=== PATIENT | female | born 1955 | race Caucasian/White ===

== ENCOUNTER 2018-06-09 06:42 | Day surgery (SDC) | payer OTHER ==
--- NOTE | 2018-06-06 11:07 | RAD REPORT ---
EXAM DESCRIPTION: RAD - Chest Pa And Lat (2 Views) - 06/06/2018 11:01 am CLINICAL HISTORY: preop Chest pain. COMPARISON: CHEST SINGLE VIEW dated 11/17/2012; CHEST SINGLE VIEW dated 06/15/2010; CHEST PA AND LAT 2 VIEW dated 06/17/2009 FINDINGS: The lungs are mildly hyperexpanded compatible with COPD. The heart is normal in size. No d isplaced fractures. Hardware plate is present in the cervical spine. IMPRESSION: COPD.
[2018-06-06 11:34] LABS: Hematocrit 39.1 % (36.0-45.0); RBC Red Blood Cell Count 4.58 M/uL (3.86-4.86)
[2018-06-06 11:35] LABS: Absolute Lymphocytes (CBC) 1.4 K/uL (0.7-4.9); Absolute Monocytes 0.6 K/uL (0.1-1.3); Absolute Neutrophil 3.2 K/uL (1.8-8.0); Eosinophils % 2.4 % (0-4.4); Lymphocytes % 26.3 % (15.3-44.8); MPV 8.5 fL (7.6-11.3); Monocytes % 11.6 % (3.3-12.3)
[2018-06-06 11:39] LABS: Protime INR 0.97
[2018-06-06 11:51] LABS: Potassium 4.4 mmol/L (3.5-5.1)
--- NOTE | 2018-06-07 13:58 | EKG ---
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
[2018-06-09] MEDS ORDERED: HEPA 1000U/500MLS 2,000 UNIT/1,000 ML BAG IV ONE (07:02)
[2018-06-09] MEDS ORDERED: LIDOCAINE 1% MPF 5 ML VIAL ONE (07:02)
[2018-06-09] MEDS ORDERED: NA CHLORIDE 0.9% 500 ML ONE (07:22)
[2018-06-09] MEDS ORDERED: MIDAZOLAM HCL 2 MG/2 ML INJ ONE ×2 (07:51→07:57)
[2018-06-09] MEDS ORDERED: ATROPINE SULF 1 MG/10 ML SYR IV ONE (07:52)
[2018-06-09] MEDS ORDERED: NA CHLORIDE 0.9% 0 ML ONE (07:52)
[2018-06-09] MEDS ORDERED: FENTANYL CITR 100 MCG/2 ML ONE (07:52)
[2018-06-09] MEDS ORDERED: HEPARIN 5000 UNIT/ML 1 ML VIAL ONE (08:32)
[2018-06-09] MEDS ORDERED: PRASUGREL (EFFIENT) 10 MG TAB ONE (08:59)
[2018-06-09] MEDS ORDERED: INSULIN -REGULAR HUMAN 50 UNIT/0.5 ML ML ONE ×3 (10:19→12:14)
[2018-06-09 12:22] VITALS: O2SAT 96
[2018-06-09 13:36] VITALS: TEMP 97.4
[2018-06-09 13:38] VITALS: BP 143/70
--- NOTE | 2018-06-09 21:03 | OP ---
Surgeon: Jovany Sánchez MD Additional Attending Physician: Eliud Cage MD. Procedure: Coronary angiography, carotid angiography, angiography of the left subclavian, and succes sful percutaneous transluminal angioplasty and stent of a stenotic left subclavian artery between its origin and the vertebral artery take off. We demonstrated adequate preservation of the vertebral ar tom origin and correction of flow reversal in the left vertebral artery with the stent. Procedure Findings: The patient had normal coronaries, normal carotids. Left subclavian 70% stenosi s. The gradient across it at rest was only 10-15 mmHg. However, there was flow reversal and evidenc e of severe symptoms when the patient became active or used her left arm, so we proceeded with the st ent. We used a JR4 to cannulate the ostium of the left subclavian, passed a Wholey wire across it. It was exchange length. We withdrew the catheter, placed an Omnilink catheter. A 7 x 29 was used. It was inflated to 4 atmospheres fully deployed. The angiographic result was excellent. The very pr oximal part of the stent was post dilated with a 14 x 40 stent. Again, only the very proximal part t hat hung out just a little bit into the aorta was dilated and this resulted in an excellent angiograp hic result. Following this, catheters were withdrawn. 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 Right femoral artery tissues were anesthet ized with lidocaine. The artery was entered using an 18-gauge needle. The artery was cannulated wit h a J-wire. Then, we placed a 4-Venezuelan sheath in. We used a 4-Venezuelan JR4 to angiogram everything. After a decision was made to place a stent, we gave 5000 units of heparin. Replaced the 4-Venezuelan she ath with a 6-Venezuelan sheath using an exchange technique. We crossed the lesion with a J-wire, guided into the ostium using a JR4. We placed the catheter across the lesion. We used biological and radio graphic markers to position it appropriately, inflated, withdrew it, reinflated in the proximal part just to open up the more proximal part a little bit, and then we were able to demonstrate a good arian ographic result using a pigtail catheter in the ascending aorta. No complications from the procedure . SH/JOHAN Voice ID: [id number] Report ID: [id number]
== END 2018-06-09 13:20 | disposition home or self-care (01) ==
LOC: CCL 06:42
PROVIDERS: ATTEND Internal Medicine
DX: I70.8 Atherosclerosis of other arteries (principal); I65.23 Occlusion and stenosis of bilateral carotid arteries; E11.51 Type 2 diabetes mellitus with diabetic peripheral angiopathy without gangrene; I70.208 Unspecified atherosclerosis of native arteries of extremities, other extremity; E78.2 Mixed hyperlipidemia; G40.909 Epilepsy, unspecified, not intractable, without status epilepticus; F32.9 Major depressive disorder, single episode, unspecified; Z79.84 Long term (current) use of oral hypoglycemic drugs; Z79.899 Other long term (current) drug therapy
CPT/HCPCS: 93005; 85025; 80048; 36415; 85610; 82962 ×3; 85730; 71046; 93567; 37236; 35475; 36225; 93454; 36222; C1893; C1760; C1725; J1644; J2250 ×2; J3010; 75716; 93458; J0583

== ENCOUNTER 2019-12-28 23:45 | Emergency (ER) | payer OTHER ==
--- OUTSIDE RECORDS SUMMARY | 2019-12-28 23:48 | XMS REPORT | Continuity of Care Document ---
:1955 Author Organization [employer] Care Team Providers Name Role Phone [employer] Unavailable Un available Problems Problem Status Onset Classification Date Comments Sourc e Date Reported Diabetes mellitus Active Problem 12/12/2019 [facility] (disorder) Neuro Restless legs Active Problem 12/12/2019 Misch [facility] (disorder) Neuro Deep venous Active Problem 12/12/2019 [facility] thrombosis of Neuro lower extremity (disorder) Hyperlipidemia Active Problem 12/12/2019 Misc her (disorder) Neuro Medications Medication Details Route Status Patient Ordering Order Source Instructions Provider Date lamotrigine = 1 tab, Active Mischer 200 MG Oral PO, BID, # 020 Neuro Tablet 180 tab, 3 Refill(s), [facility]: [facility] 2 See No Longer Mischer mg oral tablet Instruction Active 020 Neuro s, TAKE 1 TABLET BY MOUTH 3 TIMES A DAY, # 270 tab, 3 Refill(s), Pharmacy: [facility] 2 See Active Mischer mg oral tablet Instruction 019 Neuro s, TAKE 1 TABLET BY MOUTH 3 TIMES A DAY, # 270 tab, 3 Refill(s), Pharmacy: [facility] lamotrigine = 1 tab, Active Mischer 200 MG Oral PO, BID, # 019 Neuro Tablet 180 tab, 2 Refill(s), Pharmacy: [facility] gabapentin 300 = 2 cap, Active Mischer MG Oral PO, TID, # 019 Neuro Capsule 540 cap, 2 Refill(s), Pharmacy: [facility] Eliquis 5 mg, PO, Active Mischer BID, 0 019 Neuro Refill(s) gabapentin 300 = 2 cap, No Longer Mische r MG Oral PO, TID, # Active 019 Neuro Capsule 540 unknown unit, [id number] gabapentin 300 = 2 cap, No Longer Mische r MG Oral PO, TID, # Active 019 Neuro Capsule 540 unknown unit, Pharmacy: [facility][id number] lamotrigine = 1 tab, Active Mischer 200 MG Oral PO, BID, # 019 Neuro Tablet 60 tab, Refill(s) 5, Pharmacy: [facility] #6725 rOPINIRole 2 See Active Mischer mg oral tablet Instruction 019 Neuro s, TAKE 1 TABLET BY MOUTH 3 TIMES A DAY, # 270 tab, 3 Refill(s), Pharmacy: [facility] 527 lamotrigine = 1 tab, No Longer Mischer 200 MG Oral PO, BID, # Active 019 Neuro Tablet 180 tab, 1 Refill(s), [facility] lamotrigine = 1 tab, Inactive Mischer 200 MG Oral PO, BID, # 019 Neuro Tablet 60 tab, Refill(s) 1, 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, 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: [facility] #[id number] gabapentin 300 600 mg = 2 No Longer Misc her MG Oral cap, PO, Active 018 Neuro Capsule TID, X 90 day, # 540 cap, 3 Refill(s), Pharmacy: [facility]/pharmac y #3701 lamotrigine = 1 tab, No Longer Mischer 200 MG Oral PO, BID, # Active 018 Neuro Tablet 60 tab, Pharmacy: [facility] #[id number] Allergies, Adverse Reactions, Alerts Substance Category Reaction Severity Reaction Status Date Comments S ource type Reported No Known Assertion Drug Misch er Medication allergy Neuro Allergies Immunizations No Data Provided for This Section Results No Data Provided for This Section Pathology Reports No Data Provided for This Section Diagnostic Reports No Data Provided for This Section Consultation Notes No Data Provided for This Section Discharge Summaries No Data Provided for This Section History and Physicals No Data Provided for This Section Vital Signs Vital Sign Value Date Comments Source Height 167.64 cm 04/02/2019 [facility] Weight 84.091 04/02/2019 [facility] BMI Calculated 29.92 04/02/2019 [facility] Systolic (mm Hg) 123 07/03/2018 [facility] Michael ro Diastolic (mm Hg) 77 07/03/2018 [facility] Heart Rate 70 07/03/2018 [facility] Height 165.1 cm 07/03/2018 [facility] Weight 85.909 07/03/2018 [facility] BMI Calculated 31.52 07/03/2018 [facility] Encounters Location Location Encounter Encounter Reason Attending ADM [place] Stat us Source Details Type Number For Provider Date Date Visit [facility] Ambulatory [id number] Miller 05/13 05/13 [facility] Pre-Reg Krell /2017 [facility] [place] [facility] Ambulatory [id number] Miller 05/22 05/22 [facility] Pre-Reg Krell /2017 [facility] [place] MNA Phone [id number] 05/22 05/24 [facility] [facility] [place] [facility] Ambulatory [id number] Miller 05/30 05/30 [facility] Pre-Reg Kre [facility] [place] Outpatient [id number] MILLER 07/03 Active [facility] Yong MNA Ambulatory [id number] Miller 07/03 07/03 [facility] Pre-Reg Kre [facility] [place] [facility] Outpatient [id number] Miller 07/03 07/04 [facility] Krell /2018 [facility] [place] Outpatient [id number] Miller 04/02 Active [facility] Yong MNA Outpatient [id number] Miller 04/02 04/03 [facility] [place] [facility] [place] Outpatient [id number] Miller 12/09 Active [facility] [place] [id number] Miller 12/09 Active [facility] Yong MNA Ambulatory [id number] Eliud 12/09 12/09 [facility] Pre-Reg Fauzia /2019 [facility] [place] [facility] Ambulatory [id number] Eliud 12/09 12/09 [facility] [place] Fauzia /2019 [facility] [place] Procedures Procedure Code Date Perfomer Comments Source Stent placement [id number] [facility] [place] Assessment and Plan No Data Provided for This Section Plan of Care No Data Provided for This Section Social History Social History Date Source Social History TypeResponse 04/02/2019 [facility] o Smoking Status Former smoker; Exposure to Tobacco Smoke Unable to obtain; Cigarette Smoking Last 365 Days Unable to obtain; Reg Smoking Cessation Counseling No; Other Tobacco Frequency Quit 54 yrs ago; entered on: 04/02/19 Family History No Data Provided for This Section Advance Directives No Data Provided for This Section Functional Status No Data Provided for This Section
--- OUTSIDE RECORDS SUMMARY | 2019-12-28 23:48 | XMS REPORT | Continuity of Care Document ---
:1955 Author Organization [facility] t Address [address] [place] [address] Care Team Providers Name Role Phone Samuel Josue Attending Clinician Maggie Anderson Attending Clinician Jason LOPES Attending Clinician Capri Pickard Attending Clinician Salome MEDINA Attending Clinician Nurse, Urgent Care Attending Clinician Unavailable Dc RODRIGUEZ Attending Clinician Doctor Unassigned, Name Attending Clinician Unavailable Salome MEDINA Admitting Clinician Problems Condition Condition Condition Status Onset Resolution Last Treating Co mments Source Name Details Category Date Date Treatment Clinician Date Diabetes Problem Active 2019-12-12 Mem oria mellitus 22:03:10 l (disorder) Diabetes He rmann mellitus (disorder) Active Problem 12/12/2019 [facility] Neuro Restless Problem Active 2019-12-12 Mem oria legs 22:03:10 l (disorder) Restless He rmann legs (disorder) Active Problem 12/12/2019 [facility] Neuro Deep Problem Active 2019-12-12 Memor ia venous 22:03:10 l thrombosis Deep 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 (disorder) of lower extremity (disorder) Active Problem 12/12/2019 [facility] Neuro Hyperlipid Problem Active 2019-12-12 M emoria emia 22:03:10 l (disorder) Guille n Hyperlipid emia (disorder) Active Problem 12/12/2019 [facility] Allergies, Adverse Reactions, Alerts Allergy Allergy Status Severity Reaction(s) Onset Inactive Treating Comm ents Source Name Type Date Date Clinician No Known No Known Active Memori a Medicati Medicati l on on [place] Allergie Allergie s s Social History Smoking Status Start Date Stop Date Source Social History 2019-04-02 15:12:54 2019-04-02 15:12:54 [facility] Medications Ordered Filled Start Stop Current Ordering Indication Dosage Frequency Signature Comments Components Source Medication Medication Date Date Medication? Clinician (SIG) Name Name lamotrigine Yes = 1 tab, Me moria 200 MG Oral 4-03 PO, BID, # l Tablet 20:13: 180 tab, 3 Dianne nn 00 Refill(s), [facility]: [facility] No See Memoria 2 mg oral 3-31 Instructio l tablet 16:36: ns, TAKE 1 Dianne nn 00 TABLET BY MOUTH 3 TIMES A DAY, # 270 tab, 3 Refill(s), Pharmacy: [facility] 2018-06 Yes See Memoria 2 mg oral 0-31 Instructio l tablet 15:26: ns, TAKE 1 Dianne nn 56 TABLET BY MOUTH 3 TIMES A DAY, # 270 tab, 3 Refill(s), Pharmacy: [facility] lamotrigine 2018-06 Yes = 1 tab, Me moria 200 MG Oral 0-31 PO, BID, # l Tablet 15:26: 180 tab, 2 Dianne nn 54 Refill(s), Pharmacy: [facility] gabapentin 2018-06 Yes = 2 cap, Mem oria 300 MG Oral 0-31 PO, TID, # l Capsule 15:26: 540 cap, 2 Herm benedicto 50 Refill(s), Pharmacy: [facility] Eliquis 2018-06 Yes 5 mg, PO, Memor ia 0-31 BID, 0 l 15:12: Refill(s) [place] 00 gabapentin No = 2 cap, Mem oria 300 MG Oral 9-12 PO, TID, # l Capsule 13:17: 540 Yong 36 unknown unit, [id number] gabapentin 2019 No = 2 cap, Mem oria 300 MG Oral 6-04 PO, TID, # l Capsule 20:55: 540 [place] 46 unknown unit, [id number] lamotrigine 2019- Yes = 1 tab, Me moria 200 MG Oral 5-28 PO, BID, # l Tablet 14:34: 60 tab, Yong 36 Refill(s) 5, [id number] rOPINIRole 2018- Yes See Memoria 2 mg oral 1-31 Instructio l tablet 16:20: ns, TAKE 1 Dianne nn 04 TABLET BY MOUTH 3 TIMES A DAY, # 270 tab, 3 Refill(s), Pharmacy: [facility] 527 lamotrigine No = 1 tab, Me moria 200 MG Oral 1-14 PO, BID, # l Tablet 21:52: 180 tab, 1 Dianne nn 09 Refill(s), [facility]acy: [facility] lamotrigine No = 1 tab, Me moria 200 MG Oral 1-14 PO, BID, # l Tablet 21:51: 60 tab, [place] 03 Refill(s) 1, 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, Pharmacy: [id number] gabapentin 2018- No 600 mg = 2 M emoria 300 MG Oral 2-14 cap, PO, l Capsule 23:32: TID, X 90 Dianne nn 12 day, # 540 cap, 3 Refill(s), Pharmacy: [facility] lamotrigine 2018 No = 1 tab, Me moria 200 MG Oral 2-12 PO, BID, # l Tablet 14:58: 60 tab, Yong 59 Pharmacy: [id number] Vital Signs Vital Name Observation Time Observation Value Comments Source Height 2019-04-02 14:35:00 167.64 cm [facility] Yong Weight 2019-04-02 14:35:00 [facility] BMI Calculated 2019-04-02 14:35:00 Baldemar Sheridan Systolic (mm Hg) 2018-07-03 15:46:00 [place] Diastolic (mm Hg) 2018-07-03 15:46:00 Mem orial [place] Heart Rate 2018-07-03 15:46:00 [place] Height 2018-07-03 15:46:00 165.1 cm [place] Weight 2018-07-03 15:46:00 [place] BMI Calculated 2018-07-03 15:46:00 Baldemar Sheridan Procedures Procedure Date / Time Performed Performing Clinician Meme e Stent placement [place] Encounters Start End Encounter Admission Attending Care Care Encounter Source Date/Time Date/Time Type Type Clinicians Facility Department ID 2019-12-10 2019-12-10 Outpatient SHYLA JosueMISCHLYNDA MHMISCHER [id number] 15:15:00 15:15:00 Piotr 07 Samuel 2019-12-10 2019-12-10 Outpatient SHYLA JosueMISCHER MHMISCHER [id number] 09:00:00 09:00:00 Piotr 06 Samuel 2019-09-20 2019-09-20 Emergency [facility] [id number] 12:46:41 16:25:00 Sophia Arredondo [id number] [place] [id number] [place] [id number] [facility] 2019-04-02 2019-04-02 Outpatient JERSEY JosueSCHER MHMISCHER [id number] 09:30:00 23:59:59 Ipotr 05 Samuel 2019-02-17 2019-02-17 Transition Margarette Gomez [id number] 00:00:00 00:00:00 of Care Ivett Greene [id number] [place] [id number] [facility] 2019-02-14 2019-02-15 [facility] [place] [facility] [id number] 19:37:01 10:35:00 Encounter Lorena Mcmahon [id number] [place] [id number] [place] [id number] [facility] 2019-02-14 2019-02-14 Nurse Nurse, Karel [facility] [id number] 19:13:52 19:30:10 Visit Urgent Care [facility] [id number] Surgical [id number] Specialti [id number] es [address] [place] 2019-01-31 2019-01-31 Urgent Dc, ANTWON [id number] 11:25:08 11:40:08 Care [facility] [id number] Surgical [id number] Specialti [id number] es [address] [place] 2019-01-31 2019-01-31 Orders Doctor [facility] [id number] 00:00:00 00:00:00 Only Unassigned, [place] [id number] [place] [facility] [id number] 2018-07-03 2018-07-03 Outpatient JERSEY JosueSCHLYNDA MISCHER [id number] 08:45:00 23:59:59 Piotr 04 Samuel 2018-07-03 2018-07-03 Outpatient JERSEY JosueSCHLYNDA MISCHER [id number] 08:45:00 08:45:00 Piotr 03 Samuel 2018-05-30 2018-05-30 Outpatient Joselo BOBBISCHLYNDA MISCHER [id number] 15:45:00 15:45:00 Piotr Samuel 2018-05-22 2018-05-23 Outpatient BOBBISCHLYNDA MHMISCHER [id number] 15:49:00 23:59:59 2018-05-22 2018-05-22 Outpatient JERSEY JosueSCHER MISCHER [id number] 14:45:00 14:45:00 Piotr Samuel 2018-05-13 2018-05-13 Outpatient JERSEY JosueSCHLYNDA [email or web address]SCHER [id number] 15:30:00 15:30:00 Piotr 00 Samuel Results Test Description Test Time Test Comments Results Result Comments Source POC Glucose 2019-08-07 14:12:56 Test Item Value Reference Range Interpretation Comme nts Glucose POC (test code = 136 mg/dL 70-115 H Not kailyn RN or MDIf you consider your Glucose POC) patient critica lly ill, the Cristopher-Accu Chec k Infrom II meter should not be u sed for Glucose determination. Draw a venous Glucose and send to the main Lab for analysis.
[2019-12-29 01:40] LABS: Protime INR 1.21
[2019-12-29 01:43] LABS: Absolute Lymphocytes (CBC) 2.4 K/uL (0.7-4.9); Basophils % 0.8 % (0-1.3); Hematocrit 39.3 % (36.0-45.0); Lymphocytes % 31.1 % (15.3-44.8); MPV 8.3 fL (7.6-11.3); RBC Red Blood Cell Count 4.52 M/uL (3.86-4.86)
[2019-12-29 01:54] LABS: ALT/SGPT 55 U/L (12-78); AST/SGOT 25 U/L (15-37); Alkaline Phosphatase 203 U/L (45-117); BUN Blood Urea Nitrogen 9 mg/dL (7-18); Bicarbonate 21 mmol/L (21-32); Bilirubin Direct < 0.1 mg/dL (0-0.2); Bilirubin Total 0.2 mg/dL (0.2-1.0); Glucose Level 286 mg/dL (74-106); Magnesium 1.8 mg/dL (1.8-2.4); NT PRO-BNP 30 pg/mL (<125); Potassium 4.3 mmol/L (3.5-5.1); Protein, Total 7.3 g/dL (6.4-8.2); Sodium Level 139 mmol/L (136-145); Troponin (Emerg Dept Use Only) < 0.02 ng/mL (0.0-0.045)
--- NOTE | 2019-12-29 02:54 | EDPHYS ---
Physician Documentation [facility] Name: Christina Isidro Age: 64 yrs Sex: Female : 1955 Arrival Date: 12/28/2019 Time: 23:52 Bed 6 Private MD: ED Physician Gavin Velasquez HPI: 12/28 00:47 This 64 yrs old Female presents to ER via Ambulatory with complaints of ma2 Shortness Of Breath, Low Back Pain, High Blood Pressure, Headache. 00:47 The patient has shortness of breath at rest. Onset: The symptoms/episode began/occurred ma2 gradually, 1 day(s) ago. Associated signs and symptoms: Pertinent negatives: productive cough, diaphoresis, hemoptysis, nausea. Severity of symptoms: At their worst the symptoms were very mild in the emergency department the symptoms have resolved. The patient has not experienced similar symptoms in the past. Historical: - Allergies: 00:09 Lorazepam; ll1 - PMHx: 00:09 CAD; DVT; Pulmonary embolus; ll1 - PSHx: 00:09 stent; ll1 - Immunization history:: Adult Immunizations up to date. - Social history:: Smoking status: Patient denies any tobacco usage or history of. Patient/guardian denies using alcohol, street drugs, tobacco products, Patient/guardian denies using The patient lives with family. - Family history:: not pertinent. ROS: 00:47 Constitutional: Negative for fever, chills, and weight loss. ma2 00:47 All other systems are negative. Exam: 00:47 Constitutional: This is a well developed, well nourished patient who is awake, alert, ma2 and in no acute distress. Eyes: Pupils equal round and reactive to light, extra-ocular motions intact. Lids and lashes normal. Conjunctiva and sclera are non-icteric and not injected. Cornea within normal limits. Periorbital areas with no swelling, redness, or edema. ENT: Nares patent. No nasal discharge, no septal abnormalities noted. Tympanic membranes are normal and external auditory canals are clear. Oropharynx with no redness, swelling, or masses, exudates, or evidence of obstruction, uvula midline. Mucous membranes moist. Neck: Trachea midline, no thyromegaly or masses palpated, and no cervical lymphadenopathy. Supple, full range of motion without nuchal rigidity, or vertebral point tenderness. No Meningismus. Chest/axilla: Normal chest wall appearance and motion. Nontender with no deformity. No lesions are appreciated. Cardiovascular: Regular rate and rhythm with a normal S1 and S2. No gallops, murmurs, or rubs. Normal PMI, no JVD. No pulse deficits. Respiratory: Lungs have equal breath sounds bilaterally, clear to auscultation and percussion. No rales, rhonchi or wheezes noted. No increased work of breathing, no retractions or nasal flaring. Abdomen/GI: Soft, non-tender, with normal bowel sounds. No distension or tympany. No guarding or rebound. No evidence of tenderness throughout. Back: No spinal tenderness. No costovertebral tenderness. Full range of motion. Skin: Warm, dry with normal turgor. Normal color with no rashes, no lesions, and no evidence of cellulitis. MS/ Extremity: Pulses equal, no cyanosis. Neurovascular intact. Full, normal range of motion. Neuro: Awake and alert, GCS 15, oriented to person, place, time, and situation. Cranial nerves II-XII grossly intact. Motor strength 5/5 in all extremities. Sensory grossly intact. Cerebellar exam normal. Normal gait. Vital Signs: 00:05 BP 117 / 76; Pulse 87; Resp 18; Temp 98.4; Pulse Ox 98% ; ll1 00:09 BP 117 / 76 LA; ll1 00:09 BP 130 / 78 RA; ll1 01:00 BP 108 / 78; Pulse 79; Resp 17; Pulse Ox 99% on R/A; rv 01:30 BP 106 / 71; Pulse 75; Resp 16; Pulse Ox 98% on R/A; rv 02:00 BP 101 / 75; Pulse 78; Resp 17; Pulse Ox 97% on R/A; rv MDM: 00:44 Patient medically screened. ma2 00:47 Differential diagnosis: Anxiety Reaction Bronchitis pneumonia, reactive airway disease. ma2 Data reviewed: vital signs, nurses notes. Counseling: I had a detailed discussion with the patient and/or guardian regarding: the historical points, exam findings, and any diagnostic results supporting the discharge/admit diagnosis, the presence of at least one elevated blood pressure reading (>120/80) during this emergency department visit, the need for outpatient follow up. 07/28 00:46 Order name: Basic Metabolic Panel [facility] 12/28 00:46 Order name: CBC with Diff; Complete Time: 02:34 [facility] 12/28 00:46 Order name: LFT's; Complete Time: 02:34 [facility] 12/28 00:46 Order name: Magnesium; Complete Time: 02:34 [facility] 12/28 00:46 Order name: NT PRO-BNP; Complete Time: 02:34 [facility] 12/28 00:46 Order name: PT-INR; Complete Time: 02:34 [facility] 12/28 00:46 Order name: Troponin (emerg Dept Use Only); Complete Time: 02:34 [facility] 12/28 00:46 Order name: XRAY Chest (1 view) [facility] 12/28 00:46 Order name: EKG; Complete Time: 00:47 ma2 12/28 00:46 Order name: COVID-19 [facility] 12/28 00:46 Order name: Flu [facility] 12/28 00:46 Order name: Strep [facility] 12/28 00:46 Order name: Basic Metabolic Panel; Complete Time: 02:34 [facility] 12/28 03:07 Order name: Throat Culture [facility] 12/28 00:46 Order name: Cardiac monitoring; Complete Time: 01:18 [facility] 12/28 00:46 Order name: EKG - Nurse/Tech; Complete Time: 01:18 [facility] 12/28 00:46 Order name: IV Saline Lock; Complete Time: 01:18 [facility] 12/28 00:46 Order name: Labs collected and sent; Complete Time: 01:18 [facility] 12/28 00:46 Order name: O2 Per Protocol; Complete Time: 01:18 [facility] 12/28 00:46 Order name: O2 Sat Monitoring; Complete Time: 01:18 [facility] 12/28 00:46 Order name: Droplet/Contact Precautions; Complete Time: 01:24 ma2 Administered Medications: No medications were administered Disposition: 12/29/19 02:53 Discharged to Home. Impression: Shortness of breath. - Condition is Stable. - Discharge Instructions: Shortness of Breath, [id number]. - Medication Reconciliation Form, Thank You Letter, Antibiotic Education, Prescription Opioid Use form. - Follow up: Private Physician; When: Tomorrow; Reason: Continuance of care. Signatures: Dispatcher [employer] EDGavin Padilla MD MD ma2 Navya Montoya mw2 Kaylie Castaneda RN RN ll1 Corrections: (The following items were deleted from the chart) 03:20 02:53 12/29/2019 02:53 Discharged to Home. Impression: Shortness of breath. Condition mw2 is Stable. Forms are Medication Reconciliation Form, Thank You Letter, Antibiotic Education, Prescription Opioid Use. Follow up: Private Physician; When: Tomorrow; Reason: Continuance of care. ma2
--- NOTE | 2019-12-29 02:54 | ER ---
Nurse's Notes [facility] Name: Christina Isidro Age: 64 yrs Sex: Female : 1955 Arrival Date: 12/28/2019 Time: 23:52 Bed 6 Private MD: Diagnosis: Shortness of breath Presentation: 12/28 00:05 Chief complaint: Patient states: Slight cough with SOB for 3 days. She started taking ll1 bilateral BP's when she started feeling bad, they are unequal in both arms. Has log with her. Coronavirus screen: Patient reports a cough. Patient reports shortness of breath or difficulty breathing. Patient denies measured and/or subjective temperature greater than 100.4F prior to today's visit. Patient denies travel on a cruise ship or to a country the [facility] currently lists as an affected area. Patient denies contact with known and/or suspected case of COVID-19. Patient instructed to continue to wear a mask when interacting with others. Patient moved to private room, placed in contact and droplet isolation with eye protection until further assessment. Ebola Screen: Patient denies travel to an Ebola-affected area in the 21 days before illness onset. Initial Sepsis Screen: Does the patient meet any 2 criteria? No. Patient's initial sepsis screen is negative. Risk Assessment: Do you want to hurt yourself or someone else? Patient reports no desire to harm self or others. Onset of symptoms was December 26, 2019. 00:05 Method Of Arrival: Ambulatory ll1 00:05 Acuity: AARON 3 ll1 02:17 Initial Sepsis Screen: Does the patient have a suspected source of infection? No. rv Patient's initial sepsis screen is negative. Triage Assessment: 02:17 Respiratory: Reports shortness of breath on exertion Onset: The symptoms/episode rv began/occurred yesterday, the patient has mild shortness of breath. Historical: - Allergies: 00:09 Lorazepam; ll1 - PMHx: 00:09 CAD; DVT; Pulmonary embolus; ll1 - PSHx: 00:09 stent; ll1 - Immunization history:: Adult Immunizations up to date. - Social history:: Smoking status: Patient denies any tobacco usage or history of. Patient/guardian denies using alcohol, street drugs, tobacco products, Patient/guardian denies using The patient lives with family. - Family history:: not pertinent. Screenin:16 Abuse screen: Denies threats or abuse. Denies injuries from another. Nutritional rv screening: No deficits noted. Tuberculosis screening: No symptoms or risk factors identified. Fall Risk None identified. Assessment: 01:00 General: Appears comfortable, Behavior is calm, cooperative. rv 01:00 Pain: Complains of pain in back. Neuro: Level of Consciousness is awake, alert, obeys rv commands, Oriented to person, place, time, situation. Cardiovascular: Patient's skin is warm and dry. Rhythm is regular. Respiratory: Airway is patent Respiratory effort is even, unlabored, Breath sounds are clear bilaterally. Derm: Skin is intact. Vital Signs: 00:05 BP 117 / 76; Pulse 87; Resp 18; Temp 98.4; Pulse Ox 98% ; ll1 00:09 BP 117 / 76 LA; ll1 00:09 BP 130 / 78 RA; ll1 01:00 BP 108 / 78; Pulse 79; Resp 17; Pulse Ox 99% on R/A; rv 01:30 BP 106 / 71; Pulse 75; Resp 16; Pulse Ox 98% on R/A; rv 02:00 BP 101 / 75; Pulse 78; Resp 17; Pulse Ox 97% on R/A; rv ED Course: 12/27 23:52 Patient arrived in ED. cf2 12/28 00:07 Triage completed. ll1 00:09 Arm band placed on Patient placed in an exam room, on a stretcher. ll1 00:11 Satya Barber RN is Primary Nurse. rv 00:29 Gavin Velasquez MD is Attending Physician. ma2 01:24 Initial lab(s) drawn, by me, sent to lab. Missed attempt(s): 20 gauge in right forearm. rv 01:47 XRAY Chest (1 view) In Process Unspecified. EDMS 02:16 No provider procedures requiring assistance completed. rv 02:17 Patient has correct armband on for positive identification. Placed in gown. Bed in low rv position. Call light in reach. security monitor on. Pulse ox on. NIBP on. Administered Medications: No medications were administered Outcome: 02:53 Discharge ordered by . ma2 03:20 Patient left the ED. mw2 Addendum: 12/31/2019 12:27 Addendum: COVID-19 Result: Negative result given to RN to notify pt. Attempted to d m5 contact pt regarding negative COVID-19 swab results. Left voice mail. 13:15 Addendum: COVID-19 Result: Negative result given to RN to notify pt. Notified pt of d m5 negative COVID 19 swab results. Pt advised that even with a negative test result they should remain in isolation until symptom free for 3 days without medication. Pt also advised to return to the ED for worsening symptoms. Signatures: Dispatcher [employer] Sujata Farris, RN RN dm5 Gavin Velasquez MD MD ma2 Navya Montoya mw2 Satya Barber RN RN Hemant Dunn 2 Kaylie Castaneda RN RN ll1
[2019-12-29 03:25] VITALS: TEMP 98.4
[2019-12-29 03:30] VITALS: BP 101/75; O2SAT 97
--- NOTE | 2019-12-29 08:32 | RAD REPORT ---
EXAM DESCRIPTION: RAD - Chest Single View - 12/29/2019 1:47 am CLINICAL HISTORY: CONGESTION Chest pain. COMPARISON: Chest Pa And Lat (2 Views) dated 06/06/2018; CHEST SINGLE VIEW dated 11/17/2012; CHEST SING LE VIEW dated 06/15/2010; CHEST PA AND LAT 2 VIEW dated 06/17/2009 FINDINGS: Portable technique limits examination quality. The lungs are grossly clear. The heart is normal in size. No displaced fractures.Hardware is present in the cervical spine. IMPRESSION: No acute intrathoracic process suspected.
--- NOTE | 2019-12-29 10:54 | EKG ---
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
== END 2019-12-29 03:20 | disposition home or self-care (01) ==
LOC: ER 23:45
DX: R06.02 Shortness of breath (principal); Z20.828 Contact with and (suspected) exposure to other viral communicable diseases; Z86.718 Personal history of other venous thrombosis and embolism; Z88.8 Allergy status to other drugs, medicaments and biological substances
CPT/HCPCS: 93005; 87070; 85025; 80048; 36415; 83735; 85610; 80076; 87081; 84484; 83880; 87804 ×2; 71045; 99284; U0001

== ENCOUNTER 2020-01-07 11:43 | Day surgery (SDC) | payer OTHER ==
[2020-01-04 13:14] LABS: Absolute Lymphocytes (CBC) 2.7 K/uL (0.7-4.9); Basophils % 1.1 % (0-1.3); Hematocrit 40.2 % (36.0-45.0); Lymphocytes % 32.4 % (15.3-44.8); RBC Red Blood Cell Count 4.71 M/uL (3.86-4.86)
[2020-01-04 13:18] LABS: Protime INR 1.31
--- NOTE | 2020-01-04 13:22 | RAD REPORT ---
EXAM DESCRIPTION: Jose Francisco Pa And Lat (2 Views)01/04/2020 1:11 pm CLINICAL HISTORY: Cough COMPARISON: December 2019 FINDINGS: Vague 5 millimeter nodular opacity overlies the left upper lobe. Remainder lungs appear clear Heart is normal size IMPRESSION: A vague 5 millimeter nodular opacity overlies left upper lobe. Follow-up chest film in 3 months recommended for re-evaluation
[2020-01-04 13:29] LABS: Potassium 4.3 mmol/L (3.5-5.1)
[~2020-01-07 11:43] MED LIST: HEPA 1000U/500MLS 2,000 UNIT/1,000 ML BAG IV ONE
[2020-01-07] MEDS ORDERED: NA CHLORIDE 0.9% 500 ML ONE (12:23)
[2020-01-07] MEDS ORDERED: MIDAZOLAM HCL 2 MG/2 ML INJ ONE ×2 (12:55→13:27)
[2020-01-07] MEDS ORDERED: ATROPINE SULF 1 MG/10 ML SYR IV ONE (12:56)
[2020-01-07] MEDS ORDERED: FENTANYL CITR 100 MCG/2 ML ONE ×2 (12:56→13:31)
[2020-01-07] MEDS ORDERED: HEPARIN 5000 UNIT/ML 1 ML VIAL ONE (13:11)
[2020-01-07] MEDS ORDERED: NICARDIPINE HCL 25 MG/10 ML IV ONE (13:11)
[2020-01-07] MEDS ORDERED: NITROGLYCERIN 100 MCG/ML SYR (for cath lab use only) IV ONE (13:11)
--- OUTSIDE RECORDS SUMMARY | 2020-01-07 13:27 | XMS REPORT | Continuity of Care Document ---
:1955 Author Organization [facility] t Address [address] [place] [address] Care Team Providers Name Role Phone Samuel Josue Attending Clinician Maggie Andersno Attending Clinician Jason LOPES Attending Clinician Capri [...] Memori a Medicati Medicati l on on Altura Allergie Allergie s s Social History Smoking Status Start Date Stop Date Source Social History 2019-04-02 15:12:54 2019-04-02 15:12:54 [facility] Medications Ordered Filled Start Stop Current Ordering [...] ia 0-31 BID, 0 l 15:12: Refill(s) Yong 00 gabapentin No = 2 cap, Mem oria 300 MG Oral 9-12 PO, TID, # l Capsule 13:17: 540 Yong 36 unknown unit, [id number] gabapentin 2019 No = 2 cap, Mem oria 300 MG Oral 6-04 PO, TID, # l Capsule 20:55: 540 Altura 46 unknown unit, [id number] lamotrigine 2019- Yes = 1 tab, Me moria 200 MG Oral 5-28 PO, BID, # l Tablet 14:34: 60 tab, [place] 36 Refill(s) 5, [id number] rOPINIRole 2018- Yes See Memoria 2 mg oral 1-31 Instructio l tablet 16:20: ns, TAKE 1 Dianne nn 04 TABLET BY MOUTH 3 TIMES A DAY, # 270 tab, 3 Refill(s), Pharmacy: [facility] 527 lamotrigine No = 1 tab, Me moria 200 MG Oral 1-14 PO, BID, # l Tablet 21:52: 180 tab, 1 Dianne nn 09 Refill(s), Pharmacy: [facility] lamotrigine No = 1 tab, Me moria 200 MG Oral 1-14 PO, BID, # l Tablet 21:51: 60 tab, Yong 03 Refill(s) 1, 06/16/18 15:52:09 [employer], Pharmacy: [facility] #[id number] gabapentin 2018- No 600 mg = 2 M emoria 300 MG Oral 2-14 cap, PO, l Capsule 23:32: TID, X 90 Dianne nn 12 day, # 540 cap, 3 Refill(s), Pharmacy: [facility] #[id number] lamotrigine 2018 No = 1 tab, Me moria 200 MG Oral 2-12 PO, BID, # l Tablet 14:58: 60 tab, Altura 59 Pharmacy: [facility] #[id number] Vital Signs Vital Name Observation Time Observation Value Comments Source Height 2019-04-02 14:35:00 167.64 cm [facility] Yong [facility] 2019-04-02 14:35:[facility] Calculated 2019-04-02 14:35:00 Baldemar Sheridan Systolic (mm Hg) 2018-07-03 15:46:00 [place] Diastolic (mm Hg) 2018-07-03 15:46:00 Mem orial Yong Heart Rate 2018-07-03 15:46:00 [place] Height 2018-07-03 15:46:00 165.1 cm [place] Weight 2018-07-03 15:46:00 [place] BMI Calculated 2018-07-03 15:46:00 Baldemar Sheridan Procedures Procedure Date / Time Performed Performing Clinician Meme e Stent placement [place] Encounters Start End Encounter Admission Attending Care Care Encounter Source Date/Time Date/Time Type Type Clinicians Facility Department ID 2019-12-10 2019-12-10 Outpatient SHYLA JosueMISCHLYNDA MHMISCHER [id number] 15:15:00 15:15:00 Piotr 07 Samuel 2019-12-10 2019-12-10 Outpatient SHYLA JosueMISCHER MHMISCHER [id number] 09:00:00 09:00:00 Piotr 06 Samuel 2019-09-20 2019-09-20 Emergency [facility] [id number] 12:46:41 16:25:00 Sophia Arredondo [id number] [place] [id number] [place] [id number] [facility] 2019-04-02 2019-04-02 Outpatient JERSEY JosueSCHER MHMISCHER [id number] 09:30:00 23:59:59 Piotr 05 Samuel 2019-02-17 2019-02-17 Transition Margarette Gomez [id number] 00:00:00 00:00:00 of Care Ivett Greene [id number] Melissa [id number] [facility] 2019-02-14 2019-02-15 [facility] [place] [facility] [id number] 19:37:01 10:35:00 Encounter Lorena Mcmahon [id number] [place] [id number] [place] [id number] [facility] 2019-02-14 2019-02-14 Nurse Nurse, Karel [facility] [id number] 19:13:52 19:30:10 Visit Urgent Care [facility] [id number] Surgical 4.2.7.2.686 Specialti [id number] es [address] [place] 2019-01-31 2019-01-31 Urgent Dc, ANTWON [id number] 11:25:08 11:40:08 Care [facility] [id number] Surgical [id number] Specialti [id number] es [address] [place] 2019-01-31 2019-01-31 Orders Doctor [facility] [id number] 00:00:00 00:00:00 Only Unassigned, CALV[place] [id number] [place] [facility] 4.2.7.2.686 [id number] 2018-07-03 2018-07-03 Outpatient JERSEY JosueSCHLYNDA MISCHER [id number] 08:45:00 23:59:59 Piotr 04 Samuel 2018-07-03 2018-07-03 Outpatient JERSEY JosueSCHLYNDA MISCHER [id number] 08:45:00 08:45:00 Piotr 03 Samuel 2018-05-30 2018-05-30 Outpatient Joselo BOBBISCHLYNDA MISCHER [id number] 15:45:00 15:45:00 Piotr Samuel 2018-05-22 2018-05-23 Outpatient BOBBISCHLYNDA MHMISCHER [id number] 15:49:00 23:59:59 2018-05-22 2018-05-22 Outpatient JERSEY JosueSCHER MISCHER [id number] 14:45:00 14:45:00 Piotr Samuel 2018-05-13 2018-05-13 Out[id number] 15:30:00 15:30:00 Piotr 00 Samuel Results Test [...]
--- OUTSIDE RECORDS SUMMARY | 2020-01-07 13:27 | XMS REPORT | Continuity of Care Document ---
:1955 Author Organization [employer] Care Team Providers Name Role Phone [employer] Unavailable Un available Problems Problem Status Onset [...] Capsule 540 unknown unit, [id number] gabapentin 300 = 2 cap, No Longer Mische r MG Oral PO, TID, # Active 019 Neuro Capsule 540 unknown unit, Pharmacy: [facility] #6725 lamotrigine = 1 tab, Active Mischer 200 MG Oral PO, BID, # 019 Neuro Tablet 60 tab, Refill(s) 5, Pharmacy: [facility] #6725 rOPINIRole 2 See Active Mischer mg oral tablet Instruction 019 Neuro s, TAKE 1 TABLET BY MOUTH 3 TIMES A DAY, # 270 tab, 3 Refill(s), Pharmacy: [facility] 527 lamotrigine = 1 tab, No Longer Mischer 200 MG Oral PO, BID, # Active 019 Neuro Tablet 180 tab, 1 Refill(s), [facility] lamotrigine = 1 tab, Inactive Mischer 200 MG Oral PO, BID, # 019 Neuro Tablet 60 tab, Refill(s) 1, 06/16/18 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, Pharmacy: [facility] #6725 gabapentin 300 600 mg = 2 No Longer Misc her MG Oral cap, PO, Active 018 Neuro Capsule TID, X 90 day, # 540 cap, 3 Refill(s), Pharmacy: [facility] #3701 lamotrigine = 1 tab, No Longer Mischer 200 MG Oral PO, BID, # Active 018 Neuro Tablet 60 tab, Pharmacy: [facility] #3701 Allergies, Adverse Reactions, Alerts Substance [...] Date Comments Source Height 167.64 [facility] 84.091 [facility]2019 [facility] BMI Calculated 29.92 04/02/2019 [facility] Systolic (mm Hg) 123 07/03/2018 [facility] Michael ro Diastolic (mm Hg) 77 07/03/2018 [facility] Heart Rate 70 07/03/2018 [facility] Height 165.1 cm 07/03/2018 [facility] Weight 85.909 07/03/2018 [facility] BMI Calculated 31.52 07/03/2018 [facility] Encounters Location Location Encounter Encounter Reason Attending ADM [place] Stat us Source Details Type Number For Provider Date Date Visit [facility] Amb[facility] [id number] [facility]13 05[facility] [place] [facility] Amb[facility] [id number] Miller 05/22 05[facility]22 [facility] Krell [facility]2017 [facility] [place] [facility] Phone [id number] 05/22 05/24 [place] [facility] [place]rology [facility] [place] [facility] Ambulatory [id number] Miller 05/30 05/30 [facility] Kre [facility] [place] Outpatient [id number] MILLER 07/03 Active [facility] [place] [facility] Ambulatory [id number] Miller 07/03 07/03 [facility] [place] [facility] Outpatient [id number] Miller 07/03 07/04 [facility] Krell /2018 [facility] [place] Outpatient [id number] Miller 04/02 Active [facility] [place] [facility] Outpatient [id number] Miller 04/02 04/03 [facility] Krell [facility] [place] Out[place] [id number] Miller 12/09 Active [facility] [place] Outpatient [id number] Miller 12/09 Active [facility] Yong MNA Ambulatory [id number] Eliud 12/09 12/09 [facility] Fauzia /2019 [facility] [place] [facility] Ambulatory [id number] Eliud 12/09 12/09 [facility] [place] Fauzia /2019 [place] Procedures Procedure Code Date Perfomer Comments Source Stent placement [id number] [facility] [place] Assessment and Plan No Data Provided for This Section Plan of Care No Data Provided for This Section Social History Social History Date Source Social History TypeResponse 04[facility]02/2019 [facility] Smoking Status Former smoker; Exposure [...]
[2020-01-07] MEDS ORDERED: HEPARIN 10,000 UNIT/10 ML VIAL IV ONE (13:37)
[2020-01-07] MEDS ORDERED: CLOPIDOGREL 75 MG TABLET ONE ×2 (13:49→13:50)
[2020-01-07] MEDS ORDERED: ASPIRIN 325 MG TAB ONE (14:06)
[2020-01-07 16:03] VITALS: TEMP 96.8
[2020-01-07 17:31] VITALS: BP 132/66; O2SAT 97
--- NOTE | 2020-01-08 00:40 | OP ---
Date of Procedure: 01/07/2020 Surgeon: TRINA JUNIOR Procedures Performed: 1.Selective left subclavian angiogram. 2.Balloon angioplasty of severe left subclavian in-stent restenosis, more than 95% stenosis. We use d 7.0 x 40 mm [place] balloon. The stenosis severity was 95%. Stenosis length was close to 15 mm. T he residual stenosis post angioplasty is 0%. Indication For Procedure: Severe left subclavian artery stenosis with significant arm pain and diffe rence in pressure of left upper and right upper extremity. Anesthesia: Total sedation time was 30 minutes. Complications: None. Bleeding: Less than 5 mL. Access: Left radial artery 6-Ivorian, closed with TR band. Description Of Procedure: After risks, benefits, and alternatives were explained to the patient, she agreed to the procedure and signed informed consent and we took the patient to the cardiac catheteri zation laboratory, prepped and draped in usual sterile fashion and then we used the pediatric micropu ncture kit, accessed the left radial artery and inserted 6-Ivorian slender sheath. Then, we took a 6- [place]vor[place] JR4 catheter over a J-wire into the subclavian artery and we did an angiogram. We found more than 95% occlusion of the proximal portion of the proximal left subclavian stent. The wire would not go through. Then, we took a run-through wire through the JR4 catheter and we crossed the stenosis a nd we passed the catheter through and the pressure at that time recorded in the aorta before the arian oplasty was 134/70 with mean of 96 and the pressure in the subclavian after the area of stenosis was 86/55 with a mean of 70 mmHg, significant difference of pressure gradient. We decided to proceed wit h angioplasty. Intervention Details: The patient was given systemic heparin to assure ACT level above 250 and then we took the JR4 catheter back over the run-through wire into the ascending aorta and then we subseque ntly exchanged run-through wire for the exchange J-wire and then we removed the diagnostic catheter a nd we took the 7 mm x 40 mm [place] balloon over the J-wire and positioned it across the stenosis and inflation up to 10 atmospheres, which would give a size of 7.4 mm. We expanded the stenotic area, an d then post inflation, the angiogram showed 0% residual stenosis. Pressures post angioplasty, aortic pressure was 146/73 with a mean of 103 and pressure in the subclavian artery after stent was 150/69 with a mean of 103, indicating successful intervention with 0% residual stenosis. Conclusions: Severe proximal left subclavian in-stent stenosis with significant pressure gradient, s tatus post successful balloon angioplasty as outlined above. Recommendations: 1.The patient was loaded with 600 mg of Plavix. We will continue 75 mg a day, aspirin 81 mg a day a long with the Eliquis, triple therapy for 1 month and then to drop off the aspirin. 2.High dose statin. 3.After discharge criteria are met, the patient can be sent home and to follow up with me in the off ice in 1 week. Report any bleeding. SR/MODL Voice ID: [id number] Report ID: [id number]
== END 2020-01-07 18:27 | disposition home or self-care (01) ==
LOC: CCL 11:43
PROVIDERS: ATTEND Internal Medicine
PROC: 03743ZZ Dilation of Left Subclavian Artery, Percutaneous Approach (ICD-10-PCS; principal; 2020-01-07)
DX: I77.1 Stricture of artery (principal); T82.856A Stenosis of peripheral vascular stent, initial encounter; I10 Essential (primary) hypertension; I65.23 Occlusion and stenosis of bilateral carotid arteries; E78.5 Hyperlipidemia, unspecified; E11.9 Type 2 diabetes mellitus without complications; Z11.59 Encounter for screening for other viral diseases; Z79.82 Long term (current) use of aspirin; Z88.8 Allergy status to other drugs, medicaments and biological substances
CPT/HCPCS: 85025; 80048; 36415; 85610; 82947 ×2; 85347; 85730; 71046; 36225; 37246; U0002; C1893; C1725; J1644 ×2; J2250 ×2; J3010; J7040; 35475

== ENCOUNTER 2020-11-25 02:43 | Emergency (ER) | payer OTHER ==
--- OUTSIDE RECORDS SUMMARY | 2020-11-25 02:47 | XMS REPORT | Continuity of Care Document ---
:1955 Author Organization [facility] t Address [address] [place] [address] Care Team Providers Name Role Phone Samuel Josue Attending Clinician Grupo Ramirez Attending Clinician [phone] Dallin Ríos DO Attending Clinician Barbara LOPES, M Attending Clinician Maggie Anderson Attending Clinician Doctor Unassigned, Name Attending Clinician Unavailable Jason LOPES Attending Clinician Capri Pickard Attending Clinician Salome MEDINA Attending Clinician Nurse, Urgent Care Attending Clinician Unavailable Dc RODRIGUEZ Attending Clinician Salome MEDINA Admitting Clinician Problems Condition Condition Condition Status Onset Resolution Last Treating Co mments Source Name Details Category Date Date Treatment Clinician Date Diabetes Problem Active 2020-10-07 Mem oria mellitus 21:33:42 l (disorder) Diabetes He rmann mellitus (disorder) Active Problem 10/07/2020 [facility] Restless Problem Active 2020-10-07 Mem oria legs 21:33:42 l (disorder) Restless He rmann legs (disorder) Active Problem 10/07/2020 [facility] Deep Problem Active 2020-10-07 Memor ia venous 21:33:42 l thrombosis Deep 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 (disorder) of lower extremity (disorder) Active Problem 10/07/2020 [facility] Hyperlipid Problem Active 2020-10-07 M emoria emia 21:33:42 l (disorder) Guille n Hyperlipid emia (disorder) Active Problem 10/07/2020 [facility] Disease Problem Active 2020-10-07 Juan srikanth caused by 21:33:42 l 2019-nCoV Disease Herm benedicto caused by 2018-nCoV Active Problem 10/07/2020 [facility] Allergies, Adverse Reactions, Alerts Allergy Allergy Status Severity Reaction(s) Onset Inactive Treating Comm ents Source Name Type Date Date Clinician No Known No Known Active Memori a Medicati Medicati l on on [place] Allergie Allergie s s Social History Smoking Status Start Date Stop Date Source Social History 2020-06-15 01:09:53 2020-06-15 01:09:53 [facility] Medications Ordered Filled Start Stop Current Ordering Indication Dosage Frequency Signature Comments Components Source Medication Medication Date Date Medication? Clinician (SIG) Name Name rOPINIRole Yes = 1 tab, Mem oria 2 mg oral 1-12 PO, TID, # l tablet 20:12: 270 ea, 1 Guille n 00 Refill(s), Pharmacy: [facility], 167.64, cm, 04/02/19 10:11:00 CDT, Height, 84.091, kg, 04/02/19 10:11:00 CDT, Weight gabapentin Yes = 2 cap, Mem oria 300 MG Oral 1-12 PO, TID, # l Capsule 20:12: 540 cap, 1 Herm benedicto 00 Refill(s), Pharmacy: [facility], 167.64, cm, 04/02/19 10:11:00 CDT, Height, 84.091, kg, 04/02/19 10:11:00 CDT, Weight lamotrigine Yes = 1 tab, Me moria 200 MG Oral 4-03 PO, BID, # l Tablet 20:13: 180 tab, 3 Dianne nn 00 Refill(s), [facility] rOPINIRole No See Memoria 2 [...] ia 0-31 BID, 0 l 15:12: Refill(s) [place] 00 gabapentin No = 2 cap, Mem oria 300 MG Oral 9-12 PO, TID, # l Capsule 13:17: 540 [place] 36 unknown unit, Pharmacy: [facility] #[id number] gabapentin No = 2 cap, Mem oria 300 MG Oral 6-04 PO, TID, # l Capsule 20:55: 540 [place] 46 unknown unit, Pharmacy: [facility] #[id number] lamotrigine Yes = 1 tab, Me moria 200 MG Oral 5-28 PO, BID, # l Tablet 14:34: 60 tab, [place] 36 Refill(s) 5, Pharmacy: [facility] #[id number] rOPINIRole Yes See Memoria 2 mg oral 1-31 Instructio l tablet 16:20: ns, TAKE 1 Dianne nn 04 TABLET BY MOUTH 3 TIMES A DAY, # 270 tab, 3 Refill(s), Pharmacy: [place] [id number] lamotrigine No = 1 tab, Me moria 200 MG Oral 1-14 PO, BID, # l Tablet 21:52: 180 tab, 1 Dianne nn 09 Refill(s), Pharmacy: [facility] lamotrigine 2018- No = 1 tab, Me moria 200 MG Oral 1-14 PO, BID, # l Tablet 21:51: 60 tab, [place] 03 Refill(s) 1, 06/16/18 15:52:09 [employer], Pharmacy: [facility] #[id number] gabapentin 2017- No 600 mg = 2 M emoria 300 MG Oral 2-14 cap, PO, l Capsule 23:32: TID, X 90 Dianne nn 12 day, # 540 cap, 3 Refill(s), Pharmacy: [facility] #[id number] lamotrigine 2017-06 No = 1 tab, Me moria 200 MG Oral 2-12 PO, BID, # l Tablet 14:58: 60 tab, [place] 59 Pharmacy: [facility] #[id number] Vital Signs Vital Name Observation Time Observation Value Comments Source Height 2019-04-02 14:35:00 167.64 cm [facility] Weight 2019-04-02 14:35:00 [facility] BMI Calculated 2019-04-02 14:35:00 Memori al Yong Systolic (mm Hg) 2018-07-03 15:46:00 Juan riaedilberto [place] Diastolic (mm Hg) 2018-07-03 15:46:00 Mem orial Yong Heart Rate 2018-07-03 15:46:00 [facility] Height 2018-07-03 15:46:00 165.1 cm [facility] Weight 2018-07-03 15:46:00 [facility] BMI Calculated 2018-07-03 15:46:00 Memori al Yong Procedures Procedure Date / Time Performed Performing Clinician [facility] Stent placement [facility] Encounters Start End Encounter Admission Attending Care Care Encounter Source Date/Time Date/Time Type Type Clinicians Facility Department ID 2020-10-05 2020-10-05 [id number] 10:15:00 10:15:00 Piotr Baker 2020-09-08 2020-09-08 Outpatient KAREN Ramirez [id number] 00:00:00 00:00:00 Maribell [id number] Grupo [id number] 2020-08-08 2020-08-08 Patient [place] [facility] [id number] 00:00:00 00:00:00 Outreach Prudencio OLIVIA [id number] [facility] [id number] [place] [id number] 2020-06-14 2020-06-14 Outpatient Joselo, MHMISCHER MHMISCHER [id number] 13:15:00 23:59:59 Piotr 09 [facility] 2020-06-08 2020-06-08 Outpatient Joselo, MHMISCHER MHMISCHER [id number] 09:15:00 09:15:00 Piotr 08 [facility] 2020-02-17 2020-02-17 Patient JimenezKamalagabriele [id number] 00:00:00 00:00:00 Outreach Kelsey Greene [id number] [place] [id number] 2020-02-14 2020-02-14 [facility] [id number] 14:26:00 16:05:00 Sophia Arredondo [id number] [place] [id number] [place] [id number] 2020-02-14 2020-02-14 Orders Doctor RUIZ [id number] 00:00:00 00:00:00 Only Unassigned, CALVIN [id number] [place] [facility] 4.2.7.2.686 [id number] 2019-12-10 2019-12-10 Outpatient Joselo, MHMISCHER MHMISCHER [id number] 15:15:00 15:15:00 Piotr 07 Samuel 2019-12-10 2019-12-10 Outpatient Joselo, MHMISCHER MHMISCHER [id number] 09:00:00 09:00:00 Piotr 06 [facility] 2019-09-20 2019-09-20 Emergency [facility] [id number] 12:46:41 16:25:00 Sophia Arredondo [id number] [place] 4.2.7.2.686 [place] [id number] 2019-04-02 2019-04-02 Outpatient KATIE JosueSCHER [id number] 09:30:00 23:59:59 Piotr 05 Samuel 2019-02-17 2019-02-17 Transition Margarette Gomez [id number] 00:00:00 00:00:00 of Care Ivett Rickettsy [id number] [place] [id number] 2019-02-14 2019-02-15 [facility] [place] [facility] [id number] 19:37:01 10:35:00 Encounter Lorena Mcmahon [id number] [place] 4.2.7.2.686 [place] [id number] 2019-02-14 2019-02-14 Nurse NurseKarel [facility] [id number] 19:13:52 19:30:10 Visit [facility] [id number] Surgical [id number] Specialti [id number] es [address] [place] 2019-01-31 2019-01-31 [facility] [id number] 11:25:08 11:40:08 Care [facility] [id number] Surgical 4.2.7.2.686 Specialti [id number] es [address] [place] 2019-01-31 2019-01-31 Orders Doctor SARA [id number] 00:00:00 00:00:00 Only Unassigned, CALVIN [id number] [place] [facility] 4.2.7.2.686 [id number] 2018-07-03 2018-07-03 Outpatient KATIE JosueSCHER [id number] 08:45:00 23:59:59 Piotr 04 Samuel 2018-07-03 2018-07-03 Outpatient KATIE JosueSCHER [id number] 08:45:00 08:45:00 Piotr 03 Samuel 2018-05-30 2018-05-30 [id number] 15:45:00 15:45:00 Piotr Samuel 2018-05-22 2018-05-23 Outpatient [facility] [id number] 15:49:00 23:59:59 2018-05-22 2018-05-22 [id number] 14:45:00 14:45:00 Piotr Samuel 2018-05-13 2018-05-13 [facility] [id number] 15:30:00 15:30:00 Piotr Samuel Results Test Description Test Time Test Comments Results Result Comments Source POC Glucose 2019-08-07 14:12:56 Test Item Value Reference Range Interpretation Comme nts Glucose POC (test code = 136 mg/dL 70-115 H Not kailyn RN or MDIf you consider your Glucose POC) patient critica taylor aguilar, the Cristopher-Accu Chec k Infrom II meter should not be u sed for Glucose determination. Draw a venous Glucose and send to the main Lab for analysis.
[2020-11-25 03:11] LABS: Absolute Lymphocytes (CBC) 1.3 K/uL (0.7-4.9); Basophils % 0.6 % (0-1.3); Lymphocytes % 18.6 % (15.3-44.8); MPV 8.2 fL (7.6-11.3); RBC Red Blood Cell Count 4.49 M/uL (3.86-4.86)
[2020-11-25 03:24] LABS: Protime INR 0.92
[2020-11-25 03:47] LABS: ALT/SGPT 36 U/L (12-78); AST/SGOT 17 U/L (15-37); Albumin 3.6 g/dL (3.4-5.0); Alkaline Phosphatase 158 U/L (45-117); BUN Blood Urea Nitrogen 16 mg/dL (7-18); Bicarbonate 27 mmol/L (21-32); Bilirubin Direct < 0.1 mg/dL (0-0.2); Bilirubin Total 0.3 mg/dL (0.2-1.0); Glucose Level 239 mg/dL (74-106); Magnesium 1.7 mg/dL (1.8-2.4); NT PRO-BNP 30 pg/mL (<125); Potassium 4.1 mmol/L (3.5-5.1); Protein, Total 6.9 g/dL (6.4-8.2); Sodium Level 137 mmol/L (136-145); Troponin (Emerg Dept Use Only) < 0.02 ng/mL (0.0-0.045)
--- NOTE | 2020-11-25 04:53 | EDPHYS ---
Physician Documentation [facility] Name: Christina Isidro Age: 65 yrs Sex: Female : 1955 Arrival Date: 11/25/2020 Time: 02:47 Bed 7 Private MD: ED Physician Jesus Elizabeth HPI: 11/25 04:41 This 65 yrs old Female presents to ER via EMS with complaints of Dizziness. janneth 04:41 The patient presents with dizziness, sense of spinning. Onset: The symptoms/episode janneth began/occurred just prior to arrival, this morning. Context: occurred while the patient was getting up from bed, just prior to the episode the patient experienced no apparent symptoms. Modifying factors: The symptoms are alleviated by closing eyes, holding head still, lying down, the symptoms are aggravated by movement of head. Associated signs and symptoms: The patient has no apparent associated signs or symptoms. Severity of symptoms: At their worst the symptoms were moderate in the emergency department the symptoms have improved moderately. Patient's baseline: Neuro: alert and fully oriented. The patient has not experienced similar symptoms in the past. Historical: - Allergies: 02:50 Lorazepam; em - PMHx: 02:50 CAD; DVT; pulmonary embolus; Diabetes - IDDM; em - PSHx: 02:50 None; em - Immunization history:: Adult Immunizations up to date. - Social history:: Smoking status: Patient denies any tobacco usage or history of. ROS: 04:44 Constitutional: Negative for fever, chills, and weight loss, Eyes: Negative for injury, janneth pain, redness, and discharge, ENT: Negative for injury, pain, and discharge, Neck: Negative for injury, pain, and swelling, Cardiovascular: Negative for chest pain, palpitations, and edema, Respiratory: Negative for shortness of breath, cough, wheezing, and pleuritic chest pain, Abdomen/GI: Negative for abdominal pain, nausea, vomiting, diarrhea, and constipation, Back: Negative for injury and pain, : Negative for injury, bleeding, discharge, and swelling, MS/Extremity: Negative for injury and deformity, Skin: Negative for injury, rash, and discoloration, Psych: Negative for depression, anxiety, suicide ideation, homicidal ideation, and hallucinations, Allergy/Immunology: Negative for hives, rash, and allergies, Endocrine: Negative for neck swelling, polydipsia, polyuria, polyphagia, and marked weight changes, Hematologic/Lymphatic: Negative for swollen nodes, abnormal bleeding, and unusual bruising. 04:44 Neuro: Positive for dizziness. 04:56 Cardiovascular: Negative for chest pain, edema, orthopnea, palpitations, paroxysmal janneth nocturnal dyspnea, acute changes. Exam: 04:44 Constitutional: This is a well developed, well nourished patient who is awake, alert, janneth and in no acute distress. Eyes: Pupils equal round and reactive to light, extra-ocular motions intact. Lids and lashes normal. Conjunctiva and sclera are non-icteric and not injected. Cornea within normal limits. Periorbital areas with no swelling, redness, or edema. ENT: Nares patent. No nasal discharge, no septal abnormalities noted. Tympanic membranes are normal and external auditory canals are clear. Oropharynx with no redness, swelling, or masses, exudates, or evidence of obstruction, uvula midline. Mucous membranes moist. Neck: Trachea midline, no thyromegaly or masses palpated, and no cervical lymphadenopathy. Supple, full range of motion without nuchal rigidity, or vertebral point tenderness. No Meningismus. Chest/axilla: Normal chest wall appearance and motion. Nontender with no deformity. No lesions are appreciated. Cardiovascular: Regular rate and rhythm with a normal S1 and S2. No gallops, murmurs, or rubs. Normal PMI, no JVD. No pulse deficits. Respiratory: Lungs have equal breath sounds bilaterally, clear to auscultation and percussion. No rales, rhonchi or wheezes noted. No increased work of breathing, no retractions or nasal flaring. Abdomen/GI: Soft, non-tender, with normal bowel sounds. No distension or tympany. No guarding or rebound. No evidence of tenderness throughout. Back: No spinal tenderness. No costovertebral tenderness. Full range of motion. Female : Normal external genitalia. Skin: Warm, dry with normal turgor. Normal color with no rashes, no lesions, and no evidence of cellulitis. MS/ Extremity: Pulses equal, no cyanosis. Neurovascular intact. Full, normal range of motion. Neuro: Awake and alert, GCS 15, oriented to person, place, time, and situation. Cranial nerves II-XII grossly intact. Motor strength 5/5 in all extremities. Sensory grossly intact. Cerebellar exam normal. Normal gait. Psych: Awake, alert, with orientation to person, place and time. Behavior, mood, and affect are within normal limits. 04:44 Head/face: Noted is hematoma, swelling, that is mild, of the left eye. 04:47 ECG was reviewed by the Attending Physician. janneth 04:49 Eyes: Nystagmus: nystagmus with fast component noted, bilaterally. janneth 04:49 Musculoskeletal/extremity: DVT Exam: No signs of deep vein thrombosis. no pain, no swelling, no tenderness, negative Homans' sign noted on exam, no appreciated bluish discoloration, no erythema, no increased warmth. 04:49 Skin: Exam negative for Appearance: Vital Signs: 02:47 BP 149 / 69; Pulse 74; Resp 18; Temp 97.6; Pulse Ox 98% on R/A; Weight 83.91 kg; Height em 5 ft. 5 in. (165.10 cm); Pain 0/10; 04:52 BP 135 / 72; Pulse 74; Resp 18; Pulse Ox 100% on R/A; ak2 02:47 Body Mass Index 30.79 (83.91 kg, 165.10 cm) em MDM: 02:51 Patient medically screened. janneth 04:46 Differential diagnosis: cardiac arrhythmia, CVA, generalized weakness, GI bleed, head janneth injury, hypovolemia, idiopathic dizziness, TIA, vertigo. Data reviewed: vital signs, nurses notes, lab test result(s), EKG, radiologic studies, CT scan, plain films. Data interpreted: clinical research monitor: rate is 74 beats/min, rhythm is regular. Test interpretation: by ED physician or midlevel provider: ECG, plain radiologic studies. Counseling: I had a detailed discussion with the patient and/or guardian regarding: the historical points, exam findings, and any diagnostic results supporting the discharge/admit diagnosis, lab results, radiology results, the need for outpatient follow up, for definitive care, a family practitioner, a neurologist. 11/25 02:53 Order name: Basic Metabolic Panel em 11/25 02:53 Order name: CBC with Diff 11/25 02:53 Order name: LFT's em 11/25 02:53 Order name: Magnesium; Complete Time: 04:40 em 11/25 02:53 Order name: NT PRO-BNP; Complete Time: 04:40 11/25 02:53 Order name: PT-INR; Complete Time: 04:40 11/25 02:53 Order name: Troponin (emerg Dept Use Only); Complete Time: 04:40 11/25 02:53 Order name: XRAY Chest (1 view) 11/25 02:53 Order name: Basic Metabolic Panel; Complete Time: 04:40 EDMS 11/25 02:53 Order name: CBC with Automated Diff; Complete Time: 04:40 EDTX 11/25 02:53 Order name: Liver (Hepatic) Function; Complete Time: 04:40 EDMS 11/25 03:02 Order name: CT Head C Spine [facility] 11/25 03:04 Order name: Urine Culture [facility] 11/25 02:53 Order name: EKG; Complete Time: 02:54 11/25 02:53 Order name: Cardiac monitoring 11/25 02:53 Order name: EKG - Nurse/Tech 11/25 02:53 Order name: IV Saline Lock 11/25 02:53 Order name: Labs collected and sent 11/25 02:53 Order name: O2 Per Protocol 11/25 02:53 Order name: O2 Sat Monitoring 11/25 03:04 Order name: Urine Dipstick-Ancillary (obtain specimen) [facility] 11/25 04:44 Order name: Ice pack janneth EC:47 Rate is 74 beats/min. Rhythm is regular. QRS [place] is Normal. ND interval is normal. QRS janneth interval is normal. QT interval is normal. No Q waves. T waves are Normal. No ST changes noted. Clinical impression: NSR w/ Non-specific ST/T Changes and No evidence of ischemia. Reviewed by me. Administered Medications: 04:48 Drug: Magnesium Sulfate 1 grams Route: IVPB; Infused Over: 20 hrs; Site: right ak2 antecubital; 04:48 Drug: Meclizine 25 mg Route: PO; ak2 Disposition: 11/25/20 04:52 Discharged to Home. Impression: Vertiginous syndromes in diseases classified elsewhere, unspecified ear, Dizziness and giddiness, Type 1 diabetes mellitus. - Condition is Stable. - Discharge Instructions: Benign Positional Vertigo, Dizziness, Vertigo, Dizziness, [id number], Type 1 Diabetes Mellitus, Diagnosis, Adult, Pzmz-[id number]. - Prescriptions for Meclizine 25 mg Oral Tablet - take 1 tablet by ORAL route every 8 hours As needed; 30 tablet. Zofran 4 mg Oral Tablet - take 1 tablet by ORAL route every 12 hours As needed; 20 tablet. - Medication Reconciliation Form, Thank You Letter, Antibiotic Education, Prescription Opioid Use form. - Follow up: Private Physician; When: 2 - 3 days; Reason: Recheck today's complaints, Re-evaluation by your physician. Follow up: Elie Love MD; When: 2 - 3 days; Reason: Recheck today's complaints, Continuance of care, Re-evaluation by your physician. - Problem is new. - Symptoms have improved. Signatures: Dispatcher [employer] [facility] Jesus Elizabeth MD MD cha Munoz, Edgar, RN RN Russell [facility]ir [facility] Corrections: (The following items were deleted from the chart) 03:19 02:54 Head Brain Wo Cont+CT.RAD.BRZ ordered. [facility] 05:31 04:52 11/25/2020 04:52 Discharged to Home. Impression: Vertiginous syndromes in ak2 diseases classified elsewhere, unspecified ear; Dizziness and giddiness; Type 1 diabetes mellitus. Condition is Stable. Forms are Medication Reconciliation Form, Thank You Letter, Antibiotic Education, Prescription Opioid Use. Follow up: Private Physician; When: 2 - 3 days; Reason: Recheck today's complaints, Re-evaluation by your physician. Follow up: Elie Love; When: 2 - 3 days; Reason: Recheck today's complaints, Continuance of care, Re-evaluation by your physician. Problem is new. Symptoms have improved. janneth
--- NOTE | 2020-11-25 04:53 | ER ---
Nurse's Notes [facility] Name: Christina Isidro Age: 65 yrs Sex: Female : 1955 Arrival Date: 11/25/2020 Time: 02:47 Bed 7 Private MD: Diagnosis: Vertiginous syndromes in diseases classified elsewhere, unspecified ear;Dizziness and giddiness;Type 1 diabetes mellitus Presentation: 11/25 02:47 Chief complaint: EMS states: has been dizzy for the past 2 days, fell and hit left side em of head, bruising and hematoma noted, denies taking blood thinners. Coronavirus screen: Client denies travel out of the [place] in the last 14 days. Ebola Screen: Patient negative for fever greater than or equal to 101.5 degrees Fahrenheit, and additional compatible Ebola Virus Disease symptoms Patient denies exposure to infectious person. Patient denies travel to an Ebola-affected area in the 21 days before illness onset. No symptoms or risks identified at this time. Initial Sepsis Screen: Does the patient meet any 2 criteria? No. Patient's initial sepsis screen is negative. Does the patient have a suspected source of infection? No. Patient's initial sepsis screen is negative. Risk Assessment: Do you want to hurt yourself or someone else? Patient reports no desire to harm self or others. Onset of symptoms was November 25, 2020. 02:47 Method Of Arrival: EMS: [facility] 02:47 Acuity: AARON 3 em Triage Assessment: 02:53 General: Appears in no apparent distress. Behavior is calm, cooperative. Pain: Denies ak2 pain. Historical: - Allergies: 02:50 Lorazepam; em - PMHx: 02:50 CAD; DVT; pulmonary embolus; Diabetes - IDDM; em - PSHx: 02:50 None; em - Immunization history:: Adult Immunizations up to date. - Social history:: Smoking status: Patient denies any tobacco usage or history of. Screenin:54 Abuse screen: Denies threats or abuse. Denies injuries from another. Nutritional ak2 screening: No deficits noted. Tuberculosis screening: No symptoms or risk factors identified. Fall Risk None identified. Assessment: 02:53 General: Appears in no apparent distress. Pain: Denies pain. Neuro: Reports dizziness, ak2 since x2 days. Cardiovascular: No deficits noted. Respiratory: No deficits noted. Injury Description: Bruise sustained to face. 04:52 Reassessment: Patient and/or family updated on plan of care and expected duration. Pain ak2 level reassessed. Vital Signs: 02:47 BP 149 / 69; Pulse 74; Resp 18; Temp 97.6; Pulse Ox 98% on R/A; Weight 83.91 kg; Height em 5 ft. 5 in. (165.10 cm); Pain 0/10; 04:52 BP 135 / 72; Pulse 74; Resp 18; Pulse Ox 100% on R/A; ak2 02:47 Body Mass Index 30.79 (83.91 kg, 165.10 cm) em ED Course: 02:47 Patient arrived in ED. em 02:49 Triage completed. em 02:50 Arm band placed on. em 02:51 Jesus Elizabeth MD is Attending Physician. [facility] 02:53 Russell Lopez is Primary Nurse. ak2 02:54 Patient has correct armband on for positive identification. ak2 02:54 No provider procedures requiring assistance completed. Inserted saline lock: 20 gauge ak2 in right antecubital area, using aseptic technique. 03:09 XRAY Chest (1 view) In Process Unspecified. EDMS 03:36 CT Head C Spine In Process Unspecified. EDMS 04:51 Elie Love MD is Referral Physician. [facility] 05:05 IV discontinued. ak2 Administered Medications: 04:48 Drug: Magnesium Sulfate 1 grams Route: IVPB; Infused Over: 20 hrs; Site: right ak2 antecubital; 04:48 Drug: Meclizine 25 mg Route: PO; ak2 Outcome: 04:52 Discharge ordered by . janneth 05:04 Discharged to home ambulatory. ak2 05:04 Condition: good 05:04 Discharge instructions given to patient. 05:31 Patient left the ED. ak2 Signatures: Dispatcher [employer] Jesus Chappell MD MD cha Munoz, Edgar, RN RN em Russell Lopez ak2
[2020-11-25] MEDS ORDERED: MECLIZINE HCL 12.5 MG TAB ONE (05:05)
[2020-11-25] MEDS ORDERED: MAGNESIUM SULFATE 1 gm IVPB 1 GM/100 ML BAG IV ONE (05:06)
[2020-11-25 05:44] VITALS: BP 135/72; O2SAT 100
[2020-11-25 05:45] VITALS: TEMP 97.6
--- NOTE | 2020-11-25 08:10 | EKG ---
Test Date: 2020-11-25 Test Time: 02:45:47 [employer]: ASYA MEASUREMENT RESULTS: Intervals: Rate: 74 NV: 170 QRSD: 86 QT: 408 QTc: 452 [place]: P: 62 NV: 170 QRS: -5 T: 57 INTERPRETIVE STATEMENTS: Normal sinus rhythm Low voltage QRS Borderline ECG Compared to ECG 12/29/2019 01:03:02 Low QRS voltage now present Electronically Signed On 11-25-20 08:09:30 CDT by Gt Orosco
--- NOTE | 2020-11-25 08:34 | RAD REPORT ---
EXAM DESCRIPTION: Jose Francisco Single View11/25/2020 3:09 am CLINICAL HISTORY: Chest pain COMPARISON: 2019 FINDINGS: The lungs appear clear of acute infiltrate. The previously described vague nodular opacit y overlying the left lung is not clearly visualized on this examination. The heart is normal size IMPRESSION: No acute abnormalities displayed
--- NOTE | 2020-11-25 12:18 | RAD REPORT ---
EXAM DESCRIPTION: CT - Head C Spine Mpr Wo Con - 11/25/2020 6:18 am COMPARISON: CT head July 22, 2020 CLINICAL HISTORY: [facility] MAIN PAIN TECHNIQUE: Axial images were obtained from skull base to vertex without intravenous contrast. Imag es viewed on bone and brain windows. Multiplanar reformats were performed. Automated exposure contr ol was utilized on this examination as a dose lowering technique. FINDINGS: Brain parenchyma, ventricles, dura, meninges, and extra-axial spaces: Ventricles and sulci are normal. No abnormal attenuation of brain parenchyma is present. No acute intracranial hemor rhage or abnormal extra-axial fluid collections are present. Vascular structures: No hyperdense arteries or veins. Calvarium, mastoid air cells, paranasal sinuses and orbits: The calvarium is normal. A small left fro ntal scalp hematoma measures up to 6 mm in thickness. The mastoid air cells are clear. Mild bilateral ethmoid sinus mucosal thickening is noted. Orbital structures are unremarkable. IMPRESSION: 1. No acute intracranial abnormality. 2. Small left frontal scalp hematoma. EXAM DESCRIPTION: CT Cervical Spine COMPARISON: CT C-spine July 22, 2020 CLINICAL HISTORY: [facility] MAIN PAIN TECHNIQUE: Axial CT images were obtained through the entire cervical spine without contrast. Sagit lucía and coronal reconstructions are provided. Automated exposure control was utilized on this examina tion as a dose lowering technique. FINDINGS: Vertebrae: Vertebral statures and alignment are normal. There is anterior fusion of C4-C 6. No acute fracture, dislocation or destructive osseous process is present. Spinal canal, foramina, and facet joints: Greatest spinal canal stenosis is mild at C6-C7 due to disc osteophyte complex. Greatest spinal steno sis is severe at left C3, bilateral C4, bilateral C6, and bilateral C7 due to uncovertebral and facet hypertrophy. Paraspinous soft-tissues: Normal. Thyroid: Normal. Other Findings: Biapical pulmonary scarring is noted. Atherosclerosis is present. IMPRESSION: 1. No acute fracture or subluxation. 2. Cervical spondylosis. Electronically signed by: Oscar Pemberton MD 11/25/2020 4:19 AM CDT Due to temporary technical issues with the PACS/Fluency reporting system, reports are being signed by the in house radiologist without review as a courtesy to ensure prompt reporting. The interpreting r adiologist is fully responsible for the content of the report.
== END 2020-11-25 05:31 | disposition home or self-care (01) ==
LOC: ER 02:43
DX: R42 Dizziness and giddiness (principal); H82.9 Vertiginous syndromes in diseases classified elsewhere, unspecified ear; E10.9 Type 1 diabetes mellitus without complications; Z88.5 Allergy status to narcotic agent
CPT/HCPCS: 93005; 87088; 85025; 87086; 80048; 36415; 83735; 85610; 80076; 87077; 87186; 84484; 83880; 70450; 72125; 71045; J3475

== ENCOUNTER 2020-11-30 12:46 | Observation (INO) | payer OTHER ==
--- OUTSIDE RECORDS SUMMARY | 2020-11-30 13:22 | XMS REPORT | Continuity of Care Document ---
:1955 Author Organization [facility] t Address [address] [place] [address] Care Team Providers Name Role Phone Samuel Josue Attending Clinician Grupo Ramirez Attending Clinician [phone] Dallin Ríos DO Attending Clinician Barbara LOPES, [...] benedicto caused by 2018-nCoV Active Problem 10/07/2020 [facility] Allergies, Adverse Reactions, Alerts Allergy Allergy Status Severity Reaction(s) Onset Inactive Treating Comm ents Source Name Type Date Date Clinician No Known No Known Active Memori a Medicati Medicati l on on [place] Allergie Allergie s s Social History Smoking Status Start Date Stop Date Source Social History 2020-06-15 01:09:53 2020-06-15 01:09:53 [facility] Medications Ordered Filled Start Stop Current Ordering Indication Dosage Frequency Signature Comments Components Source Medication Medication Date Date Medication? Clinician (SIG) Name Name rOPINIRole Yes = 1 tab, Mem oria 2 mg oral 1-12 PO, TID, # l tablet 20:12: 270 ea, 1 Guille n 00 Refill(s), Pharmacy: [facility], 167.64, cm, 04/02/19 10:11:00 CDT, Height, 84.091, kg, 04/02/19 10:11:00 CDT, Weight gabapentin Yes = 2 cap, Mem oria 300 MG Oral 1-12 PO, TID, # l Capsule 20:12: 540 cap, 1 Herm benedicto 00 Refill(s), Pharmacy: [facility], 167.64, cm, 04/02/19 10:11:00 CDT, [...] 13:17: 540 Yong 36 unknown unit, Pharmacy: [id number] gabapentin No = 2 cap, Mem oria 300 MG Oral 6-04 PO, TID, # l Capsule 20:55: 540 Yong 46 unknown unit, Pharmacy: [facility] #[id number] lamotrigine Yes = 1 tab, Me moria 200 MG Oral 5-28 PO, BID, # l Tablet 14:34: 60 tab, [place] 36 Refill(s) 5, Pharmacy: [id number] rOPINIRole Yes See Memoria 2 mg oral 1-31 Instructio l tablet 16:20: ns, TAKE 1 Dianne nn 04 TABLET BY MOUTH 3 TIMES A DAY, # 270 tab, 3 Refill(s), Pharmacy: [place] [id number] lamotrigine No = 1 tab, Me moria 200 MG Oral 1-14 PO, BID, # l Tablet 21:52: 180 tab, 1 Dianne nn 09 Refill(s), Pharmacy: [facility] lamotrigine No = 1 tab, Me moria 200 MG Oral 1-14 PO, BID, # l Tablet 21:51: 60 tab, Yong 03 Refill(s) 1, 06/16/18 15:52:09 [facility], Pharmacy: [id number] gabapentin 2017-06 No 600 mg = 2 M emoria 300 MG Oral 2-14 cap, PO, l Capsule 23:32: TID, X 90 Dianne nn 12 day, # 540 cap, 3 Refill(s), Pharmacy: [facility] #[id number] lamotrigine 2017-06 No = 1 tab, Me moria 200 MG Oral 2-12 PO, BID, # l Tablet 14:58: 60 tab, Yong 59 Pharmacy: [facility] #[id number] Vital Signs Vital Name Observation Time Observation Value Comments Source Height 2019-04-02 14:35:00 167.64 cm [facility] Weight 2019-04-02 14:35:00 [facility] BMI Calculated 2019-04-02 14:35:00 Memjefe al [place] Systolic (mm Hg) 2018-07-03 15:46:00 Juanfrancoise beard Yong Diastolic (mm Hg) 2018-07-03 15:46:00 Mem orial Yong Heart Rate 2018-07-03 15:46:00 [facility] Height 2018-07-03 15:46:00 165.1 cm [facility] Weight 2018-07-03 15:46:00 [facility] BMI Calculated 2018-07-03 15:46:00 Baldemar al [place] Procedures Procedure Date / Time Performed Performing Clinician [facility] Stent placement [facility] Encounters Start End Encounter Admission Attending Care Care Encounter Source Date/Time Date/Time Type Type Clinicians Facility Department ID 2020-10-05 2020-10-05 Outpatient KATIE Josue MISCHER [id number] 10:15:00 10:15:00 Piotr Baker 2020-09-08 2020-09-08 Outpatient KAREN Ramirez [id number] 00:00:00 00:00:00 Maribell [id number] Grupo [id number] 2020-08-08 2020-08-08 Patient [place] [facility] [id number] 00:00:00 00:00:00 Outreach Prudencio OLIVIA [id number] [facility] [id number] [place] [id number] 2020-06-14 2020-06-14 Outpatient Joselo, MHMISCHER MHMISCHER [id number] 13:15:00 23:59:59 Piotr 09 [facility] 2020-06-08 2020-06-08 Outpatient Joselo, MHMISCHER MHMISCHER [id number] 09:15:00 09:15:00 Piotr 08 [facility] 2020-02-17 2020-02-17 Patient Margarette Jimenez [id number] 00:00:00 00:00:00 Outreach Kelsey Greene [id number] [place] 4.2.7.2.686 [id number] 2020-02-14 2020-02-14 Emergency [facility] [id number] 14:26:00 16:05:00 Sophia Arredondo [id number] [place] 4.2.7.2.686 [place] [id number] 2020-02-14 2020-02-14 Orders Doctor SARA [id number] 00:00:00 00:00:00 Only Unassigned, [place] [id number] [place] [facility] 4.2.7.2.686 [id number] 2019-12-10 2019-12-10 Outpatient Joselo, MHMISCHER MHMISCHER [id number] 15:15:00 15:15:00 Piotr 07 [facility] 2019-12-10 2019-12-10 Outpatient Joselo, MHMISCHER MHMISCHER [id number] 09:00:00 09:00:00 Piotr 06 [facility] 2019-09-20 2019-09-20 Emergency [facility] [id number] 12:46:41 16:25:00 Sophia Arredondo [id number] Patrice 4.2.7.2.686 [place] [id number] 2019-04-02 2019-04-02 Outpatient KATIE Josue [id number] 09:30:00 23:59:59 Piotr 05 Samuel 2019-02-17 2019-02-17 Transition Margarette Gomez [id number] 00:00:00 00:00:00 of Care Ivett Rickettsy [id number] [place] 4.2.7.2.686 [id number] 2019-02-14 2019-02-15 [facility] [place] [facility] [id number] 19:37:01 10:35:00 Encounter Lorena Mcmahon [id number] [place] 4.2.7.2.686 [place] [id number] 2019-02-14 2019-02-14 Nurse NurseKarel [facility] [id number] 19:13:52 19:30:10 Visit [facility] [id number] Surgical 4.2.7.2.686 Specialti [id number] [address] [place] 2019-01-31 2019-01-31 [facility] [id number] 11:25:08 11:40:08 Care [facility] [id number] Surgical 4.2.7.2.686 Specialti [id number] [address] [place] 2019-01-31 2019-01-31 Orders Doctor SARA [id number] 00:00:00 00:00:00 Only Unassigned, [place] 350.1.13.10 [place] [address]686 [id number] 2018-07-03 2018-07-03 Outpatient KATIE Jsoue [id number] 08:45:00 23:59:59 Piotr 04 Samuel 2018-07-03 2018-07-03 Outpatient KATIE Josue [id number] 08:45:00 08:45:00 Piotr 03 Samuel 2018-05-30 2018-05-30 [facility] [id number] 15:45:00 15:45:00 Piotr Samuel 2018-05-22 2018-05-23 Outpatient [facility] [id number] 15:49:00 23:59:59 2018-05-22 2018-05-22 [id number] 14:45:00 14:45:00 Piotr Samuel 2018-05-13 2018-05-13 [id number] 15:30:00 15:30:00 Piotr Samuel Results Test Description Test Time Test Comments Results Result Comments Source POC Glucose 2019-08-07 14:12:56 Test Item Value Reference Range Interpretation Comme nts Glucose POC (test code = 136 mg/dL 70-115 H Not kailyn RN or MDIf you consider your Glucose POC) patient critica llhanna ill, the Cristopher-Accu Chec k Infrom II meter should not be u sed for Glucose determination. Draw a venous Glucose and send to the main Lab for analysis.
[2020-11-30] MEDS ORDERED: GLUCAGON 1 MG/VIAL IM PRN (13:52)
[2020-11-30] MEDS ORDERED: D50W 25 GM/50 ML VIAL IV PRN (14:00)
[2020-11-30] MEDS ORDERED: ONDANSETRON 4 MG/2 ML VIAL IV PRN (14:11)
[2020-11-30 14:21] LABS: Absolute Lymphocytes (CBC) 1.7 K/uL (0.7-4.9); Basophils % 0.9 % (0-1.3); Hematocrit 37.1 % (36.0-45.0); Lymphocytes % 29.1 % (15.3-44.8); MPV 8.1 fL (7.6-11.3)
[2020-11-30 14:25] VITALS: BMI 30.7
[2020-11-30 14:54] LABS: Magnesium 2.1 mg/dL (1.8-2.4); Potassium 4.1 mmol/L (3.5-5.1); Thyroid Stimulating Hormone 3.17 uIU/mL (0.360-3.740)
[2020-11-30] MEDS ORDERED: PNEUMOCOCCAL VACCINE 0.5 ML IMVAC ONE (15:00)
[2020-11-30] MEDS: INSULIN -REGULAR HUMAN 50 UNIT/0.5 ML ML SQ SCH ×2 (16:30→21:00)
[2020-11-30 16:55] LABS: Urine Appearance TURBID (Clear); Urine Bilirubin NEGATIVE (Negative); Urine Blood 3+ (Negative); Urine Color YELLOW (Yellow); Urine Glucose NEGATIVE (Negative); Urine Protein NEGATIVE (Negative); Urine Specific Gravity 1.015 (1.005-1.030); Urine pH 5.5 (5.0-7.0)
[2020-11-30 16:56] LABS: Urine Microscopic Reflex ORDER UMIC
[2020-11-30 17:13] LABS: Urine Bacteria 20-50 /HPF (<20); Urine Mucus 2+ /HPF (NONE SEEN)
[2020-11-30] MEDS ORDERED: LORazepam 2 MG/ML VIAL IV ONE (18:00)
[2020-11-30] MEDS: GABAPENTIN 300 MG CAP PO SCH (20:06)
[2020-11-30] MEDS: ROPINIROLE HCL 1 MG TAB PO SCH (20:06)
[2020-11-30] MEDS: CIPROFLOXACIN HCL 250 MG TAB PO SCH (20:06)
[2020-11-30] MEDS: lamoTRIgine 100 MG TAB PO SCH (20:07)
--- NOTE | 2020-11-30 20:12 | CON ---
Date of Consultation: 11/30/2020 Reason: Severe vertigo. History Of Present Illness: A 65-year-old lady whom I know reasonably well because she has a very lo ng history of restless legs syndrome and also history of some psychiatric problems. Though we are no t managing, but she is on Lamictal for that problem. She was in her usual state of health until last week when she started experiencing abrupt onset of nonpositional vertigo. She will just be sitting in bed, and becomes extremely vertiginous and nauseated and unsteady. She had an episode on the and had to get up to use the bathroom, but actually fell out of bed and hit her face and summoned EM S, and they took her to the emergency department where evaluation was largely unremarkable, and her s ymptoms resolved and she was discharged to home. The patient has known subclavian stenosis on the le ft and had angioplasty for in-stent restenosis last year, but she had a carotid Doppler, which demons trated retrograde flow in the left vertebral and left subclavian. MRI of brain is pending. She has such prominent restless legs that it tends to really exacerbate when she has to be still for studies like MRIs. She feels okay now. She is not having prominent vertigo episodic for the last week and some of crescendo in its quality. Consultation was requested. Past Medical History: The patient also has a history of diabetes. Allergies: LORAZEPAM. Medications: Lamictal, ropinirole, metformin, insulin, glipizide, gabapentin, Plavix, and Celexa. Social History: The patient is normally independent with activities of daily living. Family History: Noncontributory. Review of Systems: General: Good health. Eyes: Negative. Ears, nose, Throat: Negative. Cardiovascular: As alluded to. Musculoskeletal: Arthralgias. Neurologic: As noted. Psychiatric: As alluded to. Endocrine: Diabetes. Hematologic: Negative. Physical Examination: Vital Signs: On exam, 97, 70, 18, 133/67. General: Pleasant lady lying in bed, in no distress. Awake, alert, oriented. HEENT: Pupils are reactive. She has a rotary upbeating nystagmus on ocular motion testing to the le ft. Provocative Bernabe-Hallpike maneuver does not reproduce the vertigo. Facial strength sensation nor mal. Tongue protrudes evenly. Soft palate elevates symmetrically bilaterally. Extremities: Streng th full. Sensation decreased symmetrically distally. Reflexes 2/4. Left toe was upgoing. Right to e was downgoing. Cerebellar exam demonstrates significant reproducible passpointing left arm and leg . Stroke scale is 2 for the ataxia. Impression: Vertigo, probable posterior fossa ischemic event. Plan: Prior CT was unremarkable. We will add aspirin to the Plavix. Check blood pressure in both a naomi per shift. May need to have her sessions clerk reinvolved in her care. Check lipids. DVT prophyl axis. Fall precautions. Thank you for the consult. We will continue to follow. ALEKSANDRA/JOHAN Voice ID: [id number] Report ID: [id number]
[2020-12-01] MEDS: INSULIN -REGULAR HUMAN 50 UNIT/0.5 ML ML SQ SCH ×4 (07:30→22:00)
[2020-12-01] MEDS ORDERED: ALPRAZOLAM 1 MG TABLET PO ONE (07:32)
[2020-12-01] MEDS: ROPINIROLE HCL 1 MG TAB PO SCH ×3 (07:47→20:00)
[2020-12-01] MEDS: GABAPENTIN 300 MG CAP PO SCH ×3 (07:47→20:00)
[2020-12-01] MEDS ORDERED: CLOPIDOGREL 75 MG TABLET PO SCH (09:00)
[2020-12-01] MEDS ORDERED: ASPIRIN EC 81 MG TAB PO SCH (09:00)
[2020-12-01] MEDS ORDERED: ENOXAPARIN 40 MG/0.4 ML SQ SCH (09:00)
[2020-12-01] MEDS: lamoTRIgine 100 MG TAB PO SCH ×2 (09:49→20:01)
[2020-12-01] MEDS: CIPROFLOXACIN HCL 250 MG TAB PO SCH ×2 (09:51→20:00)
--- NOTE | 2020-12-01 10:03 | RAD REPORT ---
EXAM DESCRIPTION: MRI - Brain W/Wo Cont - 12/01/2020 9:38 am CLINICAL HISTORY: Direct admit/ vertigo COMPARISON: MRA Head Wo Cont dated 11/30/2020; MRA Neck W/Wo Cont dated 12/01/2020; MRI BRAIN WITHOUT C ONTRAST dated 10/19/2008; Head Brain Wo Cont dated 10/14/2015 TECHNIQUE: Multi-sequence, multiplanar MR imaging of the brain was performed with contrast. FINDINGS: No intracranial hemorrhage, hydrocephalus, or extra-axial fluid collection. . In the left lateral posterior fossa a slightly T2/FLAIR hyperintense 17 x 15 mm extra-axial mass is seen.There is mild mass effect on the left cerebellar hemisphere caused by this. The mass is seen to homogeneously enhance after contrast. DWI is negative for acute CVA. The midline structures are normally formed. Mastoid air cells and paranasal sinuses are clear. No additional areas of pathologic post-contrast enhancement. IMPRESSION: 17 x 15 mm homogeneously enhancing mass is seen left posterior fossa extra-axial locatio n. This is suspicious for a meningioma. There is mild mass effect on the left cerebellar hemisphere identified.
--- NOTE | 2020-12-01 10:05 | RAD REPORT ---
EXAM DESCRIPTION: MRI - MRA Head Wo Cont - 12/01/2020 9:38 am CLINICAL HISTORY: Direct admit/vertigo CVA COMPARISON: Head Brain Wo Cont dated 10/14/2015 FINDINGS: 3D noncontrast [id number] MR angiography of the [place] was performed. No aneurysm, flow-limiting stenosis or vascular malformation is seen. Forward flow seen in codominant vertebral arteries. The visualized dural venous sinuses appear patent. IMPRESSION: No significant flow abnormality of the [place] is identified.
--- NOTE | 2020-12-01 10:09 | RAD REPORT ---
EXAM DESCRIPTION: MRI - MRA Neck W/Wo Cont - 12/01/2020 9:36 am CLINICAL HISTORY: Direct admit/ vertigo Headache, drowsiness COMPARISON: No comparisons FINDINGS: Contrast enhance 2D [id number] MR angiography of the neck vessels was performed. A left aortic arch is present. Both common carotid arteries are patent. No significant stenosis of th e internal carotid arteries is seen. Antegrade flow seen in both vertebral arteries with right-sided dominant. IMPRESSION: No significant internal carotid artery stenosis is seen.
--- NOTE | 2020-12-01 20:24 | PN ---
Date of Progress Note: 12/01/2020 The patient is basically status quo as long as she is lying still in bed. Does not have any vertigin ous episodes. 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 She has been seen by Neurology as well, who felt the possibility of subclavian steal was present and certainly her symptoms suggested this. However, this MRI findings I think clarifies the situation, so she will need a Neurosurgery consultation and probable surgery. In the meantime, placement may be some issue as she was by herself with a dog. Ho wever, she has recently fallen and is extremely unsteady and feels rather unsafe at home. If she cou ld be transferred for the procedure, would be of value. HR/MODL Voice ID: [id number] Report ID: [id number]
[2020-12-01 20:41] VITALS: BP 140/67; TEMP 96.9
[2020-12-01 23:09] VITALS: O2SAT 96
--- NOTE | 2020-12-02 08:07 | ECHO ---
HEIGHT: 5 ft 5 in WEIGHT: 185 lb 0 oz DATE OF STUDY: 12/01/[address]: Eliud Cage MD 2-DIMENSIONAL: YES M.MODE: YES DOPPLER: YES COLOR FLOW: YES TDS: YES PORTABLE: DEFINITY: BUBBLE STUDY: DIAGNOSIS: CHEST PAIN CARDIAC HISTORY: CATHERIZATION: SURGERY: PROSTHETIC VALVE: PACEMAKER: MEASUREMENTS (cm) DIASTOLIC (NORMALS) SYSTOLIC (NORMALS) IVSd 0.9 (0.6-1.2) LA Diam (1.9-4.0) LVEF 75% LVIDd 3.2 (3.5-5.7) LVIDs 1.8 (2.0-3.5) %FS 42% LVPWd 1.0 (0.6-1.2) Ao Diam 3.3 (2.0-3.7) 2 DIMENSIONAL ASSESSMENT: RIGHT ATRIUM: NORMAL LEFT ATRIUM: NORMAL RIGHT VENTRICLE: NORMAL LEFT VENTRICLE: NORMAL TRICUSPID VALVE: NORMAL MITRAL VALVE: MITRAL ANNULAR CALCIFICATION PULMONIC VALVE: NORMAL AORTIC VALVE: SCLEROSIS PERICARDIAL EFFUSION: NONE AORTIC ROOT: NORMAL LEFT VENTRICULAR WALL MOTION: NORMAL DOPPLER/COLOR FLOW: MILD TRICUSPID REGURGITATION. COMMENTS: NORMAL LEFT VENTRICULAR SIZE AND FUNCTION. MILD TRICUSPID REGURGITATION. MITRAL ANNULAR CALCIFICATION. AORTIC SCLEROSIS, NO STENOSIS. TECHNOLOGIST: JESSICA DAY
== END 2020-12-02 00:20 | disposition short-term general hospital (02) ==
LOC: 4TH 13:16
PROVIDERS: ADMIT Family Medicine; ATTEND Family Medicine
DX: R42 Dizziness and giddiness (principal); E11.9 Type 2 diabetes mellitus without complications; Z79.4 Long term (current) use of insulin; G25.81 Restless legs syndrome; R93.0 Abnormal findings on diagnostic imaging of skull and head, not elsewhere classified
CPT/HCPCS: 93306; 87088; 85025; 87086; 80048; 36415; 83735; 80061; 82947 ×6; 85652; 84443; 87077; 87186; 83036; 82607; 70553; 70544; 70549; 92610; A9577; J1650; G0378 ×4; 81003; 81015

== ENCOUNTER 2022-12-10 11:18 | Inpatient (IN) | payer OTHER ==
--- OUTSIDE RECORDS SUMMARY | 2022-12-10 11:33 | XMS REPORT | Continuity of Care Document ---
:1955 Author Organization [facility] t Address [address] [place] [address] [place] [id number] Care Team Providers Name Role Phone Eliud Cage Primary Care Physician Dell Monroe Attending Clinician Unavailable Dell Monroe Attending Clinician Unavailable Pinky LOPES, Nurys Attending Clinician Unavailable RADHA PALOMARES Attending Clinician Unavailable Arleth Miranda Attending Clinician Radha Palomares DO Attending Clinician SANTOSH GARZA Attending Clinician Unavailable SANTOSH GARZA Attending Clinician Unavailable JOSÉ MIGUEL MEDINA Attending Clinician Unavailable Deni MEDINA, Misael Gunn Attending Clinician Grace MEDINA, Matt Attending Clinician Adam Becerril MD, José Miguel Attending Clinician Christine -Christin Laguna Attending Clinician [email or web address] Attending Clinician Unavailable Andreia Buckley Attending Clinician MARCIAL VAUGHAN Attending Clinician Unavailable Marcial Vaughan MD Attending Clinician Larisa Henderson Attending Clinician Piotr Josue Attending Clinician Nimesh Parra Attending Clinician VERNA BRUSH Attending Clinician Unavailable Coretta Tavares RN Attending Clinician Unavailable Doctor Unassigned, [place] Attending Clinician Unavailable SAMUEL ANN Attending Clinician Unavailable Madhavi Bryan DO Attending Clinician Samuel Ann MD Attending Clinician FAN PRINCE Attending Clinician Unavailable FAN PRINCE Attending Clinician Unavailable Darian Glass MD Attending Clinician AUTUMN MALIK Attending Clinician Unavailable STEPHANIE SWAN Attending Clinician Unavailable MADHAVI BRYAN Attending Clinician Unavailable CHAVO HACKETT Attending Clinician Unavailable Chavo Anne Attending Clinician Rebeca Mccann RN Attending Clinician Unavailable Sergey Chapin DO Attending Clinician Tod Singh MD Attending Clinician TOD SINGH Attending Clinician Unavailable SAVANAH ACOSTA Attending Clinician Unavailable CHASE Attending Clinician Unavailable Maribell Ramirez Attending Clinician [phone] Prudencio Ríos DO Attending Clinician CLIFFORD REED Attending Clinician Unavailable Kelsey Jimenez RN Attending Clinician Jayne Anderson Attending Clinician JAYNE LIPSCOMB Attending Clinician Unavailable GABINO GUILLAUME Attending Clinician Unavailable ZANDER ZHANG Attending Clinician Unavailable NOE CODY III Attending Clinician Unavailable GREGORY CARTER Attending Clinician Unavailable Ivett Gomez RN Attending Clinician Casa Pickard Attending Clinician Nurse, [facility] Attending Clinician Unavailable Unknown, Attending Attending Clinician Unavailable Sara Irwin PA-C Attending Clinician Dell Monroe Admitting Clinician Unavailable RADHA PALOMARES Admitting Clinician Unavailable Radha Palomares DO Admitting Clinician MATT EDWARDS Admitting Clinician Unavailable Matt Edwards MD Admitting Clinician [email or web address] Admitting Clinician Unavailable MARCIAL VAUGHAN Admitting Clinician Unavailable SAMUEL ANN Admitting Clinician Unavailable Samuel Ann MD Admitting Clinician FAN PRINCE Admitting Clinician Unavailable AUTUMN MALIK Admitting Clinician Unavailable MADHAVI BRYAN Admitting Clinician Unavailable Tod Singh MD Admitting Clinician TOD SINGH Admitting Clinician Unavailable FARIDEH STONE Admitting Clinician Unavailable WESTON_Celso Admitting Clinician Unavailable JAYNE LIPSCOMB Admitting Clinician Unavailable Payers Payer Name Policy Type Policy Number Effective Date Expiration Date Torie salazar [facility] [id number] 2019 00:00:00 [facility] HEALTH [id number] (MEDICARE 00:00:00 REPLACEMENT HMO) MANAGED MEDICARE [id number] 2018 HMO GENERIC 00:00:00 [facility] MEDICARE [id number] 2018 COMPLETE 00:00:00 Problems Condition Condition Condition Status Onset Resolution Last Treating Co mments Source Name Details Category Date Date Treatment Clinician Date Dizziness Dizziness Disease Active Uni vers 7- ity of 00:00: [place] 00 Medical Branch Abnormal Abnormal Disease Active Unive rs involuntar involuntar 6-05 it y of y movement y [place] [facility] Disorienta Disorienta Disease Active U nivers tion tion 6- ity of 00:00: [place] [facility] UTI UTI Disease Active Univers (urinary (urinary 8-16 ity of tract tract 00:00: [place] infection) infection) 00 Me dical Branch Peripheral Peripheral Disease Active U nivers neuropathy neuropathy 8-16 it y of 00:00: [place] [facility] Meningioma Meningioma Disease Active U nivers of of 8-16 ity of cerebellum cerebellum 00:[place] (left) (left) 00 Medical Branch Difficulty Difficulty Disease Active U nivers with with 8-15 ity of speech speech 00:00: Medical Branch Pulmonary Pulmonary Disease Active Uni vers embolism, embolism, 4-22 ity of bilateral bilateral 00:[place] [facility] [place] Hypotensio Hypotensio Disease Active U nivers n n 8-20 ity of 00:00: [place] [facility] Meningioma Meningioma Disease Active M ethodi 12-05 st 00:00: [facility]ospita 00 l Dizziness Dizziness Disease Active Met hodi 12-02 st 00:00: [facility]ita 00 l Cellulitis Cellulitis Disease Active U nivers of right of right 4-17 ity of lower lower 00:00: [place] extremity extremity 00 Medi corby without without Branch foot foot Insect Insect Disease Active Univers bite of bite of 4-17 ity of left lower left lower 00:[place]: [place] extremity, extremity, 00 Me dical initial initial Branch encounter encounter Itching Itching Disease Active 2019- Univers 4-17 ity of 00:00: [place] [facility] Dyspnea Dyspnea Disease Active 2018-06 Univers 1-23 ity of 00:00: [place] [facility] Acute deep Acute deep Disease Active U nivers vein vein 6-28 ity of thrombosis thrombosis 00:00: [place] (DVT) of (DVT) of 00 Medica l proximal proximal Branch vein of vein of lower lower extremity extremity Pulmonary Pulmonary Disease Active Uni vers embolism embolism 6-22 ity of 00:00: [place] [facility] Obesity Obesity Disease Active Univers (BMI (BMI 6-22 ity of 30-39.9) 30-39.9) 00:00: [place] [facility] Transient Transient Problem Active 2022-07-07 Memoria ischemic ischemic 23:39:55 l attack attack Yong (disorder) (disorder) Active Problem 07/07/2022 [facility] [place] Diabetes Diabetes Problem Active 2022-07-07 Memoria mellitus mellitus 23:39:55 l (disorder) (disorder) He rmann Active Problem 07/07/2022 [facility] Restless Restless Problem Active 2022-07-07 Memoria legs legs 23:39:55 l (disorder) (disorder) [place] Active Problem 07/07/2022 [facility] Deep Deep Problem Active 2022-07-07 Memor ia venous venous 23:39:55 l thrombosis thrombosis He rmann of lower of lower extremity extremity (disorder) (disorder) Active Problem 07/07/2022 [facility] Hyperlipid Hyperlipi Problem Active 2022-07-07 Memoria emia demia 23:39:55 l (disorder) (disorder) He rmann Active Problem 07/07/2022 [facility] Disease Disease Problem Active 2022-07-07 M emoria caused by caused by 23:39:55 l 2019-nCoV 2018-nCoV Herm benedicto Active Problem 07/07/2022 [facility] Vertigo Vertigo Problem Active 2022-07-07 Me moria (finding) (finding) 23:39:55 l Active Yong Problem 07/07/2022 [facility] Stammering Stammerin Problem Active 2022-07-07 Memoria (finding) g 23:39:55 l (finding) Yong Active Problem 07/07/2022 [facility] 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 Guille n (disorder) (disorder) Active Problem 07/07/2022 [facility] Allergies, Adverse Reactions, Alerts Allergy Allergy Status Severity Reaction(s) Onset Inactive Treating Comm ents Source Name Type Date Date Clinician Lorazepa Propensi Active Other (See Suicidal Methodi m ty to Comments) 12-[address] adverse 00:00: Hospita reaction 00 l s to drug Lorazepa Propensi Active Anxiety Unive rs m ty to 08-29 ity of adverse 00:00: [place] reaction 00 Medical s Branch LORAZEPA DRUG Active Anxiety Univers M INGREDI 08-29 ity of 00:00: [place] 00 Medical Branch Ativan Allergy Active Moderate Hallucinatio D evoted to Medical substanc Group e Lipitor Allergy Active Moderate Hallucinatio Devoted to Medical substanc Group e melatoni Drug Active [facility] Ativan Drug Active [facility] melatoni Drug Active [facility] Ativan Drug Active [facility] No Known No Known Active Memori a Medicati Medicati l on on [place] Allergie Allergie s s Ativan Ativan Active Memoria l [place] Family History Family Member Diagnosis Comments Start Date Stop Date Source Maternal grandmother Deep vein [facility] thrombosis Hospital Natural mother Deep vein [facility] Other Deep vein [facility] Social History Social Habit Start Date Stop Date Quantity Comments Source History SDOH Social Unive rsity of Connections Get [place] Med ical Together Branch History SDOH Social Unive rsity of Connections [facility] Medical Branch History SDOH Social Unive rsity of Connections [place] [facility] Membership Branch History SDOH Social Unive rsity of Connections [place] [facility] Meetings Branch History SDOH University o f Alcohol Std Drinks [place] [facility] History SDOH University o f Alcohol Binge [place] [facility] History of tobacco Passive smoker Un iversity of use [place] [facility] Gender identity [facility] Sexual orientation Method ist Hospital History SDOH Social 2022-12-03 2022-12-03 5 Unive rsity of Connections Phone 00:00:00 00:00:00 [place] M edical Branch History SDOH Social 2022-12-03 2022-12-03 4 Unive rsity of Connections Living 00:00:00 00:00:00 [place] [facility] History SDOH 2022-12-03 2022-12-03 0 University o f Physical Activity 00:00:00 00:00:00 [place] M edical DPW Branch History SDOH 2022-12-03 2022-12-03 0 University o f Physical Activity 00:00:00 00:00:00 [place] M edical MPS Branch History SDOH 2022-12-03 2022-12-03 2 University o f Housing Unable to 00:00:00 00:00:00 [place] M edical Pay Branch History SDOH 2022-12-03 2022-12-03 1 University o f Housing Places 00:00:00 00:00:00 [place] Medi corby Lived Branch History SDOH 2022-12-03 2022-12-03 2 University o f Housing Homeless 00:00:00 00:00:00 [place] Me dical Last Year Branch History SDHI 2022-12-03 2022-12-03 1 University o f Alcohol Frequency 00:00:00 00:00:00 [place] M edical Branch History SDOH 2022-12-03 2022-12-03 5 University o f Financial 00:00:00 00:00:00 [place] [facility] History SDHI Food 2022-12-03 2022-12-03 1 Univers ity of Worry 00:00:00 00:00:00 [place] [facility] History SDHI Food 2022-12-03 2022-12-03 1 Univers ity of Scarcity 00:00:00 00:00:00 [place] [facility] History SDHI 2022-12-03 2022-12-03 2 University o f Transport Med 00:00:00 00:00:00 [place] [facility] al [facility] History [facility] 2022-12-03 2022-12-03 2 University o f Transport Non-Med 00:00:00 00:00:00 [facility] edical Branch Tobacco Comment 2022-12-02 2022-12-02 Pt refuses Universit y of 00:00:00 00:00:00 counseling [facility] haven't smoked in Branch 45 years Exposure to 2022-08-29 2022-09-08 Not sure [facility] SARS-CoV-2 (event) 00:00:00 00:34:00 [facility] [place] History of Social 2021-09-07 2021-09-[address] function 00:00:00 00:00:00 Hospital Alcohol intake 2021-09-07 2021-09-07 Ex-drinker [facility] 00:00:00 00:00:00 (finding) Hospital Alcohol Comment 2020-12-02 2020-12-02 a few drinks a Metho dist 00:00:00 00:00:00 year Hospital Tobacco use and 2020-12-02 2020-12-02 Smokeless tobacco Me thodist exposure 00:00:00 00:00:00 non-user Hospital Education 2018-11-22 2018-11-22 11 University of 00:00:00 00:00:00 [facility] [place] Sex Ass[birth year] [facility] 00:00:00 00:00:00 Hospital Smoking Status Start Date Stop Date Source Tobacco smoking status 2022-03-13 18:17:28 2022-03-13 18:17:28 [place] Never smoked tobacco [facility] Medications Ordered Filled Start Stop Current Ordering Indication Dosage Frequency Signature Comments Components Source Medication Medication Date Date Medication? Clinician (SIG) Name Name magnesium 2022-0 2022- Yes 400mg 400 mg, Uni vers oxide 12-04 07-08 Oral, BID, ity of (MAG-OX 01:00: 00:59 8 doses, [place] 400) tablet 00 :00 First dose Me dical 400 mg on Sat [place] 12/03/22 at 2000, Last dose on Sat12/07/22 at 0800, DAKOTAH insulin 2022-0 Yes 5U 5 Units, Univer s glargine 12-03 Subcutaneo ity o f (LANTUS 14:00: [place], DAILY, [place] U-100) 00 First dose Medical injection 5 on [facility] 12/03/22 at 0900, Until Discontinu ed citalopram 0 Yes 40mg 40 mg, Unive rs (CELEXA) 12-03 Oral, ity of tablet 40 14:00: DAILY, [place] mg 00 First dose Medical on [facility] 12/03/22 at 0900, Until Discontinu ed, Routine gabapentin 2022-0 Yes 300mg 300 mg, Uni vers (NEURONTIN) 12-03 Oral, TID, it y of capsule 300 13:00: First dose [place] mg 00 (after Medical last Branch modificati on) on Sat12/03/22 at 0800, Until Discontinu ed, Routine metFORMIN 2022-0 Yes 1000mg 1,000 mg, U nivers (GLUCOPHAGE 12-03 Oral, BID ity of ) tablet 13:00: MEALS, [place] 1,000 mg 00 First dose Medic al on [facility] 12/03/22 at 0800, Until Discontinu ed, Routine pramipexole 2022-0 Yes .25mg 0.25 mg, U nivers (MIRAPEX) 12-03 Oral, TID, ity of tablet 0.25 13:00: First dose [place] mg 00 on [facility] 12/03/22 at Branch 0800, Until Discontinu ed, Routine apixaban Yes 1477 5mg 5 mg, Univers (ELIQUIS) 12-03 Oral, BID, ity of tablet 5 mg 13:00: First dose [place] 00 on [facility] 12/03/22 at Branch 0800, Until Discontinu ed, Routine
Indicatio ns: Non-Valvul ar Atrial Fibrillati on magnesium 2022- No 2g 2 g, IV Univ ers sulfate in 12-03 Piggyback, it y of water 2 13:00: 14:46 Administer [place] as gram/50 mL 00 :00 over 60 Medica l (4 %) Minutes, [place] infusion 2 ONCE NOW, g 1 dose, On [facility] 12/03/22 at 0800, Routine Sliding Yes Subcutaneo Univ ers Scale 12-03 us, TID ity of Insulin - 02:00: MEALS+HS, [place] Lispro 00 First dose Medical (HumaLOG) on [facility] 12/02/22 at 2100, Until Discontinu ed, Routine gabapentin 2022- Yes [id number] 300mg Take 1 Univers 300 mg 12-03 capsule by ity of capsule 00:00: 04:59 mouth in [place] 00 :00 [facility] and 1 capsule at noon and 1 capsule in the evening. Do all this for 30 days. gabapentin 2022- Yes [id number] 300mg Take 1 Univers 300 mg 12-03 capsule by ity of capsule 00:00: 04:59 mouth in [place] 00 :00 [facility] and 1 capsule at noon and 1 capsule in the evening. Do all this for 30 days. magnesium 2022- Yes [id number] 400mg Take 400 Univers oxide 420 12-03 07-11 mg by ity of mg Tab 00:00: 04:59 mouth in [place] 00 :00 [facility] and 400 mg in the evening. Do all this for 7 days. magnesium 2022- Yes [id number] 400mg Take 400 Univers oxide 420 12-03 07-11 mg by ity of mg Tab 00:00: 04:59 mouth in [place] 00 :00 [facility] and 400 mg in the evening. Do all this for 7 days. NaCl 0.9% 2022- No 1000mL at 100 Uni vers (NS) IV 12-02 07-03 mL/hr, IV ity of infusion 23:30: 12:10 Infusion, [place] 1,000 mL 00 :04 CONTINUOUS Medic al , Starting Branch on [place] 12/02/22 at 1830, Until 12/03/22 at 0710, Routine glucagon Yes 1mg 1 mg, Univers (GLUCAGEN 12-02 Intramuscu ity of DIAGNOSTIC 23:14: lar, PRN, [place] KIT) 29 Starting Medical injection 1 on [facility] mg 12/02/22 at 1814, Until Discontinu ed, DAKOTAH, Blood Glucose < or = 70 mg/dL and patient is NPO, unable to swallow or has mental changes. dextrose 50 0 Yes 25mL 25 mL, Univ ers % in water 12-02 Slow IV ity of (D50W) 23:14: Push, PRN, [place] injection 29 Starting Medica l 25 mL on [facility] 12/02/22 at 1814, Until Discontinu ed, DAKOTAH, Blood Glucose < or = 70 mg/dL and patient is NPO, unable to swallow or has mental status changes. acetaminoph Yes 650mg 650 mg, Un meri en 12-02 Oral, ity of (TYLENOL) 23:13: Q6HPRN, [place] tablet 650 48 Starting Medic al mg on [facility] 12/02/22 at 1813, Until Discontinu ed, Routine, Pain (scale 1-3) NaCl 0.9% 2022- No 1000mL at 999 Uni vers (NS) bolus 12-0202 mL/hr, ity of infusion 22:15: 23:07 1,000 mL, [place] 1,000 mL 00 :00 IV Medical Infusion, Branch ONCE, 1 dose, On [place] 12/02/22 at 1715, DAKOTAH iopamidol 0 2022- No [id number] 83mL 83 mL, U nivers (ISOVUE 12-02 Intravenou ity o f 370-500 mL) 22:15: 22:15 s, ONCE, 1 [place] injection 00 :00 dose, On Medica l 83 mL [place] 12/02/22 Branch at 1715, Routine NaCl 0.9% 2022- No 1000mL at 999 Uni vers (NS) bolus 12-02 mL/hr, ity of infusion 20:00: 21:28 1,000 mL, [place] 1,000 mL 00 :00 IV Medical Infusion, Branch ONCE, 1 dose, On 12/02/22 at 1500, DAKOTAH meclizine 2022- No 25mg 25 mg, Unive rs (TRAVEL-EAS 12-02 Oral, ity of E 19:30: 19:42 ONCE, 1 [place] (MECLIZINE) 00 :00 dose, On Medi corby ) tablet 25 Sat12/02/22 Br anch mg at 1430, DAKOTAH gabapentin Yes 600mg 600 mg, Uni vers (NEURONTIN) 11-05 Oral, TID, it y of capsule 600 19:00: First dose [place] mg 00 (after Medical last Branch modificati on) on Sat11/05/22 at 1400, Until Discontinu ed, Routine levoFLOXaci 2022- No 250mg 250 mg, U nivers n 11-05 06-05 Oral, Q24H ity of (LEVAQUIN) 18:00: 18:43 ABX, 1 [place] tablet 250 00 :00 dose, Medical mg First dose Branch (after last modificati on) on Sat11/05/22 at 1300, DAKOTAH
Re ason for Anti-Infec tive: Documented Infection< br>Documen beth Infection Site: Urine<br&g t;Duration of Therapy: Other (see Comments) pramipexole 2022- Yes [id number] .25mg Take 1 Univers 0.25 mg 11-05 tablet by ity of tablet 00:00: 05:59 mouth in [place] 00 :00 the Medical morning Branch and 1 tablet at noon and 1 tablet in the evening. Do all this for 180 days. pramipexole 2022- Yes [id number] .25mg Take 1 Univers 0.25 mg 11-05 tablet by ity of tablet 00:00: 05:59 mouth in [place] 00 :00 the morning Branch and 1 tablet at noon and 1 tablet in the evening. Do all this for 180 days. pramipexole 2022- Yes [id number] .25mg Take 1 Univers 0.25 mg 11-05 tablet by ity of tablet 00:00: 05:59 mouth in [place] 00 :00 the [facility] morning Branch and 1 tablet at noon and 1 tablet in the evening. Do all this for 180 days. pramipexole 2022- Yes [id number] .25mg Take 1 Univers 0.25 mg 11-05 tablet by ity of tablet 00:00: 05:59 mouth in [place] 00 :00 the [facility] morning Branch and 1 tablet at noon and 1 tablet in the evening. Do all this for 180 days. gabapentin 2022- Yes [id number] 600mg Take 2 Univers 300 mg 11-05 capsules ity of capsule 00:00: 04:59 by mouth [place] 00 :00 in the [facility] morning Branch and 2 capsules at noon and 2 capsules in the evening. Do all this for 30 days. gabapentin 2022- Yes [id number] 600mg Take 2 Univers 300 mg 11-05 capsules ity of capsule 00:00: 04:59 by mouth [place] 00 :00 in the Medical morning Branch and 2 capsules at noon and 2 capsules in the evening. Do all this for 30 days. gabapentin 2022- No [id number] 600mg Take 2 Univers 300 mg 11-05 capsules ity of capsule 00:00: 00:00 by mouth [place] 00 :00 in the [facility] morning Branch and 2 capsules at noon and 2 capsules in the evening. Do all this for 30 days. gadobenate 2022- No [id number] .2mL/kg 16.32 mL Univers dimeglumine 11-04 (0.2 mL/kg i ty of (MULTIHANCE 16:00: 16:00 ?81.6 kg), [place] -15 mL) 00 :00 Intravenou Medica l injection s, ONCE, 1 Bran ch 16.32 mL dose, On 11/04/22 at 1100, Routine levoFLOXaci 2022- No 250mg 250 mg, U nivers n 6-04 06-05 Oral, Q24H ity of (LEVAQUIN) 00:45: 17:07 ABX, 3 [place] tablet 250 00 :05 doses, Medical mg First dose Branch on 11/03/22 at 1945, Last dose on 11/05/22 at 1945, DAKOTAH
Re ason for Anti-Infec tive: Documented Infection< br>Documen beth Infection Site: Urine
D uration of Therapy: Other (see Comments) apixaban Yes 1477 5mg 5 mg, Univers (ELIQUIS) 11-03 Oral, BID, ity of tablet 5 mg 23:41: First dose [place] 31 (after Medical last Branch modificati on) on 11/03/22 at 2000, Until Discontinu ed, Routine
Indicatio ns: DVT/PE acetaminoph 2022- No 650mg 650 mg, U nivers en 11-02 Oral, ity of (TYLENOL) 16:00: 17:59 ONCE, 1 [place] tablet 650 00 :00 dose, On Medic al mg Sat11/02/22 Branch at 1100, DAKOTAH pantoprazol Yes 40mg 40 mg, Univ ers e 11-02 Oral, ity of (PROTONIX) 14:00: DAILY, [place] EC tablet 00 First dose Medi corby 40 mg on Sat Branch 11/02/22 at 0900, Until Discontinu ed, Routine insulin Yes 4U 4 Units, Univer s glargine 11-02 Subcutaneo ity o f (LANTUS 14:00: us, DAILY, [place] U-100) 00 First dose Medical injection 4 on Sat Branch Units 11/02/22 at 0900, Until Discontinu ed citalopram Yes 40mg 40 mg, Unive rs (CELEXA) 11-02 Oral, ity of tablet 40 14:00: DAILY, [place] mg 00 First dose Medical on Sat Branch 11/02/22 at 0900, Until Discontinu ed, Routine Sliding Yes Subcutaneo Univ ers Scale 11-02 us, TID ity of Insulin - 13:00: MEALS+HS, [place] Lispro 00 First dose Medical (HumaLOG) on Sat Branch 11/02/22 at 0800, Until Discontinu ed, Routine lamoTRIgine Yes 200mg 200 mg, Un meri (LAMICTAL) 11-02 Oral, BID, ity of tablet 200 13:00: First dose [place] mg 00 on Sat [facility] 11/02/22 at Branch 0800, Until Discontinu ed, Routine gabapentin 2022- No 900mg 900 mg, Un meri (NEURONTIN) 11-0205 Oral, TID, i ty of capsule 900 13:00: 14:44 First dose [place] mg 00 :53 on [facility] 11/02/22 at Branch 0800, Until Discontinu ed, Routine apixaban 2022- No 1477 5mg 5 mg, Univers (ELIQUIS) 11-02 Oral, BID, ity of tablet 5 mg 13:00: 19:33 First dose [place] 00 :24 on [facility] 11/02/22 at Branch 0800, Until Discontinu ed, Routine
Indicatio ns: DVT/PE glucagon Yes 1mg 1 mg, Univers (GLUCAGEN 11-02 Intramuscu ity of DIAGNOSTIC 11:31: [place], PRN, [place] KIT) 20 Starting Medical injection 1 on Sat [facility] 11/02/22 at 0631, Until Discontinu ed, DAKOTAH, Blood Glucose < or = 70 mg/dL and patient is NPO, unable to swallow or has mental changes. dextrose 50 Yes 25mL 25 mL, Univ ers % in water 11-02 Slow IV ity of (D50W) 11:31: Push, PRN, [place] injection 20 Starting Medica l 25 mL on Sat [place] 11/02/22 at 0631, Until Discontinu ed, DAKOTAH, Blood Glucose < or = 70 mg/dL and patient is NPO, unable to swallow or has mental status changes. pramipexole Yes .25mg 0.25 mg, U nivers (MIRAPEX) 11-02 Oral, TID, ity of tablet 0.25 07:45: First dose [place] mg 00 on [facility] 11/02/22 at Branch 0245, Until Discontinu ed, Routine LORazepam 2022- No 2mg 2 mg, Slow U nivers (ATIVAN) 11-02 IV Push, ity of injection 2 07:15: 06:43 ONCE, 1 [place] mg 00 :00 dose, On Medical Sat11/02/22 Branch at 0215, Routine LORazepam 2022- No 1mg 1 mg, Univer s (ATIVAN) 11-02 Oral, ONCE ity of tablet 1 mg 04:18: 04:27 PRN, 1 [place] 32 :00 dose, Medical Starting Branch on Sat11/01/22 at 2318, Until Geri 11/01/22 at 2327, Routine, Agitation, mri acetaminoph Yes 650mg 650 mg, Un meri en 11-02 Oral, ity of (TYLENOL) 02:19: Q6HPRN, [place] tablet 650 40 Starting Medic al mg on [place] Branch 11/01/22 at 2119, Until Discontinu ed, Routine, Pain (scale 4-6) docusate Yes 100mg 100 mg, Unive rs (COLACE) 11-02 Oral, ity of capsule 100 02:19: QDAILYPRN, [place] mg 40 Starting Medical on [place] Branch 11/01/22 at 2119, Until Discontinu ed, Routine, Constipati on iopamidol 2022- No [id number] 89mL 89 mL, U nivers (ISOVUE 11-01 Intravenou ity o f 370-500 mL) 19:51: 19:51 s, ONCE, 1 [place] injection 00 :00 dose, On Medica l 89 mL [facility] 11/01/22 Branch at 1515, Routine diazePAM 2022- No 5mg 5 mg, Slow Un meri (VALIUM) 11-01 IV Push, ity of injection 5 19:30: 19:30 ONCE, 1 [place] mg 00 :00 dose, On Medical Sat11/01/22 Branch at 1430, STAT cefTRIAXone 2022- No 1000mg 1,000 mg, Univers (ROCEPHIN) 09-08-08 IV ity of 1,000 mg in 08:15: 08:18 Piggyback, [place] NaCl 0.9% 00 :00 ONCE, 1 Medical (NS) 100 mL dose, On Bran ch MINI-BAG 09/08/22 at 0315, Administer over 30 Minutes, 100 mL
Reas on for Anti-Infec tive: Documented Infection< br>Documen beth Infection Site: Urine<br&g t;Duration of Therapy: Other (see Comments) iopamidol 2022- No [id number] 120mL 120 mL, Univers (ISOVUE 4-08 04-08 Intravenou ity o f 370-500 mL) 07:00: 07:00 s, ONCE, 1 [place] injection 00 :00 dose, On Medica l 120 mL 09/08/22 Branch at 0200, Routine NaCl 0.9% Yes 5mL 5 mL, Slow Un meri (NS) 4-08 IV Push, ity of injection 5 05:34: PRN - SEE [place] mL 52 INSTRUCTIO Medical NS, Branch Starting on 09/08/22 at 0034, Until Discontinu ed, 10 mL cefdinir Yes [id number] 300mg Take 1 Un meri 300 mg 4-08 capsule by ity of capsule 00:00: mouth [place] 00 every 12 Medical (twelve) Branch hours. cefdinir 0 2022- No [id number] 300mg Take 1 U nivers 300 mg 4-08 06-05 capsule by ity of capsule 00:00: 00:00 mouth [place] 00 :00 every 12 Medical (twelve) Branch hours. lamoTRIgine 2021-06 Yes See Memori a 200 mg oral 1-17 Instructio l tablet 20:03: ns, TAKE 1 [place]ian[place] nn 00 TABLET BY MOUTH TWICE A DAY^1R1,1R 4, # 60 tab, 3 Refill(s), Pharmacy: [facility], 162.56, cm, 03/13/22 13:29:00 CDT, Height, 80, kg, 03/13/22 13:29:00 CDT, Weight lamoTRIgine 2021-06 Yes See Memori a 200 mg oral 1-17 Instructio l tablet 20:03: ns, TAKE 1 [place] nn 00 TABLET BY MOUTH TWICE A DAY^1R1,1R 4, # 60 tab, 3 Refill(s), Pharmacy: [facility], 162.56, cm, 03/13/22 13:29:00 CDT, Height, 80, kg, 03/13/22 13:29:00 CDT, Weight lamoTRIgine 2021-06 Yes See Memori a 200 mg oral 1-17 Instructio l tablet 20:03: ns, TAKE 1 [place] nn 00 TABLET BY MOUTH TWICE A DAY^1R1,1R 4, # 60 tab, 3 Refill(s), Pharmacy: [facility], 162.56, cm, 03/13/22 13:29:00 CDT, Height, 80, kg, 03/13/22 13:29:00 CDT, Weight lamoTRIgine 2021-06 Yes See Memori a 200 mg oral 1-17 Instructio l tablet 20:03: ns, TAKE 1 [place] nn 00 TABLET BY MOUTH TWICE A DAY^1R1,1R 4, # 60 tab, 3 Refill(s), Pharmacy: [facility] [place], 162.56, cm, 03/13/22 13:29:00 CDT, Height, 80, kg, 03/13/22 13:29:00 CDT, Weight lamoTRIgine 0 Yes See Memori a 200 mg oral 8-22 Instructio l tablet 18:34: ns, TAKE [place] 00 ONE (1) TABLET BY MOUTH TWICE DAILY, # 60 tab, 3 Refill(s), [place] [facility] [place], cm, 01/22/22 13:19:00 CDT, Height, 75.682, kg, 01/22/22 13:19:00 CDT, Weight lamoTRIgine 2021-0 Yes See Memori a 200 mg oral 8-22 Instructio l tablet 18:34: ns, TAKE [place] 00 ONE (1) TABLET BY MOUTH TWICE DAILY, # 60 tab, 3 Refill(s), [place] [facility] [place] 165.[place], cm, 01/22/22 13:19:00 CDT, Height, 75.682, kg, 01/22/22 13:19:00 CDT, Weight lamoTRIgine 2021-0 Yes See Memori a 200 mg oral 8-22 Instructio l tablet 18:34: ns, TAKE [place] 00 ONE (1) TABLET BY MOUTH TWICE DAILY, # 60 tab, 3 Refill(s), Pharmacy: [facility], 165.1, cm, 01/22/22 13:19:00 CDT, Height, 75.682, kg, 01/22/22 13:19:00 CDT, Weight lamoTRIgine 0 Yes See Memori a 200 mg oral 8-22 Instructio l tablet 18:34: ns, TAKE ONE (1) TABLET BY MOUTH TWICE DAILY, # 60 tab, 3 Refill(s), Pharmacy: [facility], 165.1, cm, 01/22/22 13:19:00 CDT, Height, 75.682, kg, 01/22/22 13:19:00 CDT, Weight rosuvastati 2021-0 Yes 0 Memori a n 5 mg oral 8-22 Refill(s) l tablet 18:31: rosuvastati 2021-0 Yes 0 Memori a n 5 mg oral 8-22 Refill(s) l tablet 18:31: rosuvastati 2021-0 Yes 0 Memori a n 5 mg oral 8-22 Refill(s) l tablet 18:31: [place] 00 rosuvastati 2021-0 Yes 0 Memori a n 5 mg oral 8-22 Refill(s) l tablet 18:31: [place] 00 pioglitazon 2021-0 Yes 0 Memori a e 30 mg 8-22 Refill(s) l oral tablet 18:20: [place] pioglitazon 2021-0 Yes 0 Memori a e 30 mg 8-22 Refill(s) l oral tablet 18:20: Guille n pioglitazon 2021-0 Yes 0 Memori a e 30 mg 8-22 Refill(s) l oral tablet 18:20: Guille n pioglitazon 2021-0 Yes 0 Memori a e 30 mg 8-22 Refill(s) l oral tablet 18:20: [place] lisinopriL 2021-0 2022- No [id number] 5mg Take 1 Univers 5 mg tablet 8-17 11-16 tablet by it y of 00:00: 05:59 mouth in [place] 00 :00 the [facility] for 90 days. lisinopriL 2021-0 2021- No [id number] 5mg Take 1 Univers 5 mg tablet 8-17 11-16 tablet by it y of 00:00: 05:59 mouth in [place] 00 :00 [facility] for 90 days. lisinopriL 2021-2021- No [id number] 5mg Take 1 Univers 5 mg tablet 8-17 11-16 tablet by it y of 00:00: 05:59 mouth in [place] 00 :00 [facility] for 90 days. lisinopriL 2021-0 2021- No [id number] 5mg Take 1 Univers 5 mg tablet 8-17 11-16 tablet by it y of 00:00: 05:59 mouth in [place] 00 :00 [facility] for 90 days. lisinopriL 2021-2021- No [id number] 5mg Take 1 Univers 5 mg tablet 8-17 11-16 tablet by it y of 00:00: 05:59 mouth in [place] 00 :00 [facility] for 90 days. lisinopriL 2021-2021- No [id number] 5mg Take 1 Univers 5 mg tablet 8-17 11-16 tablet by it y of 00:00: 05:59 mouth in [place] 00 :00 [facility] for 90 days. lisinopriL 2021-0 2021- No [id number] 5mg Take 1 Univers 5 mg tablet 8-17 11-16 tablet by it y of 00:00: 05:59 mouth in [place] 00 :00 [facility] for 90 days. lisinopriL Yes 5mg 5 mg, Univer s (PRINIVIL,Z 01-16 Oral, ity of ESTRIL) 15:00: DAILY, [place] tablet 5 mg 00 First dose Me dical on Sat [place] 01/16/22 at 1000, Until Discontinu ed, Routine cefTRIAXone 2021- No 1000mg 1,000 mg, Univers (ROCEPHIN) 01-1618 Intravenou it y of 1,000 mg in 14:15: 14:14 s, Q24H [place] NaCl 0.9% 00 :00 ABX, 2 Medical (NS) 50 mL doses, Branch MINI-BAG First dose on Sat01/16/22 at 0915, Last dose on Sat01/17/22 at 0915, Administer over 30 Minutes, 50 mL
Reas on for Anti-Infec tive: Empiric Therapy for Suspected Infection< br>Empiric Therapy Site: Urine
D uration of therapy: 72 hours lamoTRIgine 2021-0 Yes 200mg 200 mg, Un meri (LAMICTAL) 8-16 Oral, BID, ity of tablet 200 13:00: First dose [place] mg 00 on [facility] 01/16/22 at Branch 0800, Until Discontinu ed, Routine gabapentin 2021-0 Yes 300mg 300 mg, Uni vers (NEURONTIN) 8-16 Oral, TID, it y of capsule 300 13:00: First dose [place] mg 00 on [facility] 01/16/22 at [place] 0800, Until Discontinu ed, Routine pramipexole 2021-0 Yes 2mg 2 mg, Unive rs (MIRAPEX) 8-16 Oral, TID, ity of tablet 2 mg 02:30: First dose [place] 00 (after Medical last Branch modificati on) on Sat01/15/22 at 2130, Until Discontinu ed rosuvastati 0 Yes 5mg 5 mg, Unive rs n (CRESTOR) 8-16 Oral, QHS, it y of tablet 5 mg 02:00: First dose [place] 00 on [facility] 01/15/22 at Branch 2100, Until Discontinu ed, Routine apixaban 2021-0 Yes 5mg 5 mg, Univers (ELIQUIS) 8-16 Oral, BID, ity of tablet 5 mg 01:00: First dose [place] 00 on [facility] 01/15/22 at [place] 1999, Until Discontinu ed, Routine
Indicatio ns: DVT/PE famotidine 2021-0 Yes 20mg 20 mg, Unive rs (PEPCID AC) 8-16 Oral, BID, it y of tablet 20 01:00: First dose [place] mg 00 on [facility] 01/15/22 at [place] 1999, Until Discontinu ed, Routine Insulin 2021-0 Yes [id number] 5U inject 5 Un meri Glargine 8-16 Units ity of (BASAGLAR 00:00: under the [place] as KWIKPEN 00 skin in Medical U-100 [facility] INSULIN) morning. 100 unit/mL (3 mL) injection Insulin 2021-0 Yes [id number] 5U inject 5 Un meri Glargine 8-16 Units ity of (BASAGLAR 00:00: under the [place] as KWIKPEN 00 skin in Medical U-100 the Branch INSULIN) morning. 100 unit/mL (3 mL) injection Insulin 2021-0 Yes [id number] 5U inject 5 Un meri Glargine 8-16 Units ity of (BASAGLAR 00:00: under the [place] as KWIKPEN 00 skin in Medical U-100 the Branch INSULIN) morning. 100 unit/mL (3 mL) injection Insulin 2021-0 Yes [id number] 5U inject 5 Un meri Glargine 8-16 Units ity of (BASAGLAR 00:00: under the [place] as KWIKPEN 00 skin in Medical U-100 the Branch INSULIN) morning. 100 unit/mL (3 mL) injection Insulin 2021-0 Yes [id number] 5U inject 5 Un meri Glargine 8-16 Units ity of (BASAGLAR 00:00: under the [place] as KWIKPEN 00 skin in Medical U-100 the Branch INSULIN) morning. 100 unit/mL (3 mL) injection Insulin 2021-0 Yes [id number] 5U inject 5 Un meri Glargine 8-16 Units ity of (BASAGLAR 00:00: under the [place] as KWIKPEN 00 skin in Medical U-100 the Branch INSULIN) morning. 100 unit/mL (3 mL) injection Insulin 2021-0 Yes [id number] 5U inject 5 Un meri Glargine 8-16 Units ity of (BASAGLAR 00:00: under the [place] as KWIKPEN 00 skin in Medical U-100 the Branch INSULIN) morning. 100 unit/mL (3 mL) injection Insulin 2021-0 Yes [id number] 5U inject 5 Un meri Glargine 8-16 Units ity of (BASAGLAR 00:00: under the [place] as KWIKPEN 00 skin in Medical U-100 the Branch INSULIN) morning. 100 unit/mL (3 mL) injection Insulin 2021-0 Yes [id number] 5U inject 5 Un meri Glargine 8-16 Units ity of (BASAGLAR 00:00: under the [place] as KWIKPEN 00 skin in Medical U-100 the Branch INSULIN) morning. 100 unit/mL (3 mL) injection Insulin Yes [id number] 5U inject 5 Un meri Glargine 8-16 Units ity of (BASAGLAR 00:00: under the [place] as KWIKPEN 00 skin in Medical U-100 the Branch INSULIN) morning. 100 unit/mL (3 mL) injection Insulin Yes [id number] 5U inject 5 Un meri Glargine 8-16 Units ity of (BASAGLAR 00:00: under the [place] as KWIKPEN 00 skin in Medical U-100 the Branch INSULIN) morning. 100 unit/mL (3 mL) injection Insulin Yes [id number] 5U inject 5 Un meri Glargine 8-16 Units ity of (BASAGLAR 00:00: under the [place] as KWIKPEN 00 skin in Medical U-100 the Branch INSULIN) morning. 100 unit/mL (3 mL) injection rosuvastati 2021- No [id number] 5mg Take 1 Univers n 5 mg 8-16 11-15 tablet by ity of tablet 00:00: 05:59 mouth at [place] 00 :00 bedtime Medical for 90 Branch days. pioglitazon 2021- No [id number] 30mg Take 1 Univers e 30 mg 8-16 11-15 tablet by ity of tablet 00:00: 05:59 mouth in [place] 00 :00 the Medical morning Branch for 90 days. rosuvastati 2021- No [id number] 5mg Take 1 Univers n 5 mg 8-16 11-15 tablet by ity of tablet 00:00: 05:59 mouth at [place] 00 :00 bedtime Medical for 90 Branch days. pioglitazon 2021- No [id number] 30mg Take 1 Univers e 30 mg 8-16 11-15 tablet by ity of tablet 00:00: 05:59 mouth in [place] 00 :00 the Medical morning Branch for 90 days. rosuvastati 2021- No [id number] 5mg Take 1 Univers n 5 mg 8-16 11-15 tablet by ity of tablet 00:00: 05:59 mouth at [place] 00 :00 bedtime Medical for 90 Branch days. pioglitazon No [id number] 30mg Take 1 Univers e 30 mg 8-16 11-15 tablet by ity of tablet 00:00: 05:59 mouth in [place] 00 :00 the Medical morning Branch for 90 days. rosuvastati 2021- No [id number] 5mg Take 1 Univers n 5 mg 8-16 11-15 tablet by ity of tablet 00:00: 05:59 mouth at [place] 00 :00 bedtime Medical for 90 Branch days. pioglitazon 2021- No [id number] 30mg Take 1 Univers e 30 mg 8-16 11-15 tablet by ity of tablet 00:00: 05:59 mouth in [place] 00 :00 the Medical morning Branch for 90 days. rosuvastati No [id number] 5mg Take 1 Univers n 5 mg 8-16 11-15 tablet by ity of tablet 00:00: 05:59 mouth at [place] 00 :00 bedtime Medical for 90 Branch days. pioglitazon No [id number] 30mg Take 1 Univers e 30 mg 8-16 11-15 tablet by ity of tablet 00:00: 05:59 mouth in [place] 00 :00 the Medical morning Branch for 90 days. rosuvastati No [id number] 5mg Take 1 Univers n 5 mg 8-16 11-15 tablet by ity of tablet 00:00: 05:59 mouth [facility] [place] [facility] Branch [facility] pioglitazon No [id number] 30mg Take 1 Univers e 30 mg 8-16 11-15 tablet by ity of tablet 00:00: 05:59 mouth in [place] 00 :00 the Medical morning Branch for 90 days. rosuvastati 2021- No [id number] 5mg Take 1 Univers n 5 mg 8-16 11-15 tablet by ity of tablet 00:00: 05:59 mouth at [place] 00 :00 bedtime Medical for 90 Branch days. pioglitazon 2021- No [id number] 30mg Take 1 Univers e 30 mg 8-16 11-15 tablet by ity of tablet 00:00: 05:59 mouth in [place] 00 :00 the [facility] Branch for 90 days. sulfamethox 2021- No [id number] 1{tbl} Take 1 Univers azole-trime -16 - tablet by it y of thoprim 00:00: 04:59 mouth in [place] (BACTRIM 00 :00 the Medical DS) 800-160 morning Branc h mg per and 1 tablet tablet in the evening. Do all this for 5 days. sulfamethox 2021- No [id number] 1{tbl} Take 1 Univers azole-trime -16 01-22 tablet by it y of thoprim 00:00: 04:59 mouth in [place] (BACTRIM 00 :00 the Medical DS) 800-160 morning Branc h mg per and 1 tablet tablet in the evening. Do all this for 5 days. pioglitazon 2021- No [id number] 30mg Take 2 Univers e 15 mg 01-16 tablets by ity o f tablet 00:00: 00:00 mouth in [place] 00 :00 the [facility] for 90 days. diphenhydrA Yes 25mg 25 mg, Univ ers MINE 8-15 Oral, PRN, ity of (BENADRYL) 23:58: 1 dose, [place] tablet 25 24 Starting Medica l mg on Sat Branch 01/15/22 at 1858, Until Discontinu ed, Routine, before MRI Sliding Yes Subcutaneo Univ ers Scale 8-15 us, TID ity of Insulin - 22:00: MEALS+HS, [place] as Lispro 00 First dose Medical (HumaLOG) + on Sat [place] [facility] 01/15/22 at Testing 1700, Until Discontinu ed, Routine NaCl 0.9% Yes 1000mL at 75 Unive rs (NS) IV 8-15 mL/hr, IV ity of infusion 20:00: Infusion, [place] 1,000 mL 00 CONTINUOUS Medic al , Starting Branch on [facility] 01/15/22 at 1500, Until Discontinu ed, Routine&lt ;br>To keep vein open.
labetaloL Yes 10mg 10 mg, Univer s (NORMODYNE) 8-15 Slow IV ity o f injection 19:50: Push, PRN, [place] 10 mg 52 Starting Medical on Mon Branch 01/15/22 at 1450, Until Discontinu ed, Routine, SBP > 220 or DBP > 110 iopamidol 2021- No [id number] 100mL 100 mL, Univers (ISOVUE 01-15 Intravenou ity o f 370-500 mL) 18:30: 17:07 s, ONCE, 1 [place] injection 00 :00 dose, On Medica l 100 mL Mon Branch 01/15/22 at 1330, Routine NaCl 0.9% Yes 5mL 5 mL, Slow Un meri (NS) 01-15 IV Push, ity of injection 5 16:38: PRN - SEE [place] mL 23 INSTRUCTIO Medical NS, Branch Starting on 01/15/22 at 1138, Until Discontinu ed, 10 mL COVID-19 2021- No .25mL 0.25 mL, Uni vers vaccine, Intramuscu i ty of A-PF 17:00: 19:17 lar, [place] (MODERNA, 00 :00 ONCE-PRIOR Medi corby EUA) (LOW TO Branch DOSE DISCHARGE, BOOSTER) 1 dose, 100 mcg/0.5 Starting mL on Sat injection 09/23/21 at 0.25 mL 1200, Until Discontinu ed, DAKOTAH, Give vaccine prior to discharge< br>Is this a third dose for an immunocomp romised patient? No
Mix and Match Vaccine? Booster sulfur 2021- No [id number] 5mL 5 mL, Unive rs hexafluorid 09-23 Intravenou i ty of e microsphr 16:00: 16:00 s, ONCE, 1 [place] (LUMASON) 00 :00 dose, On Medica l injection 5 Sat Branch mL 09/23/21 at 1100, Routine
aboriginal community council member approving Restricted medication : CORDELL FIELDS enoxaparin Yes 1mg/kg 80 mg Univ ers (LOVENOX) 09-23 (rounded ity of injection 01:00: from 75.8 [place] as 80 mg 00 mg = 1 Medical mg/kg Branch ?75.8 kg), Subcutaneo , Q12H, First dose on Sat09/22/21 at 2000, Until Discontinu ed, Routine apixaban 2021-0 Yes 1477 5mg Take 1 Unive rs mg tablet 4-23 tablet by ity o f 00:00: mouth (two) Medical times Branch daily. Take 2 tabs (10mg) two times daily for 7 days followed by 1 tab (5mg) two times daily thereafter indefinite ly. Indication s: blood clots in deep veins and in blood vessel of the lung apixaban 2021- Yes 1477 5mg Take 1 Unive rs mg tablet 4-23 tablet by ity o f 00:00: mouth (two) Medical times Branch daily. Take 2 tabs (10mg) two times daily for 7 days followed by 1 tab (5mg) two times daily thereafter indefinite ly. Indication s: blood clots in deep veins and in blood vessel of the lung apixaban Yes 1477 5mg Take 1 Unive rs mg tablet 4-23 tablet by ity o f 00:00: mouth (two) Medical times Branch daily. Take 2 tabs (10mg) two times daily for 7 days followed by 1 tab (5mg) two times daily thereafter indefinite ly. Indication s: blood clots in deep veins and in blood vessel of the lung apixaban Yes 1477 5mg Take 1 Unive rs mg tablet 4-23 tablet by ity o f 00:00: mouth (two) Medical times Branch daily. Take 2 tabs (10mg) two times daily for 7 days followed by 1 tab (5mg) two times daily thereafter indefinite ly. Indication s: blood clots in deep veins and in blood vessel of the lung apixaban 2021- Yes 1477 5mg Take 1 Unive rs mg tablet 4-23 tablet by ity o f 00:00: mouth (two) Medical times Branch daily. Take 2 tabs (10mg) two times daily for 7 days followed by 1 tab (5mg) two times daily thereafter indefinite ly. Indication s: blood clots in deep veins and in blood vessel of the lung apixaban 5 2022-0 Yes 1477 5mg Take 1 Unive rs mg tablet 4-23 tablet by ity o f 00:00: mouth (two) Medical times Branch daily. Take 2 tabs (10mg) two times daily for 7 days followed by 1 tab (5mg) two times daily thereafter indefinite ly. Indication s: blood clots in deep veins and in blood vessel of the lung apixaban 5 2021-0 Yes 1477 5mg Take 1 Unive rs mg tablet 4-23 tablet by ity o f 00:00: mouth (two) Medical times Branch daily. Take 2 tabs (10mg) two times daily for 7 days followed by 1 tab (5mg) two times daily thereafter indefinite ly. Indication s: blood clots in deep veins and in blood vessel of the lung apixaban 5 2021-0 Yes 1477 5mg Take 1 Unive rs mg tablet 4-23 tablet by ity o f 00:00: mouth (two) Medical times Branch daily. Take 2 tabs (10mg) two times daily for 7 days followed by 1 tab (5mg) two times daily thereafter indefinite ly. Indication s: blood clots in deep veins and in blood vessel of the lung apixaban 5 2021-0 Yes 1477 5mg Take 1 Unive rs mg tablet 4-23 tablet by ity o f 00:00: mouth (two) Medical times Branch daily. Take 2 tabs (10mg) two times daily for 7 days followed by 1 tab (5mg) two times daily thereafter indefinite ly. Indication s: blood clots in deep veins and in blood vessel of the lung apixaban 5 2021-0 Yes 1477 5mg Take 1 Unive rs mg tablet 4-23 tablet by ity o f 00:00: mouth (two) Medical times Branch daily. Take 2 tabs (10mg) two times daily for 7 days followed by 1 tab (5mg) two times daily thereafter indefinite ly. Indication s: blood clots in deep veins and in blood vessel of the lung apixaban 5 2021- Yes 1477 5mg Take 1 Unive rs mg tablet 4-23 tablet by ity o f 00:00: mouth (two) Medical times Branch daily. Take 2 tabs (10mg) two times daily for 7 days followed by 1 tab (5mg) two times daily thereafter indefinite ly. Indication s: blood clots in deep veins and in blood vessel of the lung apixaban 5 2021-0 Yes 1477 5mg Take 1 Unive rs mg tablet 4-23 tablet by ity o f 00:00: mouth () Medical times Branch daily. Take 2 tabs (10mg) two times daily for 7 days followed by 1 tab (5mg) two times daily thereafter indefinite ly. Indication s: blood clots in deep veins and in blood vessel of the lung apixaban 5 2021-0 Yes 1477 5mg Take 1 Unive rs mg tablet 4-23 tablet by ity o f 00:00: mouth () Medical times Branch daily. Take 2 tabs (10mg) two times daily for 7 days followed by 1 tab (5mg) two times daily thereafter indefinite ly. Indication s: blood clots in deep veins and in blood vessel of the lung apixaban 5 0 Yes 1477 5mg Take 1 Unive rs mg tablet 4-23 tablet by ity o f 00:00: mouth () Medical times [place] daily. Take 2 tabs (10mg) two times daily for 7 days followed by 1 tab (5mg) two times daily thereafter indefinite ly. Indication s: blood clots in deep veins and in blood vessel of the lung apixaban 5 2021-0 Yes 1477 5mg Take 1 Unive rs mg tablet 4-23 tablet by ity o f 00:00: mouth () Medical times Branch daily. Take 2 tabs (10mg) two times daily for 7 days followed by 1 tab (5mg) two times daily thereafter indefinite ly. Indication s: blood clots in deep veins and in blood vessel of the lung rOPINIRole Yes 2mg 2 mg, Univer s (REQUIP) 09-22 Oral, TID, ity o f tablet 2 mg 19:00: First dose on Sat09/22/21 at Branch 1400, Until Discontinu ed, Routine gabapentin Yes 600mg 600 mg, Uni vers (NEURONTIN) 09-22 Oral, TID, it y of capsule 600 19:00: First dose [place] mg 00 on Sat Medical 09/22/21 at Branch 1400, Until Discontinu ed, Routine Sliding Yes Subcutaneo Univ ers Scale 09-22 us, TID ity of Insulin - 17:00: MEALS+HS, [place] Lispro 00 First dose Medical (HumaLOG) + on Sat [facility] 09/22/21 at Testing 1200, Until Discontinu ed, Routine lamoTRIgine Yes 200mg 200 mg, Un meri (LAMICTAL) 09-22 Oral, BID, ity of tablet 200 15:00: First dose [place] mg 00 on Sat Medical 09/22/21 at Branch 1000, Until Discontinu ed, Routine citalopram Yes 40mg 40 mg, Unive rs (CELEXA) 09-22 Oral, ity of tablet 40 15:00: DAILY, [place] mg 00 First dose Medical on Sat Branch 09/22/21 at 1000, Until Discontinu ed, Routine acetaminoph Yes 650mg 650 mg, Un meri en 09-22 Oral, ity of (TYLENOL) 14:24: Q6HPRN, [place] tablet 650 03 Starting Medic al mg on Sat Branch 09/22/21 at 0924, Until Discontinu ed, Routine, Pain (scale 1-3) glucagon Yes 1mg 1 mg, Univers (GLUCAGEN 09-22 Intramuscu ity of DIAGNOSTIC 14:22: lar, PRN, [place] KIT) 32 Starting Medical injection 1 on Sat Branch mg 09/22/21 at 0922, Until Discontinu ed, DAKOTAH, Blood Glucose < or = 70 mg/dL and patient is unable to swallow or has mental changes. enoxaparin 2021- No 1mg/kg 80 mg Uni vers (LOVENOX) 09-22 (rounded ity o f injection 12:45: 12:10 from 75.8 [place] 80 mg 00 :00 mg = 1 Medical mg/kg Branch ?75.8 kg), Subcutaneo us, ONCE, 1 dose, On Sat09/22/21 at 0745, DAKOTAH iopamidol 2021- No [id number] 100mL 100 mL, Univers (ISOVUE 09-22 Intravenou ity o f 370-500 mL) 11:45: 10:42 s, ONCE, 1 [place] injection 00 :00 dose, On Medica l 100 mL Fri Branch 09/22/21 at 0645, Routine insulin 2021-0 Yes 18U QD Inject 18 Metho di GLARGINE 3-[address] (Basaglar 18:16: under the Hos preeti KwikPen 00 skin l U-100 nightly. Insulin) 100 unit/mL injection (pen) apixaban 0 Yes 5mg Q.5D Take 5 mg Meth ebenezer (ELIQUIS) 5 3-[address] mg tablet 18:16: (two) Hospita 00 times a l day. ferrous 2021-0 Yes 325mg QD Take 325 Metho di sulfate 325 3-[address] (65 FE) MG 18:16: mouth Hospit a tablet 00 daily with l breakfast. rosuvastati 2021-0 Yes [id number] Take by Methodi n calcium 3-15 [id number] mouth 3 s t (ROSUVASTAT 18:16: 3W (three) Hos preeti IN ORAL) 00 times a l week. Pt doesn't remember the dosage rOPINIRole 0 Yes 2mg Q.[id number] Take 2 mg Methodi (REQUIP) 1 3-14 [id number] mouth [address] MG tablet 19:14: 3D (three) Hospi ta 05 times a l day. gabapentin 2021-0 Yes 600mg Q.[id number] Take 600 Methodi (NEURONTIN) 3-14 [id number] mg by s t 300 mg 19:14: 3D mouth 3 Hospita capsule 05 (three) l times a day. metFORMIN 2021-0 Yes 1000mg Q.5D Take 1,000 Methodi (GLUCOPHAGE 3-[address] ) 1,000 mg 19:14: mouth 2 Hosp wu tablet 05 (two) l times a day with meals. citalopram 2021-0 Yes 40mg QD Take 40 mg M ethodi (CeleXA) 40 3-[address] MG tablet 19:14: daily. Hospit a 05 l clopidogreL 2021-0 Yes 75mg QD Take 75 mg Methodi (PLAVIX) 75 3-[address] mg tablet 19:14: daily. Hospit a 05 l lamoTRIgine 2021-0 Yes 200mg Q.5D Take 200 M ethodi (LaMICtal) 3-[address] 200 MG 19:14: mouth 2 Hospita tablet 05 (two) l times a day. 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, 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 lamoTRIgine 2021-0 Yes See Memori a 200 mg oral 3-09 Instructio l tablet 18:22: ns, TAKE [place] 00 ONE (1) TABLET BY MOUTH TWICE DAILY, # 60 tab, 3 Refill(s), Pharmacy: [facility], 165.1, cm, 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, 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, 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, kg, 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, 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 lamotrigine 2020- Yes = 1 tab, Me moria 200 MG Oral 0-13 PO, BID, # l Tablet 22:55: 60 tab, 3 Gu[place] n 00 Refill(s), Pharmacy: [facility], 162.56, cm, 02/08/21 14:52:00 CDT, Height, 82.727, kg, 02/08/21 14:52:00 CDT, Weight lamotrigine 2020-06 Yes = 1 tab, Me moria 200 MG Oral 0-13 PO, BID, # l Tablet 22:55: 60 tab, 3 [place] 00 Refill(s), Pharmacy: [facility], 162.56, cm, 02/08/21 14:52:00 CDT, Height, 82.727, kg, 02/08/21 14:52:00 CDT, Weight lamotrigine 2020-06 Yes = 1 tab, Me moria 200 MG Oral 0-13 PO, BID, # l Tablet 22:55: 60 tab, 3 [place] 00 Refill(s), Pharmacy: [facility], 162.56, cm, 02/08/21 14:52:00 CDT, Height, 82.727, kg, 02/08/21 14:52:00 CDT, Weight lamotrigine 2020-06 Yes = 1 tab, Me moria 200 MG Oral 0-13 PO, BID, # l Tablet 22:55: 60 tab, 3 [place] 00 Refill(s), Pharmacy: [facility], 162.56, cm, 02/08/21 14:52:00 CDT, Height, 82.727, kg, 02/08/21 14:52:00 CDT, Weight apixaban 5 2020-0 Yes 5 mg, PO, Me moria MG Oral 9-08 Q12H, tab, l Tablet 20:15: 3 [place] [Eliquis] 00 Refill(s) Eliquis 5 2020-0 Yes 5 mg, PO, Mem oria mg oral 9-08 Q12H, tab, l tablet 20:15: 3 [place] 00 Refill(s) apixaban 5 2020-0 Yes 5 mg, PO, Me moria MG Oral 9-08 Q12H, tab, l Tablet 20:15: 3 [place] [Eliquis] 00 Refill(s) Eliquis 5 2020-0 Yes 5 mg, PO, Mem oria mg oral 9 Q12H, tab, l tablet 20:15: 3 Refill(s) apixaban 5 2020-0 Yes 5 mg, PO, Me moria MG Oral 02-08 Q12H, tab, l Tablet 20:15: 3 [place] [Eliquis] 00 Refill(s) Eliquis 5 2020-0 Yes 5 mg, PO, Mem oria mg oral 9 Q12H, tab, l tablet 20:15: 3 [place] 00 Refill(s) apixaban 5 2020-0 Yes 5 mg, PO, Me moria MG Oral 02-08 Q12H, tab, l Tablet 20:15: 3 [place] [Eliquis] 00 Refill(s) Eliquis 5 2020-0 Yes 5 mg, PO, Mem oria mg oral 02-08 Q12H, tab, l tablet 20:15: 3 Refill(s) lactobacill 2020-0 Yes .5mg 0.5 mg, Uni vers us 8-24 Oral, BID, ity of acidophilus 13:00: First dose [place] tablet 0.5 00 on Tue Medical mg 01/24/21 at Branch 0800, Until Discontinu ed, Routine amoxicillin 2020-0 Yes 500mg 500 mg, Un meri -pot 8-24 Oral, TID, ity of clavulanate 13:00: First dose [place] 500 mg 00 on e Medical (AUGMENTIN 01/24/21 at [facility] 500) 0800, 500-125 mg Until tablet 500 Discontinu mg ed, DAKOTAH
Re ason for Anti-Infec tive: Empiric Therapy for Suspected Infection< br>Empiric Therapy Site: Urine
D uration of therapy: 7 days lactobacill 2020-0 Yes .5mg 0.5 mg, Uni vers us 8-24 Oral, BID, ity of acidophilus 13:00: First dose [place] tablet 0.5 00 on Tue Medical mg 01/24/21 at Branch 0800, Until Discontinu ed, Routine amoxicillin 1-0 Yes 500mg 500 mg, Un meri -pot 8-24 Oral, TID, ity of clavulanate 13:00: First dose [place] 500 mg 00 on e Medical (AUGMENTIN 01/24/21 at [facility] 500) 0800, 500-125 mg Until tablet 500 Discontinu mg ed, DAKOTAH
Re ason for Anti-Infec tive: Empiric Therapy for Suspected Infection< br>Empiric Therapy Site: Urine
D uration of therapy: 7 days lactobacill 2020- No [id number] .5mg Take 1 [facility] 01-24 tablet by ity of acidophilus 00:00: 04:59 mouth 2 [place] 00 :00 (two) Medical times Branch daily for 30 days. lactobacill 2020- No [id number] .5mg Take 1 [facility] 01-24 tablet by ity of acidophilus 00:00: 04:59 mouth 2 [place] 00 :00 (two) Medical times Branch daily for 30 days. lactobacill 2020- No [id number] .5mg Take 1 [facility] 01-24 tablet by ity of acidophilus 00:00: 04:59 mouth 2 [place] 00 :00 (two) Medical times Branch daily for 30 days. lactobacill 2020- No [id number] .5mg Take 1 [facility] 01-24 tablet by ity of acidophilus 00:00: 04:59 mouth 2 [place] 00 :00 (two) Medical times Branch daily for 30 days. lactobacill 2020- No [id number] .5mg Take 1 [facility] 01-24 tablet by ity of acidophilus 00:00: 04:59 mouth 2 [place] 00 :00 (two) Medical times Branch daily for 30 days. lactobacill 2020- No [id number] .5mg Take 1 [facility] 01-24 tablet by ity of acidophilus 00:00: 04:59 mouth 2 [place] 00 :00 (two) Medical times Branch daily for 30 days. amoxicillin 2020- No [id number] 500mg Take 1 [facility] 01-24 tablet by ity of clavulanate 00:00: 04:59 mouth 3 [place] 500 mg 00 :00 (three) Medical 500-125 mg times Branch tablet daily for 10 days. amoxicillin 2020- No [id number] 500mg Take 1 [facility] -pot 01-24- tablet by ity of clavulanate 00:00: 04:59 mouth 3 [place] 500 mg 00 :00 (three) Medical 500-125 mg times Branch tablet daily for 10 days. amoxicillin 2020- No [id number] 500mg Take 1 [facility] -pot 01-24 tablet by ity of clavulanate 00:00: 04:59 mouth 3 [place] 500 mg 00 :00 (three) Medical 500-125 mg times Branch tablet daily for 10 days. amoxicillin 2020- No [id number] 500mg Take 1 [facility] -pot 01-24 tablet by ity of clavulanate 00:00: 04:59 mouth 3 [place] 500 mg 00 :00 (three) Medical 500-125 mg times Branch tablet daily for 10 days. Sliding Yes [facility] ers Scale 8- , TID ity of Insulin - 17:00: MEALS+HS, [place] Lispro 00 First dose Medical (HumaLOG) + on Sat Branch Fsbg 01/21/21 at Testing 1200, Until Discontinu ed, Routine Sliding Yes [facility] ers Scale 8- , TID ity of Insulin - 17:00: MEALS+HS, [place] Lispro 00 First dose Medical (HumaLOG) + on Sat Branch Fsbg 01/21/21 at Testing 1200, Until Discontinu ed, Routine iopamidol 2020- No [id number] 100mL 100 mL, Univers (ISOVUE 01-21 Intravenou ity o f 370-500 mL) 16:45: 15:22 s, ONCE, 1 [place] injection 00 :00 dose, Sat Medic al 100 mL 01/21/21 at Branch 1145, Routine iopamidol 2020- No [id number] 100mL 100 mL, Univers (ISOVUE 01-21 Intravenou ity o f 370-500 mL) 16:45: 15:22 s, ONCE, 1 [place] injection 00 :00 dose, Sat Medic al 100 mL 01/21/21 at Branch 1145, Routine rOPINIRole 0 Yes 2mg 2 mg, Univer s (REQUIP) 8- Oral, TID, ity o f tablet 2 mg 15:30: First dose 00 on [facility] 01/21/21 at Branch 1030, Until Discontinu ed, Routine rOPINIRole 0 Yes 2mg 2 mg, Univer s (REQUIP) 8 Oral, TID, ity o f tablet 2 mg 15:30: First dose 00 on [facility] 01/21/21 at Branch 1030, Until Discontinu ed, Routine citalopram Yes 40mg 40 mg, Unive rs (CELEXA) 8 Oral, ity of tablet 40 14:00: DAILY, [place] mg 00 First dose Medical on [facility] 01/21/21 at 0900, Until Discontinu ed, Routine citalopram Yes 40mg 40 mg, Unive rs (CELEXA) 8 Oral, ity of tablet 40 14:00: DAILY, [place] mg 00 First dose Medical on [facility] 01/21/21 at 0900, Until Discontinu ed, Routine piperacilli 2020- No 3.375g 3.375 g, Univers n-tazobacta 01-21 IV ity of m (ZOSYN) 14:00: 08:45 [place], [place] 3.375 g in 00 :15 Q6H ABX, Medic al NaCl 0.9% First dose Bran ch (NS) 100 mL on [facility] MINI-BAG 01/21/21 at 0900, Until Discontinu ed, Administer over 30 Minutes, 100 mL
Reas on for Anti-Infec tive: Empiric Therapy for Suspected Infection< br>Empiric Therapy Site: Urine
D uration of therapy: 7 days piperacilli 0 2020- No 3.375g 3.375 g, Univers n-tazobacta 01-2124 IV ity of m (ZOSYN) 14:00: 08:45 [place], [place] 3.375 g in 00 :15 Q6H ABX, Medic al NaCl 0.9% First dose Bran ch (NS) 100 mL on [facility] MINI-BAG 01/21/21 at 0900, Until Discontinu ed, Administer over 30 Minutes, 100 mL
Reas on for Anti-Infec tive: Empiric Therapy for Suspected Infection< br>Empiric Therapy Site: Urine
D uration of therapy: 7 days lamoTRIgine 2021-0 Yes 200mg 200 mg, Un meri (LAMICTAL) 8-21 Oral, BID, ity of tablet 200 13:00: First dose [place] mg 00 on [facility] 01/21/21 at Branch 0800, Until Discontinu ed, Routine gabapentin 2021-0 Yes 600mg 600 mg, Uni vers (NEURONTIN) 8- Oral, TID, it y of capsule 600 13:00: First dose [place] mg 00 on [facility] 01/21/21 at Branch 0800, Until Discontinu ed, Routine apixaban 1-0 Yes 1477 5mg 5 mg, Univers (ELIQUIS) 8 Oral, BID, ity of tablet 5 mg 13:00: First dose [place] 00 on [facility] 01/21/21 at Branch 0800, Until Discontinu ed, Routine lamoTRIgine 2021-0 Yes 200mg 200 mg, Un meri (LAMICTAL) 8 Oral, BID, ity of tablet 200 13:00: First dose [place] mg 00 on [facility] 01/21/21 at Branch 0800, Until Discontinu ed, Routine gabapentin 2021-0 Yes 600mg 600 mg, Uni vers (NEURONTIN) 8 Oral, TID, it y of capsule 600 13:00: First dose [place] mg 00 on [facility] 01/21/21 at Branch 0800, Until Discontinu ed, Routine apixaban 1-0 Yes 1477 5mg 5 mg, Univers (ELIQUIS) 8 Oral, BID, ity of tablet 5 mg 13:00: First dose [place] 00 on [facility] 01/21/21 at Branch 0800, Until Discontinu ed, Routine glipiZIDE 2021-0 Yes 10mg 10 mg, Univer s (GLUCOTROL) 8 Oral, ity of tablet 10 12:30: BIDAC, [place] mg 00 First dose Medical on [facility] 01/21/21 at 0730, Until Discontinu ed, Routine glipiZIDE 2021-0 Yes 10mg 10 mg, Univer s (GLUCOTROL) 8-21 Oral, ity of tablet 10 12:30: BIDAC, [place] mg 00 First dose Medical on Sat Branch 01/21/21 at 0730, Until Discontinu ed, Routine meclizine 2021-0 Yes 25mg 25 mg, [place] [facility] 01-21 Oral, ity of E 12:23: TIDPRN, [place] (MECLIZINE) 00 Starting Medi corby ) tablet 25 Sat Branch mg 01/21/21 at 0723, Until Discontinu ed, Routine, Dizziness meclizine 2021-0 Yes 25mg 25 mg, Univer s (TRAVEL-EAS 01-21 Oral, ity of E 12:23: TIDPRN, [place] (MECLIZINE) 00 Starting Medi [place] ) tablet 25 Sat Branch mg 01/21/21 at 0723, Until Discontinu ed, Routine, Dizziness ondansetron 2020-0 Yes 4mg 4 mg, Slow Univers (ZOFRAN 8 IV Push, ity of (PF)) 07:03: Q6HPRN, [place] injection 4 50 Starting Medi [place] mg Sat Branch 01/21/21 at 0203, Until Discontinu ed, Routine, Nausea and Vomiting (N/V) ondansetron 2020-0 Yes 4mg 4 mg, Slow Univers (ZOFRAN 8-21 IV Push, ity of (PF)) 07:03: Q6HPRN, [place] injection 4 50 Starting Medi corby mg Sat Branch 01/21/21 at 0203, Until Discontinu ed, Routine, Nausea and Vomiting (N/V) acetaminoph 202-0 Yes 650mg 650 mg, Un meri en 01-21 Oral, ity of (TYLENOL) 07:03: Q6HPRN, [place] tablet 650 31 Starting Medic al mg Sat Branch 01/21/21 at 0203, Until Discontinu ed, Routine, Pain (scale 1-3) acetaminoph 2021-0 Yes 650mg 650 mg, Un meri en 01-21 Oral, ity of (TYLENOL) 07:03: Q6HPRN, [place] tablet 650 31 Starting Medic al mg Sat Branch 01/21/21 at 0203, Until Discontinu ed, Routine, Pain (scale 1-3) NaCl 0.9% 2021-0 2021- No 1000mL at 125 Uni vers (NS) IV 01-21 0822 mL/hr, ity of infusion 03:45: 21:57 Intravenou [place] 1,000 mL 00 :15 s, Medical CONTINUOUS Branch , Starting 01/20/21 at 2245, Until 01/22/21 at 1657, Routine NaCl 0.9% No 1000mL at 125 Uni vers (NS) IV 01-21 mL/hr, ity of infusion 03:45: 21:57 Intravenou [place] 1,000 mL 00 :15 s, Medical CONTINUOUS Branch , Starting 01/20/21 at 2245, Until 01/22/21 at 1657, Routine cefTRIAXone No 1000mg 1,000 mg, Univers (ROCEPHIN) 01-21 IV ity of 1,000 mg in 03:45: 03:33 Piggyback, [place] NaCl 0.9% 00 :00 ONCE, 1 Medical (NS) 50 mL dose, Sat Bran ch MINI-BAG 01/20/21 at 2245, Administer over 30 Minutes, 50 mL
R miguel angel for Anti-Infec tive: Documented Infection< br>Documen beth Infection Site: Urine
D uration of Therapy: Other (see Comments) cefTRIAXone No 1000mg 1,000 mg, Univers (ROCEPHIN) 01-21 IV ity of 1,000 mg in 03:45: 03:33 Piggyback, [place] NaCl 0.9% 00 :00 ONCE, 1 Medical (NS) 50 mL dose, Sat Bran ch MINI-BAG 01/20/21 at 2245, Administer over 30 Minutes, 50 mL
R miguel angel for Anti-Infec tive: Documented Infection< br>Documen beth Infection Site: Urine
D uration of Therapy: Other (see Comments) iopamidol 2020- No [id number] 100mL 100 mL, Univers (ISOVUE 01-21 Intravenou ity o f 370-500 mL) 01:45: 00:40 s, ONCE, 1 [place] injection 00 :00 dose, Fri Medic al 100 mL 01/20/21 at Branch 2045, Routine iopamidol 2020- No [id number] 100mL 100 mL, Univers (ISOVUE 01-21 Intravenou ity o f 370-500 mL) 01:45: 00:40 s, ONCE, 1 [place] injection 00 :00 dose, Fri Medic al 100 mL 01/20/21 at Branch 2044, Routine NaCl 0.9% 2020- No 500mL at 999 [facility] ers (NS) bolus 01-21 mL/hr, 500 it y of infusion 01:09: 01:31 mL, IV [place] 500 mL 00 :00 Infusion, Medical ONCE, 1 Branch dose, 01/20/21 at 2014, STAT NaCl 0.9% 2020- No 500mL at 999 [facility] ers (NS) bolus 01-21 mL/hr, 500 it y of infusion 01:09: 01:31 mL, IV [place] 500 mL 00 :00 Infusion, Medical ONCE, 1 Branch dose, 01/20/21 at 2014, STAT clopidogrel Yes 0 Memori a 75 mg oral 7-08 Refill(s) l tablet 15:02: [place] 00 citalopram Yes 40 mg = 1 Me moria 40 mg oral 7-08 tab, PO, l tablet 15:02: Daily, # Yong 00 30 tab, 0 Refill(s) Metformin Yes TAKE ONE Juan srikanth hydrochlori 7-08 (1) TABLET l de 1000 MG 15:02: BY MOUTH Her velásquez Oral Tablet 00 TWICE DAILY clopidogrel Yes 0 Memori a 75 mg oral 7-08 Refill(s) l tablet 15:02: [place] 00 citalopram Yes 40 mg = 1 Me moria 40 mg oral 7-08 tab, PO, l tablet 15:02: Daily, # [place] 00 30 tab, 0 Refill(s) Metformin Yes TAKE ONE Juan srikanth hydrochlori 7-08 (1) TABLET l de 1000 MG 15:02: BY MOUTH Her velásquez Oral Tablet 00 TWICE DAILY clopidogrel Yes 0 Memori a 75 mg oral 7-08 Refill(s) l tablet 15:02: Yong Metformin Yes TAKE ONE Juan srikanth hydrochlori 7-08 (1) TABLET l de 1000 MG 15:02: BY MOUTH Her velásquez Oral Tablet 00 TWICE DAILY citalopram Yes 40 mg = 1 Me moria 40 mg oral 7-08 tab, PO, l tablet 15:02: Daily, # [place] 00 30 tab, 0 Refill(s) metFORMIN Yes TAKE ONE Juan srikanth 1000 mg 7-08 (1) TABLET l oral tablet 15:02: BY MOUTH He rmann 00 TWICE DAILY clopidogrel Yes 0 Memori a 75 mg oral 7-08 Refill(s) l tablet 15:02: [place] Metformin Yes TAKE ONE Juan srikanth hydrochlori 7-08 (1) TABLET l de 1000 MG 15:02: BY MOUTH Her velásquez Oral Tablet 00 TWICE DAILY citalopram Yes 40 mg = 1 Me moria 40 mg oral 7-08 tab, PO, l tablet 15:02: Daily, # [place] 00 30 tab, 0 Refill(s) metFORMIN Yes TAKE ONE Juan srikanth 1000 mg 7-08 (1) TABLET l oral tablet 15:02: BY MOUTH He rmann 00 TWICE DAILY clopidogrel Yes 0 Memori a 75 mg oral 7-08 Refill(s) l tablet 15:02: Yong Metformin Yes TAKE ONE Juan srikanth hydrochlori 7-08 (1) TABLET l de 1000 MG 15:02: BY MOUTH Her velásquez Oral Tablet 00 TWICE DAILY citalopram Yes 40 mg = 1 Me moria 40 mg oral 7-08 tab, PO, l tablet 15:02: Daily, # [place] 00 30 tab, 0 Refill(s) metFORMIN Yes TAKE ONE Juan srikanth 1000 mg 7-08 (1) TABLET l oral tablet 15:02: BY MOUTH He rmann 00 TWICE DAILY clopidogrel Yes 0 Memori a 75 mg oral 7-08 Refill(s) l tablet 15:02: [place] Metformin Yes TAKE ONE Juan srikanth hydrochlori 7-08 (1) TABLET l de 1000 MG 15:02: BY MOUTH Her velásquez Oral Tablet 00 TWICE DAILY citalopram Yes 40 mg = 1 Me moria 40 mg oral 7-08 tab, PO, l tablet 15:02: Daily, # [place] 00 30 tab, 0 Refill(s) metFORMIN 0 Yes TAKE ONE Juan srikanth 1000 mg 7-08 (1) TABLET l oral tablet 15:02: BY MOUTH He r[place] 00 TWICE DAILY gabapentin 0 Yes = 2 cap, Mem oria 300 mg oral 7-08 PO, TID, # l capsule 14:57: 540 [place] 00 unknown unit, 2 Refill(s), Pharmacy: [facility], 162.56, cm, 12/08/20 9:45:00 CDT, Height, 80.909, kg, 12/08/20 9:45:00 CDT, Weight rOPINIRole 0 Yes = 1 tab, Mem oria 2 mg oral 7-08 PO, TID, # l tablet 14:57: 270 tab, 2 Dianne nn 00 Refill(s), Pharmacy: [facility], 162.56, cm, 12/08/20 9:45:00 CDT, Height, 80.909, kg, 12/08/20 9:45:00 CDT, Weight gabapentin 2020-0 Yes = 2 cap, Mem oria 300 mg oral 7-08 PO, TID, # l capsule 14:57: 540 [place] 00 unknown unit, 2 Refill(s), Pharmacy: [facility], 162.56, cm, 12/08/20 9:45:00 CDT, Height, 80.909, kg, 12/08/20 9:45:00 CDT, Weight rOPINIRole 2020-0 Yes = 1 tab, Mem oria 2 mg oral 7-08 PO, TID, # l tablet 14:57: 270 tab, 2 Dianne nn 00 Refill(s), Pharmacy: [facility], 162.56, cm, 12/08/20 9:45:00 CDT, Height, 80.909, kg, 12/08/20 9:45:00 CDT, Weight gabapentin 2020-0 Yes = 2 cap, Mem oria 300 mg oral 7-08 PO, TID, # l capsule 14:57: 540 [place] 00 unknown unit, 2 Refill(s), Pharmacy: [facility], 162.56, cm, 12/08/20 9:45:00 CDT, Height, 80.909, kg, 12/08/20 9:45:00 CDT, Weight rOPINIRole 2020-0 Yes = 1 tab, Mem oria 2 mg oral 7-08 PO, TID, # l tablet 14:57: 270 tab, 2 Dianne nn 00 Refill(s), Pharmacy: [facility], 162.56, cm, 12/08/20 9:45:00 CDT, Height, 80.909, kg, 12/08/20 9:45:00 CDT, Weight gabapentin 2020-0 Yes = 2 cap, Mem oria 300 mg oral 7-08 PO, TID, # l capsule 14:57: 540 [place] 00 unknown unit, 2 Refill(s), Pharmacy: [facility], 162.56, cm, 12/08/20 9:45:00 CDT, Height, 80.909, kg, 12/08/20 9:45:00 CDT, Weight rOPINIRole 2020-0 Yes = 1 tab, Mem oria 2 mg oral 7-08 PO, TID, # l tablet 14:57: 270 tab, 2 Dianne nn 00 Refill(s), Pharmacy: [facility], 162.56, cm, 12/08/20 9:45:00 CDT, Height, 80.909, kg, 12/08/20 9:45:00 CDT, Weight ciprofloxac 2020-0 Yes 0 Memori a in 500 mg 7-08 Refill(s) l oral tablet 14:51: [place] 00 ciprofloxac 1-0 Yes 0 Memori a in 500 mg 7-08 Refill(s) l oral tablet 14:51: [place] 00 ciprofloxac 2021-0 Yes 0 Memori a in 500 mg 7-08 Refill(s) l oral tablet 14:51: [place] 00 ciprofloxac 2021-0 Yes 0 Memori a in 500 mg 7-08 Refill(s) l oral tablet 14:51: [place] 00 ciprofloxac 2021-0 Yes 0 Memori a in 500 mg 7-08 Refill(s) l oral tablet 14:51: [place] 00 ciprofloxac Yes 0 Memori a in 500 mg 7-08 Refill(s) l oral tablet 14:51: [place] 00 rOPINIRole Yes = 1 tab, Mem oria 2 mg oral 1-12 PO, TID, # l tablet 20:12: 270 ea, 1 [place] 00 Refill(s), Pharmacy: [facility], 167.64, cm, 04/02/19 10:11:00 CDT, Height, 84.091, kg, 04/02/19 10:11:00 CDT, Weight gabapentin 2020-0 Yes = 2 cap, Mem oria 300 MG Oral 1-12 PO, TID, # l Capsule 20:12: 540 cap, 1 Herm benedicto 00 Refill(s), Pharmacy: [facility], 167.64, cm, 04/02/19 10:11:00 CDT, Height, 84.091, kg, 04/02/19 10:11:00 CDT, Weight rOPINIRole 2020-0 Yes = 1 tab, Mem oria 2 mg oral 1-12 PO, TID, # l tablet 20:12: 270 ea, 1 [place] 00 Refill(s), Pharmacy: [facility], 167.64, cm, 04/02/19 10:11:00 CDT, Height, 84.091, kg, 04/02/19 10:11:00 CDT, Weight gabapentin 2020-0 Yes = 2 cap, Mem oria 300 MG Oral 1-12 PO, TID, # l Capsule 20:12: 540 cap, 1 Herm benedicto 00 Refill(s), Pharmacy: [facility] 527, 167.64, cm, 04/02/19 10:11:00 CDT, Height, 84.091, kg, 04/02/19 10:11:00 CDT, Weight rOPINIRole 2020-0 Yes = 1 tab, Mem oria 2 mg oral 1-12 PO, TID, # l tablet 20:12: 270 ea, 1 [place] 00 Refill(s), Pharmacy: [facility], 167.64, cm, 04/02/19 10:11:00 CDT, Height, 84.091, kg, 04/02/19 10:11:00 CDT, Weight gabapentin 2020-0 Yes = 2 cap, Mem oria 300 MG Oral 1-12 PO, TID, # l Capsule 20:12: 540 cap, 1 Herm benedicto 00 Refill(s), Pharmacy: [facility], 167.64, cm, 04/02/19 10:11:00 CDT, Height, 84.091, kg, 04/02/19 10:11:00 CDT, Weight rOPINIRole 2020-0 Yes = 1 tab, Mem oria 2 mg oral 1-12 PO, TID, # l tablet 20:12: 270 ea, 1 [place] 00 Refill(s), Pharmacy: [facility], 167.64, cm, 04/02/19 10:11:00 CDT, Height, 84.091, kg, 04/02/19 10:11:00 CDT, Weight gabapentin 2020-0 Yes = 2 cap, Mem oria 300 MG Oral 1-12 PO, TID, # l Capsule 20:12: 540 cap, 1 Herm benedicto 00 Refill(s), Pharmacy: [facility], 167.64, cm, 04/02/19 10:11:00 CDT, Height, 84.091, kg, 04/02/19 10:11:00 CDT, Weight rOPINIRole 2020-0 Yes = 1 tab, Mem oria 2 mg oral 1-12 PO, TID, # l tablet 20:12: 270 ea, 1 [place] 00 Refill(s), Pharmacy: [facility], 167.64, cm, 04/02/19 10:11:00 CDT, Height, 84.091, kg, 04/02/19 10:11:00 CDT, Weight gabapentin 2020-0 Yes = 2 cap, Mem oria 300 MG Oral 1-12 PO, TID, # l Capsule 20:12: 540 cap, 1 Herm benedicto 00 Refill(s), Pharmacy: [facility], 167.64, cm, 04/02/19 10:11:00 CDT, Height, 84.091, kg, 04/02/19 10:11:00 CDT, Weight rOPINIRole 2021-0 Yes = 1 tab, Mem oria 2 mg oral 1-12 PO, TID, # l tablet 20:12: 270 ea, 1 [place] 00 Refill(s), Pharmacy: [facility], 167.64, cm, 04/02/19 10:11:00 CDT, Height, 84.091, kg, 04/02/19 10:11:00 CDT, Weight gabapentin Yes = 2 cap, Mem oria 300 MG Oral 1-12 PO, TID, # l Capsule 20:12: 540 cap, 1 Herm benedicto 00 Refill(s), Pharmacy: [facility], 167.64, cm, 04/02/19 10:11:00 CDT, Height, 84.091, kg, 04/02/19 10:11:00 CDT, Weight mupirocin 2 2020-0 Yes [id number] Apply to Univers % ointment 4-19 area(s) 3 ity of 00:00: (three) [place] 00 times Medical daily. Branch mupirocin 2 2020-0 Yes [id number] Apply to Univers % ointment 4-19 area(s) 3 ity of 00:00: (three) [place] 00 times Medical daily. Branch mupirocin 2 2020-0 Yes [id number] Apply to Univers % ointment 4-19 area(s) 3 ity of 00:00: (three) [place] 00 times Medical daily. Branch mupirocin 2 2020-0 Yes [id number] Apply to Univers % ointment 4-19 area(s) 3 ity of 00:00: (three) [place] 00 times Medical daily. Branch mupirocin 2 2020-0 Yes [id number] Apply to Univers % ointment 4-19 [id number] area(s) 3 it y of 00:00: (three) [place] 00 times Medical daily. Branch mupirocin 2 2020-0 2020- No [id number] Apply to Univers % ointment 4-19 08-21 [id number] area(s) 3 i ty of 00:00: 00:00 (three) [place] 00 :00 times Medical daily. Branch mupirocin 2 2020-0 2020- No [id number] Apply to Univers % ointment 4-19 08-21 [id number] area(s) 3 i ty of 00:00: 00:00 (three) [place] 00 :00 times Medical daily. Branch cephALEXin 2020-0 2020- No [id number] 500mg Take 1 Univers 500 mg 4-19 04-27 capsule by ity of capsule 00:00: 04:59 mouth 4 [place] 00 :00 (four) Medical times Branch daily for 7 days. diphenhydrA 2020-0 Yes [id number] 25mg Take 1 Univers MINE 4-17 capsule by ity of (BENADRYL) 00:00: mouth [place] 25 mg 00 every 6 Medical capsule (six) Branch hours as needed for Allergies. doxycycline 2020-0 Yes [id number] 100mg Take 1 Univers hyclate 100 4-17 tablet by ity of mg tablet 00:00: mouth 2 [place] 00 (two) Medical times Branch daily. triamcinolo 2020-0 Yes [id number] Apply to Univers ne 4-17 area(s) 2 ity of acetonide 00:00: (two) [place] 0.1 % cream 00 times Medical daily. Branch Apply 1-2g BID to affected area. diphenhydrA 2020-0 Yes [id number] 25mg Take 1 Univers MINE 4-17 capsule by ity of (BENADRYL) 00:00: mouth [place] 25 mg 00 every 6 Medical capsule (six) Branch hours as needed for Allergies. doxycycline 2020-0 Yes [id number] 100mg Take 1 Univers hyclate 100 4-17 tablet by ity of mg tablet 00:00: mouth 2 [place] 00 (two) Medical times Branch daily. triamcinolo 2020-0 Yes [id number] Apply to [facility] ne 4-17 area(s) 2 ity of acetonide 00:00: (two) [place] 0.1 % cream 00 times Medical daily. Branch Apply 1-2g BID to affected area. diphenhydrA 2020-0 Yes [id number] 25mg Take 1 [facility] MINE 4-17 capsule by ity of (BENADRYL) 00:00: mouth [place] 25 mg 00 every 6 Medical capsule (six) Branch hours as needed for Allergies. doxycycline 2020-0 Yes [id number] 100mg Take 1 [facility] hyclate 100 4-17 tablet by ity of mg tablet 00:00: mouth 2 [place] 00 (two) Medical times Branch daily. triamcinolo 2020-0 Yes [id number] Apply to [facility] ne 4-17 area(s) 2 ity of acetonide 00:00: (two) [place] 0.1 % cream 00 times Medical daily. Branch Apply 1-2g BID to affected area. diphenhydrA 2020-0 Yes [id number] 25mg Take 1 [facility] MINE 4-17 capsule by ity of (BENADRYL) 00:00: mouth [place] 25 mg 00 every 6 Medical capsule (six) Branch hours as needed for Allergies. doxycycline 2020-0 Yes [id number] 100mg Take 1 [facility] hyclate 100 4-17 tablet by ity of mg tablet 00:00: mouth 2 [place] 00 (two) Medical times Branch daily. triamcinolo 2020-0 Yes [id number] Apply to [facility] ne 4-17 area(s) 2 ity of acetonide 00:00: (two) [place] 0.1 % cream 00 times Medical daily. Branch Apply 1-2g BID to affected area. diphenhydrA 2020-0 Yes [id number] 25mg Take 1 [facility] MINE 4-17 capsule by ity of (BENADRYL) 00:00: mouth [place] 25 mg 00 every 6 Medical capsule (six) Branch hours as needed for Allergies. doxycycline 2020-0 Yes [id number] 100mg Take 1 [facility] hyclate 100 4-17 tablet by ity of mg tablet 00:00: mouth 2 [place] 00 (two) Medical times Branch daily. triamcinolo 2020-0 Yes [id number] Apply to [facility] ne 4-17 area(s) 2 ity of acetonide 00:00: (two) [place] 0.1 % cream 00 times Medical daily. Branch Apply 1-2g BID to affected area. diphenhydrA 2020-0 2020- No [id number] 25mg Take 1 [facility] MINE 4-17 08-21 capsule by ity of (BENADRYL) 00:00: 00:00 mouth [place] 25 mg 00 :00 every 6 Medical capsule (six) Branch hours as needed for Allergies. doxycycline 2020-0 2020- No [id number] 100mg Take 1 [facility] hyclate 100 4-17 08-21 tablet by it y of mg tablet 00:00: 00:00 mouth 2 [place] 00 :[place] (two) Medical times Branch daily. triamcinolo 2020-0 2020- No [id number] Apply to [facility] ne 4-17 08-21 area(s) 2 ity of acetonide 00:00: 00:00 (two) [place] 0.1 % cream 00 :00 times Medical daily. Branch Apply 1-2g BID to affected area. diphenhydrA 2020- No [id number] 25mg Take 1 [facility] 09-17 capsule by ity of (BENADRYL) 00:00: 00:00 mouth [place] 25 mg 00 :00 every 6 Medical capsule (six) Branch hours as needed for Allergies. doxycycline 2020- No [id number] 100mg Take 1 [facility] hyclate 100 09-17 tablet by it y of mg tablet 00:00: 00:00 mouth 2 [place] 00 :00 (two) Medical times Branch daily. triamcinolo 2020- No [id number] Apply to Univers ne 09-17 area(s) 2 ity of acetonide 00:00: 00:00 (two) [place] 0.1 % cream 00 :00 times Medical daily. Branch Apply 1-2g BID to affected area. lamotrigine 2019-0 Yes = 1 tab, Me [place] 200 MG Oral 4-03 PO, BID, # l Tablet 20:13: 180 tab, 3 Dianne nn 00 Refill(s), Pharmacy: [facility] lamotrigine 2020-0 Yes = 1 tab, Me [place] 200 MG Oral 4-03 PO, BID, # l Tablet 20:13: 180 tab, 3 [place] nn 00 Refill(s), Pharmacy: [facility] lamotrigine 2020-0 Yes = 1 tab, Me [place] 200 MG Oral 4-03 PO, BID, # l Tablet 20:13: 180 tab, 3 [place] nn 00 Refill(s), Pharmacy: [facility] lamotrigine 2020-0 Yes = 1 tab, Me [place] 200 MG Oral 4-03 PO, BID, # l Tablet 20:13: 180 tab, 3 [place] nn 00 Refill(s), Pharmacy: [facility] lamotrigine 2020-0 Yes = 1 tab, Me [place] 200 MG Oral 4-03 PO, BID, # l Tablet 20:13: 180 tab, 3 [place] nn 00 Refill(s), Pharmacy: [facility] lamotrigine 2020-0 Yes = 1 tab, Me [place] 200 MG Oral 4-03 PO, BID, # l Tablet 20:13: 180 tab, 3 [place] nn 00 Refill(s), Pharmacy: [facility] rOPINIRole 2020-0 No See Memoria 2 mg oral 3-31 Instructio l tablet 16:36: ns, TAKE 1 [place] nn 00 TABLET BY MOUTH 3 TIMES A DAY, # 270 tab, 3 Refill(s), Pharmacy: [facility] rOPINIRole 2020-0 No See Memoria 2 mg oral 3-31 Instructio l tablet 16:36: ns, TAKE 1 [place] nn 00 TABLET BY MOUTH 3 TIMES A DAY, # 270 tab, 3 Refill(s), Pharmacy: [facility] rOPINIRole 2020-0 No See Memoria 2 mg oral 3-31 Instructio l tablet 16:36: ns, TAKE 1 [place] nn 00 TABLET BY MOUTH 3 TIMES A DAY, # 270 tab, 3 Refill(s), Pharmacy: [facility] rOPINIRole 2019-0 No See Memoria 2 mg oral 3-31 Instructio l tablet 16:36: ns, TAKE 1 [place] nn 00 TABLET BY MOUTH 3 TIMES A DAY, # 270 tab, 3 Refill(s), Pharmacy: [facility] rOPINIRole 0 No See Memoria 2 mg oral 3-31 Instructio l tablet 16:36: ns, TAKE 1 [place] nn 00 TABLET BY MOUTH 3 TIMES A DAY, # 270 tab, 3 Refill(s), Pharmacy: [facility] rOPINIRole 0 No See Memoria 2 mg oral 3-31 Instructio l tablet 16:36: ns, TAKE 1 [place] nn 00 TABLET BY MOUTH 3 TIMES A DAY, # 270 tab, 3 Refill(s), Pharmacy: [facility] apixaban 2018-06 Yes 1477 5mg Take 1 Unive rs mg tablet 1-24 tablet by ity o f 00:00: mouth 2 (two) Medical times Branch daily. Indication s: Blood Clots in Deep Veins and in Blood Vessel of the Lung apixaban 2018-06 Yes 1477 5mg Take 1 Unive rs mg tablet 1-24 tablet by ity o f 00:00: mouth 2 (two) Medical times Branch daily. Indication s: Blood Clots in Deep Veins and in Blood Vessel of the Lung apixaban 2018-06 Yes 1477 5mg Take 1 Unive rs mg tablet 1-24 tablet by ity o f 00:00: mouth 2 [place] (two) Medical times Branch daily. Indication s: Blood Clots in Deep Veins and in Blood Vessel of the Lung apixaban 2018-06 Yes 1477 5mg Take 1 Unive rs mg tablet 1-24 tablet by ity o f 00:00: mouth 2 [place] (two) Medical times Branch daily. Indication s: Blood Clots in Deep Veins and in Blood Vessel of the Lung apixaban 2018-06 Yes 1477 5mg Take 1 Unive rs mg tablet 1-24 tablet by ity o f 00:00: mouth 2 [place] (two) Medical times Branch daily. Indication s: Blood Clots in Deep Veins and in Blood Vessel of the Lung apixaban 2018-06 Yes 1477 5mg Take 1 Unive rs mg tablet 1-24 tablet by ity o f 00:00: mouth [place] (two) Medical times Branch daily. Indication s: Blood Clots in Deep Veins and in Blood Vessel of the Lung apixaban 2018-06 Yes 1477 5mg Take 1 Unive rs mg tablet 1-24 tablet by ity o f 00:00: mouth 2 (two) Medical times Branch daily. Indication s: Blood Clots in Deep Veins and in Blood Vessel of the Lung apixaban 2018-06 Yes 1477 5mg Take 1 Unive rs mg tablet 1-24 tablet by ity o f 00:00: mouth 2 (two) Medical times Branch daily. Indication s: Blood Clots in Deep Veins and in Blood Vessel of the Lung apixaban 2018-06 Yes 1477 5mg Take 1 Unive rs mg tablet 1-24 tablet by ity o f 00:00: mouth 2 [place] 00 (two) Medical times Branch daily. Indication s: Blood Clots in Deep Veins and in Blood Vessel of the Lung apixaban 2018-06 Yes 1477 5mg Take 1 Unive rs mg tablet 1-24 tablet by ity o f 00:00: mouth 2 [place] 00 (two) Medical times Branch daily. Indication s: Blood Clots in Deep Veins and in Blood Vessel of the Lung apixaban 2018-06 Yes 1477 5mg Take 1 Unive rs mg tablet 1-24 tablet by ity o f 00:00: mouth 2 [place] 00 (two) Medical times Branch daily. Indication s: Blood Clots in Deep Veins and in Blood Vessel of the Lung apixaban 2018-06 Yes 1477 5mg Take 1 Unive rs mg tablet 1-24 tablet by ity o f 00:00: mouth 2 [place] 00 (two) Medical times Branch daily. Indication s: Blood Clots in Deep Veins and in Blood Vessel of the Lung apixaban 2018-06 Yes 1477 5mg Take 1 Unive rs mg tablet 1-24 tablet by ity o f 00:00: mouth 2 [place] 00 (two) Medical times Branch daily. Indication s: Blood Clots in Deep Veins and in Blood Vessel of the Lung apixaban 2018-06 Yes 1477 5mg Take 1 Unive rs mg tablet 1-24 tablet by ity o f 00:00: mouth 2 [place] 00 (two) Medical times Branch daily. Indication s: Blood Clots in Deep Veins and in Blood Vessel of the Lung apixaban 2018-062- No 1477 5mg Take 1 Univ ers mg tablet 1-24 -23 tablet by ity of 00:00: 00:00 mouth 2 [place] 00 :00 (two) Medical times Branch daily. Indication s: Blood Clots in Deep Veins and in Blood Vessel of the Lung rOPINIRole 2018-06 Yes See Memoria 2 mg [...] nn 54 Refill(s), Pharmacy: [facility] lamotrigine 2018-06 Yes = 1 tab, Me [place] 200 MG Oral 0-31 PO, BID, # l Tablet 15:26: 180 tab, 2 Dianne nn 54 Refill(s), Pharmacy: [facility] lamotrigine 2018-06 Yes = 1 tab, Me [place] 200 MG Oral 0-31 PO, BID, # l Tablet 15:26: 180 tab, 2 [place]ian[place] nn 54 Refill(s), Pharmacy: [facility] lamotrigine 2018-06 Yes = 1 tab, Me [place] 200 MG Oral 0-31 PO, BID, # l Tablet 15:26: 180 tab, 2 [place] nn 54 Refill(s), Pharmacy: [facility] lamotrigine 2018-06 Yes = 1 tab, Me [place] 200 MG Oral 0-31 PO, BID, # l Tablet 15:26: 180 tab, 2 Dianne nn 54 Refill(s), Pharmacy: [facility] lamotrigine 2018-06 Yes = 1 tab, Me [place] 200 MG Oral 0-31 PO, BID, # l Tablet 15:26: 180 tab, 2 Dianne nn 54 Refill(s), Pharmacy: [facility] gabapentin 2018-06 Yes = 2 cap, Mem oria 300 MG Oral 0-31 PO, TID, # l Capsule 15:26: 540 cap, 2 Herm ben[place]icto 50 Refill(s), Pharmacy: [facility] gabapentin 2018-06 Yes = 2 cap, Mem oria 300 MG Oral 0-31 PO, TID, # l Capsule 15:26: 540 cap, 2 Herm benedicto 50 Refill(s), Pharmacy: [facility] gabapentin 2018-06 Yes = 2 cap, Mem oria 300 MG Oral 0-31 PO, TID, # l Capsule 15:26: 540 cap, 2 Herm benedicto 50 Refill(s), Pharmacy: [facility] gabapentin 2018-06 Yes = 2 cap, Mem oria 300 MG Oral 0-31 PO, TID, # l Capsule 15:26: 540 cap, 2 Herm benedicto 50 Refill(s), Pharmacy: [facility] gabapentin 2018-06 Yes = 2 cap, Mem oria 300 MG Oral 0-31 PO, TID, # l Capsule 15:26: 540 cap, 2 Herm benedicto 50 Refill(s), Pharmacy: [facility] gabapentin 2018-06 Yes = 2 cap, Mem oria 300 MG Oral 0-31 PO, TID, # l Capsule 15:26: 540 cap, 2 Herm benedicto 50 Refill(s), Pharmacy: [facility] Eliquis 2018-06 Yes 5 mg, PO, Memor ia 0-31 BID, 0 l 15:12: Refill(s) [place] 00 Eliquis 2018-06 Yes 5 mg, PO, Memor ia 0-31 BID, 0 l 15:12: Refill(s) [place] 00 Eliquis 2018-06 Yes 5 mg, PO, Memor ia 0-31 BID, 0 l 15:12: Refill(s) [place] 00 Eliquis 2018-06 Yes 5 mg, PO, Memor ia 0-31 BID, 0 l 15:12: Refill(s) [place] 00 Eliquis 2018-06 Yes 5 mg, PO, Memor ia 0-31 BID, 0 l 15:12: Refill(s) [place] 00 Eliquis 2018-06 Yes 5 mg, PO, Memor ia 0-31 BID, 0 l 15:12: Refill(s) [place] 00 sitagliptan 2018- No 1{tbl} Take 1 U nivers -metformin 02-15 tablet by ity of (JANUMET) 14:37: 00:00 mouth 2 [place] 50-500 mg 26 :00 (two) Medical per tablet times [place] daily with meals. clopidogrel 2018- No 75mg Take 75 mg [facility] (PLAVIX) 75 02-15 by mouth ity of mg tablet 14:37: 00:00 daily. [place] 26 :00 [facility] glipiZIDE Yes 5mg 5 mg, Univers (GLUCOTROL) 02-15 Oral, ity of tablet 5 mg 14:00: DAILY, [place] 00 First dose Medical on [facility] 02/15/19 at 0900, Until Discontinu ed, Routine clopidogrel Yes 75mg 75 mg, Univ ers (PLAVIX) 02-15 Oral, ity of tablet 75 14:00: DAILY, [place] mg 00 First dose Medical on [facility] 02/15/19 at 0900, Until Discontinu ed, Routine citalopram Yes 40mg 40 mg, Unive rs (CELEXA) 02-15 Oral, ity of tablet 40 14:00: DAILY, [place] mg 00 First dose Medical on [facility] 02/15/19 at 0900, Until Discontinu ed, Routine Nitrofurant Yes 100mg 100 mg, Un meri oin&Nit. 02-15 Oral, BID, ity o f Macrocryst 13:00: First dose [place] (MACROBID) 00 on [facility] 100 mg 02/15/19 at [place] capsule 100 0800, mg Until Discontinu ed, Routine
Reason for Anti-Infec tive: Empiric Therapy for Suspected Infection< br>Empiric Therapy Site: Urine<br&g t;Duration of therapy: 7 days lamoTRIgine Yes 200mg 200 mg, Un meri (LAMICTAL) 02-15 Oral, BID, ity of tablet 200 13:00: First dose [place] mg 00 on [facility] 02/15/19 at Branch 0800, Until Discontinu ed, Routine gabapentin Yes 300mg 300 mg, Uni vers (NEURONTIN) 02-15 Oral, TID, it y of capsule 300 13:00: First dose [place] mg 00 on [facility] 02/15/19 at Branch 0800, Until Discontinu ed, Routine apixaban Yes 10mg 10 mg, Univers (ELIQUIS) 15 Oral, BID, ity of tablet 10 13:00: First dose [place] mg 00 on [facility] 02/15/19 at Branch 0800, Until Discontinu ed, Routine Sliding 0 Yes Subcutaneo Univ ers Scale -15 us, AC+HS, ity of Insulin-Reg 12:30: First dose [place] ular + Fsbg 00 on [place] [facility] 02/15/19 at Branch 0730, Until Discontinu ed, Routine dextrose Yes 250mL 250 mL, IV Un meri 10% (D10W) 02-15 Infusion, ity of bolus 05:13: PRN - SEE [place] infusion 08 INSTRUCTIO Medic al 250 mL NS, For Branch blood glucose < 60, Starting [place] 02/15/19 at 0013
De xtrose 10% 250 mL bag contains:& nbsp;10 gm = 100 mL 20 gm = 200 mL 25 gm = 250 mL (whole bag) The maximum rate at which dextrose can be infused without producing glycosuria is 0.5 g/kg/hour. &nbs p;BUD: If wrapper is open bag is good for 30 days at room temperatur e. <b r> glucagon Yes 1mg 1 mg, Univers (GLUCAGEN 02-15 Intramuscu ity of DIAGNOSTIC 05:12: [place], PRN, [place] KIT) 55 Starting Medical injection 1 [facility] mg 02/15/19 at 0012, Until Discontinu ed, DAKOTAH, Blood Glucose < or = 70 mg/dL and patient is unable to swallow or has mental changes. traMADol 2019- No 50mg 50 mg, Univer s (ULTRAM) 02-15 Oral, ity of tablet 50 05:11: 05:10 Q8HPRN, [place] mg 02 :02 Starting Medical [place] Branch 02/15/19 at 0011, Until 02/17/19 at 0010, Routine, Pain (scale 4-6) acetaminoph Yes 650mg 650 mg, Un meri en 02-15 Oral, ity of (TYLENOL) 05:10: Q6HPRN, [place] tablet 650 35 Starting Medic al mg Sun Branch 02/15/19 at 0010, Until Discontinu ed, Routine, Pain (scale 1-3) enoxaparin 2019- No 1mg/kg 83.9 mg (1 Univers (LOVENOX) 02-1515 mg/kg ity of injection 04:30: 03:40 ?83.9 kg), [place] 83.9 mg 00 :00 Subcutaneo Medica l us, ONCE, Branch 1 dose, 02/14/19 at 2330, DAKOTAH iohexol 2019- No 120mL 120 mL, Unive rs (OMNIPAQUE 02-15 Intravenou it y of 350 02:45: 02:24 s, ONCE, 1 [place] BULK-100 00 :00 dose, Sat Medica l mL) 02/14/19 at [place] injection 2145, 120 mL Routine traMADol 2019- No 50mg 50 mg, Univer s (ULTRAM) 02-15 Oral, ONCE ity of tablet 50 02:30: 01:19 NOW, 1 [place] mg 00 :00 dose, Sat Medical 02/14/19 at Branch 2130, Routine ipratropium 2019- No 3mL 3 mL, Univ ers -albuterol 02-15 Inhalation it y of (DUONEB) 02:00: 01:11 , ONCE [place] 0.5 mg-3 00 :00 NOW, 1 Medical mg(2.5 mg dose, Sat [facility]3 mL 02/14/19 at nebulizer 2100, solution 3 Routine mL NaCl 0.9% 2019- No 500mL at 999 Univ ers (NS) bolus 02-15 mL/hr, 500 it y of infusion 01:00: 02:45 mL, IV [place] 500 mL 00 :00 Infusion, Medical ONCE, 1 Branch dose, 02/14/19 at 2000, STAT citalopram Yes [id number] 40mg Take 1 [facility] 40 mg 02-15 tablet by ity of tablet 00:00: mouth [place] 00 daily. [facility] citalopram Yes [id number] 40mg Take 1 [facility] 40 mg 9-15 tablet by ity of tablet 00:00: mouth [place] 00 daily. Medical Branch citalopram 0 Yes [id number] 40mg Take 1 [facility] 40 mg 9-15 tablet by ity of tablet 00:00: mouth [place] 00 daily. Medical Branch citalopram Yes [id number] 40mg Take 1 [facility] 40 mg 9-15 tablet by ity of tablet 00:00: mouth [place] 00 daily. Medical Branch citalopram Yes [id number] 40mg Take 1 [facility] 40 mg 9-15 tablet by ity of tablet 00:00: mouth [place] 00 daily. Medical Branch citalopram Yes [id number] 40mg Take 1 [facility] 40 mg 9-15 tablet by ity of tablet 00:00: mouth [place] 00 daily. Medical Branch citalopram Yes [id number] 40mg Take 1 [facility] 40 mg 9-15 tablet by ity of tablet 00:00: mouth [place] 00 daily. Medical Branch glipiZIDE Yes [id number] 10mg Take 1 U nivers 10 mg 9-15 tablet by ity of tablet 00:00: mouth 2 [place] 00 (two) Medical times Branch daily before breakfast and dinner. citalopram Yes [id number] 40mg Take 1 [facility] 40 mg 9-15 tablet by ity of tablet 00:00: mouth [place] 00 daily. Medical Branch glipiZIDE Yes [id number] 10mg Take 1 U nivers 10 mg 9-15 tablet by ity of tablet 00:00: mouth 2 [place] 00 (two) Medical times Branch daily before breakfast and dinner. citalopram Yes [id number] 40mg Take 1 [facility] 40 mg 9-15 tablet by ity of tablet 00:00: mouth [place] 00 daily. Medical Branch Nitrofurant 2018-0 Yes [id number] 100mg Take 1 [facility] oin&Nit. 9-15 capsule by ity o f Macrocryst 00:00: mouth 2 [place] 100 mg 00 (two) Medical capsule times Branch daily. glipiZIDE 2018- Yes [id number] 10mg Take 1 U nivers 10 mg 9-15 tablet by ity of tablet 00:00: mouth (two) Medical times Branch daily before breakfast and dinner. citalopram Yes [id number] 40mg Take 1 [facility] 40 mg 9-15 tablet by ity of tablet 00:00: mouth [place] 00 daily. Medical Branch Nitrofurant Yes [id number] 100mg Take 1 [facility] oin&Nit. 9-15 capsule by ity o f Macrocryst 00:00: mouth 2 [place] 100 mg 00 (two) Medical capsule times Branch daily. glipiZIDE Yes [id number] 10mg Take 1 U nivers 10 mg 9-15 tablet by ity of tablet 00:00: mouth 2 00 (two) Medical times Branch daily before breakfast and dinner. citalopram Yes [id number] 40mg Take 1 [facility] 40 mg 9-15 tablet by ity of tablet 00:00: mouth [place] 00 daily. Medical Branch glipiZIDE Yes [id number] 10mg Take 1 U nivers 10 mg 9-15 tablet by ity of tablet 00:00: mouth (two) Medical times Branch daily before breakfast and dinner. citalopram Yes [id number] 40mg Take 1 [facility] 40 mg 9-15 tablet by ity of tablet 00:00: mouth 00 daily. Medical Branch glipiZIDE Yes [id number] 10mg Take 1 U nivers 10 mg 9-15 tablet by ity of tablet 00:00: mouth (two) Medical times Branch daily before breakfast and dinner. citalopram Yes [id number] 40mg Take 1 [facility] 40 mg 9-15 tablet by ity of tablet 00:00: mouth [place] 00 daily. Medical Branch glipiZIDE Yes [id number] 10mg Take 1 U nivers 10 mg 9-15 tablet by ity of tablet 00:00: mouth 2 (two) Medical times Branch daily before breakfast and dinner. citalopram 2018- Yes [id number] 40mg Take 1 [facility] 40 mg 9-15 tablet by ity of tablet 00:00: mouth [place] 00 daily. Medical Branch glipiZIDE Yes [id number] 10mg Take 1 U nivers 10 mg 9-15 tablet by ity of tablet 00:00: mouth (two) Medical times Branch daily before breakfast and dinner. citalopram 2018-0 Yes [id number] 40mg Take 1 [facility] 40 mg 9-15 tablet by ity of tablet 00:00: mouth [place] 00 daily. Medical Branch glipiZIDE 2018-0 Yes [id number] 10mg Take 1 U nivers 10 mg 9-15 tablet by ity of tablet 00:00: mouth (two) Medical times Branch daily before breakfast and dinner. citalopram 2018-0 Yes [id number] 40mg Take 1 [facility] 40 mg 9-15 tablet by ity of tablet 00:00: mouth 00 daily. Medical Branch glipiZIDE 0 Yes [id number] 10mg Take 1 U nivers 10 mg 9-15 tablet by ity of tablet 00:00: mouth (two) Medical times Branch daily before breakfast and dinner. citalopram 2018-0 Yes [id number] 40mg Take 1 [facility] 40 mg 9-15 tablet by ity of tablet 00:00: mouth 00 daily. Medical Branch glipiZIDE Yes [id number] 10mg Take 1 U nivers 10 mg 9-15 tablet by ity of tablet 00:00: mouth (two) Medical times Branch daily before breakfast and dinner. citalopram 2018-0 Yes [id number] 40mg Take 1 [facility] 40 mg 9-15 tablet by ity of tablet 00:00: mouth 00 daily. Medical Branch glipiZIDE 0 Yes [id number] 10mg Take 1 U nivers 10 mg 9-15 tablet by ity of tablet 00:00: mouth (two) Medical times Branch daily before breakfast and dinner. citalopram 2018-0 Yes [id number] 40mg Take 1 [facility] 40 mg 9-15 tablet by ity of tablet 00:00: mouth [place] 00 daily. Medical Branch glipiZIDE 2018-0 Yes [id number] 10mg Take 1 U nivers 10 mg 9-15 tablet by ity of tablet 00:00: mouth 2 (two) Medical times Branch daily before breakfast and dinner. citalopram 2018-0 Yes [id number] 40mg Take 1 [facility] 40 mg 9-15 tablet by ity of tablet 00:00: mouth [place] 00 daily. Medical Branch glipiZIDE 2018-0 Yes [id number] 10mg Take 1 U nivers 10 mg 9-15 tablet by ity of tablet 00:00: mouth 2 [place] 00 (two) Medical times Branch daily before breakfast and dinner. citalopram Yes [id number] 40mg Take 1 [facility] 40 mg 9-15 tablet by ity of tablet 00:00: mouth [place] 00 daily. Medical Branch glipiZIDE 0 Yes [id number] 10mg Take 1 U nivers 10 mg 9-15 tablet by ity of tablet 00:00: mouth 2 [place] 00 (two) Medical times Branch daily before breakfast and dinner. citalopram 0 Yes [id number] 40mg Take 1 [facility] 40 mg 9-15 tablet by ity of tablet 00:00: mouth [place] 00 daily. [facility] Branch glipiZIDE Yes [id number] 10mg Take 1 U nivers 10 mg 9-15 tablet by ity of tablet 00:00: mouth 2 00 (two) Medical times Branch daily before breakfast and dinner. citalopram Yes [id number] 40mg Take 1 [facility] 40 mg 9-15 tablet by ity of tablet 00:00: mouth [place] 00 daily. Medical Branch citalopram 0 Yes [id number] 40mg Take 1 [facility] 40 mg 9-15 tablet by ity of tablet 00:00: mouth [place] 00 daily. [facility] Branch citalopram Yes [id number] 40mg Take 1 [facility] 40 mg 9-15 tablet by ity of tablet 00:00: mouth [place] 00 daily. Medical Branch citalopram 0 Yes [id number] 40mg Take 1 [facility] 40 mg 9-15 tablet by ity of tablet 00:00: mouth [place] 00 daily. Medical Branch citalopram 0 Yes [id number] 40mg Take 1 [facility] 40 mg 9-15 tablet by ity of tablet 00:00: mouth [place] 00 daily. [facility] Branch citalopram 0 Yes [id number] 40mg Take 1 [facility] 40 mg 9-15 tablet by ity of tablet 00:00: mouth [place] 00 daily. [facility] Branch citalopram 0 Yes [id number] 40mg Take 1 [facility] 40 mg 9-15 tablet by ity of tablet 00:00: mouth [place] 00 daily. Medical Branch citalopram Yes [id number] 40mg Take 1 [facility] 40 mg 9-15 tablet by ity of tablet 00:00: mouth [place] 00 daily. Medical Branch citalopram Yes [id number] 40mg Take 1 [facility] 40 mg 9-15 tablet by ity of tablet 00:00: mouth [place] 00 daily. Medical Branch glipiZIDE 2021- No [id number] 10mg Take 1 [facility] 10 mg 9-15 - tablet by ity of tablet 00:00: 00:00 mouth 2 [place] 00 :00 (two) Medical times Branch daily before breakfast and dinner. gabapentin No = 2 cap, Mem oria 300 MG Oral 9-12 PO, TID, # l Capsule 13:17: 540 [place] 36 unknown unit, Pharmacy: [facility] #[id number] gabapentin No = 2 cap, Mem oria 300 MG Oral 9-12 PO, TID, # l Capsule 13:17: 540 [place] 36 unknown unit, Pharmacy: [facility] #[id number] gabapentin No = 2 cap, Mem oria 300 MG Oral 9-12 PO, TID, # l Capsule 13:17: 540 [place] 36 unknown unit, Pharmacy: [facility] #[id number] gabapentin No = 2 cap, Mem oria 300 MG Oral 9-12 PO, TID, # l Capsule 13:17: 540 [place] 36 unknown unit, Pharmacy: [facility] #[id number] gabapentin 2018- No = 2 cap, Mem oria 300 MG Oral 9-12 PO, TID, # l Capsule 13:17: 540 [place] 36 unknown unit, Pharmacy: [facility] #[id number] gabapentin 0 No = 2 cap, Mem oria 300 MG Oral 9-12 PO, TID, # l Capsule 13:17: 540 [place] 36 unknown unit, Pharmacy: [facility] #[id number] cephALEXin 2019- No [id number] 500mg Take 1 [facility] (KEFLEX) [id number] capsule by it y of 500 mg 00:00: 04:59 mouth 4 [place] capsule 00 :00 (four) Medical times Branch daily for 7 days. clopidogrel 2019-0 Yes 75mg Take 75 mg [facility] (PLAVIX) 75 7-01 by mouth ity of mg tablet 18:08: daily. [address] clopidogrel 2019-0 Yes 75mg Take 75 mg [facility] (PLAVIX) 75 7-01 by mouth ity of mg tablet 18:08: daily. [address] clopidogrel 2019-0 Yes 75mg Take 75 mg [facility] (PLAVIX) 75 7-01 by mouth ity of mg tablet 18:08: daily. [address] metFORMIN 2019-0 Yes [id number] 1000mg Take 1 [facility] 1,000 mg 7-01 tablet by ity of tablet 00:00: mouth [place] ([facility]) Medical times Branch daily with meals. metFORMIN 2019-0 Yes [id number] 1000mg Take 1 [facility] 1,000 mg 7-01 tablet by ity of tablet 00:00: mouth [place] ([facility]) Medical times Branch daily with meals. metFORMIN 2019-0 Yes [id number] 1000mg Take 1 [facility] 1,000 mg 7-01 tablet by ity of tablet 00:00: mouth [place] ([facility]) Medical times Branch daily with meals. metFORMIN 2019-0 Yes [id number] 1000mg Take 1 [facility] 1,000 mg 7-01 tablet by ity of tablet 00:00: mouth [place] ([facility]) Medical times Branch daily with meals. metFORMIN 2019-0 Yes [id number] 1000mg Take 1 [facility] 1,000 mg 7-01 tablet by ity of tablet 00:00: mouth [place] ([facility]) Medical times Branch daily with meals. metFORMIN 2019-0 Yes [id number] 1000mg Take 1 [facility] 1,000 mg 7-01 tablet by ity of tablet 00:00: mouth [place] ([facility]) Medical times Branch daily with meals. metFORMIN 2019-0 Yes [id number] 1000mg Take 1 [facility] 1,000 mg 7-01 tablet by ity of tablet 00:00: mouth [place] ([facility]) Medical times Branch daily with meals. metFORMIN 2019-0 Yes [id number] 1000mg Take 1 [facility] 1,000 mg 7-01 tablet by ity of tablet 00:00: mouth [place] ([facility]) Medical times Branch daily with meals. metFORMIN 2019-0 Yes [id number] 1000mg Take 1 [facility] 1,000 mg 7-01 tablet by ity of tablet 00:00: mouth [place] (two) Medical times Branch daily with meals. glipiZIDE 5 2018-0 Yes [id number] 2 tabs TID [facility] mg tablet 7-01 ity of 00:00: [place] 00 Medical Branch metFORMIN 2019-0 Yes [id number] 1000mg Take 1 [facility] 1,000 mg 7-01 tablet by ity of tablet 00:00: mouth (two) Medical times Branch daily with meals. citalopram 2019- Yes [id number] 40mg Take 1 [facility] 40 mg 7-01 tablet by ity of tablet 00:00: mouth 00 daily. Medical Branch glipiZIDE 5 2018- Yes [id number] 2 tabs TID [facility] mg tablet 7-01 ity of 00:00: 00 Medical Branch metFORMIN 2018-0 Yes [id number] 1000mg Take 1 [facility] 1,000 mg 7-01 tablet by ity of tablet 00:00: mouth (two) Medical times Branch daily with meals. citalopram 2018- Yes [id number] 40mg Take 1 [facility] 40 mg 7-01 tablet by ity of tablet 00:00: mouth daily. Medical Branch glipiZIDE 5 2018- Yes [id number] 2 tabs TID [facility] mg tablet 7-01 it[facility] of 00:00: 00 Medical Branch metFORMIN 2019-0 Yes [id number] 1000mg Take 1 [facility] 1,000 mg 7-01 tablet by ity of tablet 00:00: mouth (two) Medical times Branch daily with meals. citalopram 2018-0 Yes [id number] 40mg Take 1 [facility] 40 mg 7-01 tablet by ity of tablet 00:00: mouth daily. Medical Branch metFORMIN 2019-0 Yes [id number] 1000mg Take 1 [facility] 1,000 mg 7-01 tablet by ity of tablet 00:00: mouth (two) Medical times Branch daily with meals. metFORMIN 2019-0 Yes [id number] 1000mg Take 1 [facility] 1,000 mg 7-01 tablet by ity of tablet 00:00: mouth (two) Medical times Branch daily with meals. metFORMIN 2018- Yes [id number] 1000mg Take 1 [facility] 1,000 mg 7-01 tablet by ity of tablet 00:00: mouth (two) Medical times Branch daily with meals. metFORMIN 2019-0 Yes [id number] 1000mg Take 1 [facility] 1,000 mg 7-01 tablet by ity of tablet 00:00: mouth (two) Medical times Branch daily with meals. metFORMIN 2019-0 Yes [id number] 1000mg Take 1 [facility] 1,000 mg 7-01 tablet by ity of tablet 00:00: mouth (two) Medical times Branch daily with meals. metFORMIN 2019-0 Yes [id number] 1000mg Take 1 [facility] 1,000 mg 7-01 tablet by ity of tablet 00:00: mouth (two) Medical times Branch daily with meals. metFORMIN 2019-0 Yes [id number] 1000mg Take 1 [facility] 1,000 mg 7-01 tablet by ity of tablet 00:00: mouth (two) Medical times Branch daily with meals. metFORMIN 2019-0 Yes [id number] 1000mg Take 1 [facility] 1,000 mg 7-01 tablet by ity of tablet 00:00: mouth (two) Medical times Branch daily with meals. metFORMIN 2019-0 Yes [id number] 1000mg Take 1 [facility] 1,000 mg 7-01 tablet by ity of tablet 00:00: mouth (two) Medical times Branch daily with meals. metFORMIN 2019-0 Yes [id number] 1000mg Take 1 [facility] 1,000 mg 7-01 tablet by ity of tablet 00:00: mouth (two) Medical times Branch daily with meals. metFORMIN 2019-0 Yes [id number] 1000mg Take 1 [facility] 1,000 mg 7-01 tablet by ity of tablet 00:00: mouth (two) Medical times Branch daily with meals. metFORMIN 2019-0 Yes [id number] 1000mg Take 1 [facility] 1,000 mg 7-01 tablet by ity of tablet 00:00: mouth (two) Medical times Branch daily with meals. metFORMIN 2019-0 Yes [id number] 1000mg Take 1 [facility] 1,000 mg 7-01 tablet by ity of tablet 00:00: mouth (two) Medical times Branch daily with meals. metFORMIN 2019-0 Yes [id number] 1000mg Take 1 [facility] 1,000 mg 7-01 tablet by ity of tablet 00:00: mouth (two) Medical times Branch daily with meals. metFORMIN 2019-0 Yes [id number] 1000mg Take 1 [facility] 1,000 mg 7-01 tablet by ity of tablet 00:00: mouth 2 (two) Medical times Branch daily with meals. metFORMIN 2018- Yes [id number] 1000mg Take 1 [facility] 1,000 mg 7-01 tablet by ity of tablet 00:00: mouth 2 (two) Medical times Branch daily with meals. metFORMIN 2018- Yes [id number] 1000mg Take 1 [facility] 1,000 mg 7-01 tablet by ity of tablet 00:00: mouth 2 (two) Medical times Branch daily with meals. metFORMIN Yes [id number] 1000mg Take 1 [facility] 1,000 mg 7-01 tablet by ity of tablet 00:00: mouth 2 [place] (two) Medical times Branch daily with meals. metFORMIN 2018- Yes [id number] 1000mg Take 1 [facility] 1,000 mg 7-01 tablet by ity of tablet 00:00: mouth 2 (two) Medical times Branch daily with meals. metFORMIN 2018- Yes [id number] 1000mg Take 1 [facility] 1,000 mg 7-01 tablet by ity of tablet 00:00: mouth (two) Medical times Branch daily with meals. metFORMIN Yes [id number] 1000mg Take 1 [facility] 1,000 mg 7-01 tablet by ity of tablet 00:00: mouth [place] (two) Medical times Branch daily with meals. metFORMIN Yes [id number] 1000mg Take 1 [facility] 1,000 mg 7-01 tablet by ity of tablet 00:00: mouth 2 [place] (two) Medical times Branch daily with meals. glipiZIDE 5 2019- No [id number] 2 tabs TID [facility] mg tablet 12-01 it[facility] of 00:00: 00:00 [place] 00 :00 Medical Branch citalopram 2019- No [id number] 40mg Take 1 [facility] 40 mg 12-01 tablet by ity of tablet 00:00: 00:00 mouth [place] 00 :00 daily. Medical Branch sitagliptan 2018- Yes 1{tbl} Take 1 Un meri -metformin 6-24 tablet by ity of (JANUMET) 20:32: mouth 2 [place] 50-500 mg 48 (two) Medical per tablet times Branch daily with meals. sitagliptan 2019-0 Yes 1{tbl} Take 1 [facility] meri -metformin 6-24 tablet by ity of (JUNUMET) 20:32: mouth 2 [place] 50-500 mg 48 (two) Medical per tablet times Branch daily with meals. sitagliptan 2019-0 Yes 1{tbl} Take 1 Un meri -metformin 6-24 tablet by ity of (JUNUMET) 20:32: mouth 2 [place] 50-500 mg 48 (two) Medical per tablet times Branch daily with meals. apixaban 5 2019-0 Yes [id number] 10 mg BID [facility] mg tablet 6-24 for 7 ity of 00:00: days. Followed Medical by 5 mg Branch BID apixaban 5 2019-0 Yes [id number] 10 mg BID [facility] mg tablet 6-24 for 7 ity of 00:00: days. Followed Medical by 5 mg Branch BID apixaban 5 2019-0 Yes [id number] 10 mg BID [facility] mg tablet 6-24 for 7 ity of 00:00: days. Followed Medical by 5 mg Branch BID apixaban 5 2019-0 Yes [id number] 10 mg BID [facility] mg tablet 6-24 for 7 ity of 00:00: days. [place] Followed Medical by 5 mg Branch BID apixaban 5 2019-0 Yes [id number] 10 mg BID [facility] mg tablet 6-24 for 7 ity of 00:00: days. [place] 00 Followed Medical by 5 mg Branch BID gabapentin 2018-0 No = 2 cap, Mem oria 300 MG Oral 6-04 PO, TID, # l Capsule 20:55: 540 [place] 46 unknown unit, Pharmacy: [facility] #[id number] gabapentin 2019-0 No = 2 cap, Mem oria 300 MG Oral 6-04 PO, TID, # l Capsule 20:55: 540 [place] 46 unknown unit, Pharmacy: [facility] #[id number] gabapentin 2019-0 No = 2 cap, Mem oria 300 MG Oral 6-04 PO, TID, # l Capsule 20:55: 540 [place] 46 unknown unit, Pharmacy: [facility] #[id number] gabapentin 2019-0 No = 2 cap, Mem oria 300 MG Oral 6-04 PO, TID, # l Capsule 20:55: 540 [place] 46 unknown unit, Pharmacy: [facility] #[id number] gabapentin 2019-0 No = 2 cap, Mem oria 300 MG Oral 6-04 PO, TID, # l Capsule 20:55: 540 [place] 46 unknown unit, Pharmacy: [place] [id number] gabapentin 2019-0 No = 2 cap, Mem oria 300 MG Oral 6-04 PO, TID, # l Capsule 20:55: 540 [place] 46 unknown unit, Pharmacy: [place] [address] lamotrigine 2019-0 Yes = 1 tab, Me moria 200 MG Oral 5-28 PO, BID, # l Tablet 14:34: 60 tab, [place] 36 Refill(s) 5, Pharmacy: [place] [address] lamotrigine 2019-0 Yes = 1 tab, Me moria 200 MG Oral 5-28 PO, BID, # l Tablet 14:34: 60 tab, [place] 36 Refill(s) 5, Pharmacy: [place] [address] lamotrigine 2019-0 Yes = 1 tab, Me moria 200 MG Oral 5-28 PO, BID, # l Tablet 14:34: 60 tab, [place] 36 Refill(s) 5, Pharmacy: [place] [address] lamotrigine 2019-0 Yes = 1 tab, Me moria 200 MG Oral 5-28 PO, BID, # l Tablet 14:34: 60 tab, [place] 36 Refill(s) 5, Pharmacy: [place] [address] lamotrigine 2019-0 Yes = 1 tab, Me moria 200 MG Oral 5-28 PO, BID, # l Tablet 14:34: 60 tab, [place] 36 Refill(s) 5, Pharmacy: [place] [address] lamotrigine 2019-0 Yes = 1 tab, Me moria 200 MG Oral 5-28 PO, BID, # l Tablet 14:34: 60 tab, [place] 36 Refill(s) 5, Pharmacy: [place] [id number] rOPINIRole 2019-0 Yes See Memoria 2 mg oral 1-31 Instructio l tablet 16:20: ns, TAKE 1 [place]ianne nn 04 TABLET BY MOUTH 3 TIMES A DAY, # 270 tab, 3 Refill(s), Pharmacy: [place] [id number] rOPINIRole 2019-0 Yes See Memoria 2 mg oral 1-31 Instructio l tablet 16:20: ns, TAKE 1 [place]ian[place] nn 04 TABLET BY MOUTH 3 TIMES A DAY, # 270 tab, 3 Refill(s), Pharmacy: [facility] rOPINIRole Yes See Memoria 2 mg oral 1-31 Instructio l tablet 16:20: ns, TAKE 1 Dianne nn 04 TABLET BY MOUTH 3 TIMES A DAY, # 270 tab, 3 Refill(s), Pharmacy: [facility] rOPINIRole Yes See Memoria 2 mg oral 1-31 Instructio l tablet 16:20: ns, TAKE 1 Dianne nn 04 TABLET BY MOUTH 3 TIMES A DAY, # 270 tab, 3 Refill(s), Pharmacy: [facility] rOPINIRole Yes See Memoria 2 mg oral 1-31 Instructio l tablet 16:20: ns, TAKE 1 Dianne nn 04 TABLET BY MOUTH 3 TIMES A DAY, # 270 tab, 3 Refill(s), Pharmacy: [facility] rOPINIRole Yes See Memoria 2 mg oral 1-31 Instructio l tablet 16:20: ns, TAKE 1 Dianne nn 04 TABLET BY MOUTH 3 TIMES A DAY, # 270 tab, 3 Refill(s), Pharmacy: [facility] acetaminoph Yes [id number] 06/04 - [facility] en-codeine 1-25 tab Every ity of 300-30 mg 00:00: 4hrs as [place] tablet 00 needed for Medical pain or Branch cough requiring narcotic acetaminoph 2019- Yes [id number] 06/04 [facility] en-codeine 1-25 tab Every ity of 300-30 mg 00:00: 4hrs as [place] tablet 00 needed for Medical pain or Branch cough requiring narcotic acetaminoph 2019- Yes [id number] 06/04 [facility] en-codeine 1-25 tab Every ity of 300-30 mg 00:00: 4hrs as [place] tablet 00 needed for Medical pain or Branch cough requiring narcotic acetaminoph 2019- Yes [id number] 06/04 [facility] en-codeine 1-25 tab Every ity of 300-30 mg 00:00: 4hrs as [place] tablet 00 needed for Medical pain or Branch cough requiring narcotic acetaminoph 2019- Yes [id number] 06/04 [facility] en-codeine 1-25 tab Every ity of 300-30 mg 00:00: 4hrs as [place] tablet 00 needed for Medical pain or Branch cough requiring narcotic lamotrigine No = 1 tab, Me moria 200 MG Oral 1-14 PO, BID, # l Tablet 21:52: 180 tab, 1 [place] nn 09 Refill(s), Pharmacy: [facility] lamotrigine No = 1 tab, Me moria 200 MG Oral 1-14 PO, BID, # l Tablet 21:52: 180 tab, 1 [place] nn 09 Refill(s), Pharmacy: [facility] lamotrigine No = 1 tab, Me moria 200 MG Oral 1-14 PO, BID, # l Tablet 21:52: 180 tab, 1 [place] nn 09 Refill(s), Pharmacy: [facility] lamotrigine No = 1 tab, Me moria 200 MG Oral 1-14 PO, BID, # l Tablet 21:52: 180 tab, 1 [place] nn 09 Refill(s), Pharmacy: [facility] lamotrigine No = 1 tab, Me moria 200 MG Oral 1-14 PO, BID, # l Tablet 21:52: 180 tab, 1 [place] nn 09 Refill(s), Pharmacy: [facility] lamotrigine No = 1 tab, Me moria 200 MG Oral 1-14 PO, BID, # l Tablet 21:52: 180 tab, 1 [place] nn 09 Refill(s), Pharmacy: [facility] lamotrigine No = 1 tab, Me moria 200 MG Oral 1-14 PO, BID, # l Tablet 21:51: 60 tab, [place] 03 Refill(s) , 06/16/18 15:52:09 [employer], Pharmacy: [facility] #[id number] lamotrigine No = 1 tab, Me moria 200 MG Oral 1-14 PO, BID, # l Tablet 21:51: 60 tab, [place] 03 Refill(s) , 06/16/18 15:52:09 [employer], Pharmacy: [facility] #[id number] lamotrigine No = 1 tab, Me moria 200 MG Oral 1-14 PO, BID, # l Tablet 21:51: 60 tab, [place] 03 Refill(s) , 06/16/18 15:52:09 [employer], [id number] lam[facility]ine 2019-0 No = 1 tab, Me moria 200 MG Oral 1-14 PO, BID, # l Tablet 21:51: 60 tab, [place] 03 Refill(s) , 06/16/18 15:52:09 [employer], [id number] lamotrigine 2019-0 No = 1 tab, Me moria 200 MG Oral 1-14 PO, BID, # l Tablet 21:51: 60 tab, [place] 03 Refill(s) , 06/16/18 15:52:09 [employer], [id number] lamotrigine 2019-0 No = 1 tab, Me moria 200 MG Oral 1-14 PO, BID, # l Tablet 21:51: 60 tab, [place] 03 Refill(s) , 06/16/18 15:52:09 [employer], [id number] gabapentin 2017-06 No 600 mg = 2 M emoria 300 MG Oral 2-14 cap, PO, l Capsule 23:32: TID, X 90 [place] nn 12 day, # 540 cap, 3 Refill(s), [id number] gabapentin 2017-06 No 600 mg = 2 M emoria 300 MG Oral 2-14 cap, PO, l Capsule 23:32: TID, X 90 [place] nn 12 day, # 540 cap, 3 Refill(s), [id number] gabapentin 2018- No 600 mg = 2 M emoria 300 MG Oral 2-14 cap, PO, l Capsule 23:32: TID, X 90 [place] nn 12 day, # 540 cap, 3 Refill(s), Pharmacy: [facility] #[id number] gabapentin 2018- No 600 mg = 2 M emoria 300 MG Oral 2-14 cap, PO, l Capsule 23:32: TID, X 90 [place] nn 12 day, # 540 cap, 3 Refill(s), Pharmacy: [facility] #[id number] gabapentin 2018- No 600 mg = 2 M emoria 300 MG Oral 2-14 cap, PO, l Capsule 23:32: TID, X 90 [place] nn 12 day, # 540 cap, 3 Refill(s), Pharmacy: [facility] #[id number] gabapentin 2017-06 No 600 mg = 2 M emoria 300 MG Oral 2-14 cap, PO, l Capsule 23:32: TID, X 90 [place] nn 12 day, # 540 cap, 3 Refill(s), [id number] lamotrigine 2018 No = 1 tab, Me moria 200 MG Oral 2-12 PO, BID, # l Tablet 14:58: 60 tab, [place] 59 Pharmacy: [facility] #[id number] lamotrigine 2018 No = 1 tab, Me moria 200 MG Oral 2-12 PO, BID, # l Tablet 14:58: 60 tab, [place] 59 [id number] lamotrigine 2018 No = 1 tab, Me moria 200 MG Oral 2-12 PO, BID, # l Tablet 14:58: 60 tab, [place] 59 Pharmacy: [facility] #[id number] lamotrigine 2017-06 No = 1 tab, Me moria 200 MG Oral 2-12 PO, BID, # l Tablet 14:58: 60 tab, [place] 59 Pharmacy: [facility] #[id number] lamotrigine 2018 No = 1 tab, Me moria 200 MG Oral 2-12 PO, BID, # l Tablet 14:58: 60 tab, [place] 59 Pharmacy: [facility] #[id number] lamotrigine 2018 No = 1 tab, Me moria 200 MG Oral 2-12 PO, BID, # l Tablet 14:58: 60 tab, [place] 59 [id number] lamoTRIgine 2017 Yes TAKE 1 Univ ers 200 mg 3-25 TABLET BY ity of tablet 00:00: MOUTH [place] 00 TWICE A Medical DAY Branch rOPINIRole Yes TAKE 1 Unive rs 2 mg tablet 3-25 TABLET BY ity of 00:00: MOUTH 3 [place] 00 TIMES A Medical DAY Branch lamoTRIgine 2016- Yes TAKE 1 Univ ers 200 mg 3-25 TABLET BY ity of tablet 00:00: MOUTH [place] 00 TWICE A Medical DAY Branch rOPINIRole 2016- Yes TAKE 1 Unive rs 2 mg tablet 3-25 TABLET BY ity of 00:00: MOUTH 3 TIMES A Medical DAY Branch lamoTRIgine 2017- Yes TAKE 1 Univ ers 200 mg 3-25 TABLET BY ity of tablet 00:00: MOUTH TWICE A Medical DAY Branch rOPINIRole 2016- Yes TAKE 1 Unive rs 2 mg tablet 3-25 TABLET BY ity of 00:00: MOUTH 3 TIMES A Medical DAY Branch lamoTRIgine 2017-0 Yes TAKE 1 Univ ers 200 mg 3-25 TABLET BY ity of tablet 00:00: MOUTH TWICE A Medical DAY Branch lamoTRIgine Yes TAKE 1 Univ ers 200 mg 3-25 TABLET BY ity of tablet 00:00: MOUTH TWICE A Medical DAY Branch lamoTRIgine 2016- Yes TAKE 1 Univ ers 200 mg 3-25 TABLET BY ity of tablet 00:00: MOUTH TWICE A Medical DAY Branch rOPINIRole 2016- Yes TAKE 1 Unive rs 2 mg tablet 3-25 TABLET BY ity of 00:00: MOUTH 3 TIMES A Medical DAY Branch lamoTRIgine 2016- Yes TAKE 1 Univ ers 200 mg 3-25 TABLET BY ity of tablet 00:00: MOUTH TWICE A Medical DAY Branch rOPINIRole 2016-0 Yes TAKE 1 Unive rs 2 mg tablet 3-25 TABLET BY ity of 00:00: MOUTH 3 TIMES A Medical DAY Branch lamoTRIgine 2016- Yes TAKE 1 Univ ers 200 mg 3-25 TABLET BY ity of tablet 00:00: MOUTH TWICE A Medical DAY Branch rOPINIRole 2017-0 Yes TAKE 1 Unive rs 2 mg tablet 3-25 TABLET BY ity of 00:00: MOUTH 3 TIMES A Medical DAY Branch lamoTRIgine 2016-0 Yes TAKE 1 Univ ers 200 mg 3-25 TABLET BY ity of tablet 00:00: MOUTH 00 TWICE A Medical DAY Branch rOPINIRole 2017-0 Yes TAKE 1 Unive rs 2 mg tablet 3-25 TABLET BY ity of 00:00: MOUTH 3 TIMES A Medical DAY Branch lamoTRIgine 2016- Yes TAKE 1 Univ ers 200 mg 3-25 TABLET BY ity of tablet 00:00: MOUTH 00 TWICE A Medical DAY Branch rOPINIRole 2017-0 Yes TAKE 1 Unive rs 2 mg tablet 3-25 TABLET BY ity of 00:00: MOUTH 3 TIMES A Medical DAY Branch lamoTRIgine 2017 Yes TAKE 1 Univ ers 200 mg 3-25 TABLET BY ity of tablet 00:00: MOUTH TWICE A Medical DAY Branch rOPINIRole Yes TAKE 1 Unive rs 2 mg tablet 3-25 TABLET BY ity of 00:00: MOUTH 3 TIMES A Medical DAY Branch lamoTRIgine Yes TAKE 1 Univ ers 200 mg 3-25 TABLET BY ity of tablet 00:00: MOUTH TWICE A Medical DAY Branch rOPINIRole Yes TAKE 1 Unive rs 2 mg tablet 3-25 TABLET BY ity of 00:00: MOUTH 3 TIMES A Medical DAY Branch lamoTRIgine Yes TAKE 1 Univ ers 200 mg 3-25 TABLET BY ity of tablet 00:00: MOUTH TWICE A Medical DAY Branch rOPINIRole Yes TAKE 1 Unive rs 2 mg tablet 3-25 TABLET BY ity of 00:00: MOUTH TIMES A Medical DAY Branch lamoTRIgine Yes TAKE 1 Univ ers 200 mg 3-25 TABLET BY ity of tablet 00:00: MOUTH TWICE A Medical DAY Branch rOPINIRole Yes TAKE 1 Unive rs 2 mg tablet 3-25 TABLET BY ity of 00:00: MOUTH TIMES A Medical DAY Branch lamoTRIgine 2016- Yes TAKE 1 Univ ers 200 mg 3-25 TABLET BY ity of tablet 00:00: MOUTH TWICE A Medical DAY Branch rOPINIRole 2016-0 Yes TAKE 1 Unive rs 2 mg tablet 3-25 TABLET BY ity of 00:00: MOUTH 3 TIMES A Medical DAY Branch lamoTRIgine Yes TAKE 1 Univ ers 200 mg 3-25 TABLET BY ity of tablet 00:00: MOUTH TWICE A Medical DAY Branch rOPINIRole Yes TAKE 1 Unive rs 2 mg tablet 3-25 TABLET BY ity of 00:00: MOUTH 3 TIMES A Medical DAY Branch lamoTRIgine Yes TAKE 1 Univ ers 200 mg 3-25 TABLET BY ity of tablet 00:00: MOUTH TWICE A Medical DAY Branch rOPINIRole Yes TAKE 1 Unive rs 2 mg tablet 3-25 TABLET BY ity of 00:00: MOUTH 3 TIMES A Medical DAY Branch lamoTRIgine 2017- Yes TAKE 1 Univ ers 200 mg 3-25 TABLET BY ity of tablet 00:00: MOUTH TWICE A Medical DAY Branch rOPINIRole Yes TAKE 1 Unive rs 2 mg tablet 3-25 TABLET BY ity of 00:00: MOUTH 3 TIMES A Medical DAY Branch lamoTRIgine Yes TAKE 1 Univ ers 200 mg 3-25 TABLET BY ity of tablet 00:00: MOUTH TWICE A Medical DAY Branch rOPINIRole Yes TAKE 1 Unive rs 2 mg tablet 3-25 TABLET BY ity of 00:00: MOUTH 3 TIMES A Medical DAY Branch lamoTRIgine Yes TAKE 1 Univ ers 200 mg 3-25 TABLET BY ity of tablet 00:00: MOUTH TWICE A Medical DAY Branch rOPINIRole Yes TAKE 1 Unive rs 2 mg tablet 3-25 TABLET BY ity of 00:00: MOUTH TIMES A Medical DAY Branch lamoTRIgine Yes TAKE 1 Univ ers 200 mg 3-25 TABLET BY ity of tablet 00:00: MOUTH TWICE A Medical DAY Branch rOPINIRole Yes TAKE 1 Unive rs 2 mg tablet 3-25 TABLET BY ity of 00:00: MOUTH 3 TIMES A Medical DAY Branch lamoTRIgine Yes TAKE 1 Univ ers 200 mg 3-25 TABLET BY ity of tablet 00:00: MOUTH TWICE A Medical DAY Branch rOPINIRole 2016-0 Yes TAKE 1 Unive rs 2 mg tablet 3-25 TABLET BY ity of 00:00: MOUTH 3 TIMES A Medical DAY Branch lamoTRIgine 2016- Yes TAKE 1 Univ ers 200 mg 3-25 TABLET BY ity of tablet 00:00: MOUTH TWICE A Medical DAY Branch lamoTRIgine 2017-0 Yes TAKE 1 Univ ers 200 mg 3-25 TABLET BY ity of tablet 00:00: MOUTH 00 TWICE A Medical DAY Branch rOPINIRole 0 Yes TAKE 1 Unive rs 2 mg tablet 3-25 TABLET BY ity of 00:00: MOUTH 3 TIMES A Medical DAY Branch rOPINIRole 2016-0 Yes TAKE 1 Unive rs 2 mg tablet 3-25 TABLET BY ity of 00:00: MOUTH 3 TIMES A Medical DAY Branch lamoTRIgine 2017 Yes TAKE 1 Univ ers 200 mg 3-25 TABLET BY ity of tablet 00:00: MOUTH TWICE A Medical DAY Branch rOPINIRole Yes TAKE 1 Unive rs 2 mg tablet 3-25 TABLET BY ity of 00:00: MOUTH 3 TIMES A Medical DAY Branch lamoTRIgine Yes TAKE 1 Univ ers 200 mg 3-25 TABLET BY ity of tablet 00:00: MOUTH TWICE A Medical DAY Branch rOPINIRole Yes TAKE 1 Unive rs 2 mg tablet 3-25 TABLET BY ity of 00:00: MOUTH 3 TIMES A Medical DAY Branch lamoTRIgine Yes TAKE 1 Univ ers 200 mg 3-25 TABLET BY ity of tablet 00:00: MOUTH TWICE A Medical DAY Branch rOPINIRole Yes TAKE 1 Unive rs 2 mg tablet 3-25 TABLET BY ity of 00:00: MOUTH TIMES A Medical DAY Branch lamoTRIgine Yes TAKE 1 Univ ers 200 mg 3-25 TABLET BY ity of tablet 00:00: MOUTH TWICE A Medical DAY Branch rOPINIRole Yes TAKE 1 Unive rs 2 mg tablet 3-25 TABLET BY ity of 00:00: MOUTH TIMES A Medical DAY Branch lamoTRIgine 2016- Yes TAKE 1 Univ ers 200 mg 3-25 TABLET BY ity of tablet 00:00: MOUTH TWICE A Medical DAY Branch rOPINIRole 2016-0 Yes TAKE 1 Unive rs 2 mg tablet 3-25 TABLET BY ity of 00:00: MOUTH 3 TIMES A Medical DAY Branch lamoTRIgine 2016- Yes TAKE 1 Univ ers 200 mg 3-25 TABLET BY ity of tablet 00:00: MOUTH TWICE A Medical DAY Branch rOPINIRole 2016-0 Yes TAKE 1 Unive rs 2 mg tablet 3-25 TABLET BY ity of 00:00: MOUTH 3 TIMES A Medical DAY Branch lamoTRIgine 2016-0 Yes TAKE 1 Univ ers 200 mg 3-25 TABLET BY ity of tablet 00:00: MOUTH TWICE A Medical DAY Branch rOPINIRole 2016-0 Yes TAKE 1 Unive rs 2 mg tablet 3-25 TABLET BY ity of 00:00: MOUTH 3 [place] 00 TIMES A Medical DAY Branch lamoTRIgine Yes TAKE 1 Univ ers 200 mg 3-25 TABLET BY ity of tablet 00:00: MOUTH 00 TWICE A Medical DAY Branch rOPINIRole Yes TAKE 1 Unive rs 2 mg tablet 3-25 TABLET BY ity of 00:00: MOUTH 3 [place] 00 TIMES A Medical DAY Branch lamoTRIgine 2022- No TAKE 1 Uni vers 200 mg 3-25 07-03 TABLET BY ity of tablet 00:00: 00:00 MOUTH [place] 00 :00 TWICE A Medical DAY Branch rOPINIRole 2022- No TAKE 1 Univ ers 2 mg tablet 3-25 06-05 TABLET BY it y of 00:00: 00:00 MOUTH 3 [place] 00 :00 TIMES A Medical DAY Branch gabapentin Yes TAKE TWO Uni vers 300 mg 2-13 CAPSULE BY ity of capsule 00:00: MOUTH 3 [place] TIMES A Medical DAY Branch gabapentin Yes TAKE TWO Uni vers 300 mg 2-13 CAPSULE BY ity of capsule 00:00: MOUTH 3 [place] TIMES A Medical DAY Branch gabapentin Yes TAKE TWO Uni vers 300 mg 2-13 CAPSULE BY ity of capsule 00:00: MOUTH 3 [place] TIMES A Medical DAY Branch gabapentin Yes TAKE TWO Uni vers 300 mg 2-13 CAPSULE BY ity of capsule 00:00: MOUTH 3 [place] TIMES A Medical DAY Branch lovastatin Yes 20mg Take 20 mg U nivers 20 mg 2-13 by mouth ity of tablet 00:00: every [place] 00 morning. Medical Branch gabapentin 2016- Yes TAKE TWO Uni vers 300 mg 2-13 CAPSULE BY ity of capsule 00:00: MOUTH 3 [place] TIMES A Medical DAY Branch lovastatin 0 Yes 20mg Take 20 mg U nivers 20 mg 2-13 by mouth ity of tablet 00:00: every [place] 00 morning. Medical Branch gabapentin 2016- Yes TAKE TWO Uni vers 300 mg 2-13 CAPSULE BY ity of capsule 00:00: MOUTH 3 [place] 00 TIMES A Medical DAY Branch lovastatin 0 Yes 20mg Take 20 mg U nivers 20 mg 2-13 by mouth ity of tablet 00:00: every [place] 00 morning. Medical Branch gabapentin Yes TAKE TWO Uni vers 300 mg 2-13 CAPSULE BY ity of capsule 00:00: MOUTH 3 TIMES A Medical DAY Branch lovastatin 2017-0 Yes 20mg Take 20 mg U nivers 20 mg 2-13 by mouth ity of tablet 00:00: every [place] 00 morning. Medical Branch gabapentin 2016-0 Yes TAKE TWO Uni vers 300 mg 2-13 CAPSULE BY ity of capsule 00:00: MOUTH 3 TIMES A Medical DAY Branch lovastatin 2017-0 Yes 20mg Take 20 mg U nivers 20 mg 2-13 by mouth ity of tablet 00:00: every [place] 00 morning. Medical Branch gabapentin 2016-0 Yes TAKE TWO Uni vers 300 mg 2-13 CAPSULE BY ity of capsule 00:00: MOUTH 3 [place] TIMES A Medical DAY Branch lovastatin 2016-0 Yes 20mg Take 20 mg U nivers 20 mg 2-13 by mouth ity of tablet 00:00: every [place] 00 morning. Medical Branch gabapentin 2016-0 Yes TAKE TWO Uni vers 300 mg 2-13 CAPSULE BY ity of capsule 00:00: MOUTH 3 [place] TIMES A Medical DAY Branch lovastatin 2016-0 Yes 20mg Take 20 mg U nivers 20 mg 2-13 by mouth ity of tablet 00:00: every [place] 00 morning. Medical Branch gabapentin 2016-0 Yes TAKE TWO Uni vers 300 mg 2-13 CAPSULE BY ity of capsule 00:00: MOUTH 3 [place] TIMES A Medical DAY Branch lovastatin 2016-0 Yes 20mg Take 20 mg U nivers 20 mg 2-13 by mouth ity of tablet 00:00: every [place] 00 morning. Medical Branch gabapentin 2017-0 Yes TAKE TWO Uni vers 300 mg 2-13 CAPSULE BY ity of capsule 00:00: MOUTH 3 [place] TIMES A Medical DAY Branch lovastatin 2017-0 Yes 20mg Take 20 mg U nivers 20 mg 2-13 by mouth ity of tablet 00:00: every [place] 00 morning. Medical Branch gabapentin 2016-0 Yes TAKE TWO Uni vers 300 mg 2-13 CAPSULE BY ity of capsule 00:00: MOUTH 3 [place] TIMES A Medical DAY Branch lovastatin 2017-0 Yes 20mg Take 20 mg U nivers 20 mg 2-13 by mouth ity of tablet 00:00: every [place] 00 morning. Medical Branch gabapentin 2016-0 Yes TAKE TWO Uni vers 300 mg 2-13 CAPSULE BY ity of capsule 00:00: MOUTH 3 [place] 00 TIMES A Medical DAY Branch lovastatin 2017-0 Yes 20mg Take 20 mg U nivers 20 mg 2-13 by mouth ity of tablet 00:00: every [place] 00 morning. Medical Branch gabapentin 2017-0 Yes TAKE TWO Uni vers 300 mg 2-13 CAPSULE BY ity of capsule 00:00: MOUTH 3 [place] TIMES A Medical DAY Branch lovastatin 2017-0 Yes 20mg Take 20 mg U nivers 20 mg 2-13 by mouth ity of tablet 00:00: every [place] 00 morning. Medical Branch gabapentin 2016-0 Yes TAKE TWO Uni vers 300 mg 2-13 CAPSULE BY ity of capsule 00:00: MOUTH 3 [place] TIMES A Medical DAY Branch lovastatin 0 Yes 20mg Take 20 mg U nivers 20 mg 2-13 by mouth ity of tablet 00:00: every [place] 00 morning. Medical Branch gabapentin 2016-0 Yes TAKE TWO Uni vers 300 mg 2-13 CAPSULE BY ity of capsule 00:00: MOUTH 3 [place] TIMES A Medical DAY Branch lovastatin 2016-0 Yes 20mg Take 20 mg U nivers 20 mg 2-13 by mouth ity of tablet 00:00: every [place] 00 morning. Medical Branch gabapentin 2016-0 Yes TAKE TWO Uni vers 300 mg 2-13 CAPSULE BY ity of capsule 00:00: MOUTH 3 [place] TIMES A Medical DAY Branch lovastatin 2016-0 Yes 20mg Take 20 mg U nivers 20 mg 2-13 by mouth ity of tablet 00:00: every [place] 00 morning. Medical Branch gabapentin 2016-0 Yes TAKE TWO Uni vers 300 mg 2-13 CAPSULE BY ity of capsule 00:00: MOUTH 3 [place] TIMES A Medical DAY Branch lovastatin 2016-0 Yes 20mg Take 20 mg U nivers 20 mg 2-13 by mouth ity of tablet 00:00: every [place] 00 morning. Medical Branch gabapentin 2017-0 Yes TAKE TWO Uni vers 300 mg 2-13 CAPSULE BY ity of capsule 00:00: MOUTH 3 [place] TIMES A Medical DAY Branch gabapentin 2017-0 Yes TAKE TWO Uni vers 300 mg 2-13 CAPSULE BY ity of capsule 00:00: MOUTH 3 [place] TIMES A Medical DAY Branch lovastatin 2017-0 Yes 20mg Take 20 mg U nivers 20 mg 2-13 by mouth ity of tablet 00:00: every [place] 00 morning. Medical Branch lovastatin 2017-0 Yes 20mg Take 20 mg U nivers 20 mg 2-13 by mouth ity of tablet 00:00: every [place] 00 morning. Medical Branch gabapentin 2017-0 Yes TAKE TWO Uni vers 300 mg 2-13 CAPSULE BY ity of capsule 00:00: MOUTH 3 [place] 00 TIMES A Medical DAY Branch lovastatin [id number] Yes 20mg Take 20 mg U nivers 20 mg 2-13 by mouth ity of tablet 00:00: every [place] 00 morning. Medical Branch gabapentin 2017-0 Yes TAKE TWO Uni vers 300 mg 2-13 CAPSULE BY ity of capsule 00:00: MOUTH 3 [place] 00 TIMES A Medical DAY Branch gabapentin 2016-0 Yes TAKE TWO Uni vers 300 mg 2-13 CAPSULE BY ity of capsule 00:00: MOUTH 3 [place] 00 TIMES A Medical DAY Branch gabapentin 2016- Yes TAKE TWO Uni vers 300 mg 2-13 CAPSULE BY ity of capsule 00:00: MOUTH 3 [place] 00 TIMES A Medical DAY Branch gabapentin 2016- Yes TAKE TWO Uni vers 300 mg 2-13 CAPSULE BY ity of capsule 00:00: MOUTH 3 [place] 00 TIMES A Medical DAY Branch gabapentin 2016- Yes TAKE TWO Uni vers 300 mg 2-13 CAPSULE BY ity of capsule 00:00: MOUTH 3 [place] 00 TIMES A Medical DAY Branch gabapentin 2016- Yes TAKE TWO Uni vers 300 mg 2-13 CAPSULE BY ity of capsule 00:00: MOUTH 3 [place] 00 TIMES A Medical DAY Branch gabapentin 2016- Yes TAKE TWO Uni vers 300 mg 2-13 CAPSULE BY ity of capsule 00:00: MOUTH 3 [place] 00 TIMES A Medical DAY Branch gabapentin 2016- Yes TAKE TWO Uni vers 300 mg 2-13 CAPSULE BY ity of capsule 00:00: MOUTH 3 [place] 00 TIMES A Medical DAY Branch gabapentin 2016-0 2022- No TAKE TWO Un meri 300 mg 2-13 06-05 CAPSULE BY ity of capsule 00:00: 00:00 MOUTH 3 [place] 00 :00 TIMES A Medical DAY Branch lovastatin 2016-2021- No 20mg Take 20 mg Univers 20 mg 2-13 - by mouth ity of tablet 00:00: 00:00 every [place] 00 :00 morning. Medical Branch BD Siobhan 2nd BD Siobhan 2nd No BD Siobhan Devoted Gen Pen Gen Pen 2nd Gen Medica l Needle 32 Needle 32 Pen Needle Group gauge x gauge x 32 gauge x " USE 1 " USE 1 " USE PEN NEEDLE PEN NEEDLE 1 PEN ONCE A DAY ONCE A DAY NEEDLE ONCE A DAY citalopram citalopram No citalopram Devoted 40 mg 40 mg 40 mg Medical tablet TAKE tablet TAKE tablet Group 1 TABLET BY 1 TABLET BY TAKE 1 MOUTH ONCE MOUTH ONCE TABLET BY DAILY DAILY MOUTH ONCE DAILY clopidogrel clopidogrel No clopidogre Devoted 75 mg 75 mg l 75 mg Medical tablet TAKE tablet TAKE tablet Group 1 TABLET BY 1 TABLET BY TAKE 1 MOUTH ONCE MOUTH ONCE TABLET BY DAILY DAILY MOUTH ONCE DAILY Eliquis 5 Eliquis 5 No Eliquis 5 Devoted mg tablet mg tablet mg tablet Medical TAKE 1 TAKE 1 TAKE 1 Group TABLET BY TABLET BY TABLET BY MOUTH TWICE MOUTH TWICE MOUTH DAILY DAILY TWICE DAILY gabapentin gabapentin No gabapentin Devoted 300 mg 300 mg 300 mg Medical capsule capsule capsule Group TAKE 2 TAKE 2 TAKE 2 CAPSULES BY CAPSULES BY CAPSULES MOUTH THREE MOUTH THREE BY MOUTH TIMES DAILY TIMES DAILY THREE TIMES DAILY glipizide glipizide No glipizide Devoted ER 10 mg ER 10 mg ER 10 mg Med ical tablet, tablet, tablet, Group extended extended extended release 24 release 24 release 24 hr TAKE 1 hr TAKE 1 hr TAKE 1 TABLET BY TABLET BY TABLET BY MOUTH TWICE MOUTH TWICE MOUTH DAILY DAILY TWICE DAILY iron 65 mg iron 65 mg No iron 65 mg Devoted Take 1 Take 1 Take 1 Medical TABLET PO TABLET PO TABLET PO Group DAILY DAILY DAILY lamotrigine lamotrigine No lamotrigin Devoted 200 mg 200 mg e 200 mg Medical tablet TAKE tablet TAKE tablet Group 1 TABLET BY 1 TABLET BY TAKE 1 MOUTH TWICE MOUTH TWICE TABLET BY DAILY DAILY MOUTH TWICE DAILY Lantus Lantus No Lantus Devoted Solostar Solostar Solostar Med ical U-100 U-100 U-100 Group Insulin 100 Insulin 100 Insulin unit/mL (3 unit/mL (3 100 mL) mL) unit/mL (3 subcutaneou subcutaneou mL) s pen s pen subcutaneo INJECT 10 INJECT 10 us pen UNITS UNITS INJECT 10 SUBCUTANEOU SUBCUTANEOU UNITS SLY ONCE SLY ONCE SUBCUTANEO DAILY DAILY USLY ONCE DAILY metformin metformin No metformin Devoted 1,000 mg 1,000 mg 1,000 mg Med ical tablet TAKE tablet TAKE tablet Group 1 TABLET BY 1 TABLET BY TAKE 1 MOUTH TWICE MOUTH TWICE TABLET BY DAILY DAILY MOUTH TWICE DAILY omeprazole omeprazole No omeprazole Devoted 40 mg 40 mg 40 mg Medical capsule,del capsule,del capsule,de Group ayed ayed layed release release release TAKE 1 TAKE 1 TAKE 1 CAPSULE BY CAPSULE BY CAPSULE BY MOUTH ONCE MOUTH ONCE MOUTH ONCE DAILY DAILY DAILY ropinirole ropinirole No ropinirole Devoted 2 mg tablet 2 mg tablet 2 mg M edical TAKE 1 TAKE 1 tablet Group TABLET BY TABLET BY TAKE 1 MOUTH THREE MOUTH THREE TABLET BY TIMES DAILY TIMES DAILY MOUTH THREE TIMES DAILY Xanax 0.5 Xanax 0.5 No 1 TID Xanax 0.5 Devoted mg tablet mg tablet mg tablet Medical Take 1 Take 1 Take 1 Group tablet 3 tablet 3 tablet 3 times a day times a day times a by oral by oral day by route as route as oral route needed. needed. as needed. Immunizations Ordered Filled Immunization Date Status Comments [facility] e Immunization Name Name SARS-COV-2 COVID-19 2021-09-23 Completed Unive rsity of MODERNA VACCINE 00:00:00 [facility] ical Branch SARS-COV-2 COVID-19 2021-09-23 Completed Unive rsity of MODERNA VACCINE 00:00:00 [facility] ical Branch SARS-COV-2 COVID-19 2021-09-23 Completed Unive rsity of MODERNA VACCINE 00:00:00 [facility] ical Branch SARS-COV-2 COVID-19 2021-09-23 Completed Unive rsity of MODERNA 12+ YRS 00:00:00 [facility] ical VACCINE Branch SARS-COV-2 COVID-19 2021-09-23 Completed Unive rsity of MODERNA 12+ YRS 00:00:00 [facility] ical VACCINE Branch SARS-COV-2 COVID-19 2021-09-23 Completed Unive rsity of MODERNA 12+ YRS 00:00:00 [facility] ical VACCINE Branch SARS-COV-2 COVID-19 2021-09-23 Completed Unive rsity of MODERNA 12+ YRS 00:00:00 [facility] ical VACCINE Branch SARS-COV-2 COVID-19 2021-09-23 Completed Unive rsity of MODERNA 12+ YRS 00:00:00 [facility] ical VACCINE Branch SARS-COV-2 COVID-19 2021-09-23 Completed Unive rsity of MODERNA VACCINE 00:00:00 [facility] ical Branch SARS-COV-2 COVID-19 2021-09-23 Completed Unive rsity of MODERNA VACCINE 00:00:00 [place] [facility] ical Branch SARS-COV-2 COVID-19 2021-09-23 Completed Unive rsity of MODERNA VACCINE 00:00:00 [place] [facility] ical Branch SARS-COV-2 COVID-19 2021-09-23 Completed Unive rsity of MODERNA VACCINE 00:00:00 [place] [facility] ical Branch SARS-COV-2 COVID-19 2021-09-23 Completed Unive rsity of MODERNA VACCINE 00:00:00 [place] [facility] ical Branch SARS-COV-2 COVID-19 2021-09-23 Completed Unive rsity of MODERNA VACCINE 00:00:00 [place] [facility] ical Branch SARS-COV-2 COVID-19 2021-09-23 Completed Unive rsity of MODERNA VACCINE 00:00:00 [place] [facility] ical Branch SARS-COV-2 COVID-19 2021-04-03 Completed Unive rsity of MODERNA 12+ YRS 00:00:00 [place] [facility] ical VACCINE Branch SARS-COV-2 COVID-19 2021-04-03 Completed Unive rsity of MODERNA 12+ YRS 00:00:00 [place] [facility] ical VACCINE Branch SARS-COV-2 COVID-19 2021-04-03 Completed Unive rsity of MODERNA 12+ YRS 00:00:00 [place] [facility] ical VACCINE Branch SARS-COV-2 COVID-19 2021-04-03 Completed Unive rsity of MODERNA 12+ YRS 00:00:00 [place] [facility] ical VACCINE Branch SARS-COV-2 COVID-19 2021-04-03 Completed Unive rsity of MODERNA 12+ YRS 00:00:00 [place] [facility] ical VACCINE Branch MODERNA COVID-19 2021-04-03 Completed Methodis t MRNA VACCINATION 00:00:00 [facility] SARS-COV-2 COVID-19 2020-09-04 Completed Unive rsity of MODERNA VACCINE 00:00:00 [place] [facility] ical Branch SARS-COV-2 COVID-19 2020-09-04 Completed Unive rsity of MODERNA VACCINE 00:00:00 [facility] ical Branch SARS-COV-2 COVID-19 2020-09-04 Completed Unive rsity of MODERNA VACCINE 00:00:00 [facility] ical Branch SARS-COV-2 COVID-19 2020-09-04 Completed Unive rsity of MODERNA VACCINE 00:00:00 [place] [facility] ical Branch SARS-COV-2 COVID-19 2020-09-04 Completed Unive rsity of MODERNA 12+ YRS 00:00:00 [place] [facility] ical VACCINE Branch SARS-COV-2 COVID-19 2020-09-04 Completed Unive rsity of MODERNA 12+ YRS 00:00:00 [place] [facility] ical VACCINE Branch SARS-COV-2 COVID-19 2020-09-04 Completed Unive rsity of MODERNA 12+ YRS 00:00:00 [place] [facility] ical VACCINE Branch SARS-COV-2 COVID-19 2020-09-04 Completed Unive rsity of MODERNA 12+ YRS 00:00:00 [place] [facility] ical VACCINE Branch SARS-COV-2 COVID-19 2020-09-04 Completed Unive rsity of MODERNA 12+ YRS 00:00:00 [place] [facility] ical VACCINE Branch SARS-COV-2 COVID-19 2020-09-04 Completed Unive rsity of MODERNA VACCINE 00:00:00 [place] [facility] ical Branch SARS-COV-2 COVID-19 2020-09-04 Completed Unive rsity of MODERNA VACCINE 00:00:00 [place] [facility] ical Branch SARS-COV-2 COVID-19 2020-09-04 Completed Unive rsity of MODERNA VACCINE 00:00:00 [place] [facility] ical Branch SARS-COV-2 COVID-19 2020-09-04 Completed Unive rsity of MODERNA VACCINE 00:00:00 [place] [facility] ical Branch SARS-COV-2 COVID-19 2020-09-04 Completed Unive rsity of MODERNA VACCINE 00:00:00 [place] [facility] ical Branch SARS-COV-2 COVID-19 2020-09-04 Completed Unive rsity of MODERNA VACCINE 00:00:00 [place] [facility] ical Branch SARS-COV-2 COVID-19 2020-09-04 Completed Unive rsity of MODERNA VACCINE 00:00:00 [place] [facility] ical Branch SARS-COV-2 COVID-19 2020-09-04 Completed Unive rsity of MODERNA VACCINE 00:00:00 [place] [facility] ical Branch SARS-COV-2 COVID-19 2020-09-04 Completed Unive rsity of MODERNA VACCINE 00:00:00 [place] [facility] ical Branch SARS-COV-2 COVID-19 2020-09-04 Completed Unive rsity of MODERNA VACCINE 00:00:00 [place] [facility] ical Branch SARS-COV-2 COVID-19 2020-09-04 Completed Unive rsity of MODERNA VACCINE 00:00:00 [facility] ical Branch SARS-COV-2 COVID-19 2020-09-04 Completed Unive rsity of MODERNA VACCINE 00:00:00 [facility] ical Branch SARS-COV-2 COVID-19 2020-09-04 Completed Unive rsity of MODERNA VACCINE 00:00:00 [facility] ical Branch SARS-COV-2 COVID-19 2020-09-04 Completed Unive rsity of MODERNA VACCINE 00:00:00 [facility] ical Branch SARS-COV-2 COVID-19 2020-09-04 Completed Unive rsity of MODERNA VACCINE 00:00:00 [facility] ical Branch MODERNA COVID-19 2020-09-04 Completed Methodis t MRNA VACCINATION 00:00:00 [facility] MODERNA COVID-19 2020-08-10 Completed Methodis t MRNA VACCINATION 00:00:00 [facility] SARS-COV-2 COVID-19 2020-03-12 Completed Unive rsity of MODERNA VACCINE 00:00:00 [facility] ical Branch SARS-COV-2 COVID-19 2020-03-12 Completed Unive rsity of MODERNA VACCINE 00:00:00 [facility] ical Branch SARS-COV-2 COVID-19 2020-03-12 Completed Unive rsity of MODERNA VACCINE 00:00:00 [facility] ical Branch SARS-COV-2 COVID-19 2020-03-12 Completed Unive rsity of MODERNA VACCINE 00:00:00 [facility] ical Branch SARS-COV-2 COVID-19 2020-03-12 Completed Unive rsity of MODERNA 12+ YRS 00:00:00 [place] [facility] ical VACCINE Branch SARS-COV-2 COVID-19 2020-03-12 Completed Unive rsity of MODERNA 12+ YRS 00:00:00 [facility] ical VACCINE Branch SARS-COV-2 COVID-19 2020-03-12 Completed Unive rsity of MODERNA 12+ YRS 00:00:00 [place] [facility] ical VACCINE Branch SARS-COV-2 COVID-19 2020-03-12 Completed Unive rsity of MODERNA 12+ YRS 00:00:00 [place] [facility] ical VACCINE Branch SARS-COV-2 COVID-19 2020-03-12 Completed Unive rsity of MODERNA 12+ YRS 00:00:00 [place] [facility] ical VACCINE Branch SARS-COV-2 COVID-19 2020-03-12 Completed Unive rsity of MODERNA VACCINE 00:00:00 [place] [facility] ical Branch SARS-COV-2 COVID-19 2020-03-12 Completed Unive rsity of MODERNA VACCINE 00:00:00 [place] [facility] ical Branch SARS-COV-2 COVID-19 2020-03-12 Completed Unive rsity of MODERNA VACCINE 00:00:00 [place] [facility] ical Branch SARS-COV-2 COVID-19 2020-03-12 Completed Unive rsity of MODERNA VACCINE 00:00:00 [place] [facility] ical Branch SARS-COV-2 COVID-19 2020-03-12 Completed Unive rsity of MODERNA VACCINE 00:00:00 [place] [facility] ical Branch SARS-COV-2 COVID-19 2020-03-12 Completed Unive rsity of MODERNA VACCINE 00:00:00 [place] [facility] ical Branch SARS-COV-2 COVID-19 2020-03-12 Completed Unive rsity of MODERNA VACCINE 00:00:00 [place] [facility] ical Branch SARS-COV-2 COVID-19 2020-03-12 Completed Unive rsity of MODERNA VACCINE 00:00:00 [place] [facility] ical Branch SARS-COV-2 COVID-19 2020-03-12 Completed Unive rsity of MODERNA VACCINE 00:00:00 [place] [facility] ical Branch SARS-COV-2 COVID-19 2020-03-12 Completed Unive rsity of MODERNA VACCINE 00:00:00 [place] [facility] ical Branch SARS-COV-2 COVID-19 2020-03-12 Completed Unive rsity of MODERNA VACCINE 00:00:00 [place] [facility] ical Branch SARS-COV-2 COVID-19 2020-03-12 Completed Unive rsity of MODERNA VACCINE 00:00:00 [place] [facility] ical Branch SARS-COV-2 COVID-19 2020-03-12 Completed Unive rsity of MODERNA VACCINE 00:00:00 [facility] SARS-COV-2 COVID-19 2020-03-12 Completed Unive rsity of MODERNA VACCINE 00:00:00 [facility] SARS-COV-2 COVID-19 2020-03-12 Completed Unive rsity of MODERNA VACCINE 00:00:00 [facility] Influenza High Dose 2019-03-03 Completed Unive rsity of 00:00:00 [facility] [place] Influenza High Dose 2019-03-03 Completed Unive rsity of 00:00:00 [facility] [place] Influenza High Dose 2019-03-03 Completed Unive rsity of 00:00:00 [facility] [place] Influenza High Dose 2019-03-03 Completed Unive rsity of 00:00:00 [facility] [place] Influenza High Dose 2019-03-03 Completed Unive rsity of 00:00:00 [facility] [place] Influenza High Dose 2019-03-03 Completed Unive rsity of 00:00:00 [facility] [place] Influenza High Dose 2019-03-03 Completed Unive rsity of 00:00:00 [facility] [place] Influenza High Dose 2019-03-03 Completed Unive rsity of 00:00:00 [facility] [place] Influenza High Dose 2019-03-03 Completed Unive rsity of 00:00:00 [facility] [place] Influenza High Dose 2019-03-03 Completed Unive rsity of 00:00:00 [facility] [place] Influenza High Dose 2019-03-03 Completed Unive rsity of 00:00:00 [facility] [place] Influenza High Dose 2019-03-03 Completed Unive rsity of 00:00:00 [facility] [place] Influenza High Dose 2019-03-03 Completed Unive rsity of 00:00:00 [facility] [place] Influenza High Dose 2019-03-03 Completed Unive rsity of 00:00:00 [facility] [place] Influenza High Dose 2019-03-03 Completed Unive rsity of 00:00:00 [facility] [place] Influenza High Dose 2019-03-03 Completed Unive rsity of 00:00:00 [facility] [place] Influenza High Dose 2019-03-03 Completed Unive rsity of 00:00:00 [facility] [place] Influenza High Dose 2019-03-03 Completed Unive rsity of 00:00:00 [facility] [place] Influenza High Dose 2019-03-03 Completed Unive rsity of 00:00:00 [facility] [place] Influenza High Dose 2019-03-03 Completed Unive rsity of 00:00:00 [facility] [place] Influenza High Dose 2019-03-03 Completed Unive rsity of 00:00:00 [facility] [place] Influenza High Dose 2019-03-03 Completed Unive rsity of 00:00:00 [facility] [place] Influenza High Dose 2019-03-03 Completed Unive rsity of 00:00:00 [facility] [place] Influenza High Dose 2019-03-03 Completed Unive rsity of 00:00:00 [facility] [place] Influenza High Dose 2019-03-03 Completed Unive rsity of 00:00:00 [facility] [place] Influenza High Dose 2019-03-03 Completed Unive rsity of 00:00:00 [facility] [place] Influenza High Dose 2019-03-03 Completed Unive rsity of 00:00:00 [facility] [place] Influenza High Dose 2019-03-03 Completed Unive rsity of 00:00:00 [facility] [place] Influenza High Dose 2019-03-03 Completed Unive rsity of 00:00:00 [facility] [place] Influenza High Dose 2018-07-17 Completed Unive rsity of 00:00:00 [facility] [place] Pneumococcal 13 2018-07-17 Completed Universit y of Conjugate, PCV13 00:00:00 [facility] dical (Prevnar 13) [place] Influenza High Dose 2018-07-17 Completed Unive rsity of 00:00:00 [facility] [place] Pneumococcal 13 2018-07-17 Completed Universit y of Conjugate, PCV13 00:00:00 [facility] dical (Prevnar 13) Branch Influenza High Dose 2018-07-17 Completed Unive rsity of 00:00:00 [facility] [place] Pneumococcal 13 2018-07-17 Completed Universit y of Conjugate, PCV13 00:00:00 [facility] dical (Prevnar 13) Branch Influenza High Dose 2018-07-17 Completed Unive rsity of 00:00:00 [facility] [place] Pneumococcal 13 2018-07-17 Completed Universit y of Conjugate, PCV13 00:00:00 [place] [facility] dical (Prevnar 13) Branch Influenza High Dose 2018-07-17 Completed Unive rsity of 00:00:00 [facility] [place] Pneumococcal 13 2018-07-17 Completed Universit y of Conjugate, PCV13 00:00:00 [facility] dical (Prevnar 13) Branch Influenza High Dose 2018-07-17 Completed Unive rsity of 00:00:00 [facility] [place] Pneumococcal 13 2018-07-17 Completed Universit y of Conjugate, PCV13 00:00:00 [place] [facility] dical (Prevnar 13) Branch Influenza High Dose 2018-07-17 Completed Unive rsity of 00:00:00 [facility] [place] Pneumococcal 13 2018-07-17 Completed Universit y of Conjugate, PCV13 00:00:00 [place] [facility] dical (Prevnar 13) Branch Influenza High Dose 2018-07-17 Completed Unive rsity of 00:00:00 [facility] [place] Pneumococcal 13 2018-07-17 Completed Universit y of Conjugate, PCV13 00:00:00 [place] [facility] dical (Prevnar 13) Branch Influenza High Dose 2018-07-17 Completed Unive rsity of 00:00:00 [facility] [place] Pneumococcal 13 2018-07-17 Completed Universit y of Conjugate, PCV13 00:00:00 [place] [facility] dical (Prevnar 13) Branch Influenza High Dose 2018-07-17 Completed Unive rsity of 00:00:00 [facility] [place] Pneumococcal 13 2018-07-17 Completed Universit y of Conjugate, PCV13 00:00:00 [place] [facility] dical (Prevnar 13) Branch Influenza High Dose 2018-07-17 Completed Unive rsity of 00:00:00 [facility] [place] Pneumococcal 13 2018-07-17 Completed Universit y of Conjugate, PCV13 00:00:00 [place] [facility] dical (Prevnar 13) Branch Influenza High Dose 2018-07-17 Completed Unive rsity of 00:00:00 [facility] [place] Pneumococcal 13 2018-07-17 Completed Universit y of Conjugate, PCV13 00:00:00 [place] [facility] dical (Prevnar 13) Branch Influenza High Dose 2018-07-17 Completed Unive rsity of 00:00:00 [facility] [place] Pneumococcal 13 2018-07-17 Completed Universit y of Conjugate, PCV13 00:00:00 [place] [facility] dical (Prevnar 13) Branch Influenza High Dose 2018-07-17 Completed Unive rsity of 00:00:00 [facility] [place] Pneumococcal 13 2018-07-17 Completed Universit y of Conjugate, PCV13 00:00:00 [place] [facility] dical (Prevnar 13) Branch Influenza High Dose 2018-07-17 Completed Unive rsity of 00:00:00 [facility] [place] Pneumococcal 13 2018-07-17 Completed Universit y of Conjugate, PCV13 00:00:00 [place] [facility] dical (Prevnar 13) Branch Influenza High Dose 2018-07-17 Completed Unive rsity of 00:00:00 [facility] [place] Pneumococcal 13 2018-07-17 Completed Universit y of Conjugate, PCV13 00:00:00 [place] [facility] dical (Prevnar 13) Branch Influenza High Dose 2018-07-17 Completed Unive rsity of 00:00:00 [facility] [place] Pneumococcal 13 2018-07-17 Completed Universit y of Conjugate, PCV13 00:00:00 [place] [facility] dical (Prevnar 13) Branch Influenza High Dose 2018-07-17 Completed Unive rsity of 00:00:00 [facility] [place] Pneumococcal 13 2018-07-17 Completed Universit y of Conjugate, PCV13 00:00:00 [place] [facility] dical (Prevnar 13) Branch Influenza High Dose 2018-07-17 Completed Unive rsity of 00:00:00 [facility] [place] Pneumococcal 13 2018-07-17 Completed Universit y of Conjugate, PCV13 00:00:00 [place] [facility] dical (Prevnar 13) Branch Influenza High Dose 2018-07-17 Completed Unive rsity of 00:00:00 [facility] [place] Pneumococcal 13 2018-07-17 Completed Universit y of Conjugate, PCV13 00:00:00 [place] [facility] dical (Prevnar 13) Branch Influenza High Dose 2018-07-17 Completed Unive rsity of 00:00:00 [facility] [place] Pneumococcal 13 2018-07-17 Completed Universit y of Conjugate, PCV13 00:00:00 [place] [facility] dical (Prevnar 13) Branch Influenza High Dose 2018-07-17 Completed Unive rsity of 00:00:00 [facility] [place] Pneumococcal 13 2018-07-17 Completed Universit y of Conjugate, PCV13 00:00:00 [place] [facility] dical (Prevnar 13) Branch Influenza High Dose 2018-07-17 Completed Unive rsity of 00:00:00 [facility] [place] Pneumococcal 13 2018-07-17 Completed Universit y of Conjugate, PCV13 00:00:00 [place] [facility] dical (Prevnar 13) Branch Influenza High Dose 2018-07-17 Completed Unive rsity of 00:00:00 [facility] [place] Pneumococcal 13 2018-07-17 Completed Universit y of Conjugate, PCV13 00:00:00 [facility] dical (Prevnar 13) Branch Vital Signs Vital Name Observation Time Observation Value Comments Source Height/Length 2021-06-20 167 cm Measured 09:47:40 Weight Dosing 2021-06-20 83.95 kg 09:47:40 Height/Length 2021-06-20 167 cm Measured 09:26:45 Weight Dosing 2021-06-20 83.95 kg 09:26:45 Height/Length 2021-06-20 167 cm Measured 09:26:32 Weight Dosing 2021-06-20 83.95 kg 09:26:32 Systolic blood 2022-12-03 112 mm[Hg] University of pressure 20:00:00 [facility] [place] Diastolic blood 2022-12-03 63 mm[Hg] University o f pressure 20:00:00 [facility] [place] Heart rate 2022-12-03 61 /min University of 20:00:00 [facility] [place] Body temperature 2022-12-03 36.72 Erica University of 20:00:00 [facility] [place] Respiratory rate 2022-12-03 12 /min University of 20:00:00 [facility] [place] Oxygen saturation 2022-12-03 97 /min University of in Arterial blood 20:00:00 [facility] by Pulse oximetry Branch Body height 2022-12-03 167.6 cm University of 02:12:00 [facility] [facility] [employer] [facility] Body weight 2022-12-03 78.971 kg University of 02:12:00 [facility] BMI 2022-12-03 28.10 kg/m2 University of 02:12:00 [facility] Systolic blood 2022-11-05 121 mm[Hg] University of pressure 16:00:00 [facility] Diastolic blood 2022-11-05 66 mm[Hg] University o f pressure 16:00:00 [facility] Heart rate 2022-11-05 72 /min University of 16:00:00 [facility] Body temperature 2022-11-05 36.72 Erica University of 16:00:00 [facility] Respiratory rate 2022-11-05 17 /min University of 16:00:00 [facility] Oxygen saturation 2022-11-05 94 /min University of in Arterial blood 16:00:00 [facility] by Pulse oximetry Branch Body height 2022-11-01 167.6 cm estimated by [facility] 19:22:00 [facility] Body weight 2022-11-01 81.647 kg estimated by University of 19:22:00 [facility] BMI 2022-11-01 29.05 kg/m2 University of 19:22:00 [facility] Systolic blood 2022-09-08 157 mm[Hg] University of pressure 08:00:00 [facility] Diastolic blood 2022-09-08 76 mm[Hg] University o f pressure 08:00:00 [facility] Heart rate 2022-09-08 83 /min University of 08:00:00 [facility] Respiratory rate 2022-09-08 17 /min University of 08:00:00 [facility] Oxygen saturation 2022-09-08 96 /min University of in Arterial blood 08:00:00 [place] [facility] Pulse oxim[facility] Body temperature 2022-09-08 36.78 Erica University of 05:39:00 [facility] Body height 2022-09-08 167.6 cm University of 05:39:00 [facility] Body weight 2022-09-08 80.74 kg University of 05:39:00 [facility] BMI 2022-09-08 28.73 kg/m2 University of 05:39:00 [facility] Systolic blood 2022-01-16 133 mm[Hg] University of pressure 18:30:00 [facility] Diastolic blood 2022-01-16 61 mm[Hg] University o f pressure 18:30:00 [facility] Heart rate 2022-01-16 57 /min University of 18:30:00 [facility] Oxygen saturation 2022-01-16 98 /min University of in Arterial blood 18:30:00 [place] [facility] Pulse oximetry [facility] Body temperature 2022-01-16 36.22 Erica University of 16:53:00 [facility] Respiratory rate 2022-01-16 16 /min University of 16:53:00 [facility] Body height 2022-01-15 165.1 cm University of 19:56:00 [facility] Body weight 2022-01-15 75.3 kg University of 19:56:00 [facility] BMI 2022-01-15 27.62 kg/m2 University of 19:56:00 [facility] Systolic blood 2021-09-23 124 mm[Hg] University of pressure 16:15:00 [facility] Diastolic blood 2021-09-23 63 mm[Hg] University o f pressure 16:15:00 [facility] Heart rate 2021-09-23 62 /min University of 16:15:00 [facility] Body temperature 2021-09-23 36.78 Erica University of 16:15:00 [facility] Respiratory rate 2021-09-23 16 /min University of 16:15:00 [facility] Oxygen saturation 2021-09-23 96 /min University of in Arterial blood 16:15:00 [facility] by Pulse oximetry Branch Body height 2021-09-23 165.1 cm University of 15:51:00 [facility] Body weight 2021-09-23 75.297 kg University of 15:51:00 [facility] BMI 2021-09-23 27.62 kg/m2 University of 15:51:00 [facility] Systolic blood 2021-04-29 120 mm[Hg] University of pressure 15:30:00 [facility] Diastolic blood 2021-04-29 83 mm[Hg] University o f pressure 15:30:00 [facility] Heart rate 2021-04-29 84 /min University of 15:30:00 [facility] Body temperature 2021-04-29 36.5 Erica University of 15:30:00 [facility] Respiratory rate 2021-04-29 18 /min University of 15:30:00 [facility] Body height 2021-04-29 167.6 cm University of 15:30:00 [facility] Body weight 2021-04-29 79.379 kg University of 15:30:00 [facility] BMI 2021-04-29 28.25 kg/m2 University of 15:30:00 [facility] Oxygen saturation 2021-04-29 99 /min University of in Arterial blood 15:30:00 [facility] corby by Pulse oximetry Branch Systolic blood 2021-01-24 143 mm[Hg] University of pressure 12:34:00 [facility] Diastolic blood 2021-01-24 78 mm[Hg] University o f pressure 12:34:00 [facility] Heart rate 2021-01-24 67 /min University of 12:34:00 [facility] Body temperature 2021-01-24 37.06 Erica University of 12:34:00 [facility] Respiratory rate 2021-01-24 18 /min University of 12:34:00 [facility] Oxygen saturation 2021-01-24 97 /min [facility] in Arterial blood 12:34:00 [place] [facility] Body height 2021-01-20 162.6 cm University of 21:51:00 [facility] Body weight 2021-01-20 82.555 kg University of 21:51:00 [facility] BMI 2021-01-20 31.24 kg/m2 University of 21:51:00 [facility] Systolic blood 2020-02-14 154 mm[Hg] University of pressure 19:25:00 [facility] Diastolic blood 2020-02-14 95 mm[Hg] University o f pressure 19:25:00 [facility] Heart rate 2020-02-14 82 /min University of 19:25:00 [facility] Body temperature 2020-02-14 36.72 Erica University of 19:25:00 [facility] Respiratory rate 2020-02-14 20 /min University of 19:25:00 [facility] Body weight 2020-02-14 84.823 kg University of 19:25:00 [facility] BMI 2020-02-14 30.18 kg/m2 University of 19:25:00 [facility] Oxygen saturation 2020-02-14 98 /min University of in Arterial blood 19:25:00 [facility] by Pulse oximetry Branch Systolic blood 2020-02-14 154 mm[Hg] University of pressure 19:25:00 [facility] Diastolic blood 2020-02-14 95 mm[Hg] University o f pressure 19:25:00 [facility] Heart rate 2020-02-14 82 /min University of 19:25:00 [facility] Body temperature 2020-02-14 36.72 Erica University of 19:25:00 [facility] Respiratory rate 2020-02-14 20 /min University of 19:25:00 [facility] Body weight 2020-02-14 84.823 kg University of 19:25:00 [facility] BMI 2020-02-14 30.18 kg/m2 University of 19:25:00 [facility] Oxygen saturation 2020-02-14 98 /min University of in Arterial blood 19:25:00 [facility] by Pulse oximetry Branch Systolic blood 2019-09-20 159 mm[Hg] University of pressure 21:15:00 [facility] Diastolic blood 2019-09-20 79 mm[Hg] University o f pressure 21:15:00 [facility] Heart rate 2019-09-20 71 /min University of 21:15:00 [facility] Oxygen saturation 2019-09-20 97 /min University of in Arterial blood 21:15:00 [facility] by Pulse oximetry Branch Respiratory rate 2019-09-20 16 /min University of 20:00:00 [facility] Body temperature 2019-09-20 37.61 Erica University of 17:50:00 [facility] Body weight 2019-09-20 86.183 kg University of 17:50:00 [facility] BMI 2019-09-20 30.67 kg/m2 University of 17:50:00 [facility] Systolic blood 2019-09-20 159 mm[Hg] University of pressure 21:15:00 [facility] Diastolic blood 2019-09-20 79 mm[Hg] University o f pressure 21:15:00 [facility] Heart rate 2019-09-20 71 /min University of 21:15:00 [facility] Oxygen saturation 2019-09-20 97 /min University of in Arterial blood 21:15:00 [facility] by Pulse oximetry Branch Respiratory rate 2019-09-20 16 /min University of 20:00:00 [facility] Body temperature 2019-09-20 37.61 Erica University of 17:50:00 [facility] Body weight 2019-09-20 86.183 kg University of 17:50:00 [facility] BMI 2019-09-20 30.67 kg/m2 University of 17:50:00 [facility] Height/Length 2019-08-07 Measured 14:27:17 Weight Dosing 2019-08-07 14:27:17 Heart rate 2019-02-15 81 /min University of 12:38:00 [facility] Respiratory rate 2019-02-15 20 /min University of 12:38:00 [facility] Oxygen saturation 2019-02-15 99 /min University of in Arterial blood 12:38:00 [facility] by Pulse oximetry Branch Systolic blood 2019-02-15 125 mm[Hg] University of pressure 12:32:00 [facility] Diastolic blood 2019-02-15 76 mm[Hg] University o f pressure 12:32:00 [facility] Body temperature 2019-02-15 36.94 Erica University of 12:32:00 [facility] Body weight 2019-02-15 83.915 kg University of 00:33:00 [facility] BMI 2019-02-15 29.86 kg/m2 [facility] 00:33:00 [facility] Heart rate 2019-02-15 81 /min [facility] 12:38:00 [facility] Respiratory rate 2019-02-15 20 /min [facility] of 12:38:00 [facility] Oxygen saturation 2019-02-15 99 /min University of in Arterial blood 12:38:00 [facility] by Pulse oximetry Branch Systolic blood 2019-02-15 125 mm[Hg] [facility] pressure 12:32:00 [facility] Diastolic blood 2019-02-15 76 mm[Hg] University o f pressure 12:32:00 [facility] Body temperature 2019-02-15 36.94 Erica University [facility] 12:32:00 [facility] Body weight 2019-02-15 83.915 kg University of 00:33:00 [facility] BMI 2019-02-15 29.86 kg/m2 University of 00:33:00 [facility] Systolic blood 2019-02-15 151 mm[Hg] [facility] of pressure 00:40:00 [facility] Diastolic blood 2019-02-15 94 mm[Hg] University o f pressure 00:40:00 [facility] Heart rate 2019-02-15 96 /min University of 00:40:00 [facility] Body temperature 2019-02-15 36.89 Erica University [facility] 00:40:00 [facility] Respiratory rate 2019-02-15 18 /min University of 00:40:00 [facility] Body height 2019-02-15 167.6 cm University of 00:40:00 [facility] Body weight 2019-02-15 84.086 kg University of 00:40:00 [facility] BMI 2019-02-15 29.92 kg/m2 University of 00:40:00 [facility] Oxygen saturation 2019-02-15 96 /min [facility] of in Arterial blood 00:40:00 [facility] by Pulse oximetry Branch Systolic blood 2019-02-15 151 mm[Hg] [facility] of pressure 00:40:00 [facility] Diastolic blood 2019-02-15 94 mm[Hg] University o f pressure 00:40:00 [facility] Heart rate 2019-02-15 96 /min [facility] of 00:40:00 [facility] Body temperature 2019-02-15 36.89 Erica University [facility] 00:40:00 [facility] Respiratory rate 2019-02-15 18 /min [facility] of 00:40:00 [facility] Body height 2019-02-15 167.6 cm University [facility] 00:40:00 [facility] Body weight 2019-02-15 84.086 kg University [facility] 00:40:00 [facility] BMI 2019-02-15 29.92 kg/m2 University [facility] 00:40:00 [facility] Oxygen saturation 2019-02-15 96 /min [facility] in Arterial blood 00:40:00 [place] [facility] Systolic blood 2019-01-31 136 mm[Hg] [facility] pressure 16:33:00 [facility] Diastolic blood 2019-01-31 76 mm[Hg] [facility] o f pressure 16:33:00 [facility] Heart rate 2019-01-31 84 /min [facility] of 16:33:00 [facility] Body temperature 2019-01-31 36.17 [facility] University of 16:33:00 [facility] Respiratory rate 2019-01-31 17 /min University of 16:33:00 [facility] Body height 2019-01-31 167.6 cm University of 16:33:00 [facility] Body weight 2019-01-31 85.276 kg University of 16:33:00 [facility] BMI 2019-01-31 30.34 kg/m2 University of 16:33:00 [facility] Oxygen saturation 2019-01-31 97 /min University of in Arterial blood 16:33:00 [place] [facility] Pulse oxim[facility] Systolic blood 2019-01-31 136 mm[Hg] [facility] pressure 16:33:00 [facility] Diastolic blood 2019-01-31 76 mm[Hg] [facility] o f pressure 16:33:00 [facility] Heart rate 2019-01-31 84 /min [facility] of 16:33:00 [facility] Body temperature 2019-01-31 36.17 Erica University [facility] 16:33:00 [facility] Respiratory rate 2019-01-31 17 /min [facility] 16:33:00 [facility] Body height 2019-01-31 167.6 cm [facility] 16:33:00 [facility] Body weight 2019-01-31 85.276 kg University [facility] 16:33:00 [facility] BMI 2019-01-31 30.34 kg/m2 [facility] 16:33:00 [facility] Oxygen saturation 2019-01-31 97 /min [facility] in Arterial blood 16:33:00 [place] [facility] P[facility] oxim[facility] Systolic (mm Hg) 2022-03-13 [facility] 18:17:00 Diastolic (mm Hg) 2022-03-13 [facility] 18:17:00 Heart Rate 2022-03-13 [facility] 18:17:00 Height 2022-03-13 5 [ft_i] [facility] 18:17:00 Weight 2022-03-13 [facility] 18:17:00 BMI Calculated 2022-03-13 [facility] 18:17:00 Systolic (mm Hg) 2022-01-22 [facility] 18:11:00 Diastolic (mm Hg) 2022-01-22 [facility] 18:11:00 Heart Rate 2022-01-22 [facility] 18[facility]11:00 Respitory Rate 2022-01-22 [facility] 18:11:00 Height 2022-01-22 165.1 cm [facility] 18:11:00 Weight 2022-01-22 [facility] 18:11:00 BMI Calculated 2022-01-22 [facility] 18:11:00 Systolic (mm Hg) 2021-06-07 [facility] 16:24:00 Diastolic (mm Hg) 2021-06-07 [facility] 16:24:00 Heart Rate 2021-06-07 [facility] 16:24:00 Respitory Rate 2021-06-07 [facility] 16:24:00 Height 2021-06-07 165.1 cm [facility] 16:24:00 Weight 2021-06-07 [facility] 16:24:00 BMI Calculated 2021-06-07 [facility] 16:24:00 Systolic (mm Hg) 2021-02-08 [facility] 19:28:00 Diastolic (mm Hg) 2021-02-08 [facility] 19:28:00 Heart Rate 2021-02-08 [facility] 19:28:00 Respitory Rate 2021-02-08 [facility] 19:28:00 Height 2021-02-08 162.56 cm [facility] 19:28:00 Weight 2021-02-08 [facility] 19:28:00 BMI Calculated 2021-02-08 [facility] 19:28:00 Systolic (mm Hg) 2021-01-18 [facility] 16[facility]07:00 Diastolic (mm Hg) 2021-01-18 [facility] 16:07:00 Heart Rate 2021-01-18 [facility] 16:07:00 Respitory Rate 2021-01-18 [facility] 16:07:00 Height 2021-01-18 162.56 cm Danielle [facility] 16:07:00 Weight 2021-01-18 [facility] 16:07:00 BMI Calculated 2021-01-18 [facility] 16:07:00 Systolic (mm Hg) 2020-12-08 [facility] 14:45:00 Diastolic (mm Hg) 2020-12-08 [facility] 14:45:00 Heart Rate 2020-12-08 [facility] 14:45:00 Respitory Rate 2020-12-08 [facility] 14:45:00 Height 2020-12-08 162.56 cm [facility] 14:45:00 Weight 2020-12-08 [facility] 14:45:00 BMI Calculated 2020-12-08 [facility] 14:45:00 Height 2019-04-02 167.64 cm Danielle Josephan n 14:35:00 Weight 2019-04-02 [facility] 14:35:00 BMI Calculated 2019-04-02 [facility] 14:35:00 Systolic (mm Hg) 2018-07-03 [facility] 15:46:00 Diastolic (mm Hg) 2018-07-03 [facility] 15:46:00 Heart Rate 2018-07-03 Danielle Josephan n 15:46:00 Height 2018-07-03 165.1 cm [facility] 15:46:00 Weight 2018-07-03 [facility] 15:46:00 BMI Calculated 2018-07-03 [facility] 15:46:00 Procedures Procedure Date / Time Performing Source Performed Clinician POCT GLUCOSE (AUTOMATED) 2022-12-03 Radha Palomares [facility] 16:32:00 [facility] POCT GLUCOSE (AUTOMATED) 2022-12-03 Radha Palomares [facility] 13:46:00 [facility] PHOSPHORUS 2022-12-[facility] [place] 09[facility] MAGNESIUM 2022-12-03 [facility] [place] 09:54:00 [facility] HEPATIC FUNCTION PANEL 2022-12-03 [id number] (ALB,T.PRO,BILI 09:54:00 Medical Branch T,BU/BC,ALT,AST,ALK PHOS) BASIC METABOLIC PANEL (NA, K, 2022-12-03 Nikko Rosario [facility] CL, CO2, GLUCOSE, BUN, 09:54:00 [facility] CREATININE, CA) CORTISOL PM SERUM 2022-12-03 [facility] 03:[facility] TROPONIN I [facility]22-[facility] 03[facility] CBC WITH DIFF 2022-12-03 [facility] 03:45:00 [facility] VITAMIN D, 25-OH 2022-12-03 [facility] 03:45:00 [facility] POCT GLUCOSE (AUTOMATED) 2022-12-[address] [facility] 01:20:00 Medical Branch LACTIC ACID WHOLE BLOOD 2022-12-02 [facility] 23:20:[address] ANGIOGRAM HEAD 2022-12-02 [facility] 21:19:00 [facility] CT ANGIOGRAM NECK 2022-12-02 [facility] HEAD WO [facility]AST [facility]22[facility]12-02 [facility] 21:06[facility]YSIS 2022-12-02 [facility] 19:33[facility] LIPASE 2022-12-02 [facility] 19:25:00 [facility] FERRITIN SERUM 2022-12-02 [facility] [place] 19:25:00 [facility] TROPONIN I 2022-12-02 [facility] 19:25:00 [facility] FREE T4 2022-12-02 Marielle [facility] [place] 19:25:00 [facility] THYROID STIMULATING HORMONE 2022-12-02 Marielle [facility] 19:25:00 Medical [facility] COMP. METABOLIC PANEL (77172) 2022-12-02 [facility] 19:25:00 [facility] IRON PANEL 2022-12-02 Nikko Rosario [facility] [place] 19:25:00 [facility] CBC WITH DIFF 2022-12-02 [facility] 19:25:00 [facility] PROTHROMBIN TIME / INR 2022-12-02 [facility] 19:25:00 [facility] ACTIVATED PARTIAL THRMPLAS 2022-12-02 [facility] 19:25:00 [facility] N-TERMINAL PRO-BNP 2022-12-02 [facility] 19:25:00 Medical [facility] FREE T3 2022-12-02 Radha Palomares [facility] [place] 19:25:00 [facility] HB ECG ROUTINE & RHYTHM STRIP 2022-12-02 [facility] 19:21:59 Medical Branch POCT GLUCOSE (AUTOMATED) 2022-12-02 Arleth Muñoz [facility] 18:59:00 Medical [facility] POCT GLUCOSE (AUTOMATED) 2022-11-[address] [facility] 16:07:00 Medical Branch POCT GLUCOSE (AUTOMATED) 2022-11-[address] [facility] 12:43:00 Medical Branch POCT GLUCOSE (AUTOMATED) 2022-11-[address] [facility] 00:53:00 Medical Branch POCT GLUCOSE (AUTOMATED) 2022-11-[address] [facility] 22:35:00 Medical Branch POCT GLUCOSE (AUTOMATED) 2022-11-[address] [facility] 16:57:00 Medical Branch MR BRAIN W WO CONTRAST 2022-11-04 Shannan Murray [facility] 15:59:12 Shelia [facility] POCT GLUCOSE (AUTOMATED) 2022-11-[address] [facility] 12:49:00 Medical Branch AMMONIA, PLASMA 2022-11-04 Ajay Campbell [facility] [place] 10:38:00 [facility] POCT GLUCOSE (AUTOMATED) 2022-11-[address] [facility] 01:02:00 Medical Branch POCT GLUCOSE (AUTOMATED) 2022-11-[address] [facility] 22:07:00 Medical Branch POCT GLUCOSE (AUTOMATED) 2022-11-[address] [facility] 17:07:00 Medical [facility] POCT GLUCOSE (AUTOMATED) 2022-11-[address] [facility] 13:18:00 Medical Branch POCT GLUCOSE (AUTOMATED) 2022-11-[address] [facility] 02:34:00 [facility] POCT GLUCOSE (AUTOMATED) 2022-11-[address] [facility] 23:02:00 [facility] POCT GLUCOSE (AUTOMATED) 2022-11-[address] [facility] 17:18:00 [facility] POCT GLUCOSE (AUTOMATED) 2022-11-[address] [facility] 15:10:00 [facility] URINE CULTURE 2022-11-02 [facility] 11:21:00 [facility] ELECTROENCEPHALOGRAM 2022-11-02 [facility] URINE DRUG (IMMUNOASSAY) - 2022-11-01 Misael Cheema [facility] COMPREHENSIVE DRUG SCREEN 20:21:[address] [facility] URINALYSIS 2022-11-01 Misael Cheema [facility] [place] 20:21:00 [facility] CT ANGIOGRAM HEAD 2022-11-01 Misael Cheema [facility] 20:00:00 [facility] CT ANGIOGRAM NECK 2022-11-01 Misael Cheema [facility] 20:00:00 [facility] CT CERVICAL SPINE WO CONTRAST 2022-11-01 Misael Cheema [facility] 19:59:[address] [place] [address] HEAD WO CONTRAST 2022-11-01 Misael Cheema [facility] 19:59:00 [facility] POCT GLUCOSE (AUTOMATED) 2022-11-01 Misael Cheema [facility] 19:24:00 [facility] [place] CREATINE KINASE 2022-11-01 Misael Cheema [facility] xa 19:21:00 Medical Branch TROPONIN I 2022-11-01 Misael Cheema [facility] 19:21:00 Medical Branch HEPATIC FUNCTION PANEL 2022-11-01 [id number] (ALB,T.PRO,BILI 19:21:00 Medical Branch T,BU/BC,ALT,AST,ALK PHOS) COMP. METABOLIC PANEL (54546) 2022-11-01 Misael Cheema [facility] 19:21:00 Medical Branch IRON PANEL 2022-11-01 [facility] 19:21:00 Medical Branch ETHANOL 2022-11-01 Misael Cheema [facility] 19:21:00 Medical Branch CBC WITH DIFF 2022-11-01 Misael Cheema [facility] 19:21:00 [facility] GLYCOSYLATED HEMOGLOBIN (A1C) 2022-11-01 Shannan Murray [facility] 19:21:00 [facility] HOSPITAL ADMISSION 2022-11-01 Doctor Unassigned, [facility] 05:01:00 [place] [facility] EKG-12 LEAD 2022-09-08 Marcial Vaughan [facility] ex 07:48:44 Medical Branch XR STROKE CHEST 1 VW 2022-09-08 Marcial Vaguhan [facility] 06:25:23 [facility] URINALYSIS 2022-09-08 Marcial Vaughan [facility] ex 06:21:[address] STROKE ANGIOGRAM HEAD 2022-09-08 Marcial Vaughan [facility] 06:11:[address] STROKE ANGIOGRAM NECK 2022-09-08 Marcial Vaughan [facility] 06:11:00 Medical Branch TROPONIN I 2022-09-08 Marcial Vaughan [facility] ex 05:45:00 Medical Branch BASIC METABOLIC PANEL (NA, K, 2022-09-08 Marcial Vaughan [facility] CL, CO2, GLUCOSE, BUN, 05:45:00 Medical B ranch CREATININE, CA) CBC WITHOUT DIFF 2022-09-08 Marcial Vaughan [facility] 05:45:00 [facility] PROTHROMBIN TIME / INR 2022-09-08 Marcial Vaughan [facility] 05:45:00 [facility] ACTIVATED PARTIAL THRMPLAS 2022-09-08 Alexus [facility] LISSETH 05:45:00 [facility] COVID-19 (ID NOW RAPID 2022-09-[address] [facility] TESTING) 05:45:00 [facility] POCT GLUCOSE (AUTOMATED) 2022-09-08 Germainemsjose [facility] 05:40:00 [facility] POWER OF ESTIMATOR PRINTING 2022-01-30 Doctor Unassigned, [facility] 05:01:00 [place] [facility] POCT GLUCOSE (AUTOMATED) 2022-01-16 [facility] 17:46:00 [facility] POCT GLUCOSE (AUTOMATED) 2022-01-16 [facility] 13:53:00 [facility] URINALYSIS 2022-01-16 Madhavi Bryan [facility] 09:18:00 [facility] URINE DRUG (IMMUNOASSAY) - 2022-01-16 Ofelia Mondragon [facility] COMPREHENSIVE DRUG SCREEN 09:17:00 Medica l Branch MAGNESIUM 2022-01-16 [facility] xas 09:14:00 [facility] VITAMIN B12, LEVEL 2022-01-16 Giancarlo [facility] [place] 09:14:00 [facility] BASIC METABOLIC PANEL (NA, K, 2022-01-16 [facility] CL, CO2, GLUCOSE, BUN, 09:14:00 [facility] ran CREATININE, CA) LIPID PANEL ([id number])(TOTAL 2022-01-16 Ofelia Mondragon [facility] CHOLESTEROL, TRIGLYCERIDES, 09:14:00 [facility] HDL) POCT GLUCOSE (AUTOMATED) 2022-01-16 [facility] 01:25:00 [facility] MR STROKE BRAIN WO CONTRAST 2022-01-16 Ofelia Mondragon [facility] 00:30:17 [facility] URINE CULTURE 2022-01-15 [facility] 21:41[facility] STROKE ANGIOGRAM HEAD 2022-01-15 Madhavi Bryan [facility] 17:16:[address] STROKE ANGIOGRAM NECK 2022-01-15 Madhavi Bryan [facility] 17:16:[address] STROKE PERFUSION W 2022-01-15 Madhavi Bryan [facility] CONTRAST 17:16:[address] STROKE HEAD WO CONTRAST 2022-01-15 Madhavi Bryan [facility] 17:02:00 Medical Branch MAGNESIUM 2022-01-15 [facility] 16:43:00 Medical Branch TROPONIN I 2022-01-15 Madhavi Bryan [facility] 16:43:00 Medical Branch THYROID STIMULATING HORMONE 2022-01-15 [facility] 16:43:00 Medical Branch HEPATIC FUNCTION PANEL 2022-01-15 [facility] ([id number]) (ALB,T.PRO,BILI 16:43:00 Medical Branch T,BU/BC,ALT,AST,ALK PHOS) BASIC METABOLIC PANEL (NA, K, 2022-01-15 Madhavi Bryan [facility] CL, CO2, GLUCOSE, BUN, 16:43:00 [facility] ranch CREATININE, CA) CBC WITHOUT DIFF 2022-01-15 Madhavi Bryan [facility] 16:43:00 [facility] GLYCOSYLATED HEMOGLOBIN (A1C) 2022-01-15 Ofelia Mondragon [facility] 16:43:00 Medical Branch PROTHROMBIN TIME / INR 2022-01-15 Madhavi Bryan [facility] 16:43:00 Medical Branch ACTIVATED PARTIAL THRMPLAS 2022-01-15 Madhavi Bryan [facility] LISSETH 16:43:00 Medical Branch COVID-19 (ID NOW RAPID 2022-01-15 Madhavi Bryan [facility] TESTING) 16:43:00 Medical Branch LAB ONLY COVID INTERPRETATION 2022-01-15 Madhavi Bryan [facility] 16:43:00 Medical Branch HB ECG ROUTINE & RHYTHM STRIP 2022-01-15 Madhavi Bryan [facility] 16:37:15 Medical Branch POCT GLUCOSE (AUTOMATED) 2022-01-15 Madhavi Bryan [facility] 16:37:00 Medical [place] HOSPITAL ADMISSION 2022-01-15 Doctor Unassigned, [facility] 05:01:00 [place] [facility] POWER OF ESTIMATOR PRINTING 2021-10-10 Doctor Unassigned, [facility] 05:01:00 [place] [facility] POCT GLUCOSE (AUTOMATED) 2021-09-23 [facility] 16:16:00 [facility] TRANSTHORACIC ECHO (TTE) 2021-09-23 [facility] COMPLETE W/ CONTRAST 15:51:47 Medical [facility] POCT GLUCOSE (AUTOMATED) 2021-09-23 [facility] 12:18:00 Medical [place] POCT GLUCOSE (AUTOMATED) 2021-09-23 [facility] 01:31:00 [facility] POCT GLUCOSE (AUTOMATED) 2021-09-22 [facility] 21:09:00 Medical [place] POCT GLUCOSE (AUTOMATED) 2021-09-22 Darian Glass [facility] 16:30:00 [facility] DUPLEX VENOUS LEGS BILATERAL 2021-09-22 [facility] - BY VASCULAR LAB 15:23:00 [facility] CT CHEST PULMONARY ANGIOGRAM 2021-09-22 Darian Glass [facility] 10:43:00 [facility] TROPONIN I 2021-09-22 Darian Glass [facility]as 10:09:00 [facility] COMP. METABOLIC PANEL ([id number]) 2021-09-22 Darian Glass [facility] 10:09:00 [facility] N-TERMINAL PRO-BNP 2021-09-22 Quan [facility] 10:09:00 [facility] HB ECG ROUTINE & RHYTHM STRIP 2021-09-22 Darian Glass [facility] 09:42:38 [facility] CBC WITH DIFF 2021-09-22 Darian Glass [facility] 09:34:00 [facility] PROTHROMBIN TIME / INR 2021-09-22 Darian Glass [facility] 09:34:00 Medical [place] ACTIVATED PARTIAL THRMPLAS 2021-09-22 Darian Glass [facility] LISSETH 09:34:00 Medical Branch XR CHEST 1 VW 2021-09-22 Darian Glass [facility] xa 09:26:09 Medical Branch NOTICE OF PRIVACY PRACTICES 2021-09-22 Doctor Unassigned, [facility] 08:51:55 [place] Medical Branch CONSENT/REFUSAL FOR DIAGNOSIS 2021-09-22 Doctor Unassigned, [facility] AND TREATMENT 08:49:29 [place] Medical Branch XR CHEST 1 VW 2021-04-29 Madhavi Bryan [facility] 16:12:54 Medical Branch XR FOOT 3+ VW LEFT 2021-04-29 Madhavi Bryan [facility] 16:12:[address] TRAUMA HEAD WO CONTRAST 2021-04-29 Madhavi Bryan [facility] 16:01:[address] TRAUMA CERVICAL SPINE WO 2021-04-29 Madhavi Bryan [facility] CONTRAST 16:01:35 Medical Branch NOTICE OF PRIVACY PRACTICES 2021-04-29 Doctor Unassigned, [facility] 15:17:27 [place] Medical Branch NOTICE OF PRIVACY PRACTICES 2021-04-29 Doctor Unassigned, [facility] 15:17:01 [place] Medical Branch CONSENT/REFUSAL FOR DIAGNOSIS 2021-04-29 Doctor Unassigned, [facility] AND TREATMENT 15:16:10 [place] Medical Branch PATIENT QUESTIONNAIRE 2021-02-14 Doctor Unasslita, [facility] 05:01:00 [place] Medical Branch POCT GLUCOSE (AUTOMATED) 2021-01-24 [facility] 16:23:00 Medical Branch POCT GLUCOSE (AUTOMATED) 2021-01-24 [facility] 12:34:00 Medical Branch URINALYSIS 2021-01-24 Abhishek Arevalo [facility] xa 12:21:00 Medical Branch CBC WITH DIFF 2021-01-24 Shantelle [facility] 08:13:00 [facility] GLYCOSYLATED HEMOGLOBIN (A1C) 2021-01-24 Shantelle [facility] 08:13:00 Medical Branch BASIC METABOLIC PANEL (NA, K, 2021-01-24 Alfa [facility] CL, CO2, GLUCOSE, BUN, 08:02:00 Medical B ranch CREATININE, CA) POCT GLUCOSE (AUTOMATED) 2021-01-24 [facility] 01:20:00 [facility] POCT GLUCOSE (AUTOMATED) 2021-01-23 [facility] 21:27:00 Medical Branch POCT GLUCOSE (AUTOMATED) 2021-01-23 [facility] 16:35:00 [facility] CAROTID DUPLEX BILATERAL - BY 2021-01-23 [facility] VASCULAR LAB 15:19:00 [facility] TRANSTHORACIC ECHO (TTE) 2021-01-23 Carmen Brennan [facility] COMPLETE 14:50:21 [facility] MR BRAIN WO CONTRAST 2021-01-23 Marielle [facility] 14:06:16 [facility] POCT GLUCOSE (AUTOMATED) 2021-01-23 [facility] 12:39:00 [facility] BASIC METABOLIC PANEL (NA, K, 2021-01-23 Carmen Brennan [facility] CL, CO2, GLUCOSE, BUN, 08:53:00 Medical [place] CREATININE, CA) CBC WITH DIFF 2021-01-23 Carmen Brennan [facility] 08:53:00 [facility] POCT GLUCOSE (AUTOMATED) 2021-01-23 [facility] 01:25:00 Medical [place] POCT GLUCOSE (AUTOMATED) 2021-01-22 [facility] 21:35:00 Medical Branch POCT GLUCOSE (AUTOMATED) 2021-01-22 [facility] 17:15:00 Medical Branch POCT GLUCOSE (AUTOMATED) 2021-01-22 [facility] 12:33:00 Medical Branch BASIC METABOLIC PANEL (NA, K, 2021-01-22 [facility] CL, CO2, GLUCOSE, BUN, 08:48:00 Medical B [place] CREATININE, CA) CBC WITH DIFF 2021-01-22 [facility] xas 08:48:00 Medical Branch POCT GLUCOSE (AUTOMATED) 2021-01-22 [facility] 01:06:00 Medical Branch POCT GLUCOSE (AUTOMATED) 2021-01-21 [facility] 22:01:00 Medical Branch XR CHEST 1 VW 2021-01-21 Carmen Brennan [facility] 21:22:59 Medical Branch POCT GLUCOSE (AUTOMATED) 2021-01-21 [facility] 20:54:00 Medical Branch POCT GLUCOSE (AUTOMATED) 2021-01-21 [facility] 20:48:00 Medical Branch POCT GLUCOSE (AUTOMATED) 2021-01-21 [facility] 16:35:[address] ANGIOGRAM HEAD 2021-01-21 [facility] 15:38:[address] ANGIOGRAM NECK 2021-01-21 [facility] 15:38:50 Medical Branch POCT GLUCOSE (AUTOMATED) 2021-01-21 [facility] 13:16:00 Medical Branch THYROID STIMULATING HORMONE 2021-01-21 [facility] 11:25:00 Medical Branch BASIC METABOLIC PANEL (NA, K, 2021-01-21 Carmen Brennan oanh [facility] CL, CO2, GLUCOSE, BUN, 11:25:00 Medical B [facility] CREATININE, CA) LACTIC ACID WHOLE BLOOD 2021-01-21 Sergey Chapin [facility] 08:56:[address] ABDOMEN PELVIS W CONTRAST 2021-01-21 Marcial Vaughan [facility] 00:43:39 Medical Branch XR CHEST 1 VW 2021-01-21 [facility] xas 00:03:[address] HEAD WO CONTRAST 2021-01-20 Singer Sergey [facility] 23:13:11 Medical Branch URINALYSIS 2021-01-20 [facility] 22:49:00 Medical Branch COVID-19 (ID NOW RAPID 2021-01-20 [facility] TESTING) 22:44:00 Medical Branch LAB ONLY COVID INTERPRETATION 2021-01-20 Seregy Chapin [facility] 22:44:00 Medical Branch TROPONIN I 2021-01-20 Singer [facility] xa 22:17:00 Medical Branch COMP. METABOLIC PANEL ([id number]) 2021-01-20 Sergey Chapin [facility] 22:17:00 Medical Branch CBC WITH DIFF 2021-01-20 Singer [facility] xa 22:17:00 Medical Branch LACTIC ACID WHOLE BLOOD 2021-01-20 Sergey Chapin [facility] 22:08:00 Medical Branch ED SPLINT APPLICATION 2020-02-14 Jayne Lipscomb [facility] 21:02:00 Medical Branch XR FOOT 3+ VW RIGHT 2020-02-14 Jayne Lipscomb [place] [facility] [place] 20:06:52 Medical Branch NOTICE OF PRIVACY PRACTICES 2020-02-14 Doctor Unassigned, [facility] 19:17:32 [place] Medical Branch CONSENT/REFUSAL FOR DIAGNOSIS 2020-02-14 Doctor Unassigned, [facility] AND TREATMENT 19:17:05 [place] Medical Branch COMP. METABOLIC PANEL (73006) 2019-09-20 Jayne Lipscomb [facility] 19:05:00 Medical Branch URINALYSIS 2019-09-20 Jayne Lipscomb [facility] 19:05:00 Medical Branch CBC WITH DIFFERENTIAL 2019-09-20 Jayne Lipscomb [facility] 19:05:00 Medical Branch CORONAVIRUS COVID-19 TESTING 2019-09-20 Jayne Lipscomb [facility] 19:05:00 Medical Branch XR CHEST 1 VW COVID 2019-09-20 Jayne Lipscomb [place] 18:27:24 Medical Branch POCT GLUCOSE (AUTOMATED) 2019-02-15 Tod Singh [facility] 12:32:00 Medical Branch URINALYSIS 2019-02-15 Darian Glass [facility] x[facility] 04:09:[address] CHEST PULMONARY ANGIOGRAM 2019-02-15 Casa Rivera [facility] 02:31:13 Medical Branch TROPONIN I 2019-02-15 Casa Rivera [facility] x[facility] 01:14:00 Medical Branch COMP. METABOLIC PANEL ([id number]) 2019-02-15 [facility] 01:14[facility] Medical Branch CBC WITH DIFFERENTIAL 2019-02-15 Casa Rivera [facility] 01:14:00 Medical Branch PROTHROMBIN TIME / INR 2019-02-15 Casa Rivera [facility] 01:14:00 Medical Branch ACTIVATED PARTIAL THRMPLAS 2019-02-15 Casa Rivera [facility] LISSETH 01:14:00 Medical Branch N-TERMINAL PRO-BNP 2019-02-15 Casa Rivera [facility] 01:14:00 Medical Branch EKG-12 LEAD 2019-02-15 Casa Rivera [facility] 00:52:44 Medical Branch CONSENT/REFUSAL FOR DIAGNOSIS 2019-02-15 Doctor Unassigned, [facility] AND TREATMENT 00:29:32 [place] Medical Branch NOTICE OF BILLING PRACTICES 2019-01-31 Doctor Unassigned, [facility] FOR MEDICARE PATIENTS 16:25:34 [place] Medical anch Stent placement [facility] Plan of Care Planned Activity Planned Date Details Comments Source Future Scheduled 2022-12-03 Screening for [facility] Test 20:48:00 malignant neoplasm of colon (procedure) [code = 015632131] Future Scheduled 2022-12-03 Screening for [facility] Test 20:48:00 malignant neoplasm of colon (procedure) [code = 951570272] Future Scheduled 2022-12-03 Screening for [facility] Test 20:48:00 malignant neoplasm of colon (procedure) [code = 086670839] Future Scheduled 2022-12-03 Hepatitis C screening [facility] Test 20:48:00 (procedure) [code = 129539089] Future Scheduled 2022-12-03 BREAST CANCER [facility] Test 20:48:00 SCREENING [code = BREAST CANCER SCREENING] Future Scheduled 2022-12-03 Screening for [facility] Test 20:48:00 malignant neoplasm of colon (procedure) [code = 759639698] Future Scheduled 2022-12-03 Screening for [facility] Test 20:48:00 malignant neoplasm of colon (procedure) [code = 284196520] Future Scheduled 2022-12-03 SHINGLES VACCINES (1 [facility] 20:48:00 of 2) [code = SHINGLES VACCINES (1 of 2)] Future Scheduled 2022-12-03 65+ [facility]OCOCCAL [facility] 20:48:00 VACCINE (2 - PPSV23 if available, else PCV20) [code = 65+ PNEUMOCOCCAL VACCINE (2 - PPSV23 if available, else PCV20)] Future Scheduled 2022-12-03 COVID-19 VACCINE (4 - [facility] Test 20:48:00 Moderna series) [code = COVID-19 VACCINE (4 - Moderna series)] Future Scheduled 2022-12-03 INFLUENZA VACCINE [facility] 20:48:00 [code = INFLUENZA VACCINE] Encounters Start End Encounter Admission Attending Care Care Encounter Source Date/Time Date/Time Type Type Clinicians Facility Department ID 2021-03-31 Emergency [facility] [id number] [facility]06 Inpatient [facility] JEANINE [id number] 14:29:00 [facility] 2022-12-05 2022-12-05 Transition MARGARETTE Vance [id number] Univers 00:00:00 00:00:00 of Care Nurys GONZALEZ 350.1.13.10 it [facility] 4.2.7.2.686 [facility] [id number] [facility] 403 Branch 2022-12-02 2022-12-03 Outpatient X MARIELLE [facility] ALTA [id number] Univers 13:56:00 15:40:00 RADHA corona [facility] 2022-12-02 2022-12-03 Emergency Arleth Muñoz [facility] 1.2. 840.114 [id number] Univers 13:56:00 15:40:00 Radha [facility]13.10 [facility] 4.2.7.2.686 [facility] [id number] [facility] 080 Branch 2022-11-20 2022-11-20 Outpatient SANTOSH CURTIS [facility] [id number] Univers 10:00:00 10:00:00 SANTOSH GARZA [facility] 2022-11-06 2022-11-06 Transition MARGARETTE Vance [id number] Univers 00:00:00 00:00:00 of Care Nurys LEZAMAY 350.1.13.10 it y of [place] 4.2.7.2.686 [facility] [id number] [facility] 403 Branch 2022-11-01 2022-11-05 Inpatient U ADAM [facility] CELINA [id number] Univers 13:57:00 17:48:00 [facility] ity o f [facility] 2022-11-01 2022-11-05 [facility] Misael Cheema 1.2.840.11 [id number] Univers 13:57:00 17:48:00 Encounter Matt Edwards 350.1.13.10 ity of [facility] 4.2.7.2.686 [place] [id number] [facility] 098 Branch 2022-10-08 2022-10-08 Care Christin King 2.16.840. 2.16.840.1. [id number] [facility] 14:30:00 15:00:00 [employer] 1.289673. 876214.4.6. R8G [facility] 4.6.53461 [id number] 2022-10-06 2022-10-06 Outpatient hpham29 [facility] [id number] [facility] 00:00:00 00:00:00 0506 Medica l Group 2022-09-11 2022-09-11 Care Andreia Buckley 2.16.840. 2.16.840.1. C [id number] [facility] 13:30:00 14:00:00 [employer] 1.491390. 755545.4.6. W9 Medical 4.6.57160 [id number] 2022-09-08 2022-09-08 Emergency X [facility] [id number] Univers 00:46:00 05:02:00 MARCIAL corona of [facility] 2022-09-08 2022-09-08 Emergency [facility] [id number] [id number] Univers 00:46:00 05:02:00 Marcial HASSAN 350.1.13.10 [facility] 4.2.7.2.686 [facility] [id number] [facility] corby 084 Branch 2022-09-07 2022-09-07 Outpatient [facility] [id number] [place] 15:55:13 15:55:13 [id number] F Harish 2022-08-29 2022-08-29 IHC Larisa 2.16.840. 2.16.840.1. CLAC [id number] [facility] 17:30:00 18:00:00 Graduation [facility] 1.430838. 487385.4.6. F5F Medical 4.6.74822 [id number] 2022-07-05 2022-07-05 Ambulatory MHIE MNA [id number] Memoria 16:30:00 16:30:00 Pre-Reg Neurology 19 l [place] 2022-07-05 2022-07-05 Ambulatory MHIE MNA [id number] Memoria 16:30:00 16:30:00 Pre-Reg Neurology 19 l [place] 2022-07-05 2022-07-05 Outpatient MHIE MHIE [id number] Memoria 10:30:00 10:30:00 19 l Yong 2022-07-05 2022-07-05 [id number] 10:30:00 10:30:00 Piotrjannet Baker 2022-06-11 2022-06-11 IHC Follow Larisa 2.16.840. 2.16.840.1. C [id number] [facility] 15:30:00 16:30:00 Up [facility] 1.869035. 702573.4.6. G8J Medical 4.6.96896 [id number] 2022-05-18 2022-05-18 CAV Nimesh Parra 2.16.840. 2.16.840.1. CLA [id number] [facility] 20:00:00 21:00:00 1.559462. 929515.4.6. 2J8 Medical 4.6.10472 [id number] 2022-04-20 2022-04-20 IHC Follow Nimesh Parra 2.16.840. 2.16.840.1. [id number] [facility] 19:30:00 20:00:00 Up 1.828132. 612225.4.6. EZ2 Medical 4.6.54624 [id number] 2022-04-03 2022-04-03 IHC Follow Nimesh Parra 2.16.840. 2.16.840.1. [id number] [facility] 18:30:00 19:00:00 Up 1.768496. 786021.4.6. 487 Medical 4.6.86776 [id number] 2022-03-26 2022-03-26 Outpatient R GONSALO [facility] [id number] Univers 10:30:00 10:30:00 VERNA corona [facility] 2022-03-13 2022-03-14 Outpatient nullFlavo MNA [id number] Memoria 18:15:00 04:59:59 r Neurology 18 l [place] 2022-03-13 2022-03-14 Outpatient nullFlavo MNA [id number] Memoria 18:15:00 04:59:59 r Neurology 18 l [place] 2022-03-13 2022-03-13 [facility] [id number] 13:15:00 23:59:59 Piotr Jamar Baker 2022-03-13 2022-03-13 Outpatient MHIE IE [id number] Memoria 13:15:00 13:15:00 18 l Yong 2022-03-08 2022-03-08 IHC Follow Nimesh Parra 2.16.840. 2.16.840.1. [id number] [facility] 14:30:00 15:30:00 Up 1.013595. 322087.4.6. RAG Medical 4.6.80066 [id number] 2022-01-30 2022-01-30 Telephone SARA Tavares 1.2.840.114 [id number] Univers 00:00:00 00:00:00 Coretta SIMPSON 350.1.13.10 i ty [facility] 4.2.7.2.686 [place] [id number] [address] 2022-01-30 2022-01-30 Orders Doctor SARA 1.2.840.114 [id number] Univers 00:00:00 00:00:00 Only Unassigned CALVIN 350.1.13.10 ity of [place] [facility] 42.7.2.686 [place] as [id number] [address] 2022-01-25 2022-01-25 Telephone SARA Tavares 1.2.840.114 [id number] [facility] 00:00:00 00:00:00 Coretta Serrano CALVIN 350.1.13.10 i ty of [place] [address].7.2.686 [place] as [id number] [address] 2022-01-22 2022-01-23 Outpatient nullFlavo M[facility] [id number] 04:59:59 r Neurology 17 l [place] 2022-01-22 2022-01-23 Outpatient nullFlavo MNA [id number] [facility] 18:00:00 04:59:59 r Neurology 17 l [place] 2022-01-22 2022-01-22 Outpatient Joselo MHMISCHER MHMISCHER [id number] 13:00:00 23:59:59 Piotr 17 [place] 2022-01-22 2022-01-22 Outpatient MHIE MHIE [id number] [facility] 13:00:00 13:00:00 17 l Yong 2022-01-22 2022-01-22 Telephone SARA Tavraes 1.2.840.114 [id number] Univers 00:00:00 00:00:00 Coretta Serrano CALVIN 350.1.13.10 i ty of [place] [address].7.2.686 [place] as [id number] [address] 2022-01-22 2022-01-22 Telephone SARA Tavares 1.2.840.114 [id number] Univers 00:00:00 00:00:00 Coretta Serrano CALVIN 350.1.13.10 i ty of [address]686 [place] [id number] [address] 2022-01-17 2022-01-17 Transition MARGARETTE Vance 1[place]ina2.840.114 [id number] Univers 00:00:00 00:00:00 of Care Nurys GONZALEZ 350.1.13.10 it y of [place].2.[place] [phone] [facility] [address] 2022-01-15 2022-01-16 Outpatient U SETH [facility] CELINA [id number] Univers 11:32:00 17:45:00 SAMUEL ity of [facility] 2022-01-15 2022-01-16 Emergency IrvinMelindara Gunn BRI 1.2.8 40.114 [id number] Univers 11:32:00 17:45:00 Samuel Ann 350.1.13.10 ity [facility] 4.2.7.2.686 [place] as [phone] [facility] [address] [place] 2022-01-11 2022-01-11 IHC Follow Nimesh Parra 2.16.840. 2.16.840.1. [id number] Devoted 16:00:00 17:00:00 Up 1.370995. 101059.4.6. G9U [facility] 4.6.26174 [id number] 2022-01-03 2022-01-05 Outside nullFlavo MNA [id number] Memoria 14:11:30 04:59:59 Medical r Neurology 04 l Records Jarocho Josephann 2022-01-03 2022-01-05 Outside nullFlavo MNA [id number] Memoria 14:11:30 04:59:59 Medical r Neurology 04 l Records Jarocho Josephann 2022-01-03 2022-01-04 Outpatient MHMISCHER MHMISCHER 201 [id number] 09:11:30 23:59:59 04 2021-12-15 2021-12-15 Outpatient hpham29 [facility] [id number] Devoted 03:39:00 03:39:00 0715 Medica l Group 2021-12-15 2021-12-15 Outpatient hpham29 DM RODY [id number] Devoted 00:00:00 00:00:00 0404 Medica l Group 2021-12-01 2021-12-01 Outpatient hpham29 [facility] [id number] 022 Devoted 10:00:00 10:00:00 0701 Medica l Group 2021-11-22 2021-11-22 Outpatient hpham29 [facility] [id number] 022 Devoted 01:41:00 01:41:00 0622 Medica l Group 2021-11-07 2021-11-07 IHC Follow Nimesh Parra 2.16.840. 2.16.840.1. [id number] Devoted 20:00:00 20:30:00 Up 1.037779. 967480.4.6. 5K7 [facility] 4.6.65312 [id number] 2021-10-10 2021-10-10 Orders Doctor SARA 1.2.840.114 [id number] Univers 00:00:00 00:00:00 Only Unassigned, CALVIN 350.1.13.10 ity of [place] [facility] 4.2.7.2.686 [place] as [phone] [facility] [address] 2021-09-25 2021-09-25 Transition VanceMARGARETTE 1.2.840.114 [id number] Univers 00:00:00 00:00:00 of Care Nurys GONZALEZ 350.1.13.10 it y of [place]2.[place] [id number] [facility] [address] 2021-09-22 2021-09-23 Outpatient X FAN PRINCE [facility] [id number] Univers 04:01:00 15:37:00 FAN PRINCE ity of [facility] 2021-09-22 2021-09-23 Emergency Darian Glass [facility] 1.2.840. 114 [id number] Univers 04:01:00 15:37:00 Fan Prince [facility] 350.1.13.10 ity of [facility] 4.2.7.2.686 [place] [phone] [address] ([facility]) 2021-09-19 2021-09-19 IHC Follow Nimesh Parra 2.16.840. 2.16.840.1. [id number] Devoted 18:00:00 19:00:00 Up 1.865864. 599088.4.6. [facility] 4.6.00672 [id number] 2021-09-05 2021-09-05 Ambulatory nullFlavo MNA [id number] Memoria 14:30:00 14:30:00 Pre-Reg r Neurology 16 l Jarocho Yong 2021-09-05 2021-09-05 Ambulatory nullFlavo MNA [id number] Memoria 14:30:00 14:30:00 Pre-Reg r Neurology 16 l Ramsey Yong 2021-09-05 2021-09-05 Outpatient MHIE MHIE [id number] Memoria 09:30:00 09:30:00 16 l Yong 2021-09-05 2021-09-05 Outpatient KATIE Josue MISCHER [id number] 09:30:00 09:30:00 Piotr Peng Samuel 2021-08-14 2021-08-14 Outpatient [facility] [id number] [place] [address] 00:00:00 00:00:00 MOHAMMED 696 Metho martin 2021-08-11 2021-08-11 Outpatient R [facility] [id number] [facility] 12:00:00 12:00:00 [facility] 2021-07-17 2021-07-17 IHC Follow Nimesh [facility] 2.16.840. 2.16.840.1. [id number] Devoted 15:30:00 16:30:00 Up 1.901132. 071301.4.6. 8S7 Medical 4.6.33464 [id number] 2021-06-23 2021-06-23 Outpatient R SOSA [facility] [id number] Univers 11:30:00 11:30:00 STEPHANIE [facility] 2021-06-07 2021-06-08 Outpatient nullFlavo MNA [id number] Memoria 16:15:00 05:59:59 r Neurology 15 l [place] 2021-06-07 2021-06-08 Outpatient nullFlavo MNA [id number] Memoria 16:15:00 05:59:59 r Neurology 15 l [place] 2021-06-072021-06-07 Outpatient SHYLA [facility]ER [facility] [id number] 10:15:00 23:59:59 Piotr Michael Baker 2021-06-07 2021-06-07 Outpatient MHIE MHIE [id number] [facility] 10:15:00 10:15:00 15 [place] 2021-05-05 2021-05-05 IHC Follow Nimeshfrancoise Wrightm 2.16.840. 2.16.840.1. [id number] Devoted 15:00:00 15:30:00 1.647200. 957286.4.6. 8J9 [facility] 4.6.48929 [id number] 2021-04-29 2021-04-29 Emergency [facility] [id number] Univers 09:31:00 10:59:00 MADHAVI corona of [facility] 2021-04-29 2021-04-29 Emergency [facility] 1.2.840.114 [id number] Univers 09:31:00 10:59:00 Madhavi HASSAN 350.1.13.10 ity of [place] 4.2.7.2.686 [place] [facility] [phone] [facility] [address] [place] 2021-04-29 2021-04-29 Outpatient R BILL [facility] [id number] Univers 10:00:00 10:00:00 CHAVO corona o f [facility] 2021-04-29 2021-04-29 [facility]phone [facility] 1.2.840.114 [id number] Univers 00:00:00 00:00:00 [facility] 350.1.13.10 i ty of [place] 4.2.7.2.686 [place] as ANA LAURA?BLEA [phone] Wi chai [address] MEDICAL OFFICE BUILDING 2021-04-29 2021-04-29 Orders Doctor SARA 1.2.840.114 [id number] Univers 00:00:00 00:00:00 Only Unassigned, CALVIN 350.1.13.10 ity of [place] [facility] 4.2.7.2.686 [place] as [phone] [facility] [address] 2021-04-20 2021-04-20 Ambulatory nullFlavo MNA [id number] [facility] 19:45:00 19:45:00 Pre-Reg r Neurology 14 l [place] 2021-04-20 2021-04-20 Ambulatory nullFlavo MNA [id number] [facility] 19:45:00 19:45:00 Pre-Reg r Neurology 14 l [place] 2021-04-20 2021-04-20 Outpatient [facility] [id number] [facility] 13:45:00 13:45:00 14 [place] 2021-04-20 2021-04-20 [facility] [id number] 13:45:00 13:45:00 Piotr Conchis Samuel 2021-04-12 2021-04-12 IHC Follow Nimesh Parra 2.16.840. 2.16.840.1. [id number] Devoted 22:00:00 22:30:00 Up 1.142742. 388574.4.6. 7CJ Medical 4.6.89594 [id number] 77455 2021-04-07 2021-04-07 IHC Follow Nimesh Parra 2.16.840. 2.16.840.1. [id number] Devoted 20:30:00 21:15:00 Up 1.365227. 269932.4.6. 6JC Medical 4.6.70028 [id number] 98499 2021-03-08 2021-03-08 IHC Follow Nimesh Parra 2.16.840. 2.16.840.1. [id number] Devoted 14:30:00 15:15:00 Up 1.951041. 718602.4.6. Y74 Medical 4.6.21849 [id number] 2021-02-14 2021-02-14 Orders Doctor SARA 1.2.840.114 [id number] Univers 00:00:00 00:00:00 Only Unassigned, CALVIN 350.1.13.10 ity of [place] [facility] 4.2.7.2.686 [place] as [phone] [facility] [address] 2021-02-08 2021-02-09 Outpatient nullFlavo MNA [id number] Memoria 19:30:00 04:59:59 r Neurology 13 l [place] 2021-02-08 2021-02-09 Outpatient nullFlavo MNA [id number] Memoria 19:30:00 04:59:59 r Neurology 13 l [place] 2021-02-08 2021-02-08 Outpatient KATIE [facility] [id number] 14:30:00 23:59:59 Piotr 13 Samuel 2021-02-08 2021-02-08 Outpatient MHIE MHIE [id number] Memoria 14:30:00 14:30:00 13 l Yong 2021-01-25 2021-01-25 Transition Margarette Mccann 1.2.840.114 [id number] Univers 00:00:00 00:00:00 of Care Rebeca Gonzalez 350.1.13.10 i ty of [place] 4.2.7.2.686 [facility] [phone] [facility] [address] 2021-01-20 2021-01-24 Emergency Sergey Chapin [facility] 1.2.840. 114 [id number] Univers 16:45:00 13:03:00 Marcial Vaughan 350.1.13.10 ity Tod Singh 4.2.7.2.686 [facility] [id number] [facility] 081 [address] 2021-01-20 2021-01-24 Outpatient X FRANCISCO [facility] [id number] Univers 16:45:00 13:03:00 [facility] ity [facility] 2021-01-18 2021-01-19 Outpatient nullFlavo MNA [id number] Memoria 16:30:00 04:59:59 r Neurology 12 l Jarocho Josephann 2021-01-18 2021-01-19 Outpatient nullFlavo MNA [id number] Memoria 16:30:00 04:59:59 r Neurology 12 l Jarocho Josephann 2021-01-18 2021-01-18 Outpatient KATIE Josue [facility] [id number] 11:30:00 23:59:59 Piotr 12 Samuel 2021-01-18 2021-01-18 Outpatient MHIE IE [id number] Memoria 11:30:00 11:30:00 12 [place] 2020-12-08 2020-12-09 Outpatient nullFlavo MNA [id number] Memoria 14:30:00 04:59:59 r Neurology 11 l [place] 2020-12-08 2020-12-09 Outpatient nullFlavo MNA [id number] Memoria 14:30:00 04:59:59 r Neurology 11 l [place] 2020-12-08 2020-12-08 Outpatient Jos[facility] 052 [id number] 09:30:00 23:59:59 Poitr 11 Samuel 2020-12-08 2020-12-08 Outpatient MHIE MHIE [id number] Memoria 09:30:00 09:30:00 11 [place] 2020-12-02 2020-12-05 Outpatient SAVANAH [place]COSTA [place] [id number] [place] [address] 00:00:00 00:00:[address] 2020-12-01 2020-12-03 Outside nullFlavo MNA [id number] Memoria 22:29:17 04:59:59 Medical r Neurology 03 l Records Jarocho Josephann 2020-12-01 2020-12-03 Outside nullFlavo MNA [id number] Memoria 22:29:17 04:59:59 Medical r Neurology 03 l Records Jarocho Josephann 2020-12-01 2020-12-02 [id number] 17:29:17 23:59:59 03 2020-10-05 2020-10-05 Ambulatory nullFlavo MNA [id number] Memoria 15:15:00 15:15:00 Pre-Reg r Neurology 10 l Ramsey Yong 2020-10-05 2020-10-05 Ambulatory nullFlavo MNA [id number] Memoria 15:15:00 15:15:00 Pre-Reg r Neurology 10 l Ramsey Yong 2020-10-05 2020-10-05 Outpatient MHIE IE [id number] Memoria 10:15:00 10:15:00 10 edilberto Yong 2020-10-05 2020-10-05 Outpatient Joselo [facility] [id number] 10:15:00 10:15:00 Piotr Baker 2020-09-21 2020-09-21 Outpatient hpham29 DMG [facility] [id number] Devoted 04:19:00 04:19:00 0421 Medica l Group 2020-09-20 2020-09-20 Outpatient hpham29 RODY RODY [id number] Devoted 11:40:00 11:40:00 0420 Medica l Group 2020-09-12 2020-09-12 Outpatient hpham29 [facility] [id number] Devoted 12:31:00 12:31:00 0412 Medica l Group 2020-09-08 2020-09-08 Outpatient JAVIER[facility]T [facility] [id number] Devoted 09:01:00 09:01:00 0408 Medica l Group 2020-09-08 2020-09-08 Outpatient KAREN Ramirez [facility] [id number] 00:00:00 00:00:00 Maribell [id number] Grupo [id number] 2020-09-08 2020-09-08 Maribell FINE MA - [id number] D evoted 00:00:00 00:00:00 Grupo Ramirez, CLIMATE CHANGE ANALYST: [facility] [id number] [facility] [address], [place] [address] , Ph. 2020-09-07 2020-09-07 Outpatient WESTON[facility]T [facility] [id number] Devoted 06:03:00 06:03:00 0407 Medica l Group 2020-08-08 2020-08-08 Patient ANTWON Ríos 1.2.840.114 [id number] 00:00:00 00:00:00 Outreach Prudencio PRIMARY 350.1.13.10 [facility] 4.2.7.2.686 KEITH [id number] 388 2020-08-08 2020-08-08 Patient ANTWON Ríos 1.2.840.114 [id number] Univers 00:00:00 00:00:00 Outreach Prudencio PRIMARY 350.1.13.10 i ty formerly [facility] 4.2.7.2.686 Elaine SANCHEZASHLEEPRADIP [phone] [address] 2020-06-14 2020-06-15 Outpatient nullFlavo MNA [id number] Memoria 19:15:00 05:59:59 r Neurology 09 l Jarocho Josephann 2020-06-14 2020-06-15 Outpatient nullFlavo MNA [id number] Memoria 19:15:00 05:59:59 r Neurology 09 l Jarocho Yong 2020-06-14 2020-06-14 Outpatient Joselo, MHMISCHER MHMISCHER [id number] 13:15:00 23:59:59 Piort Desire Baker 2020-06-14 2020-06-14 Outpatient MHIE MHIE [id number] Memoria 13:15:00 13:15:00 09 edilberto Yong 2020-06-12 2020-06-12 [facility] [id number] [facility] 10:40:00 10:40:00 [facility] 2020-06-08 2020-06-08 Ambulatory nullFlavo MNA [id number] Memoria 15:15:00 15:15:00 Pre-Reg r Neurology 08 l Jarocho Yong 2020-06-08 2020-06-08 Ambulatory nullFlavo MNA [id number] Memoria 15:15:00 15:15:00 Pre-Reg r Neurology 08 l [place] 2020-06-08 2020-06-08 Outpatient MHIE MHIE [id number] Memoria 09:15:00 09:15:00 08 [place] 2020-06-08 2020-06-08 Outpatient Joselo MISCHER MHMISCHER [id number] 09:15:00 09:15:00 Piotr Mila Baker 2020-02-17 2020-02-17 Patient Margarette Jimenez 1.2.840.114 [id number] 00:00:00 00:00:00 Outreach Kelsey Gonzalez 350.1.13.10 [place] 4.2.7.2.686 [id number] [facility] 2020-02-17 2020-02-17 Patient Margarette Jimenez 1.2.840.114 [id number] Univers 00:00:00 00:00:00 Outreach Kelsey Gonzalez 350.1.13.10 ity of [place] 4.2.7.2.686 [facility] [phone] [facility] [address] 2020-02-14 2020-02-14 Outpatient Maggie REED [facility] [id number] Univers 19:40:00 19:40:00 CLIFFORD ity of [facility] 2020-02-14 2020-02-[address] [facility] 1.2.422.214 [id number] 14:26:00 16:05:00 Jayne Hassan 350.1.13.10 [place] 4.2.7.2.686 [place] [id number] [facility] 2020-02-14 2020-02-[address] [facility] 1.2.332.787 [id number] Univers 14:26:00 16:05:00 Jayne Hassan 350.1.13.10 i ty of [place] 4[place]2.7.2.686 [place] [phone] [place] [id number] [place] 2020-02-14 2020-02-14 Orders Doctor SARA 1.2.840.114 [id number] 00:00:00 00:00:00 Only Unassigned, CALVIN 350.1.13.10 [place] [facility] 4.2.7.2.686 [id number] 009 2020-02-14 2020-02-14 Orders Doctor SARA 1.2.840.114 [id number] Univers 00:00:00 00:00:00 Only Unassigned, CALVIN 350.1.13.10 ity of [place] [facility] 4.2.7.2.686 [place] as [phone] [address] 2019-12-10 2019-12-10 Ambulatory nullFlavo MNA [id number] Memoria 20:15:00 20:15:00 Pre-Reg r Neurology 07 l Jarocho [place] 2019-12-10 2019-12-10 Ambulatory nullFlavo MNA [id number] Memoria 20:15:00 20:15:00 Pre-Reg r Neurology 07 l Jarocho [place] 2019-12-10 2019-12-10 Outpatient SHYLA JosueMISCHER MISCHER [id number] 15:15:00 15:15:00 Piotr 07 Samuel 2019-12-10 2019-12-10 Ambulatory nullFlavo MNA [id number] Memoria 14:00:00 14:00:00 Pre-Reg r Neurology 06 l [place] 2019-12-10 2019-12-10 Ambulatory nullFlavo MNA [id number] Memoria 14:00:00 14:00:00 Pre-Reg r Neurology 06 l Jarocho Josephann 2019-12-10 2019-12-10 Outpatient MHIE MHIE [id number] Memoria 09:00:00 09:00:00 06 l Yong 2019-12-10 2019-12-10 Outpatient MHIE MHIE [id number] Memoria 09:00:00 09:00:00 07 l Yong 2019-12-10 2019-12-10 Outpatient Joselo MHMISCHER MHMISCHER [id number] 09:00:00 09:00:00 Piotr Pino [facility] 2019-09-20 2019-09-[address] [facility] 1.2.886.143 [id number] 12:46:41 16:25:00 Jayne Hassan 350.1.13.10 [place] [address] [place] [address] [id number] [facility] 2019-09-20 2019-09-[address] [facility] 1.2.438.453 [id number] Univers 12:46:41 16:25:00 Jayne Hassan 350.1.13.10 i ty of [place] 4.2.7.2.[address] [place] [id number] 2019-09-20 2019-09-20 Emergency X [facility] ERT [id number] Univers 12:46:41 16:25:00 [facility] 2019-09-20 2019-09-20 Outpatient R MARKELL [facility] [id number] Univers 13:00:00 13:00:00 GABINO corona [facility] 2019-09-18 2019-09-18 Outpatient R VICENTE [facility] [id number] Univers 19:00:00 19:00:00 ZANDER corona [facility] 2019-08-07 2019-08-07 Outpatient 3 [facility] [place] [facility] JEANINE [id number] 13:10:00 13:10:00 [facility] [place] -[id number] [facility] 2019-04-02 2019-04-03 Outpatient nullFlavo MNA [id number] Memoria 14:30:00 04:59:59 r Neurology 05 l Jarocho Josephann 2019-04-02 2019-04-03 Outpatient nullFlavo MNA [id number] Memoria 14:30:00 04:59:59 r Neurology 05 l Ramsey Yong 2019-04-02 2019-04-02 Outpatient Joselo MISCHER MHMISCHER [id number] 09:30:00 23:59:59 Piotr 05 Samuel 2019-04-02 2019-04-02 Outpatient MHIE MHIE [id number] Memoria 09:30:00 09:30:00 05 edilberto Yong 2019-03-03 2019-03-03 Outpatient Maggie CODY III, [facility] [id number] Univers 15:40:00 16:31:06 NOE chloe [facility] 2019-03-02 2019-03-02 Outpatient R GLO III, [facility] [id number] Univers 16:00:00 16:00:00 NOE hanna [facility] 2019-02-21 2019-02-21 Outpatient Maggie CARTER [facility] [id number] Univers 11:50:00 23:59:00 GREGORY chloe [facility] 2019-02-17 2019-02-17 Transition Margarette Gomez 1.2.840.114 [id number] 00:00:00 00:00:00 of Care Ivett Gonzalez 350.1.13.10 [place] 4.2.7.2.686 [id number] 2019-02-17 2019-02-17 Transition Margarette Gomez 1.2.840.114 [id number] Univers 00:00:00 00:00:00 of Care Ivett Gonzalez 350.1.13.10 it y of [place].2.[place] [id number] [address] 2019-02-14 2019-02-15 [facility] Casa Rivera [facility] 1.2.840.1 [id number] 19:37:01 10:35:00 Encounter Tod Singh 350.1.13.10 [place] 4.2.7.2.686 [place] [id number] [facility] 2019-02-14 2019-02-15 [facility] Casa Rviera [facility] 1.2.840.1 [id number] [facility] 19:37:01 10:35:00 Encounter Tod Singh 350.1.13.10 ity of [place] 4.2.7.2.686 [facility] [id number] [address] 2019-02-14 2019-02-14 Nurse Nurse, Karel [facility] 1.2.840.114 [id number] 19:13:52 19:30:10 Visit Urgent Care Health 350.1.13.10 Surgical 4.2.7.2.686 Specialti [phone] [address] 2019-02-14 2019-02-14 Nurse Nurse, [facility] 1.2 .840.114 [id number] [facility] 19:13:52 19:30:10 Visit Unknown, Attending [facility] 350.1.13.10 ity of Surgical 4.2.7.2.686 [place] as Specialti [id number] Wi dic[address] 2019-01-31 2019-01-31 Urgent Dc [facility] 1.2.840.114 [id number] 11:25:08 11:40:08 Care [facility] 350.1.13.10 Surgical 4.2.7.2.686 Specialti [id number] [address] 2019-01-31 2019-01-31 Urgent Sara Irwin [facility] 1.2.840.114 [id number] [facility] 11:25:08 11:40:08 Care Unknown, Attending Health 350.1.13.10 ity of Surgical 4.2.7.2.686 [place] as Specialti [id number] Wi dic[address] 2019-01-31 2019-01-31 Orders Doctor SARA 1.2.840.114 [id number] 00:00:00 00:00:00 Only Unassigned, CALVIN 350.1.13.10 [place] [facility] 42.7.2.686 [id number] 2019-01-31 2019-01-31 Orders Doctor SARA 1.2.840.114 [id number] Univers 00:00:00 00:00:00 Only Unassigned, CALVIN 350.1.13.10 ity of [place] [facility] 4.2.7.2.686 [place] as [id number] [address] 2018-07-03 2018-07-04 Outpatient nullFlavo MNA [id number] Memoria 14:45:00 05:59:59 r Neurology 04 l [place] 2018-07-03 2018-07-04 Outpatient nullFlavo MNA [id number] Memoria 14:45:00 05:59:59 r Neurology 04 edilberto Avendaño Yong 2018-07-03 2018-07-03 Outpatient JERSEY JosueSCHLYNDA MISCHER [id number] 08:45:00 23:59:59 Piotr Sam Samuel 2018-07-03 2018-07-03 Ambulatory nullFlavo MNA [id number] Memoria 14:45:00 14:45:00 Pre-Reg r Neurology 03 edilberto Avendaño Yong 2018-07-03 2018-07-03 Ambulatory nullFlavo MNA [id number] Memoria 14:45:00 14:45:00 Pre-Reg r Neurology 03 edilberto Avendaño [place] 2018-07-03 2018-07-03 Outpatient MHIE MHIE [id number] Memoria 08:45:00 08:45:00 Sam edilberto [place] 2018-07-03 2018-07-03 Outpatient JERSEY JosueSCHLYNDA MISCHER [id number] 08:45:00 08:45:00 Piotr Adarsh Samuel 2018-05-30 2018-05-30 Ambulatory nullFlavo MNA [id number] Memoria 21:45:00 21:45:00 Pre-Reg r Neurology 02 edilberto Josephann 2018-05-30 2018-05-30 Ambulatory nullFlavo MNA [id number] Memoria 21:45:00 21:45:00 Pre-Reg r Neurology 02 edilberto Ramsey [place] 2018-05-30 2018-05-30 Outpatient [facility] [id number] 15:45:00 15:45:00 Piotr Radha Baker 2018-05-22 2018-05-24 Phone nullFlavo MNA [id number] Memoria 21:49:00 05:59:59 Message r Neurology 01 [place]il[place] 2018-05-22 2018-05-24 Phone nullFlavo MNA [id number] Memoria 21:49:00 05:59:59 Message r Neurology 01 [place] 2018-05-22 2018-05-23 [id number] 15:49:00 23:59:59 2018-05-22 2018-05-22 Ambulatory nullFlavo MNA [id number] Memoria 20:45:00 20:45:00 Pre-Reg r Neurology 01 [place]il[place] 2018-05-22 2018-05-22 Ambulatory nullFlavo MNA [id number] Memoria 20:45:00 20:45:00 Pre-Reg r Neurology 01 [place] 2018-05-22 2018-05-22 Outpatient Joselo [facility] [id number] 14:45:00 14:45:00 Piotr Jd Baker 2018-05-13 2018-05-13 Ambulatory nullFlavo MNA [id number] Memoria 21:30:00 21:30:00 Pre-Reg r Neurology 00 [place] 2018-05-13 2018-05-13 Ambulatory nullFlavo MNA [id number] Memoria 21:30:00 21:30:00 Pre-Reg r Neurology 00 [place] 2018-05-13 2018-05-13 Outpatient Joselo [facility] [id number] 15:30:00 15:30:00 Piotr Alvin Samuel Results Test Description Test Time Test Comments Results Result Comments Source POCT GLUCOSE (AUTOMATED) 2022-12-03 16:34:03 Test Item Value Reference Range Interpretation Comme nts POCT GLU (test code = 6582754620) 160 mg/dL 70-110 H Lab Interpretation (test code = 01968-5) Abnormal [facility] GLUCOSE (AUTOMATED)2022-12-03 13:49:13 Test Item Value Reference Range Interpretation Comments POCT GLU (test code = 2464394861) 169 mg/dL 70-110 H Lab Interpretation (test code = Abnormal 04245-1[id number]:45 Test Item Value Reference Range Interpretation Comments FERRITIN (test code = 36.3 ng/mL 11.0-264.0 3205157367) CLARICE (test code = CLARICE) Biotin has been reported to cause a negative bias, interpret results relative to patient's use of biotin. Lab Interpretation (test Normal code = 83369-3) [id number] 03:16:25 Test Item Value Reference Range Interpretation Comments IRON (test code = 7006338249) 66 ug/dL 50-160 TIBC (test code = 9571468867) 364 ug/dL 250-410 % FE SAT (test code = 8473954388) 18 % 20-50 L Lab Interpretation (test code = Abnormal 34429-6) [facility] [id number] 02:24:38 Test Item Value Reference Range Interpretation Comments TSH (test code = 1.79 See_Comment Biotin has been [id number]) reported to cau se a negative bias, interpret resul ts relative to pat ient's use of biotin. [Automated mess age] The system [employer] generated this result transmitted ref erence range: 0.45 - 4 .70 mIU/L. The refe rence range was not u sed to interpret this result as normal/abnor mal. Lab Interpretation (test Normal code = 48141-7) [facility]-03 01:21:53 Test Item Value Reference Range Interpretation Comments POCT GLU (test code = 6750692016) 124 mg/dL 70-110 H Lab Interpretation (test code = Abnormal 50578-2) [facility] [id number] 00:20:53 Test Item Value Reference Range Interpretation Comments FREE T3 (test code = 5010484194) 3.78 pg/mL 2.77-5.27 Lab Interpretation (test code = Normal 12538-7) [facility] [id number] 00:20:53 Test Item Value Reference Range Interpretation Comments FREE T4 (test code = 1.03 See_Comment [Autom ated message] [id number]) The system [employer] generated this result transmitted ref erence range: 0.78 - 2 .20 ng/dL:. The ref erence range was not u sed to interpret this result as normal/abnor mal. Lab Interpretation (test Normal code = 36586-8) [facility] HospitalL[facility] Acid Whole [id number] 23:27:42 Test Item Value Reference Range Interpretation Comments LACTIC ACID (test code = 1.18 mmol/L 0.50-2.20 2909500867) Lab Interpretation (test code = Normal 93004-7) [facility]TROPONIN [id number] 20:44:44 Test Item Value Reference Range Interpretation Comments TROPONIN I (test code = 0.000 ng/mL <=0.034 6641513232) CLARICE (test code = CLARICE) Reference (Normal) Range (defined by the 99th percentile reference limit): <= 0.034 ng/mL Note: Cardiac troponin begins to rise 3-4 hours after the onset of ischemia. Repeat in 4-6 hours if the sample was drawn within 3-4 hours of the onset of the symptom and found normal. Diagnosis of myocardial injury is made with acute changes in cTn concentrations with at least one serial sample above the 99th percentile upper reference limit (URL), taken together with the patient's clinical presentation. Biotin has been reported to cause a negative bias, interpret results relative to patient's use of biotin. Lab Interpretation Normal (test code = 94853-6) [facility] HospitalN-TERMINAL [id number] 20:41:46 Test Item Value Reference Range Interpretation Comments NT-proBNP (test code = 63 pg/mL <=125 7792219910) CLARICE (test code = CLARICE) Biotin has been reported to cause a negative bias, interpret results relative to patient's use of biotin. Lab Interpretation (test Normal code = 14220-1) [facility] HospitalCOMP. METABOLIC PANEL ([id number])2022-12-02 20:33:07 Test Item Value Reference Range Interpretation Comments NA (test code = 138 mmol/L 135-145 7102958999) K (test code = 4.4 mmol/L 3.5-5.0 3334766073) CL (test code = 103 mmol/L 98-108 7733989836) CO2 TOTAL (test code = 26 mmol/L 23-31 5319535336) AGAP (test code = 9 2-16 8607936798) BUN (test code = 14 mg/dL 7-23 4403900771) GLUCOSE (test code = 178 mg/dL 70-110 H 1496976373) CREATININE (test code = 0.72 mg/dL 0.50-1.04 1208453321) TOTAL BILI (test code = 0.6 mg/dL 0.1-1.2 4416658734) CALCIUM (test code = 8.9 mg/dL 8.6-10.6 9176438967) T PROTEIN (test code = 5.9 g/dL 6.3-8.2 L 3108531519) ALBUMIN (test code = 3.7 g/dL 3.5-5.0 0822502028) ALK PHOS (test code = 90 U/L 34-122 3322804381) ALTv (test code = 27 U/L 5-35 1742-6) AST(SGOT) (test code = 27 U/L 13-40 7167505718) eGFR (test code = 80.3 mL/min/1.73m2 7272736922) CLARICE (test code = CLARICE) Association of Glomerular Filtration Rate (GFR) and Staging of Kidney Disease* + --+ --+ ------+| GFR (mL/min/1.73 m2) ?| With Kidney Damage ?| ?Without Kidney Damage+ --------+ --------+ +| ?>90 ?| ?Stage one ?| ? Normal ?+ ---+ ---+ -------+| ?60-89 ?| ?Stage two ?| ? Decreased GFR ? + --+ --+ ------+| ?30-59 ?| ?Stage three ?| ? Stage three ? + --+ --+ ------+| ?15-29 ?| ?Stage four ? | ? Stage four ?+ ---+ ---+ -------+| ?<15 (or dialysis) ? ?| ?Stage five ? | ? Stage five ?+ ---+ ---+ -------+ *Each stage assumes the associated GFR level has been in effect for at least three months. ?Stages 1 to 5, with or without kidney disease, indicate chronic kidney disease. Notes: Determination of stages one and two (with eGFR >59mL/min/1.73 m2) requires estimation of kidney damage for at least three months as defined by structural or functional abnormalities of the kidney, manifested by either:Pathological abnormalities or Markers of kidney damage (including abnormalities in the composition of the blood or urine or abnormalities in imaging tests). Lab Interpretation Abnormal (test code = 58700-2) [facility]LIPASE2023-07-[facility] 20:32:27 Test Item Value Reference Range Interpretation Comments LIPASE (test code = 1873376122) 309 U/L 0-220 H Lab Interpretation (test code = Abnormal 11226-1) [facility] HospitalACTIVATED PARTIAL THRMPLAS [id number] 20:06:22 Test Item Value Reference Range Interpretation Comments APTT Patient (test 26 See_Comment [Automat ed code = 3173-2) message] The system which generated this result transmitted reference range : 23 - 38 Seconds . The reference range was not used to interpr et this result as normal/abnormal . CLARICE (test code = CLARICE) The [facility] patient population mean normal value for aPTT is 30 seconds. Lab Interpretation Normal (test code = 52843-3) [facility] HospitalPROTHROMBIN TIME / [id number] 20:03:41 Test Item Value Reference Range Interpretation Comments PROTIME PATIENT (test 15.5 See_Comment H [Auto mated message] code = 5964-2) The system wh ich generated this result transmitted ref erence range: 12.0 - 1 4.7 Seconds. The reference range was not used to int erpret this result as normal/abnormal . INR (test code = 6301-6) 1.3 Nor mal INR <1.1; Warfarin Therap eutic range 2.0 to 3. 0 or 2.5 to 3.5, dep ending upon the indica tions. Lab Interpretation (test Abnormal code = 93440-2) [facility] HospitalCBC WITH [id number] 19:53:03 Test Item Value Reference Range Interpretation Comments WBC (test code = 7.08 See_Comment [Automated 6690-2) message] The sy stem which generated this result transmitted reference range : 4.30 - 11.10 10*3/?L. The reference range was not used to interpret this result as normal/abnormal . RBC (test code = 3.85 See_Comment L [Automated 789-8) message] The sy stem which generated this result transmitted reference range : 3.93 - 5.25 10*6/?L. The reference range was not used to interpret this result as normal/abnormal . HGB (test code = 11.0 g/dL 11.6-15.0 L 718-7) HCT (test code = 33.4 % 35.7-45.2 L 4544-3) MCV (test code = 86.8 fL 80.6-95.5 787-2) MCH (test code = 28.6 pg 25.9-32.8 785-6) MCHC (test code = 32.9 g/dL 31.6-35.1 786-4) RDW-SD (test code = 41.2 fL 39.0-49.9 89572-1) RDW-CV (test code = 13.2 % 12.0-15.5 788-0) PLT (test code = 182 See_Comment [Automated 777-3) message] The sy stem which generated this result transmitted reference range : 166 - 358 10*3/ ?L. The reference r alexus was not used to interpret this result as normal/abnormal . MPV (test code = 9.7 fL 9.5-12.9 57257-0) NRBC/100 WBC (test 0.0 See_Comment [Automat ed code = 5925412535) message] The system which generated this result transmitted reference range : 0.0 - 10.0 /100 WBCs. The refer ence range was not u sed to interpret th is result as normal/abnormal . NRBC x10^3 (test code See_Comment [Auto mated = 2847304241) message] The s ystem which generated this result transmitted reference range : 10*3/?L. The reference range was not used to interpret this result as normal/abnormal . GRAN MAT (NEUT) % 55.7 % (test code = 770-8) IMM GRAN % (test code 0.40 % = 6087463664) LYMPH % (test code = 31.6 % 736-9) MONO % (test code = 8.9 % 5905-5) EOS % (test code = 2.7 % 713-8) BASO % (test code = 0.7 % 706-2) GRAN MAT x10^3(ANC) 3.94 10*3/uL 1.88-7.09 (test code = 2396669931) IMM GRAN x10^3 (test 0.03 10*3/uL 0.00-0.06 code = 7010118253) LYMPH x10^3 (test code 2.24 10*3/uL 1.32-3.29 = 731-0) MONO x10^3 (test code 0.63 10*3/uL 0.33-0.92 = 742-7) EOS x10^3 (test code = 0.19 10*3/uL 0.03-0.39 711-2) BASO x10^3 (test code 0.05 10*3/uL 0.01-0.07 = 704-7) Lab Interpretation Abnormal (test code = 11106-7) [facility] GLUCOSE (AUTOMATED)2022-12-02 19:00:52 Test Item Value Reference Range Interpretation Comments POCT GLU (test code = 2722238702) 213 mg/dL 70-110 H Lab Interpretation (test code = Abnormal 89024-4) [facility] GLUCOSE (AUTOMATED)2022-11-05 16:11:13 Test Item Value Reference Range Interpretation Comments POCT GLU (test code = 6088599341) 358 mg/dL 70-110 H Lab Interpretation (test code = Abnormal 30006-2) [facility] GLUCOSE (AUTOMATED)2022-11-05 12:44:59 Test Item Value Reference Range Interpretation Comments POCT GLU (test code = 2722677058) 229 mg/dL 70-110 H Lab Interpretation (test code = Abnormal 07288-0) [facility] GLUCOSE (AUTOMATED)2022-11-05 00:55:07 Test Item Value Reference Range Interpretation Comments POCT GLU (test code = 1637675183) 253 mg/dL 70-110 H Lab Interpretation (test code = Abnormal 05273-7) [facility] GLUCOSE (AUTOMATED)2022-11-04 22:38:35 Test Item Value Reference Range Interpretation Comments POCT GLU (test code = 6693615291) 206 mg/dL 70-110 H Lab Interpretation (test code = Abnormal 24759-7) [facility] GLUCOSE (AUTOMATED)2022-11-04 16:57:57 Test Item Value Reference Range Interpretation Comments POCT GLU (test code = 9892512014) 200 mg/dL 70-110 H Lab Interpretation (test code = Abnormal 62878-8) [facility] GLUCOSE (AUTOMATED)2022-11-04 13:13:50 Test Item Value Reference Range Interpretation Comments POCT GLU (test code = 3673074977) 203 mg/dL 70-110 H Lab Interpretation (test code = Abnormal 58152-0) [facility] HospitalAMMONIA, [id number] 10:59:51 Test Item Value Reference Range Interpretation Comments AMMONIA (test code = 1809588032) 9-33 L Lab Interpretation (test code = Abnormal 93580-2) [facility] GLUCOSE (AUTOMATED)2022-11-04 01:02:48 Test Item Value Reference Range Interpretation Comments POCT GLU (test code = 1414338875) 288 mg/dL 70-110 H Lab Interpretation (test code = Abnormal 28682-2) [facility] GLUCOSE (AUTOMATED)2022-11-03 22:13:20 Test Item Value Reference Range Interpretation Comments POCT GLU (test code = 9951861659) 184 mg/dL 70-110 H Lab Interpretation (test code = Abnormal 24802-6) [facility] GLUCOSE (AUTOMATED)2022-11-03 17:08:39 Test Item Value Reference Range Interpretation Comments POCT GLU (test code = 4472851045) 180 mg/dL 70-110 H Lab Interpretation (test code = Abnormal 02830-0) [facility] HospitalHEPATIC FUNCTION PANEL (16916) (ALB,T.PRO,BILI T,BU/BC,ALT,AST,ALK PHOS)2022-11-03 15:50:38 Test Item Value Reference Range Interpretation Comments TOTAL BILI (test code = 2264606906) 0.3 mg/dL 0.1-1.1 BILI UNCON (test code = 2141472368) 0.1 mg/dL 0.1-1.1 BILI CONJ (test code = 8258336741) 0.0 mg/dL 0.0-0.3 T PROTEIN (test code = 5201267526) 6.2 g/dL 6.3-8.2 L ALBUMIN (test code = 1690986317) 4.0 g/dL 3.5-5.0 ALK PHOS (test code = 9277643527) 139 U/L 34-122 H ALTv (test code = 1742-6) 22 U/L 5-35 AST(SGOT) (test code = 1140664459) 23 U/L 13-40 Lab Interpretation (test code = Abnormal 21816-8) [facility] HospitalIRON [id number] 14:38:52 Test Item Value Reference Range Interpretation Comments IRON (test code = 5166542946) 62 ug/dL 50-160 TIBC (test code = 8697935226) 393 ug/dL 250-410 % FE SAT (test code = 1649412780) 16 % 20-50 L Lab Interpretation (test code = Abnormal 36454-1) [facility] GLUCOSE (AUTOMATED)2022-11-03 13:28:51 Test Item Value Reference Range Interpretation Comments POCT GLU (test code = 3198931137) 142 mg/dL 70-110 H Lab Interpretation (test code = Abnormal 99027-9) [facility] GLUCOSE (AUTOMATED)2022-11-03 02:34:58 Test Item Value Reference Range Interpretation Comments POCT GLU (test code = 8331386190) 198 mg/dL 70-110 H Lab Interpretation (test code = Abnormal 20324-5) [facility] GLUCOSE (AUTOMATED)2022-11-02 23:08:06 Test Item Value Reference Range Interpretation Comments POCT GLU (test code = 1114303945) 160 mg/dL 70-110 H Lab Interpretation (test code = Abnormal 93407-6) [facility] GLUCOSE (AUTOMATED)2022-11-02 17:29:22 Test Item Value Reference Range Interpretation Comments POCT GLU (test code = 2533223480) 103 mg/dL 70-110 Lab Interpretation (test code = Normal 48894-7) [facility] GLUCOSE (AUTOMATED)2022-11-02 15:12:05 Test Item Value Reference Range Interpretation Comments POCT GLU (test code = 9357760232) 122 mg/dL 70-110 H Lab Interpretation (test code = Abnormal 33218-5) [facility]2022-11-02 03:31:19 Test Item Value Reference Range Interpretation Comments HGB A1C (test code = 8.4 % 4.0-5.7 H 4548-4) CLARICE (test code = CLARICE) Reference RangesNormal: <5.7%Prediabetes: 5.7 - 6.4%Diabetes: > 6.5% Lab Interpretation (test Abnormal code = 70206-8) [facility]TROP[facility]IN [id number] 20:01:06 Test Item Value Reference Range Interpretation Comments TROPONIN I (test code = 0.006 ng/mL <=0.034 9255804082) CLARICE (test code = CLARICE) Reference (Normal) Range (defined by the 99th percentile reference limit): <= 0.034 ng/mL Note: Cardiac troponin begins to rise 3-4 hours after the onset of ischemia. Repeat in 4-6 hours if the sample was drawn within 3-4 hours of the onset of the symptom and found normal. Diagnosis of myocardial injury is made with acute changes in cTn concentrations with at least one serial sample above the 99th percentile upper reference limit (URL), taken together with the patient's clinical presentation. Biotin has been reported to cause a negative bias, interpret results relative to patient's use of biotin. Lab Interpretation Normal (test code = 10715-4) [facility] HospitalETHANOL2023-06-01 19:43:35 ALCOHOL<10mg/dL11/01/2022 2:43 PM [facility]<10 Hueupngl74-588 Toxic>100 Depression of MGMT SPECIALIST>[address] [facility] CenterCOMP. METABOLIC PANEL (79809) 2022-11-01 19:42:24 Test Item Value Reference Range Interpretation Comments NA (test code = 140 mmol/L 135-145 5019853838) K (test code = 4.1 mmol/L 3.5-5.0 2718545594) CL (test code = 104 mmol/L 98-108 0239256755) CO2 TOTAL (test code = 27 mmol/L 23-31 5465748746) AGAP (test code = 9 2-16 5658273993) BUN (test code = 15 mg/dL 7-23 4732030085) GLUCOSE (test code = 126 mg/dL 70-110 H 8429353316) CREATININE (test code = 0.69 mg/dL 0.50-1.04 1369365145) TOTAL BILI (test code = 0.3 mg/dL 0.1-1.8 2487516881) CALCIUM (test code = 8.8 mg/dL 8.6-10.6 7195985385) T PROTEIN (test code = 6.3 g/dL 6.3-8.2 5417635334) ALBUMIN (test code = 3.9 g/dL 3.5-5.0 5023767544) ALK PHOS (test code = 136 U/L 34-122 H 7633568216) ALTv (test code = 22 U/L 5-35 2-6) AST(SGOT) (test code = 22 U/L 13-40 2101581576) eGFR (test code = 84.4 mL/min/1.73m2 5062473421) CLARICE (test code = CLARICE) Association of Glomerular Filtration Rate (GFR) and Staging of Kidney Disease* + --+ --+ ------+| GFR (mL/min/1.73 m2) ?| With Kidney Damage ?| ?Without Kidney Damage+ --------+ --------+ +| ?>90 ?| ?Stage one ?| ? Normal ?+ ---+ ---+ -------+| ?60-89 ?| ?Stage two ?| ? Decreased GFR ? + --+ --+ ------+| ?30-59 ?| ?Stage three ?| ? Stage three ? + --+ --+ ------+| ?15-29 ?| ?Stage four ? | ? Stage four ?+ ---+ ---+ -------+| ?<15 (or dialysis) ? ?| ?Stage five ? | ? Stage five ?+ ---+ ---+ -------+ *Each stage assumes the associated GFR level has been in effect for at least three months. ?Stages 1 to 5, with or without kidney disease, indicate chronic kidney disease. Notes: Determination of stages one and two (with eGFR >59mL/min/1.73 m2) requires estimation of kidney damage for at least three months as defined by structural or functional abnormalities of the kidney, manifested by either:Pathological abnormalities or Markers of kidney damage (including abnormalities in the composition of the blood or urine or abnormalities in imaging tests). Lab Interpretation Abnormal (test code = 65340-6) [facility] HospitalCREATINE [id number] 19:42:24 Test Item Value Reference Range Interpretation Comments CK (test code = 0431737703) 103 U/L 33-194 Lab Interpretation (test code = Normal 11241-1) [facility] HospitalCB WITH [id number] 19:29:23 Test Item Value Reference Range Interpretation Comments WBC (test code = 6.85 See_Comment [Automated 6690-2) message] The sy stem which generated this result transmitted reference range : 4.30 - 11.10 10*3/?L. The reference range was not used to interpret this result as normal/abnormal . RBC (test code = 4.00 See_Comment [Automated 789-8) message] The sy stem which generated this result transmitted reference range : 3.93 - 5.25 10*6/?L. The reference range was not used to interpret this result as normal/abnormal . HGB (test code = 11.4 g/dL 11.6-15.0 L 718-7) HCT (test code = 34.6 % 35.7-45.2 L 4544-3) MCV (test code = 86.5 fL 80.6-95.5 787-2) MCH (test code = 28.5 pg 25.9-32.8 785-6) MCHC (test code = 32.9 g/dL 31.6-35.1 786-4) RDW-SD (test code = 41.8 fL 39.0-49.9 62625-8) RDW-CV (test code = 13.3 % 12.0-15.5 788-0) PLT (test code = 194 See_Comment [Automated 777-3) message] The sy stem which generated this result transmitted reference range : 166 - 358 10*3/ ?L. The reference r alexus was not used to interpret this result as normal/abnormal . MPV (test code = 10.0 fL 9.5-12.9 66155-6) NRBC/100 WBC (test 0.0 See_Comment [Automat ed code = 6015108143) message] The system which generated this result transmitted reference range : 0.0 - 10.0 /100 WBCs. The refer ence range was not u sed to interpret th is result as normal/abnormal . NRBC x10^3 (test code See_Comment [Auto mated = 7090512446) message] The s ystem which generated this result transmitted reference range : 10*3/?L. The reference range was not used to interpret this result as normal/abnormal . GRAN MAT (NEUT) % 55.0 % (test code = 770-8) IMM GRAN % (test code 0.70 % = 1261981316) LYMPH % (test code = 28.6 % 736-9) MONO % (test code = 10.9 % 5905-5) EOS % (test code = 3.9 % 713-8) BASO % (test code = 0.9 % 706-2) GRAN MAT x10^3(ANC) 3.76 10*3/uL 1.88-7.09 (test code = 7083020281) IMM GRAN x10^3 (test 0.05 10*3/uL 0.00-0.06 code = 0755896277) LYMPH x10^3 (test code 1.96 10*3/uL 1.32-3.29 = 731-0) MONO x10^3 (test code 0.75 10*3/uL 0.33-0.92 = 742-7) EOS x10^3 (test code = 0.27 10*3/uL 0.03-0.39 711-2) BASO x10^3 (test code 0.06 10*3/uL 0.01-0.07 = 704-7) Lab Interpretation Abnormal (test code = 71177-2) [facility]PO[facility])2022-11-01 19:25:25 Test Item Value Reference Range Interpretation Comments POCT GLU (test code = 4621705529) 146 mg/dL 70-110 H Lab Interpretation (test code = Abnormal 76093-8) [facility] HospitalTroponin I - Code [id number] 06:14:08 Test Item Value Reference Range Interpretation Comments TROPONIN I (test code = 0.002 ng/mL <=0.034 0887359183) CLARICE (test code = CLARICE) Reference (Normal) Range (defined by the 99th percentile reference limit): <= 0.034 ng/mL Note: Cardiac troponin begins to rise 3-4 hours after the onset of ischemia. Repeat in 4-6 hours if the sample was drawn within 3-4 hours of the onset of the symptom and found normal. Diagnosis of myocardial injury is made with acute changes in cTn concentrations with at least one serial sample above the 99th percentile upper reference limit (URL), taken together with the patient's clinical presentation. Biotin has been reported to cause a negative bias, interpret results relative to patient's use of biotin. Lab Interpretation Normal (test code = 61724-5) [facility] Metabolic Panel (NA, K, CL, CO2, Glucose, BUN, Creatinine, CA) - Code [id number] 06:02:29 Test Item Value Reference Range Interpretation Comments NA (test code = 136 mmol/L 135-145 1069863865) K (test code = 4.2 mmol/L 3.5-5.0 4280854162) CL (test code = 99 mmol/L 98-108 3314735748) CO2 TOTAL (test code = 26 mmol/L 23-31 7907393272) AGAP (test code = 11 2-16 4626890433) BUN (test code = 19 mg/dL 7-23 6367529561) GLUCOSE (test code = 203 mg/dL 70-110 H 8164925723) CREATININE (test code = 0.69 mg/dL 0.50-1.04 5088751575) CALCIUM (test code = 9.2 mg/dL 8.6-10.6 9017918755) eGFR (test code = 84.4 mL/min/1.73m2 6227487221) CLARICE (test code = CLARICE) Association of Glomerular Filtration Rate (GFR) and Staging of Kidney Disease* + --+ --+ ------+| GFR (mL/min/1.73 m2) ?| With Kidney Damage ?| ?Without Kidney Damage+ --------+ --------+ +| ?>90 ?| ?Stage one ?| ? Normal ?+ ---+ ---+ -------+| ?60-89 ?| ?Stage two ?| ? Decreased GFR ? + --+ --+ ------+| ?30-59 ?| ?Stage three ?| ? Stage three ? + --+ --+ ------+| ?15-29 ?| ?Stage four ? | ? Stage four ?+ ---+ ---+ -------+| ?<15 (or dialysis) ? ?| ?Stage five ? | ? Stage five ?+ ---+ ---+ -------+ *Each stage assumes the associated GFR level has been in effect for at least three months. ?Stages 1 to 5, with or without kidney disease, indicate chronic kidney disease. Notes: Determination of stages one and two (with eGFR >59mL/min/1.73 m2) requires estimation of kidney damage for at least three months as defined by structural or functional abnormalities of the kidney, manifested by either:Pathological abnormalities or Markers of kidney damage (including abnormalities in the composition of the blood or urine or abnormalities in imaging tests). Lab Interpretation Abnormal (test code = 83282-0) [facility] HospitalaPTT - Code [id number] 05:59:27 Test Item Value Reference Range Interpretation Comments APTT Patient (test 26 See_Comment [Automat ed code = 3173-2) message] The system which generated this result transmitted reference range : 23 - 38 Seconds . The reference range was not used to interpr et this result as normal/abnormal . CLARICE (test code = CLARICE) The [facility] patient population mean normal value for aPTT is 30 seconds. Lab Interpretation Normal (test code = 17299-8) [facility] HospitalProthrombin Time / INR - Code [id number] 05:57:24 Test Item Value Reference Range Interpretation Comments PROTIME PATIENT (test 14.2 See_Comment [Auto mated message] code = 5964-2) The system wh ich generated this result transmitted ref erence range: 12.0 - 1 4.7 Seconds. The re ference range was not u sed to interpret this result as normal/abnor mal. INR (test code = 6301-6) 1.1 Nor mal INR <1.1; Warfarin Therap eutic range 2.0 to 3. 0 or 2.5 to 3.5, dep ending upon the indica tions. Lab Interpretation (test Normal code = 19269-1) [facility]PO[facility]2022-09-08 05:53:10 Test Item Value Reference Range Interpretation Comments POCT GLU (test code = 6152726198) 210 mg/dL 70-110 H Lab Interpretation (test code = Abnormal 15440-5) [facility] without Diff - Code [id number] 05:49:48 Test Item Value Reference Range Interpretation Comments WBC (test code = 7.66 See_Comment [Automated message] The 6690-2) system which ge nerated this result tra nsmitted reference range : 4.30 - 11.10 10*3/?L. The reference range was not used to interpr et this result as normal/abnormal . RBC (test code = 4.63 See_Comment [Automated message] The 789-8) system which opentabs nerated this result tra nsmitted reference range : 3.93 - 5.25 10*6/?L. T he reference range was not used to interpr et this result as normal/abnormal . HGB (test code = 13.1 g/dL 11.6-15.0 718-7) HCT (test code = 40.0 % 35.7-45.2 4544-3) MCH (test code = 28.3 pg 25.9-32.8 785-6) MCV (test code = 86.4 fL 80.6-95.5 787-2) MCHC (test code = 32.8 g/dL 31.6-35.1 786-4) PLT (test code = 245 See_Comment [Automated message] The 777-3) system which nerated this result tra nsmitted reference range : 166 - 358 10*3/?L. Th e reference range was not used to interpr et this result as normal/abnormal . MPV (test code = 9.9 fL 9.5-12.9 54680-9) RDW-CV (test code = 13.5 % 12.0-15.5 788-0) RDW-SD (test code = 41.8 fL 39.0-49.9 28827-4) NRBC x10^3 (test See_Comment [Automated message] The code = 2118214611) system [facility] generated this result tra nsmitted reference range : 10*3/?L. The reference r alexus was not used to int erpret this result as normal/abnormal . NRBC/100 WBC (test 0.0 See_Comment [Automat ed message] The code = 8872843451) system [facility] generated this result tra nsmitted reference range : 0.0 - 10.0 /100 WBCs. The reference range was not used to interpr et this result as normal/abnormal . IPF % (test code = 8090737099) [facility] GLUCOSE (AUTOMATED)2022-01-16 17:47:00 Test Item Value Reference Range Interpretation Comments POCT GLU (test code = 9360239068) 258 mg/dL 70-110 H Lab Interpretation (test code = Abnormal 81380-1) [facility] GLUCOSE (AUTOMATED)2022-01-16 13:54:45 Test Item Value Reference Range Interpretation Comments POCT GLU (test code = 6669219975) 171 mg/dL 70-110 H Lab Interpretation (test code = Abnormal 32791-7) [facility] GLUCOSE (AUTOMATED)2022-01-16 01:32:03 Test Item Value Reference Range Interpretation Comments POCT GLU (test code = 5068797019) 232 mg/dL 70-110 H Lab Interpretation (test code = Abnormal 11845-6) [facility] GLUCOSE (AUTOMATED)2022-01-15 16:47:52 Test Item Value Reference Range Interpretation Comments POCT GLU (test code = 9174480690) 263 mg/dL 70-110 H Lab Interpretation (test code = Abnormal 18785-1) [facility] 18:23:20 Test Item Value Reference Range Interpretation Comments LVOT stroke volume (test 74.90 cm3 code = 8390597576) EF(Teich) (test code = 61.80 % 4534295787) LVIDD (test code = 4.90 cm 9576688025) LVIDS (test code = 3.30 cm 9959165645) IVS (test code = 1.01 cm 6953508306) LVPWD (test code = 1.02 cm 2785502084) LVOT diameter (test code 1.91 cm = 6459718574) FS (test code = 33 % 8671930873) MV Peak E Vamsi (test code 94.6 cm/s = 2886390345) MV Peak A Vamsi (test code 147.7 cm/s = 6624149743) E/A ratio (test code = ratio 8830841946) E wave decelartion time 0.34 s (test code = 3677461055) LA Volume Index (BP) 28.4 mL/m2 (test code = 3122405022) LA volume (BP) (test code 51.8 mL = 1177872477) LVOT peak vamsi (test code 123.1 cm/s = 1050675865) LVOT mn grad (test code = mmHg 8366844574) Left Ventricular Cardiac 4.8 L/min Output (test code = 1722059) LA size (test code = 2.30 cm 8790960952) LAV(MOD-sp2) (test code = 46.40 mL 7866729689) LAV(MOD-sp4) (test code = 57.10 mL 0241083802) Tapse (test code = 2.6 cm 4196538961) Ao peak vamsi (test code = 127.6 cm/s 6569355182) AV LVOT peak gradient mmHg (test code = 1489855034) LVOT peak VTI (test code 26.2 cm = 9976667965) AV area peak vamsi (test 2.8 cm2 code = 8201827918) Aortic HR (test code = BPM 2427922193) LV V1 mean (test code = 80.10 cm/s 3603315378) Ao max PG (test code = 6.50 mm[Hg] 7951919862) MV Prop V (test code = 62.10 cm/s 2086511517) TR Peak Vamsi (test code = 238.9 cm/s 4624526812) Triscuspid Valve mmHg Regurgitation Peak Gradient (test code = 8752051211) Ao root annulus (test 3.4 cm code = 8477203058) Ao root diam (test code = 3.40 cm 3952507329) IVC Diam Exp(MM) (test 1.68 cm code = 7143588731) IVC Diam Ins(MM) (test 1.02 cm code = 6064710940) AV peak gradient (test mmHg code = 4813454290) Aortic root (test code = 3.4 cm 1721065405) PW (test code = 1.02 cm 0.6-1.6 2553415403) EF - 2D (test code = 61.80 % 48159802) Interventricular Septum 1.01 cm Diastolic Thickness by 2D (test code = 0563586) Radiology Study observation (narrative) (test code = 19091-0) CLARICE (test code = CLARICE) ?Left?Ventricle: Left ventricle size is normal. Normal wall thickness. No regional wall motion abnormalities. Normal systolic function with a visually estimated EF of 60 - 65%. Diastolic dysfunction. ?Right?Ventricle: Right ventricle size is normal. Normal systolic function. VitalsHeight Weight BSA (Calculated - sq m) BP Pulse 5' 5" (1.651 m) 166 lb (75.3 kg) 1.86 sq meters 132/78 67 [facility] GLUCOSE (AUTOMATED)2021-09-23 16:38:56 Test Item Value Reference Range Interpretation Comments POCT GLU (test code = 5256345474) 146 mg/dL 70-110 H Lab Interpretation (test code = Abnormal 20312-7) [facility] GLUCOSE (AUTOMATED)2021-09-23 13:26:11 Test Item Value Reference Range Interpretation Comments POCT GLU (test code = 2854177001) 158 mg/dL 70-110 H Lab Interpretation (test code = Abnormal 97268-7) [facility] GLUCOSE (AUTOMATED)2021-09-23 01:44:45 Test Item Value Reference Range Interpretation Comments POCT GLU (test code = 7668188136) 129 mg/dL 70-110 H Lab Interpretation (test code = Abnormal 51570-0) [facility] GLUCOSE (AUTOMATED)2021-09-22 21:12:38 Test Item Value Reference Range Interpretation Comments POCT GLU (test code = 0130865355) 146 mg/dL 70-110 H Lab Interpretation (test code = Abnormal 36714-9) [facility] GLUCOSE (AUTOMATED)2021-09-22 16:40:51 Test Item Value Reference Range Interpretation Comments POCT GLU (test code = 7833006910) 197 mg/dL 70-110 H Lab Interpretation (test code = Abnormal 48797-7) [facility] [id number] 10:44:58 Test Item Value Reference Interpretation Comments Range TROPONIN I (test 0.018 ng/mL See_Comment [Automated code = 7224233555) message] The system which generated this result transmitted reference range : <=0.034. The reference range was not used to interpret this result as normal/abnormal . CLARICE (test code = Reference (Normal) CLARICE) Range (defined by the 99th percentile reference limit): <= 0.034 ng/mL Note: Cardiac troponin begins to rise 3-4 hours after the onset of ischemia. Repeat in 4-6 hours if the sample was drawn within 3-4 hours of the onset of the symptom and found normal. Diagnosis of myocardial injury is made with acute changes in cTn concentrations with at least one serial sample above the 99th percentile upper reference limit (URL), taken together with the patient's clinical presentation. Biotin has been reported to cause a negative bias, interpret results relative to patient's use of biotin. Lab Interpretation Normal (test code = 32570-5) [facility] [id number] 10:41:16 Test Item Value Reference Range Interpretation Comments NT-proBNP (test code 94 pg/mL See_Comment [Autom ated = 4466351188) message] The system which generated this result transmitted reference range : <=125. The reference range was not used to interpret this result as normal/abnormal . CLARICE (test code = CLARICE) Biotin has been reported to cause a negative bias, interpret results relative to patient's use of biotin. Lab Interpretation Normal (test code = 13350-6) [facility]OL[facility] ([id number])2021-09-22 10:31:56 Test Item Value Reference Range Interpretation Comments NA (test code = 136 mmol/L 135-145 4214422231) K (test code = 4.0 mmol/L 3.5-5.0 4893221681) CL (test code = 102 mmol/L 98-108 4221633490) CO2 TOTAL (test code = 23 mmol/L 23-31 1471772730) AGAP (test code = 2-16 4586645877) BUN (test code = 17 mg/dL 7-23 8378494827) GLUCOSE (test code = 179 mg/dL 70-110 H 0408163548) CREATININE (test code = 0.58 mg/dL 0.50-1.04 4388380317) TOTAL BILI (test code = 0.5 mg/dL 0.1-1.0 2857721205) CALCIUM (test code = 8.4 mg/dL 8.6-10.6 L 2967018494) T PROTEIN (test code = 6.7 g/dL 6.3-8.2 4946504928) ALBUMIN (test code = 4.3 g/dL 3.5-5.0 1993923482) ALK PHOS (test code = 185 U/L 34-122 H 6486726768) ALTv (test code = 18 U/L 5-35 1742-6) AST(SGOT) (test code = 20 U/L 13-40 2556652319) eGFR (test code = mL/min/1.73m2 6312354591) CLARICE (test code = CLARICE) Association of Glomerular Filtration Rate (GFR) and Staging of Kidney Disease* + --+ --+ ------+| GFR (mL/min/1.73 m2) ?| With Kidney Damage ?| ?Without Kidney Damage+ --------+ --------+ +| ?>90 ?| ?Stage one ?| ? Normal ?+ ---+ ---+ -------+| ?60-89 ?| ?Stage two ?| ? Decreased GFR ? + --+ --+ ------+| ?30-59 ?| ?Stage three ?| ? Stage three ? + --+ --+ ------+| ?15-29 ?| ?Stage four ? | ? Stage four ?+ ---+ ---+ -------+| ?<15 (or dialysis) ? ?| ?Stage five ? | ? Stage five ?+ ---+ ---+ -------+ *Each stage assumes the associated GFR level has been in effect for at least three months. ?Stages 1 to 5, with or without kidney disease, indicate chronic kidney disease. Notes: Determination of stages one and two (with eGFR >59mL/min/1.73 m2) requires estimation of kidney damage for at least three months as defined by structural or functional abnormalities of the kidney, manifested by either:Pathological abnormalities or Markers of kidney damage (including abnormalities in the composition of the blood or urine or abnormalities in imaging tests). Lab Interpretation Abnormal (test code = 81179-5) [facility] THRM[facility] [id number] 10:15:14 Test Item Value Reference Range Interpretation Comments APTT Patient (test See_Comment [Automat ed code = 3173-2) message] The system which generated this result transmitted reference range : 23 - 38 Seconds . The reference range was not used to interpr et this result as normal/abnormal . CLARICE (test code = CLARICE) The [facility] patient population mean normal value for aPTT is 30 seconds. Lab Interpretation Normal (test code = 13934-0) [facility]PROT[facility] / [id number] 10:13:13 Test Item Value Reference Range Interpretation Comments PROTIME PATIENT (test See_Comment [Auto mated message] code = 5964-2) The system wh ich generated this result transmitted ref erence range: 12.0 - 1 4.7 Seconds. The re ference range was not u sed to interpret this result as normal/abnor mal. INR (test code = 6301-6) Nor mal INR <1.1; Warfarin Therap eutic range 2.0 to 3. 0 or 2.5 to 3.5, dep ending upon the indica tions. Lab Interpretation (test Normal code = 49101-9) [facility] WITH [id number] 09:53:12 Test Item Value Reference Range Interpretation Comments WBC (test code = See_Comment [Automated 4990-2) message] The sy stem which generated this result transmitted reference range : 4.30 - 11.10 10*3/?L. The reference range was not used to interpret this result as normal/abnormal . RBC (test code = See_Comment [Automated 669-8) message] The sy stem which generated this result transmitted reference range : 3.93 - 5.25 10*6/?L. The reference range was not used to interpret this result as normal/abnormal . HGB (test code = 13.4 g/dL 11.6-15.0 718-7) HCT (test code = 40.2 % 35.7-45.2 4544-3) MCV (test code = 85.2 fL 80.6-95.5 787-2) MCH (test code = 28.4 pg 25.9-32.8 785-6) MCHC (test code = 33.3 g/dL 31.6-35.1 786-4) RDW-SD (test code = 41.1 fL 39.0-49.9 20918-8) RDW-CV (test code = 13.2 % 12.0-15.5 788-0) PLT (test code = See_Comment [Automated 777-3) message] The sy stem which generated this result transmitted reference range : 166 - 358 10*3/ ?L. The reference r alexus was not used to interpret this result as normal/abnormal . MPV (test code = 9.7 fL 9.5-12.9 23838-6) NRBC/100 WBC (test See_Comment [Automat ed code = 7540479859) message] The system which generated this result transmitted reference range : 0.0 - 10.0 /100 WBCs. The refer ence range was not u sed to interpret th is result as normal/abnormal . NRBC x10^3 (test code <0.01 See_Comment [Auto mated = 5405597780) message] The s ystem which generated this result transmitted reference range : 10*3/?L. The reference range was not used to interpret this result as normal/abnormal . GRAN MAT (NEUT) % 62.5 % (test code = 770-8) IMM GRAN % (test code 0.60 % = 0161911512) LYMPH % (test code = 23.9 % 736-9) MONO % (test code = 10.6 % 5905-5) EOS % (test code = 1.7 % 713-8) BASO % (test code = 0.7 % 706-2) GRAN MAT x10^3(ANC) 6.52 10*3/uL 1.88-7.09 (test code = 9833661773) IMM GRAN x10^3 (test 0.06 10*3/uL 0.00-0.06 code = 0023645540) LYMPH x10^3 (test code 2.49 10*3/uL 1.32-3.29 = 731-0) MONO x10^3 (test code 1.11 10*3/uL 0.33-0.92 H = 742-7) EOS x10^3 (test code = 0.18 10*3/uL 0.03-0.39 711-2) BASO x10^3 (test code 0.07 10*3/uL 0.01-0.07 = 704-7) Lab Interpretation Abnormal (test code = 29181-6) [facility] GLUCOSE (AUTOMATED)2021-01-24 16:46:38 Test Item Value Reference Range Interpretation Comments POCT GLU (test code = 1736736785) 224 mg/dL 70-110 H Lab Interpretation (test code = Abnormal 93196-5) [facility] GLUCOSE (AUTOMATED)2021-01-24 16:46:38 Test Item Value Reference Range Interpretation Comments POCT GLU (test code = 5526813520) 224 mg/dL 70-110 H Lab Interpretation (test code = Abnormal 61190-6) [facility] WITH [id number] 15:36:26 Test Item Value Reference Range Interpretation Comments WBC (test code = See_Comment [Automated message] 4490-2) The system [employer] generated this result transmitted ref erence range: 4.30 - 1 1.10 10*3/?L. The re ference range was not u sed to interpret this result as normal/abnor mal. RBC (test code = See_Comment [Automated message] 459-8) The system [employer] generated this result transmitted ref erence range: 3.93 - 5 .25 10*6/?L. The re ference range was not u sed to interpret this result as normal/abnor mal. HGB (test code = 12.6 g/dL 11.6-15.0 718-7) HCT (test code = 39.2 % 35.7-45.2 4544-3) MCV (test code = 87.3 fL 80.6-95.5 787-2) MCH (test code = 28.1 pg 25.9-32.8 785-6) MCHC (test code = 32.1 g/dL 31.6-35.1 786-4) RDW-SD (test code 42.4 fL 39.0-49.9 = 42057-4) RDW-CV (test code 13.2 % 12.0-15.5 = 788-0) PLT (test code = See_Comment [Automated message] 337-3) The system whic h generated this result transmitted ref erence range: 166 - 35 8 10*3/?L. The re ference range was not u sed to interpret this result as normal/abnor mal. MPV (test code = 10.0 fL 9.5-12.9 36588-8) NRBC/100 WBC (test See_Comment [Automat ed message] code = 0407249758) The syste m which generated this result transmitted ref erence range: 0.0 - 10 .0 /100 WBCs. The refer ence range was not u sed to interpret this result as normal/abnor mal. NRBC x10^3 (test <0.01 See_Comment [Automated message] code = 1009200117) The syste m which generated this result transmitted ref erence range: 10*3/?L. The reference range was not used to interpr et this result as normal/abnormal . GRAN MAT (NEUT) % 55.6 % (test code = 770-8) IMM GRAN % (test 0.60 % code = 4717568469) LYMPH % (test code 30.0 % = 736-9) MONO % (test code 10.3 % = 5905-5) EOS % (test code = 2.8 % 713-8) BASO % (test code 0.7 % = 706-2) GRAN MAT 3.70 10*3/uL 1.88-7.09 x10^3(ANC) (test code = 6529603900) IMM GRAN x10^3 0.04 10*3/uL 0.00-0.06 (test code = 5107679680) LYMPH x10^3 (test 2.00 10*3/uL 1.32-3.29 code = 731-0) MONO x10^3 (test 0.69 10*3/uL 0.33-0.92 code = 742-7) EOS x10^3 (test 0.19 10*3/uL 0.03-0.39 code = 711-2) BASO x10^3 (test 0.05 10*3/uL 0.01-0.07 code = 704-7) [facility] WITH [id number] 15:36:26 Test Item Value Reference Range Interpretation Comments WBC (test code = See_Comment [Automated message] 6690-2) The system [employer] generated this result transmitted ref erence range: 4.30 - 1 1.10 10*3/?L. The re ference range was not u sed to interpret this result as normal/abnor mal. RBC (test code = See_Comment [Automated message] 789-8) The system [employer] generated this result transmitted ref erence range: 3.93 - 5 .25 10*6/?L. The re ference range was not u sed to interpret this result as normal/abnor mal. HGB (test code = 12.6 g/dL 11.6-15.0 718-7) HCT (test code = 39.2 % 35.7-45.2 4544-3) MCV (test code = 87.3 fL 80.6-95.5 787-2) MCH (test code = 28.1 pg 25.9-32.8 785-6) MCHC (test code = 32.1 g/dL 31.6-35.1 786-4) RDW-SD (test code 42.4 fL 39.0-49.9 = 16477-4) RDW-CV (test code 13.2 % 12.0-15.5 = 788-0) PLT (test code = See_Comment [Automated message] 777-3) The system [employer] generated this result transmitted ref erence range: 166 - 35 8 10*3/?L. The re ference range was not u sed to interpret this result as normal/abnor mal. MPV (test code = 10.0 fL 9.5-12.9 13726-8) NRBC/100 WBC (test See_Comment [Automat ed message] code = 0276597500) The syste [employer] which generated this result transmitted ref erence range: 0.0 - 10 .0 /100 WBCs. The refer ence range was not u sed to interpret this result as normal/abnor mal. NRBC x10^3 (test <0.01 See_Comment [Automated message] code = 7106776236) The syste m which generated this result transmitted ref erence range: 10*3/?L. The reference range was not used to interpr et this result as normal/abnormal . GRAN MAT (NEUT) % 55.6 % (test code = 770-8) IMM GRAN % (test 0.60 % code = 3292699785) LYMPH % (test code 30.0 % = 736-9) MONO % (test code 10.3 % = 5905-5) EOS % (test code = 2.8 % 713-8) BASO % (test code 0.7 % = 706-2) GRAN MAT 3.70 10*3/uL 1.88-7.09 x10^3(ANC) (test code = 0150647295) IMM GRAN x10^3 0.04 10*3/uL 0.00-0.06 (test code = 8615752931) LYMPH x10^3 (test 2.00 10*3/uL 1.32-3.29 code = 731-0) MONO x10^3 (test 0.69 10*3/uL 0.33-0.92 code = 742-7) EOS x10^3 (test 0.19 10*3/uL 0.03-0.39 code = 711-2) BASO x10^3 (test 0.05 10*3/uL 0.01-0.07 code = 704-7) [facility] GLUCOSE (AUTOMATED)2021-01-24 14:34:03 Test Item Value Reference Range Interpretation Comments POCT GLU (test code = 8369279441) 174 mg/dL 70-110 H Lab Interpretation (test code = Abnormal 11517-8) [facility] GLUCOSE (AUTOMATED)2021-01-24 14:34:03 Test Item Value Reference Range Interpretation Comments POCT GLU (test code = 2907075229) 174 mg/dL 70-110 H Lab Interpretation (test code = Abnormal 45647-5) [facility] 13:30:31 Test Item Value Reference Range Interpretation Comments APPEARANCE (test code Clear Clear = 4602775419) COLOR (test code = Yellow Yellow 0354782523) PH (test code = 4.8-8.0 5620075933) SP GRAVITY (test code 1.003-1.030 = 6426885451) GLU U QUAL (test code Normal Normal = 0845945459) BLOOD (test code = Negative Negative 2298284116) KETONES (test code = Negative Negative 9411072231) PROTEIN (test code = Negative Negative 2887-8) UROBILIN (test code = Normal Normal 3199303606) BILIRUBIN (test code = Negative Negative 6021819793) NITRITE (test code = Negative Negative 4794278790) LEUK JONAS (test code Negative Negative = 1680121399) RBC/HPF (test code = See_Comment [Autom ated message] 1191096374) The system [employer] generated this result transmitted ref erence range: 0 - 3 HP F. The reference range was not used to interpr et this result as normal/abnormal . WBC/HPF (test code = <1 See_Comment [Autom ated message] 6036935045) The system [employer] generated this result transmitted ref erence range: 0 - 5 HP F. The reference range was not used to interpr et this result as normal/abnormal . BACTERIA (test code = Negative Negative 6545373064) SQ EPITH (test code = <1 HPF 2464366189) [facility] 13:30:31 Test Item Value Reference Range Interpretation Comments APPEARANCE (test code Clear Clear = 4137358577) COLOR (test code = Yellow Yellow 1261960170) PH (test code = 4.8-8.0 9110093087) SP GRAVITY (test code 1.003-1.030 = 4807147004) GLU U QUAL (test code Normal Normal = 4229723009) BLOOD (test code = Negative Negative 8829669748) KETONES (test code = Negative Negative 0967615268) PROTEIN (test code = Negative Negative 2887-8) UROBILIN (test code = Normal Normal 4939924193) BILIRUBIN (test code = Negative Negative 6999147450) NITRITE (test code = Negative Negative 9153807653) LEUK JONAS (test code Negative Negative = 3292974529) RBC/HPF (test code = See_Comment [Autom ated message] 1015091491) The system [employer] generated this result transmitted ref erence range: 0 - 3 HP F. The reference range was not used to interpr et this result as normal/abnormal . WBC/HPF (test code = <1 See_Comment [Autom ated message] 0942634997) The system [employer] generated this result transmitted ref erence range: 0 - 5 HP F. The reference range was not used to interpr et this result as normal/abnormal . BACTERIA (test code = Negative Negative 9313833138) SQ EPITH (test code = <1 HPF 1795562709) [facility] GLUCOSE (AUTOMATED)2021-01-24 13:14:11 Test Item Value Reference Range Interpretation Comments POCT GLU (test code = 7039194699) 184 mg/dL 70-110 H Lab Interpretation (test code = Abnormal 52189-2) [facility] GLUCOSE (AUTOMATED)2021-01-24 13:14:11 Test Item Value Reference Range Interpretation Comments POCT GLU (test code = 8280686329) 184 mg/dL 70-110 H Lab Interpretation (test code = Abnormal 06093-4) [facility]A1C)2021-01-24 12:17:17 Test Item Value Reference Range Interpretation Comments HGB A1C (test code = 8.9 % 4.0-5.7 H 4548-4) CLARICE (test code = CLARICE) Reference RangesNormal: <5.7%Prediabetes: 5.7 - 6.4%Diabetes: > 6.5% Lab Interpretation (test Abnormal code = 62040-4) [facility]A1C)2021-01-24 12:17:17 Test Item Value Reference Range Interpretation Comments HGB A1C (test code = 4548-4) 8.9 % 4.0-5.7 H CLARICE (test code = CLARICE) Lab Interpretation (test code = Abnormal 71087-2) [facility] (NA, K, CL, CO2, GLUCOSE, BUN, CREATININE, CA)2021-01-24 11:52:07 Test Item Value Reference Range Interpretation Comments NA (test code = 139 mmol/L 135-145 8653341935) K (test code = 4.0 mmol/L 3.5-5.0 8888684256) CL (test code = 103 mmol/L 98-108 4887199659) CO2 TOTAL (test code = 25 mmol/L 23-31 8128091630) AGAP (test code = 2-16 8055220682) BUN (test code = 14 mg/dL 7-23 4187550791) GLUCOSE (test code = 151 mg/dL 70-110 H 6564134047) CREATININE (test code = 0.70 mg/dL 0.50-1.04 1772621967) CALCIUM (test code = 9.7 mg/dL 8.6-10.6 7957141482) eGFR (test code = mL/min/1.73m2 0514327477) CLARICE (test code = CLARICE) Association of Glomerular Filtration Rate (GFR) and Staging of Kidney Disease* + --+ --+ ------+| GFR (mL/min/1.73 m2) ?| With Kidney Damage ?| ?Without Kidney Damage+ --------+ --------+ +| ?>90 ?| ?Stage one ?| ? Normal ?+ ---+ ---+ -------+| ?60-89 ?| ?Stage two ?| ? Decreased GFR ? + --+ --+ ------+| ?30-59 ?| ?Stage three ?| ? Stage three ? + --+ --+ ------+| ?15-29 ?| ?Stage four ? | ? Stage four ?+ ---+ ---+ -------+| ?<15 (or dialysis) ? ?| ?Stage five ? | ? Stage five ?+ ---+ ---+ -------+ *Each stage assumes the associated GFR level has been in effect for at least three months. ?Stages 1 to 5, with or without kidney disease, indicate chronic kidney disease. Notes: Determination of stages one and two (with eGFR >59mL/min/1.73 m2) requires estimation of kidney damage for at least three months as defined by structural or functional abnormalities of the kidney, manifested by either:Pathological abnormalities or Markers of kidney damage (including abnormalities in the composition of the blood or urine or abnormalities in imaging tests). Lab Interpretation Abnormal (test code = 24563-3) [facility] METABOLIC PANEL (NA, K, CL, CO2, GLUCOSE, BUN, CREATININE, CA)2021-01-24 11:52:07 Test Item Value Reference Range Interpretation Comments NA (test code = 6766908652) 139 mmol/L 135-145 K (test code = 9119134927) 4.0 mmol/L 3.5-5.0 CL (test code = 1563988950) 103 mmol/L 98-108 CO2 TOTAL (test code = 0719941975) 25 mmol/L 23-31 AGAP (test code = 6580133408) 2-16 BUN (test code = 8269748189) 14 mg/dL 7-23 GLUCOSE (test code = 4797645753) 151 mg/dL 70-110 H CREATININE (test code = 0.70 mg/dL 0.50-1.04 7097337974) CALCIUM (test code = 3178322120) 9.7 mg/dL 8.6-10.6 eGFR (test code = 9469916244) mL/min/1.73m2 CLARICE (test code = CLARICE) Lab Interpretation (test code = Abnormal 29058-9) [facility] GLUCOSE (AUTOMATED)2021-01-23 21:32:29 Test Item Value Reference Range Interpretation Comments POCT GLU (test code = 1491711565) 111 mg/dL 70-110 H Lab Interpretation (test code = Abnormal 11826-6) [facility] GLUCOSE (AUTOMATED)2021-01-23 21:32:29 Test Item Value Reference Range Interpretation Comments POCT GLU (test code = 5961863722) 111 mg/dL 70-110 H Lab Interpretation (test code = Abnormal 06497-2) [facility] GLUCOSE (AUTOMATED)2021-01-23 16:53:41 Test Item Value Reference Range Interpretation Comments POCT GLU (test code = 5238787127) 190 mg/dL 70-110 H Lab Interpretation (test code = Abnormal 57462-6) [facility] GLUCOSE (AUTOMATED)2021-01-23 16:53:41 Test Item Value Reference Range Interpretation Comments POCT GLU (test code = 3048433256) 190 mg/dL 70-110 H Lab Interpretation (test code = Abnormal 66701-0) [facility] BRAIN WO [id number] 15:20:18 No acute intracranial abnormality. Preliminary Report Dictated by Resident: Laurent Abreu MD., have reviewed this study and agree with theabove report.MR BRAIN WO CONTRAST COMPARISON: 01/20/2021. HISTORY: Transient ischemic attack (TIA) TECHNIQUE: Multi weighted multiplanarMRI of the head was done withoutcontrast on 1.5 Anastasiia magnet. FINDINGS: The ventricles and cerebral sulci are normal in caliber and configuration.No midline shift, hydrocephalus or pathological extra-axial fluidcollection is present. The basal cisterns are unremarkable. No restricted diffusion is present to suggest acute infarct. No abnormalparenchymal signal abnormality is present. No abnormal gradient blooming. The T2 flow voids for the major intracranial vessels are unremarkable. Noabnormal fluidsignal is present in the mastoid air cells or paranasal airsinuses. Bilateral pseudophakia. [facility], Radiant Results Inft User - 01/23/2021 10:21 AM CDT MR BRAIN WO CONTRASTCOMPARISON: 01/20/2021.HISTORY: Transient ischemic attack (TIA) TECHNIQUE: Multi weighted multiplanar MRI of the head was done withoutcontrast on 1.5 Anastasiia magnet.FINDINGS:The ventricles and cerebral sulci are normal in caliber and configuration.No midline shift, hydrocephalus or pathological extra- axial fluidcollection is present. The basal cisterns are unremarkable.No rest ricted diffusion is present to suggest acute infarct. No abnormalparenchymal signal abnormality is present. No abnormal gradient blooming. The T2 flow voids for the major intracranial vessels are unremarkable. Noabnormal fluid signal is present in the mastoid air cells or paranasal airsinuses. Bilateral pseudophakia.IMPRESSIONNo acute intracranial abnormality.Preliminary Report Dictated by Resident: Laurent Martinez MD., have reviewed this study and agree with theabove report.[facility] [id number] 15:20:18 No acute intracranial abnormality. Preliminary Report Dictated by Resident: Laurent Abreu MD., have reviewed this study and agree with theabove report.MR BRAIN WO CONTRAST COMPARISON: 01/20/2021. HISTORY: Transient ischemic attack (TIA) TECHNIQUE: Multi weighted multiplanarMRI of the head was done withoutcontrast on 1.5 Anastasiia magnet. FINDINGS: The ventricles and cerebral sulci are normal in caliber and configuration.No midline shift, hydrocephalus or pathological extra-axial fluidcollection is present. The basal cisterns are unremarkable. No restricted diffusion is present to suggest acute infarct. No abnormalparenchymal signal abnormality is present. No abnormal gradient blooming. The T2 flow voids for the major intracranial vessels are unremarkable. Noabnormal fluidsignal is present in the mastoid air cells or paranasal airsinuses. Bilateral pseudophakia. [facility], Radiant Results Inft User - 01/23/2021 10:21 AM CDT MR BRAIN WO CONTRASTCOMPARISON: 01/20/2021.HISTORY: Transient ischemic attack (TIA) TECHNIQUE: Multi weighted multiplanar MRI of the head was done withoutcontrast on 1.5 Anastasiia magnet.FINDINGS:The ventricles and cerebral sulci are normal in caliber and configuration.No midline shift, hydrocephalus or pathological extra- axial fluidcollection is present. The basal cisterns are unremarkable.No rest ricted diffusion is present to suggest acute infarct. No abnormalparenchymal signal abnormality is present. No abnormal gradient blooming. The T2 flow voids for the major intracranial vessels are unremarkable. Noabnormal fluid signal is present in the mastoid air cells or paranasal airsinuses. Bilateral pseudophakia.IMPRESSIONNo acute intracranial abnormality.Preliminary Report Dictated by Resident: Laurent Martinez MD., have reviewed this study and agree with theabove report.[facility] GLUCOSE (AUTOMATED)2021-01-23 13:03:33 Test Item Value Reference Range Interpretation Comments POCT GLU (test code = 4717410487) 177 mg/dL 70-110 H Lab Interpretation (test code = Abnormal 28796-4) [facility] GLUCOSE (AUTOMATED)2021-01-23 13:03:33 Test Item Value Reference Range Interpretation Comments POCT GLU (test code = 8872000149) 177 mg/dL 70-110 H Lab Interpretation (test code = Abnormal 92011-3) [facility] WITH [id number] 10:24:38 Test Item Value Reference Range Interpretation Comments WBC (test code = See_Comment [Automated 6690-2) message] The sy stem which generated this result transmitted reference range : 4.30 - 11.10 10*3/?L. The reference range was not used to interpret this result as normal/abnormal . RBC (test code = See_Comment [Automated 789-8) message] The sy stem which generated this result transmitted reference range : 3.93 - 5.25 10*6/?L. The reference range was not used to interpret this result as normal/abnormal . HGB (test code = 11.7 g/dL 11.6-15.0 718-7) HCT (test code = 35.8 % 35.7-45.2 4544-3) MCV (test code = 86.9 fL 80.6-95.5 787-2) MCH (test code = 28.4 pg 25.9-32.8 785-6) MCHC (test code = 32.7 g/dL 31.6-35.1 786-4) RDW-SD (test code = 41.6 fL 39.0-49.9 64936-9) RDW-CV (test code = 13.3 % 12.0-15.5 788-0) PLT (test code = See_Comment L [Automated 777-3) message] The sy stem which generated this result transmitted reference range : 166 - 358 10*3/ ?L. The reference r alexus was not used to interpret this result as normal/abnormal . MPV (test code = 10.2 fL 9.5-12.9 04847-1) IPF % (test code = 2.7 % 1.3-7.7 Platelet count 2352699336) measured by fluorescence method. NRBC/100 WBC (test See_Comment [Automat ed code = 4570212130) message] The system which generated this result transmitted reference range : 0.0 - 10.0 /100 WBCs. The refer ence range was not u sed to interpret th is result as normal/abnormal . NRBC x10^3 (test code <0.01 See_Comment [Auto mated = 0824717218) message] The s ystem which generated this result transmitted reference range : 10*3/?L. The reference range was not used to interpret this result as normal/abnormal . GRAN MAT (NEUT) % 59.5 % (test code = 770-8) IMM GRAN % (test code 0.60 % = 2460807682) LYMPH % (test code = 27.3 % 736-9) MONO % (test code = 8.8 % 5905-5) EOS % (test code = 3.0 % 713-8) BASO % (test code = 0.8 % 706-2) GRAN MAT x10^3(ANC) 3.70 10*3/uL 1.88-7.09 (test code = 9147443311) IMM GRAN x10^3 (test 0.04 10*3/uL 0.00-0.06 code = 7761454447) LYMPH x10^3 (test code 1.70 10*3/uL 1.32-3.29 = 731-0) MONO x10^3 (test code 0.55 10*3/uL 0.33-0.92 = 742-7) EOS x10^3 (test code = 0.19 10*3/uL 0.03-0.39 711-2) BASO x10^3 (test code 0.05 10*3/uL 0.01-0.07 = 704-7) Lab Interpretation Abnormal (test code = 26417-6) [facility] WITH [id number] 10:24:38 Test Item Value Reference Range Interpretation Comments WBC (test code = See_Comment [Automated 6090-2) message] The sy stem which generated this result transmitted reference range : 4.30 - 11.10 10*3/?L. The reference range was not used to interpret this result as normal/abnormal . RBC (test code = See_Comment [Automated 319-8) message] The sy stem which generated this result transmitted reference range : 3.93 - 5.25 10*6/?L. The reference range was not used to interpret this result as normal/abnormal . HGB (test code = 11.7 g/dL 11.6-15.0 718-7) HCT (test code = 35.8 % 35.7-45.2 4544-3) MCV (test code = 86.9 fL 80.6-95.5 787-2) MCH (test code = 28.4 pg 25.9-32.8 785-6) MCHC (test code = 32.7 g/dL 31.6-35.1 786-4) RDW-SD (test code = 41.6 fL 39.0-49.9 96842-3) RDW-CV (test code = 13.3 % 12.0-15.5 788-0) PLT (test code = See_Comment L [Automated 777-3) message] The sy stem which generated this result transmitted reference range : 166 - 358 10*3/ ?L. The reference r alexus was not used to interpret this result as normal/abnormal . MPV (test code = 10.2 fL 9.5-12.9 64674-7) IPF % (test code = 2.7 % 1.3-7.7 8390239121) NRBC/100 WBC (test See_Comment [Automat ed code = 3930812310) message] The system which generated this result transmitted reference range : 0.0 - 10.0 /100 WBCs. The refer ence range was not u sed to interpret th is result as normal/abnormal . NRBC x10^3 (test code <0.01 See_Comment [Auto mated = 1230308276) message] The s ystem which generated this result transmitted reference range : 10*3/?L. The reference range was not used to interpret this result as normal/abnormal . GRAN MAT (NEUT) % 59.5 % (test code = 770-8) IMM GRAN % (test code 0.60 % = 1060838645) LYMPH % (test code = 27.3 % 736-9) MONO % (test code = 8.8 % 5905-5) EOS % (test code = 3.0 % 713-8) BASO % (test code = 0.8 % 706-2) GRAN MAT x10^3(ANC) 3.70 10*3/uL 1.88-7.09 (test code = 9808919696) IMM GRAN x10^3 (test 0.04 10*3/uL 0.00-0.06 code = 9010781769) LYMPH x10^3 (test code 1.70 10*3/uL 1.32-3.29 = 731-0) MONO x10^3 (test code 0.55 10*3/uL 0.33-0.92 = 742-7) EOS x10^3 (test code = 0.19 10*3/uL 0.03-0.39 711-2) BASO x10^3 (test code 0.05 10*3/uL 0.01-0.07 = 704-7) Lab Interpretation Abnormal (test code = 51596-8) [facility] METABOLIC PANEL (NA, K, CL, CO2, GLUCOSE, BUN, CREATININE, CA)2021-01-23 10:18:59 Test Item Value Reference Range Interpretation Comments NA (test code = 136 mmol/L 135-145 0411925034) K (test code = 4.5 mmol/L 3.5-5.0 1565561387) CL (test code = 105 mmol/L 98-108 0244434999) CO2 TOTAL (test code = 24 mmol/L 23-31 6974457120) AGAP (test code = 2-16 9337175408) BUN (test code = 12 mg/dL 7-23 8379981302) GLUCOSE (test code = 176 mg/dL 70-110 H 2398983033) CREATININE (test code = 0.65 mg/dL 0.50-1.04 4344882161) CALCIUM (test code = 9.2 mg/dL 8.6-10.6 1956015302) eGFR (test code = mL/min/1.73m2 3128984076) CLARICE (test code = CLARICE) Association of Glomerular Filtration Rate (GFR) and Staging of Kidney Disease* + --+ --+ ------+| GFR (mL/min/1.73 m2) ?| With Kidney Damage ?| ?Without Kidney Damage+ --------+ --------+ +| ?>90 ?| ?Stage one ?| ? Normal ?+ ---+ ---+ -------+| ?60-89 ?| ?Stage two ?| ? Decreased GFR ? + --+ --+ ------+| ?30-59 ?| ?Stage three ?| ? Stage three ? + --+ --+ ------+| ?15-29 ?| ?Stage four ? | ? Stage four ?+ ---+ ---+ -------+| ?<15 (or dialysis) ? ?| ?Stage five ? | ? Stage five ?+ ---+ ---+ -------+ *Each stage assumes the associated GFR level has been in effect for at least three months. ?Stages 1 to 5, with or without kidney disease, indicate chronic kidney disease. Notes: Determination of stages one and two (with eGFR >59mL/min/1.73 m2) requires estimation of kidney damage for at least three months as defined by structural or functional abnormalities of the kidney, manifested by either:Pathological abnormalities or Markers of kidney damage (including abnormalities in the composition of the blood or urine or abnormalities in imaging tests). Lab Interpretation Abnormal (test code = 51925-4) [facility] METABOLIC PANEL (NA, K, CL, CO2, GLUCOSE, BUN, CREATININE, CA)2021-01-23 10:18:59 Test Item Value Reference Range Interpretation Comments NA (test code = 9298285820) 136 mmol/L 135-145 K (test code = 1489792018) 4.5 mmol/L 3.5-5.0 CL (test code = 3197435737) 105 mmol/L 98-108 CO2 TOTAL (test code = 6054470528) 24 mmol/L 23-31 AGAP (test code = 5193374038) 2-16 BUN (test code = 6293710774) 12 mg/dL 7-23 GLUCOSE (test code = 7375207651) 176 mg/dL 70-110 H CREATININE (test code = 0.65 mg/dL 0.50-1.04 5448132046) CALCIUM (test code = 2393432571) 9.2 mg/dL 8.6-10.6 eGFR (test code = 9417536178) mL/min/1.73m2 CLARICE (test code = CLARICE) Lab Interpretation (test code = Abnormal 36009-2) [facility] GLUCOSE (AUTOMATED)2021-01-23 01:32:46 Test Item Value Reference Range Interpretation Comments POCT GLU (test code = 4128352794) 140 mg/dL 70-110 H Lab Interpretation (test code = Abnormal 61243-4) [facility] GLUCOSE (AUTOMATED)2021-01-23 01:32:46 Test Item Value Reference Range Interpretation Comments POCT GLU (test code = 4897332556) 140 mg/dL 70-110 H Lab Interpretation (test code = Abnormal 05735-8) [facility] GLUCOSE (AUTOMATED)2021-01-22 21:40:24 Test Item Value Reference Range Interpretation Comments POCT GLU (test code = 5159978039) 139 mg/dL 70-110 H Lab Interpretation (test code = Abnormal 95613-3) [facility] GLUCOSE (AUTOMATED)2021-01-22 21:40:24 Test Item Value Reference Range Interpretation Comments POCT GLU (test code = 0645863717) 139 mg/dL 70-110 H Lab Interpretation (test code = Abnormal 95783-0) [facility] GLUCOSE (AUTOMATED)2021-01-22 18:00:29 Test Item Value Reference Range Interpretation Comments POCT GLU (test code = 3489139691) 216 mg/dL 70-110 H Lab Interpretation (test code = Abnormal 70240-7) [facility] GLUCOSE (AUTOMATED)2021-01-22 18:00:29 Test Item Value Reference Range Interpretation Comments POCT GLU (test code = 8295312077) 216 mg/dL 70-110 H Lab Interpretation (test code = Abnormal 53908-3) [facility] GLUCOSE (AUTOMATED)2021-01-22 13:28:29 Test Item Value Reference Range Interpretation Comments POCT GLU (test code = 3776016788) 200 mg/dL 70-110 H Lab Interpretation (test code = Abnormal 06234-2) [facility] GLUCOSE (AUTOMATED)2021-01-22 13:28:29 Test Item Value Reference Range Interpretation Comments POCT GLU (test code = 0155286214) 200 mg/dL 70-110 H Lab Interpretation (test code = Abnormal 84718-5) [facility] Metabolic Panel (NA, K, CL, CO2, GLUCOSE, BUN, CREATININE, CA)2021-01-22 09:27:44 Test Item Value Reference Range Interpretation Comments NA (test code = 137 mmol/L 135-145 7365736298) K (test code = 4.2 mmol/L 3.5-5.0 8463809006) CL (test code = 108 mmol/L 98-108 1455244751) CO2 TOTAL (test code = 26 mmol/L 23-31 8947184963) AGAP (test code = 2-16 1552790106) BUN (test code = 11 mg/dL 7-23 8150059793) GLUCOSE (test code = 161 mg/dL 70-110 H 3915309338) CREATININE (test code = 0.63 mg/dL 0.50-1.04 8658721267) CALCIUM (test code = 8.5 mg/dL 8.6-10.6 L 8409450700) eGFR (test code = mL/min/1.73m2 3535788654) CLARICE (test code = CLARICE) Association of Glomerular Filtration Rate (GFR) and Staging of Kidney Disease* + --+ --+ ------+| GFR (mL/min/1.73 m2) ?| With Kidney Damage ?| ?Without Kidney Damage+ --------+ --------+ +| ?>90 ?| ?Stage one ?| ? Normal ?+ ---+ ---+ -------+| ?60-89 ?| ?Stage two ?| ? Decreased GFR ? + --+ --+ ------+| ?30-59 ?| ?Stage three ?| ? Stage three ? + --+ --+ ------+| ?15-29 ?| ?Stage four ? | ? Stage four ?+ ---+ ---+ -------+| ?<15 (or dialysis) ? ?| ?Stage five ? | ? Stage five ?+ ---+ ---+ -------+ *Each stage assumes the associated GFR level has been in effect for at least three months. ?Stages 1 to 5, with or without kidney disease, indicate chronic kidney disease. Notes: Determination of stages one and two (with eGFR >59mL/min/1.73 m2) requires estimation of kidney damage for at least three months as defined by structural or functional abnormalities of the kidney, manifested by either:Pathological abnormalities or Markers of kidney damage (including abnormalities in the composition of the blood or urine or abnormalities in imaging tests). Lab Interpretation Abnormal (test code = 15308-0) [facility] Metabolic Panel (NA, K, CL, CO2, GLUCOSE, BUN, CREATININE, CA)2021-01-22 09:27:44 Test Item Value Reference Range Interpretation Comments NA (test code = 0670523917) 137 mmol/L 135-145 K (test code = 2494542668) 4.2 mmol/L 3.5-5.0 CL (test code = 4882033819) 108 mmol/L 98-108 CO2 TOTAL (test code = 8756262978) 26 mmol/L 23-31 AGAP (test code = 1176148989) 2-16 BUN (test code = 2519791160) 11 mg/dL 7-23 GLUCOSE (test code = 8808783431) 161 mg/dL 70-110 H CREATININE (test code = 0.63 mg/dL 0.50-1.04 1742109480) CALCIUM (test code = 2996798679) 8.5 mg/dL 8.6-10.6 L eGFR (test code = 6142461377) mL/min/1.73m2 CLARICE (test code = CLARICE) Lab Interpretation (test code = Abnormal 80494-6) [facility] with [id number] 09:15:44 Test Item Value Reference Range Interpretation Comments WBC (test code = See_Comment [Automated 5545-2) message] The sy stem which generated this result transmitted reference range : 4.30 - 11.10 10*3/?L. The reference range was not used to interpret this result as normal/abnormal . RBC (test code = See_Comment L [Automated 549-8) message] The sy stem which generated this result transmitted reference range : 3.93 - 5.25 10*6/?L. The reference range was not used to interpret this result as normal/abnormal . HGB (test code = 11.2 g/dL 11.6-15.0 L 718-7) HCT (test code = 33.8 % 35.7-45.2 L 4544-3) MCV (test code = 86.4 fL 80.6-95.5 787-2) MCH (test code = 28.6 pg 25.9-32.8 785-6) MCHC (test code = 33.1 g/dL 31.6-35.1 786-4) RDW-SD (test code = 42.1 fL 39.0-49.9 89148-0) RDW-CV (test code = 13.4 % 12.0-15.5 788-0) PLT (test code = See_Comment [Automated 777-3) message] The sy stem which generated this result transmitted reference range : 166 - 358 10*3/ ?L. The reference r alexus was not used to interpret this result as normal/abnormal . MPV (test code = 9.4 fL 9.5-12.9 L 00718-2) NRBC/100 WBC (test See_Comment [Automat ed code = 5051479624) message] The system which generated this result transmitted reference range : 0.0 - 10.0 /100 WBCs. The refer ence range was not u sed to interpret th is result as normal/abnormal . NRBC x10^3 (test code <0.01 See_Comment [Auto mated = 7728926902) message] The s ystem which generated this result transmitted reference range : 10*3/?L. The reference range was not used to interpret this result as normal/abnormal . GRAN MAT (NEUT) % 52.5 % (test code = 770-8) IMM GRAN % (test code 0.60 % = 5669171346) LYMPH % (test code = 31.2 % 736-9) MONO % (test code = 11.2 % 5905-5) EOS % (test code = 3.5 % 713-8) BASO % (test code = 1.0 % 706-2) GRAN MAT x10^3(ANC) 2.58 10*3/uL 1.88-7.09 (test code = 6629268083) IMM GRAN x10^3 (test 0.03 10*3/uL 0.00-0.06 code = 5026360383) LYMPH x10^3 (test code 1.53 10*3/uL 1.32-3.29 = 731-0) MONO x10^3 (test code 0.55 10*3/uL 0.33-0.92 = 742-7) EOS x10^3 (test code = 0.17 10*3/uL 0.03-0.39 711-2) BASO x10^3 (test code 0.05 10*3/uL 0.01-0.07 = 704-7) Lab Interpretation Abnormal (test code = 21461-7) [facility] with [id number] 09:15:44 Test Item Value Reference Range Interpretation Comments WBC (test code = See_Comment [Automated 6690-2) message] The sy stem which generated this result transmitted reference range : 4.30 - 11.10 10*3/?L. The reference range was not used to interpret this result as normal/abnormal . RBC (test code = See_Comment L [Automated 789-8) message] The sy stem which generated this result transmitted reference range : 3.93 - 5.25 10*6/?L. The reference range was not used to interpret this result as normal/abnormal . HGB (test code = 11.2 g/dL 11.6-15.0 L 718-7) HCT (test code = 33.8 % 35.7-45.2 L 4544-3) MCV (test code = 86.4 fL 80.6-95.5 787-2) MCH (test code = 28.6 pg 25.9-32.8 785-6) MCHC (test code = 33.1 g/dL 31.6-35.1 786-4) RDW-SD (test code = 42.1 fL 39.0-49.9 05531-0) RDW-CV (test code = 13.4 % 12.0-15.5 788-0) PLT (test code = See_Comment [Automated 777-3) message] The sy stem which generated this result transmitted reference range : 166 - 358 10*3/ ?L. The reference r alexus was not used to interpret this result as normal/abnormal . MPV (test code = 9.4 fL 9.5-12.9 L 76197-8) NRBC/100 WBC (test See_Comment [Automat ed code = 2402957142) message] The system which generated this result transmitted reference range : 0.0 - 10.0 /100 WBCs. The refer ence range was not u sed to interpret th is result as normal/abnormal . NRBC x10^3 (test code <0.01 See_Comment [Auto mated = 4579336370) message] The s ystem which generated this result transmitted reference range : 10*3/?L. The reference range was not used to interpret this result as normal/abnormal . GRAN MAT (NEUT) % 52.5 % (test code = 770-8) IMM GRAN % (test code 0.60 % = 6558304939) LYMPH % (test code = 31.2 % 736-9) MONO % (test code = 11.2 % 5905-5) EOS % (test code = 3.5 % 713-8) BASO % (test code = 1.0 % 706-2) GRAN MAT x10^3(ANC) 2.58 10*3/uL 1.88-7.09 (test code = 6205491018) IMM GRAN x10^3 (test 0.03 10*3/uL 0.00-0.06 code = 1077203098) LYMPH x10^3 (test code 1.53 10*3/uL 1.32-3.29 = 731-0) MONO x10^3 (test code 0.55 10*3/uL 0.33-0.92 = 742-7) EOS x10^3 (test code = 0.17 10*3/uL 0.03-0.39 711-2) BASO x10^3 (test code 0.05 10*3/uL 0.01-0.07 = 704-7) Lab Interpretation Abnormal (test code = 37579-7) [facility] GLUCOSE (AUTOMATED)2021-01-22 01:48:46 Test Item Value Reference Range Interpretation Comments POCT GLU (test code = 1118795503) 218 mg/dL 70-110 H Lab Interpretation (test code = Abnormal 23681-3) [facility] GLUCOSE (AUTOMATED)2021-01-22 01:48:46 Test Item Value Reference Range Interpretation Comments POCT GLU (test code = 1110843129) 218 mg/dL 70-110 H Lab Interpretation (test code = Abnormal 96772-4) [facility] [id number] 00:23:56No acute or adverse change compared to the prior exam. AFC: 39239.RL: 8228, I can be reached at [phone]. Ordering Physician: Carmen Brennan History: Shortness of breath. Comparison Study: Chest x-ray dated 01/20/2021. Technique: Single view of the chest. The technical quality of the study isadequate. Findings: Lungs: No signs of consolidation, effusion or pneumothorax. Mediastinum: Cardiac and mediastinal silhouettes are stable. Soft tissues and bones: Lower cervical spine fusion plate. [facility], Radiant Results Inft User - 01/21/2021 7:25 PM CDT Ordering Physician: Carmen BrennanHistory: Shortness of breath.Comparison Study: Chest x-ray dated 01/20/2021.Technique: Single view of the chest. The technical quality of the study isadequate.Findings: Lungs: No signs of consolidation, effusion or pneumothorax. Mediastinum: Cardiac and mediastinal silhouettes are stable. Soft tissues and bones: Lower cervical spine fusion plate.IMPRESSIONNo acute or adverse change compared to the prior exam.AFC: 41753.RL: 8228, I can be reached at [phone]. [facility] [id number] 00:23:56No acute or adverse change compared to the prior exam. AFC: 96615.RL: 8228, I can be reached at [phone]. Ordering Physician: Carmen Brennan History: Shortness of breath. Comparison Study: Chest x-ray dated 01/20/2021. Technique: Single view of the chest. The technical quality of the study isadequate. Findings: Lungs: No signs of consolidation, effusion or pneumothorax. Mediastinum: Cardiac and mediastinal silhouettes are stable. Soft tissues and bones: Lower cervical spine fusion plate. [facility], Radiant Results Inft User - 01/21/2021 7:25 PM CDT Ordering Physician: Carmen BrennanHistory: Shortness of breath.Comparison Study: Chest x-ray dated 01/20/2021.Technique: Single view of the chest. The technical quality of the study isadequate.Findings: Lungs: No signs of consolidation, effusion or pneumothorax. Mediastinum: Cardiac and mediastinal silhouettes are stable. Soft tissues and bones: Lower cervical spine fusion plate.IMPRESSIONNo acute or adverse change compared to the prior exam.AFC: 66922.RL: 8228, I can be reached at [phone]. [facility] GLUCOSE (AUTOMATED)2021-01-21 22:25:03 Test Item Value Reference Range Interpretation Comments POCT GLU (test code = 6914946430) 104 mg/dL 70-110 Lab Interpretation (test code = Normal 79850-9) [facility] GLUCOSE (AUTOMATED)2021-01-21 22:25:03 Test Item Value Reference Range Interpretation Comments POCT GLU (test code = 7824158570) 186 mg/dL 70-110 H Lab Interpretation (test code = Abnormal 61538-9) [facility] GLUCOSE (AUTOMATED)2021-01-21 22:25:03 Test Item Value Reference Range Interpretation Comments POCT GLU (test code = 8980691180) 104 mg/dL 70-110 Lab Interpretation (test code = Normal 61667-0) [facility] GLUCOSE (AUTOMATED)2021-01-21 22:25:03 Test Item Value Reference Range Interpretation Comments POCT GLU (test code = 3461462070) 186 mg/dL 70-110 H Lab Interpretation (test code = Abnormal 17634-1) [facility] GLUCOSE (AUTOMATED)2021-01-21 22:25:02 Test Item Value Reference Range Interpretation Comments POCT GLU (test code = 8799726533) 81 mg/dL 70-110 Lab Interpretation (test code = Normal 94763-1) [facility] [facility] GLUCOSE (AUTOMATED)2021-01-21 22:25:02 Test Item Value Reference Range Interpretation Comments POCT GLU (test code = 3045032442) 81 mg/dL 70-110 Lab Interpretation (test code = Normal 56527-6) [facility] GLUCOSE (AUTOMATED)2021-01-21 22:24:57 Test Item Value Reference Range Interpretation Comments POCT GLU (test code = 8186402792) 205 mg/dL 70-110 H Lab Interpretation (test code = Abnormal 12340-1) [facility] GLUCOSE (AUTOMATED)2021-01-21 22:24:57 Test Item Value Reference Range Interpretation Comments POCT GLU (test code = 5754944063) 205 mg/dL 70-110 H Lab Interpretation (test code = Abnormal 16294-8) [facility] [id number] 16:24:55 No intracranial proximal large vessel occlusion. No significant extracranial stenosis. EXAMINATION:?CT ANGIOGRAM HEAD, CT ANGIOGRAM NECK HISTORY: Dizziness, non-specific TECHNIQUE: CT angiography of the brain was performed and reviewed inmultiple planes. Two dimensional multiplanar reformatted images weregenerated and submitted to PACS. CT angiography of the neck was performedusing 1 mm thick axialslices and reviewed in multiple planes. Twodimensional multiplanar reformatted images were generatedand submitted toPACS. A total of 100 mL Isovue was injected intravenously. ? COMPARISON: None. FINDINGS: CTA of the [place] reveals no intracranial proximal large vesselocclusion. Mild V4 segment atherosclerosis. No CT-identifiable aneurysm ispresent. ?Conventional angiography is more sensitive for the detection ofsmall aneurysms. There is contrast opacification of the dural venoussinuses. CTA of the neck demonstrates that the origins of the great vessels arewidely patent. Patent left proximal subclavian artery stent. Conventionalaortic arch anatomy. There is no significant extracranial stenosis. ?Mildcarotid bifurcation atherosclerosis with less than 50% stenosis of theproximal internal carotid arteries. Mild atherosclerosis at the origin ofthe right vertebral artery. No aneurysm is seen. Tortuosity of the cervicalinternal carotid arteries. ACDF hardware. No dominant thyroid nodule. [facility], Radiant Results Inft User - 01/21/2021 11:26 AM CDT EXAMINATION: CT ANGIOGRAM HEAD, CT ANGIOGRAM NECKHISTORY: Dizziness, non-specific TECHNIQUE: CT angiography of the brain was performed and reviewed inmultiple planes. Two dimensional multiplanar reformatted images weregenerated and submitted to PACS. CT angiography of the neck was performedusing 1 mm thick axial slices and reviewed in multiple planes. Twodimensional multiplanar reformatted images were generated and submitted toPACS. A total of 100 mL Isovue was injected intravenously. COMPARISON: None.FINDINGS: CTA of the [place] reveals no intracranial proximal large vesselocclusion. Mild V4 segment atherosclerosis. No CT-identifiable aneurysm ispresent. Conventional angiography is more sensitive for the detection ofsmall aneurysms. There is contrast opacification of the du ral venoussinuses.CTA of the neck demonstrates that the origins of the great vessels arewidely patent. Patent left proximal subclavian artery stent. Conventionalaortic arch anatomy. There is no significant extracranial stenosis. Mildcarotid bifurcation atherosclerosis with less than 50% stenosis of the proximal internal carotid arteries. Mild atherosclerosis at the origin ofthe right vertebral artery.No aneurysm is seen. Tortuosity of the cervicalinternal carotid arteries.ACDF hardware. No dominant thyroid nodule.IMPRESSIONNo intracranial proximal large vessel occlusion.No significant extracranial s tenosis.[facility] [id number] 16:24:55 No intracranial proximal large vessel occlusion. No significant extracranial stenosis. EXAMINATION:?CT ANGIOGRAM HEAD, CT ANGIOGRAM NECK HISTORY: Dizziness, non-specific TECHNIQUE: CT angiography of the brain was performed and reviewed inmultiple planes. Two dimensional multiplanar reformatted images weregenerated and submitted to PACS. CT angiography of the neck was performedusing 1 mm thick axialslices and reviewed in multiple planes. Twodimensional multiplanar reformatted images were generatedand submitted toPACS. A total of 100 mL Isovue was injected intravenously. ? COMPARISON: None. FINDINGS: CTA of the [place] reveals no intracranial proximal large vesselocclusion. Mild V4 segment atherosclerosis. No CT-identifiable aneurysm ispresent. ?Conventional angiography is more sensitive for the detection ofsmall aneurysms. There is contrast opacification of the dural venoussinuses. CTA of the neck demonstrates that the origins of the great vessels arewidely patent. Patent left proximal subclavian artery stent. Conventionalaortic arch anatomy. There is no significant extracranial stenosis. ?Mildcarotid bifurcation atherosclerosis with less than 50% stenosis of theproximal internal carotid arteries. Mild atherosclerosis at the origin ofthe right vertebral artery. No aneurysm is seen. Tortuosity of the cervicalinternal carotid arteries. ACDF hardware. No dominant thyroid nodule. [facility], Radiant Results Inft User - 01/21/2021 11:26 AM CDT EXAMINATION: CT ANGIOGRAM HEAD, CT ANGIOGRAM NECKHISTORY: Dizziness, non-specific TECHNIQUE: CT angiography of the brain was performed and reviewed inmultiple planes. Two dimensional multiplanar reformatted images weregenerated and submitted to PACS. CT angiography of the neck was performedusing 1 mm thick axial slices and reviewed in multiple planes. Twodimensional multiplanar reformatted images were generated and submitted toPACS. A total of 100 mL Isovue was injected intravenously. COMPARISON: None.FINDINGS: CTA of the [place] reveals no intracranial proximal large vesselocclusion. Mild V4 segment atherosclerosis. No CT-identifiable aneurysm ispresent. Conventional angiography is more sensitive for the detection ofsmall aneurysms. There is contrast opacification of the du ral venoussinuses.CTA of the neck demonstrates that the origins of the great vessels arewidely patent. Patent left proximal subclavian artery stent. Conventionalaortic arch anatomy. There is no significant extracranial stenosis. Mildcarotid bifurcation atherosclerosis with less than 50% stenosis of the proximal internal carotid arteries. Mild atherosclerosis at the origin ofthe right vertebral artery.No aneurysm is seen. Tortuosity of the cervicalinternal carotid arteries.ACDF hardware. No dominant thyroid nodule.IMPRESSIONNo intracranial proximal large vessel occlusion.No significant extracranial s tenosis.[facility] [id number] 16:24:55 No intracranial proximal large vessel occlusion. No significant extracranial stenosis. EXAMINATION:?CT ANGIOGRAM HEAD, CT ANGIOGRAM NECK HISTORY: Dizziness, non-specific TECHNIQUE: CT angiography of the brain was performed and reviewed inmultiple planes. Two dimensional multiplanar reformatted images weregenerated and submitted to PACS. CT angiography of the neck was performedusing 1 mm thick axialslices and reviewed in multiple planes. Twodimensional multiplanar reformatted images were generatedand submitted toPACS. A total of 100 mL Isovue was injected intravenously. ? COMPARISON: None. FINDINGS: CTA of the [place] reveals no intracranial proximal large vesselocclusion. Mild V4 segment atherosclerosis. No CT-identifiable aneurysm ispresent. ?Conventional angiography is more sensitive for the detection ofsmall aneurysms. There is contrast opacification of the dural venoussinuses. CTA of the neck demonstrates that the origins of the great vessels arewidely patent. Patent left proximal subclavian artery stent. Conventionalaortic arch anatomy. There is no significant extracranial stenosis. ?Mildcarotid bifurcation atherosclerosis with less than 50% stenosis of theproximal internal carotid arteries. Mild atherosclerosis at the origin ofthe right vertebral artery. No aneurysm is seen. Tortuosity of the cervicalinternal carotid arteries. ACDF hardware. No dominant thyroid nodule. [facility], Radiant Results Inft User - 01/21/2021 11:26 AM CDT EXAMINATION: CT ANGIOGRAM HEAD, CT ANGIOGRAM NECKHISTORY: Dizziness, non-specific TECHNIQUE: CT angiography of the brain was performed and reviewed inmultiple planes. Two dimensional multiplanar reformatted images weregenerated and submitted to PACS. CT angiography of the neck was performedusing 1 mm thick axial slices and reviewed in multiple planes. Twodimensional multiplanar reformatted images were generated and submitted toPACS. A total of 100 mL Isovue was injected intravenously. COMPARISON: None.FINDINGS: CTA of the [place] reveals no intracranial proximal large vesselocclusion. Mild V4 segment atherosclerosis. No CT-identifiable aneurysm ispresent. Conventional angiography is more sensitive for the detection ofsmall aneurysms. There is contrast opacification of the du ral venoussinuses.CTA of the neck demonstrates that the origins of the great vessels arewidely patent. Patent left proximal subclavian artery stent. Conventionalaortic arch anatomy. There is no significant extracranial stenosis. Mildcarotid bifurcation atherosclerosis with less than 50% stenosis of the proximal internal carotid arteries. Mild atherosclerosis at the origin ofthe right vertebral artery.No aneurysm is seen. Tortuosity of the cervicalinternal carotid arteries.ACDF hardware. No dominant thyroid nodule.IMPRESSIONNo intracranial proximal large vessel occlusion.No significant extracranial s tenosis.[facility] [id number] 16:24:55 No intracranial proximal large vessel occlusion. No significant extracranial stenosis. EXAMINATION:?CT ANGIOGRAM HEAD, CT ANGIOGRAM NECK HISTORY: Dizziness, non-specific TECHNIQUE: CT angiography of the brain was performed and reviewed inmultiple planes. Two dimensional multiplanar reformatted images weregenerated and submitted to PACS. CT angiography of the neck was performedusing 1 mm thick axialslices and reviewed in multiple planes. Twodimensional multiplanar reformatted images were generatedand submitted toPACS. A total of 100 mL Isovue was injected intravenously. ? COMPARISON: None. FINDINGS: CTA of the [place] reveals no intracranial proximal large vesselocclusion. Mild V4 segment atherosclerosis. No CT-identifiable aneurysm ispresent. ?Conventional angiography is more sensitive for the detection ofsmall aneurysms. There is contrast opacification of the dural venoussinuses. CTA of the neck demonstrates that the origins of the great vessels arewidely patent. Patent left proximal subclavian artery stent. Conventionalaortic arch anatomy. There is no significant extracranial stenosis. ?Mildcarotid bifurcation atherosclerosis with less than 50% stenosis of theproximal internal carotid arteries. Mild atherosclerosis at the origin ofthe right vertebral artery. No aneurysm is seen. Tortuosity of the cervicalinternal carotid arteries. ACDF hardware. No dominant thyroid nodule. [facility], Radiant Results Inft User - 01/21/2021 11:26 AM CDT EXAMINATION: CT ANGIOGRAM HEAD, CT ANGIOGRAM NECKHISTORY: Dizziness, non-specific TECHNIQUE: CT angiography of the brain was performed and reviewed inmultiple planes. Two dimensional multiplanar reformatted images weregenerated and submitted to PACS. CT angiography of the neck was performedusing 1 mm thick axial slices and reviewed in multiple planes. Twodimensional multiplanar reformatted images were generated and submitted toPACS. A total of 100 mL Isovue was injected intravenously. COMPARISON: None.FINDINGS: CTA of the [place] reveals no intracranial proximal large vesselocclusion. Mild V4 segment atherosclerosis. No CT-identifiable aneurysm ispresent. Conventional angiography is more sensitive for the detection ofsmall aneurysms. There is contrast opacification of the du ral venoussinuses.CTA of the neck demonstrates that the origins of the great vessels arewidely patent. Patent left proximal subclavian artery stent. Conventionalaortic arch anatomy. There is no significant extracranial stenosis. Mildcarotid bifurcation atherosclerosis with less than 50% stenosis of the proximal internal carotid arteries. Mild atherosclerosis at the origin ofthe right vertebral artery.No aneurysm is seen. Tortuosity of the cervicalinternal carotid arteries.ACDF hardware. No dominant thyroid nodule.IMPRESSIONNo intracranial proximal large vessel occlusion.No significant extracranial s tenosis.[facility] (NA, K, CL, CO2, GLUCOSE, BUN, CREATININE, CA)2021-01-21 15:03:17 Test Item Value Reference Range Interpretation Comments NA (test code = 137 mmol/L 135-145 [id number]) K (test code = 4.3 mmol/L 3.5-5.0 8245366075) CL (test code = 102 mmol/L 98-108 8006336841) CO2 TOTAL (test code 25 mmol/L 23-31 = 0476903517) AGAP (test code = 2-16 5605010990) BUN (test code = 15 mg/dL 7-23 0330171639) GLUCOSE (test code = 101 mg/dL 70-110 3819371175) CREATININE (test code 0.67 mg/dL 0.50-1.04 = 1466903862) CALCIUM (test code = 9.2 mg/dL 8.6-10.6 6857824415) eGFR (test code = mL/min/1.73m2 0339165104) CLARICE (test code = CLARICE) Association of Glomerular Filtration Rate (GFR) and Staging of Kidney Disease* + + +- +| GFR (mL/min/1.73 m2) ?| With Kidney Damage ?| ?Without Kidney Damage+ ------+ ----+ ------+| ?>90 ?| ?Stage one ?| ? Normal ?+ -+ + -+| ?60-89 ?| ?Stage two ?| ? Decreased GFR ? + + +- +| ?30-59 ?| ?Stage three ?| ? Stage three ? + + +- +| ?15-29 ?| ?Stage four ? | ? Stage four ?+ -+ + -+| ?<15 (or dialysis) ? ?| ?Stage five ? | ? Stage five ?+ -+ + -+ *Each stage assumes the associated GFR level has been in effect for at least three months. ?Stages 1 to 5, with or without kidney disease, indicate chronic kidney disease. Notes: Determination of stages one and two (with eGFR >59mL/min/1.73 m2) requires estimation of kidney damage for at least three months as defined by structural or functional abnormalities of the kidney, manifested by either:Pathological abnormalities or Markers of kidney damage (including abnormalities in the composition of the blood or urine or abnormalities in imaging tests). [facility] METABOLIC PANEL (NA, K, CL, CO2, GLUCOSE, BUN, CREATININE, CA)2021-01-21 15:03:17 Test Item Value Reference Range Interpretation Comments NA (test code = 8156851057) 137 mmol/L 135-145 K (test code = 8070599074) 4.3 mmol/L 3.5-5.0 CL (test code = 6611521426) 102 mmol/L 98-108 CO2 TOTAL (test code = 1819079744) 25 mmol/L 23-31 AGAP (test code = 6285935803) 2-16 BUN (test code = 1369729708) 15 mg/dL 7-23 GLUCOSE (test code = 3445503998) 101 mg/dL 70-110 CREATININE (test code = 0.67 mg/dL 0.50-1.04 8438391589) CALCIUM (test code = 3380989258) 9.2 mg/dL 8.6-10.6 eGFR (test code = 0566412772) mL/min/1.73m2 CLARICE (test code = CLARICE) [facility] GLUCOSE (AUTOMATED)2021-01-21 13:20:02 Test Item Value Reference Range Interpretation Comments POCT GLU (test code = 7677104302) 224 mg/dL 70-110 H Lab Interpretation (test code = Abnormal 44654-4) [facility] GLUCOSE (AUTOMATED)2021-01-21 13:20:02 Test Item Value Reference Range Interpretation Comments POCT GLU (test code = 9250506374) 224 mg/dL 70-110 H Lab Interpretation (test code = Abnormal 83561-0) [facility] [id number] 12:28:29 Test Item Value Reference Range Interpretation Comments TSH (test code = See_Comment Biotin has been 0481788156) reported to cau se a negative bias, interpret resul ts relative to pat ient's use of biotin. [Automated mess age] The system [employer] generated this result transmitted ref erence range: 0.45 - 4 .70 mIU/L. The refe rence range was not u sed to interpret this result as normal/abnor mal. Lab Interpretation (test Normal code = 85648-5) [facility] [id number] 12:28:29 Test Item Value Reference Range Interpretation Comments TSH (test code = See_Comment [Automated message] [id number]) The system [employer] generated this result transmitted ref erence range: 0.45 - 4 .70 mIU/L. The refe rence range was not u sed to interpret this result as normal/abnor mal. Lab Interpretation (test Normal code = 57847-2) [facility] HospitalLactic Acid Whole [id number] 09:09:36 Test Item Value Reference Range Interpretation Comments LACTIC ACID (test code = 2.13 mmol/L 0.50-2.20 1177563007) Lab Interpretation (test code = Normal 43832-9) [facility] Hospital[facility] Whole [id number] 09:09:36 Test Item Value Reference Range Interpretation Comments LACTIC ACID (test code = 2.13 mmol/L 0.50-2.20 4869303662) Lab Interpretation (test code = Normal 44309-7) [facility] COVID [id number] 02:31:30COVID DMT InterpretationInterpretation/Recommendations:Molecular NAAT Tests for Active Infection with the SARS-CoV-2 Virus:The patient has currently tested negative for the SARS-CoV-2 virus that causesCOVID-19 illness. This most likely indicates that the patient does not have an active infection withthe SARS-CoV-2 virus. However, infection is not completely ruled out as the false negative rate for molecular NAAT testing using a nasopharyngeal sample can be up to 30%, mostly dependent on the timingof sample collection in relation to illness onset and any deficiencies in sampling techniques. If the patient has symptoms concerning for COVID-19 illness, a repeat NAAT test (PCR, Rapid ID Now, etc.) should be performed, at which time the SARS-CoV-2 virus if present may have reached a detectable viral load (usually peaking by the end of the first week of symptoms). Tests for IgM and/or IgG Antibodies to the SARS-CoV-2 Virus:Testing for IgM and IgG antibodies approximately 3 weeks after illness onset will likely indicate if the patient has produced antibodies to the SARS-CoV-2 virus. However, some patients may take longer to develop detectable antibodies, while others infected with SARS-CoV-2 may never develop antibodies, particularly those who have had mild or asymptomatic illness. Of note, if the patient has been vaccinated earlier than 1-2 weeks prior to antibody testing, any vznzxpvmWNJZ-NwP-2 IgG antibody result is likely due to vaccination. The specific duration and strength of immunity from SARS-CoV-2 IgG antibodies is highly variable between individuals and is dependent on a variety of factors, including infection vs. vaccination response, initial infection severity, the strength of the patient's own immune system, and the variants to which the patient has been exposed. ? --- Interpretation Result Comments:These interpretation comments are based upon all COVID-19 testing the patient has had at [facility], including molecular NAAT testing (more commonly known as PCR testing and Rapid ID Now testing) and antibody testing. It does not take into account any testing that a patient has had outside of the [facility] medical record. [facility] LABORATORY SERVICESCOVID [id number] Rapid ID NOW (no units) ? ? Date ? Value ? 01/20/2021 ? Not Detected ? ? ? 09/20/2019 ? Not Detected ? [facility]LAB ONLY COVID [id number] 02:31:30COVID DMT InterpretationInterpretation/Recommendations:Molecular NAAT Tests for Active Infection with the SARS-CoV-2 Virus:The patient has currently tested negative for the SARS-CoV-2 virus that causesCOVID-19 illness. This most likely indicates that the patient does not have an active infection withthe SARS-CoV-2 virus. However, infection is not completely ruled out as the false negative rate for m olecular NAAT testing using a nasopharyngeal sample can be up to 30%, mostly dependent on the timingof sample collection in relation to illness onset and any deficiencies in sampling techniques. If the patient has symptoms concerning for COVID-19 illness, a repeat NAAT test (PCR, Rapid ID Now, etc.) should be performed, at which time the SARS-CoV-2 virus if present may have reached a detectable viral load (usually peaking by the end of the first week of symptoms). Tests for IgM and/or IgG Antibodies to the SARS-CoV-2 Virus:Testing for IgM and IgG antibodies approximately 3 weeks after illness onset will likely indicate if the patient has produced antibodies to the SARS-CoV-2 virus. However , some patients may take longer to develop detectable antibodies, while others infected with SARS-CoV-2 may never develop antibodies, particularly those who have had mild or asymptomatic illness. Of note, if the patient has been vaccinated earlier than 1-2 weeks prior to antibody testing, any positive SARS-CoV-2 IgG antibody result is likely due to vaccination. The specific duration and strength of immunity from SARS-CoV-2 IgG antibodies is highly variable between individuals and is dependent on a variety of factors, including infection vs. vaccination response, initial infection severity, the strength of the patient's own immune system, and the variants to which the patient has been exposed. ? --- Interpretation Result Comments:These interpretation comments are based upon all COVID-19 testing the patient has had at [facility], including molecular NAAT testing (more commonly known as PCR testing and Rapid ID Now testing) and antibody testing. It does not take into account any testing that a patient has had outside of the [facility] medical record. [facility] LABORATORY SERVICESCOVID [id number] Rapid ID NOW (no units) ? ? Date ? Value ? 01/20/2021 ? Not Detected ? ? ? 09/20/2019 ? Not Detected ? [facility] SERVICESUnCH[facility] CenterXR CHEST 1 [id number] 02:12:27Impression: No acute abnormalities evident. RL: 460 Ordering physician: SERGEY CHAPIN History: Short of breath Technique: Chest, single view Technical quality: Adequate Comparison: September 20, 2019 Findings: The lungs are clear. No pleuraleffusions are evident. Heart size isnormal. The superior mediastinal silhouette is unremarkable for age andprojection. There are degenerative changes of the shoulders and spine. Thepatient is again noted to be status post cervical fusion. [facility], Radiant Results Inft User - 01/20/2021 9:13 PM CDT Ordering physician: SERGEY Penalozatory: Short of breathTechnique: Chest, single viewTechnical quality: AdequateComparison: September 20, 2019Findings: The lungs are clear. No pleural effusions are evident. Heart size isnormal. The superior mediastinal silhouette is unremarkable for age andprojection. There are degenerative changes of the shoulders and spine. Thepatient is again noted to be status post cervical fusion.IMPRESSIONImpression:No acute abnormalities evident.RL: 460 [facility] 1 [id number] 02:12:27Impression: No acute abnormalities evident. RL: 460 Ordering physician: SERGEY CHAPIN History: Short of breath Technique: Chest, single view Technical quality: Adequate Comparison: September 20, 2019 Findings: The lungs are clear. No pleuraleffusions are evident. Heart size isnormal. The superior mediastinal silhouette is unremarkable for age andprojection. There are degenerative changes of the shoulders and spine. Thepatient is again noted to be status post cervical fusion. [facility], Radiant Results Inft User - 01/20/2021 9:13 PM CDT Ordering physician: SERGEY SINGERHistory: Short of breathTechnique: Chest, single viewTechnical quality: AdequateComparison: September 20, 2019Findings: The lungs are clear. No pleural effusions are evident. Heart size isnormal. The superior mediastinal silhouette is unremarkable for age andprojection. There are degenerative changes of the shoulders and spine. Thepatient is again noted to be status post cervical fusion.IMPRESSIONImpression:No acute abnormalities evident.RL: [address] [facility] CenterCT ABDOMEN PELVIS W [id number] 02:03:44Impression: 1. No prior studies available.2. Cholecystectomy and postoperative changes of the liver.3. Multiple hepatic cysts, with additional low-attenuation hepatic lesionstoo small to characterize.4. Peripherally calcified exophytic lesion of the left hepatic lobemeasures greater than water attenuation. This may reflect a calcifiedhyperdense cyst, but a solid mass cannot be excluded. Comparison to priorstudies would be of value.5. Mild pancreatic atrophy.6. Renal cysts and right renal cortical scarring.7. Atherosclerosis.8. Uterine leiomyomas.9. Moderate colonic fecal retention. RL: 460 End of Report Ordering Physician: MARCIAL VAUGHAN History: Epigastric pain Technique: CT abdomen and pelvis with intravenous contrast. Thisexamination was performed according to ALARA principles. Technical quality: Adequate Comparison: None available. Findings: The patient is status post cholecystectomy and partial resection of theright hepatic lobe. Hepatic cysts are present. The largest of thesemeasures 8.3 cm. Additional low- attenuation hepatic lesions are too smallto characterize. There is a peripherally calcified exophytic lesion of theleft hepatic lobe, measuring approximately 2.2 cm. This measures greaterthan water attenuation and may be solid. The portal veins are patent.Hepatic veins also appear patent. No biliary dilatation is evident. Thespleen is unremarkable in appearance. The pancreas is slightly atrophic. Noadrenal abnormalities are evident. There is right renal cortical scarring.Renal cortical and parapelvic cysts are present. Evaluation of the stomach is limited by lack of distention, but no grossgastric abnormalities are apparent. There is atherosclerotic calcificationof the abdominal aorta and its branches, with no evidence of aneurysm.Calcified uterine leiomyomas are present. The urinary bladder isunremarkable in appearance. There is moderate diffuse colonic fecalretention. There is no evidence of colitis or diverticu litis. An appendixis not visualized. No pericecal inflammatory changes are evident. There isno free intraperitoneal fluid or free intraperitoneal air. There is acalcified granuloma of the right lower lobe. There are degenerative changesof the shoulders and spine. No acute bony abnormalities are evident. [facility], Radiant Results Inft User - 01/20/2021 9:04 PM CDTFormatting of this note might be differentfrom the original.Ordering Physician: MARCIAL VAUGHANHistory: Epigastric pain Technique: CT abdomen and pelvis with intravenous contrast. Thisexamination was performed according to ALARA principles.Technical quality: AdequateComparison: None available.Findings: The patient is status post cholecystectomy and partial resection of theright hepatic lobe. Hepatic cysts are present. The largest of thesemeasures 8.3 cm. Additional low-attenuation hepatic lesions are too smallto characterize. There is a peripherally calcified exophytic lesion of theleft hepatic lobe, measuring approximately 2.2 cm. This measures greaterthan water attenuation and may be solid. The portal veins are patent.Hepatic veins alsoappear patent. No biliary dilatation is evident. Thespleen is unremarkable in appearance. The pancreas is slightly atrophic. Noadrenal abnormalities are evident. There is right renal cortical scarring.R enal cortical and parapelvic cysts are present.Evaluation of the stomach is limited by lack of distention, but no grossgastric abnormalities are apparent. There is atherosclerotic calcificationof the abdominal aorta and its branches, with no evidence of aneurysm.Calcified uterine leiomyomas are present. The urinary bladder isunremarkable in appearance. There is moderate diffuse colonic fecalretention. There is no evidence of colitis or diverticulitis. An appendixis not visualized. No pericecal inflammatory changes are evident. There isno free intraperitoneal fluid or free intraperitoneal air. Thereis acalcified granuloma of the right lower lobe. There are degenerative changesof the shoulders and s pine. No acute bony abnormalities are evident.IMPRESSIONImpression: 1. No prior studies available.2.Cholecystectomy and postoperative changes of the liver.3. Multiple hepatic cysts, with additional low-attenuation hepatic lesionstoo small to characterize.4. Peripherally calcified exophytic lesion of the left hepatic lobemeasures greater than water attenuation. This may reflect a calcifiedhyperdense cyst, but a solid mass cannot be excluded. Comparison to priorstudies would be of value.5. Mild pancreatic atrophy.6. Renal cysts and right renal cortical scarring.7. Atherosclerosis.8. Uterine leiomyomas.9. Moderate colonic fecal retention.RL: 460End of Report [facility] P[facility]VIS W [id number] 02:03:44Impression: 1. No prior studies available.2. Cholecystectomy and postoperative changes of the liver.3. Multiple hepatic cysts, with additional low-attenuation hepatic lesionstoo small to characterize.4. Peripherally calcified exophytic lesion of the left hepatic lobemeasures greater than water attenuation. This may reflect a calcifiedhyperdense cyst, but a solid mass cannot be excluded. Comparison to priorstudies would be of value.5. Mild pancreatic atrophy.6. Renal cysts and right renal cortical scarring.7. Atherosclerosis.8. Uterine leiomyomas.9. Moderate colonic fecal retention. RL: 460 End of Report Ordering Physician: MARCIAL VAUGHAN History: Epigastric pain Technique: CT abdomen and pelvis with intravenous contrast. Thisexamination was performed according to ALARA principles. Technical quality: Adequate Comparison: None available. Findings: The patient is status post cholecystectomy and partial resection of theright hepatic lobe. Hepatic cysts are present. The largest of thesemeasures 8.3 cm. Additional low- attenuation hepatic lesions are too smallto characterize. There is a peripherally calcified exophytic lesion of theleft hepatic lobe, measuring approximately 2.2 cm. This measures greaterthan water attenuation and may be solid. The portal veins are patent.Hepatic veins also appear patent. No biliary dilatation is evident. Thespleen is unremarkable in appearance. The pancreas is slightly atrophic. Noadrenal abnormalities are evident. There is right renal cortical scarring.Renal cortical and parapelvic cysts are present. Evaluation of the stomach is limited by lack of distention, but no grossgastric abnormalities are apparent. There is atherosclerotic calcificationof the abdominal aorta and its branches, with no evidence of aneurysm.Calcified uterine leiomyomas are present. The urinary bladder isunremarkable in appearance. There is moderate diffuse colonic fecalretention. There is no evidence of colitis or diverticu litis. An appendixis not visualized. No pericecal inflammatory changes are evident. There isno free intraperitoneal fluid or free intraperitoneal air. There is acalcified granuloma of the right lower lobe. There are degenerative changesof the shoulders and spine. No acute bony abnormalities are evident. [facility], [facility] Results Inft User - 01/20/2021 9:04 PM CDTFormatting of this note might be differentfrom the original.Ordering Physician: MARCIAL VAUGHANHistory: Epigastric pain Technique: CT abdomen and pelvis with intravenous contrast. Thisexamination was performed according to ALARA principles.Technical quality: AdequateComparison: None available.Findings: The patient is status post cholecystectomy and partial resection of theright hepatic lobe. Hepatic cysts are present. The largest of thesemeasures 8.3 cm. Additional low-attenuation hepatic lesions are too smallto characterize. There is a peripherally calcified exophytic lesion of theleft hepatic lobe, measuring approximately 2.2 cm. This measures greaterthan water attenuation and may be solid. The portal veins are patent.Hepatic veins alsoappear patent. No biliary dilatation is evident. Thespleen is unremarkable in appearance. The pancreas is slightly atrophic. Noadrenal abnormalities are evident. There is right renal cortical scarring.R enal cortical and parapelvic cysts are present.Evaluation of the stomach is limited by lack of distention, but no grossgastric abnormalities are apparent. There is atherosclerotic calcificationof the abdominal aorta and its branches, with no evidence of aneurysm.Calcified uterine leiomyomas are present. The urinary bladder isunremarkable in appearance. There is moderate diffuse colonic fecalretention. There is no evidence of colitis or diverticulitis. An appendixis not visualized. No pericecal inflammatory changes are evident. There isno free intraperitoneal fluid or free intraperitoneal air. Thereis acalcified granuloma of the right lower lobe. There are degenerative changesof the shoulders and s pine. No acute bony abnormalities are evident.IMPRESSIONImpression: 1. No prior studies available.2.Cholecystectomy and postoperative changes of the liver.3. Multiple hepatic cysts, with additional low-attenuation hepatic lesionstoo small to characterize.4. Peripherally calcified exophytic lesion of the left hepatic lobemeasures greater than water attenuation. This may reflect a calcifiedhyperdense cyst, but a solid mass cannot be excluded. Comparison to priorstudies would be of value.5. Mild pancreatic atrophy.6. Renal cysts and right renal cortical scarring.7. Atherosclerosis.8. Uterine leiomyomas.9. Moderate colonic fecal retention.RL: 460End of Report [id number] 23:16:36No acute findings. HISTORY:Neuro deficit, acute, stroke suspected TECHNIQUE: Noncontrast head CT wasperformed. COMPARISON:None FINDINGS: The ventricles and sulci are appropriate for patient's age. There is no midline shift. The basal cisterns are preserved. No largevascular territory infarction, intracranial hemorrhage or mass effect isseen. The extracranial tissues demonstrate no acute findings. [facility] Results Inft User - 01/20/2021 6:17 PM CDTFormatting of this note might be different fromthe original.HISTORY:Neuro deficit, acute, stroke suspected TECHNIQUE: Noncontrast head CT was performed.COMPARISON:NoneFINDINGS:The ventricles and sulci are appropriate for patient's age.There is no midline shift. The basal cisterns are preserved. No largevascular territory infarction, intracranial hemorrhage or mass effect isseen.The extracranial tissues demonstrate no acute findings.IMPRESSIONNo acute findings.[facility] acute hospital HEAD WO [id number] 23:16:36No acute findings. HISTORY:Neuro deficit, acute, stroke suspected TECHNIQUE: Noncontrast head CT wasperformed. COMPARISON:None FINDINGS: The ventricles and sulci are appropriate for patient's age. There is no midline shift. The basal cisterns are preserved. No largevascular territory infarction, intracranial hemorrhage or mass effect isseen. The extracranial tissues demonstrate no acute findings. [facility], [facility] Results Inft User - 01/20/2021 6:17 PM CDTFormatting of this note might be different fromthe original.HISTORY:Neuro deficit, acute, stroke suspected TECHNIQUE: Noncontrast head CT was performed.COMPARISON:NoneFINDINGS:The ventricles and sulci are appropriate for patient's age.There is no midline shift. The basal cisterns are preserved. No largevascular territory infarction, intracranial hemorrhage or mass effect isseen.The extracranial tissues demonstrate no acute findings.IMPRESSIONNo acute findings.[facility]19 (ID NOW RAPID TESTING)2021-01-20 23:07:03 Test Item Value Reference Range Interpretation Comments SARS-CoV-2 Rapid ID NOW Not Detected Not Detected (test code = 32993-2) CLARICE (test code = CLARICE) ID NOW COVID-19 Assay is an isothermal nucleic acid amplification test intended for the qualitative detection of nucleic acid from SARS-CoV-2 viral RNA in nasopharyngeal (CLIMATE CHANGE ANALYST) specimens. It is used under Emergency Use Authorization (EUA) by FDA. The limit of detection (LOD) of the assay is 125 Genome Equivalents/mL. A positive result is indicative of the presence of SARS-CoV-2 RNA. ?Clinical correlation with patient history and other diagnostic information is necessary to determine patient infection status. A negative (Not Detected) result does not preclude SARS-CoV-2 infection. In patients with clinical symptoms and other tests that are consistent with SARS-CoV-2 infection, negative results should be treated as presumptive negative and a new specimen should be tested with alternative PCR molecular test. Invalid: Please collect a new specimen for repeat patient testing if clinically indicated. Lab Interpretation Normal (test code = 16106-2) [place] [id number] (ID NOW RAPID TESTING)2021-01-20 23:07:03 Test Item Value Reference Range Interpretation Comments SARS-CoV-2 Rapid ID NOW (test Not Detected Not Detected code = 88113-2) CLARICE (test code = CLARICE) Lab Interpretation (test code = Normal 80199-6) [facility] Test Item Value Reference Range Interpretation Comments APPEARANCE (test code = Hazy Clear A 1932505250) COLOR (test code = Yellow Yellow 9821447605) PH (test code = 4.8-8.0 8098532392) SP GRAVITY (test code = 1.003-1.030 8583328186) GLU U QUAL (test code = Normal Normal 6005040436) BLOOD (test code = Negative Negative 2500151422) KETONES (test code = 5 mg/dL Negative A 1351469980) PROTEIN (test code = Negative Negative 2887-8) UROBILIN (test code = Normal Normal 4419239428) BILIRUBIN (test code = Negative Negative 6920932836) NITRITE (test code = Positive Negative A 1127050020) LEUK JONAS (test code = 75/uL Negative A 8346569859) RBC/HPF (test code = See_Comment [Autom ated message] 4958434188) The system [employer] generated this result transmitted ref erence range: 0 - 3 HP F. The reference range was not used to int erpret this result as normal/abnormal . WBC/HPF (test code = See_Comment [Autom ated message] 2542388619) The system [employer] generated this result transmitted ref erence range: 0 - 5 HP F. The reference range was not used to int erpret this result as normal/abnormal . BACTERIA (test code = Many Negative A 0606432283) MUCOUS (test code = Slight Negative LPF A 9543232989) SQ EPITH (test code = HPF 5814170301) Lab Interpretation (test Abnormal code = 93919-0) [facility]:53:37 Test Item Value Reference Range Interpretation Comments APPEARANCE (test code = Hazy Clear A 7893703775) COLOR (test code = Yellow Yellow 6653788479) PH (test code = 4.8-8.0 2501792796) SP GRAVITY (test code = 1.003-1.030 3390668001) GLU U QUAL (test code = Normal Normal 8278484022) BLOOD (test code = Negative Negative 5383494556) KETONES (test code = 5 mg/dL Negative A 2718862833) PROTEIN (test code = Negative Negative 2887-8) UROBILIN (test code = Normal Normal 0793509362) BILIRUBIN (test code = Negative Negative 0485046799) NITRITE (test code = Positive Negative A 2962495783) LEUK JONAS (test code = 75/uL Negative A 7692005910) RBC/HPF (test code = See_Comment [Autom ated message] 0384156620) The system [employer] generated this result transmitted ref erence range: 0 - 3 HP F. The reference range was not used to int erpret this result as normal/abnormal . WBC/HPF (test code = See_Comment [Autom ated message] 6466271681) The system [employer] generated this result transmitted ref erence range: 0 - 5 HP F. The reference range was not used to int erpret this result as normal/abnormal . BACTERIA (test code = Many Negative A 5840539088) MUCOUS (test code = Slight Negative LPF A 0293618565) SQ EPITH (test code = HPF 4634082220) Lab Interpretation (test Abnormal code = 57487-6) [facility] [id number] 22:51:39 Test Item Value Reference Interpretation Comments Range TROPONIN I (test 0.002 ng/mL See_Comment [Automated code = 7975309199) message] The system which generated this result transmitted reference range : <=0.034. The reference range was not used to interpret this result as normal/abnormal . CLARICE (test code = Reference (Normal) CLARICE) Range (defined by the 99th percentile reference limit): <= 0.034 ng/mL Note: Cardiac troponin begins to rise 3-4 hours after the onset of ischemia. Repeat in 4-6 hours if the sample was drawn within 3-4 hours of the onset of the symptom and found normal. Diagnosis of myocardial injury is made with acute changes in cTn concentrations with at least one serial sample above the 99th percentile upper reference limit (URL), taken together with the patient's clinical presentation. Biotin has been reported to cause a negative bias, interpret results relative to patient's use of biotin. Lab Interpretation Normal (test code = 27911-5) [facility] [id number] 22:51:39 Test Item Value Reference Range Interpretation Comments TROPONIN I (test code = 0.002 ng/mL See_Comment [Au tomated 6487253169) message] The sy stem which generated this result transmitted reference range : <=0.034. The reference range was not used to interpret this result as normal/abnormal . CLARICE (test code = CLARICE) Lab Interpretation Normal (test code = 80012-4) [facility]. Metabolic Panel ([id number])2021-01-20 22:39:56 Test Item Value Reference Range Interpretation Comments NA (test code = 137 mmol/L 135-145 5086457540) K (test code = 4.1 mmol/L 3.5-5.0 6031926138) CL (test code = 100 mmol/L 98-108 6571097875) CO2 TOTAL (test code = 24 mmol/L 23-31 7695341968) AGAP (test code = 2-16 2704531630) BUN (test code = 15 mg/dL 7-23 5410779690) GLUCOSE (test code = 163 mg/dL 70-110 H 6027942601) CREATININE (test code = 0.71 mg/dL 0.50-1.04 6634295706) TOTAL BILI (test code = 0.6 mg/dL 0.1-1.7 5213009519) CALCIUM (test code = 9.7 mg/dL 8.6-10.6 6120489015) T PROTEIN (test code = 7.5 g/dL 6.3-8.2 5908316787) ALBUMIN (test code = 4.6 g/dL 3.5-5.0 0542143861) ALK PHOS (test code = 139 U/L 34-122 H 6043583588) ALTv (test code = 27 U/L 5-35 1742-6) AST(SGOT) (test code = 28 U/L 13-40 2330630251) eGFR (test code = mL/min/1.73m2 7836964887) CLARICE (test code = CLARICE) Association of Glomerular Filtration Rate (GFR) and Staging of Kidney Disease* + --+ --+ ------+| GFR (mL/min/1.73 m2) ?| With Kidney Damage ?| ?Without Kidney Damage+ --------+ --------+ +| ?>90 ?| ?Stage one ?| ? Normal ?+ ---+ ---+ -------+| ?60-89 ?| ?Stage two ?| ? Decreased GFR ? + --+ --+ ------+| ?30-59 ?| ?Stage three ?| ? Stage three ? + --+ --+ ------+| ?15-29 ?| ?Stage four ? | ? Stage four ?+ ---+ ---+ -------+| ?<15 (or dialysis) ? ?| ?Stage five ? | ? Stage five ?+ ---+ ---+ -------+ *Each stage assumes the associated GFR level has been in effect for at least three months. ?Stages 1 to 5, with or without kidney disease, indicate chronic kidney disease. Notes: Determination of stages one and two (with eGFR >59mL/min/1.73 m2) requires estimation of kidney damage for at least three months as defined by structural or functional abnormalities of the kidney, manifested by either:Pathological abnormalities or Markers of kidney damage (including abnormalities in the composition of the blood or urine or abnormalities in imaging tests). Lab Interpretation Abnormal (test code = 14544-6) [facility] ([id number])2021-01-20 22:39:56 Test Item Value Reference Range Interpretation Comments NA (test code = 8926019548) 137 mmol/L 135-145 K (test code = 3595295994) 4.1 mmol/L 3.5-5.0 CL (test code = 2534726649) 100 mmol/L 98-108 CO2 TOTAL (test code = 7764708958) 24 mmol/L 23-31 AGAP (test code = 0301510025) 2-16 BUN (test code = 0000496474) 15 mg/dL 7-23 GLUCOSE (test code = 2808744506) 163 mg/dL 70-110 H CREATININE (test code = 0.71 mg/dL 0.50-1.04 3158668376) TOTAL BILI (test code = 0.6 mg/dL 0.1-1.4 3066414283) CALCIUM (test code = 2274067398) 9.7 mg/dL 8.6-10.6 T PROTEIN (test code = 6436215063) 7.5 g/dL 6.3-8.2 ALBUMIN (test code = 8337661915) 4.6 g/dL 3.5-5.0 ALK PHOS (test code = 0835637947) 139 U/L 34-122 H ALTv (test code = 1742-6) 27 U/L 5-35 AST(SGOT) (test code = 0324272173) 28 U/L 13-40 eGFR (test code = 3939400407) mL/min/1.73m2 CLARICE (test code = CLARICE) Lab Interpretation (test code = Abnormal 32921-8) [facility] with [id number] 22:27:13 Test Item Value Reference Range Interpretation Comments WBC (test code = See_Comment [Automated message] 6690-2) The system [employer] generated this result transmitted ref erence range: 4.30 - 1 1.10 10*3/?L. The re ference range was not u sed to interpret this result as normal/abnor mal. RBC (test code = See_Comment [Automated message] 789-8) The system [employer] generated this result transmitted ref erence range: 3.93 - 5 .25 10*6/?L. The re ference range was not u sed to interpret this result as normal/abnor mal. HGB (test code = 13.2 g/dL 11.6-15.0 718-7) HCT (test code = 39.8 % 35.7-45.2 4544-3) MCV (test code = 86.0 fL 80.6-95.5 787-2) MCH (test code = 28.5 pg 25.9-32.8 785-6) MCHC (test code = 33.2 g/dL 31.6-35.1 786-4) RDW-SD (test code 42.1 fL 39.0-49.9 = 99096-8) RDW-CV (test code 13.3 % 12.0-15.5 = 788-0) PLT (test code = See_Comment [Automated message] 777-3) The system [employer] generated this result transmitted ref erence range: 166 - 35 8 10*3/?L. The re ference range was not u sed to interpret this result as normal/abnor mal. MPV (test code = 9.7 fL 9.5-12.9 39559-0) NRBC/100 WBC (test See_Comment [Automat ed message] code = 6656537522) The syste [employer] which generated this result transmitted ref erence range: 0.0 - 10 .0 /100 WBCs. The refer ence range was not u sed to interpret this result as normal/abnor mal. NRBC x10^3 (test <0.01 See_Comment [Automated message] code = 7573471262) The syste m which generated this result transmitted ref erence range: 10*3/?L. The reference range was not used to interpr et this result as normal/abnormal . GRAN MAT (NEUT) % 59.6 % (test code = 770-8) IMM GRAN % (test 0.70 % code = 9672753515) LYMPH % (test code 27.3 % = 736-9) MONO % (test code 9.4 % = 5905-5) EOS % (test code = 2.0 % 713-8) BASO % (test code 1.0 % = 706-2) GRAN MAT 4.39 10*3/uL 1.88-7.09 x10^3(ANC) (test code = 5883761292) IMM GRAN x10^3 0.05 10*3/uL 0.00-0.06 (test code = 8568271874) LYMPH x10^3 (test 2.01 10*3/uL 1.32-3.29 code = 731-0) MONO x10^3 (test 0.69 10*3/uL 0.33-0.92 code = 742-7) EOS x10^3 (test 0.15 10*3/uL 0.03-0.39 code = 711-2) BASO x10^3 (test 0.07 10*3/uL 0.01-0.07 code = 704-7) [facility] with [id number] 22:27:13 Test Item Value Reference Range Interpretation Comments WBC (test code = See_Comment [Automated message] 6690-2) The system [employer] generated this result transmitted ref erence range: 4.30 - 1 1.10 10*3/?L. The re ference range was not u sed to interpret this result as normal/abnor mal. RBC (test code = See_Comment [Automated message] 789-8) The system [employer] generated this result transmitted ref erence range: 3.93 - 5 .25 10*6/?L. The re ference range was not u sed to interpret this result as normal/abnor mal. HGB (test code = 13.2 g/dL 11.6-15.0 718-7) HCT (test code = 39.8 % 35.7-45.2 4544-3) MCV (test code = 86.0 fL 80.6-95.5 787-2) MCH (test code = 28.5 pg 25.9-32.8 785-6) MCHC (test code = 33.2 g/dL 31.6-35.1 786-4) RDW-SD (test code 42.1 fL 39.0-49.9 = 46802-4) RDW-CV (test code 13.3 % 12.0-15.5 = 788-0) PLT (test code = See_Comment [Automated message] 777-3) The system whic h generated this result transmitted ref erence range: 166 - 35 8 10*3/?L. The re ference range was not u sed to interpret this result as normal/abnor mal. MPV (test code = 9.7 fL 9.5-12.9 16687-7) NRBC/100 WBC (test See_Comment [Automat ed message] code = 8823855750) The syste m which generated this result transmitted ref erence range: 0.0 - 10 .0 /100 WBCs. The refer ence range was not u sed to interpret this result as normal/abnor mal. NRBC x10^3 (test <0.01 See_Comment [Automated message] code = 6694846605) The syste m which generated this result transmitted ref erence range: 10*3/?L. The reference range was not used to interpr et this result as normal/abnormal . GRAN MAT (NEUT) % 59.6 % (test code = 770-8) IMM GRAN % (test 0.70 % code = 6625100718) LYMPH % (test code 27.3 % = 736-9) MONO % (test code 9.4 % = 5905-5) EOS % (test code = 2.0 % 713-8) BASO % (test code 1.0 % = 706-2) GRAN MAT 4.39 10*3/uL 1.88-7.09 x10^3(ANC) (test code = 3632321543) IMM GRAN x10^3 0.05 10*3/uL 0.00-0.06 (test code = 0659018173) LYMPH x10^3 (test 2.01 10*3/uL 1.32-3.29 code = 731-0) MONO x10^3 (test 0.69 10*3/uL 0.33-0.92 code = 742-7) EOS x10^3 (test 0.15 10*3/uL 0.03-0.39 code = 711-2) BASO x10^3 (test 0.07 10*3/uL 0.01-0.07 code = 704-7) [facility] [id number] 22:15:02 Test Item Value Reference Range Interpretation Comments LACTIC ACID (test code = 3.26 mmol/L 0.50-2.20 H 4518463467) Lab Interpretation (test code = Abnormal 63945-7) [facility] Whole [id number] 22:15:02 Test Item Value Reference Range Interpretation Comments LACTIC ACID (test code = 3.26 mmol/L 0.50-2.20 H 5545132924) Lab Interpretation (test code = Abnormal 86840-1) [facility]CORON[facility] COVID-19 [id number] 20:16:00 Test Item Value Reference Range Interpretation Comments SARS-CoV-2 (test code = Not Detected Not Detected 96731-8) CLARICE (test code = CLARICE) ID NOW COVID-19 Assay is an isothermal nucleic acid amplification test intended for the qualitative detection of nucleic acid from SARS-CoV-2 viral RNA in nasopharyngeal (CLIMATE CHANGE ANALYST) specimens. It is used under Emergency Use Authorization (EUA) by FDA. The limit of detection (LOD) of the assay is 125 Genome Equivalents/mL. A positive result is indicative of the presence of SARS-CoV-2 RNA. ?Clinical correlation with patient history and other diagnostic information is necessary to determine patient infection status. A negative (Not Detected) result does not preclude SARS-CoV-2 infection. Clinical correlation with patient history and other diagnostic information should be used in patient management decisions. Invalid: Please collect a new specimen for repeat patient testing if clinically indicated. Lab Interpretation Normal (test code = 10120-6) [facility]2020-[facility] 20:11:00 Test Item Value Reference Range Interpretation Comments APPEARANCE (test code = Clear Clear 0254930392) COLOR (test code = Yellow Yellow 1655107183) PH (test code = 4.8-8.0 2480679313) SP GRAVITY (test code = 1.003-1.030 7673434185) GLU U QUAL (test code = 500 mg/dL Normal A 6591253395) BLOOD (test code = Negative Negative 3118651706) KETONES (test code = Negative Negative 4652703747) PROTEIN (test code = Negative Negative 2887-8) UROBILIN (test code = Normal Normal 0632909431) BILIRUBIN (test code = Negative Negative 7077367861) NITRITE (test code = Positive Negative A 1790367734) LEUK JONAS (test code = Negative Negative 7491256355) RBC/HPF (test code = <1 See_Comment [Autom ated message] 3939864512) The system [employer] generated this result transmit beth reference range : 0 - 3 HPF. The refe rence range was not u sed to interpret th is result as normal/abnormal . WBC/HPF (test code = See_Comment [Autom ated message] 5903040591) The system [employer] generated this result transmit beth reference range : 0 - 5 HPF. The refe rence range was not u sed to interpret th is result as normal/abnormal . BACTERIA (test code = Few Negative A 3852208723) MUCOUS (test code = Slight Negative LPF A 5110538219) SQ EPITH (test code = HPF 4917080962) Lab Interpretation (test Abnormal code = 47857-3) [facility]. METABOLIC PANEL (92393)2019-09-20 19:54:00 Test Item Value Reference Range Interpretation Comments NA (test code = 138 mmol/L 135-145 9135919471) K (test code = 4.3 mmol/L 3.5-5 6769496048) CL (test code = 100 mmol/L 98-108 9635784095) CO2 TOTAL (test code = 28 mmol/L 23-31 6918512306) AGAP (test code = 2-16 9678379747) BUN (test code = 14 mg/dL 7-23 6208210802) GLUCOSE (test code = 264 mg/dL 70-110 H 5438022763) CREATININE (test code = 0.56 mg/dL 0.5-1.04 3875141880) TOTAL BILI (test code = 0.4 mg/dL 0.1-1.0 6727201636) CALCIUM (test code = 9.4 mg/dL 8.6-10.6 9343631236) T PROTEIN (test code = 7.3 g/dL 6.3-8.2 5247620057) ALBUMIN (test code = 4.3 g/dL 3.5-5 2904290521) ALK PHOS (test code = 189 U/L 34-122 H 7646905615) ALTv (test code = 35 U/L 5-35 1742-6) AST(SGOT) (test code = 36 U/L 13-40 5958130507) eGFR Calculation mL/min/1.73m2 (Non-) (test code = 1307659079) eGFR Calculation mL/min/1.73m2 () (test code = 8402908158) CLARICE (test code = CLARICE) Association of Glomerular Filtration Rate (GFR) and Staging of Kidney Disease* + --+ --+ ------+| GFR (mL/min/1.73 m2) ?| With Kidney Damage ?| ?Without Kidney Damage+ --------+ --------+ +| ?>90 ?| ?Stage one ?| ? Normal ?+ ---+ ---+ -------+| ?60-89 ?| ?Stage two ?| ? Decreased GFR ? + --+ --+ ------+| ?30-59 ?| ?Stage three ?| ? Stage three ? + --+ --+ ------+| ?15-29 ?| ?Stage four ? | ? Stage four ?+ ---+ ---+ -------+| ?<15 (or dialysis) ? ?| ?Stage five ? | ? Stage five ?+ ---+ ---+ -------+ *Each stage assumes the associated GFR level has been in effect for at least three months. ?Stages 1 to 5, with or without kidney disease, indicate chronic kidney disease. Notes: Determination of stages one and two (with eGFR >59mL/min/1.73 m2) requires estimation of kidney damage for at least three months as defined by structural or functional abnormalities of the kidney, manifested by either:Pathological abnormalities or Markers of kidney damage (including abnormalities in the composition of the blood or urine or abnormalities in imaging tests). Lab Interpretation Abnormal (test code = 82348-9) [facility]XR [facility] 1 VW [id number] 19:50:26 No acute cardiopulmonary process. Disclaimer: Generally, the findings on chest imaging in COVID-19 are notspecific, and overlap with other infections, including influenza, H1N1,SARS and MERS.Accordingto the Centers for Disease Control (CDC) and the [place] [employer], viral testing remainsthe only specific method of diagnosiseven if CXR or CT findings are suggestive of COVID-19. Preliminary Report Dictated by Resident: Callum Car MD., have reviewed this study and agree withthe above report.PROCEDURE: CHEST XRAY , CLINICAL INDICATION: cough COMPARISON: Radiograph 04/25/2019 FINDINGS: Changes of an ACDF are noted in the lower cervical spine. No focal consolidation, pleural effusion, or pneumothorax. The cardiac silhouette is normal in size. No acute osseous abnormality. Left AC separation versus post surgicalchange, unchanged. Right AC osteoarthrosis. [facility], Radiant Results Inft User - 09/20/2019 2:51 PM CDTPROCEDURE: CHEST XRAY , CLINICAL INDICATION: cough COMPARISON: Radiograph 04/25/2019FINDINGS:Changes of an ACDF are noted in the lower cervical spine.No focal consolidation, pleural effusion, or pneumothorax.The cardiac silhouette is normal in size.No acute osseous abnormality. Left AC separation versus post surgicalchange, unchanged. Right AC osteoarthrosis.IMPRESSIONNo acute cardiopulmonary process.Disclaimer: Generally, the findings on chest imaging in COVID-19 are notspecific, and overlap with other infections, including influenza, H1N1,SARS and MERS.According to the Centers for Disease Control (CDC) and the [place] [employer], viral testing remains the only specific method of diagnosiseven if CXR or CT findings are suggestive of COVID-19. Preliminary Report Dictated by Resident: Callum Coy MD., have reviewed this study and agree withthe above report.[facility]CBC WITH [id number] 19:43:00 Test Item Value Reference Range Interpretation Comments WBC (test code = See_Comment [Automated message] 6690-2) The system [employer] generated this result transmitted ref erence range: 4.30 - 1 1.10 10*3/?L. The re ference range was not u sed to interpret this result as normal/abnor mal. RBC (test code = See_Comment [Automated message] 789-8) The system [employer] generated this result transmitted ref erence range: 3.93 - 5 .25 10*6/?L. The re ference range was not u sed to interpret this result as normal/abnor mal. HGB (test code = 12.7 g/dL 11.6-15 718-7) HCT (test code = 38.9 % 35.7-45.2 4544-3) MCV (test code = 88.0 fL 80.6-95.5 787-2) MCH (test code = 28.7 pg 25.9-32.8 785-6) MCHC (test code = 32.6 g/dL 31.6-35.1 786-4) RDW-SD (test code 42.6 fL 39-49.9 = 53604-8) RDW-CV (test code 13.2 % 12-15.5 = 788-0) PLT (test code = See_Comment [Automated message] 817-3) The system [employer] generated this result transmitted ref erence range: 166 - 35 8 10*3/?L. The re ference range was not u sed to interpret this result as normal/abnor mal. MPV (test code = 11.1 fL 9.5-12.9 41879-3) NRBC/100 WBC (test See_Comment [Automat ed message] code = 1374618489) The syste m which generated this result transmitted ref erence range: 0.0 - 10 .0 /100 WBCs. The refer ence range was not u sed to interpret this result as normal/abnor mal. NRBC x10^3 (test <0.01 See_Comment [Automated message] code = 0927584506) The syste m which generated this result transmitted ref erence range: 10*3/?L. The reference range was not used to interpr et this result as normal/abnormal . GRAN MAT (NEUT) % 56.4 % (test code = 770-8) IMM GRAN % (test 0.80 % code = 6741987134) LYMPH % (test code 28.5 % = 736-9) MONO % (test code 8.4 % = 5905-5) EOS % (test code = 5.0 % 713-8) BASO % (test code 0.9 % = 706-2) GRAN MAT 4.28 10*3/uL 1.88-7.09 x10^3(ANC) (test code = 8938066957) IMM GRAN x10^3 0.06 10*3/uL 0-0.06 (test code = 5245990985) LYMPH x10^3 (test 2.16 10*3/uL 1.32-3.29 code = 731-0) MONO x10^3 (test 0.64 10*3/uL 0.33-0.92 code = 742-7) EOS x10^3 (test 0.38 10*3/uL 0.03-0.39 code = 711-2) BASO x10^3 (test 0.07 10*3/uL 0.01-0.07 code = 704-7) [facility] [id number] 14:12:56 Test Item Value Reference Range Interpretation Comments Glucose POC (test 136 mg/dL 70-115 H Notify RN or MDIf you code = Glucose POC) consider your patient critically ill, the Cristopher-Accu Chec k Infrom II meter should not be used for Glucos e determination. Draw a venous Glucose and send to the main Lab for analysis. POCT GLUCOSE (AUTOMATED)2019-02-15 12:53:00 Test Item Value Reference Range Interpretation Comments POCT GLU (test code = 4729327172) 178 mg/dL 70-110 H Lab Interpretation (test code = Abnormal 97593-6) [facility]2019-[facility] 04:56:00 Test Item Value Reference Range Interpretation Comments APPEARANCE (test code = Hazy Clear A 9852401879) COLOR (test code = Yellow Yellow 8684002785) PH (test code = 4.8-8.0 5628559678) SP GRAVITY (test code = 1.003-1.030 H 6191855758) GLU U QUAL (test code = 50 mg/dL Normal A 5149938288) BLOOD (test code = Negative Negative 4868939786) KETONES (test code = Negative Negative 1406363458) PROTEIN (test code = Negative Negative 2887-8) UROBILIN (test code = Normal Normal 4858688887) BILIRUBIN (test code = Negative Negative 9027632346) NITRITE (test code = Negative Negative 9131895118) LEUK JONAS (test code = 500/uL Negative A 0391528129) RBC/HPF (test code = See_Comment H [Autom ated message] 9254704299) The system [employer] generated this result transmitted ref erence range: 0 - 3 HP F. The reference range was not used to int erpret this result as normal/abnormal . WBC/HPF (test code = See_Comment H [Autom ated message] 1012006591) The system [employer] generated this result transmitted ref erence range: 0 - 5 HP F. The reference range was not used to int erpret this result as normal/abnormal . BACTERIA (test code = Negative Negative 0818051421) MUCOUS (test code = Moderate Negative LPF A 9487889851) SQ EPITH (test code = HPF 7933595034) HYAL CAST (test code = See_Comment H [Aut omated message] 4049956470) The system [employer] generated this result transmitted ref erence range: <=2 LPF. The reference range was not used to int erpret this result as normal/abnormal . Lab Interpretation (test Abnormal code = 94855-7) [facility] P[facility]MON[facility] [id number] 03:35:23 A pulmonary embolism is identified in the distal right pulmonary arterywhich propagates to the lower lobe segmental arteries. This was also seenon 11/22/2018 and is likely chronic. Unchanged left lowerlobe 7 mm noncalcified pulmonary nodule. Recommendfollow-up low-dose CT chest and 6-12 months. Unchanged partially calcified 2 cm exophytic left hepatic lobe lesion whichis indeterminate. A nonemergentCT or MRI abdomen using liver protocolcould be obtained for further characterization. was notified of the preliminary findings (distal right pulmonaryartery embolism which propagates to the lower lobe segmental branches) [id number] on 02/14/2019. ICallum?MD [place]., have reviewed this study and agree withthe above report.PROCEDURE: CT ANGIO CHEST WITH CONTRAST - PE PROTOCOL CLINICAL INDICATION: PE suspected, high pretest prob? COMPARISON: 11/22/2018 CT. TECHNIQUE:?Helical CT was performed and reconstructed at 1.25 mm slicethickness fromlung bases to apices using 120 mL Omnipaque intravenouscontrast, without complication.? Axial MIPS and coronal/sagittal MPRS werereconstructed.? (DFOV = 40.3 cm) FINDINGS: PULMONARY ARTERIES: Enhancement is adequate. A filling defect is seen in the distal rightpulmonary artery which extends into the lower lobe segmental arteries. Noevidence for heart strain. CHEST: Lower neck/thyroid: Unremarkable. Lungs: Unchanged subcentimeter 7 mm noncalcified pulmonary nodule leftupper lobe (7:49). The mosaic-like round glass attenuation is likelysecondary to partial expiration. Minimal scattered atelectasis present. Central airway: Unremarkable. Pleura: Mild biapical pleural thickening. No pleural effusion orpneumothorax. Thoracic aorta and great vessels: Traditional three-vessel archconfiguration. A stent is seen at the ostia of the left subclavian artery.A few scattered aortic arch calcifications are noted. Heart and pericardium: No detectable coronary arterial calcifications.Unremarkable cardiac morphology and pericardium. Lymph nodes: No enlarged thoracic lymph nodes. Mediastinum: Unremarkable. Thoracic spine and chest wall: No more than mild degenerative changes arenoted. Lower cervical ACDF hardware is partially visualized. No suspiciousosseous lesions. No acute fracture dislocation. Other Lines/Tubes/Devices/Hardware: None Upper abdomen: The hyperattenuating hepatic lesion in the left lobemeasures 7.8 x 4.1 cm, previously characterized as a simple cyst. Theadjacent 2 cm partially calcified capsular lesion is unchanged. Proximalsecondary. [facility], Radiant Results Inft User - 02/14/2019 10:35 PM CDTPROCEDURE: CT ANGIO CHEST WITH CONTRAST - PE PROTOCOLCLINICAL INDICATION: PE suspected, high pretest prob COMPARISON: 11/22/2018 CT.TECHNIQUE: Helical CT was performed and reconstructed at 1.25 mm slicethickness from lung bases to apices using 120 mL Omnipaque intravenouscontrast, without complication. Axial MIPS and coronal/sagittal MPRS werereconstructed. (DFOV = 40.3cm)FINDINGS:PULMONARY ARTERIES: Enhancement is adequate. A filling defect is seen in the distal rightpulmonary artery which extends into the lower lobe segmental arteries. Noevidence for heart strain.CHEST:Lower neck/thyroid: Unremarkable.Lungs: Unchanged subcentimeter 7 mm noncalcified pulmonary nodule leftupper lobe (7:49). The mosaic-like round glass attenuation is likelysecondary to partial expiration. Minimal scattered atelectasis present.Central airway: Unremarkable.Pleura: Mild biapical pleural thickening. No pleural effusion orpneumothorax.Thoracic aorta and great vessels: Traditional three-vessel archconfiguration. A stent is seen at the ostia of the left subclavian artery.A few scatteredaortic arch calcifications are noted.Heart and pericardium: No detectable coronary arterial calcifications.Unremarkable cardiac morphology and pericardium.Lymph nodes: No enlarged thoracic lymph nodes.M ediastinum: Unremarkable.Thoracic spine and chest wall: No more than mild degenerative changes arenoted. Lower cervical ACDF hardware is partially visualized. No suspiciousosseous lesions. No acute fracture dislocation.Other Lines/Tubes/Devices/Hardware: NoneUpper abdomen: The hyperattenuating hepatic lesion in the left lobemeasures 7.8 x 4.1 cm, previously characterized as a simple cyst. Theadjacent2 cm partially calcified capsular lesion is unchanged. Proximalsecondary. IMPRESSIONA pulmonary embolism is identified in the distal right pulmonary arterywhich propagatesto the lower lobe segmental arteries. This was also seenon 11/22/2018 and is likely chronic.Unchangedleft lower lobe 7 mm noncalcified pulmonary nodule. Recommendfollow-up low-dose CT chest and 6-12 months.Unchanged partially calcified 2 cm exophytic left hepatic lobe lesion whichis indeterminate. A no nemergent CT or MRI abdomen using liver protocolcould be obtained for further characterization. was notified of the preliminary findings (distal right pulmonaryartery embolism which propagates to the lower lobe segmental branches) [id number] on 02/14/2019.I, Callum Haynes MD., have reviewed this study and agree withthe above report.[facility] HospitalTROPONIN [id number] 02:14:00 Test Item Value Reference Range Interpretation Comments TROPONIN I (test 0.001 ng/mL See_Comment [Automated code = 8670289532) message] The system which generated this result transmitted reference range : <=0.034. The reference range was not used to interpret this result as normal/abnormal . CLARICE (test code = Equal or Less than CLARICE) 0.034 ng/ml---Normal?Not e: Cardiac troponin begins to rise 3-4 hours after the onset of ischemia. Repeat in 4-6 hours if the sample was drawn within 3-4 hours of the onset of the symptom and found normal. Between 0.035 and 0.120 ng/mL--- Borderline. Questionable myocardial injury or necrosis?Note: Serial measurement may be necessary to confirm or exclude the diagnosis of myocardial injury or necrosis; Clinical correlation (symptoms, EKGs, imaging studies, and others) required; Repeat in 4-6 hours if clinically indicated.? Equal or Higher than 0.121 ng/mL---Abnormal. Myocardial Injury or Necrosis Likely? Biotin has been reported to cause a negative bias, interpret results relative to patient's use of biotin.? ? Lab Interpretation Normal (test code = 19205-0) [facility]MINAL [id number]-[id number] 02:11:00 Test Item Value Reference Range Interpretation Comments NT-proBNP (test code 44 pg/mL See_Comment [Autom ated = 9076699063) message] The system which generated this result transmitted reference range : <=125. The reference range was not used to interpret this result as normal/abnormal . CLARICE (test code = CLARICE) Biotin has been reported to cause a negative bias, interpret results relative to patient's use of biotin. Lab Interpretation Normal (test code = 05444-5) [facility] HospitalaPTT2019-09-15 02:06:00 Test Item Value Reference Range Interpretation Comments APTT Patient (test See_Comment [Automat ed code = 3173-2) message] The system which generated this result transmitted reference range : 23 - 38 Seconds . The reference range was not used to interpr et this result as normal/abnormal . CLARICE (test code = CLARICE) The [facility] patient population mean normal value for aPTT is 30 seconds. Lab Interpretation Normal (test code = 80336-8) [facility] HospitalPROTHROMBIN TIME / [id number] 02:04:00 Test Item Value Reference Range Interpretation Comments PROTIME PATIENT (test See_Comment [Auto mated message] code = 5964-2) The system wh ich generated this result transmitted ref erence range: 12.0 - 1 4.7 Seconds. The re ference range was not u sed to interpret this result as normal/abnor mal. INR (test code = 6301-6) Nor mal INR <1.1; Warfarin Therap eutic range 2.0 to 3. 0 or 2.5 to 3.5, dep ending upon the indica tions. Lab Interpretation (test Normal code = 59507-5) [facility]. METABOLIC PANEL (22642)2019-02-15 02:03:00 Test Item Value Reference Range Interpretation Comments NA (test code = 142 mmol/L 135-145 6997197545) K (test code = 4.6 mmol/L 3.5-5 9602897563) CL (test code = 104 mmol/L 98-108 1286009086) CO2 TOTAL (test code = 26 mmol/L 23-31 1214206746) AGAP (test code = 2-16 1195877971) BUN (test code = 20 mg/dL 7-23 7093466375) GLUCOSE (test code = 200 mg/dL 70-110 H 3563517663) CREATININE (test code = 0.65 mg/dL 0.5-1.04 5146613839) TOTAL BILI (test code = 0.3 mg/dL 0.1-1.3 1661970066) CALCIUM (test code = 10.3 mg/dL 8.6-10.6 8777347338) T PROTEIN (test code = 7.6 g/dL 6.3-8.2 9094421218) ALBUMIN (test code = 4.6 g/dL 3.5-5 4042871714) ALK PHOS (test code = 157 U/L 34-122 H 5800575275) ALT(SGPT) (test code = 40 U/L 9-51 3930103339) AST(SGOT) (test code = 37 U/L 13-40 2403338384) eGFR Calculation mL/min/1.73m2 (Non-) (test code = 0629402582) eGFR Calculation mL/min/1.73m2 () (test code = 6984035901) CLARICE (test code = CLARICE) Association of Glomerular Filtration Rate (GFR) and Staging of Kidney Disease*+ + + +| GFR (mL/min/1.73 m2)?| With Kidney Damage?|?Without Kidney Damage+ --------+ --------+ +|?>90?|?S tage one?|? Normal?+ ---------+ ---------+ +|?60-89? |?Stage two?|? Decreased GFR? + --+ --+ ------+|?30-59?|?Stage three?|? Stage three? + --+ --+ ------+|?15-29?|?Stage four? |? Stage four?+ -------+ -------+ +|?<15 (or dialysis)?|?Stage five? |? Stage five?+ -------+ -------+ +*Each stage assumes the associated GFR level has been in effect for at least three months.?Stages 1 to 5, with or without kidney disease, indicate chronic kidney disease.Notes: Determination of stages one and two (with eGFR >59mL/min/1.73 m2) requires estimation of kidney damage for at least three months as defined by structural or functional abnormalities of the kidney, manifested by either:Pathological abnormalities or Markers of kidney damage (including abnormalities in the composition of the blood or urine or abnormalities in imaging tests). Lab Interpretation Abnormal (test code = 83807-1) [facility] WITH [id number] 01:53:00 Test Item Value Reference Range Interpretation Comments WBC (test code = See_Comment [Automated 2590-2) message] The sy stem which generated this result transmitted reference range : 4.30 - 11.10 10*3/?L. The reference range was not used to interpret this result as normal/abnormal . RBC (test code = See_Comment [Automated 789-8) message] The sy stem which generated this result transmitted reference range : 3.93 - 5.25 10*6/?L. The reference range was not used to interpret this result as normal/abnormal . HGB (test code = 13.8 g/dL 11.6-15 718-7) HCT (test code = 41.3 % 35.7-45.2 4544-3) MCV (test code = 86.4 fL 80.6-95.5 787-2) MCH (test code = 28.9 pg 25.9-32.8 785-6) MCHC (test code = 33.4 g/dL 31.6-35.1 786-4) RDW-SD (test code = 42.5 fL 39-49.9 11615-5) RDW-CV (test code = 13.6 % 12-15.5 788-0) PLT (test code = See_Comment [Automated 777-3) message] The sy stem which generated this result transmitted reference range : 166 - 358 10*3/ ?L. The reference r alexus was not used to interpret this result as normal/abnormal . MPV (test code = 10.1 fL 9.5-12.9 64044-9) NRBC/100 WBC (test See_Comment [Automat ed code = 6546891068) message] The system which generated this result transmitted reference range : 0.0 - 10.0 /100 WBCs. The refer ence range was not u sed to interpret th is result as normal/abnormal . NRBC x10^3 (test code <0.01 See_Comment [Auto mated = 8804370104) message] The s ystem which generated this result transmitted reference range : 10*3/?L. The reference range was not used to interpret this result as normal/abnormal . GRAN MAT (NEUT) % 58.3 % (test code = 770-8) IMM GRAN % (test code 0.30 % = 6215529855) LYMPH % (test code = 28.5 % 736-9) MONO % (test code = 9.5 % 5905-5) EOS % (test code = 2.7 % 713-8) BASO % (test code = 0.7 % 706-2) GRAN MAT x10^3(ANC) 5.71 10*3/uL 1.88-7.09 (test code = 9465544167) IMM GRAN x10^3 (test 0.03 10*3/uL 0-0.06 code = 8693190910) LYMPH x10^3 (test code 2.79 10*3/uL 1.32-3.29 = 731-0) MONO x10^3 (test code 0.93 10*3/uL 0.33-0.92 H = 742-7) EOS x10^3 (test code = 0.26 10*3/uL 0.03-0.39 711-2) BASO x10^3 (test code 0.07 10*3/uL 0.01-0.07 = 704-7) Lab Interpretation Abnormal (test code = 50860-2) [facility]
--- NOTE | 2022-12-10 11:38 | RAD REPORT ---
EXAM DESCRIPTION: CT - Ct Stroke Brain Wo Cont - 12/10/2022 11:29 am CLINICAL HISTORY: STROKE ALERT COMPARISON: Head Brain Wo Cont dated 10/14/2015 TECHNIQUE: Noncontrast head CT images were obtained without IV contrast. Multiplanar reformats were generated and reviewed. All CT scans are performed using dose optimization technique as appropriate and may include automated exposure control or mA/KV adjustment according to patient size. FINDINGS: No intracranial hemorrhage, mass, or edema. Midline structures are unremarkable. Normal ventricular caliber for age. Townsend-white matter differentiation is preserved, without evidence of acute infarct. No abnormal extra- axial fluid collections. Mastoid air cells and visualized portions of the paranasal sinuses are clear. No acute bony findings. IMPRESSION: No evidence of an acute intracranial process. The findings were communicated to Kirk Zambrano on 12/10/2022 at 11:34 hours.
[2022-12-10] MEDS ORDERED: NA CHLORIDE 0.9% 1,000 ML ONE (11:41)
[2022-12-10] MEDS ORDERED: FOLIC ACID 5 MG/ML VIAL ONE (11:41)
[2022-12-10 11:49] LABS: Protime INR 1.65
--- NOTE | 2022-12-10 11:49 | RAD REPORT ---
EXAM DESCRIPTION: CT - Head angio - 12/10/2022 11:38 am CLINICAL HISTORY: DIZZINESS COMPARISON: Ct Stroke Brain Wo Cont dated 12/10/2022; Head Brain Wo Cont dated 10/14/2015 TECHNIQUE: Axial CT angiography images of the head was performed with multiplanar and maximum intens ity projection reconstructions. Images performed following intravenous administration of 95 mLmL Isov ue 370. All CT scans are performed using dose optimization technique as appropriate and may include automated exposure control or mA/KV adjustment according to patient size. FINDINGS: No evidence of large vessel occlusion. No evidence of aneurysm or dissection flap is detec beth. No flow-limiting stenosis or vascular malformation identified. Antegrade flow is seen in the vertebral arteries, although there is multifocal [id number] ather osclerotic narrowing along the intradural left vertebral artery proximal to mid segments. The vertebr al arteries are codominant. The visualized dural venous sinuses are grossly patent. IMPRESSION: No evidence of large vessel occlusion or flow-limiting stenosis. Atherosclerotic mild-to -moderate narrowing along the proximal to mid left vertebral artery.
--- NOTE | 2022-12-10 11:51 | RAD REPORT ---
EXAM DESCRIPTION: CT - Neck Angio - 12/10/2022 11:38 am CLINICAL HISTORY: Numbness;Pain COMPARISON: Head C Spine Mpr Wo Con dated 11/25/2020 TECHNIQUE: Axial CT angiography images of the head was performed with multiplanar and maximum intens ity projection reconstructions. Images performed following intravenous administration of 95mL Isovue 370. All CT scans are performed using dose optimization technique as appropriate and may include automated exposure control or mA/KV adjustment according to patient size. Quantification of carotid stenosis, if any, is performed according to NASCET criteria. FINDINGS: A left aortic arch is identified with normal three vessel configuration of the great vesse ls. No significant flow abnormality is seen of the common carotid bilaterally. No significant stenosis is identified involving the cervical segments of both internal carotid arteri es. Mild atherosclerotic calcifications at the carotid bulbs. Normal flow is seen within both vertebral arteries. Sequelae of anterior plating along the C4-C6 cervical spine segments with underlying degenerative janneth nges. IMPRESSION: No significant flow abnormality of the neck vessels is identified. CAROTID STENOSIS REFERENCE USING NASCET CRITERIA: % ICA stenosis = (1 - narrowest ICA diameter/diameter of distal cervical ICA) x 100. Mild - <50% stenosis. Moderate - 50-69% stenosis. Severe - 70-94% stenosis. Near occlusion - 95-99% stenosis. Occluded - 100% stenosis.
[2022-12-10 12:00] LABS: Lymphocytes % 29.6 % (15.3-44.8); MCV 84.4 fL (80-100); MPV 7.5 fL (7.6-11.3); RBC Red Blood Cell Count 4.62 M/uL (3.86-4.86)
[2022-12-10] MEDS ORDERED: CLOPIDOGREL 75 MG TABLET ONE (12:19)
[2022-12-10] MEDS ORDERED: ASPIRIN 81 MG CHEWABLE TABLET ONE (12:19)
--- NOTE | 2022-12-10 12:22 | RAD REPORT ---
EXAM DESCRIPTION: RADChest Single View12/10/2022 12:03 pm CLINICAL HISTORY: COUGH COMPARISON: Chest Single View dated 04/02/2022; Chest Single View dated 11/25/2020; Chest Pa And Lat (2 Views) dated 01/04/2020; Chest Single View dated 12/29/2019 TECHNIQUE: Portable AP view of the chest. FINDINGS: The lungs are clear. No pneumothorax or effusion. The cardiomediastinal contours are unre markable. IMPRESSION: No acute cardiopulmonary process.
[2022-12-10] MEDS ORDERED: ONDANSETRON 4 MG/2 ML VIAL ONE (12:23)
[2022-12-10 12:47] LABS: ALT/SGPT 33 U/L (13-56); AST/SGOT 22 U/L (15-37); Albumin 3.9 g/dL (3.4-5.0); Alkaline Phosphatase 105 U/L (45-117); BUN Blood Urea Nitrogen 15 mg/dL (7-18); Bicarbonate 27 mEq/L (21-32); Bilirubin Direct 0.2 mg/dL (0-0.2); Bilirubin Indirect, Calculated 0.3 mg/dL (0.2-0.8); Bilirubin Total 0.5 mg/dL (0.2-1.0); Glomerular Filtration Rate 75 ml/min (=/>90); Glucose Level 138 mg/dL (74-106); Magnesium 1.8 mg/dL (1.6-2.4); NT PRO-BNP 33 pg/mL (<125); Potassium 4.2 mEq/L (3.5-5.1); Protein, Total 7.4 g/dL (6.4-8.2); Sodium Level 136 mEq/L (136-145); Troponin High Sensitivity 3.2 pg/mL (<58.9)
[2022-12-10 12:48] LABS: C-Reactive Protein < 2.90 mg/L (<3.00)
--- NOTE | 2022-12-10 12:51 | EDPHYS ---
Physician Documentation [facility] Name: Christina Isidro Age: 67 yrs Sex: Female : 1955 Arrival Date: 12/10/2022 Time: 11:18 Bed 5 Private MD: ED Physician Jesus Elizabeth HPI: 12/10 12:39 This 67 yrs old Female presents to ER via Wheelchair with complaints of S/S janneth of Possible Stroke. 12:39 The patient's problem is reported as dysphasia, weakness, in the left lower extremity. janneth Onset: The symptoms/episode began/occurred at 09:00. Duration: The episode is continuous. Context: the episode(s) was witnessed, by family, symptoms became apparent at 09:00. occurred at home, occurred while the patient was walking. The symptoms are alleviated by nothing. The symptoms are aggravated by nothing. Associated signs and symptoms: The patient has no apparent associated signs or symptoms. Severity of symptoms: At their worst the symptoms were mild moderate in the emergency department the symptoms have improved mildly. Patient's baseline: Neuro: alert and fully oriented. The patient has experienced a previous episode, last month. Historical: - Allergies: 11:40 Lorazepam; aa5 - Home Meds: 12:00 metformin [Active]; eliquis [Active]; Lunesta oral [Active]; aa5 - PMHx: 11:40 CAD; Diabetes - IDDM; DVT; pulmonary embolus; aa5 ROS: 12:42 Constitutional: Negative for fever, chills, and weight loss, Eyes: Negative for injury, janneth pain, redness, and discharge, ENT: Negative for injury, pain, and discharge, Neck: Negative for injury, pain, and swelling, Cardiovascular: Negative for chest pain, palpitations, and edema, Respiratory: Negative for shortness of breath, cough, wheezing, and pleuritic chest pain, Abdomen/GI: Negative for abdominal pain, nausea, vomiting, diarrhea, and constipation, Back: Negative for injury and pain, : Negative for injury, bleeding, discharge, and swelling, MS/Extremity: Negative for injury and deformity, Skin: Negative for injury, rash, and discoloration, Psych: Negative for depression, anxiety, suicide ideation, homicidal ideation, and hallucinations, Allergy/Immunology: Negative for hives, rash, and allergies, Endocrine: Negative for neck swelling, polydipsia, polyuria, polyphagia, and marked weight changes, Hematologic/Lymphatic: Negative for swollen nodes, abnormal bleeding, and unusual bruising. 12:42 Neuro: Positive for dizziness, gait disturbance, speech changes, weakness, of the left leg. Exam: 12:42 Radiologist reports: NEG FOR ACUTE janneth 12:42 Constitutional: This is a well developed, well nourished patient who is awake, alert, and in no acute distress. Head/Face: Normocephalic, atraumatic. Eyes: Pupils equal round and reactive to light, extra-ocular motions intact. Lids and lashes normal. Conjunctiva and sclera are non-icteric and not injected. Cornea within normal limits. Periorbital areas with no swelling, redness, or edema. ENT: Nares patent. No nasal discharge, no septal abnormalities noted. Tympanic membranes are normal and external auditory canals are clear. Oropharynx with no redness, swelling, or masses, exudates, or evidence of obstruction, uvula midline. Mucous membranes moist. Neck: Trachea midline, no thyromegaly or masses palpated, and no cervical lymphadenopathy. Supple, full range of motion without nuchal rigidity, or vertebral point tenderness. No Meningismus. Chest/axilla: Normal chest wall appearance and motion. Nontender with no deformity. No lesions are appreciated. Cardiovascular: Regular rate and rhythm with a normal S1 and S2. No gallops, murmurs, or rubs. Normal PMI, no JVD. No pulse deficits. Respiratory: Lungs have equal breath sounds bilaterally, clear to auscultation and percussion. No rales, rhonchi or wheezes noted. No increased work of breathing, no retractions or nasal flaring. Abdomen/GI: Soft, non-tender, with normal bowel sounds. No distension or tympany. No guarding or rebound. No evidence of tenderness throughout. Back: No spinal tenderness. No costovertebral tenderness. Full range of motion. Skin: Warm, dry with normal turgor. Normal color with no rashes, no lesions, and no evidence of cellulitis. Psych: Awake, alert, with orientation to person, place and time. Behavior, mood, and affect are within normal limits. 12:42 Musculoskeletal/extremity: ROM: limited active range of motion, in the left leg, Circulation is intact in all extremities. the left arm and left leg Tingling of extremity. decreased sensation, Compartment Syndrome exam of affected extremity: is normal. 12:42 Neuro: Orientation: is normal, appropriate for stated age, no acute changes, to person, place, time \T\ situation. Mentation: is normal, appropriate for stated age, no acute changes, Memory: appropriate for stated age, no acute changes, Cranial nerves: grossly normal, Motor: moves all fours, strength is 4/5 in the left leg, Gait: not tested. seizure activity, is not displayed by the patient. 13:01 ECG was reviewed by the Attending Physician. [facility] Vital Signs: 11:40 BP 97 / 67; Pulse 71; Resp 16 S; Temp 98(TE); Pulse Ox 98% on R/A; aa5 12:00 BP 113 / 66; Pulse 74; Resp 16 S; Pulse Ox 97% on R/A; aa5 14:34 BP 134 / 69; Pulse 71; Resp 18; Pulse Ox 99% on R/A; ld1 NIH Stroke Scale Scores: 11:40 NIHSS Score: 1 aa5 12:42 NIHSS Score: 4 janneth 13:30 NIHSS Score: 1 aa5 MDM: 11:19 Patient medically screened. janneth 12:45 Differential diagnosis: CVA, TIA, Dementia. Data reviewed: vital signs, nurses notes, [facility] lab test result(s), EKG, radiologic studies, CT scan, MRI, plain films. Consideration of Admission/Observation Patient was admitted/placed on observation. Escalation of care including admission/observation considered. I considered the following discharge prescriptions or medication management in the emergency department Medications were administered in the Emergency Department. See MAR. Test considered but Not performed: Ultrasound NO CAROTID US. Care significantly affected by the following chronic conditions: Diabetes, Hypertension, Obesity, DVT, PE, CAD. Counseling: I had a detailed discussion with the patient and/or guardian regarding: the historical points, exam findings, and any diagnostic results supporting the discharge/admit diagnosis, lab results, radiology results, the need for further work-up and treatment in the hospital. 12:48 ED course: JENNA CAGE AND SHLOMO NO TNK , KEEP HERE. [facility] 12/10 11:24 Order name: Basic Metabolic Panel [facility] 12/10 11:24 Order name: CBC with Diff [facility] 12/10 11:24 Order name: LFT's [facility] 12/10 11:24 Order name: Magnesium [facility] 12/10 11:24 Order name: NT PRO-BNP [facility] 12/10 11:24 Order name: PT-INR; Complete Time: 11:56 [facility] 12/10 11:24 Order name: Troponin HS [facility] 12/10 11:24 Order name: Urinalysis w/ reflexes [facility] 12/10 11:24 Order name: CRP [facility] 12/10 13:23 Order name: CREATININE WHOLE BLOOD [facility] 12/10 11:24 Order name: XRAY Chest (1 view) [facility] 12/10 11:24 Order name: CT Head Angio; Complete Time: 11:56 [facility] 12/10 11:24 Order name: CT Neck Angio; Complete Time: 11:56 [facility] 12/10 11:24 Order name: CT Stroke Brain w/o Contrast; Complete Time: 11:56 [facility] 12/10 12:29 Order name: Brain Wo Cont [facility] 12/10 11:24 Order name: EKG; Complete Time: 11:24 [facility] 12/10 12:58 Order name: CONS Physician Consult [facility] 12/10 11:24 Order name: Cardiac monitoring; Complete Time: 11:32 [facility] 12/10 11:24 Order name: EKG - Nurse/Tech; Complete Time: 11:55 [facility] 12/10 11:24 Order name: IV Saline Lock; Complete Time: 11:33 [facility] 12/10 11:24 Order name: Labs collected and sent; Complete Time: 11:33 [facility] 12/10 11:24 Order name: O2 Per Protocol; Complete Time: 11:29 [facility] 12/10 11:24 Order name: O2 Sat Monitoring; Complete Time: 11:29 [facility] EC:01 Rate is 72 beats/min. Rhythm is regular. QRS [place] is Normal. [place] interval is normal. QRS janneth interval is normal. QT interval is normal. No Q waves. T waves are Normal. No ST changes noted. Clinical impression: Normal ECG and No evidence of ischemia. Interpreted by me. Reviewed by me. Administered Medications: 11:55 Drug: NS 0.9% IV 1000 ml Route: IV; Rate: 1 bolus; Site: right antecubital; aa5 13:30 Follow up: IV Status: Completed infusion; IV Intake: 1000ml aa5 11:55 Drug: foLIC Acid IVPB 1 mg Route: IVPB; Site: right antecubital; aa5 12:17 Drug: Aspirin PO Chewable Tablet 81 mg Route: PO; aa5 13:30 Follow up: Response: No adverse reaction aa5 12:17 Drug: Clopidogrel PO 75 mg Route: PO; aa5 13:30 Follow up: Response: No adverse reaction aa5 12:17 Drug: Ondansetron IVP 4 mg Route: IVP; Site: right antecubital; aa5 13:30 Follow up: Response: No adverse reaction aa5 Disposition Summary: 12/10/22 12:50 Hospitalization Ordered Hospitalization Status: Inpatient Admission janneth Provider: Eliud Cage cha Location: Telemetry/MedSurg (Inpatient) janneth Condition: Stable janneth Problem: new janneth Symptoms: have improved janneth Bed/Room Type: Standard janneth Room Assignment: 425(12/10/22 13:29) ja1 Diagnosis - Cerebral infarction, unspecified janneth - Aphasia following cerebral infarction janneth - Dysphasia and aphasia 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 Total time: 45 minutes NIH Stroke Scale - NIH Stroke Score Date: 12/10/2022 Time: 11:40 Total Score = 1 10. Dysarthria (speech clarity - read or repeat words) - 0(Normal) 11. Extinction and Inattention (visual/tactile/auditory/spatial/personal) - 0(No abnormality) 1a. Level of Consciousness (LOC) - 0(Alert) 1b. Level of Consciousness (LOC) (Month \T\ Age) - 0(Both) 1c. LOC Commands (Open \T\ Closes Eyes/Concrete Floater) - 0(Both) 2. Best Gaze (Lateral Gaze Paresis) - 0(Normal) 3. Visual Field Loss - 0(No visual loss) 4. Facial Palsy - 0(Normal) 5a. Left Arm: Motor (10-second hold) - 0(No drift) 5b. Right Arm: Motor (10-second hold) - 0(No drift) 6a. Left Leg: Motor (5-second hold - always test supine) - 0(No drift) 6b. Right Leg: Motor (5-second hold - always test supine) - 0(No drift) 7. Limb Ataxia (finger/nose \T\ heel/melo - test with eyes open) - 0(Absent) 8. Sensory Loss (pinprick arms/legs/face) - 1(Mild to moderate loss) 9. Best Language: Aphasia (description/naming/reading) - 0(No aphasia) Initials: aa5 NIH Stroke Scale - NIH Stroke Score Date: 12/10/2022 Time: 12:42 Total Score = 4 10. Dysarthria (speech clarity - read or repeat words) - 1(Mild to Moderate) 11. Extinction and Inattention (visual/tactile/auditory/spatial/personal) - 0(No abnormality) 1a. Level of Consciousness (LOC) - 0(Alert) 1b. Level of Consciousness (LOC) (Month \T\ Age) - 0(Both) 1c. LOC Commands (Open \T\ Closes Eyes/Concrete Floater) - 0(Both) 2. Best Gaze (Lateral Gaze Paresis) - 0(Normal) 3. Visual Field Loss - 0(No visual loss) 4. Facial Palsy - 0(Normal) 5a. Left Arm: Motor (10-second hold) - 0(No drift) 5b. Right Arm: Motor (10-second hold) - 0(No drift) 6a. Left Leg: Motor (5-second hold - always test supine) - 1(Drift) 6b. Right Leg: Motor (5-second hold - always test supine) - 0(No drift) 7. Limb Ataxia (finger/nose \T\ heel/melo - test with eyes open) - 1(Present in one limb) 8. Sensory Loss (pinprick arms/legs/face) - 0(Normal) 9. Best Language: Aphasia (description/naming/reading) - 1(Mild to moderate aphasia) Initials: janneth NIH Stroke Scale - NIH Stroke Score Date: 12/10/2022 Time: 13:30 Total Score = 1 10. Dysarthria (speech clarity - read or repeat words) - 0(Normal) 11. Extinction and Inattention (visual/tactile/auditory/spatial/personal) - 0(No abnormality) 1a. Level of Consciousness (LOC) - 0(Alert) 1b. Level of Consciousness (LOC) (Month \T\ Age) - 0(Both) 1c. LOC Commands (Open \T\ Closes Eyes/Concrete Floater) - 0(Both) 2. Best Gaze (Lateral Gaze Paresis) - 0(Normal) 3. Visual Field Loss - 0(No visual loss) 4. Facial Palsy - 0(Normal) 5a. Left Arm: Motor (10-second hold) - 0(No drift) 5b. Right Arm: Motor (10-second hold) - 0(No drift) 6a. Left Leg: Motor (5-second hold - always test supine) - 0(No drift) 6b. Right Leg: Motor (5-second hold - always test supine) - 0(No drift) 7. Limb Ataxia (finger/nose \T\ heel/melo - test with eyes open) - 0(Absent) 8. Sensory Loss (pinprick arms/legs/face) - 1(Mild to moderate loss) 9. Best Language: Aphasia (description/naming/reading) - 0(No aphasia) Initials: aa5 Signatures: Dispatcher [employer] EDJesus North MD MD cha Calderon, Audri, RN RN aa5 Adithya Samuels RN RN ja1 Kaylie Castaneda RN RN ll1 Corrections: (The following items were deleted from the chart) 12:29 12:04 MR STROKE PROTOCOL+MRI.RAD.BRZ ordered. EDPA FORRESTMS 13:05 12:50 janneth red1 13:29 13:05 Jenny Kym alexis
--- NOTE | 2022-12-10 12:51 | ER ---
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 Coronavirus screen: At this time, the client does not indicate any symptoms associated with coronavirus-19. Ebola Screen: No symptoms or risks identified at this time. An acute neurological deficit is present. The charge nurse has been notified. The patient has been moved to a treatment area. Initial Sepsis Screen: Does the patient meet any 2 criteria? No. Patient's initial sepsis screen is negative. Does the patient have a suspected source of infection? No. Patient's initial sepsis screen is negative. Risk Assessment: Do you want to hurt yourself or someone else? Patient reports no desire to harm self or others. Onset of symptoms was December 10, 2022 at 09:00. 11:23 Method Of Arrival: Wheelchair bp 11:23 Acuity: AARON 2 bp Triage Assessment: 11:40 The onset of the patients symptoms was December 10, 2022 at 09:00. aa5 Stroke Activation: Symptom onset < 3 hours Physician: Stroke Attending; Name: ; Notified At: ; Arrived At: Physician: Chief Stroke Resident; Name: ; Notified At: ; Arrived At: Physician: Stroke Resident; Name: ; Notified At: ; Arrived At: Physician: ED Attending; Name: ; Notified At: ; Arrived At: Physician: ED Resident; Name: ; Notified At: ; Arrived At: Historical: - Allergies: 11:40 Lorazepam; aa5 - Home Meds: 12:00 metformin [Active]; eliquis [Active]; Lunesta oral [Active]; aa5 - PMHx: 11:40 CAD; Diabetes - IDDM; DVT; pulmonary embolus; aa5 Screenin:40 [facility] ED Fall Risk Assessment (Adult) History of falling in the last 3 months, aa5 including since admission No falls in past 3 months (0 pts) Confusion or Disorientation No (0 pts) Intoxicated or Sedated No (0 pts) Impaired Gait No (0 pts) Mobility Assist Device Used No (0 pt) Altered Elimination No (0 pt) Score/Fall Risk Level 0 - 2 = Low Risk Oriented to surroundings, Maintained a safe environment, Educated pt \T\ family on fall prevention, incl call for assistance when getting out of bed. Abuse screen: Denies threats or abuse. Nutritional screening: No deficits noted. Tuberculosis screening: No symptoms or risk factors identified. Assessment: 11:40 Reassessment: Pt back from CT scan . aa5 11:40 General: Appears uncomfortable, Behavior is calm, cooperative. Pain: Denies pain. aa5 Neuro: Level of Consciousness is awake, alert, obeys commands, Oriented to person, place, time, situation, Manager Change are equal bilaterally Moves all extremities. Speech clear but slow, pt reports difficulty speaking. Facial symmetry appears normal, Pupils are PERRLA, Reports dizziness, paresthesias in left arm since 0900. Cardiovascular: Heart tones S1 S2 present Rhythm is regular. Respiratory: Airway is patent Respiratory effort is even, unlabored, Respiratory pattern is regular, symmetrical. GI: Abdomen is round non-distended, Bowel sounds present X 4 quads. Abd is soft and non tender X 4 quads. Reports nausea. : No signs and/or symptoms were reported regarding the genitourinary system. EENT: No signs and/or symptoms were reported regarding the EENT system. Derm: Skin is pink, warm \T\ dry. Musculoskeletal: Range of motion: intact in all extremities. 11:40 VAN Scoring: Arm Drift: Patients demonstrates NO arm weakness. Patient is VAN Negative. aa5 Visual Disturbance: No visual disturbance noted. Aphasia: No aphasia noted. Neglect: No neglect noted. 11:40 TNKase (Tenecteplase) Screening: Contraindications: Rapidly improving condition or aa5 minor deficit: Yes. 12:00 Abby Swallow Protocol Brief Cognitive Screen What is your name? Normal, Where are you aa5 right now? Normal, What year is it? Normal. Oral Mechanism Examination Facial Symmetry: Normal, Motion: Normal, Lip Closure: Normal, Oral Mechanism Result: Normal. 3 oz Water Swallow Challenge: Pt able to drink all water without stopping, coughing, choking or throat clearing: Yes Result: JOSEFA MEDINA Notified: Jesus Elizabeth MD. 12:19 Reassessment: Pt to MRI. aa5 13:30 Reassessment: Patient is alert, oriented x 3, equal unlabored respirations, skin aa5 warm/dry/pink. 14:30 Reassessment: Patient is alert, oriented x 3, equal unlabored respirations, skin aa5 warm/dry/pink. Vital Signs: 11:40 BP 97 / 67; Pulse 71; Resp 16 S; Temp 98(TE); Pulse Ox 98% on R/A; aa5 12:00 BP 113 / 66; Pulse 74; Resp 16 S; Pulse Ox 97% on R/A; aa5 14:34 BP 134 / 69; Pulse 71; Resp 18; Pulse Ox 99% on R/A; ld1 NIH Stroke Scale Scores: 11:40 NIHSS Score: 1 aa5 12:42 NIHSS Score: 4 janneth 13:30 NIHSS Score: 1 aa5 ED Course: 11:18 Patient arrived in ED. mr 11:19 Jesus Elizabeth MD is Attending Physician. janneth 11:24 Triage completed. bp 11:29 Heydi Desouza, RN is Primary Nurse. ld1 11:30 CT Stroke Brain w/o Contrast In Process Unspecified. EDMS 11:40 CT Head Angio In Process Unspecified. EDMS 11:40 CT Neck Angio In Process Unspecified. EDMS 11:40 Arm band placed on Patient placed in an exam room, on a stretcher. ll1 11:40 Patient has correct armband on for positive identification. Bed in low position. Call aa5 light in reach. Side rails up X2. Client placed on continuous cardiac and pulse oximetry monitoring. NIBP monitoring applied. 11:45 Inserted saline lock: 22 gauge in right antecubital area, using aseptic technique. aa5 11:55 EKG done, reviewed by Jesus Elizabeth MD. aa5 12:04 XRAY Chest (1 view) In Process Unspecified. EDMS 12:29 Brain Wo Cont In Process Unspecified. EDMS 12:49 Eliud Cage MD is Hospitalizing Provider. janneth 14:35 No provider procedures requiring assistance completed. Patient admitted, IV remains in aa5 place. Administered Medications: 11:55 Drug: NS 0.9% IV 1000 ml Route: IV; Rate: 1 bolus; Site: right antecubital; aa5 13:30 Follow up: IV Status: Completed infusion; IV Intake: 1000ml aa5 11:55 Drug: foLIC Acid IVPB 1 mg Route: IVPB; Site: right antecubital; aa5 12:17 Drug: Aspirin PO Chewable Tablet 81 mg Route: PO; aa5 13:30 Follow up: Response: No adverse reaction aa5 12:17 Drug: Clopidogrel PO 75 mg Route: PO; aa5 13:30 Follow up: Response: No adverse reaction aa5 12:17 Drug: Ondansetron IVP 4 mg Route: IVP; Site: right antecubital; aa5 13:30 Follow up: Response: No adverse reaction aa5 Medication: 14:35 VIS not applicable for this client. aa5 Intake: 13:30 IV: 1000ml; Total: 1000ml. aa5 Outcome: 12:50 Decision to Hospitalize by Provider. janneth 14:30 Admitted to Tele accompanied by tech, via wheelchair, with chart, Report called to aaUmesh Abbott RN 14:30 Condition: stable 14:30 Instructed on the need for admit, Demonstrated understanding of instructions. 14:37 Patient left the ED. ld1 NIH Stroke Scale - NIH Stroke Score Date: 12/10/2022 Time: 11:40 Total Score = 1 10. Dysarthria (speech clarity - read or repeat words) - 0(Normal) 11. Extinction and Inattention (visual/tactile/auditory/spatial/personal) - 0(No abnormality) 1a. Level of Consciousness (LOC) - 0(Alert) 1b. Level of Consciousness (LOC) (Month \T\ Age) - 0(Both) 1c. LOC Commands (Open \T\ Closes Eyes/Motor Polarizer) - 0(Both) 2. Best Gaze (Lateral Gaze Paresis) - 0(Normal) 3. Visual Field Loss - 0(No visual loss) 4. Facial Palsy - 0(Normal) 5a. Left Arm: Motor (10-second hold) - 0(No drift) 5b. Right Arm: Motor (10-second hold) - 0(No drift) 6a. Left Leg: Motor (5-second hold - always test supine) - 0(No drift) 6b. Right Leg: Motor (5-second hold - always test supine) - 0(No drift) 7. Limb Ataxia (finger/nose \T\ heel/melo - test with eyes open) - 0(Absent) 8. Sensory Loss (pinprick arms/legs/face) - 1(Mild to moderate loss) 9. Best Language: Aphasia (description/naming/reading) - 0(No aphasia) Initials: aa5 NIH Stroke Scale - NIH Stroke Score Date: 12/10/2022 Time: 12:42 Total Score = 4 10. Dysarthria (speech clarity - read or repeat words) - 1(Mild to Moderate) 11. Extinction and Inattention (visual/tactile/auditory/spatial/personal) - 0(No abnormality) 1a. Level of Consciousness (LOC) - 0(Alert) 1b. Level of Consciousness (LOC) (Month \T\ Age) - 0(Both) 1c. LOC Commands (Open \T\ Closes Eyes/Motor Polarizer) - 0(Both) 2. Best Gaze (Lateral Gaze Paresis) - 0(Normal) 3. Visual Field Loss - 0(No visual loss) 4. Facial Palsy - 0(Normal) 5a. Left Arm: Motor (10-second hold) - 0(No drift) 5b. Right Arm: Motor (10-second hold) - 0(No drift) 6a. Left Leg: Motor (5-second hold - always test supine) - 1(Drift) 6b. Right Leg: Motor (5-second hold - always test supine) - 0(No drift) 7. Limb Ataxia (finger/nose \T\ heel/melo - test with eyes open) - 1(Present in one limb) 8. Sensory Loss (pinprick arms/legs/face) - 0(Normal) 9. Best Language: Aphasia (description/naming/reading) - 1(Mild to moderate aphasia) Initials: janneth NIH Stroke Scale - NIH Stroke Score Date: 12/10/2022 Time: 13:30 Total Score = 1 10. Dysarthria (speech clarity - read or repeat words) - 0(Normal) 11. Extinction and Inattention (visual/tactile/auditory/spatial/personal) - 0(No abnormality) 1a. Level of Consciousness (LOC) - 0(Alert) 1b. Level of Consciousness (LOC) (Month \T\ Age) - 0(Both) 1c. LOC Commands (Open \T\ Closes Eyes/Motor Polarizer) - 0(Both) 2. Best Gaze (Lateral Gaze Paresis) - 0(Normal) 3. Visual Field Loss - 0(No visual loss) 4. Facial Palsy - 0(Normal) 5a. Left Arm: Motor (10-second hold) - 0(No drift) 5b. Right Arm: Motor (10-second hold) - 0(No drift) 6a. Left Leg: Motor (5-second hold - always test supine) - 0(No drift) 6b. Right Leg: Motor (5-second hold - always test supine) - 0(No drift) 7. Limb Ataxia (finger/nose \T\ heel/melo - test with eyes open) - 0(Absent) 8. Sensory Loss (pinprick arms/legs/face) - 1(Mild to moderate loss) 9. Best Language: Aphasia (description/naming/reading) - 0(No aphasia) Initials: aa5 Signatures: Dispatcher [employer] EDJesus North MD MD cha Rivera Brionna mr Bradford, Debora, RN RN aa5 Jony Copeland, RN Kaylie Goncalves RN RN ll1 Heydi Desouza RN RN ld1 Corrections: (The following items were deleted from the chart) 12:20 11:40 Neuro: Level of Consciousness is awake, alert, obeys commands, Oriented aa5 to person, place, time, situation, Manager Change are equal bilaterally Moves all extremities. Speech clear but slow, pt reports difficulty speaking. Facial symmetry appears normal, Pupils are PERRLA, Reports dizziness, aa5
--- NOTE | 2022-12-10 12:53 | RAD REPORT ---
EXAM DESCRIPTION: MRI - Brain Wo Cont - 12/10/2022 12:27 pm CLINICAL HISTORY: NUMBNESS COMPARISON: Brain W/Wo Cont dated 08/18/2021; Brain W/Wo Cont dated 12/01/2020; MRA Head Wo Cont dated 11/30/2020; MRI BRAIN WITHOUT CONTRAST dated 10/19/2008 TECHNIQUE: Sagittal T1-weighted images were obtained along with PD/heavily T2-weighted and T2-FLAIR images. Axial DWI and ADC mapping sequences were also obtained along with coronal heavily T2-weighted images were obtained. FINDINGS: No intracranial hemorrhage or acute infarction. There is no edema or shift of midline stru ctures. No extra-axial fluid collections. Signal voids are seen as a normal finding in the major intr acranial vessels. No significant white matter disease. Left CP angle lesion measuring 1.5 cm is uncha nged and most consistent with a meningioma. Small remote right cerebellar infarcts. Mastoid air cells and paranasal sinuses are clear. IMPRESSION: No acute intracranial abnormality. Small remote right cerebellar infarcts. Unchanged lef t CP angle lesion likely reflecting a meningioma.
[2022-12-10 13:38] LABS: Urine Bacteria None Seen /HPF (<20); Urine Bilirubin NEGATIVE (Negative); Urine Blood Negative (Negative); Urine Clarity Clear (Clear); Urine Color Light-Yellow (Yellow); Urine Glucose NEGATIVE (Negative); Urine Mucus Slight /HPF (None Seen); Urine Protein NEGATIVE (Negative); Urine RBC <5 /HPF (None Seen); Urine Urobilinogen Normal (Normal)
[2022-12-10 13:41] LABS: Specific Gravity > 1.030 (1.005-1.030)
[2022-12-10] MEDS ORDERED: MORPHINE 2 MG/ML SYR IV PRN (14:27)
[2022-12-10] MEDS ORDERED: ONDANSETRON 4 MG/2 ML VIAL IV PRN (14:27)
[2022-12-10] MEDS ORDERED: ACETAMINOPHEN 325 MG TABLET PO PRN (14:30)
[2022-12-10 15:44] VITALS: BMI 28.2
[2022-12-10] MEDS: NA CHLORIDE 0.9% 1,000 ML IV SCH (15:54)
[2022-12-10] MEDS ORDERED: APIXABAN 2.5 MG TABLET PO SCH (21:00)
[2022-12-10] MEDS ORDERED: HOME MED 1 EA UNK (Ropinirole Hcl [Ropinirole Hcl] 2 MG Tablet) PO SCH (21:00)
[2022-12-10] MEDS ORDERED: HOME MED 1 EA UNK (Insulin Glargine,Hum.Rec.Anlog [Basaglar Kwikpen U-100] 100 UNIT/ML Ins SQ SCH (21:00)
[2022-12-10] MEDS ORDERED: HOME MED 1 EA UNK (Metformin Hcl [Metformin Hcl] 1,000 MG Tablet) PO SCH (21:00)
[2022-12-10] MEDS: GABAPENTIN 300 MG CAP PO SCH (21:01)
[2022-12-10] MEDS: ROPINIROLE HCL 1 MG TAB PO SCH (21:01)
[2022-12-10] MEDS: APIXABAN 5 MG TABLET PO SCH (21:02)
[2022-12-10] MEDS: FAMOTIDINE 20 MG/2 ML VIAL IV SCH (21:03)
[2022-12-10] MEDS: INSULIN GLARGINE 100 UNIT/ML SQ SCH (21:03)
[2022-12-11] MEDS: NA CHLORIDE 0.9% 1,000 ML IV SCH ×2 (01:55→11:48)
[2022-12-11 07:21] LABS: Absolute Lymphocytes (CBC) 1.5 K/uL (0.7-4.9); Hematocrit 32.7 % (36.0-45.0); Lymphocytes % 28.7 % (15.3-44.8); MCV 84.3 fL (80-100); MPV 7.5 fL (7.6-11.3); RBC Red Blood Cell Count 3.88 M/uL (3.86-4.86)
[2022-12-11 07:36] LABS: Potassium 3.8 mEq/L (3.5-5.1)
[2022-12-11] MEDS ORDERED: METFORMIN HCL 500 MG TAB PO SCH (08:00)
[2022-12-11] MEDS: FAMOTIDINE 20 MG/2 ML VIAL IV SCH ×2 (08:08→20:22)
[2022-12-11] MEDS: ROPINIROLE HCL 1 MG TAB PO SCH ×3 (08:08→20:21)
[2022-12-11] MEDS: CLOPIDOGREL 75 MG TABLET PO SCH (08:09)
[2022-12-11] MEDS: ASPIRIN EC 81 MG TAB PO SCH (08:09)
[2022-12-11] MEDS: METFORMIN HCL 500 MG TAB PO SCH ×2 (08:09→17:00)
[2022-12-11] MEDS: GABAPENTIN 300 MG CAP PO SCH ×3 (08:09→20:21)
[2022-12-11] MEDS: APIXABAN 5 MG TABLET PO SCH ×2 (08:09→20:21)
[2022-12-11] MEDS: INSULIN GLARGINE 100 UNIT/ML SQ SCH ×2 (08:10→20:23)
--- NOTE | 2022-12-11 20:25 | EKG ---
Test Date: 2022-12-10 Test Time: 11:53:08 Product Test Specialist: YULY MEASUREMENT RESULTS: Intervals: Rate: 72 MN: 168 QRSD: 86 QT: 434 QTc: 475 [place]: P: 63 MN: 168 QRS: -9 T: 37 INTERPRETIVE STATEMENTS: Normal sinus rhythm Normal ECG Compared to ECG 11/25/2020 02:45:47 No significant changes Electronically Signed On 12-11-22 20:22:51 CDT by Gt Orosco
[2022-12-11] MEDS ORDERED: TEMAZEPAM 15 MG CAP PO PRN (23:11)
--- NOTE | 2022-12-12 06:46 | ECHO ---
HEIGHT: 5 ft 6 in WEIGHT: 175 lb 0 oz DATE OF STUDY: 12/11/[address]: Jesus Elizabeth MD 2-DIMENSIONAL: YES M.MODE: YES DOPPLER: YES COLOR FLOW: YES TDS: PORTABLE: YES DEFINITY: BUBBLE STUDY: DIAGNOSIS: CEREBRAL VASCULAR ACCIDENT CARDIAC HISTORY: CATHERIZATION: NO SURGERY: NO PROSTHETIC VALVE: NO PACEMAKER: NO MEASUREMENTS (cm) DIASTOLIC (NORMALS) SYSTOLIC (NORMALS) IVSd 1.2 (0.6-1.2) LA Diam 2.4 (1.9-4.0) LVEF 64% LVIDd 3.6 (3.5-5.7) LVIDs 2.4 (2.0-3.5) %FS 34% LVPWd 1.2 (0.6-1.2) Ao Diam 2.8 (2.0-3.7) 2 DIMENSIONAL ASSESSMENT: RIGHT ATRIUM: NORMAL LEFT ATRIUM: NORMAL RIGHT VENTRICLE: NORMAL LEFT VENTRICLE: NORMAL TRICUSPID VALVE: NORMAL MITRAL VALVE: MITRAL ANNULAR CALCIFICATION PULMONIC VALVE: NORMAL AORTIC VALVE: NORMAL PERICARDIAL EFFUSION: NONE AORTIC ROOT: NORMAL LEFT VENTRICULAR WALL MOTION: NORMAL DOPPLER/COLOR FLOW: NORMAL COMMENTS: 1. MITRAL ANNULAR CALCIFICATION 2. NORMAL LEFT VENTRICULAR SIZE AND FUNCTION 3. NO THROMBUS OR VEGETATION TECHNOLOGIST: LIVIER BRYAN
[2022-12-12] MEDS: GABAPENTIN 300 MG CAP PO SCH (08:03)
[2022-12-12] MEDS: ASPIRIN EC 81 MG TAB PO SCH (08:03)
[2022-12-12] MEDS: FAMOTIDINE 20 MG/2 ML VIAL IV SCH (08:04)
[2022-12-12] MEDS: ROPINIROLE HCL 1 MG TAB PO SCH (08:04)
[2022-12-12] MEDS: INSULIN GLARGINE 100 UNIT/ML SQ SCH (08:04)
[2022-12-12] MEDS: METFORMIN HCL 500 MG TAB PO SCH (08:04)
[2022-12-12] MEDS: CLOPIDOGREL 75 MG TABLET PO SCH (08:04)
[2022-12-12] MEDS: APIXABAN 5 MG TABLET PO SCH (08:04)
[2022-12-12 10:15] VITALS: O2SAT 96
[2022-12-12] MEDS ORDERED: levETIRAcetam 500 MG TAB PO SCH (12:00)
[2022-12-12 13:59] VITALS: BP 124/58; TEMP 98.7
--- NOTE | 2022-12-12 15:23 | PN ---
Date of Progress Note: 12/11/2022 The patient has had a good day. There has been no evidence of any vascular insufficiency and she is awaiting Neurology consult and possibly could go home tomorrow. There were no localizing signs. Her vital signs have been stable and blood chemistries have all been well, within normal range. HR/MODL Voice ID: [id number] Report ID: [id number]
--- NOTE | 2022-12-12 15:29 | PN ---
Date of Progress Note: 12/12/2022 The patient states she feels fine this morning. She got up and did more physical activity associated with her PT and shortly after PT, she stated she had the multiple jerks of her arms, upper and lower and head and neck, which she says is the same as what was happened in the ER in [place], ended up norma stapleton transferred to [facility] where the workup was not significant for vascular problems on MRIs and CTs. In any event, this episode lasted about a half an hour. Dr. Love has been notified and placed h er on Keppra. Since that time, she has been stable; however, as the normal history of these episodes between, then the possibility of monitoring was discussed with Dr. Love and he will m chip a decision this after he sees her. This can be done on outpatient basis. If possible, she could be discharged later today or in the morning. HR/MODL Voice ID: [id number] Report ID: [id number]
--- NOTE | 2022-12-12 15:35 | PN ---
Date of Progress Note: 12/10/2022 The patient states she feels she is almost back to normal. She is certainly mentally stable. She st ates she does have a few paresthesias scattered in her arm and felt it was not quite with the usual s trength and coordination and this she states is compatible with her past history of these episodes, w hich should have been either to categorize as TIA and CVA. She will be continued to be monitored. M RI showed some remote cerebellar infarcts and meningioma clinically significant apparently; however, this will be evaluated by Dr. Love. She has seen multiple neurologists including over the past few years. She has not seen Dr. Love. So, probably good scenario for her to see s omebody that has not knowledge of her past history. Apparently, there was some question whether thes e tremors were voluntary or involuntary when she was in the ER in [place]. She does state these steward ve been associated with it was called TIA and CVA since the of her rather unexpectedly approximately 3 years ago. There was some question of stress in relationship. HR/MODL Voice ID: [id number] Report ID: [id number]
--- NOTE | 2022-12-12 15:59 | HP ---
Date of Admission: 12/10/2022 Entrance Complaint: Altered mental status, dysphagia, and weakness. History Of Present Illness: The patient presented to the emergency room with the above outlined symp toms. The patient states it has been going on for a couple of hours. She has had previous symptoms, has been seen in [place] and [facility] for probable TIA, CVA symptoms, the last 1 being approximately a month ago. Main complaint which she says was the same that has been in the past where she had diffic ulty with words and she had some weakness in the left upper and lower extremity. No vomiting, no xavi tigo, and no other associated symptoms. Past History: As above. The patient also has a long history of diabetes which is controlled on medi cation and is on Eliquis for DVT and usually takes Lunesta as well. She did have a pulmonary embolus with her DVT. The patient also states she has been under considerable stress since her unexpectedly 3 years ago. Social History: Nonsmoker, nondrinker. Family History: Noncontributory. Physical Examination: General: On examination, well built, elderly female. Vital Signs: Stable vital signs, somewhat dysarthric. Head and Neck: Normocephalic. No neck stiffness. ENT: Negative. Pupils equal, reactive to light and accommodation. Cardiovascular: PMI midclavicular line. Heart sounds normal. Peripheral pulses present and equal b ilaterally. Chest: Clear to P and A. Abdomen: No organomegaly. Bowel sounds present. Extremities: Good tone and movement bilaterally. Reflexes physiologic. Rectal: Deferred. Pelvic: Deferred. Impression: Acute transient ischemic attack, cerebrovascular accident, possible seizures, non-insuli n-dependent diabetes mellitus good controlled, coronary artery disease by history. Plan: The patient will be admitted, monitored. Since she is on Eliquis, it was felt that she would not be a candidate for activities. A neurological workup will ensue and a neurological consult will be obtained. Any other factors, the patient states she has had some what she calls tremors of her up per and lower extremities and head and neck intermittently, not sure with association with the episod e that she presented to the ER with, but question of diagnosis of seizure disorder to be considered a s well. HR/MODL Voice ID: [id number]
--- NOTE | 2022-12-12 23:11 | CON ---
Reason For Consultation: Consultation called because of paroxysmal episodes of confusion, dysarthria , and disorientation. History Of Present Illness: Ms. Isidro is a 67-year-old patient with diabetes mellitus and history of pulmonary embolus with deep vein thrombosis, on chronic anticoagulation, who has paroxysm al episodes of confusion, sudden onset that may last several hours. Events began about 2 years ago a fter the of her . She has had a total of about 7 to 8 events. Events consist again of sudden onset confusion, disorientation, dysarthria, diffuse weakness, which may affect the left more than right upper and lower extremities. She does have memory of the episodes but cannot do all of th e activities that she is normally able to carry out. She has had multiple brain imaging studies that do not reveal acute ischemic or hemorrhagic findings; however, she has a meningioma at the left cere bral pontine angle measuring 1.5 cm that has not changed since the study from October 19, 2008. Most rec ent study, 12/10/2022, MRI of the brain without contrast, again identifying the mass. She has not steward d any evidence of an infection, white blood cell count, and actually, her complete blood count with d ifferential have been normal. Coagulation panel normal. Chemistries, all unremarkable. Basic metab olic panel, liver function studies are unremarkable. Her glucose was about 138, calcium normal. Cre atinine normal. Urinalysis: 75 esterase and specific gravity greater than 1.03, otherwise unremarka ble. Her echocardiogram showed a normal study except for mitral annular calcification. No thrombus or vegetation seen. Normal left ventricular ejection fraction. The patient has had her most recent episode earlier this morning that is completely resolved. Past Medical History: As noted. Allergies: LORAZEPAM. Medications: Metformin, Eliquis, and Lunesta. Family History: Noncontributory. Social History: No alcohol, tobacco, or IV drug use. Review of Systems: No recent fevers, chills, nausea, vomiting, myalgias, arthralgias, but episodic confusion as noted. No other positives on a 10-point systems review. Physical Examination: Vital Signs: Blood pressure 124/58, pulse 64, respiratory rate 16, temperature is 98.7, oxygen satur ation 97% on room air. Weight 175 pounds, height 5 feet 6 inches, BMI 28.2. General: Ms. Isidro is resting comfortably in bed. She is in no acute distress. She has poor denti tion. HEENT: She is otherwise normocephalic and atraumatic. Sclerae are anicteric. Oropharynx is pink an d moist. Neck: Supple. Chest: Clear. Heart: Regular. Extremities: Show no clubbing, cyanosis, or edema. Neurological: She is alert and oriented to person, place, time, and situation. Follows commands jeanette ropriately. Cranial nerves 2 through 12 are intact. Motor 5/5 strength proximally and distally in u pper and lower extremities. Sensation intact in upper and lower extremities. Coordination intact in upper and lower extremities. Her reflexes are symmetric and intact. Gait with good stance, stride, and arm swing. Assessment: Ms. Isidro is a 67-year-old patient with paroxysmal confusion episodes of unclear etiolo gy. The events are stereotyped, and she has had 7 to 8 in 2 years. Her MRI reveals a stable meningi pipo at the left cerebellopontine angle measuring 1.5 cm. Plan: 1.The episodes are suggestive of simple partial seizures, and she may benefit from starting Keppra 2 50 mg a day and that has been done. 2.After discharge, she should follow up in Dr. Love's office with a plan for ambulatory video EE G monitoring to attempt to characterize the episodes with respect to brain activity. 3.She may maintain an event diary. 4.Follow up in Dr. Love's clinic within a month. ZA/JOHAN Voice ID: [id number] Report ID: [id number]
[2022-12-17] MEDS ORDERED: Semaglutide [Ozempic] 2 MG/0.75 ML Pen.Injctr SQ SCH (09:00)
== END 2022-12-12 15:19 | disposition home or self-care (01) | DRG 101 ==
LOC: ER 11:18 → ERHOLD 12:54 → 4TH 14:27
PROVIDERS: ADMIT Family Medicine; ATTEND Family Medicine
DX: G40.109 Localization-related (focal) (partial) symptomatic epilepsy and epileptic syndromes with simple partial seizures, not intractable, without status epilepticus (principal); R47.01 Aphasia; I10 Essential (primary) hypertension; E11.9 Type 2 diabetes mellitus without complications; I25.10 Atherosclerotic heart disease of native coronary artery without angina pectoris; Z63.4 Disappearance and death of family member; Z88.8 Allergy status to other drugs, medicaments and biological substances; Z79.84 Long term (current) use of oral hypoglycemic drugs; Z86.73 Personal history of transient ischemic attack (TIA), and cerebral infarction without residual deficits; Z79.01 Long term (current) use of anticoagulants; Z86.718 Personal history of other venous thrombosis and embolism; Z79.899 Other long term (current) drug therapy; Z86.711 Personal history of pulmonary embolism
CPT/HCPCS: 36415; 70450; 70496; 70498; 70551; 71045; 80048; 80076; 81001; 82565; 82947; 83735; 83880; 84484; 85025; 85610; 86140; 93005; 93306; 96361; 96374; 96375; 97116; 97161; 97530; 99285; J2405; J7030; Q9967

== ENCOUNTER 2022-12-15 12:09 | Inpatient (IN) | payer OTHER ==
--- OUTSIDE RECORDS SUMMARY | 2022-12-15 12:24 | XMS REPORT | Continuity of Care Document ---
:1955 Author Organization [facility] t Address [address] [place] [address] [place] [id number] Care Team Providers Name Role Phone Asked, No Pcp Primary Care Physician Unavailable Dell Monroe Attending Clinician Unavailable Dell Monroe Attending Clinician Unavailable Nurys Vance RN Attending Clinician Unavailable RADHA PALOMARES Attending Clinician Unavailable Arleth Miranda Attending Clinician Radha Palomares DO Attending Clinician SANTOSH GARZA Attending Clinician Unavailable SANTOSH GARZA Attending Clinician Unavailable JOSÉ MIGUEL MEDINA Attending Clinician Unavailable Deni MEDINA, Misael Gunn Attending Clinician Grace MEDINA, Matt Attending Clinician Adam Becerril MD, José Miguel Attending Clinician Christin Anderson Attending Clinician [email or web address] Attending Clinician Unavailable Andreia Buckley Attending Clinician MARCIAL VAUGHAN Attending Clinician Unavailable Marcial Vaughan MD Attending Clinician Larias Henderson Attending Clinician Piotr Josue Attending Clinician Nimesh Parra Attending Clinician VERNA BRUSH Attending Clinician Unavailable Coretta Tavares RN Attending Clinician Unavailable Doctor Unassigned, [place] Attending Clinician Unavailable SAMUEL ANN Attending Clinician Unavailable Madhavi Bryan DO Attending Clinician Samuel Ann MD Attending Clinician FAN JARAMILLO Attending Clinician Unavailable FAN JARAMILLO Attending Clinician Unavailable Darian Glass MD Attending [...] Attending Clinician Unavailable Maribell Ramirez Attending Clinician [phone] Prudencio Ríos DO Attending Clinician CLIFFORD REED Attending Clinician Unavailable Kelsey Jimenez RN Attending Clinician Jayne Anderson Attending Clinician JAYNE LIPSCOMB Attending Clinician Unavailable GABINO GUILLAUME Attending Clinician Unavailable ZANDER ZHANG Attending Clinician Unavailable NOE CODY III Attending Clinician Unavailable GREGORY CARTER Attending Clinician Unavailable Ivett Gomez RN Attending Clinician Casa Pickard Attending Clinician Nurse, [facility] Attending Clinician Unavailable Unknown, Attending Attending Clinician Unavailable Sara Irwin PA-C Attending Clinician Dell Monroe Admitting Clinician Unavailable RADHA PALOMARES Admitting Clinician Unavailable Radha Palomares DO Admitting Clinician MATT EDWARDS Admitting Clinician Unavailable Matt Edwards MD Admitting Clinician [email or web address] Admitting Clinician Unavailable MARCIAL VAUGHAN Admitting Clinician Unavailable SAMUEL ANN Admitting Clinician Unavailable Samuel Ann MD Admitting Clinician FAN JARAMILLO Admitting Clinician Unavailable AUTUMN MALIK Admitting Clinician Unavailable MADHAVI BRYAN Admitting Clinician Unavailable Tod Singh MD Admitting Clinician TOD SINGH Admitting Clinician Unavailable FARIDEH STONE Admitting Clinician Unavailable JAMES_Celso Admitting Clinician Unavailable JAYNE LIPSCOMB Admitting Clinician Unavailable Payers Payer Name Policy Type Policy Number Effective Date Expiration Date Torie salazar [facility] [id number] 2019 00:00:00 [facility] HEALTH [id number] (MEDICARE 00:00:00 REPLACEMENT HMO) MANAGED MEDICARE [id number] 2018 HMO GENERIC 00:00:00 [facility] MEDICARE [id number] 2018 COMPLETE 00:00:00 Problems Condition Condition Condition Status Onset Resolution Last Treating Co mments Source Name Details Category Date Date Treatment Clinician Date Dizziness Dizziness Disease Active Uni vers 7-02 ity of 00:00: [place] 00 Medical Branch Abnormal Abnormal Disease Active Unive rs involuntar involuntar 6-05 it y of [place] movement [place] Disorienta Disorienta Disease Active U nivers tion tion 6- ity of 00:00: [place] 00 Medical Branch UTI UTI Disease Active Univers (urinary (urinary 8-16 ity of tract tract 00:00: [place] infection) infection) 00 Me dical Branch Peripheral Peripheral Disease Active U nivers neuropathy neuropathy 8-16 it y of 00:00: [place] 00 Medical Branch Meningioma Meningioma Disease Active 2022-0 U nivers of of 8-16 ity of cerebellum cerebellum 00:00: [place] (left) (left) 00 Medical Branch Difficulty Difficulty Disease Active 2021- U nivers with with 8-15 ity of speech speech 00:00: [place] [facility] Pulmonary Pulmonary Disease Active Uni vers embolism, embolism, 4-22 ity of bilateral bilateral [place] Hypotensio Hypotensio Disease Active U nivers n n 8-20 ity of 00:00: Medical Branch Meningioma Meningioma Disease Active M ethodi 12-05 st 00:00: [facility] 00 l Dizziness Dizziness Disease Active Met hodi 12-02 st 00:00: [facility] 00 l Cellulitis Cellulitis Disease Active 2019- U nivers of right of right 4-17 ity of lower lower 00:00: [place] extremity extremity 00 Medi corby without without Branch foot foot Insect Insect Disease Active Univers bite of bite of 4-17 ity of left lower left lower 00:00: [place] extremity, extremity, 00 Me dical initial initial Branch encounter encounter Itching Itching Disease Active Univers 4-17 ity of 00:00: [place] [facility] Dyspnea Dyspnea Disease Active 2018-06 Univers 1-23 ity of 00:00: [place] [facility] Acute deep Acute deep Disease Active U nivers vein vein 6-28 ity of thrombosis thrombosis 00:00: [place] (DVT) of (DVT) of 00 Medica l proximal proximal Branch vein of vein of lower lower extremity extremity Pulmonary Pulmonary Disease Active Uni vers embolism embolism 6-22 ity of 00:00: [place] [facility] Obesity Obesity Disease Active Univers (BMI (BMI 6-22 ity of 30-39.9) 30-39.9) 00:00: [place] [facility] Transient Transient Problem Active 2022-07-07 Memoria ischemic ischemic 23:39:55 l attack attack Yong (disorder) (disorder) Active Problem 07/07/2022 [facility] [place] Diabetes Diabetes Problem Active 2022-07-07 Memoria mellitus mellitus 23:39:55 l (disorder) (disorder) He rmann Active Problem 07/07/2022 [facility] Restless Restless Problem Active 2022-07-07 Memoria legs legs 23:39:55 l (disorder) (disorder) He rmann Active Problem 07/07/2022 [facility] [place] [facility] Deep Deep Problem Active 2022-07-07 Memor ia venous venous 23:39:55 l thrombosis thrombosis He rmann of lower of lower extremity extremity (disorder) (disorder) Active Problem 07/07/2022 [facility] [place] [facility] Hyperlipid Hyperlipi Problem Active 2022-07-07 Memoria emia demia 23:39:55 l (disorder) (disorder) He rmann Active Problem 07/07/2022 [facility] [place] [facility] Disease Disease Problem Active 2022-07-07 M emoria caused by caused by 23:39:55 l 2018-nCoV nCoV Herm benedicto Active Problem 07/07/2022 [facility] [place] [facility] Vertigo Vertigo Problem Active 2022-07-07 Me moria (finding) (finding) 23:39:55 l Active Yong Problem 07/07/2022 [facility] [place] [facility] Stammering Stammerin Problem Active 2022-07-07 Memoria (finding) g 23:39:55 l (finding) Yong Active Problem 07/07/2022 [facility] [place] [facility] 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 Ativan Drug Active [facility] melatoni Drug Active [facility] Ativan Drug Active [facility] No Known No Known Active Memori a Medicati Medicati l on on [place] Allergie Allergie s s Ativan Ativan Active Memoria l [place] Ativan Allergy Active Moderate Hallucinatio D evoted to Medical substanc Group e Lipitor Allergy Active Moderate Hallucinatio Devoted to Medical substanc Group e Family History Family Member Diagnosis Comments Start Date Stop Date Source Maternal grandmother Deep vein [facility] Natural mother Deep vein [facility] Other Deep [facility] Social History Social Habit Start Date Stop Date Quantity Comments Source History SDOH Social Unive rsity of Connections Get [place] Med ical Together Branch History SDOH Social Unive rsity of Connections [facility] History SDOH Social Unive rsity of Connections [place] [facility] Membership Branch History SDOH Social Unive rsity of Connections [place] [facility] Meetings Branch History SDOH University o f Alcohol Std Drinks [place] [facility] History SDOH University o f Alcohol Binge [place] [facility] al [facility] History of tobacco Passive smoker Un iversity of use [place] [facility] Gender identity [facility] Sexual orientation Method ist Hospital History SDOH Social 2022-12-03 2022-12-03 5 Unive rsity of Connections Phone 00:00:00 00:00:00 [place] M edical Branch History SDOH Social 2022-12-03 2022-12-03 4 Unive rsity of Connections Living 00:00:00 00:00:00 [place] [facility] History SDOH 2022-12-03 2022-12-03 0 [...] University o f Housing Homeless 00:00:00 00:00:00 [place] Me dical Last Year Branch History SDNM 2022-12-03 2022-12-03 1 University o f Alcohol Frequency 00:00:00 00:00:00 [place] M edical Branch History SDOH 2022-12-03 2022-12-03 5 University o f Financial 00:00:00 00:00:00 [place] [facility] History SDNM Food 2022-12-03 2022-12-03 1 Univers ity of Worry 00:00:00 00:00:00 [place] [facility] History SDNM Food 2022-12-03 2022-12-03 1 Univers ity of Scarcity 00:00:00 00:00:00 [place] [facility] History [facility] 2022-12-03 2022-12-03 2 University o f Transport Med 00:00:00 00:00:00 [place] Medic al Branch History [facility] 2022-12-03 2022-12-03 2 University o f Transport Non-Med 00:00:00 00:00:00 [facility] ed[facility] Branch Tobacco Comment 2022-12-02 2022-12-02 Pt refuses Universit y of 00:00:00 00:00:00 counseling [facility] [place] haven't smoked in Branch 45 years Exposure to 2022-08-29 2022-09-08 Not sure [facility] SARS-CoV-2 (event) 00:00:00 00:34:00 [facility] History of Social 2021-09-07 2021-09-[address] function 00:00:00 00:00:00 Hospital Alcohol intake 2021-09-07 2021-09-07 Ex-drinker [facility] 00:00:00 00:00:00 (finding) Hospital Alcohol Comment 2020-12-02 2020-12-02 a few drinks a Metho dist 00:00:00 00:00:00 year Hospital Tobacco use and 2020-12-02 2020-12-02 Smokeless tobacco Me thodist exposure 00:00:00 00:00:00 non-user Hospital Education 2018-11-22 2018-11-22 11 University of 00:00:00 00:00:00 [facility] Sex Ass[birth year] At [birth year] [facility] 00:00:00 00:00:00 Hospital Smoking Status Start Date Stop Date Source Tobacco smoking status 2022-03-13 18:17:28 2022-03-13 18:17:28 [place] Never smoked tobacco [facility] [place] Medications Ordered Filled Start Stop Current Ordering Indication Dosage Frequency Signature Comments Components Source Medication Medication Date Date Medication? Clinician (SIG) Name Name magnesium 2022-0 2022- Yes 400mg 400 mg, Uni vers oxide 12-04 07-08 Oral, BID, ity of (MAG-OX 01:00: 00:59 8 doses, [place] 400) tablet 00 :00 First dose Me dical 400 mg on Sat Branch 12/03/22 at 2000, Last dose on Sat12/07/22 at 0800, DAKOTAH insulin 2022-0 Yes 5U 5 Units, Univer s glargine 12-03 Subcutaneo ity o f (LANTUS 14:00: [place], DAILY, [place] U-100) 00 First dose Medical injection 5 on [facility] 12/03/22 at 0900, Until Discontinu ed citalopram Yes 40mg 40 mg, Unive rs (CELEXA) 12-03 Oral, ity of tablet 40 14:00: DAILY, [place] mg 00 First dose Medical on [facility] 12/03/22 at 0900, Until Discontinu ed, Routine gabapentin Yes 300mg 300 mg, Uni vers (NEURONTIN) 12-03 Oral, TID, it y of capsule 300 13:00: First dose [place] mg 00 (after Medical last Branch modificati on) on Sat12/03/22 at 0800, Until Discontinu ed, Routine metFORMIN 0 Yes 1000mg 1,000 mg, U nivers (GLUCOPHAGE 12-03 Oral, BID ity of ) tablet 13:00: MEALS, [place] 1,000 mg 00 First dose Medic al on [facility] 12/03/22 at 0800, Until Discontinu ed, Routine pramipexole Yes .25mg 0.25 mg, U nivers [...] over 60 Medica l (4 %) Minutes, Branch infusion 2 ONCE NOW, g 1 dose, On [facility] 12/03/22 at 0800, Routine Sliding Yes Subcutaneo Univ ers Scale 12-03 us, TID ity of Insulin - 02:00: MEALS+HS, [place] Lispro 00 First dose Medical (HumaLOG) on [facility] 12/02/22 at 2100, Until Discontinu ed, Routine gabapentin 2022- Yes [id number] 300mg Take 1 Univers 300 mg 12-03 capsule by ity of capsule 00:00: 04:59 mouth in [place] 00 :00 the [facility] and 1 capsule at noon and 1 capsule in the evening. Do all this for 30 days. gabapentin 0 2022- Yes [id number] 300mg Take 1 Univers 300 mg 12-03 capsule by ity of capsule 00:00: 04:59 mouth in [place] 00 :00 the [facility] and 1 capsule at noon and 1 capsule in the evening. Do all this for 30 days. magnesium 0 2022- Yes [id number] 400mg Take 400 Univers oxide 420 12-03 07-11 mg by ity of mg Tab 00:00: 04:59 mouth in [place] 00 :00 the [facility] and 400 mg in the evening. Do all this for 7 days. magnesium 0 2022- Yes [id number] 400mg Take 400 Univers oxide 420 12-03 07-11 mg by ity of mg Tab 00:00: 04:59 mouth in [place] 00 :00 the [facility] and 400 mg in the evening. Do all this for 7 days. NaCl 0.9% 2022- No 1000mL at 100 Uni vers (NS) IV 12-02 07-03 mL/hr, IV ity of infusion 23:30: 12:10 Infusion, [place] 1,000 mL 00 :04 CONTINUOUS Medic al , Starting Branch on [place] 12/02/22 at 1830, Until 12/03/22 at 0710, Routine glucagon Yes 1mg 1 mg, Univers (GLUCAGEN 12-02 Intramuscu ity of DIAGNOSTIC 23:14: lar, PRN, [place] KIT) 29 Starting Medical injection 1 on [facility] mg 12/02/22 at 1814, Until Discontinu ed, DAKOTAH, Blood Glucose < or = 70 mg/dL and patient is NPO, unable to swallow or has mental changes. dextrose 50 Yes 25mL 25 mL, Univ ers % in water 12-02 Slow IV ity of (D50W) 23:14: Push, PRN, [place] injection 29 Starting Medica l 25 mL on [facility] 12/02/22 at 1814, Until Discontinu ed, DAKOTAH, Blood Glucose < or = 70 mg/dL and patient is NPO, unable to swallow or has mental status changes. acetaminoph Yes 650mg 650 mg, Un meri en 12-02 Oral, ity of (TYLENOL) 23:13: Q6HPRN, [place] tablet 650 48 Starting Medic al mg on [facility] 12/02/22 at 1813, Until Discontinu ed, Routine, Pain (scale 1-3) NaCl 0.9% 2022- No 1000mL at 999 Uni vers (NS) bolus 12-0202 mL/hr, ity of infusion 22:15: 23:07 1,000 mL, [place] 1,000 mL 00 :00 IV Medical Infusion, Branch ONCE, 1 dose, On [place] 12/02/22 at 1715, DAKOTAH iopamidol 2022- No [id number] 83mL 83 mL, U nivers (ISOVUE 12-02 Intravenou ity o f 370-500 mL) 22:15: 22:15 s, ONCE, 1 [place] injection 00 :00 dose, On Medica l 83 mL [place] 12/02/22 Branch at 1715, Routine NaCl 0.9% 2022- No 1000mL at 999 Uni vers (NS) bolus 12-02- mL/hr, ity of infusion 20:00: 21:28 1,000 [...] Therapy: Other (see Comments) pramipexole 2022- Yes [id number] .25mg Take 1 Univers 0.25 mg 11-05 tablet by ity of tablet 00:00: 05:59 mouth in [place] 00 :00 the Medical morning Branch and 1 tablet at noon and 1 tablet in the evening. Do all this for 180 days. pramipexole 2022- Yes [id number] .25mg Take 1 Univers 0.25 mg 11-05 tablet by ity of tablet 00:00: 05:59 mouth in [place] 00 :00 the morning Branch and 1 tablet at noon and 1 tablet in the evening. Do all this for 180 days. pramipexole 2022- Yes [id number] .25mg Take 1 Univers 0.25 mg 11-05 tablet by ity of tablet 00:00: 05:59 mouth in [place] 00 :00 the [facility] Branch and 1 tablet at noon and 1 tablet in the evening. Do all this for 180 days. pramipexole 2022- Yes [id number] .25mg Take 1 Univers 0.25 mg 11-05 tablet by ity of tablet 00:00: 05:59 mouth in [place] 00 :00 the [facility] and 1 tablet at noon and 1 tablet in the evening. Do all this for 180 days. gabapentin 2022- Yes [id number] 600mg Take 2 Univers 300 mg 11-05 capsules ity of capsule 00:00: 04:59 by mouth [place] 00 :00 in the [facility] and 2 capsules at noon and 2 capsules in the evening. Do all this for 30 days. gabapentin 2022- Yes [id number] 600mg Take 2 Univers 300 mg 11-05 capsules ity of capsule 00:00: 04:59 by mouth [place] 00 :00 in the [facility] morning Branch and 2 capsules at noon and 2 capsules in the evening. Do all this for 30 days. gabapentin 2022- No [id number] 600mg Take 2 Univers 300 mg 11-05 capsules ity of capsule 00:00: 00:00 by mouth [place] 00 :00 in the [facility] and 2 capsules at noon and 2 capsules in the evening. Do all this for 30 days. gadobenate 2022- No [id number] .2mL/kg 16.32 mL Univers dimeglumine 11-04 (0.2 mL/kg i ty of (MULTIHANCE 16:00: 16:00 ?81.6 kg), [place] -15 mL) 00 :00 Intravenou Medica l injection s, ONCE, 1 Bran ch 16.32 mL dose, On 11/04/22 at 1100, Routine levoFLOXaci 2022- No 250mg 250 mg, U nivers n 11-04 Oral, Q24H ity of (LEVAQUIN) 00:45: 17:07 ABX, 3 [place] tablet 250 00 :05 doses, Medical mg First dose Branch on Sat11/03/22 at 1945, Last dose on 11/05/22 at [...] First dose [place] mg 00 on [facility] 11/02/22 at Branch 0800, Until Discontinu ed, Routine gabapentin 2022- No 900mg 900 mg, Un meri (NEURONTIN) 11-0205 Oral, TID, i ty of capsule 900 13:00: 14:44 First dose [place] mg 00 :53 on [facility] 11/02/22 at Branch 0800, Until Discontinu ed, Routine apixaban 2022- No 1477 5mg 5 mg, Univers (ELIQUIS) 11-02 Oral, BID, ity of tablet 5 mg 13:00: 19:33 First dose [place] 00 :24 on [facility] 11/02/22 at Branch 0800, Until Discontinu ed, Routine
Indicatio ns: DVT/PE glucagon Yes 1mg 1 mg, Univers (GLUCAGEN 11-02 Intramuscu ity of DIAGNOSTIC 11:31: [place], PRN, [place] KIT) 20 Starting Medical injection 1 on [facility] 11/02/22 at 0631, Until Discontinu ed, DAKOTAH, Blood Glucose < or = 70 mg/dL and patient is NPO, unable to swallow or has mental changes. dextrose 50 Yes 25mL 25 mL, Univ ers % in water 11-02 Slow IV ity of (D50W) 11:31: Push, PRN, [place] injection 20 Starting Medica l 25 mL on [facility] 11/02/22 at 0631, Until Discontinu ed, DAKOTAH, Blood Glucose < or = 70 mg/dL and patient is NPO, unable to swallow or has mental status changes. pramipexole Yes .25mg 0.25 mg, U nivers (MIRAPEX) 11-02 Oral, TID, ity of tablet 0.25 07:45: First dose [place] mg 00 on [facility] 11/02/22 at Branch 0245, Until Discontinu ed, [...] 32 :00 dose, Medical Starting Branch on [facility]i 11/01/22 at 2318, Until [facility] 11/01/22 at 2327, Routine, Agitation, mri acetaminoph Yes 650mg 650 mg, Un meri en 11-02 Oral, ity of (TYLENOL) 02:19: Q6HPRN, [place] tablet 650 40 Starting Medic al mg on [facility] Branch 11/01/22 at 2119, Until Discontinu ed, Routine, Pain (scale 4-6) docusate Yes 100mg 100 mg, Unive rs (COLACE) 11-02 Oral, ity of capsule 100 02:19: QDAILYPRN, [place] mg 40 Starting Medical on Geri Branch 11/01/22 at 2119, Until Discontinu ed, Routine, Constipati on iopamidol 2022- No [id number] 89mL 89 mL, U nivers (ISOVUE 11-01 Intravenou ity o f 370-500 mL) 19:51: 19:51 s, ONCE, 1 [place] injection 00 :00 dose, On Medica l 89 mL [facility] 11/01/22 Branch at 1515, Routine diazePAM 2022- No 5mg 5 mg, Slow Un meri (VALIUM) 11-01 IV Push, ity of injection 5 19:30: 19:30 ONCE, 1 [place] mg 00 :00 dose, On Medical [facility] 11/01/22 Branch at 1430, STAT cefTRIAXone 2022- No 1000mg 1,000 mg, Univers (ROCEPHIN) 09-08 04-08 IV ity of 1,000 mg in 08:15: 08:18 Piggyback, [place] NaCl 0.9% 00 :00 ONCE, 1 Medical (NS) 100 mL dose, On Bran ch MINI-BAG 09/08/22 at 0315, Administer over 30 Minutes, 100 mL
Reas on for Anti-Infec tive: Documented Infection< br>Documen beth Infection Site: Urine<br&g t;Duration of Therapy: Other (see Comments) iopamidol 0 3- No [id number] 120mL 120 mL, Univers (ISOVUE 4-08 04-08 [...] Until Discontinu ed, 10 mL cefdinir Yes [id number] 300mg Take 1 Un meri 300 mg 4-08 capsule by ity of capsule 00:00: mouth [place] 00 every 12 Medical (twelve) Branch hours. cefdinir 0 2022- No [id number] 300mg Take 1 U nivers 300 mg 4-08 06-05 capsule by ity of capsule 00:00: 00:00 mouth [place] 00 :00 every 12 Medical (twelve) Branch hours. lamoTRIgine 2021-06 Yes See Memori a 200 mg oral 1-17 Instructio l tablet 20:03: ns, TAKE 1 [place]ian[place] nn 00 TABLET BY MOUTH TWICE A DAY^1R1,1R 4, # 60 tab, 3 Refill(s), Pharmacy: [facility], 162.56, cm, 03/13/22 13:29:00 CDT, Height, 80, kg, 03/13/22 13:29:00 CDT, Weight lamoTRIgine 2021-06 Yes See Memori a 200 mg oral 1-17 Instructio l tablet 20:03: ns, TAKE 1 [place] nn 00 TABLET BY MOUTH TWICE A DAY^1R1,1R 4, # 60 tab, 3 Refill(s), Pharmacy: [facility], 162.56, cm, 03/13/22 13:29:00 CDT, Height, 80, kg, 03/13/22 13:29:00 CDT, Weight lamoTRIgine 2021-06 Yes See Memori a 200 mg oral 1-17 Instructio l tablet 20:03: ns, TAKE 1 [place] nn 00 TABLET BY MOUTH TWICE A DAY^1R1,1R 4, # 60 tab, 3 Refill(s), Pharmacy: [facility], 162.56, cm, 03/13/22 13:29:00 CDT, Height, 80, kg, 03/13/22 13:29:00 CDT, Weight lamoTRIgine 2021-06 Yes See Memori a 200 mg oral 1-17 Instructio l tablet 20:03: ns, TAKE 1 [place] nn 00 TABLET BY MOUTH TWICE A DAY^1R1,1R 4, # 60 tab, 3 Refill(s), Pharmacy: [facility], 162.56, cm, 03/13/22 13:29:00 CDT, Height, 80, kg, 03/13/22 13:29:00 CDT, Weight lamoTRIgine 2021-06 Yes See Memori a 200 mg oral 1-17 Instructio l tablet 20:03: ns, TAKE 1 [place] nn 00 TABLET BY MOUTH TWICE A DAY^1R1,1R 4, # 60 tab, 3 Refill(s), Pharmacy: [facility], 162.56, cm, 03/13/22 13:29:00 CDT, Height, 80, kg, 03/13/22 13:29:00 CDT, Weight lamoTRIgine 0 Yes See Memori a 200 mg oral 8-22 Instructio l tablet 18:34: ns, TAKE [place] 00 ONE (1) TABLET BY MOUTH TWICE DAILY, # 60 tab, 3 Refill(s), Pharmacy: [facility], 165.1, cm, 01/22/22 13:19:00 CDT, Height, 75.682, kg, 01/22/22 13:19:00 CDT, Weight lamoTRIgine 0 Yes See Memori a 200 mg oral 8-22 Instructio l tablet 18:34: ns, TAKE [place] 00 ONE (1) TABLET BY MOUTH TWICE DAILY, # 60 tab, 3 Refill(s), Pharmacy: [facility], 165.1, cm, 01/22/22 13:19:00 CDT, Height, 75.682, kg, 01/22/22 13:19:00 CDT, Weight lamoTRIgine 2021-0 Yes See Memori a 200 mg oral 8-22 Instructio l tablet 18:34: ns, TAKE [place] 00 ONE (1) TABLET BY MOUTH TWICE DAILY, # 60 tab, 3 Refill(s), Pharmacy: [facility], 165.1, cm, 01/22/22 13:19:00 CDT, Height, 75.682, kg, 01/22/22 13:19:00 CDT, Weight lamoTRIgine 2021-0 Yes See Memori a 200 mg oral 8-22 Instructio l tablet 18:34: ns, TAKE [place] 00 ONE (1) TABLET BY MOUTH TWICE DAILY, # 60 tab, 3 Refill(s), Pharmacy: [facility], 165.1, cm, 01/22/22 13:19:00 CDT, Height, 75.682, kg, 01/22/22 13:19:00 CDT, Weight lamoTRIgine 2021-0 Yes See Memori a 200 mg oral 8-22 Instructio l tablet 18:34: ns, TAKE Yong 00 ONE (1) TABLET BY MOUTH TWICE DAILY, # 60 tab, 3 Refill(s), Pharmacy: [facility], 165.1, cm, 01/22/22 13:19:00 CDT, Height, 75.682, kg, 01/22/22 13:19:00 CDT, Weight rosuvastati 2021-0 Yes 0 Memori a n 5 mg oral 8-22 Refill(s) l tablet 18:31: Yong 00 rosuvastati 2021-0 Yes 0 Memori a n 5 mg oral 8-22 Refill(s) l tablet 18:31: [place] 00 rosuvastati 2021-0 Yes 0 Memori a n 5 mg oral 8-22 Refill(s) l tablet 18:31: Yong 00 rosuvastati 2021-0 Yes 0 Memori a n 5 mg oral 8-22 Refill(s) l tablet 18:31: [place] 00 rosuvastati 2021-0 Yes 0 Mem[facility] a n 5 mg oral 8-22 Refill(s) l tablet 18:31: [place] pioglitazon 2021-0 Yes 0 Memori a e 30 mg 8-22 Refill(s) l oral tablet 18:20: Gul[place] n pioglitazon 2021-0 Yes 0 Memori a [...] Refill(s) l oral tablet 18:20: [place] n lisinopriL 2-0 2022- No [id number] 5mg Take 1 [facility] 5 mg tablet 8-17 11-16 tablet by it y of 00:00: 05:59 mouth in [place] 00 :00 [facility] for 90 days. lisinopriL 2-0 2022- No [id number] 5mg Take 1 [facility] 5 mg tablet 8-17 11-16 tablet by it y of 00:00: 05:59 mouth in [place] 00 :00 [facility] for 90 days. lisinopriL 2022-0 2022- No [id number] 5mg Take 1 [facility] 5 mg tablet 8-17 11-16 tablet by it y of 00:00: 05:59 mouth in [place] 00 :00 [facility] for 90 days. lisinopriL 2022-0 2022- No [id number] 5mg Take 1 Univers 5 mg tablet 8-17 11-16 tablet by it y of 00:00: 05:59 mouth in [place] 00 :00 [facility] for 90 days. lisinopriL 2022-0 2022- No [id number] 5mg Take 1 Univers 5 mg tablet 8-17 11-16 tablet by it y of 00:00: 05:59 mouth in [place] 00 :00 [facility] for 90 days. lisinopriL 2022-0 2022- No [id number] 5mg Take 1 Univers 5 mg tablet 01-17 tablet by it y of 00:00: 05:59 mouth in [place] 00 :00 [facility] for 90 days. lisinopriL 0 2021- No [id number] 5mg Take 1 Univers 5 mg tablet 01-17 tablet by it y of 00:00: 05:59 mouth in [place] 00 :00 [facility] for 90 days. lisinopriL 0 Yes 5mg 5 mg, Univer s (PRINIVIL,Z 01-16 Oral, ity of ESTRIL) 15:00: DAILY, [place] tablet 5 mg 00 First dose Me dical on [facility] 01/16/22 at 1000, Until Discontinu ed, Routine cefTRIAXone 2021- No 1000mg 1,000 mg, Univers (ROCEPHIN) 01-16 Intravenou it y of 1,000 mg in [...] Yes 200mg 200 mg, Un meri (LAMICTAL) -16 Oral, BID, ity of tablet 200 13:00: First dose [place] mg 00 on [facility] 01/16/22 at Branch 0800, Until Discontinu ed, Routine gabapentin 2021-0 Yes 300mg 300 mg, Uni vers (NEURONTIN) 16 Oral, TID, it y of capsule 300 13:00: First dose [place] mg 00 on [facility] 01/16/22 at Branch 0800, Until Discontinu ed, Routine pramipexole 2021-0 Yes 2mg 2 mg, Unive rs (MIRAPEX) -16 Oral, TID, ity of tablet 2 mg 02:30: First dose [place] 00 (after Medical last Branch modificati on) on Sat01/15/22 at 2130, Until Discontinu ed rosuvastati Yes 5mg 5 mg, Unive rs n (CRESTOR) 8-16 Oral, QHS, it y of tablet 5 mg 02:00: First dose on [facility] 01/15/22 at Jet 2100, Until Discontinu ed, Routine apixaban 0 Yes 5mg 5 mg, Univers (ELIQUIS) 8-16 Oral, BID, ity of tablet 5 mg 01:00: First dose on [facility] 01/15/22 at Jet 2000, Until Discontinu ed, Routine
Indicatio ns: DVT/PE famotidine 0 Yes 20mg 20 mg, Unive rs (PEPCID AC) 8-16 Oral, BID, it y of tablet 20 01:00: First dose [place] mg 00 on [facility] 01/15/22 at Jet 1999, Until Discontinu ed, Routine Insulin Yes [id number] 5U inject 5 Un meri Glargine 8-16 Units ity of (BASAGLAR 00:00: under the [place] as KWIKPEN 00 skin in Medical U-100 [facility] INSULIN) morning. 100 unit/mL (3 mL) injection Insulin Yes [id number] 5U inject 5 Un meri Glargine 8-16 Units ity of (BASAGLAR 00:00: under the [place] as KWIKPEN 00 skin in Medical U-100 [facility] INSULIN) morning. 100 unit/mL (3 mL) injection Insulin Yes [id number] 5U inject 5 Un meri Glargine 8-16 Units ity of (BASAGLAR 00:00: under the [place] as KWIKPEN 00 skin in Medical U-100 the Jet INSULIN) morning. 100 unit/mL (3 mL) injection Insulin 0 Yes [id number] 5U inject 5 Un meri Glargine 8-16 Units ity of (BASAGLAR 00:00: under the [place] as KWIKPEN 00 skin in Medical U-100 the [facility] INSULIN) morning. 100 unit/mL (3 mL) injection Insulin 0 Yes [id number] 5U inject 5 Un meri Glargine 8-16 Units ity of (BASAGLAR 00:00: under the [place] as KWIKPEN 00 skin in Medical U-100 the Branch INSULIN) morning. 100 unit/mL (3 mL) injection Insulin 0 Yes [id number] 5U inject 5 Un meri Glargine 8-16 Units ity of (BASAGLAR 00:00: under the [place] as KWIKPEN 00 skin in Medical U-100 the Branch INSULIN) morning. 100 unit/mL (3 mL) injection Insulin 0 Yes [id number] 5U inject 5 Un meri Glargine 8-16 Units ity of (BASAGLAR 00:00: under the [place] as KWIKPEN 00 skin in Medical U-100 the Branch INSULIN) morning. 100 unit/mL (3 mL) injection Insulin Yes [id number] 5U inject 5 Un meri Glargine 8-16 Units ity of (BASAGLAR 00:00: under the [place] as KWIKPEN 00 skin in Medical U-100 the Branch INSULIN) morning. 100 unit/mL (3 mL) injection Insulin 0 Yes [id number] 5U inject 5 Un meri Glargine 8-16 Units ity of (BASAGLAR 00:00: under the [place] as KWIKPEN 00 skin in Medical U-100 the Branch INSULIN) morning. 100 unit/mL (3 mL) injection Insulin 0 Yes [id number] 5U inject 5 Un meri Glargine 8-16 Units ity of (BASAGLAR 00:00: under the [place] as KWIKPEN 00 skin in Medical U-100 the Branch INSULIN) morning. 100 unit/mL (3 mL) injection Insulin 0 Yes [id number] 5U inject 5 Un meri Glargine 8-16 Units ity of (BASAGLAR 00:00: under the [place] as KWIKPEN 00 skin in Medical U-100 the Branch INSULIN) morning. 100 unit/mL (3 mL) injection Insulin 0 Yes [id number] 5U inject 5 Un meri Glargine 8-16 Units ity of (BASAGLAR 00:00: under the [place] as KWIKPEN 00 skin in Medical U-100 the Branch INSULIN) morning. 100 unit/mL (3 mL) injection rosuvastati 2021- No [id number] 5mg Take 1 Univers n 5 mg 8-16 11-15 tablet by ity of tablet 00:00: 05:59 mouth at [place] 00 :00 bedtime Medical for 90 Branch days. pioglitazon No [id number] 30mg Take 1 Univers e 30 mg 8-16 11-15 tablet by ity of tablet 00:00: 05:59 mouth in [place] 00 :00 the Medical morning Branch for 90 days. rosuvastati No [id number] 5mg Take 1 Univers n 5 mg 8-16 11-15 tablet by ity of tablet 00:00: 05:59 mouth at [place] 00 :00 bedtime Medical for 90 Branch days. pioglitazon No [id number] 30mg Take 1 Univers e 30 mg 8-16 11-15 tablet by ity of tablet 00:00: 05:59 mouth in [place] 00 :00 the Medical morning Branch for 90 days. rosuvastati No [id number] 5mg Take 1 Univers n 5 mg 8-16 11-15 tablet by ity of tablet 00:00: 05:59 mouth at [place] 00 :00 bedtime Medical for 90 Branch days. pioglitazon No [id number] 30mg Take 1 Univers e 30 mg 8-16 11-15 tablet by ity of tablet 00:00: 05:59 mouth in [place] 00 :00 the Medical morning Branch for 90 days. rosuvastati No [id number] 5mg Take 1 Univers n 5 mg 8-16 11-15 tablet by ity of tablet 00:00: 05:59 mouth at [place] 00 :00 bedtime Medical for 90 Branch days. pioglitazon 2021- No [id number] 30mg Take 1 Univers e 30 mg 8-16 11-15 tablet by ity of tablet 00:00: 05:59 mouth in [place] 00 :00 the Medical morning Branch for 90 days. rosuvastati 2021- No [id number] 5mg Take 1 Univers n 5 mg 8-16 11-15 tablet by ity of tablet 00:00: 05:59 mouth at [place] 00 :00 bedtime Medical for 90 Branch days. pioglitazon 2021- No [id number] 30mg Take 1 Univers e 30 mg 8-16 11-15 tablet by ity of tablet 00:00: 05:59 mouth in [place] 00 :00 the Medical morning Branch for 90 days. rosuvastati 2021- No [id number] 5mg Take 1 Univers n 5 mg 8-16 11-15 tablet by ity of tablet 00:00: 05:59 mouth at [place] 00 :00 bedtime Medical for 90 Branch days. pioglitazon 2021- No [id number] 30mg Take 1 Univers e 30 mg 8-16 11-15 tablet by ity of tablet 00:00: 05:59 mouth in [place] 00 :00 the Medical morning Branch for 90 days. rosuvastati No [id number] 5mg Take 1 Univers n 5 mg 8-16 11-15 tablet by ity of tablet 00:00: 05:59 mouth at [place] 00 :00 bedtime Medical for 90 Branch days. pioglitazon No [id number] 30mg Take 1 Univers e 30 mg 8-16 11-15 tablet by ity of tablet 00:00: 05:59 mouth in [place] 00 :00 the [facility] morning Branch for 90 days. sulfamethox 2021-2021- No [id number] 1{tbl} Take 1 Univers azole-trime 8-16 08-22 tablet by it y of thoprim 00:00: 04:59 mouth in [place] (BACTRIM 00 :00 the Medical ) 800-160 morning Branc h mg per and 1 tablet tablet in the evening. Do all this for 5 days. sulfamethox 2021-2021- No [id number] 1{tbl} Take 1 Univers azole-trime 8-16 08-22 tablet by it y of thoprim 00:00: 04:59 mouth in [place] (BACTRIM 00 :00 the Medical DS) 800-160 morning Branc h mg per and 1 tablet tablet in the evening. Do all this for 5 days. pioglitazon 2021-2021- No [id number] 30mg Take 2 Univers e 15 mg 8-16 08-16 tablets by ity o f tablet 00:00: 00:00 mouth in [place] 00 :00 the Medical morning Branch for 90 days. diphenhydrA Yes 25mg 25 mg, Univ ers MINE 8-15 Oral, PRN, ity of (BENADRYL) 23:58: 1 dose, [place] tablet 25 24 Starting Medica l mg on Sat Branch 01/15/22 at 1858, Until Discontinu ed, Routine, before MRI Sliding 0 Yes Subcutaneo Univ ers Scale 8-15 us, TID ity of Insulin - 22:00: MEALS+HS, [place] Lispro 00 First dose Medical (HumaLOG) + on Sat Branch Fsbg 01/15/22 at Testing 1700, Until Discontinu ed, Routine NaCl 0.9% 0 Yes 1000mL at 75 Unive rs (NS) IV 8-15 mL/hr, IV ity of infusion 20:00: Infusion, [place] 1,000 mL 00 CONTINUOUS Medic al , Starting Branch on Sat01/15/22 at 1500, Until Discontinu ed, Routine&lt ;br>To keep vein open.
labetaloL Yes 10mg 10 mg, Univer s (NORMODYNE) 8-15 Slow IV ity o f injection 19:50: Push, PRN, [place] 10 mg 52 Starting Medical on Sat Branch 01/15/22 at 1450, Until Discontinu ed, Routine, SBP > 220 or DBP > 110 iopamidol 0 202- No [id number] 100mL 100 mL, Univers (ISOVUE 01-15 08-15 Intravenou ity o f 370-500 mL) 18:30: 17:07 s, ONCE, 1 [place] injection 00 :00 dose, On Medica l 100 mL Sat Branch 01/15/22 at 1330, Routine NaCl 0.9% 0 Yes 5mL 5 mL, Slow Un meri (NS) 8-15 IV Push, ity of injection 5 16:38: PRN - SEE [place] mL 23 [facility] Medical NS, Branch Starting on Sat01/15/22 at 1138, Until Discontinu ed, 10 mL COVID-19 2021-0 2022- No .25mL 0.25 mL, Uni vers vaccine, Intramuscu i ty of A-PF 17:00: 19:17 lar, [place] (MODERNA, 00 :00 ONCE-PRIOR Medi corby EUA) (LOW TO Branch DOSE DISCHARGE, BOOSTER) 1 dose, 100 mcg/0.5 Starting mL on Sat injection 09/23/21 at 0.25 mL 1200, Until Discontinu ed, DAKOTAH, Give vaccine prior to discharge< br>Is this a third dose for an immunocomp romised patient? No
Mix and Match Vaccine? Booster sulfur 2021- No [id number] 5mL 5 mL, Unive rs hexafluorid 09-23 Intravenou i ty of e microsphr 16:00: 16:00 s, ONCE, 1 [place] (LUMASON) 00 :00 dose, On Medica l injection 5 Sat Branch mL 09/23/21 at 1100, Routine
membership solicitor approving Restricted medication : CORDELL FIELDS enoxaparin Yes 1mg/kg 80 mg Univ ers (LOVENOX) 09-23 (rounded ity of injection 01:00: from 75.8 [place] as 80 mg 00 mg = 1 Medical mg/kg Branch ?75.8 kg), Subcutaneo us, Q12H, First dose on Sat09/22/21 at 2000, Until Discontinu ed, Routine apixaban 5 Yes 1477 5mg Take 1 Unive rs mg tablet 4-23 tablet by ity o f 00:00: mouth 2 (two) Medical times Branch daily. Take 2 tabs (10mg) two times daily for 7 days followed by 1 tab (5mg) two times daily thereafter indefinite ly. Indication s: blood clots in deep veins and in blood vessel of the lung apixaban 5 Yes 1477 5mg Take 1 Unive rs mg tablet 4-23 tablet by ity o f 00:00: mouth 2 (two) Medical times Branch daily. Take 2 tabs (10mg) two times daily for 7 days followed by 1 tab (5mg) two times daily thereafter indefinite ly. Indication s: blood clots in deep veins and in blood vessel of the lung apixaban 5 Yes 1477 5mg Take 1 Unive rs [...] in blood vessel of the lung apixaban 2021-0 Yes 1477 5mg Take 1 [...] mouth 2 (two) Medical times Branch daily. Take 2 [...] in blood vessel of the lung apixaban 0 Yes 1477 5mg Take 1 Unive rs mg tablet 4-23 tablet by ity o f 00:00: mouth (two) Medical times Branch daily. Take 2 tabs (10mg) two times daily for 7 days followed by 1 tab (5mg) two times daily thereafter indefinite ly. Indication s: blood clots in deep veins and in blood vessel of the lung apixaban 0 Yes 1477 5mg Take 1 Unive [...] f 00:00: mouth 2 (two) Medical times Jet daily. Take 2 tabs (10mg) two times daily for 7 days followed by 1 tab (5mg) two times daily thereafter indefinite ly. Indication s: blood clots in deep veins and in blood vessel of the lung apixaban 5 2021-0 Yes 1477 5mg Take 1 Unive rs mg tablet 4-23 tablet by ity o f 00:00: mouth 2 (two) Medical times Jet daily. Take 2 tabs (10mg) two times daily for 7 days followed by 1 tab (5mg) two times daily thereafter indefinite ly. Indication s: blood clots in deep veins and in blood vessel of the lung rOPINIRole 0 Yes 2mg 2 mg, Univer s (REQUIP) 09-22 Oral, TID, ity o f tablet 2 mg 19:00: First dose [place] 00 on Sat Medical 09/22/21 at Branch 1400, Until Discontinu ed, Routine gabapentin 0 Yes 600mg 600 mg, Uni vers (NEURONTIN) 09-22 Oral, TID, it y of capsule 600 19:00: First dose [place] mg 00 on Sat Medical 09/22/21 at Branch 1400, Until Discontinu ed, Routine Sliding 2021-0 Yes Subcutaneo Univ ers Scale 09-22 us, TID ity of Insulin - 17:00: MEALS+HS, [place] Lispro 00 First dose Medical (HumaLOG) + on Sat Jet Fsbg 09/22/21 at Testing 1200, Until Discontinu ed, Routine lamoTRIgine 2021-0 Yes 200mg 200 mg, Un meri (LAMICTAL) 09-22 Oral, BID, ity of tablet 200 15:00: First dose [place] mg 00 on Sat Medical 09/22/21 at Branch 1000, Until Discontinu ed, Routine citalopram 2021-0 Yes 40mg 40 mg, Unive rs (CELEXA) 09-22 Oral, ity of tablet 40 15:00: DAILY, [place] mg 00 First dose Medical on Fri Branch 09/22/21 at 1000, Until Discontinu ed, Routine acetaminoph Yes 650mg 650 mg, Un meri en 09-22 Oral, ity of (TYLENOL) 14:24: Q6HPRN, [place] tablet 650 03 Starting Medic al mg on Fri Branch 09/22/21 at 0924, Until Discontinu ed, Routine, Pain (scale 1-3) glucagon Yes 1mg 1 mg, Univers (GLUCAGEN 09-22 Intramuscu ity of DIAGNOSTIC 14:22: lar, PRN, [place] KIT) 32 Starting Medical injection 1 on Fri Branch mg 09/22/21 at 0922, Until Discontinu [...] Sat09/22/21 at 0745, DAKOTAH iopamidol 2021- No [id number] 100mL 100 mL, Univers (ISOVUE 09-22 Intravenou ity o f 370-500 mL) 11:45: 10:42 s, ONCE, 1 [place] injection 00 :00 dose, On Medica l 100 mL Fri Branch 09/22/21 at 0645, Routine insulin Yes 18U QD Inject 18 Metho di [...] tablet 00 daily with l breakfast. rosuvastati 2022-0 Yes Q.[id number] Take by Methodi n calcium 3-15 [id number] mouth 3 s t (ROSUVASTAT 18:16: 3W (three) Hos preeti IN ORAL) 00 times a l week. Pt doesn't remember the dosage insulin 2021-0 Yes 18U QD Inject 18 Metho di GLARGINE 3-[address] (Basaglar 18:16: under the Hos preeti KwikPen 00 skin l U-100 nightly. Insulin) 100 unit/mL injection (pen) apixaban 2021-0 Yes 5mg Q.5D Take 5 mg Meth ebenezer (ELIQUIS) 5 3-[address] mg tablet 18:16: (two) Hospita 00 times a l day. ferrous 2021-0 Yes 325mg QD Take 325 Metho di sulfate 325 3-[address] (65 FE) MG 18:16: mouth Hospit a tablet 00 daily with l breakfast. rosuvastati 2021-0 Yes Q.[id number] Take by Methodi n calcium 3-15 [id number] mouth 3 s t (ROSUVASTAT 18:16: 3W (three) Hos preeit IN ORAL) 00 times a l week. Pt doesn't remember the dosage rOPINIRole 0 Yes 2mg Q.27034806 Take 2 mg Methodi (REQUIP) 1 3-14 [id number] mouth [address] MG tablet 19:14: 3D (three) Hospi ta 05 times a l day. gabapentin 2021-0 Yes 600mg Q.88126220 Take 600 Methodi (NEURONTIN) 3-14 [id number] mg by s t 300 mg 19:14: [...] 19:14: daily. Hospit a 05 l lamoTRIgine 2022-0 Yes 200mg Q.5D Take 200 M ethodi (LaMICtal) 3-[address] 200 MG 19:14: mouth 2 Hospita tablet 05 (two) l times a day. rOPINIRole 2022-0 Yes 2mg Q.[id number] Take 2 mg Methodi (REQUIP) 1 3-14 [id number] mouth [address] MG tablet 19:14: 3D (three) Hospi ta 05 times a l day. gabapentin 2022-0 Yes 600mg Q.96361377 Take 600 Methodi (NEURONTIN) 3-14 [id number] mg by s t 300 mg 19:14: 3D mouth 3 Hospita capsule 05 (three) l times a day. metFORMIN 2022-0 Yes 1000mg Q.5D Take 1,000 Methodi (GLUCOPHAGE [...] 19:14: daily. Hospit a 05 l lamoTRIgine 2-0 Yes 200mg Q.5D Take 200 M ethodi (LaMICtal) 3-[address] 200 MG 19:14: mouth 2 Hospita tablet 05 (two) l times a day. 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, 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, 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, kg, 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, Weight lamoTRIgine 2021-0 Yes See Memori a 200 mg oral 3-09 Instructio l tablet 18:22: ns, TAKE [place] 00 ONE (1) TABLET BY MOUTH TWICE DAILY, # 60 tab, 3 Refill(s), Pharmacy: [facility], 165.1, cm, 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, Height, 76.818, kg, 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, Weight lamoTRIgine 2021-0 Yes See Memori a 200 mg oral 3-09 Instructio l tablet 18:22: ns, TAKE [place] 00 ONE (1) TABLET BY MOUTH TWICE DAILY, # 60 tab, 3 Refill(s), Pharmacy: [facility], 165.1, cm, 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56, cm, 02/08/21 14:52:00 CDT, Height, 82.727, kg, 02/08/21 14:52:00 CDT, Weight lamotrigine 2020- Yes = 1 tab, Me moria 200 MG Oral 0-13 PO, BID, # l Tablet 22:55: 60 tab, 3 Guille n 00 Refill(s), Pharmacy: [facility], 162.56, cm, 02/08/21 14:52:00 CDT, Height, 82.727, kg, 02/08/21 14:52:00 CDT, Weight lamotrigine 2020-06 Yes = 1 tab, Me moria 200 MG Oral 0-13 PO, BID, # l Tablet 22:55: 60 tab, 3 Guille n 00 Refill(s), Pharmacy: [facility], 162.56, cm, 02/08/21 14:52:00 CDT, Height, 82.727, kg, 02/08/21 14:52:00 CDT, Weight lamotrigine 2020-06 Yes = 1 tab, Me [place]ia 200 MG Oral 0-13 PO, BID, # l Tablet 22:55: 60 tab, 3 Guille n 00 Refill(s), Pharmacy: [facility], 162.56, cm, 02/08/21 14:52:00 CDT, Height, 82.727, kg, 02/08/21 14:52:00 CDT, Weight lamotrigine 2020-06 Yes = 1 tab, Me [place]ia 200 MG Oral 0-13 PO, BID, # l Tablet 22:55: 60 tab, 3 Guille n 00 Refill(s), Pharmacy: [facility], 162.56, cm, 02/08/21 14:52:00 CDT, Height, 82.727, kg, 02/08/21 14:52:00 CDT, Weight apixaban 5 2020-0 Yes 5 mg, PO, Me moria MG Oral 9-08 Q12H, tab, l Tablet 20:15: 3 [place] [Eliquis] 00 Refill(s) Eliquis 5 1-0 Yes 5 mg, PO, Mem oria mg oral 9-08 Q12H, tab, l tablet 20:15: 3 [place] 00 Refill(s) apixaban 5 2020-0 Yes 5 mg, PO, Me moria MG Oral 9-08 Q12H, tab, l Tablet 20:15: 3 [place] [Eliquis] 00 Refill(s) Eliquis 5 1-0 Yes 5 mg, PO, Mem oria mg oral 9-08 Q12H, tab, l tablet 20:15: 3 [place] 00 Refill(s) apixaban 5 2020-0 Yes 5 mg, PO, Me moria MG Oral 02-08 Q12H, tab, l Tablet 20:15: 3 [place] [Eliquis] 00 Refill(s) Eliquis 5 2020-0 Yes 5 mg, PO, Mem oria mg oral 02-08 Q12H, tab, l tablet 20:15: 3 [place] 00 Refill(s) apixaban 5 2020-0 Yes 5 mg, PO, Me moria MG Oral 02-08 Q12H, tab, l Tablet 20:15: 3 [place] [Eliquis] 00 Refill(s) Eliquis 5 2020-0 Yes 5 mg, PO, Mem oria mg oral 02-08 Q12H, tab, l tablet 20:15: 3 [place] 00 Refill(s) apixaban 5 2020-0 Yes 5 mg, PO, Me moria MG Oral 02-08 Q12H, tab, l Tablet 20:15: 3 [place] [Eliquis] 00 Refill(s) Eliquis 5 2020-0 Yes 5 mg, PO, Mem oria mg oral 02-08 Q12H, tab, l tablet 20:15: 3 [place] 00 Refill(s) lactobacill Yes .5mg 0.5 mg, Uni vers us 8-24 Oral, BID, ity of acidophilus 13:00: First dose [place] tablet 0.5 00 on [facility] mg 01/24/21 at Branch 0800, Until Discontinu ed, Routine amoxicillin Yes 500mg 500 mg, Un meri -pot 01-24 Oral, TID, ity of clavulanate 13:00: First dose [place] 500 mg 00 on e Medical (AUGMENTIN 01/24/21 at [facility] 500) 0800, 500-125 mg Until tablet 500 Discontinu mg ed, DAKOTAH
Re ason for Anti-Infec tive: Empiric Therapy for Suspected Infection< br>Empiric Therapy Site: Urine
D uration of therapy: 7 days lactobacill 0 Yes .5mg 0.5 mg, Uni vers us 8-24 Oral, BID, ity of acidophilus 13:00: First dose [place] tablet 0.5 00 on Medical mg 01/24/21 at Branch 0800, Until Discontinu ed, Routine amoxicillin Yes 500mg 500 mg, Un meri -pot 8 Oral, TID, ity of clavulanate 13:00: First dose [place] 500 mg 00 on [facility] Medical (AUGMENTIN 01/24/21 at [facility] 500) 0800, 500-125 mg Until tablet 500 Discontinu mg ed, DAKOTAH
Re ason for Anti-Infec tive: Empiric Therapy for Suspected Infection< br>Empiric Therapy Site: Urine
D uration of therapy: 7 days lactobacill 2020- No [id number] .5mg Take 1 [facility] 01-24 tablet by ity of acidophilus 00:00: 04:59 mouth 2 [place] 00 :00 (two) Medical times Branch daily for 30 days. lactobacill 2020- No [id number] .5mg Take 1 [facility] 01-24 tablet by ity of acidophilus 00:00: 04:59 mouth 2 [place] 00 :00 (two) Medical times Branch daily for 30 days. lactobacill 2020- No [id number] .5mg Take 1 [facility] 01-24 tablet by ity of acidophilus 00:00: 04:59 mouth 2 [place] 00 :00 (two) Medical times Branch daily for 30 days. lactobacill 2020- No [id number] .5mg Take 1 [facility] us 01-24 tablet by ity of acidophilus 00:00: 04:59 mouth 2 [place] 00 :00 (two) Medical times Branch daily for 30 days. lactobacill 2020- No [id number] .5mg Take 1 Univers us 01-24 tablet by ity of acidophilus 00:00: 04:59 mouth 2 [place] 00 :00 (two) Medical times Branch daily for 30 days. lactobacill 2020- No [id number] .5mg Take 1 [facility] us 01-24 tablet by ity of acidophilus 00:00: 04:59 mouth 2 [place] 00 :00 (two) Medical times Branch daily for 30 days. amoxicillin 2020- No [id number] 500mg Take 1 Univers -pot 01-24- tablet by ity of clavulanate 00:00: 04:59 mouth 3 [place] 500 mg 00 :00 (three) Medical 500-125 mg times Branch tablet daily for 10 days. amoxicillin 2020- No [id number] 500mg Take 1 Univers -pot 01-24- tablet by ity of clavulanate 00:00: 04:59 mouth 3 [place] 500 mg 00 :00 (three) Medical 500-125 mg times Branch tablet daily for 10 days. amoxicillin 2020- No [id number] 500mg Take 1 [facility] -pot 01-24 tablet by ity of clavulanate 00:00: 04:59 mouth 3 [place] 500 mg 00 :00 (three) Medical 500-125 mg times Branch tablet daily for 10 days. amoxicillin 2020- No [id number] 500mg Take 1 [facility] -pot 01-24 tablet by ity of clavulanate 00:00: 04:59 mouth 3 [place] 500 mg 00 :00 (three) Medical 500-125 mg times Branch tablet daily for 10 days. Sliding Yes [facility] ers Scale 8- , TID ity of Insulin - 17:00: MEALS+HS, [place] Lispro 00 First dose Medical (HumaLOG) + on Sat Branch Fsbg 01/21/21 at Testing 1200, Until Discontinu ed, Routine Sliding Yes [facility] ers Scale 8- us, TID ity of Insulin - 17:00: MEALS+HS, [place] Lispro 00 First dose Medical (HumaLOG) + on Sat Branch Fsbg 01/21/21 at Testing 1200, Until Discontinu ed, Routine iopamidol 2020- No [id number] 100mL 100 mL, Univers (ISOVUE 01-21 Intravenou ity o f 370-500 mL) 16:45: 15:22 s, ONCE, 1 [place] injection 00 :00 dose, Sat Medic al 100 mL 01/21/21 at Branch 1145, Routine iopamidol 2020- No [id number] 100mL 100 mL, Univers (ISOVUE 01-21 Intravenou ity o f 370-500 mL) 16:45: 15:22 s, ONCE, 1 [place] injection 00 :00 dose, Sat Medic al 100 mL 01/21/21 at Branch 1145, Routine rOPINIRole 0 Yes 2mg 2 mg, Univer s (REQUIP) 01-21 Oral, TID, ity o f tablet 2 mg 15:30: First dose on [facility] 01/21/21 at Branch 1030, Until Discontinu ed, Routine rOPINIRole Yes 2mg 2 mg, Univer s (REQUIP) 01-21 Oral, TID, ity o f tablet 2 mg 15:30: First dose on [facility] 01/21/21 at Branch 1030, Until Discontinu ed, Routine citalopram Yes 40mg 40 mg, Unive rs (CELEXA) 01-21 Oral, ity of tablet 40 14:00: DAILY, [place] mg 00 First dose Medical on [facility] 01/21/21 at 0900, Until Discontinu ed, Routine citalopram Yes 40mg 40 mg, Unive rs (CELEXA) 01-21 Oral, ity of tablet 40 14:00: DAILY, [place] mg 00 First dose Medical on [facility] 01/21/21 at 0900, Until Discontinu ed, Routine piperacilli 2020- No 3.375g 3.375 g, Univers n-tazobacta 01-21 IV ity of m (ZOSYN) 14:00: 08:45 [place], [place] 3.375 g in 00 :15 Q6H ABX, Medic al NaCl 0.9% First dose Bran ch (NS) 100 mL on [facility] MINI-BAG 01/21/21 at 0900, Until Discontinu ed, Administer over 30 Minutes, 100 mL
Reas on for Anti-Infec tive: Empiric Therapy for Suspected Infection< br>Empiric Therapy Site: Urine
D uration of therapy: 7 days piperacilli 2020- No 3.375g 3.375 g, Univers n-tazobacta 8-21 08-24 IV ity of m (ZOSYN) 14:00: 08:45 [place], [place] 3.375 g in 00 :15 Q6H ABX, Medic al NaCl 0.9% First dose Bran ch (NS) 100 mL on [facility] MINI-BAG 01/21/21 at 0900, Until Discontinu ed, Administer over 30 Minutes, 100 mL
Reas on for Anti-Infec tive: Empiric Therapy for Suspected Infection< br>Empiric Therapy Site: Urine
D uration of therapy: 7 days lamoTRIgine 2021-0 Yes 200mg 200 mg, Un meri (LAMICTAL) 8- Oral, BID, ity of tablet 200 13:00: First dose [place] mg 00 on [facility] 01/21/21 at Branch 0800, Until Discontinu ed, Routine gabapentin 2021-0 Yes 600mg 600 mg, Uni vers (NEURONTIN) 8 Oral, TID, it y of capsule 600 13:00: First dose [place] mg 00 on [facility] 01/21/21 at Branch 0800, Until Discontinu ed, Routine apixaban 2021-0 Yes 1477 5mg 5 mg, Univers (ELIQUIS) 8 Oral, BID, ity of tablet 5 mg 13:00: First dose [place] 00 on [facility] 01/21/21 at Branch 0800, Until Discontinu ed, Routine lamoTRIgine 2021-0 Yes 200mg 200 mg, Un meri (LAMICTAL) 8 Oral, BID, ity of tablet 200 13:00: First dose [place] mg 00 on [facility] 01/21/21 at Branch 0800, Until Discontinu ed, Routine gabapentin 2021-0 Yes 600mg 600 mg, Uni vers (NEURONTIN) 8- Oral, TID, it y of capsule 600 13:00: First dose [place] mg 00 on [facility] 01/21/21 at Branch 0800, Until Discontinu ed, Routine apixaban 2021-0 Yes 1477 5mg 5 mg, Univers (ELIQUIS) 8-21 Oral, BID, ity of tablet 5 mg 13:00: First dose [place] 00 on [facility] 01/21/21 at Branch 0800, Until Discontinu [...] Routine meclizine 2021-0 Yes 25mg 25 mg, Univer s (TRAVEL-EAS 01-21 Oral, ity of E 12:23: TIDPRN, [place] (MECLIZINE) 00 Starting Medi [place] ) tablet 25 Sat Branch mg 01/21/21 at 0723, Until Discontinu ed, Routine, Dizziness meclizine 2021-0 Yes 25mg 25 mg, Univer s (TRAVEL-EAS 01-21 Oral, ity of E 12:23: TIDPRN, [place] (MECLIZINE) 00 Starting Medi [place] ) tablet 25 Sat Branch mg 01/21/21 at 0723, Until Discontinu ed, Routine, Dizziness ondansetron 2021-0 Yes 4mg 4 mg, Slow Univers (ZOFRAN 8-21 IV Push, ity of (PF)) 07:03: Q6HPRN, [place] injection 4 50 Starting Medi [place] mg Sat Branch 01/21/21 at 0203, Until Discontinu ed, Routine, Nausea and Vomiting (N/V) ondansetron 2021-0 Yes 4mg 4 mg, Slow Univers (ZOFRAN 8-21 IV Push, ity of (PF)) 07:03: Q6HPRN, [place] injection 4 50 Starting Medi [place] mg Sat Branch 01/21/21 at 0203, Until Discontinu ed, Routine, Nausea and Vomiting (N/V) acetaminoph 2021-0 Yes 650mg 650 mg, Un meri en 01-21 Oral, ity of (TYLENOL) 07:03: Q6HPRN, [place] tablet 650 31 Starting Medic al mg Sat Branch 01/21/21 at 0203, Until Discontinu ed, Routine, Pain (scale 1-3) acetaminoph 2021-0 Yes 650mg 650 mg, Un meri en 01-21 Oral, ity of (TYLENOL) 07:03: Q6HPRN, [place] tablet 650 31 Starting Medic al mg Sat Branch 01/21/21 at 0203, Until Discontinu ed, Routine, Pain (scale 1-3) NaCl 0.9% 2020- No 1000mL at 125 Uni vers (NS) IV 01-21 08-22 mL/hr, ity of infusion 03:45: 21:57 Intravenou [place] 1,000 mL 00 :15 s, Medical CONTINUOUS Branch , Starting 01/20/21 at 2245, Until 01/22/21 at 1657, Routine NaCl 0.9% 2020- No 1000mL at 125 Uni vers (NS) IV 01-21 mL/hr, ity of infusion 03:45: 21:57 Intravenou [place] 1,000 mL 00 :15 s, Medical CONTINUOUS Branch , Starting 01/20/21 at 2245, Until 01/22/21 at 1657, Routine cefTRIAXone 2020- No 1000mg 1,000 mg, Univers (ROCEPHIN) 01-21 IV ity of 1,000 mg in 03:45: 03:33 [place], [place] NaCl 0.9% 00 :00 ONCE, 1 Medical (NS) 50 mL dose, Sat Bran ch MINI-BAG 01/20/21 at 2245, Administer over 30 Minutes, 50 mL
R miguel angel for Anti-Infec tive: Documented Infection< br>Documen beth Infection Site: Urine
D uration of Therapy: Other (see Comments) cefTRIAXone 2020- No 1000mg 1,000 mg, Univers (ROCEPHIN) 01-21 IV ity of 1,000 mg in 03:45: 03:33 [place], [place] NaCl 0.9% 00 :00 ONCE, 1 Medical (NS) 50 mL dose, Sat Bran ch MINI-BAG 01/20/21 at 2245, Administer over 30 Minutes, 50 mL
R miguel angel for Anti-Infec tive: Documented Infection< br>Documen beth Infection Site: Urine
D uration of Therapy: Other (see Comments) iopamidol 2020- No [id number] 100mL 100 mL, Univers (ISOVUE 01-21- Intravenou ity o f 370-500 mL) 01:45: 00:40 s, ONCE, 1 [place] injection 00 :00 dose, Fri Medic al 100 mL 01/20/21 at Branch 2044, Routine iopamidol 2020- No [id number] 100mL 100 mL, Univers (ISOVUE 01-21 Intravenou ity o f 370-500 mL) 01:45: 00:40 s, ONCE, 1 [place] injection 00 :00 dose, Fri Medic al 100 mL 01/20/21 at Branch 2044, Routine NaCl 0.9% 2020- No 500mL at 999 Univ ers (NS) bolus 01-21 08-21 mL/hr, 500 it y of infusion 01:09: 01:31 mL, IV [place] 500 mL 00 :00 Infusion, Medical ONCE, 1 Branch dose, Sat01/20/21 at 2014, STAT NaCl 0.9% 2020- No 500mL at 999 Univ ers (NS) bolus 01-21-21 mL/hr, 500 it y of infusion 01:09: 01:31 mL, IV [place] 500 mL 00 :00 Infusion, Medical ONCE, 1 Branch dose, Sat01/20/21 at 2014, STAT clopidogrel Yes 0 Memori a 75 mg oral 7-08 Refill(s) l tablet 15:02: [place] 00 Metformin Yes TAKE ONE Juan srikanth hydrochlori 7-08 (1) TABLET l de 1000 MG 15:02: BY MOUTH Her velásquez Oral Tablet 00 TWICE DAILY citalopram Yes 40 mg = 1 Me moria 40 mg oral 7-08 tab, PO, l tablet 15:02: Daily, # [place] 00 30 tab, 0 Refill(s) metFORMIN Yes TAKE ONE Juan srikanth 1000 mg 7-08 (1) TABLET l oral tablet 15:02: BY MOUTH He rmann 00 TWICE DAILY clopidogrel Yes 0 Memori a 75 mg oral 7-08 Refill(s) l tablet 15:02: [place] 00 Metformin Yes TAKE ONE Ujan srikanth hydrochlori 7-08 (1) TABLET l de 1000 MG 15:02: BY MOUTH Her velásquez Oral Tablet 00 TWICE DAILY citalopram Yes 40 mg = 1 Me moria 40 mg oral 7-08 tab, PO, l tablet 15:02: Daily, # [place] 00 30 tab, 0 Refill(s) metFORMIN Yes TAKE ONE Juan srikanth 1000 mg 7-08 (1) TABLET l oral tablet 15:02: BY MOUTH [place] r[place] 00 TWICE DAILY clopidogrel Yes 0 Memori a 75 mg oral 7-08 Refill(s) l tablet 15:02: [place] Metformin Yes TAKE ONE Juan srikanth hydrochlori 7-08 (1) TABLET l de 1000 MG 15:02: BY MOUTH Her velásquez Oral Tablet 00 TWICE DAILY citalopram Yes 40 mg = 1 Me moria 40 mg oral 7-08 tab, PO, l tablet 15:02: Daily, # [place] 00 30 tab, 0 Refill(s) metFORMIN Yes TAKE ONE Juan srikanth 1000 mg 7-08 (1) TABLET l oral tablet 15:02: BY MOUTH [place] r[place] 00 TWICE DAILY clopidogrel Yes 0 Memori a 75 mg oral 7-08 Refill(s) l tablet 15:02: [place] Metformin Yes TAKE ONE Jaun srikanth hydrochlori 7-08 (1) TABLET l de 1000 MG 15:02: BY MOUTH Her velásquez Oral Tablet 00 TWICE DAILY citalopram Yes 40 mg = 1 Me moria 40 mg oral 7-08 tab, PO, l tablet 15:02: Daily, # [place] 00 30 tab, 0 Refill(s) metFORMIN Yes [...] tab, PO, l tablet 15:02: Daily, # [place] 00 30 tab, 0 Refill(s) metFORMIN Yes TAKE ONE Juan srikanth 1000 mg 7-08 (1) TABLET l oral tablet 15:02: BY MOUTH He r[place] 00 TWICE DAILY clopidogrel Yes 0 Memori a 75 mg oral 7-08 Refill(s) l tablet 15:02: [place] 00 citalopram Yes 40 mg = 1 Me moria 40 mg oral 7-08 tab, PO, l tablet 15:02: Daily, # [place] 00 30 tab, 0 Refill(s) Metformin Yes TAKE ONE Juan srikanth hydrochlori 7-08 (1) TABLET l de 1000 MG 15:02: BY MOUTH Her velásquez Oral Tablet 00 TWICE DAILY clopidogrel Yes 0 Memori a 75 mg oral 7-08 Refill(s) l tablet 15:02: [place] 00 citalopram Yes 40 mg = 1 Me moria 40 mg oral 7-08 tab, PO, l tablet 15:02: Daily, # [place] 00 30 tab, 0 Refill(s) Metformin Yes TAKE ONE Juan srikanth hydrochlori 7-08 (1) TABLET l de 1000 MG 15:02: BY MOUTH Her velásquez Oral Tablet 00 TWICE DAILY gabapentin Yes = 2 cap, Mem oria 300 mg oral 7-08 PO, TID, # l capsule 14:57: 540 [place] unknown unit, 2 Refill(s), Pharmacy: [facility], 162.56, cm, 12/08/20 9:45:00 CDT, Height, 80.909, kg, 12/08/20 9:45:00 CDT, Weight rOPINIRole Yes = 1 tab, Mem oria 2 mg oral 7-08 PO, TID, # l tablet 14:57: 270 tab, 2 Dianne nn 00 Refill(s), Pharmacy: [facility], 162.56, cm, 12/08/20 9:45:00 CDT, Height, 80.909, kg, 12/08/20 9:45:00 CDT, Weight gabapentin Yes = 2 cap, Mem oria 300 mg oral 7-08 PO, TID, # l capsule 14:57: 540 [place] unknown unit, 2 Refill(s), Pharmacy: [facility] 527, 162.56, cm, 12/08/20 9:45:00 CDT, Height, 80.909, kg, 12/08/20 9:45:00 CDT, Weight rOPINIRole 2021-0 Yes = 1 tab, Mem oria 2 mg oral 7-08 PO, TID, # l tablet 14:57: 270 tab, 2 Dianne nn 00 Refill(s), Pharmacy: [facility] 527, 162.56, cm, 12/08/20 9:45:00 CDT, Height, 80.909, kg, 12/08/20 9:45:00 CDT, Weight gabapentin 2021-0 Yes = 2 cap, Mem oria 300 mg oral 7-08 PO, TID, # l capsule 14:57: 540 [place] 00 unknown unit, 2 Refill(s), Pharmacy: [facility] 527, 162.56, cm, 12/08/20 9:45:00 CDT, Height, 80.909, kg, 12/08/20 9:45:00 CDT, Weight rOPINIRole 202-0 Yes = 1 tab, Mem oria 2 mg oral 7-08 PO, TID, # l tablet 14:57: 270 tab, 2 Dianne nn 00 Refill(s), Pharmacy: [facility] 527, 162.56, cm, 12/08/20 9:45:00 CDT, Height, 80.909, kg, 12/08/20 9:45:00 CDT, Weight gabapentin 2021-0 Yes = 2 cap, Mem oria 300 mg oral 7-08 PO, TID, # l capsule 14:57: 540 [place] 00 unknown unit, 2 Refill(s), Pharmacy: [facility] 527, 162.56, cm, 12/08/20 9:45:00 CDT, Height, 80.909, kg, 12/08/20 9:45:00 CDT, Weight rOPINIRole 2021-0 Yes = 1 tab, Mem oria 2 mg oral 7-08 PO, TID, # l tablet 14:57: 270 tab, 2 Dianne nn 00 Refill(s), Pharmacy: [facility] 527, 162.56, cm, 12/08/20 9:45:00 CDT, Height, 80.909, kg, 12/08/20 9:45:00 CDT, Weight gabapentin 2020-0 Yes = 2 cap, Mem oria 300 mg oral 7-08 PO, TID, # l capsule 14:57: 540 [place] 00 unknown unit, 2 Refill(s), Pharmacy: [facility] 527, 162.56, cm, 12/08/20 9:45:00 CDT, Height, 80.909, kg, 12/08/20 9:45:00 CDT, Weight rOPINIRole 2020-0 Yes = 1 tab, Mem oria 2 mg oral 7-08 PO, TID, # l tablet 14:57: 270 tab, 2 Dianne nn 00 Refill(s), Pharmacy: [facility] 527, 162.56, cm, 12/08/20 9:45:00 [...] oral tablet 14:51: [place] n 00 rOPINIRole 2020-0 Yes = 1 tab, Mem oria 2 mg oral 1-12 PO, TID, # l tablet 20:12: 270 ea, 1 [place] n 00 Refill(s), Pharmacy: [facility] 527, 167.64, cm, 04/02/19 10:11:00 CDT, Height, 84.091, kg, 04/02/19 10:11:00 CDT, Weight gabapentin 2021-0 Yes = 2 cap, Mem oria 300 MG Oral 1-12 PO, TID, # l Capsule 20:12: 540 cap, 1 Herm benedicto 00 Refill(s), Pharmacy: [facility] 527, 167.64, cm, 04/02/19 10:11:00 CDT, Height, 84.091, kg, 04/02/19 10:11:00 CDT, Weight rOPINIRole 202-0 Yes = 1 tab, Mem oria 2 mg oral 1-12 PO, TID, # l tablet 20:12: 270 ea, 1 [place] 00 Refill(s), Pharmacy: [facility] 527, 167.64, cm, 04/02/19 10:11:00 CDT, Height, 84.091, kg, 04/02/19 10:11:00 CDT, Weight gabapentin 202-0 Yes = 2 cap, Mem oria 300 MG Oral 1-12 PO, TID, # l Capsule 20:12: 540 cap, 1 Herm benedicto 00 Refill(s), Pharmacy: [facility] 527, 167.64, cm, 04/02/19 10:11:00 CDT, Height, 84.091, kg, 04/02/19 10:11:00 CDT, Weight rOPINIRole 2021-0 Yes = 1 tab, Mem oria 2 mg oral 1-12 PO, TID, # l tablet 20:12: 270 ea, 1 [place] 00 Refill(s), Pharmacy: [facility] 527, 167.64, cm, 04/02/19 10:11:00 CDT, Height, 84.091, kg, 04/02/19 10:11:00 CDT, Weight gabapentin 2021-0 Yes = 2 cap, Mem oria 300 MG Oral 1-12 PO, TID, # l Capsule 20:12: 540 cap, 1 Herm benedicto 00 Refill(s), Pharmacy: [facility] 527, 167.64, cm, 04/02/19 10:11:00 CDT, Height, 84.091, kg, 04/02/19 10:11:00 CDT, Weight rOPINIRole 202-0 Yes = 1 tab, Mem oria 2 mg oral 1-12 PO, TID, # l tablet 20:12: 270 ea, 1 [place] 00 Refill(s), Pharmacy: [facility] 527, 167.64, cm, 04/02/19 10:11:00 CDT, Height, 84.091, kg, 04/02/19 10:11:00 CDT, Weight gabapentin 202-0 Yes = 2 cap, Mem oria 300 MG Oral 1-12 PO, TID, # l Capsule 20:12: 540 cap, 1 Herm benedicto 00 Refill(s), Pharmacy: [facility] 527, 167.64, cm, 04/02/19 10:11:00 CDT, Height, 84.091, kg, 04/02/19 10:11:00 CDT, Weight rOPINIRole 2020-0 Yes = 1 tab, Mem oria 2 mg oral 1-12 PO, TID, # l tablet 20:12: 270 ea, 1 [place] 00 Refill(s), Pharmacy: [facility] 527, 167.64, cm, 04/02/19 10:11:00 CDT, Height, 84.091, kg, 04/02/19 10:11:00 CDT, Weight gabapentin 2021-0 Yes = 2 cap, Mem oria 300 MG Oral 1-12 PO, TID, # l Capsule 20:12: 540 cap, 1 Herm benedicto 00 Refill(s), Pharmacy: [facility] 527, 167.64, cm, 04/02/19 10:11:00 CDT, Height, 84.091, kg, 04/02/19 10:11:00 CDT, Weight rOPINIRole 202-0 Yes = 1 tab, Mem oria 2 mg oral 1-12 PO, TID, # l tablet 20:12: 270 ea, 1 [place] n 00 Refill(s), Pharmacy: [facility] 527, 167.64, cm, 04/02/19 10:11:00 CDT, Height, 84.091, kg, 04/02/19 10:11:00 CDT, Weight gabapentin 2020-0 Yes = 2 cap, Mem oria 300 MG Oral 1-12 PO, TID, # l Capsule 20:12: 540 cap, 1 Herm benedicto 00 Refill(s), Pharmacy: [facility] 527, 167.64, cm, 04/02/19 10:11:00 CDT, Height, 84.091, kg, 04/02/19 10:11:00 CDT, Weight rOPINIRole 2020-0 Yes = 1 tab, Mem oria 2 mg oral 1-12 PO, TID, # l tablet 20:12: 270 ea, 1 [place] n 00 Refill(s), Pharmacy: [facility] 527, 167.64, cm, 04/02/19 10:11:00 CDT, Height, 84.091, kg, 04/02/19 10:11:00 CDT, Weight gabapentin 2020-0 Yes = 2 cap, Mem oria 300 MG Oral 1-12 PO, TID, # l Capsule 20:12: 540 cap, 1 Herm benedicto 00 Refill(s), Pharmacy: [facility] 527, 167.64, cm, 04/02/19 10:11:00 CDT, Height, 84.091, kg, 04/02/19 10:11:00 CDT, Weight mupirocin 2 2020-0 Yes [id number] Apply to Univers % ointment 4-19 area(s) 3 ity of 00:00: (three) [place] 00 times Medical daily. Branch mupirocin 2 2020-0 Yes [id number] Apply to Univers % ointment 4-19 area(s) 3 ity of 00:00: (three) [place] 00 times Medical daily. Branch mupirocin 2 2020-0 Yes [id number] Apply to Univers % ointment 4-19 area(s) 3 ity of 00:00: (three) [place] 00 times Medical daily. Branch mupirocin 2 2020-0 Yes [id number] Apply to Univers % ointment 4-19 area(s) 3 ity of 00:00: (three) [place] 00 times Medical daily. Branch mupirocin 2 2020-0 Yes [id number] Apply to Univers % ointment - [id number] area(s) 3 it y of 00:00: (three) [place] 00 times Medical daily. Branch mupirocin 2 2019-2020- No [id number] Apply to Univers % ointment 4- [id number] area(s) 3 i ty of 00:00: 00:00 (three) [place] 00 :00 times Medical daily. Branch mupirocin 2 2020- No [id number] Apply to Univers % ointment 4- [id number] area(s) 3 i ty of 00:00: 00:00 (three) [place] 00 :00 times Medical daily. Branch cephALEXin 2019-0 2020- No [id number] 500mg Take 1 Univers 500 mg 09-19-27 capsule by ity of capsule 00:00: 04:59 mouth 4 [place] 00 :00 (four) Medical times Branch daily for 7 days. diphenhydrA 2020-0 Yes [id number] 25mg Take 1 Univers MINE 4-17 capsule by ity of (BENADRYL) 00:00: mouth [place] 25 mg 00 every 6 Medical capsule (six) Branch hours as needed for Allergies. doxycycline 2020-0 Yes [id number] 100mg Take 1 Univers hyclate 100 4-17 tablet by ity of mg tablet 00:00: mouth 2 [place] 00 (two) Medical times Branch daily. triamcinolo 2020-0 Yes [id number] Apply to Univers ne 4-17 area(s) 2 ity of acetonide 00:00: (two) [place] 0.1 % cream 00 times Medical daily. Branch Apply 1-2g BID to affected area. diphenhydrA 2020-0 Yes [id number] 25mg Take 1 Univers MINE 4-17 capsule by ity of (BENADRYL) 00:00: mouth [place] 25 mg 00 every 6 Medical capsule (six) Branch hours as needed for Allergies. doxycycline 2020-0 Yes [id number] 100mg Take 1 Univers hyclate 100 4-17 tablet by ity of mg tablet 00:00: mouth 2 [place] 00 (two) Medical times Branch daily. triamcinolo 2020-0 Yes [id number] Apply to Univers ne 4-17 area(s) 2 ity of acetonide 00:00: (two) [place] 0.1 % cream 00 times Medical daily. Branch Apply 1-2g BID to affected area. diphenhydrA 2020-0 Yes [id number] 25mg Take 1 Univers MINE 4-17 capsule by ity of (BENADRYL) 00:00: mouth [place] 25 mg 00 every 6 Medical capsule (six) Branch hours as needed for Allergies. doxycycline 2020-0 Yes [id number] 100mg Take 1 Univers hyclate 100 4-17 tablet by ity of mg tablet 00:00: mouth 2 [place] 00 (two) Medical times Branch daily. triamcinolo 2020-0 Yes [id number] Apply to Univers ne 4-17 area(s) 2 ity of acetonide 00:00: (two) [place] 0.1 % cream 00 times Medical daily. Branch Apply 1-2g BID to affected area. diphenhydrA 2020-0 Yes [id number] 25mg Take 1 Univers MINE 4-17 capsule by ity of (BENADRYL) 00:00: mouth [place] 25 mg 00 every 6 Medical capsule (six) Branch hours as needed for Allergies. doxycycline 2020-0 Yes [id number] 100mg Take 1 Univers hyclate 100 4-17 tablet by ity of mg tablet 00:00: mouth 2 [place] 00 (two) Medical times Branch daily. triamcinolo 2020-0 Yes [id number] Apply to Univers ne 4-17 area(s) 2 ity of acetonide 00:00: (two) [place] 0.1 % cream 00 times Medical daily. Branch Apply 1-2g BID to affected area. diphenhydrA 2020-0 Yes [id number] 25mg Take 1 Univers MINE 4-17 capsule by ity of (BENADRYL) 00:00: mouth [place] 25 mg 00 every 6 Medical capsule (six) Branch hours as needed for Allergies. doxycycline 2020-0 Yes [id number] 100mg Take 1 Univers hyclate 100 4-17 tablet by ity of mg tablet 00:00: mouth 2 [place] 00 (two) Medical times Branch daily. triamcinolo 2020-0 Yes [id number] Apply to Univers ne 4-17 area(s) 2 ity of acetonide 00:00: (two) [place] 0.1 % cream 00 times Medical daily. Branch Apply 1-2g BID to affected area. diphenhydrA 2020-0 2020- No [id number] 25mg Take 1 Univers MINE 4-17 08-21 capsule by ity of (BENADRYL) 00:00: 00:00 mouth [place] 25 mg 00 :00 every 6 Medical capsule (six) Branch hours as needed for Allergies. doxycycline 2019-2020- No [id number] 100mg Take 1 Univers hyclate 100 09-17-21 tablet by it y of mg tablet 00:00: 00:00 mouth 2 [place] 00 :00 (two) Medical times Branch daily. triamcinolo 2019-2020- No [id number] Apply to [facility] 09-17 area(s) 2 ity of acetonide 00:00: 00:00 (two) [place] 0.1 % cream 00 :00 times Medical daily. Branch Apply 1-2g BID to affected area. diphenhydrA 2019-2020- No [id number] 25mg Take 1 [facility] 09-17 capsule by ity of (BENADRYL) 00:00: 00:00 mouth [place] 25 mg 00 :00 every 6 Medical capsule (six) Branch hours as needed for Allergies. doxycycline 2020- No [id number] 100mg Take 1 Univers hyclate 100 09-17- tablet by it y of mg tablet 00:00: 00:00 mouth 2 [place] 00 :00 (two) Medical times Branch daily. triamcinolo 2020- No [id number] Apply to [facility] 09-17 area(s) 2 ity of acetonide 00:00: 00:00 (two) [place] 0.1 % cream 00 :00 times Medical daily. Branch Apply 1-2g BID to affected area. lamotrigine 2020-0 Yes = 1 tab, Me [...] 00:00: mouth (two) Medical times Branch daily. Indication s: Blood Clots in Deep Veins and in Blood Vessel of the Lung apixaban 2018-06 Yes [id number] 5mg Take 1 Unive rs mg tablet 1-24 tablet by ity o f 00:00: mouth (two) Medical times Branch daily. Indication s: [...] 00:00: mouth (two) Medical times Branch daily. Indication s: Blood Clots in Deep Veins and in Blood Vessel of the Lung apixaban 2018-06 Yes 1477 5mg Take 1 Unive rs mg tablet 1-24 tablet by ity o f 00:00: mouth (two) Medical times Branch daily. Indication s: [...] in Blood Vessel of the Lung apixaban 2018-06- No 1477 5mg Take 1 Univ ers mg tablet 06-26 tablet by ity of 00:00: 00:00 mouth [...] 54 Refill(s), Pharmacy: [facility] lamotrigine 2019 Yes = 1 tab, Me moria 200 [...] cap, 2 Herm benedicto 50 Refill(s), Pharmacy: [facility] gabapentin 2018-06 Yes = 2 [...] ia 0-31 BID, 0 l 15:12: Refill(s) Eliquis 2018-06 Yes 5 mg, PO, Memor ia 0-31 BID, 0 l 15:12: Refill(s) Eliquis 2018-06 Yes 5 mg, PO, Memor ia 0-31 BID, 0 l 15:12: Refill(s) Eliquis 2018-06 Yes 5 mg, PO, Memor ia 0-31 BID, 0 l 15:12: Refill(s) Eliquis 2018-06 Yes 5 mg, PO, Memor ia 0-31 BID, 0 l 15:12: Refill(s) Eliquis 2018-06 Yes 5 mg, PO, Memor ia 0-31 BID, 0 l 15:12: Refill(s) Eliquis 2018-06 Yes 5 mg, PO, Memor ia 0-31 BID, 0 l 15:12: Refill(s) sitagliptan 2019- No 1{tbl} Take 1 U nivers -metformin 02-15 tablet by chloe anderson (JOYCE) 14:37: 00:00 mouth 2 [place] 50-500 mg 26 :00 (two) Medical per tablet times Branch daily with meals. clopidogrel 2018- 2019- No 75mg Take 75 mg Univers (PLAVIX) 75 02-15 by mouth ity of mg tablet 14:37: 00:00 daily. [place] 26 :00 [facility] Branch glipiZIDE 2019-0 Yes 5mg 5 mg, Univers (GLUCOTROL) 02-15 Oral, ity of tablet 5 mg 14:00: DAILY, [place] [facility] 02/15/19 at 0900, Until Discontinu ed, Routine clopidogrel 2019- Yes 75mg 75 mg, Univ ers (PLAVIX) 02-15 Oral, ity of tablet 75 14:00: DAILY, [place] mg First dose Medical on [facility] 02/15/19 at 0900, Until Discontinu ed, Routine citalopram 0 Yes 40mg 40 mg, Unive rs (CELEXA) 02-15 Oral, ity of tablet 40 14:00: DAILY, [place] mg First dose Medical on [facility] 02/15/19 at 0900, Until Discontinu ed, Routine Nitrofurant 2018-0 Yes 100mg 100 mg, Un meri oin&Nit. 02-15 Oral, BID, ity o f Macrocryst 13:00: First dose [place] (MACROBID) 00 on [facility] 100 mg 02/15/19 at Branch capsule 100 0800, mg Until Discontinu ed, Routine
Reason for Anti-Infec tive: Empiric Therapy for Suspected Infection< br>Empiric Therapy Site: Urine<br&g t;Duration of therapy: 7 days lamoTRIgine 2018-0 Yes 200mg 200 mg, Un meri (LAMICTAL) 15 Oral, BID, ity of tablet 200 13:00: First dose [place] mg 00 on [facility] 02/15/19 at Branch 0800, Until Discontinu ed, Routine gabapentin 2018-0 Yes 300mg 300 mg, Uni vers (NEURONTIN) 15 Oral, TID, it y of capsule 300 13:00: First dose [place] mg 00 on [facility] 02/15/19 at Branch 0800, Until Discontinu ed, Routine apixaban 2018-0 Yes 10mg 10 mg, Univers (ELIQUIS) 15 Oral, BID, ity of tablet 10 13:00: First dose [place] mg 00 on [facility] 02/15/19 at [facility] 0800, Until Discontinu ed, Routine Sliding Yes Subcutaneo Univ ers Scale -15 us, AC+HS, ity of Insulin-Reg 12:30: First dose [place] ular + Fsbg 00 on [facility] 02/15/19 at [facility] 0730, Until Discontinu ed, Routine dextrose 2018- Yes 250mL 250 mL, IV Un meri 10% (D10W) 02-15 Infusion, ity of bolus 05:13: PRN - SEE [place] infusion 08 INSTRUCTIO Medic al 250 mL NS, For [facility] blood glucose < 60, Starting [facility] 02/15/19 at 0013
De xtrose 10% 250 [...] [place] KIT) 55 Starting Medical injection 1 [facility] [employer] mg 02/15/19 at 0012, Until Discontinu ed, DAKOTAH, Blood Glucose < or = 70 mg/dL and patient is unable to swallow or has mental changes. traMADol 0 2019- No 50mg 50 mg, Univer s (ULTRAM) 02-15 Oral, ity of tablet 50 05:11: 05:10 Q8HPRN, [place] :02 [facility] 02/15/19 at 0011, Until 02/17/19 at 0010, Routine, Pain (scale 4-6) acetaminoph 2018-0 Yes 650mg 650 mg, Un meri en 02-15 Oral, ity of (TYLENOL) 05:10: Q6HPRN, [place] tablet 650 35 Starting Medic [facility] 02/15/19 at 0010, Until Discontinu ed, Routine, Pain (scale 1-3) enoxaparin 2019- No 1mg/kg 83.9 mg (1 Univers (LOVENOX) 02-15-15 mg/kg ity of injection 04:30: 03:40 ?83.9 kg), [place] 83.9 mg 00 :00 Subcutaneo Medica l us, ONCE, Branch 1 dose, 02/14/19 at 2330, DAKOTAH iohexol 2019- No 120mL 120 mL, Unive rs (OMNIPAQUE 02-15 Intravenou it y of 350 02:45: 02:24 s, ONCE, 1 [place] BULK-100 00 :00 dose, Sat Medica l mL) 02/14/19 at Jet injection 2145, 120 mL Routine traMADol 2018- No 50mg 50 mg, Univer s (ULTRAM) 02-15 Oral, ONCE ity of tablet 50 02:30: 01:19 NOW, 1 [place] mg 00 :00 dose, Sat Medical 02/14/19 at Branch 2130, Routine ipratropium 2018- No 3mL 3 mL, Univ ers -albuterol 02-15 Inhalation it y of (DUONEB) 02:00: 01:11 , ONCE [place] 0.5 mg-3 00 :00 NOW, 1 Medical mg(2.5 mg dose, Sat Branc h base)/3 mL 02/14/19 at nebulizer 2100, solution 3 Routine mL NaCl 0.9% 2019- No 500mL at 999 Univ ers (NS) bolus 02-15 mL/hr, 500 it y of infusion 01:00: 02:45 mL, IV [place] 500 mL 00 :00 Infusion, Medical ONCE, 1 Branch dose, 02/14/19 at 2000, STAT citalopram Yes [id number] 40mg Take 1 [facility] 40 mg 9-15 tablet by ity of tablet 00:00: mouth [place] 00 daily. [facility] Branch citalopram Yes [id number] 40mg Take 1 [facility] 40 mg 9-15 tablet by ity of tablet 00:00: mouth [place] 00 daily. [facility] Branch citalopram Yes [id number] 40mg Take 1 [facility] 40 mg 9-15 tablet by ity of tablet 00:00: mouth [place] 00 daily. Medical Branch citalopram Yes [id number] 40mg Take 1 [facility] 40 mg 9-15 tablet by ity of tablet 00:00: mouth [place] 00 daily. Medical Branch citalopram Yes [id number] 40mg Take 1 [facility] 40 mg 9-15 tablet by ity of tablet 00:00: mouth [place] 00 daily. Medical Branch citalopram Yes [id number] 40mg Take 1 [facility] 40 mg 9-15 tablet by ity of tablet 00:00: mouth [place] 00 daily. Medical Branch citalopram Yes [id number] 40mg Take 1 [facility] 40 mg 9-15 tablet by ity of tablet 00:00: mouth [place] 00 daily. Medical Branch glipiZIDE Yes [id number] 10mg Take 1 U nivers 10 mg 9-15 tablet by ity of tablet 00:00: mouth 2 00 (two) Medical times Branch daily before breakfast and dinner. citalopram Yes [id number] 40mg Take 1 [facility] 40 mg 9-15 tablet by ity of tablet 00:00: mouth [place] 00 daily. Medical Branch glipiZIDE Yes [id number] 10mg Take 1 U nivers 10 mg 9-15 tablet by ity of tablet 00:00: mouth 2 [place] 00 (two) Medical times Branch daily before breakfast and dinner. citalopram Yes [id number] 40mg Take 1 [facility] 40 mg 9-15 tablet by ity of tablet 00:00: mouth [place] 00 daily. Medical Branch Nitrofurant 0 Yes [id number] 100mg Take 1 [facility] oin&Nit. 9-15 capsule by ity o f Macrocryst 00:00: mouth [place] 100 mg 00 (two) Medical capsule times Branch daily. glipiZIDE Yes [id number] 10mg Take 1 U nivers 10 mg 9-15 tablet by ity of tablet 00:00: mouth 2 [place] 00 (two) Medical times Branch daily before breakfast and dinner. citalopram Yes [id number] 40mg Take 1 [facility] 40 mg 9-15 tablet by ity of tablet 00:00: mouth [place] 00 daily. Medical Branch Nitrofurant 2018- Yes [id number] 100mg Take 1 [facility] oin&Nit. 9-15 capsule by ity o f Macrocryst 00:00: mouth [place] 100 mg 00 (two) Medical capsule times Branch daily. glipiZIDE Yes [id number] 10mg Take 1 U nivers 10 mg 9-15 tablet by ity of tablet 00:00: mouth 2 00 (two) Medical times Branch daily before breakfast and dinner. citalopram Yes [id number] 40mg Take 1 [facility] 40 mg 9-15 tablet by ity of tablet 00:00: mouth [place] 00 daily. Medical Branch glipiZIDE Yes [id number] 10mg Take 1 U nivers 10 mg 9-15 tablet by ity of tablet 00:00: mouth 2 (two) Medical times Branch daily before breakfast and dinner. citalopram Yes [id number] 40mg Take 1 [facility] 40 mg 9-15 tablet by ity of tablet 00:00: mouth 00 daily. Medical Branch glipiZIDE Yes [id number] 10mg Take 1 U nivers 10 mg 9-15 tablet by ity of tablet 00:00: mouth (two) Medical times Branch daily before breakfast and dinner. citalopram Yes [id number] 40mg Take 1 [facility] 40 mg 9-15 tablet by ity of tablet 00:00: mouth [place] 00 daily. Medical Branch glipiZIDE Yes [id number] 10mg Take 1 U nivers 10 mg 9-15 tablet by ity of tablet 00:00: mouth 2 00 (two) Medical times Branch daily before breakfast and dinner. citalopram Yes [id number] 40mg Take 1 [facility] 40 mg 9-15 tablet by ity of tablet 00:00: mouth [place] 00 daily. Medical Branch glipiZIDE Yes [id number] 10mg Take 1 U nivers 10 mg 9-15 tablet by ity of tablet 00:00: mouth 2 00 (two) Medical times Branch daily before breakfast and dinner. citalopram Yes [id number] 40mg Take 1 [facility] 40 mg 9-15 tablet by ity of tablet 00:00: mouth [place] 00 daily. Medical Branch glipiZIDE 0 Yes [id number] 10mg Take 1 U nivers 10 mg 9-15 tablet by ity of tablet 00:00: mouth (two) Medical times Branch daily before breakfast and dinner. citalopram 0 Yes [id number] 40mg Take 1 [facility] 40 mg 9-15 tablet by ity of tablet 00:00: mouth 00 daily. Medical Branch glipiZIDE Yes [id number] 10mg Take 1 U nivers 10 mg 9-15 tablet by ity of tablet 00:00: mouth (two) Medical times Branch daily before breakfast and dinner. citalopram Yes [id number] 40mg Take 1 [facility] 40 mg 9-15 tablet by ity of tablet 00:00: mouth 00 daily. Medical Branch glipiZIDE Yes [id number] 10mg Take 1 U nivers 10 mg 9-15 tablet by ity of tablet 00:00: mouth (two) Medical times Branch daily before breakfast and dinner. citalopram Yes [id number] 40mg Take 1 [facility] 40 mg 9-15 tablet by ity of tablet 00:00: mouth 00 daily. Medical Branch glipiZIDE Yes [id number] 10mg Take 1 U nivers 10 mg 9-15 tablet by ity of tablet 00:00: mouth (two) Medical times Branch daily before breakfast and dinner. citalopram 2018-0 Yes [id number] 40mg Take 1 [facility] 40 mg 9-15 tablet by ity of tablet 00:00: mouth 00 daily. Medical Branch glipiZIDE 0 Yes [id number] 10mg Take 1 U nivers 10 mg 9-15 tablet by ity of tablet 00:00: mouth (two) Medical times Branch daily before breakfast and dinner. citalopram 2018-0 Yes [id number] 40mg Take 1 [facility] 40 mg 9-15 tablet by ity of tablet 00:00: mouth 00 daily. Medical Branch glipiZIDE Yes [id number] 10mg Take 1 U nivers 10 mg 9-15 tablet by ity of tablet 00:00: mouth (two) Medical times Branch daily before breakfast and dinner. citalopram 0 Yes [id number] 40mg Take 1 [facility] 40 mg 9-15 tablet by ity of tablet 00:00: mouth [place] 00 daily. Medical Branch glipiZIDE 2018-0 Yes [id number] 10mg Take 1 U nivers 10 mg 9-15 tablet by ity of tablet 00:00: mouth 2 [place] 00 (two) Medical times Branch daily before breakfast and dinner. citalopram 2018-0 Yes [id number] 40mg Take 1 [facility] 40 mg 9-15 tablet by ity of tablet 00:00: mouth [place] 00 daily. Medical Branch glipiZIDE Yes [id number] 10mg Take 1 U nivers 10 mg 9-15 tablet by ity of tablet 00:00: mouth 2 [place] 00 (two) Medical times Branch daily before breakfast and dinner. citalopram Yes [id number] 40mg Take 1 [facility] 40 mg 9-15 tablet by ity of tablet 00:00: mouth [place] 00 daily. Medical Branch citalopram Yes [id number] 40mg Take 1 [facility] 40 mg 9-15 tablet by ity of tablet 00:00: mouth [place] 00 daily. Medical Branch citalopram Yes [id number] 40mg Take 1 [facility] 40 mg 9-15 tablet by ity of tablet 00:00: mouth [place] 00 daily. Medical Branch citalopram Yes [id number] 40mg Take 1 [facility] 40 mg 9-15 tablet by ity of tablet 00:00: mouth [place] 00 daily. Medical Branch citalopram Yes [id number] 40mg Take 1 [facility] 40 mg 9-15 tablet by ity of tablet 00:00: mouth [place] 00 daily. Medical Branch citalopram Yes [id number] 40mg Take 1 [facility] 40 mg 9-15 tablet by ity of tablet 00:00: mouth [place] 00 daily. Medical Branch citalopram 0 Yes [id number] 40mg Take 1 [facility] 40 mg 9-15 tablet by ity of tablet 00:00: mouth [place] 00 daily. Medical Branch citalopram Yes [id number] 40mg Take 1 [facility] 40 mg 9-15 tablet by ity of tablet 00:00: mouth [place] 00 daily. Medical Branch citalopram Yes [id number] 40mg Take 1 [facility] 40 mg 9-15 tablet by ity of tablet 00:00: mouth [place] 00 daily. Medical Branch glipiZIDE 2021- No [id number] 10mg Take 1 [facility] 10 mg 9-15 04-22 tablet by ity of tablet 00:00: 00:00 mouth 2 [place] 00 :00 (two) Medical times Branch daily before breakfast and dinner. gabapentin No = 2 cap, Mem oria 300 MG Oral 9-12 PO, TID, # l Capsule 13:17: 540 [place] 36 unknown unit, [id number] gabapentin No = 2 cap, Mem oria 300 MG Oral 9-12 PO, TID, # l Capsule 13:17: 540 [place] 36 unknown unit, Pharmacy: [facility] #[id number] gabapentin No = 2 cap, Mem oria 300 MG Oral 9-12 PO, TID, # l Capsule 13:17: 540 [place] 36 unknown unit, Pharmacy: [facility] #[id number] gabapentin No = 2 cap, Mem oria 300 MG Oral 9-12 PO, TID, # l Capsule 13:17: 540 [place] 36 unknown unit, Pharmacy: [facility] #[id number] gabapentin No = 2 cap, Mem oria 300 MG Oral 9-12 PO, TID, # l Capsule 13:17: 540 [place] 36 unknown unit, Pharmacy: [facility] #[id number] gabapentin No = 2 cap, Mem oria 300 MG Oral 9-12 PO, TID, # l Capsule 13:17: 540 [place] 36 unknown unit, Pharmacy: [facility] #[id number] gabapentin No = 2 cap, Mem oria 300 MG Oral 9-12 PO, TID, # l Capsule 13:17: 540 [place] 36 unknown unit, Pharmacy: [facility] #[id number] cephALEXin 2019- No [id number] 500mg Take 1 Univers (KEFLEX) 01-31 [id number] capsule by it y of 500 mg 00:00: 04:59 mouth 4 [place] capsule 00 :00 (four) Medical times Branch daily for 7 days. clopidogrel Yes 75mg Take 75 mg Univers (PLAVIX) 75 7-01 by mouth ity of mg tablet 18:08: daily. [address] clopidogrel 2019-0 Yes 75mg Take 75 mg Univers (PLAVIX) 75 7-01 by mouth ity of mg tablet 18:08: daily. [address] clopidogrel 2019-0 Yes 75mg Take 75 mg Univers (PLAVIX) 75 7-01 by mouth ity of mg tablet 18:08: daily. [address] metFORMIN 2019-0 Yes [id number] 1000mg Take 1 [facility] 1,000 mg 7-01 tablet by ity of tablet 00:00: mouth [place] ([facility]) Medical times Branch daily with meals. metFORMIN 2019-0 Yes [id number] 1000mg Take 1 [facility] 1,000 mg 7-01 tablet by ity of tablet 00:00: mouth [place] ([facility]) Medical times Branch daily with meals. metFORMIN 2019-0 Yes [id number] 1000mg Take 1 [facility] 1,000 mg 7-01 tablet by ity of tablet 00:00: mouth [place] ([facility]) Medical times Branch daily with meals. metFORMIN 2019-0 Yes [id number] 1000mg Take 1 [facility] 1,000 mg 7-01 tablet by ity of tablet 00:00: mouth [place] ([facility]) Medical times Branch daily with meals. metFORMIN 2019-0 Yes [id number] 1000mg Take 1 [facility] 1,000 mg 7-01 tablet by ity of tablet 00:00: mouth [place] ([facility]) Medical times Branch daily with meals. metFORMIN 2019-0 Yes [id number] 1000mg Take 1 [facility] 1,000 mg 7-01 tablet by ity of tablet 00:00: mouth [place] ([facility]) Medical times Branch daily with meals. metFORMIN 2019-0 Yes [id number] 1000mg Take 1 [facility] 1,000 mg 7-01 tablet by ity of tablet 00:00: mouth [place] ([facility]) Medical times Branch daily with meals. metFORMIN 2019-0 Yes [id number] 1000mg Take 1 [facility] 1,000 mg 7-01 tablet by ity of tablet 00:00: mouth [place] ([facility]) Medical times Branch daily with meals. metFORMIN 2019-0 Yes [id number] 1000mg Take 1 [facility] 1,000 mg 7-01 tablet by ity of tablet 00:00: mouth [place] ([facility]) Medical times Branch daily with meals. glipiZIDE 5 2019-0 Yes [id number] 2 tabs TID Univers mg tablet 7- ity of 00:00: [place] 00 Medical Branch metFORMIN 2019-0 Yes [id number] 1000mg Take 1 [facility] 1,000 mg 7-01 tablet by ity of tablet 00:00: mouth (two) Medical times Branch daily with meals. citalopram 2019- Yes [id number] 40mg Take 1 [facility] 40 mg 7-01 tablet by ity of tablet 00:00: mouth 00 daily. Medical Branch glipiZIDE 5 2018- Yes [id number] 2 tabs TID Univers mg tablet 7- ity of 00:00: 00 Medical Branch metFORMIN 2019-0 Yes [id number] 1000mg Take 1 [facility] 1,000 mg 7-01 tablet by ity of tablet 00:00: mouth (two) Medical times Branch daily with meals. citalopram 2018- Yes [id number] 40mg Take 1 [facility] 40 mg 7-01 tablet by ity of tablet 00:00: mouth daily. Medical Branch glipiZIDE 5 Yes [id number] 2 tabs TID [facility] mg tablet 7- ity of 00:00: 00 Medical Branch metFORMIN 2018-0 Yes [id number] 1000mg Take 1 [facility] 1,000 mg 7-01 tablet by ity of tablet 00:00: mouth (two) Medical times Branch daily with meals. citalopram 2018- Yes [id number] 40mg Take 1 [facility] 40 mg 7-01 tablet by ity of tablet 00:00: mouth daily. Medical Branch metFORMIN 2018-0 Yes [id number] 1000mg Take 1 [facility] 1,000 mg 7-01 tablet by ity of tablet 00:00: mouth (two) Medical times Branch daily with meals. metFORMIN 2019- Yes [id number] 1000mg Take 1 [facility] 1,000 mg 7-01 tablet by ity of tablet 00:00: mouth (two) Medical times Branch daily with meals. metFORMIN 2018- Yes [id number] 1000mg Take 1 [facility] 1,000 mg 7-01 tablet by ity of tablet 00:00: mouth 2 (two) Medical times Branch daily with meals. metFORMIN 2019- Yes [id number] 1000mg Take 1 [facility] 1,000 mg 7-01 tablet by ity of tablet 00:00: mouth (two) Medical times Branch daily with meals. metFORMIN 2019-0 Yes [id number] 1000mg Take 1 [facility] 1,000 mg 7-01 tablet by ity of tablet 00:00: mouth (two) Medical times Branch daily with meals. metFORMIN 2019-0 Yes [id number] 1000mg Take 1 [facility] 1,000 mg 7-01 tablet by ity of tablet 00:00: mouth (two) Medical times Branch daily with meals. metFORMIN 2019-0 Yes [id number] 1000mg Take 1 [facility] 1,000 mg 7-01 tablet by ity of tablet 00:00: mouth (two) Medical times Branch daily with meals. metFORMIN 2019-0 Yes [id number] 1000mg Take 1 [facility] 1,000 mg 7-01 tablet by ity of tablet 00:00: mouth (two) Medical times Branch daily with meals. metFORMIN 2019-0 Yes [id number] 1000mg Take 1 [facility] 1,000 mg 7-01 tablet by ity of tablet 00:00: mouth (two) Medical times Branch daily with meals. metFORMIN 2019-0 Yes [id number] 1000mg Take 1 [facility] 1,000 mg 7-01 tablet by ity of tablet 00:00: mouth (two) Medical times Branch daily with meals. metFORMIN 2019-0 Yes [id number] 1000mg Take 1 [facility] 1,000 mg 7-01 tablet by ity of tablet 00:00: mouth (two) Medical times Branch daily with meals. metFORMIN 2019-0 Yes [id number] 1000mg Take 1 [facility] 1,000 mg 7-01 tablet by ity of tablet 00:00: mouth (two) Medical times Branch daily with meals. metFORMIN 2019-0 Yes [id number] 1000mg Take 1 [facility] 1,000 mg 7-01 tablet by ity of tablet 00:00: mouth (two) Medical times Branch daily with meals. metFORMIN 2019-0 Yes [id number] 1000mg Take 1 [facility] 1,000 mg 7-01 tablet by ity of tablet 00:00: mouth (two) Medical times Branch daily with meals. metFORMIN 2019-0 Yes [id number] 1000mg Take 1 [facility] 1,000 mg 7-01 tablet by ity of tablet 00:00: mouth (two) Medical times Branch daily with meals. metFORMIN 2019- Yes [id number] 1000mg Take 1 [facility] 1,000 mg 7-01 tablet by ity of tablet 00:00: mouth (two) Medical times Branch daily with meals. metFORMIN 2019-0 Yes [id number] 1000mg Take 1 [facility] 1,000 mg 7-01 tablet by ity of tablet 00:00: mouth (two) Medical times Branch daily with meals. metFORMIN 2019-0 Yes [id number] 1000mg Take 1 [facility] 1,000 mg 7-01 tablet by ity of tablet 00:00: mouth (two) Medical times Branch daily with meals. metFORMIN 2019-0 Yes [id number] 1000mg Take 1 [facility] 1,000 mg 7-01 tablet by ity of tablet 00:00: mouth (two) Medical times Branch daily with meals. metFORMIN 2018- Yes [id number] 1000mg Take 1 [facility] 1,000 mg 7-01 tablet by ity of tablet 00:00: mouth (two) Medical times Branch daily with meals. metFORMIN 2018- Yes [id number] 1000mg Take 1 [facility] 1,000 mg 7-01 tablet by ity of tablet 00:00: mouth (two) Medical times Branch daily with meals. metFORMIN 2018-0 Yes [id number] 1000mg Take 1 [facility] 1,000 mg 7-01 tablet by ity of tablet 00:00: mouth (two) Medical times Branch daily with meals. glipiZIDE 5 2019- No [id number] 2 tabs TID [facility] mg tablet 12-01 ity of 00:00: 00:00 [place] 00 :00 Medical Branch citalopram 2018- 2019- No [id number] 40mg Take 1 [facility] 40 mg 12-01 tablet by ity of tablet 00:00: 00:00 mouth [place] 00 :00 daily. Medical Branch sitagliptan 2019-0 Yes 1{tbl} Take 1 Un [facility] -metformin 6-24 tablet by ity of (JANUMET) 20:32: mouth 2 [place] 50-500 mg 48 (two) Medical per tablet times Branch daily with meals. sitagliptan 2018-0 Yes 1{tbl} Take 1 Un meri -metformin 6-24 tablet by ity of (JUNUMET) 20:32: mouth 2 [place] 50-500 mg 48 (two) Medical per tablet times Branch daily with meals. sitagliptan 2018- Yes 1{tbl} Take 1 Un meri -metformin 6-24 tablet by ity of (JUNUMET) 20:32: mouth 2 [place] 50-500 mg 48 (two) Medical per tablet times Branch daily with meals. apixaban 5 2018-0 Yes [id number] 10 mg BID [facility] mg tablet 6-24 for 7 ity of 00:00: days. Followed Medical by 5 mg Branch BID apixaban 5 2019-0 Yes [id number] 10 mg BID [facility] mg tablet 6-24 for 7 ity of 00:00: days. Followed Medical by 5 mg Branch BID apixaban 5 2019-0 Yes [id number] 10 mg BID [facility] mg tablet 6-24 for 7 ity of 00:00: days. Followed Medical by 5 mg Branch BID apixaban 5 2019-0 Yes [id number] 10 mg BID [facility] mg tablet 6-24 for 7 ity of 00:00: days. Followed Medical by 5 mg Branch BID apixaban 5 2019-0 Yes [id number] 10 mg BID [facility] mg tablet 6-24 for 7 ity of 00:00: days. 00 Followed Medical by 5 mg Branch BID gabapentin No = 2 cap, Mem oria 300 MG Oral 6-04 PO, TID, # l Capsule 20:55: [address] [place] 46 unknown unit, Pharmacy: [facility] #[id number] gabapentin 2018-0 No = 2 cap, Mem oria 300 MG Oral 6-04 PO, TID, # l Capsule 20:55: 540 [place] 46 unknown unit, Pharmacy: [facility] #[id number] gabapentin 2018-0 No = 2 cap, Mem oria 300 MG Oral 6-04 PO, TID, # l Capsule 20:55: [address] [place] 46 unknown unit, Pharmacy: [facility] #[id number] gabapentin 2018-0 No = 2 cap, Mem oria 300 MG Oral 6-04 PO, TID, # l Capsule 20:55: 540 [place] 46 unknown unit, Pharmacy: [facility] #[id number] gabapentin 2018-0 No = 2 cap, Mem oria 300 MG Oral 6-04 PO, TID, # l Capsule 20:55: 540 [place] 46 unknown unit, Pharmacy: [place] [address] gabapentin 2019-0 No = 2 cap, Mem oria 300 MG Oral 6-04 PO, TID, # l Capsule 20:55: 540 [place] 46 unknown unit, Pharmacy: [place] [address] gabapentin 2019-0 No = 2 cap, Mem oria 300 MG Oral 6-04 PO, TID, # l Capsule 20:55: 540 [place] 46 unknown unit, Pharmacy: [place] [address] lamotrigine 2019-0 Yes = 1 tab, Me moria 200 MG Oral 5-28 PO, BID, # l Tablet 14:34: 60 tab, [place] 36 Refill(s) 5, Pharmacy: [place] [address] lamotrigine 2019-0 Yes = 1 tab, Me moria 200 MG Oral 5-28 PO, BID, # l Tablet 14:34: 60 tab, [place] 36 Refill(s) 5, Pharmacy: [place] [address] lamotrigine 2019-0 Yes = 1 tab, Me moria 200 MG Oral 5-28 PO, BID, # l Tablet 14:34: 60 tab, [place] 36 Refill(s) 5, Pharmacy: [place] [address] lamotrigine 2019-0 Yes = 1 tab, Me moria 200 MG Oral 5-28 PO, BID, # l Tablet 14:34: 60 tab, [place] 36 Refill(s) 5, Pharmacy: [place] [address] lamotrigine 2019-0 Yes = 1 tab, Me moria 200 MG Oral 5-28 PO, BID, # l Tablet 14:34: 60 tab, [place] 36 Refill(s) 5, Pharmacy: [place] [address] lamotrigine 2019-0 Yes = 1 tab, Me moria 200 MG Oral 5-28 PO, BID, # l Tablet 14:34: 60 tab, [place] 36 Refill(s) 5, Pharmacy: [place] [address] lamotrigine 2019-0 Yes = 1 tab, Me moria 200 MG Oral 5-28 PO, BID, # l Tablet 14:34: 60 tab, [place] 36 Refill(s) 5, Pharmacy: [place] [id number] rOPINIRole Yes See Memoria 2 mg oral 1-31 Instructio l tablet 16:20: ns, TAKE 1 Dianne nn 04 TABLET BY MOUTH 3 TIMES A DAY, # 270 tab, 3 Refill(s), Pharmacy: [facility] rOPINIRole Yes See Memoria 2 mg oral 1-31 Instructio l tablet 16:20: ns, TAKE 1 [place] nn 04 TABLET BY MOUTH 3 TIMES A DAY, # 270 tab, 3 Refill(s), Pharmacy: [facility] rOPINIRole Yes See Memoria 2 mg oral 1-31 Instructio l tablet 16:20: ns, TAKE 1 [place] nn 04 TABLET BY MOUTH 3 TIMES A DAY, # 270 tab, 3 Refill(s), Pharmacy: [facility] rOPINIRole Yes See Memoria 2 mg oral 1-31 Instructio l tablet 16:20: ns, TAKE 1 [place] nn 04 TABLET BY MOUTH 3 TIMES A DAY, # 270 tab, 3 Refill(s), Pharmacy: [facility] rOPINIRole Yes See Memoria 2 mg oral 1-31 Instructio l tablet 16:20: ns, TAKE 1 [place] nn 04 TABLET BY MOUTH 3 TIMES A DAY, # 270 tab, 3 Refill(s), Pharmacy: [facility] rOPINIRole Yes See Memoria 2 mg oral 1-31 Instructio l tablet 16:20: ns, TAKE 1 [place] nn 04 TABLET BY MOUTH 3 TIMES A DAY, # 270 tab, 3 Refill(s), Pharmacy: [facility] rOPINIRole Yes See Memoria 2 mg oral 1-31 Instructio l tablet 16:20: ns, TAKE 1 [place] nn 04 TABLET BY MOUTH 3 TIMES A DAY, # 270 tab, 3 Refill(s), Pharmacy: [facility] acetaminoph Yes [id number] 06/04 - Univers en-codeine 1-25 tab Every ity of 300-30 mg 00:00: 4hrs as [place] tablet 00 needed for Medical pain or Branch cough requiring narcotic acetaminoph Yes [id number] 2 - Univers en-codeine 1-25 tab Every ity of 300-30 mg 00:00: 4hrs as [place] tablet 00 needed for Medical pain or Branch cough requiring narcotic acetaminoph Yes [id number] 2 - 1 [facility] en-codeine 1-25 tab Every ity of 300-30 mg 00:00: 4hrs as [place] tablet 00 needed for Medical pain or Branch cough requiring narcotic acetaminoph Yes [id number] 2 - 1 [facility] en-codeine 1-25 tab Every ity of 300-30 mg 00:00: 4hrs as [place] tablet 00 needed for Medical pain or Branch cough requiring narcotic acetaminoph Yes [id number] 06/04 - Univers en-codeine 1-25 tab Every [...] 09 Refill(s), Pharmacy: [facility] lamotrigine 2019-0 No = 1 tab, Me moria 200 MG Oral 1-14 PO, BID, # l Tablet 21:52: 180 tab, 1 Dian[place] nn 09 Refill(s), Pharmacy: [facility] lamotrigine 2018-0 No = 1 tab, Me moria 200 MG Oral 1-14 PO, BID, # l Tablet 21:51: 60 tab, [place] 03 Refill(s) , 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, [facility] lamotrigine 2018-0 No = 1 tab, Me mor[place] 200 MG Oral 1-14 PO, BID, # l Tablet 21:51: 60 tab, [place] 03 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) , 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, [facility] lamotrigine 2018-0 No = 1 tab, Me mor[place] 200 MG Oral 1-14 PO, BID, # l Tablet 21:51: 60 tab, [place] 03 Refill(s) , 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, [facility] lamotrigine 0 No = 1 tab, Me mor[place] 200 MG Oral 1-14 PO, BID, # l Tablet 21:51: 60 tab, [place] 03 Refill(s) , 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, [facility] 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 0 No = 1 tab, Me mor[place] 200 MG Oral 1-14 PO, BID, # l Tablet 21:51: 60 tab, [place] 03 Refill(s) 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 gabapentin 2017- No 600 mg = 2 M emoria 300 MG Oral 2-14 cap, PO, l Capsule 23:32: TID, X 90 Dianne nn 12 day, # 540 cap, 3 Refill(s), [facility] gabapentin 2017- No 600 mg = 2 M emoria 300 MG Oral 2-14 cap, PO, l Capsule 23:32: TID, X 90 [place] nn 12 day, # 540 cap, 3 Refill(s), [facility] gabapentin 2017- No 600 mg = 2 M emoria 300 MG Oral 2-14 cap, PO, l Capsule 23:32: TID, X 90 [place]ne nn 12 day, # 540 cap, 3 Refill(s), [facility] gabapentin 2017- No 600 mg = 2 M emoria 300 MG Oral 2-14 cap, PO, l Capsule 23:32: TID, X 90 [place] nn 12 day, # 540 cap, 3 Refill(s), [id number] gabapentin 2017- No 600 mg = 2 M emoria 300 MG Oral 2-14 cap, PO, l Capsule 23:32: TID, X 90 [place] nn 12 day, # 540 cap, 3 Refill(s), [id number] gabapentin 2017- No 600 mg = 2 M emoria 300 MG Oral 2-14 cap, PO, l Capsule 23:32: TID, X 90 Dianne nn 12 day, # 540 cap, 3 Refill(s), [id number] gabapentin 2017- No 600 mg = 2 M emoria 300 MG Oral 2-14 cap, PO, l Capsule 23:32: TID, X 90 Dianne nn 12 day, # 540 cap, 3 Refill(s), [id number] lamotrigine 2018- No = 1 tab, Me moria 200 MG Oral 2-12 PO, BID, # l Tablet 14:58: 60 tab, [place] 59 [id number] lamotrigine 2018- No = 1 tab, Me moria 200 MG Oral 2-12 PO, BID, # l Tablet 14:58: 60 tab, [place] 59 Pharmacy: [id number] lamotrigine 2018- No = 1 tab, Me moria 200 MG Oral 2-12 PO, BID, # l Tablet 14:58: 60 tab, [place] 59 Pharmacy: [facility] #[id number] lamotrigine 2018- No = 1 tab, Me moria 200 MG Oral 2-12 PO, BID, # l Tablet 14:58: 60 tab, [place] 59 Pharmacy: [id number] lamotrigine 2018- No = 1 tab, Me moria 200 MG Oral 2-12 PO, BID, # l Tablet 14:58: 60 tab, [place] 59 Pharmacy: [id number] lamotrigine 2018- No = 1 tab, Me moria 200 MG Oral 2-12 PO, BID, # l Tablet 14:58: 60 tab, [place] 59 Pharmacy: [facility][id number] lamotrigine 2018- No = 1 tab, Me moria 200 MG Oral 2-12 PO, BID, # l Tablet 14:58: 60 tab, [place] 59 Pharmacy: [facility] #[id number] lamoTRIgine Yes TAKE 1 Univ ers 200 [...] [place] 00 TWICE A Medical DAY Branch lamoTRIgine 2017 Yes TAKE 1 Univ ers 200 mg 3-25 TABLET BY ity of tablet 00:00: MOUTH TWICE A Medical DAY Branch lamoTRIgine 2017- Yes [...] MOUTH TIMES A Medical DAY Branch lamoTRIgine 2017-0 [...] MOUTH TWICE A Medical DAY Branch rOPINIRole 0 [...] MOUTH TIMES A Medical DAY Branch lamoTRIgine 2017-0 [...] 3 TIMES A Medical DAY Branch rOPINIRole 2017-0 Yes [...] MOUTH TWICE A Medical DAY Branch rOPINIRole 2017- Yes TAKE 1 Unive rs 2 mg [...] 00 TWICE A Medical DAY Branch rOPINIRole 2016-0 [...] TABLET BY ity of 00:00: MOUTH 3 00 TIMES A Medical DAY Branch lamoTRIgine [id number] 2023- No TAKE 1 Uni vers 200 mg 3-25 07-03 TABLET BY ity of tablet 00:00: 00:00 MOUTH [place] 00 :00 TWICE A Medical DAY Branch rOPINIRole 2017-0 2023- No TAKE 1 Univ ers 2 mg tablet 08-25-05 TABLET BY it y of 00:00: 00:00 MOUTH 3 [place] 00 :00 TIMES A Medical DAY Branch gabapentin 2017-0 Yes TAKE TWO Uni vers 300 mg 2-13 CAPSULE BY ity of capsule 00:00: MOUTH 3 [place] 00 TIMES A Medical DAY Branch gabapentin 2017-0 Yes TAKE TWO Uni vers 300 mg 2-13 CAPSULE BY ity of capsule 00:00: MOUTH 3 [place] 00 TIMES A Medical DAY Branch gabapentin 2017-0 Yes TAKE TWO Uni vers 300 mg 2-13 CAPSULE BY ity of capsule 00:00: MOUTH 3 [place] 00 TIMES A Medical DAY Branch gabapentin 2017-0 Yes TAKE TWO Uni vers 300 mg 2-13 CAPSULE BY ity of capsule 00:00: MOUTH 3 [place] 00 TIMES A Medical DAY Branch lovastatin 2017-0 Yes 20mg Take 20 mg U nivers 20 mg 2-13 by mouth ity of tablet 00:00: every [place] 00 morning. Medical Branch gabapentin 2016-0 Yes TAKE TWO Uni vers 300 mg 2-13 CAPSULE BY ity of capsule 00:00: MOUTH 3 [place] 00 TIMES A Medical DAY Branch lovastatin 2016-0 Yes 20mg Take 20 mg U nivers 20 mg 2-13 by mouth ity of tablet 00:00: every [place] 00 morning. Medical Branch gabapentin 2016-0 Yes TAKE TWO Uni vers 300 mg 2-13 CAPSULE BY ity of capsule 00:00: MOUTH 3 [place] 00 TIMES A Medical DAY Branch lovastatin 2017-0 Yes 20mg Take 20 mg U nivers 20 mg 2-13 by mouth ity of tablet 00:00: every [place] 00 morning. Medical Branch gabapentin 2017-0 Yes TAKE TWO Uni vers 300 mg 2-13 CAPSULE BY ity of capsule 00:00: MOUTH 3 [place] 00 TIMES A Medical DAY Branch lovastatin 2017-0 Yes 20mg Take 20 mg U nivers 20 mg 2-13 by mouth ity of tablet 00:00: every [place] 00 morning. Medical Branch gabapentin 2016-0 Yes TAKE TWO Uni vers 300 mg 2-13 CAPSULE BY ity of capsule 00:00: MOUTH 3 [place] 00 TIMES A Medical DAY Branch lovastatin 2017-0 Yes 20mg Take 20 mg U nivers 20 mg 2-13 by mouth ity of tablet 00:00: every [place] 00 morning. Medical Branch gabapentin 2017-0 Yes TAKE TWO Uni vers 300 mg 2-13 CAPSULE BY ity of capsule 00:00: MOUTH 3 [place] TIMES A Medical DAY Branch lovastatin 2017-0 Yes 20mg Take 20 mg U nivers 20 mg 2-13 by mouth ity of tablet 00:00: every [place] 00 morning. Medical Branch gabapentin 2016-0 Yes TAKE TWO Uni vers 300 mg 2-13 CAPSULE BY ity of capsule 00:00: MOUTH 3 [place] TIMES A Medical DAY Branch lovastatin 2017-0 Yes 20mg Take 20 mg U nivers 20 mg 2-13 by mouth ity of tablet 00:00: every [place] 00 morning. Medical Branch gabapentin 0 Yes TAKE TWO Uni vers 300 mg 2-13 CAPSULE BY ity of capsule 00:00: MOUTH 3 [place] TIMES A Medical DAY Branch lovastatin 2017-0 Yes 20mg Take 20 mg U nivers 20 mg 2-13 by mouth ity of tablet 00:00: every [place] 00 morning. Medical Branch gabapentin 2016-0 Yes TAKE TWO Uni vers 300 mg 2-13 CAPSULE BY ity of capsule 00:00: MOUTH 3 [place] TIMES A Medical DAY Branch lovastatin 2016-0 Yes 20mg Take 20 mg U nivers 20 mg 2-13 by mouth ity of tablet 00:00: every [place] 00 morning. Medical Branch gabapentin 2016-0 Yes TAKE TWO Uni vers 300 mg 2-13 CAPSULE BY ity of capsule 00:00: MOUTH 3 [place] TIMES A Medical DAY Branch lovastatin 2017-0 Yes 20mg Take 20 mg U nivers 20 mg 2-13 by mouth ity of tablet 00:00: every [place] 00 morning. Medical Branch gabapentin 2016-0 Yes TAKE TWO Uni vers 300 mg 2-13 CAPSULE BY ity of capsule 00:00: MOUTH 3 [place] TIMES A Medical DAY Branch lovastatin 2017-0 Yes 20mg Take 20 mg U nivers 20 mg 2-13 by mouth ity of tablet 00:00: every [place] 00 morning. Medical Branch gabapentin 2016-0 Yes TAKE TWO Uni vers 300 mg 2-13 CAPSULE BY ity of capsule 00:00: MOUTH 3 [place] TIMES A Medical DAY Branch lovastatin 2017-0 Yes 20mg Take 20 mg U nivers 20 mg 2-13 by mouth ity of tablet 00:00: every [place] 00 morning. Medical Branch gabapentin 2016-0 Yes TAKE TWO Uni vers 300 mg 2-13 CAPSULE BY ity of capsule 00:00: MOUTH 3 TIMES A Medical DAY Branch lovastatin 2017-0 Yes 20mg Take 20 mg U nivers 20 mg 2-13 by mouth ity of tablet 00:00: every [place] 00 morning. Medical Branch gabapentin 2017-0 Yes TAKE TWO Uni vers 300 mg 2-13 CAPSULE BY ity of capsule 00:00: MOUTH 3 TIMES A Medical DAY Branch lovastatin 2017-0 Yes 20mg Take 20 mg U nivers 20 mg 2-13 by mouth ity of tablet 00:00: every [place] 00 morning. Medical Branch gabapentin 2016-0 Yes TAKE TWO Uni vers 300 mg 2-13 CAPSULE BY ity of capsule 00:00: MOUTH 3 [place] TIMES A Medical DAY Branch lovastatin 2016-0 Yes 20mg Take 20 mg U nivers 20 mg 2-13 by mouth ity of tablet 00:00: every [place] 00 morning. Medical Branch gabapentin 2016-0 Yes TAKE TWO Uni vers 300 mg 2-13 CAPSULE BY ity of capsule 00:00: MOUTH 3 [place] TIMES A Medical DAY Branch lovastatin 2016-0 Yes 20mg Take 20 mg U nivers 20 mg 2-13 by mouth ity of tablet 00:00: every [place] 00 morning. Medical Branch gabapentin 2016-0 Yes TAKE TWO Uni vers 300 mg 2-13 CAPSULE BY ity of capsule 00:00: MOUTH 3 [place] TIMES A Medical DAY Branch gabapentin 2016-0 Yes TAKE TWO Uni vers 300 mg 2-13 CAPSULE BY ity of capsule 00:00: MOUTH 3 [place] TIMES A Medical DAY Branch lovastatin 2016-0 Yes 20mg Take 20 mg U nivers 20 mg 2-13 by mouth ity of tablet 00:00: every [place] morning. Medical Branch lovastatin 2017-0 Yes 20mg Take 20 mg U nivers 20 mg 2-13 by mouth ity of tablet 00:00: every [place] 00 morning. Medical Branch gabapentin 2017-0 Yes TAKE TWO Uni vers 300 mg 2-13 CAPSULE BY ity of capsule 00:00: MOUTH 3 [place] TIMES A Medical DAY Branch lovastatin 2017-0 Yes 20mg Take 20 mg U nivers 20 mg 2-13 by mouth ity of tablet 00:00: every [place] 00 morning. Medical Branch gabapentin 2017-0 Yes TAKE TWO Uni vers 300 mg 2-13 CAPSULE BY ity of capsule 00:00: MOUTH 3 [place] TIMES A Medical DAY Branch gabapentin 2017-0 Yes TAKE TWO Uni vers 300 mg 2-13 CAPSULE BY ity of capsule 00:00: MOUTH 3 [place] 00 TIMES A Medical DAY Branch gabapentin Yes TAKE TWO Uni vers 300 mg 2-13 CAPSULE BY ity of capsule 00:00: MOUTH 3 [place] 00 TIMES A Medical DAY Branch gabapentin Yes TAKE TWO Uni vers 300 mg 2-13 CAPSULE BY ity of capsule 00:00: MOUTH 3 [place] 00 TIMES A Medical DAY Branch gabapentin Yes TAKE TWO Uni vers 300 mg 2-13 CAPSULE BY ity of capsule 00:00: MOUTH 3 [place] 00 TIMES A Medical DAY Branch gabapentin Yes TAKE TWO Uni vers 300 mg 2-13 CAPSULE BY ity of capsule 00:00: MOUTH 3 [place] 00 TIMES A Medical DAY Branch gabapentin Yes TAKE TWO Uni vers 300 mg 2-13 CAPSULE BY ity of capsule 00:00: MOUTH 3 [place] 00 TIMES A Medical DAY Branch gabapentin Yes TAKE TWO Uni vers 300 mg 2-13 CAPSULE BY ity of capsule 00:00: MOUTH 3 [place] 00 TIMES A Medical DAY Branch gabapentin 2022- No TAKE TWO Un meri 300 mg 2-13 06-05 CAPSULE BY ity of capsule 00:00: 00:00 MOUTH 3 [place] 00 :00 TIMES A Medical DAY Branch lovastatin 2021- No 20mg Take 20 mg Univers 20 [...] Immunizations Ordered Filled Immunization Date Status Comments [facility] e Immunization Name Name SARS-COV-2 COVID-19 2021-09-23 [...] [place] Med ical VACCINE Branch SARS-COV-2 COVID-19 2021-09-23 Completed Unive rsity of MODERNA 12+ YRS 00:00:00 [place] Med ical VACCINE Branch SARS-COV-2 COVID-19 2021-09-23 Completed Unive rsity of MODERNA 12+ YRS 00:00:00 [place] Med ical VACCINE Branch SARS-COV-2 COVID-19 2021-09-23 Completed Unive rsity of MODERNA 12+ YRS 00:00:00 [place] Med ical VACCINE Branch SARS-COV-2 COVID-19 2021-09-23 Completed Unive rsity of MODERNA 12+ YRS 00:00:00 [place] Med ical VACCINE Branch SARS-COV-2 COVID-19 2021-09-23 Completed [...] MODERNA VACCINE 00:00:00 [place] Med ical Branch MODERNA COVID-19 2021-04-03 Completed Methodis t MRNA VACCINATION 00:00:00 [facility] SARS-COV-2 COVID-19 2021-04-03 Completed Unive rsity of MODERNA 12+ YRS 00:00:00 [place] Med ical VACCINE Branch SARS-COV-2 COVID-19 2021-04-03 Completed Unive rsity of MODERNA 12+ YRS 00:00:00 [place] Med ical VACCINE Branch SARS-COV-2 COVID-19 2021-04-03 Completed Unive rsity of MODERNA 12+ YRS 00:00:00 [facility] ical VACCINE Branch SARS-COV-2 COVID-19 2021-04-03 Completed Unive rsity of MODERNA 12+ YRS 00:00:00 [place] [facility] ical VACCINE Branch SARS-COV-2 COVID-19 2021-04-03 Completed Unive rsity of MODERNA 12+ YRS 00:00:00 [facility] ical VACCINE Branch MODERNA COVID-19 2021-04-03 Completed Methodis t MRNA VACCINATION 00:00:00 [facility] MODERNA COVID-19 2020-09-04 Completed Methodis t MRNA VACCINATION 00:00:00 [facility] SARS-COV-2 COVID-19 2020-09-04 Completed Unive rsity of MODERNA VACCINE 00:00:00 [facility] ical Branch SARS-COV-2 COVID-19 2020-09-04 Completed Unive rsity of MODERNA VACCINE 00:00:00 [facility] ical Branch SARS-COV-2 COVID-19 2020-09-04 Completed Unive rsity of MODERNA VACCINE 00:00:00 [facility] ical Branch SARS-COV-2 COVID-19 2020-09-04 Completed Unive rsity of MODERNA VACCINE 00:00:00 [facility] ical Branch SARS-COV-2 COVID-19 2020-09-04 Completed Unive rsity of MODERNA 12+ YRS 00:00:00 [place] [facility] ical VACCINE Branch SARS-COV-2 COVID-19 2020-09-04 Completed [...] Completed Unive rsity of MODERNA VACCINE 00:00:00 [facility] ical Branch SARS-COV-2 COVID-19 2020-09-04 Completed Unive rsity of MODERNA VACCINE 00:00:00 [facility] ical Branch SARS-COV-2 COVID-19 2020-09-04 Completed Unive rsity of MODERNA VACCINE 00:00:00 [facility] ical Branch SARS-COV-2 COVID-19 2020-09-04 Completed Unive rsity of MODERNA VACCINE 00:00:00 [facility] ical Branch SARS-COV-2 COVID-19 2020-09-04 Completed Unive rsity of MODERNA VACCINE 00:00:00 [facility] COVID-19 2020-09-04 Completed Methodis t MRNA VACCINATION 00[facility]00:00 [facility] MODERNA COVID-19 2020-08-10 Completed Methodis t MRNA VACCINATION 00:00:00 Hospital MODERNA COVID-19 2020-08-10 Completed Methodis t MRNA VACCINATION 00:00:00 [facility] SARS-COV-2 COVID-19 2020-03-12 Completed Unive rsity of MODERNA VACCINE 00:00:00 [facility] SARS-COV-2 COVID-19 2020-03-12 Completed Unive rsity of MODERNA VACCINE 00:00:00 [facility] ical Branch SARS-COV-2 COVID-19 2020-03-12 Completed Unive rsity of MODERNA VACCINE 00:00:00 [facility] ical Branch SARS-COV-2 COVID-19 2020-03-12 Completed Unive rsity of MODERNA VACCINE 00:00:00 [facility] ical Branch SARS-COV-2 COVID-19 2020-03-12 Completed Unive rsity of MODERNA 12+ YRS 00:00:00 [facility] ical VACCINE Branch SARS-COV-2 COVID-19 2020-03-12 Completed Unive rsity of MODERNA 12+ YRS 00:00:00 [facility] ical VACCINE Branch SARS-COV-2 COVID-19 2020-03-12 Completed Unive rsity of MODERNA 12+ YRS 00:00:00 [facility] ical VACCINE Branch SARS-COV-2 COVID-19 2020-03-12 Completed Unive rsity of MODERNA 12+ YRS 00:00:00 [facility] ical VACCINE Branch SARS-COV-2 COVID-19 2020-03-12 Completed [...] Completed Unive rsity of MODERNA VACCINE 00:00:00 [facility] [place] Influenza High Dose 2019-03-03 Completed Unive rsity of 00:00:00 [facility] Influenza High Dose 2019-03-03 Completed Unive rsity of 00:00:00 [facility] Influenza High Dose 2019-03-03 Completed Unive rsity of 00:00:00 [facility] Influenza High Dose 2019-03-03 Completed Unive rsity of 00:00:00 [facility] Influenza High Dose 2019-03-03 Completed Unive rsity of 00:00:00 [facility] Influenza High Dose 2019-03-03 Completed Unive rsity of 00:00:00 [facility] Influenza High Dose 2019-03-03 Completed Unive rsity of 00:00:00 [facility] Influenza High Dose 2019-03-03 Completed Unive rsity of 00:00:00 [facility] Influenza High Dose 2019-03-03 Completed Unive rsity of 00:00:00 [facility] Influenza High Dose 2019-03-03 Completed Unive rsity of 00:00:00 [facility] Influenza High Dose 2019-03-03 Completed Unive rsity of 00:00:00 [facility] Influenza High Dose 2019-03-03 Completed Unive rsity of 00:00:00 [facility] Influenza High Dose 2019-03-03 Completed Unive rsity of 00:00:00 [facility] Influenza High Dose 2019-03-03 Completed Unive rsity of 00:00:00 [facility] Influenza High Dose 2019-03-03 Completed Unive rsity of 00:00:00 [facility] Influenza High Dose 2019-03-03 Completed Unive rsity of 00:00:00 [facility] Influenza High Dose 2019-03-03 Completed Unive rsity of 00:00:00 [facility] Influenza High Dose 2019-03-03 Completed Unive rsity of 00:00:00 [facility] Influenza High Dose 2019-03-03 Completed Unive rsity of 00:00:00 [facility] Influenza High Dose 2019-03-03 Completed Unive rsity of 00:00:00 [facility] Influenza High Dose 2019-03-03 Completed Unive rsity of 00:00:00 [facility] Influenza High Dose 2019-03-03 Completed Unive rsity of 00:00:00 [facility] Influenza High Dose 2019-03-03 Completed Unive rsity of 00:00:00 [facility] Influenza High Dose 2019-03-03 Completed Unive rsity of 00:00:00 [facility] Influenza High Dose 2019-03-03 Completed Unive rsity of 00:00:00 [facility] Influenza High Dose 2019-03-03 Completed Unive rsity of 00:00:00 [facility] Influenza High Dose 2019-03-03 Completed Unive rsity of 00:00:00 [facility] Influenza High Dose 2019-03-03 Completed Unive rsity of 00:00:00 [facility] Influenza High Dose 2019-03-03 Completed Unive rsity of 00:00:00 [facility] Influenza High Dose 2018-07-17 Completed Unive rsity of 00:00:00 [facility] Pneumococcal 13 2018-07-17 Completed Universit y of Conjugate, PCV13 00:00:00 [place] Me dical (Prevnar 13) Jet Influenza High Dose 2018-07-17 Completed Unive rsity of 00:00:00 [facility] Pneumococcal 13 2018-07-17 Completed Universit y of Conjugate, PCV13 00:00:00 [place] Me dical (Prevnar 13) Branch Influenza High Dose 2018-07-17 Completed Unive rsity of 00:00:00 [facility] Pneumococcal 13 2018-07-17 Completed Universit y of Conjugate, PCV13 00:00:00 [place] Me dical (Prevnar 13) Branch Influenza High Dose 2018-07-17 Completed Unive rsity of 00:00:00 [facility] Pneumococcal 13 2018-07-17 Completed Universit y of Conjugate, PCV13 00:00:00 [place] Me dical (Prevnar 13) Branch Influenza High Dose 2018-07-17 Completed Unive rsity of 00:00:00 [facility] Pneumococcal 13 2018-07-17 Completed Universit y of Conjugate, PCV13 00:00:00 [place] Me dical (Prevnar 13) Branch Influenza High Dose 2018-07-17 Completed Unive rsity of 00:00:00 [facility] Pneumococcal 13 2018-07-17 Completed Universit y of Conjugate, PCV13 00:00:00 [place] Me dical (Prevnar 13) Branch Influenza High Dose 2018-07-17 Completed Unive rsity of 00:00:00 [facility] Pneumococcal 13 2018-07-17 Completed Universit y of Conjugate, PCV13 00:00:00 [place] Me dical (Prevnar 13) Branch Influenza High Dose 2018-07-17 Completed Unive rsity of 00:00:00 [facility] Pneumococcal 13 2018-07-17 Completed Universit y of Conjugate, PCV13 00:00:00 [place] Me dical (Prevnar 13) Branch Influenza High Dose 2018-07-17 Completed Unive rsity of 00:00:00 [facility] Pneumococcal 13 2018-07-17 Completed Universit y of Conjugate, PCV13 00:00:00 [place] Me dical (Prevnar 13) Branch Influenza High Dose 2018-07-17 Completed Unive rsity of 00:00:00 [facility] Pneumococcal 13 2018-07-17 Completed Universit y of Conjugate, PCV13 00:00:00 [place] Me dical (Prevnar 13) Branch Influenza High Dose 2018-07-17 Completed Unive rsity of 00:00:00 [facility] Pneumococcal 13 2018-07-17 Completed Universit y of Conjugate, PCV13 00:00:00 [place] Me [facility] (Prevnar 13) Branch Influenza High Dose 2018-07-17 Completed Unive rsity of 00:00:00 [facility] Pneumococcal 13 2018-07-17 Completed Universit y of Conjugate, PCV13 00:00:00 [place] Me [facility] (Prevnar 13) Branch Influenza High Dose 2018-07-17 Completed Unive rsity of 00:00:00 [facility] Pneumococcal 13 2018-07-17 Completed Universit y of Conjugate, PCV13 00:00:00 [place] Me [facility] (Prevnar 13) Branch Influenza High Dose 2018-07-17 Completed Unive rsity of 00:00:00 [facility] Pneumococcal 13 2018-07-17 Completed Universit y of Conjugate, PCV13 00:00:00 [place] Me [facility]ical (Prevnar 13) Branch Influenza High Dose 2018-07-17 Completed Unive rsity of 00:00:00 [facility] Pneumococcal 13 2018-07-17 Completed Universit y of Conjugate, PCV13 00:00:00 [place] Me [facility] (Prevnar 13) Branch Influenza High Dose 2018-07-17 Completed Unive rsity of 00:00:00 [facility] Pneumococcal 13 2018-07-17 Completed Universit y of Conjugate, PCV13 00:00:00 [place] Me [facility] (Prevnar 13) Branch Influenza High Dose 2018-07-17 Completed Unive rsity of 00:00:00 [facility] Pneumococcal 13 2018-07-17 Completed Universit y of Conjugate, PCV13 00:00:00 [place] [facility] (Prevnar 13) Branch Influenza High Dose 2018-07-17 Completed Unive rsity of 00:00:00 [facility] Pneumococcal 13 2018-07-17 Completed Universit y of Conjugate, PCV13 00:00:00 [place] [facility] (Prevnar 13) Branch Influenza High Dose 2018-07-17 Completed Unive rsity of 00:00:00 [facility] Pneumococcal 13 2018-07-17 Completed Universit y of Conjugate, PCV13 00:00:00 [place] [facility] (Prevnar 13) Branch Influenza High Dose 2018-07-17 Completed Unive rsity of 00:00:00 [facility] Pneumococcal 13 2018-07-17 Completed Universit y of Conjugate, PCV13 00:00:00 [place] [facility] (Prevnar 13) Branch Influenza High Dose 2018-07-17 Completed Unive rsity of 00:00:00 [facility] Pneumococcal 13 2018-07-17 Completed Universit y of Conjugate, PCV13 00:00:00 [place] Me [facility] (Prevnar 13) Branch Influenza High Dose 2018-07-17 Completed Unive rsity of 00:00:00 [facility] Pneumococcal 13 2018-07-17 Completed Universit y of Conjugate, PCV13 00:00:00 [place] [facility] (Prevnar 13) Branch Influenza High Dose 2018-07-17 Completed Unive rsity of 00:00:00 [facility] Pneumococcal 13 2018-07-17 Completed Universit y of Conjugate, PCV13 00:00:00 [place] [facility] (Prevnar 13) Branch Influenza High Dose 2018-07-17 Completed Unive rsity of 00:00:00 [facility] Pneumococcal 13 2018-07-17 Completed Universit y of Conjugate, PCV13 00:00:00 [place] Me [facility] (Prevnar 13) Branch Vital Signs Vital Name Observation Time Observation Value Comments Source Height/Length 2021-06-20 167 cm Measured 09:47:40 Weight Dosing 2021-06-20 83.95 kg 09:47:40 Height/Length 2021-06-20 167 cm Measured 09:26:45 Weight Dosing 2021-06-20 83.95 kg 09:26:45 Height/Length 2021-06-20 167 cm Measured 09:26:32 Weight Dosing 2021-06-20 83.95 kg 09:26:32 Systolic blood 2022-12-03 112 mm[Hg] University of pressure 20:00:00 [facility] Diastolic blood 2022-12-03 63 mm[Hg] University o f pressure 20:00:00 [facility] Heart rate 2022-12-03 61 /min University of 20:00:00 [facility] Body temperature 2022-12-03 36.72 Erica University of 20:00:00 [facility] Respiratory rate 2022-12-03 12 /min University of 20:00:00 [facility] Oxygen saturation 2022-12-03 97 /min University of in Arterial blood 20:00:00 [facility] by Pulse oximetry Branch Body height 2022-12-03 167.6 cm University of 02:12:00 [facility] Body weight 2022-12-03 78.971 kg University of 02:12:00 [facility] BMI 2022-12-03 28.10 kg/m2 University of 02:12:00 [facility] Systolic blood 2022-11-05 121 mm[Hg] University of pressure 16:00:00 [facility] Diastolic blood 2022-11-05 66 mm[Hg] University o f pressure 16:00:00 [facility] Heart rate 2022-11-05 72 /min University of 16:00:00 [facility] Body temperature 2022-11-05 36.72 Erica University of 16:00:00 [facility] Respiratory rate 2022-11-05 17 /min University of 16:00:00 [facility] Oxygen saturation 2022-11-05 94 /min University of in Arterial blood 16:00:00 [facility] by Pulse oximetry Branch Body height 2022-11-01 167.6 cm estimated by University of 19:22:00 [facility] Body weight 2022-11-01 81.647 kg estimated by University of 19:22:00 [facility] BMI 2022-11-01 29.05 kg/m2 University of 19:22:00 [facility] Systolic blood 2022-09-08 157 mm[Hg] University of pressure 08:00:00 [facility] Diastolic blood 2022-09-08 76 mm[Hg] University o f pressure 08:00:00 [facility] Heart rate 2022-09-08 83 /min University of 08:00:00 [facility] [place] Branch Respiratory rate 2022-09-08 17 /min University of 08:00:00 [facility] Oxygen saturation 2022-09-08 96 /min University of in Arterial blood 08:00:00 [facility] [place] [facility] by Pulse oximetry Branch Body temperature 2022-09-08 36.78 Erica University of 05:39:00 [facility] Body height 2022-09-08 167.6 cm University [facility] 05:39:00 [facility] [facility] Body weight 2022-09-08 80.74 kg University of 05:39:00 [facility] BMI 2022-09-08 28.73 kg/m2 University of 05:39:00 [facility] Systolic blood 2022-01-16 133 mm[Hg] University of pressure 18:30:00 [facility] Diastolic blood 2022-01-16 61 mm[Hg] University o f pressure 18:30:00 [facility] Heart rate 2022-01-16 57 /min University of 18:30:00 [facility] Oxygen saturation 2022-01-16 98 /min University of in Arterial blood 18:30:00 [facility] by Pulse oximetry Branch Body temperature 2022-01-16 36.22 Erica University of 16:53:00 [facility] Respiratory rate 2022-01-16 16 /min University of 16:53:00 [facility] Body height 2022-01-15 165.1 cm University of 19:56:00 [facility] Body weight 2022-01-15 75.3 kg University of 19:56:00 [facility] BMI 2022-01-15 27.62 kg/m2 University of 19:56:00 [facility] Systolic blood 2021-09-23 124 mm[Hg] University of pressure 16:15:00 [facility] Diastolic blood 2021-09-23 63 mm[Hg] University o f pressure 16:15:00 [facility] Heart rate 2021-09-23 62 /min University of 16:15:00 [facility] Body temperature 2021-09-23 36.78 Erica University of 16:15:00 [facility] Respiratory rate 2021-09-23 16 /min University of 16:15:00 [facility] Oxygen saturation 2021-09-23 96 /min University of in Arterial blood 16:15:00 [facility] corby by Pulse oximetry Branch Body height 2021-09-23 165.1 cm University of 15:51:00 [facility] Body weight 2021-09-23 75.297 kg University of 15:51:00 [facility] BMI 2021-09-23 27.62 kg/m2 University of 15:51:00 [facility] Systolic blood 2021-04-29 120 mm[Hg] University of pressure 15:30:00 [facility] Diastolic blood 2021-04-29 83 mm[Hg] University o f pressure 15:30:00 [facility] Heart rate 2021-04-29 84 /min University of 15:30:00 [facility] Body temperature 2021-04-29 36.5 Erica University of 15:30:00 [facility] Respiratory rate 2021-04-29 18 /min University of 15:30:00 [facility] Body height 2021-04-29 167.6 cm University of 15:30:00 [facility] Body weight 2021-04-29 79.379 kg University of 15:30:00 [facility] BMI 2021-04-29 28.25 kg/m2 University of 15:30:00 [facility] Oxygen saturation 2021-04-29 99 /min University of in Arterial blood 15:30:00 [facility] by Pulse oximetry Branch Systolic blood 2021-01-24 143 mm[Hg] University of pressure 12:34:00 [facility] Diastolic blood 2021-01-24 78 mm[Hg] University o f pressure 12:34:00 [facility] Heart rate 2021-01-24 67 /min University of 12:34:00 [facility] Body temperature 2021-01-24 37.06 Erica University of 12:34:00 [facility] Respiratory rate 2021-01-24 18 /min University of 12:34:00 [facility] Oxygen saturation 2021-01-24 97 /min University of in Arterial blood 12:34:00 [facility] by Pulse oximetry Branch Body height 2021-01-20 162.6 cm University of 21:51:00 [facility] Body weight 2021-01-20 82.555 kg University of 21:51:00 [facility] BMI 2021-01-20 31.24 kg/m2 University of 21:51:00 [facility] Systolic blood 2020-02-14 154 mm[Hg] University of pressure 19:25:00 [facility] Diastolic blood 2020-02-14 95 mm[Hg] University o f pressure 19:25:00 [facility] Heart rate 2020-02-14 82 /min University of 19:25:00 [facility] Body temperature 2020-02-14 36.72 Erica University of 19:25:00 [facility] Respiratory rate 2020-02-14 20 /min University of 19:25:00 [facility] Body weight 2020-02-14 84.823 kg University of 19:25:00 [facility] BMI 2020-02-14 30.18 kg/m2 University of 19:25:00 [facility] Oxygen saturation 2020-02-14 98 /min University of in Arterial blood 19:25:00 [facility] by Pulse oximetry Branch Systolic blood 2020-02-14 154 mm[Hg] University of pressure 19:25:00 [facility] Diastolic blood 2020-02-14 95 mm[Hg] University o f pressure 19:25:00 [facility] Heart rate 2020-02-14 82 /min University of 19:25:00 [facility] Body temperature 2020-02-14 36.72 Erica University of 19:25:00 [facility] Respiratory rate 2020-02-14 20 /min University of 19:25:00 [facility] Body weight 2020-02-14 84.823 kg University of 19:25:00 [facility] BMI 2020-02-14 30.18 kg/m2 University of 19:25:00 [facility] Oxygen saturation 2020-02-14 98 /min University of in Arterial blood 19:25:00 [facility] corby by Pulse oximetry Branch Systolic blood 2019-09-20 159 mm[Hg] University of pressure 21:15:00 [facility] Diastolic blood 2019-09-20 79 mm[Hg] University o f pressure 21:15:00 [facility] Heart rate 2019-09-20 71 /min University of 21:15:00 [facility] Oxygen saturation 2019-09-20 97 /min University of in Arterial blood 21:15:00 [facility] corby by Pulse oximetry Branch Respiratory rate 2019-09-20 16 /min University [facility] 20:00:00 [facility] Body temperature 2019-09-20 37.61 Erica University of 17:50:00 [facility] Body weight 2019-09-20 86.183 kg University of 17:50:00 [facility] BMI 2019-09-20 30.67 kg/m2 University of 17:50:00 [facility] Systolic blood 2019-09-20 159 mm[Hg] University of pressure 21:15:00 [facility] Diastolic blood 2019-09-20 79 mm[Hg] University o f pressure 21:15:00 [facility] Heart rate 2019-09-20 71 /min University of 21:15:00 [facility] Oxygen saturation 2019-09-20 97 /min University of in Arterial blood 21:15:00 [facility] by Pulse oximetry Branch Respiratory rate 2019-09-20 16 /min University of 20:00:00 [facility] Body temperature 2019-09-20 37.61 Erica University of 17:50:00 [facility] Body weight 2019-09-20 86.183 kg University of 17:50:00 [facility] BMI 2019-09-20 30.67 kg/m2 University of 17:50:00 [facility] Height/Length 2019-08-07 Measured 14:27:17 Weight Dosing 2019-08-07 14:27:17 Heart rate 2019-02-15 81 /min University of 12:38:00 [facility] Respiratory rate 2019-02-15 20 /min University of 12:38:00 [facility] Oxygen saturation 2019-02-15 99 /min University of in Arterial blood 12:38:00 [facility] by Pulse oximetry Branch Systolic blood 2019-02-15 125 mm[Hg] University of pressure 12:32:00 [facility] Diastolic blood 2019-02-15 76 mm[Hg] University o f pressure 12:32:00 [facility] Body temperature 2019-02-15 36.94 Erica University of 12:32:00 [facility] Body weight 2019-02-15 83.915 kg University of 00:33:00 [facility] BMI 2019-02-15 29.86 kg/m2 University of 00:33:00 [facility] Heart rate 2019-02-15 81 /min University of 12:38:00 [facility] Respiratory rate 2019-02-15 20 /min University of 12:38:00 [facility] Oxygen saturation 2019-02-15 99 /min University of in Arterial blood 12:38:00 [facility] by Pulse oximetry Branch Systolic blood 2019-02-15 125 mm[Hg] University of pressure 12:32:00 [facility] Diastolic blood 2019-02-15 76 mm[Hg] University o f pressure 12:32:00 [facility] Body temperature 2019-02-15 36.94 Erica University of 12:32:00 [facility] Body weight 2019-02-15 83.915 kg University of 00:33:00 [facility] BMI 2019-02-15 29.86 kg/m2 University of 00:33:00 [facility] Systolic blood 2019-02-15 151 mm[Hg] University of pressure 00:40:00 [facility] Diastolic blood 2019-02-15 94 mm[Hg] University o f pressure 00:40:00 [facility] Heart rate 2019-02-15 96 /min University of 00:40:00 [facility] Body temperature 2019-02-15 36.89 Erica University of 00:40:00 [facility] Respiratory rate 2019-02-15 18 /min University of 00:40:00 [facility] Body height 2019-02-15 167.6 cm University of 00:40:00 [facility] Body weight 2019-02-15 84.086 kg University of 00:40:00 [facility] BMI 2019-02-15 29.92 kg/m2 University of 00:40:00 [facility] Oxygen saturation 2019-02-15 96 /min University of in Arterial blood 00:40:00 [facility] by Pulse oximetry Branch Systolic blood 2019-02-15 151 mm[Hg] University of pressure 00:40:00 [facility] Diastolic blood 2019-02-15 94 mm[Hg] University o f pressure 00:40:00 [facility] Heart rate 2019-02-15 96 /min University of 00:40:00 [facility] Body temperature 2019-02-15 36.89 Erica University of 00:40:00 [facility] Respiratory rate 2019-02-15 18 /min University of 00:40:00 [facility] Body height 2019-02-15 167.6 cm University of 00:40:00 [facility] Body weight 2019-02-15 84.086 kg University of 00:40:00 [facility] BMI 2019-02-15 29.92 kg/m2 [facility] 00:40:00 [facility] Oxygen saturation 2019-02-15 96 /min University of in Arterial blood 00:40:00 [facility] corby by Pulse oximetry Branch Systolic blood 2019-01-31 136 mm[Hg] University of pressure 16:33:00 [facility] Diastolic blood 2019-01-31 76 mm[Hg] University o f pressure 16:33:00 [facility] Heart rate 2019-01-31 84 /min University of 16:33:00 [facility] Body temperature 2019-01-31 36.17 Erica University of 16:33:00 [facility] Respiratory rate 2019-01-31 17 /min University of 16:33:00 [facility] Body height 2019-01-31 167.6 cm University of 16:33:00 [facility] Body weight 2019-01-31 85.276 kg University of 16:33:00 [facility] BMI 2019-01-31 30.34 kg/m2 University of 16:33:00 [facility] Oxygen saturation 2019-01-31 97 /min University of in Arterial blood 16:33:00 [facility] by Pulse oximetry Branch Systolic blood 2019-01-31 136 mm[Hg] University of pressure 16:33:00 [facility] Diastolic blood 2019-01-31 76 mm[Hg] University o f pressure 16:33:00 [facility] Heart rate 2019-01-31 84 /min University of 16:33:00 [facility] Body temperature 2019-01-31 36.17 Erica University of 16:33:00 [facility] Respiratory rate 2019-01-31 17 /min University of 16:33:00 [facility] Body height 2019-01-31 167.6 cm University of 16:33:00 [facility] Body weight 2019-01-31 85.276 kg University of 16:33:00 [facility] BMI 2019-01-31 30.34 kg/m2 University of 16:33:00 [facility] Oxygen saturation 2019-01-31 97 /min University of in Arterial blood 16:33:00 [facility] corby by Pulse oximetry Branch Systolic (mm Hg) 2022-03-13 [facility] Andrea rmann 18:17:00 Diastolic (mm Hg) 2022-03-13 [facility] H ermann 18:17:00 Heart Rate 2022-03-13 Danielle Han n 18:17:00 Height 2022-03-13 5 [ft_i] [facility] [...] Herm benedicto 18:11:00 Systolic (mm Hg) 2021-06-07 [facility] He rmann 16:24:00 Diastolic (mm Hg) 2021-06-07 [facility] ermann 16:24:00 Heart Rate 2021-06-07 [facility] n 16:24:00 Respitory Rate 2021-06-07 [facility] benedicto 16:24:00 Height 2021-06-07 165.1 cm [facility] n 16:24:00 Weight 2021-06-07 [facility] 16:24:00 BMI Calculated 2021-06-07 [facility] ben[facility]icto 16:24:00 Systolic (mm Hg) 2021-02-08 [facility] He rmann 19:28:00 Diastolic (mm Hg) 2021-02-08 [facility] H ermann 19:28:00 Heart Rate 2021-02-08 [facility] n 19:28:00 Respitory Rate 2021-02-08 [facility] benedicto 19:28:00 Height 2021-02-08 162.56 cm [facility] 19:28:00 Weight 2021-02-08 [facility] 19:28:00 BMI Calculated 2021-02-08 [facility] ben[facility]icto 19:28:00 Systolic (mm Hg) 2021-01-18 [facility] rmann 16:07:00 Diastolic (mm Hg) 2021-01-18 [facility] H ermann 16:07:00 Heart Rate 2021-01-18 [facility] n 16:07:00 Respitory Rate 2021-01-18 [facility] benedicto 16:07:00 Height 2021-01-18 162.56 cm [facility] n 16:07:00 Weight 2021-01-18 [facility] [...] Herm benedicto 14:45:00 Height 2019-04-02 167.64 cm [facility] 14:35:00 Weight 2019-04-02 [facility] 14:35:00 BMI Calculated 2019-04-02 [facility] ben[facility]icto 14:35:00 Systolic (mm Hg) 2018-07-03 [facility] Andrea rmann 15:46:00 Diastolic (mm Hg) 2018-07-03 [facility] ermann 15:46:00 Heart Rate 2018-07-03 [facility] 15:46:00 Height 2018-07-03 165.1 cm [facility] 15:46:00 Weight 2018-07-03 [facility] 15:46:00 BMI Calculated 2018-07-03 [facility] ben[facility]icto 15:46:00 Procedures Procedure Date / Time Performing Source Performed Clinician POCT GLUCOSE (AUTOMATED) 2022-12-03 Radha Palomares [facility] 16:32:00 [facility] POCT GLUCOSE (AUTOMATED) 2022-12-03 Radha Palomares [facility] 13:46:00 Medical Branch PHOSPHORUS 2022-12-03 [facility] xas 09:54:00 [facility] MAGNESIUM 2022-12-03 [facility] xas 09:54:00 [facility] HEPATIC FUNCTION PANEL 2022-12-03 [facility] ([id number]) (ALB,T.PRO,BILI 09:54:00 [facility] T,BU/BC,ALT,AST,ALK PHOS) BASIC METABOLIC PANEL (NA, K, 2022-12-03 Nikko Rosario [facility] CL, CO2, GLUCOSE, BUN, 09:54:00 Medical B ran CREATININE, CA) CORTISOL PM SERUM 2022-12-03 Marielle [facility] 03:45:00 Medical Branch TROPONIN I 2022-12-03 Abraham [facility] xas 03:45:00 Medical Branch CBC WITH DIFF 2022-12-[facility] 03:45:00 Medical Branch VITAMIN D, 25-OH 2022-12-03 [facility] exas 03:45:00 Medical [facility] POCT GLUCOSE (AUTOMATED) 2022-12-03 Radha Palomares [facility] 01:20:00 [facility] LACTIC ACID WHOLE BLOOD 2022-12-02 [facility] 23:20:[address] ANGIOGRAM HEAD 2022-12-02 [facility] 21:19:00 [facility] CT ANGIOGRAM NECK 2022-12-02 [facility] 21:19:00 [facility] CT HEAD WO CONTRAST 2022-12-02 [facility] 21:06:00 [facility] URINALYSIS 2022-12-02 [facility] 19:33:00 Medical [facility] LIPASE 2022-12-02 [facility] 19:25:00 [facility] FERRITIN SERUM 2022-12-02 [facility] 19:25:00 [facility] TROPONIN I 2022-12-02 [facility] 19:25:00 [facility] FREE T4 2022-12-02 Marielle [facility] xa 19:25:00 [facility] THYROID STIMULATING HORMONE 2022-12-02 Manor[facility] 19:25:00 [facility] COMP. METABOLIC PANEL ([id number]) 2022-12-02 [facility] 19:25:00 [facility] IRON PANEL 2022-12-02 [facility] x[facility] 19:25:00 Medical [facility] CBC WITH DIFF 2022-12-02 Arleth Muñoz [facility] 19:25:00 Medical Branch PROTHROMBIN TIME / INR 2022-12-02 Arlteh Muñoz [facility] 19:25:00 Medical Branch ACTIVATED PARTIAL THRMPLAS 2022-12-02 [facility] 19:25:00 [facility] N-TERMINAL PRO-BNP 2022-12-02 [facility] 19:25[facility] FREE T3 2022-12-02 Marielle [facility] [place] 19:25:00 [facility] HB ECG ROUTINE & RHYTHM STRIP 2022-12-02 [facility] 19:21:59 [facility] POCT GLUCOSE (AUTOMATED) 2022-12-02 Arelth Muñoz [facility] 18:59:00 Medical Branch POCT GLUCOSE (AUTOMATED) 2022-11-05 [facility] 16:07:00 Medical Branch POCT GLUCOSE (AUTOMATED) 2022-11-05 [facility] 12:43:00 Medical [facility] POCT GLUCOSE (AUTOMATED) 2022-11-05 [facility] 00:53:00 [facility] POCT GLUCOSE (AUTOMATED) 2022-11-04 [facility] 22:35:00 [facility] POCT GLUCOSE (AUTOMATED) 2022-11-04 [facility] 16:57:00 [facility] MR BRAIN W WO CONTRAST 2022-11-04 [facility] [facility] POCT GLUCOSE (AUTOMATED) 2022-11-04 [facility] 12:49:00 Medical Branch AMMONIA, PLASMA 2022-11-04 [facility] 10:38:00 [facility] POCT GLUCOSE (AUTOMATED) 2022-11-04 [facility] 01:02:00 [facility] POCT GLUCOSE (AUTOMATED) 2022-11-03 [facility] 22:07:00 [facility] POCT GLUCOSE (AUTOMATED) 2022-11-03 [facility] 17:07:00 [facility] POCT GLUCOSE (AUTOMATED) 2022-11-03 [facility] 13:18:00 [facility] POCT GLUCOSE (AUTOMATED) 2022-11-03 [facility] 02:34:00 [facility] POCT GLUCOSE (AUTOMATED) 2022-11-02 [facility] 23:02:00 Medical Branch POCT GLUCOSE (AUTOMATED) 2022-11-02 [facility] 17:18:00 [facility] POCT GLUCOSE (AUTOMATED) 2022-11-02 [facility] 15:10:00 [facility] URINE CULTURE 2022-11-02 [facility] 11[facility]21:00 [facility] ELECTROENCEPHALOGRAM 2022-11-02 [facility] URINE DRUG (IMMUNOASSAY) - 2022-11-01 Misael Cheema [facility] COMPREHENSIVE DRUG SCREEN 20:21:00 [facility] URINALYSIS 2022-11-01 Misael Cheema [facility] 20:21:00 [facility] CT ANGIOGRAM HEAD 2022-11-01 Misael Cheema [facility] 20:00:00 [facility] CT ANGIOGRAM NECK 2022-11-01 Misael Cheema [facility] 20:00:00 [facility] CT CERVICAL SPINE WO CONTRAST 2022-11-01 Misael Cheema [facility] 19:59:[address] HEAD WO CONTRAST 2022-11-01 Misael Cheema [facility] 19:59:00 [facility] POCT GLUCOSE (AUTOMATED) 2022-11-01 Misael Cheema [facility] 19:24:00 [facility] CREATINE KINASE 2022-11-01 Misael Cheema [facility] xa 19:21:00 [facility] TROPONIN I 2022-11-01 Misael Cheema [facility] 19:21:00 [facility] HEPATIC FUNCTION PANEL 2022-11-01 [facility] ([id number]) (ALB,T.PRO,BILI 19:21:00 Medical Branch T,BU/BC,ALT,AST,ALK PHOS) COMP. METABOLIC PANEL ([id number]) 2022-11-01 Misael Cheema [facility] 19:21:00 [facility] IRON PANEL 2022-11-01 [facility] 19:21:00 [facility] ETHANOL 2022-11-01 Misael Cheema [facility] 19:21:00 Medical Branch CBC WITH DIFF 2022-11-01 Misael Cheema [facility] 19:21:00 [facility] GLYCOSYLATED HEMOGLOBIN (A1C) 2022-11-01 Shannan Murray [facility] 19:21:00 [facility] HOSPITAL ADMISSION 2022-11-01 Doctor Unassigned, [facility] 05:01:00 [place] [facility] EKG-12 LEAD 2022-09-08 Marcial Vaughan [facility] exas 07:48:44 Medical Branch XR STROKE CHEST 1 VW 2022-09-08 Marcial Vaughan [facility] 06:25:23 [facility] URINALYSIS 2022-09-08 [facility] 06:21:00 [facility] CT STROKE ANGIOGRAM HEAD 2022-09-08 Marcial Vaughan [facility] 06:11:[address] STROKE ANGIOGRAM NECK 2022-09-08 Marcial Vaughan [facility] 06:11:00 [facility] TROPONIN I 2022-09-08 Marcial Vaughan [facility] 05:45:00 [facility] BASIC METABOLIC PANEL (NA, K, 2022-09-08 Marcial Vaughan [facility] CL, CO2, GLUCOSE, BUN, 05:45:00 [facility] ran CREATININE, CA) CBC WITHOUT DIFF 2022-09-08 Marcial Vaughan [facility] 05:45:00 Medical Branch PROTHROMBIN TIME / INR 2022-09-08 Marcial Vaughan [facility] 05:45:00 Medical Branch ACTIVATED PARTIAL THRMPLAS 2022-09-08 Marcial Vaughan [facility] LISSETH 05:45:00 Medical Branch COVID-19 (ID NOW RAPID 2022-09-08 Marcial Vaughan [facility] TESTING) 05:45:00 Medical Branch POCT GLUCOSE (AUTOMATED) 2022-09-08 [facility] 05:40:00 [facility] POWER OF INJECTION MOLDING PROCESS TECHNICIAN 2022-01-30 Doctor Unassigned, [facility] 05:01:00 [place] [facility] POCT GLUCOSE (AUTOMATED) 2022-01-16 [facility] 17:46:00 Medical Branch POCT GLUCOSE (AUTOMATED) 2022-01-16 [facility] 13:53:00 [facility] URINALYSIS 2022-01-16 Madhavi Bryan [facility] 09:18:00 [facility] URINE DRUG (IMMUNOASSAY) - 2022-01-16 [facility] 09:17:00 Medica l Branch MAGNESIUM 2022-01-16 [facility] xa 09:14:00 [facility] VITAMIN B12, LEVEL 2022-01-16 [facility]:14[facility]00 [facility] BASIC METABOLIC PANEL (NA, K, 2022-01-16 [facility] CL, CO2, GLUCOSE, BUN, 09:14:00 [facility] ran CREATININE, CA) LIPID PANEL ([id number])(TOTAL 2022-01-16 Mondragon [facility] CHOLESTEROL, TRIGLYCERIDES, 09:14:00 [facility] HDL) POCT GLUCOSE (AUTOMATED) 2022-01-16 [facility] 01:25:00 Medical Branch MR STROKE BRAIN WO CONTRAST 2022-01-16 Giancarlo [facility] 00:30:17 [facility] URINE CULTURE 2022-01-15 [facility] 21:[facility] [facility] [facility] STROKE ANGIOGRAM HEAD 2022-01-15 Madhavi Bryan [facility] 17:16:38 [facility] CT STROKE ANGIOGRAM NECK 2022-01-15 Madhavi Bryan [facility] 17:16:[address] STROKE PERFUSION W 2022-01-15 Madhavi Bryan [facility] CONTRAST 17:16:[address] STROKE HEAD WO CONTRAST 2022-01-15 Madhavi Bryan [facility] 17:02:00 Medical Branch MAGNESIUM 2022-01-15 Giancarlo [facility] [place] 16:43:00 Medical Branch TROPONIN I 2022-01-15 Madhavi Bryan [facility] 16:43:00 Medical Branch THYROID STIMULATING HORMONE 2022-01-15 [facility] Medical Branch HEPATIC FUNCTION PANEL 2022-01-15 [id number] (ALB,T.PRO,BILI 16:43:00 Medical Branch T,BU/BC,ALT,AST,ALK PHOS) BASIC METABOLIC PANEL (NA, K, 2022-01-15 Madhavi Bryan [facility] CL, CO2, GLUCOSE, BUN, 16:43:00 [facility] ranch CREATININE, CA) CBC WITHOUT DIFF 2022-01-15 Madhavi Bryan [facility] 16:43:00 Medical Branch GLYCOSYLATED HEMOGLOBIN (A1C) 2022-01-15 Ofelia Mondragon [facility] 16:43:00 Medical Branch PROTHROMBIN TIME / INR 2022-01-15 Madhavi Bryan [facility] 16:43:00 Medical Branch ACTIVATED PARTIAL THRMPLAS 2022-01-15 Madhavi Bryan [facility] LISSETH 16:43:00 Medical Branch COVID-19 (ID NOW RAPID 2022-01-15 Madhavi Bryan [facility] TESTING) 16:43:00 Medical Branch LAB ONLY COVID INTERPRETATION 2022-01-15 Madhavi Bryan [facility] 16:43:00 Medical Branch HB ECG ROUTINE & RHYTHM STRIP 2022-01-15 Madhavi Bryan [facility] 16:37:15 [facility] Branch POCT GLUCOSE (AUTOMATED) 2022-01-15 Madhavi Bryan [facility] 16:37:00 Medical Branch HOSPITAL ADMISSION 2022-01-15 Doctor Unassigned, [facility] 05:01:00 [place] [facility] POWER OF INJECTION MOLDING PROCESS TECHNICIAN 2021-10-10 Doctor Unassigned, [facility] 05:01:00 [place] [facility] POCT GLUCOSE (AUTOMATED) 2021-09-23 VinaynmSun [facility] 16:16:00 Medical Branch TRANSTHORACIC ECHO (TTE) 2021-09-23 Vinaynmoanh [facility] COMPLETE W/ CONTRAST 15:51:47 Medical [facility] POCT GLUCOSE (AUTOMATED) 2021-09-23 [facility] 12:18:00 Medical Branch POCT GLUCOSE (AUTOMATED) 2021-09-23 [facility] 01:31:00 Medical Branch POCT GLUCOSE (AUTOMATED) 2021-09-22 [facility] 21:09:00 Medical Branch POCT GLUCOSE (AUTOMATED) 2021-09-22 Quan Darian [facility] 16:30:00 Medical Jet DUPLEX VENOUS LEGS BILATERAL 2021-09-22 VinaygertrudisoanhSunFan[facility] - BY VASCULAR LAB 15:23:[address] CHEST PULMONARY ANGIOGRAM 2021-09-22 Darian Glass [facility] 10:43:00 [facility] TROPONIN I 2021-09-22 Darian Glass [facility] [place] 10:09:00 [facility] COMP. METABOLIC PANEL ([id number]) 2021-09-22 Darian Glass [facility] 10:09:00 [facility] N-TERMINAL PRO-BNP 2021-09-22 [facility]00 [facility] HB ECG ROUTINE & RHYTHM STRIP 2021-09-22 Darian Glass [facility] 09:42:38 [facility] CBC WITH DIFF 2021-09-22 Darian Glass [facility] [place] 09:34:00 Medical Branch PROTHROMBIN TIME / INR 2021-09-22 Darian Glass [facility] 09:34:00 Medical Branch ACTIVATED PARTIAL THRMPLAS 2021-09-22 Darian Glass [facility] LISSETH 09:34:00 Medical Branch XR CHEST 1 VW 2021-09-22 Darian Glass [facility] [place] 09:26:09 Medical Jet NOTICE OF PRIVACY PRACTICES 2021-09-22 Doctor Unassigned, [facility] 08:51:55 [place] [facility] CONSENT/REFUSAL FOR DIAGNOSIS 2021-09-22 Doctor Unassigned, [facility] AND TREATMENT 08:49:29 [place] [facility] XR CHEST 1 VW 2021-04-29 Madhavi Bryan [facility] 16:12:54 Medical Branch XR FOOT 3+ VW LEFT 2021-04-29 Madhavi Bryan [facility] 16:12:[address] TRAUMA HEAD WO CONTRAST 2021-04-29 [facility] 16:01[facility] TRAUMA CERVICAL SPINE WO 2021-04-29 Madhavi Bryan [facility] CONTRAST 16:01:35 Medical Branch NOTICE OF PRIVACY PRACTICES 2021-04-29 Doctor Unassigned, [facility] 15:17:27 [place] [facility] NOTICE OF PRIVACY PRACTICES 2021-04-29 Doctor Unassigned, [facility] 15:17:01 [place] [facility] CONSENT/REFUSAL FOR DIAGNOSIS 2021-04-29 Doctor Unassigned, [facility] AND TREATMENT 15:16:10 [place] [facility] PATIENT QUESTIONNAIRE 2021-02-14 Doctor Unasslita, [facility] 05:01:00 [place] [facility] POCT GLUCOSE (AUTOMATED) 2021-01-24 [facility] 16:23:00 Medical Branch POCT GLUCOSE (AUTOMATED) 2021-01-24 [facility] 12:34:00 Medical Branch URINALYSIS 2021-01-24 Abhishek Arevalo [facility] x[facility] 12:21:00 Medical Branch CBC WITH DIFF 2021-01-24 [facility] 08:13:00 [facility] GLYCOSYLATED HEMOGLOBIN (A1C) 2021-01-24 [facility] 08:13:00 [facility] Branch BASIC METABOLIC PANEL (NA, K, 2021-01-24 [facility] CL, CO2, GLUCOSE, BUN, 08:02:00 Medical B ranch CREATININE, CA) POCT GLUCOSE (AUTOMATED) 2021-01-24 [facility] 01:20:00 Medical Branch POCT GLUCOSE (AUTOMATED) 2021-01-23 [facility] 21:27:00 Medical Branch POCT GLUCOSE (AUTOMATED) 2021-01-23 [facility] 16:35:00 Medical Branch CAROTID DUPLEX BILATERAL - BY 2021-01-23 [facility] VASCULAR LAB 15:19:00 Medical Branch TRANSTHORACIC ECHO (TTE) 2021-01-23 Carmen Brennan [facility] COMPLETE 14:50:21 Medical Branch MR BRAIN WO CONTRAST 2021-01-23 Marielle [facility] 14:06:16 Medical Jet POCT GLUCOSE (AUTOMATED) 2021-01-23 [facility] 12:39:00 Medical Branch BASIC METABOLIC PANEL (NA, K, 2021-01-23 Carmen Brennan a [facility] CL, CO2, GLUCOSE, BUN, 08:53:00 Medical B ranch CREATININE, CA) CBC WITH DIFF 2021-01-23 Carmen Brennan [facility] 08:53:00 Medical Branch POCT GLUCOSE (AUTOMATED) 2021-01-23 [facility] 01:25:00 Medical Branch POCT GLUCOSE (AUTOMATED) 2021-01-22 [facility] 21:35:00 Medical Branch POCT GLUCOSE (AUTOMATED) 2021-01-22 [facility] 17:15:00 Medical Branch POCT GLUCOSE (AUTOMATED) 2021-01-22 [facility] 12:33:00 Medical Branch BASIC METABOLIC PANEL (NA, K, 2021-01-22 [facility] CL, CO2, GLUCOSE, BUN, 08:48:00 Medical B ranch CREATININE, CA) CBC WITH DIFF 2021-01-22 [facility] xa 08:48:00 Medical Branch POCT GLUCOSE (AUTOMATED) 2021-01-22 [facility] 01:06:00 Medical Branch POCT GLUCOSE (AUTOMATED) 2021-01-21 [facility] 22:01:00 Medical Branch XR CHEST 1 VW 2021-01-21 Carmen Brennan [facility] 21:22:59 Medical Branch POCT GLUCOSE (AUTOMATED) 2021-01-21 [facility] 20:54:00 Medical Branch POCT GLUCOSE (AUTOMATED) 2021-01-21 [facility] 20:48:00 Medical Branch POCT GLUCOSE (AUTOMATED) 2021-01-21 [facility] 16:35:[address] ANGIOGRAM HEAD 2021-01-21 [facility] 15:38:[address] ANGIOGRAM NECK 2021-01-21 [facility] 15:38:50 Medical Branch POCT GLUCOSE (AUTOMATED) 2021-01-21 [facility] 13:16:00 Medical Branch THYROID STIMULATING HORMONE 2021-01-21 [facility] 11:25:00 Medical Branch BASIC METABOLIC PANEL (NA, K, 2021-01-21 Carmen Brennan oanh [facility] CL, CO2, GLUCOSE, BUN, 11:25:00 [facility] B [facility] CREATININE, CA) LACTIC ACID WHOLE BLOOD 2021-01-21 Singer Sergey [facility] 08:56:[address] ABDOMEN PELVIS W CONTRAST 2021-01-21 Marcial Vaughan [facility] 00:43:39 Medical Branch XR CHEST 1 VW 2021-01-21 [facility] 00:03[facility] HEAD WO CONTRAST 2021-01-20 Singer [facility] 23:13:11 Medical Branch URINALYSIS 2021-01-20 [facility] [place] 22:49:00 Medical Branch COVID-19 (ID NOW RAPID 2021-01-20 [facility] TEST[facility]) 22:44:00 Medical Branch LAB ONLY COVID INTERPRETATION 2021-01-20 Sergey Chapin [facility] 22:44:00 Medical Branch TROPONIN I 2021-01-20 [facility] 22:17[facility]00 Medical Branch COMP. METABOLIC PANEL ([id number]) 2021-01-20 Mumtaz [facility] [place] 22:17:00 Medical Branch CBC WITH DIFF 2021-01-20 Singer [facility] [place] 22:17:00 Medical Branch LACTIC ACID WHOLE BLOOD 2021-01-20 Mumtaz Chapinip [facility] 22:08:00 Medical Branch ED SPLINT APPLICATION 2020-02-14 Jayne Lipscomb [facility] 21:02:00 Medical Branch XR FOOT 3+ VW RIGHT 2020-02-14 Jayne Lipscomb [facility] [place] 20:06:52 Medical Branch NOTICE OF PRIVACY PRACTICES 2020-02-14 Doctor Unassigned, [facility] 19:17:32 [place] [facility] CONSENT/REFUSAL FOR DIAGNOSIS 2020-02-14 Doctor Unassigned, [facility] AND TREATMENT 19:17:05 [place] [facility] COMP. METABOLIC PANEL (05341) 2019-09-20 [facility] 19:05:00 Medical Branch URINALYSIS 2019-09-20 Jayne Lipscomb [facility] xa 19:05:00 Medical Branch CBC WITH DIFFERENTIAL 2019-09-20 Jayne Lipscmob [facility] 19:05:00 Medical Branch CORONAVIRUS COVID-19 TESTING 2019-09-20 Jayne Lipscomb [facility] [place] 19:05:00 Medical Branch XR CHEST 1 VW COVID 2019-09-20 Jayne Lipscomb [facility] [place] 18:27:24 Medical Branch POCT GLUCOSE (AUTOMATED) 2019-02-15 Tod Singh [facility] 12:32:00 Medical Branch URINALYSIS 2019-02-15 Darian Glass [facility] xa 04:09:[address] CHEST PULMONARY ANGIOGRAM 2019-02-15 Casa Rivera [facility] [place] 02:31:13 Medical Branch TROPONIN I 2019-02-15 Casa Rivera [facility] 01:14:00 Medical Branch COMP. METABOLIC PANEL (30346) 2019-02-15 Casa [facility] [place] 01:14:00 Medical Branch CBC WITH DIFFERENTIAL 2019-02-15 Casa Rivera [facility] 01:14:00 Medical Branch PROTHROMBIN TIME / INR 2019-02-15 Casa Rivera [facility] 01:14:00 Medical Branch ACTIVATED PARTIAL THRMPLAS 2019-02-15 Casa Rivera [facility] L[facility] 01:14:00 Medical Branch N-TERMINAL PRO-BNP 2019-02-15 Casa Rivera [facility] 01:14:00 Medical Branch EKG-12 LEAD 2019-02-15 Casa Rivera [facility] [place] 00:52:44 Medical Branch CONSENT/REFUSAL FOR DIAGNOSIS 2019-02-15 Doctor Unassigned, [facility] AND TREATMENT 00:29:32 [place] [facility] NOTICE OF BILLING PRACTICES 2019-01-31 Doctor Unassigned, [facility] FOR MEDICARE PATIENTS 16:25:34 [place] [facility] Stent placement [facility] Plan of Care Planned Activity Planned Date Details Comments Source Future Scheduled 2022-12-13 Screening for [facility] Test 14:58:31 malignant neoplasm of colon (procedure) [code = 187316518] Future Scheduled 2022-12-13 Screening for [facility] Test 14:58:31 malignant neoplasm of colon (procedure) [code = 394848048] Future Scheduled 2022-12-13 Screening [facility] Test 14:58:31 malignant neoplasm of colon (procedure) [code = 537682057] Future Scheduled 2022-12-13 Hepatitis C screening [facility] Test 14:58:31 (procedure) [code = 253459235] Future Scheduled 2022-12-13 BREAST CANCER [facility] Test 14:58:31 SCREENING [code = BREAST CANCER SCREENING] Future Scheduled 2022-12-13 Screening for [facility] Test 14:58:31 malignant neoplasm of colon (procedure) [code = 241511897] Future Scheduled 2022-12-13 Screening for [facility] Test 14:58:31 malignant neoplasm of colon (procedure) [code = 265694555] Future Scheduled 2022-12-13 SHINGLES VACCINES (1 [facility] Test 14:58:31 of 2) [code = SHINGLES VACCINES (1 of 2)] Future Scheduled 2022-12-13 65+ PNEUMOCOCCAL [facility] Test 14:58:31 VACCINE (2 - PPSV23 if available, else PCV20) [code = 65+ PNEUMOCOCCAL VACCINE (2 - PPSV23 if available, else PCV20)] Future Scheduled 2022-12-13 COVID-19 VACCINE (4 - [facility] Test 14:58:31 Moderna series) [code = COVID-19 VACCINE (4 - Moderna series)] Future Scheduled 2022-12-13 INFLUENZA VACCINE [facility] Test 14:58:31 [code = INFLUENZA VACCINE] Future Scheduled 2022-12-03 COVID-19 VACCINE (4 - [facility] Test 20:48:00 Moderna series) [code = COVID-19 VACCINE (4 - Moderna series)] Future Scheduled 2022-12-03 INFLUENZA VACCINE [facility] Test 20:48:00 [code = INFLUENZA VACCINE] Future Scheduled 2022-12-03 Screening for [facility] Test 20:48:00 malignant neoplasm of colon (procedure) [code = 783643168] Future Scheduled 2022-12-03 Screening for [facility] Test 20:48:00 malignant neoplasm of colon (procedure) [code = 302066820] Future Scheduled 2022-12-03 Screening for [facility] Test 20:48:00 malignant neoplasm of colon (procedure) [code = 091532982] Future Scheduled 2022-12-03 Hepatitis C screening [facility] Test 20:48:00 (procedure) [code = 645782993] Future Scheduled 2022-12-03 BREAST CANCER [facility] Test 20:48:00 SCREENING [code = BREAST CANCER SCREENING] Future Scheduled 2022-12-03 Screening for [facility] Test 20:48:00 malignant neoplasm of colon (procedure) [code = 008606007] Future Scheduled 2022-12-03 Screening for [facility] Test 20:48:00 malignant neoplasm of colon (procedure) [code = 303979531] Future Scheduled 2022-12-03 SHINGLES VACCINES (1 [facility] Test 20:48:00 of 2) [code = SHINGLES VACCINES (1 of 2)] Future Scheduled 2022-12-03 65+ [facility]CCAL [facility] Test 20:48:00 VACCINE (2 - PPSV23 if available, else PCV20) [code = 65+ PNEUMOCOCCAL VACCINE (2 - PPSV23 if available, else PCV20)] Encounters Start End Encounter Admission Attending Care Care Encounter Source Date/Time Date/Time Type Type Clinicians Facility Department ID 2021-03-31 Emergency [facility] [id number] Univers 17:15:00 ity of [facility] 2019-08-06 Inpatient Dell Monroe [facility] JEANINE [id number] 14:29:00 Dell Monroe [facility] 2022-12-05 2022-12-05 Transition MARGARETTE Vance 1.2.840.114 [id number] Univers 00:00:00 00:00:00 of Care Nurys GONZALEZ 350.1.13.10 [place] [id number] [facility] 403 Branch 2022-12-02 2022-12-03 Outpatient X MARIELLE [facility] [id number] Univers 13:56:00 15:40:00 RADHA corona [facility] 2022-12-02 2022-12-03 Emergency Arleth Muñoz [facility] 1.2. 840.114 [id number] Univers 13:56:00 15:40:00 Radha Palomares 350.1.13.10 ity of [place] [facility]7.2.[address] [facility] [id number] [facility] 080 Branch 2022-11-20 2022-11-20 Outpatient SANTOSH CURTIS [facility] [id number] Univers 10:00:00 10:00:00 SANTOSH GARZA ithanna of [facility] 2022-11-06 2022-11-06 Transition Vance CHRISArabella 1.2.840.114 [id number] Univers 00:00:00 00:00:00 of Care Nurys GONZALE[place] 350.1.13.10 [place] [id number] [facility] 403 Branch 2022-11-01 2022-11-05 Inpatient U ADAM [facility] CELINA [id number] Univers 13:57:00 17:48:00 CHITYREL ity o f [facility] 2022-11-01 2022-11-05 [facility] Misael Cheema 1.2.840.11 [id number] Univers 13:57:00 17:48:00 Encounter Matt Edwards 350.1.13.10 ity of [facility] 4.2.7.2.686 [place] [id number] [facility] 098 Branch 2022-10-08 2022-10-08 Care Christin King 2.16.840. 2.16.840.1. [id number] [facility] 14:30:00 15:00:00 [employer] 1.600487. 416160.4.6. R8G Medical 4.6.20171 [id number] 2022-10-06 2022-10-06 Outpatient hpham29 [place] [id number] [facility] 00:00:00 00:00:00 0506 Medica l Group 2022-09-11 2022-09-11 Care Andreia Buckley 2.16.840. 2.16.840.1. C [id number] [facility] 13:30:00 14:00:00 [employer] 1.022959. 621916.4.6. W9H Medical 4.6.87556 [id number] 2022-09-08 2022-09-08 Emergency X [facility] ERT [id number] Univers 00:46:00 05:02:00 [facility] ity [facility] 2022-09-08 2022-09-08 [facility] 1.2.787.084 [id number] Univers 00:46:00 05:02:00 [facility] 350.1.13.10 ity [facility] 4.2.7.2.686 [facility] [id number] [facility] 084 Branch 2022-09-07 2022-09-07 Outpatient [facility] [id number] [place] 15:55:13 15:55:13 32514 F Harish 2022-08-29 2022-08-29 IHC Larisa 2.16.840. 2.16.840.1. CLAC [id number] [facility] 17:30:00 18:00:00 Graduation [facility] 1.232934. 640491.4.6. F5F Medical 4.6.24023 [id number] 94932 2022-07-05 2022-07-05 Ambulatory MHIE MNA [id number] Memoria 16:30:00 16:30:00 Pre-Reg Neurology 19 l [place] 2022-07-05 2022-07-05 Ambulatory MHIE MNA [id number] Memoria 16:30:00 16:30:00 Pre-Reg Neurology 19 l [place] 2022-07-05 2022-07-05 Outpatient MHIE MHIE [id number] Memoria 10:30:00 10:30:00 19 [place] 2022-07-05 2022-07-05 Outpatient [facility] [id number] 10:30:00 10:30:00 Piotr Kang Baker 2022-06-11 2022-06-11 IHC Follow Larisa 2.16.840. 2.16.840.1. C [id number] [facility] 15:30:00 16:30:00 Up [place] 1.419055. 800612.4.6. G8J Medical 4.6.01137 [id number] 2022-05-18 2022-05-18 CAV Nimesh Parra 2.16.840. 2.16.840.1. CLA MAPT0BQ [facility] 20:00:00 21:00:00 1.609744. 098486.4.6. 2J8 Medical 4.6.68267 [id number] 93540 2022-04-20 2022-04-20 IHC Follow Nimesh Parra 2.16.840. 2.16.840.1. [id number] [facility] 19:30:00 20:00:00 Up 1.824380. 112453.4.6. EZ2 Medical 4.6.45933 [id number] 2022-04-03 2022-04-03 IHC Follow Nimesh Parra 2.16.840. 2.16.840.1. [id number] [facility] 18:30:00 19:00:00 Up 1.022875. 186702.4.6. 487 Medical 4.6.50105 [id number] 2022-03-26 2022-03-26 Outpatient Maggie BRUSH [facility] [id number] [facility] 10:30:00 10:30:00 VERNA corona [facility] 2022-03-13 2022-03-14 Outpatient nullFlavo MNA [id number] Memoria 18:15:00 04:59:59 r Neurology 18 l [place] 2022-03-13 2022-03-14 Outpatient nullFlavo MNA [id number] Memoria 18:15:00 04:59:59 r Neurology 18 l [place] 2022-03-13 2022-03-13 Outpatient Joselo, MHMISCHER MHMISCHER [id number] 13:15:00 23:59:59 Piotr 18 Samuel 2022-03-13 2022-03-13 Outpatient MHIE MHIE [id number] Memoria 13:15:00 13:15:00 18 l Yong 2022-03-08 2022-03-08 IHC Follow Nimesh Parra 2.16.840. 2.16.840.1. [id number] [facility] 14:30:00 15:30:00 1.446464. 295218.4.6. [facility] 4.6.78193 [id number] 2022-01-30 2022-01-30 Telephone SARA Tavares 1.2.840.114 [id number] Univers 00:00:00 00:00:00 Coretta SIMPSON 350.1.13.10 i ty of HOSPITAL 4.2.7.2.686 [place] as [id number] [facility] 025 Jet 2022-01-30 2022-01-30 Orders Doctor SARA 1.2.840.114 [id number] Univers 00:00:00 00:00:00 Only Unassigned, CALVIN 350.1.13.10 ity of [place] [facility] 4.2.7.2.686 [place] as [id number] [facility] 009 Branch 2022-01-25 2022-01-25 Telephone SARA Tavares 1.2.840.114 [id number] Univers 00:00:00 00:00:00 Coretta SIMPSON 350.1.13.10 i ty of HOSPITAL 4.2.7.2.686 [place] as [id number] [address] 2022-01-22 2022-01-23 Outpatient nullFlavo MNA [id number] Memoria 18:00:00 04:59:59 r Neurology 17 l [place] 2022-01-22 2022-01-23 Outpatient nullFlavo MNA [id number] Memoria 18:00:00 04:59:59 r Neurology 17 l [place] 2022-01-22 2022-01-22 [facility] [id number] 13:00:00 23:59:59 Piotr Agatha Baker 2022-01-22 2022-01-22 Outpatient [facility]IE [facility] [id number] 13:[facility]:00 13:00:00 17 [place] 2022-01-22 2022-01-22 Telephone SARA Tavares 1.2.840.114 [id number] Univers 00:00:00 00:00:00 Coretta SIMPSON 350.1.13.10 i ty of [facility] 4.2.7.2.686 [place] as [id number] [address] 2022-01-22 2022-01-22 Telephone SARA Tavares 1.2.840.114 [id number] Univers 00:00:00 00:00:00 Coretta SIMPSON 350.1.13.10 i ty of [facility] 4.2.7.2.686 [place] as [id number] [address] 2022-01-17 2022-01-17 Transition MARGARETTE Vance 1.2.840.114 [id number] Univers 00:00:00 00:00:00 of Care Nurys CARLOS 350.1.13.10 [place] [id number] [place] [address] Branch 2022-01-15 2022-01-16 Outpatient U SETH AKLISA PATRICK [id number] Univers 11:32:00 17:45:00 SAMUEL corona of [facility] 2022-01-15 2022-01-16 Emergency Madhavi Bryan 1.2.8 40.114 [id number] Univers 11:32:00 17:45:00 Samuel Ann 350.1.13.10 [facility] 4.2.7.2.686 [place] [id number] [facility] 098 Branch 2022-01-11 2022-01-11 IHC Follow Nimesh Parra 2.16.840. 2.16.840.1. [id number] [facility] 16:00:00 17:00:00 Up 1.269747. 821467.4.6. G9U Medical 4.6.09847 [id number] 2022-01-03 2022-01-05 Outside nullFlavo MNA [id number] Memoria 14:11:30 04:59:59 Medical r Neurology 04 l Records [place] 2022-01-03 2022-01-05 Outside nullFlavo MNA [id number] Memoria 14:11:30 04:59:59 Medical r Neurology 04 l Records [place] 2022-01-03 2022-01-04 Outpatient [id number] 09:11:30 23:59:59 04 2021-12-15 2021-12-15 Outpatient [email or web address] DMG DMG [id number] [facility] 03:39:00 03:39:00 0715 Medica l Group 2021-12-15 2021-12-15 Outpatient [email or web address] DMG DMG [id number] [facility] 00:00:00 00:00:00 0404 Medica l Group 2021-12-01 2021-12-01 Outpatient [email or web address] DMG DMG [id number] [facility] 10:00:00 10:00:00 0701 Medica l Group 2021-11-22 2021-11-22 Outpatient [email or web address] DMG DMG [id number] [facility] 01:41:00 01:41:00 0622 Medica l Group 2021-11-07 2021-11-07 IHC Follow Nimesh Parra 2.16.840. 2.16.840.1. [id number] [facility] 20:00:00 20:30:00 Up 1.858127. 338440.4.6. 5K7 Medical 4.6.06608 [id number] 2021-10-10 2021-10-10 Orders Doctor SARA 1.2.840.114 [id number] Univers 00:00:00 00:00:00 Only Unassigned, CALVIN 350.1.13.10 ity of [place] [facility] 4.2.7.2.686 [place] as [id number] [facility] 009 Branch 2021-09-25 2021-09-25 Transition MARGARETTE Vance 1.2.840.114 [id number] Univers 00:00:00 00:00:00 of Care Nurys GONZALEZ 350.1.13.10 [place] [id number] [facility] 403 Branch 2021-09-22 2021-09-23 Outpatient X FAN JARAMILLO [facility] [id number] Univers 04:01:00 15:37:00 FAN JARAMILLO [facility] 2021-09-22 2021-09-23 Emergency Darian Glass [facility] 1.2.840. 114 [id number] Univers 04:01:00 15:37:00 VinaybryanIgorua [facility] 350.1.13.10 ity of [facility] 4.2.7.2.686 [place] [facility] [phone] [address] ([facility]) 2021-09-19 2021-09-19 IHC Follow Nimesh Parra 2.16.840. 2.16.840.1. [id number] Devoted 18:00:00 19:00:00 Up 1.689111. 662843.4.6. [facility] 4.6.60942 [id number] 2021-09-05 2021-09-05 Ambulatory nullFlavo MNA [id number] Memoria 14:30:00 14:30:00 Pre-Reg r Neurology 16 l [place] 2021-09-05 2021-09-05 Ambulatory nullFlavo MNA [id number] Memoria 14:30:00 14:30:00 Pre-Reg r Neurology 16 l [place] 2021-09-05 2021-09-05 Outpatient MHIE VIVIAN [id number] Memoria 09:30:00 09:30:00 16 l Yong 2021-09-05 2021-09-05 Outpatient KATIE Josue MISCHER [id number] 09:30:00 09:30:00 Piotr Baker 2021-08-14 2021-08-14 Outpatient [facility] [id number] [place] 00:00:00 00:00:00 AUTUMN 696 Miguel salazar 2021-08-11 2021-08-11 Outpatient R [facility] [id number] [facility] 12:00:00 12:00:00 [facility] 2021-07-17 2021-07-17 IHC Follow Nimesh Parra 2.16.840. 2.16.840.1. [id number] Devoted 15:30:00 16:30:00 Up 1.601753. 525431.4.6. 8S7 Medical 4.6.18156 [id number] 2021-06-23 2021-06-23 Outpatient R SOSA [facility] [id number] [facility] 11:30:00 11:30:00 STEPHANIE [facility] 2021-06-07 2021-06-08 Outpatient nullFlavo MNA [id number] Memoria 16:15:00 05:59:59 r Neurology 15 l [place] Yong 2021-06-07 2021-06-08 Outpatient nullFlavo MNA [id number] Memoria 16:15:00 05:59:59 r Neurology 15 l [place] 2021-06-07 2021-06-07 Outpatient KATIE Josue MISCHER [id number] 10:15:00 23:59:59 Piotr Michael Baker 2021-06-07 2021-06-07 Outpatient MHIE [facility] [id number] Memoria 10:15:00 10:15:00 15 edilberto Yong 2021-05-05 2021-05-05 IHC Follow Nimesh Parra 2.16.840. 2.16.840.1. JCLHIWKH4H Devoted 15:00:00 15:30:00 Up 1.236060. 961560.4.6. 8J9 Medical 4.6.35209 [id number] 2021-04-29 2021-04-29 Emergency X [facility] ERT [id number] Univers 09:31:00 10:59:00 MADHAVI chloe of [facility] 2021-04-29 2021-04-29 Emergency [facility] 1.2.840.114 [id number] Univers 09:31:00 10:59:00 [facility] 350.1.13.10 ity of [place] 4.2.7.2.686 [place] [facility] [id number] [place] 953134 Jet 2021-04-29 2021-04-[address] [facility] [id number] Univers 10:00:00 10:00:00 CHAVO corona o f [facility] 2021-04-29 2021-04-29 Telephone [facility] 1.2.840.114 [id number] Univers 00:00:00 00:00:00 [facility] 350.1.13.10 i ty of [place] 4.2.7.2.686 [place] as ANA LAURA?BLEA [phone] Co dical [address] MEDICAL OFFICE BUILDING 2021-04-29 2021-04-29 Orders Doctor SARA 1.2.840.114 [id number] Univers 00:00:00 00:00:00 Only Unassigned, CALV[place] 350.1.13.10 ity of [place] [facility] 4.2.7.2.686 [place] as [phone] [facility] [address] 2021-04-20 2021-04-20 Ambulatory nullFlavo MNA [id number] Memoria 19:45:00 19:45:00 Pre-Reg r Neurology 14 l [place] 2021-04-20 2021-04-20 Ambulatory nullFlavo MNA [id number] Memoria 19:45:00 19:45:00 Pre-Reg r Neurology 14 l [place] Joseph[place] 2021-04-20 2021-04-20 Outpatient MHIE MHLESLY [id number] Memoria 13:45:00 13:45:00 14 l Yong 2021-04-20 2021-04-20 Outpatient KATIE [facility]ue [facility] 638 [id number] 13:45:00 13:45:00 Piotr Conchis Baker 2021-04-12 2021-04-12 IHC Follow Nimesh Parra 2.16.840. 2.16.840.1. [id number] Devoted 22:00:00 22:30:00 Up 1.490980. 855801.4.6. 7CJ Medical 4.6.87053 [id number] 2021-04-07 2021-04-07 IHC Follow Nimesh Parra 2.16.840. 2.16.840.1. [id number] Devoted 20:30:00 21:15:00 Up 1.908131. 644298.4.6. 6JC Medical 4.6.91961 [id number] 2021-03-08 2021-03-08 IHC Follow Nimesh Parra 2.16.840. 2.16.840.1. JYTRAN0DGW Devoted 14:30:00 15:15:00 Up 1.846800. 696767.4.6. Y74 Medical 4.6.84623 [id number] 2021-02-14 2021-02-14 Orders Doctor SARA 1.2.840.114 [id number] Univers 00:00:00 00:00:00 Only Unassigned, CALVIN 350.1.13.10 ity of [place] [facility] 4.2.7.2.686 [place] as [phone] [place] [address] [place] 2021-02-08 2021-02-09 Outpatient nullFlavo MNA [id number] Memoria 19:30:00 04:59:59 r Neurology 13 l [place] 2021-02-08 2021-02-09 Outpatient nullFlavo MNA [id number] Memoria 19:30:00 04:59:59 r Neurology 13 l [place] 2021-02-08 2021-02-08 Outpatient KATIE JosueSCHLYNDA [id number] 14:30:00 23:59:59 Piotr Saida Samuel 2021-02-08 2021-02-08 Outpatient MHIE VIVIAN [id number] Memoria 14:30:00 14:30:00 [place] 2021-01-25 2021-01-25 Transition Margarette Mccann 1.2.840.114 [id number] Univers 00:00:00 00:00:00 of Care Rebeca Gonzalez 350.1.13.10 i ty of [place] 4.2.7.2.686 Elaine torres [id number] [facility] [address] 2021-01-20 2021-01-24 Emergency Sergey Chapin [facility] 1.2.840. 114 [id number] Univers 16:45:00 13:03:00 Marcial Vaughan 350.1.13.10 [place] 4.2.7.2.686 [facility] [phone] [facility] [address] 2021-01-20 2021-01-24 Outpatient X FORRESTINDIA [facility] [id number] Univers 16:45:00 13:03:00 [facility] 2021-01-18 2021-01-19 Outpatient nullFlavo MNA [id number] Memoria 16:30:00 04:59:59 r Neurology 12 edilberto Josephann 2021-01-18 2021-01-19 Outpatient nullFlavo MNA [id number] [id number] Memoria 16:30:00 04:59:59 r Neurology 12 [place] 2021-01-18 2021-01-18 Outpatient KATIE JosueSCHLYNDA [id number] 11:30:00 23:59:59 Piotr Samuel 2021-01-18 2021-01-18 Outpatient MHIE MHIE [id number] Memoria 11:30:00 11:30:00 12 [place] 2020-12-08 2020-12-09 Outpatient nullFlavo MNA [id number] Memoria 14:30:00 04:59:59 r Neurology 11 l [place] 2020-12-08 2020-12-09 Outpatient nullFlavo MNA [id number] Memoria 14:30:00 04:59:59 r Neurology 11 l [place] Josephann 2020-12-08 2020-12-08 Outpatient KATIE Josue MHMISCHER [id number] 09:30:00 23:59:59 Piotr 11 Samuel 2020-12-08 2020-12-08 Outpatient MHIE MHIE [id number] Memoria 09:30:00 09:30:00 11 [place] 2020-12-02 2020-12-05 Outpatient SAVANAH ACOSTA [facility] 018 [id number] [place] 00:00:00 00:00:[address] 2020-12-01 2020-12-03 Outside nullFlavo MNA [id number] Memoria 22:29:17 04:59:59 Medical r Neurology 03 l Records [place] 2020-12-01 2020-12-03 Outside nullFlavo MNA [id number] Memoria 22:29:17 04:59:59 Medical r Neurology 03 l Records [place] Josephann 2020-12-01 2020-12-02 Outpatient MHMISCHER MHMISCHER [id number] 17:29:17 23:59:59 03 2020-10-05 2020-10-05 Ambulatory nullFlavo MNA [id number] Memoria 15:15:00 15:15:00 Pre-Reg r Neurology 10 l [place] Josephann 2020-10-05 2020-10-05 Ambulatory nullFlavo MNA [id number] Memoria 15:15:00 15:15:00 Pre-Reg r Neurology 10 l [place] Josephann 2020-10-05 2020-10-05 Outpatient MHIE MHIE [id number] Memoria 10:15:00 10:15:00 10 edilberto Yong 2020-10-05 2020-10-05 Outpatient KATIE Josue MISCHER [id number] 10:15:00 10:15:00 Piotr 10 Samuel 2020-09-21 2020-09-21 Outpatient hpham29 DMG DMG [id number] Devoted 04:19:00 04:19:00 0421 Medica l Group 2020-09-20 2020-09-20 Outpatient hpham29 DMG DMG [id number] 021 Devoted 11:40:00 11:40:00 0420 Medica l Group 2020-09-12 2020-09-12 Outpatient hpham29 DMG DMG [id number] 021 Devoted 12:31:00 12:31:00 0412 Medica l Group 2020-09-08 2020-09-08 Outpatient OWENS_T DMG RODY [id number] Devoted 09:01:00 09:01:00 0408 Medica l Group 2020-09-08 2020-09-08 Outpatient James, KAREN FINE [id number] 00:00:00 00:00:00 Maribell [id number] Grupo [id number] 2020-09-08 2020-09-08 Maribell RODYJose M MA - [id number] D evoted 00:00:00 00:00:00 Grupo Sandersa edilberto Ramirez, MAC ARTIST: [facility] [address], [place] [address] , Ph. 2020-09-07 2020-09-07 [facility] [id number] 021 Devoted 06:03:00 06:03:00 0407 Medica l Group 2020-08-08 2020-08-08 [facility] 1.2.840.114 [id number] 00:00:00 00:00:00 Outreach [facility] 350.1.13.10 [place] CARE 4.2.7.2.686 PAVILLION [id number] 388 2020-08-08 2020-08-08 [facility] 1.2.840.114 [id number] Univers 00:00:00 00:00:00 Outreach [facility] 350.1.13.10 i ty of [facility] 4.2.7.2.686 [place] PAV[place]ION [id number] Co dical [address] 2020-06-14 2020-06-15 Outpatient nullFlavo MNA [id number] Memoria 19:15:00 05:59:59 r Neurology 09 l [place] 2020-06-14 2020-06-15 Outpatient nullFlavo MNA [id number] Memoria 19:15:00 05:59:59 r Neurology 09 l [place] 2020-06-14 2020-06-14 Outpatient Joselo [facility] [id number] 13:15:00 23:59:59 Piotr 09 Samuel 2020-06-14 2020-06-14 Outpatient MHIE MHIE [id number] Memoria 13:15:00 13:15:00 09 [place] 2020-06-12 2020-06-12 Outpatient Maggie DEREK [facility] [id number] Univers 10:40:00 10:40:[facility] 2020-06-08 2020-06-08 Ambulatory nullFlavo MNA [id number] Memoria 15:15:00 15:15:00 Pre-Reg r Neurology 08 l [place] 2020-06-08 2020-06-08 Ambulatory nullFlavo MNA [id number] Memoria 15:15:00 15:15:00 Pre-Reg r Neurology 08 l [place] 2020-06-08 2020-06-08 Outpatient MHIE MHIE [id number] Memoria 09:15:00 09:15:00 08 [place] 2020-06-08 2020-06-08 Outpatient Joselo [facility] [id number] 09:15:00 09:15:00 Piotr 08 Samuel 2020-02-17 2020-02-17 Patient Margarette Jimenez 1.2.840.114 [id number] 00:00:00 00:00:00 Outreach Kelsey Rickettsy 350.1.13.10 [place] 4.2.7.2.686 [id number] [facility] 2020-02-17 2020-02-17 Patient Jimenez, Margarette 1.2.840.114 [id number] Univers 00:00:00 00:00:00 Outreach Kelsey Gonzalez 350.1.13.10 ity of [place].2.[place] [id number] [address] 2020-02-14 2020-02-14 Outpatient Maggie DEREK [facility] [id number] Univers 19:40:00 19:40:00 [facility] 2020-02-14 2020-02-14 Emergency [facility] 1.2.640.091 [id number] 14:26:00 16:05:00 Jayne Arredondo 350.1.13.10 [place] 4.2.7.2.686 [place] [id number] 08 2020-02-14 2020-02-14 Emergency [facility] 1.2.045.873 [id number] Univers 14:26:00 16:05:00 Jayne Arredondo 350.1.13.10 i ty of [place] [facility]2.[address] [facility] [place] [id number] [facility] 084 Jet 2020-02-14 2020-02-14 Orders Doctor RUIZ 1.2.840.114 [id number] 00:00:00 00:00:00 Only Unassigned, [place] 350.1.13.10 [place] [facility] 4.2.7.2.686 [id number] [facility] 2020-02-14 2020-02-14 Orders Doctor RUIZ 1.2.840.114 [id number] Univers 00:00:00 00:00:00 Only Unassigned, CALVIN 350.1.13.10 ity of [place] [facility] 4.2.7.2.686 [facility] [id number] [address] 2019-12-10 2019-12-10 Ambulatory nullFlavo MNA [id number] Memoria 20:15:00 20:15:00 Pre-Reg r Neurology 07 l [place] 2019-12-10 2019-12-10 Ambulatory nullFlavo MNA [id number] Memoria 20:15:00 20:15:00 Pre-Reg r Neurology 07 l [place] 2019-12-10 2019-12-10 Outpatient KATIE Josue MISCHER [id number] 15:15:00 15:15:00 Piotr Dustin Baker 2019-12-10 2019-12-10 Ambulatory nullFlavo MNA [id number] Memoria 14:00:00 14:00:00 Pre-Reg r Neurology 06 l [place] 2019-12-10 2019-12-10 Ambulatory nullFlavo MNA [id number] Memoria 14:00:00 14:00:00 Pre-Reg r Neurology 06 l [place] 2019-12-10 2019-12-10 Outpatient MHIE LESLY [id number] Memoria 09:00:00 09:00:00 06 l Yong 2019-12-10 2019-12-10 Outpatient MHIE MHIE [id number] Memoria 09:00:00 09:00:00 07 l Yong 2019-12-10 2019-12-10 Outpatient KATIE Josue MISCHER [id number] 09:00:00 09:00:00 Piotr Baker 2019-09-20 2019-09-20 Emergency [facility] 1.2.887.894 [id number] 12:46:41 16:25:00 Jayne Arredondo 350.1.13.10 [place] 4.2.7.2.686 [place] [id number] [facility] 2019-09-20 2019-09-20 Emergency [facility] 1.2.521.226 [id number] Univers 12:46:41 16:25:00 Jayne Arredondo 350.1.13.10 i ty of [place] 4.2.7.2.686 [facility] [id number] [place] [address] [place] 2019-09-20 2019-09-20 Emergency X [facility] ERT [id number] Univers 12:46:41 16:25:00 JAYNE [facility] 2019-09-20 2019-09-20 Outpatient R MARKELL, [facility] [id number] Univers 13:00:00 13:00:00 GABINO [facility] 2019-09-18 2019-09-18 Outpatient R VICENTE, [facility] [id number] Univers 19:00:00 19:00:00 ZANDER hanna [facility] 2019-08-07 2019-08-07 Outpatient 3 [place] [facility] JEANINE [id number] 13:10:00 13:10:00 [place] -[id number] [facility] 2019-04-02 2019-04-03 Outpatient nullFlavo MNA [id number] Memoria 14:30:00 04:59:59 r Neurology 05 l [place] 2019-04-02 2019-04-03 Outpatient nullFlavo MNA [id number] Memoria 14:30:00 04:59:59 r Neurology 05 l [place] 2019-04-02 2019-04-02 Outpatient KATIE Josue MHMISCHER [id number] 09:30:00 23:59:59 Piotr 05 Samuel 2019-04-02 2019-04-02 Outpatient MHIE MHIE [id number] [facility] 09:30:00 09:30:00 05 [place] 2019-03-03 2019-03-03 Outpatient Maggie CODY III, [facility] [id number] Univers 15:40:00 16:31:06 NOE [facility] 2019-03-02 2019-03-02 Outpatient Maggie CODY III, [facility] [id number] Univers 16:00:00 16:00:00 NOE [facility] 2019-02-21 2019-02-21 Outpatient Maggie CARTER, [facility] [id number] Univers 11:50:00 23:59:00 GREGORY [facility] 2019-02-17 2019-02-17 Transition Margarette Gomez 1.2.840.114 [id number] 00:00:00 00:00:00 of Care Ivett Gonzalez 350.1.13.10 [place] 4.2.7.2.686 [id number] 403 2019-02-17 2019-02-17 Transition Margarette Gomez 1.2.840.114 [id number] Univers 00:00:00 00:00:00 of Care Ivett Gonzalez 350.1.13.10 it y of [place].2.[place] [id number] [facility] [address] 2019-02-14 2019-02-15 [facility] Casa Rivera [facility] 1.2.840.1 [id number] 19:37:01 10:35:00 Encounter Tod Singh 350.1.13.10 [place] 4.2.7.2.686 [place] [id number] [facility] 2019-02-14 2019-02-15 [facility] [place] [facility] 1.2.840.1 [id number] [facility] 19:37:01 10:35:00 Encounter Tod Singh 350.1.13.10 ity of [place].7.2.686 [place] [id number] [place] 953131 Jet 2019-02-14 2019-02-14 Nurse Nurse, Karel [facility] 1.2.840.114 [id number] 19:13:52 19:30:10 Visit Urgent Care [facility] 350.1.13.10 Surgical 4.2.7.2.686 Specialti [id number] [address] 2019-02-14 2019-02-14 Nurse Nurse, [facility] Urgent [facility] 1.2 .840.114 [id number] [facility] 19:13:52 19:30:10 Visit Unknown, Attending [facility] 350.1.13.10 ity of Surgical 4.2.7.2.686 [place] as Specialti [phone] [address] 2019-01-31 2019-01-31 [facility] Dc [facility] 1.2.840.114 [id number] 11:25:08 11:40:08 Care Pending Sale To [facility] 350.1.13.10 Surgical 4.2.7.2.686 Specialti [id number] [address] 2019-01-31 2019-01-31 Urgent Sara Irwin [facility] 1.2.840.114 [id number] [facility] 11:25:08 11:40:08 Care Unknown, [facility] 350.1.13.10 ity of Surgical 4.2.7.2.686 [place] Specialti [id number] [address] 2019-01-31 2019-01-31 Orders Doctor SARA 1.2.840.114 [id number] 00:00:00 00:00:00 Only Unassigned, [place] 350.1.13.10 [place] [facility] 4.2.7.2.686 [id number] [facility] 2019-01-31 2019-01-31 Orders Doctor SARA 1.2.840.114 [id number] Univers 00:00:00 00:00:00 Only Unassigned, CALVIN 350.1.13.10 ity of [place] [facility]PITAL 4.2.7.2.686 [place] as [id number] [address] 2018-07-03 2018-07-04 Outpatient nullFlavo MNA [id number] [facility] 14:45:00 05:59:59 r Neurology 04 l [place] 2018-07-03 2018-07-04 Outpatient nullFlavo MNA [id number] Memoria 14:45:00 05:59:59 r Neurology 04 [place] 2018-07-03 2018-07-03 Outpatient Joselo [facility] [id number] 08:45:00 23:59:59 Piotr Sam Baker 2018-07-03 2018-07-03 Ambulatory nullFlavo MNA [id number] Memoria 14:45:00 14:45:00 Pre-Reg r Neurology 03 [place] 2018-07-03 2018-07-03 Ambulatory nullFlavo MNA [id number] Memoria 14:45:00 14:45:00 Pre-Reg r Neurology 03 [place] 2018-07-03 2018-07-03 Outpatient MHIE [facility] [id number] Memoria 08:45:00 08:45:00 [place] 2018-07-03 2018-07-03 [id number] 08:45:00 08:45:00 Piotr Adarsh Baker 2018-05-30 2018-05-30 Ambulatory nullFlavo MNA [id number] Memoria 21:45:00 21:45:00 Pre-Reg r Neurology 02 [place] 2018-05-30 2018-05-30 Ambulatory nullFlavo MNA [id number] Memoria 21:45:00 21:45:00 Pre-Reg r Neurology 02 [place] 2018-05-30 2018-05-30 Outpatient Jos[facility] [id number] 15:45:00 15:45:00 Piotr Radha Baker 2018-05-22 2018-05-24 Phone nullFlavo MNA [id number] Memoria 21:49:00 05:59:59 Message r Neurology 01 [place] 2018-05-22 2018-05-24 Phone nullFlavo MNA [id number] Memoria 21:49:00 05:59:59 Message r Neurology 01 [place] 2018-05-22 2018-05-23 Outpatient MISCHER MISCHER [id number] 15:49:00 23:59:59 Jd 2018-05-22 2018-05-22 Ambulatory nullFlavo MNA [id number] Memoria 20:45:00 20:45:00 Pre-Reg r Neurology 01 l [place] 2018-05-22 2018-05-22 Ambulatory nullFlavo MNA [id number] Memoria 20:45:00 20:45:00 Pre-Reg r Neurology 01 l [place] 2018-05-22 2018-05-22 Outpatient Joselo [facility] [id number] 14:45:00 14:45:00 Piotr Samuel 2018-05-13 2018-05-13 Ambulatory nullFlavo MNA [id number] Memoria 21:30:00 21:30:00 Pre-Reg r Neurology 00 [place] 2018-05-13 2018-05-13 Ambulatory nullFlavo MNA [id number] Memoria 21:30:00 21:30:00 Pre-Reg r Neurology 00 l [place] 2018-05-13 2018-05-13 Outpatient Joselo [facility] [id number] 15:30:00 15:30:00 Piotr Samuel Results Test Description Test Time Test Comments Results Result Comments Source POCT GLUCOSE (AUTOMATED) 2022-12-03 16:34:03 Test Item Value Reference Range Interpretation Comme nts POCT GLU (test code = 9891763301) 160 mg/dL 70-110 H Lab Interpretation (test code = 34942-4) [facility]2022-[facility]-03 13:49:13 Test Item Value Reference Range Interpretation Comments POCT GLU (test code = 1053765928) 169 mg/dL 70-110 H Lab Interpretation (test code = Abnormal 63922-3) [facility] [id number] 03:44:45 Test Item Value Reference Range Interpretation Comments FERRITIN (test code = 36.3 ng/mL 11.0-264.0 8910626760) CLARICE (test code = CLARICE) Biotin has been reported to cause a negative bias, interpret results relative to patient's use of biotin. Lab Interpretation (test Normal code = 88607-1) [facility] [id number] 03:16:25 Test Item Value Reference Range Interpretation Comments IRON (test code = 4441420224) 66 ug/dL 50-160 TIBC (test code = 2670283778) 364 ug/dL 250-410 % FE SAT (test code = 1579371648) 18 % 20-50 L Lab Interpretation (test code = Abnormal 32354-9) [facility] STIMULATING [id number] 02:24:38 Test Item Value Reference Range Interpretation Comments TSH (test code = 1.79 See_Comment Biotin has been 3591729691) reported to cau se a negative bias, interpret resul ts relative to pat ient's use of biotin. [Automated mess age] The system [employer] generated this result transmitted ref erence range: 0.45 - 4 .70 mIU/L. The refe rence range was not u sed to interpret this result as normal/abnor mal. Lab Interpretation (test Normal code = 23840-1) [facility]ATED)2022-12-03 01:21:53 Test Item Value Reference Range Interpretation Comments POCT GLU (test code = 5374356676) 124 mg/dL 70-110 H Lab Interpretation (test code = Abnormal 05498-0) [facility] [id number] 00:20:53 Test Item Value Reference Range Interpretation Comments FREE T3 (test code = 8609452683) 3.78 pg/mL 2.77-5.27 Lab Interpretation (test code = Normal 80736-4) [facility] [id number] 00:20:53 Test Item Value Reference Range Interpretation Comments FREE T4 (test code = 1.03 See_Comment [Autom ated message] [id number]) The system [employer] generated this result transmitted ref erence range: 0.78 - 2 .20 ng/dL:. The ref erence range was not u sed to interpret this result as normal/abnor mal. Lab Interpretation (test Normal code = 04973-1) [facility] Texas[facility]ane[facility] Acid Whole [id number] 23:27:42 Test Item Value Reference Range Interpretation Comments LACTIC ACID (test code = 1.18 mmol/L 0.50-2.20 0858020536) Lab Interpretation (test code = Normal 50497-9) [facility] [id number] 20:44:44 Test Item Value Reference Range Interpretation Comments TROPONIN I (test code = 0.000 ng/mL <=0.034 5554866236) CLARICE (test code = CLARICE) Reference (Normal) [...] biotin. Lab Interpretation Normal (test code = 22487-4) [facility] TexasN-TERMINAL [id number] 20:41:46 Test Item Value Reference Range Interpretation Comments NT-proBNP (test code = 63 pg/mL <=125 9639622353) CLARICE (test code = CLARICE) Biotin has been reported to cause a negative bias, interpret results relative to patient's use of biotin. Lab Interpretation (test Normal code = 32499-9) [facility]. METABOLIC PANEL (01280)2022-12-02 20:33:07 Test Item Value Reference Range Interpretation Comments NA (test code = 138 mmol/L 135-145 [id number]) K (test code = 4.4 mmol/L 3.5-5.0 4832789240) CL (test code = 103 mmol/L 98-108 3092954903) CO2 TOTAL (test code = 26 mmol/L 23-31 9312808998) AGAP (test code = 9 2-16 6227922178) BUN (test code = 14 mg/dL 7-23 8655417629) GLUCOSE (test code = 178 mg/dL 70-110 H [id number]) CREATININE (test code = 0.72 mg/dL 0.50-1.04 2913419368) TOTAL BILI (test code = 0.6 mg/dL 0.1-1.3 0836570693) CALCIUM (test code = 8.9 mg/dL 8.6-10.6 5312684641) T PROTEIN (test code = 5.9 g/dL 6.3-8.2 L 3780219511) ALBUMIN (test code = 3.7 g/dL 3.5-5.0 0094385415) ALK PHOS (test code = 90 U/L 34-122 9706509622) ALTv (test code = 27 U/L 5-35 1742-6) AST(SGOT) (test code = 27 U/L 13-40 6531765676) eGFR (test code = 80.3 mL/min/1.73m2 0907090219) CLARICE (test code = CLARICE) Association of [...] tests). Lab Interpretation Abnormal (test code = 51228-4) [facility] Test Item Value Reference Range Interpretation Comments LIPASE (test code = [id number]) 309 U/L 0-220 H Lab Interpretation (test code = Abnormal 43295-4) [facility] [id number] 20:06:22 Test Item Value Reference Range Interpretation Comments APTT Patient (test 26 See_Comment [Automat ed code = 3173-2) message] The system which generated this result transmitted reference range : 23 - 38 Seconds . The reference range was not used to interpr et this result as normal/abnormal . CLARICE (test code = CLARICE) The [facility] patient population mean normal value for aPTT is 30 seconds. Lab Interpretation Normal (test code = 37387-3) [facility]PROTHROMBIN [facility] / [id number] 20:03:41 Test Item Value Reference Range Interpretation [...] tions. Lab Interpretation (test Abnormal code = 28144-8) [facility] WITH [id number] 19:53:03 Test Item Value Reference Range Interpretation Comments WBC (test code = 7.08 See_Comment [Automated 4490-2) message] The sy stem which generated this result transmitted reference range : 4.30 - 11.10 10*3/?L. The reference range was not used to interpret this result as normal/abnormal . RBC (test code = 3.85 See_Comment L [Automated 409-8) message] The sy stem which generated this [...] RDW-SD (test code = 41.2 fL 39.0-49.9 37785-7) RDW-CV (test code = 13.2 % 12.0-15.5 788-0) PLT (test code = 182 See_Comment [Automated 777-3) message] The sy stem which generated this result transmitted reference range : 166 - 358 10*3/ ?L. The reference r alexus was not used to interpret this result as normal/abnormal . MPV (test code = 9.7 fL 9.5-12.9 83522-4) NRBC/100 WBC (test 0.0 See_Comment [Automat ed code = 2200390157) message] The system which generated this result transmitted reference range : 0.0 - 10.0 /100 WBCs. The refer ence range was not u sed to interpret th is result as normal/abnormal . NRBC x10^3 (test code See_Comment [Auto mated = 3865912802) message] The s ystem which generated this result transmitted reference range : 10*3/?L. The reference range was not used to interpret this result as normal/abnormal . GRAN MAT (NEUT) % 55.7 % (test code = 770-8) IMM GRAN % (test code 0.40 % = 2013049349) LYMPH % (test code = 31.6 % 736-9) MONO % (test code = 8.9 % 5905-5) EOS % (test code = 2.7 % 713-8) BASO % (test code = 0.7 % 706-2) GRAN MAT x10^3(ANC) 3.94 10*3/uL 1.88-7.09 (test code = 2545798504) IMM GRAN x10^3 (test 0.03 10*3/uL 0.00-0.06 code = 3300978174) LYMPH x10^3 (test code 2.24 10*3/uL 1.32-3.29 = 731-0) MONO x10^3 (test code 0.63 10*3/uL 0.33-0.92 = 742-7) EOS x10^3 (test code = 0.19 10*3/uL 0.03-0.39 711-2) BASO x10^3 (test code 0.05 10*3/uL 0.01-0.07 = 704-7) Lab Interpretation Abnormal (test code = 62237-1) [facility] GLUCOSE (AUTOMATED)2022-12-02 19:00:52 Test Item Value Reference Range Interpretation Comments POCT GLU (test code = 8771655858) 213 mg/dL 70-110 H Lab Interpretation (test code = Abnormal 88605-3) [facility] GLUCOSE (AUTOMATED)2022-11-05 16:11:13 Test Item Value Reference Range Interpretation Comments POCT GLU (test code = 9564059724) 358 mg/dL 70-110 H Lab Interpretation (test code = Abnormal 80515-2) [facility] GLUCOSE (AUTOMATED)2022-11-05 12:44:59 Test Item Value Reference Range Interpretation Comments POCT GLU (test code = 4582774747) 229 mg/dL 70-110 H Lab Interpretation (test code = Abnormal 83789-5) [facility] GLUCOSE (AUTOMATED)2022-11-05 00:55:07 Test Item Value Reference Range Interpretation Comments POCT GLU (test code = 4857396038) 253 mg/dL 70-110 H Lab Interpretation (test code = Abnormal 73219-9) [facility] GLUCOSE (AUTOMATED)2022-11-04 22:38:35 Test Item Value Reference Range Interpretation Comments POCT GLU (test code = 7704938911) 206 mg/dL 70-110 H Lab Interpretation (test code = Abnormal 06765-4) [facility] GLUCOSE (AUTOMATED)2022-11-04 16:57:57 Test Item Value Reference Range Interpretation Comments POCT GLU (test code = 9783455681) 200 mg/dL 70-110 H Lab Interpretation (test code = Abnormal 76859-3) [facility] GLUCOSE (AUTOMATED)2022-11-04 13:13:50 Test Item Value Reference Range Interpretation Comments POCT GLU (test code = 3759544427) 203 mg/dL 70-110 H Lab Interpretation (test code = Abnormal 80909-4) [facility]AM[facility], [id number] 10:59:51 Test Item Value Reference Range Interpretation Comments AMMONIA (test code = 0711744032) 9-33 L Lab Interpretation (test code = Abnormal 23609-6) [facility] GLUCOSE (AUTOMATED)2022-11-04 01:02:48 Test Item Value Reference Range Interpretation Comments POCT GLU (test code = 3500619238) 288 mg/dL 70-110 H Lab Interpretation (test code = Abnormal 47567-2) [facility] GLUCOSE (AUTOMATED)2022-11-03 22:13:20 Test Item Value Reference Range Interpretation Comments POCT GLU (test code = 7898872407) 184 mg/dL 70-110 H Lab Interpretation (test code = Abnormal 08416-8) [facility] GLUCOSE (AUTOMATED)2022-11-03 17:08:39 Test Item Value Reference Range Interpretation Comments POCT GLU (test code = 2029710298) 180 mg/dL 70-110 H Lab Interpretation (test code = Abnormal 05721-3) [facility] [place]HEPAT[facility] PAN[facility] (57296) (ALB,T.PRO,BILI T,BU/BC,ALT,AST,ALK PHOS)2022-11-03 15:50:38 Test Item Value Reference Range Interpretation Comments TOTAL BILI (test code = 5382813047) 0.3 mg/dL 0.1-1.1 BILI UNCON (test code = 4339984246) 0.1 mg/dL 0.1-1.1 BILI CONJ (test code = 8443738678) 0.0 mg/dL 0.0-0.3 T PROTEIN (test code = 6569890073) 6.2 g/dL 6.3-8.2 L ALBUMIN (test code = 6788269343) 4.0 g/dL 3.5-5.0 ALK PHOS (test code = 7678217849) 139 U/L 34-122 H ALTv (test code = 1742-6) 22 U/L 5-35 AST(SGOT) (test code = 3353193112) 23 U/L 13-40 Lab Interpretation (test code = Abnormal 56055-0) [facility] TexasIRON [id number] 14:38:52 Test Item Value Reference Range Interpretation Comments IRON (test code = 1569757357) 62 ug/dL 50-160 TIBC (test code = 7495592835) 393 ug/dL 250-410 % FE SAT (test code = 5559433758) 16 % 20-50 L Lab Interpretation (test code = Abnormal 98686-2) [facility] GLUCOSE (AUTOMATED)2022-11-03 13:28:51 Test Item Value Reference Range Interpretation Comments POCT GLU (test code = 2458948232) 142 mg/dL 70-110 H Lab Interpretation (test code = Abnormal 20446-8) [facility] GLUCOSE (AUTOMATED)2022-11-03 02:34:58 Test Item Value Reference Range Interpretation Comments POCT GLU (test code = 7537107111) 198 mg/dL 70-110 H Lab Interpretation (test code = Abnormal 88815-2) [facility] GLUCOSE (AUTOMATED)2022-11-02 23:08:06 Test Item Value Reference Range Interpretation Comments POCT GLU (test code = 9398879615) 160 mg/dL 70-110 H Lab Interpretation (test code = Abnormal 18077-2) [facility] GLUCOSE (AUTOMATED)2022-11-02 17:29:22 Test Item Value Reference Range Interpretation Comments POCT GLU (test code = 9242585962) 103 mg/dL 70-110 Lab Interpretation (test code = Normal 12817-5) [facility] GLUCOSE (AUTOMATED)2022-11-02 15:12:05 Test Item Value Reference Range Interpretation Comments POCT GLU (test code = 7677565377) 122 mg/dL 70-110 H Lab Interpretation (test code = Abnormal 61260-6) [facility] TexasGLYCOSYLATED HEMOGLOBIN (A1C)2022-11-02 03:31:19 Test Item Value Reference Range Interpretation Comments HGB A1C (test code = 8.4 % 4.0-5.7 H 4548-4) CLARICE (test code = CLARICE) Reference RangesNormal: <5.7%Prediabetes: 5.7 - 6.4%Diabetes: > 6.5% Lab Interpretation (test Abnormal code = 38541-4) [facility] TexasTROPONIN [id number] 20:01:06 Test Item Value Reference Range Interpretation Comments TROPONIN I (test code = 0.006 ng/mL <=0.034 2569117717) CLARICE (test code = CLARICE) Reference (Normal) [...] biotin. Lab Interpretation Normal (test code = 94998-7) [facility] TexasETHANOL2023-06-01 19:43:35 ALCOHOL<10mg/dL11/01/2022 2:43 PM [facility]<10 Kaiusrew66-926 Toxic>100 Depression of HOISTER>400 Fatalities ReportedUnB[facility] IrvingCOM. METABOLIC PANEL (04407) 2022-11-01 19:42:24 Test Item Value Reference Range Interpretation Comments NA (test code = 140 mmol/L 135-145 9905565310) K (test code = 4.1 mmol/L 3.5-5.0 7467678005) CL (test code = 104 mmol/L 98-108 7779928224) CO2 TOTAL (test code = 27 mmol/L 23-31 8257058018) AGAP (test code = 9 2-16 2198765024) BUN (test code = 15 mg/dL 7-23 3681131589) GLUCOSE (test code = 126 mg/dL 70-110 H 2993125164) CREATININE (test code = 0.69 mg/dL 0.50-1.04 5882761450) TOTAL BILI (test code = 0.3 mg/dL 0.1-1.3 7979285127) CALCIUM (test code = 8.8 mg/dL 8.6-10.6 3019542544) T PROTEIN (test code = 6.3 g/dL 6.3-8.2 6768180811) ALBUMIN (test code = 3.9 g/dL 3.5-5.0 4828658585) ALK PHOS (test code = 136 U/L 34-122 H 5245143829) ALTv (test code = 22 U/L 35 1742-6) AST(SGOT) (test code = 22 U/L 13-40 2774031594) eGFR (test code = 84.4 mL/min/1.73m2 7095430404) CLARICE (test code = CLARICE) Association of [...] tests). Lab Interpretation Abnormal (test code = 96738-1) [facility] TexasCREATINE [id number] 19:42:24 Test Item Value Reference Range Interpretation Comments CK (test code = 9975162852) 103 U/L 33-194 Lab Interpretation (test code = Normal 37931-3) [facility] WITH [id number] 19:29:23 Test Item Value Reference Range Interpretation Comments WBC (test code = 6.85 See_Comment [Automated 3683-2) message] The sy stem which generated this [...] RDW-SD (test code = 41.8 fL 39.0-49.9 23525-2) RDW-CV (test code = 13.3 % 12.0-15.5 788-0) PLT (test code = 194 See_Comment [Automated 777-3) message] The sy stem which generated this result transmitted reference range : 166 - 358 10*3/ ?L. The reference r alexus was not used to interpret this result as normal/abnormal . MPV (test code = 10.0 fL 9.5-12.9 16029-1) NRBC/100 WBC (test 0.0 See_Comment [Automat ed code = 3068073203) message] The system which generated this result transmitted reference range : 0.0 - 10.0 /100 WBCs. The refer ence range was not u sed to interpret th is result as normal/abnormal . NRBC x10^3 (test code See_Comment [Auto mated = 0546485468) message] The s ystem which generated this result transmitted reference range : 10*3/?L. The reference range was not used to interpret this result as normal/abnormal . GRAN MAT (NEUT) % 55.0 % (test code = 770-8) IMM GRAN % (test code 0.70 % = 6459905361) LYMPH % (test code = 28.6 % 736-9) MONO % (test code = 10.9 % 5905-5) EOS % (test code = 3.9 % 713-8) BASO % (test code = 0.9 % 706-2) GRAN MAT x10^3(ANC) 3.76 10*3/uL 1.88-7.09 (test code = 0587029261) IMM GRAN x10^3 (test 0.05 10*3/uL 0.00-0.06 code = 0346551810) LYMPH x10^3 (test code 1.96 10*3/uL 1.32-3.29 = 731-0) MONO x10^3 (test code 0.75 10*3/uL 0.33-0.92 = 742-7) EOS x10^3 (test code = 0.27 10*3/uL 0.03-0.39 711-2) BASO x10^3 (test code 0.06 10*3/uL 0.01-0.07 = 704-7) Lab Interpretation Abnormal (test code = 06998-0) [facility]-01 19:25:25 Test Item Value Reference Range Interpretation Comments POCT GLU (test code = 4151066065) 146 mg/dL 70-110 H Lab Interpretation (test code = Abnormal 20800-2) [facility] TexasTroponin I - Code [id number] 06:14:08 Test Item Value Reference Range Interpretation Comments TROPONIN I (test code = 0.002 ng/mL <=0.034 3965639129) CLARICE (test code = CLARICE) Reference (Normal) [...] biotin. Lab Interpretation Normal (test code = 48854-5) [facility] Metabolic Panel (NA, K, CL, CO2, Glucose, BUN, Creatinine, CA) - Code [id number] 06:02:29 Test Item Value Reference Range Interpretation Comments NA (test code = 136 mmol/L 135-145 3764081326) K (test code = 4.2 mmol/L 3.5-5.0 2222142693) CL (test code = 99 mmol/L 98-108 8131102392) CO2 TOTAL (test code = 26 mmol/L 23-31 2894834510) AGAP (test code = 11 2-16 0250420998) BUN (test code = 19 mg/dL 7-23 7544600158) GLUCOSE (test code = 203 mg/dL 70-110 H 8724339963) CREATININE (test code = 0.69 mg/dL 0.50-1.04 3001357028) CALCIUM (test code = 9.2 mg/dL 8.6-10.6 5545785106) eGFR (test code = 84.4 mL/min/1.73m2 9761832813) CLARICE (test code = CLARICE) Association of [...] tests). Lab Interpretation Abnormal (test code = 05944-2) [facility] TexasaPTT - Code [id number] 05:59:27 Test Item Value Reference Range Interpretation Comments APTT Patient (test 26 See_Comment [Automat ed code = 3173-2) message] The system which generated this result transmitted reference range : 23 - 38 Seconds . The reference range was not used to interpr et this result as normal/abnormal . CLARICE (test code = CLARICE) The [facility] patient population mean normal value for aPTT is 30 seconds. Lab Interpretation Normal (test code = 93999-3) [facility] TexasProthrombin Time / INR - Code [id number] 05:57:24 Test Item Value Reference Range Interpretation [...] tions. Lab Interpretation (test Normal code = 15916-3) [facility]PO[facility]2022-09-08 05:53:10 Test Item Value Reference Range Interpretation Comments POCT GLU (test code = 8736917309) 210 mg/dL 70-110 H Lab Interpretation (test code = Abnormal 04781-6) [facility] TexasCBC without Diff - Code [id number] 05:49:48 Test Item Value Reference Range Interpretation Comments WBC (test code = 7.66 See_Comment [Automated message] The 6690-2) system which ge nerated this result tra nsmitted reference range : 4.30 - 11.10 10*3/?L. The reference range was not used to interpr et this result as normal/abnormal . RBC (test code = 4.63 See_Comment [Automated message] The 789-8) system which nerated this result tra nsmitted [...] MPV (test code = 9.9 fL 9.5-12.9 96746-2) RDW-CV (test code = 13.5 % 12.0-15.5 788-0) RDW-SD (test code = 41.8 fL 39.0-49.9 87787-0) NRBC x10^3 (test See_Comment [Automated message] The code = 0605519438) system [facility] generated this result tra nsmitted reference range : 10*3/?L. The reference r alexus was not used to int erpret this result as normal/abnormal . NRBC/100 WBC (test 0.0 See_Comment [Automat ed message] The code = 2349843417) system [facility] generated this result tra nsmitted reference range : 0.0 - 10.0 /100 WBCs. The reference range was not used to interpr et this result as normal/abnormal . IPF % (test code = 2156407842) [facility] GLUCOSE (AUTOMATED)2022-01-16 17:47:00 Test Item Value Reference Range Interpretation Comments POCT GLU (test code = 7711403471) 258 mg/dL 70-110 H Lab Interpretation (test code = Abnormal 15819-4) [facility] GLUCOSE (AUTOMATED)2022-01-16 13:54:45 Test Item Value Reference Range Interpretation Comments POCT GLU (test code = 3777855718) 171 mg/dL 70-110 H Lab Interpretation (test code = Abnormal 02144-9) [facility] GLUCOSE (AUTOMATED)2022-01-16 01:32:03 Test Item Value Reference Range Interpretation Comments POCT GLU (test code = 1196225991) 232 mg/dL 70-110 H Lab Interpretation (test code = Abnormal 65467-6) [facility] GLUCOSE (AUTOMATED)2022-01-15 16:47:52 Test Item Value Reference Range Interpretation Comments POCT GLU (test code = 2493474316) 263 mg/dL 70-110 H Lab Interpretation (test code = Abnormal 42862-7) [facility] TexasTransthoracic echo (TTE)2021-09-23 18:23:20 Test Item Value Reference Range Interpretation Comments LVOT stroke volume (test 74.90 cm3 code = 8270094104) EF(Teich) (test code = 61.80 % 6421989873) LVIDD (test code = 4.90 cm 0044868019) LVIDS (test code = 3.30 cm 1830207416) IVS (test code = 1.01 cm 5395163023) LVPWD (test code = 1.02 cm 6148500362) LVOT diameter (test code 1.91 cm = 7344088870) FS (test code = 33 % 6782672270) MV Peak E Vamsi (test code 94.6 cm/s = 5432695214) MV Peak A Vamsi (test code 147.7 cm/s = 0008481267) E/A ratio (test code = ratio 9759672649) E wave decelartion time 0.34 s (test code = 9580007919) LA Volume Index (BP) 28.4 mL/m2 (test code = 5792021211) LA volume (BP) (test code 51.8 mL = 5251594283) LVOT peak vamsi (test code 123.1 cm/s = 7830583388) LVOT mn grad (test code = mmHg 7074678643) Left Ventricular Cardiac 4.8 L/min Output (test code = 0424430) LA size (test code = 2.30 cm 7720829042) LAV(MOD-sp2) (test code = 46.40 mL 0193143145) LAV(MOD-sp4) (test code = 57.10 mL 5429773058) Tapse (test code = 2.6 cm 0107321095) Ao peak vamsi (test code = 127.6 cm/s 7123812958) AV LVOT peak gradient mmHg (test code = 2224965127) LVOT peak VTI (test code 26.2 cm = 4021758571) AV area peak vamsi (test 2.8 cm2 code = 8311282020) Aortic HR (test code = BPM 6858763021) LV V1 mean (test code = 80.10 cm/s 3315650108) Ao max PG (test code = 6.50 mm[Hg] 1100163822) MV Prop V (test code = 62.10 cm/s 3360545016) TR Peak Vamsi (test code = 238.9 cm/s 1553444410) Triscuspid Valve mmHg Regurgitation Peak Gradient (test code = 4123726086) Ao root annulus (test 3.4 cm code = 5138171484) Ao root diam (test code = 3.40 cm 0930460260) IVC Diam Exp(MM) (test 1.68 cm code = 9367525691) IVC Diam Ins(MM) (test 1.02 cm code = 7089531676) AV peak gradient (test mmHg code = 0845829640) Aortic root (test code = 3.4 cm 8144421443) PW (test code = 1.02 cm 0.6-1.6 9726864999) EF - 2D (test code = 61.80 % 96264189) Interventricular Septum 1.01 cm Diastolic Thickness by 2D (test code = 7422391) Radiology Study observation (narrative) (test code = 38274-3) CLARICE (test code = CLARICE) ?Left?Ventricle: Left [...] (75.3 kg) 1.86 sq meters 132/78 67 [facility] GLUCOSE (AUTOMATED)2021-09-23 16:38:56 Test Item Value Reference Range Interpretation Comments POCT GLU (test code = 4890001968) 146 mg/dL 70-110 H Lab Interpretation (test code = Abnormal 59252-7) [facility] GLUCOSE (AUTOMATED)2021-09-23 13:26:11 Test Item Value Reference Range Interpretation Comments POCT GLU (test code = 0621931210) 158 mg/dL 70-110 H Lab Interpretation (test code = Abnormal 83714-1) [facility] GLUCOSE (AUTOMATED)2021-09-23 01:44:45 Test Item Value Reference Range Interpretation Comments POCT GLU (test code = 1218833165) 129 mg/dL 70-110 H Lab Interpretation (test code = Abnormal 08223-3) [facility] GLUCOSE (AUTOMATED)2021-09-22 21:12:38 Test Item Value Reference Range Interpretation Comments POCT GLU (test code = 0442793206) 146 mg/dL 70-110 H Lab Interpretation (test code = Abnormal 14967-7) [facility] GLUCOSE (AUTOMATED)2021-09-22 16:40:51 Test Item Value Reference Range Interpretation Comments POCT GLU (test code = 2376007237) 197 mg/dL 70-110 H Lab Interpretation (test code = Abnormal 70640-5) [id number] 10:44[facility]58 Test Item Value Reference Interpretation Comments Range TROPONIN I (test 0.018 ng/mL See_Comment [Automated code = 5297241007) message] The system which generated this result [...] biotin. Lab Interpretation Normal (test code = 48339-6) [facility] TexasN-TERMINAL [id number] 10:41:16 Test Item Value Reference Range Interpretation Comments NT-proBNP (test code 94 pg/mL See_Comment [Autom ated = 0041396955) message] The system which generated this result transmitted reference range : <=125. The reference range was not used to interpret this result as normal/abnormal . CLARICE (test code = CLARICE) Biotin has been reported to cause a negative bias, interpret results relative to patient's use of biotin. Lab Interpretation Normal (test code = 66540-2) [facility] TexasCOMP. METABOLIC PANEL (67252)2021-09-22 10:31:56 Test Item Value Reference Range Interpretation Comments NA (test code = 136 mmol/L 135-145 4471381985) K (test code = 4.0 mmol/L 3.5-5.0 9657299080) CL (test code = 102 mmol/L 98-108 3539052850) CO2 TOTAL (test code = 23 mmol/L 23-31 9134565764) AGAP (test code = 2-16 4054427549) BUN (test code = 17 mg/dL 7-23 0455112640) GLUCOSE (test code = 179 mg/dL 70-110 H 5418751346) CREATININE (test code = 0.58 mg/dL 0.50-1.04 8514845404) TOTAL BILI (test code = 0.5 mg/dL 0.1-1.2 8991633523) CALCIUM (test code = 8.4 mg/dL 8.6-10.6 L 1486745360) T PROTEIN (test code = 6.7 g/dL 6.3-8.2 4142321195) ALBUMIN (test code = 4.3 g/dL 3.5-5.0 3204920049) ALK PHOS (test code = 185 U/L 34-122 H 8203643243) ALTv (test code = 18 U/L 5-35 1742-6) AST(SGOT) (test code = 20 U/L 13-40 9312671045) eGFR (test code = mL/min/1.73m2 8739265826) CLARICE (test code = CLARICE) Association of [...] tests). Lab Interpretation Abnormal (test code = 16290-0) [facility] TexasACTIVATED PARTIAL THRMPLAS [id number] 10:15:14 Test Item Value Reference Range Interpretation Comments APTT Patient (test See_Comment [Automat ed code = 3173-2) message] The system which generated this result transmitted reference range : 23 - 38 Seconds . The reference range was not used to interpr et this result as normal/abnormal . CLARICE (test code = CLARICE) The [facility] patient population mean normal value for aPTT is 30 seconds. Lab Interpretation Normal (test code = 46869-7) [facility] TexasPROTHROMBIN TIME / [id number] 10:13:13 Test Item Value Reference Range Interpretation [...] tions. Lab Interpretation (test Normal code = 08116-4) [facility] WITH [id number] 09:53:12 Test Item Value Reference Range Interpretation Comments WBC (test code = See_Comment [Automated 3490-2) message] The sy stem which generated this [...] RDW-SD (test code = 41.1 fL 39.0-49.9 77394-5) RDW-CV (test code = 13.2 % 12.0-15.5 788-0) PLT (test code = See_Comment [Automated 777-3) message] The sy stem which generated this result transmitted reference range : 166 - 358 10*3/ ?L. The reference r alexus was not used to interpret this result as normal/abnormal . MPV (test code = 9.7 fL 9.5-12.9 45532-9) NRBC/100 WBC (test See_Comment [Automat ed code = 8927514834) message] The system which generated this result transmitted reference range : 0.0 - 10.0 /100 WBCs. The refer ence range was not u sed to interpret th is result as normal/abnormal . NRBC x10^3 (test code <0.01 See_Comment [Auto mated = 8694178584) message] The s ystem which generated this result transmitted reference range : 10*3/?L. The reference range was not used to interpret this result as normal/abnormal . GRAN MAT (NEUT) % 62.5 % (test code = 770-8) IMM GRAN % (test code 0.60 % = 7918413997) LYMPH % (test code = 23.9 % 736-9) MONO % (test code = 10.6 % 5905-5) EOS % (test code = 1.7 % 713-8) BASO % (test code = 0.7 % 706-2) GRAN MAT x10^3(ANC) 6.52 10*3/uL 1.88-7.09 (test code = 7756176498) IMM GRAN x10^3 (test 0.06 10*3/uL 0.00-0.06 code = 0249105309) LYMPH x10^3 (test code 2.49 10*3/uL 1.32-3.29 = 731-0) MONO x10^3 (test code 1.11 10*3/uL 0.33-0.92 H = 742-7) EOS x10^3 (test code = 0.18 10*3/uL 0.03-0.39 711-2) BASO x10^3 (test code 0.07 10*3/uL 0.01-0.07 = 704-7) Lab Interpretation Abnormal (test code = 79124-6) [facility] GLUCOSE (AUTOMATED)2021-01-24 16:46:38 Test Item Value Reference Range Interpretation Comments POCT GLU (test code = 1452102359) 224 mg/dL 70-110 H Lab Interpretation (test code = Abnormal 27759-3) [facility] GLUCOSE (AUTOMATED)2021-01-24 16:46:38 Test Item Value Reference Range Interpretation Comments POCT GLU (test code = 3610202144) 224 mg/dL 70-110 H Lab Interpretation (test code = Abnormal 28431-7) [facility] WITH [id number] 15:36:26 Test Item Value Reference Range Interpretation Comments WBC (test code = See_Comment [Automated message] 6690-2) The system [employer] generated this result transmitted ref erence range: 4.30 - 1 1.10 10*3/?L. The re ference range was not u sed to interpret this result as normal/abnor mal. RBC (test code = See_Comment [Automated message] 789-8) The system [employer] generated this result transmitted ref erence range: [...] RDW-SD (test code 42.4 fL 39.0-49.9 = 87433-1) RDW-CV (test code 13.2 % 12.0-15.5 = 788-0) PLT (test code = See_Comment [Automated message] 777-3) The system [employer] generated this result transmitted ref erence range: 166 - 35 8 10*3/?L. The re ference range was not u sed to interpret this result as normal/abnor mal. MPV (test code = 10.0 fL 9.5-12.9 23764-6) NRBC/100 WBC (test See_Comment [Automat ed message] code = 3049475578) The [employer] which generated this result transmitted ref erence range: 0.0 - 10 .0 /100 WBCs. The refer ence range was not u sed to interpret this result as normal/abnor mal. NRBC x10^3 (test <0.01 See_Comment [Automated message] code = 6686096468) The [employer] which generated this result transmitted ref erence range: 10*3/?L. The reference range was not used to interpr et this result as normal/abnormal . GRAN MAT (NEUT) % 55.6 % (test code = 770-8) IMM GRAN % (test 0.60 % code = 9503376356) LYMPH % (test code 30.0 % = 736-9) MONO % (test code 10.3 % = 5905-5) EOS % (test code = 2.8 % 713-8) BASO % (test code 0.7 % = 706-2) GRAN MAT 3.70 10*3/uL 1.88-7.09 x10^3(ANC) (test code = 2935145647) IMM GRAN x10^3 0.04 10*3/uL 0.00-0.06 (test code = 6925823670) LYMPH x10^3 (test 2.00 10*3/uL 1.32-3.29 code = 731-0) MONO x10^3 (test 0.69 10*3/uL 0.33-0.92 code = 742-7) EOS x10^3 (test 0.19 10*3/uL 0.03-0.39 code = 711-2) BASO x10^3 (test 0.05 10*3/uL 0.01-0.07 code = 704-7) [facility] WITH [id number] 15:36:26 Test Item Value Reference Range Interpretation Comments WBC (test code = See_Comment [Automated message] 6690-2) The system [employer] generated this result transmitted ref erence range: 4.30 - 1 1.10 10*3/?L. The re ference range was not u sed to interpret this result as normal/abnor mal. RBC (test code = See_Comment [Automated message] 789-8) The system [employer] generated this result transmitted ref erence range: [...] RDW-SD (test code 42.4 fL 39.0-49.9 = 83800-0) RDW-CV (test code 13.2 % 12.0-15.5 = 788-0) PLT (test code = See_Comment [Automated message] 777-3) The system whic h generated this result transmitted ref erence range: 166 - 35 8 10*3/?L. The re ference range was not u sed to interpret this result as normal/abnor mal. MPV (test code = 10.0 fL 9.5-12.9 49320-9) NRBC/100 WBC (test See_Comment [Automat ed message] code = 9599283236) The syste m which generated this result transmitted ref erence range: 0.0 - 10 .0 /100 WBCs. The refer ence range was not u sed to interpret this result as normal/abnor mal. NRBC x10^3 (test <0.01 See_Comment [Automated message] code = 7076632789) The syste m which generated this result transmitted ref erence range: 10*3/?L. The reference range was not used to interpr et this result as normal/abnormal . GRAN MAT (NEUT) % 55.6 % (test code = 770-8) IMM GRAN % (test 0.60 % code = 8664805475) LYMPH % (test code 30.0 % = 736-9) MONO % (test code 10.3 % = 5905-5) EOS % (test code = 2.8 % 713-8) BASO % (test code 0.7 % = 706-2) GRAN MAT 3.70 10*3/uL 1.88-7.09 x10^3(ANC) (test code = 7591568670) IMM GRAN x10^3 0.04 10*3/uL 0.00-0.06 (test code = 0307655411) LYMPH x10^3 (test 2.00 10*3/uL 1.32-3.29 code = 731-0) MONO x10^3 (test 0.69 10*3/uL 0.33-0.92 code = 742-7) EOS x10^3 (test 0.19 10*3/uL 0.03-0.39 code = 711-2) BASO x10^3 (test 0.05 10*3/uL 0.01-0.07 code = 704-7) [facility] GLUCOSE (AUTOMATED)2021-01-24 14:34:03 Test Item Value Reference Range Interpretation Comments POCT GLU (test code = 0438947297) 174 mg/dL 70-110 H Lab Interpretation (test code = Abnormal 93980-2) [facility] GLUCOSE (AUTOMATED)2021-01-24 14:34:03 Test Item Value Reference Range Interpretation Comments POCT GLU (test code = 7265442347) 174 mg/dL 70-110 H Lab Interpretation (test code = Abnormal 45228-0) [facility] Test Item Value Reference Range Interpretation Comments APPEARANCE (test code Clear Clear = 9227461758) COLOR (test code = Yellow Yellow 2709056315) PH (test code = 4.8-8.0 4676660895) SP GRAVITY (test code 1.003-1.030 = 8796610980) GLU U QUAL (test code Normal Normal = 7654174636) BLOOD (test code = Negative Negative 9783395995) KETONES (test code = Negative Negative 4818651343) PROTEIN (test code = Negative Negative 2887-8) UROBILIN (test code = Normal Normal 9834402956) BILIRUBIN (test code = Negative Negative 6784222488) NITRITE (test code = Negative Negative 0842899737) LEUK JONAS (test code Negative Negative = 6397032832) RBC/HPF (test code = See_Comment [Autom ated message] 4509950414) The system [employer] generated this result transmitted ref erence range: 0 - 3 HP F. The reference range was not used to interpr et this result as normal/abnormal . WBC/HPF (test code = <1 See_Comment [Autom ated message] 9870337548) The system [employer] generated this result transmitted ref erence range: 0 - 5 HP F. The reference range was not used to interpr et this result as normal/abnormal . BACTERIA (test code = Negative Negative 5875502174) SQ EPITH (test code = <1 HPF 6085001476) [facility]:30:31 Test Item Value Reference Range Interpretation Comments APPEARANCE (test code Clear Clear = 7161176218) COLOR (test code = Yellow Yellow 1273632886) PH (test code = 4.8-8.0 4518597300) SP GRAVITY (test code 1.003-1.030 = 4309600778) GLU U QUAL (test code Normal Normal = 9902939910) BLOOD (test code = Negative Negative 6751206020) KETONES (test code = Negative Negative 5663671923) PROTEIN (test code = Negative Negative 2887-8) UROBILIN (test code = Normal Normal 0750120562) BILIRUBIN (test code = Negative Negative 1115068794) NITRITE (test code = Negative Negative 0332350045) LEUK JONAS (test code Negative Negative = 9094810370) RBC/HPF (test code = See_Comment [Autom ated message] 6787954323) The system [employer] generated this result transmitted ref erence range: 0 - 3 HP F. The reference range was not used to interpr et this result as normal/abnormal . WBC/HPF (test code = <1 See_Comment [Autom ated message] 6462478639) The system [employer] generated this result transmitted ref erence range: 0 - 5 HP F. The reference range was not used to interpr et this result as normal/abnormal . BACTERIA (test code = Negative Negative 4670202517) SQ EPITH (test code = <1 HPF 5735671389) [facility] GLUCOSE (AUTOMATED)2021-01-24 13:14:11 Test Item Value Reference Range Interpretation Comments POCT GLU (test code = 3379539340) 184 mg/dL 70-110 H Lab Interpretation (test code = Abnormal 47437-3) [facility] GLUCOSE (AUTOMATED)2021-01-24 13:14:11 Test Item Value Reference Range Interpretation Comments POCT GLU (test code = 2004223829) 184 mg/dL 70-110 H Lab Interpretation (test code = Abnormal 24222-7) [facility]21-[facility]-24 12:17:17 Test Item Value Reference Range Interpretation Comments HGB A1C (test code = 8.9 % 4.0-5.7 H 4548-4) CLARICE (test code = CLARICE) Reference RangesNormal: <5.7%Prediabetes: 5.7 - 6.4%Diabetes: > 6.5% Lab Interpretation (test Abnormal code = 52262-2) [facility]2021-01-24 12:17:17 Test Item Value Reference Range Interpretation Comments HGB A1C (test code = 4548-4) 8.9 % 4.0-5.7 H CLARICE (test code = CLARICE) Lab Interpretation (test code = Abnormal 78301-3) [facility] (NA, K, CL, CO2, GLUCOSE, BUN, CREATININE, CA)2021-01-24 11:52:07 Test Item Value Reference Range Interpretation Comments NA (test code = 139 mmol/L 135-145 3392724127) K (test code = 4.0 mmol/L 3.5-5.0 6749388242) CL (test code = 103 mmol/L 98-108 8586256311) CO2 TOTAL (test code = 25 mmol/L 23-31 1360734756) AGAP (test code = 2-16 3317305116) BUN (test code = 14 mg/dL 7-23 4959048620) GLUCOSE (test code = 151 mg/dL 70-110 H 1433423101) CREATININE (test code = 0.70 mg/dL 0.50-1.04 2727982489) CALCIUM (test code = 9.7 mg/dL 8.6-10.6 3122492795) eGFR (test code = mL/min/1.73m2 4708348519) CLARICE (test code = CLARICE) Association of [...] tests). Lab Interpretation Abnormal (test code = 72426-7) [facility] METABOLIC PANEL (NA, K, CL, CO2, GLUCOSE, BUN, CREATININE, CA)2021-01-24 11:52:07 Test Item Value Reference Range Interpretation Comments NA (test code = 0782401988) 139 mmol/L 135-145 K (test code = 8871121120) 4.0 mmol/L 3.5-5.0 CL (test code = 9528981591) 103 mmol/L 98-108 CO2 TOTAL (test code = 0439328851) 25 mmol/L 23-31 AGAP (test code = 2489205804) 2-16 BUN (test code = 2119523442) 14 mg/dL 7-23 GLUCOSE (test code = 5141049149) 151 mg/dL 70-110 H CREATININE (test code = 0.70 mg/dL 0.50-1.04 4334100924) CALCIUM (test code = 6671893362) 9.7 mg/dL 8.6-10.6 eGFR (test code = 6183486319) mL/min/1.73m2 CLARICE (test code = CLARICE) Lab Interpretation (test code = Abnormal 02000-4) [facility] GLUCOSE (AUTOMATED)2021-01-23 21:32:29 Test Item Value Reference Range Interpretation Comments POCT GLU (test code = 4789789617) 111 mg/dL 70-110 H Lab Interpretation (test code = Abnormal 84330-7) [facility] GLUCOSE (AUTOMATED)2021-01-23 21:32:29 Test Item Value Reference Range Interpretation Comments POCT GLU (test code = 9749083615) 111 mg/dL 70-110 H Lab Interpretation (test code = Abnormal 65613-5) [facility] GLUCOSE (AUTOMATED)2021-01-23 16:53:41 Test Item Value Reference Range Interpretation Comments POCT GLU (test code = 9012113376) 190 mg/dL 70-110 H Lab Interpretation (test code = Abnormal 01808-2) [facility] GLUCOSE (AUTOMATED)2021-01-23 16:53:41 Test Item Value Reference Range Interpretation Comments POCT GLU (test code = 1188697567) 190 mg/dL 70-110 H Lab Interpretation (test code = Abnormal 50026-3) [facility] BRAIN WO [id number] 15:20:18 No acute intracranial abnormality. Preliminary Report [...] reviewed this study and agree with theabove report.[facility] [id number] 15:20:18 No acute intracranial abnormality. Preliminary Report [...] reviewed this study and agree with theabove report.[facility] GLUCOSE (AUTOMATED)2021-01-23 13:03:33 Test Item Value Reference Range Interpretation Comments POCT GLU (test code = 4620064995) 177 mg/dL 70-110 H Lab Interpretation (test code = Abnormal 59740-5) [facility] GLUCOSE (AUTOMATED)2021-01-23 13:03:33 Test Item Value Reference Range Interpretation Comments POCT GLU (test code = 7382384036) 177 mg/dL 70-110 H Lab Interpretation (test code = Abnormal 02285-4) [facility] WITH [id number] 10:24:38 Test Item Value Reference Range Interpretation Comments WBC (test code = See_Comment [Automated 0390-2) message] The sy stem which generated this result transmitted reference range : 4.30 - 11.10 10*3/?L. The reference range was not used to interpret this result as normal/abnormal . RBC (test code = See_Comment [Automated 179-8) message] The sy stem which generated this [...] RDW-SD (test code = 41.6 fL 39.0-49.9 52216-7) RDW-CV (test code = 13.3 % 12.0-15.5 788-0) PLT (test code = See_Comment L [Automated 777-3) message] The sy stem which generated this result transmitted reference range : 166 - 358 10*3/ ?L. The reference r alexus was not used to interpret this result as normal/abnormal . MPV (test code = 10.2 fL 9.5-12.9 63679-0) IPF % (test code = 2.7 % 1.3-7.7 Platelet count 6289261899) measured by fluorescence method. NRBC/100 WBC (test See_Comment [Automat ed code = 1522923910) message] The system which generated this result transmitted reference range : 0.0 - 10.0 /100 WBCs. The refer ence range was not u sed to interpret th is result as normal/abnormal . NRBC x10^3 (test code <0.01 See_Comment [Auto mated = 4684878775) message] The s ystem which generated this result transmitted reference range : 10*3/?L. The reference range was not used to interpret this result as normal/abnormal . GRAN MAT (NEUT) % 59.5 % (test code = 770-8) IMM GRAN % (test code 0.60 % = 6773070790) LYMPH % (test code = 27.3 % 736-9) MONO % (test code = 8.8 % 5905-5) EOS % (test code = 3.0 % 713-8) BASO % (test code = 0.8 % 706-2) GRAN MAT x10^3(ANC) 3.70 10*3/uL 1.88-7.09 (test code = 4662314570) IMM GRAN x10^3 (test 0.04 10*3/uL 0.00-0.06 code = 8734644214) LYMPH x10^3 (test code 1.70 10*3/uL 1.32-3.29 = 731-0) MONO x10^3 (test code 0.55 10*3/uL 0.33-0.92 = 742-7) EOS x10^3 (test code = 0.19 10*3/uL 0.03-0.39 711-2) BASO x10^3 (test code 0.05 10*3/uL 0.01-0.07 = 704-7) Lab Interpretation Abnormal (test code = 59803-7) [facility] WITH [id number] 10:24:38 Test Item Value Reference Range Interpretation Comments WBC (test code = See_Comment [Automated 0590-2) message] The sy stem which generated this result transmitted reference range : 4.30 - 11.10 10*3/?L. The reference range was not used to interpret this result as normal/abnormal . RBC (test code = See_Comment [Automated 379-8) message] The sy stem which generated this [...] RDW-SD (test code = 41.6 fL 39.0-49.9 28178-4) RDW-CV (test code = 13.3 % 12.0-15.5 788-0) PLT (test code = See_Comment L [Automated 777-3) message] The sy stem which generated this result transmitted reference range : 166 - 358 10*3/ ?L. The reference r alexus was not used to interpret this result as normal/abnormal . MPV (test code = 10.2 fL 9.5-12.9 14002-8) IPF % (test code = 2.7 % 1.3-7.7 9531737579) NRBC/100 WBC (test See_Comment [Automat ed code = 6254383056) message] The system which generated this result transmitted reference range : 0.0 - 10.0 /100 WBCs. The refer ence range was not u sed to interpret th is result as normal/abnormal . NRBC x10^3 (test code <0.01 See_Comment [Auto mated = 7166324595) message] The s ystem which generated this result transmitted reference range : 10*3/?L. The reference range was not used to interpret this result as normal/abnormal . GRAN MAT (NEUT) % 59.5 % (test code = 770-8) IMM GRAN % (test code 0.60 % = 0631418601) LYMPH % (test code = 27.3 % 736-9) MONO % (test code = 8.8 % 5905-5) EOS % (test code = 3.0 % 713-8) BASO % (test code = 0.8 % 706-2) GRAN MAT x10^3(ANC) 3.70 10*3/uL 1.88-7.09 (test code = 9722651008) IMM GRAN x10^3 (test 0.04 10*3/uL 0.00-0.06 code = 7873448565) LYMPH x10^3 (test code 1.70 10*3/uL 1.32-3.29 = 731-0) MONO x10^3 (test code 0.55 10*3/uL 0.33-0.92 = 742-7) EOS x10^3 (test code = 0.19 10*3/uL 0.03-0.39 711-2) BASO x10^3 (test code 0.05 10*3/uL 0.01-0.07 = 704-7) Lab Interpretation Abnormal (test code = 88955-8) [facility] METABOLIC PANEL (NA, K, CL, CO2, GLUCOSE, BUN, CREATININE, CA)2021-01-23 10:18:59 Test Item Value Reference Range Interpretation Comments NA (test code = 136 mmol/L 135-145 3655791629) K (test code = 4.5 mmol/L 3.5-5.0 1442209072) CL (test code = 105 mmol/L 98-108 7675590957) CO2 TOTAL (test code = 24 mmol/L 23-31 9105292484) AGAP (test code = 2-16 7840412861) BUN (test code = 12 mg/dL 7-23 4708162598) GLUCOSE (test code = 176 mg/dL 70-110 H 6999799768) CREATININE (test code = 0.65 mg/dL 0.50-1.04 3053401444) CALCIUM (test code = 9.2 mg/dL 8.6-10.6 9790227660) eGFR (test code = mL/min/1.73m2 8793284623) CLARICE (test code = CLARICE) Association of [...] tests). Lab Interpretation Abnormal (test code = 02716-7) [facility] METABOLIC PANEL (NA, K, CL, CO2, GLUCOSE, BUN, CREATININE, CA)2021-01-23 10:18:59 Test Item Value Reference Range Interpretation Comments NA (test code = 1675977973) 136 mmol/L 135-145 K (test code = 0963421231) 4.5 mmol/L 3.5-5.0 CL (test code = 7677396587) 105 mmol/L 98-108 CO2 TOTAL (test code = 4131360008) 24 mmol/L 23-31 AGAP (test code = 3117690742) 2-16 BUN (test code = 5502466198) 12 mg/dL 7-23 GLUCOSE (test code = 8160479698) 176 mg/dL 70-110 H CREATININE (test code = 0.65 mg/dL 0.50-1.04 8524432375) CALCIUM (test code = 7005814171) 9.2 mg/dL 8.6-10.6 eGFR (test code = 6158413293) mL/min/1.73m2 CLARICE (test code = CLARICE) Lab Interpretation (test code = Abnormal 86570-7) [facility] GLUCOSE (AUTOMATED)2021-01-23 01:32:46 Test Item Value Reference Range Interpretation Comments POCT GLU (test code = 6140193615) 140 mg/dL 70-110 H Lab Interpretation (test code = Abnormal 71704-8) [facility] GLUCOSE (AUTOMATED)2021-01-23 01:32:46 Test Item Value Reference Range Interpretation Comments POCT GLU (test code = 8715461625) 140 mg/dL 70-110 H Lab Interpretation (test code = Abnormal 84885-1) [facility] GLUCOSE (AUTOMATED)2021-01-22 21:40:24 Test Item Value Reference Range Interpretation Comments POCT GLU (test code = 4676306425) 139 mg/dL 70-110 H Lab Interpretation (test code = Abnormal 58119-0) [facility] GLUCOSE (AUTOMATED)2021-01-22 21:40:24 Test Item Value Reference Range Interpretation Comments POCT GLU (test code = 4120075660) 139 mg/dL 70-110 H Lab Interpretation (test code = Abnormal 39531-1) [facility] GLUCOSE (AUTOMATED)2021-01-22 18:00:29 Test Item Value Reference Range Interpretation Comments POCT GLU (test code = 2915249908) 216 mg/dL 70-110 H Lab Interpretation (test code = Abnormal 30145-4) [facility] GLUCOSE (AUTOMATED)2021-01-22 18:00:29 Test Item Value Reference Range Interpretation Comments POCT GLU (test code = 2499155543) 216 mg/dL 70-110 H Lab Interpretation (test code = Abnormal 19470-5) [facility] GLUCOSE (AUTOMATED)2021-01-22 13:28:29 Test Item Value Reference Range Interpretation Comments POCT GLU (test code = 3055632859) 200 mg/dL 70-110 H Lab Interpretation (test code = Abnormal 89090-4) [facility] GLUCOSE (AUTOMATED)2021-01-22 13:28:29 Test Item Value Reference Range Interpretation Comments POCT GLU (test code = 7872345225) 200 mg/dL 70-110 H Lab Interpretation (test code = Abnormal 46452-2) [facility] Metabolic Panel (NA, K, CL, CO2, GLUCOSE, BUN, CREATININE, CA)2021-01-22 09:27:44 Test Item Value Reference Range Interpretation Comments NA (test code = 137 mmol/L 135-145 8688108913) K (test code = 4.2 mmol/L 3.5-5.0 9394917150) CL (test code = 108 mmol/L 98-108 7939714122) CO2 TOTAL (test code = 26 mmol/L 23-31 6790577431) AGAP (test code = 2-16 5613746948) BUN (test code = 11 mg/dL 7-23 5678624524) GLUCOSE (test code = 161 mg/dL 70-110 H 1312353069) CREATININE (test code = 0.63 mg/dL 0.50-1.04 7644804731) CALCIUM (test code = 8.5 mg/dL 8.6-10.6 L 6814397577) eGFR (test code = mL/min/1.73m2 3296616683) CLARICE (test code = CLARICE) Association of [...] tests). Lab Interpretation Abnormal (test code = 50387-9) [facility] Metabolic Panel (NA, K, CL, CO2, GLUCOSE, BUN, CREATININE, CA)2021-01-22 09:27:44 Test Item Value Reference Range Interpretation Comments NA (test code = 4182002899) 137 mmol/L 135-145 K (test code = 4504937816) 4.2 mmol/L 3.5-5.0 CL (test code = 6066606988) 108 mmol/L 98-108 CO2 TOTAL (test code = 1270501530) 26 mmol/L 23-31 AGAP (test code = 4809280250) 2-16 BUN (test code = 4733283864) 11 mg/dL 7-23 GLUCOSE (test code = 6780275867) 161 mg/dL 70-110 H CREATININE (test code = 0.63 mg/dL 0.50-1.04 2858079813) CALCIUM (test code = 3541361088) 8.5 mg/dL 8.6-10.6 L eGFR (test code = 3070743863) mL/min/1.73m2 CLARICE (test code = CLARICE) Lab Interpretation (test code = Abnormal 75906-6) [facility] with [id number] 09:15:44 Test Item Value Reference Range Interpretation [...] RDW-SD (test code = 42.1 fL 39.0-49.9 39951-4) RDW-CV (test code = 13.4 % 12.0-15.5 788-0) PLT (test code = See_Comment [Automated 777-3) message] The sy stem which generated this result transmitted reference range : 166 - 358 10*3/ ?L. The reference r alexus was not used to interpret this result as normal/abnormal . MPV (test code = 9.4 fL 9.5-12.9 L 33616-3) NRBC/100 WBC (test See_Comment [Automat ed code = 1964056056) message] The system which generated this result transmitted reference range : 0.0 - 10.0 /100 WBCs. The refer ence range was not u sed to interpret th is result as normal/abnormal . NRBC x10^3 (test code <0.01 See_Comment [Auto mated = 4231741844) message] The s ystem which generated this result transmitted reference range : 10*3/?L. The reference range was not used to interpret this result as normal/abnormal . GRAN MAT (NEUT) % 52.5 % (test code = 770-8) IMM GRAN % (test code 0.60 % = 4546276673) LYMPH % (test code = 31.2 % 736-9) MONO % (test code = 11.2 % 5905-5) EOS % (test code = 3.5 % 713-8) BASO % (test code = 1.0 % 706-2) GRAN MAT x10^3(ANC) 2.58 10*3/uL 1.88-7.09 (test code = 0481961563) IMM GRAN x10^3 (test 0.03 10*3/uL 0.00-0.06 code = 9123332944) LYMPH x10^3 (test code 1.53 10*3/uL 1.32-3.29 = 731-0) MONO x10^3 (test code 0.55 10*3/uL 0.33-0.92 = 742-7) EOS x10^3 (test code = 0.17 10*3/uL 0.03-0.39 711-2) BASO x10^3 (test code 0.05 10*3/uL 0.01-0.07 = 704-7) Lab Interpretation Abnormal (test code = 39674-8) [facility] with [id number] 09:15:44 Test Item Value Reference Range Interpretation [...] RDW-SD (test code = 42.1 fL 39.0-49.9 48631-0) RDW-CV (test code = 13.4 % 12.0-15.5 788-0) PLT (test code = See_Comment [Automated 777-3) message] The sy stem which generated this result transmitted reference range : 166 - 358 10*3/ ?L. The reference r alexus was not used to interpret this result as normal/abnormal . MPV (test code = 9.4 fL 9.5-12.9 L 82488-3) NRBC/100 WBC (test See_Comment [Automat ed code = 1989703851) message] The system which generated this result transmitted reference range : 0.0 - 10.0 /100 WBCs. The refer ence range was not u sed to interpret th is result as normal/abnormal . NRBC x10^3 (test code <0.01 See_Comment [Auto mated = 0161644909) message] The s ystem which generated this result transmitted reference range : 10*3/?L. The reference range was not used to interpret this result as normal/abnormal . GRAN MAT (NEUT) % 52.5 % (test code = 770-8) IMM GRAN % (test code 0.60 % = 8882704789) LYMPH % (test code = 31.2 % 736-9) MONO % (test code = 11.2 % 5905-5) EOS % (test code = 3.5 % 713-8) BASO % (test code = 1.0 % 706-2) GRAN MAT x10^3(ANC) 2.58 10*3/uL 1.88-7.09 (test code = 7573935672) IMM GRAN x10^3 (test 0.03 10*3/uL 0.00-0.06 code = 7581879818) LYMPH x10^3 (test code 1.53 10*3/uL 1.32-3.29 = 731-0) MONO x10^3 (test code 0.55 10*3/uL 0.33-0.92 = 742-7) EOS x10^3 (test code = 0.17 10*3/uL 0.03-0.39 711-2) BASO x10^3 (test code 0.05 10*3/uL 0.01-0.07 = 704-7) Lab Interpretation Abnormal (test code = 85120-5) [facility] GLUCOSE (AUTOMATED)2021-01-22 01:48:46 Test Item Value Reference Range Interpretation Comments POCT GLU (test code = 8795503138) 218 mg/dL 70-110 H Lab Interpretation (test code = Abnormal 55997-8) [facility] GLUCOSE (AUTOMATED)2021-01-22 01:48:46 Test Item Value Reference Range Interpretation Comments POCT GLU (test code = 4047917453) 218 mg/dL 70-110 H Lab Interpretation (test code = Abnormal 01653-7) [facility] [id number] 00:23:56No acute or adverse change compared to the prior exam. AFC: 45578.RL: 8228, I can be reached at [phone]. Ordering Physician: Carmen Brennan History: Shortness of [...] adverse change compared to the prior exam.AFC: 51488.RL: 8228, I can be reached at [phone]. [facility] [id number] 00:23:56No acute or adverse change compared to the prior exam. AFC: 61584.RL: 8228, I can be reached at [phone]. Ordering Physician: Carmen Brennan History: Shortness of [...] adverse change compared to the prior exam.AFC: 04289.RL: 8228, I can be reached at [phone]. [facility] GLUCOSE (AUTOMATED)2021-01-21 22:25:03 Test Item Value Reference Range Interpretation Comments POCT GLU (test code = 0251833802) 104 mg/dL 70-110 Lab Interpretation (test code = Normal 20781-5) [facility] GLUCOSE (AUTOMATED)2021-01-21 22:25:03 Test Item Value Reference Range Interpretation Comments POCT GLU (test code = 3124535588) 186 mg/dL 70-110 H Lab Interpretation (test code = Abnormal 86521-7) [facility] GLUCOSE (AUTOMATED)2021-01-21 22:25:03 Test Item Value Reference Range Interpretation Comments POCT GLU (test code = [id number]) 104 mg/dL 70-110 Lab Interpretation (test code = Normal 46281-4) [facility] GLUCOSE (AUTOMATED)2021-01-21 22:25:03 Test Item Value Reference Range Interpretation Comments POCT GLU (test code = [id number]) 186 mg/dL 70-110 H Lab Interpretation (test code = Abnormal 53855-6) [facility] GLUCOSE (AUTOMATED)2021-01-21 22:25:02 Test Item Value Reference Range Interpretation Comments POCT GLU (test code = [id number]) 81 mg/dL 70-110 Lab Interpretation (test code = Normal 92355-9) [facility] GLUCOSE (AUTOMATED)2021-01-21 22:25:02 Test Item Value Reference Range Interpretation Comments POCT GLU (test code = [id number]) 81 mg/dL 70-110 Lab Interpretation (test code = Normal 72528-8) [facility] GLUCOSE (AUTOMATED)2021-01-21 22:24:57 Test Item Value Reference Range Interpretation Comments POCT GLU (test code = [id number]) 205 mg/dL 70-110 H Lab Interpretation (test code = Abnormal 80434-7) [facility] GLUCOSE (AUTOMATED)2021-01-21 22:24:57 Test Item Value Reference Range Interpretation Comments POCT GLU (test code = 3821247317) 205 mg/dL 70-110 H Lab Interpretation (test code = Abnormal 51956-0) [facility] ANGIOGRAM [id number] 16:24:55 No intracranial proximal large vessel occlusion. [...] ? COMPARISON: None. FINDINGS: CTA of the [place] reveals no intracranial proximal large [...] injected intravenously. COMPARISON: None.FINDINGS: CTA of the [place] reveals no intracranial proximal large [...] proximal large vessel occlusion.No significant extracranial s tenosis.[facility] [id number] 16:24:55 No intracranial proximal large vessel occlusion. [...] ? COMPARISON: None. FINDINGS: CTA of the [place] reveals no intracranial proximal large [...] injected intravenously. COMPARISON: None.FINDINGS: CTA of the [place] reveals no intracranial proximal large [...] proximal large vessel occlusion.No significant extracranial s tenosis.[facility] [id number] 16:24:55 No intracranial proximal large vessel occlusion. [...] ? COMPARISON: None. FINDINGS: CTA of the [place] reveals no intracranial proximal large [...] injected intravenously. COMPARISON: None.FINDINGS: CTA of the [place] reveals no intracranial proximal large [...] proximal large vessel occlusion.No significant extracranial s tenosis.[facility] [id number] 16:24:55 No intracranial proximal large vessel occlusion. [...] ? COMPARISON: None. FINDINGS: CTA of the [place] reveals no intracranial proximal large [...] injected intravenously. COMPARISON: None.FINDINGS: CTA of the [place] of [place] reveals no intracranial proximal large [...] proximal large vessel occlusion.No significant extracranial s tenosis.[facility] (NA, K, CL, CO2, GLUCOSE, BUN, CREATININE, CA)2021-01-21 15:03:17 Test Item Value Reference Range Interpretation Comments NA (test code = 137 mmol/L 135-145 4861922613) K (test code = 4.3 mmol/L 3.5-5.0 1592954486) CL (test code = 102 mmol/L 98-108 6606623511) CO2 TOTAL (test code 25 mmol/L 23-31 = 1688423631) AGAP (test code = 2-16 4928175158) BUN (test code = 15 mg/dL 7-23 9839635750) GLUCOSE (test code = 101 mg/dL 70-110 6915005946) CREATININE (test code 0.67 mg/dL 0.50-1.04 = 9629975526) CALCIUM (test code = 9.2 mg/dL 8.6-10.6 0403061003) eGFR (test code = mL/min/1.73m2 8008237797) CLARICE (test code = CLARICE) Association of [...] or urine or abnormalities in imaging tests). [facility] METABOLIC PANEL (NA, K, CL, CO2, GLUCOSE, BUN, CREATININE, CA)2021-01-21 15:03:17 Test Item Value Reference Range Interpretation Comments NA (test code = 0703814018) 137 mmol/L 135-145 K (test code = 9193592918) 4.3 mmol/L 3.5-5.0 CL (test code = 7173683131) 102 mmol/L 98-108 CO2 TOTAL (test code = 2007533627) 25 mmol/L 23-31 AGAP (test code = 5036675028) 2-16 BUN (test code = 9715632055) 15 mg/dL 7-23 GLUCOSE (test code = 5293620098) 101 mg/dL 70-110 CREATININE (test code = 0.67 mg/dL 0.50-1.04 3204164827) CALCIUM (test code = 0209761144) 9.2 mg/dL 8.6-10.6 eGFR (test code = 1855564973) mL/min/1.73m2 CLARICE (test code = CLARICE) [facility] GLUCOSE (AUTOMATED)2021-01-21 13:20:02 Test Item Value Reference Range Interpretation Comments POCT GLU (test code = 7371369522) 224 mg/dL 70-110 H Lab Interpretation (test code = Abnormal 58340-3) [facility] GLUCOSE (AUTOMATED)2021-01-21 13:20:02 Test Item Value Reference Range Interpretation Comments POCT GLU (test code = 9512166442) 224 mg/dL 70-110 H Lab Interpretation (test code = Abnormal 58048-2) [facility] [id number] 12:28:29 Test Item Value Reference Range Interpretation Comments TSH (test code = See_Comment Biotin has been 9481524845) reported to cau se a negative bias, interpret resul ts relative to pat bebeto's use of biotin. [Automated mess age] The system [employer] generated this result transmitted ref erence range: 0.45 - 4 .70 mIU/L. The refe rence range was not u sed to interpret this result as normal/abnor mal. Lab Interpretation (test Normal code = 35804-0) [facility] ST[facility] [id number] 12:28:29 Test Item Value Reference Range Interpretation Comments TSH (test code = See_Comment [Automated message] 0755967419) The system [employer] generated this result transmitted ref erence range: 0.45 - 4 .70 mIU/L. The refe rence range was not u sed to interpret this result as normal/abnor mal. Lab Interpretation (test Normal code = 12815-4) [facility] TexasLaneic Acid Whole [id number] 09:09:36 Test Item Value Reference Range Interpretation Comments LACTIC ACID (test code = 2.13 mmol/L 0.50-2.20 4151376387) Lab Interpretation (test code = Normal 93263-7) [facility] TexasL[facility] Acid Whole [id number] 09:09:36 Test Item Value Reference Range Interpretation Comments LACTIC ACID (test code = 2.13 mmol/L 0.50-2.20 2387135883) Lab Interpretation (test code = Normal 21622-0) [facility] ONLY COVID [id number] 02:31:30COVID DMT InterpretationInterpretation/Recommendations:Molecular NAAT Tests for Active [...] 1-2 weeks prior to antibody testing, any cecfhnzwMJAA-HzW-9 IgG antibody result is likely due to [...] COVID-19 testing the patient has had at [facility], including molecular NAAT testing (more commonly known as PCR testing and Rapid ID Now testing) and antibody testing. It does not take into account any testing that a patient has had outside of the [facility] medical record. [facility] LABORATORY SERVICESCOVID [id number] Rapid ID NOW (no units) ? ? Date ? Value ? 01/20/2021 ? Not Detected ? ? ? 09/20/2019 ? Not Detected ? [facility] SERVICESW[facility] TexasLAB ONLY COVID [id number] 02:31:30COVID DMT InterpretationInterpretation/Recommendations:Molecular NAAT Tests for Active [...] COVID-19 testing the patient has had at [facility], including molecular NAAT testing (more commonly known as PCR testing and Rapid ID Now testing) and antibody testing. It does not take into account any testing that a patient has had outside of the [facility] medical record. [facility] LABORATORY SERVICESCOVID CofrycpXWKN-OyY-6 Rapid ID NOW (no units) ? ? Date ? Value ? 01/20/2021 ? Not Detected ? ? ? 09/20/2019 ? Not Detected ? [facility] LABORATORY SERVICESUnB[facility] IrvingXR CHEST 1 [id number] 02:12:27Impression: No acute abnormalities evident. RL: 460 [...] noted to be status post cervical fusion. [facility], Radiant Results Inft User - 01/20/2021 9:13 [...] post cervical fusion.IMPRESSIONImpression:No acute abnormalities evident.RL: 460 [facility] CHEST 1 [id number] 02:12:27Impression: No acute abnormalities evident. RL: 460 [...] post cervical fusion.IMPRESSIONImpression:No acute abnormalities evident.RL: 460 [facility]CT ABDOMEN PELVIS W [id number] 02:03:44Impression: 1. No prior studies available.2. Cholecystectomy [...] note might be differentfrom the original.Ordering Physician: WAKILI S YARIMAHistory: Epigastric pain Technique: CT abdomen and pelvis [...] Moderate colonic fecal retention.RL: 460End of Report UnB[facility] IrvingCT ABDOMEN PELVIS W [id number] 02:03:44Impression: 1. No prior studies available.2. Cholecystectomy [...] note might be differentfrom the original.Ordering Physician: WAKILI S YARIMAHistory: Epigastric pain Technique: CT abdomen and pelvis [...] Moderate colonic fecal retention.RL: 460End of Report UnB[facility] IrvingCT HEAD WO [id number] 23:16:36No acute findings. HISTORY:Neuro deficit, acute, stroke [...] extracranial tissues demonstrate no acute findings.IMPRESSIONNo acute findings.[facility]CT HEAD WO [id number] 23:16:36No acute findings. HISTORY:Neuro deficit, acute, stroke suspected TECHNIQUE: Noncontrast head CT wasperformed. COMPARISON:None FINDINGS: The ventricles and sulci are appropriate for patient's age. There is no midline shift. The basal cisterns are preserved. No largevascular territory infarction, intracranial hemorrhage or mass effect isseen. The extracranial tissues demonstrate no acute findings. [facility], [facility] - 01/20/2021 6:17 PM CDTFormatting of this note might be different fromthe original.HISTORY:Neuro deficit, acute, stroke suspected TECHNIQUE: Noncontrast head CT was performed.COMPARISON:NoneFINDINGS:The ventricles and sulci are appropriate for patient's age.There is no midline shift. The basal cisterns are preserved. No largevascular territory infarction, intracranial hemorrhage or mass effect isseen.The extracranial tissues demonstrate no acute findings.IMPRESSIONNo acute findings.[facility] TexasCOVID-[facility] (ID NOW RAPID TESTING)2021-01-20 23:07:03 Test Item Value Reference Range Interpretation Comments SARS-CoV-2 Rapid ID NOW Not Detected Not Detected (test code = 56092-4) CLARICE (test code = CLARICE) ID NOW COVID-19 Assay is an isothermal nucleic acid amplification test intended for the qualitative detection of nucleic acid from SARS-CoV-2 viral RNA in nasopharyngeal (MAC ARTIST) specimens. It is used under Emergency Use [...] indicated. Lab Interpretation Normal (test code = 31051-8) [facility] (ID NOW RAPID TESTING)2021-01-20 23:07:03 Test Item Value Reference Range Interpretation Comments SARS-CoV-2 Rapid ID NOW (test Not Detected Not Detected code = 77375-3) CLARICE (test code = CLARICE) Lab Interpretation (test code = Normal 16271-2) [facility] TexasUrinalysis2021-08-20 22:53:37 Test Item Value Reference Range Interpretation Comments APPEARANCE (test code = Hazy Clear A 6783141465) COLOR (test code = Yellow Yellow 9274201798) PH (test code = 4.8-8.0 7915103021) SP GRAVITY (test code = 1.003-1.030 5826848050) GLU U QUAL (test code = Normal Normal 6301710369) BLOOD (test code = Negative Negative 7583805993) KETONES (test code = 5 mg/dL Negative A 0394558221) PROTEIN (test code = Negative Negative 2887-8) UROBILIN (test code = Normal Normal 9299919142) BILIRUBIN (test code = Negative Negative 7367461964) NITRITE (test code = Positive Negative A 2363763872) LEUK JONAS (test code = 75/uL Negative A 1714059031) RBC/HPF (test code = See_Comment [Autom ated message] 0536606603) The system [employer] generated this result transmitted ref erence range: 0 - 3 HP F. The reference range was not used to int erpret this result as normal/abnormal . WBC/HPF (test code = See_Comment [Autom ated message] 0499603993) The system [employer] generated this result transmitted ref erence range: 0 - 5 HP F. The reference range was not used to int erpret this result as normal/abnormal . BACTERIA (test code = Many Negative A 9925065192) MUCOUS (test code = Slight Negative LPF A 8618345179) SQ EPITH (test code = HPF 6718938867) Lab Interpretation (test Abnormal code = 93954-5) [facility] TexasUrinalysis2021-08-20 22:53:37 Test Item Value Reference Range Interpretation Comments APPEARANCE (test code = Hazy Clear A 8153384574) COLOR (test code = Yellow Yellow 1005395396) PH (test code = 4.8-8.0 9140685586) SP GRAVITY (test code = 1.003-1.030 1413775915) GLU U QUAL (test code = Normal Normal 3029064433) BLOOD (test code = Negative Negative 1742732041) KETONES (test code = 5 mg/dL Negative A 6968566091) PROTEIN (test code = Negative Negative 2887-8) UROBILIN (test code = Normal Normal 4720092981) BILIRUBIN (test code = Negative Negative 7258567867) NITRITE (test code = Positive Negative A 8912381517) LEUK JONAS (test code = 75/uL Negative A 8221843983) RBC/HPF (test code = See_Comment [Autom ated message] 8948379449) The system [employer] generated this result transmitted ref erence range: 0 - 3 HP F. The reference range was not used to int erpret this result as normal/abnormal . WBC/HPF (test code = See_Comment [Autom ated message] 3261967242) The system [employer] generated this result transmitted ref erence range: 0 - 5 HP F. The reference range was not used to int erpret this result as normal/abnormal . BACTERIA (test code = Many Negative A 7538706482) MUCOUS (test code = Slight Negative LPF A 4327304844) SQ EPITH (test code = HPF 8025605170) Lab Interpretation (test Abnormal code = 34694-9) [facility] TexasTROPONIN [id number] 22:51:39 Test Item Value Reference Interpretation Comments Range TROPONIN I (test 0.002 ng/mL See_Comment [Automated code = 8732805973) message] The system which generated this result [...] biotin. Lab Interpretation Normal (test code = 37109-4) [facility] TexasTROPONIN [id number] 22:51:39 Test Item Value Reference Range Interpretation Comments TROPONIN I (test code = 0.002 ng/mL See_Comment [Au tomated 2183218054) message] The sy stem which generated this result transmitted reference range : <=0.034. The reference range was not used to interpret this result as normal/abnormal . CLARICE (test code = CLARICE) Lab Interpretation Normal (test code = 49689-7) [facility] TexasCOMP. Metabolic Panel (31391)2021-01-20 22:39:56 Test Item Value Reference Range Interpretation Comments NA (test code = 137 mmol/L 135-145 8718995675) K (test code = 4.1 mmol/L 3.5-5.0 8325537594) CL (test code = 100 mmol/L 98-108 9532924448) CO2 TOTAL (test code = 24 mmol/L 23-31 1986830124) AGAP (test code = 2-16 1751281589) BUN (test code = 15 mg/dL 7-23 0630526486) GLUCOSE (test code = 163 mg/dL 70-110 H 8808643117) CREATININE (test code = 0.71 mg/dL 0.50-1.04 2029861226) TOTAL BILI (test code = 0.6 mg/dL 0.1-1.7 9108958462) CALCIUM (test code = 9.7 mg/dL 8.6-10.6 5189964444) T PROTEIN (test code = 7.5 g/dL 6.3-8.2 2417820528) ALBUMIN (test code = 4.6 g/dL 3.5-5.0 7077667164) ALK PHOS (test code = 139 U/L 34-122 H 1848333230) ALTv (test code = 27 U/L 5-35 1742-6) AST(SGOT) (test code = 28 U/L 13-40 6914510080) eGFR (test code = mL/min/1.73m2 8954484172) CLARICE (test code = CLARICE) Association of [...] tests). Lab Interpretation Abnormal (test code = 11443-9) [facility] Metabolic Panel (72605)2021-01-20 22:39:56 Test Item Value Reference Range Interpretation Comments NA (test code = 4035921376) 137 mmol/L 135-145 K (test code = 3231768340) 4.1 mmol/L 3.5-5.0 CL (test code = 1580316644) 100 mmol/L 98-108 CO2 TOTAL (test code = 5279866496) 24 mmol/L 23-31 AGAP (test code = 8875851045) 2-16 BUN (test code = 7495034708) 15 mg/dL 7-23 GLUCOSE (test code = 5046436658) 163 mg/dL 70-110 H CREATININE (test code = 0.71 mg/dL 0.50-1.04 3457702423) TOTAL BILI (test code = 0.6 mg/dL 0.1-1.3 7624183193) CALCIUM (test code = 5879669562) 9.7 mg/dL 8.6-10.6 T PROTEIN (test code = 1724719479) 7.5 g/dL 6.3-8.2 ALBUMIN (test code = 9566915348) 4.6 g/dL 3.5-5.0 ALK PHOS (test code = 1184068943) 139 U/L 34-122 H ALTv (test code = 1742-6) 27 U/L 5-35 AST(SGOT) (test code = 3692532861) 28 U/L 13-40 eGFR (test code = 3696532430) mL/min/1.73m2 CLARICE (test code = CLARICE) Lab Interpretation (test code = Abnormal 44360-5) [facility] with [id number] 22:27:13 Test Item Value Reference Range Interpretation Comments WBC (test code = See_Comment [Automated message] 6690-2) The system [employer] generated this result transmitted ref erence range: 4.30 - 1 1.10 10*3/?L. The re ference range was not u sed to interpret this result as normal/abnor mal. RBC (test code = See_Comment [Automated message] 789-8) The system [employer] generated this result transmitted ref erence range: [...] RDW-SD (test code 42.1 fL 39.0-49.9 = 69462-6) RDW-CV (test code 13.3 % 12.0-15.5 = 788-0) PLT (test code = See_Comment [Automated message] 777-3) The system [employer]alind[employer] h generated this result transmitted ref erence range: 166 - 35 8 10*3/?L. The re ference range was not u sed to interpret this result as normal/abnor mal. MPV (test code = 9.7 fL 9.5-12.9 02945-9) NRBC/100 WBC (test See_Comment [Automat ed message] code = 7826115348) The syste m which generated this result transmitted ref erence range: 0.0 - 10 .0 /100 WBCs. The refer ence range was not u sed to interpret this result as normal/abnor mal. NRBC x10^3 (test <0.01 See_Comment [Automated message] code = 4616690866) The syste m which generated this result transmitted ref erence range: 10*3/?L. The reference range was not used to interpr et this result as normal/abnormal . GRAN MAT (NEUT) % 59.6 % (test code = 770-8) IMM GRAN % (test 0.70 % code = 6537247878) LYMPH % (test code 27.3 % = 736-9) MONO % (test code 9.4 % = 5905-5) EOS % (test code = 2.0 % 713-8) BASO % (test code 1.0 % = 706-2) GRAN MAT 4.39 10*3/uL 1.88-7.09 x10^3(ANC) (test code = 9853143680) IMM GRAN x10^3 0.05 10*3/uL 0.00-0.06 (test code = 6692160346) LYMPH x10^3 (test 2.01 10*3/uL 1.32-3.29 code = 731-0) MONO x10^3 (test 0.69 10*3/uL 0.33-0.92 code = 742-7) EOS x10^3 (test 0.15 10*3/uL 0.03-0.39 code = 711-2) BASO x10^3 (test 0.07 10*3/uL 0.01-0.07 code = 704-7) [facility] with [id number] 22:27:13 Test Item Value Reference Range Interpretation Comments WBC (test code = See_Comment [Automated message] 8676-2) The system [employer] generated this result transmitted ref erence range: 4.30 - 1 1.10 10*3/?L. The re ference range was not u sed to interpret this result as normal/abnor mal. RBC (test code = See_Comment [Automated message] 689-8) The system [employer] generated this result transmitted ref erence range: [...] RDW-SD (test code 42.1 fL 39.0-49.9 = 08821-4) RDW-CV (test code 13.3 % 12.0-15.5 = 788-0) PLT (test code = See_Comment [Automated message] 457-3) The system [employer] generated this result transmitted ref erence range: 166 - 35 8 10*3/?L. The re ference range was not u sed to interpret this result as normal/abnor mal. MPV (test code = 9.7 fL 9.5-12.9 74187-1) NRBC/100 WBC (test See_Comment [Automat ed message] code = 2941379446) The syste m which generated this result transmitted ref erence range: 0.0 - 10 .0 /100 WBCs. The refer ence range was not u sed to interpret this result as normal/abnor mal. NRBC x10^3 (test <0.01 See_Comment [Automated message] code = 0966630431) The syste m which generated this result transmitted ref erence range: 10*3/?L. The reference range was not used to interpr et this result as normal/abnormal . GRAN MAT (NEUT) % 59.6 % (test code = 770-8) IMM GRAN % (test 0.70 % code = 7353035489) LYMPH % (test code 27.3 % = 736-9) MONO % (test code 9.4 % = 5905-5) EOS % (test code = 2.0 % 713-8) BASO % (test code 1.0 % = 706-2) GRAN MAT 4.39 10*3/uL 1.88-7.09 x10^3(ANC) (test code = 1174308829) IMM GRAN x10^3 0.05 10*3/uL 0.00-0.06 (test code = 8485554610) LYMPH x10^3 (test 2.01 10*3/uL 1.32-3.29 code = 731-0) MONO x10^3 (test 0.69 10*3/uL 0.33-0.92 code = 742-7) EOS x10^3 (test 0.15 10*3/uL 0.03-0.39 code = 711-2) BASO x10^3 (test 0.07 10*3/uL 0.01-0.07 code = 704-7) [facility] BranchL[facility] Whole [id number] 22:15:02 Test Item Value Reference Range Interpretation Comments LACTIC ACID (test code = 3.26 mmol/L 0.50-2.20 H 3406481613) Lab Interpretation (test code = Abnormal 71057-4) [facility] Whole [id number] 22:15:02 Test Item Value Reference Range Interpretation Comments LACTIC ACID (test code = 3.26 mmol/L 0.50-2.20 H 0245162390) Lab Interpretation (test code = Abnormal 69656-3) [facility]CORON[facility]IR[facility] COVID-19 [id number] 20:16:00 Test Item Value Reference Range Interpretation Comments SARS-CoV-2 (test code = Not Detected Not Detected 25949-7) CLARICE (test code = CLARICE) ID NOW COVID-19 Assay is an isothermal nucleic acid amplification test intended for the qualitative detection of nucleic acid from SARS-CoV-2 viral RNA in nasopharyngeal (MAC ARTIST) specimens. It is used under Emergency Use [...] indicated. Lab Interpretation Normal (test code = 11060-0) [facility] TexasURINALYSIS2020-04-19 20:11:00 Test Item Value Reference Range Interpretation Comments APPEARANCE (test code = Clear Clear 2134819145) COLOR (test code = Yellow Yellow 9875315125) PH (test code = 4.8-8.0 3066840088) SP GRAVITY (test code = 1.003-1.030 4966348785) GLU U QUAL (test code = 500 mg/dL Normal A 1632559464) BLOOD (test code = Negative Negative 1666090648) KETONES (test code = Negative Negative 3223878636) PROTEIN (test code = Negative Negative 2887-8) UROBILIN (test code = Normal Normal 2805167973) BILIRUBIN (test code = Negative Negative 8604486573) NITRITE (test code = Positive Negative A 8209885121) LEUK JONAS (test code = Negative Negative 8428075004) RBC/HPF (test code = <1 See_Comment [Autom ated message] 8959454603) The system [employer] generated this result transmit beth reference range : 0 - 3 HPF. The refe rence range was not u sed to interpret th is result as normal/abnormal . WBC/HPF (test code = See_Comment [Autom ated message] 1111192151) The system [employer] generated this result transmit beth reference range : 0 - 5 HPF. The refe rence range was not u sed to interpret th is result as normal/abnormal . BACTERIA (test code = Few Negative A 1701210210) MUCOUS (test code = Slight Negative LPF A 3523630276) SQ EPITH (test code = HPF 2645976600) Lab Interpretation (test Abnormal code = 83177-0) [facility]. METABOLIC PANEL (64091)2019-09-20 19:54:00 Test Item Value Reference Range Interpretation Comments NA (test code = 138 mmol/L 135-145 5002969082) K (test code = 4.3 mmol/L 3.5-5 0504789182) CL (test code = 100 mmol/L 98-108 9038437536) CO2 TOTAL (test code = 28 mmol/L 23-31 6638624641) AGAP (test code = 2-16 5125060868) BUN (test code = 14 mg/dL 7-23 2681084369) GLUCOSE (test code = 264 mg/dL 70-110 H 3570582088) CREATININE (test code = 0.56 mg/dL 0.5-1.04 8142014339) TOTAL BILI (test code = 0.4 mg/dL 0.1-1.4 5613496081) CALCIUM (test code = 9.4 mg/dL 8.6-10.6 3270978721) T PROTEIN (test code = 7.3 g/dL 6.3-8.2 3869196548) ALBUMIN (test code = 4.3 g/dL 3.5-5 3357437897) ALK PHOS (test code = 189 U/L 34-122 H 9319541596) ALTv (test code = 35 U/L 5-35 1742-6) AST(SGOT) (test code = 36 U/L 13-40 1398622824) eGFR Calculation mL/min/1.73m2 (Non-) (test code = 8318161660) eGFR Calculation mL/min/1.73m2 () (test code = 1649004781) CLARICE (test code = CLARICE) Association of [...] tests). Lab Interpretation Abnormal (test code = 85607-5) [facility] 1 VW [id number] 19:50:26 No acute cardiopulmonary process. Disclaimer: Generally, the findings on chest imaging in COVID-19 are notspecific, and overlap with other infections, including influenza, H1N1,SARS and MERS.Accordingto the Centers for Disease Control (CDC) and the [employer], viral testing remainsthe only specific method of diagnosiseven if CXR or CT findings are suggestive of COVID-19. Preliminary Report Dictated by Resident: Diogo Ahmad I, Callum Faustin MD., have reviewed this study and agree withthe above report.PROCEDURE: CHEST XRAY , CLINICAL INDICATION: cough COMPARISON: Radiograph 04/25/2019 FINDINGS: Changes of an ACDF are noted in the lower cervical spine. No focal consolidation, pleural effusion, or pneumothorax. The cardiac silhouette is normal in size. No acute osseous abnormality. Left AC separation versus post surgicalchange, unchanged. Right AC osteoarthrosis. [facility], Radiant Results Inft User - 09/20/2019 2:51 [...] Centers for Disease Control (CDC) and the [employer], viral testing remains the only specific method of diagnosiseven if CXR or CT findings are suggestive of COVID-19. Preliminary Report Dictated by Resident: Callum Coy MD., have reviewed this study and agree withthe above report.[facility] WITH [id number] 19:43:00 Test Item Value Reference Range Interpretation Comments WBC (test code = See_Comment [Automated message] 6690-2) The system [employer] generated this result transmitted ref erence range: 4.30 - 1 1.10 10*3/?L. The re ference range was not u sed to interpret this result as normal/abnor mal. RBC (test code = See_Comment [Automated message] 789-8) The system [employer] generated this result transmitted ref erence range: [...] RDW-SD (test code 42.6 fL 39-49.9 = 22160-5) RDW-CV (test code 13.2 % 12-15.5 = 788-0) PLT (test code = See_Comment [Automated message] 777-3) The system [employer] generated this result transmitted ref erence range: 166 - 35 8 10*3/?L. The re ference range was not u sed to interpret this result as normal/abnor mal. MPV (test code = 11.1 fL 9.5-12.9 74984-3) NRBC/100 WBC (test See_Comment [Automat ed message] code = 6203342383) The syste m which generated this result transmitted ref erence range: 0.0 - 10 .0 /100 WBCs. The refer ence range was not u sed to interpret this result as normal/abnor mal. NRBC x10^3 (test <0.01 See_Comment [Automated message] code = 4547969799) The syste m which generated this result transmitted ref erence range: 10*3/?L. The reference range was not used to interpr et this result as normal/abnormal . GRAN MAT (NEUT) % 56.4 % (test code = 770-8) IMM GRAN % (test 0.80 % code = 6953187993) LYMPH % (test code 28.5 % = 736-9) MONO % (test code 8.4 % = 5905-5) EOS % (test code = 5.0 % 713-8) BASO % (test code 0.9 % = 706-2) GRAN MAT 4.28 10*3/uL 1.88-7.09 x10^3(ANC) (test code = 0625805532) IMM GRAN x10^3 0.06 10*3/uL 0-0.06 (test code = 0127478747) LYMPH x10^3 (test 2.16 10*3/uL 1.32-3.29 code = 731-0) MONO x10^3 (test 0.64 10*3/uL 0.33-0.92 code = 742-7) EOS x10^3 (test 0.38 10*3/uL 0.03-0.39 code = 711-2) BASO x10^3 (test 0.07 10*3/uL 0.01-0.07 code = 704-7) [facility] [id number] 14:12:56 Test Item Value Reference Range Interpretation [...] Interpretation Comments POCT GLU (test code = 4126042203) 178 mg/dL 70-110 H Lab Interpretation (test code = Abnormal 40431-8) [facility] Test Item Value Reference Range Interpretation Comments APPEARANCE (test code = Hazy Clear A 5598735229) COLOR (test code = Yellow Yellow 5095435917) PH (test code = 4.8-8.0 2618905482) SP GRAVITY (test code = 1.003-1.030 H 0710066663) GLU U QUAL (test code = 50 mg/dL Normal A 3367381951) BLOOD (test code = Negative Negative 3437924719) KETONES (test code = Negative Negative 0278367744) PROTEIN (test code = Negative Negative 2887-8) UROBILIN (test code = Normal Normal 6245998756) BILIRUBIN (test code = Negative Negative 1640747905) NITRITE (test code = Negative Negative 0761827736) LEUK JONAS (test code = 500/uL Negative A 6455955878) RBC/HPF (test code = See_Comment H [Autom ated message] 5902116684) The system [employer] generated this result transmitted ref erence range: 0 - 3 HP F. The reference range was not used to int erpret this result as normal/abnormal . WBC/HPF (test code = See_Comment H [Autom ated message] 8831102315) The system [employer] generated this result transmitted ref erence range: 0 - 5 HP F. The reference range was not used to int erpret this result as normal/abnormal . BACTERIA (test code = Negative Negative 0568573094) MUCOUS (test code = Moderate Negative LPF A 7137451019) SQ EPITH (test code = HPF 0778914379) HYAL CAST (test code = See_Comment H [Aut omated message] 4047645133) The system [employer] generated this result transmitted ref erence range: <=2 LPF. The reference range was not used to int erpret this result as normal/abnormal . Lab Interpretation (test Abnormal code = 13793-3) [facility] [id number] 03:35:23 A pulmonary embolism is identified in [...] propagates to the lower lobe segmental branches) [id number] on 02/14/2019. ICallum?MD [place]., have reviewed this [...] propagates to the lower lobe segmental branches) [id number] on 02/14/2019.ICallum MD., have reviewed this study and agree withthe above report.[facility] [id number] 02:14:00 Test Item Value Reference Range Interpretation Comments TROPONIN I (test 0.001 ng/mL See_Comment [Automated code = 4245734549) message] The system which generated this result [...] ? Lab Interpretation Normal (test code = 52854-5) [id number] 02:11:00 Test Item Value Reference Range Interpretation Comments NT-proBNP (test code 44 pg/mL See_Comment [Autom ated = 2170907016) message] The system which generated this result transmitted reference range : <=125. The reference range was not used to interpret this result as normal/abnormal . CLARICE (test code = CLARICE) Biotin has been reported to cause a negative bias, interpret results relative to patient's use of biotin. Lab Interpretation Normal (test code = 30576-0) [facility] 02:06:00 Test Item Value Reference Range Interpretation Comments APTT Patient (test See_Comment [Automat ed code = 3173-2) message] The system which generated this result transmitted reference range : 23 - 38 Seconds . The reference range was not used to interpr et this result as normal/abnormal . CLARICE (test code = CLARICE) The [facility] patient population mean normal value for aPTT is 30 seconds. Lab Interpretation Normal (test code = 67851-8) [facility] / [id number] 02:04:00 Test Item Value Reference Range Interpretation Comments PROTIME PATIENT (test See_Comment [Auto mated message] code = 5964-2) The system [employer] generated this result transmitted ref erence range: 12.0 - 1 4.7 Seconds. The re ference range was not u sed to interpret this result as normal/abnor mal. INR (test code = 6301-6) Nor mal INR <1.1; Warfarin Therap eutic range 2.0 to 3. 0 or 2.5 to 3.5, dep ending upon the indica tions. Lab Interpretation (test Normal code = 00602-7) [facility]. METABOLIC PANEL (87625)2019-02-15 02:03:00 Test Item Value Reference Range Interpretation Comments NA (test code = 142 mmol/L 135-145 9360146521) K (test code = 4.6 mmol/L 3.5-5 6868727225) CL (test code = 104 mmol/L 98-108 2726105153) CO2 TOTAL (test code = 26 mmol/L 23-31 8028480762) AGAP (test code = 2-16 1253921696) BUN (test code = 20 mg/dL 7-23 4602730974) GLUCOSE (test code = 200 mg/dL 70-110 H 4539617356) CREATININE (test code = 0.65 mg/dL 0.5-1.04 4054360161) TOTAL BILI (test code = 0.3 mg/dL 0.1-1.2 7142361345) CALCIUM (test code = 10.3 mg/dL 8.6-10.6 7155690324) T PROTEIN (test code = 7.6 g/dL 6.3-8.2 0445524356) ALBUMIN (test code = 4.6 g/dL 3.5-5 5991607608) ALK PHOS (test code = 157 U/L 34-122 H 8982605814) ALT(SGPT) (test code = 40 U/L 9-51 0855995552) AST(SGOT) (test code = 37 U/L 13-40 9588856488) eGFR Calculation mL/min/1.73m2 (Non-) (test code = 7553007696) eGFR Calculation mL/min/1.73m2 () (test code = 3104533601) CLARICE (test code = CLARICE) Association of [...] tests). Lab Interpretation Abnormal (test code = 22681-6) [facility] WITH [id number] 01:53:00 Test Item Value Reference Range Interpretation Comments WBC (test code = See_Comment [Automated 0904-2) message] The sy stem which generated this result transmitted reference range : 4.30 - 11.10 10*3/?L. The reference range was not used to interpret this result as normal/abnormal . RBC (test code = See_Comment [Automated 571-8) message] The sy stem which generated this [...] RDW-SD (test code = 42.5 fL 39-49.9 18968-1) RDW-CV (test code = 13.6 % 12-15.5 788-0) PLT (test code = See_Comment [Automated 777-3) message] The sy stem which generated this result transmitted reference range : 166 - 358 10*3/ ?L. The reference r alexus was not used to interpret this result as normal/abnormal . MPV (test code = 10.1 fL 9.5-12.9 33993-9) NRBC/100 WBC (test See_Comment [Automat ed code = 4158495505) message] The system which generated this result transmitted reference range : 0.0 - 10.0 /100 WBCs. The refer ence range was not u sed to interpret th is result as normal/abnormal . NRBC x10^3 (test code <0.01 See_Comment [Auto mated = 6224772514) message] The s ystem which generated this result transmitted reference range : 10*3/?L. The reference range was not used to interpret this result as normal/abnormal . GRAN MAT (NEUT) % 58.3 % (test code = 770-8) IMM GRAN % (test code 0.30 % = 7035560490) LYMPH % (test code = 28.5 % 736-9) MONO % (test code = 9.5 % 5905-5) EOS % (test code = 2.7 % 713-8) BASO % (test code = 0.7 % 706-2) GRAN MAT x10^3(ANC) 5.71 10*3/uL 1.88-7.09 (test code = 2885797203) IMM GRAN x10^3 (test 0.03 10*3/uL 0-0.06 code = 1736760405) LYMPH x10^3 (test code 2.79 10*3/uL 1.32-3.29 = 731-0) MONO x10^3 (test code 0.93 10*3/uL 0.33-0.92 H = 742-7) EOS x10^3 (test code = 0.26 10*3/uL 0.03-0.39 711-2) BASO x10^3 (test code 0.07 10*3/uL 0.01-0.07 = 704-7) Lab Interpretation Abnormal (test code = 48777-9) [facility]
--- NOTE | 2022-12-15 12:38 | RAD REPORT ---
EXAM DESCRIPTION: CT - Ct Stroke Brain Wo Cont - 12/15/2022 12:31 pm CLINICAL HISTORY: STROKE ALERT Headache, drowsiness, CVA symptomology COMPARISON: <Comparisons> TECHNIQUE: All CT scans are performed using dose optimization technique as appropriate and may inclu de automated exposure control or mA/KV adjustment according to patient size. FINDINGS: No intracranial hemorrhage, hydrocephalus or extra-axial fluid collection.Mild brain atrop hy.No areas of brain edema or evidence of midline shift. The paranasal sinuses and mastoids are clear. The calvarium is intact. IMPRESSION: No acute intracranial abnormality. If there is continued clinical concern for CVA, MR imaging of the brain would be recommended. The findings were discussed with Dr. Elizabeth in the ER On 12/15/2022 at 12:23 p.m. by telephone.
[2022-12-15 12:55] LABS: Absolute Lymphocytes (CBC) 2.6 K/uL (0.7-4.9); Hematocrit 40.7 % (36.0-45.0); Lymphocytes % 31.9 % (15.3-44.8); MCV 84.4 fL (80-100); MPV 7.7 fL (7.6-11.3); RBC Red Blood Cell Count 4.82 M/uL (3.86-4.86)
[2022-12-15 12:59] LABS: Protime INR 1.48
[2022-12-15 13:14] LABS: Albumin 3.9 g/dL (3.4-5.0); Bilirubin Direct 0.2 mg/dL (0-0.2); Bilirubin Indirect, Calculated 0.2 mg/dL (0.2-0.8); Bilirubin Total 0.4 mg/dL (0.2-1.0); Magnesium 1.7 mg/dL (1.6-2.4); Potassium 4.3 mEq/L (3.5-5.1); Protein, Total 7.4 g/dL (6.4-8.2); Troponin High Sensitivity 4.1 pg/mL (<58.9)
[2022-12-15] MEDS ORDERED: FOLIC ACID 5 MG/ML VIAL ONE (13:20)
[2022-12-15] MEDS ORDERED: NA CHLORIDE 0.9% 1,000 ML ONE (13:21)
--- NOTE | 2022-12-15 13:21 | RAD REPORT ---
EXAM DESCRIPTION: RAD - Chest Single View - 12/15/2022 1:05 pm CLINICAL HISTORY: COUGH Chest pain. COMPARISON: Chest Single View dated 12/10/2022; Chest Single View dated 04/02/2022; Chest Single View dated 11/25/2020; Chest Pa And Lat (2 Views) dated 01/04/2020 FINDINGS: Portable technique limits examination quality. The lungs are emphysematous but grossly clear. The heart is normal in size. No displaced fractures.Ce rvical hardware plate. IMPRESSION: No acute intrathoracic process suspected.
--- NOTE | 2022-12-15 13:46 | EDPHYS ---
Physician Documentation [facility] Name: Christina Isidro Age: 67 yrs Sex: Female : 1955 Arrival Date: 12/15/2022 Time: 12:09 Bed 16 Private MD: ED Physician Jesus Elizabeth HPI: 12/15 13:39 This 67 yrs old Female presents to ER via Ambulatory with complaints of janneth POSSIBLE STROKE. 13:39 The patient's problem is reported as dysphasia, weakness, that is generalized. Onset: janneth The symptoms/episode began/occurred just prior to arrival, this morning. Duration: The episode is continuous. Context: the episode(s) was witnessed, by family. The symptoms are alleviated by nothing. The symptoms are aggravated by nothing. WEAK, SHAKING, SPEECH SLURRED. Associated signs and symptoms: The patient has no apparent associated signs or symptoms. Severity of symptoms: At their worst the symptoms were mild in the emergency department the symptoms are unchanged. Patient's baseline: Neuro:. Historical: - Allergies: 12:21 Lorazepam; hb - Home Meds: 12:21 eliquis [Active]; Hydroxyzine Oral [Active]; clonidine HCl 0.1 mg Oral tablet 2 times hb per day [Active]; citalopram 40 mg tablet every day at bedtime [Active]; gabapentin 600 mg oral tablet 3 times per day [Active]; lamotrigine 200 mg oral tablet every 12 hours [Active]; ropinirole oral [Active]; rosuvastatin 5 mg oral Capsule, Sprinkle daily [Active]; - PMHx: 12:21 CAD; Diabetes - IDDM; pulmonary embolus; DVT; hb - Immunization history:: Adult Immunizations up to date. - Social history:: Smoking status: Patient denies any tobacco usage or history of. - Family history:: not pertinent. ROS: 13:39 Constitutional: Negative for fever, chills, and weight loss, Eyes: Negative for injury, janneth pain, redness, and discharge, ENT: Negative for injury, pain, and discharge, Neck: Negative for injury, pain, and swelling, Cardiovascular: Negative for chest pain, palpitations, and edema, Respiratory: Negative for shortness of breath, cough, wheezing, and pleuritic chest pain, Abdomen/GI: Negative for abdominal pain, nausea, vomiting, diarrhea, and constipation, Back: Negative for injury and pain, : Negative for injury, bleeding, discharge, and swelling, MS/Extremity: Negative for injury and deformity, Skin: Negative for injury, rash, and discoloration, Psych: Negative for depression, anxiety, suicide ideation, homicidal ideation, and hallucinations, Allergy/Immunology: Negative for hives, rash, and allergies, Endocrine: Negative for neck swelling, polydipsia, polyuria, polyphagia, and marked weight changes, Hematologic/Lymphatic: Negative for swollen nodes, abnormal bleeding, and unusual bruising. 13:39 Neuro: Positive for speech changes, tremor, weakness. Exam: 13:39 Radiologist reports: NAD, NEG janneth 13:39 Constitutional: This is a well developed, well nourished patient who is awake, alert, and in no acute distress. Head/Face: Normocephalic, atraumatic. Eyes: Pupils equal round and reactive to light, extra-ocular motions intact. Lids and lashes normal. Conjunctiva and sclera are non-icteric and not injected. Cornea within normal limits. Periorbital areas with no swelling, redness, or edema. ENT: Nares patent. No nasal discharge, no septal abnormalities noted. Tympanic membranes are normal and external auditory canals are clear. Oropharynx with no redness, swelling, or masses, exudates, or evidence of obstruction, uvula midline. Mucous membranes moist. Neck: Trachea midline, no thyromegaly or masses palpated, and no cervical lymphadenopathy. Supple, full range of motion without nuchal rigidity, or vertebral point tenderness. No Meningismus. Chest/axilla: Normal chest wall appearance and motion. Nontender with no deformity. No lesions are appreciated. Cardiovascular: Regular rate and rhythm with a normal S1 and S2. No gallops, murmurs, or rubs. Normal PMI, no JVD. No pulse deficits. Respiratory: Lungs have equal breath sounds bilaterally, clear to auscultation and percussion. No rales, rhonchi or wheezes noted. No increased work of breathing, no retractions or nasal flaring. Abdomen/GI: Soft, non-tender, with normal bowel sounds. No distension or tympany. No guarding or rebound. No evidence of tenderness throughout. Back: No spinal tenderness. No costovertebral tenderness. Full range of motion. Female : Normal external genitalia. Skin: Warm, dry with normal turgor. Normal color with no rashes, no lesions, and no evidence of cellulitis. MS/ Extremity: Pulses equal, no cyanosis. Neurovascular intact. Full, normal range of motion. Neuro: Awake and alert, GCS 15, oriented to person, place, time, and situation. Cranial nerves II-XII grossly intact. Motor strength 5/5 in all extremities. Sensory grossly intact. Cerebellar exam normal. Normal gait. Psych: Awake, alert, with orientation to person, place and time. Behavior, mood, and affect are within normal limits. 13:39 ECG was reviewed by the Attending Physician. Vital Signs: 12:30 BP 153 / 79; Pulse 79; Resp 18; Pulse Ox 100% ; ko1 13:00 BP 141 / 81; Pulse 74; Resp 18; Pulse Ox 99% ; ko1 14:00 BP 139 / 83; Pulse 72; Resp 18; Pulse Ox 96% ; ko1 15:00 BP 148 / 80; Pulse 75; Resp 16; Pulse Ox 99% ; ko1 NIH Stroke Scale Scores: 12:10 NIHSS Score: 2 ko1 MDM: 12:20 Patient medically screened. janneth 13:42 Differential diagnosis: CVA, TIA, Dementia, paralysis, metabolic disorder. Differential janneth Diagnosis altered mental status, sepsis, flu. Data reviewed: vital signs, nurses notes, old medical records, lab test result(s), EKG, radiologic studies, CT scan, MRI, plain films. Management of patient was discussed with the following: Cooling Tower Operator: DR KEENAN, NO TNK , NO CHANGES IN PLAN , OBS. Independent interpretation of the following test(s) in the Emergency Department EKG: See my EKG interpretation above. Test considered but Not performed: MRI: NO MRI. Care significantly affected by the following chronic conditions: Diabetes, Hypertension, DVT, PE. 12/15 12:22 Order name: Basic Metabolic Panel; Complete Time: 13:33 janneth 12/15 12:22 Order name: CBC with Diff; Complete Time: :33 janneth 12/15 12:22 Order name: LFT's; Complete Time: 13:33 12/15 12:22 Order name: Magnesium; Complete Time: 13:33 12/15 12:22 Order name: NT PRO-BNP; Complete Time: 13:33 12/15 12:22 Order name: PT-INR; Complete Time: 13:33 janneth 12/15 12:22 Order name: Troponin HS; Complete Time: 13:33 janneth 12/15 12:22 Order name: Urinalysis w/ reflexes janneth 12/15 12:22 Order name: XRAY Chest (1 view); Complete Time: 13:33 janneth 12/15 12:22 Order name: CT Stroke Brain w/o Contrast; Complete Time: 13:33 janneth 12/15 12:22 Order name: EKG; Complete Time: 12:23 [facility] 12/15 13:52 Order name: CONS Physician Consult EDAZ 12/15 12:22 Order name: Cardiac monitoring; Complete Time: 12:24 janneth 12/15 12:22 Order name: EKG - Nurse/Tech; Complete Time: 13:09 [facility] 12/15 12:22 Order name: IV Saline Lock; Complete Time: 12:48 janneth 12/15 12:22 Order name: Labs collected and sent; Complete Time: 12:48 [facility] 12/15 12:22 Order name: O2 Per Protocol; Complete Time: 12:24 [facility] 12/15 12:22 Order name: O2 Sat Monitoring; Complete Time: 12:24 [facility] EC:39 Rate is 77 beats/min. Rhythm is regular. QRS [place] is Normal. CA interval is normal. QRS janneth interval is normal. QT interval is normal. No Q waves. T waves are Normal. No ST changes noted. Clinical impression: Normal ECG and No evidence of ischemia. Interpreted by me. Reviewed by me. Administered Medications: 13:22 Drug: NS 0.9% IV 1000 ml Route: IV; Rate: 1 bolus; Site: left wrist; ko1 15:19 Follow up: IV Status: Completed infusion; IV Intake: 1000ml ko1 13:22 Drug: foLIC Acid IVPB 1 mg Route: IVPB; Site: left wrist; ko1 15:18 Follow up: Response: No adverse reaction ko1 Disposition Summary: 12/15/22 13:46 Hospitalization Ordered Hospitalization Status: Observation janneth Provider: Eliud Cage cha Location: Telemetry/MedSurg (observation) janneth Condition: Fair janneth Problem: new janneth Symptoms: have improved janneth Bed/Room Type: Standard janneth Room Assignment: 430(12/15/22 14:49) dw Diagnosis - Weakness janneth - Aphasia janneth - snf (current) use of anticoagulants janneth Forms: - Medication Reconciliation Form janneth - SBAR form janneth NIH Stroke Scale - NIH Stroke Score Date: 12/15/2022 Time: 12:10 Total Score = 2 10. Dysarthria (speech clarity - read or repeat words) - 1(Mild to Moderate) 11. Extinction and Inattention (visual/tactile/auditory/spatial/personal) - 0(No abnormality) 1a. Level of Consciousness (LOC) - 0(Alert) 1b. Level of Consciousness (LOC) (Month \T\ Age) - 0(Both) 1c. LOC Commands (Open \T\ Closes Eyes/Hedge Fund Accountant) - 0(Both) 2. Best Gaze (Lateral Gaze Paresis) - 0(Normal) 3. Visual Field Loss - 0(No visual loss) 4. Facial Palsy - 0(Normal) 5a. Left Arm: Motor (10-second hold) - 0(No drift) 5b. Right Arm: Motor (10-second hold) - 0(No drift) 6a. Left Leg: Motor (5-second hold - always test supine) - 0(No drift) 6b. Right Leg: Motor (5-second hold - always test supine) - 0(No drift) 7. Limb Ataxia (finger/nose \T\ heel/melo - test with eyes open) - 0(Absent) 8. Sensory Loss (pinprick arms/legs/face) - 0(Normal) 9. Best Language: Aphasia (description/naming/reading) - 1(Mild to moderate aphasia) Initials: ko1 Signatures: Dispatcher [employer] Marlena Rabago RN RN dw Anderson, Corey, MD MD cha Baxter, Heather, RN RN hb Oliver, Kathy, RN RN ko1 Corrections: (The following items were deleted from the chart) 14:49 13:46 janneth saldaña
--- NOTE | 2022-12-15 13:46 | ER ---
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 hb 12:13 Method Of Arrival: Ambulatory hb 12:13 Coronavirus screen: At this time, the client does not indicate any symptoms associated hb with coronavirus-19. Ebola Screen: No symptoms or risks identified at this time. Onset of symptoms was December 15, 2022 at 11:30. 12:14 Acuity: AARON 2 hb 12:18 Initial Sepsis Screen: Does the patient meet any 2 criteria? No. Patient's initial hb sepsis screen is negative. Does the patient have a suspected source of infection? No. Patient's initial sepsis screen is negative. Risk Assessment: Do you want to hurt yourself or someone else? Patient reports no desire to harm self or others. Triage Assessment: 12:30 General: Appears in no apparent distress. comfortable, Behavior is calm, cooperative, ko1 appropriate for age. Historical: - Allergies: 12:21 Lorazepam; hb - Home Meds: 12:21 eliquis [Active]; Hydroxyzine Oral [Active]; clonidine HCl 0.1 mg Oral tablet 2 times hb per day [Active]; citalopram 40 mg tablet every day at bedtime [Active]; gabapentin 600 mg oral tablet 3 times per day [Active]; lamotrigine 200 mg oral tablet every 12 hours [Active]; ropinirole oral [Active]; rosuvastatin 5 mg oral Capsule, Sprinkle daily [Active]; - PMHx: 12:21 CAD; Diabetes - IDDM; pulmonary embolus; DVT; hb - Immunization history:: Adult Immunizations up to date. - Social history:: Smoking status: Patient denies any tobacco usage or history of. - Family history:: not pertinent. Screenin:10 [facility] ED Fall Risk Assessment (Adult) History of falling in the last 3 months, ko1 including since admission No falls in past 3 months (0 pts) Confusion or Disorientation No (0 pts) Intoxicated or Sedated No (0 pts) Impaired Gait No (0 pts) Mobility Assist Device Used No (0 pt) Altered Elimination No (0 pt) Score/Fall Risk Level 0 - 2 = Low Risk Oriented to surroundings, Maintained a safe environment, Educated pt \T\ family on fall prevention, incl call for assistance when getting out of bed, Assessed \T\ reinforced patient's understanding of fall precautions, Provided non-skid footwear, Hourly rounding (assess needs \T\ fall precautionary measures) done, Used ambulatory aids as needed (educated on \T\ assisted with), Used gait belt as appropriate. Abuse screen: Denies threats or abuse. Denies injuries from another. Nutritional screening: No deficits noted. Tuberculosis screening: No symptoms or risk factors identified. VAN Screening: Arm Drift: Patient shows no arm weakness. Patient is VAN negative. Visual Disturbance: No visual disturbance noted. Aphasia: No aphasia noted. Neglect: No neglect noted. [place] Swallow Protocol Exclusion Criteria: Unable to remain alert for testing: No NPO for medical/surgical reason by provider order No Head-of-bed restricted <30 degrees Tracheostomy tube present No No thin liquids due to preexisting dysphagia/baseline modified diet thickened liquids No Exclusion Criteria Result: Proceed Brief Cognitive Screen What is your name? Normal, Where are you right now? Normal, What year is it? Normal. Oral Mechanism Examination Facial Symmetry: Normal, Motion: Normal, Lip Closure: Normal, Oral Mechanism Result: Normal. 3 oz Water Swallow Challenge: Pt able to drink all water without stopping, coughing, choking or throat clearing: No Result: PASS. Assessment: 12:10 General: Appears in no apparent distress. Behavior is cooperative, appropriate for age. ko1 Pain: Denies pain. 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 Speech occasional difficulty finding words. Pupils are PERRLA, Pupil Size: 3mm. Cardiovascular: No deficits noted. Respiratory: No deficits noted. GI: No deficits noted. : No deficits noted. EENT: No deficits noted. Derm: No deficits noted. Musculoskeletal: No deficits noted. 12:13 Reassessment: BGL 140. hb 12:14 Reassessment: CODE STROKE CALLED, PT TO CT VIA STRETCHER WITH KALIA LOPES. hb 15:35 Reassessment: Pt attempted to provide urine sample but was unsuccessful at this time. jl7 Lab labels for urine sent to floor with pt. Vital Signs: 12:30 BP 153 / 79; Pulse 79; Resp 18; Pulse Ox 100% ; ko1 13:00 BP 141 / 81; Pulse 74; Resp 18; Pulse Ox 99% ; ko1 14:00 BP 139 / 83; Pulse 72; Resp 18; Pulse Ox 96% ; ko1 15:00 BP 148 / 80; Pulse 75; Resp 16; Pulse Ox 99% ; ko1 NIH Stroke Scale Scores: 12:10 NIHSS Score: 2 ko1 ED Course: 12:10 Patient arrived in ED. ts1 12:10 Patient has correct armband on for positive identification. Placed in gown. Bed in low ko1 position. Call light in reach. Side rails up X2. Provided Education on: NA. Client placed on continuous cardiac and pulse oximetry monitoring. NIBP monitoring applied. nurse monitoring on. Door closed. Noise minimized. Lights dimmed. Warm blanket given. 12:15 Alana Langley, MARIANNE is Primary Nurse. ko1 12:18 Triage completed. hb 12:20 Jesus Elizabeth MD is Attending Physician. janneth 12:21 Arm band placed on. hb 12:32 CT Stroke Brain w/o Contrast In Process Unspecified. EDMS 12:48 Initial lab(s) drawn, by me, sent to lab. Inserted saline lock: 22 gauge in left wrist, jl7 using aseptic technique. Blood collected. 13:07 XRAY Chest (1 view) In Process Unspecified. EDMS 13:45 Eliud Cage MD is Hospitalizing Provider. janneth 15:15 No provider procedures requiring assistance completed. Patient admitted, IV remains in ko1 place. Administered Medications: 13:22 Drug: NS 0.9% IV 1000 ml Route: IV; Rate: 1 bolus; Site: left wrist; ko1 15:19 Follow up: IV Status: Completed infusion; IV Intake: 1000ml ko1 13:22 Drug: foLIC Acid IVPB 1 mg Route: IVPB; Site: left wrist; ko1 15:18 Follow up: Response: No adverse reaction ko1 Medication: 15:16 VIS not applicable for this client. ko1 Intake: 15:19 IV: 1000ml; Total: 1000ml. ko1 Outcome: 13:46 Decision to Hospitalize by Provider. janneth 15:15 Admitted to Tele accompanied by tech, via stretcher, room 430, with chart, Report ko1 called to guadalupe 15:15 Condition: improved 15:15 Instructed on the need for admit. 16:15 Patient left the ED. ap3 NIH Stroke Scale - NIH Stroke Score Date: 12/15/2022 Time: 12:10 Total Score = 2 10. Dysarthria (speech clarity - read or repeat words) - 1(Mild to Moderate) 11. Extinction and Inattention (visual/tactile/auditory/spatial/personal) - 0(No abnormality) 1a. Level of Consciousness (LOC) - 0(Alert) 1b. Level of Consciousness (LOC) (Month \T\ Age) - 0(Both) 1c. LOC Commands (Open \T\ Closes Eyes/Top Taper Machine) - 0(Both) 2. Best Gaze (Lateral Gaze Paresis) - 0(Normal) 3. Visual Field Loss - 0(No visual loss) 4. Facial Palsy - 0(Normal) 5a. Left Arm: Motor (10-second hold) - 0(No drift) 5b. Right Arm: Motor (10-second hold) - 0(No drift) 6a. Left Leg: Motor (5-second hold - always test supine) - 0(No drift) 6b. Right Leg: Motor (5-second hold - always test supine) - 0(No drift) 7. Limb Ataxia (finger/nose \T\ heel/melo - test with eyes open) - 0(Absent) 8. Sensory Loss (pinprick arms/legs/face) - 0(Normal) 9. Best Language: Aphasia (description/naming/reading) - 1(Mild to moderate aphasia) Initials: ko1 Signatures: Dispatcher [employer] EDJesus North MD MD cha Baxter, Heather, RN RN hb Kalia Manzano RN RN [email or web address] Britta Mak RN RN ap3 Alana Langley RN RN ko1 Carmen Ross PAS PAS ts1 Corrections: (The following items were deleted from the chart) 12:21 12:18 Acuity: AARON 2 hb hb
[2022-12-15] MEDS ORDERED: ONDANSETRON 4 MG/2 ML VIAL IV PRN (15:27)
[2022-12-15] MEDS ORDERED: ACETAMINOPHEN 500 MG TAB PO PRN (15:27)
[2022-12-15 16:11] VITALS: BMI 27.3
[2022-12-15 16:55] LABS: Specific Gravity 1.019 (1.005-1.030); Urine Bacteria None Seen /HPF (<20); Urine Bilirubin NEGATIVE (Negative); Urine Blood Negative (Negative); Urine Clarity Clear (Clear); Urine Color Light-Yellow (Yellow); Urine Glucose NEGATIVE (Negative); Urine Mucus Slight /HPF (None Seen); Urine Protein NEGATIVE (Negative); Urine RBC <5 /HPF (None Seen); Urine Urobilinogen Normal (Normal)
[2022-12-15] MEDS: NA CHLORIDE 0.9% 1,000 ML IV SCH ×2 (20:12→23:27)
[2022-12-15] MEDS: APIXABAN 2.5 MG TABLET PO SCH (20:13)
[2022-12-15] MEDS: levETIRAcetam 500 MG TAB PO SCH (20:13)
[2022-12-16 04:15] LABS: Absolute Lymphocytes (CBC) 2.3 K/uL (0.7-4.9); Hematocrit 34.5 % (36.0-45.0); Lymphocytes % 37.2 % (15.3-44.8); MCV 84.3 fL (80-100); MPV 7.5 fL (7.6-11.3)
[2022-12-16 04:34] LABS: Potassium 4.1 mEq/L (3.5-5.1)
[2022-12-16] MEDS: levETIRAcetam 500 MG TAB PO SCH ×3 (08:08→20:30)
[2022-12-16] MEDS: APIXABAN 2.5 MG TABLET PO SCH (08:09)
[2022-12-16] MEDS ORDERED: APIXABAN 2.5 MG TABLET PO SCH (09:00)
[2022-12-16] MEDS: cloNIDine HCL 0.1 MG TAB PO SCH ×3 (09:00→20:35)
[2022-12-16] MEDS: FOLIC ACID 1 MG in NA CHLORIDE 0.9% 50 ML IV SCH (09:14)
--- NOTE | 2022-12-16 09:28 | P.HP ---
Certification for Inpatient Patient admitted to: Observation With expected LOS: <2 Midnights Practitioner: I am a practitioner with admitting privileges, knowledge of patient current condition, hospital course, and medical plan of care. Services: Services provided to patient in accordance with Admission requirements found in Title 42 Section 412.3 of the Code of Federal Regulations Patient History Date of Service: 12/16/22 Reason for admission: Shaking tremors feeling dizzy History of Present Illness: Patient is 67 years of age was recently discharged from the hospital with cerebellar infarcts came in again hospital complaining of shaking tremors feeling a little dizzy symptoms before weakness of the legs and is fine right now denies any problems able to ambulate to eat and drink further shaking spells Allergies lorazepam [From Ativan] Adverse Reaction (Unknown, Verified 01/04/20 13:54) SUICIDAL Home Medications: Gabapentin 2 cap PO TID 11/30/20 Insulin Glargine,Hum.rec.anlog [Basaglar Kwikpen U-100] 15 unit SQ BID 11/30/20 Metformin HCl 1 tab PO BID 11/30/20 Ropinirole HCl 1 tab PO TID 11/30/20 Apixaban [Eliquis] 5 mg PO BID 12/10/22 Semaglutide [Ozempic] 2.5 mg SQ EVERY 7TH DAY 12/10/22 Clonidine HCl [Catapres*] 0.1 mg PO BID 12/15/22 Levetiracetam [Keppra] 250 mg PO BEDTIME 12/15/22 Rosuvastatin [Crestor*] 5 mg PO BEDTIME 12/15/22 hydrOXYzine HCL [Atarax] 50 mg PO TID 12/15/22 - Past Medical/Surgical History Has patient received pneumonia vaccine in the past: Yes Diabetic: Yes -: DM -: CAD -: DVT -: PE -: plates in the neck -: bladder surgery -: knee surgery -: carpal tunnel surgery -: GALLBLADDER SURGERY - Family History Mother -: Heart disease Father -: Other (see notes) Notes: Pulmonary embolism - Social History Smoking Status: Former smoker Alcohol use: No CD- Drugs: No Caffeine use: No Place of Residence: Home Review of Systems 10-point ROS is otherwise unremarkable Physical Examination - Vital Signs Temperature: 97.9 F Blood Pressure: 112/71 Pulse: 64 Respirations: 18 Pulse Ox (%): 97 - Physical Exam General: Alert, Oriented x3 Respiratory: Clear to auscultation bilaterally Cardiovascular: No edema, Regular rate/rhythm, Normal S1 S2 Gastrointestinal: Normal bowel sounds, Soft and benign Musculoskeletal: No clubbing, No contractures Integumentary: No rashes Neurological: Normal gait, Normal speech, Normal strength at 5/5 x4 extr, Sensation intact, Cranial nerves 3-12 intact - Studies Laboratory Data (last 24 hrs) 12/15/22 12:46: PT 16.3 H, INR 1.48 12/15/22 12:46: WBC 8.10, Hgb 13.0, Hct 40.7, Plt Count 266 12/15/22 12:46: Sodium 135 L, Potassium 4.3, BUN 19 H, Creatinine 0.91, Glucose 131 H, Magnesium 1.7, Total Bilirubin 0.4, AST 17, ALT 31, Alkaline Phosphatase 111 Assessment and Plan - Problems (Diagnosis) (1) Seizures Current Visit: Yes Status: Acute Plan: Patient is 67 years of age with prior history of stroke admitted with shaking weakness doing fine right now she has had many episodes before they are very transient and MRI showed remote cerebellar infarct right now patient has no weakness of her extremity or any cranial nerve abnormalities she is very alert responsive Labs reviewed unremarkable mildly anemic and is ambulating appears to be having seizures waiting to see Dr. Love abs reviewed patient has had a stent in the carotid artery - Advance Directives Does patient have a Living Will: Yes Does patient have a Durable POA for Healthcare: No
[2022-12-16] MEDS: GABAPENTIN 300 MG CAP PO SCH ×3 (09:44→20:23)
[2022-12-16] MEDS: ROPINIROLE HCL 1 MG TAB PO SCH ×3 (09:44→20:25)
[2022-12-16] MEDS: METFORMIN HCL 500 MG TAB PO SCH ×2 (09:44→20:22)
[2022-12-16] MEDS: INSULIN GLARGINE 100 UNIT/ML SQ SCH ×2 (09:45→20:27)
[2022-12-16] MEDS: APIXABAN 5 MG TABLET PO SCH (20:25)
[2022-12-16] MEDS: ROSUVASTATIN 10 MG TAB PO SCH (20:27)
[2022-12-17] MEDS: METFORMIN HCL 500 MG TAB PO SCH ×2 (09:00→21:14)
[2022-12-17] MEDS: ROPINIROLE HCL 1 MG TAB PO SCH ×3 (09:00→21:03)
[2022-12-17] MEDS: cloNIDine HCL 0.1 MG TAB PO SCH ×2 (09:00→21:00)
[2022-12-17] MEDS: GABAPENTIN 300 MG CAP PO SCH ×3 (09:00→21:02)
[2022-12-17] MEDS: INSULIN GLARGINE 100 UNIT/ML SQ SCH ×2 (09:00→21:14)
[2022-12-17] MEDS: levETIRAcetam 500 MG TAB PO SCH ×3 (09:00→21:02)
[2022-12-17] MEDS: APIXABAN 5 MG TABLET PO SCH ×2 (09:00→21:03)
--- NOTE | 2022-12-17 11:48 | EKG ---
Test Date: 2022-12-15 Test Time: 12:31:26 Central Service Technician: CECE MEASUREMENT RESULTS: Intervals: Rate: 77 NC: 174 QRSD: 80 QT: 384 QTc: 434 [place]: P: 68 NC: 174 QRS: 4 T: 46 INTERPRETIVE STATEMENTS: Normal sinus rhythm Normal ECG Compared to ECG 12/15/2022 12:27:40 No significant changes Electronically Signed On 12-17-22 11:45:26 CDT by Paolo Pearson
--- NOTE | 2022-12-17 11:48 | EKG ---
Test Date: 2022-12-15 Test Time: 12:27:40 Junior Administrative Assistant: CECE MEASUREMENT RESULTS: Intervals: Rate: 0 SC: QRSD: 0 QT: 0 QTc: 0 [place]: P: SC: QRS: 0 T: 0 INTERPRETIVE STATEMENTS: No QRS complexes found, no ECG analysis possible Compared to ECG 12/10/2022 11:53:08 Sinus rhythm no longer present Electronically Signed On 12-17-22 11:45:31 CDT by Paolo Pearson
[2022-12-17] MEDS: FOLIC ACID 1 MG in NA CHLORIDE 0.9% 50 ML IV SCH (14:21)
--- NOTE | 2022-12-17 15:05 | PN ---
Date of Progress Note: 12/17/2022 The patient states she was doing fine until a few minutes before I walked in the room when she calls her episodes. Associated with this, orientation; however, she cannot pronounce her words. She does have some tonoclonic motion of her arms and this lasted approximately 10 minutes, seems mo re of a seizure scenario than a vascular one. We will discuss case further with Dr. Love. HR/MODL Voice ID: [id number] Report ID: [id number]
[2022-12-17] MEDS: ROSUVASTATIN 10 MG TAB PO SCH (21:01)
[2022-12-18] MEDS ORDERED: ROPINIROLE HCL 1 MG TAB PO SCH ×2 (08:00→21:00)
[2022-12-18] MEDS: APIXABAN 5 MG TABLET PO SCH (09:03)
[2022-12-18] MEDS: METFORMIN HCL 500 MG TAB PO SCH (09:04)
[2022-12-18] MEDS: levETIRAcetam 500 MG TAB PO SCH (09:04)
[2022-12-18] MEDS: GABAPENTIN 300 MG CAP PO SCH ×2 (09:04→14:15)
[2022-12-18] MEDS: FOLIC ACID 1 MG in NA CHLORIDE 0.9% 50 ML IV SCH (09:05)
[2022-12-18] MEDS: INSULIN GLARGINE 100 UNIT/ML SQ SCH (09:07)
[2022-12-18 09:54] VITALS: O2SAT 98
[2022-12-18 11:34] VITALS: BP 144/60; TEMP 97.1
--- NOTE | 2022-12-18 15:50 | PN ---
Date of Progress Note: 12/18/2022 The patient states she has had 2 more episodes since the one that I had visualized. Discussed the ca se with Dr. Love. More than likely, it is a form of epilepsy. Much less likely, it is a vascula r problem. We will increase the Keppra to 250 twice a day. We will continue to increase the dose an d set up epilepsy monitoring as an outpatient. In view of these findings, I see no reason where she can be discharged. Continue on her usual medication post the Keppra. She will follow up with me in a week and Dr. Love's office as far as monitoring and then an appointment with him. HR/MODL Voice ID: [id number] Report ID: [id number]
== END 2022-12-18 15:47 | disposition home or self-care (01) | DRG 101 ==
LOC: ER 12:09 → 4TH 13:47 → OBSVTOIN 12-17 14:29
PROVIDERS: ADMIT Family Medicine; ATTEND Family Medicine
DX: G40.409 Other generalized epilepsy and epileptic syndromes, not intractable, without status epilepticus (principal); R47.01 Aphasia; E11.9 Type 2 diabetes mellitus without complications; I25.10 Atherosclerotic heart disease of native coronary artery without angina pectoris; Z79.4 Long term (current) use of insulin; Z88.8 Allergy status to other drugs, medicaments and biological substances; Z79.01 Long term (current) use of anticoagulants; Z79.84 Long term (current) use of oral hypoglycemic drugs; Z79.899 Other long term (current) drug therapy; Z86.711 Personal history of pulmonary embolism; Z86.718 Personal history of other venous thrombosis and embolism; Z87.891 Personal history of nicotine dependence
CPT/HCPCS: 36415; 70450; 71045; 80048; 80076; 81001; 82947; 83735; 83880; 84484; 85025; 85610; 93005; 96361; 96374; 99285; G0378; J7030

== ENCOUNTER 2023-01-02 16:28 | Emergency (ER) | payer OTHER ==
--- OUTSIDE RECORDS SUMMARY | 2023-01-02 16:44 | XMS REPORT | Continuity of Care Document ---
:1955 Author Organization [facility] t Address [address] [facility]. [address] [place] [address] Care Team Providers Name Role Phone Asked, [...] Attending Clinician Grace MEDINA, Matt Attending Clinician Sandeep Becerril MD, Chilvana Attending Clinician Christin Anderson Attending Clinician [email or web address] Attending Clinician Unavailable Andreia Buckley Attending Clinician MARCIAL VAUGHAN Attending Clinician Unavailable Marcial Vaughan MD Attending Clinician Larisa Henderson Attending Clinician Piotr Josue Attending Clinician Nimesh Parra Attending Clinician VERNA BRUSH Attending Clinician Unavailable Coretta Tavares RN Attending Clinician Unavailable Doctor Unassigned, [place] Attending Clinician Unavailable SAMUEL ANN Attending Clinician [...] Attending Clinician Unavailable Maribell Ramirez Attending Clinician [phone] Prudencio Ríos DO Attending Clinician [facility] [...] Number Effective Date Expiration Date Torie salazar [facility] [employer] [place] [id number] 2019 00:00:00 [facility] HEALTH [id number] 2020 (MEDICARE 00:00:00 REPLACEMENT HMO) MANAGED MEDICARE [id number] 2018 HMO GENERIC 00:00:00 [facility] MEDICARE [id number] 2018 COMPLETE 00:00:00 Problems Condition Condition Condition Status Onset Resolution Last Treating Co mments Source Name Details Category Date Date Treatment Clinician Date Dizziness Dizziness Disease Active Uni vers 7-02 ity of 00:00: [place] 00 Medical Branch Abnormal Abnormal Disease Active Unive rs involuntar involuntar 6-05 it y of y movement y [place] 00 [place] Disorienta Disorienta Disease Active U nivers tion tion 6- ity of 00:00: [place] [facility] UTI UTI Disease Active Univers (urinary (urinary 8-16 ity of tract tract 00:00: [place] infection) infection) 00 Me dical Branch Peripheral Peripheral Disease Active U nivers neuropathy neuropathy 8-16 it y of 00:00: [place] 00 Medical Branch Meningioma Meningioma Disease Active 2022-0 U nivers of of 8-16 ity of cerebellum cerebellum 00:00: [place] (left) (left) 00 Medical Branch Difficulty Difficulty Disease Active U nivers with with 8-15 ity of speech speech 00:00: [place] [facility] Pulmonary Pulmonary Disease Active Uni vers embolism, embolism, 4-22 ity of bilateral bilateral [place] Hypotensio Hypotensio Disease Active U nivers n n 8-20 ity of 00:00: [place] [facility] Meningioma Meningioma Disease Active M [...] Disease Active Univers 4-17 ity of 00:00: [place] [facility] Dyspnea Dyspnea Disease Active 2018-06 Univers 1-23 ity of 00:00: [place] [facility] Acute deep Acute deep Disease Active U nivers vein vein 6-28 ity of thrombosis thrombosis 00:00: [place] (DVT) of (DVT) of 00 Medica l proximal proximal Branch vein of vein of lower lower extremity extremity Pulmonary Pulmonary Disease Active Uni vers embolism embolism 6-22 ity of 00:00: [place] [facility] Obesity Obesity Disease Active Univers (BMI (BMI 6-22 ity of 30-39.9) 30-39.9) 00:00: [place] [facility] Transient Transient Problem Active 2022-07-07 Memoria ischemic ischemic 23:39:55 l attack attack [place] (disorder) (disorder) Active Problem 07/07/2022 [facility] [place] Diabetes Diabetes Problem Active 2022-07-07 Memoria mellitus mellitus 23:39:55 l (disorder) (disorder) [place] Active Problem 07/07/[facility] Restless Restless Problem Active 2022-07-07 Memoria legs legs 23:39:55 l (disorder) (disorder) [place] Active Problem 07/07/2022 [facility] Deep Deep Problem Active 2022-07-07 Memor ia venous venous 23:39:55 l thrombosis thrombosis [place] of lower of lower extremity extremity (disorder) (disorder) Active Problem 07/07/2022 [facility] Hyperlipid Hyperlipi Problem Active 2022-07-07 Memoria emia demia 23:39:55 l (disorder) (disorder) [place] Active Problem 07/07/[facility]22 [facility] Disease Disease Problem Active 2022-07-07 Me moria caused by caused by 23:39:55 l 2019-nCoV 2018-nCoV Herm benedicto Active Problem 07/07/2022 [facility] Vertigo Vertigo Problem Active 2022-07-07 Me moria (finding) (finding) 23:39:55 l Active [place] Problem 07/07/2022 [facility] Stammering Stammerin Problem Active 2022-07-07 Memoria (finding) g 23:39:55 l (finding) [place] Active Problem 07/07/2022 [facility] 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 Ativan Drug Active [facility] melatoni Drug Active [facility] Ativan Drug Active [facility] Ativan Allergy Active Moderate Hallucinatio D evoted to Medical substanc Group e Lipitor Allergy Active Moderate Hallucinatio Devoted to Medical substanc Group e No Known No Known Active Memori a Medicati Medicati l on on Yong Allergie Allergie s s Ativan Ativan Active Memoria l Yong Family History Family Member Diagnosis Comments Start Date Stop Date Source Maternal grandmother Deep vein [facility] Natural mother Deep [facility] Other [facility] Social History Social Habit Start Date Stop Date Quantity Comments Source History SDOH Social Unive rsity of Connections Get [place] Med ical Together Branch History SDOH Social Unive rsity of Connections [facility] Medical Branch History SDOH Social Unive rsity of Connections [place] [facility] Membership Branch History SDOH Social Unive rsity of Connections [place] [facility] Meetings Branch History SDOH University o f Alcohol Std Drinks [place] [facility] History SDOH University o f Alcohol Binge [place] [facility] al [facility] History of tobacco Passive smoker Un iversity of use [place] [facility] Gender identity [facility] Sexual orientation [facility] Hospital History [...] University o f Housing Places 00:00:00 00:00:00 [place] Medi corby Lived Branch History SDOH 2022-12-03 2022-12-03 2 University o f Housing Homeless 00:00:00 00:00:00 [place] Me dical Last Year Branch History SDOH 2022-12-03 2022-12-03 1 University o f Alcohol Frequency 00:00:00 00:00:00 [place] M edical Branch History SDOH 2022-12-03 2022-12-03 5 University o f Financial 00:00:00 00:00:00 [place] [facility] History SDOH Food 2022-12-03 2022-12-03 1 Univers ity of Worry 00:00:00 00:00:00 [place] [facility] History SDOH Food 2022-12-03 2022-12-03 1 Univers ity of Scarcity 00:00:00 00:00:00 [place] [facility] History SDOH 2022-12-03 2022-12-03 2 University o f Transport Med 00:00:00 00:00:00 [place] Medic al Branch History SDHI 2022-12-03 2022-12-03 2 University o f Transport Non-Med 00:00:00 00:00:00 [facility] edical Branch Tobacco Comment 2022-12-02 2022-12-02 Pt refuses Universit y of 00:00:00 00:00:00 counseling [facility] haven't smoked in Branch 45 years Exposure to 2022-08-29 2022-09-08 Not sure University of SARS-CoV-2 (event) 00:00:00 00:34:00 [facility] History of Social 2021-09-07 2021-09-[address] function 00:00:00 00:00:00 Hospital Alcohol intake 2021-09-07 2021-09-07 Ex-drinker [facility] 00:00:00 00:00:00 (finding) Hospital Alcohol Comment 2020-12-02 2020-12-02 a few drinks a Metho dist 00:00:00 00:00:00 year Hospital Tobacco use and 2020-12-02 2020-12-02 Smokeless tobacco Me thodist exposure 00:00:00 00:00:00 non-user Hospital Education 2018-11-22 2018-11-22 11 University of 00:00:00 00:00:00 [facility] Sex Assigned At [birth year] [facility] 00:00:00 00:00:00 Hospital Smoking Status Start Date Stop Date Source Tobacco smoking status 2022-03-13 18:17:28 2022-03-13 18:17:28 [place] Never smoked tobacco [facility] Medications Ordered Filled Start Stop Current Ordering Indication Dosage Frequency Signature Comments Components Source Medication Medication Date Date Medication? Clinician (SIG) Name Name magnesium 0 2022- Yes 400mg 400 mg, Uni vers oxide 12-04 07-08 Oral, BID, ity of (MAG-OX 01:00: 00:59 8 doses, [place] 400) tablet 00 :00 First dose Me dical 400 mg on Sat Branch 12/03/22 at 2000, Last dose on Sat12/07/22 at 0800, DAKOTAH insulin 0 Yes 5U 5 Units, Univer s glargine 12-03 Subcutaneo ity o f (LANTUS 14:00: [place], DAILY, [place] U-100) 00 First dose Medical injection 5 on [facility] 12/03/22 at 0900, Until Discontinu ed citalopram Yes 40mg 40 mg, Unive rs (CELEXA) 12-03 Oral, ity of tablet 40 14:00: DAILY, [place] mg 00 First dose Medical on [facility] 12/03/22 at 0900, Until Discontinu ed, [...] mg 00 First dose Medic al on [facility] 12/03/22 at 0800, Until Discontinu ed, Routine pramipexole Yes .25mg 0.25 mg, U nivers (MIRAPEX) 12-03 Oral, TID, ity of tablet 0.25 13:00: First dose [place] mg 00 on [facility] [place] 12/03/22 at Branch 0800, Until Discontinu ed, Routine apixaban Yes [id number] 5mg 5 mg, Univers (ELIQUIS) 12-03 Oral, BID, ity of tablet 5 mg 13:00: First dose [place] 00 on [facility] 12/03/22 at Branch 0800, Until Discontinu ed, Routine
Indicatio ns: Non-Valvul ar Atrial Fibrillati on magnesium 2022- No 2g 2 g, IV Univ ers sulfate in 12-03 Piggyback, it y of water 2 13:00: 14:46 Administer [place] as gram/50 mL 00 :00 over 60 Medica l (4 %) Minutes, Branch infusion 2 ONCE NOW, g 1 dose, On [facility] 12/03/22 at 0800, Routine Sliding Yes Subcutaneo Univ ers Scale 12-03 us, TID ity of Insulin - 02:00: MEALS+HS, [place] as Lispro 00 First dose Medical (HumaLOG) on [facility] 12/02/22 at 2100, Until Discontinu ed, Routine gabapentin 2022- Yes [id number] 300mg Take 1 Univers 300 mg 12-03 capsule by ity of capsule 00:00: 04:59 mouth in [place] 00 :00 the [facility] and 1 capsule at noon and 1 capsule in the evening. Do all this for 30 days. gabapentin 2022- Yes [id number] 300mg Take 1 Univers 300 mg 12-03 capsule by ity of capsule 00:00: 04:59 mouth in [place] 00 :00 the [facility] and 1 capsule at noon and 1 capsule in the evening. Do all this for 30 days. magnesium 2022- Yes [id number] 400mg Take 400 Univers oxide 420 12-03 07-11 mg by ity of mg Tab 00:00: 04:59 mouth in [place] 00 :00 the [facility] and 400 mg in the evening. Do all this for 7 days. magnesium 2022- Yes [id number] 400mg Take 400 Univers oxide 420 12-03 07-11 mg by ity of mg Tab 00:00: 04:59 mouth in [place] 00 :00 [facility] and 400 mg in the evening. Do all this for 7 days. NaCl 0.9% 2022- No 1000mL at 100 Uni vers (NS) IV 12-02 07-03 mL/hr, IV ity of infusion 23:30: 12:10 Infusion, [place] as 1,000 mL 00 :04 CONTINUOUS Medic al , Starting Branch on [place] 12/02/22 at 1830, Until 12/03/22 at 0710, Routine glucagon Yes 1mg 1 mg, Univers (GLUCAGEN 12-02 Intramuscu ity of DIAGNOSTIC 23:14: lar, PRN, [place] KIT) 29 Starting Medical injection 1 on [facility] mg 12/02/22 at 1814, Until Discontinu ed, DAKOTAH, Blood Glucose < or = 70 mg/dL and patient is NPO, unable to swallow or has mental changes. dextrose 50 0 Yes 25mL 25 mL, Univ ers % in water 12-02 Slow IV ity of (D50W) 23:14: Push, PRN, [place] injection 29 Starting Medica l 25 mL on [facility] 12/02/22 at 1814, Until Discontinu ed, DAKOTAH, Blood Glucose < or = 70 mg/dL and patient is NPO, unable to swallow or has mental status changes. acetaminoph Yes 650mg 650 mg, Un meri en 12-02 Oral, ity of (TYLENOL) 23:13: Q6HPRN, [place] tablet 650 48 Starting Medic al mg on [facility] 12/02/22 at 1813, Until Discontinu ed, Routine, Pain (scale 1-3) NaCl 0.9% 2022- No 1000mL at 999 Uni vers (NS) bolus 12-02-02 mL/hr, ity of infusion 22:15: 23:07 1,000 mL, [place] 1,000 mL 00 :00 IV Medical Infusion, Branch ONCE, 1 dose, On [place] 12/02/22 at 1715, DAKOTAH iopamidol 0 2022- No [id number] 83mL 83 mL, U nivers (ISOVUE 12-02 Intravenou ity o f 370-500 mL) 22:15: 22:15 s, ONCE, 1 [place] injection 00 :00 dose, On Medica l 83 mL [place] 7/2/23 Branch at 1715, Routine NaCl 0.9% 2022- No 1000mL at 999 Uni vers (NS) bolus 12-02- mL/hr, ity of infusion 20:00: 21:28 1,000 mL, [place] as 1,000 mL 00 :00 IV Medical Infusion, Branch ONCE, 1 dose, On Sat12/02/22 at 1500, DAKOTAH meclizine 2022- No 25mg 25 mg, Unive rs (TRAVEL-EAS 12-02 Oral, ity of E 19:30: 19:42 ONCE, 1 [place] (MECLIZINE) 00 :00 dose, On Medi corby ) tablet 25 Sat12/02/22 Br anch mg at 1430, DAKOTAH gabapentin Yes 600mg 600 mg, Uni vers (NEURONTIN) 05 Oral, TID, it y of capsule 600 [...] Therapy: Other (see Comments) pramipexole 2022- Yes [id number] .25mg Take 1 Univers 0.25 mg 11-05 tablet by ity of tablet 00:00: 05:59 mouth in [place] 00 :00 the Medical morning Branch and 1 tablet at noon and 1 tablet in the evening. Do all this for 180 days. pramipexole 2022- Yes [id number] .25mg Take 1 Univers 0.25 mg 11-05 tablet by ity of tablet 00:00: 05:59 mouth in [place] 00 :00 the Medical morning Branch and 1 tablet at noon and 1 tablet in the evening. Do all this for 180 days. pramipexole 2022- Yes [id number] .25mg Take 1 Univers 0.25 mg 11-05 tablet by ity of tablet 00:00: 05:59 mouth in [place] 00 :00 the [facility] Branch and 1 tablet at noon and 1 tablet in the evening. Do all this for 180 days. pramipexole 2022- Yes [id number] .25mg Take 1 Univers 0.25 mg 11-05 tablet by ity of tablet 00:00: 05:59 mouth in [place] 00 :00 the [facility] and 1 tablet at noon and 1 tablet in the evening. Do all this for 180 days. gabapentin 2022- Yes [id number] 600mg Take 2 Univers 300 mg 11-05 capsules ity of capsule 00:00: 04:59 by mouth [place] 00 :00 in the [facility] Branch and 2 capsules at noon and 2 capsules in the evening. Do all this for 30 days. gabapentin 2022- Yes [id number] 600mg Take 2 Univers 300 mg 11-05 capsules ity of capsule 00:00: 04:59 by mouth [place] 00 :00 in the Medical morning Branch and 2 capsules at noon and 2 capsules in the evening. Do all this for 30 days. gabapentin 2022- No [id number] 600mg Take 2 Univers 300 mg 11-05 capsules ity of capsule 00:00: 00:00 by mouth [place] 00 :00 in the [facility] Branch and 2 capsules at noon and 2 capsules in the evening. Do all this for 30 days. gadobenate 2022- No [id number] .2mL/kg 16.32 mL Univers dimeglumine 11-04 (0.2 mL/kg i ty of (MULTIHANCE 16:00: 16:00 ?81.6 kg), [place] -15 mL) 00 :00 Intravenou Medica l injection s, ONCE, 1 Bran ch 16.32 mL dose, On 11/04/22 at 1100, Routine levoFLOXaci 2022- No 250mg 250 mg, U nivers n 11-04- Oral, Q24H ity of (LEVAQUIN) 00:45: 17:07 ABX, 3 [place] tablet 250 00 :05 doses, Medical mg First dose Branch on Sat11/03/22 at 1945, Last dose on Sat11/05/22 at 1945, DAKOTAH
Re ason for Anti-Infec [...] dose [place] mg 00 on Sat [facility] 11/02/22 at Branch 0800, Until Discontinu ed, Routine gabapentin 2022- No 900mg 900 mg, Un meri (NEURONTIN) 11-0205 Oral, TID, i ty of capsule 900 13:00: 14:44 First dose [place] mg 00 :53 on [facility] 11/02/22 at Branch 0800, Until Discontinu ed, Routine apixaban 2022- No [id number] 5mg 5 mg, Univers (ELIQUIS) 11-02 Oral, BID, ity of tablet 5 mg 13:00: 19:33 First dose [place] 00 :24 on [facility] 11/02/22 at Branch 0800, Until Discontinu ed, Routine
Indicatio ns: DVT/PE glucagon Yes 1mg 1 mg, Univers (GLUCAGEN 11-02 Intramuscu ity of DIAGNOSTIC 11:31: [place], PRN, [place] KIT) 20 Starting Medical injection 1 on Sat [facility] 11/02/22 at 0631, Until Discontinu ed, DAKOTAH, Blood Glucose < or = 70 mg/dL and patient is NPO, unable to swallow or has mental changes. dextrose 50 Yes 25mL 25 mL, Univ ers % in water 11-02 Slow IV ity of (D50W) 11:31: Push, PRN, [place] injection 20 Starting Medica l 25 mL on Sat [place] 11/02/22 at 0631, Until Discontinu ed, DAKOTAH, Blood Glucose < or = 70 mg/dL and patient is NPO, unable to swallow or has mental status changes. pramipexole Yes .25mg 0.25 mg, U nivers (MIRAPEX) 11-02 Oral, TID, ity of tablet 0.25 07:45: First dose [place] mg 00 on [facility] 11/02/22 at Branch 0245, Until Discontinu [...] Branch on Geri 11/01/22 at 2318, Until [facility] 11/01/22 at 2327, Routine, Agitation, mri acetaminoph Yes 650mg 650 mg, Un meri en 11-02 Oral, ity of (TYLENOL) 02:19: Q6HPRN, [place] tablet 650 40 Starting Medic al mg on Geri Branch 11/01/22 at 2119, Until Discontinu ed, Routine, Pain (scale 4-6) docusate Yes 100mg 100 mg, Unive rs (COLACE) 11-02 Oral, ity of capsule 100 02:19: QDAILYPRN, [place] mg 40 Starting Medical on Geri Branch 11/01/22 at 2119, Until Discontinu ed, Routine, Constipati on iopamidol 2022- No [id number] 89mL 89 mL, U nivers (ISOVUE 11-01 Intravenou ity o f 370-500 mL) 19:51: 19:51 s, ONCE, 1 [place] injection 00 :00 dose, On Medica l 89 mL [facility] 11/01/22 Branch at 1515, Routine diazePAM 2022- No 5mg 5 mg, Slow Un meri (VALIUM) 11-01 IV Push, ity of injection 5 19:30: 19:30 ONCE, 1 [place] mg 00 :00 dose, On Medical Geri 11/01/22 Branch at 1430, STAT cefTRIAXone 2022- No 1000mg 1,000 mg, Univers (ROCEPHIN) 09-08 04-08 IV ity of 1,000 mg in 08:15: 08:18 Piggyback, [place] NaCl 0.9% 00 :00 ONCE, 1 Medical (NS) 100 mL dose, On Bran ch MINI-BAG 09/08/22 at 0315, Administer over 30 Minutes, 100 mL
Reas on for Anti-Infec tive: Documented Infection< br>Documen beth Infection Site: Urine<br&g t;Duration of Therapy: Other (see Comments) iopamidol 3- No [id number] 120mL 120 mL, Univers (ISOVUE 4-08 04-08 [...] Until Discontinu ed, 10 mL cefdinir Yes [id number] 300mg Take 1 Un meri 300 mg 4-08 capsule by ity of capsule 00:00: mouth [place] 00 every 12 Medical (twelve) Branch hours. cefdinir 0 2022- No [id number] 300mg Take 1 U nivers 300 mg 4-08 06-05 capsule by ity of capsule 00:00: 00:00 mouth [place] 00 :00 every 12 Medical (twelve) Branch hours. lamoTRIgine 2021-06 Yes See Memori a 200 mg oral 1-17 Instructio l tablet 20:03: ns, TAKE 1 Dianne nn 00 TABLET BY MOUTH TWICE A DAY^1R1,1R 4, # 60 tab, 3 Refill(s), Pharmacy: [facility], 162.56, cm, 03/13/22 13:29:00 CDT, Height, 80, kg, 03/13/22 13:29:00 CDT, Weight lamoTRIgine 2021-06 Yes See Memori a 200 mg oral 1-17 Instructio l tablet 20:03: ns, TAKE 1 Dianne nn 00 TABLET BY MOUTH TWICE A DAY^1R1,1R 4, # 60 tab, 3 Refill(s), Pharmacy: [facility], 162.56, cm, 03/13/22 13:29:00 CDT, Height, 80, kg, 03/13/22 13:29:00 CDT, Weight lamoTRIgine 2021-06 Yes See Memori a 200 mg oral 1-17 Instructio l tablet 20:03: ns, TAKE 1 Dianne nn 00 TABLET BY MOUTH TWICE A DAY^1R1,1R 4, # 60 tab, 3 Refill(s), Pharmacy: [facility], 162.56, cm, 03/13/22 13:29:00 CDT, Height, 80, kg, 03/13/22 13:29:00 CDT, Weight lamoTRIgine 2021-06 Yes See Memori a 200 mg oral 1-17 Instructio l tablet 20:03: ns, TAKE 1 Dianne nn 00 TABLET BY MOUTH TWICE A DAY^1R1,1R 4, # 60 tab, 3 Refill(s), Pharmacy: [facility], 162.56, cm, 03/13/22 13:29:00 CDT, Height, 80, kg, 03/13/22 13:29:00 CDT, Weight lamoTRIgine 2021-06 Yes See Memori a 200 mg oral 1-17 Instructio l tablet 20:03: ns, TAKE 1 Dianne nn 00 TABLET BY MOUTH TWICE A DAY^1R1,1R 4, # 60 tab, 3 Refill(s), Pharmacy: [facility], 162.56, cm, 03/13/22 13:29:00 CDT, Height, 80, kg, 03/13/22 13:29:00 CDT, Weight lamoTRIgine 2021-06 Yes See Memori a 200 mg oral 1-17 Instructio l tablet 20:03: ns, TAKE 1 Dianne nn 00 TABLET BY MOUTH TWICE A DAY^1R1,1R 4, # 60 tab, 3 Refill(s), Pharmacy: [facility], 162.56, cm, 03/13/22 13:29:00 CDT, Height, 80, kg, 03/13/22 13:29:00 CDT, Weight lamoTRIgine 2021-06 Yes See Memori a 200 mg oral 1-17 Instructio l tablet 20:03: ns, TAKE 1 Dianne nn 00 TABLET BY MOUTH TWICE A DAY^1R1,1R 4, # 60 tab, 3 Refill(s), Pharmacy: [facility], 162.56, cm, 03/13/22 13:29:00 CDT, Height, 80, kg, 03/13/22 13:29:00 CDT, Weight lamoTRIgine 2-0 Yes See Memori a 200 mg oral 8-22 Instructio l tablet 18:34: ns, TAKE Yong 00 ONE (1) TABLET BY MOUTH TWICE DAILY, # 60 tab, 3 Refill(s), Pharmacy: [facility], 165.1, cm, 01/22/22 13:19:00 CDT, Height, 75.682, kg, 01/22/22 13:19:00 CDT, Weight lamoTRIgine 2021-0 Yes See Memori a 200 mg oral 8-22 Instructio l tablet 18:34: ns, TAKE Yong 00 ONE (1) TABLET BY MOUTH TWICE DAILY, # 60 tab, 3 Refill(s), Pharmacy: [facility], 165.1, cm, 01/22/22 13:19:00 CDT, Height, 75.682, kg, 01/22/22 13:19:00 CDT, Weight lamoTRIgine 2021-0 Yes See Memori a 200 mg oral 8-22 Instructio l tablet 18:34: ns, TAKE Yong 00 ONE (1) TABLET BY MOUTH TWICE DAILY, # 60 tab, 3 Refill(s), Pharmacy: [facility], 165.1, cm, 01/22/22 13:19:00 CDT, Height, 75.682, kg, 01/22/22 13:19:00 CDT, Weight lamoTRIgine 2021-0 Yes See Memori a 200 mg oral 8-22 Instructio l tablet 18:34: ns, TAKE [place] 00 ONE (1) TABLET BY MOUTH TWICE DAILY, # 60 tab, 3 Refill(s), Pharmacy: [facility], 165.1, cm, 01/22/22 13:19:00 CDT, Height, 75.682, kg, 01/22/22 13:19:00 CDT, Weight lamoTRIgine 2022-0 Yes See Memori a 200 mg oral 8-22 Instructio l tablet 18:34: ns, TAKE [place] 00 ONE (1) TABLET BY MOUTH TWICE DAILY, # 60 tab, 3 Refill(s), Pharmacy: [facility], 165.1, cm, 01/22/22 13:19:00 CDT, Height, 75.682, kg, 01/22/22 13:19:00 CDT, Weight lamoTRIgine 2021-0 Yes See Memori a 200 mg oral 8-22 Instructio l tablet 18:34: ns, TAKE Yong 00 ONE (1) TABLET BY MOUTH TWICE DAILY, # 60 tab, 3 Refill(s), Pharmacy: [facility], 165.1, cm, 01/22/22 13:19:00 CDT, Height, 75.682, kg, 01/22/22 13:19:00 CDT, Weight lamoTRIgine 2021-0 Yes See Memori a 200 mg oral 8-22 Instructio l tablet 18:34: ns, TAKE [place] 00 ONE (1) TABLET BY MOUTH TWICE DAILY, # 60 tab, 3 Refill(s), Pharmacy: [facility], 165.1, cm, 01/22/22 13:19:00 CDT, [...] mg oral 8-22 Refill(s) l tablet 18:31: [place] pioglitazon 2-0 Yes 0 Memori a e 30 mg 8-22 Refill(s) l oral tablet 18:20: [facility] pioglitazon 2-0 Yes 0 Memori a e 30 mg 8-22 Refill(s) l oral tablet 18:20: [facility] pioglitazon 2-0 Yes 0 Memori a e 30 mg 8-22 Refill(s) l oral tablet 18:20: [facility] pioglitazon 2-0 Yes 0 Memori a e 30 mg 8-22 Refill(s) l oral tablet 18:20: [facility] pioglitazon 2-0 Yes 0 Memori a e 30 mg 8-22 Refill(s) l oral tablet 18:20: [facility] pioglitazon 2-0 Yes 0 Memori a e 30 mg 8-22 Refill(s) l oral tablet 18:20: [facility] pioglitazon 2-0 Yes 0 Memori a e 30 mg 8-22 Refill(s) l oral tablet 18:20: Guille n lisinopriL 2022-0 2022- No [id number] 5mg Take 1 Univers 5 mg tablet 8-17 11-16 tablet by it y of 00:00: 05:59 mouth in [place] 00 :00 [facility] for 90 days. lisinopriL 2022-0 2022- No [id number] 5mg Take 1 Univers 5 mg tablet 8-17 11-16 tablet by it y of 00:00: 05:59 mouth in [place] 00 :00 [facility] for 90 days. lisinopriL 2022-0 2022- No [id number] 5mg Take 1 Univers 5 mg tablet 8-17 11-16 tablet by it y of 00:00: 05:59 mouth in [place] 00 :00 [facility] for 90 days. lisinopriL 2022-0 2022- No [id number] 5mg Take 1 Univers 5 mg tablet 8-17 11-16 tablet by it y of 00:00: 05:59 mouth in [place] 00 :00 [facility] for 90 days. lisinopriL 2022-0 2022- No [id number] 5mg Take 1 Univers 5 mg tablet 01-17 tablet by it y of 00:00: 05:59 mouth in [place] 00 :00 [facility] for 90 days. lisinopriL 0 2021- No [id number] 5mg Take 1 Univers 5 mg tablet 01-17 tablet by it y of 00:00: 05:59 mouth in [place] 00 :00 [facility] for 90 days. lisinopriL 0 2021- No [id number] 5mg Take 1 Univers 5 mg tablet 01-17 tablet by it y of 00:00: 05:59 mouth in [place] 00 :00 [facility] for 90 days. lisinopriL 2021-0 Yes 5mg 5 mg, Univer s (PRINIVIL,Z - Oral, ity of ESTRIL) 15:00: DAILY, [place] tablet 5 mg 00 First dose Me dical on [facility] 01/16/22 at 1000, Until Discontinu ed, Routine [...] First dose [place] mg 00 on [facility] 01/16/22 at Branch 0800, Until Discontinu ed, Routine gabapentin 2021-0 Yes 300mg 300 mg, Uni vers (NEURONTIN) 816 Oral, TID, it y of capsule 300 13:00: First dose [place] mg 00 on [facility] 01/16/22 at Branch 0800, Until Discontinu ed, Routine pramipexole 2022-0 Yes 2mg 2 mg, Unive rs (MIRAPEX) 8-16 Oral, TID, ity of tablet 2 mg 02:30: First dose (after Medical last Branch modificati on) on [facility] 01/15/22 at 2130, Until Discontinu ed rosuvastati 2021-0 Yes 5mg 5 mg, Unive rs n (CRESTOR) 8-16 Oral, QHS, it y of tablet 5 mg 02:00: First dose on [facility] [place] 01/15/22 at [place] 2100, Until Discontinu ed, Routine apixaban 2021-0 Yes 5mg 5 mg, Univers (ELIQUIS) 8-16 Oral, BID, ity of tablet 5 mg 01:00: First dose on [facility] [place] 01/15/22 at [place] 2000, Until Discontinu ed, Routine
Indicatio ns: DVT/PE famotidine 2021-0 Yes 20mg 20 mg, Unive rs (PEPCID AC) 8-16 Oral, BID, it y of tablet 20 01:00: First dose [place] mg 00 on [facility] [place] 01/15/22 at [place] 1999, Until Discontinu ed, Routine Insulin 0 Yes [id number] 5U inject 5 Un meri Glargine 8-16 Units ity of (BASAGLAR 00:00: under the [place] as KWIKPEN 00 skin in [address] INSULIN) morning. 100 unit/mL (3 mL) injection Insulin 2021-0 Yes [id number] 5U inject 5 Un meri Glargine 8-16 Units ity of (BASAGLAR 00:00: under the [place] as KWIKPEN 00 skin in [facility] [address] INSULIN) morning. 100 unit/mL (3 mL) injection Insulin 2021-0 Yes [id number] 5U inject 5 Un meri Glargine 8-16 Units ity of (BASAGLAR 00:00: under the [place] as KWIKPEN 00 skin in [facility] [address] INSULIN) morning. 100 unit/mL (3 mL) injection Insulin 2021-0 Yes [id number] 5U inject 5 Un meri Glargine 8-16 Units ity of (BASAGLAR 00:00: under the [place] as KWIKPEN 00 skin in Medical U-100 the Branch INSULIN) morning. 100 unit/mL (3 mL) injection Insulin 0 Yes [id number] 5U inject 5 Un meri Glargine 8-16 Units ity of (BASAGLAR 00:00: under the [place] as KWIKPEN 00 skin in Medical U-100 the Branch INSULIN) morning. 100 unit/mL (3 mL) injection Insulin 0 Yes [id number] 5U inject 5 Un meri Glargine 8-16 Units ity of (BASAGLAR 00:00: under the [place] as KWIKPEN 00 skin in Medical U-100 the Branch INSULIN) morning. 100 unit/mL (3 mL) injection Insulin 0 Yes [id number] 5U inject 5 Un meri Glargine 8-16 Units ity of (BASAGLAR 00:00: under the [place] as KWIKPEN 00 skin in Medical U-100 the Branch INSULIN) morning. 100 unit/mL (3 mL) injection Insulin 0 Yes [id number] 5U inject 5 Un meri Glargine 8-16 Units ity of (BASAGLAR 00:00: under the [place] as KWIKPEN 00 skin in Medical U-100 the Branch INSULIN) morning. 100 unit/mL (3 mL) injection Insulin 0 Yes [id number] 5U inject 5 Un meri Glargine 8-16 Units ity of (BASAGLAR 00:00: under the [place] as KWIKPEN 00 skin in Medical U-100 the Branch INSULIN) morning. 100 unit/mL (3 mL) injection Insulin 0 Yes [id number] 5U inject 5 Un meri Glargine 8-16 Units ity of (BASAGLAR 00:00: under the [place] as KWIKPEN 00 skin in Medical U-100 the Branch INSULIN) morning. 100 unit/mL (3 mL) injection Insulin 0 Yes [id number] 5U inject 5 Un meri Glargine 8-16 Units ity of (BASAGLAR 00:00: under the [place] as KWIKPEN 00 skin in Medical U-100 the Branch INSULIN) morning. 100 unit/mL (3 mL) injection Insulin 0 Yes [id number] 5U inject 5 Un meri Glargine 8-16 Units ity of (BASAGLAR 00:00: under the [place] as KWIKPEN 00 skin in Medical U-100 the Branch INSULIN) morning. 100 unit/mL (3 mL) injection rosuvastati No [id number] 5mg Take 1 Univers n 5 mg 8-16 11-15 tablet by ity of tablet 00:00: 05:59 mouth at [place] 00 :00 bedtime Medical for 90 Branch days. pioglitazon No [id number] 30mg Take 1 Univers e 30 mg 8-16 11-15 tablet by ity of tablet 00:00: 05:59 mouth in [place] 00 :00 the [facility] morning Branch for 90 days. rosuvastati No [id number] 5mg Take 1 Univers n 5 mg 8-16 11-15 tablet by ity of tablet 00:00: 05:59 mouth at [place] 00 :00 bedtime [facility] for 90 Branch days. pioglitazon No [id number] 30mg Take 1 Univers e 30 mg 8-16 11-15 tablet by ity of tablet 00:00: 05:59 mouth in [place] 00 :00 the [facility] for 90 days. rosuvastati No [id number] 5mg Take 1 Univers n 5 mg 8-16 11-15 tablet by ity of tablet 00:00: 05:59 mouth at [place] 00 :00 [facility] for 90 Branch days. pioglitazon No [id number] 30mg Take 1 Univers e 30 mg 8-16 11-15 tablet by ity of tablet 00:00: 05:59 mouth in [place] 00 :00 the [facility] morning [place] for 90 days. rosuvastati No [id number] 5mg Take 1 Univers n 5 mg 8-16 11-15 tablet by ity of tablet 00:00: 05:59 mouth at [place] 00 :00 bedtime Medical for 90 Branch days. pioglitazon No [id number] 30mg Take 1 Univers e 30 mg 8-16 11-15 tablet by ity of tablet 00:00: 05:59 mouth in [place] 00 :00 the Medical morning Branch for 90 days. rosuvastati 2021- No [id number] 5mg Take 1 Univers n 5 mg 8-16 11-15 tablet by ity of tablet 00:00: 05:59 mouth at [place] 00 :00 bedtime Medical for 90 Branch days. pioglitazon 2021- No [id number] 30mg Take 1 Univers e 30 mg 8-16 11-15 tablet by ity of tablet 00:00: 05:59 mouth in [place] 00 :00 the [facility] for 90 days. rosuvastati No [id number] 5mg Take 1 Univers n 5 mg 8-16 11-15 tablet by ity of tablet 00:00: 05:59 mouth at [place] 00 :00 bedtime Medical for 90 Branch days. pioglitazon No [id number] 30mg Take 1 Univers e 30 mg 8-16 11-15 tablet by ity of tablet 00:00: 05:59 mouth in [place] 00 :00 the [facility] for 90 days. rosuvastati No [id number] 5mg Take 1 Univers n 5 mg 8-16 11-15 tablet by ity of tablet 00:00: 05:59 mouth at [place] 00 :00 [facility] for 90 Branch days. pioglitazon No [id number] 30mg Take 1 Univers e 30 mg 8-16 11-15 tablet by ity of tablet 00:00: 05:59 mouth in [place] 00 :00 the [facility] for 90 days. sulfamethox 2021- No [id number] 1{tbl} Take 1 Univers azole-trime 8-16 08-22 tablet by it y of thoprim 00:00: 04:59 mouth in [place] (BACTRIM 00 :00 the Medical DS) 800-160 morning Branc h mg per and 1 tablet tablet in the evening. Do all this for 5 days. sulfamethox No [id number] 1{tbl} Take 1 Univers azole-trime 8-16 08-22 tablet by it y of thoprim 00:00: 04:59 mouth in [place] (BACTRIM 00 :00 the Medical DS) 800-160 morning Branc h mg per and 1 tablet tablet in the evening. Do all this for 5 days. pioglitazon 2021- No [id number] 30mg Take 2 Univers e 15 mg 01-16-16 tablets by ity o f tablet 00:00: 00:00 mouth in [place] 00 :00 the Medical morning Branch for 90 days. diphenhydrA Yes 25mg 25 mg, Univ ers MINE 8-15 Oral, PRN, ity of (BENADRYL) 23:58: 1 dose, [place] tablet 25 24 Starting Medica l mg on Sat Branch 01/15/22 at 1858, Until Discontinu ed, Routine, before MRI Sliding Yes Subcutaneo [facility] ers Scale 8-15 us, TID ity of Insulin - 22:00: MEALS+HS, [place] Lispro 00 First dose Medical (HumaLOG) + on Sat [facility] 01/15/22 at Testing 1700, Until Discontinu [...] or DBP > 110 iopamidol 2021- No [id number] 100mL 100 mL, Univers (ISOVUE 01-15 08-15 Intravenou ity o f 370-500 mL) 18:30: 17:07 s, ONCE, 1 [place] injection 00 :00 dose, On Medica l 100 mL Sat Branch 01/15/22 at 1330, Routine NaCl 0.9% Yes 5mL 5 mL, Slow Un meri (NS) 8-15 IV Push, ity of injection 5 16:38: PRN - SEE [place] mL 23 INSTRUCT Medical NS, Branch Starting on 01/15/22 at [...] and Match Vaccine? Booster sulfur 2021- No [id number] 5mL 5 mL, Unive rs hexafluorid 09-23 Intravenou i ty of e microsphr 16:00: 16:00 s, ONCE, 1 [place] (LUMASON) 00 :00 dose, On Medica l injection 5 Sat Branch mL 09/23/21 at 1100, Routine
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 Take 2 tabs (10mg) two times [...] Branch 1400, Until Discontinu ed, Routine Sliding 0 Yes Subcutaneo Univ ers Scale 09-22 us, TID ity of Insulin - 17:00: MEALS+HS, [place] Lispro 00 First dose Medical (HumaLOG) + on Sat Branch [facility]sbg 09/22/21 at Testing 1200, Until Discontinu ed, Routine lamoTRIgine 0 Yes 200mg 200 mg, Un meri (LAMICTAL) [...] Sat09/22/21 at 0745, DAKOTAH iopamidol 2021- No [id number] 100mL 100 mL, Univers (ISOVUE 09-22 Intravenou ity o f 370-500 mL) 11:45: 10:42 s, ONCE, 1 [place] injection 00 :00 dose, On Medica l 100 mL Fri Branch 09/22/21 at 0645, Routine ferrous Yes 325mg QD Take 325 Metho di sulfate 325 3-[address] (65 FE) MG 18:16: mouth Hospit a tablet 00 daily with l breakfast. rosuvastati Yes Q.[id number] Take by Methodi n calcium 3-15 [id number] mouth 3 s t (ROSUVASTAT 18:16: 3W (three) Hos preeti IN ORAL) 00 times a l week. Pt doesn't remember the dosage insulin 2021-0 Yes 18U QD Inject 18 Metho di GLARGINE 3-[address] (Basaglar 18:16: under the Hos preeti KwikPen 00 skin l U-100 nightly. Insulin) 100 unit/mL injection (pen) apixaban 2022-0 Yes 5mg Q.5D Take 5 mg Meth ebenezer (ELIQUIS) 5 3-[address] mg tablet 18:16: (two) Hospita 00 times a l day. ferrous 2022-0 Yes 325mg QD Take 325 Metho di sulfate 325 3-[address] (65 FE) MG 18:16: mouth Hospit a tablet 00 daily with l breakfast. rosuvastati 2022-0 Yes Q.[id number] Take by Methodi n calcium 3-15 [id number] mouth 3 s t (ROSUVASTAT 18:16: 3W (three) Hos preeti IN ORAL) 00 times a l week. Pt doesn't remember the dosage insulin 2021-0 Yes 18U QD Inject 18 Metho di GLARGINE 3-[address] (Basaglar 18:16: under the Hos preeti KwikPen 00 skin l U-100 nightly. Insulin) 100 unit/mL injection (pen) apixaban 2-0 Yes 5mg Q.5D Take 5 mg Meth ebenezer (ELIQUIS) 5 3-[address] mg tablet 18:16: (two) Hospita 00 times a l day. insulin 2022-0 Yes 18U QD Inject 18 Metho di GLARGINE 3-[address] (Basaglar 18:16: under the Hos preeti KwikPen 00 skin l U-100 nightly. Insulin) 100 unit/mL injection (pen) apixaban 2022-0 Yes 5mg Q.5D Take 5 mg Meth ebenezer (ELIQUIS) 5 3-[address] mg tablet 18:16: (two) Hospita 00 times a l day. ferrous 2022-0 Yes 325mg QD Take 325 Metho di sulfate 325 3-[address] (65 FE) MG 18:16: mouth Hospit a tablet 00 daily with l breakfast. rosuvastati 2022-0 Yes Q.60539975 Take by Methodi n calcium 3-15 [id number] mouth 3 s t (ROSUVASTAT 18:16: 3W (three) Hos preeti IN ORAL) 00 times a l week. Pt doesn't remember the dosage ferrous 2021-0 Yes 325mg QD Take 325 Metho di sulfate 325 3-[address] (65 FE) MG 18:16: mouth Hospit a tablet 00 daily with l breakfast. rosuvastati 2021-0 Yes Q.63038230 Take by Methodi n calcium 3-15 [id number] mouth 3 s t (ROSUVASTAT 18:16: 3W [...] (two) Hospita 00 times a l day. rOPINIRole 2021-0 Yes 2mg Q.93823067 Take 2 mg Methodi (REQUIP) 1 3-14 [id number] mouth [address] MG tablet 19:14: 3D (three) Hospi ta 05 times a l day. gabapentin 2021-0 Yes 600mg Q.[id number] Take 600 Methodi (NEURONTIN) 3-14 [id number] mg by s t 300 mg 19:14: [...] times a day. rOPINIRole 2022-0 Yes 2mg Q.77883990 Take 2 mg Methodi (REQUIP) 1 3-14 [id number] mouth [address] MG tablet 19:14: 3D (three) Hospi ta 05 times a l day. gabapentin 2022-0 Yes 600mg Q.86255794 Take 600 Methodi (NEURONTIN) 3-14 [id number] mg by s t 300 mg 19:14: 3D mouth 3 Hospita capsule 05 (three) l times a day. metFORMIN 2022-0 Yes 1000mg Q.5D Take 1,000 Methodi (GLUCOPHAGE 3-[address] ) 1,000 mg 19:14: mouth 2 Hosp wu tablet 05 (two) l times a day with meals. citalopram 2022-0 Yes 40mg QD Take 40 mg M ethodi (CeleXA) 40 3-[address] MG tablet 19:14: daily. Hospit a 05 l clopidogreL 2022-0 Yes 75mg QD Take 75 mg Methodi (PLAVIX) 75 3-[address] mg tablet 19:14: daily. Hospit a 05 l lamoTRIgine 2022-0 Yes 200mg Q.5D Take 200 M ethodi (LaMICtal) 3-[address] 200 MG 19:14: mouth 2 Hospita tablet 05 (two) l times a day. rOPINIRole 2022-0 Yes 2mg Q.61621130 Take 2 mg Methodi (REQUIP) 1 3-14 [id number] mouth [address] MG tablet 19:14: 3D (three) Hospi ta 05 times a l day. gabapentin 2022-0 Yes 600mg Q.57670859 Take 600 Methodi (NEURONTIN) 3-14 [id number] mg by s t 300 mg 19:14: 3D mouth 3 Hospita capsule 05 (three) l times a day. metFORMIN 2022-0 Yes 1000mg Q.5D Take 1,000 Methodi (GLUCOPHAGE 3-[address] ) 1,000 mg 19:14: mouth 2 Hosp wu tablet 05 (two) l times a day with meals. citalopram 2022-0 Yes 40mg QD Take 40 mg M ethodi (CeleXA) 40 3-[address] MG tablet 19:14: daily. Hospit a 05 l clopidogreL 2022-0 Yes 75mg QD Take 75 mg Methodi (PLAVIX) 75 3-[address] mg tablet 19:14: daily. Hospit a 05 l lamoTRIgine 2022-0 Yes 200mg Q.5D Take 200 M ethodi (LaMICtal) 3-[address] 200 MG 19:14: mouth 2 Hospita tablet 05 (two) l times a day. rOPINIRole 2022-0 Yes 2mg Q.12751425 Take 2 mg Methodi (REQUIP) 1 3-[id number] mouth [address] MG tablet 19:14: 3D (three) Hospi ta 05 times a l day. gabapentin 2022-0 Yes 600mg Q.[id number] Take 600 Methodi (NEURONTIN) 3-14 [id number] mg by s t 300 mg 19:14: 3D mouth 3 Hospita capsule 05 (three) l times a day. metFORMIN 2022-0 Yes 1000mg Q.5D Take 1,000 Methodi (GLUCOPHAGE 3-[address] ) 1,000 mg 19:14: mouth 2 Hosp wu tablet 05 (two) l times a day with meals. citalopram 2022-0 Yes 40mg QD Take 40 mg M ethodi (CeleXA) 40 3-[address] MG tablet 19:14: daily. Hospit a 05 l clopidogreL 2022-0 Yes 75mg QD Take 75 mg Methodi (PLAVIX) 75 3-[address] mg tablet 19:14: daily. Hospit a 05 l lamoTRIgine 2022-0 Yes 200mg Q.5D Take 200 M ethodi (LaMICtal) 3-[address] 200 MG 19:14: mouth 2 Hospita tablet 05 (two) l times a day. 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, 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 lamoTRIgine 2021-0 Yes See Memori a 200 mg oral 3-09 Instructio l tablet 18:22: ns, TAKE [place] 00 ONE (1) TABLET BY MOUTH TWICE DAILY, # 60 tab, 3 Refill(s), Pharmacy: [facility], 165.1, cm, 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, 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, 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, kg, 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, 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 lamoTRIgine 2021-0 Yes See Memori a 200 mg oral 3-09 Instructio l tablet 18:22: ns, TAKE [place] 00 ONE (1) TABLET BY MOUTH TWICE DAILY, # 60 tab, 3 Refill(s), Pharmacy: [facility], 165.1, cm, 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, 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, 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, kg, 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, 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 lamoTRIgine 2021-0 Yes See Memori a 200 mg oral 3-09 Instructio l tablet 18:22: ns, TAKE Yong 00 ONE (1) TABLET BY MOUTH TWICE DAILY, # 60 tab, 3 Refill(s), Pharmacy: [facility], 165.1, cm, 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, 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, 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, kg, 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, 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 lamoTRIgine 2021-0 Yes See Memori a 200 mg oral 3-09 Instructio l tablet 18:22: ns, TAKE [place] 00 ONE (1) TABLET BY MOUTH TWICE DAILY, # 60 tab, 3 Refill(s), Pharmacy: [facility], 165.1, cm, 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, 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, 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, kg, 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, 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 lamoTRIgine 2021-0 Yes See Memori a 200 mg oral 3-09 Instructio l tablet 18:22: ns, TAKE [place] 00 ONE (1) TABLET BY MOUTH TWICE DAILY, # 60 tab, 3 Refill(s), Pharmacy: [facility], 165.1, cm, 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, 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, 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, kg, 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, 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 lamotrigine 2020-06 Yes = 1 tab, Me moria 200 MG Oral 0-13 PO, BID, # l Tablet 22:55: 60 tab, 3 Guille n 00 Refill(s), Pharmacy: [facility] ([facility]3], 162.56, cm, 02/08/21 14:52:00 CDT, Height, 82.727, kg, 02/08/21 14:52:00 CDT, Weight lamotrigine 2020-06 Yes = 1 tab, Me moria 200 MG Oral 0-13 PO, BID, # l Tablet 22:55: 60 tab, 3 [place] n 00 Refill(s), Pharmacy: [facility], 162.56, cm, 02/08/21 14:52:00 CDT, Height, 82.727, kg, 02/08/21 14:52:00 CDT, Weight lamotrigine 2020-06 Yes = 1 tab, Me moria 200 MG Oral 0-13 PO, BID, # l Tablet 22:55: 60 tab, 3 [place] n 00 Refill(s), Pharmacy: [facility], 162.56, cm, 02/08/21 14:52:00 CDT, Height, 82.727, kg, 02/08/21 14:52:00 CDT, Weight lamotrigine 2020-06 Yes = 1 tab, Me moria 200 MG Oral 0-13 PO, BID, # l Tablet 22:55: 60 tab, 3 [place] n 00 Refill(s), Pharmacy: [facility], 162.56, cm, 02/08/21 14:52:00 CDT, Height, 82.727, kg, 02/08/21 14:52:00 CDT, Weight lamotrigine 2020-06 Yes = 1 tab, Me moria 200 MG Oral 0-13 PO, BID, # l Tablet 22:55: 60 tab, 3 [place] n 00 Refill(s), Pharmacy: [facility], 162.56, cm, 02/08/21 14:52:00 CDT, Height, 82.727, kg, 02/08/21 14:52:00 CDT, Weight lamotrigine 2020-06 Yes = 1 tab, Me moria 200 MG Oral 0-13 PO, BID, # l Tablet 22:55: 60 tab, 3 [place] n 00 Refill(s), Pharmacy: [facility], 162.56, cm, 02/08/21 14:52:00 CDT, Height, 82.727, kg, 02/08/21 14:52:00 CDT, Weight lamotrigine 2020-06 Yes = 1 tab, Me moria 200 MG Oral 0-13 PO, BID, # l Tablet 22:55: 60 tab, 3 [place] n 00 Refill(s), Pharmacy: [facility], 162.56, cm, 02/08/21 14:52:00 CDT, Height, 82.727, kg, 02/08/21 14:52:00 CDT, Weight apixaban 5 2020-0 Yes 5 mg, PO, Me moria MG Oral 9- Q12H, tab, l Tablet 20:15: 3 Yong [Eliquis] 00 Refill(s) Eliquis 5 2020-0 Yes 5 mg, PO, Mem oria mg oral - Q12H, tab, l tablet 20:15: 3 [place] 00 Refill(s) apixaban 5 2020-0 Yes 5 mg, PO, Me moria MG Oral 9- Q12H, tab, l Tablet 20:15: 3 [place] [Eliquis] 00 Refill(s) Eliquis 5 2020-0 Yes 5 mg, PO, Mem oria mg oral 9- Q12H, tab, l tablet 20:15: 3 [place] 00 Refill(s) apixaban 5 2020-0 Yes 5 mg, PO, Me moria MG Oral 9- Q12H, tab, l Tablet 20:15: 3 [place] [Eliquis] 00 Refill(s) Eliquis 5 2020-0 Yes 5 mg, PO, Mem oria mg oral 02-08 Q12H, tab, l tablet 20:15: 3 [place] 00 Refill(s) apixaban 5 2020-0 Yes 5 mg, PO, Me moria MG Oral 02-08 Q12H, tab, l Tablet 20:15: 3 [place] [Eliquis] 00 Refill(s) Eliquis 5 2020-0 Yes 5 mg, PO, Mem oria mg oral 02-08 Q12H, tab, l tablet 20:15: 3 [place] 00 Refill(s) apixaban 5 2020-0 Yes 5 mg, PO, Me moria MG Oral 02-08 Q12H, tab, l Tablet 20:15: 3 [place] [Eliquis] 00 Refill(s) Eliquis 5 2020-0 Yes 5 mg, PO, Mem oria mg oral 02-08 Q12H, tab, l tablet 20:15: 3 [place]ong 00 Refill(s) apixaban 5 2020-0 Yes 5 mg, PO, Me moria MG Oral 02-08 Q12H, tab, l Tablet 20:15: 3 [place] [Eliquis] 00 Refill(s) Eliquis 5 2020-0 Yes 5 mg, PO, Mem oria mg oral 02-08 Q12H, tab, l tablet 20:15: 3 [place] 00 Refill(s) apixaban 5 2020-0 Yes 5 mg, PO, Me moria MG Oral 02-08 Q12H, tab, l Tablet 20:15: 3 [place] [Eliquis] 00 Refill(s) Eliquis 5 2020-0 Yes 5 mg, PO, Mem oria mg oral 02-08 Q12H, tab, l tablet 20:15: 3 [place]ong 00 Refill(s) lactobacill 2020-0 Yes .5mg 0.5 mg, Uni vers us 8- Oral, BID, ity of acidophilus 13:00: First dose [place] tablet 0.5 00 on Tue Medical mg 01/24/21 at Branch 0800, Until Discontinu ed, Routine amoxicillin 2020-0 Yes 500mg 500 mg, Un meri -pot 8-24 Oral, TID, ity of clavulanate 13:00: First dose [place] 500 mg 00 on [facility] (AUGMENTIN 01/24/21 at [facility] 500) 0800, 500-125 mg Until tablet 500 Discontinu mg ed, DAKOTAH
Re ason for Anti-Infec tive: Empiric Therapy for Suspected Infection< br>Empiric Therapy Site: Urine
D uration of therapy: 7 days lactobacill Yes .5mg 0.5 mg, Uni [facility] us 8- Oral, BID, ity of acidophilus 13:00: First dose [place] tablet 0.5 00 on [facility] mg 01/24/21 at Branch 0800, Until Discontinu ed, Routine amoxicillin Yes 500mg 500 mg, Un meri -pot 8-24 Oral, TID, ity of clavulanate 13:00: First dose [place] 500 mg 00 on [facility] (AUGMENTIN 01/24/21 at [facility] 500) 0800, 500-125 mg Until tablet 500 Discontinu mg ed, DAKOTAH
Re ason for Anti-Infec tive: Empiric Therapy for Suspected Infection< br>Empiric Therapy Site: Urine
D uration of therapy: 7 days lactobacill 2020- No [id number] .5mg Take 1 [facility] 01-24 tablet by ity of acidophilus 00:00: 04:59 mouth 2 [place] 00 :00 (two) Medical times Branch daily for 30 days. lactobacill 2020-2020- No [id number] .5mg Take 1 [facility] 01-24 tablet by ity of acidophilus 00:00: 04:59 mouth 2 [place] 00 :00 (two) Medical times Branch daily for 30 days. lactobacill 2020-0 2020- No [id number] .5mg Take 1 [facility] us 01-24 tablet by ity of acidophilus 00:00: 04:59 mouth 2 [place] 00 :00 (two) Medical times Branch daily for 30 days. lactobacill 2020- No [id number] .5mg Take 1 [facility] 01-24 tablet by ity of acidophilus 00:00: 04:59 mouth 2 [place] 00 :00 (two) Medical times Branch daily for 30 days. lactobacill 2020- No [id number] .5mg Take 1 [facility] 01-24 tablet by ity of acidophilus 00:00: 04:59 mouth 2 [place] 00 :00 (two) Medical times Branch daily for 30 days. lactobacill 2020- No [id number] .5mg Take 1 [facility] 01-24 tablet by ity of acidophilus 00:00: 04:59 mouth 2 [place] 00 :00 (two) Medical times Branch daily for 30 days. amoxicillin 2020- No [id number] 500mg Take 1 Univers -pot 01-24 tablet by ity of clavulanate 00:00: 04:59 mouth 3 [place] 500 mg 00 :00 (three) Medical 500-125 mg times Branch tablet daily for 10 days. amoxicillin 2020- No [id number] 500mg Take 1 Univers -pot 01-24 tablet by ity of clavulanate 00:00: 04:59 mouth 3 [place] 500 mg 00 :00 (three) Medical 500-125 mg times Branch tablet daily for 10 days. amoxicillin 2020- No [id number] 500mg Take 1 Univers -pot 01-24 tablet by ity of clavulanate 00:00: 04:59 mouth 3 [place] 500 mg 00 :00 (three) Medical 500-125 mg times Branch tablet daily for 10 days. amoxicillin 2020- No [id number] 500mg Take 1 Univers -pot 01-24 tablet by ity of clavulanate 00:00: 04:59 mouth 3 [place] 500 mg 00 :00 (three) Medical 500-125 mg times Branch tablet daily for 10 days. Sliding Yes [facility] - us, TID ity of Insulin - 17:00: MEALS+HS, [place] as Lispro 00 First dose Medical (HumaLOG) + on Sat Branch Fsbg 01/21/21 at Testing 1200, Until Discontinu ed, Routine Sliding 2021-0 Yes Subcutaneo Univ ers Scale 01-21 us, TID ity of Insulin - 17:00: MEALS+HS, [place] Lispro 00 First dose Medical (HumaLOG) + on [facility] Branch Fsbg 01/21/21 at Testing 1200, Until Discontinu ed, Routine iopamidol 2020- No [id number] 100mL 100 mL, Univers (ISOVUE 01-21 Intravenou ity o f 370-500 mL) 16:45: 15:22 s, ONCE, 1 [place] injection 00 :00 dose, Sat Medic al 100 mL 01/21/21 at Branch 1145, Routine iopamidol 2020- No [id number] 100mL 100 mL, [facility] (ISOVUE 01-21 Intravenou ity o f 370-500 mL) 16:45: 15:22 s, ONCE, 1 [place] injection 00 :00 dose, Sat Medic al 100 mL 01/21/21 at Branch 1145, Routine rOPINIRole Yes 2mg 2 mg, Univer s (REQUIP) 01-21 Oral, TID, ity o f tablet 2 mg 15:30: First dose [place] 00 on [facility] 01/21/21 at Branch 1030, Until Discontinu ed, Routine rOPINIRole Yes 2mg 2 mg, Univer s (REQUIP) 01-21 Oral, TID, ity o f tablet 2 mg 15:30: First dose 00 on [facility] 01/21/21 at Branch 1030, Until Discontinu ed, Routine citalopram Yes 40mg 40 mg, Unive rs (CELEXA) 01-21 Oral, ity of tablet 40 14:00: DAILY, [place] mg 00 First dose Medical on [facility] 01/21/21 at 0900, Until Discontinu ed, Routine citalopram 0 Yes 40mg 40 mg, Unive rs (CELEXA) 01-21 Oral, ity of tablet 40 14:00: DAILY, [place] mg 00 First dose Medical on [facility] 01/21/21 at 0900, Until Discontinu ed, Routine piperacilli 2020- No 3.375g 3.375 g, Univers n-tazobacta 01-21-24 IV ity of m (ZOSYN) 14:00: 08:45 [place], [place] 3.375 g in 00 :15 Q6H ABX, Medic al NaCl 0.9% First dose Bran ch (NS) 100 mL on Sat MINI-BAG 01/21/21 at 0900, Until Discontinu ed, Administer over 30 Minutes, 100 mL
Reas on for Anti-Infec tive: Empiric Therapy for Suspected Infection< br>Empiric Therapy Site: Urine
D uration of therapy: 7 days piperacilli 2020-0 202- No 3.375g 3.375 g, Univers n-tazobacta 01-2124 IV ity of annie (ZOSYN) 14:00: 08:45 [place], [place] 3.375 g in 00 :15 Q6H ABX, Medic al NaCl 0.9% First dose Bran ch (NS) 100 mL on [facility] MINI-BAG 01/21/21 at 0900, Until Discontinu ed, Administer over 30 Minutes, 100 mL
Reas on for Anti-Infec tive: Empiric Therapy for Suspected Infection< br>Empiric Therapy Site: Urine
D uration of therapy: 7 days lamoTRIgine 0 Yes 200mg 200 mg, Un meri (LAMICTAL) 01-21 Oral, BID, ity of tablet 200 13:00: First dose [place] mg 00 on [facility] 01/21/21 at Branch 0800, Until Discontinu ed, Routine gabapentin 2020-0 Yes 600mg 600 mg, Uni vers (NEURONTIN) 01-21 Oral, TID, it y of capsule 600 13:00: First dose [place] mg 00 on [facility] 01/21/21 at Branch 0800, Until Discontinu ed, Routine apixaban 2020-0 Yes 1477 5mg 5 mg, Univers (ELIQUIS) 01-21 Oral, BID, ity of tablet 5 mg 13:00: First dose [place] 00 on [facility] 01/21/21 at Branch 0800, Until Discontinu ed, Routine lamoTRIgine 2020-0 Yes 200mg 200 mg, Un meri (LAMICTAL) 01-21 Oral, BID, ity of tablet 200 13:00: First dose [place] mg 00 on [facility] 01/21/21 at Branch 0800, Until Discontinu ed, Routine gabapentin 2021-0 Yes 600mg 600 mg, Uni vers (NEURONTIN) 8 Oral, TID, it y of capsule 600 13:00: First dose [place] mg 00 on [facility] 01/21/21 at Branch 0800, Until Discontinu ed, Routine apixaban 2021-0 Yes 1477 5mg 5 mg, Univers (ELIQUIS) 8 Oral, BID, ity of tablet 5 mg 13:00: First dose [place] 00 on [facility] 01/21/21 at Branch 0800, Until Discontinu ed, Routine glipiZIDE 2021-0 Yes 10mg 10 mg, Univer s (GLUCOTROL) 8 Oral, ity of tablet 10 12:30: BIDAC, [place] mg 00 First dose Medical on [facility] 01/21/21 at 0730, Until Discontinu ed, Routine glipiZIDE 2021-0 Yes 10mg 10 mg, Univer s (GLUCOTROL) 8 Oral, ity of tablet 10 12:30: BIDAC, [place] mg 00 First dose Medical on [facility] 01/21/21 at 0730, Until Discontinu ed, Routine meclizine 2021-0 Yes 25mg 25 mg, Univer s (TRAVEL-EAS 8- Oral, ity of E 12:23: TIDPRN, [place] (MECLIZINE) 00 Starting Medi [place] ) tablet 25 Sat Branch mg 01/21/21 at 0723, Until Discontinu ed, Routine, Dizziness meclizine 2021-0 Yes 25mg 25 mg, Univer s (TRAVEL-EAS 8- Oral, ity of E 12:23: TIDPRN, [place] (MECLIZINE) 00 Starting Medi [place] ) tablet 25 Sat Branch mg 01/21/21 at 0723, Until Discontinu ed, Routine, Dizziness ondansetron 2021-0 Yes 4mg 4 mg, Slow Univers (ZOFRAN 8-21 IV Push, ity of (PF)) 07:03: Q6HPRN, [place] injection 4 50 Starting Medi [place]by mg [facility] 01/21/21 at 0203, Until Discontinu ed, Routine, Nausea and Vomiting (N/V) ondansetron 2021-0 Yes 4mg 4 mg, Slow Univers (ZOFRAN 8-21 IV Push, ity of (PF)) 07:03: Q6HPRN, [place] injection 4 50 Starting Medi [place]by mg Sat Branch 01/21/21 at 0203, Until Discontinu ed, Routine, Nausea and Vomiting (N/V) acetaminoph 2020-0 Yes 650mg 650 mg, Un meri en 01-21 Oral, ity of (TYLENOL) 07:03: Q6HPRN, [place] tablet 650 31 Starting Medic al mg Sat Branch 01/21/21 at 0203, Until Discontinu ed, Routine, Pain (scale 1-3) acetaminoph 2020-0 Yes 650mg 650 mg, Un meri en 01-21 Oral, ity of (TYLENOL) 07:03: Q6HPRN, [place] tablet 650 31 Starting Medic al mg [...] ity of 1,000 mg in 03:45: 03:33 [place], [place] NaCl 0.9% 00 :00 ONCE, 1 Medical (NS) 50 mL dose, Fri Bran ch MINI-BAG 01/20/21 at 2245, Administer over 30 Minutes, 50 mL
R miguel angel for Anti-Infec tive: Documented Infection< br>Documen beth Infection Site: Urine
D uration of Therapy: Other (see Comments) cefTRIAXone 2020- No 1000mg 1,000 mg, Univers (ROCEPHIN) 01-21 IV ity of 1,000 mg in 03:45: 03:33 Piggyback, [place] NaCl 0.9% 00 :00 ONCE, 1 Medical (NS) 50 mL dose, Fri Bran ch MINI-BAG 01/20/21 at 2245, Administer over 30 Minutes, 50 mL
R miguel angel for Anti-Infec tive: Documented Infection< br>Documen beth Infection Site: Urine
D uration of Therapy: Other (see Comments) iopamidol 2020- No [id number] 100mL 100 mL, Univers (ISOVUE 01-21 Intravenou ity o f 370-500 mL) 01:45: 00:40 s, ONCE, 1 [place] injection 00 :00 dose, Fri Medic al 100 mL 01/20/21 at [place] 2044, Routine iopamidol 2020- No [id number] 100mL 100 mL, Univers (ISOVUE 01-21 Intravenou ity o f 370-500 mL) 01:45: 00:40 s, ONCE, 1 [place] injection 00 :00 dose, Fri Medic al 100 mL 01/20/21 at [place] 2044, Routine NaCl 0.9% 2020- No 500mL at 999 Univ ers (NS) bolus 01-21 08-21 mL/hr, 500 it y of infusion 01:09: 01:31 mL, IV [place] 500 mL 00 :00 Infusion, Medical ONCE, 1 Branch dose, Sat01/20/21 at 2014, STAT NaCl 0.9% 2020-0 2020- No 500mL at 999 Univ ers (NS) bolus 01-21 08-21 mL/hr, 500 it y of infusion 01:09: 01:31 mL, IV [place] 500 mL 00 :00 Infusion, Medical ONCE, 1 Branch dose, Sat01/20/21 at 2014, STAT clopidogrel 2020- Yes 0 Memori a 75 mg oral 7-08 Refill(s) l tablet 15:02: Yong 00 Metformin 2020-0 Yes TAKE ONE Juan srikanth hydrochlori 7-08 (1) TABLET l de 1000 MG 15:02: BY MOUTH Her velásquez Oral Tablet 00 TWICE DAILY citalopram Yes 40 mg = 1 Me moria 40 mg oral 7-08 tab, PO, l tablet 15:02: Daily, # [place] 00 30 tab, 0 Refill(s) metFORMIN Yes TAKE ONE Juan srikanth 1000 mg 7-08 (1) TABLET l oral tablet 15:02: BY MOUTH He rmann 00 TWICE DAILY clopidogrel Yes 0 Memori a 75 mg oral 7-08 Refill(s) l tablet 15:02: [place] Metformin Yes TAKE ONE Juan srikanth hydrochlori [...] 7-08 Refill(s) l tablet 15:02: Yong 00 Metformin Yes TAKE ONE Jaun srikanth hydrochlori [...] mg oral 7-08 Refill(s) l tablet 15:02: [place] Metformin Yes TAKE ONE Juan srikanth hydrochlori [...] 7-08 Refill(s) l tablet 15:02: Yong 00 Metformin Yes TAKE ONE Juan srikanth hydrochlori 7-08 (1) TABLET l de 1000 MG 15:02: BY MOUTH Her velásquez Oral Tablet 00 TWICE DAILY citalopram Yes 40 mg = 1 Me moria 40 mg oral 7-08 tab, PO, l tablet 15:02: Daily, # [place] 00 30 tab, 0 Refill(s) metFORMIN Yes TAKE ONE Juan srikanth 1000 mg 7-08 (1) TABLET l oral tablet 15:02: BY MOUTH He rmann 00 TWICE DAILY clopidogrel Yes 0 Memori a 75 mg oral 7-08 Refill(s) l tablet 15:02: [place] 00 citalopram Yes 40 mg = 1 Me moria 40 mg oral 7-08 tab, PO, l tablet 15:02: Daily, # [place] 00 30 tab, 0 Refill(s) clopidogrel Yes 0 Memori a 75 mg oral 7-08 Refill(s) l tablet 15:02: Yong 00 Metformin Yes TAKE ONE Juan srikanth hydrochlori 7-08 (1) TABLET l de 1000 MG 15:02: BY MOUTH Her velásquez Oral Tablet 00 TWICE DAILY citalopram Yes 40 mg = 1 Me moria 40 mg oral 7-08 tab, PO, l tablet 15:02: Daily, # [place] 00 30 tab, 0 Refill(s) metFORMIN Yes TAKE ONE Juan srikanth 1000 mg 7-08 (1) TABLET l oral tablet 15:02: BY MOUTH He rmann 00 TWICE DAILY Metformin Yes TAKE ONE Juan srikanth hydrochlori 7-08 (1) TABLET l de 1000 MG 15:02: BY MOUTH Her velásquez Oral Tablet 00 TWICE DAILY clopidogrel Yes 0 Memori a 75 mg oral 7-08 Refill(s) l tablet 15:02: [place] 00 Metformin Yes TAKE ONE Juan srikanth [...] mg oral 7-08 Refill(s) l tablet 15:02: [place] 00 citalopram Yes 40 mg = 1 Me moria 40 mg oral 7-08 tab, PO, l tablet 15:02: Daily, # [place] 00 30 tab, 0 Refill(s) Metformin Yes TAKE ONE Juan srikanth hydrochlori 7-08 (1) TABLET l de 1000 MG 15:02: BY MOUTH Her velásquez Oral Tablet 00 TWICE DAILY gabapentin Yes = 2 cap, Mem oria 300 mg oral 7-08 PO, TID, # l capsule 14:57: 540 [place] 00 unknown unit, 2 Refill(s), Pharmacy: [facility], 162.56, cm, 12/08/20 9:45:00 CDT, Height, 80.909, kg, 12/08/20 9:45:00 CDT, Weight rOPINIRole Yes = 1 tab, Mem oria 2 mg oral 7-08 PO, TID, # l tablet 14:57: 270 tab, 2 Dianne nn 00 Refill(s), Pharmacy: [facility], 162.56, cm, 12/08/20 9:45:00 CDT, Height, 80.909, kg, 12/08/20 9:45:00 CDT, Weight gabapentin Yes = 2 cap, Mem oria 300 mg oral 7-08 PO, TID, # l capsule 14:57: 540 Yong 00 unknown unit, 2 Refill(s), Pharmacy: [facility], 162.56, cm, 12/08/20 9:45:00 CDT, Height, 80.909, kg, 12/08/20 9:45:00 CDT, Weight rOPINIRole 2021-0 Yes = 1 tab, Mem oria 2 mg oral 7-08 PO, TID, # l tablet 14:57: 270 tab, 2 Dianne nn 00 Refill(s), Pharmacy: [facility], 162.56, cm, 12/08/20 9:45:00 CDT, Height, 80.909, kg, 12/08/20 9:45:00 CDT, Weight gabapentin 202-0 Yes = 2 cap, Mem oria 300 mg oral 7-08 PO, TID, # l capsule 14:57: 540 [place] 00 unknown unit, 2 Refill(s), Pharmacy: [facility], 162.56, cm, 12/08/20 9:45:00 CDT, Height, 80.909, kg, 12/08/20 9:45:00 CDT, Weight rOPINIRole 202-0 Yes = 1 tab, Mem oria 2 mg oral 7-08 PO, TID, # l tablet 14:57: 270 tab, 2 Dianne nn 00 Refill(s), Pharmacy: [facility], 162.56, cm, 12/08/20 9:45:00 CDT, Height, 80.909, kg, 12/08/20 9:45:00 CDT, Weight gabapentin 2020-0 Yes = 2 cap, Mem oria 300 mg oral 7-08 PO, TID, # l capsule 14:57: 540 [place] 00 unknown unit, 2 Refill(s), Pharmacy: [facility], 162.56, cm, 12/08/20 9:45:00 CDT, Height, 80.909, kg, 12/08/20 9:45:00 CDT, Weight rOPINIRole 202-0 Yes = 1 tab, Mem oria 2 mg oral 7-08 PO, TID, # l tablet 14:57: 270 tab, 2 Dianne nn 00 Refill(s), Pharmacy: [facility], 162.56, cm, 12/08/20 9:45:00 CDT, Height, 80.909, kg, 12/08/20 9:45:00 CDT, Weight gabapentin 202-0 Yes = 2 cap, Mem oria 300 mg oral 7-08 PO, TID, # l capsule 14:57: 540 [place] 00 unknown unit, 2 Refill(s), Pharmacy: [facility], 162.56, cm, 12/08/20 9:45:00 CDT, Height, 80.909, kg, 12/08/20 9:45:00 CDT, Weight rOPINIRole 2021-0 Yes = 1 tab, Mem oria 2 mg oral 7-08 PO, TID, # l tablet 14:57: 270 tab, 2 Dianne nn 00 Refill(s), Pharmacy: [facility], 162.56, cm, 12/08/20 9:45:00 CDT, Height, 80.909, kg, 12/08/20 9:45:00 CDT, Weight gabapentin 2021-0 Yes = 2 cap, Mem oria 300 mg oral 7-08 PO, TID, # l capsule 14:57: 540 Yong 00 unknown unit, 2 Refill(s), Pharmacy: [facility], 162.56, cm, 12/08/20 9:45:00 CDT, Height, 80.909, kg, 12/08/20 9:45:00 CDT, Weight rOPINIRole 2021-0 Yes = 1 tab, Mem oria 2 mg oral 7-08 PO, TID, # l tablet 14:57: 270 tab, 2 Dianne nn 00 Refill(s), Pharmacy: [facility], 162.56, cm, 12/08/20 9:45:00 CDT, Height, 80.909, kg, 12/08/20 9:45:00 CDT, Weight gabapentin 2021-0 Yes = 2 cap, Mem oria 300 mg oral 7-08 PO, TID, # l capsule 14:57: 540 Yong 00 unknown unit, 2 Refill(s), Pharmacy: [facility], 162.56, cm, 12/08/20 9:45:00 CDT, Height, 80.909, kg, 12/08/20 9:45:00 CDT, Weight rOPINIRole 2021-0 Yes = 1 tab, Mem oria 2 mg oral 7-08 PO, TID, # l tablet 14:57: 270 tab, 2 Dianne nn 00 Refill(s), Pharmacy: [facility], 162.56, cm, 12/08/20 9:45:00 CDT, Height, 80.909, kg, 12/08/20 9:45:00 CDT, Weight ciprofloxac 2020-0 Yes 0 Memori a in 500 mg 7-08 Refill(s) l oral tablet 14:51: Gu[place] n 00 ciprofloxac 2020-0 Yes 0 Memori a in 500 mg 7-08 Refill(s) l oral tablet 14:51: [place] n 00 ciprofloxac 2020-0 Yes 0 Memori a in [...] ea, 1 [place] n 00 Refill(s), Pharmacy: [facility], 167.64, cm, 04/02/19 10:11:00 CDT, Height, 84.091, kg, 04/02/19 10:11:00 CDT, Weight gabapentin 2020-0 Yes = 2 cap, Mem oria 300 MG Oral 1-12 PO, TID, # l Capsule 20:12: 540 cap, 1 Herm benedicto 00 Refill(s), Pharmacy: [facility], 167.64, cm, 04/02/19 10:11:00 CDT, Height, 84.091, kg, 04/02/19 10:11:00 CDT, Weight rOPINIRole 2021-0 Yes = 1 tab, Mem oria 2 mg oral 1-12 PO, TID, # l tablet 20:12: 270 ea, 1 Guille n 00 Refill(s), Pharmacy: [facility], 167.64, cm, 04/02/19 10:11:00 CDT, Height, 84.091, kg, 04/02/19 10:11:00 CDT, Weight gabapentin 2021-0 Yes = 2 cap, Mem oria 300 MG Oral 1-12 PO, TID, # l Capsule 20:12: 540 cap, 1 Herm benedicto 00 Refill(s), Pharmacy: [place] [address], 167.64, cm, 04/02/19 10:11:00 CDT, Height, 84.091, kg, 04/02/19 10:11:00 CDT, Weight rOPINIRole 2021-0 Yes = 1 tab, Mem oria 2 mg oral 1-12 PO, TID, # l tablet 20:12: 270 ea, 1 Gu[place] n 00 Refill(s), Pharmacy: [place] [address], 167.64, cm, 04/02/19 10:11:00 CDT, Height, 84.091, kg, 04/02/19 10:11:00 CDT, Weight gabapentin 2021-0 Yes = 2 cap, Mem oria 300 MG Oral 1-12 PO, TID, # l Capsule 20:12: 540 cap, 1 Herm benedicto 00 Refill(s), Pharmacy: [place] [address], 167.64, cm, 04/02/19 10:11:00 CDT, Height, 84.091, kg, 04/02/19 10:11:00 CDT, Weight rOPINIRole 2021-0 Yes = 1 tab, Mem oria 2 mg oral 1-12 PO, TID, # l tablet 20:12: 270 ea, 1 Guille n 00 Refill(s), Pharmacy: [facility], 167.64, cm, 04/02/19 10:11:00 CDT, Height, 84.091, kg, 04/02/19 10:11:00 CDT, Weight gabapentin 2021-0 Yes = 2 cap, Mem oria 300 MG Oral 1-12 PO, TID, # l Capsule 20:12: 540 cap, 1 Herm benedicto 00 Refill(s), Pharmacy: [facility], 167.64, cm, 04/02/19 10:11:00 CDT, Height, 84.091, kg, 04/02/19 10:11:00 CDT, Weight rOPINIRole 2020-0 Yes = 1 tab, Mem oria 2 mg oral 1-12 PO, TID, # l tablet 20:12: 270 ea, 1 Gu[place] n 00 Refill(s), Pharmacy: [facility], 167.64, cm, 04/02/19 10:11:00 CDT, Height, 84.091, kg, 04/02/19 10:11:00 CDT, Weight gabapentin 202-0 Yes = 2 cap, Mem oria 300 MG Oral 1-12 PO, TID, # l Capsule 20:12: 540 cap, 1 Herm benedicto 00 Refill(s), Pharmacy: [facility], 167.64, cm, 04/02/19 10:11:00 CDT, Height, 84.091, kg, 04/02/19 10:11:00 CDT, Weight rOPINIRole 2020-0 Yes = 1 tab, Mem oria 2 mg oral 1-12 PO, TID, # l tablet 20:12: 270 ea, 1 [place] n 00 Refill(s), Pharmacy: [facility], 167.64, cm, 04/02/19 10:11:00 CDT, Height, 84.091, kg, 04/02/19 10:11:00 CDT, Weight gabapentin 2021-0 Yes = 2 cap, Mem oria 300 MG Oral 1-12 PO, TID, # l Capsule 20:12: 540 cap, 1 Herm benedicto 00 Refill(s), Pharmacy: [facility], 167.64, cm, 04/02/19 10:11:00 CDT, Height, 84.091, kg, 04/02/19 10:11:00 CDT, Weight rOPINIRole 202-0 Yes = 1 tab, Mem oria 2 mg oral 1-12 PO, TID, # l tablet 20:12: 270 ea, 1 Gu[place] n 00 Refill(s), Pharmacy: [facility], 167.64, cm, 04/02/19 10:11:00 CDT, Height, 84.091, kg, 04/02/19 10:11:00 CDT, Weight rOPINIRole 202-0 Yes = 1 tab, Mem oria 2 mg oral 1-12 PO, TID, # l tablet 20:12: 270 ea, 1 Guille n 00 Refill(s), Pharmacy: [facility], 167.64, cm, 04/02/19 10:11:00 CDT, Height, 84.091, kg, 04/02/19 10:11:00 CDT, Weight gabapentin 202-0 Yes = 2 cap, Mem oria 300 MG Oral 1-12 PO, TID, # l Capsule 20:12: 540 cap, 1 Herm benedicto 00 Refill(s), Pharmacy: [facility], 167.64, cm, 04/02/19 10:11:00 CDT, Height, 84.091, kg, 04/02/19 10:11:00 CDT, Weight gabapentin 202-0 Yes = 2 cap, Mem oria 300 MG Oral 1-12 PO, TID, # l Capsule 20:12: 540 cap, 1 Herm benedicto 00 Refill(s), Pharmacy: [facility], 167.64, cm, 04/02/19 10:11:00 CDT, Height, 84.091, kg, 04/02/19 10:11:00 CDT, Weight rOPINIRole 202-0 Yes = 1 tab, Mem oria 2 mg oral 1-12 PO, TID, # l tablet 20:12: 270 ea, 1 Gu[place] n 00 Refill(s), Pharmacy: [facility], 167.64, cm, 04/02/19 10:11:00 CDT, Height, 84.091, kg, 04/02/19 10:11:00 CDT, Weight gabapentin 2021-0 Yes = 2 cap, Mem oria 300 MG Oral 1-12 PO, TID, # l Capsule 20:12: 540 cap, 1 Herm benedicto 00 Refill(s), Pharmacy: [facility], 167.64, cm, 04/02/19 10:11:00 CDT, Height, 84.091, kg, 04/02/19 10:11:00 CDT, Weight mupirocin 2 2019-0 Yes [id number] Apply to Univers % ointment 4-19 area(s) 3 ity of 00:00: (three) [place] 00 times Medical daily. Branch mupirocin 2 2020-0 Yes [id number] Apply to Univers % ointment 4-19 area(s) 3 ity of 00:00: (three) [place] 00 times Medical daily. Branch mupirocin 2 2020-0 Yes [id number] Apply to Univers % ointment 4-19 area(s) 3 ity of 00:00: (three) [place] 00 times Medical daily. Branch mupirocin 2 2020-0 Yes [id number] Apply to Univers % ointment 4-19 area(s) 3 ity of 00:00: (three) [place] 00 times Medical daily. Branch mupirocin 2 2020-0 Yes [id number] Apply to Univers % ointment 4-19 [id number] area(s) 3 it y of 00:00: (three) [place] 00 times Medical daily. Branch mupirocin 2 2019-0 2020- No [id number] Apply to Univers % ointment 4-19 - [id number] area(s) 3 i ty of 00:00: 00:00 (three) [place] 00 :00 times Medical daily. Branch mupirocin 2 2019-0 202- No [id number] Apply to Univers % ointment 4-19 -21 [id number] area(s) 3 i ty of 00:00: 00:00 (three) [place] 00 :00 times Medical daily. Branch cephALEXin 2019-0 2020- No [id number] 500mg Take 1 Univers 500 mg 09-19-27 capsule by ity of capsule 00:00: 04:59 mouth 4 [place] 00 :00 (four) Medical times Branch daily for 7 days. diphenhydrA 2019-0 Yes [id number] 25mg Take 1 Univers MINE 4-17 capsule by ity of (BENADRYL) 00:00: mouth [place] 25 mg 00 every 6 Medical capsule (six) Branch hours as needed for Allergies. doxycycline 2020-0 Yes [id number] 100mg Take 1 Univers hyclate 100 4-17 tablet by ity of mg tablet 00:00: mouth 2 [place] 00 (two) Medical times Branch daily. triamcinolo 2020-0 Yes [id number] Apply to Univers ne 4-17 area(s) 2 ity of acetonide 00:00: (two) [place] 0.1 % cream 00 times Medical daily. Branch Apply 1-2g BID to affected area. diphenhydrA 2020-0 Yes [id number] 25mg Take 1 Univers MINE 4-17 capsule by ity of (BENADRYL) 00:00: mouth [place] 25 mg 00 every 6 Medical capsule (six) Branch hours as needed for Allergies. doxycycline 2020-0 Yes [id number] 100mg Take 1 Univers hyclate 100 4-17 tablet by ity of mg tablet 00:00: mouth 2 [place] 00 (two) Medical times Branch daily. triamcinolo 2020-0 Yes [id number] Apply to Univers ne 4-17 area(s) 2 ity of acetonide 00:00: (two) [place] 0.1 % cream 00 times Medical daily. Branch Apply 1-2g BID to affected area. diphenhydrA 2020-0 Yes [id number] 25mg Take 1 Univers MINE 4-17 capsule by ity of (BENADRYL) 00:00: mouth [place] 25 mg 00 every 6 Medical capsule (six) Branch hours as needed for Allergies. doxycycline 2020-0 Yes [id number] 100mg Take 1 Univers hyclate 100 4-17 tablet by ity of mg tablet 00:00: mouth 2 [place] 00 (two) Medical times Branch daily. triamcinolo 2020-0 Yes [id number] Apply to Univers ne 4-17 area(s) 2 ity of acetonide 00:00: (two) [place] 0.1 % cream 00 times Medical daily. Branch Apply 1-2g BID to affected area. diphenhydrA 2020-0 Yes [id number] 25mg Take 1 Univers MINE 4-17 capsule by ity of (BENADRYL) 00:00: mouth [place] 25 mg 00 every 6 Medical capsule (six) Branch hours as needed for Allergies. doxycycline 2020-0 Yes [id number] 100mg Take 1 Univers hyclate 100 4-17 tablet by ity of mg tablet 00:00: mouth 2 [place] 00 (two) Medical times Branch daily. triamcinolo 2020-0 Yes [id number] Apply to Univers ne 4-17 area(s) 2 ity of acetonide 00:00: (two) [place] 0.1 % cream 00 times Medical daily. Branch Apply 1-2g BID to affected area. diphenhydrA 2020-0 Yes [id number] 25mg Take 1 Univers MINE 4-17 capsule by ity of (BENADRYL) 00:00: mouth [place] 25 mg 00 every 6 Medical capsule (six) Branch hours as needed for Allergies. doxycycline 2020-0 Yes [id number] 100mg Take 1 Univers hyclate 100 4-17 tablet by ity of mg tablet 00:00: mouth 2 [place] 00 (two) Medical times Branch daily. triamcinolo 2020-0 Yes [id number] Apply to Univers ne 4-17 area(s) 2 ity of acetonide 00:00: (two) [place] 0.1 % cream 00 times Medical daily. Branch Apply 1-2g BID to affected area. diphenhydrA 2020-0 2020- No [id number] 25mg Take 1 Univers MINE 4-17 08-21 capsule by ity of (BENADRYL) 00:00: 00:00 mouth [place] 25 mg 00 :00 every 6 Medical capsule (six) Branch hours as needed for Allergies. doxycycline 2020-0 2020- No [id number] 100mg Take 1 Univers hyclate 100 4-17 08-21 tablet by it y of mg tablet 00:00: 00:00 mouth 2 [place] 00 :00 (two) Medical times Branch daily. triamcinolo 2020-0 202- No [id number] Apply to Univers ne 4-17 08-21 area(s) 2 ity of acetonide 00:00: 00:00 (two) [place] 0.1 % cream 00 :00 times Medical daily. Branch Apply 1-2g BID to affected area. diphenhydrA 2020-0 2020- No [id number] 25mg Take 1 Univers MINE 4-17 08-21 capsule by ity of (BENADRYL) 00:00: 00:00 mouth [place] 25 mg 00 :00 every 6 Medical capsule (six) Branch hours as needed for Allergies. doxycycline 2020- No [id number] 100mg Take 1 Univers hyclate 100 09-17 tablet by it y of mg tablet 00:00: 00:00 mouth 2 [place] 00 :00 (two) Medical times Branch daily. triamcinolo 2020- No [id number] Apply to Univers ne 09-17 area(s) 2 ity of acetonide 00:00: 00:00 (two) [place] 0.1 % cream 00 :00 times Medical daily. Branch Apply 1-2g BID to affected area. lamotrigine Yes = 1 tab, Me moria 200 MG Oral 4-03 PO, BID, # l Tablet 20:13: 180 tab, 3 Dianne nn 00 Refill(s), Pharmacy: [facility] lamotrigine Yes = 1 tab, Me moria 200 MG Oral 4-03 PO, BID, # l Tablet 20:13: 180 tab, 3 Dianne nn 00 Refill(s), Pharmacy: [facility] lamotrigine Yes = 1 tab, Me moria 200 MG Oral 4-03 PO, BID, # l Tablet 20:13: 180 tab, 3 Dianne nn 00 Refill(s), Pharmacy: [facility] lamotrigine 2019- Yes = 1 tab, Me moria 200 MG Oral 4-03 PO, BID, # l Tablet 20:13: 180 tab, 3 Dianne nn 00 Refill(s), Pharmacy: [facility] lamotrigine 2019-0 Yes = 1 tab, Me moria 200 MG Oral 4-03 PO, BID, # l Tablet 20:13: 180 tab, 3 Dianne nn 00 Refill(s), Pharmacy: [facility] lamotrigine 2019-0 Yes = 1 tab, Me moria 200 MG Oral 4-03 PO, BID, # l Tablet 20:13: 180 tab, 3 Dianne nn 00 Refill(s), Pharmacy: [facility] lamotrigine 2019- Yes = 1 tab, Me [...] DAY, # 270 tab, 3 Refill(s), [facility]: [facility] rOPINIRole 0 No See Memoria 2 mg oral 3-31 Instructio l tablet 16:36: ns, TAKE 1 Dianne nn 00 TABLET BY MOUTH 3 TIMES A DAY, # 270 tab, 3 Refill(s), Pharmacy: [facility] rOPINIRole 0 No See Memoria 2 mg oral 3-31 Instructio l tablet 16:36: ns, TAKE 1 Dianne nn 00 TABLET BY MOUTH 3 TIMES A DAY, # 270 tab, 3 Refill(s), Pharmacy: [facility] apixaban 2018-06 Yes 1477 5mg [...] in Blood Vessel of the Lung apixaban 5 2018-06- No 1477 5mg Take 1 Univ [...] cap, 2 [facility] benedicto 50 Refill(s), Pharmacy: [facility] Eliquis 2018-06 Yes 5 mg, [...] 0-31 BID, 0 l 15:12: Refill(s) sitagliptan 2018- No 1{tbl} Take 1 U nivers -metformin 02-15 tablet by ity of (JANUMET) 14:37: 00:00 [place] 2 [place] 50-500 [place] 26 :00 (two) Medical per tablet times Branch daily with meals. clopidogrel 2018- No 75mg Take 75 mg Univers (PLAVIX) 75 02-15 by mouth ity of mg tablet 14:37: 00:00 daily. [place] 26 :00 [facility] Branch glipiZIDE Yes 5mg 5 mg, Univers (GLUCOTROL) 02-15 Oral, ity of tablet 5 mg 14:00: [place]ILY[place] First dose Medical on [facility] 02/15/19 at 0900, Until Discontinu ed, Routine clopidogrel 2019-0 Yes 75mg 75 mg, Univ ers (PLAVIX) 15 Oral, ity of tablet 75 14:00: DAILY, [place] mg 00 First dose Medical on [facility] 02/15/19 at 0900, Until Discontinu ed, Routine citalopram 2019-0 Yes 40mg 40 mg, Unive rs (CELEXA) 15 Oral, ity of tablet 40 14:00: DAILY, [place] mg 00 First dose Medical on [facility] 02/15/19 at 0900, Until Discontinu ed, Routine Nitrofurant 2019-0 Yes 100mg 100 mg, Un meri oin&Nit. 15 Oral, BID, ity o f Macrocryst 13:00: [place] dose [place] (MACROBID) 00 on [facility] 100 mg 02/15/19 at Branch capsule 100 0800, mg Until Discontinu ed, Routine
Reason for Anti-Infec tive: Empiric Therapy for Suspected Infection< br>Empiric Therapy Site: Urine<br&g t;Duration of therapy: 7 days lamoTRIgine 2019-0 Yes 200mg 200 mg, Un meri (LAMICTAL) 15 Oral, BID, ity of tablet 200 13:00: First dose [place] mg 00 on [facility] 02/15/19 at Branch 0800, Until Discontinu ed, Routine gabapentin 2019-0 Yes 300mg 300 mg, Uni vers (NEURONTIN) 02-15 Oral, TID, it y of capsule 300 13:00: First dose [place] mg 00 on [facility] 02/15/19 at Branch 0800, Until Discontinu ed, Routine apixaban 2019-0 Yes 10mg 10 mg, Univers (ELIQUIS) 02-15 Oral, BID, ity of tablet 10 13:00: First dose [place] mg 00 on [facility] 02/15/19 at Branch 0800, Until Discontinu ed, Routine Sliding 2019-0 Yes Subcutaneo Univ ers Scale 02-15 us, AC+HS, ity of Insulin-Reg 12:30: First dose [place] ular + Fsbg 00 on [facility] Testing 02/15/19 at Branch 0730, Until Discontinu ed, Routine dextrose 2019-0 Yes 250mL 250 mL, IV Un meri 10% (D10W) 02-15 Infusion, ity of bolus 05:13: PRN - SEE [place] infusion 08 INSTRUCTIO Medic al 250 mL NS, For Branch blood glucose < 60, Starting [place] 02/15/19 at 0013
De xtrose 10% 250 [...] KIT) 55 Starting Medical injection 1 Sun Branch mg 02/15/19 at 0012, Until Discontinu ed, DAKOTAH, Blood Glucose < or = 70 mg/dL and patient is unable to swallow or has mental changes. traMADol 2019- No 50mg 50 mg, Univer s (ULTRAM) 02-15 Oral, ity of tablet 50 05:11: 05:10 Q8HPRN, [place] mg 02 :02 Starting Medical [place] Branch 02/15/19 at 0011, Until 02/17/19 at 0010, Routine, Pain (scale 4-6) acetaminoph Yes 650mg 650 mg, Un meri en 02-15 Oral, ity of (TYLENOL) 05:10: Q6HPRN, [place] tablet 650 35 Starting Medic al mg [place] Branch 02/15/19 at 0010, Until Discontinu ed, [...] dose, Sat Medica l mL) 02/14/19 at Branch injection 2145, 120 mL Routine traMADol 2018- [...] dose, 02/14/19 at 2000, STAT citalopram Yes [id number] 40mg Take 1 [facility] 40 mg 9-15 tablet by ity of tablet 00:00: mouth [place] 00 daily. [facility] Branch citalopram Yes [id number] 40mg Take 1 [facility] 40 mg 9-15 tablet by ity of tablet 00:00: mouth [place] 00 daily. [facility] citalopram Yes [id number] 40mg Take 1 [facility] 40 mg 9-15 tablet by ity of tablet 00:00: mouth [place] 00 daily. [facility] citalopram Yes [id number] 40mg Take 1 [facility] 40 mg 9-15 tablet by ity of tablet 00:00: mouth [place] 00 daily. [facility] citalopram Yes [id number] 40mg Take 1 [facility] 40 mg 9-15 tablet by ity of tablet 00:00: mouth [place] 00 daily. Medical Branch citalopram 2018-0 Yes [id number] 40mg Take 1 [facility] 40 mg 9-15 tablet by ity of tablet 00:00: mouth [place] 00 daily. Medical Branch citalopram 2018-0 Yes [id number] 40mg Take 1 [facility] 40 mg 9-15 tablet by ity of tablet 00:00: mouth [place] 00 daily. Medical Branch glipiZIDE 2018-0 Yes [id number] 10mg Take 1 U nivers 10 mg 9-15 tablet by ity of tablet 00:00: mouth 2 00 (two) Medical times Branch daily before breakfast and dinner. citalopram 2018- Yes [id number] 40mg Take 1 [facility] 40 mg 9-15 tablet by ity of tablet 00:00: mouth [place] 00 daily. Medical Branch glipiZIDE 0 Yes [id number] 10mg Take 1 U nivers 10 mg 9-15 tablet by ity of tablet 00:00: mouth 2 00 (two) Medical times Branch daily before breakfast and dinner. citalopram 2018-0 Yes [id number] 40mg Take 1 [facility] 40 mg 9-15 tablet by ity of tablet 00:00: mouth [place] 00 daily. Medical Branch Nitrofurant 0 Yes [id number] 100mg Take 1 [facility] oin&Nit. 9-15 capsule by ity o f Macrocryst 00:00: mouth 2 [place] 100 mg 00 (two) Medical capsule times Branch daily. glipiZIDE 2018-0 Yes [id number] 10mg Take 1 U nivers 10 mg 9-15 tablet by ity of tablet 00:00: mouth 2 [place] 00 (two) Medical times Branch daily before breakfast and dinner. citalopram 2018-0 Yes [id number] 40mg Take 1 [facility] 40 mg 9-15 tablet by ity of tablet 00:00: mouth [place] 00 daily. Medical Branch Nitrofurant 2018-0 Yes [id number] 100mg Take 1 [facility] oin&Nit. 9-15 capsule by ity o f Macrocryst 00:00: mouth 2 [place] mg 00 (two) Medical capsule times Branch daily. glipiZIDE 2018-0 Yes [id number] 10mg Take 1 U nivers 10 mg 9-15 tablet by ity of tablet 00:00: mouth 2 [place] 00 (two) Medical times Branch daily before breakfast and dinner. citalopram Yes [id number] 40mg Take 1 [facility] 40 mg 9-15 tablet by ity of tablet 00:00: mouth [place] 00 daily. Medical Branch glipiZIDE Yes [id number] 10mg Take 1 U nivers 10 mg 9-15 tablet by ity of tablet 00:00: mouth (two) Medical times Branch daily before breakfast and dinner. citalopram 2018- Yes [id number] 40mg Take 1 [facility] 40 mg 9-15 tablet by ity of tablet 00:00: mouth 00 daily. Medical Branch glipiZIDE Yes [id number] 10mg Take 1 U nivers 10 mg 9-15 tablet by ity of tablet 00:00: mouth (two) Medical times Branch daily before breakfast and dinner. citalopram Yes [id number] 40mg Take 1 [facility] 40 mg 9-15 tablet by ity of tablet 00:00: mouth 00 daily. Medical Branch glipiZIDE Yes [id number] 10mg Take 1 U nivers 10 mg 9-15 tablet by ity of tablet 00:00: mouth (two) Medical times Branch daily before breakfast and dinner. citalopram 0 Yes [id number] 40mg Take 1 [facility] 40 mg 9-15 tablet by ity of tablet 00:00: mouth 00 daily. Medical Branch glipiZIDE Yes [id number] 10mg Take 1 U nivers 10 mg 9-15 tablet by ity of tablet 00:00: mouth (two) Medical times Branch daily before breakfast and dinner. citalopram Yes [id number] 40mg Take 1 [facility] 40 mg 9-15 tablet by ity of tablet 00:00: mouth 00 daily. Medical Branch glipiZIDE 0 Yes [id number] 10mg Take 1 U nivers 10 mg 9-15 tablet by ity of tablet 00:00: mouth 2 (two) Medical times Branch daily before breakfast and dinner. citalopram 2018- Yes [id number] 40mg Take 1 [facility] 40 mg 9-15 tablet by ity of tablet 00:00: mouth [place] 00 daily. Medical Branch glipiZIDE 0 Yes [id number] 10mg Take 1 U nivers 10 mg 9-15 tablet by ity of tablet 00:00: mouth (two) Medical times Branch daily before breakfast and dinner. citalopram 2018-0 Yes [id number] 40mg Take 1 [facility] 40 mg 9-15 tablet by ity of tablet 00:00: mouth [place] 00 daily. Medical Branch glipiZIDE Yes [id number] 10mg Take 1 U nivers 10 mg 9-15 tablet by ity of tablet 00:00: mouth 2 (two) Medical times Branch daily before breakfast and dinner. citalopram Yes [id number] 40mg Take 1 [facility] 40 mg 9-15 tablet by ity of tablet 00:00: mouth 00 daily. Medical Branch glipiZIDE Yes [id number] 10mg Take 1 U nivers 10 mg 9-15 tablet by ity of tablet 00:00: mouth (two) Medical times Branch daily before breakfast and dinner. citalopram 0 Yes [id number] 40mg Take 1 [facility] 40 mg 9-15 tablet by ity of tablet 00:00: mouth 00 daily. Medical Branch glipiZIDE Yes [id number] 10mg Take 1 U nivers 10 mg 9-15 tablet by ity of tablet 00:00: mouth (two) Medical times Branch daily before breakfast and dinner. citalopram 2018-0 Yes [id number] 40mg Take 1 [facility] 40 mg 9-15 tablet by ity of tablet 00:00: mouth 00 daily. Medical Branch glipiZIDE 0 Yes [id number] 10mg Take 1 U nivers 10 mg 9-15 tablet by ity of tablet 00:00: mouth (two) Medical times Branch daily before breakfast and dinner. citalopram 2018-0 Yes [id number] 40mg Take 1 [facility] 40 mg 9-15 tablet by ity of tablet 00:00: mouth [place] 00 daily. Medical Branch glipiZIDE 0 Yes [id number] 10mg Take 1 U nivers 10 mg 9-15 tablet by ity of tablet 00:00: mouth (two) Medical times Branch daily before breakfast and dinner. citalopram Yes [id number] 40mg Take 1 [facility] 40 mg 9-15 tablet by ity of tablet 00:00: mouth [place] 00 daily. Medical Branch glipiZIDE Yes [id number] 10mg Take 1 U nivers 10 mg 9-15 tablet by ity of tablet 00:00: mouth 2 [place] 00 (two) Medical times Branch daily before breakfast and dinner. citalopram Yes [id number] 40mg Take 1 [facility] 40 mg 9-15 tablet by ity of tablet 00:00: mouth [place] 00 daily. Medical Branch citalopram Yes [id number] 40mg Take 1 [facility] 40 mg 9-15 tablet by ity of tablet 00:00: mouth [place] 00 daily. Medical Branch citalopram Yes [id number] 40mg Take 1 [facility] 40 mg 9-15 tablet by ity of tablet 00:00: mouth [place] 00 daily. Medical Branch citalopram Yes [id number] 40mg Take 1 [facility] 40 mg 9-15 tablet by ity of tablet 00:00: mouth [place] 00 daily. Medical Branch citalopram Yes [id number] 40mg Take 1 [facility] 40 mg 9-15 tablet by ity of tablet 00:00: mouth [place] 00 daily. Medical Branch citalopram Yes [id number] 40mg Take 1 [facility] 40 mg 9-15 tablet by ity of tablet 00:00: mouth [place] 00 daily. Medical Branch citalopram Yes [id number] 40mg Take 1 [facility] 40 mg 9-15 tablet by ity of tablet 00:00: mouth [place] 00 daily. Medical Branch citalopram Yes [id number] 40mg Take 1 [facility] 40 mg 9-15 tablet by ity of tablet 00:00: mouth [place] 00 daily. Medical Branch citalopram Yes [id number] 40mg Take 1 [facility] 40 mg 9-15 tablet by ity of tablet 00:00: mouth [place] 00 daily. Medical Branch glipiZIDE 2021- No [id number] 10mg Take 1 [facility] 10 mg 9-15 -22 tablet by ity of tablet 00:00: 00:00 mouth 2 [place] 00 :00 (two) Medical times Branch daily before breakfast and dinner. gabapentin No = 2 cap, Mem oria 300 MG Oral 9-12 PO, TID, # l Capsule 13:17: 540 [address] 36 unknown unit, [facility] gabapentin 2019-0 No = 2 cap, Mem oria 300 MG Oral 9-12 PO, TID, # l Capsule 13:17: 540 [place] 36 unknown unit, [facility] gabapentin 2019-0 No = 2 cap, Mem oria 300 MG Oral 9-12 PO, TID, # l Capsule 13:17: 540 [place] 36 unknown unit, [facility] gabapentin 2019-0 No = 2 cap, Mem oria 300 MG Oral 9-12 PO, TID, # l Capsule 13:17: 540 [address] 36 unknown unit, [facility] [place] [id number] gabapentin 2019-0 No = 2 cap, Mem oria 300 MG Oral 9-12 PO, TID, # l Capsule 13:17: 540 [address] 36 unknown unit, [facility] gabapentin 2019-0 No = 2 cap, Mem oria 300 MG Oral 9-12 PO, TID, # l Capsule 13:17: 540 [place] 36 unknown unit, [id number] gabapentin 2019-0 No = 2 cap, Mem oria 300 MG Oral 9-12 PO, TID, # l Capsule 13:17: 540 [place] 36 unknown unit, [id number] gabapentin 2019-0 No = 2 cap, Mem oria 300 MG Oral 9-12 PO, TID, # l Capsule 13:17: 540 [address] 36 unknown unit, [facility] gabapentin 2019-0 No = 2 cap, Mem oria 300 MG Oral 9-12 PO, TID, # l Capsule 13:17: 540 [place] 36 unknown unit, [id number] cephALEXin 2019- 2019- No [id number] 500mg Take 1 [facility] (KEFLEX) 01-31 [id number] capsule by it y of 500 mg 00:00: 04:59 mouth 4 [place] capsule 00 :00 (four) Medical times Branch daily for 7 days. clopidogrel 2019- Yes 75mg Take 75 mg Univers (PLAVIX) 75 7-01 by mouth ity of mg tablet 18:08: daily. [address] clopidogrel 2019-0 Yes 75mg Take 75 mg [facility] (PLAVIX) 75 7-01 by mouth ity of mg tablet 18:08: daily. [address] clopidogrel 2019-0 Yes 75mg Take 75 mg [facility] (PLAVIX) 75 7-01 by mouth ity of mg tablet 18:08: daily. [address] metFORMIN 2019-0 Yes [id number] 1000mg Take 1 [facility] 1,000 mg 7-01 tablet by ity of tablet 00:00: mouth [place] ([facility]) Medical times Branch daily with meals. metFORMIN 2019-0 Yes [id number] 1000mg Take 1 [facility] 1,000 mg 7-01 tablet by ity of tablet 00:00: mouth [place] ([facility]) Medical times Branch daily with meals. metFORMIN 2019-0 Yes [id number] 1000mg Take 1 [facility] 1,000 mg 7-01 tablet by ity of tablet 00:00: mouth [place] ([facility]) Medical times Branch daily with meals. metFORMIN 2019-0 Yes [id number] 1000mg Take 1 [facility] 1,000 mg 7-01 tablet by ity of tablet 00:00: mouth [place] ([facility]) Medical times Branch daily with meals. metFORMIN 2019-0 Yes [id number] 1000mg Take 1 [facility] 1,000 mg 7-01 tablet by ity of tablet 00:00: mouth [place] ([facility]) Medical times Branch daily with meals. metFORMIN 2019-0 Yes [id number] 1000mg Take 1 [facility] 1,000 mg 7-01 tablet by ity of tablet 00:00: mouth [place] ([facility]) Medical times Branch daily with meals. metFORMIN 2019-0 Yes [id number] 1000mg Take 1 [facility] 1,000 mg 7-01 tablet by ity of tablet 00:00: mouth [place] ([facility]) Medical times Branch daily with meals. metFORMIN 2019-0 Yes [id number] 1000mg Take 1 [facility] 1,000 mg 7-01 tablet by ity of tablet 00:00: mouth [place] ([facility]) Medical times Branch daily with meals. metFORMIN 2019-0 Yes [id number] 1000mg Take 1 [facility] 1,000 mg 7-01 tablet by ity of tablet 00:00: mouth [place] ([facility]) Medical times Branch daily with meals. glipiZIDE 5 2019-0 Yes [id number] 2 tabs TID Univers mg tablet 7- ity of 00:00: [place] 00 Medical Branch metFORMIN 2019-0 Yes [id number] 1000mg Take 1 [facility] 1,000 mg 7-01 tablet by ity of tablet 00:00: mouth (two) Medical times Branch daily with meals. citalopram 2019- Yes [id number] 40mg Take 1 [facility] 40 mg 7-01 tablet by ity of tablet 00:00: mouth 00 daily. Medical Branch glipiZIDE 5 Yes [id number] 2 tabs TID Univers mg tablet 7- ity of 00:00: [place] 00 Medical Branch metFORMIN 2018- Yes [id number] 1000mg Take 1 [facility] 1,000 mg 7-01 tablet by ity of tablet 00:00: mouth (two) Medical times Branch daily with meals. citalopram 2018- Yes [id number] 40mg Take 1 [facility] 40 mg 7-01 tablet by ity of tablet 00:00: mouth 00 daily. Medical Branch glipiZIDE 5 Yes [id number] 2 tabs TID [facility] mg tablet 7- ity of 00:00: 00 Medical Branch metFORMIN 2018-0 Yes [id number] 1000mg Take 1 [facility] 1,000 mg 7-01 tablet by ity of tablet 00:00: mouth (two) Medical times Branch daily with meals. citalopram Yes [id number] 40mg Take 1 [facility] 40 mg 7-01 tablet by ity of tablet 00:00: mouth 00 daily. Medical Branch metFORMIN 2018- Yes [id number] 1000mg Take 1 [facility] 1,000 mg 7-01 tablet by ity of tablet 00:00: mouth (two) Medical times Branch daily with meals. metFORMIN 2018- Yes [id number] 1000mg Take 1 [facility] 1,000 mg 7-01 tablet by ity of tablet 00:00: mouth (two) Medical times Branch daily with meals. metFORMIN 2018- Yes [id number] 1000mg Take 1 [facility] 1,000 mg 7-01 tablet by ity of tablet 00:00: mouth 2 (two) Medical times Branch daily with meals. metFORMIN 2018- Yes [id number] 1000mg Take 1 [facility] 1,000 mg 7-01 tablet by ity of tablet 00:00: mouth (two) Medical times Branch daily with meals. metFORMIN 2019-0 Yes [id number] 1000mg Take 1 [facility] 1,000 mg 7-01 tablet by ity of tablet 00:00: mouth (two) Medical times Branch daily with meals. metFORMIN 2019-0 Yes [id number] 1000mg Take 1 [facility] 1,000 mg 7-01 tablet by ity of tablet 00:00: mouth (two) Medical times Branch daily with meals. metFORMIN 2019-0 Yes [id number] 1000mg Take 1 [facility] 1,000 mg 7-01 tablet by ity of tablet 00:00: mouth (two) Medical times Branch daily with meals. metFORMIN 2019-0 Yes [id number] 1000mg Take 1 [facility] 1,000 mg 7-01 tablet by ity of tablet 00:00: mouth (two) Medical times Branch daily with meals. metFORMIN 2019-0 Yes [id number] 1000mg Take 1 [facility] 1,000 mg 7-01 tablet by ity of tablet 00:00: mouth (two) Medical times Branch daily with meals. metFORMIN 2019-0 Yes [id number] 1000mg Take 1 [facility] 1,000 mg 7-01 tablet by ity of tablet 00:00: mouth (two) Medical times Branch daily with meals. metFORMIN 2019-0 Yes [id number] 1000mg Take 1 [facility] 1,000 mg 7-01 tablet by ity of tablet 00:00: mouth (two) Medical times Branch daily with meals. metFORMIN 2019-0 Yes [id number] 1000mg Take 1 [facility] 1,000 mg 7-01 tablet by ity of tablet 00:00: mouth (two) Medical times Branch daily with meals. metFORMIN 2019-0 Yes [id number] 1000mg Take 1 [facility] 1,000 mg 7-01 tablet by ity of tablet 00:00: mouth (two) Medical times Branch daily with meals. metFORMIN 2019-0 Yes [id number] 1000mg Take 1 [facility] 1,000 mg 7-01 tablet by ity of tablet 00:00: mouth (two) Medical times Branch daily with meals. metFORMIN 2019-0 Yes [id number] 1000mg Take 1 [facility] 1,000 mg 7-01 tablet by ity of tablet 00:00: mouth (two) Medical times Branch daily with meals. metFORMIN 2019- Yes [id number] 1000mg Take 1 [facility] 1,000 mg 7-01 tablet by ity of tablet 00:00: mouth (two) Medical times Branch daily with meals. metFORMIN 2019-0 Yes [id number] 1000mg Take 1 [facility] 1,000 mg 7-01 tablet by ity of tablet 00:00: mouth (two) Medical times Branch daily with meals. metFORMIN 2019-0 Yes [id number] 1000mg Take 1 [facility] 1,000 mg 7-01 tablet by ity of tablet 00:00: mouth (two) Medical times Branch daily with meals. metFORMIN 2019-0 Yes [id number] 1000mg Take 1 [facility] 1,000 mg 7-01 tablet by ity of tablet 00:00: mouth (two) Medical times Branch daily with meals. metFORMIN 2018- Yes [id number] 1000mg Take 1 [facility] 1,000 mg 7-01 tablet by ity of tablet 00:00: mouth (two) Medical times Branch daily with meals. metFORMIN 2018- Yes [id number] 1000mg Take 1 [facility] 1,000 mg 7-01 tablet by ity of tablet 00:00: mouth [place] (two) Medical times Branch daily with meals. metFORMIN 2018-0 Yes [id number] 1000mg Take 1 [facility] 1,000 mg 7-01 tablet by ity of tablet 00:00: mouth (two) Medical times Branch daily with meals. glipiZIDE 5 2019- No [id number] 2 tabs TID [facility] mg tablet 12-01 ity of 00:00: 00:00 [place] 00 :00 Medical Branch citalopram 2019- No [id number] 40mg Take 1 [facility] 40 mg 12-01 tablet by ity of tablet 00:00: 00:00 mouth [place] 00 :00 daily. Medical Branch sitagliptan 2019-0 Yes 1{tbl} Take 1 Un meri -metformin 6-24 tablet by ity of (JANUMET) 20:32: mouth 2 [place] 50-500 mg 48 (two) Medical per tablet times Branch daily with meals. sitagliptan 2019- Yes 1{tbl} Take 1 Un mer[facility] -metformin 6-24 tablet by ity of (JUNUMET) 20:32: mouth 2 [place] 50-500 mg 48 (two) Medical per tablet times Branch daily with meals. sitagliptan 2019- Yes 1{tbl} Take 1 Un [facility] -metformin 6-24 tablet by ity of (JUNUMET) 20:32: mouth 2 [place] 50-500 mg 48 (two) Medical per tablet times Branch daily with meals. apixaban 5 2018-0 Yes [id number] 10 mg BID [facility] mg tablet 6-24 for 7 ity of 00:00: days. Followed Medical by 5 mg Branch BID apixaban 5 2019-0 Yes [id number] 10 mg BID [facility] mg tablet 6-24 for 7 ity of 00:00: days. Followed Medical by 5 mg Branch BID apixaban 5 2018-0 Yes [id number] 10 mg BID [facility] mg tablet 6-24 for 7 ity of 00:00: days. [place] Followed Medical by 5 mg Branch BID apixaban 5 2018-0 Yes [id number] 10 mg BID [facility] mg tablet 6-24 for 7 ity of 00:00: days. Followed Medical by 5 mg Branch BID apixaban 5 2018-0 Yes [id number] 10 mg BID [facility] mg tablet 6-24 for 7 ity of 00:00: days. [place] 00 Followed Medical by 5 mg Branch BID gabapentin 2018-0 No = 2 cap, Mem oria 300 MG Oral 6-04 PO, TID, # l Capsule 20:55: 540 [address] 46 unknown unit, Pharmacy: [id number] gabapentin 2018- No = 2 cap, Mem oria 300 MG Oral 6-04 PO, TID, # l Capsule 20:55: 540 [address] 46 unknown unit, Pharmacy: [email or web address] #[id number] gabapentin 2018-0 No = 2 cap, Mem oria 300 MG Oral 6-04 PO, TID, # l Capsule 20:55: 540 [address] 46 unknown unit, Pharmacy: [email or web address] #[id number] gabapentin 2018- No = 2 cap, Mem oria 300 MG Oral 6-04 PO, TID, # l Capsule 20:55: 540 [address] 46 unknown unit, Pharmacy: [email or web address] #[id number] gabapentin 2018-0 No = 2 cap, Mem oria 300 MG Oral 6-04 PO, TID, # l Capsule 20:55: 540 [address] 46 unknown unit, Pharmacy: [place] [id number] gabapentin 2019-0 No = 2 cap, Mem oria 300 MG Oral 6-04 PO, TID, # l Capsule 20:55: [address] 46 unknown unit, Pharmacy: [place] [id number] gabapentin 2019-0 No = 2 cap, Mem oria 300 MG Oral 6-04 PO, TID, # l Capsule 20:55: [address] 46 unknown unit, Pharmacy: [place] [id number] gabapentin 2019-0 No = 2 cap, Mem oria 300 MG Oral 6-04 PO, TID, # l Capsule 20:55: [address] 46 unknown unit, Pharmacy: [place] [id number] gabapentin 2019-0 No = 2 cap, Mem oria 300 MG Oral 6-04 PO, TID, # l Capsule 20:55: [address] 46 unknown unit, Pharmacy: [place] [id number] lamotrigine 2019-0 Yes = 1 tab, Me moria 200 MG Oral 5-28 PO, BID, # l Tablet 14:34: 60 tab, [place] 36 Refill(s) 5, Pharmacy: [place] [id number] lamotrigine 2019-0 Yes = 1 tab, Me moria 200 MG Oral 5-28 PO, BID, # l Tablet 14:34: 60 tab, Yong 36 Refill(s) 5, Pharmacy: [place] [id number] lamotrigine 2019-0 Yes = 1 tab, Me moria 200 MG Oral 5-28 PO, BID, # l Tablet 14:34: 60 tab, [place] 36 Refill(s) 5, Pharmacy: [place] [id number] lamotrigine 2019-0 Yes = 1 tab, Me moria 200 MG Oral 5-28 PO, BID, # l Tablet 14:34: 60 tab, Yong 36 Refill(s) 5, Pharmacy: [place] [id number] lamotrigine 2019-0 Yes = 1 tab, Me moria 200 MG Oral 5-28 PO, BID, # l Tablet 14:34: 60 tab, [place] 36 Refill(s) 5, Pharmacy: [place] [id number] lamotrigine 2019-0 Yes = 1 tab, Me moria 200 MG Oral 5-28 PO, BID, # l Tablet 14:34: 60 tab, [place] 36 Refill(s) 5, [id number] lamotrigine 2019-0 Yes = 1 tab, Me moria 200 MG Oral 5-28 PO, BID, # l Tablet 14:34: 60 tab, [place] 36 Refill(s) 5, [id number] lamotrigine 2019-0 Yes = 1 tab, Me moria 200 MG Oral 5-28 PO, BID, # l Tablet 14:34: 60 tab, Yong 36 Refill(s) 5, [id number] lamotrigine 2019-0 Yes = 1 tab, Me moria 200 MG Oral 5-28 PO, BID, # l Tablet 14:34: 60 tab, Yong 36 Refill(s) 5, [id number] rOPINIRole Yes See Memoria 2 mg oral 1-31 Instructio l tablet 16:20: ns, TAKE 1 Dianne nn 04 TABLET BY MOUTH 3 TIMES A DAY, # 270 tab, 3 Refill(s), Pharmacy: [facility] rOPINIRole Yes See Memoria 2 mg oral 1-31 Instructio l tablet 16:20: ns, TAKE 1 Dianne nn 04 TABLET BY MOUTH 3 TIMES A DAY, # 270 tab, 3 Refill(s), Pharmacy: [facility] rOPINIRole Yes See Memoria 2 mg oral 1-31 Instructio l tablet 16:20: ns, TAKE 1 Dianne nn 04 TABLET BY MOUTH 3 TIMES A DAY, # 270 tab, 3 Refill(s), Pharmacy: [facility] rOPINIRole Yes See Memoria 2 mg oral 1-31 Instructio l tablet 16:20: ns, TAKE 1 Dianne nn 04 TABLET BY MOUTH 3 TIMES A DAY, # 270 tab, 3 Refill(s), Pharmacy: [facility] rOPINIRole Yes See Memoria 2 mg oral 1-31 Instructio l tablet 16:20: ns, TAKE 1 Dianne nn 04 TABLET BY MOUTH 3 TIMES A DAY, # 270 tab, 3 Refill(s), Pharmacy: [facility] rOPINIRole Yes See Memoria 2 mg oral 1-31 Instructio l tablet 16:20: ns, TAKE 1 Dianne nn 04 TABLET BY MOUTH 3 TIMES A DAY, # 270 tab, 3 Refill(s), Pharmacy: [facility] rOPINIRole Yes See Memoria 2 mg oral 1-31 Instructio l tablet 16:20: ns, TAKE 1 Dianne nn 04 TABLET BY MOUTH 3 TIMES A DAY, # 270 tab, 3 Refill(s), Pharmacy: [facility] rOPINIRole Yes See Memoria 2 mg oral 1-31 Instructio l tablet 16:20: ns, TAKE 1 Dianne nn 04 TABLET BY MOUTH 3 TIMES A DAY, # 270 tab, 3 Refill(s), Pharmacy: [facility] rOPINIRole Yes See Memoria 2 mg oral 1-31 Instructio l tablet 16:20: ns, TAKE 1 Dianne nn 04 TABLET BY MOUTH 3 TIMES A DAY, # 270 tab, 3 Refill(s), Pharmacy: [facility] acetaminoph Yes [id number] 06/04 [facility] en-codeine 1-25 tab Every ity of 300-30 mg 00:00: 4hrs as [place] tablet 00 needed for Medical pain or Branch cough requiring narcotic acetaminoph Yes [id number] 06/04 [facility] en-codeine 1-25 tab Every ity of 300-30 mg 00:00: 4hrs as [place] tablet 00 needed for Medical pain or Branch cough requiring narcotic acetaminoph Yes [id number] 06/04 [facility] en-codeine 1-25 tab Every ity of 300-30 mg 00:00: 4hrs as [place] tablet 00 needed for Medical pain or Branch cough requiring narcotic acetaminoph Yes [id number] 06/04 [facility] en-codeine 1-25 tab Every ity of 300-30 mg 00:00: 4hrs as [place] tablet 00 needed for Medical pain or Branch cough requiring narcotic acetaminoph Yes [id number] 06/04 [facility] en-codeine 1-25 tab Every ity [...] BID, # l Tablet 21:51: 60 tab, [place] 03 Refill(s) 1, 06/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, [id number] lamotrigine 2019-0 No = 1 tab, Me moria 200 MG Oral 1-14 PO, BID, # l Tablet 21:51: 60 tab, Edison 03 Refill(s) 1, 06/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, [id number] lamotrigine 2019-0 No = 1 tab, Me moria 200 MG Oral 1-14 PO, BID, # l Tablet 21:51: 60 tab, Yong 03 Refill(s) , 06/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, [facility] lamotrigine 2019-0 No = 1 tab, Me moria 200 MG Oral 1-14 PO, BID, # l Tablet 21:51: 60 tab, [place] 03 Refill(s) , 06/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, [id number] lamotrigine 2019-0 No = 1 tab, Me moria 200 MG Oral 1-14 PO, BID, # l Tablet 21:51: 60 tab, Yong 03 Refill(s) , 06/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, [id number] lamotrigine 2019-0 No = 1 tab, Me moria 200 MG Oral 1-14 PO, BID, # l Tablet 21:51: 60 tab, [place] 03 Refill(s) , 06/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, [id number] lamotrigine 2019-0 No = 1 tab, Me moria 200 MG Oral 1-14 PO, BID, # l Tablet 21:51: 60 tab, [place] 03 Refill(s) , 06/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, [id number] lamotrigine 2019-0 No = 1 tab, Me moria 200 MG Oral 1-14 PO, BID, # l Tablet 21:51: 60 tab, Yong 03 Refill(s) , 06/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, [facility] lamotrigine 2019-0 No = 1 tab, Me moria 200 MG Oral 1-14 PO, BID, # l Tablet 21:51: 60 tab, [place] 03 Refill(s) 1, 06/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, [id number] gabapentin 2017-06 No 600 mg = 2 M emoria 300 MG Oral 2-14 cap, PO, l Capsule 23:32: TID, X 90 Dianne nn 12 day, # 540 cap, 3 Refill(s), [id number] gabapentin 2017-06 No 600 mg = 2 M emoria 300 MG Oral 2-14 cap, PO, l Capsule 23:32: TID, X 90 Dianne nn 12 day, # 540 cap, 3 Refill(s), Pharmacy: [facility] #[id number] gabapentin 2017-06 No 600 mg = 2 M emoria 300 MG Oral 2-14 cap, PO, l Capsule 23:32: TID, X 90 Dianne nn 12 day, # 540 cap, 3 Refill(s), [id number] gabapentin 2017-06 No 600 mg = 2 M emoria 300 MG Oral 2-14 cap, PO, l Capsule 23:32: TID, X 90 Dianne nn 12 day, # 540 cap, 3 Refill(s), Pharmacy: [facility] #[id number] gabapentin 2017-06 No 600 mg = 2 M emoria 300 MG Oral 2-14 cap, PO, l Capsule 23:32: TID, X 90 Dianne nn 12 day, # 540 cap, 3 Refill(s), [id number] gabapentin 2017-06 No 600 mg = 2 M emoria 300 MG Oral 2-14 cap, PO, l Capsule 23:32: TID, X 90 Dinane nn 12 day, # 540 cap, 3 Refill(s), Pharmacy: [facility] #[id number] gabapentin 2017-06 No 600 mg = 2 M emoria 300 MG Oral 2-14 cap, PO, l Capsule 23:32: TID, X 90 Dianne nn 12 day, # 540 cap, 3 Refill(s), Pharmacy: [facility] #[id number] gabapentin 2017- No 600 mg = 2 M emoria 300 MG Oral 2-14 cap, PO, l Capsule 23:32: TID, X 90 Dianne nn 12 day, # 540 cap, 3 Refill(s), [facility]: [facility] #[id number] gabapentin 2018- No 600 mg = 2 M emoria 300 MG Oral 2-14 cap, PO, l Capsule 23:32: TID, X 90 Dianne nn 12 day, # 540 cap, 3 Refill(s), Pharmacy: [facility] #[id number] lamotrigine 2018- No = 1 tab, Me moria 200 MG Oral 2-12 PO, BID, # l Tablet 14:58: 60 tab, Edison 59 Pharmacy: [facility] #[id number] lamotrigine 2018- No = 1 tab, Me moria 200 MG Oral 2-12 PO, BID, # l Tablet 14:58: 60 tab, Edison 59 Pharmacy: [facility] #[id number] lamotrigine 2017- No = 1 tab, Me moria 200 MG Oral 2-12 PO, BID, # l Tablet 14:58: 60 tab, Edison 59 Pharmacy: [facility] #[id number] lamotrigine 2017-06 No = 1 tab, Me moria 200 MG Oral 2-12 PO, BID, # l Tablet 14:58: 60 tab, Yong 59 Pharmacy: [facility] #[id number] lamotrigine 2018- No = 1 tab, Me moria 200 MG Oral 2-12 PO, BID, # l Tablet 14:58: 60 tab, Edison 59 Pharmacy: [facility] #[id number] lamotrigine 2018- No = 1 tab, Me moria 200 MG Oral 2-12 PO, BID, # l Tablet 14:58: 60 tab, Yong 59 Pharmacy: [facility] #[id number] lamotrigine 2018- No = 1 tab, Me moria 200 MG Oral 2-12 PO, BID, # l Tablet 14:58: 60 tab, Edison 59 Pharmacy: [facility] #[id number] lamotrigine 2018- No = 1 tab, Me moria 200 MG Oral 2-12 PO, BID, # l Tablet 14:58: 60 tab, Yong 59 Pharmacy: [facility] #[id number] lamotrigine 2018- No = 1 tab, Me moria 200 MG Oral 2-12 PO, BID, # l Tablet 14:58: 60 tab, Yong 59 Pharmacy: [facility] #[id number] lamoTRIgine Yes TAKE 1 Univ ers 200 [...] MOUTH TWICE A Medical DAY Branch rOPINIRole 2017 Yes TAKE 1 Unive rs 2 mg tablet 3-25 TABLET BY ity of 00:00: MOUTH 3 TIMES A Medical DAY Branch rOPINIRole Yes TAKE [...] MOUTH TIMES A Medical DAY Branch lamoTRIgine 2016-0 [...] 3 TIMES A Medical DAY Branch lamoTRIgine 0 Yes TAKE 1 Univ ers 200 mg [...] TABLET BY ity of 00:00: MOUTH 3 [place] TIMES A Medical DAY Branch lamoTRIgine Yes TAKE 1 Univ ers 200 mg 3-25 TABLET BY ity of tablet 00:00: MOUTH TWICE A Medical DAY Branch rOPINIRole Yes TAKE 1 Unive rs 2 mg tablet 3-25 TABLET BY ity of 00:00: MOUTH 3 [place] TIMES A Medical DAY Branch lamoTRIgine 3- No TAKE 1 Uni vers 200 mg [...] BY ity of capsule 00:00: MOUTH 3 [place] TIMES A Medical DAY Branch gabapentin Yes TAKE TWO Uni vers 300 mg 2-13 CAPSULE BY ity of capsule 00:00: MOUTH 3 [place] TIMES A Medical DAY Branch gabapentin Yes TAKE TWO Uni vers 300 mg 2-13 CAPSULE BY ity of capsule 00:00: MOUTH 3 [place] TIMES A Medical DAY Branch gabapentin Yes TAKE TWO Uni vers 300 mg 2-13 CAPSULE BY ity of capsule 00:00: MOUTH 3 [place] TIMES A Medical DAY Branch lovastatin Yes 20mg Take 20 mg U nivers 20 mg 2-13 by mouth ity of tablet 00:00: every 00 morning. Medical Branch gabapentin Yes TAKE TWO Uni vers 300 mg 2-13 CAPSULE BY ity of capsule 00:00: MOUTH 3 TIMES A Medical DAY Branch lovastatin 2017-0 Yes 20mg Take 20 mg U nivers 20 mg 2-13 by mouth ity of tablet 00:00: every [place] 00 morning. Medical Branch gabapentin 2016-0 Yes TAKE TWO Uni vers 300 mg 2-13 CAPSULE BY ity of capsule 00:00: MOUTH 3 TIMES A Medical DAY Branch lovastatin 2017-0 Yes 20mg Take 20 mg U nivers 20 mg 2-13 by mouth ity of tablet 00:00: every [place] 00 morning. Medical Branch gabapentin 2016-0 Yes TAKE TWO Uni vers 300 mg 2-13 CAPSULE BY ity of capsule 00:00: MOUTH 3 [place] TIMES A Medical DAY Branch lovastatin 2017-0 Yes 20mg Take 20 mg U nivers 20 mg 2-13 by mouth ity of tablet 00:00: every [place] 00 morning. Medical Branch gabapentin 2016-0 Yes TAKE TWO Uni vers 300 mg 2-13 CAPSULE BY ity of capsule 00:00: MOUTH 3 [place] TIMES A Medical DAY Branch lovastatin 2017-0 Yes 20mg Take 20 mg U nivers 20 mg 2-13 by mouth ity of tablet 00:00: every [place] 00 morning. Medical Branch gabapentin 2016-0 Yes TAKE TWO Uni vers 300 mg 2-13 CAPSULE BY ity of capsule 00:00: MOUTH 3 [place] TIMES A Medical DAY Branch lovastatin 2017-0 Yes 20mg Take 20 mg U nivers 20 mg 2-13 by mouth ity of tablet 00:00: every [place] 00 morning. Medical Branch gabapentin 2017-0 Yes TAKE TWO Uni vers 300 mg 2-13 CAPSULE BY ity of capsule 00:00: MOUTH 3 [place] TIMES A Medical DAY Branch lovastatin 2017-0 Yes 20mg Take 20 mg U nivers 20 mg 2-13 by mouth ity of tablet 00:00: every [place] 00 morning. Medical Branch gabapentin 2017-0 Yes TAKE TWO Uni vers 300 mg 2-13 CAPSULE BY ity of capsule 00:00: MOUTH 3 [place] TIMES A Medical DAY Branch lovastatin 2017-0 Yes 20mg Take 20 mg U nivers 20 mg 2-13 by mouth ity of tablet 00:00: every [place] 00 morning. Medical Branch gabapentin 2016-0 Yes TAKE TWO Uni vers 300 mg 2-13 CAPSULE BY ity of capsule 00:00: MOUTH 3 00 TIMES A Medical DAY Branch lovastatin 2017-0 Yes 20mg Take 20 mg U nivers 20 mg 2-13 by mouth ity of tablet 00:00: every [place] 00 morning. Medical Branch gabapentin 2016-0 Yes TAKE TWO Uni vers 300 mg 2-13 CAPSULE BY ity of capsule 00:00: MOUTH 3 [place] TIMES A Medical DAY Branch lovastatin 2016-0 Yes 20mg Take 20 mg U nivers 20 mg 2-13 by mouth ity of tablet 00:00: every [place] 00 morning. Medical Branch gabapentin 2016-0 Yes TAKE TWO Uni vers 300 mg 2-13 CAPSULE BY ity of capsule 00:00: MOUTH 3 [place] TIMES A Medical DAY Branch lovastatin 0 Yes 20mg Take 20 mg U nivers 20 mg 2-13 by mouth ity of tablet 00:00: every [place] 00 morning. Medical Branch gabapentin 2016-0 Yes TAKE TWO Uni vers 300 mg 2-13 CAPSULE BY ity of capsule 00:00: MOUTH 3 [place] TIMES A Medical DAY Branch lovastatin 0 Yes 20mg Take 20 mg U nivers 20 mg 2-13 by mouth ity of tablet 00:00: every [place] 00 morning. Medical Branch gabapentin 2016-0 Yes TAKE TWO Uni vers 300 mg 2-13 CAPSULE BY ity of capsule 00:00: MOUTH 3 [place] TIMES A Medical DAY Branch lovastatin 2016-0 Yes 20mg Take 20 mg U nivers 20 mg 2-13 by mouth ity of tablet 00:00: every [place] 00 morning. Medical Branch gabapentin 2016-0 Yes TAKE TWO Uni vers 300 mg 2-13 CAPSULE BY ity of capsule 00:00: MOUTH 3 [place] TIMES A Medical DAY Branch lovastatin 2016-0 Yes 20mg Take 20 mg U nivers 20 mg 2-13 by mouth ity of tablet 00:00: every [place] 00 morning. Medical Branch gabapentin 2016-0 Yes TAKE TWO Uni vers 300 mg 2-13 CAPSULE BY ity of capsule 00:00: MOUTH 3 [place] TIMES A Medical DAY Branch lovastatin 2016-0 Yes 20mg Take 20 mg U nivers 20 mg 2-13 by mouth ity of tablet 00:00: every [place] 00 morning. Medical Branch gabapentin 2016-0 Yes TAKE TWO Uni vers 300 mg 2-13 CAPSULE BY ity of capsule 00:00: MOUTH 3 [place] TIMES A Medical DAY Branch lovastatin 2016-0 Yes 20mg Take 20 mg U nivers 20 mg 2-13 by mouth ity of tablet 00:00: every [place] 00 morning. Medical Branch gabapentin 2017-0 Yes TAKE TWO Uni vers 300 mg 2-13 CAPSULE BY ity of capsule 00:00: MOUTH 3 [place] 00 TIMES A Medical DAY Branch gabapentin 2017-0 Yes TAKE TWO Uni vers 300 mg 2-13 CAPSULE BY ity of capsule 00:00: MOUTH 3 [place] 00 TIMES A Medical DAY Branch lovastatin 2017-0 Yes 20mg Take 20 mg U nivers 20 mg 2-13 by mouth ity of tablet 00:00: every [place] 00 morning. Medical Branch lovastatin 2017-0 Yes 20mg Take 20 mg U nivers 20 mg 2-13 by mouth ity of tablet 00:00: every [place] 00 morning. Medical Branch gabapentin 2016- Yes TAKE TWO Uni vers 300 mg 2-13 CAPSULE BY ity of capsule 00:00: MOUTH 3 [place] TIMES A Medical DAY Branch lovastatin Yes 20mg Take 20 mg U nivers 20 mg 2-13 by mouth ity of tablet 00:00: every [place] morning. Medical Branch gabapentin 2017-0 Yes TAKE TWO Uni vers 300 mg 2-13 CAPSULE BY ity of capsule 00:00: MOUTH 3 [place] TIMES A Medical DAY Branch gabapentin 2017-0 Yes TAKE TWO Uni vers 300 mg 2-13 CAPSULE BY ity of capsule 00:00: MOUTH 3 [place] TIMES A Medical DAY Branch gabapentin 2017-0 Yes TAKE TWO Uni vers 300 mg 2-13 CAPSULE BY ity of capsule 00:00: MOUTH 3 [place] TIMES A Medical DAY Branch gabapentin 2017-0 Yes TAKE TWO Uni vers 300 mg 2-13 CAPSULE BY ity of capsule 00:00: MOUTH 3 [place] TIMES A Medical DAY Branch gabapentin 2017-0 Yes TAKE TWO Uni vers 300 mg 2-13 CAPSULE BY ity of capsule 00:00: MOUTH 3 [place] TIMES A Medical DAY Branch gabapentin 2017-0 Yes TAKE TWO Uni vers 300 mg 2-13 CAPSULE BY ity of capsule 00:00: MOUTH 3 [place] TIMES A Medical DAY Branch gabapentin 2017-0 Yes TAKE TWO Uni vers 300 mg 2-13 CAPSULE BY ity of capsule 00:00: MOUTH 3 [place] TIMES A Medical DAY Branch gabapentin 2017-0 Yes TAKE TWO Uni vers 300 mg 2-13 CAPSULE BY ity of capsule 00:00: MOUTH 3 [place] TIMES A Medical DAY Branch gabapentin 2017-0 2022- No TAKE TWO Un meri 300 mg 07-16 CAPSULE BY ity of capsule 00:00: 00:00 MOUTH 3 [place] 00 :00 TIMES A Medical DAY Branch lovastatin 2021- No 20mg Take 20 mg Univers 20 mg 07-16 by mouth ity of tablet 00:00: 00:00 [...] Immunizations Ordered Filled Immunization Date Status Comments [facility] e Immunization Name Name SARS-COV-2 COVID-19 2021-09-23 Completed Unive rsity of MODERNA VACCINE 00:00:00 [facility] SARS-COV-2 COVID-19 2021-09-23 Completed Unive rsity of MODERNA VACCINE 00:00:00 [facility] SARS-COV-2 COVID-19 2021-09-23 Completed Unive rsity of MODERNA VACCINE 00:00:00 [facility] SARS-COV-2 COVID-19 2021-09-23 Completed Unive rsity of MODERNA 12+ YRS 00:00:00 [facility] VACCINE [place] SARS-COV-2 COVID-19 2021-09-23 Completed Unive rsity of MODERNA 12+ YRS 00:00:00 [facility] SARS-COV-2 COVID-19 2021-09-23 Completed Unive rsity of [...] 00:00:00 [place] [facility] SARS-COV-2 COVID-19 2021-04-03 Completed [...] 2021-04-03 Completed [facility]ACC[facility]ATION [facility]:00 [facility] MODERNA COVID-19 2021-04-03 Completed [facility] VACCINATION 00:00:00 [facility] MODERNA COVID-19 2021-04-03 Completed [facility] M[facility] VACCINATION 00:00:00 [facility] MODERNA COVID-19 2021-04-03 Completed [facility] MRNA VACCINATION 00:00:00 [facility] SARS-COV-2 COVID-19 2020-09-04 Completed Unive [...] Unive rsity of MODERNA VACCINE 00:00:00 [place] [facility] ical Branch SARS-COV-2 COVID-19 2020-09-04 Completed Unive rsity of MODERNA VACCINE 00:00:00 [place] [facility] ical Branch SARS-COV-2 COVID-19 2020-09-04 Completed Unive rsity of MODERNA VACCINE 00:00:00 [facility] ical Branch SARS-COV-2 COVID-19 2020-09-04 Completed Unive rsity of MODERNA VACCINE 00:00:00 [facility] ical Branch SARS-COV-2 COVID-19 2020-09-04 Completed Unive rsity of MODERNA VACCINE 00:00:00 [facility] ical Branch SARS-COV-2 COVID-19 2020-09-04 Completed Unive rsity of MODERNA VACCINE 00:00:00 [facility] ical Branch SARS-COV-2 COVID-19 2020-09-04 Completed Unive rsity of MODERNA VACCINE 00:00:00 [facility] ical Branch SARS-COV-2 COVID-19 2020-09-04 Completed Unive rsity of MODERNA VACCINE 00:00:00 [facility] ical Branch SARS-COV-2 COVID-19 2020-09-04 Completed Unive rsity of MODERNA VACCINE 00:00:00 [facility] ical Branch SARS-COV-2 COVID-19 2020-09-04 Completed Unive rsity of MODERNA VACCINE 00:00:00 [facility] ical Branch SARS-COV-2 COVID-19 2020-09-04 Completed Unive rsity of MODERNA VACCINE 00:00:00 [facility] ical Branch SARS-COV-2 COVID-19 2020-09-04 Completed Unive rsity of MODERNA VACCINE 00:00:00 [facility] ical Branch SARS-COV-2 COVID-19 2020-09-04 Completed Unive rsity of MODERNA VACCINE 00:00:00 [facility] ical Branch MODERNA COVID-19 2020-09-04 Completed Methodis t MRNA VACCINATION 00:00:00 [facility] MODERNA COVID-19 2020-09-04 Completed Methodis t MRNA VACCINATION 00:00:00 [facility] MODERNA COVID-19 2020-09-04 Completed Methodis t MRNA VACCINATION 00:00:00 [facility] MODERNA COVID-19 2020-09-04 Completed Methodis t MRNA VACCINATION 00:00:00 [facility] MODERNA COVID-19 2020-08-10 Completed Method[facility] t MRNA VACCINATION 00:00:00 [facility] MODERNA COVID-19 2020-08-10 Completed Method[facility] t MRNA VACCINATION 00:00:00 [facility] MODERNA COVID-19 2020-08-10 Completed Methodis t MRNA VACCINATION 00:00:00 [facility] MODERNA COVID-19 2020-08-10 Completed Methodis t MRNA VACCINATION 00:00:00 [facility] SARS-COV-2 COVID-19 2020-03-12 Completed Unive [...] Unive rsity of MODERNA VACCINE 00:00:00 [facility] ical Branch SARS-COV-2 COVID-19 2020-03-12 Completed Unive rsity of MODERNA VACCINE 00:00:00 [facility] ical Branch SARS-COV-2 COVID-19 2020-03-12 Completed Unive rsity of MODERNA VACCINE 00:00:00 [facility] ical Branch SARS-COV-2 COVID-19 2020-03-12 Completed Unive rsity of MODERNA VACCINE 00:00:00 [facility] ical Branch SARS-COV-2 COVID-19 2020-03-12 Completed Unive rsity of MODERNA VACCINE 00:00:00 [facility] ical Branch SARS-COV-2 COVID-19 2020-03-12 Completed Unive rsity of MODERNA VACCINE 00:00:00 [facility] ical Branch SARS-COV-2 COVID-19 2020-03-12 Completed Unive rsity of MODERNA VACCINE 00:00:00 [facility] ical Branch SARS-COV-2 COVID-19 2020-03-12 Completed Unive rsity of MODERNA VACCINE 00:00:00 [facility] ical Branch SARS-COV-2 COVID-19 2020-03-12 Completed Unive rsity of MODERNA VACCINE 00:00:00 [facility] ical Branch SARS-COV-2 COVID-19 2020-03-12 Completed Unive rsity of MODERNA VACCINE 00:00:00 [facility] ical Branch SARS-COV-2 COVID-19 2020-03-12 Completed Unive rsity of MODERNA VACCINE 00:00:00 [facility] ical Branch SARS-COV-2 COVID-19 2020-03-12 Completed Unive rsity of MODERNA VACCINE 00:00:00 [facility] ical Branch SARS-COV-2 COVID-19 2020-03-12 Completed Unive rsity of MODERNA VACCINE 00:00:00 [facility] ical Branch SARS-COV-2 COVID-19 2020-03-12 Completed Unive rsity of MODERNA VACCINE 00:00:00 [facility] SARS-COV-[facility] COVID-19 2020-03-12 Completed Unive rsity of MODERNA VACCINE 00:00:00 [facility] Influenza High Dose 2019-03-03 Completed Unive rsity of 00:00:00 [facility] Influenza High Dose 2019-03-03 Completed Unive rsity of 00:00:00 [facility] Influenza High Dose 2019-03-03 Completed Unive rsity of 00:00:00 [facility] Influenza High Dose 2019-03-03 Completed Unive rsity of 00:00:00 [facility] Influenza High Dose 2019-03-03 Completed Unive rsity of 00:00:00 [facility] Influenza High Dose 2019-03-03 Completed Unive rsity of 00:00:00 [facility] Influenza High Dose 2019-03-03 Completed Unive rsity of 00:00:00 [facility] Influenza High Dose 2019-03-03 Completed Unive rsity of 00:00:00 [facility] Influenza High Dose 2019-03-03 Completed Unive rsity of 00:00:00 [facility] Influenza High Dose 2019-03-03 Completed Unive rsity of 00:00:00 [facility] Influenza High Dose 2019-03-03 Completed Unive rsity of 00:00:00 [facility] Influenza High Dose 2019-03-03 Completed Unive rsity of 00:00:00 [facility] Influenza High Dose 2019-03-03 Completed Unive rsity of 00:00:00 [facility] Influenza High Dose 2019-03-03 Completed Unive rsity of 00:00:00 [facility] Influenza High Dose 2019-03-03 Completed Unive rsity of 00:00:00 [facility] Influenza High Dose 2019-03-03 Completed Unive rsity of 00:00:00 [facility] Influenza High Dose 2019-03-03 Completed Unive rsity of 00:00:00 [facility] Influenza High Dose 2019-03-03 Completed Unive rsity of 00:00:00 [facility] Influenza High Dose 2019-03-03 Completed Unive rsity of 00:00:00 [facility] Influenza High Dose 2019-03-03 Completed Unive rsity of 00:00:00 [facility] Influenza High Dose 2019-03-03 Completed Unive rsity of 00:00:00 [facility] Influenza High Dose 2019-03-03 Completed Unive rsity of 00:00:00 [facility] Influenza High Dose 2019-03-03 Completed Unive rsity of 00:00:00 [facility] Influenza High Dose 2019-03-03 Completed Unive rsity of 00:00:00 [facility] Influenza High Dose 2019-03-03 Completed Unive rsity of 00:00:00 [facility] Influenza High Dose 2019-03-03 Completed Unive rsity of 00:00:00 [facility] Influenza High Dose 2019-03-03 Completed Unive rsity of 00:00:00 [facility] Influenza High Dose 2019-03-03 Completed Unive rsity of 00:00:00 [facility] Influenza High Dose 2019-03-03 Completed Unive rsity of 00:00:00 [facility] Influenza High Dose 2018-07-17 Completed Unive rsity of 00:00:00 [facility] Pneumococcal 13 2018-07-17 Completed Universit y of Conjugate, PCV13 00:00:00 [place] Me [facility] (Prevnar 13) Branch Influenza High Dose 2018-07-17 Completed Unive rsity of 00:00:00 [facility] Pneumococcal 13 2018-07-17 Completed Universit y of Conjugate, PCV13 00:00:00 [place] Me [facility] (Prevnar 13) Branch Influenza High Dose 2018-07-17 Completed Unive rsity of 00:00:00 [facility] Pneumococcal 13 2018-07-17 Completed Universit y of Conjugate, PCV13 00:00:00 [place] Me [facility] (Prevnar 13) Branch Influenza High Dose 2018-07-17 Completed Unive rsity of 00:00:00 [facility] Pneumococcal 13 2018-07-17 Completed Universit y of Conjugate, PCV13 00:00:00 [place] Me [facility] (Prevnar 13) Branch Influenza High Dose 2018-07-17 Completed Unive rsity of 00:00:00 [facility] Pneumococcal 13 2018-07-17 Completed Universit y of Conjugate, PCV13 00:00:00 [place] [facility] (Prevnar 13) Branch Influenza High Dose 2018-07-17 Completed Unive rsity of 00:00:00 [facility] Pneumococcal 13 2018-07-17 Completed Universit y of Conjugate, PCV13 00:00:00 [place] Me [facility] (Prevnar 13) Branch Influenza High Dose 2018-07-17 Completed Unive rsity of 00:00:00 [facility] Pneumococcal 13 2018-07-17 Completed Universit y of Conjugate, PCV13 00:00:00 [place] [facility] (Prevnar 13) Branch Influenza High Dose 2018-07-17 Completed Unive rsity of 00:00:00 [facility] Pneumococcal 13 2018-07-17 Completed Universit y of Conjugate, PCV13 00:00:00 [place] Me [facility] (Prevnar 13) Branch Influenza High Dose 2018-07-17 Completed Unive rsity of 00:00:00 [facility] Pneumococcal 13 2018-07-17 Completed Universit y of Conjugate, PCV13 00:00:00 [place] [facility] (Prevnar 13) Branch Influenza High Dose 2018-07-17 Completed Unive rsity of 00:00:00 [facility] Pneumococcal 13 2018-07-17 Completed Universit y of Conjugate, PCV13 00:00:00 [place] [facility] (Prevnar 13) Branch Influenza High Dose 2018-07-17 Completed Unive rsity of 00:00:00 [facility] Pneumococcal 13 2018-07-17 Completed Universit y of Conjugate, PCV13 00:00:00 [place] [facility] (Prevnar 13) Branch Influenza High Dose 2018-07-17 Completed Unive rsity of 00:00:00 [facility] Pneumococcal 13 2018-07-17 Completed Universit y of Conjugate, PCV13 00:00:00 [place] [facility] (Prevnar 13) Branch Influenza High Dose 2018-07-17 Completed Unive rsity of 00:00:00 [facility] Pneumococcal 13 2018-07-17 Completed Universit y of Conjugate, PCV13 00:00:00 [place] Me [facility] (Prevnar 13) Branch Influenza High Dose 2018-07-17 Completed Unive rsity of 00:00:00 [facility] Pneumococcal 13 2018-07-17 Completed Universit y of Conjugate, PCV13 00:00:00 [place] [facility] (Prevnar 13) Branch Influenza High Dose 2018-07-17 Completed Unive rsity of 00:00:00 [facility] Pneumococcal 13 2018-07-17 Completed Universit y of Conjugate, PCV13 00:00:00 [place] [facility] (Prevnar 13) Branch Influenza High Dose 2018-07-17 Completed Unive rsity of 00:00:00 [facility] Pneumococcal 13 2018-07-17 Completed Universit y of Conjugate, PCV13 00:00:00 [place] [facility] (Prevnar 13) Branch Influenza High Dose 2018-07-17 Completed Unive rsity of 00:00:00 [facility] Pneumococcal 13 2018-07-17 Completed Universit y of Conjugate, PCV13 00:00:00 [place] [facility] (Prevnar 13) Branch Influenza High Dose 2018-07-17 Completed Unive rsity of 00:00:00 [facility] Pneumococcal 13 2018-07-17 Completed Universit y of Conjugate, PCV13 00:00:00 [place] [facility] (Prevnar 13) Branch Influenza High Dose 2018-07-17 Completed [facility]ive rsity of 00:00:00 [facility] Pneumococcal 13 2018-07-17 Completed Universit y of Conjugate, PCV13 00:00:00 [place] [facility] (Prevnar 13) Branch Influenza High Dose 2018-07-17 Completed Unive rsity of 00:00:00 [facility] Pneumococcal 13 2018-07-17 Completed Universit y of Conjugate, PCV13 00:00:00 [place] [facility] (Prevnar 13) Branch Influenza High Dose 2018-07-17 Completed [facility]ive rsity of 00:00:00 [facility] Pneumococcal 13 2018-07-17 Completed Universit y of Conjugate, PCV13 00:00:00 [place] [facility] (Prevnar 13) Branch Influenza High Dose 2018-07-17 Completed [facility]ive rsity of 00:00:00 [facility] Pneumococcal 13 2018-07-17 Completed Universit y of Conjugate, PCV13 00:00:00 [place] [facility] (Prevnar 13) Branch Influenza High Dose 2018-07-17 Completed Unive rsity of 00:00:00 [facility] Pneumococcal 13 2018-07-17 Completed Universit y of Conjugate, PCV13 00:00:00 [place] [facility] (Prevnar 13) Branch Influenza High Dose 2018-07-17 Completed [facility]ive rsity of 00:00:00 [facility] Pneumococcal 13 2018-07-17 Completed Universit y of Conjugate, PCV13 00:00:00 [place] [facility] (Prevnar 13) [place] Vital Signs Vital Name Observation Time Observation Value Comments Source Height/Length 2021-06-20 167 cm Measured 09:47:40 Weight Dosing 2021-06-20 83.95 kg 09:47:40 Height/Length 2021-06-20 167 cm Measured 09:26:45 Weight Dosing 2021-06-20 83.95 kg 09:26:45 Height/Length 2021-06-20 167 cm Measured 09:26:32 Weight Dosing 2021-06-20 83.95 kg 09:26:32 Systolic blood 2022-12-03 112 mm[Hg] University of pressure 20:00:00 [facility] Diastolic blood 2022-12-03 63 mm[Hg] University o f pressure 20:00:00 [facility] Heart rate 2022-12-03 61 /min University of 20:00:00 [facility] Body temperature 2022-12-03 36.72 Erica University of 20:00:00 [facility] Respiratory rate 2022-12-03 12 /min University of 20:00:00 [facility] Oxygen saturation 2022-12-03 97 /min University of in Arterial blood 20:00:00 [place] [facility]by by Pulse oximetry Branch Body height 2022-12-03 167.6 cm University of 02:12:00 [facility] Body weight 2022-12-03 78.971 kg University of 02:12:00 [facility] BMI 2022-12-03 28.10 kg/m2 University of 02:12:00 [facility] Systolic blood 2022-11-05 121 mm[Hg] University of pressure 16:00:00 [facility] Diastolic blood 2022-11-05 66 mm[Hg] University o f pressure 16:00:00 [facility] Heart rate 2022-11-05 72 /min University of 16:00:00 [facility] Body temperature 2022-11-05 36.72 Erica University of 16:00:00 [facility] Respiratory rate 2022-11-05 17 /min University of 16:00:00 [facility] Oxygen saturation 2022-11-05 94 /min University of in Arterial blood 16:00:00 [facility] by Pulse oximetry Branch Body height 2022-11-01 167.6 cm estimated by [place] of 19:22:00 [facility] Body weight 2022-11-01 81.647 kg estimated by [place] of 19:22:00 [facility] BMI 2022-11-01 29.05 kg/m2 University of 19:22:00 [facility] Systolic blood 2022-09-08 157 mm[Hg] University of pressure 08:00:00 [facility] Diastolic blood 2022-09-08 76 mm[Hg] University o f pressure 08:00:00 [facility] Heart rate 2022-09-08 83 /min University of 08:00:00 [facility] Respiratory rate 2022-09-08 17 /min University of 08:00:00 [facility] Oxygen saturation 2022-09-08 96 /min University of in Arterial blood 08:00:00 [place] [facility] by Pulse oximetry Branch Body temperature 2022-09-08 36.78 Erica University of 05:39:00 [facility] Body height 2022-09-08 167.6 cm University of 05:39:00 [facility] Body weight 2022-09-08 80.74 kg University of 05:39:00 [facility] BMI 2022-09-08 28.73 kg/m2 University of 05:39:00 [facility] Systolic blood 2022-01-16 133 mm[Hg] University of pressure 18:30:00 [facility] Diastolic blood 2022-01-16 61 mm[Hg] University o f pressure 18:30:00 [facility] Heart rate 2022-01-16 57 /min University of 18:30:00 [facility] Oxygen saturation 2022-01-16 98 /min [place] of in Arterial blood 18:30:00 [facility] by Pulse oximetry Branch Body temperature 2022-01-16 36.22 Erica University of 16:53:00 [facility] Respiratory rate 2022-01-16 16 /min University of 16:53:00 [facility] Body height 2022-01-15 165.1 cm University of 19:56:00 [facility] Body weight 2022-01-15 75.3 kg University of 19:56:00 [facility] BMI 2022-01-15 27.62 kg/m2 University of 19:56:00 [facility] Systolic blood 2021-09-23 124 mm[Hg] University of pressure 16:15:00 [facility] Diastolic blood 2021-09-23 63 mm[Hg] University o f pressure 16:15:00 [facility] Heart rate 2021-09-23 62 /min University of 16:15:00 [facility] Body temperature 2021-09-23 36.78 Erica University of 16:15:00 [facility] Respiratory rate 2021-09-23 16 /min University of 16:15:00 [facility] Oxygen saturation 2021-09-23 96 /min University of in Arterial blood 16:15:00 [facility] by Pulse oximetry Branch Body height 2021-09-23 165.1 cm University of 15:51:00 [facility] Body weight 2021-09-23 75.297 kg University of 15:51:00 [facility] BMI 2021-09-23 27.62 kg/m2 University of 15:51:00 [facility] Systolic blood 2021-04-29 120 mm[Hg] University of pressure 15:30:00 [facility] Diastolic blood 2021-04-29 83 mm[Hg] University o f pressure 15:30:00 [facility] Heart rate 2021-04-29 84 /min University of 15:30:00 [facility] Body temperature 2021-04-29 36.5 Erica University of 15:30:00 [facility] Respiratory rate 2021-04-29 18 /min University of 15:30:00 [facility] Body height 2021-04-29 167.6 cm University of 15:30:00 [facility] Body weight 2021-04-29 79.379 kg University of 15:30:00 [facility] BMI 2021-04-29 28.25 kg/m2 University of 15:30:00 [facility] Oxygen saturation 2021-04-29 99 /min University of in Arterial blood 15:30:00 [facility] corby by Pulse oximetry Branch Systolic blood 2021-01-24 143 mm[Hg] University of pressure 12:34:00 [facility] Diastolic blood 2021-01-24 78 mm[Hg] University o f pressure 12:34:00 [facility] Heart rate 2021-01-24 67 /min University of 12:34:00 [facility] Body temperature 2021-01-24 37.06 Erica University of 12:34:00 [facility] Respiratory rate 2021-01-24 18 /min University of 12:34:00 [facility] Oxygen saturation 2021-01-24 97 /min University of in Arterial blood 12:34:00 [facility] corby by Pulse oximetry Branch Body height 2021-01-20 162.6 cm University of 21:51:00 [facility] Body weight 2021-01-20 82.555 kg University of 21:51:00 [facility] BMI 2021-01-20 31.24 kg/m2 University of 21:51:00 [facility] Systolic blood 2020-02-14 154 mm[Hg] University of pressure 19:25:00 [facility] Diastolic blood 2020-02-14 95 mm[Hg] University o f pressure 19:25:00 [facility] Heart rate 2020-02-14 82 /min University of 19:25:00 [facility] Body temperature 2020-02-14 36.72 Erica University of 19:25:00 [facility] Respiratory rate 2020-02-14 20 /min University of 19:25:00 [facility] Body weight 2020-02-14 84.823 kg University of 19:25:00 [facility] BMI 2020-02-14 30.18 kg/m2 University of 19:25:00 [facility] Oxygen saturation 2020-02-14 98 /min University of in Arterial blood 19:25:00 [facility] corby by Pulse oximetry Branch Systolic blood 2020-02-14 154 mm[Hg] University of pressure 19:25:00 [facility] Diastolic blood 2020-02-14 95 mm[Hg] University o f pressure 19:25:00 [facility] Heart rate 2020-02-14 82 /min University of 19:25:00 [facility] Body temperature 2020-02-14 36.72 Erica University of 19:25:00 [facility] Respiratory rate 2020-02-14 20 /min University of 19:25:00 [facility] Body weight 2020-02-14 84.823 kg University of 19:25:00 [facility] BMI 2020-02-14 30.18 kg/m2 University of 19:25:00 [facility] Oxygen saturation 2020-02-14 98 /min University of in Arterial blood 19:25:00 [facility] corby by Pulse oximetry Branch Systolic blood 2019-09-20 159 mm[Hg] University of pressure 21:15:00 [facility] Diastolic blood 2019-09-20 79 mm[Hg] University o f pressure 21:15:00 [facility] Heart rate 2019-09-20 71 /min University of 21:15:00 [facility] Oxygen saturation 2019-09-20 97 /min University of in Arterial blood 21:15:00 [facility] by Pulse oximetry Branch Respiratory rate 2019-09-20 16 /min University of 20:00:00 [facility] Body temperature 2019-09-20 37.61 Erica University of 17:50:00 [facility] Body weight 2019-09-20 86.183 kg University of 17:50:00 [facility] BMI 2019-09-20 30.67 kg/m2 University of 17:50:00 [facility] Systolic blood 2019-09-20 159 mm[Hg] University of pressure 21:15:00 [facility] Diastolic blood 2019-09-20 79 mm[Hg] University o f pressure 21:15:00 [facility] Heart rate 2019-09-20 71 /min University of 21:15:00 [facility] Oxygen saturation 2019-09-20 97 /min University of in Arterial blood 21:15:00 [facility] corby by Pulse oximetry Branch Respiratory rate 2019-09-20 16 /min University of 20:00:00 [facility] Body temperature 2019-09-20 37.61 Erica University of 17:50:00 [facility] Body weight 2019-09-20 86.183 kg University of 17:50:00 [facility] BMI 2019-09-20 30.67 kg/m2 University of 17:50:00 [facility] Height/Length 2019-08-07 Measured 14:27:17 Weight Dosing 2019-08-07 14:27:17 Heart rate 2019-02-15 81 /min University of 12:38:00 [facility] Respiratory rate 2019-02-15 20 /min University of 12:38:00 [facility] Oxygen saturation 2019-02-15 99 /min University of in Arterial blood 12:38:00 [facility] by Pulse oximetry Branch Systolic blood 2019-02-15 125 mm[Hg] University of pressure 12:32:00 [facility] Diastolic blood 2019-02-15 76 mm[Hg] University o f pressure 12:32:00 [facility] Body temperature 2019-02-15 36.94 Erica University of 12:32:00 [facility] Body weight 2019-02-15 83.915 kg University of 00:33:00 [facility] BMI 2019-02-15 29.86 kg/m2 University of 00:33:00 [facility] Heart rate 2019-02-15 81 /min University of 12:38:00 [facility] Respiratory rate 2019-02-15 20 /min University of 12:38:00 [facility] Oxygen saturation 2019-02-15 99 /min University of in Arterial blood 12:38:00 [facility] corby by Pulse oximetry Branch Systolic blood 2019-02-15 125 mm[Hg] University of pressure 12:32:00 [facility] Diastolic blood 2019-02-15 76 mm[Hg] University o f pressure 12:32:00 [facility] Body temperature 2019-02-15 36.94 Erica University of 12:32:00 [facility] Body weight 2019-02-15 83.915 kg University of 00:33:00 [facility] BMI 2019-02-15 29.86 kg/m2 University of 00:33:00 [facility] Systolic blood 2019-02-15 151 mm[Hg] University of pressure 00:40:00 [facility] Diastolic blood 2019-02-15 94 mm[Hg] University o f pressure 00:40:00 [facility] Heart rate 2019-02-15 96 /min University 00:40:00 [facility] Body temperature 2019-02-15 36.89 Erica University of 00:40:00 [facility] Respiratory rate 2019-02-15 18 /min University of 00:40:00 [facility] Body height 2019-02-15 167.6 cm University of 00:40:00 [facility] Body weight 2019-02-15 84.086 kg University of 00:40:00 [facility] BMI 2019-02-15 29.92 kg/m2 University of 00:40:00 [facility] Oxygen saturation 2019-02-15 96 /min University of in Arterial blood 00:40:00 [facility] corby by Pulse oximetry Branch Systolic blood 2019-02-15 151 mm[Hg] University of pressure 00:40:00 [facility] Diastolic blood 2019-02-15 94 mm[Hg] University o f pressure 00:40:00 [facility] Heart rate 2019-02-15 96 /min University of 00:40:00 [facility] Body temperature 2019-02-15 36.89 Erica University of 00:40:00 [facility] Respiratory rate 2019-02-15 18 /min University of 00:40:00 [facility] Body height 2019-02-15 167.6 cm University of 00:40:00 [facility] Body weight 2019-02-15 84.086 kg University of 00:40:00 [facility] BMI 2019-02-15 29.92 kg/m2 University of 00:40:00 [facility] Oxygen saturation 2019-02-15 96 /min University of in Arterial blood 00:40:00 [place] [facility] by Pulse oximetry Branch Systolic blood 2019-01-31 136 mm[Hg] University of pressure 16:33:00 [facility] Diastolic blood 2019-01-31 76 mm[Hg] University o f pressure 16:33:00 [facility] Heart rate 2019-01-31 84 /min University of 16:33:00 [facility] Body temperature 2019-01-31 36.17 Erica University of 16:33:00 [facility] Respiratory rate 2019-01-31 17 /min University of 16:33:00 [facility] Body height 2019-01-31 167.6 cm University of 16:33:00 [facility] Body weight 2019-01-31 85.276 kg University of 16:33:00 [facility] BMI 2019-01-31 30.34 kg/m2 University of 16:33:00 [facility] Oxygen saturation 2019-01-31 97 /min University of in Arterial blood 16:33:00 [facility] by Pulse oximetry Branch Systolic blood 2019-01-31 136 mm[Hg] University of pressure 16:33:00 [facility] Diastolic blood 2019-01-31 76 mm[Hg] University o f pressure 16:33:00 [facility] Heart rate 2019-01-31 84 /min University 16:33:00 [facility] Body temperature 2019-01-31 36.17 Erica [facility] 16:33:00 [facility] Respiratory rate 2019-01-31 17 /min University 16:33:00 [facility] Body height 2019-01-31 167.6 cm University 16:33:00 [facility] Body weight 2019-01-31 85.276 kg University of 16:33:00 [facility] BMI 2019-01-31 30.34 kg/m2 University 16:33:00 [facility] Oxygen saturation 2019-01-31 97 /min University of in Arterial blood 16:33:00 [facility] by Pulse oximetry Branch Systolic (mm Hg) 2022-03-13 [facility] 18:17:00 Diastolic (mm Hg) 2022-03-13 [facility] 18:17:00 Heart Rate 2022-03-13 [facility] 18:17:00 Height 2022-03-13 5 [ft_i] [facility] 18:17:00 Weight 2022-03-13 [facility] 18:17:00 BMI Calculated 2022-03-13 [facility] 18:17:00 Systolic (mm Hg) 2022-01-22 [facility] 18:11:00 Diastolic (mm Hg) 2022-01-22 [facility] 18:11:00 Heart Rate 2022-01-22 [facility] 18:11:00 Respitory Rate 2022-01-22 [facility] 18:11:00 Height 2022-01-22 165.1 cm [facility] 18:11:00 Weight 2022-01-22 [facility] 18:11:00 BMI Calculated 2022-01-22 [facility] 18:11:00 Systolic (mm Hg) 2021-06-07 [facility] 16:24:00 Diastolic (mm Hg) 2021-06-07 [facility] 16:24:00 Heart Rate 2021-06-07 [facility] [...] benedicto 14:35:00 Systolic (mm Hg) 2018-07-03 [facility] 15:46:00 Diastolic (mm Hg) 2018-07-03 [facility] 15:46:00 Heart Rate 2018-07-03 Danielle Josephan n 15:46:00 Height 2018-07-03 165.1 cm Danielle Josephan n 15:46:00 Weight 2018-07-03 Danielle Josephan n 15:46:00 BMI Calculated 2018-07-03 [facility] 15:46:00 Procedures Procedure Date / Time Performing Source Performed Clinician POCT GLUCOSE (AUTOMATED) 2022-12-03 Radha Palomares [facility] 16:32:00 [facility] POCT GLUCOSE (AUTOMATED) 2022-12-03 Radha Palomares [facility] 13:46:00 [facility] PHOSPHORUS 2022-12-03 [facility] 09:54:00 [facility] MAGNESIUM 2022-12-03 [facility] xa 09:54:00 [facility] HEPATIC FUNCTION PANEL 2022-12-03 [facility] ([id number]) (ALB,T.PRO,BILI 09:54:00 [facility] T,BU/BC,ALT,AST,ALK PHOS) BASIC METABOLIC PANEL (NA, K, 2022-12-03 [facility] CL, CO2, GLUCOSE, BUN, 09:54:00 [facility] ranch CREATININE, CA) CORTISOL PM SERUM 2022-12-03 Marielle [facility] 03:45:00 [facility] TROPONIN I 2022-12-03 [facility] xa 03:45:00 [facility] CBC WITH DIFF 2022-12-03 [facility] xas 03:45:00 [facility] VITAMIN D, 25-OH 2022-12-03 [facility] [place] 03:45:00 [facility] POCT GLUCOSE (AUTOMATED) 2022-12-03 Radha Palomares [facility] 01:20:00 [facility] LACTIC ACID WHOLE BLOOD 2022-12-02 [facility] 23:[facility] ANGIOGRAM HEAD 2022-12-02 Floyd[facility]ilo [facility] 21:19:[address] [facility] [address] ANGIOGRAM NECK 2022-12-02 [facility] 21:19:[address] HEAD WO CONTRAST 2022-12-02 Arleth Muñoz [facility] 21:06:00 [facility] URINALYSIS 2022-12-02 [facility] 19:33:00 [facility] LIPASE 2022-12-02 [facility] 19:25:00 [facility] FERRITIN SERUM 2022-12-02 [facility] xas 19:25:00 [facility] TROPONIN I 2022-12-[address] [facility] 19:25:00 [facility] FREE T4 2022-12-02 Radha Palomares [facility] xas 19:25:00 Medical [facility] THYROID STIMULATING HORMONE 2022-12-02 Radha Palomares [facility] 19:25:00 [facility] COMP. METABOLIC PANEL (63714) 2022-12-02 [facility] 19:25:00 [facility] IRON PANEL 2022-12-02 [facility] xas 19:25:00 [facility] CBC WITH DIFF 2022-12-[address] [facility] 19:25:00 Medical [facility] PROTHROMBIN TIME / INR 2022-12-02 Wanda [facility] 19:25:00 [facility] ACTIVATED PARTIAL THRMPLAS 2022-12-[address] [facility] [place] 19:25:00 [facility] N-TERMINAL PRO-BNP 2022-12-02 [facility]:25[facility] FREE T3 2022-12-02 Marielle [facility] [place] 19:25:00 [facility] HB ECG ROUTINE & RHYTHM STRIP 2022-12-02 Arleth Muñoz [facility] 19:21:59 Medical Branch POCT GLUCOSE (AUTOMATED) 2022-12-02 Wanda Arleth [facility] 18:59:00 [facility] POCT GLUCOSE (AUTOMATED) 2022-11-05 Grace, [facility] 16:07:00 [facility] POCT GLUCOSE (AUTOMATED) 2022-11-05 Grace, [facility] 12:43:00 [facility] POCT GLUCOSE (AUTOMATED) 2022-11-05 Grace, [facility] 00:53:00 [facility] POCT GLUCOSE (AUTOMATED) 2022-11-04 Grace, [facility] 22:35:00 [facility] POCT GLUCOSE (AUTOMATED) 2022-11-04 Grace, [facility] 16:57:00 Medical [facility] MR BRAIN W WO CONTRAST 2022-11-04 [facility] 15:59[facility]12 Shelia [facility] POCT GLUCOSE (AUTOMATED) 2022-11-04 Grace [facility] 12:49:00 Medical Branch AMMONIA, PLASMA 2022-11-04 [facility] [place] 10:38:00 [facility] POCT GLUCOSE (AUTOMATED) 2022-11-04 Grace [facility] 01:02:00 [facility] POCT GLUCOSE (AUTOMATED) 2022-11-03 Grace, [facility] 22:07:00 [facility] POCT GLUCOSE (AUTOMATED) 2022-11-03 Grace, [facility] 17:07:00 [facility] POCT GLUCOSE (AUTOMATED) 2022-11-03 Grace, [facility] 13:18:00 [facility] POCT GLUCOSE (AUTOMATED) 2022-11-03 Grace, [facility] 02:34:00 [facility] POCT GLUCOSE (AUTOMATED) 2022-11-02 [facility] 23:02:00 [facility] POCT GLUCOSE (AUTOMATED) 2022-11-02 Vahid [facility] 17:18:00 [facility] POCT GLUCOSE (AUTOMATED) 2022-11-02 Grace [facility] 15:10:00 [facility] URINE CULTURE 2022-11-02 [facility] [place] [facility] 11:21:00 [facility] ELECTROENCEPHALOGRAM 2022-11-02 Shannan [facility] 00:00:00 [facility] URINE DRUG (IMMUNOASSAY) - 2022-11-01 Misael Cheema [facility] COMPREHENSIVE DRUG SCREEN 20:21:00 [facility] URINALYSIS 2022-11-01 Misael Cheema [facility] 20:21:[address] [facility] [address] ANGIOGRAM HEAD 2022-11-01 Misael Cheema [facility] 20:00:[address] [facility] [address] ANGIOGRAM NECK 2022-11-01 Misael Cheema [facility] 20:00:[address] [facility] [address] CERVICAL SPINE WO CONTRAST 2022-11-01 Misael Cheema [facility] 19:59:[address] [facility] [address] HEAD WO CONTRAST 2022-11-01 Misael Cheema [facility] 19:59:00 [facility] POCT GLUCOSE (AUTOMATED) 2022-11-01 Misael Cheema [facility] 19:24:00 [facility] CREATINE KINASE 2022-11-01 Misael Cheema [facility] 19:21:00 [facility] TROPONIN I 2022-11-01 Misael Cheema [facility] 19:21:00 [facility] HEPATIC FUNCTION PANEL 2022-11-01 [facility] ([id number]) (ALB,T.PRO,BILI 19:21:00 [facility] T,BU/BC,ALT,AST,ALK PHOS) COMP. METABOLIC PANEL ([id number]) 2022-11-01 Misael Cheema [facility] 19:21:00 [facility] IRON PANEL 2022-11-01 Adrian, [place] 19:21:00 [facility] ETHANOL 2022-11-01 Misael Cheema [facility] xa 19:21:00 [facility] CBC WITH DIFF 2022-11-01 Misael Cheema [facility] xa 19:21:00 [facility] GLYCOSYLATED HEMOGLOBIN (A1C) 2022-11-01 Shannan Murray [facility] 19:21:00 [facility] HOSPITAL ADMISSION 2022-11-01 Doctor Unassigned, [facility] 05:01:00 [place] [facility] EKG-12 LEAD 2022-09-08 Marcial Vaughan [facility] 07:48:44 Medical Branch XR STROKE CHEST 1 VW 2022-09-08 Marcial Vaughan [facility] 06:25:23 [facility] URINALYSIS 2022-09-08 [facility] 06:[facility] STROKE ANGIOGRAM HEAD 2022-09-08 Marcial Vaughan [facility] 06:11:[address] [facility] [address] STROKE ANGIOGRAM NECK 2022-09-08 Marcial Vaughan [facility] 06:11:00 Medical Branch TROPONIN I 2022-09-08 Marcial Vaughan [facility] 05:45:00 [facility] BASIC METABOLIC PANEL (NA, K, 2022-09-08 Marcial Vaughan [facility] CL, CO2, GLUCOSE, BUN, 05:45:00 Medical B marybeth CREATININE, CA) CBC WITHOUT DIFF 2022-09-08 Marcial Vaughan [facility] 05:45:00 Medical Branch PROTHROMBIN TIME / INR 2022-09-08 Marcial Vaughan [facility] 05:45:00 Medical Branch ACTIVATED PARTIAL THRMPLAS 2022-09-08 Marcial Vaughan [facility] 05:45:00 Medical Branch COVID-19 (ID NOW RAPID 2022-09-08 Marcial Vaughan [facility] TESTING) 05:45:00 Medical Branch POCT GLUCOSE (AUTOMATED) 2022-09-08 Yarima, [facility] 05:40:00 [facility] 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 2022-01-30 Doctor Unassigned, [facility] 05:01:00 [place] [facility] POCT GLUCOSE (AUTOMATED) 2022-01-16 [facility] 17:46:00 [facility] POCT GLUCOSE (AUTOMATED) 2022-01-16 [facility] 13:53:00 [facility] URINALYSIS 2022-01-16 Madhavi Brayn [facility] 09:18:00 [facility] URINE DRUG (IMMUNOASSAY) - 2022-01-16 [facility]EN 09:17:00 Medica l [place] MAGNESIUM 2022-01-16 [facility] xa 09:14:00 [facility] VITAMIN B12, LEVEL 2022-01-16 [facility] 09:14:00 [facility] BASIC METABOLIC PANEL (NA, K, 2022-01-16 [facility] CL, CO2, GLUCOSE, BUN, 09:14:00 [facility] ranch CREATININE, CA) LIPID PANEL ([id number])(TOTAL 2022-01-16 [facility] CHOLESTEROL, TRIGLYCERIDES, 09:14:00 [facility] HDL) POCT GLUCOSE (AUTOMATED) 2022-01-16 [facility] 01:25[facility]00 [facility] MR STROKE BRAIN WO CONTRAST 2022-01-16 [facility] 00:30:17 [facility] URINE CULTURE 2022-01-15 [facility] 21:41:[facility] [address] STROKE ANGIOGRAM HEAD 2022-01-15 Madhavi Bryan [facility] 17:16:[address] STROKE ANGIOGRAM NECK 2022-01-15 Madhavi Bryan [facility] 17:16:[address] STROKE PERFUSION W 2022-01-15 Madhavi Bryan [facility] CONTRAST 17:16:[address] STROKE HEAD WO CONTRAST 2022-01-15 Madhavi Bryan [facility] 17:02:00 Medical Branch MAGNESIUM 2022-01-15 Mondragon, [facility] 16:43:00 Medical Branch TROPONIN I 2022-01-15 Madhavi Bryan [facility] 16:43:00 [facility] THYROID STIMULATING HORMONE 2022-01-15 Giancarlo [facility] 16:43:00 Medical Branch HEPATIC FUNCTION PANEL 2022-01-15 Ofelia Mondragon [facility] ([id number]) (ALB,T.PRO,BILI 16:43:00 Medical Branch T,BU/BC,ALT,AST,ALK PHOS) BASIC METABOLIC PANEL (NA, K, 2022-01-15 Madhavi Bryan [facility] CL, CO2, GLUCOSE, BUN, 16:43:00 [facility] ranch CREATININE, CA) CBC WITHOUT DIFF 2022-01-15 Madhavi Bryan [facility] 16:43:00 [facility] GLYCOSYLATED HEMOGLOBIN (A1C) 2022-01-15 Giancarlo [facility] 16:43:00 [facility] PROTHROMBIN TIME / INR 2022-01-15 Madhavi Bryan [facility] 16:43:00 [facility] ACTIVATED PARTIAL THRMPLAS 2022-01-15 Madhavi Bryan [facility] 16:43:00 [facility] COVID-19 (ID NOW RAPID 2022-01-15 Madhavi Bryan [facility] TESTING) 16:43:00 Medical Branch LAB ONLY COVID INTERPRETATION 2022-01-15 Madhavi Bryan [facility] 16:43:00 [facility] HB ECG ROUTINE & RHYTHM STRIP 2022-01-15 Madhavi Bryan [facility] 16:37:15 [facility] POCT GLUCOSE (AUTOMATED) 2022-01-15 Madhavi Bryan [facility] 16:37:00 [facility] HOSPITAL ADMISSION 2022-01-15 Doctor Unassigned, [facility] 05:01:00 [place] [facility] 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 [facility] 12:18:00 Medical Branch POCT GLUCOSE (AUTOMATED) 2021-09-23 [facility] 01:31:00 Medical Branch POCT GLUCOSE (AUTOMATED) 2021-09-22 [facility] 21:09:00 Medical Branch POCT GLUCOSE (AUTOMATED) 2021-09-22 Quan Darian [facility] 16:30:00 Medical Branch DUPLEX VENOUS LEGS BILATERAL 2021-09-22 [facility] - BY VASCULAR LAB 15:23:[address] [address] CHEST PULMONARY ANGIOGRAM 2021-09-22 Darian Glass [facility] 10:43:00 Medical [place] TROPONIN I 2021-09-22 [facility] 10:09:00 Medical Branch COMP. METABOLIC PANEL ([id number]) 2021-09-22 Darian Glass [facility] 10:09:00 [facility] N-TERMINAL PRO-BNP 2021-09-22 Quan [facility] 10:09:00 [facility] HB ECG ROUTINE & RHYTHM STRIP 2021-09-22 Darian Glass [facility] 09:42:38 Medical Branch CBC WITH DIFF 2021-09-22 [facility] 09:34:00 Medical Branch PROTHROMBIN TIME / INR 2021-09-22 Darian Glass [facility] 09:34:00 Medical Branch ACTIVATED PARTIAL THRMPLAS 2021-09-22 Darian Glass [facility] L[facility] 09:34:00 Medical Branch XR CHEST 1 VW 2021-09-22 Quan [facility] 09:26:09 Medical Branch NOTICE OF PRIVACY PRACTICES 2021-09-22 Doctor Unassigned, [facility] 08:51:55 [place] [facility] CONSENT/REFUSAL FOR DIAGNOSIS 2021-09-22 Doctor Unassigned, [facility] AND TREATMENT 08:49:29 [place] [facility] XR CHEST 1 VW 2021-04-29 Madhavi Bryan [facility] 16:12:54 Medical Branch XR FOOT 3+ VW LEFT 2021-04-29 Madhavi Bryan [facility] 16:12:[address] TRAUMA HEAD WO CONTRAST 2021-04-29 Madhavi Bryan Un [facility] 16:01:[address] TRAUMA CERVICAL SPINE WO 2021-04-29 Madhavi Bryan U [facility] CONTRAST 16:01:35 Medical Branch NOTICE OF PRIVACY PRACTICES 2021-04-29 Doctor Unassigned, [facility] 15:17:27 [place] [facility] NOTICE OF PRIVACY PRACTICES 2021-04-29 Doctor Unassigned, [facility] 15:17:01 [place] [facility] [place] CONSENT/REFUSAL FOR DIAGNOSIS 2021-04-29 Doctor Unassigned, [facility] AND TREATMENT 15:16:10 [place] [facility] [place] PATIENT QUESTIONNAIRE 2021-02-14 Doctor Unassigned, [facility] 05:01:00 [place] [facility] POCT GLUCOSE (AUTOMATED) 2021-01-24 [facility] 16:23:00 Medical Branch POCT GLUCOSE (AUTOMATED) 2021-01-24 [facility] 12:34:00 [facility] URINALYSIS 2021-01-24 [facility] xa 12:21:00 [facility] CBC WITH DIFF 2021-01-24 [facility] 08:13:00 [facility] GLYCOSYLATED HEMOGLOBIN (A1C) 2021-01-24 [facility] 08:13:00 [facility] BASIC METABOLIC PANEL (NA, K, 2021-01-24 [facility] CL, CO2, GLUCOSE, BUN, 08:02:00 [facility] ran CREATININE, CA) POCT GLUCOSE (AUTOMATED) 2021-01-24 [facility] 01:20:00 [facility] POCT GLUCOSE (AUTOMATED) 2021-01-23 [facility] 21:27:00 Medical Branch POCT GLUCOSE (AUTOMATED) 2021-01-23 [facility] 16:35:00 [facility] CAROTID DUPLEX BILATERAL - BY 2021-01-23 [facility] VASCULAR LAB 15:19:00 [facility] TRANSTHORACIC ECHO (TTE) 2021-01-23 Carmen Brennan [facility] COMPLETE 14:50:21 Medical Branch MR BRAIN WO CONTRAST 2021-01-23 Radha Palomares [facility] 14:06:16 Medical [place] POCT GLUCOSE (AUTOMATED) 2021-01-23 [facility] 12:39:00 Medical Branch BASIC METABOLIC PANEL (NA, K, 2021-01-23 Carmen Brennan [facility] CL, CO2, GLUCOSE, BUN, 08:53:00 Medical B ranch CREATININE, CA) CBC WITH DIFF 2021-01-23 M[facility] 08:53:00 Medical Branch POCT GLUCOSE (AUTOMATED) 2021-01-23 [facility] 01:25:00 Medical [place] POCT GLUCOSE (AUTOMATED) 2021-01-22 [facility] 21:35:00 Medical Branch POCT GLUCOSE (AUTOMATED) 2021-01-22 [facility] 17:15:00 Medical Branch POCT GLUCOSE (AUTOMATED) 2021-01-22 [facility] 12:33:00 Medical Branch BASIC METABOLIC PANEL (NA, K, 2021-01-22 [facility] CL, CO2, GLUCOSE, BUN, 08:48:00 Medical B ran CREATININE, CA) CBC WITH DIFF 2021-01-22 [facility] xa 08:48:00 Medical Branch POCT GLUCOSE (AUTOMATED) 2021-01-22 [facility] 01:06:00 Medical Branch POCT GLUCOSE (AUTOMATED) 2021-01-21 [facility] 22:01:00 Medical Branch XR CHEST 1 VW 2021-01-21 M[facility] 21:22:59 Medical Branch POCT GLUCOSE (AUTOMATED) 2021-01-21 [facility] 20:54:00 Medical Branch POCT GLUCOSE (AUTOMATED) 2021-01-21 [facility] 20:48:00 Medical Branch POCT GLUCOSE (AUTOMATED) 2021-01-21 [facility] 16:35:[address] ANGIOGRAM HEAD 2021-01-21 [facility] 15:38:[address] ANGIOGRAM NECK 2021-01-21 [facility] 15:38:50 Medical Branch POCT GLUCOSE (AUTOMATED) 2021-01-21 [facility] 13:16:00 Medical Branch THYROID STIMULATING HORMONE 2021-01-21 [facility] 11:25:00 Medical Branch BASIC METABOLIC PANEL (NA, K, 2021-01-21 Carmen Brennan [facility] CL, CO2, GLUCOSE, BUN, 11:25:00 [facility] CREATININE, CA) LACTIC ACID WHOLE BLOOD 2021-01-21 [facility] 08:56:[address] ABDOMEN PELVIS W CONTRAST 2021-01-21 Marcial Vaughan [facility] 00:43:39 Medical Branch XR CHEST 1 VW 2021-01-21 [facility]as 00:03:[address] HEAD WO CONTRAST 2021-01-20 [facility] 23:13:11 [facility] URINALYSIS 2021-01-20 [facility] xa 22:49:00 Medical Branch COVID-19 (ID NOW RAPID 2021-01-20 [facility] TESTING) 22:44:00 Medical Branch LAB ONLY COVID INTERPRETATION 2021-01-20 Singer Sergey [facility] 22:44:00 Medical Branch TROPONIN I 2021-01-20 [facility] 22:17:00 Medical Branch COMP. METABOLIC PANEL ([id number]) 2021-01-20 [place], [facility] 22:17:00 Medical Branch CBC WITH DIFF 2021-01-20 [facility] xa 22:17:00 Medical Branch LACTIC ACID WHOLE BLOOD 2021-01-20 [facility] 22:08:00 Medical Branch ED SPLINT APPLICATION 2020-02-14 Jayne Lipscomb [facility] 21:02:00 Medical Branch XR FOOT 3+ VW RIGHT 2020-02-14 Jayne Lipscomb [place] 20:06:52 Medical Branch NOTICE OF PRIVACY PRACTICES 2020-02-14 [facility] 19:17:32 [place] [facility] CONSENT/REFUSAL FOR DIAGNOSIS 2020-02-14 Doctor Unassigned, [facility] AND TREATMENT 19:17:05 [place] [facility] COMP. METABOLIC PANEL ([id number]) 2019-09-20 [facility] 19:05:00 Medical Branch URINALYSIS 2019-09-20 Jayne Lipscomb [facility] xa 19:05:00 Medical Branch CBC WITH DIFFERENTIAL 2019-09-20 Jayne Lipscomb [facility] 19:05:00 Medical Branch CORONAVIRUS COVID-19 TESTING 2019-09-20 Jayne Lipscomb [facility] 19:05:00 Medical Branch XR CHEST 1 VW COVID 2019-09-20 Jayne Lipscomb [place] [facility] [place] 18:27:24 Medical Branch POCT GLUCOSE (AUTOMATED) 2019-02-15 Tod Singh [facility] 12:32:00 Medical Branch URINALYSIS 2019-02-15 Darian Glass [facility] xa 04:09:[address] CHEST PULMONARY ANGIOGRAM 2019-02-15 Casa Rivera [facility] 02:31:13 Medical Branch TROPONIN I 2019-02-15 Casa Rivera [facility] xa 01:14:00 Medical Branch COMP. METABOLIC PANEL (03883) 2019-02-15 Casa Rivera [facility] 01:14:00 Medical Branch CBC WITH DIFFERENTIAL 2019-02-15 Casa Rivera [facility] 01:14:00 Medical Branch PROTHROMBIN TIME / INR 2019-02-15 Casa Rivera [facility] 01:14:00 Medical Branch ACTIVATED PARTIAL THRMPLAS 2019-02-15 [facility] 01:14:00 Medical Branch N-TERMINAL PRO-BNP 2019-02-15 Casa Rivera [facility] 01:14:00 Medical Branch EKG-12 LEAD 2019-02-15 Casa Rivera [facility]as 00:52:44 Medical Branch CONSENT/REFUSAL FOR DIAGNOSIS 2019-02-15 Doctor Unassigned, [facility] AND TREATMENT 00:29:32 [place] [facility] NOTICE OF BILLING PRACTICES 2019-01-31 Doctor Unassigned, [facility] FOR MEDICARE PATIENTS 16:25:34 [place] Medical Br anch Stent placement [facility] Plan of Care Planned Activity Planned Date Details Comments Source Future Scheduled 2022-12-20 [facility] 02:13:19 malignant neoplasm of colon (procedure) [code = 346238251] Future Scheduled 2022-12-20 [facility] 02:13:19 malignant neoplasm of colon (procedure) [code = 522561297] Future Scheduled 2022-12-20 [facility] Test 02:13:19 malignant neoplasm of colon (procedure) [code = 594834183] Future Scheduled 2022-12-20 Hepatitis C screening [facility] Test 02:13:19 (procedure) [code = 438415246] Future Scheduled 2022-12-20 BREAST CANCER [facility] Test 02:13:19 SCREENING [code = BREAST CANCER SCREENING] Future Scheduled 2022-12-20 Screening for [facility] Test 02:13:19 malignant neoplasm of colon (procedure) [code = 916804322] Future Scheduled 2022-12-20 [facility] 02:13:19 malignant neoplasm of colon (procedure) [code = 504478745] Future Scheduled 2022-12-20 SHINGLES VACCINES (1 Met [facility] Hospital Test 02:13:19 of 2) [code = SHINGLES VACCINES (1 of 2)] Future Scheduled 2022-12-20 65+ [facility] 02:13:19 VACCINE (2 - PPSV23 if available, else PCV20) [code = 65+ PNEUMOCOCCAL VACCINE (2 - PPSV23 if available, else PCV20)] Future Scheduled 2022-12-20 COVID-19 VACCINE (5 - [facility] Hospital Test 02:13:19 Moderna series) [code = COVID-19 VACCINE (5 - Moderna series)] Future Scheduled 2022-12-20 INFLUENZA VACCINE [facility] Hospital Test 02:13:19 [code = INFLUENZA VACCINE] Future Scheduled 2022-12-20 [facility] 02:13:19 malignant neoplasm of colon (procedure) [code = 529070505] Future Scheduled 2022-12-20 Screening for [facility] Test 02:13:19 malignant neoplasm of colon (procedure) [code = 501717996] Future Scheduled 2022-12-20 Screening for [facility] Test 02:13:19 malignant neoplasm of colon (procedure) [code = 462608057] Future Scheduled 2022-12-20 Hepatitis C screening [facility] Test 02:13:19 (procedure) [code = 442703156] Future Scheduled 2022-12-20 BREAST CANCER [facility] Test 02:13:19 SCREENING [code = BREAST CANCER SCREENING] Future Scheduled 2022-12-20 Screening for [facility] Test 02:13:19 malignant neoplasm of colon (procedure) [code = 367670747] Future Scheduled 2022-12-20 Screening for [facility] Test 02:13:19 malignant neoplasm of colon (procedure) [code = 575773822] Future Scheduled 2022-12-20 [facility]INGLES [facility]ACCINES ([facility] 02:13:19 of 2) [code = SHINGLES VACCINES (1 of 2)] Future Scheduled 2022-12-20 65+ PNEUMOCOCCAL [facility] Test 02:13:19 VACCINE (2 - PPSV23 if available, else PCV20) [code = 65+ PNEUMOCOCCAL VACCINE (2 - PPSV23 if available, else PCV20)] Future Scheduled 2022-12-20 COVID-19 VACCINE (5 - [facility] Test 02:13:19 Moderna series) [code = COVID-19 VACCINE (5 - Moderna series)] Future Scheduled 2022-12-20 INFLUENZA VACCINE [facility] Test 02:13:19 [code = INFLUENZA VACCINE] Future Scheduled 2022-12-13 Screening for [facility] Test 14:58:31 malignant neoplasm of colon (procedure) [code = 566150488] Future Scheduled 2022-12-13 Screening for [facility] Test 14:58:31 malignant neoplasm of colon (procedure) [code = 458916909] Future Scheduled 2022-12-13 Screening for [facility] Test 14:58:31 malignant neoplasm of colon (procedure) [code = 595520557] Future Scheduled 2022-12-13 Hepatitis C screening [facility] Test 14:58:31 (procedure) [code = 371593828] Future Scheduled 2022-12-13 BREAST CANCER [facility] Test 14:58:31 SCREENING [code = BREAST CANCER SCREENING] Future Scheduled 2022-12-13 Screening for [facility] Test 14:58:31 malignant neoplasm of colon (procedure) [code = 234502994] Future Scheduled 2022-12-13 Screening for [facility] Test 14:58:31 malignant neoplasm of colon (procedure) [code = 550181867] Future Scheduled 2022-12-13 SHINGLES VACCINES (1 Met [facility] Hospital Test 14:58:31 of 2) [code = SHINGLES VACCINES (1 of 2)] Future Scheduled 2022-12-13 65+ PNEUMOCOCCAL [facility] Hospital Test 14:58:31 VACCINE (2 - PPSV23 if available, else PCV20) [code = 65+ PNEUMOCOCCAL VACCINE (2 - PPSV23 if available, else PCV20)] Future Scheduled 2022-12-13 COVID-19 VACCINE (4 - [facility] Test 14:58:31 Moderna series) [code = COVID-19 VACCINE (4 - Moderna series)] Future Scheduled 2022-12-13 INFLUENZA VACCINE [facility] Test 14:58:31 [code = INFLUENZA VACCINE] Future Scheduled 2022-12-03 Screening for [facility] Test 20:48:00 malignant neoplasm of colon (procedure) [code = 098537283] Future Scheduled 2022-12-03 Screening for [facility] Test 20:48:00 malignant neoplasm of colon (procedure) [code = 355769772] Future Scheduled 2022-12-03 Screening for [facility] Test 20:48:00 malignant neoplasm of colon (procedure) [code = 664285323] Future Scheduled 2022-12-03 Hepatitis C screening [facility] Test 20:48:00 (procedure) [code = 184001083] Future Scheduled 2022-12-03 BREAST CANCER [facility] Test 20:48:00 SCREENING [code = BREAST CANCER SCREENING] Future Scheduled 2022-12-03 Screening for [facility] Test 20:48:00 malignant neoplasm of colon (procedure) [code = 580729656] Future Scheduled 2022-12-03 Screening for [facility] Test 20:48:00 malignant neoplasm of colon (procedure) [code = 176571221] Future Scheduled 2022-12-03 SHINGLES VACCINES (1 Met [facility] Hospital Test 20:48:00 of 2) [code = [...] Type Clinicians Facility Department ID 2021-03-31 Emergency [facility] [id number] Univers 17:15:00 ity [facility] 2019-08-06 Inpatient Fer Dell [facility] JEANINE [id number] 14:29:00 [facility] 2022-12-19 2022-12-[address] [facility] [id number] [place] 10:01:07 10:01:07 [id number] F Harish 2022-12-05 2022-12-05 Transition CHRIS VanceArabella [id number] Univers 00:00:00 00:00:00 of Care Nurys CARLOS [id number] it y of MELISSA 4.2.7.2.686 [facility] [id number] [place] [address] Branch 2022-12-02 2022-12-03 Outpatient X MARIELLE [facility] ALTA [id number] Univers 13:56:00 15:40:00 RADHA corona [facility] 2022-12-02 2022-12-03 Emergency Arleth Muñoz F [facility] 1.2. [id number] Univers 13:56:00 15:40:00 Radha Palomares [id number] ity of PAUL 4.2.7.2.686 [facility] [id number] [place] [address] Branch 2022-11-20 2022-11-20 Outpatient R SANTOSH GARZA [facility] [id number] Univers 10:00:00 10:00:00 SANTOSH GARZA ity of [facility] 2022-11-06 2022-11-06 Transition MRAGARETTE Vance [id number] Univers 00:00:00 00:00:00 of Care Nurys GONZALEZ [id number] it y [facility] 4.2.7.2.686 [facility] [id number] [facility] 403 Branch 2022-11-01 2022-11-05 Inpatient [facility] CELINA [id number] Univers 13:57:00 17:48:00 [facility] ity o [facility] 2022-11-01 2022-11-05 [facility] Misael Cheema [id number] Univers 13:57:00 17:48:00 Encounter Matt Edwards [id number] ity [facility] 4.2.7.2.686 [place] [id number] [facility] 098 Branch 2022-10-08 2022-10-08 Care Christin King 2.16.840. 2.16.840.1. [id number] [facility] 14:30:00 15:00:00 [employer] [id number]. 656748.4.6. R8G Medical [id number] 2022-10-06 2022-10-06 [place] [id number] [place] [id number] [facility] 00:00:00 00:00:00 0506 Medica l Group 2022-09-11 2022-09-11 Care Andreia Buckley 2.16.840. 2.16.840.1. C [id number] [facility] 13:30:00 14:00:00 [employer] [id number]. 143741.4.6. W9H Medical 4.6.59653 [id number] 2022-09-08 2022-09-08 Emergency X [facility] ERT [id number] Univers 00:46:00 05:02:00 MARCIAL ity of [facility] 2022-09-08 2022-09-08 Emergency [facility]ly [facility] [id number] Univers 00:46:00 05:02:00 Marcial HASSAN 350.1.13.10 ity [facility] 4.2.7.2.686 [facility] [id number] [place] [address] Branch 2022-09-07 2022-09-[address] [facility] [id number] [place] 15:55:13 15:55:13 [id number] F Harish 2022-08-29 2022-08-29 IHC Larisa 2.16.840. 2.16.840.1. CLAC [id number] [facility] 17:30:00 18:00:00 Graduation [facility] [id number]. 762550.4.6. F5F Medical 4. [id number] 2022-07-05 2022-07-05 Ambulatory MHIE MNA [id number] Memoria 16:30:00 16:30:00 Pre-Reg Neurology 19 l [place] 2022-07-05 2022-07-05 Ambulatory MHIE MNA [id number] Memoria 16:30:00 16:30:00 Pre-Reg Neurology 19 l [place] 2022-07-05 2022-07-05 Outpatient MHIE MHIE [id number] Memoria 10:30:00 10:30:00 19 l Yong 2022-07-05 2022-07-05 [facility] [id number] 10:30:00 10:30:00 Piotr 19 Samuel 2022-06-11 2022-06-11 IHC Follow Larisa 2.16.840. 2.16.840.1. C [id number] [facility] 15:30:00 16:30:00 Up [place] [id number]. 826985.4.6. G8J Medical 4. [id number] 2022-05-18 2022-05-18 CAV Nimesh Parra 2.16.840. 2.16.840.1. CLA [id number] [facility] 20:00:00 21:00:00 [id number]. [id number]. [id number] Medical [id number] [id number] 2022-04-20 2022-04-20 IHC Follow Nimesh Parra 2.16.840. 2.16.840.1. [id number] [facility] 19:30:00 20:00:00 Up [id number]. 720897.4.6. EZ2 Medical 4.6.60272 [id number] 2022-04-03 2022-04-03 IHC Follow Nimesh Parra 2.16.840. 2.16.840.1. [id number] [facility] 18:30:00 19:00:00 Up 1.363863. 677269.4.6. 487 Medical 4.6.20627 [id number] 2022-03-26 2022-03-[address] [id number] [facility] 10:30:00 10:30:00 [facility] 2022-03-13 2022-03-14 Outpatient nullFlavo MNA [id number] Memoria 18:15:00 04:59:59 r Neurology 18 l [place] 2022-03-13 2022-03-14 Outpatient nullFlavo MNA [id number] Memoria 18:15:00 04:59:59 r Neurology 18 l [place] 2022-03-13 2022-03-13 [facility] [id number] 13:15:00 23:59:59 Piotr Baker 2022-03-13 2022-03-13 Outpatient VIVIAN LESLY [id number] Memoria 13:15:00 13:15:00 18 [place] 2022-03-08 2022-03-08 IHC Follow Nimesh Parra 2.16.840. 2.16.840.1. [id number] [facility] 14:30:00 15:30:00 Up 1.456427. 168989.4.6. RAG Medical 4.6.91945 [id number] 2022-01-30 2022-01-30 Telephone SARA Tavares 1.2.840.114 [id number] Univers 00:00:00 00:00:00 Coretta R CALVIN 350.1.13.10 i ty of [place] [address].7.2.686 Hunter as [id number] [address] 2022-01-30 2022-01-30 Orders Doctor SARA 1.2.840.114 [id number] Univers 00:00:00 00:00:00 Only Unassigned, CALVIN 350.1.13.10 ity of [place] [address].2.686 Hunter as [phone] [address] 2022-01-25 2022-01-25 Telephone SARA Tavares 1.2.840.114 [id number] Univers 00:00:00 00:00:00 Coretta SIMPSON 350.1.13.10 i ty of [place] [address].2.686 [place] as [phone] [address] 2022-01-22 2022-01-23 Outpatient nullFlavo MNA [id number] [facility] 18:00:00 04:59:59 r Neurology 17 l [place] Josephann 2022-01-22 2022-01-23 Outpatient nullFlavo MNA [id number] 04:59:59 r Neurology 17 l Rocky Gaplitzy Josephann 2022-01-22 2022-01-22 Outpatient KTAIE Josue [facility] [id number] 13:00:00 23:59:59 Piotr 17 Samuel 2022-01-22 2022-01-22 Outpatient MHIE IE [id number] [facility] 13:00:00 13:00:00 17 l Yong 2022-01-22 2022-01-22 SARA Iniguez2.840.114 [id number] [facility] 00:00:00 00:00:00 Coretta SIMPSON 350.1.13.10 i ty of [place] [address].2.686 [place] as [phone] [address] 2022-01-22 2022-01-22 Telephone SARA Tavares 1.2.840.114 [id number] Univers 00:00:00 00:00:00 Coretta SIMPSON 350.1.13.10 i ty [facility] 4.2.7.2.686 [place] as [id number] [facility] 025 Branch 2022-01-17 2022-01-17 Transition MARGARETTE Vance 1.2.840.114 [id number] Univers 00:00:00 00:00:00 of Care Nurys GONZALEZ 350.1.13.10 it y of [place].7.2.[place] [phone] [facility] 403 Branch 2022-01-15 2022-01-16 Outpatient U [facility] [place] [facility] [id number] Univers 11:32:00 17:45:00 SAMUEL ity [facility] 2022-01-15 2022-01-16 Emergency Madhavi Bryan 1.2.8 40.114 [id number] Univers 11:32:00 17:45:00 Samuel Ann 350.1.13.10 ity [facility] 4.2.7.2.686 [place] as [id number] [facility] 098 Branch 2022-01-11 2022-01-11 IHC Follow Nimesh Wrightm 2.16.840. 2.16.840.1. [id number] [facility] 16:00:00 17:00:00 Up 1.103368. 117310.4.6. G9U [facility] 4.6.44962 [id number] 2022-01-03 2022-01-05 Outside nullFlavo MNA [id number] [facility]oria 14:11:30 04:59:59 Medical r Neurology 04 l Records Jarocho Josephann 2022-01-03 2022-01-05 Outside nullFlavo MNA [id number] [facility]oria 14:11:30 04:59:59 Medical r Neurology 04 l Records Jar[place] Josephann 2022-01-03 2022-01-04 Outpatient MHMISCHER MHMISCHER [id number] [id number] 09:11:30 23:59:59 04 2021-12-15 2021-12-15 Outpatient hpham29 DMG DMG [id number] 022 [facility] 03:39:00 03:39:00 0715 [facility] 2021-12-15 2021-12-15 Outpatient hpham29 DMG G [id number] 023 [facility] 00:00:00 00:00:00 0404 [facility] l [facility] 2021-12-01 2021-12-01 Outpatient [email or web address] DMG DMG [id number] 022 [facility] 10:00:00 10:00:00 0701 Medica l Group 2021-11-22 2021-11-22 Outpatient hpham29 DMG DMG [id number] [facility] 01:41:00 01:41:00 0622 Medica l Group 2021-11-07 2021-11-07 IHC Follow Nimeshfrancoise Wrightm 2.16.840. 2.16.840.1. [id number] [facility] 20:00:00 20:30:00 Up 1.468991. 107780.4.6. 5K7 [facility] 4.6.57487 [id number] 2021-10-10 2021-10-10 Orders Doctor SARA 1.2.840.114 [id number] Univers 00:00:00 00:00:00 Only Unassigned, CALVIN 350.1.13.10 ity of [place] [facility] 4.2.7.2.686 Hunter as [id number] [facility] 009 Branch 2021-09-25 2021-09-25 Transition Pinky CHRISArabella 1.2.840.114 [id number] Univers 00:00:00 00:00:00 of Care Nurys GONZALEZ 350.1.13.10 it y of [place]2.7.2.[place] [phone] [facility] 403 Branch 2021-09-22 2021-09-23 Outpatient X FAN PRINCE [facility] [id number] Univers 04:01:00 15:37:00 FAN PRINCE ity [facility] 2021-09-22 2021-09-23 Emergency Darian Glass [facility] 1.2.840. 114 [id number] Univers 04:01:00 15:37:00 Fan Prince [facility] 350.1.13.10 ity of [place] 4.2.7.2.686 [facility] [id number] [address] ([facility]) 2021-09-19 2021-09-19 IHC Follow Nimesh Parra 2.16.840. 2.16.840.1. [id number] [facility] 18:00:00 19:00:00 Up 1.082697. 693758.4.6. FUC Medical 4.6.44971 [id number] 2021-09-05 2021-09-05 Ambulatory nullFlavo MNA [id number] Memoria 14:30:00 14:30:00 Pre-Reg r Neurology 16 l [place] 2021-09-05 2021-09-05 Ambulatory nullFlavo MNA [id number] [facility]oria 14:30:00 14:30:00 Pre-Reg r Neurology 16 l [place] 2021-09-05 2021-09-05 Outpatient MHIE VIVIAN [id number] [facility] 09:30:00 09:30:00 16 l Yong 2021-09-05 2021-09-05 Outpatient Joselo MISCHER MISCHER [id number] 09:30:00 09:30:00 Piotr Peng Samuel 2021-08-14 2021-08-14 [facility] [id number] [place] [address] 00:00:00 00:00:00 AUTUMN 696 Miguel salazar 2021-08-11 2021-08-11 Outpatient R [facility] [id number] Univers 12:00:00 [facility] 2021-07-17 2021-07-17 IHC Follow Nimesh Parra 2.16.840. 2.16.840.1. [id number] [facility] 15:30:00 16:30:00 Up 1.574453. 452309.4.6. 8S7 Medical 4.6.43180 [id number] 2021-06-23 2021-06-23 Outpatient R SOSA [facility] [id number] Univers 11:30:00 11:30:00 STEPHANIE [facility] 2021-06-07 2021-06-08 Outpatient nullFlavo MNA [id number] [facility] 16:15:00 05:59:59 r Neurology 15 l [place] 2021-06-07 2021-06-08 Outpatient nullFlavo MNA [id number] [facility] 16:15:00 05:59:59 r Neurology 15 l [place] 2021-06-07 2021-06-07 Outpatient Joselo, [facility]HMISCHER [facility] [id number] 10:15:00 23:59:59 Piotr 15 Samuel 2021-06-07 2021-06-07 Outpatient MHIE MHIE [id number] [facility]oria 10:15:00 10:15:00 15 l [place] 2021-05-05 2021-05-05 IHC Follow Nimesh [facility] 2.16.840. 2.16.840.1. [id number] [facility] 15:00:00 15:30:00 1.773954. 260619.4.6. 8J9 [place] [address].6.64200 [id number] 2021-04-29 2021-04-29 Emergency [facility] [id number] Univers 09:31:00 10:59:00 MADHAVI corona [facility] 2021-04-29 2021-04-29 Emergency [facility] 1.2.840.114 [id number] Univers 09:31:00 10:59:00 Madhavi HASSAN 350.1.13.10 chloe PAUL 4.2.7.2.686 [place] [facility] [id number] [address] 2021-04-29 2021-04-[address] [facility] [id number] Univers 10:00:00 10:00:00 CHAVO guerrero [facility] 2021-04-29 2021-04-29 Telephone [facility] 1.2.840.114 [id number] Univers 00:00:00 00:00:00 [facility] 350.1.13.10 i [place] 4.2.7.2.686 [place] as ANA LAURA?BLEA [phone] [place] chai [address] MEDICAL OFFICE [facility]ILDING 2021-04-29 2021-04-29 Orders Doctor SARA 1.2.840.114 [id number] Univers 00:00:00 00:00:00 Only Unassigned, CALVIN 350.1.13.10 ity of [place] [facility] 4.2.7.2.686 [place] as [phone] [address] 2021-04-20 2021-04-20 Ambulatory nullFlavo MNA 44501 [id number] Memoria 19:45:00 19:45:00 Pre-Reg r Neurology 14 l [place] 2021-04-20 2021-04-20 Ambulatory nullFlavo MNA [id number] Memoria 19:45:00 19:45:00 Pre-Reg r Neurology 14 l [place] 2021-04-20 2021-04-20 Outpatient MHIE IE [id number] [facility]oria 13:45:00 13:45:00 14 l Yong 2021-04-20 2021-04-20 Outpatient [facility]elo [facility] [id number] 13:45:00 13:45:00 Piotr Conchis Samuel 2021-04-12 2021-04-12 IHC Follow Nimesh Parar 2.16.840. 2.16.840.1. [id number] [facility] 22:00:00 22:30:00 Up 1.724637. 609725.4.6. 7CJ Medical 4.6.95407 [id number] 21835 2021-04-07 2021-04-07 IHC Follow Nimesh Parra 2.16.840. 2.16.840.1. [id number] [facility] 20:30:00 21:15:00 Up 1.283534. 193553.4.6. 6JC Medical 4.6.51972 [id number] 52499 2021-03-08 2021-03-08 IHC Follow Nimesh Parra 2.16.840. 2.16.840.1. [id number] [facility] 14:30:00 15:15:00 Up 1.696510. 239327.4.6. Y74 Medical 4.6.18983 [id number] 13412 2021-02-14 2021-02-14 Orders Doctor SARA 1.2.840.114 [id number] Univers 00:00:00 00:00:00 Only Unassigned, CALVIN 350.1.13.10 ity of [place] [facility] 4.2.7.2.686 Hunter as [id number] [facility] 009 Branch 2021-02-08 2021-02-09 Outpatient nullFlavo MNA [id number] Memoria 19:30:00 04:59:59 r Neurology 13 l [place] 2021-02-08 2021-02-09 Outpatient nullFlavo MNA [id number] [facility]oria 19:30:00 04:59:59 r Neurology 13 l [place] 2021-02-08 2021-02-08 Outpatient SHYLA JosueMICAMRYN MHMISCHER [id number] 14:30:00 23:59:59 Piotr 13 Samuel 2021-02-08 2021-02-08 Outpatient MHIE MHIE [id number] Memoria 14:30:00 14:30:00 13 [place] 2021-01-25 2021-01-25 Transition Margarette Mccann 1.2.840.114 [id number] Univers 00:00:00 00:00:00 of Care Rebeca Gonzalez 350.1.13.10 i ty of [place] 4.2.7.2.686 [place] [id number] [facility] 403 Branch 2021-01-20 2021-01-24 Emergency Sergey Chapin [facility] 1.2.840. 114 [id number] Univers 16:45:00 13:03:00 Marcial Vaughan 350.1.13.10 ity of [place] 4.2.7.2.686 [facility] [id number] [facility] 081 Branch 2021-01-20 2021-01-24 Outpatient X FRANCISCO MNLISA ALTA [id number] Univers 16:45:00 13:03:00 TOD ity of [facility] 2021-01-18 2021-01-19 Outpatient nullFlavo MNA [id number] Memoria 16:30:00 04:59:59 r Neurology 12 l [place] 2021-01-18 2021-01-19 Outpatient nullFlavo MNA [id number] Memoria 16:30:00 04:59:59 r Neurology 12 l [place] 2021-01-18 2021-01-18 [facility] [id number] 11:30:00 23:59:59 Piotr 12 Samuel 2021-01-18 2021-01-18 Outpatient MHIE IE [id number] Memoria 11:30:00 11:30:00 12 [place] 2020-12-08 2020-12-09 Outpatient nullFlavo MNA [id number] Memoria 14:30:00 04:59:59 r Neurology 11 l [place] 2020-12-08 2020-12-09 Outpatient nullFlavo MNA [id number] Memoria 14:30:00 04:59:59 r Neurology 11 l [place] 2020-12-08 2020-12-08 [id number] 09:30:00 23:59:59 Piotr 11 Samuel 2020-12-08 2020-12-08 Outpatient MHIE MHIE [id number] Memoria 09:30:00 09:30:00 11 [place] 2020-12-02 2020-12-05 Outpatient DAVE SAVANAH [facility] [id number] [place] 00:00:00 00:00:[address] 2020-12-01 2020-12-03 Outside nullFlavo MNA [id number] Memoria 22:29:17 04:59:59 Medical r Neurology 03 l [place] 2020-12-01 2020-12-03 Outside nullFlavo MNA [id number] Memoria 22:29:17 04:59:59 Medical r Neurology 03 l [place] 2020-12-01 2020-12-02 [facility] [id number] 17:29:17 23:59:59 03 2020-10-05 2020-10-05 Ambulatory nullFlavo MNA [id number] Memoria 15:15:00 15:15:00 Pre-Reg r Neurology 10 l [place] Josephann 2020-10-05 2020-10-05 Ambulatory nullFlavo MNA [id number] Memoria 15:15:00 15:15:00 Pre-Reg r Neurology 10 l [place] Yong 2020-10-05 2020-10-05 Outpatient MHIE MHIE [id number] Memoria 10:15:00 10:15:00 10 l Yong 2020-10-05 2020-10-05 Outpatient [facility]elo [facility] [id number] 10:15:00 10:15:00 Piotr 10 Samuel 2020-09-21 2020-09-21 Outpatient [email or web address] DMG [facility] [id number] [facility] 04:19:00 04:19:00 0421 Medica l Group 2020-09-20 2020-09-20 Outpatient [email or web address] DMG RODY [id number] [facility] 11:40:00 11:40:00 0420 Medica l Group 2020-09-12 2020-09-12 Outpatient [email or web address] DMG [facility] [id number] [facility] 12:31:00 12:31:00 0412 Medica l Group 2020-09-08 2020-09-08 Outpatient OWENS_T RODYG [facility] [id number] [facility] 09:01:00 09:01:00 0408 Medica l Group 2020-09-08 2020-09-08 Outpatient KAREN Ramirez [id number] 00:00:00 00:00:00 Maribell [id number] Grupo [id number] 2020-09-08 2020-09-08 Maribell FINE MA - [id number] D evoted 00:00:00 00:00:00 Grupo Sandersa edilberto Ramirez CLERICAL ASSISTANT: Health [facility] [address], [place] [address] , Ph. 2020-09-07 2020-09-07 Outpatient OWENS_T DMG [facility] [id number] [facility] 06:03:00 06:03:00 0407 Medica l Group 2020-08-08 2020-08-08 Patient [place] [facility] 1.2.840.114 [id number] Univers 00:00:00 00:00:00 Outreach Prudencio PRIMARY 350.1.13.10 i ty of [place] [facility] 4.2.7.2.686 Elaine torres PAVILLION [id number] Il dical [address] [place] [address] 2020-08-08 2020-08-08 [facility] 1.2.840.114 [id number] 00:00:00 00:00:00 Outreach Prudencio PRIMARY 350.1.13.10 [place] CARE 4.2.7.2.686 PAVILLION [id number] 388 2020-06-14 2020-06-15 Outpatient nullFlavo MNA [id number] Memoria 19:15:00 05:59:59 r Neurology 09 l [place] 2020-06-14 2020-06-15 Outpatient nullFlavo MNA [id number] Memoria 19:15:00 05:59:59 r Neurology 09 l [place] 2020-06-14 2020-06-14 Outpatient KATIE Josue MISCHER [id number] 13:15:00 23:59:59 Piotr Bakre 2020-06-14 2020-06-14 Outpatient MHIE MHIE [id number] Memoria 13:15:00 13:15:00 09 edilberto Yong 2020-06-12 2020-06-12 Outpatient Maggie REED [facility] [id number] Univers 10:40:00 10:40:00 CLIFFORD hanna [facility] 2020-06-08 2020-06-08 Ambulatory nullFlavo MNA [id number] Memoria 15:15:00 15:15:00 Pre-Reg r Neurology 08 l [place] 2020-06-08 2020-06-08 Ambulatory nullFlavo MNA [id number] Memoria 15:15:00 15:15:00 Pre-Reg r Neurology 08 l [place] 2020-06-08 2020-06-08 Outpatient MHIE MHIE [id number] Memoria 09:15:00 09:15:00 08 [place] 2020-06-08 2020-06-08 Outpatient KATIE Josue MISCHLYNDA [id number] 09:15:00 09:15:00 Piotrjannet Baker 2020-02-17 2020-02-17 Patient Margarette Jimenez 1.2.840.114 [id number] Univers 00:00:00 00:00:00 Outreach Klesey Gonzalez 350.1.13.10 ity of [place]2.7.2.686 [place] [id number] [facility] [address] [place] 2020-02-17 2020-02-17 Patient Margarette Jimenez 1.2.840.114 [id number] 00:00:00 00:00:00 Outreach Kelsey Gonzalez 350.1.13.10 [place] 4.2.7.2.[id number] [facility] 2020-02-14 2020-02-14 Outpatient R DEREK [facility] [id number] Univers 19:40:00 19:40:00 CLIFFORD ity of [facility] 2020-02-14 2020-02-14 Emergency [facility] 1.2.053.797 [id number] Univers 14:26:00 16:05:00 Jayne Hassan 350.1.13.10 i ty of [place] 4.2.7.2.686 [place] [id number] [facility] [address] [place] [address] 2020-02-14 2020-02-14 Emergency [facility] 1.2.310.139 [id number] 14:26:00 16:05:00 Jayne aHssan 350.1.13.10 [place] 4.2.7.2.686 [place] [id number] [facility] 2020-02-14 2020-02-14 Orders Doctor RUIZ 1.2.840.114 [id number] Univers 00:00:00 00:00:00 Only Unassigned, CALVIN 350.1.13.10 ity of [place] [facility] 4.2.7.2.686 Hunter as [id number] [facility] [address] [place] 2020-02-14 2020-02-14 Orders Doctor RUIZ 1.2.840.114 [id number] 00:00:00 00:00:00 Only Unassigned, [place]VIN 350.1.13.10 [place] [facility] 4.2.7.2.686 [id number] 009 2019-12-10 2019-12-10 Ambulatory nullFlavo MNA [id number] Memoria 20:15:00 20:15:00 Pre-Reg r Neurology 07 l [place] 2019-12-10 2019-12-10 Ambulatory nullFlavo MNA [id number] Memoria 20:15:00 20:15:00 Pre-Reg r Neurology 07 l [place] 2019-12-10 2019-12-10 Outpatient SHYLA JosueMASCHER MISCHER [id number] 15:15:00 15:15:00 Piotr 07 Samuel 2019-12-10 2019-12-10 Ambulatory nullFlavo MNA [id number] Memoria 14:00:00 14:00:00 Pre-Reg r Neurology 06 l [place] 2019-12-10 2019-12-10 Ambulatory nullFlavo MNA [id number] Memoria 14:00:00 14:00:00 Pre-Reg r Neurology 06 l [place] 2019-12-10 2019-12-10 Outpatient MHIE MHIE [id number] Memoria 09:00:00 09:00:00 06 l Yong 2019-12-10 2019-12-10 Outpatient MHIE MHIE [id number] Memoria 09:00:00 09:00:00 07 l Yong 2019-12-10 2019-12-10 Outpatient JERSEY JosueSCHER MISCHER [id number] 09:00:00 09:00:00 Piotr Pino Samuel 2019-09-20 2019-09-20 Emergency [facility] 1.2.468.378 [id number] Univers 12:46:41 16:25:00 Jayne Hassan 350.1.13.10 i ty of [place] 4.2.7.2.686 [facility] [phone] [facility] 08 Branch 2019-09-20 2019-09-20 Emergency X [facility] ERT [id number] Univers 12:46:41 16:25:00 JAYNE corona of [facility] 2019-09-20 2019-09-20 Emergency [facility] 1.2.285.023 [id number] 12:46:41 16:25:00 Jayne R Alma 350.1.13.10 [place] 4.[address] [place] [address] [id number] 2019-09-20 2019-09-20 Outpatient R MARKELL, [facility] [id number] Univers 13:00:00 13:00:00 GABINO corona [facility] 2019-09-18 2019-09-18 Outpatient R VICENTE [facility] [id number] Univers 19:00:00 19:00:00 ZANDER corona [facility] 2019-08-07 2019-08-07 Outpatient 3 [facility] JEANINE [id number] 13:10:00 13:10:00 [place] -[id number] [facility] 2019-04-02 2019-04-03 Outpatient nullFlavo MNA [id number] Memoria 14:30:00 04:59:59 r Neurology 05 [place] 2019-04-02 2019-04-03 Outpatient nullFlavo MNA [id number] Memoria 14:30:00 04:59:59 r Neurology 05 [place] 2019-04-02 2019-04-02 Outpatient KATIE Josue MHMISCHER [id number] 09:30:00 23:59:59 Piotr Anthony Samuel 2019-04-02 2019-04-02 Outpatient MHIE MHIE [id number] Memoria 09:30:00 09:30:00 05 [place] 2019-03-03 2019-03-03 Outpatient R III, [facility] [id number] Univers 15:40:00 16:31:06 NOE [facility] 2019-03-02 2019-03-02 Outpatient R GLO III, [facility] [id number] Univers 16:00:00 16:00:00 NOE [facility] 2019-02-21 2019-02-21 Outpatient R RAUL, [facility] [id number] Univers 11:50:00 23:59:00 GREGORY [facility] 2019-02-17 2019-02-17 Transition Margarette Gomez 1.2.840.114 [id number] Univers 00:00:00 00:00:00 of Care Ivett Gonzalez 350.1.13.10 it y of [place] 4.2.7.2.686 [facility] [id number] [address] 2019-02-17 2019-02-17 Transition Margarette Gomez 1.2.840.114 [id number] 00:00:00 00:00:00 of Care Ivett Gonzalez 350.1.13.10 [place] 4.2.7.2.[id number] [facility] 2019-02-14 2019-02-15 [facility] [place] [facility] 1.2.840.1 14 [id number] [facility] 19:37:01 10:35:00 Encounter DeuceTod hinton 350.1.13.10 ity of [place] 4.2.7.2.686 [place] [facility] [phone] [facility] [address] [place] 2019-02-14 2019-02-15 [facility] [place] [facility] 1.2.840.1 14 [id number] 19:37:01 10:35:00 Encounter DeuceTod hinton 350.1.13.10 [place] 4.2.7.2.686 [place] [id number] [facility] 2019-02-14 2019-02-14 Nurse Nurse, [facility] 1.2 .840.114 [id number] [facility] 19:13:52 19:30:10 Visit Unknown, Attending Health 350.1.13.10 ity of Surgical 4.2.7.2.686 [place] as Specialti [id number] [address] 2019-02-14 2019-02-14 Nurse Nurse, Karel [facility] 1.2.840.114 [id number] 19:13:52 19:30:10 Visit Urgent Care Health 350.1.13.10 Surgical 4.2.7.2.686 Specialti [id number] [address] 2019-01-31 2019-01-31 Urgent Sara Irwin [facility] 1.2.840.114 [id number] [facility] 11:25:08 11:40:08 Care Unknown, Attending Health 350.1.13.10 ity of Surgical 4.2.7.2.686 [place] as Specialti [id number] [facility] 370 [facility] 2019-01-31 2019-01-31 Urgent Dc [facility] 1.2.840.114 [id number] 11:25:08 11:40:08 Care [facility] 350.1.13.10 Surgical 4.2.7.2.686 Specialti [id number] es 370 Maria Elena 2019-01-31 2019-01-31 Orders Doctor SARA 1.2.840.114 [id number] [facility] 00:00:00 00:00:00 Only Unassigned, CALVIN 350.1.13.10 ity of [place] [facility] 4.2.7.2.686 Hunter as [id number] [address] 2019-01-31 2019-01-31 Orders Doctor SARA 1.2.840.114 [id number] 00:00:00 00:00:00 Only Unassigned, [place] 350.1.13.10 [place] [facility] 4.2.7.2.686 [id number] [facility] 2018-07-03 2018-07-04 Outpatient nullFlavo MNA [id number] Memoria 14:45:00 05:59:59 r Neurology 04 l [place] 2018-07-03 2018-07-04 Outpatient nullFlavo MNA [id number] Memoria 14:45:00 05:59:59 r Neurology 04 l [place] 2018-07-03 2018-07-03 Outpatient JERSEY JosueSCHLYNDA MISCHER [id number] 08:45:00 23:59:59 Piotr Sam Samuel 2018-07-03 2018-07-03 Ambulatory nullFlavo MNA [id number] Memoria 14:45:00 14:45:00 Pre-Reg r Neurology 03 l [place] Y[place] 2018-07-03 2018-07-03 Ambulatory nullFlavo MNA [id number] Memoria 14:45:00 14:45:00 Pre-Reg r Neurology 03 edilberto [place] 2018-07-03 2018-07-03 Outpatient MHIE MHIE [id number] Memoria 08:45:00 08:45:00 Sam edilberto [place] 2018-07-03 2018-07-03 Outpatient SHYLA JosueMISCHER MHMISCHER [id number] 08:45:00 08:45:00 Piotr Adarsh Samuel 2018-05-30 2018-05-30 Ambulatory nullFlavo MNA [id number] Memoria 21:45:00 21:45:00 Pre-Reg r Neurology 02 [place] 2018-05-30 2018-05-30 Ambulatory nullFlavo MNA [id number] Memoria 21:45:00 21:45:00 Pre-Reg r Neurology 02 [place] 2018-05-30 2018-05-30 Outpatient Jsoelo [facility] [id number] 15:45:00 15:45:00 Piotr Samuel 2018-05-22 2018-05-24 Phone nullFlavo MNA [id number] Memoria 21:49:00 05:59:59 Message r Neurology 01 [place] 2018-05-22 2018-05-24 Phone nullFlavo MNA [id number] Memoria 21:49:00 05:59:59 Message r Neurology 01 [place] 2018-05-22 2018-05-23 Outpatient [facility] [id number] 15:49:00 23:59:59 2018-05-22 2018-05-22 Ambulatory nullFlavo MNA [id number] Memoria 20:45:00 20:45:00 Pre-Reg r Neurology 01 [place] 2018-05-22 2018-05-22 Ambulatory nullFlavo MNA [id number] Memoria 20:45:00 20:45:00 Pre-Reg r Neurology 01 [place] 2018-05-22 2018-05-22 [id number] 14:45:00 14:45:00 Piotr Samuel 2018-05-13 2018-05-13 Ambulatory nullFlavo MNA [id number] Memoria 21:30:00 21:30:00 Pre-Reg r Neurology 00 [place] 2018-05-13 2018-05-13 Ambulatory nullFlavo MNA [id number] Memoria 21:30:00 21:30:00 Pre-Reg r Neurology 00 [place] 2018-05-13 2018-05-13 Outpatient Joselo [facility] [id number] 15:30:00 15:30:00 Piotr Samuel Results Test Description Test Time Test Comments Results Result Comments Source POCT GLUCOSE (AUTOMATED) 2022-12-03 16:34:03 Test Item Value Reference Range Interpretation Comme nts POCT GLU (test code = 9541686976) 160 mg/dL 70-110 H Lab Interpretation (test code = 55775-1) Abnormal [facility] GLUCOSE (AUTOMATED)2022-12-03 13:49:13 Test Item Value Reference Range Interpretation Comments POCT GLU (test code = 7597877451) 169 mg/dL 70-110 H Lab Interpretation (test code = Abnormal 15404-2) [facility] NorthwestFERRITIN [id number] 03:44:45 Test Item Value Reference Range Interpretation Comments FERRITIN (test code = 36.3 ng/mL 11.0-264.0 1177420093) CLARICE (test code = CLARICE) Biotin has been reported to cause a negative bias, interpret results relative to patient's use of biotin. Lab Interpretation (test Normal code = 05131-7) [facility] NorthwestIRON [id number] 03:16:25 Test Item Value Reference Range Interpretation Comments IRON (test code = 6946880397) 66 ug/dL 50-160 TIBC (test code = 6432884232) 364 ug/dL 250-410 % FE SAT (test code = 5899749622) 18 % 20-50 L Lab Interpretation (test code = Abnormal 92839-7) [facility] NorthwestTHYROID STIMULATING [id number] 02:24:38 Test Item Value Reference Range Interpretation Comments TSH (test code = 1.79 See_Comment Biotin has been 3877479269) reported to cau se a negative bias, interpret resul ts relative to pat ient's use of biotin. [Automated mess age] The system [employer] generated this result transmitted ref erence range: 0.45 - 4 .70 mIU/L. The refe rence range was not u sed to interpret this result as normal/abnor mal. Lab Interpretation (test Normal code = 48943-7) [facility] GLUCOSE (AUTOMATED)2022-12-03 01:21:53 Test Item Value Reference Range Interpretation Comments POCT GLU (test code = 8698907973) 124 mg/dL 70-110 H Lab Interpretation (test code = Abnormal 75144-2) [facility] NorthwestFREE [id number] 00:20:53 Test Item Value Reference Range Interpretation Comments FREE T3 (test code = 9354711454) 3.78 pg/mL 2.77-5.27 Lab Interpretation (test code = Normal 49544-3) [facility] NorthwestFREE [id number] 00:20:53 Test Item Value Reference Range Interpretation Comments FREE T4 (test code = 1.03 See_Comment [Autom ated message] 0584762258) The system [employer] generated this result transmitted ref erence range: 0.78 - 2 .20 ng/dL:. The ref erence range was not u sed to interpret this result as normal/abnor mal. Lab Interpretation (test Normal code = 54482-4) [facility] NorthwestLactic Acid Whole [id number] 23:27:42 Test Item Value Reference Range Interpretation Comments LACTIC ACID (test code = 1.18 mmol/L 0.50-2.20 8484913017) Lab Interpretation (test code = Normal 63218-4) [facility] NorthwestTROPONIN [id number] 20:44:44 Test Item Value Reference Range Interpretation Comments TROPONIN I (test code = 0.000 ng/mL <=0.034 2987598178) CLARICE (test code = CLARICE) Reference (Normal) [...] biotin. Lab Interpretation Normal (test code = 45618-0) [facility] NorthwestN-TERMINAL [id number] 20:41:46 Test Item Value Reference Range Interpretation Comments NT-proBNP (test code = 63 pg/mL <=125 6118674704) CLARICE (test code = CLARICE) Biotin has been reported to cause a negative bias, interpret results relative to patient's use of biotin. Lab Interpretation (test Normal code = 33650-1) [facility]. METABOLIC PANEL (41288)2022-12-02 20:33:07 Test Item Value Reference Range Interpretation Comments NA (test code = 138 mmol/L 135-145 2316865270) K (test code = 4.4 mmol/L 3.5-5.0 2861032325) CL (test code = 103 mmol/L 98-108 4697903172) CO2 TOTAL (test code = 26 mmol/L 23-31 8928302195) AGAP (test code = 9 2-16 2452887648) BUN (test code = 14 mg/dL 7-23 2914017184) GLUCOSE (test code = 178 mg/dL 70-110 H 5711375866) CREATININE (test code = 0.72 mg/dL 0.50-1.04 7744527673) TOTAL BILI (test code = 0.6 mg/dL 0.1-1.7 8513768784) CALCIUM (test code = 8.9 mg/dL 8.6-10.6 2754100297) T PROTEIN (test code = 5.9 g/dL 6.3-8.2 L 2356471476) ALBUMIN (test code = 3.7 g/dL 3.5-5.0 9768342240) ALK PHOS (test code = 90 U/L 34-122 7062530062) ALTv (test code = 27 U/L 5-35 1742-6) AST(SGOT) (test code = 27 U/L 13-40 6598764742) eGFR (test code = 80.3 mL/min/1.73m2 4366197184) CLARICE (test code = CLARICE) Association of [...] tests). Lab Interpretation Abnormal (test code = 85890-8) [facility] NorthwestLIPASE2023-07-02 20:32:27 Test Item Value Reference Range Interpretation Comments LIPASE (test code = 2458145792) 309 U/L 0-220 H Lab Interpretation (test code = Abnormal 13561-1) [facility] NorthwestACTIVATED PARTIAL THRMPLAS [id number] 20:06:22 Test Item Value Reference Range Interpretation Comments APTT Patient (test 26 See_Comment [Automat ed code = 3173-2) message] The system which generated this result transmitted reference range : 23 - 38 Seconds . The reference range was not used to interpr et this result as normal/abnormal . CLARICE (test code = CLARICE) The [facility] patient population mean normal value for aPTT is 30 seconds. Lab Interpretation Normal (test code = 95833-9) [facility] NorthwestPROTHROMBIN TIME / [id number] 20:03:41 Test Item Value Reference Range Interpretation [...] tions. Lab Interpretation (test Abnormal code = 81083-1) [facility] WITH [id number] 19:53:03 Test Item Value Reference Range Interpretation [...] RDW-SD (test code = 41.2 fL 39.0-49.9 66618-5) RDW-CV (test code = 13.2 % 12.0-15.5 788-0) PLT (test code = 182 See_Comment [Automated 777-3) message] The sy stem which generated this result transmitted reference range : 166 - 358 10*3/ ?L. The reference r alexus was not used to interpret this result as normal/abnormal . MPV (test code = 9.7 fL 9.5-12.9 76613-6) NRBC/100 WBC (test 0.0 See_Comment [Automat ed code = 3940316431) message] The system which generated this result transmitted reference range : 0.0 - 10.0 /100 WBCs. The refer ence range was not u sed to interpret th is result as normal/abnormal . NRBC x10^3 (test code See_Comment [Auto mated = 8146855039) message] The s ystem which generated this result transmitted reference range : 10*3/?L. The reference range was not used to interpret this result as normal/abnormal . GRAN MAT (NEUT) % 55.7 % (test code = 770-8) IMM GRAN % (test code 0.40 % = 9350777456) LYMPH % (test code = 31.6 % 736-9) MONO % (test code = 8.9 % 5905-5) EOS % (test code = 2.7 % 713-8) BASO % (test code = 0.7 % 706-2) GRAN MAT x10^3(ANC) 3.94 10*3/uL 1.88-7.09 (test code = 0240257712) IMM GRAN x10^3 (test 0.03 10*3/uL 0.00-0.06 code = 6344930514) LYMPH x10^3 (test code 2.24 10*3/uL 1.32-3.29 = 731-0) MONO x10^3 (test code 0.63 10*3/uL 0.33-0.92 = 742-7) EOS x10^3 (test code = 0.19 10*3/uL 0.03-0.39 711-2) BASO x10^3 (test code 0.05 10*3/uL 0.01-0.07 = 704-7) Lab Interpretation Abnormal (test code = 46652-0) [facility] GLUCOSE (AUTOMATED)2022-12-02 19:00:52 Test Item Value Reference Range Interpretation Comments POCT GLU (test code = 5970000939) 213 mg/dL 70-110 H Lab Interpretation (test code = Abnormal 18307-6) [facility] GLUCOSE (AUTOMATED)2022-11-05 16:11:13 Test Item Value Reference Range Interpretation Comments POCT GLU (test code = 3558414825) 358 mg/dL 70-110 H Lab Interpretation (test code = Abnormal 04056-5) [facility] GLUCOSE (AUTOMATED)2022-11-05 12:44:59 Test Item Value Reference Range Interpretation Comments POCT GLU (test code = 7041587488) 229 mg/dL 70-110 H Lab Interpretation (test code = Abnormal 00274-1) [facility] GLUCOSE (AUTOMATED)2022-11-05 00:55:07 Test Item Value Reference Range Interpretation Comments POCT GLU (test code = 1541097449) 253 mg/dL 70-110 H Lab Interpretation (test code = Abnormal 97685-8) [facility] GLUCOSE (AUTOMATED)2022-11-04 22:38:35 Test Item Value Reference Range Interpretation Comments POCT GLU (test code = 2842648069) 206 mg/dL 70-110 H Lab Interpretation (test code = Abnormal 50895-9) [facility] GLUCOSE (AUTOMATED)2022-11-04 16:57:57 Test Item Value Reference Range Interpretation Comments POCT GLU (test code = 8296966225) 200 mg/dL 70-110 H Lab Interpretation (test code = Abnormal 43433-0) [facility] GLUCOSE (AUTOMATED)2022-11-04 13:13:50 Test Item Value Reference Range Interpretation Comments POCT GLU (test code = 0480752490) 203 mg/dL 70-110 H Lab Interpretation (test code = Abnormal 71304-1) [facility] NorthwestAMMONIA, [id number] 10:59:51 Test Item Value Reference Range Interpretation Comments AMMONIA (test code = 9426458154) 9-33 L Lab Interpretation (test code = Abnormal 97977-2) [facility] GLUCOSE (AUTOMATED)2022-11-04 01:02:48 Test Item Value Reference Range Interpretation Comments POCT GLU (test code = 9627685084) 288 mg/dL 70-110 H Lab Interpretation (test code = Abnormal 44440-9) [facility] GLUCOSE (AUTOMATED)2022-11-03 22:13:20 Test Item Value Reference Range Interpretation Comments POCT GLU (test code = 3980065454) 184 mg/dL 70-110 H Lab Interpretation (test code = Abnormal 56725-1) [facility] GLUCOSE (AUTOMATED)2022-11-03 17:08:39 Test Item Value Reference Range Interpretation Comments POCT GLU (test code = 6252471092) 180 mg/dL 70-110 H Lab Interpretation (test code = Abnormal 94947-1) [facility] NorthwestHEPATIC FUNCTION PANEL (12562) (ALB,T.PRO,BILI T,BU/BC,ALT,AST,ALK PHOS)2022-11-03 15:50:38 Test Item Value Reference Range Interpretation Comments TOTAL BILI (test code = 0129922888) 0.3 mg/dL 0.1-1.1 BILI UNCON (test code = 1740021815) 0.1 mg/dL 0.1-1.1 BILI CONJ (test code = 9316248252) 0.0 mg/dL 0.0-0.3 T PROTEIN (test code = 6235232898) 6.2 g/dL 6.3-8.2 L ALBUMIN (test code = 8056502455) 4.0 g/dL 3.5-5.0 ALK PHOS (test code = 1545431104) 139 U/L 34-122 H ALTv (test code = 1742-6) 22 U/L 5-35 AST(SGOT) (test code = 4779826145) 23 U/L 13-40 Lab Interpretation (test code = Abnormal 45976-4) [facility] [id number] 14:38:52 Test Item Value Reference Range Interpretation Comments IRON (test code = 5537804432) 62 ug/dL 50-160 TIBC (test code = 5778618076) 393 ug/dL 250-410 % FE SAT (test code = 2132034802) 16 % 20-50 L Lab Interpretation (test code = Abnormal 80927-9) [facility] GLUCOSE (AUTOMATED)2022-11-03 13:28:51 Test Item Value Reference Range Interpretation Comments POCT GLU (test code = 5078496629) 142 mg/dL 70-110 H Lab Interpretation (test code = Abnormal 99555-7) [facility] GLUCOSE (AUTOMATED)2022-11-03 02:34:58 Test Item Value Reference Range Interpretation Comments POCT GLU (test code = 3349380000) 198 mg/dL 70-110 H Lab Interpretation (test code = Abnormal 06760-9) [facility] GLUCOSE (AUTOMATED)2022-11-02 23:08:06 Test Item Value Reference Range Interpretation Comments POCT GLU (test code = 2307654553) 160 mg/dL 70-110 H Lab Interpretation (test code = Abnormal 21262-3) [facility] GLUCOSE (AUTOMATED)2022-11-02 17:29:22 Test Item Value Reference Range Interpretation Comments POCT GLU (test code = 0270433275) 103 mg/dL 70-110 Lab Interpretation (test code = Normal 01096-3) [facility]PO[facility]2022-11-02 15:12:05 Test Item Value Reference Range Interpretation Comments POCT GLU (test code = 6762201035) 122 mg/dL 70-110 H Lab Interpretation (test code = Abnormal 89427-0) [facility] NorthwestGLYCOSYLATED HEMOGLOBIN (A1C)2022-11-02 03:31:19 Test Item Value Reference Range Interpretation Comments HGB A1C (test code = 8.4 % 4.0-5.7 H 4548-4) CLARICE (test code = CLARICE) Reference RangesNormal: <5.7%Prediabetes: 5.7 - 6.4%Diabetes: > 6.5% Lab Interpretation (test Abnormal code = 73877-7) [facility] NorthwestTROPONIN [id number] 20:01:06 Test Item Value Reference Range Interpretation Comments TROPONIN I (test code = 0.006 ng/mL <=0.034 9128858584) CLARICE (test code = CLARICE) Reference (Normal) [...] biotin. Lab Interpretation Normal (test code = 66639-1) [facility] NorthwestETHANOL2023-06-01 19:43:35 ALCOHOL<10mg/dL11/01/2022 2:43 PM [facility]<10 Hriroqxr80-252 Toxic>100 Depression of CLINICAL NURSE MANAGER>400 Fatalities ReportedUnThe [facility] CampusCOMP. METABOLIC PANEL (44092) 2022-11-01 19:42:24 Test Item Value Reference Range Interpretation Comments NA (test code = 140 mmol/L 135-145 4041266034) K (test code = 4.1 mmol/L 3.5-5.0 5092752979) CL (test code = 104 mmol/L 98-108 2856661033) CO2 TOTAL (test code = 27 mmol/L 23-31 5116436402) AGAP (test code = 9 2-16 6200351695) BUN (test code = 15 mg/dL 7-23 9200965248) GLUCOSE (test code = 126 mg/dL 70-110 H 0311274918) CREATININE (test code = 0.69 mg/dL 0.50-1.04 4891098457) TOTAL BILI (test code = 0.3 mg/dL 0.1-1.9 8493894270) CALCIUM (test code = 8.8 mg/dL 8.6-10.6 3071847974) T PROTEIN (test code = 6.3 g/dL 6.3-8.2 2791147288) ALBUMIN (test code = 3.9 g/dL 3.5-5.0 4604524731) ALK PHOS (test code = 136 U/L 34-122 H 0593316274) ALTv (test code = 22 U/L 5-35 1742-6) AST(SGOT) (test code = 22 U/L 13-40 5139818358) eGFR (test code = 84.4 mL/min/1.73m2 2738419019) CLARICE (test code = CLARICE) Association of [...] tests). Lab Interpretation Abnormal (test code = 01411-0) [facility] NorthwestCREATINE [id number] 19:42:24 Test Item Value Reference Range Interpretation Comments CK (test code = 4730283539) 103 U/L 33-194 Lab Interpretation (test code = Normal 05207-6) [facility] NorthwestCB WITH [id number] 19:29:23 Test Item Value Reference Range Interpretation Comments WBC (test code = 6.85 See_Comment [Automated 5890-2) message] The sy stem which generated this result transmitted reference range : 4.30 - 11.10 10*3/?L. The reference range was not used to interpret this result as normal/abnormal . RBC (test code = 4.00 See_Comment [Automated 292-8) message] The sy stem which generated this [...] RDW-SD (test code = 41.8 fL 39.0-49.9 13190-0) RDW-CV (test code = 13.3 % 12.0-15.5 788-0) PLT (test code = 194 See_Comment [Automated 767-3) message] The sy stem which generated this result transmitted reference range : 166 - 358 10*3/ ?L. The reference r alexus was not used to interpret this result as normal/abnormal . MPV (test code = 10.0 fL 9.5-12.9 42707-0) NRBC/100 WBC (test 0.0 See_Comment [Automat ed code = 1316519882) message] The system which generated this result transmitted reference range : 0.0 - 10.0 /100 WBCs. The refer ence range was not u sed to interpret th is result as normal/abnormal . NRBC x10^3 (test code See_Comment [Auto mated = 2673046290) message] The s ystem which generated this result transmitted reference range : 10*3/?L. The reference range was not used to interpret this result as normal/abnormal . GRAN MAT (NEUT) % 55.0 % (test code = 770-8) IMM GRAN % (test code 0.70 % = 3465133583) LYMPH % (test code = 28.6 % 736-9) MONO % (test code = 10.9 % 5905-5) EOS % (test code = 3.9 % 713-8) BASO % (test code = 0.9 % 706-2) GRAN MAT x10^3(ANC) 3.76 10*3/uL 1.88-7.09 (test code = 5746010626) IMM GRAN x10^3 (test 0.05 10*3/uL 0.00-0.06 code = 3623606880) LYMPH x10^3 (test code 1.96 10*3/uL 1.32-3.29 = 731-0) MONO x10^3 (test code 0.75 10*3/uL 0.33-0.92 = 742-7) EOS x10^3 (test code = 0.27 10*3/uL 0.03-0.39 711-2) BASO x10^3 (test code 0.06 10*3/uL 0.01-0.07 = 704-7) Lab Interpretation Abnormal (test code = 58344-5) [facility] GLUCOSE (AUTOMATED)2022-11-01 19:25:25 Test Item Value Reference Range Interpretation Comments POCT GLU (test code = 2716959927) 146 mg/dL 70-110 H Lab Interpretation (test code = Abnormal 77799-2) [facility] NorthwestTroponin I - Code [id number] 06:14:08 Test Item Value Reference Range Interpretation Comments TROPONIN I (test code = 0.002 ng/mL <=0.034 6314304616) CLARICE (test code = CLARICE) Reference (Normal) [...] biotin. Lab Interpretation Normal (test code = 92625-2) [facility] (NA, K, CL, CO2, Glucose, BUN, Creatinine, CA) - Code [id number] 06:02:29 Test Item Value Reference Range Interpretation Comments NA (test code = 136 mmol/L 135-145 2847498328) K (test code = 4.2 mmol/L 3.5-5.0 3046433522) CL (test code = 99 mmol/L 98-108 0427940263) CO2 TOTAL (test code = 26 mmol/L 23-31 2832469586) AGAP (test code = 11 2-16 9956649384) BUN (test code = 19 mg/dL 7-23 4300192442) GLUCOSE (test code = 203 mg/dL 70-110 H 1431954736) CREATININE (test code = 0.69 mg/dL 0.50-1.04 7559104257) CALCIUM (test code = 9.2 mg/dL 8.6-10.6 8068388243) eGFR (test code = 84.4 mL/min/1.73m2 0522591178) CLARICE (test code = CLARICE) Association of [...] tests). Lab Interpretation Abnormal (test code = 38664-8) [facility] NorthwestaPTT - Code [id number] 05:59:27 Test Item Value Reference Range Interpretation Comments APTT Patient (test 26 See_Comment [Automat ed code = 3173-2) message] The system which generated this result transmitted reference range : 23 - 38 Seconds . The reference range was not used to interpr et this result as normal/abnormal . CLARICE (test code = CLARICE) The [facility] patient population mean normal value for aPTT is 30 seconds. Lab Interpretation Normal (test code = 50879-8) [facility] NorthwestProthrombin Time / INR - Code [id number] 05:57:24 Test Item Value Reference Range Interpretation [...] tions. Lab Interpretation (test Normal code = 07599-9) [facility] NorthwestPOCT GLUCOSE (AUTOMATED)2022-09-08 05:53:10 Test Item Value Reference Range Interpretation Comments POCT GLU (test code = 5346411899) 210 mg/dL 70-110 H Lab Interpretation (test code = Abnormal 99500-0) [facility] without Diff - Code [id number] 05:49:48 Test Item Value Reference Range Interpretation Comments WBC (test code = 7.66 See_Comment [Automated message] The 6690-2) system which [employer] nerated this result tra nsmitted reference range : 4.30 - 11.10 10*3/?L. The reference range was not used to interpr et this result as normal/abnormal . RBC (test code = 4.63 See_Comment [Automated message] The 789-8) system which [employer] nerated this result tra nsmitted reference range [...] See_Comment [Automated message] The 777-3) system which [employer] nerated this result tra nsmitted reference range : 166 - 358 10*3/?L. Th e reference range was not used to interpr et this result as normal/abnormal . MPV (test code = 9.9 fL 9.5-12.9 50300-9) RDW-CV (test code = 13.5 % 12.0-15.5 788-0) RDW-SD (test code = 41.8 fL 39.0-49.9 55276-0) NRBC x10^3 (test See_Comment [Automated message] The code = 5832677963) system [facility] generated this result tra nsmitted reference range : 10*3/?L. The reference r alexus was not used to int erpret this result as normal/abnormal . NRBC/100 WBC (test 0.0 See_Comment [Automat ed message] The code = 3722531728) system [facility] generated this result tra nsmitted reference range : 0.0 - 10.0 /100 WBCs. The reference range was not used to interpr et this result as normal/abnormal . IPF % (test code = 9826894400) [facility] GLUCOSE (AUTOMATED)2022-01-16 17:47:00 Test Item Value Reference Range Interpretation Comments POCT GLU (test code = 6714194499) 258 mg/dL 70-110 H Lab Interpretation (test code = Abnormal 97805-4) [facility] GLUCOSE (AUTOMATED)2022-01-16 13:54:45 Test Item Value Reference Range Interpretation Comments POCT GLU (test code = 5798565471) 171 mg/dL 70-110 H Lab Interpretation (test code = Abnormal 77486-1) [facility] GLUCOSE (AUTOMATED)2022-01-16 01:32:03 Test Item Value Reference Range Interpretation Comments POCT GLU (test code = 5853800432) 232 mg/dL 70-110 H Lab Interpretation (test code = Abnormal 44240-4) [facility] GLUCOSE (AUTOMATED)2022-01-15 16:47:52 Test Item Value Reference Range Interpretation Comments POCT GLU (test code = 1413110878) 263 mg/dL 70-110 H Lab Interpretation (test code = Abnormal 57468-4) [facility] NorthwestTransthoracic echo (TTE)2021-09-23 18:23:20 Test Item Value Reference Range Interpretation Comments LVOT stroke volume (test 74.90 cm3 code = 1790396960) EF(Teich) (test code = 61.80 % 7537158771) LVIDD (test code = 4.90 cm 3434342397) LVIDS (test code = 3.30 cm 5190760666) IVS (test code = 1.01 cm 0948256957) LVPWD (test code = 1.02 cm 9844567679) LVOT diameter (test code 1.91 cm = 7189223869) FS (test code = 33 % 5997251712) MV Peak E Vamsi (test code 94.6 cm/s = 5628357519) MV Peak A Vamsi (test code 147.7 cm/s = 5014486824) E/A ratio (test code = ratio 4871364650) E wave decelartion time 0.34 s (test code = 9309529539) LA Volume Index (BP) 28.4 mL/m2 (test code = 0323460840) LA volume (BP) (test code 51.8 mL = 4258345270) LVOT peak vamsi (test code 123.1 cm/s = 3525963114) LVOT mn grad (test code = mmHg 8775450520) Left Ventricular Cardiac 4.8 L/min Output (test code = 8571678) LA size (test code = 2.30 cm 6701301408) LAV(MOD-sp2) (test code = 46.40 mL 6682390232) LAV(MOD-sp4) (test code = 57.10 mL 6778662455) Tapse (test code = 2.6 cm 8558122932) Ao peak vamsi (test code = 127.6 cm/s 6927655849) AV LVOT peak gradient mmHg (test code = 5254819828) LVOT peak VTI (test code 26.2 cm = 5103460997) AV area peak vamsi (test 2.8 cm2 code = 6332732601) Aortic HR (test code = BPM 3773660557) LV V1 mean (test code = 80.10 cm/s 8714508902) Ao max PG (test code = 6.50 mm[Hg] 4069234873) MV Prop V (test code = 62.10 cm/s 0517020305) TR Peak Vamsi (test code = 238.9 cm/s 3196176217) Triscuspid Valve mmHg Regurgitation Peak Gradient (test code = 6548632308) Ao root annulus (test 3.4 cm code = 7901694080) Ao root diam (test code = 3.40 cm 7178509368) IVC Diam Exp(MM) (test 1.68 cm code = 6270766548) IVC Diam Ins(MM) (test 1.02 cm code = 3429880196) AV peak gradient (test mmHg code = 0749031735) Aortic root (test code = 3.4 cm 3964422545) PW (test code = 1.02 cm 0.6-1.5 2388134917) EF - 2D (test code = 61.80 % 57686341) Interventricular Septum 1.01 cm Diastolic Thickness by 2D (test code = 6045889) Radiology Study observation (narrative) (test code = 70898-8) CLARICE (test code = CLARICE) ?Left?Ventricle: Left [...] (75.3 kg) 1.86 sq meters 132/78 67 [facility] GLUCOSE (AUTOMATED)2021-09-23 16:38:56 Test Item Value Reference Range Interpretation Comments POCT GLU (test code = 6409499760) 146 mg/dL 70-110 H Lab Interpretation (test code = Abnormal 04980-9) [facility] GLUCOSE (AUTOMATED)2021-09-23 13:26:11 Test Item Value Reference Range Interpretation Comments POCT GLU (test code = 6672161798) 158 mg/dL 70-110 H Lab Interpretation (test code = Abnormal 74518-5) [facility] GLUCOSE (AUTOMATED)2021-09-23 01:44:45 Test Item Value Reference Range Interpretation Comments POCT GLU (test code = 4824830542) 129 mg/dL 70-110 H Lab Interpretation (test code = Abnormal 45028-0) [facility] GLUCOSE (AUTOMATED)2021-09-22 21:12:38 Test Item Value Reference Range Interpretation Comments POCT GLU (test code = 4313620274) 146 mg/dL 70-110 H Lab Interpretation (test code = Abnormal 05990-7) [facility] GLUCOSE (AUTOMATED)2021-09-22 16:40:51 Test Item Value Reference Range Interpretation Comments POCT GLU (test code = 3823696585) 197 mg/dL 70-110 H Lab Interpretation (test code = Abnormal 63354-1) [facility] NorthwestTR[facility]IN [id number] 10:44:58 Test Item Value Reference Interpretation Comments Range TROPONIN I (test 0.018 ng/mL See_Comment [Automated code = 2623263646) message] The system which generated this result [...] biotin. Lab Interpretation Normal (test code = 05490-0) [facility] NorthwestN-TERMINAL [id number] 10:41:16 Test Item Value Reference Range Interpretation Comments NT-proBNP (test code 94 pg/mL See_Comment [Autom ated = 0734561587) message] The system which generated this result transmitted reference range : <=125. The reference range was not used to interpret this result as normal/abnormal . CLARICE (test code = CLARICE) Biotin has been reported to cause a negative bias, interpret results relative to patient's use of biotin. Lab Interpretation Normal (test code = 00820-1) [facility] ([id number][facility]2021-09-22 10:31:56 Test Item Value Reference Range Interpretation Comments NA (test code = 136 mmol/L 135-145 3184200915) K (test code = 4.0 mmol/L 3.5-5.0 9172339662) CL (test code = 102 mmol/L 98-108 7100115380) CO2 TOTAL (test code = 23 mmol/L 23-31 6606346727) AGAP (test code = 2-16 0233471884) BUN (test code = 17 mg/dL 7-23 0234640098) GLUCOSE (test code = 179 mg/dL 70-110 H 9494155822) CREATININE (test code = 0.58 mg/dL 0.50-1.04 9269415863) TOTAL BILI (test code = 0.5 mg/dL 0.1-1.7 3711841556) CALCIUM (test code = 8.4 mg/dL 8.6-10.6 L 3265692566) T PROTEIN (test code = 6.7 g/dL 6.3-8.2 1783481327) ALBUMIN (test code = 4.3 g/dL 3.5-5.0 0792863537) ALK PHOS (test code = 185 U/L 34-122 H 6625835169) ALTv (test code = 18 U/L 5-35 1742-6) AST(SGOT) (test code = 20 U/L 13-40 5821214972) eGFR (test code = mL/min/1.73m2 7580903923) CLARICE (test code = CLARICE) Association of [...] tests). Lab Interpretation Abnormal (test code = 49269-8) [facility] THRM[facility]AS [id number] 10:15:14 Test Item Value Reference Range Interpretation Comments APTT Patient (test See_Comment [Automat ed code = 3173-2) message] The system which generated this result transmitted reference range : 23 - 38 Seconds . The reference range was not used to interpr et this result as normal/abnormal . CLARICE (test code = CLARICE) The [facility] patient population mean normal value for aPTT is 30 seconds. Lab Interpretation Normal (test code = 04004-3) [facility] / [id number] 10:13:13 Test Item Value Reference Range Interpretation [...] tions. Lab Interpretation (test Normal code = 49172-2) [facility] WITH [id number] 09:53:12 Test Item Value Reference Range Interpretation Comments WBC (test code = See_Comment [Automated 3690-2) message] The sy stem which generated this result transmitted reference range : 4.30 - 11.10 10*3/?L. The reference range was not used to interpret this result as normal/abnormal . RBC (test code = See_Comment [Automated 159-8) message] The sy stem which generated this [...] RDW-SD (test code = 41.1 fL 39.0-49.9 15379-6) RDW-CV (test code = 13.2 % 12.0-15.5 788-0) PLT (test code = See_Comment [Automated 777-3) message] The sy stem which generated this result transmitted reference range : 166 - 358 10*3/ ?L. The reference r alexus was not used to interpret this result as normal/abnormal . MPV (test code = 9.7 fL 9.5-12.9 26677-2) NRBC/100 WBC (test See_Comment [Automat ed code = 2169154581) message] The system which generated this result transmitted reference range : 0.0 - 10.0 /100 WBCs. The refer ence range was not u sed to interpret th is result as normal/abnormal . NRBC x10^3 (test code <0.01 See_Comment [Auto mated = 1999328919) message] The s ystem which generated this result transmitted reference range : 10*3/?L. The reference range was not used to interpret this result as normal/abnormal . GRAN MAT (NEUT) % 62.5 % (test code = 770-8) IMM GRAN % (test code 0.60 % = 4818161358) LYMPH % (test code = 23.9 % 736-9) MONO % (test code = 10.6 % 5905-5) EOS % (test code = 1.7 % 713-8) BASO % (test code = 0.7 % 706-2) GRAN MAT x10^3(ANC) 6.52 10*3/uL 1.88-7.09 (test code = 9214242979) IMM GRAN x10^3 (test 0.06 10*3/uL 0.00-0.06 code = 9901987048) LYMPH x10^3 (test code 2.49 10*3/uL 1.32-3.29 = 731-0) MONO x10^3 (test code 1.11 10*3/uL 0.33-0.92 H = 742-7) EOS x10^3 (test code = 0.18 10*3/uL 0.03-0.39 711-2) BASO x10^3 (test code 0.07 10*3/uL 0.01-0.07 = 704-7) Lab Interpretation Abnormal (test code = 76129-4) [facility] GLUCOSE (AUTOMATED)2021-01-24 16:46:38 Test Item Value Reference Range Interpretation Comments POCT GLU (test code = 9799469646) 224 mg/dL 70-110 H Lab Interpretation (test code = Abnormal 36409-8) [facility] GLUCOSE (AUTOMATED)2021-01-24 16:46:38 Test Item Value Reference Range Interpretation Comments POCT GLU (test code = 5590961299) 224 mg/dL 70-110 H Lab Interpretation (test code = Abnormal 05920-5) [facility] WITH [id number] 15:36:26 Test Item Value Reference Range Interpretation Comments WBC (test code = See_Comment [Automated message] 6690-2) The system [employer] generated this result transmitted ref erence range: 4.30 - 1 1.10 10*3/?L. The re ference range was not u sed to interpret this result as normal/abnor mal. RBC (test code = See_Comment [Automated message] 789-8) The system [employer] generated this result transmitted ref erence range: [...] RDW-SD (test code 42.4 fL 39.0-49.9 = 67052-7) RDW-CV (test code 13.2 % 12.0-15.5 = 788-0) PLT (test code = See_Comment [Automated message] 777-3) The system whic h generated this result transmitted ref erence range: 166 - 35 8 10*3/?L. The re ference range was not u sed to interpret this result as normal/abnor mal. MPV (test code = 10.0 fL 9.5-12.9 43288-1) NRBC/100 WBC (test See_Comment [Automat ed message] code = 4218773199) The syste m which generated this result transmitted ref erence range: 0.0 - 10 .0 /100 WBCs. The refer ence range was not u sed to interpret this result as normal/abnor mal. NRBC x10^3 (test <0.01 See_Comment [Automated message] code = 2459953700) The syste m which generated this result transmitted ref erence range: 10*3/?L. The reference range was not used to interpr et this result as normal/abnormal . GRAN MAT (NEUT) % 55.6 % (test code = 770-8) IMM GRAN % (test 0.60 % code = 6949277253) LYMPH % (test code 30.0 % = 736-9) MONO % (test code 10.3 % = 5905-5) EOS % (test code = 2.8 % 713-8) BASO % (test code 0.7 % = 706-2) GRAN MAT 3.70 10*3/uL 1.88-7.09 x10^3(ANC) (test code = 2435559903) IMM GRAN x10^3 0.04 10*3/uL 0.00-0.06 (test code = 8630198106) LYMPH x10^3 (test 2.00 10*3/uL 1.32-3.29 code = 731-0) MONO x10^3 (test 0.69 10*3/uL 0.33-0.92 code = 742-7) EOS x10^3 (test 0.19 10*3/uL 0.03-0.39 code = 711-2) BASO x10^3 (test 0.05 10*3/uL 0.01-0.07 code = 704-7) [facility] WITH [id number] 15:36:26 Test Item Value Reference Range Interpretation Comments WBC (test code = See_Comment [Automated message] 4690-2) The system [employer] generated this result transmitted ref erence range: 4.30 - 1 1.10 10*3/?L. The re ference range was not u sed to interpret this result as normal/abnor mal. RBC (test code = See_Comment [Automated message] 649-8) The system [employer] generated this result transmitted ref erence range: [...] RDW-SD (test code 42.4 fL 39.0-49.9 = 93573-2) RDW-CV (test code 13.2 % 12.0-15.5 = 788-0) PLT (test code = See_Comment [Automated message] 857-3) The system [employer] generated this result transmitted ref erence range: 166 - 35 8 10*3/?L. The re ference range was not u sed to interpret this result as normal/abnor mal. MPV (test code = 10.0 fL 9.5-12.9 04946-4) NRBC/100 WBC (test See_Comment [Automat ed message] code = 0163325902) The [employer] which generated this result transmitted ref erence range: 0.0 - 10 .0 /100 WBCs. The refer ence range was not u sed to interpret this result as normal/abnor mal. NRBC x10^3 (test <0.01 See_Comment [Automated message] code = 5905303309) The syste m which generated this result transmitted ref erence range: 10*3/?L. The reference range was not used to interpr et this result as normal/abnormal . GRAN MAT (NEUT) % 55.6 % (test code = 770-8) IMM GRAN % (test 0.60 % code = 1368610430) LYMPH % (test code 30.0 % = 736-9) MONO % (test code 10.3 % = 5905-5) EOS % (test code = 2.8 % 713-8) BASO % (test code 0.7 % = 706-2) GRAN MAT 3.70 10*3/uL 1.88-7.09 x10^3(ANC) (test code = 2642749854) IMM GRAN x10^3 0.04 10*3/uL 0.00-0.06 (test code = 7615906611) LYMPH x10^3 (test 2.00 10*3/uL 1.32-3.29 code = 731-0) MONO x10^3 (test 0.69 10*3/uL 0.33-0.92 code = 742-7) EOS x10^3 (test 0.19 10*3/uL 0.03-0.39 code = 711-2) BASO x10^3 (test 0.05 10*3/uL 0.01-0.07 code = 704-7) [facility] GLUCOSE (AUTOMATED)2021-01-24 14:34:03 Test Item Value Reference Range Interpretation Comments POCT GLU (test code = 3358847512) 174 mg/dL 70-110 H Lab Interpretation (test code = Abnormal 46477-0) [facility] GLUCOSE (AUTOMATED)2021-01-24 14:34:03 Test Item Value Reference Range Interpretation Comments POCT GLU (test code = 2299098897) 174 mg/dL 70-110 H Lab Interpretation (test code = Abnormal 86111-2) [facility] 13:30:31 Test Item Value Reference Range Interpretation Comments APPEARANCE (test code Clear Clear = 8867208437) COLOR (test code = Yellow Yellow 9213916660) PH (test code = 4.8-8.0 7634400505) SP GRAVITY (test code 1.003-1.030 = 8047652513) GLU U QUAL (test code Normal Normal = 2780820368) BLOOD (test code = Negative Negative 7312087738) KETONES (test code = Negative Negative 2394897228) PROTEIN (test code = Negative Negative 2887-8) UROBILIN (test code = Normal Normal 2747982934) BILIRUBIN (test code = Negative Negative 6329678020) NITRITE (test code = Negative Negative 3756692580) LEUK JONAS (test code Negative Negative = 9770704243) RBC/HPF (test code = See_Comment [Autom ated message] 5989516280) The system [employer] generated this result transmitted ref erence range: 0 - 3 HP F. The reference range was not used to interpr et this result as normal/abnormal . WBC/HPF (test code = <1 See_Comment [Autom ated message] 3233590634) The system [employer] generated this result transmitted ref erence range: 0 - 5 HP F. The reference range was not used to interpr et this result as normal/abnormal . BACTERIA (test code = Negative Negative 7760427324) SQ EPITH (test code = <1 HPF 8664785437) [facility] 13:30:31 Test Item Value Reference Range Interpretation Comments APPEARANCE (test code Clear Clear = 7868916939) COLOR (test code = Yellow Yellow 3916559773) PH (test code = 4.8-8.0 2716702030) SP GRAVITY (test code 1.003-1.030 = 4087829053) GLU U QUAL (test code Normal Normal = 8504103709) BLOOD (test code = Negative Negative 6691591142) KETONES (test code = Negative Negative 2872492026) PROTEIN (test code = Negative Negative 2887-8) UROBILIN (test code = Normal Normal 9190140744) BILIRUBIN (test code = Negative Negative 2071901400) NITRITE (test code = Negative Negative 6380475560) LEUK JONAS (test code Negative Negative = 4803808940) RBC/HPF (test code = See_Comment [Autom ated message] 0357807425) The system [employer] generated this result transmitted ref erence range: 0 - 3 HP F. The reference range was not used to interpr et this result as normal/abnormal . WBC/HPF (test code = <1 See_Comment [Autom ated message] 8477251640) The system [employer] generated this result transmitted ref erence range: 0 - 5 HP F. The reference range was not used to interpr et this result as normal/abnormal . BACTERIA (test code = Negative Negative 4637524196) SQ EPITH (test code = <1 HPF 3715722771) [facility] GLUCOSE (AUTOMATED)2021-01-24 13:14:11 Test Item Value Reference Range Interpretation Comments POCT GLU (test code = 6177130891) 184 mg/dL 70-110 H Lab Interpretation (test code = Abnormal 47131-0) [facility] GLUCOSE (AUTOMATED)2021-01-24 13:14:11 Test Item Value Reference Range Interpretation Comments POCT GLU (test code = 1968434939) 184 mg/dL 70-110 H Lab Interpretation (test code = Abnormal 75103-7) [facility]2021-01-24 12:17:17 Test Item Value Reference Range Interpretation Comments HGB A1C (test code = 8.9 % 4.0-5.7 H 4548-4) CLARICE (test code = CLARICE) Reference RangesNormal: <5.7%Prediabetes: 5.7 - 6.4%Diabetes: > 6.5% Lab Interpretation (test Abnormal code = 80847-7) [facility]A1C[facility]2021-01-24 12:17:17 Test Item Value Reference Range Interpretation Comments HGB A1C (test code = 4548-4) 8.9 % 4.0-5.7 H CLARICE (test code = CLARICE) Lab Interpretation (test code = Abnormal 59336-0) [facility] (NA, K, CL, CO2, GLUCOSE, BUN, CREATININE, CA)2021-01-24 11:52:07 Test Item Value Reference Range Interpretation Comments NA (test code = 139 mmol/L 135-145 6828794812) K (test code = 4.0 mmol/L 3.5-5.0 0460809250) CL (test code = 103 mmol/L 98-108 3754833315) CO2 TOTAL (test code = 25 mmol/L 23-31 1734843568) AGAP (test code = 2-16 6840551344) BUN (test code = 14 mg/dL 7-23 9166609364) GLUCOSE (test code = 151 mg/dL 70-110 H 6833619170) CREATININE (test code = 0.70 mg/dL 0.50-1.04 3504145459) CALCIUM (test code = 9.7 mg/dL 8.6-10.6 8746059489) eGFR (test code = mL/min/1.73m2 5208879122) CLARICE (test code = CLARICE) Association of [...] tests). Lab Interpretation Abnormal (test code = 53692-1) [facility] METABOLIC PANEL (NA, K, CL, CO2, GLUCOSE, BUN, CREATININE, CA)2021-01-24 11:52:07 Test Item Value Reference Range Interpretation Comments NA (test code = 9371006890) 139 mmol/L 135-145 K (test code = 7692699568) 4.0 mmol/L 3.5-5.0 CL (test code = 0555904455) 103 mmol/L 98-108 CO2 TOTAL (test code = 1709823141) 25 mmol/L 23-31 AGAP (test code = 1601301076) 2-16 BUN (test code = 4747652594) 14 mg/dL 7-23 GLUCOSE (test code = 6814204896) 151 mg/dL 70-110 H CREATININE (test code = 0.70 mg/dL 0.50-1.04 7681506463) CALCIUM (test code = 2981782854) 9.7 mg/dL 8.6-10.6 eGFR (test code = 9002602668) mL/min/1.73m2 CLARICE (test code = CLARICE) Lab Interpretation (test code = Abnormal 69517-5) [facility] GLUCOSE (AUTOMATED)2021-01-23 21:32:29 Test Item Value Reference Range Interpretation Comments POCT GLU (test code = 2875383760) 111 mg/dL 70-110 H Lab Interpretation (test code = Abnormal 93557-2) [facility] GLUCOSE (AUTOMATED)2021-01-23 21:32:29 Test Item Value Reference Range Interpretation Comments POCT GLU (test code = 0986810299) 111 mg/dL 70-110 H Lab Interpretation (test code = Abnormal 97860-6) [facility] GLUCOSE (AUTOMATED)2021-01-23 16:53:41 Test Item Value Reference Range Interpretation Comments POCT GLU (test code = 5462368780) 190 mg/dL 70-110 H Lab Interpretation (test code = Abnormal 86042-6) [facility] GLUCOSE (AUTOMATED)2021-01-23 16:53:41 Test Item Value Reference Range Interpretation Comments POCT GLU (test code = 8452017477) 190 mg/dL 70-110 H Lab Interpretation (test code = Abnormal 97443-2) [facility] BRAIN WO [id number] 15:20:18 No acute intracranial abnormality. Preliminary Report [...] air cells or paranasal airsinuses. Bilateral pseudophakia. Vtmb, Radiant Results Inft User - 01/23/2021 10:21 [...] reviewed this study and agree with theabove report.[facility] BRAIN WO [id number] 15:20:18 No acute intracranial abnormality. Preliminary Report [...] air cells or paranasal airsinuses. Bilateral pseudophakia. Vtmb, Radiant Results Inft User - 01/23/2021 10:21 [...] reviewed this study and agree with theabove report.[facility] GLUCOSE (AUTOMATED)2021-01-23 13:03:33 Test Item Value Reference Range Interpretation Comments POCT GLU (test code = 0672781971) 177 mg/dL 70-110 H Lab Interpretation (test code = Abnormal 08931-3) [facility] GLUCOSE (AUTOMATED)2021-01-23 13:03:33 Test Item Value Reference Range Interpretation Comments POCT GLU (test code = 8947312887) 177 mg/dL 70-110 H Lab Interpretation (test code = Abnormal 77103-9) [facility] WITH [id number] 10:24:38 Test Item Value Reference Range Interpretation [...] RDW-SD (test code = 41.6 fL 39.0-49.9 51734-6) RDW-CV (test code = 13.3 % 12.0-15.5 788-0) PLT (test code = See_Comment L [Automated 777-3) message] The sy stem which generated this result transmitted reference range : 166 - 358 10*3/ ?L. The reference r alexus was not used to interpret this result as normal/abnormal . MPV (test code = 10.2 fL 9.5-12.9 82148-3) IPF % (test code = 2.7 % 1.3-7.7 Platelet count 6307770088) measured by fluorescence method. NRBC/100 WBC (test See_Comment [Automat ed code = 0990634305) message] The system which generated this result transmitted reference range : 0.0 - 10.0 /100 WBCs. The refer ence range was not u sed to interpret th is result as normal/abnormal . NRBC x10^3 (test code <0.01 See_Comment [Auto mated = 8742812450) message] The s ystem which generated this result transmitted reference range : 10*3/?L. The reference range was not used to interpret this result as normal/abnormal . GRAN MAT (NEUT) % 59.5 % (test code = 770-8) IMM GRAN % (test code 0.60 % = 3791233623) LYMPH % (test code = 27.3 % 736-9) MONO % (test code = 8.8 % 5905-5) EOS % (test code = 3.0 % 713-8) BASO % (test code = 0.8 % 706-2) GRAN MAT x10^3(ANC) 3.70 10*3/uL 1.88-7.09 (test code = 7202892684) IMM GRAN x10^3 (test 0.04 10*3/uL 0.00-0.06 code = 4730972976) LYMPH x10^3 (test code 1.70 10*3/uL 1.32-3.29 = 731-0) MONO x10^3 (test code 0.55 10*3/uL 0.33-0.92 = 742-7) EOS x10^3 (test code = 0.19 10*3/uL 0.03-0.39 711-2) BASO x10^3 (test code 0.05 10*3/uL 0.01-0.07 = 704-7) Lab Interpretation Abnormal (test code = 44107-0) [facility] WITH [id number] 10:24:38 Test Item Value Reference Range Interpretation Comments WBC (test code = See_Comment [Automated 0190-2) message] The sy stem which generated this result transmitted reference range : 4.30 - 11.10 10*3/?L. The reference range was not used to interpret this result as normal/abnormal . RBC (test code = See_Comment [Automated 845-8) message] The sy stem which generated this [...] RDW-SD (test code = 41.6 fL 39.0-49.9 05804-7) RDW-CV (test code = 13.3 % 12.0-15.5 788-0) PLT (test code = See_Comment L [Automated 777-3) message] The sy stem which generated this result transmitted reference range : 166 - 358 10*3/ ?L. The reference r alexus was not used to interpret this result as normal/abnormal . MPV (test code = 10.2 fL 9.5-12.9 60074-0) IPF % (test code = 2.7 % 1.3-7.7 6557480950) NRBC/100 WBC (test See_Comment [Automat ed code = 7182490827) message] The system which generated this result transmitted reference range : 0.0 - 10.0 /100 WBCs. The refer ence range was not u sed to interpret th is result as normal/abnormal . NRBC x10^3 (test code <0.01 See_Comment [Auto mated = 5785543915) message] The s ystem which generated this result transmitted reference range : 10*3/?L. The reference range was not used to interpret this result as normal/abnormal . GRAN MAT (NEUT) % 59.5 % (test code = 770-8) IMM GRAN % (test code 0.60 % = 8078755742) LYMPH % (test code = 27.3 % 736-9) MONO % (test code = 8.8 % 5905-5) EOS % (test code = 3.0 % 713-8) BASO % (test code = 0.8 % 706-2) GRAN MAT x10^3(ANC) 3.70 10*3/uL 1.88-7.09 (test code = 7143048319) IMM GRAN x10^3 (test 0.04 10*3/uL 0.00-0.06 code = 7458163598) LYMPH x10^3 (test code 1.70 10*3/uL 1.32-3.29 = 731-0) MONO x10^3 (test code 0.55 10*3/uL 0.33-0.92 = 742-7) EOS x10^3 (test code = 0.19 10*3/uL 0.03-0.39 711-2) BASO x10^3 (test code 0.05 10*3/uL 0.01-0.07 = 704-7) Lab Interpretation Abnormal (test code = 91978-8) [facility] METABOLIC PANEL (NA, K, CL, CO2, GLUCOSE, BUN, CREATININE, CA)2021-01-23 10:18:59 Test Item Value Reference Range Interpretation Comments NA (test code = 136 mmol/L 135-145 7324274770) K (test code = 4.5 mmol/L 3.5-5.0 0495231668) CL (test code = 105 mmol/L 98-108 4788240499) CO2 TOTAL (test code = 24 mmol/L 23-31 8029476124) AGAP (test code = 2-16 1132197709) BUN (test code = 12 mg/dL 7-23 6476074942) GLUCOSE (test code = 176 mg/dL 70-110 H 7313950824) CREATININE (test code = 0.65 mg/dL 0.50-1.04 7332865418) CALCIUM (test code = 9.2 mg/dL 8.6-10.6 2543811099) eGFR (test code = mL/min/1.73m2 3374671375) CLARICE (test code = CLARICE) Association of [...] tests). Lab Interpretation Abnormal (test code = 45486-2) [facility] METABOLIC PANEL (NA, K, CL, CO2, GLUCOSE, BUN, CREATININE, CA)2021-01-23 10:18:59 Test Item Value Reference Range Interpretation Comments NA (test code = 5022284962) 136 mmol/L 135-145 K (test code = 1123933855) 4.5 mmol/L 3.5-5.0 CL (test code = 1690275659) 105 mmol/L 98-108 CO2 TOTAL (test code = 3704477900) 24 mmol/L 23-31 AGAP (test code = 9495720713) 2-16 BUN (test code = 1797533069) 12 mg/dL 7-23 GLUCOSE (test code = 8225025007) 176 mg/dL 70-110 H CREATININE (test code = 0.65 mg/dL 0.50-1.04 4339436181) CALCIUM (test code = 2581687405) 9.2 mg/dL 8.6-10.6 eGFR (test code = 0871163189) mL/min/1.73m2 CLARICE (test code = CLARICE) Lab Interpretation (test code = Abnormal 05238-2) [facility] 01:32:46 Test Item Value Reference Range Interpretation Comments POCT GLU (test code = 5135949811) 140 mg/dL 70-110 H Lab Interpretation (test code = Abnormal 45486-7) [facility] GLUCOSE (AUTOMATED)2021-01-23 01:32:46 Test Item Value Reference Range Interpretation Comments POCT GLU (test code = 7054006772) 140 mg/dL 70-110 H Lab Interpretation (test code = Abnormal 22625-3) [facility] GLUCOSE (AUTOMATED)2021-01-22 21:40:24 Test Item Value Reference Range Interpretation Comments POCT GLU (test code = 3400602692) 139 mg/dL 70-110 H Lab Interpretation (test code = Abnormal 41740-5) [facility] GLUCOSE (AUTOMATED)2021-01-22 21:40:24 Test Item Value Reference Range Interpretation Comments POCT GLU (test code = 9283043958) 139 mg/dL 70-110 H Lab Interpretation (test code = Abnormal 03345-3) [facility] GLUCOSE (AUTOMATED)2021-01-22 18:00:29 Test Item Value Reference Range Interpretation Comments POCT GLU (test code = 6163881731) 216 mg/dL 70-110 H Lab Interpretation (test code = Abnormal 67608-6) [facility] GLUCOSE (AUTOMATED)2021-01-22 18:00:29 Test Item Value Reference Range Interpretation Comments POCT GLU (test code = 9686294213) 216 mg/dL 70-110 H Lab Interpretation (test code = Abnormal 04018-2) [facility] GLUCOSE (AUTOMATED)2021-01-22 13:28:29 Test Item Value Reference Range Interpretation Comments POCT GLU (test code = 8485499171) 200 mg/dL 70-110 H Lab Interpretation (test code = Abnormal 69513-4) [facility] GLUCOSE (AUTOMATED)2021-01-22 13:28:29 Test Item Value Reference Range Interpretation Comments POCT GLU (test code = 6959798946) 200 mg/dL 70-110 H Lab Interpretation (test code = Abnormal 18906-8) [facility] (NA, K, CL, CO2, GLUCOSE, BUN, CREATININE, CA)2021-01-22 09:27:44 Test Item Value Reference Range Interpretation Comments NA (test code = 137 mmol/L 135-145 8257968750) K (test code = 4.2 mmol/L 3.5-5.0 9687450148) CL (test code = 108 mmol/L 98-108 5642981832) CO2 TOTAL (test code = 26 mmol/L 23-31 6982499231) AGAP (test code = 2-16 2620043902) BUN (test code = 11 mg/dL 7-23 6085854727) GLUCOSE (test code = 161 mg/dL 70-110 H 8486682442) CREATININE (test code = 0.63 mg/dL 0.50-1.04 1509191520) CALCIUM (test code = 8.5 mg/dL 8.6-10.6 L 2917088426) eGFR (test code = mL/min/1.73m2 4412188395) CLARICE (test code = CLARICE) Association of [...] tests). Lab Interpretation Abnormal (test code = 23092-5) [facility] (NA, K, CL, CO2, GLUCOSE, BUN, CREATININE, CA)2021-01-22 09:27:44 Test Item Value Reference Range Interpretation Comments NA (test code = 0089815729) 137 mmol/L 135-145 K (test code = 5490676317) 4.2 mmol/L 3.5-5.0 CL (test code = 4947176945) 108 mmol/L 98-108 CO2 TOTAL (test code = 4396130978) 26 mmol/L 23-31 AGAP (test code = 2551076339) 2-16 BUN (test code = 3922917376) 11 mg/dL 7-23 GLUCOSE (test code = 1649284959) 161 mg/dL 70-110 H CREATININE (test code = 0.63 mg/dL 0.50-1.04 2804591850) CALCIUM (test code = 8219038896) 8.5 mg/dL 8.6-10.6 L eGFR (test code = 0322737008) mL/min/1.73m2 CLARICE (test code = CLARICE) Lab Interpretation (test code = Abnormal 54150-4) [facility] with [id number] 09:15:44 Test Item Value Reference Range Interpretation Comments WBC (test code = See_Comment [Automated 1490-2) message] The sy stem which generated this result transmitted reference range : 4.30 - 11.10 10*3/?L. The reference range was not used to interpret this result as normal/abnormal . RBC (test code = See_Comment L [Automated 409-8) message] The sy [...] RDW-SD (test code = 42.1 fL 39.0-49.9 23744-0) RDW-CV (test code = 13.4 % 12.0-15.5 788-0) PLT (test code = See_Comment [Automated 777-3) message] The sy stem which generated this result transmitted reference range : 166 - 358 10*3/ ?L. The reference r alexus was not used to interpret this result as normal/abnormal . MPV (test code = 9.4 fL 9.5-12.9 L 96689-1) NRBC/100 WBC (test See_Comment [Automat ed code = 3836138513) message] The system which generated this result transmitted reference range : 0.0 - 10.0 /100 WBCs. The refer ence range was not u sed to interpret th is result as normal/abnormal . NRBC x10^3 (test code <0.01 See_Comment [Auto mated = 3649535319) message] The s ystem which generated this result transmitted reference range : 10*3/?L. The reference range was not used to interpret this result as normal/abnormal . GRAN MAT (NEUT) % 52.5 % (test code = 770-8) IMM GRAN % (test code 0.60 % = 6496587168) LYMPH % (test code = 31.2 % 736-9) MONO % (test code = 11.2 % 5905-5) EOS % (test code = 3.5 % 713-8) BASO % (test code = 1.0 % 706-2) GRAN MAT x10^3(ANC) 2.58 10*3/uL 1.88-7.09 (test code = 2080342973) IMM GRAN x10^3 (test 0.03 10*3/uL 0.00-0.06 code = 3363285236) LYMPH x10^3 (test code 1.53 10*3/uL 1.32-3.29 = 731-0) MONO x10^3 (test code 0.55 10*3/uL 0.33-0.92 = 742-7) EOS x10^3 (test code = 0.17 10*3/uL 0.03-0.39 711-2) BASO x10^3 (test code 0.05 10*3/uL 0.01-0.07 = 704-7) Lab Interpretation Abnormal (test code = 43599-0) [facility] with Zugzmbmgckgx0690-36-04 09:15:44 Test Item Value Reference Range Interpretation [...] RDW-SD (test code = 42.1 fL 39.0-49.9 61862-9) RDW-CV (test code = 13.4 % 12.0-15.5 788-0) PLT (test code = See_Comment [Automated 777-3) message] The sy stem which generated this result transmitted reference range : 166 - 358 10*3/ ?L. The reference r alexus was not used to interpret this result as normal/abnormal . MPV (test code = 9.4 fL 9.5-12.9 L 49232-6) NRBC/100 WBC (test See_Comment [Automat ed code = 1672063995) message] The system which generated this result transmitted reference range : 0.0 - 10.0 /100 WBCs. The refer ence range was not u sed to interpret th is result as normal/abnormal . NRBC x10^3 (test code <0.01 See_Comment [Auto mated = 0730059700) message] The s ystem which generated this result transmitted reference range : 10*3/?L. The reference range was not used to interpret this result as normal/abnormal . GRAN MAT (NEUT) % 52.5 % (test code = 770-8) IMM GRAN % (test code 0.60 % = 9923311491) LYMPH % (test code = 31.2 % 736-9) MONO % (test code = 11.2 % 5905-5) EOS % (test code = 3.5 % 713-8) BASO % (test code = 1.0 % 706-2) GRAN MAT x10^3(ANC) 2.58 10*3/uL 1.88-7.09 (test code = 7334723335) IMM GRAN x10^3 (test 0.03 10*3/uL 0.00-0.06 code = 8344417031) LYMPH x10^3 (test code 1.53 10*3/uL 1.32-3.29 = 731-0) MONO x10^3 (test code 0.55 10*3/uL 0.33-0.92 = 742-7) EOS x10^3 (test code = 0.17 10*3/uL 0.03-0.39 711-2) BASO x10^3 (test code 0.05 10*3/uL 0.01-0.07 = 704-7) Lab Interpretation Abnormal (test code = 10023-6) [facility] GLUCOSE (AUTOMATED)2021-01-22 01:48:46 Test Item Value Reference Range Interpretation Comments POCT GLU (test code = 8910458031) 218 mg/dL 70-110 H Lab Interpretation (test code = Abnormal 10563-6) [facility] GLUCOSE (AUTOMATED)2021-01-22 01:48:46 Test Item Value Reference Range Interpretation Comments POCT GLU (test code = 2972316343) 218 mg/dL 70-110 H Lab Interpretation (test code = Abnormal 09135-3) [facility] [id number] 00:23:56No acute or adverse change compared to the prior exam. AFC: 14970.RL: 8228, I can be reached at [phone]. Ordering Physician: Carmen Brennan History: Shortness of [...] adverse change compared to the prior exam.AFC: 64514.RL: 8228, I can be reached at [phone]. [facility] 1 [id number] 00:23:56No acute or adverse change compared to the prior exam. AFC: 21080.RL: 8228, I can be reached at [phone]. Ordering Physician: Carmen Brennan History: Shortness of [...] adverse change compared to the prior exam.AFC: 79565.RL: 8228, I can be reached at [phone]. [facility] GLUCOSE (AUTOMATED)2021-01-21 22:25:03 Test Item Value Reference Range Interpretation Comments POCT GLU (test code = 8821871237) 104 mg/dL 70-110 Lab Interpretation (test code = Normal 90141-2) [facility] GLUCOSE (AUTOMATED)2021-01-21 22:25:03 Test Item Value Reference Range Interpretation Comments POCT GLU (test code = 9197181254) 186 mg/dL 70-110 H Lab Interpretation (test code = Abnormal 22244-4) [facility] GLUCOSE (AUTOMATED)2021-01-21 22:25:03 Test Item Value Reference Range Interpretation Comments POCT GLU (test code = 6580464827) 104 mg/dL 70-110 Lab Interpretation (test code = Normal 07898-2) [facility] GLUCOSE (AUTOMATED)2021-01-21 22:25:03 Test Item Value Reference Range Interpretation Comments POCT GLU (test code = 0816535134) 186 mg/dL 70-110 H Lab Interpretation (test code = Abnormal 12153-9) [facility] GLUCOSE (AUTOMATED)2021-01-21 22:25:02 Test Item Value Reference Range Interpretation Comments POCT GLU (test code = 3799907069) 81 mg/dL 70-110 Lab Interpretation (test code = Normal 67570-7) [facility] GLUCOSE (AUTOMATED)2021-01-21 22:25:02 Test Item Value Reference Range Interpretation Comments POCT GLU (test code = 8599039732) 81 mg/dL 70-110 Lab Interpretation (test code = Normal 43318-3) [facility] GLUCOSE (AUTOMATED)2021-01-21 22:24:57 Test Item Value Reference Range Interpretation Comments POCT GLU (test code = 3428783979) 205 mg/dL 70-110 H Lab Interpretation (test code = Abnormal 73431-8) [facility]2021-01-21 22:24:57 Test Item Value Reference Range Interpretation Comments POCT GLU (test code = 5256076786) 205 mg/dL 70-110 H Lab Interpretation (test code = Abnormal 61342-8) [facility] [id number] 16:24:55 No intracranial proximal large vessel occlusion. [...] ? COMPARISON: None. FINDINGS: CTA of the [place] reveals no intracranial proximal large [...] injected intravenously. COMPARISON: None.FINDINGS: CTA of the [place] reveals no intracranial proximal large [...] proximal large vessel occlusion.No significant extracranial s tenosis.[facility] [id number] 16:24:55 No intracranial proximal large vessel occlusion. [...] ? COMPARISON: None. FINDINGS: CTA of the [place] reveals no intracranial proximal large [...] injected intravenously. COMPARISON: None.FINDINGS: CTA of the [place] reveals no intracranial proximal large [...] proximal large vessel occlusion.No significant extracranial s tenosis.[facility] [id number] 16:24:55 No intracranial proximal large vessel occlusion. [...] ? COMPARISON: None. FINDINGS: CTA of the [place] reveals no intracranial proximal large [...] injected intravenously. COMPARISON: None.FINDINGS: CTA of the [place] reveals no intracranial proximal large [...] proximal large vessel occlusion.No significant extracranial s tenosis.[facility] [id number] 16:24:55 No intracranial proximal large vessel occlusion. [...] ? COMPARISON: None. FINDINGS: CTA of the [place] reveals no intracranial proximal large [...] injected intravenously. COMPARISON: None.FINDINGS: CTA of the [place] reveals no intracranial proximal large [...] proximal large vessel occlusion.No significant extracranial s tenosis.[facility] METABOLIC PANEL (NA, K, CL, CO2, GLUCOSE, BUN, CREATININE, CA)2021-01-21 15:03:17 Test Item Value Reference Range Interpretation Comments NA (test code = 137 mmol/L 135-145 3635954496) K (test code = 4.3 mmol/L 3.5-5.0 9523813576) CL (test code = 102 mmol/L 98-108 0539573039) CO2 TOTAL (test code 25 mmol/L 23-31 = 2650273750) AGAP (test code = 2-16 8260577051) BUN (test code = 15 mg/dL 7-23 8606689120) GLUCOSE (test code = 101 mg/dL 70-110 5624472820) CREATININE (test code 0.67 mg/dL 0.50-1.04 = 1106354886) CALCIUM (test code = 9.2 mg/dL 8.6-10.6 7238453061) eGFR (test code = mL/min/1.73m2 1586648714) CLARICE (test code = CLARICE) Association of [...] in imaging tests). [facility] METABOLIC PANEL (NA, K, CL, CO2, GLUCOSE, BUN, CREATININE, CA)2021-01-21 15:03:17 Test Item Value Reference Range Interpretation Comments NA (test code = 3378662699) 137 mmol/L 135-145 K (test code = 0000653709) 4.3 mmol/L 3.5-5.0 CL (test code = 8515459188) 102 mmol/L 98-108 CO2 TOTAL (test code = 3341684068) 25 mmol/L 23-31 AGAP (test code = 9710010357) 2-16 BUN (test code = 1503996145) 15 mg/dL 7-23 GLUCOSE (test code = 9631492763) 101 mg/dL 70-110 CREATININE (test code = 0.67 mg/dL 0.50-1.04 3738979727) CALCIUM (test code = 5312499430) 9.2 mg/dL 8.6-10.6 eGFR (test code = 1133695819) mL/min/1.73m2 CLARICE (test code = CLARICE) [facility] GLUCOSE (AUTOMATED)2021-01-21 13:20:02 Test Item Value Reference Range Interpretation Comments POCT GLU (test code = 2167161292) 224 mg/dL 70-110 H Lab Interpretation (test code = Abnormal 90773-3) [facility] GLUCOSE (AUTOMATED)2021-01-21 13:20:02 Test Item Value Reference Range Interpretation Comments POCT GLU (test code = 6472962854) 224 mg/dL 70-110 H Lab Interpretation (test code = Abnormal 32414-2) [facility] [id number] 12:28:29 Test Item Value Reference Range Interpretation Comments TSH (test code = See_Comment Biotin has been 5721180247) reported to cau se a negative bias, interpret resul ts relative to malou tate's use of biotin. [Automated mess age] The system Cirqle generated this result transmitted ref erence range: 0.45 - 4 .70 mIU/L. The refe rence range was not u sed to interpret this result as normal/abnor mal. Lab Interpretation (test Normal code = 15221-0) [facility] [id number] 12:28:29 Test Item Value Reference Range Interpretation Comments TSH (test code = See_Comment [Automated message] 8532394933) The system Cirqle generated this result transmitted ref erence range: 0.45 - 4 .70 mIU/L. The refe rence range was not u sed to interpret this result as normal/abnor mal. Lab Interpretation (test Normal code = 27872-8) [facility] Northwest[facility] Whole [id number] 09:09:36 Test Item Value Reference Range Interpretation Comments LACTIC ACID (test code = 2.13 mmol/L 0.50-2.20 0501704505) Lab Interpretation (test code = Normal 23465-2) [facility] NorthwestL[facility] Whole [id number] 09:09:36 Test Item Value Reference Range Interpretation Comments LACTIC ACID (test code = 2.13 mmol/L 0.50-2.20 9332872256) Lab Interpretation (test code = Normal 51891-9) [facility] COVID [id number] 02:31:30COVID DMT InterpretationInterpretation/Recommendations:Molecular NAAT Tests for Active [...] 1-2 weeks prior to antibody testing, any xwnraiqnIUOM-QmN-1 IgG antibody result is likely due to [...] COVID-19 testing the patient has had at [facility], including molecular NAAT testing (more commonly known as PCR testing and Rapid ID Now testing) and antibody testing. It does not take into account any testing that a patient has had outside of the [facility] medical record. [facility] LABORATORY SERVICESCOVID FrskxrtILPL-NdO-4 Rapid ID NOW (no units) ? ? Date ? Value ? 01/20/2021 ? Not Detected ? ? ? 09/20/2019 ? Not Detected ? [facility] SERVICESCorp[facility]LAB ONLY COVID [id number] 02:31:30COVID DMT InterpretationInterpretation/Recommendations:Molecular NAAT Tests for Active [...] COVID-19 testing the patient has had at [facility], including molecular NAAT testing (more commonly known as PCR testing and Rapid ID Now testing) and antibody testing. It does not take into account any testing that a patient has had outside of the [facility] medical record. [facility] LABORATORY SERVICESCOVID ExedwebRHHE-FaW-7 Rapid ID NOW (no units) ? ? Date ? Value ? 01/20/2021 ? Not Detected ? ? ? 09/20/2019 ? Not Detected ? [facility]ORAT[facility] SERVICESUnThe [facility]XR CHEST 1 [id number] 02:12:27Impression: No acute abnormalities evident. RL: 460 [...] noted to be status post cervical fusion. [facility], Radiant Results Inft User - 01/20/2021 9:13 PM CDT Ordering physician: SERGEY CHAPINHistory: Short of breathTechnique: Chest, single viewTechnical quality: AdequateComparison: September 20, 2019Findings: The lungs are clear. No pleural effusions are evident. Heart size isnormal. The superior mediastinal silhouette is unremarkable for age andprojection. There are degenerative changes of the shoulders and spine. Thepatient is again noted to be status post cervical fusion.IMPRESSIONImpression:No acute abnormalities evident.RL: 460 [facility] 1 [id number] 02:12:27Impression: No acute abnormalities evident. RL: 460 [...] 01/20/2021 9:13 PM CDT Ordering physician: SERGEY CHAPINHistory: Short of breathTechnique: Chest, single viewTechnical quality: AdequateComparison: September 20, 2019Findings: The lungs are clear. No pleural effusions are evident. Heart size isnormal. The superior mediastinal silhouette is unremarkable for age andprojection. There are degenerative changes of the shoulders and spine. Thepatient is again noted to be status post cervical fusion.IMPRESSIONImpression:No acute abnormalities evident.RL: 460 [facility]CT ABDOMEN PELVIS W [id number] 02:03:44Impression: 1. No prior studies available.2. Cholecystectomy [...] Moderate colonic fecal retention.RL: 460End of Report UnThe [facility] CampusCT ABDOMEN PELVIS W [id number] 02:03:44Impression: 1. No prior studies available.2. Cholecystectomy [...] Moderate colonic fecal retention.RL: 460[facility] [id number] 23:16:36No acute findings. HISTORY:Neuro deficit, acute, stroke suspected TECHNIQUE: Noncontrast head CT wasperformed. COMPARISON:None FINDINGS: The ventricles and sulci are appropriate for patient's age. There is no midline shift. The basal cisterns are preserved. No largevascular territory infarction, intracranial hemorrhage or mass effect isseen. The extracranial tissues demonstrate no acute findings. [facility], Radiant Results Inft User - 01/20/2021 6:17 PM CDTFormatting of this note might be different fromthe original.HISTORY:Neuro deficit, acute, stroke suspected TECHNIQUE: Noncontrast head CT was performed.COMPARISON:NoneFINDINGS:The ventricles and sulci are appropriate for patient's age.There is no midline shift. The basal cisterns are preserved. No largevascular territory infarction, intracranial hemorrhage or mass effect isseen.The extracranial tissues demonstrate no acute findings.IMPRESSIONNo acute findings.[facility] HEAD WO [id number] 23:16:36No acute findings. HISTORY:Neuro deficit, acute, stroke [...] extracranial tissues demonstrate no acute findings.IMPRESSIONNo acute findings.[facility] (ID NOW RAPID TESTING)2021-01-20 23:07:03 Test Item Value Reference Range Interpretation Comments SARS-CoV-2 Rapid ID NOW Not Detected Not Detected (test code = 35141-6) CLARICE (test code = CLARICE) ID NOW COVID-19 Assay is an isothermal nucleic acid amplification test intended for the qualitative detection of nucleic acid from SARS-CoV-2 viral RNA in nasopharyngeal (CLERICAL ASSISTANT) specimens. It is used under Emergency Use [...] indicated. Lab Interpretation Normal (test code = 89049-1) [facility] (ID NOW RAPID TESTING)2021-01-20 23:07:03 Test Item Value Reference Range Interpretation Comments SARS-CoV-2 Rapid ID NOW (test Not Detected Not Detected code = 69137-4) CLARICE (test code = CLARICE) Lab Interpretation (test code = Normal 17582-7) [facility] NorthwestUrinalysis2021-08-20 22:53:37 Test Item Value Reference Range Interpretation Comments APPEARANCE (test code = Hazy Clear A 1458357356) COLOR (test code = Yellow Yellow 8549414300) PH (test code = 4.8-8.0 1128171541) SP GRAVITY (test code = 1.003-1.030 7961655180) GLU U QUAL (test code = Normal Normal 7731437706) BLOOD (test code = Negative Negative 1959666369) KETONES (test code = 5 mg/dL Negative A 2315479531) PROTEIN (test code = Negative Negative 2887-8) UROBILIN (test code = Normal Normal 6945043955) BILIRUBIN (test code = Negative Negative 8673009775) NITRITE (test code = Positive Negative A 0226728035) LEUK JONAS (test code = 75/uL Negative A 8491809104) RBC/HPF (test code = See_Comment [Autom ated message] 1854829354) The system Cirqle generated this result transmitted ref erence range: 0 - 3 HP F. The reference range was not used to int erpret this result as normal/abnormal . WBC/HPF (test code = See_Comment [Autom ated message] 7966918305) The system Cirq[employer] generated this result transmitted ref erence range: 0 - 5 HP F. The reference range was not used to int erpret this result as normal/abnormal . BACTERIA (test code = Many Negative A 1084656905) MUCOUS (test code = Slight Negative LPF A 0507942637) SQ EPITH (test code = HPF 3621421594) Lab Interpretation (test Abnormal code = 25790-6) [facility] NorthwestUrinalysis2021-08-20 22:53:37 Test Item Value Reference Range Interpretation Comments APPEARANCE (test code = Hazy Clear A 4551793533) COLOR (test code = Yellow Yellow 6328199239) PH (test code = 4.8-8.0 1092471312) SP GRAVITY (test code = 1.003-1.030 3349916716) GLU U QUAL (test code = Normal Normal 7121888151) BLOOD (test code = Negative Negative 2781591983) KETONES (test code = 5 mg/dL Negative A 5072310325) PROTEIN (test code = Negative Negative 2887-8) UROBILIN (test code = Normal Normal 6303468109) BILIRUBIN (test code = Negative Negative 7864764414) NITRITE (test code = Positive Negative A 9372693683) LEUK JONAS (test code = 75/uL Negative A 6153563082) RBC/HPF (test code = See_Comment [Autom ated message] 4345094975) The system Cirq[employer] generated this result transmitted ref erence range: 0 - 3 HP F. The reference range was not used to int erpret this result as normal/abnormal . WBC/HPF (test code = See_Comment [Autom ated message] 5608500795) The system Cirqle generated this result transmitted ref erence range: 0 - 5 HP F. The reference range was not used to int erpret this result as normal/abnormal . BACTERIA (test code = Many Negative A 0265427828) MUCOUS (test code = Slight Negative LPF A 8372951445) SQ EPITH (test code = HPF 6090976450) Lab Interpretation (test Abnormal code = 14804-8) [facility] [id number] 22:51:39 Test Item Value Reference Interpretation Comments Range TROPONIN I (test 0.002 ng/mL See_Comment [Automated code = 9902619454) message] The system which generated this result [...] biotin. Lab Interpretation Normal (test code = 64615-1) [facility] [id number] 22:51:39 Test Item Value Reference Range Interpretation Comments TROPONIN I (test code = 0.002 ng/mL See_Comment [Au tomated 7524829590) message] The sy stem which generated this result transmitted reference range : <=0.034. The reference range was not used to interpret this result as normal/abnormal . CLARIEC (test code = CLARICE) Lab Interpretation Normal (test code = 32035-5) [facility]. Metabolic Panel ([id number])2021-01-20 22:39:56 Test Item Value Reference Range Interpretation Comments NA (test code = 137 mmol/L 135-145 4547265029) K (test code = 4.1 mmol/L 3.5-5.0 4064443255) CL (test code = 100 mmol/L 98-108 0718099573) CO2 TOTAL (test code = 24 mmol/L 23-31 3341657944) AGAP (test code = 2-16 5770176759) BUN (test code = 15 mg/dL 7-23 4992632477) GLUCOSE (test code = 163 mg/dL 70-110 H 1237061624) CREATININE (test code = 0.71 mg/dL 0.50-1.04 7627593359) TOTAL BILI (test code = 0.6 mg/dL 0.1-1.6 1761694004) CALCIUM (test code = 9.7 mg/dL 8.6-10.6 2398278192) T PROTEIN (test code = 7.5 g/dL 6.3-8.2 5048964542) ALBUMIN (test code = 4.6 g/dL 3.5-5.0 1270712913) ALK PHOS (test code = 139 U/L 34-122 H 6131634048) ALTv (test code = 27 U/L 5-35 1742-6) AST(SGOT) (test code = 28 U/L 13-40 2928725268) eGFR (test code = mL/min/1.73m2 6181540023) CLARICE (test code = CLARICE) Association of [...] tests). Lab Interpretation Abnormal (test code = 19213-7) [facility]. Metabolic Panel (23075)2021-01-20 22:39:56 Test Item Value Reference Range Interpretation Comments NA (test code = 9983043251) 137 mmol/L 135-145 K (test code = 6081335756) 4.1 mmol/L 3.5-5.0 CL (test code = 3742363032) 100 mmol/L 98-108 CO2 TOTAL (test code = 5815322520) 24 mmol/L 23-31 AGAP (test code = 0789745077) 2-16 BUN (test code = 7010607846) 15 mg/dL 7-23 GLUCOSE (test code = 4302437355) 163 mg/dL 70-110 H CREATININE (test code = 0.71 mg/dL 0.50-1.04 0394703221) TOTAL BILI (test code = 0.6 mg/dL 0.1-1.9 0295337527) CALCIUM (test code = 8467895295) 9.7 mg/dL 8.6-10.6 T PROTEIN (test code = 9370150489) 7.5 g/dL 6.3-8.2 ALBUMIN (test code = 3177562042) 4.6 g/dL 3.5-5.0 ALK PHOS (test code = 2919302734) 139 U/L 34-122 H ALTv (test code = 1742-6) 27 U/L 5-35 AST(SGOT) (test code = 0710487810) 28 U/L 13-40 eGFR (test code = 4261575812) mL/min/1.73m2 CLARICE (test code = CLARICE) Lab Interpretation (test code = Abnormal 57462-0) [facility] with [id number] 22:27:13 Test Item Value Reference Range Interpretation Comments WBC (test code = See_Comment [Automated message] 4190-2) The system [employer] generated this result transmitted ref erence range: 4.30 - 1 1.10 10*3/?L. The re ference range was not u sed to interpret this result as normal/abnor mal. RBC (test code = See_Comment [Automated message] 789-8) The system [employer] generated this result transmitted ref erence range: [...] RDW-SD (test code 42.1 fL 39.0-49.9 = 53258-7) RDW-CV (test code 13.3 % 12.0-15.5 = 788-0) PLT (test code = See_Comment [Automated message] 777-3) The system [employer] generated this result transmitted ref erence range: 166 - 35 8 10*3/?L. The re ference range was not u sed to interpret this result as normal/abnor mal. MPV (test code = 9.7 fL 9.5-12.9 32530-6) NRBC/100 WBC (test See_Comment [Automat ed message] code = 1309383993) The syste m which generated this result transmitted ref erence range: 0.0 - 10 .0 /100 WBCs. The refer ence range was not u sed to interpret this result as normal/abnor mal. NRBC x10^3 (test <0.01 See_Comment [Automated message] code = 7926422928) The syste m which generated this result transmitted ref erence range: 10*3/?L. The reference range was not used to interpr et this result as normal/abnormal . GRAN MAT (NEUT) % 59.6 % (test code = 770-8) IMM GRAN % (test 0.70 % code = 3756640003) LYMPH % (test code 27.3 % = 736-9) MONO % (test code 9.4 % = 5905-5) EOS % (test code = 2.0 % 713-8) BASO % (test code 1.0 % = 706-2) GRAN MAT 4.39 10*3/uL 1.88-7.09 x10^3(ANC) (test code = 9737751390) IMM GRAN x10^3 0.05 10*3/uL 0.00-0.06 (test code = 8459465727) LYMPH x10^3 (test 2.01 10*3/uL 1.32-3.29 code = 731-0) MONO x10^3 (test 0.69 10*3/uL 0.33-0.92 code = 742-7) EOS x10^3 (test 0.15 10*3/uL 0.03-0.39 code = 711-2) BASO x10^3 (test 0.07 10*3/uL 0.01-0.07 code = 704-7) [facility] with [id number] 22:27:13 Test Item Value Reference Range Interpretation Comments WBC (test code = See_Comment [Automated message] 6690-2) The system whic h generated this result transmitted ref erence range: 4.30 - 1 1.10 10*3/?L. The re ference range was not u sed to interpret this result as normal/abnor mal. RBC (test code = See_Comment [Automated message] 789-8) The system [employer] generated this result transmitted ref erence range: [...] RDW-SD (test code 42.1 fL 39.0-49.9 = 50199-3) RDW-CV (test code 13.3 % 12.0-15.5 = 788-0) PLT (test code = See_Comment [Automated message] 777-3) The system [employer] generated this result transmitted ref erence range: 166 - 35 8 10*3/?L. The re ference range was not u sed to interpret this result as normal/abnor mal. MPV (test code = 9.7 fL 9.5-12.9 53514-5) NRBC/100 WBC (test See_Comment [Automat ed message] code = 9837683313) The syste m which generated this result transmitted ref erence range: 0.0 - 10 .0 /100 WBCs. The refer ence range was not u sed to interpret this result as normal/abnor mal. NRBC x10^3 (test <0.01 See_Comment [Automated message] code = 2972075059) The syste m which generated this result transmitted ref erence range: 10*3/?L. The reference range was not used to interpr et this result as normal/abnormal . GRAN MAT (NEUT) % 59.6 % (test code = 770-8) IMM GRAN % (test 0.70 % code = 9561700030) LYMPH % (test code 27.3 % = 736-9) MONO % (test code 9.4 % = 5905-5) EOS % (test code = 2.0 % 713-8) BASO % (test code 1.0 % = 706-2) GRAN MAT 4.39 10*3/uL 1.88-7.09 x10^3(ANC) (test code = 3304704753) IMM GRAN x10^3 0.05 10*3/uL 0.00-0.06 (test code = 5095196158) LYMPH x10^3 (test 2.01 10*3/uL 1.32-3.29 code = 731-0) MONO x10^3 (test 0.69 10*3/uL 0.33-0.92 code = 742-7) EOS x10^3 (test 0.15 10*3/uL 0.03-0.39 code = 711-2) BASO x10^3 (test 0.07 10*3/uL 0.01-0.07 code = 704-7) [facility] [id number] 22:15:02 Test Item Value Reference Range Interpretation Comments LACTIC ACID (test code = 3.26 mmol/L 0.50-2.20 H 8865819374) Lab Interpretation (test code = Abnormal 27681-8) [facility] NorthwestL[facility] Whole [id number] 22:15:02 Test Item Value Reference Range Interpretation Comments LACTIC ACID (test code = 3.26 mmol/L 0.50-2.20 H 7472068462) Lab Interpretation (test code = Abnormal 95972-8) [facility] NorthwestCORONAVIRUS COVID-19 [id number] 20:16:00 Test Item Value Reference Range Interpretation Comments SARS-CoV-2 (test code = Not Detected Not Detected 34761-0) CLARICE (test code = CLARICE) ID NOW COVID-19 Assay is an isothermal nucleic acid amplification test intended for the qualitative detection of nucleic acid from SARS-CoV-2 viral RNA in nasopharyngeal (CLERICAL ASSISTANT) specimens. It is used under Emergency Use [...] indicated. Lab Interpretation Normal (test code = 54009-2) [facility]URIN[facility]IS2020-04-19 20:11:00 Test Item Value Reference Range Interpretation Comments APPEARANCE (test code = Clear Clear 6078834698) COLOR (test code = Yellow Yellow 1666409260) PH (test code = 4.8-8.0 2549148345) SP GRAVITY (test code = 1.003-1.030 6801986379) GLU U QUAL (test code = 500 mg/dL Normal A 1918518880) BLOOD (test code = Negative Negative 9102520994) KETONES (test code = Negative Negative 5108352609) PROTEIN (test code = Negative Negative 2887-8) UROBILIN (test code = Normal Normal 6046532141) BILIRUBIN (test code = Negative Negative 3643562744) NITRITE (test code = Positive Negative A 0931036864) LEUK JONAS (test code = Negative Negative 9344422553) RBC/HPF (test code = <1 See_Comment [Autom ated message] 7728292525) The system [employer] generated this result transmit beth reference range : 0 - 3 HPF. The refe rence range was not u sed to interpret th is result as normal/abnormal . WBC/HPF (test code = See_Comment [Autom ated message] 3784045890) The system [employer] generated this result transmit beth reference range : 0 - 5 HPF. The refe rence range was not u sed to interpret th is result as normal/abnormal . BACTERIA (test code = Few Negative A 9076285575) MUCOUS (test code = Slight Negative LPF A 8537061737) SQ EPITH (test code = HPF 5449304542) Lab Interpretation (test Abnormal code = 27792-7) [facility]. METABOLIC PANEL (19528)2019-09-20 19:54:00 Test Item Value Reference Range Interpretation Comments NA (test code = 138 mmol/L 135-145 0104446777) K (test code = 4.3 mmol/L 3.5-5 5703904602) CL (test code = 100 mmol/L 98-108 7304746564) CO2 TOTAL (test code = 28 mmol/L 23-31 1370924664) AGAP (test code = 2-16 6049046664) BUN (test code = 14 mg/dL 7-23 9704369913) GLUCOSE (test code = 264 mg/dL 70-110 H 7901040591) CREATININE (test code = 0.56 mg/dL 0.5-1.04 6665899102) TOTAL BILI (test code = 0.4 mg/dL 0.1-1.9 1876287459) CALCIUM (test code = 9.4 mg/dL 8.6-10.6 1306355337) T PROTEIN (test code = 7.3 g/dL 6.3-8.2 8006494443) ALBUMIN (test code = 4.3 g/dL 3.5-5 6920385952) ALK PHOS (test code = 189 U/L 34-122 H 5223415357) ALTv (test code = 35 U/L 5-35 1742-6) AST(SGOT) (test code = 36 U/L 13-40 4288234461) eGFR Calculation mL/min/1.73m2 (Non-) (test code = 6985017780) eGFR Calculation mL/min/1.73m2 () (test code = 0779358809) CLARICE (test code = CLARICE) Association of [...] tests). Lab Interpretation Abnormal (test code = 63481-4) [facility] NorthwestXR CHEST 1 VW [id number] 19:50:26 No acute cardiopulmonary process. Disclaimer: Generally, the findings on chest imaging in COVID-19 are notspecific, and overlap with other infections, including influenza, H1N1,SARS and MERS.Accordingto the Centers for Disease Control (CDC) and the [place] [employer], viral testing remainsthe only specific [...] versus post surgicalchange, unchanged. Right AC osteoarthrosis. Vtmb, Radiant Results Inft User - 09/20/2019 2:51 [...] Centers for Disease Control (CDC) and the [place] [employer], viral testing remains the only specific method of diagnosiseven if CXR or CT findings are suggestive of COVID-19. Preliminary Report Dictated by Resident: Diogo Teague, Callum Haynes MD., have reviewed this study and agree withthe above report.[facility] WITH [id number] 19:43:00 Test Item Value Reference Range Interpretation Comments WBC (test code = See_Comment [Automated message] 6690-2) The system [employer] generated this result transmitted ref erence range: 4.30 - 1 1.10 10*3/?L. The re ference range was not u sed to interpret this result as normal/abnor mal. RBC (test code = See_Comment [Automated message] 949-8) The system [employer] generated this result transmitted ref erence range: [...] RDW-SD (test code 42.6 fL 39-49.9 = 38781-7) RDW-CV (test code 13.2 % 12-15.5 = 788-0) PLT (test code = See_Comment [Automated message] 777-3) The system [employer] generated this result transmitted ref erence range: 166 - 35 8 10*3/?L. The re ference range was not u sed to interpret this result as normal/abnor mal. MPV (test code = 11.1 fL 9.5-12.9 06672-3) NRBC/100 WBC (test See_Comment [Automat ed message] code = 6786047595) The syste m which generated this result transmitted ref erence range: 0.0 - 10 .0 /100 WBCs. The refer ence range was not u sed to interpret this result as normal/abnor mal. NRBC x10^3 (test <0.01 See_Comment [Automated message] code = 6064974072) The syste m which generated this result transmitted ref erence range: 10*3/?L. The reference range was not used to interpr et this result as normal/abnormal . GRAN MAT (NEUT) % 56.4 % (test code = 770-8) IMM GRAN % (test 0.80 % code = 8164058790) LYMPH % (test code 28.5 % = 736-9) MONO % (test code 8.4 % = 5905-5) EOS % (test code = 5.0 % 713-8) BASO % (test code 0.9 % = 706-2) GRAN MAT 4.28 10*3/uL 1.88-7.09 x10^3(ANC) (test code = 2575398920) IMM GRAN x10^3 0.06 10*3/uL 0-0.06 (test code = 3680425153) LYMPH x10^3 (test 2.16 10*3/uL 1.32-3.29 code = 731-0) MONO x10^3 (test 0.64 10*3/uL 0.33-0.92 code = 742-7) EOS x10^3 (test 0.38 10*3/uL 0.03-0.39 code = 711-2) BASO x10^3 (test 0.07 10*3/uL 0.01-0.07 code = 704-7) [facility] [id number] 14:12:56 Test Item Value Reference Range Interpretation [...] Interpretation Comments POCT GLU (test code = 8953557418) 178 mg/dL 70-110 H Lab Interpretation (test code = Abnormal 96349-1) [facility]2019-09-15 04:56:00 Test Item Value Reference Range Interpretation Comments APPEARANCE (test code = Hazy Clear A 8241958160) COLOR (test code = Yellow Yellow 1545713570) PH (test code = 4.8-8.0 8744258867) SP GRAVITY (test code = 1.003-1.030 H 9652454973) GLU U QUAL (test code = 50 mg/dL Normal A 3082047522) BLOOD (test code = Negative Negative 9238352195) KETONES (test code = Negative Negative 9676170249) PROTEIN (test code = Negative Negative 2887-8) UROBILIN (test code = Normal Normal 2236259513) BILIRUBIN (test code = Negative Negative 5742113318) NITRITE (test code = Negative Negative 8527614282) LEUK JONAS (test code = 500/uL Negative A 3976196886) RBC/HPF (test code = See_Comment H [Autom ated message] 7012664432) The system [employer] generated this result transmitted ref erence range: 0 - 3 HP F. The reference range was not used to int erpret this result as normal/abnormal . WBC/HPF (test code = See_Comment H [Autom ated message] 9090271536) The system [employer] generated this result transmitted ref erence range: 0 - 5 HP F. The reference range was not used to int erpret this result as normal/abnormal . BACTERIA (test code = Negative Negative 2199205784) MUCOUS (test code = Moderate Negative LPF A 6235533657) SQ EPITH (test code = HPF 1967711294) HYAL CAST (test code = See_Comment H [Aut omated message] 2704027109) The system [employer] generated this result transmitted ref erence range: <=2 LPF. The reference range was not used to int erpret this result as normal/abnormal . Lab Interpretation (test Abnormal code = 04734-7) [facility] NorthwestCT CHEST PULMONARY [id number] 03:35:23 A pulmonary embolism is identified in [...] propagates to the lower lobe segmental branches) [id number] on 02/14/2019. I, Callum?MD. [place], have reviewed this study and agree withthe [...] propagates to the lower lobe segmental branches) [id number] on 02/14/2019.I, Callum Haynes MD., have reviewed this study and agree withthe above report.[id number] 02:14:00 Test Item Value Reference Range Interpretation Comments TROPONIN I (test 0.001 ng/mL See_Comment [Automated code = 3459028253) message] The system which generated this result [...] ? Lab Interpretation Normal (test code = 84936-4) [facility] NorthwestN-TERMINAL [id number] 02:11:00 Test Item Value Reference Range Interpretation Comments NT-proBNP (test code 44 pg/mL See_Comment [Autom ated = 2258327860) message] The system which generated this result transmitted reference range : <=125. The reference range was not used to interpret this result as normal/abnormal . CLARICE (test code = CLARICE) Biotin has been reported to cause a negative bias, interpret results relative to patient's use of biotin. Lab Interpretation Normal (test code = 13024-5) [facility] NorthwestaPTT2019-09-15 02:06:00 Test Item Value Reference Range Interpretation Comments APTT Patient (test See_Comment [Automat ed code = 3173-2) message] The system which generated this result transmitted reference range : 23 - 38 Seconds . The reference range was not used to interpr et this result as normal/abnormal . CLARICE (test code = CLARICE) The [facility] patient population mean normal value for aPTT is 30 seconds. Lab Interpretation Normal (test code = 46699-9) [facility] NorthwestPROTHROMBIN TIME / [id number] 02:04:00 Test Item Value Reference Range Interpretation [...] tions. Lab Interpretation (test Normal code = 90626-9) [facility] NorthwestCOMP. METABOLIC PANEL (62146)2019-02-15 02:03:00 Test Item Value Reference Range Interpretation Comments NA (test code = 142 mmol/L 135-145 6162516516) K (test code = 4.6 mmol/L 3.5-5 0658604439) CL (test code = 104 mmol/L 98-108 5771479191) CO2 TOTAL (test code = 26 mmol/L 23-31 7730892222) AGAP (test code = 2-16 3917443086) BUN (test code = 20 mg/dL 7-23 3674573658) GLUCOSE (test code = 200 mg/dL 70-110 H 8800697285) CREATININE (test code = 0.65 mg/dL 0.5-1.04 5005387752) TOTAL BILI (test code = 0.3 mg/dL 0.1-1.0 7221242395) CALCIUM (test code = 10.3 mg/dL 8.6-10.6 2015741972) T PROTEIN (test code = 7.6 g/dL 6.3-8.2 7661263594) ALBUMIN (test code = 4.6 g/dL 3.5-5 5277984143) ALK PHOS (test code = 157 U/L 34-122 H 3554676744) ALT(SGPT) (test code = 40 U/L 9-51 2273967793) AST(SGOT) (test code = 37 U/L 13-40 5739026900) eGFR Calculation mL/min/1.73m2 (Non-) (test code = 9253006734) eGFR Calculation mL/min/1.73m2 () (test code = 8262099235) CLARICE (test code = CLARICE) Association of [...] tests). Lab Interpretation Abnormal (test code = 40591-0) [facility] WITH [id number] 01:53:00 Test Item Value Reference Range Interpretation Comments WBC (test code = See_Comment [Automated 6790-2) message] The sy stem which generated this [...] RDW-SD (test code = 42.5 fL 39-49.9 07478-5) RDW-CV (test code = 13.6 % 12-15.5 788-0) PLT (test code = See_Comment [Automated 777-3) message] The sy stem which generated this result transmitted reference range : 166 - 358 10*3/ ?L. The reference r alexus was not used to interpret this result as normal/abnormal . MPV (test code = 10.1 fL 9.5-12.9 57752-5) NRBC/100 WBC (test See_Comment [Automat ed code = 3062546287) message] The system which generated this result transmitted reference range : 0.0 - 10.0 /100 WBCs. The refer ence range was not u sed to interpret th is result as normal/abnormal . NRBC x10^3 (test code <0.01 See_Comment [Auto mated = 0341651395) message] The s ystem which generated this result transmitted reference range : 10*3/?L. The reference range was not used to interpret this result as normal/abnormal . GRAN MAT (NEUT) % 58.3 % (test code = 770-8) IMM GRAN % (test code 0.30 % = 5821289194) LYMPH % (test code = 28.5 % 736-9) MONO % (test code = 9.5 % 5905-5) EOS % (test code = 2.7 % 713-8) BASO % (test code = 0.7 % 706-2) GRAN MAT x10^3(ANC) 5.71 10*3/uL 1.88-7.09 (test code = 2852787309) IMM GRAN x10^3 (test 0.03 10*3/uL 0-0.06 code = 2215548535) LYMPH x10^3 (test code 2.79 10*3/uL 1.32-3.29 = 731-0) MONO x10^3 (test code 0.93 10*3/uL 0.33-0.92 H = 742-7) EOS x10^3 (test code = 0.26 10*3/uL 0.03-0.39 711-2) BASO x10^3 (test code 0.07 10*3/uL 0.01-0.07 = 704-7) Lab Interpretation Abnormal (test code = 91369-1) [facility]
--- NOTE | 2023-01-02 17:09 | RAD REPORT ---
EXAM DESCRIPTION: CT - Head Brain Wo Cont - 01/02/2023 5:00 pm CLINICAL HISTORY: SEIZURE Headache, drowsiness COMPARISON: Ct Stroke Brain Wo Cont dated 12/15/2022; Head angio dated 12/10/2022 TECHNIQUE: All CT scans are performed using dose optimization technique as appropriate and may inclu de automated exposure control or mA/KV adjustment according to patient size. FINDINGS: No intracranial hemorrhage, hydrocephalus or extra-axial fluid collection.No areas of brai n edema or evidence of midline shift. Vertebral atherosclerosis. The paranasal sinuses and mastoids are clear. The calvarium is intact. IMPRESSION: No acute intracranial abnormality.
--- NOTE | 2023-01-02 17:14 | RAD REPORT ---
EXAM DESCRIPTION: RAD - Chest Single View - 01/02/2023 5:09 pm CLINICAL HISTORY: fever, seizure, rule out pneumonia Chest pain. FINDINGS: Portable technique limits examination quality. The lungs are grossly clear. The heart is normal in size. No displaced fractures.Cervical spine hardw are. IMPRESSION: No acute intrathoracic process suspected.
[2023-01-02 17:40] LABS: Absolute Lymphocytes (CBC) 2.3 K/uL (0.7-4.9); Hematocrit 34.4 % (36.0-45.0); Lymphocytes % 31.5 % (15.3-44.8); MCV 83.8 fL (80-100); MPV 7.9 fL (7.6-11.3)
[2023-01-02 17:44] LABS: SARS-CoV-2 Antigen Rapid Res Negative (Negative)
[2023-01-02] MEDS ORDERED: levETIRAcetam 1,000 MG in NA CHLORIDE 0.9% 100 ML IV ONE (17:45)
[2023-01-02 18:04] LABS: Potassium 3.9 mEq/L (3.5-5.1)
[2023-01-02 19:39] LABS: Calcium Oxalate Crystals- Ur Few /HPF (None Seen); Specific Gravity > 1.030 (1.005-1.030); Urine Bacteria <20 /HPF (<20); Urine Bilirubin NEGATIVE (Negative); Urine Blood Negative (Negative); Urine Clarity Extremely Turbid (Clear); Urine Color Yellow (Yellow); Urine Glucose NEGATIVE (Negative); Urine Mucus Slight /HPF (None Seen); Urine Protein TRACE (Negative); Urine RBC 21-50 /HPF (None Seen); Urine Urobilinogen 1+ (Normal)
--- NOTE | 2023-01-02 19:47 | ER ---
Nurse's Notes [facility] Name: Christina Isidro Age: 67 yrs Sex: Female : 1955 Arrival Date: 01/02/2023 Time: 16:28 Bed 18 Private MD: Diagnosis: Localization-related (focal) (partial) idiopathic epilepsy and epileptic syndromes with seizures of localized onset;UTI/ Urinary tract infection, site not specified-resolving Presentation: 01/02 17:00 Chief complaint: Patient states: had 2 seizures before EMS arrived. EMS reports 4 very nj1 close to each other episodes, patient stutters, alert and orientated and shakes. Pt states insurance nurse had called the ambulance. Coronavirus screen: Vaccine status: Patient reports receiving the 2nd dose of the covid vaccine. 17:00 Method Of Arrival: EMS: [place] [id number] 17:00 Ebola Screen: Patient denies travel to an Ebola-affected area in the 21 days before nj1 illness onset. Initial Sepsis Screen: Does the patient meet any 2 criteria? No. Patient's initial sepsis screen is negative. Does the patient have a suspected source of infection? No. Patient's initial sepsis screen is negative. Risk Assessment: Do you want to hurt yourself or someone else? Patient reports no desire to harm self or others. Onset of symptoms was January 02, 2023. 17:00 Acuity: AARON 3 nj1 Historical: - Allergies: 17:25 Lorazepam; nj1 - PMHx: 17:25 CAD; Diabetes - IDDM; DVT; pulmonary embolus; Seizure; nj1 - Immunization history:: Client reports receiving the 2nd dose of the Covid vaccine. - Social history:: Smoking status: Patient denies any tobacco usage or history of. - Family history:: not pertinent. - Hospitalizations: : No recent hospitalization is reported. Screenin:42 [facility] ED Fall Risk Assessment (Adult) History of falling in the last 3 months, ld1 including since admission No falls in past 3 months (0 pts). Abuse screen: Denies threats or abuse. Denies injuries from another. Nutritional screening: No deficits noted. Tuberculosis screening: No symptoms or risk factors identified. Assessment: 17:41 General: Appears in no apparent distress. comfortable, Behavior is calm, cooperative, ld1 appropriate for age. Pain: Denies pain. Neuro: Level of Consciousness is awake, alert, obeys commands, Oriented to person, place, time, situation, Appropriate for age. Neuro: Seizure activity reported prior to arrival. Cardiovascular: Capillary refill < 3 seconds Patient's skin is warm and dry. Rhythm is sinus rhythm. Respiratory: Airway is patent Respiratory effort is even, unlabored. GI: Abdomen is flat, non-distended. : No signs and/or symptoms were reported regarding the genitourinary system. EENT: No signs and/or symptoms were reported regarding the EENT system. Derm: No signs and/or symptoms reported regarding the dermatologic system. Musculoskeletal: No signs and/or symptoms reported regarding the musculoskeletal system. 18:13 Reassessment: Patient appears in no apparent distress at this time. No changes from ld1 previously documented assessment. Patient and/or family updated on plan of care and expected duration. Pain level reassessed. Patient is alert, oriented x 3, equal unlabored respirations, skin warm/dry/pink. 18:52 Reassessment: Patient appears in no apparent distress at this time. No changes from ld1 previously documented assessment. Patient and/or family updated on plan of care and expected duration. Pain level reassessed. Patient is alert, oriented x 3, equal unlabored respirations, skin warm/dry/pink. 19:42 Reassessment: Patient appears in no apparent distress at this time. Patient and/or jw7 family updated on plan of care and expected duration. Pain level reassessed. Patient is alert, oriented x 3, equal unlabored respirations, skin warm/dry/pink. Patient states feeling better. Vital Signs: 17:00 BP 115 / 73 RA; Pulse 69; Resp 18; Temp 97.6(O); Pulse Ox 97% on R/A; Weight 74.84 kg; nj1 Height 5 ft. 6 in. ; 17:42 BP 124 / 61; Pulse 71; Resp 18; Pulse Ox 98% on R/A; ld1 18:13 BP 121 / 71; Pulse 76; Resp 18; Pulse Ox 100% on R/A; ld1 18:52 BP 141 / 83; Pulse 67; Resp 18; Pulse Ox 98% on R/A; ld1 19:43 BP 136 / 77; Pulse 67; Resp 17 S; Pulse Ox 95% on R/A; jw7 17:00 Body Mass Index 26.63 (74.84 kg, 167.64 cm) nj1 ED Course: 16:42 Patient arrived in ED. rn 16:42 Kirk Zambrano MD is Attending Physician. rn 17:01 CT Head Brain wo Cont In Process Unspecified. EDMS 17:07 Heydi Desouza, RN is Primary Nurse. ld1 17:11 XRAY Chest (1 view) In Process Unspecified. EDMS 17:25 Triage completed. nj1 17:26 Arm band placed on. nj1 17:28 Flu Sent. ld1 17:28 SARS RAPID Sent. ld1 17:28 CBC with Diff Sent. ld1 17:28 Basic Metabolic Panel Sent. ld1 17:40 Flu Sent. ld1 17:40 SARS RAPID Sent. ld1 17:42 Patient has correct armband on for positive identification. Placed in gown. Bed in low ld1 position. Call light in reach. Side rails up X2. quality assurance monitor final on. Pulse ox on. NIBP on. Notified ED physician of. Door closed. Noise minimized. Warm blanket given. 17:42 No provider procedures requiring assistance completed. Maintain EMS IV. Dressing ld1 intact. Good blood return noted. Site clean \T\ dry. Gauge \T\ site: 20G LAC. 18:11 Alexia Barroso FNP-C [facility]. snw 20:09 Provided Education on: discharge instructions . jw7 20:09 IV discontinued, intact, bleeding controlled, No redness/swelling at site. Pressure jw7 dressing applied. Administered Medications: 17:40 Drug: Keppra IV 1000 mg Route: IV; Rate: calculated rate; Site: left antecubital; ld1 20:08 Follow up: Response: No adverse reaction; IV Status: Completed infusion; IV Intake: jw7 100ml Medication: 20:09 VIS not applicable for this client. jw7 Intake: 20:08 IV: 100ml; Total: 100ml. jw7 Outcome: 19:46 Discharge ordered by . snw 20:08 Discharged to home ambulatory, with family. jw7 20:08 Condition: stable 20:08 Discharge instructions given to patient, Instructed on discharge instructions, follow up and referral plans. medication usage, Demonstrated understanding of instructions, follow-up care, medications, Prescriptions given X 1. 20:09 Patient left the ED. jw7 Signatures: Dispatcher [employer] [facility] Alexia Barroso, EQUAL OPPORTUNITY DIRECTOR-C EQUAL OPPORTUNITY DIRECTOR-Csnw Kirk Zambrano MD MD rn Desouza, Heydi RN RN ld1 Anna Marie Fernandez RN RN jw7 Guera Kapadia RN RN nj1
--- NOTE | 2023-01-02 19:47 | EDPHYS ---
Physician Documentation [facility] Name: Christina Isidro Age: 67 yrs Sex: Female : 1955 Arrival Date: 01/02/2023 Time: 16:28 Bed 18 Private MD: ED Physician Kirk Zambrano HPI: 01/02 16:46 This 67 yrs old Female presents to ER via Unassigned with complaints of seizure. rn 16:46 This 67 yrs old Female presents to ER via Unassigned with unknown complaint. rn 16:46 The patient's problem is reported as an apparent seizure. Onset: The symptoms/episode rn began/occurred 5 day(s) ago. Duration: The episodes are intermittent. The symptoms are alleviated by nothing. The symptoms are aggravated by nothing. Associated signs and symptoms: Pertinent positives: seizure, Pertinent negatives: abdominal pain, chest pain, combativeness. Severity of symptoms: At their worst the symptoms were moderate in the emergency department the symptoms have improved. The patient has experienced similar episodes in the past. The patient has not recently seen a physician. EMS reports seizure today, possibly 2 seizures, identical to past with slurred speech and whole body tremors, does not lose consciousness, no injury. Patient states feeling better and confirms that this is typical of her seizures. Sees Dr. Love and mojgan foley. EMS reports low grade fever. Pt states when symptoms started a while back, was initially thought to be TIA, but then told these episodes were seizures. These seizures lately have been present and happening since last Saturday. . Historical: - Allergies: 17:25 Lorazepam; nj1 - PMHx: 17:25 CAD; Diabetes - IDDM; DVT; pulmonary embolus; Seizure; nj1 - Immunization history:: Client reports receiving the 2nd dose of the Covid vaccine. - Social history:: Smoking status: Patient denies any tobacco usage or history of. - Family history:: not pertinent. - Hospitalizations: : No recent hospitalization is reported. ROS: 16:46 Constitutional: Negative for chills, and weight loss, Eyes: Negative for injury, pain, rn redness, and discharge, Neck: Negative for injury, pain, and swelling, Cardiovascular: Negative for chest pain, palpitations, and edema, Respiratory: Negative for shortness of breath, cough, wheezing, and pleuritic chest pain, Abdomen/GI: Negative for abdominal pain, nausea, vomiting, diarrhea, and constipation, MS/Extremity: Negative for injury and deformity, Skin: Negative for injury, rash, and discoloration, Neuro: Negative for weakness, numbness, tingling Exam: 16:46 Constitutional: This is a well developed, well nourished patient who is awake, alert, rn using her phone with intermittent stutter. Head/Face: Normocephalic, atraumatic. Cardiovascular: Regular rate and rhythm. No pulse deficits. Respiratory: No increased work of breathing, no retractions or nasal flaring. Abdomen/GI: soft, non-tender Skin: Warm, dry MS/ Extremity: Pulses equal, no cyanosis. Neuro: Awake and alert, GCS 15, oriented to person, place, time, and situation. Cranial nerves II-XII grossly intact. Motor strength 4/5 in all extremities. Sensory grossly intact. Cerebellar exam normal. Using cell phone while waiting in hallway for open bed. 17:25 Radiologist reports: NO acute findings rn 17:25 ECG was reviewed by the Attending Physician. Vital Signs: 17:00 BP 115 / 73 RA; Pulse 69; Resp 18; Temp 97.6(O); Pulse Ox 97% on R/A; Weight 74.84 kg; nj1 Height 5 ft. 6 in. ; 17:42 BP 124 / 61; Pulse 71; Resp 18; Pulse Ox 98% on R/A; ld1 18:13 BP 121 / 71; Pulse 76; Resp 18; Pulse Ox 100% on R/A; ld1 18:52 BP 141 / 83; Pulse 67; Resp 18; Pulse Ox 98% on R/A; ld1 19:43 BP 136 / 77; Pulse 67; Resp 17 S; Pulse Ox 95% on R/A; jw7 17:00 Body Mass Index 26.63 (74.84 kg, 167.64 cm) nj1 MDM: 16:42 Patient medically screened. rn 17:45 ED course: Pt strangely able to speak clearly without difficulty while whispering, rn stuttering speech at full volume.. 19:49 Differential diagnosis: seizure, TIA, infection. Data reviewed: vital signs, nurses snw notes, lab test result(s), radiologic studies. I considered the following discharge prescriptions or medication management in the emergency department Medications were administered in the Emergency Department. See MAR. Counseling: I had a detailed discussion with the patient and/or guardian regarding: the historical points, exam findings, and any diagnostic results supporting the discharge/admit diagnosis, the presence of at least one elevated blood pressure reading (>120/80) during this emergency department visit, lab results, radiology results, the need for outpatient follow up, for definitive care, a neurologist, to return to the emergency department if symptoms worsen or persist or if there are any questions or concerns that arise at home. Special discussion: Based on the history and exam findings, there is no indication for further emergent testing or inpatient evaluation. I discussed with the patient/guardian the need to see the neurologist for further evaluation of the symptoms. I discussed with the patient/guardian the need to see the primary care provider for further evaluation of the symptoms. 01/02 16:44 Order name: CBC with Diff; Complete Time: 17:46 rn 01/02 16:44 Order name: Basic Metabolic Panel; Complete Time: 18:11 rn 01/02 16:44 Order name: Urinalysis w/ reflexes; Complete Time: 19:42 rn 01/02 16:45 Order name: SARS RAPID; Complete Time: 17:46 rn 01/02 16:45 Order name: Flu; Complete Time: 18:11 rn 01/02 16:44 Order name: CT Head Brain wo Cont; Complete Time: 17:11 01/02 16:45 Order name: XRAY Chest (1 view); Complete Time: 17:15 rn 01/02 16:45 Order name: EKG; Complete Time: 16:45 01/02 16:44 Order name: IV Start; Complete Time: 17:23 rn 01/02 16:44 Order name: Cardiac monitoring; Complete Time: 17:23 01/02 16:44 Order name: O2 Sat Monitoring; Complete Time: 17:07 01/02 16:45 Order name: Glucose Level; Complete Time: 17:23 01/02 16:45 Order name: EKG - Nurse/Tech; Complete Time: 17:23 rn EC:25 Rate is 72 beats/min. Rhythm is regular. QRS [place] is Normal. [place] interval is normal. QRS rn interval is normal. QT interval is normal. No Q waves. T waves are Normal. No ST changes noted. Clinical impression: Normal ECG. Interpreted by me. Administered Medications: 17:40 Drug: Keppra IV 1000 mg Route: IV; Rate: calculated rate; Site: left antecubital; ld1 20:08 Follow up: Response: No adverse reaction; IV Status: Completed infusion; IV Intake: jw7 100ml Disposition: 01/03 10:00 Co-signature as Attending Physician, Kirk Zambrano MD I reviewed the patient's care rn provided by the Advanced Practice Provider and agree with the diagnosis and treatment plan. 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 snw with seizures of localized onset - UTI/ Urinary tract infection, site not specified - resolving snw Followup: snw - With: Emergency Department - When: As needed - Reason: Worsening of condition Followup: snw - With: Private Physician - When: 2 - 3 days - Reason: Recheck today's complaints, Continuance of care, Re-evaluation by your physician Discharge Instructions: - Discharge Summary Sheet snw - Seizure, Adult snw - Rehydration, Elderly snw Forms: - Medication Reconciliation Form snw - Thank You Letter snw - Antibiotic Education snw - Prescription Opioid Use snw - Patient Portal Instructions snw Prescriptions: - Keppra 500 mg Oral Tablet - take 1 tablet by ORAL route every 12 hours for 10 days; 20 tablet; Refills: 0, snw Product Selection Permitted Signatures: Dispatcher [employer] EDAlexia Quintanilla, DOPE SPRAYER-C DOPE SPRAYER-Csnw Kirk Zambrano MD MD rn Sims, Lauren RN RN ld1 Guera Kapadia RN RN nj1 Anna Marie Fernandez RN jw7
[2023-01-02 20:48] VITALS: TEMP 97.6
[2023-01-02 20:54] VITALS: BP 136/77; O2SAT 95
== END 2023-01-02 20:09 | disposition home or self-care (01) ==
LOC: ER 16:28
DX: G40.009 Localization-related (focal) (partial) idiopathic epilepsy and epileptic syndromes with seizures of localized onset, not intractable, without status epilepticus (principal); N39.0 Urinary tract infection, site not specified; E11.9 Type 2 diabetes mellitus without complications; Z20.822 Contact with and (suspected) exposure to COVID-19; Z88.8 Allergy status to other drugs, medicaments and biological substances; Z86.718 Personal history of other venous thrombosis and embolism
CPT/HCPCS: 85025; 81001; 80048; 36415; 87804 ×2; 70450; 71045; 87811; J1953; 93005

== ENCOUNTER 2023-01-03 11:31 | Emergency (ER) | payer OTHER ==
[2023-01-03 11:47] LABS: Absolute Lymphocytes (CBC) 1.8 K/uL (0.7-4.9); Hematocrit 34.8 % (36.0-45.0); Lymphocytes % 26.3 % (15.3-44.8); MCV 83.7 fL (80-100); MPV 7.5 fL (7.6-11.3); RBC Red Blood Cell Count 4.16 M/uL (3.86-4.86)
--- OUTSIDE RECORDS SUMMARY | 2023-01-03 11:47 | XMS REPORT | Continuity of Care Document ---
:[address] [facility] t Address [address]. [address] [place] [address] Care Team Providers Name Role Phone Asked, [...] Chilvana Attending Clinician Christin Anderson Attending Clinician [facility] Attending Clinician Unavailable Andreia Buckley Attending Clinician MARCIAL VAUGHAN Attending Clinician Unavailable Marcial Vaughan MD Attending Clinician Larisa Henderson Attending Clinician Piotr Josue Attending Clinician Nimesh Parra Attending Clinician VERNA BRUSH Attending Clinician Unavailable Coretta Tavares RN Attending Clinician Unavailable Doctor Unassigned, [place] Attending Clinician Unavailable SAMUEL ANN Attending Clinician [...] Clinician Unavailable CHASE Attending Clinician Unavailable Maribell Ramriez Attending Clinician [phone] Prudencio Ríos DO Attending Clinician [facility] [...] Number Effective Date Expiration Date Torie salazar [facility] [employer] [place] [id number] 2019 00:00:00 [facility] HEALTH [id number] 2020 (MEDICARE 00:00:00 REPLACEMENT HMO) MANAGED MEDICARE [id number] 2018 HMO GENERIC 00:00:00 [employer] MEDICARE [id number] 2018 COMPLETE 00:00:00 Problems Condition Condition Condition Status Onset Resolution Last Treating Co mments Source Name Details Category Date Date Treatment Clinician Date Dizziness Dizziness Disease Active Uni vers 7-02 ity of 00:00: [place] 00 Medical Branch Abnormal Abnormal Disease Active Unive rs involuntar involuntar 6-05 it y of [place] Disorienta Disorienta Disease Active U nivers tion tion 6- ity of 00:00: [place] [facility] UTI UTI Disease Active Univers (urinary (urinary 8-16 ity of tract tract 00:00: [place] infection) infection) 00 Me dical Branch Peripheral Peripheral Disease Active U nivers neuropathy neuropathy 8-16 it y of 00:00: [place] 00 Medical Branch Meningioma Meningioma Disease Active 2022-0 U nivers of of 8-16 ity of cerebellum cerebellum 00:00: [place] (left) (left) 00 Medical Branch Difficulty Difficulty Disease Active U nivers with with 8-15 ity of speech speech 00:00: [place] [facility] Pulmonary Pulmonary Disease Active Uni vers embolism, embolism, 4-22 it[place] of bilateral bilateral [place] Hypotensio Hypotensio Disease Active U nivers n n 8-20 ity of 00:00: [place] [facility] Meningioma Meningioma Disease Active M [...] Disease Active Univers 4-17 ity of 00:00: [place] [facility] Dyspnea Dyspnea Disease Active 2018-06 Univers 1-23 ity of 00:00: [place] [facility] Acute deep Acute deep Disease Active U nivers vein vein 6-28 ity of thrombosis [place] (DVT) of (DVT) of 00 Medica l proximal proximal Branch vein of vein of lower lower extremity extremity Pulmonary Pulmonary Disease Active Uni vers embolism embolism 6-22 ity of 00:00: [place] [facility] Obesity Obesity Disease Active Univers (BMI (BMI 6-22 ity of 30-39.9) 30-39.9) 00:00: [place] [facility] Transient Transient Problem Active 2022-07-07 Memoria ischemic ischemic 23:39:55 l attack attack Yong (disorder) (disorder) Active Problem 07/07/2022 [facility] [place] Diabetes Diabetes Problem Active 2022-07-07 Memoria mellitus mellitus 23:39:55 l (disorder) (disorder) [place] Active Problem 07/07/2022 [facility] Restless Restless Problem Active 2022-07-07 Memoria legs legs 23:39:55 l (disorder) (disorder) [place] Active Problem 07/07/2022 [facility] Deep Deep Problem Active 2022-07-07 Memor ia venous venous 23:39:55 l thrombosis thrombosis He rmann of lower of lower extremity extremity (disorder) (disorder) Active Problem 07/07/2022 [facility] Hyperlipid Hyperlipi Problem Active 2022-07-07 Memoria emia demia 23:39:55 l (disorder) (disorder) [place] Active Problem 07/07/2022 [facility] Disease Disease Problem Active 2022-07-07 Me moria caused by caused by 23:39:55 l 2019-nCoV 2018-nCoV Herm benedicto Active Problem 07/07/2022 [facility] Vertigo Vertigo Problem Active 2022-07-07 Me moria (finding) (finding) 23:39:55 l Active [place] Problem 07/07/2022 [facility] Stammering Stammerin Problem Active 2022-07-07 Memoria (finding) g 23:39:55 l (finding) Yong Active Problem 07/07/2022 [facility] 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 Guille n (disorder) (disorder) Active Problem 07/07/2022 [facility] Allergies, Adverse Reactions, Alerts Allergy Allergy Status [...] [facility] Ativan Drug Active [facility] melatoni Drug Active [facility] Ativan Drug Active [facility] No Known No Known Active Memori a Medicati Medicati l on on [place] Allergie Allergie s s Ativan Ativan Active Memoria l [place] Ativan Allergy Active Moderate Hallucinatio D evoted to Medical substanc Group e Lipitor Allergy Active Moderate Hallucinatio Devoted to Medical substanc Group e Family History Family Member Diagnosis Comments Start Date Stop Date Source Maternal grandmother Deep vein [facility] Natural mother Deep [facility] Other [facility] Social History Social Habit Start Date Stop Date Quantity Comments Source History SDOH Social Unive rsity of Connections Get [place] Med ical Together Branch History SDOH Social Unive rsity of Connections [facility] Medical Branch History SDOH Social Unive rsity of Connections [place] [facility] Membership Branch History SDOH Social Unive rsity of Connections [place] [facility] Meetings Branch History SDOH University o f Alcohol Std Drinks [place] [facility] History SDOH University o f Alcohol Binge [place] Medic al Branch History of tobacco Passive smoker Un iversity of use [place] [facility] Gender identity [facility] Sexual orientation [facility] History [...] University o f Housing Places 00:00:00 00:00:00 [place] Medi corby Lived Branch History SDOH 2022-12-03 2022-12-03 2 University o f Housing Homeless 00:00:00 00:00:00 [place] Me dical Last Year Branch History SDOH 2022-12-03 2022-12-03 1 University o f Alcohol Frequency 00:00:00 00:00:00 [place] M edical Branch History SDOH 2022-12-03 2022-12-03 5 University o f Financial 00:00:00 00:00:00 [place] [facility] History SDOH Food 2022-12-03 2022-12-03 1 Univers ity of Worry 00:00:00 00:00:00 [place] [facility] History SDOH Food 2022-12-03 2022-12-03 1 Univers ity of Scarcity 00:00:00 00:00:00 [place] [facility] History SDOH 2022-12-03 2022-12-03 2 University o f Transport Med 00:00:00 00:00:00 [place] Medic al Branch History SDNJ 2022-12-03 2022-12-03 2 University o f Transport Non-Med 00:00:00 00:00:00 [facility] edical Branch Tobacco Comment 2022-12-02 2022-12-02 Pt refuses Universit y of 00:00:00 00:00:00 counseling [facility] haven't smoked in Branch 45 years Exposure to 2022-08-29 2022-09-08 Not sure University of SARS-CoV-2 (event) 00:00:00 00:34:00 [facility] History of Social 2021-09-07 2021-09-[address] function 00:00:00 00:00:00 Hospital Alcohol intake 2021-09-07 2021-09-07 Ex-drinker [facility] 00:00:00 00:00:00 (finding) Hospital Alcohol Comment 2020-12-02 2020-12-02 a few drinks a Metho dist 00:00:00 00:00:00 year Hospital Tobacco use and 2020-12-02 2020-12-02 Smokeless tobacco Me thodist exposure 00:00:00 00:00:00 non-user Hospital Education 2018-11-22 2018-11-22 11 University of 00:00:00 00:00:00 [facility] Sex Ass[birth year] At [birth year] [facility] 00:00:00 00:00:00 Hospital Smoking Status Start Date Stop Date Source Tobacco smoking status 2022-03-13 18:17:28 2022-03-13 18:17:28 [place] Never smoked tobacco [facility] [place] [facility] Medications Ordered Filled Start Stop Current Ordering [...] 00 First dose Medical injection 5 on [facility] 12/03/22 at 0900, Until Discontinu ed citalopram Yes 40mg 40 mg, Unive rs (CELEXA) 12-03 Oral, ity of tablet 40 14:00: DAILY, [place] mg 00 First dose Medical on [facility] 12/03/22 at 0900, Until Discontinu ed, [...] mg 00 First dose Medic al on [facility] 12/03/22 at 0800, Until Discontinu ed, Routine pramipexole Yes .25mg 0.25 mg, U nivers (MIRAPEX) 12-03 Oral, TID, ity of tablet 0.25 13:00: First dose [place] mg 00 on [facility] 12/03/22 at Branch 0800, Until Discontinu ed, Routine apixaban Yes [id number] 5mg 5 mg, Univers (ELIQUIS) 12-03 Oral, BID, ity of tablet 5 mg 13:00: First dose [place] 00 on [facility] 12/03/22 at Branch 0800, Until Discontinu ed, Routine
Indicatio ns: Non-Valvul ar Atrial Fibrillati on magnesium 2022- No 2g 2 g, IV Univ ers sulfate in 12-03 Piggyback, it y of water 2 13:00: 14:46 Administer [place] as gram/50 mL 00 :00 over 60 Medica l (4 %) Minutes, Branch infusion 2 ONCE NOW, g 1 dose, On [facility] 12/03/22 at 0800, Routine Sliding Yes Subcutaneo Univ ers Scale 12-03 us, TID ity of Insulin - 02:00: MEALS+HS, [place] Lispro 00 First dose Medical (HumaLOG) on [facility] 12/02/22 at 2100, Until Discontinu ed, Routine gabapentin 2022- Yes [id number] 300mg Take 1 Univers 300 mg 12-03 capsule by ity of capsule 00:00: 04:59 mouth in [place] 00 :00 the [facility] and 1 capsule at noon and 1 capsule in the evening. Do all this for 30 days. gabapentin 2022- Yes [id number] 300mg Take 1 Univers 300 mg 12-03 capsule by ity of capsule 00:00: 04:59 mouth in [place] 00 :00 the [facility] and 1 capsule at noon and 1 capsule in the evening. Do all this for 30 days. magnesium 2022- Yes [id number] 400mg Take 400 Univers oxide 420 12-03 07-11 mg by ity of mg Tab 00:00: 04:59 mouth in [place] 00 :00 the [facility] and 400 mg in the evening. Do all this for 7 days. magnesium 2022- Yes [id number] 400mg Take 400 Univers oxide 420 12-03 07-11 mg by ity of mg Tab 00:00: 04:59 mouth in [place] 00 :00 [facility] and 400 mg in the evening. Do all this for 7 days. NaCl 0.9% 2022- No 1000mL at 100 Uni vers (NS) IV 12-02 07-03 mL/hr, IV ity of infusion 23:30: 12:10 Infusion, [place] 1,000 mL 00 :04 CONTINUOUS Medic al , Starting Branch on [place] 12/02/22 at 1830, Until 12/03/22 at 0710, Routine glucagon Yes 1mg 1 mg, Univers (GLUCAGEN 12-02 Intramuscu ity of DIAGNOSTIC 23:14: lar, PRN, [place] KIT) 29 Starting Medical injection 1 on [facility] mg 12/02/22 at 1814, Until Discontinu ed, DAKOTAH, Blood Glucose < or = 70 mg/dL and patient is NPO, unable to swallow or has mental changes. dextrose 50 0 Yes 25mL 25 mL, Univ ers % in water 12-02 Slow IV ity of (D50W) 23:14: Push, PRN, [place] injection 29 Starting Medica l 25 mL on [facility] 12/02/22 at 1814, Until Discontinu ed, DAKOTAH, Blood Glucose < or = 70 mg/dL and patient is NPO, unable to swallow or has mental status changes. acetaminoph Yes 650mg 650 mg, Un meri en 12-02 Oral, ity of (TYLENOL) 23:13: Q6HPRN, [place] tablet 650 48 Starting Medic al mg on [facility] 12/02/22 at 1813, Until Discontinu ed, Routine, Pain (scale 1-3) NaCl 0.9% 2022- No 1000mL at 999 Uni vers (NS) bolus 12-02-02 mL/hr, ity of infusion 22:15: 23:07 1,000 mL, [place] 1,000 mL 00 :00 IV Medical Infusion, Branch ONCE, 1 dose, On [place] 12/02/22 at 1715, DAKOTAH iopamidol 0 2022- No [id number] 83mL 83 mL, U nivers (ISOVUE 12-02 Intravenou ity o f 370-500 mL) 22:15: 22:15 s, ONCE, 1 [place] injection 00 :00 dose, On Medica l 83 mL [place] 7/2/23 Branch at 1715, Routine NaCl 0.9% [...] Therapy: Other (see Comments) pramipexole 2022- Yes [id number] .25mg Take 1 Univers 0.25 mg 11-05 tablet by ity of tablet 00:00: 05:59 mouth in [place] 00 :00 the Medical morning Branch and 1 tablet at noon and 1 tablet in the evening. Do all this for 180 days. pramipexole 2022- Yes [id number] .25mg Take 1 Univers 0.25 mg 11-05 tablet by ity of tablet 00:00: 05:59 mouth in [place] 00 :00 the Medical morning Branch and 1 tablet at noon and 1 tablet in the evening. Do all this for 180 days. pramipexole 2022- Yes [id number] .25mg Take 1 Univers 0.25 mg 11-05 tablet by ity of tablet 00:00: 05:59 mouth in [place] 00 :00 the [facility] Branch and 1 tablet at noon and 1 tablet in the evening. Do all this for 180 days. pramipexole 2022- Yes [id number] .25mg Take 1 Univers 0.25 mg 11-05 tablet by ity of tablet 00:00: 05:59 mouth in [place] 00 :00 the [facility] and 1 tablet at noon and 1 tablet in the evening. Do all this for 180 days. gabapentin 2022- Yes [id number] 600mg Take 2 Univers 300 mg 11-05 capsules ity of capsule 00:00: 04:59 by mouth [place] 00 :00 in the [facility] Branch and 2 capsules at noon and 2 capsules in the evening. Do all this for 30 days. gabapentin 2022- Yes [id number] 600mg Take 2 Univers 300 mg 11-05 capsules ity of capsule 00:00: 04:59 by mouth [place] 00 :00 in the Medical morning Branch and 2 capsules at noon and 2 capsules in the evening. Do all this for 30 days. gabapentin 2022- No [id number] 600mg Take 2 Univers 300 mg 11-05 capsules ity of capsule 00:00: 00:00 by mouth [place] 00 :00 in the [facility] Branch and 2 capsules at noon and 2 capsules in the evening. Do all this for 30 days. gadobenate 2022- No [id number] .2mL/kg 16.32 mL Univers dimeglumine 11-04 (0.2 [...] dose [place] mg 00 on Sat [facility] 11/02/22 at Branch 0800, Until Discontinu ed, Routine gabapentin 2022- No 900mg 900 mg, Un meri (NEURONTIN) 11-0205 Oral, TID, i ty of capsule 900 13:00: 14:44 First dose [place] mg 00 :53 on [facility] 11/02/22 at Branch 0800, Until Discontinu ed, Routine apixaban 2022- No [id number] 5mg 5 mg, Univers (ELIQUIS) 11-02 Oral, BID, ity of tablet 5 mg 13:00: 19:33 First dose [place] 00 :24 on [facility] 11/02/22 at Branch 0800, Until Discontinu ed, Routine
Indicatio ns: DVT/PE glucagon Yes 1mg 1 mg, Univers (GLUCAGEN 11-02 Intramuscu ity of DIAGNOSTIC 11:31: lar, PRN, [place] KIT) 20 Starting Medical injection 1 on Sat [facility] 11/02/22 at 0631, Until Discontinu ed, DAKOTAH, Blood Glucose < or = 70 mg/dL and patient is NPO, unable to swallow or has mental changes. dextrose 50 Yes 25mL 25 mL, Univ ers % in water 11-02 Slow IV ity of (D50W) 11:31: Push, PRN, [place] injection 20 Starting Medica l 25 mL on Sat [place] 11/02/22 at 0631, Until Discontinu ed, DAKOTAH, Blood Glucose < or = 70 mg/dL and patient is NPO, unable to swallow or has mental status changes. pramipexole Yes .25mg 0.25 mg, U nivers (MIRAPEX) 11-02 Oral, TID, ity of tablet 0.25 07:45: First dose [place] mg 00 on [facility] 11/02/22 at Branch 0245, Until Discontinu ed, [...] Branch on [place] 11/01/22 at 2318, Until [facility] 11/01/22 at 2327, Routine, Agitation, mri acetaminoph Yes 650mg 650 mg, Un meri en 11-02 Oral, ity of (TYLENOL) 02:19: Q6HPRN, [place] tablet 650 40 Starting Medic al mg on [facility] Branch 11/01/22 at 2119, Until Discontinu ed, Routine, Pain (scale 4-6) docusate Yes 100mg 100 mg, Unive rs (COLACE) 11-02 Oral, ity of capsule 100 02:19: QDAILYPRN, [place] mg 40 Starting Medical on Geri Branch 11/01/22 at 2119, Until Discontinu ed, Routine, Constipati on iopamidol 2022- No [id number] 89mL 89 mL, U nivers (ISOVUE 11-01 Intravenou ity o f 370-500 mL) 19:51: 19:51 s, ONCE, 1 [place] injection 00 :00 dose, On Medica l 89 mL [facility] 11/01/22 Branch at 1515, Routine diazePAM 2022- No 5mg 5 mg, Slow Un meri (VALIUM) 11-01 IV Push, ity of injection 5 19:30: 19:30 ONCE, 1 [place] mg 00 :00 dose, On Medical Ger[place] 11/01/22 Branch at 1430, STAT cefTRIAXone 2022- No 1000mg 1,000 mg, Univers (ROCEPHIN) 09-08 04-08 IV ity of 1,000 mg in 08:15: 08:18 Piggyback, [place] NaCl 0.9% 00 :00 ONCE, 1 Medical (NS) 100 mL dose, On Bran ch MINI-BAG 09/08/22 at 0315, Administer over 30 Minutes, 100 mL
Reas on for Anti-Infec tive: Documented Infection< br>Documen beth Infection Site: Urine<br&g t;Duration of Therapy: Other (see Comments) iopamidol 3- No [id number] 120mL 120 mL, Univers (ISOVUE 4-08 04-08 [...] Until Discontinu ed, 10 mL cefdinir Yes [id number] 300mg Take 1 Un meri 300 mg 4-08 capsule by ity of capsule 00:00: mouth [place] 00 every 12 Medical (twelve) Branch hours. cefdinir 0 2022- No [id number] 300mg Take 1 U nivers 300 mg 4-08 06-05 capsule by ity of capsule 00:00: 00:00 mouth [place] 00 :00 every 12 Medical (twelve) Branch hours. lamoTRIgine 2021-06 Yes See Memori a 200 mg oral 1-17 Instructio l tablet 20:03: ns, TAKE 1 Dianne nn 00 TABLET BY MOUTH TWICE A DAY^1R1,1R 4, # 60 tab, 3 Refill(s), Pharmacy: [facility], 162.56, cm, 03/13/22 13:29:00 CDT, Height, 80, kg, 03/13/22 13:29:00 CDT, Weight lamoTRIgine 2021-06 Yes See Memori a 200 mg oral 1-17 Instructio l tablet 20:03: ns, TAKE 1 [place]ianne nn 00 TABLET BY MOUTH TWICE A DAY^1R1,1R 4, # 60 tab, 3 Refill(s), Pharmacy: [facility], 162.56, cm, 03/13/22 13:29:00 CDT, Height, 80, kg, 03/13/22 13:29:00 CDT, Weight lamoTRIgine 2021-06 Yes See Memori a 200 mg oral 1-17 Instructio l tablet 20:03: ns, TAKE 1 Dianne nn 00 TABLET BY MOUTH TWICE A DAY^1R1,1R 4, # 60 tab, 3 Refill(s), Pharmacy: [facility], 162.56, cm, 03/13/22 13:29:00 CDT, Height, 80, kg, 03/13/22 13:29:00 CDT, Weight lamoTRIgine 2021-06 Yes See Memori a 200 mg oral 1-17 Instructio l tablet 20:03: ns, TAKE 1 [place]ian[place] nn 00 TABLET BY MOUTH TWICE A DAY^1R1,1R 4, # 60 tab, 3 Refill(s), Pharmacy: [facility], 162.56, cm, 03/13/22 13:29:00 CDT, Height, 80, kg, 03/13/22 13:29:00 CDT, Weight lamoTRIgine 2021-06 Yes See Memori a 200 mg oral 1-17 Instructio l tablet 20:03: ns, TAKE 1 [place] nn 00 TABLET BY MOUTH TWICE A DAY^1R1,1R 4, # 60 tab, 3 Refill(s), Pharmacy: [facility], 162.56, cm, 03/13/22 13:29:00 CDT, Height, 80, kg, 03/13/22 13:29:00 CDT, Weight lamoTRIgine 2021-06 Yes See Memori a 200 mg oral 1-17 Instructio l tablet 20:03: ns, TAKE 1 [place]ian[place] nn 00 TABLET BY MOUTH TWICE A DAY^1R1,1R 4, # 60 tab, 3 Refill(s), Pharmacy: [facility], 162.56, cm, 03/13/22 13:29:00 CDT, Height, 80, kg, 03/13/22 13:29:00 CDT, Weight lamoTRIgine 2021-06 Yes See Memori a 200 mg oral 1-17 Instructio l tablet 20:03: ns, TAKE 1 [place]ian[place] nn 00 TABLET BY MOUTH TWICE A DAY^1R1,1R 4, # 60 tab, 3 Refill(s), Pharmacy: [facility], 162.56, cm, 03/13/22 13:29:00 CDT, Height, 80, kg, 03/13/22 13:29:00 CDT, Weight lamoTRIgine 2021-1 Yes See Memori a 200 mg oral 1-17 Instructio l tablet 20:03: ns, TAKE 1 Dian[place] nn 00 TABLET BY MOUTH TWICE A DAY^1R1,1R 4, # 60 tab, 3 Refill(s), Pharmacy: [facility], 162.56, cm, 03/13/22 13:29:00 CDT, Height, 80, kg, 03/13/22 13:29:00 CDT, Weight lamoTRIgine 2021-0 Yes See Memori a 200 mg oral 8-22 Instructio l tablet 18:34: ns, TAKE Yong 00 ONE (1) TABLET BY MOUTH TWICE DAILY, # 60 tab, 3 Refill(s), Pharmacy: [facility], 165.1, cm, 01/22/22 13:19:00 CDT, Height, 75.682, kg, 01/22/22 13:19:00 CDT, Weight lamoTRIgine 2021-0 Yes See Memori a 200 mg oral 8-22 Instructio l tablet 18:34: ns, TAKE [place] 00 ONE (1) TABLET BY MOUTH TWICE DAILY, # 60 tab, 3 Refill(s), Pharmacy: [facility], 165.1, cm, 01/22/22 13:19:00 CDT, Height, 75.682, kg, 01/22/22 13:19:00 CDT, Weight lamoTRIgine 2021-0 Yes See Memori a 200 mg oral 8-22 Instructio l tablet 18:34: ns, TAKE [place] 00 ONE (1) TABLET BY MOUTH TWICE DAILY, # 60 tab, 3 Refill(s), Pharmacy: [facility], 165.1, cm, 01/22/22 13:19:00 CDT, Height, 75.682, kg, 01/22/22 13:19:00 CDT, Weight lamoTRIgine 2021-0 Yes See Memori a 200 mg oral 8-22 Instructio l tablet 18:34: ns, TAKE [place] 00 ONE (1) TABLET BY MOUTH TWICE DAILY, # 60 tab, 3 Refill(s), Pharmacy: [facility], 165.1, cm, 01/22/22 13:19:00 CDT, Height, 75.682, kg, 01/22/22 13:19:00 CDT, Weight lamoTRIgine 2021-0 Yes See Memori a 200 mg oral 8-22 Instructio l tablet 18:34: ns, TAKE [place] 00 ONE (1) TABLET BY MOUTH TWICE DAILY, # 60 tab, 3 Refill(s), Pharmacy: [facility], 165.1, cm, 01/22/22 13:19:00 CDT, Height, 75.682, kg, 01/22/22 13:19:00 CDT, Weight lamoTRIgine 2021-0 Yes See Memori a 200 mg oral 8-22 Instructio l tablet 18:34: ns, TAKE [place] 00 ONE (1) TABLET BY MOUTH TWICE DAILY, # 60 tab, 3 Refill(s), Pharmacy: [facility], 165.1, cm, 01/22/22 13:19:00 CDT, Height, 75.682, kg, 01/22/22 13:19:00 CDT, Weight lamoTRIgine 2021-0 Yes See Memori a 200 mg oral 8-22 Instructio l tablet 18:34: ns, TAKE [place] 00 ONE (1) TABLET BY MOUTH TWICE DAILY, # 60 tab, 3 Refill(s), Pharmacy: [facility], 165.1, cm, 01/22/22 13:19:00 CDT, Height, 75.682, kg, 01/22/22 13:19:00 CDT, Weight lamoTRIgine 2021-0 Yes See Memori a 200 mg oral 8-22 Instructio l tablet 18:34: ns, TAKE [place] 00 ONE (1) TABLET BY MOUTH TWICE DAILY, # 60 tab, 3 Refill(s), Pharmacy: [facility], 165.1, cm, 01/22/22 13:19:00 CDT, Height, 75.682, kg, 01/22/22 13:19:00 CDT, Weight rosuvastati 2021-0 Yes 0 Memori a n 5 mg oral 8-22 Refill(s) l tablet 18:31: rosuvastati 2021-0 Yes 0 Memori a n 5 mg oral 8-22 Refill(s) l tablet 18:31: rosuvastati 2021-0 Yes 0 Memori a n 5 mg oral 8-22 Refill(s) l tablet 18:31: rosuvastati 2-0 Yes 0 Memori a n 5 mg [...] mg oral 8-22 Refill(s) l tablet 18:31: pioglitazon 2021-0 Yes 0 Memori a e [...] l oral tablet 18:20: Guille n pioglitazon 2-0 Yes 0 Memori a e 30 mg 8-22 Refill(s) l oral tablet 18:20: Guille pioglitazon 2021-0 Yes 0 Memori a e 30 mg 8-22 Refill(s) l oral tablet 18:20: Guille n pioglitazon 2021-0 Yes 0 Memori a e 30 mg 8-22 Refill(s) l oral tablet 18:20: Guille n pioglitazon Yes 0 Memori a e 30 mg - Refill(s) l oral tablet 18:20: Guille n 00 lisinopriL 2021- No [id number] 5mg Take 1 Univers 5 mg tablet 8-17 11-16 tablet by it y of 00:00: 05:59 mouth in [place] 00 :00 the [facility] for 90 days. lisinopriL 2021-0 2021- No [id number] 5mg Take 1 Univers 5 mg tablet 8-17 11-16 tablet by it y of 00:00: 05:59 mouth in [place] 00 :00 the [facility] for 90 days. lisinopriL 2021-0 2021- No [id number] 5mg Take 1 Univers 5 mg tablet 8-17 11-16 tablet by it y of 00:00: 05:59 mouth in [place] 00 :00 the [facility] for 90 days. lisinopriL 2021-0 2021- No [id number] 5mg Take 1 Univers 5 mg tablet 8-17 11-16 tablet by it y of 00:00: 05:59 mouth in [place] 00 :00 [facility] for 90 days. lisinopriL 2021-0 2021- No [id number] 5mg Take 1 Univers 5 mg tablet 8-17 11-16 tablet by it y of 00:00: 05:59 mouth in [place] 00 :00 [facility] for 90 days. lisinopriL 2021-0 2021- No [id number] 5mg Take 1 Univers 5 mg tablet 8-17 11-16 tablet by it y of 00:00: 05:59 mouth in [place] 00 :00 [facility] for 90 days. lisinopriL 2021-0 2021- No [id number] 5mg Take 1 Univers 5 mg tablet 8-17 11-16 tablet by it y of 00:00: 05:59 mouth in [place] 00 :00 [facility] for 90 days. lisinopriL 2021-0 Yes 5mg 5 mg, Univer s (PRINIVIL,Z 8-16 Oral, ity of ESTRIL) 15:00: DAILY, [place] tablet 5 mg 00 First dose Me dical on [facility] Branch 01/16/22 at 1000, Until Discontinu ed, Routine cefTRIAXone 0 2021- No 1000mg 1,000 mg, Univers (ROCEPHIN) 01-16 0818 Intravenou it y of 1,000 mg in 14:15: 14:14 s, Q24H [place] NaCl 0.9% 00 :00 ABX, 2 Medical (NS) 50 mL doses, [place] MINI-BAG First dose on Sat01/16/22 at 0915, Last dose on Sat01/17/22 at 0915, Administer over 30 Minutes, 50 mL
Reas on for Anti-Infec tive: Empiric Therapy for Suspected Infection< br>Empiric Therapy Site: Urine
D uration of therapy: 72 hours lamoTRIgine 0 Yes 200mg 200 mg, Un meri (LAMICTAL) 16 Oral, BID, ity of tablet 200 13:00: First dose [place] mg 00 on [facility] 01/16/22 at Branch 0800, Until Discontinu ed, Routine gabapentin 0 Yes 300mg 300 mg, Uni vers (NEURONTIN) 16 Oral, TID, it y of capsule 300 13:00: First dose [place] mg 00 on [facility] 01/16/22 at Branch 0800, Until Discontinu ed, Routine pramipexole 0 Yes 2mg 2 mg, Unive rs (MIRAPEX) 16 Oral, TID, ity of tablet 2 mg 02:30: First dose [place] 00 (after Medical last Branch modificati on) on Sat01/15/22 at 2130, Until Discontinu ed rosuvastati 0 Yes 5mg 5 mg, Unive rs n (CRESTOR) -16 Oral, QHS, it y of tablet 5 mg 02:00: First dose [place] 00 on [facility] 01/15/22 at Branch 2100, Until Discontinu ed, Routine apixaban 2021-0 Yes 5mg 5 mg, Univers (ELIQUIS) 8-16 Oral, BID, ity of tablet 5 mg 01:00: First dose [place] 00 on [facility] 01/15/22 at Branch 2000, Until Discontinu ed, Routine
Indicatio ns: DVT/PE famotidine 2021-0 Yes 20mg 20 mg, Unive rs (PEPCID AC) 8-16 Oral, BID, it y of tablet 20 01:00: First dose [place] mg 00 on Sat [facility] 01/15/22 at [place] 1999, Until Discontinu ed, Routine Insulin 0 Yes [id number] 5U inject 5 Un meri Glargine 8-16 Units ity of (BASAGLAR 00:00: under the [place] as KWIKPEN 00 skin in Medical U-100 the [place] INSULIN) morning. 100 unit/mL (3 mL) injection Insulin 0 Yes [id number] 5U inject 5 Un meri Glargine 8-16 Units ity of (BASAGLAR 00:00: under the [place] as KWIKPEN 00 skin in Medical U-100 the [place] INSULIN) morning. 100 unit/mL (3 mL) injection Insulin Yes [id number] 5U inject 5 Un meri Glargine 8-16 Units ity of (BASAGLAR 00:00: under the [place] as KWIKPEN 00 skin in Medical U-100 the [place] INSULIN) morning. 100 unit/mL (3 mL) injection Insulin Yes [id number] 5U inject 5 Un meri Glargine 8-16 Units ity of (BASAGLAR 00:00: under the [place] as KWIKPEN 00 skin in Medical U-100 the [place] INSULIN) morning. 100 unit/mL (3 mL) injection Insulin 0 Yes [id number] 5U inject 5 Un meri Glargine 8-16 Units ity of (BASAGLAR 00:00: under the [place] as KWIKPEN 00 skin in Medical U-100 the [place] INSULIN) morning. 100 unit/mL (3 mL) injection Insulin 0 Yes [id number] 5U inject 5 Un meri Glargine 8-16 Units ity of (BASAGLAR 00:00: under the [place] as KWIKPEN 00 skin in Medical U-100 the [place] INSULIN) morning. 100 unit/mL (3 mL) injection Insulin 0 Yes [id number] 5U inject 5 Un meri Glargine 8-16 Units ity of (BASAGLAR 00:00: under the [place] as KWIKPEN 00 skin in Medical U-100 the [place] INSULIN) morning. 100 unit/mL (3 mL) injection Insulin Yes [id number] 5U inject 5 Un meri Glargine 8-16 Units ity of (BASAGLAR 00:00: under the [place] as KWIKPEN 00 skin in Medical U-100 the Branch INSULIN) morning. 100 unit/mL (3 mL) injection Insulin Yes [id number] 5U inject 5 Un meri Glargine 8-16 Units ity of (BASAGLAR 00:00: under the [place] as KWIKPEN 00 skin in Medical U-100 the Branch INSULIN) morning. 100 unit/mL (3 mL) injection Insulin Yes [id number] 5U inject 5 Un meri Glargine 8-16 Units ity of (BASAGLAR 00:00: under the [place] as KWIKPEN 00 skin in Medical U-100 the Branch INSULIN) morning. 100 unit/mL (3 mL) injection Insulin Yes [id number] 5U inject 5 Un meri Glargine 8-16 Units ity of (BASAGLAR 00:00: under the [place] as KWIKPEN 00 skin in Medical U-100 the Branch INSULIN) morning. 100 unit/mL (3 mL) injection Insulin Yes [id number] 5U inject 5 Un meri Glargine 8-16 Units ity of (BASAGLAR 00:00: under the [place] as KWIKPEN 00 skin in Medical U-100 the Branch INSULIN) morning. 100 unit/mL (3 mL) injection rosuvastati 2021- No [id number] 5mg Take 1 Univers n 5 mg 8-16 11-15 tablet by ity of tablet 00:00: 05:59 mouth at [place] 00 :00 bedtime Medical for 90 Branch days. pioglitazon 2021- No [id number] 30mg Take 1 Univers e 30 mg 8-16 11-15 tablet by ity of tablet 00:00: 05:59 mouth in [place] 00 :00 the [facility] morning Branch for 90 days. rosuvastati 2021- No [id number] 5mg Take 1 Univers n 5 mg 8-16 11-15 tablet by ity of tablet 00:00: 05:59 mouth at [place] 00 :00 bedtime Medical for 90 Branch days. pioglitazon No [id number] 30mg Take 1 Univers e 30 mg 8-16 11-15 tablet by ity of tablet 00:00: 05:59 mouth in [place] 00 :00 the Medical morning Branch for 90 days. rosuvastati No [id number] 5mg Take 1 Univers n 5 mg 8-16 11-15 tablet by ity of tablet 00:00: 05:59 mouth at [place] 00 :00 bedtime Medical for 90 Branch days. pioglitazon No [id number] 30mg Take 1 Univers e 30 mg 8-16 11-15 tablet by ity of tablet 00:00: 05:59 mouth in [place] 00 :00 the Medical morning Branch for 90 days. rosuvastati No [id number] 5mg Take 1 Univers n 5 mg 8-16 11-15 tablet by ity of tablet 00:00: 05:59 mouth at [place] 00 :00 bedtime Medical for 90 Branch days. pioglitazon No [id number] 30mg Take 1 Univers e 30 mg 8-16 11-15 tablet by ity of tablet 00:00: 05:59 mouth in [place] 00 :00 the Medical morning Branch for 90 days. rosuvastati No [id number] 5mg Take 1 Univers n 5 mg 8-16 11-15 tablet by ity of tablet 00:00: 05:59 mouth at [place] 00 :00 bedtime Medical for 90 Branch days. pioglitazon No [id number] 30mg Take 1 Univers e 30 mg 8-16 11-15 tablet by ity of tablet 00:00: 05:59 mouth in [place] 00 :00 the Medical morning Branch for 90 days. rosuvastati 2021- No [id number] 5mg Take 1 Univers n 5 mg 8-16 11-15 tablet by ity of tablet 00:00: 05:59 mouth at [place] 00 :00 bedtime Medical for 90 Branch days. pioglitazon 2021- No [id number] 30mg Take 1 Univers e 30 mg 8-16 11-15 tablet by ity of tablet 00:00: 05:59 mouth in [place] 00 :00 the Medical morning Branch for 90 days. rosuvastati 2021- No [id number] 5mg Take 1 Univers n 5 mg 8-16 -15 tablet by ity of tablet 00:00: 05:59 mouth at [place] 00 :00 bedtime Medical for 90 Branch days. pioglitazon 2021- No [id number] 30mg Take 1 Univers e 30 mg 8-16 11-15 tablet by ity of tablet 00:00: 05:59 mouth in [place] 00 :00 the [facility] for 90 days. sulfamethox 2021- No [id number] 1{tbl} Take 1 Univers azole-trime 8-16 -22 tablet by it y of thoprim 00:00: 04:59 mouth in [place] (BACTRIM 00 :00 the Medical DS) 800-160 morning Branc h mg per and 1 tablet tablet in the evening. Do all this for 5 days. sulfamethox 2021- No [id number] 1{tbl} Take 1 Univers azole-trime 8-16 -22 tablet by it y of thoprim 00:00: 04:59 mouth in [place] (BACTRIM 00 :00 the Medical DS) 800-160 morning Branc h mg per and 1 tablet tablet in the evening. Do all this for 5 days. pioglitazon 2021- No [id number] 30mg Take 2 Univers e 15 mg 8-16 -16 tablets by ity o f tablet 00:00: 00:00 mouth in [place] 00 :00 the [facility] for 90 days. diphenhydrA Yes 25mg 25 mg, Univ ers MINE 8-15 Oral, PRN, ity of (BENADRYL) 23:58: 1 dose, [place] tablet 25 24 Starting Medica l mg on Sat01/15/22 at 1858, Until Discontinu ed, Routine, before MRI Sliding Yes Subcutaneo [facility] ers Scale 8-15 us, TID ity of [...] or DBP > 110 iopamidol 2021- No [id number] 100mL 100 mL, Univers (ISOVUE 01-15 08-15 [...] 23 INSTRUCT Medical NS, Branch Starting on Sat01/15/22 at 1138, Until Discontinu ed, 10 mL COVID-19 2021- No .25mL 0.25 mL, Uni vers vaccine, Intramuscu i ty [facility] A-PF 17:00[facility] ONCE-PRIOR Medi corby EUA) (LOW TO Branch DOSE DISCHARGE, BOOSTER) 1 dose, 100 mcg/0.5 Starting mL on Sat injection 09/23/21 at 0.25 mL 1200, Until Discontinu ed, DAKOTAH, Give vaccine prior to discharge< br>Is this a third dose for an immunocomp romised patient? No
Mix and Match Vaccine? Booster sulfur 2021- No [id number] 5mL 5 mL, Unive rs hexafluorid 09-23 Intravenou i ty of e microsphr 16:00: 16:00 s, ONCE, 1 [place] (LUMASON) 00 :00 dose, On Medica l injection 5 Sat Branch mL 09/23/21 at 1100, Routine
count team member approving Restricted medication : CORDELL FIELDS enoxaparin Yes 1mg/kg 80 mg Univ ers (LOVENOX) 09-23 (rounded ity of injection 01:00: from 75.8 [place] as 80 mg 00 mg = 1 Medical mg/kg Branch ?75.8 kg), Subcutaneo , Q12H, First dose on Sat09/22/21 at 2000, Until Discontinu ed, Routine apixaban 5 2021-0 Yes 1477 5mg Take [...] kg), Subcutaneo us, ONCE, 1 dose, On 09/22/21 at 0745, DAKOTAH iopamidol 2021- No [id number] 100mL 100 mL, Univers (ISOVUE 09-22 Intravenou ity o f 370-500 mL) 11:45: 10:42 s, ONCE, 1 [place] injection 00 :00 dose, On Medica l 100 mL Fri Branch 09/22/21 at 0645, Routine rosuvastati Yes Q.[id number] Take by Methodi n calcium 3-15 [id number] mouth 3 s t (ROSUVASTAT 18:16: 3W (three) Hos preeti IN ORAL) 00 times a l week. Pt doesn't remember the dosage insulin Yes 18U QD Inject 18 Metho di GLARGINE 3-[address] (Basaglar 18:16: under the Hos preeti KwikPen 00 skin l U-100 nightly. Insulin) 100 unit/mL injection (pen) apixaban Yes 5mg Q.5D Take 5 mg Meth ebenezer (ELIQUIS) 5 3-[address] mg tablet 18:16: (two) Hospita 00 times a l day. ferrous Yes 325mg QD Take 325 Metho di sulfate 325 3-[address] (65 FE) MG 18:16: mouth Hospit a tablet 00 daily with l breakfast. rosuvastati Yes Q.26169025 Take by Methodi n calcium 3-15 [id number] mouth 3 s t (ROSUVASTAT 18:16: 3W (three) Hos preeti IN ORAL) 00 times a l week. Pt doesn't remember the dosage insulin Yes 18U QD Inject 18 Metho [...] daily with l breakfast. rosuvastati 2022-0 Yes Q.50090261 Take by Methodi n calcium 3-15 [id number] mouth 3 s t (ROSUVASTAT 18:16: 3W (three) Hos preeti IN ORAL) 00 times a l week. Pt doesn't remember the dosage ferrous 2022-0 Yes 325mg QD Take 325 Metho di sulfate 325 3-[address] (65 FE) MG 18:16: mouth Hospit a tablet 00 daily with l breakfast. rosuvastati 2022-0 Yes Q.63390282 Take by Methodi n calcium 3-15 [id number] mouth 3 s t (ROSUVASTAT 18:16: 3W (three) Hos preeti IN ORAL) 00 times a l week. Pt doesn't remember the dosage insulin 2022-0 Yes 18U QD Inject 18 [...] daily with l breakfast. rosuvastati 2021-0 Yes Q.[id number] Take by Methodi n calcium 3-15 [id number] mouth 3 s t (ROSUVASTAT 18:16: 3W [...] a tablet 00 daily with l breakfast. rOPINIRole 2021-0 Yes 2mg Q.68423027 Take 2 mg Methodi (REQUIP) 1 3-14 [id number] mouth [address] MG tablet 19:14: 3D (three) Hospi ta 05 times a l day. gabapentin 2021-0 Yes 600mg Q.[id number] Take 600 Methodi (NEURONTIN) 3-14 [id number] mg by s t 300 mg 19:14: [...] times a day. rOPINIRole 2022-0 Yes 2mg Q.[id number] Take 2 mg Methodi (REQUIP) 1 3-14 [id number] mouth [address] MG tablet 19:14: 3D (three) Hospi ta 05 times a l day. gabapentin 2022-0 Yes 600mg Q.[id number] Take 600 Methodi (NEURONTIN) 3-14 [id number] mg by s t 300 mg 19:14: [...] times a day. rOPINIRole 2022-0 Yes 2mg Q.[id number] Take 2 mg Methodi (REQUIP) 1 3-14 [id number] mouth [address] MG tablet 19:14: 3D (three) Hospi ta 05 times a l day. gabapentin 2022-0 Yes 600mg Q.03092393 Take 600 Methodi (NEURONTIN) 3-14 [id number] mg by s t 300 mg 19:14: [...] times a day. rOPINIRole 2022-0 Yes 2mg Q.11920911 Take 2 mg Methodi (REQUIP) 1 3-14 [id number] mouth [address] MG tablet 19:14: 3D (three) Hospi ta 05 times a l day. gabapentin 2022-0 Yes 600mg Q.[id number] Take 600 Methodi (NEURONTIN) 3-14 [id number] mg by s t 300 mg 19:14: [...] times a day. rOPINIRole 2022-0 Yes 2mg Q.[id number] Take 2 mg Methodi (REQUIP) 1 3-14 [id number] mouth [address] MG tablet 19:14: 3D (three) Hospi ta 05 times a l day. 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, Weight lamoTRIgine 2021-0 Yes See Memori a 200 mg oral 3-09 Instructio l tablet 18:22: ns, TAKE [place] 00 ONE (1) TABLET BY MOUTH TWICE DAILY, # 60 tab, 3 Refill(s), Pharmacy: [facility], 165.1, cm, 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, Height, 76.818, kg, 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, Weight lamoTRIgine 2021-0 Yes See Memori a 200 mg oral 3-09 Instructio l tablet 18:22: ns, TAKE [place] 00 ONE (1) TABLET BY MOUTH TWICE DAILY, # 60 tab, 3 Refill(s), Pharmacy: [facility], 165.1, cm, 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, Height, 76.818, kg, 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, Weight lamoTRIgine 2-0 Yes See Memori a 200 mg oral 3-09 Instructio l tablet 18:22: ns, TAKE [place] 00 ONE (1) TABLET BY MOUTH TWICE DAILY, # 60 tab, 3 Refill(s), Pharmacy: [facility], 165.1, cm, 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, Height, 76.818, kg, 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, Weight lamoTRIgine 2-0 Yes See Memori a 200 mg oral 3-09 Instructio l tablet 18:22: ns, TAKE [place] 00 ONE (1) TABLET BY MOUTH TWICE DAILY, # 60 tab, 3 Refill(s), Pharmacy: [facility], 165.1, cm, 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, Height, 76.818, kg, 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, Weight lamoTRIgine 2021-0 Yes See Memori a 200 mg oral 3-09 Instructio l tablet 18:22: ns, TAKE [place] 00 ONE (1) TABLET BY MOUTH TWICE DAILY, # 60 tab, 3 Refill(s), Pharmacy: [facility], 165.1, cm, 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, Height, 76.818, kg, 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, Weight lamoTRIgine 2021-0 Yes See Memori a 200 mg oral 3-09 Instructio l tablet 18:22: ns, TAKE [place] 00 ONE (1) TABLET BY MOUTH TWICE DAILY, # 60 tab, 3 Refill(s), Pharmacy: [facility], 165.1, cm, 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, Height, 76.818, kg, 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, Weight lamoTRIgine 2021-0 Yes See Memori a 200 mg oral 3-09 Instructio l tablet 18:22: ns, TAKE [place] 00 ONE (1) TABLET BY MOUTH TWICE DAILY, # 60 tab, 3 Refill(s), Pharmacy: [facility], 165.1, cm, 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, Height, 76.818, kg, 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, Weight lamotrigine 2020-06 Yes = 1 tab, Me moria 200 MG Oral 0-13 PO, BID, # l Tablet 22:55: 60 tab, 3 [place] n 00 Refill(s), Pharmacy: [facility], 162.56, cm, 02/08/21 14:52:00 CDT, Height, 82.727, kg, 02/08/21 14:52:00 CDT, Weight lamotrigine 2020-06 Yes = 1 tab, Me moria 200 MG Oral 0-13 PO, BID, # l Tablet 22:55: 60 tab, 3 [place] n 00 Refill(s), Pharmacy: [facility], 162.56, cm, 02/08/21 14:52:00 CDT, Height, 82.727, kg, 02/08/21 14:52:00 CDT, Weight lamotrigine 2020-06 Yes = 1 tab, Me moria 200 MG Oral 0-13 PO, BID, # l Tablet 22:55: 60 tab, 3 [place] 00 Refill(s), Pharmacy: [facility], 162.56, cm, 02/08/21 14:52:00 CDT, Height, 82.727, kg, 02/08/21 14:52:00 CDT, Weight lamotrigine 2020-06 Yes = 1 tab, Me moria 200 MG Oral 0-13 PO, BID, # l Tablet 22:55: 60 tab, 3 [place] 00 Refill(s), Pharmacy: [facility], 162.56, cm, 02/08/21 14:52:00 CDT, Height, 82.727, kg, 02/08/21 14:52:00 CDT, Weight lamotrigine 2020-06 Yes = 1 tab, Me moria 200 MG Oral 0-13 PO, BID, # l Tablet 22:55: 60 tab, 3 [place] 00 Refill(s), Pharmacy: [facility], 162.56, cm, 02/08/21 14:52:00 CDT, Height, 82.727, kg, 02/08/21 14:52:00 CDT, Weight lamotrigine 2020-06 Yes = 1 tab, Me moria 200 MG Oral 0-13 PO, BID, # l Tablet 22:55: 60 tab, 3 [place] 00 Refill(s), Pharmacy: [facility], 162.56, cm, 02/08/21 14:52:00 CDT, Height, 82.727, kg, 02/08/21 14:52:00 CDT, Weight lamotrigine 2020-06 Yes = 1 tab, Me moria 200 MG Oral 0-13 PO, BID, # l Tablet 22:55: 60 tab, 3 [place] 00 Refill(s), Pharmacy: [facility], 162.56, cm, 02/08/21 14:52:00 CDT, Height, 82.727, kg, 02/08/21 14:52:00 CDT, Weight lamotrigine 2020-06 Yes = 1 tab, Me moria 200 MG Oral 0-13 PO, BID, # l Tablet 22:55: 60 tab, 3 [place] 00 Refill(s), Pharmacy: [facility], 162.56, cm, 02/08/21 14:52:00 CDT, Height, 82.727, kg, 02/08/21 14:52:00 CDT, Weight apixaban 5 2020-0 Yes 5 mg, PO, Me moria MG Oral 02-08 Q12H, tab, l Tablet 20:15: 3 [place] [Eliquis] 00 Refill(s) Eliquis 5 2020-0 Yes 5 mg, PO, Mem oria mg oral 02-08 Q12H, tab, l tablet 20:15: 3 [place] 00 Refill(s) apixaban 5 2020-0 Yes 5 [...] 02-08 Q12H, tab, l Tablet 20:15: 3 [place] [Eliquis] 00 Refill(s) Eliquis 5 2020-0 Yes 5 mg, PO, Mem oria mg oral 02-08 Q12H, tab, l tablet 20:15: 3 [place] 00 Refill(s) apixaban 5 2020-0 Yes 5 mg, PO, Me moria MG Oral 02-08 Q12H, tab, l Tablet 20:15: 3 [place] [Eliquis] 00 Refill(s) Eliquis 5 2020-0 Yes 5 mg, PO, Mem oria mg oral 02-08 Q12H, tab, l tablet 20:15: 3 [place] 00 Refill(s) apixaban 5 2020-0 Yes 5 mg, PO, Me moria MG Oral 02-08 Q12H, tab, l Tablet 20:15: 3 [place] [Eliquis] 00 Refill(s) Eliquis 5 2020-0 Yes 5 mg, PO, Mem oria mg oral 02-08 Q12H, tab, l tablet 20:15: 3 [place] 00 Refill(s) apixaban 5 2020-0 Yes 5 mg, PO, Me moria MG Oral 02-08 Q12H, tab, l Tablet 20:15: 3 [place] [Eliquis] 00 Refill(s) Eliquis 5 2020-0 Yes 5 mg, PO, Mem oria mg oral 02-08 Q12H, tab, l tablet 20:15: 3 [place] 00 Refill(s) apixaban 5 2020-0 Yes 5 mg, PO, Me moria MG Oral 02-08 Q12H, tab, l Tablet 20:15: 3 [place] [Eliquis] 00 Refill(s) Eliquis 5 2020-0 Yes 5 mg, PO, Mem oria mg oral 02-08 Q12H, tab, l tablet 20:15: 3 [place] 00 Refill(s) lactobacill 0 Yes .5mg 0.5 mg, Uni vers us 8-24 Oral, BID, ity of acidophilus 13:00: First dose [place] tablet 0.5 00 on e Medical mg 01/24/21 at Branch 0800, Until Discontinu ed, Routine amoxicillin 2020-0 Yes 500mg 500 mg, Un meri -pot 8-24 Oral, TID, ity of clavulanate 13:00: First dose [place] 500 mg 00 on [facility] (AUGMENTIN 01/24/21 at [facility] 500) 0800, 500-125 mg Until tablet 500 Discontinu mg ed, DAKOTAH
Re ason for Anti-Infec tive: Empiric Therapy for Suspected Infection< br>Empiric Therapy Site: Urine
D uration of therapy: 7 days lactobacill Yes .5mg 0.5 mg, Uni vers us 8-24 Oral, BID, ity of acidophilus 13:00: First dose [place] tablet 0.5 00 on [facility] Medical mg 01/24/21 at Branch 0800, Until Discontinu ed, Routine amoxicillin 2020-0 Yes 500mg 500 mg, Un meri -pot 8-24 Oral, TID, ity of clavulanate 13:00: First dose [place] 500 mg 00 on [facility] (AUGMENTIN 01/24/21 at [facility] 500) 0800, 500-125 mg Until tablet 500 Discontinu mg ed, DAKOTAH
Re ason for Anti-Infec tive: Empiric Therapy for Suspected Infection< br>Empiric Therapy Site: Urine
D uration of therapy: 7 days lactobacill 2020- No [id number] .5mg Take 1 [facility] [place] [facility] us 01-24-24 tablet by ity of acidophilus 00:00: 04:59 mouth 2 [place] 00 :00 (two) Medical times Branch daily for 30 days. lactobacill 2020- No [id number] .5mg Take 1 Univers us 8-24 tablet by ity of acidophilus 00:00: 04:59 mouth 2 [place] 00 :00 (two) Medical times Branch daily for 30 days. lactobacill 2020- No [id number] .5mg Take 1 [facility] 01-2424 tablet by ity of acidophilus 00:00: 04:59 mouth 2 [place] 00 :00 (two) Medical times Branch daily for 30 days. lactobacill 2020- No [id number] .5mg Take 1 [facility] 01-24 tablet by ity of acidophilus 00:00: 04:59 mouth 2 [place] 00 :00 (two) Medical times Branch daily for 30 days. lactobacill No [id number] .5mg Take 1 [facility] 01-24 tablet by ity of acidophilus 00:00: 04:59 mouth 2 [place] 00 :00 (two) Medical times Branch daily for 30 days. lactobacill No [id number] .5mg Take 1 [facility] 01-24 tablet by ity of acidophilus 00:00: 04:59 mouth 2 [place] 00 :00 (two) Medical times Branch daily for 30 days. amoxicillin No [id number] 500mg Take 1 Univers -pot 01-24- tablet by ity of clavulanate 00:00: 04:59 mouth 3 [place] 500 mg 00 :00 (three) Medical 500-125 mg times Branch tablet daily for 10 days. amoxicillin 2020- No [id number] 500mg Take 1 Univers -pot 01-24- tablet by ity of clavulanate 00:00: 04:59 mouth 3 [place] 500 mg 00 :00 (three) Medical 500-125 mg times Branch tablet daily for 10 days. amoxicillin No [id number] 500mg Take 1 Univers -pot 01-24- tablet by ity of clavulanate 00:00: 04:59 mouth 3 [place] 500 mg 00 :00 (three) Medical 500-125 mg times Branch tablet daily for 10 days. amoxicillin No [id number] 500mg Take 1 Univers -pot 01-24- tablet by ity of clavulanate 00:00: 04:59 mouth 3 [place] 500 mg 00 :00 (three) Medical 500-125 mg times Branch tablet daily for 10 days. Sliding Yes Subcutaneo Univ ers Scale - us, TID ity of Insulin - 17:00: MEALS+HS, [place] as Lispro 00 First dose Medical (HumaLOG) + on [facility] 01/21/21 at Testing 1200, Until Discontinu ed, Routine Sliding 0 Yes Subcutaneo Univ ers Scale - , TID ity of Insulin - 17:00: MEALS+HS, [place] Lispro 00 First dose Medical (HumaLOG) + on [facility] 01/21/21 at Testing 1200, Until Discontinu ed, Routine iopamidol 202- No [id number] 100mL 100 mL, Univers (ISOVUE 01-21 Intravenou ity o f 370-500 mL) 16:45: 15:22 s, ONCE, 1 [place] injection 00 :00 dose, Sat Medic al 100 mL 01/21/21 at Branch 1145, Routine iopamidol 2020- No [id number] 100mL 100 mL, Univers (ISOVUE 01-21 Intravenou ity o f 370-500 mL) 16:45: 15:22 s, ONCE, 1 [place] injection 00 :00 dose, Sat Medic al 100 mL 01/21/21 at Branch 1145, Routine rOPINIRole Yes 2mg 2 mg, Univer s (REQUIP) 01-21 Oral, TID, ity o f tablet 2 mg 15:30: First dose on [facility] 01/21/21 at Branch 1030, Until Discontinu ed, Routine rOPINIRole Yes 2mg 2 mg, Univer s (REQUIP) 01-21 Oral, TID, ity o f tablet 2 mg 15:30: First dose [place] on [facility] 01/21/21 at Branch 1030, Until Discontinu ed, Routine citalopram 0 Yes 40mg 40 mg, Unive rs (CELEXA) 01-21 Oral, ity of tablet 40 14:00: DAILY, [place] mg 00 First dose Medical on [facility] 01/21/21 at 0900, Until Discontinu ed, Routine citalopram Yes 40mg 40 mg, Unive rs (CELEXA) 01-21 Oral, ity of tablet 40 14:00: DAILY, [place] mg 00 First dose Medical on [facility] Branch 01/21/21 at 0900, Until Discontinu ed, [...]
D uration of therapy: 7 days lamoTRIgine Yes 200mg 200 mg, Un meri (LAMICTAL) 01-21 Oral, BID, ity of tablet 200 13:00: First dose [place] mg 00 on [facility] 01/21/21 at Branch 0800, Until Discontinu ed, Routine gabapentin Yes 600mg 600 mg, Uni vers (NEURONTIN) 01-21 Oral, TID, it y of capsule 600 13:00: First dose [place] mg 00 on [facility] 01/21/21 at Branch 0800, Until Discontinu ed, Routine apixaban Yes 1477 5mg 5 mg, Univers (ELIQUIS) 01-21 Oral, BID, ity of tablet 5 mg 13:00: First dose [place] 00 on [facility] 01/21/21 at Branch 0800, Until Discontinu ed, Routine lamoTRIgine 2020-0 Yes 200mg 200 mg, Un meri (LAMICTAL) 8 Oral, BID, ity of tablet 200 13:00: First dose [place] mg 00 on [facility] 01/21/21 at Branch 0800, Until Discontinu ed, Routine gabapentin 2020-0 Yes 600mg 600 mg, Uni vers (NEURONTIN) 8 Oral, TID, it y of capsule 600 13:00: First dose [place] mg 00 on [facility] 01/21/21 at Branch 0800, Until Discontinu ed, Routine apixaban 2020-0 Yes 1477 5mg 5 mg, Univers (ELIQUIS) 01-21 Oral, BID, ity of tablet 5 mg 13:00: First dose 00 on [facility] 01/21/21 at Branch 0800, Until Discontinu ed, Routine glipiZIDE 2020-0 Yes 10mg 10 mg, Univer s (GLUCOTROL) 01-21 Oral, ity of tablet 10 12:30: BIDAC, [place] mg 00 First dose Medical on [facility] 01/21/21 at 0730, Until Discontinu ed, Routine glipiZIDE 2020-0 Yes 10mg 10 mg, Univer s (GLUCOTROL) 01-21 Oral, ity of tablet 10 12:30: BIDAC, [place] mg 00 First dose Medical on [facility] 01/21/21 at 0730, Until Discontinu ed, Routine meclizine 2020-0 Yes 25mg 25 mg, Univer s (TRAVEL-EAS 01-21 Oral, ity of E 12:23: TIDPRN, [place] (MECLIZINE) 00 Starting Medi [place] ) tablet 25 Sat Branch mg 01/21/21 at 0723, Until Discontinu ed, Routine, Dizziness meclizine 2020-0 Yes 25mg 25 mg, Univer s (TRAVEL-EAS 01-21 Oral, ity of E 12:23: TIDPRN, [place] (MECLIZINE) 00 Starting Medi [place] ) tablet 25 Sat Branch mg 01/21/21 at 0723, Until Discontinu ed, Routine, Dizziness ondansetron 2020-0 Yes 4mg 4 mg, Slow Univers (ZOFRAN 01-21 IV Push, ity of (PF)) 07:03: Q6HPRN, [place] injection 4 50 Starting Medi [place] mg Sat Branch 01/21/21 at 0203, Until Discontinu ed, Routine, Nausea and Vomiting (N/V) ondansetron 202-0 Yes 4mg 4 mg, Slow Univers (ZOFRAN 01-21 IV Push, ity of (PF)) 07:03: Q6HPRN, [place] injection 4 50 Starting Medi [place] mg Sat Branch 01/21/21 at 0203, Until Discontinu ed, Routine, Nausea and Vomiting (N/V) acetaminoph 202-0 Yes 650mg 650 mg, Un meri en 01-21 Oral, ity of (TYLENOL) 07:03: Q6HPRN, [place] tablet 650 31 Starting Medic al mg Sat Branch 01/21/21 at 0203, Until Discontinu ed, Routine, Pain (scale 1-3) acetaminoph 2021-0 Yes 650mg 650 mg, Un meri en 01-21 Oral, ity of (TYLENOL) 07:03: Q6HPRN, [place] tablet 650 31 Starting Medic al mg Sat Branch 01/21/21 at 0203, Until Discontinu ed, Routine, Pain (scale 1-3) NaCl 0.9% 0 2020- No 1000mL at 125 Uni vers [...] 2245, Until 01/22/21 at 1657, Routine cefTRIAXone 2020-2020- No 1000mg 1,000 mg, Univers (ROCEPHIN) 01-21 IV ity of 1,000 mg in 03:45: 03:33 Piggyback, [place] NaCl 0.9% 00 :00 ONCE, 1 Medical [...] Therapy: Other (see Comments) iopamidol 2020- No [id number] 100mL 100 mL, Univers (ISOVUE 01-21 Intravenou ity o f 370-500 mL) 01:45: 00:40 s, ONCE, 1 [place] injection 00 :00 dose, Fri Medic al 100 mL 01/20/21 at Branch 2044, Routine iopamidol 2020- No [id number] 100mL 100 mL, Univers (ISOVUE 01-21 Intravenou ity o f 370-500 mL) 01:45: 00:40 s, ONCE, 1 [place] injection 00 :00 dose, Fri Medic al 100 mL 01/20/21 at Branch 2044, Routine NaCl 0.9% 2020- No 500mL at 999 Univ ers (NS) bolus 01-21 mL/hr, 500 it y of infusion 01:09: 01:31 mL, IV [place] 500 mL 00 :00 Infusion, Medical ONCE, 1 Branch dose, Sat01/20/21 at 2015, STAT NaCl 0.9% 0 2020- No 500mL at 999 Univ ers (NS) bolus 01-21 mL/hr, 500 it y of infusion 01:09: 01:31 mL, IV [place] 500 mL 00 :00 Infusion, Medical ONCE, 1 Branch dose, Sat01/20/21 at 2015, STAT clopidogrel Yes 0 Memori a 75 mg oral 7-08 Refill(s) l tablet 15:02: [place] Metformin Yes TAKE ONE Juan srikanth hydrochlori [...] tab, PO, l tablet 15:02: Daily, # [place] 00 30 tab, 0 Refill(s) metFORMIN Yes TAKE ONE Juan srikanth 1000 mg 7-08 (1) TABLET l oral tablet 15:02: BY MOUTH He rmann 00 TWICE DAILY clopidogrel 0 Yes 0 Memori a 75 mg oral 7-08 Refill(s) l tablet 15:02: Yong 00 Metformin Yes TAKE ONE Juan srikanth hydrochlori 7-08 (1) TABLET l de 1000 MG 15:02: BY MOUTH Her velásquez Oral Tablet 00 TWICE DAILY citalopram Yes 40 mg = 1 Me moria 40 mg oral 7-08 tab, PO, l tablet 15:02: Daily, # [place] 00 30 tab, 0 Refill(s) metFORMIN Yes [...] tab, PO, l tablet 15:02: Daily, # [place] 00 30 tab, 0 Refill(s) metFORMIN Yes TAKE ONE Juan srikanth 1000 mg 7-08 (1) TABLET l oral tablet 15:02: BY MOUTH He rmann 00 TWICE DAILY clopidogrel Yes 0 Memori a 75 mg oral 7-08 Refill(s) l tablet 15:02: [place] Metformin Yes TAKE ONE Juan srikanth hydrochlori 7-08 (1) TABLET l de 1000 MG 15:02: BY MOUTH Her velásquez Oral Tablet 00 TWICE DAILY citalopram Yes 40 mg = 1 Me moria 40 mg oral 7-08 tab, PO, l tablet 15:02: Daily, # [place] 00 30 tab, 0 Refill(s) metFORMIN Yes TAKE ONE Juan srikanth 1000 mg 7-08 (1) TABLET l oral tablet 15:02: BY MOUTH He rmann 00 TWICE DAILY clopidogrel Yes 0 Memori a 75 mg oral 7-08 Refill(s) l tablet 15:02: Yong citalopram Yes 40 mg = 1 Me moria 40 mg oral 7-08 tab, PO, l tablet 15:02: Daily, # [place] 00 30 tab, 0 Refill(s) clopidogrel Yes 0 Memori a 75 mg oral 7-08 Refill(s) l tablet 15:02: [place] Metformin Yes TAKE ONE Juan srikanth hydrochlori 7-08 (1) TABLET l de 1000 MG 15:02: BY MOUTH Her velásquez Oral Tablet 00 TWICE DAILY citalopram Yes 40 mg = 1 Me moria 40 mg oral 7-08 tab, PO, l tablet 15:02: Daily, # [place] 00 30 tab, 0 Refill(s) metFORMIN Yes [...] tab, PO, l tablet 15:02: Daily, # [place] 00 30 tab, 0 Refill(s) metFORMIN Yes [...] mg oral 7-08 Refill(s) l tablet 15:02: [place] citalopram Yes 40 mg = 1 Me moria 40 mg oral 7-08 tab, PO, l tablet 15:02: Daily, # [place] 00 30 tab, 0 Refill(s) Metformin Yes TAKE ONE Juan srikanth hydrochlori 7-08 (1) TABLET l de 1000 MG 15:02: BY MOUTH Her velásquez Oral Tablet 00 TWICE DAILY gabapentin Yes = 2 cap, Mem oria 300 mg oral 7-08 PO, TID, # l capsule 14:57: 540 Yong 00 unknown unit, 2 Refill(s), Pharmacy: [facility], 162.56, cm, 12/08/20 9:45:00 CDT, Height, 80.909, kg, 12/08/20 9:45:00 CDT, Weight rOPINIRole 2021-0 Yes = 1 tab, Mem oria 2 mg oral 7-08 PO, TID, # l tablet 14:57: 270 tab, 2 Dianne nn 00 Refill(s), Pharmacy: [facility], 162.56, cm, 12/08/20 9:45:00 CDT, Height, 80.909, kg, 12/08/20 9:45:00 CDT, Weight gabapentin 2021-0 Yes = 2 cap, Mem oria 300 mg oral 7-08 PO, TID, # l capsule 14:57: 540 Yong 00 unknown unit, 2 Refill(s), Pharmacy: [facility], 162.56, cm, 12/08/20 9:45:00 CDT, Height, 80.909, kg, 12/08/20 9:45:00 CDT, Weight rOPINIRole 2021-0 Yes = 1 tab, Mem oria 2 mg oral 7-08 PO, TID, # l tablet 14:57: 270 tab, 2 Dianne nn 00 Refill(s), Pharmacy: [facility], 162.56, cm, 12/08/20 9:45:00 CDT, Height, 80.909, kg, 12/08/20 9:45:00 CDT, Weight gabapentin 2021-0 Yes = 2 cap, Mem oria 300 mg oral 7-08 PO, TID, # l capsule 14:57: 540 [place] 00 unknown unit, 2 Refill(s), Pharmacy: [facility], 162.56, cm, 12/08/20 9:45:00 CDT, Height, 80.909, kg, 12/08/20 9:45:00 CDT, Weight rOPINIRole 2021-0 Yes = 1 tab, Mem oria 2 mg oral 7-08 PO, TID, # l tablet 14:57: 270 tab, 2 Dianne nn 00 Refill(s), Pharmacy: [facility], 162.56, cm, 12/08/20 9:45:00 CDT, Height, 80.909, kg, 12/08/20 9:45:00 CDT, Weight gabapentin 2021-0 Yes = 2 cap, Mem oria 300 mg oral 7-08 PO, TID, # l capsule 14:57: 540 [place] 00 unknown unit, 2 Refill(s), Pharmacy: [facility], 162.56, cm, 12/08/20 9:45:00 CDT, Height, 80.909, kg, 12/08/20 9:45:00 CDT, Weight rOPINIRole 2021-0 Yes = 1 tab, Mem oria 2 mg oral 7-08 PO, TID, # l tablet 14:57: 270 tab, 2 Dianne nn 00 Refill(s), Pharmacy: [facility], 162.56, cm, 12/08/20 9:45:00 CDT, Height, 80.909, kg, 12/08/20 9:45:00 CDT, Weight gabapentin 2021-0 Yes = 2 cap, Mem oria 300 mg oral 7-08 PO, TID, # l capsule 14:57: 540 [place] 00 unknown unit, 2 Refill(s), Pharmacy: [facility], 162.56, cm, 12/08/20 9:45:00 CDT, Height, 80.909, kg, 12/08/20 9:45:00 CDT, Weight rOPINIRole 2021-0 Yes = 1 tab, Mem oria 2 mg oral 7-08 PO, TID, # l tablet 14:57: 270 tab, 2 Dianne nn 00 Refill(s), Pharmacy: [facility], 162.56, cm, 12/08/20 9:45:00 CDT, Height, 80.909, kg, 12/08/20 9:45:00 CDT, Weight gabapentin 2021-0 Yes = 2 cap, Mem oria 300 mg oral 7-08 PO, TID, # l capsule 14:57: 540 [place] 00 unknown unit, 2 Refill(s), Pharmacy: [facility], 162.56, cm, 12/08/20 9:45:00 CDT, Height, 80.909, kg, 12/08/20 9:45:00 CDT, Weight rOPINIRole 2021-0 Yes = 1 tab, Mem oria 2 mg oral 7-08 PO, TID, # l tablet 14:57: 270 tab, 2 Dianne nn 00 Refill(s), Pharmacy: [facility], 162.56, cm, 12/08/20 9:45:00 CDT, Height, 80.909, kg, 12/08/20 9:45:00 CDT, Weight gabapentin 2021-0 Yes = 2 cap, Mem oria 300 mg oral 7-08 PO, TID, # l capsule 14:57: 540 Y[place] 00 unknown unit, 2 Refill(s), Pharmacy: [facility], 162.56, cm, 12/08/20 9:45:00 CDT, Height, 80.909, kg, 12/08/20 9:45:00 CDT, Weight rOPINIRole 202-0 Yes = 1 tab, Mem oria 2 mg oral 7-08 PO, TID, # l tablet 14:57: 270 tab, 2 Dianne nn 00 Refill(s), Pharmacy: [facility], 162.56, cm, 12/08/20 9:45:00 CDT, Height, 80.909, kg, 12/08/20 9:45:00 CDT, Weight gabapentin 2021-0 Yes = 2 cap, Mem oria 300 mg oral 7-08 PO, TID, # l capsule 14:57: 540 [place] 00 unknown unit, 2 Refill(s), Pharmacy: [facility], 162.56, cm, 12/08/20 9:45:00 CDT, Height, 80.909, kg, 12/08/20 9:45:00 CDT, Weight rOPINIRole 2021-0 Yes = 1 tab, Mem oria 2 mg oral 7-08 PO, TID, # l tablet 14:57: 270 tab, 2 Dianne nn 00 Refill(s), Pharmacy: [facility] 527, 162.56, cm, 12/08/20 9:45:00 CDT, Height, 80.909, kg, 12/08/20 9:45:00 CDT, Weight ciprofloxac 2021-0 Yes 0 Memori a in [...] ea, 1 Guille n 00 Refill(s), Pharmacy: [facility], 167.64, cm, 04/02/19 10:11:00 CDT, Height, 84.091, kg, 04/02/19 10:11:00 CDT, Weight gabapentin 2020-0 Yes = 2 cap, Mem oria 300 MG Oral 1-12 PO, TID, # l Capsule 20:12: 540 cap, 1 Herm benedicto 00 Refill(s), Pharmacy: [facility], 167.64, cm, 04/02/19 10:11:00 CDT, Height, 84.091, kg, 04/02/19 10:11:00 CDT, Weight rOPINIRole 202-0 Yes = 1 tab, Mem oria 2 mg oral 1-12 PO, TID, # l tablet 20:12: 270 ea, 1 Gu[place] n 00 Refill(s), Pharmacy: [facility], 167.64, cm, 04/02/19 10:11:00 CDT, Height, 84.091, kg, 04/02/19 10:11:00 CDT, Weight gabapentin 202-0 Yes = 2 cap, Mem oria 300 MG Oral 1-12 PO, TID, # l Capsule 20:12: 540 cap, 1 Herm benedicto 00 Refill(s), Pharmacy: [facility] 527, 167.64, cm, 04/02/19 10:11:00 CDT, Height, 84.091, kg, 04/02/19 10:11:00 CDT, Weight rOPINIRole 202-0 Yes = 1 tab, Mem oria 2 mg oral 1-12 PO, TID, # l tablet 20:12: 270 ea, 1 Gu[place] n 00 Refill(s), Pharmacy: [facility] 527, 167.64, cm, 04/02/19 10:11:00 CDT, Height, 84.091, kg, 04/02/19 10:11:00 CDT, Weight gabapentin 2020-0 Yes = 2 cap, Mem oria 300 MG Oral 1-12 PO, TID, # l Capsule 20:12: 540 cap, 1 Herm benedicto 00 Refill(s), Pharmacy: [facility], 167.64, cm, 04/02/19 10:11:00 CDT, Height, 84.091, kg, 04/02/19 10:11:00 CDT, Weight rOPINIRole 202-0 Yes = 1 tab, Mem oria 2 mg oral 1-12 PO, TID, # l tablet 20:12: 270 ea, 1 Gu[place] n 00 Refill(s), Pharmacy: [facility], 167.64, cm, 04/02/19 10:11:00 CDT, Height, 84.091, kg, 04/02/19 10:11:00 CDT, Weight gabapentin 202-0 Yes = 2 cap, Mem oria 300 MG Oral 1-12 PO, TID, # l Capsule 20:12: 540 cap, 1 Herm benedicto 00 Refill(s), Pharmacy: [facility], 167.64, cm, 04/02/19 10:11:00 CDT, Height, 84.091, kg, 04/02/19 10:11:00 CDT, Weight rOPINIRole 202-0 Yes = 1 tab, Mem oria 2 mg oral 1-12 PO, TID, # l tablet 20:12: 270 ea, 1 Gu[place] n 00 Refill(s), Pharmacy: [facility] 527, 167.64, cm, 04/02/19 10:11:00 CDT, Height, 84.091, kg, 04/02/19 10:11:00 CDT, Weight gabapentin 2020-0 Yes = 2 cap, Mem oria 300 MG Oral 1-12 PO, TID, # l Capsule 20:12: 540 cap, 1 Herm benedicto 00 Refill(s), Pharmacy: [facility], 167.64, cm, 04/02/19 10:11:00 CDT, Height, 84.091, kg, 04/02/19 10:11:00 CDT, Weight rOPINIRole 2020-0 Yes = 1 tab, Mem oria 2 mg oral 1-12 PO, TID, # l tablet 20:12: 270 ea, 1 Gu[place] n 00 Refill(s), Pharmacy: [facility] 527, 167.64, cm, 04/02/19 10:11:00 CDT, Height, 84.091, kg, 04/02/19 10:11:00 CDT, Weight gabapentin 2020-0 Yes = 2 cap, Mem oria 300 MG Oral 1-12 PO, TID, # l Capsule 20:12: 540 cap, 1 Herm benedicto 00 Refill(s), Pharmacy: [facility], 167.64, cm, 04/02/19 10:11:00 CDT, Height, 84.091, kg, 04/02/19 10:11:00 CDT, Weight rOPINIRole 202-0 Yes = 1 tab, Mem oria 2 mg oral 1-12 PO, TID, # l tablet 20:12: 270 ea, 1 Gu[place] n 00 Refill(s), Pharmacy: [facility], 167.64, cm, 04/02/19 10:11:00 CDT, Height, 84.091, kg, 04/02/19 10:11:00 CDT, Weight rOPINIRole 2021-0 Yes = 1 tab, Mem oria 2 mg oral 1-12 PO, TID, # l tablet 20:12: 270 ea, 1 Gu[place] n 00 Refill(s), Pharmacy: [facility] 527, 167.64, cm, 04/02/19 10:11:00 CDT, Height, 84.091, kg, 04/02/19 10:11:00 CDT, Weight gabapentin 202-0 Yes = 2 cap, Mem oria 300 MG Oral 1-12 PO, TID, # l Capsule 20:12: 540 cap, 1 Herm benedicto 00 Refill(s), Pharmacy: [facility] 527, 167.64, cm, 04/02/19 10:11:00 CDT, Height, 84.091, kg, 04/02/19 10:11:00 CDT, Weight gabapentin 202-0 Yes = 2 cap, Mem oria 300 MG Oral 1-12 PO, TID, # l Capsule 20:12: 540 cap, 1 Herm benedicto 00 Refill(s), Pharmacy: [place] [address], 167.64, cm, 04/02/19 10:11:00 CDT, Height, 84.091, kg, 04/02/19 10:11:00 CDT, Weight rOPINIRole 2021-0 Yes = 1 tab, Mem oria 2 mg oral 1-12 PO, TID, # l tablet 20:12: 270 ea, 1 [place] n 00 Refill(s), Pharmacy: [facility] 527, 167.64, cm, 04/02/19 10:11:00 CDT, Height, 84.091, kg, 04/02/19 10:11:00 CDT, Weight gabapentin 2021-0 Yes = 2 cap, Mem oria 300 MG Oral 1-12 PO, TID, # l Capsule 20:12: 540 cap, 1 Herm benedicto 00 Refill(s), Pharmacy: [facility], 167.64, cm, 04/02/19 10:11:00 CDT, Height, 84.091, kg, 04/02/19 10:11:00 CDT, Weight rOPINIRole 2020-0 Yes = 1 tab, Mem oria 2 mg oral 1-12 PO, TID, # l tablet 20:12: 270 ea, 1 Gu[place] n 00 Refill(s), Pharmacy: [facility], 167.64, cm, 04/02/19 10:11:00 CDT, Height, 84.091, kg, 04/02/19 10:11:00 CDT, Weight gabapentin 2020-0 Yes = 2 cap, Mem oria 300 MG Oral 1-12 PO, TID, # l Capsule 20:12: 540 cap, 1 Herm benedicto 00 Refill(s), Pharmacy: [facility], 167.64, cm, 04/02/19 10:11:00 CDT, Height, 84.091, kg, 04/02/19 10:11:00 CDT, Weight mupirocin 2 2020-0 Yes [id number] Apply to Univers % ointment 4-19 area(s) 3 ity of 00:00: (three) [place] 00 times Medical daily. Branch mupirocin 2 2020-0 Yes [id number] Apply to Univers % ointment 4-19 area(s) 3 ity of 00:00: (three) [place] 00 times Medical daily. Branch mupirocin 2 2020-0 Yes [id number] Apply to Univers % ointment 4-19 area(s) 3 ity of 00:00: (three) [place] 00 times Medical daily. Branch mupirocin 2 2020-0 Yes [id number] Apply to Univers % ointment 4-19 area(s) 3 ity of 00:00: (three) [place] 00 times Medical daily. Branch mupirocin 2 2020-0 Yes [id number] Apply to Univers % ointment 4-19 [id number] area(s) 3 it y of 00:00: (three) [place] 00 times Medical daily. Branch mupirocin 2 2020-0 2020- No [id number] Apply to Univers % ointment 4-19 08-21 [id number] area(s) 3 i ty of 00:00: 00:00 (three) [place] 00 :00 times Medical daily. Branch mupirocin 2 2019-2020- No [id number] Apply to Univers % ointment 09-19 08- 701259 area(s) 3 i ty of 00:00: 00:00 (three) [place] 00 :00 times Medical daily. Branch cephALEXin 2019-0 2020- No [id number] 500mg Take 1 Univers 500 mg 09-19 04-27 capsule by ity of capsule 00:00: 04:59 mouth 4 [place] 00 :00 (four) Medical times Branch daily for 7 days. diphenhydrA 2020-0 Yes [id number] 25mg Take 1 Univers MINE 4-17 capsule by ity of (BENADRYL) 00:00: mouth [place] 25 mg 00 every 6 Medical capsule (six) Branch hours as needed for Allergies. doxycycline 2020-0 Yes [id number] 100mg Take 1 Univers hyclate 100 4-17 tablet by ity of mg tablet 00:00: mouth 2 [place] 00 (two) Medical times Branch daily. triamcinolo 2020-0 Yes [id number] Apply to Univers ne 4-17 area(s) 2 ity of acetonide 00:00: (two) [place] 0.1 % cream 00 times Medical daily. Branch Apply 1-2g BID to affected area. diphenhydrA 2020-0 Yes [id number] 25mg Take 1 Univers MINE 4-17 capsule by ity of (BENADRYL) 00:00: mouth [place] 25 mg 00 every 6 Medical capsule (six) Branch hours as needed for Allergies. doxycycline 2020-0 Yes [id number] 100mg Take 1 Univers hyclate 100 4-17 tablet by ity of mg tablet 00:00: mouth 2 [place] 00 (two) Medical times Branch daily. triamcinolo 2020-0 Yes [id number] Apply to Univers ne 4-17 area(s) 2 ity of acetonide 00:00: (two) [place] 0.1 % cream 00 times Medical daily. Branch Apply 1-2g BID to affected area. diphenhydrA 2020-0 Yes [id number] 25mg Take 1 Univers MINE 4-17 capsule by ity of (BENADRYL) 00:00: mouth [place] 25 mg 00 every 6 Medical capsule (six) Branch hours as needed for Allergies. doxycycline 2020-0 Yes [id number] 100mg Take 1 Univers hyclate 100 4-17 tablet by ity of mg tablet 00:00: mouth 2 [place] 00 (two) Medical times Branch daily. triamcinolo 2020-0 Yes [id number] Apply to Univers ne 4-17 area(s) 2 ity of acetonide 00:00: (two) [place] 0.1 % cream 00 times Medical daily. Branch Apply 1-2g BID to affected area. diphenhydrA 2020-0 Yes [id number] 25mg Take 1 Univers MINE 4-17 capsule by ity of (BENADRYL) 00:00: mouth [place] 25 mg 00 every 6 Medical capsule (six) Branch hours as needed for Allergies. doxycycline 2020-0 Yes [id number] 100mg Take 1 Univers hyclate 100 4-17 tablet by ity of mg tablet 00:00: mouth 2 [place] 00 (two) Medical times Branch daily. triamcinolo 2020-0 Yes [id number] Apply to Univers ne 4-17 area(s) 2 ity of acetonide 00:00: (two) [place] 0.1 % cream 00 times Medical daily. Branch Apply 1-2g BID to affected area. diphenhydrA 2020-0 Yes [id number] 25mg Take 1 Univers MINE 4-17 capsule by ity of (BENADRYL) 00:00: mouth [place] 25 mg 00 every 6 Medical capsule (six) Branch hours as needed for Allergies. doxycycline 2020-0 Yes [id number] 100mg Take 1 Univers hyclate 100 4-17 tablet by ity of mg tablet 00:00: mouth 2 [place] 00 (two) Medical times Branch daily. triamcinolo 2020-0 Yes [id number] Apply to Univers ne 4-17 area(s) 2 ity of acetonide 00:00: (two) [place] 0.1 % cream 00 times Medical daily. Branch Apply 1-2g BID to affected area. diphenhydrA 2020-0 2020- No [id number] 25mg Take 1 Univers MINE 4-17 08-21 capsule by ity of (BENADRYL) 00:00: 00:00 mouth [place] 25 mg 00 :00 every 6 Medical capsule (six) Branch hours as needed for Allergies. doxycycline 2020-0 2020- No [id number] 100mg Take 1 Univers hyclate 100 4-17 08-21 tablet by it y of mg tablet 00:00: 00:00 mouth 2 [place] 00 :[place] (two) Medical times Branch daily. triamcinolo 2020- No [id number] Apply to [facility] 09-17 area(s) 2 ity of acetonide 00:00: 00:00 (two) [place] 0.1 % cream 00 :00 times Medical daily. Branch Apply 1-2g BID to affected area. diphenhydrA 2020- No [id number] 25mg Take 1 Univers MINE 09-17 capsule by ity of (BENADRYL) 00:00: 00:00 mouth [place] 25 mg 00 :00 every 6 Medical capsule (six) Branch hours as needed for Allergies. doxycycline 2020- No [id number] 100mg Take 1 [facility] [place] [facility] hyclate 100 09-17 tablet by it y of mg tablet 00:00: 00:00 mouth 2 [place] 00 :00 (two) Medical times Branch daily. triamcinolo 2020- No [id number] Apply to [facility] 09-17 area(s) 2 ity of acetonide 00:00: [...] by ity o f 00:00: mouth 2 [place] 00 (two) Medical times Branch daily. Indication s: Blood Clots in Deep Veins and in Blood Vessel of the Lung apixaban 2018-06 Yes [id number] 5mg Take 1 Unive rs mg tablet 1-24 tablet by ity o f 00:00: mouth 2 [place] 00 (two) Medical times Branch daily. Indication s: Blood Clots in Deep Veins and in Blood Vessel of the Lung apixaban 2018-06 2022- No [id number] 5mg Take 1 Univ ers mg tablet 24 -23 tablet by ity of 00:00: 00:00 [...] ia 0-31 BID, 0 l 15:12: Refill(s) [place] 00 Eliquis 2018-06 Yes 5 mg, PO, [...] ity of mg tablet 14:37: 00:00 daily. [place] 26 :00 Medical Branch glipiZIDE Yes 5mg 5 mg, Univers (GLUCOTROL) -15 Oral, ity of tablet 5 mg 14:00: DAILY, [place] 00 First dose Medical on [place] 02/15/19 at 0900, Until Discontinu ed, Routine clopidogrel Yes 75mg 75 mg, Univ ers (PLAVIX) 9-15 Oral, ity of tablet 75 14:00: DAILY, [place] mg 00 First dose Medical on [facility] 02/15/19 at 0900, Until Discontinu ed, Routine citalopram 2019-0 Yes 40mg 40 mg, Unive rs (CELEXA) 15 Oral, ity of tablet 40 14:00: DAILY, [place] mg 00 First dose Medical on [facility] 02/15/19 at 0900, Until Discontinu ed, Routine Nitrofurant 2019-0 Yes 100mg 100 mg, Un meri oin&Nit. 15 Oral, BID, ity o f Macrocryst 13:00: First dose [place] (MACROBID) 00 on [facility] 100 mg 02/15/19 at [place] capsule 100 0800, mg Until Discontinu ed, Routine
Reason for Anti-Infec tive: Empiric Therapy for Suspected Infection< br>Empiric Therapy Site: Urine<br&g t;Duration of therapy: 7 days lamoTRIgine 2019-0 Yes 200mg 200 mg, Un meri (LAMICTAL) 02-15 Oral, BID, ity of tablet 200 13:00: First dose [place] mg 00 on [facility] 02/15/19 at Branch 0800, Until Discontinu ed, Routine gabapentin 2019-0 Yes 300mg 300 mg, Uni vers (NEURONTIN) 02-15 Oral, TID, it y of capsule 300 13:00: First dose [place] mg 00 on [facility] 02/15/19 at Branch 0800, Until Discontinu ed, Routine apixaban 2019-0 Yes 10mg 10 mg, Univers (ELIQUIS) 02-15 Oral, BID, ity of tablet 10 13:00: First dose [place] mg 00 on [facility] 02/15/19 at Branch 0800, Until Discontinu ed, Routine Sliding 2018-0 Yes Subcutaneo Univ ers Scale 02-15 us, AC+HS, ity of Insulin-Reg 12:30: First dose [place] ular [facility] at Branch 0730, Until Discontinu ed, Routine dextrose 2019-0 Yes 250mL 250 mL, IV Un meri 10% (D10W) 02-15 Infusion, ity of bolus 05:13: PRN - SEE [place] infusion 08 INSTRUCTIO Medic al 250 mL NS, For Branch blood glucose < 60, Starting 02/15/19 at 0013
De xtrose 10% 250 [...] [place] mg 02 :02 Starting Medical [place] [facility] 02/15/19 at 0011, Until 02/17/19 at 0010, Routine, Pain (scale 4-6) acetaminoph Yes 650mg 650 mg, Un meri en 02-15 Oral, ity of (TYLENOL) 05:10: Q6HPRN, [place] tablet 650 35 Starting Medic al mg [place] Branch 02/15/19 at 0010, Until Discontinu ed, Routine, Pain (scale 1-3) enoxaparin 2019- No 1mg/kg 83.9 mg (1 Univers (LOVENOX) 02-15 mg/kg ity of injection 04:30: 03:40 ?83.9 [...] NOW, 1 Medical mg(2.5 mg dose, Sat [facility] h base)/3 mL 02/14/19 at nebulizer 2100, solution 3 Routine mL NaCl 0.9% 2019- No 500mL at 999 Univ ers (NS) bolus 02-15 mL/hr, 500 it y of infusion 01:00: 02:45 mL, IV [place] 500 mL 00 :00 Infusion, Medical ONCE, 1 Branch dose, 02/14/19 at 2000, STAT citalopram Yes [id number] 40mg Take 1 [facility] 40 mg 9-15 tablet by ity of tablet 00:00: mouth [place] 00 daily. [facility] citalopram Yes [id number] 40mg Take 1 [facility] 40 mg 9-15 tablet by ity of tablet 00:00: mouth [place] 00 daily. [facility] citalopram Yes [id number] 40mg Take 1 [facility] 40 mg 9-15 tablet by ity of tablet 00:00: mouth [place] 00 daily. [facility] citalopram Yes [id number] 40mg Take 1 [facility] 40 mg 9-15 tablet by ity of tablet 00:00: mouth [place] 00 daily. [facility] citalopram Yes [id number] 40mg Take 1 [facility] 40 mg 9-15 tablet by ity of tablet 00:00: mouth [place] 00 daily. [facility] citalopram Yes [id number] 40mg Take 1 [facility] 40 mg 9-15 tablet by ity of tablet 00:00: mouth [place] 00 daily. [facility] citalopram Yes [id number] 40mg Take 1 [facility] 40 mg 9-15 tablet by ity of tablet 00:00: mouth [place] 00 daily. [facility] glipiZIDE 2018-0 Yes [id number] 10mg Take 1 [facility] 10 mg 9-15 tablet by ity of tablet 00:00: mouth 2 [place] 00 (two) Medical times Branch daily before breakfast and dinner. citalopram 2018-0 Yes [id number] 40mg Take 1 [facility] 40 mg 9-15 tablet by ity of tablet 00:00: mouth [place] 00 daily. [facility] glipiZIDE 2018-0 Yes [id number] 10mg Take 1 [facility] nivers 10 mg 9-15 tablet by ity of tablet 00:00: mouth 2 00 (two) Medical times Branch daily before breakfast and dinner. citalopram 0 Yes [id number] 40mg Take 1 [facility] 40 mg 9-15 tablet by ity of tablet 00:00: mouth [place] 00 daily. [facility] Nitrofurant 0 Yes [id number] 100mg Take 1 [facility] oin&Nit. 9-15 capsule by ity o f [place] 00:00: [place] 100 mg 00 (two) Medical capsule times Branch daily. glipiZIDE 2018-0 Yes [id number] 10mg Take 1 U nivers 10 mg 9-15 tablet by ity of tablet 00:00: mouth 2 [place] 00 (two) Medical times Branch daily before breakfast and dinner. citalopram 2018-0 Yes [id number] 40mg Take 1 [facility] 40 mg 9-15 tablet by ity of tablet 00:00: mouth [place] 00 daily. Medical Branch Nitrofurant 0 Yes [id number] 100mg Take 1 [facility] oin&Nit. 9-15 capsule by ity o f Macrocryst 00:00: mouth 2 [place] 100 mg 00 (two) Medical capsule times Branch daily. glipiZIDE 2018-0 Yes [id number] 10mg Take 1 U nivers 10 mg 9-15 tablet by ity of tablet 00:00: mouth 2 [place] 00 (two) Medical times Branch daily before breakfast and dinner. citalopram 2018-0 Yes [id number] 40mg Take 1 [facility] 40 mg 9-15 tablet by ity of tablet 00:00: mouth [place] 00 daily. Medical Branch glipiZIDE 0 Yes [id number] 10mg Take 1 U nivers 10 mg 9-15 tablet by ity of tablet 00:00: mouth 2 (two) Medical times Branch daily before breakfast and dinner. citalopram 0 Yes [id number] 40mg Take 1 [facility] 40 mg 9-15 tablet by ity of tablet 00:00: mouth [place] 00 daily. Medical Branch glipiZIDE Yes [id number] 10mg Take 1 U nivers 10 mg 9-15 tablet by ity of tablet 00:00: mouth 2 (two) Medical times Branch daily before breakfast and dinner. citalopram Yes [id number] 40mg Take 1 [facility] 40 mg 9-15 tablet by ity of tablet 00:00: mouth [place] 00 daily. Medical Branch glipiZIDE Yes [id number] 10mg Take 1 U nivers 10 mg 9-15 tablet by ity of tablet 00:00: mouth (two) Medical times Branch daily before breakfast and dinner. citalopram Yes [id number] 40mg Take 1 [facility] 40 mg 9-15 tablet by ity of tablet 00:00: mouth [place] 00 daily. Medical Branch glipiZIDE Yes [id number] 10mg Take 1 U nivers 10 mg 9-15 tablet by ity of tablet 00:00: mouth (two) Medical times Branch daily before breakfast and dinner. citalopram 2018-0 Yes [id number] 40mg Take 1 [facility] 40 mg 9-15 tablet by ity of tablet 00:00: mouth [place] 00 daily. Medical Branch glipiZIDE 0 Yes [id number] 10mg Take 1 U nivers 10 mg 9-15 tablet by ity of tablet 00:00: mouth 2 (two) Medical times Branch daily before breakfast and dinner. citalopram 2018-0 Yes [id number] 40mg Take 1 [facility] 40 mg 9-15 tablet by ity of tablet 00:00: mouth [place] 00 daily. Medical Branch glipiZIDE Yes [id number] 10mg Take 1 U nivers 10 mg 9-15 tablet by ity of tablet 00:00: mouth 2 (two) Medical times Branch daily before breakfast and dinner. citalopram Yes [id number] 40mg Take 1 [facility] 40 mg 9-15 tablet by ity of tablet 00:00: mouth [place] 00 daily. Medical Branch glipiZIDE Yes [id number] 10mg Take 1 U nivers 10 mg 9-15 tablet by ity of tablet 00:00: mouth 2 00 (two) Medical times Branch daily before breakfast and dinner. citalopram Yes [id number] 40mg Take 1 [facility] 40 mg 9-15 tablet by ity of tablet 00:00: mouth [place] 00 daily. Medical Branch glipiZIDE Yes [id number] 10mg Take 1 U nivers 10 mg 9-15 tablet by ity of tablet 00:00: mouth 2 (two) Medical times Branch daily before breakfast and dinner. citalopram Yes [id number] 40mg Take 1 [facility] 40 mg 9-15 tablet by ity of tablet 00:00: mouth [place] 00 daily. Medical Branch glipiZIDE Yes [id number] 10mg Take 1 U nivers 10 mg 9-15 tablet by ity of tablet 00:00: mouth 2 (two) Medical times Branch daily before breakfast and dinner. citalopram Yes [id number] 40mg Take 1 [facility] 40 mg 9-15 tablet by ity of tablet 00:00: mouth [place] 00 daily. Medical Branch glipiZIDE Yes [id number] 10mg Take 1 U nivers 10 mg 9-15 tablet by ity of tablet 00:00: mouth 2 (two) Medical times Branch daily before breakfast and dinner. citalopram Yes [id number] 40mg Take 1 [facility] 40 mg 9-15 tablet by ity of tablet 00:00: mouth [place] 00 daily. Medical Branch glipiZIDE Yes [id number] 10mg Take 1 U nivers 10 mg 9-15 tablet by ity of tablet 00:00: mouth 2 00 (two) Medical times Branch daily before breakfast and dinner. citalopram 2018- Yes [id number] 40mg Take 1 [facility] 40 mg 9-15 tablet by ity of tablet 00:00: mouth [place] 00 daily. Medical Branch glipiZIDE Yes [id number] 10mg Take 1 U nivers 10 mg 9-15 tablet by ity of tablet 00:00: mouth 2 [place] 00 (two) Medical times Branch daily before breakfast and dinner. citalopram Yes [id number] 40mg Take 1 [facility] 40 mg 9-15 tablet by ity of tablet 00:00: mouth [place] 00 daily. Medical Branch citalopram Yes [id number] 40mg Take 1 [facility] 40 mg 9-15 tablet by ity of tablet 00:00: mouth [place] 00 daily. Medical Branch citalopram Yes [id number] 40mg Take 1 [facility] 40 mg 9-15 tablet by ity of tablet 00:00: mouth [place] 00 daily. Medical Branch citalopram Yes [id number] 40mg Take 1 [facility] 40 mg 9-15 tablet by ity of tablet 00:00: mouth [place] 00 daily. Medical Branch citalopram Yes [id number] 40mg Take 1 [facility] 40 mg 9-15 tablet by ity of tablet 00:00: mouth [place] 00 daily. Medical Branch citalopram Yes [id number] 40mg Take 1 [facility] 40 mg 9-15 tablet by ity of tablet 00:00: mouth [place] 00 daily. Medical Branch citalopram Yes [id number] 40mg Take 1 [facility] 40 mg 9-15 tablet by ity of tablet 00:00: mouth [place] 00 daily. Medical Branch citalopram Yes [id number] 40mg Take 1 [facility] 40 mg 9-15 tablet by ity of tablet 00:00: mouth [place] 00 daily. Medical Branch citalopram Yes [id number] 40mg Take 1 [facility] 40 mg 9-15 tablet by ity of tablet 00:00: mouth [place] 00 daily. Medical Branch glipiZIDE 2021- No [id number] 10mg Take 1 [facility] 10 mg 9-15 -22 tablet by ity of tablet 00:00: 00:00 mouth 2 [place] 00 :00 (two) Medical times Branch daily before breakfast and dinner. gabapentin No = 2 cap, Mem oria 300 MG Oral 9-12 PO, TID, # l Capsule 13:17: 540 [address] 36 unknown unit, Pharmacy: [facility] #[id number] gabapentin 2019-0 No = 2 cap, Mem oria 300 MG Oral 9-12 PO, TID, # l Capsule 13:17: 540 [address] 36 unknown unit, [facility] [place] [address] gabapentin 2019-0 No = 2 cap, Mem oria 300 MG Oral 9-12 PO, TID, # l Capsule 13:17: 540 [place] 36 unknown unit, [facility] gabapentin 2019-0 No = 2 cap, Mem oria 300 MG Oral 9-12 PO, TID, # l Capsule 13:17: [address] [place] 36 unknown unit, [facility] [place] [address] gabapentin 2019-0 No = 2 cap, Mem oria 300 MG Oral 9-12 PO, TID, # l Capsule 13:17: 540 [address] 36 unknown unit, [facility] [place] [address] gabapentin 2019-0 No = 2 cap, Mem oria 300 MG Oral 9-12 PO, TID, # l Capsule 13:17: 540 [address] 36 unknown unit, [facility] [place] [address] gabapentin 2019-0 No = 2 cap, Mem oria 300 MG Oral 9-12 PO, TID, # l Capsule 13:17: 540 [place] 36 unknown unit, [facility] gabapentin 2019-0 No = 2 cap, Mem oria 300 MG Oral 9-12 PO, TID, # l Capsule 13:17: [address] [place] 36 unknown unit, [id number] gabapentin 2019-0 No = 2 cap, Mem oria 300 MG Oral 9-12 PO, TID, # l Capsule 13:17: [address] [place] 36 unknown unit, [facility] gabapentin 2019-0 No = 2 cap, Mem oria 300 MG Oral 9-12 PO, TID, # l Capsule 13:17: 540 [address] 36 unknown unit, [id number] cephALEXin 2019- 2019- No [id number] 500mg Take 1 [facility] (KEFLEX) 01-31 [id number] capsule by it y of 500 mg 00:00: 04:59 mouth 4 [place] capsule 00 :00 (four) Medical times Branch daily for 7 days. clopidogrel 2018- Yes 75mg Take 75 mg [facility] (PLAVIX) 75 12-01 by mouth ity of mg tablet 18:08: daily. [address] clopidogrel 2019-0 Yes 75mg Take 75 mg [facility] (PLAVIX) 75 7-01 by mouth ity of mg tablet 18:08: daily. [address] clopidogrel 2019-0 Yes 75mg Take 75 mg [facility] (PLAVIX) 75 7-01 by mouth ity of mg tablet 18:08: daily. [address] metFORMIN 2019-0 Yes [id number] 1000mg Take 1 [facility] 1,000 mg 7-01 tablet by ity of tablet 00:00: mouth [place] ([facility]) Medical times Branch daily with meals. metFORMIN 2019-0 Yes [id number] 1000mg Take 1 [facility] 1,000 mg 7-01 tablet by ity of tablet 00:00: mouth [place] ([facility]) Medical times Branch daily with meals. metFORMIN 2019-0 Yes [id number] 1000mg Take 1 [facility] 1,000 mg 7-01 tablet by ity of tablet 00:00: mouth [place] ([facility]) Medical times Branch daily with meals. metFORMIN 2019-0 Yes [id number] 1000mg Take 1 [facility] 1,000 mg 7-01 tablet by ity of tablet 00:00: mouth [place] ([facility]) Medical times Branch daily with meals. metFORMIN 2019-0 Yes [id number] 1000mg Take 1 [facility] 1,000 mg 7-01 tablet by ity of tablet 00:00: mouth [place] ([facility]) Medical times Branch daily with meals. metFORMIN 2019-0 Yes [id number] 1000mg Take 1 [facility] 1,000 mg 7-01 tablet by ity of tablet 00:00: mouth [place] ([facility]) Medical times Branch daily with meals. metFORMIN 2019-0 Yes [id number] 1000mg Take 1 [facility] 1,000 mg 7-01 tablet by ity of tablet 00:00: mouth [place] ([facility]) Medical times Branch daily with meals. metFORMIN 2019-0 Yes [id number] 1000mg Take 1 [facility] 1,000 mg 7-01 tablet by ity of tablet 00:00: mouth [place] ([facility]) Medical times Branch daily with meals. metFORMIN 2019-0 Yes [id number] 1000mg Take 1 [facility] 1,000 mg 7-01 tablet by ity of tablet 00:00: mouth [place] ([facility]) Medical times Branch daily with meals. glipiZIDE 5 2019-0 Yes [id number] 2 tabs TID [facility] mg tablet 7- ity of 00:00: [place] 00 Medical Branch metFORMIN 2019-0 Yes [id number] 1000mg Take 1 [facility] 1,000 mg 7-01 tablet by ity of tablet 00:00: mouth (two) Medical times Branch daily with meals. citalopram 2019-0 Yes [id number] 40mg Take 1 [facility] 40 mg 7-01 tablet by ity of tablet 00:00: mouth 00 daily. Medical Branch glipiZIDE 5 2019-0 Yes [id number] 2 tabs TID [facility] mg tablet 7- ity of 00:00: [place] 00 Medical Branch metFORMIN 2019-0 Yes [id number] 1000mg Take 1 [facility] 1,000 mg 7-01 tablet by ity of tablet 00:00: mouth (two) Medical times Branch daily with meals. citalopram 2019-0 Yes [id number] 40mg Take 1 [facility] 40 mg 7-01 tablet by ity of tablet 00:00: mouth 00 daily. Medical Branch glipiZIDE 5 2018- Yes [id number] 2 tabs TID [facility] mg tablet 7- ity of 00:00: 00 Medical Branch metFORMIN 2019-0 Yes [id number] 1000mg Take 1 [facility] 1,000 mg 7-01 tablet by ity of tablet 00:00: mouth (two) Medical times Branch daily with meals. citalopram 2019-0 Yes [id number] 40mg Take 1 [facility] 40 mg 7-01 tablet by ity of tablet 00:00: mouth 00 daily. Medical Branch metFORMIN 2019-0 Yes [id number] 1000mg Take 1 [facility] 1,000 mg 7-01 tablet by ity of tablet 00:00: mouth (two) Medical times Branch daily with meals. metFORMIN 2019-0 Yes [id number] 1000mg Take 1 [facility] 1,000 mg 7-01 tablet by ity of tablet 00:00: mouth (two) Medical times Branch daily with meals. metFORMIN 2019-0 Yes [id number] 1000mg Take 1 [facility] 1,000 mg 7-01 tablet by ity of tablet 00:00: mouth 2 (two) Medical times Branch daily with meals. metFORMIN 2019-0 Yes [id number] 1000mg Take 1 [facility] 1,000 mg 7-01 tablet by ity of tablet 00:00: mouth (two) Medical times Branch daily with meals. metFORMIN 2019-0 Yes [id number] 1000mg Take 1 [facility] 1,000 mg 7-01 tablet by ity of tablet 00:00: mouth (two) Medical times Branch daily with meals. metFORMIN 2019-0 Yes [id number] 1000mg Take 1 [facility] 1,000 mg 7-01 tablet by ity of tablet 00:00: mouth (two) Medical times Branch daily with meals. metFORMIN 2019-0 Yes [id number] 1000mg Take 1 [facility] 1,000 mg 7-01 tablet by ity of tablet 00:00: mouth (two) Medical times Branch daily with meals. metFORMIN 2019-0 Yes [id number] 1000mg Take 1 [facility] 1,000 mg 7-01 tablet by ity of tablet 00:00: mouth (two) Medical times Branch daily with meals. metFORMIN 2019-0 Yes [id number] 1000mg Take 1 [facility] 1,000 mg 7-01 tablet by ity of tablet 00:00: mouth (two) Medical times Branch daily with meals. metFORMIN 2019-0 Yes [id number] 1000mg Take 1 [facility] 1,000 mg 7-01 tablet by ity of tablet 00:00: mouth (two) Medical times Branch daily with meals. metFORMIN 2019-0 Yes [id number] 1000mg Take 1 [facility] 1,000 mg 7-01 tablet by ity of tablet 00:00: mouth (two) Medical times Branch daily with meals. metFORMIN 2019-0 Yes [id number] 1000mg Take 1 [facility] 1,000 mg 7-01 tablet by ity of tablet 00:00: mouth (two) Medical times Branch daily with meals. metFORMIN 2019-0 Yes [id number] 1000mg Take 1 [facility] 1,000 mg 7-01 tablet by ity of tablet 00:00: mouth (two) Medical times Branch daily with meals. metFORMIN 2019-0 Yes [id number] 1000mg Take 1 [facility] 1,000 mg 7-01 tablet by ity of tablet 00:00: mouth (two) Medical times Branch daily with meals. metFORMIN 2019-0 Yes [id number] 1000mg Take 1 [facility] 1,000 mg 7-01 tablet by ity of tablet 00:00: mouth (two) Medical times Branch daily with meals. metFORMIN 2019- Yes [id number] 1000mg Take 1 [facility] 1,000 mg 7-01 tablet by ity of tablet 00:00: mouth (two) Medical times Branch daily with meals. metFORMIN 2018-0 Yes [id number] 1000mg Take 1 [facility] 1,000 mg 7-01 tablet by ity of tablet 00:00: mouth (two) Medical times Branch daily with meals. metFORMIN 2018- Yes [id number] 1000mg Take 1 [facility] 1,000 mg 7-01 tablet by ity of tablet 00:00: mouth (two) Medical times Branch daily with meals. metFORMIN 2018- Yes [id number] 1000mg Take 1 [facility] 1,000 mg 7-01 tablet by ity of tablet 00:00: mouth (two) Medical times Branch daily with meals. metFORMIN 2018- Yes [id number] 1000mg Take 1 [facility] 1,000 mg 7-01 tablet by ity of tablet 00:00: mouth (two) Medical times Branch daily with meals. metFORMIN 2018- Yes [id number] 1000mg Take 1 [facility] 1,000 mg 7-01 tablet by ity of tablet 00:00: mouth [place] (two) Medical times Branch daily with meals. metFORMIN 2018-0 Yes [id number] 1000mg Take 1 [facility] 1,000 mg 7-01 tablet by ity of tablet 00:00: mouth (two) Medical times Branch daily with meals. glipiZIDE 5 2019- No [id number] 2 tabs TID [facility] mg tablet 12-01 ity of 00:00: 00:00 [place] 00 :00 Medical Branch citalopram 2019- No [id number] 40mg Take 1 [facility] 40 mg 12-0115 tablet by ity of tablet 00:00: 00:00 mouth [place] 00 :00 daily. Medical Branch sitagliptan 2018-0 Yes 1{tbl} Take 1 Un [...] daily with meals. apixaban 5 2019-0 Yes [id number] 10 mg BID [facility] mg tablet 6-24 for 7 ity of 00:00: days. Followed Medical by 5 mg Branch BID apixaban 5 2019-0 Yes [id number] 10 mg BID [facility] mg tablet 6-24 for 7 ity of 00:00: days. Followed Medical by 5 mg Branch BID apixaban 5 2019-0 Yes [id number] 10 mg BID [facility] mg tablet 6-24 for 7 ity of 00:00: days. [place] Followed Medical by 5 mg Branch BID apixaban 5 2019-0 Yes [id number] 10 mg BID [facility] mg tablet 6-24 for 7 ity of 00:00: days. Followed Medical by 5 mg Branch BID apixaban 5 2019-0 Yes [id number] 10 mg BID [facility] mg tablet 6-24 for 7 ity of 00:00: days. [place] 00 Followed Medical by 5 mg Branch BID gabapentin 2018-0 No = 2 cap, Mem oria 300 MG Oral 6-04 PO, TID, # l Capsule 20:55: [address] 46 unknown unit, Pharmacy: [facility] #[id number] gabapentin 2019-0 No = 2 cap, Mem oria 300 MG Oral 6-04 PO, TID, # l Capsule 20:55: [address] 46 unknown unit, Pharmacy: [facility] #[id number] gabapentin 2018-0 No = 2 cap, Mem oria 300 MG Oral 6-04 PO, TID, # l Capsule 20:55: [address] [place] 46 unknown unit, Pharmacy: [facility] #[id number] gabapentin 2018-0 No = 2 cap, Mem oria 300 MG Oral 6-04 PO, TID, # l Capsule 20:55: [address] [place] 46 unknown unit, Pharmacy: [facility] #[id number] gabapentin 2018-0 No = 2 cap, Mem oria 300 MG Oral 6-04 PO, TID, # l Capsule 20:55: [address] [place] 46 unknown unit, Pharmacy: [place] [address] gabapentin 2019-0 No = 2 cap, Mem oria 300 MG Oral 6-04 PO, TID, # l Capsule 20:55: [address] [place] 46 unknown unit, Pharmacy: [place] [address] gabapentin 2019-0 No = 2 cap, Mem oria 300 MG Oral 6-04 PO, TID, # l Capsule 20:55: [address] [place] 46 unknown unit, Pharmacy: [place] [address] gabapentin 2019-0 No = 2 cap, Mem oria 300 MG Oral 6-04 PO, TID, # l Capsule 20:55: [address] [place] 46 unknown unit, Pharmacy: [place] [address] gabapentin 2019-0 No = 2 cap, Mem oria 300 MG Oral 6-04 PO, TID, # l Capsule 20:55: [address] 46 unknown unit, Pharmacy: [place] [address] gabapentin 2019-0 No = 2 cap, Mem oria 300 MG Oral 6-04 PO, TID, # l Capsule 20:55: [address] [place] 46 unknown unit, Pharmacy: [place] [address] lamotrigine 2019-0 Yes = 1 tab, Me moria 200 MG Oral 5-28 PO, BID, # l Tablet 14:34: 60 tab, Yong 36 Refill(s) 5, Pharmacy: [place] [address] lamotrigine 2019-0 Yes = 1 tab, Me moria 200 MG Oral 5-28 PO, BID, # l Tablet 14:34: 60 tab, [place] 36 Refill(s) 5, Pharmacy: [place] [address] lamotrigine 2019-0 Yes = 1 tab, Me moria 200 MG Oral 5-28 PO, BID, # l Tablet 14:34: 60 tab, [place] 36 Refill(s) 5, Pharmacy: [place] [address] lamotrigine 2019-0 Yes = 1 tab, Me moria 200 MG Oral 5-28 PO, BID, # l Tablet 14:34: 60 tab, [place] 36 Refill(s) 5, Pharmacy: [place] [address] lamotrigine 2019-0 Yes = 1 tab, Me moria 200 MG Oral 5-28 PO, BID, # l Tablet 14:34: 60 tab, [place] 36 Refill(s) 5, Pharmacy: [facility] lamotrigine 2019-0 Yes = 1 tab, Me moria 200 MG Oral 5-28 PO, BID, # l Tablet 14:34: 60 tab, [place] 36 Refill(s) 5, Pharmacy: [place] [address] lamotrigine 2019-0 Yes = 1 tab, Me moria 200 MG Oral 5-28 PO, BID, # l Tablet 14:34: 60 tab, [place] 36 Refill(s) 5, Pharmacy: [place] [address] lamotrigine 2019-0 Yes = 1 tab, Me moria 200 MG Oral 5-28 PO, BID, # l Tablet 14:34: 60 tab, [place] 36 Refill(s) 5, Pharmacy: [place] [address] lamotrigine 2019-0 Yes = 1 tab, Me moria 200 MG Oral 5-28 PO, BID, # l Tablet 14:34: 60 tab, [place] 36 Refill(s) 5, Pharmacy: [place] [address] lamotrigine 2019-0 Yes = 1 tab, Me moria 200 MG Oral 5-28 PO, BID, # l Tablet 14:34: 60 tab, [place] 36 Refill(s) 5, Pharmacy: [place] [id number] rOPINIRole [id number] Yes See Memoria 2 mg oral 1-31 Instructio l tablet 16:20: ns, TAKE 1 Dianne nn 04 TABLET BY MOUTH 3 TIMES A DAY, # 270 tab, 3 Refill(s), Pharmacy: [facility] rOPINIRole Yes See Memoria 2 mg oral 1-31 Instructio l tablet 16:20: ns, TAKE 1 Dianne nn 04 TABLET BY MOUTH 3 TIMES A DAY, # 270 tab, 3 Refill(s), Pharmacy: [facility] rOPINIRole Yes See Memoria 2 mg oral 1-31 Instructio l tablet 16:20: ns, TAKE 1 [place]ianne nn 04 TABLET BY MOUTH 3 TIMES A DAY, # 270 tab, 3 Refill(s), Pharmacy: [facility] rOPINIRole Yes See Memoria 2 mg oral 1-31 Instructio l tablet 16:20: ns, TAKE 1 Dianne nn 04 TABLET BY MOUTH 3 TIMES A DAY, # 270 tab, 3 Refill(s), Pharmacy: [facility] rOPINIRole Yes See Memoria 2 mg oral 1-31 Instructio l tablet 16:20: ns, TAKE 1 Dianne nn 04 TABLET BY MOUTH 3 TIMES A DAY, # 270 tab, 3 Refill(s), Pharmacy: [facility] rOPINIRole Yes See Memoria 2 mg oral 1-31 Instructio l tablet 16:20: ns, TAKE 1 Dianne nn 04 TABLET BY MOUTH 3 TIMES A DAY, # 270 tab, 3 Refill(s), Pharmacy: [facility] rOPINIRole Yes See Memoria 2 mg oral 1-31 Instructio l tablet 16:20: ns, TAKE 1 Dianne nn 04 TABLET BY MOUTH 3 TIMES A DAY, # 270 tab, 3 Refill(s), Pharmacy: [facility] rOPINIRole Yes See Memoria 2 mg oral 1-31 Instructio l tablet 16:20: ns, TAKE 1 Dianne nn 04 TABLET BY MOUTH 3 TIMES A DAY, # 270 tab, 3 Refill(s), Pharmacy: [facility] rOPINIRole Yes See Memoria 2 mg oral 1-31 Instructio l tablet 16:20: ns, TAKE 1 Dianne nn 04 TABLET BY MOUTH 3 TIMES A DAY, # 270 tab, 3 Refill(s), Pharmacy: [facility] rOPINIRole Yes See Memoria 2 mg oral 1-31 Instructio l tablet 16:20: ns, TAKE 1 Dianne nn 04 TABLET BY MOUTH 3 TIMES A DAY, # 270 tab, 3 Refill(s), Pharmacy: [facility] acetaminoph Yes [id number] 06/04 - [facility] en-codeine 1-25 tab Every ity of 300-30 mg 00:00: 4hrs as [place] tablet 00 needed for Medical pain or Branch cough requiring narcotic acetaminoph Yes [id number] 06/04 - [facility] en-codeine 1-25 tab Every ity of 300-30 mg 00:00: 4hrs as [place] tablet 00 needed for Medical pain or Branch cough requiring narcotic acetaminoph Yes [id number] 06/04 [facility] en-codeine 1-25 tab Every ity of 300-30 mg 00:00: 4hrs as [place] tablet 00 needed for Medical pain or Branch cough requiring narcotic acetaminoph Yes [id number] 06/04 [facility] en-codeine 1-25 tab Every ity of 300-30 mg 00:00: 4hrs as [place] tablet 00 needed for Medical pain or Branch cough requiring narcotic acetaminoph Yes [id number] 06/04 [facility] en-codeine 1-25 tab Every ity [...] 09 Refill(s), Pharmacy: [facility] lamotrigine 2018-0 No = 1 tab, Me moria 200 MG Oral 1-14 PO, BID, # l Tablet 21:52: 180 tab, 1 Dianne nn 09 Refill(s), Pharmacy: [facility] lamotrigine 2018-0 No = 1 tab, Me moria 200 MG Oral 1-14 PO, BID, # l Tablet 21:51: 60 tab, Yong 03 Refill(s) , 06/16/18 15:52:09 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, [id number] lamotrigine 2018-0 No = 1 tab, Me moria 200 MG Oral 1-14 PO, BID, # l Tablet 21:51: 60 tab, [place] 03 Refill(s) , 06/16/18 15:52:09 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, [id number] lamotrigine 2018-0 No = 1 tab, Me moria 200 MG Oral 1-14 PO, BID, # l Tablet 21:51: 60 tab, [place] 03 Refill(s) , 06/16/18 15:52:09 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, [id number] lamotrigine 2018-0 No = 1 tab, Me mor[place] 200 MG Oral 1-14 PO, BID, # l Tablet 21:51: 60 tab, [place] 03 Refill(s) 06/16/18 15:52:09 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, [id number] lamotrigine 2018-0 No = 1 tab, Me [place] 200 MG Oral 1-14 PO, BID, # l Tablet 21:51: 60 tab, [place]ong 03 Refill(s) , 06/16/18 15:52:09 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, [id number] lamotrigine 2019-0 No = 1 tab, Me mor[place] 200 MG Oral 1-14 PO, BID, # l Tablet 21:51: 60 tab, [place] 03 Refill(s) , 06/16/18 15:52:09 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, [id number] lamotrigine 2019-0 No = 1 tab, Me mor[place] 200 MG Oral 1-14 PO, BID, # l Tablet 21:51: 60 tab, [place] 03 Refill(s) , 06/16/18 15:52:09 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, [id number] lamotrigine 2019-0 No = 1 tab, Me [place] 200 MG Oral 1-14 PO, BID, # l Tablet 21:51: 60 tab, [place] 03 Refill(s) , 06/16/18 15:52:09 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, [id number] lamotrigine 2019-0 No = 1 tab, Me mor[place] 200 MG Oral 1-14 PO, BID, # l Tablet 21:51: 60 tab, [place] 03 Refill(s) , 06/16/18 15:52:09 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, [id number] lamotrigine 2019-0 No = 1 tab, Me mor[place] 200 MG Oral 1-14 PO, BID, # l Tablet 21:51: 60 tab, Yong 03 Refill(s) , 06/16/18 15:52:09 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, [id number] gabapentin 2018- No 600 mg = 2 M emoria 300 MG Oral 2-14 cap, PO, l Capsule 23:32: TID, X 90 Dianne nn 12 day, # 540 cap, 3 Refill(s), [id number] gabapentin 2018- No 600 mg = 2 M emoria 300 MG Oral 2-14 cap, PO, l Capsule 23:32: TID, X 90 Dianne nn 12 day, # 540 cap, 3 Refill(s), [id number] gabapentin 2018- No 600 mg = 2 M emoria 300 MG Oral 2-14 cap, PO, l Capsule 23:32: TID, X 90 Dianne nn 12 day, # 540 cap, 3 Refill(s), [id number] gabapentin 2018- No 600 mg = 2 M emoria 300 MG Oral 2-14 cap, PO, l Capsule 23:32: TID, X 90 Dianne nn 12 day, # 540 cap, 3 Refill(s), [id number] gabapentin 2018- No 600 mg = 2 M emoria 300 MG Oral 2-14 cap, PO, l Capsule 23:32: TID, X 90 Dianne nn 12 day, # 540 cap, 3 Refill(s), [id number] gabapentin 2018- No 600 mg = 2 M emoria 300 MG Oral 2-14 cap, PO, l Capsule 23:32: TID, X 90 Dianne nn 12 day, # 540 cap, 3 Refill(s), [id number] gabapentin 2017- No 600 mg = 2 M emoria 300 MG Oral 2-14 cap, PO, l Capsule 23:32: TID, X 90 Dianne nn 12 day, # 540 cap, 3 Refill(s), [id number] g[facility] 2017- No 600 mg = 2 M emoria 300 MG Oral 2-14 cap, PO, l Capsule 23:32: TID, X 90 Dianne nn 12 day, # 540 cap, 3 Refill(s), [id number] gabapentin 2017- No 600 mg = 2 M emoria 300 MG Oral 2-14 cap, PO, l Capsule 23:32: TID, X 90 Dianne nn 12 day, # 540 cap, 3 Refill(s), [id number] gabapentin 2017- No 600 mg = 2 M emoria 300 MG Oral 2-14 cap, PO, l Capsule 23:32: TID, X 90 Dianne nn 12 day, # 540 cap, 3 Refill(s), Pharmacy: [email or web address] #[id number] lamotrigine 2018- No = 1 tab, Me moria 200 MG Oral 2-12 PO, BID, # l Tablet 14:58: 60 tab, [place] [facility] Pharmacy: [email or web address] #[id number] lamotrigine 2018- No = 1 tab, Me moria 200 MG Oral 2-12 PO, BID, # l Tablet 14:58: 60 tab, [place] [facility]: [id number] lamotrigine 2017-06 No = 1 tab, Me mor[place] 200 MG Oral 2-12 PO, BID, # l Tablet 14:58: 60 tab, [place] [address] Pharmacy: [id number] lamotrigine 2017-06 No = 1 tab, Me moria 200 MG Oral 2-12 PO, BID, # l Tablet 14:58: 60 tab, [place] [facility] Pharmacy: [facility][id number] lamotrigine 2017-06 No = 1 tab, Me mor[place] 200 MG Oral 2-12 PO, BID, # l Tablet 14:58: 60 tab, [place] Pharmacy: [id number] lamotrigine 2017-06 No = 1 tab, Me mor[place] 200 MG Oral 2-12 PO, BID, # l Tablet 14:58: 60 tab, [place] [address] Pharmacy: [id number] lamotrigine 2017-06 No = 1 tab, Me mor[place] 200 MG Oral 2-12 PO, BID, # l Tablet 14:58: 60 tab, [place] [address] Pharmacy: [id number] lamotrigine 2017-06 No = 1 tab, Me [place] 200 MG Oral 2-12 PO, BID, # l Tablet 14:58: 60 tab, [place] 59 Pharmacy: [facility][id number] lamotrigine 2017-06 No = 1 tab, Me [place] 200 MG Oral 2-12 PO, BID, # l Tablet 14:58: 60 tab, [place] [address] Pharmacy: [facility][id number] lamotrigine 2017-06 No = 1 tab, Me [place] 200 MG Oral 2-12 PO, BID, # l Tablet 14:58: 60 tab, [place] [facility] Pharmacy: [facility][id number] lamoTRIgine 2017- Yes TAKE 1 Univ ers 200 mg 3-25 TABLET BY ity of tablet 00:00: MOUTH [place] 00 TWICE A Medical DAY Branch rOPINIRole 2017-0 Yes TAKE 1 Unive rs 2 mg tablet 3-25 TABLET BY ity of 00:00: MOUTH 3 [place] 00 TIMES A Medical DAY Branch lamoTRIgine 2017-0 [...] 3-25 TABLET BY ity of tablet 00:00: TWICE A Medical DAY Branch rOPINIRole 2016-0 [...] it y of 00:00: 00:00 MOUTH 3 [place] 00 :00 TIMES A Medical DAY Branch gabapentin Yes TAKE TWO Uni vers 300 mg 2-13 CAPSULE BY ity of capsule 00:00: MOUTH 3 [place] TIMES A Medical DAY Branch gabapentin Yes TAKE TWO Uni vers 300 mg 2-13 CAPSULE BY ity of capsule 00:00: MOUTH 3 [place] TIMES A Medical DAY Branch gabapentin Yes TAKE TWO Uni vers 300 mg 2-13 CAPSULE BY ity of capsule 00:00: MOUTH 3 [place] TIMES A Medical DAY Branch gabapentin Yes TAKE TWO Uni vers 300 mg 2-13 CAPSULE BY ity of capsule 00:00: MOUTH 3 [place] TIMES A Medical DAY Branch lovastatin Yes 20mg Take 20 mg U nivers 20 mg 2-13 by mouth ity of tablet 00:00: every [place] 00 morning. Medical Branch gabapentin Yes TAKE TWO Uni vers 300 mg 2-13 CAPSULE BY ity of capsule 00:00: MOUTH 3 [place] 00 TIMES A Medical DAY Branch lovastatin Yes 20mg Take 20 mg U nivers 20 mg 2-13 by mouth ity of tablet 00:00: every [place] 00 morning. Medical Branch gabapentin Yes TAKE TWO Uni vers 300 mg 2-13 CAPSULE BY ity of capsule 00:00: MOUTH 3 [place] 00 TIMES A Medical DAY Branch lovastatin Yes 20mg Take 20 mg U nivers 20 mg 2-13 by mouth ity of tablet 00:00: every [place] 00 morning. Medical Branch gabapentin 2017-0 Yes TAKE TWO Uni vers 300 mg 2-13 CAPSULE BY ity of capsule 00:00: MOUTH 3 [place] TIMES A Medical DAY Branch lovastatin 2017-0 Yes 20mg Take 20 mg U nivers 20 mg 2-13 by mouth ity of tablet 00:00: every [place] 00 morning. Medical Branch gabapentin 2016-0 Yes TAKE TWO Uni vers 300 mg 2-13 CAPSULE BY ity of capsule 00:00: MOUTH 3 [place] TIMES A Medical DAY Branch lovastatin 2017-0 Yes 20mg Take 20 mg U nivers 20 mg 2-13 by mouth ity of tablet 00:00: every [place] 00 morning. Medical Branch gabapentin 2017-0 Yes TAKE TWO Uni vers 300 mg 2-13 CAPSULE BY ity of capsule 00:00: MOUTH 3 [place] TIMES A Medical DAY Branch lovastatin 2016-0 Yes 20mg Take 20 mg U nivers 20 mg 2-13 by mouth ity of tablet 00:00: every [place] 00 morning. Medical Branch gabapentin 2016-0 Yes TAKE TWO Uni vers 300 mg 2-13 CAPSULE BY ity of capsule 00:00: MOUTH 3 [place] TIMES A Medical DAY Branch lovastatin 2017-0 Yes 20mg Take 20 mg U nivers 20 mg 2-13 by mouth ity of tablet 00:00: every [place] 00 morning. Medical Branch gabapentin 2016-0 Yes TAKE TWO Uni vers 300 mg 2-13 CAPSULE BY ity of capsule 00:00: MOUTH 3 [place] TIMES A Medical DAY Branch lovastatin 2017-0 Yes 20mg Take 20 mg U nivers 20 mg 2-13 by mouth ity of tablet 00:00: every [place] 00 morning. Medical Branch gabapentin 2017-0 Yes TAKE TWO Uni vers 300 mg 2-13 CAPSULE BY ity of capsule 00:00: MOUTH 3 [place] TIMES A Medical DAY Branch lovastatin 2017-0 Yes 20mg Take 20 mg U nivers 20 mg 2-13 by mouth ity of tablet 00:00: every [place] 00 morning. Medical Branch gabapentin 2017-0 Yes TAKE TWO Uni vers 300 mg 2-13 CAPSULE BY ity of capsule 00:00: MOUTH 3 [place] TIMES A Medical DAY Branch lovastatin 2017-0 Yes 20mg Take 20 mg U nivers 20 mg 2-13 by mouth ity of tablet 00:00: every [place] 00 morning. Medical Branch gabapentin 2017-0 Yes TAKE TWO Uni vers 300 mg 2-13 CAPSULE BY ity of capsule 00:00: MOUTH 3 TIMES A Medical DAY Branch lovastatin 2017-0 Yes 20mg Take 20 mg U nivers 20 mg 2-13 by mouth ity of tablet 00:00: every [place] 00 morning. Medical Branch gabapentin 2017-0 Yes TAKE TWO Uni vers 300 mg 2-13 CAPSULE BY ity of capsule 00:00: MOUTH 3 TIMES A Medical DAY Branch lovastatin 2017-0 Yes 20mg Take 20 mg U nivers 20 mg 2-13 by mouth ity of tablet 00:00: every [place] 00 morning. Medical Branch gabapentin 2017-0 Yes TAKE TWO Uni vers 300 mg 2-13 CAPSULE BY ity of capsule 00:00: MOUTH 3 [place] TIMES A Medical DAY Branch lovastatin 2017-0 Yes 20mg Take 20 mg U nivers 20 mg 2-13 by mouth ity of tablet 00:00: every [place] 00 morning. Medical Branch gabapentin 2016-0 Yes TAKE TWO Uni vers 300 mg 2-13 CAPSULE BY ity of capsule 00:00: MOUTH 3 [place] TIMES A Medical DAY Branch lovastatin 2016-0 Yes 20mg Take 20 mg U nivers 20 mg 2-13 by mouth ity of tablet 00:00: every [place] 00 morning. Medical Branch gabapentin 2016-0 Yes TAKE TWO Uni vers 300 mg 2-13 CAPSULE BY ity of capsule 00:00: MOUTH 3 [place] TIMES A Medical DAY Branch lovastatin 2016-0 Yes 20mg Take 20 mg U nivers 20 mg 2-13 by mouth ity of tablet 00:00: every [place] 00 morning. Medical Branch gabapentin 2017-0 Yes TAKE TWO Uni vers 300 mg 2-13 CAPSULE BY ity of capsule 00:00: MOUTH 3 [place] TIMES A Medical DAY Branch lovastatin 2017-0 Yes 20mg Take 20 mg U nivers 20 mg 2-13 by mouth ity of tablet 00:00: every [place] 00 morning. Medical Branch gabapentin 2017-0 Yes TAKE TWO Uni vers 300 mg 2-13 CAPSULE BY ity of capsule 00:00: MOUTH 3 [place] TIMES A Medical DAY Branch gabapentin 2017-0 Yes TAKE TWO Uni vers 300 mg 2-13 CAPSULE BY ity of capsule 00:00: MOUTH 3 [place] TIMES A Medical DAY Branch lovastatin 2017-0 Yes 20mg Take 20 mg U nivers 20 mg 2-13 by mouth ity of tablet 00:00: every [place] 00 morning. Medical Branch lovastatin 2017 Yes 20mg Take 20 mg U nivers 20 mg 2-13 by mouth ity of tablet 00:00: every [place] 00 morning. Medical Branch gabapentin Yes TAKE TWO Uni vers 300 mg 2-13 CAPSULE BY ity of capsule 00:00: MOUTH 3 [place] 00 TIMES A Medical DAY Branch lovastatin Yes 20mg Take 20 mg U nivers 20 mg 2-13 by mouth ity of tablet 00:00: every [place] 00 morning. Medical Branch gabapentin Yes TAKE TWO Uni vers 300 mg 2-13 CAPSULE BY ity of capsule 00:00: MOUTH 3 [place] 00 TIMES A Medical DAY Branch gabapentin 2016- Yes TAKE TWO Uni vers 300 mg 2-13 CAPSULE BY ity of capsule 00:00: MOUTH 3 [place] 00 TIMES A Medical DAY Branch gabapentin 2016- Yes TAKE TWO Uni vers 300 mg 2-13 CAPSULE BY ity of capsule 00:00: MOUTH 3 [place] 00 TIMES A Medical DAY Branch gabapentin 2016- Yes TAKE TWO Uni vers 300 mg 2-13 CAPSULE BY ity of capsule 00:00: MOUTH 3 [place] 00 TIMES A Medical DAY Branch gabapentin 2016- Yes TAKE TWO Uni vers 300 mg 2-13 CAPSULE BY ity of capsule 00:00: MOUTH 3 [place] 00 TIMES A Medical DAY Branch gabapentin 2016- Yes TAKE TWO Uni vers 300 mg 2-13 CAPSULE BY ity of capsule 00:00: MOUTH 3 [place] 00 TIMES A Medical DAY Branch gabapentin Yes TAKE TWO Uni vers 300 mg 2-13 CAPSULE BY ity of capsule 00:00: MOUTH 3 [place] 00 TIMES A Medical DAY Branch gabapentin 2016- Yes TAKE TWO Uni vers 300 mg 2-13 CAPSULE BY ity of capsule 00:00: MOUTH 3 [place] 00 TIMES A Medical DAY Branch gabapentin 2016-0 2022- No TAKE TWO Un meri 300 mg 2-13 06-05 CAPSULE BY ity of capsule 00:00: 00:00 MOUTH 3 [place] 00 :00 TIMES A Medical DAY Branch lovastatin 2021- No 20mg Take 20 mg Univers 20 mg 2-13 09-22 by mouth ity of tablet 00:00: 00:00 every [place] 00 :00 morning. Medical Branch metformin metformin No metformin Devoted 1,000 mg [...] as oral route needed. needed. as needed. BD Siobhan 2nd BD Siobhan 2nd No [...] ONCE SUBCUTANEO DAILY DAILY USLY ONCE DAILY Immunizations Ordered Filled Immunization Date Status Comments [facility] e Immunization Name Name SARS-COV-2 COVID-19 2021-09-23 Completed Unive rsity of MODERNA VACCINE 00:00:00 [facility] ical Branch SARS-COV-2 COVID-19 2021-09-23 Completed Unive rsity of MODERNA VACCINE 00:00:00 [facility] ical Branch SARS-COV-2 COVID-19 2021-09-23 Completed Unive rsity of MODERNA VACCINE 00:00:00 [facility] ical Branch SARS-COV-2 COVID-19 2021-09-23 Completed Unive rsity of MODERNA 12+ YRS 00:00:00 [facility] ical VACCINE Branch SARS-COV-2 COVID-19 2021-09-23 Completed Unive rsity of MODERNA 12+ YRS 00:00:00 [facility] ical VACCINE Branch SARS-COV-2 COVID-19 2021-09-23 Completed Unive rsity of MODERNA 12+ YRS 00:00:00 [facility] ical VACCINE Branch SARS-COV-2 COVID-19 2021-09-23 Completed Unive rsity of MODERNA 12+ YRS 00:00:00 [facility] ical VACCINE Branch SARS-COV-2 COVID-19 2021-09-23 Completed Unive rsity of MODERNA 12+ YRS 00:00:00 [facility] ical VACCINE Branch SARS-COV-2 COVID-19 2021-09-23 Completed Unive rsity of MODERNA VACCINE 00:00:00 [facility] ical Branch SARS-COV-2 COVID-19 2021-09-23 Completed Unive rsity of MODERNA VACCINE 00:00:00 [place] [facility] ical Branch SARS-COV-2 COVID-19 2021-09-23 Completed Unive rsity of MODERNA VACCINE 00:00:00 [facility] ical Branch SARS-COV-2 COVID-19 2021-09-23 Completed Unive rsity of MODERNA VACCINE 00:00:00 [facility] ical Branch SARS-COV-2 COVID-19 2021-09-23 Completed Unive rsity of MODERNA VACCINE 00:00:00 [facility] ical Branch SARS-COV-2 COVID-19 2021-09-23 Completed Unive rsity of MODERNA VACCINE 00:00:00 [facility] ical Branch SARS-COV-2 COVID-19 2021-09-23 Completed Unive rsity of MODERNA VACCINE 00:00:00 [facility] ical Branch SARS-COV-2 COVID-19 2021-04-03 Completed Unive rsity of MODERNA 12+ YRS 00:00:00 [facility] ical VACCINE Branch SARS-COV-2 COVID-19 2021-04-03 Completed Unive rsity of MODERNA 12+ YRS 00:00:00 [facility] ical VACCINE Branch SARS-COV-2 COVID-19 2021-04-03 Completed Unive rsity of MODERNA 12+ YRS 00:00:00 [facility] ical VACCINE Branch SARS-COV-2 COVID-19 2021-04-03 Completed Unive rsity of MODERNA 12+ YRS 00:00:00 [facility] ical VACCINE Branch SARS-COV-2 COVID-19 2021-04-03 Completed Unive rsity of MODERNA 12+ YRS 00:00:00 [facility] ical VACCINE Branch MODERNA COVID-19 2021-04-03 Completed [facility] t MRNA VACCINATION 00:00:00 [facility] MODERNA COVID-19 2021-04-03 Completed Method[facility] t MRNA VACCINATION 00:00:00 [facility] MODERNA COVID-19 2021-04-03 Completed Method[facility] t MRNA VACCINATION 00:00:00 [facility] MODERNA COVID-19 2021-04-03 Completed [facility] t MRNA VACCINATION 00:00:00 [facility] MODERNA COVID-19 2021-04-03 Completed Methodis t MRNA VACCINATION 00:00:00 [facility] SARS-COV-2 COVID-19 2020-09-04 Completed Unive rsity [...] Completed Unive rsity of MODERNA VACCINE 00:00:00 [facility] Branch SARS-COV-2 COVID-19 2020-09-04 Completed Unive rsity of MODERNA VACCINE 00:00:00 [facility] SARS-COV-2 COVID-19 2020-09-04 Completed Unive rsity of MODERNA VACCINE 00:00:00 [facility] SARS-COV-2 COVID-19 2020-09-04 Completed Unive rsity of MODERNA VACCINE 00:00:00 [facility] SARS-COV-2 COVID-19 2020-09-04 Completed Unive rsity of MODERNA VACCINE 00:00:00 [facility] SARS-COV-2 COVID-19 2020-09-04 Completed Unive rsity of MODERNA VACCINE 00:00:00 [facility] SARS-COV-2 COVID-19 2020-09-04 Completed Unive rsity of MODERNA VACCINE 00:00:00 [facility] SARS-COV-2 COVID-19 2020-09-04 Completed Unive rsity of MODERNA VACCINE 00:00:00 [facility] SARS-COV-2 COVID-19 2020-09-04 Completed Unive rsity of MODERNA VACCINE 00:00:00 [facility] SARS-COV-2 COVID-19 2020-09-04 Completed Unive rsity of MODERNA VACCINE 00:00:00 [facility] MODERNA COVID-19 2020-09-04 Completed Methodis t MRNA VACCINATION 00:00:00 [facility] MODERNA COVID-19 2020-09-04 Completed Method[facility] t MRNA VACCINATION 00:00:00 [facility] MODERNA COVID-19 2020-09-04 Completed [facility] t MRNA VACCINATION 00:00:00 Hospital MODERNA COVID-19 2020-09-04 Completed [facility] t MRNA VACCINATION 00:00:00 [facility] MODERNA COVID-19 2020-09-04 Completed Methodis t MRNA VACCINATION 00:00:00 [facility] MODERNA COVID-19 2020-08-10 Completed Method[facility] t MRNA VACCINATION 00:00:00 [facility] MODERNA COVID-19 2020-08-10 Completed [facility] t MRNA VACCINATION 00:00:00 Hospital MODERNA COVID-19 2020-08-10 Completed [facility] MRNA VACCINATION 00:00:00 Hospital MODERNA COVID-19 2020-08-10 Completed [facility] MRNA VACCINATION 00:00:00 Hospital MODERNA COVID-19 2020-08-10 Completed Method[facility] t MRNA VACCINATION 00:00:00 [facility] SARS-COV-2 COVID-19 2020-03-12 Completed Unive rsity [...] Unive rsity of MODERNA VACCINE 00:00:00 [place] [facility] ical Branch SARS-COV-2 COVID-19 2020-03-12 Completed Unive rsity of MODERNA VACCINE 00:00:00 [place] [facility] SARS-COV-2 COVID-19 2020-03-12 Completed Unive rsity of MODERNA VACCINE 00:00:00 [place] [facility] ical Branch SARS-COV-2 COVID-19 2020-03-12 Completed Unive rsity of MODERNA VACCINE 00:00:00 [place] [facility] ical Branch SARS-COV-2 COVID-19 2020-03-12 Completed Unive rsity of MODERNA VACCINE 00:00:00 [place] [facility] ical Branch SARS-COV-2 COVID-19 2020-03-12 Completed Unive rsity of MODERNA VACCINE 00:00:00 [place] [facility] ical Branch SARS-COV-2 COVID-19 2020-03-12 Completed Unive rsity of MODERNA VACCINE 00:00:00 [place] [facility] ical Branch SARS-COV-2 COVID-19 2020-03-12 Completed Unive rsity of MODERNA VACCINE 00:00:00 [place] [facility] ical Branch SARS-COV-2 COVID-19 2020-03-12 Completed Unive rsity of MODERNA VACCINE 00:00:00 [place] [facility] ical Branch SARS-COV-2 COVID-19 2020-03-12 Completed Unive rsity of MODERNA VACCINE 00:00:00 [place] [facility] ical Branch SARS-COV-2 COVID-19 2020-03-12 Completed Unive rsity of MODERNA VACCINE 00:00:00 [place] [facility] ical Branch SARS-COV-2 COVID-19 2020-03-12 Completed Unive rsity of MODERNA VACCINE 00:00:00 [facility] Influenza High Dose 2019-03-03 Completed Unive rsity of 00:00:00 [facility] Branch Influenza High Dose 2019-03-03 Completed Unive rsity of 00:00:00 [facility] Branch Influenza High Dose 2019-03-03 Completed Unive rsity of 00:00:00 [facility] Influenza High Dose 2019-03-03 Completed Unive rsity of 00:00:00 [facility] Influenza High Dose 2019-03-03 Completed Unive rsity of 00:00:00 [facility] Influenza High Dose 2019-03-03 Completed Unive rsity of 00:00:00 [facility] Influenza High Dose 2019-03-03 Completed Unive rsity of 00:00:00 [facility] Influenza High Dose 2019-03-03 Completed Unive rsity of 00:00:00 [facility] Influenza High Dose 2019-03-03 Completed Unive rsity of 00:00:00 [facility] Influenza High Dose 2019-03-03 Completed Unive rsity of 00:00:00 [facility] Influenza High Dose 2019-03-03 Completed Unive rsity of 00:00:00 [facility] Influenza High Dose 2019-03-03 Completed Unive rsity of 00:00:00 [facility] Influenza High Dose 2019-03-03 Completed Unive rsity of 00:00:00 [facility] Influenza High Dose 2019-03-03 Completed Unive rsity of 00:00:00 [facility] Influenza High Dose 2019-03-03 Completed Unive rsity of 00:00:00 [facility] Influenza High Dose 2019-03-03 Completed Unive rsity of 00:00:00 [facility] Influenza High Dose 2019-03-03 Completed Unive rsity of 00:00:00 [facility] Influenza High Dose 2019-03-03 Completed Unive rsity of 00:00:00 [facility] Influenza High Dose 2019-03-03 Completed Unive rsity of 00:00:00 [facility] Influenza High Dose 2019-03-03 Completed Unive rsity of 00:00:00 [facility] Influenza High Dose 2019-03-03 Completed Unive rsity of 00:00:00 [facility] Influenza High Dose 2019-03-03 Completed Unive rsity of 00:00:00 [facility] Influenza High Dose 2019-03-03 Completed Unive rsity of 00:00:00 [facility] Influenza High Dose 2019-03-03 Completed Unive rsity of 00:00:00 [facility] Influenza High Dose 2019-03-03 Completed Unive rsity of 00:00:00 [facility] Influenza High Dose 2019-03-03 Completed Unive rsity of 00:00:00 [facility] Influenza High Dose 2019-03-03 Completed Unive rsity of 00:00:00 [facility] Influenza High Dose 2019-03-03 Completed Unive rsity of 00:00:00 [facility] Influenza High Dose 2019-03-03 Completed Unive rsity of 00:00:00 [facility] Influenza High Dose 2018-07-17 Completed Unive rsity of 00:00:00 [facility] Pneumococcal 13 2018-07-17 Completed Universit y of Conjugate, PCV13 00:00:00 [place] Me [facility] (Prevnar 13) Branch Influenza High Dose 2018-07-17 Completed Unive rsity of 00:00:00 [facility] Pneumococcal 13 2018-07-17 Completed Universit y of Conjugate, PCV13 00:00:00 [place] Me [facility] (Prevnar 13) Branch Influenza High Dose 2018-07-17 Completed Unive rsity of 00:00:00 [facility] Pneumococcal 13 2018-07-17 Completed Universit y of Conjugate, PCV13 00:00:00 [place] Me [facility] (Prevnar 13) Branch Influenza High Dose 2018-07-17 Completed Unive rsity of 00:00:00 [facility] Pneumococcal 13 2018-07-17 Completed Universit y of Conjugate, PCV13 00:00:00 [place] Me [facility]ical (Prevnar 13) Branch Influenza High Dose 2018-07-17 Completed Unive rsity of 00:00:00 [facility] Pneumococcal 13 2018-07-17 Completed Universit y of Conjugate, PCV13 00:00:00 [place] Me [facility] (Prevnar 13) Branch Influenza High Dose 2018-07-17 Completed Unive rsity of 00:00:00 [facility] Pneumococcal 13 2018-07-17 Completed Universit y of Conjugate, PCV13 00:00:00 [place] Me [facility] (Prevnar 13) Branch Influenza High Dose 2018-07-17 Completed Unive rsity of 00:00:00 [facility] Pneumococcal 13 2018-07-17 Completed Universit y of Conjugate, PCV13 00:00:00 [place] [facility] (Prevnar 13) Branch Influenza High Dose 2018-07-17 Completed Unive rsity of 00:00:00 [facility] Pneumococcal 13 2018-07-17 Completed Universit y of Conjugate, PCV13 00:00:00 [place] [facility] (Prevnar 13) Branch Influenza High Dose 2018-07-17 Completed Unive rsity of 00:00:00 [facility] Pneumococcal 13 2018-07-17 Completed Universit y of Conjugate, PCV13 00:00:00 [place] [facility] (Prevnar 13) Branch Influenza High Dose 2018-07-17 Completed Unive rsity of 00:00:00 [facility] Pneumococcal 13 2018-07-17 Completed Universit y of Conjugate, PCV13 00:00:00 [place] [facility] (Prevnar 13) Branch Influenza High Dose 2018-07-17 Completed Unive rsity of 00:00:00 [facility] Pneumococcal 13 2018-07-17 Completed Universit y of Conjugate, PCV13 00:00:00 [place] [facility] (Prevnar 13) Branch Influenza High Dose 2018-07-17 Completed Unive rsity of 00:00:00 [facility] Pneumococcal 13 2018-07-17 Completed Universit y of Conjugate, PCV13 00:00:00 [place] [facility] (Prevnar 13) Branch Influenza High Dose 2018-07-17 Completed Unive rsity of 00:00:00 [facility] Pneumococcal 13 2018-07-17 Completed Universit y of Conjugate, PCV13 00:00:00 [place] [facility] (Prevnar 13) Branch Influenza High Dose 2018-07-17 Completed Unive rsity of 00:00:00 [facility] Pneumococcal 13 2018-07-17 Completed Universit y of Conjugate, PCV13 00:00:00 [place] [facility] (Prevnar 13) Branch Influenza High Dose 2018-07-17 Completed Unive rsity of 00:00:00 [facility] Pneumococcal 13 2018-07-17 Completed Universit y of Conjugate, PCV13 00:00:00 [place] [facility] (Prevnar 13) Branch Influenza High Dose 2018-07-17 Completed Unive rsity of 00:00:00 [facility] Pneumococcal 13 2018-07-17 Completed Universit y of Conjugate, PCV13 00:00:00 [place] [facility] (Prevnar 13) Branch Influenza High Dose 2018-07-17 Completed Unive rsity of 00:00:00 [facility] Pneumococcal 13 2018-07-17 Completed Universit y of Conjugate, PCV13 00:00:00 [place] [facility] (Prevnar 13) Branch Influenza High Dose 2018-07-17 Completed Unive rsity of 00:00:00 [facility] Pneumococcal 13 2018-07-17 Completed Universit y of Conjugate, PCV13 00:00:00 [place] [facility] (Prevnar 13) Branch Influenza High Dose 2018-07-17 Completed Unive rsity of 00:00:00 [facility] Pneumococcal 13 2018-07-17 Completed Universit y of Conjugate, PCV13 00:00:00 [place] [facility] (Prevnar 13) Branch Influenza High Dose 2018-07-17 Completed Unive rsity of 00:00:00 [facility] Pneumococcal 13 2018-07-17 Completed Universit y of Conjugate, PCV13 00:00:00 [place] [facility] (Prevnar 13) Branch Influenza High Dose 2018-07-17 Completed Unive rsity of 00:00:00 [facility] Pneumococcal 13 2018-07-17 Completed Universit y of Conjugate, PCV13 00:00:00 [place] [facility] (Prevnar 13) Branch Influenza High Dose 2018-07-17 Completed Unive rsity of 00:00:00 [facility] Pneumococcal 13 2018-07-17 Completed Universit y of Conjugate, PCV13 00:00:00 [place] [facility] (Prevnar 13) Branch Influenza High Dose 2018-07-17 Completed Unive rsity of 00:00:00 [facility] Pneumococcal 13 2018-07-17 Completed Universit y of Conjugate, PCV13 00:00:00 [place] [facility] (Prevnar 13) Branch Influenza High Dose 2018-07-17 Completed Unive rsity of 00:00:00 [facility] Pneumococcal 13 2018-07-17 Completed Universit y of Conjugate, PCV13 00:00:00 [place] [facility] (Prevnar 13) [place] Vital Signs Vital Name Observation Time Observation Value Comments Source Height/Length 2021-06-20 167 cm Measured 09:47:40 Weight Dosing 2021-06-20 83.95 kg 09:47:40 Height/Length 2021-06-20 167 cm Measured 09:26:45 Weight Dosing 2021-06-20 83.95 kg 09:26:45 Height/Length 2021-06-20 167 cm Measured 09:26:32 Weight Dosing 2021-06-20 83.95 kg 09:26:32 Systolic blood 2022-12-03 112 mm[Hg] University of pressure 20:00:00 [facility] Diastolic blood 2022-12-03 63 mm[Hg] University o f pressure 20:00:00 [facility] Heart rate 2022-12-03 61 /min University of 20:00:00 [facility] Body temperature 2022-12-03 36.72 Erica University of 20:00:00 [facility] Respiratory rate 2022-12-03 12 /min University of 20:00:00 [facility] Oxygen saturation 2022-12-03 97 /min University of in Arterial blood 20:00:00 [facility] corby by Pulse oximetry Branch Body height 2022-12-03 167.6 cm University of 02:12:00 [facility] Body weight 2022-12-03 78.971 kg University of 02:12:00 [facility] BMI 2022-12-03 28.10 kg/m2 University of 02:12:00 [facility] Systolic blood 2022-11-05 121 mm[Hg] University of pressure 16:00:00 [facility] Diastolic blood 2022-11-05 66 mm[Hg] University o f pressure 16:00:00 [facility] Heart rate 2022-11-05 72 /min University of 16:00:00 [facility] Body temperature 2022-11-05 36.72 Erica University 16:00:00 [facility] Respiratory rate 2022-11-05 17 /min University of 16:00:00 [facility] Oxygen saturation 2022-11-05 94 /min University of in Arterial blood 16:00:00 [facility] by Pulse oximetry Branch Body height 2022-11-01 167.6 cm estimated by [place] of 19:22:00 [facility] Medical [facility] Body weight 2022-11-01 81.647 kg estimated by University of 19:22:00 [facility] BMI 2022-11-01 29.05 kg/m2 University of 19:22:00 [facility] Systolic blood 2022-09-08 157 mm[Hg] University of pressure 08:00:00 [facility] Diastolic blood 2022-09-08 76 mm[Hg] University o f pressure 08:00:00 [facility] Heart rate 2022-09-08 83 /min University of 08:00:00 [facility] Respiratory rate 2022-09-08 17 /min [place] [facility] 08:00:00 [facility] Oxygen saturation 2022-09-08 96 /min University of in Arterial blood 08:00:00 [facility] by Pulse oximetry Branch Body temperature 2022-09-08 36.78 Erica [facility] 05:39:00 [facility] Body height 2022-09-08 167.6 cm University of 05:39:00 [facility] Body weight 2022-09-08 80.74 kg University of 05:39:00 [facility] BMI 2022-09-08 28.73 kg/m2 University of 05:39:00 [facility] Systolic blood 2022-01-16 133 mm[Hg] University of pressure 18:30:00 [facility] Diastolic blood 2022-01-16 61 mm[Hg] University o f pressure 18:30:00 [facility] Heart rate 2022-01-16 57 /min University of 18:30:00 [facility] Oxygen saturation 2022-01-16 98 /min University of in Arterial blood 18:30:00 [facility] by Pulse oximetry Branch Body temperature 2022-01-16 36.22 Erica University of 16:53:00 [facility] Respiratory rate 2022-01-16 16 /min University of 16:53:00 [facility] Body height 2022-01-15 165.1 cm University of 19:56:00 [facility] Body weight 2022-01-15 75.3 kg University of 19:56:00 [facility] BMI 2022-01-15 27.62 kg/m2 University of 19:56:00 [facility] Systolic blood 2021-09-23 124 mm[Hg] University of pressure 16:15:00 [facility] Diastolic blood 2021-09-23 63 mm[Hg] University o f pressure 16:15:00 [facility] Heart rate 2021-09-23 62 /min University of 16:15:00 [facility] Body temperature 2021-09-23 36.78 Erica University of 16:15:00 [facility] Respiratory rate 2021-09-23 16 /min University of 16:15:00 [facility] Oxygen saturation 2021-09-23 96 /min University of in Arterial blood 16:15:00 [facility] by Pulse oximetry Branch Body height 2021-09-23 165.1 cm University of 15:51:00 [facility] Body weight 2021-09-23 75.297 kg University of 15:51:00 [facility] BMI 2021-09-23 27.62 kg/m2 University of 15:51:00 [facility] Systolic blood 2021-04-29 120 mm[Hg] University of pressure 15:30:00 [facility] Diastolic blood 2021-04-29 83 mm[Hg] University o f pressure 15:30:00 [facility] Branch Heart rate 2021-04-29 84 /min University of 15:30:00 [facility] Branch Body temperature 2021-04-29 36.5 Erica University of 15:30:00 [facility] Branch Respiratory rate 2021-04-29 18 /min University of 15:30:00 [facility] Body height 2021-04-29 167.6 cm University of 15:30:00 [facility] Body weight 2021-04-29 79.379 kg University of 15:30:00 [facility] BMI 2021-04-29 28.25 kg/m2 University of 15:30:00 [facility] Oxygen saturation 2021-04-29 99 /min University of in Arterial blood 15:30:00 [facility] by Pulse oximetry Branch Systolic blood 2021-01-24 143 mm[Hg] University of pressure 12:34:00 [facility] Diastolic blood 2021-01-24 78 mm[Hg] University o f pressure 12:34:00 [facility] Heart rate 2021-01-24 67 /min University of 12:34:00 [facility] Body temperature 2021-01-24 37.06 Erica University of 12:34:00 [facility] Respiratory rate 2021-01-24 18 /min University of 12:34:00 [facility] Oxygen saturation 2021-01-24 97 /min University of in Arterial blood 12:34:00 [facility] by Pulse oximetry Branch Body height 2021-01-20 162.6 cm University of 21:51:00 [facility] Body weight 2021-01-20 82.555 kg University of 21:51:00 [facility] BMI 2021-01-20 31.24 kg/m2 University of 21:51:00 [facility] Systolic blood 2020-02-14 154 mm[Hg] University of pressure 19:25:00 [facility] Branch Diastolic blood 2020-02-14 95 mm[Hg] University o f pressure 19:25:00 [facility] Heart rate 2020-02-14 82 /min University of 19:25:00 [facility] Body temperature 2020-02-14 36.72 Erica University of 19:25:00 [facility] Branch Respiratory rate 2020-02-14 20 /min University of 19:25:00 [facility] Body weight 2020-02-14 84.823 kg University of 19:25:00 [facility] BMI 2020-02-14 30.18 kg/m2 University of 19:25:00 [facility] Oxygen saturation 2020-02-14 98 /min University of in Arterial blood 19:25:00 [facility] by Pulse oximetry Branch Systolic blood 2020-02-14 154 mm[Hg] University of pressure 19:25:00 [facility] Diastolic blood 2020-02-14 95 mm[Hg] University o f pressure 19:25:00 [facility] Heart rate 2020-02-14 82 /min University of 19:25:00 [facility] Body temperature 2020-02-14 36.72 Erica University of 19:25:00 [facility] Respiratory rate 2020-02-14 20 /min University of 19:25:00 [facility] Body weight 2020-02-14 84.823 kg University of 19:25:00 [facility] BMI 2020-02-14 30.18 kg/m2 University of 19:25:00 [facility] Oxygen saturation 2020-02-14 98 /min University of in Arterial blood 19:25:00 [facility] by Pulse oximetry Branch Systolic blood 2019-09-20 159 mm[Hg] University of pressure 21:15:00 [facility] Diastolic blood 2019-09-20 79 mm[Hg] University o f pressure 21:15:00 [facility] Heart rate 2019-09-20 71 /min University of 21:15:00 [facility] Oxygen saturation 2019-09-20 97 /min University of in Arterial blood 21:15:00 [facility] by Pulse oximetry Branch Respiratory rate 2019-09-20 16 /min University of 20:00:00 [facility] Body temperature 2019-09-20 37.61 Erica University of 17:50:00 [facility] Body weight 2019-09-20 86.183 kg University of 17:50:00 [facility] BMI 2019-09-20 30.67 kg/m2 University of 17:50:00 [facility] Systolic blood 2019-09-20 159 mm[Hg] University of pressure 21:15:00 [facility] Diastolic blood 2019-09-20 79 mm[Hg] University o f pressure 21:15:00 [facility] Heart rate 2019-09-20 71 /min University of 21:15:00 [facility] Oxygen saturation 2019-09-20 97 /min University of in Arterial blood 21:15:00 [facility] by Pulse oximetry Branch Respiratory rate 2019-09-20 16 /min University of 20:00:00 [facility] Body temperature 2019-09-20 37.61 Erica University of 17:50:00 [facility] Body weight 2019-09-20 86.183 kg University of 17:50:00 [facility] BMI 2019-09-20 30.67 kg/m2 University of 17:50:00 [facility] Height/Length 2019-08-07 Measured 14:27:17 Weight Dosing 2019-08-07 14:27:17 Heart rate 2019-02-15 81 /min University of 12:38:00 [facility] Respiratory rate 2019-02-15 20 /min University of 12:38:00 [facility] Oxygen saturation 2019-02-15 99 /min University of in Arterial blood 12:38:00 [facility] by Pulse oximetry Branch Systolic blood 2019-02-15 125 mm[Hg] University of pressure 12:32:00 [facility] Diastolic blood 2019-02-15 76 mm[Hg] University o f pressure 12:32:00 [facility] Body temperature 2019-02-15 36.94 Erica University of 12:32:00 [facility] Body weight 2019-02-15 83.915 kg University of 00:33:00 [facility] BMI 2019-02-15 29.86 kg/m2 University of 00:33:00 [facility] Heart rate 2019-02-15 81 /min University of 12:38:00 [facility] Respiratory rate 2019-02-15 20 /min University of 12:38:00 [facility] Oxygen saturation 2019-02-15 99 /min University of in Arterial blood 12:38:00 [facility] by Pulse oximetry Branch Systolic blood 2019-02-15 125 mm[Hg] University of pressure 12:32:00 [facility] Diastolic blood 2019-02-15 76 mm[Hg] University o f pressure 12:32:00 [facility] Body temperature 2019-02-15 36.94 Erica University of 12:32:00 [facility] Body weight 2019-02-15 83.915 kg University of 00:33:00 [facility] BMI 2019-02-15 29.86 kg/m2 University of 00:33:00 [facility] Systolic blood 2019-02-15 151 mm[Hg] University of pressure 00:40:00 [facility] Diastolic blood 2019-02-15 94 mm[Hg] University o f pressure 00:40:00 [facility] Heart rate 2019-02-15 96 /min University of 00:40:00 [facility] Body temperature 2019-02-15 36.89 Erica University of 00:40:00 [facility] Respiratory rate 2019-02-15 18 /min University 00:40:00 [place] [facility] Body height 2019-02-15 167.6 cm University 00:40:00 [facility] Body weight 2019-02-15 84.086 kg University of 00:40:00 [facility] BMI 2019-02-15 29.92 kg/m2 University of 00:40:00 [facility] Oxygen saturation 2019-02-15 96 /min University of in Arterial blood 00:40:00 [place] [facility] by Pulse oximetry [facility] Systolic blood 2019-02-15 151 mm[Hg] University of pressure 00:40:00 [facility] Diastolic blood 2019-02-15 94 mm[Hg] University o f pressure 00:40:00 [facility] Heart rate 2019-02-15 96 /min University 00:40:00 [facility] Body temperature 2019-02-15 36.89 Erica University 00:40:00 [facility] Respiratory rate 2019-02-15 18 /min University 00:40:00 [place] [facility] Body height 2019-02-15 167.6 cm University 00:40:00 [facility] Body weight 2019-02-15 84.086 kg University of 00:40:00 [facility] BMI 2019-02-15 29.92 kg/m2 University of 00:40:00 [facility] Oxygen saturation 2019-02-15 96 /min University of in Arterial blood 00:40:00 [place] [facility] by Pulse oximetry [facility] Systolic blood 2019-01-31 136 mm[Hg] University of pressure 16:33:00 [place] [facility] Diastolic blood 2019-01-31 76 mm[Hg] University o f pressure 16:33:00 [facility] Heart rate 2019-01-31 84 /min University of 16:33:00 [facility] Body temperature 2019-01-31 36.17 Erica University of 16:33:00 [facility] Respiratory rate 2019-01-31 17 /min University of 16:33:00 [facility] Body height 2019-01-31 167.6 cm University 16:33:00 [facility] Body weight 2019-01-31 85.276 kg University of 16:33:00 [facility] BMI 2019-01-31 30.34 kg/m2 University of 16:33:00 [facility] Oxygen saturation 2019-01-31 97 /min University of in Arterial blood 16:33:00 [facility] by Pulse oximetry Branch Systolic blood 2019-01-31 136 mm[Hg] University of pressure 16:33:00 [facility] Diastolic blood 2019-01-31 76 mm[Hg] University o f pressure 16:33:00 [facility] Heart rate 2019-01-31 84 /min [facility] 16:33:00 [facility] Body temperature 2019-01-31 36.17 Erica University 16:33:00 [facility] Respiratory rate 2019-01-31 17 /min University 16:33:00 [facility] Body height 2019-01-31 167.6 cm [facility] 16:33:00 [facility] Body weight 2019-01-31 85.276 kg University 16:33:00 [facility] BMI 2019-01-31 30.34 kg/m2 University 16:33:00 [facility] Oxygen saturation 2019-01-31 97 /min [facility] in Arterial blood 16:33:00 [facility] by Pulse oximetry Branch Systolic (mm Hg) 2022-03-13 [facility] Andrea rmann 18:17:00 Diastolic (mm Hg) 2022-03-13 [facility] ermann 18:17:00 Heart Rate 2022-03-13 [facility] 18:17:00 Height 2022-03-13 5 [ft_i] [facility] 18:17:00 Weight 2022-03-13 [facility] 18:17:00 BMI Calculated 2022-03-13 [facility] 18:17:00 Systolic (mm Hg) 2022-01-22 [facility] Andrea rmann 18:11:00 Diastolic (mm Hg) 2022-01-22 [facility] H ermann 18:11:00 Heart Rate 2022-01-22 [facility] 18:11:00 Respitory Rate 2022-01-22 [facility] 18:11:00 Height 2022-01-22 165.1 cm [facility] 18:11:00 Weight 2022-01-22 [facility] 18:11:00 BMI Calculated 2022-01-22 [facility] 18:11:00 Systolic (mm Hg) 2021-06-07 [facility] rmann 16:24:00 Diastolic (mm Hg) 2021-06-07 [facility] H ermann 16:24:00 Heart Rate 2021-06-07 [facility] 16:24:00 Respitory Rate 2021-06-07 [facility] 16:24:00 Height 2021-06-07 165.1 cm [facility] 16:24:00 Weight 2021-06-07 [facility] 16:24:00 BMI Calculated 2021-06-07 [facility] 16:24:00 Systolic (mm Hg) 2021-02-08 [facility] rmann 19:28:00 Diastolic (mm Hg) 2021-02-08 [facility] ermann 19:28:00 Heart Rate 2021-02-08 [facility] 19:28:00 Respitory Rate 2021-02-08 [facility] 19:28:00 Height 2021-02-08 162.56 cm [facility] 19[facility]28:00 Weight 2021-02-08 [facility] 19:28:00 BMI Calculated 2021-02-08 [facility] 19:28:00 Systolic (mm Hg) 2021-01-18 [facility] rmann 16:07:00 Diastolic (mm Hg) 2021-01-18 [facility] ermann 16:07:00 Heart Rate 2021-01-18 [facility] 16:07:00 Respitory Rate 2021-01-18 [facility] 16:07:00 Height 2021-01-18 162.56 cm [facility] 16:07:00 Weight 2021-01-18 [facility] 16:07:00 BMI Calculated 2021-01-18 [facility] 16:07:00 Systolic (mm Hg) 2020-12-08 [facility] rmann 14:45:00 Diastolic (mm Hg) 2020-12-08 [facility] ermann 14:45:00 Heart Rate 2020-12-08 [facility] 14:45:00 Respitory Rate 2020-12-08 [facility] 14:45:00 Height 2020-12-08 [facility] 14:[facility] Weight 2020-12-08 Danielle Josephan n 14:45:00 BMI Calculated 2020-12-08 [facility] 14:45:00 Height 2019-04-02 167.64 cm [facility] 14:35:00 Weight 2019-04-02 [facility] 14:35:00 BMI Calculated 2019-04-02 [facility] 14:35:00 Systolic (mm Hg) 2018-07-03 [facility] 15:46:00 Diastolic (mm Hg) 2018-07-03 [facility] 15:46:00 Heart Rate 2018-07-03 [facility] 15:46:00 Height 2018-07-03 165.1 cm Danielle Josephan n 15:46:00 Weight 2018-07-03 [facility] 15:46:00 BMI Calculated 2018-07-03 [facility] 15:46:00 Procedures Procedure Date / Time Performing Source Performed Clinician POCT GLUCOSE (AUTOMATED) 2022-12-03 Radha Palomares [facility] 16:32:00 [facility] POCT GLUCOSE (AUTOMATED) 2022-12-03 Radha Palomares [facility] 13:46:00 Medical [facility] PHOSPHORUS 2022-12-03 [facility] xa 09:54:00 [facility] MAGNESIUM 2022-12-03 [facility] 09:54:00 [facility] HEPATIC FUNCTION PANEL 2022-12-03 [facility] ([id number]) (ALB,T.PRO,BILI 09:54:00 [facility] T,BU/BC,ALT,AST,ALK PHOS) BASIC METABOLIC PANEL (NA, K, 2022-12-03 [facility] CL, CO2, GLUCOSE, BUN, 09:54:00 [facility] CREATININE, CA) CORTISOL PM SERUM 2022-12-03 Marielle [facility] 03:45:00 [facility] TROPONIN I 2022-12-03 [facility] xa 03:45:00 [facility] CBC WITH DIFF 2022-12-03 [facility] xa 03:45:00 [facility] VITAMIN D, 25-OH 2022-12-03 Abdullah, Nik[facility] 03:45:00 [facility] POCT GLUCOSE (AUTOMATED) 2022-12-03 Radha Palomares [facility] 01:20:00 Medical [facility] LACTIC ACID WHOLE BLOOD 2022-12-02 [facility] 23:20:[address] ANGIOGRAM HEAD 2022-12-02 [facility] 21:19:00 [facility] [address] ANGIOGRAM NECK [facility] 21:[facility] HEAD WO CONTRAST 2022-12-02 [facility] 21:06:00 [facility] URINALYSIS 2022-12-02 [facility] 19:33:00 [facility] LIPASE 2022-12-02 [facility] 19:25:00 [facility] FERRITIN SERUM 2022-12-02 [facility] 19:25:00 [facility] TROPONIN I 2022-12-02 [facility] 19:25:00 [facility] FREE T4 2022-12-02 Radha Palomares [facility]as 19:25:00 [facility] THYROID STIMULATING HORMONE 2022-12-02 Radha Palomares [facility] 19:25:00 [facility] COMP. METABOLIC PANEL (34167) 2022-12-02 [facility] 19:25:00 [facility] IRON PANEL 2022-12-02 [facility] xas 19:25:00 [facility] CBC WITH DIFF [facility] PROTHROMBIN TIME / INR 2022-12-02 [facility] 19:25:00 [facility] ACTIVATED PARTIAL THRMPLAS 2022-12-02 [facility] 19:25:00 [facility] N-TERMINAL PRO-BNP 2022[facility] 19:25:[facility] FREE T3 2022-12-02 [facility] [place] 19:25:00 [facility] HB ECG ROUTINE & RHYTHM STRIP 2022-12-02 Ar[facility]th Mu[facility]oz [facility] 19:21:59 Medical Branch POCT GLUCOSE (AUTOMATED) 2022-12-02 Arleth Muñoz [facility] 18:59:00 [facility] POCT GLUCOSE (AUTOMATED) 2022-11-05 Grace, [facility] 16:07:00 [facility] POCT GLUCOSE (AUTOMATED) 2022-11-05 Fang, [facility] 12:43:00 [facility] POCT GLUCOSE (AUTOMATED) 2022-11-05 Vahidg, [facility] 00:53:00 [facility] POCT GLUCOSE (AUTOMATED) 2022-11-04 Grace, [facility] 22:35:00 [facility] POCT GLUCOSE (AUTOMATED) 2022-11-04 Grace, [facility] 16:57:00 [facility] MR BRAIN W WO CONTRAST 2022-11-04 [facility] 15:59:12 Shelia [facility] POCT GLUCOSE (AUTOMATED) 2022-11-04 Grace, [facility] 12:49:00 Medical Branch AMMONIA, PLASMA 2022-11-04 Adrian [facility] [place] 10:38:00 [facility] POCT GLUCOSE (AUTOMATED) 2022-11-04 Grace [facility] 01:02:00 [facility] POCT GLUCOSE (AUTOMATED) 2022-11-03 [facility], [facility] 22:07:00 [facility] POCT GLUCOSE (AUTOMATED) 2022-11-03 Fanluis, [facility] 17:07:00 [facility] POCT GLUCOSE (AUTOMATED) 2022-11-03 Grace, [facility] 13:18:00 [facility] POCT GLUCOSE (AUTOMATED) 2022-11-03 Grace, [facility] 02:34:00 [facility] POCT GLUCOSE (AUTOMATED) 2022-11-02 Grace, [facility] 23:02:00 [facility] POCT GLUCOSE (AUTOMATED) 2022-11-02 Matt Edwards [facility] 17:18:00 [facility] POCT GLUCOSE (AUTOMATED) 2022-11-02 [facility] 15:10:00 [facility] URINE CULTURE 2022-11-02 [facility] 11:21:00 [facility] ELECTROENCEPHALOGRAM 2022-11-02 [facility] URINE DRUG (IMMUNOASSAY) - 2022-11-01 Misael Cheema [facility] COMPREHENSIVE DRUG SCREEN 20:21:00 [facility] URINALYSIS 2022-11-01 Misael Cheema [facility] 20:21:00 [facility] CT ANGIOGRAM HEAD 2022-11-01 Misael Cheema [facility] 20:00:00 [facility] CT ANGIOGRAM NECK 2022-11-01 Misael Cheema [facility] 20:00:00 [facility] CT CERVICAL SPINE WO CONTRAST 2022-11-[address] [facility] 19:59:[address] [place] [address] HEAD WO CONTRAST 2022-11-01 Misael Cheema [facility] 19:59:00 [facility] POCT GLUCOSE (AUTOMATED) 2022-11-01 Misael Cheema [facility] 19:24:00 [facility] CREATINE KINASE 2022-11-01 Misael Cheema [facility] 19:21:00 [facility] TROPONIN I 2022-11-01 Misael Cheema [facility] xa 19:21:00 [facility] HEPATIC FUNCTION PANEL 2022-11-01 [facility] ([id number]) (ALB,T.PRO,BILI 19:21:00 [facility] T,BU/BC,ALT,AST,ALK PHOS) COMP. METABOLIC PANEL ([id number]) 2022-11-[address] [facility] 19:21:00 [facility] IRON PANEL 2022-11-01 [facility] xa 19:21:00 [facility] ETHANOL 2022-11-01 Misael Cheema [facility] 19:21:00 [facility] CBC WITH DIFF 2022-11-01 Misael Cheema [facility] xa 19:21:00 Medical Branch GLYCOSYLATED HEMOGLOBIN (A1C) 2022-11-01 Shannan Murray [facility] 19:21:00 [facility] HOSPITAL ADMISSION 2022-11-01 Doctor Unassigned, [facility] 05:01:00 [place] [facility] EKG-12 LEAD 2022-09-08 Marcial Vaughan [facility] ex 07:48:44 Medical Branch XR STROKE CHEST 1 VW 2022-09-08 Marcial Vaughan [facility] 06:25:23 [facility] URINALYSIS 2022-09-08 Alissapr [facility] 06:21:00 [facility] CT STROKE ANGIOGRAM HEAD 2022-09-08 Marcial Vaughan [facility] 06:11:00 [facility] CT STROKE ANGIOGRAM NECK 2022-09-08 Marcial Vaughan [facility] 06:11:00 Medical [facility] TROPONIN I 2022-09-08 Marcial Vaughan [facility] 05:45:00 Medical Branch BASIC METABOLIC PANEL (NA, K, 2022-09-08 Marcial Vaughan [facility] CL, CO2, GLUCOSE, BUN, 05:45:00 [facility] [place] CREATININE, CA) CBC WITHOUT DIFF 2022-09-08 Marcial Vaughan [facility] 05:45:00 Medical [facility] PROTHROMBIN TIME / INR 2022-09-08 Marcial Vaughan [facility] 05:45:00 Medical Branch ACTIVATED PARTIAL THRMPLAS 2022-09-08 Marcial Vaughan [facility] 05:45:00 Medical Branch COVID-19 (ID NOW RAPID 2022-09-08 Marcial Vaughan [facility] TESTING) 05:45:00 [facility] POCT GLUCOSE (AUTOMATED) 2022-09-08 Marcial Vaughan [facility] 05:40:00 Medical Branch POWER OF NEUROSURGERY SPINE PHYSICIAN 2022-01-30 Doctor Unassigned, [facility] 05:01:00 [place] [facility] [place] POCT GLUCOSE (AUTOMATED) [facility]22[facility]01-16 [facility] 17:[facility]00 [facility] POCT GLUCOSE (AUTOMATED) 2022-01-16 [facility] 13:53:00 [facility] URINALYSIS 2022-01-16 Madhavi rByan [facility] 09:18:00 [facility] URINE DRUG (IMMUNOASSAY) - 2022-01-16 [facility] 09:17:00 Medica l Branch MAGNESIUM 2022-01-[address] [facility] xa 09:14:00 [facility] VITAMIN B12, LEVEL 2022-01-16 [facility] 09:14:00 [facility] BASIC METABOLIC PANEL (NA, K, 2022-01-16 [facility] CL, CO2, GLUCOSE, BUN, 09:14:00 [facility] CREATININE, CA) LIPID PANEL ([id number])(TOTAL 2022-01-16 [facility] CHOLESTEROL, TRIGLYCERIDES, 09:14:00 [facility] HDL) POCT GLUCOSE (AUTOMATED) 2022-01-16 [facility] 01:25:00 [facility] MR STROKE BRAIN WO CONTRAST 2022-01-16 [facility] 00:30[facility]17 [facility] URINE CULTURE 2022-01-15 [facility] 21:41:00 [facility] CT STROKE ANGIOGRAM HEAD 2022-01-15 Madhavi Bryan [facility] 17:16:[address] STROKE ANGIOGRAM NECK 2022-01-15 Madhavi Bryan [facility] 17:16:[address] STROKE PERFUSION W 2022-01-15 Madhavi Bryan [facility] CONTRAST 17:16:[address] STROKE HEAD WO CONTRAST 2022-01-[address] [facility] 17:02:00 Medical Branch MAGNESIUM 2022-01-15 [facility] 16:43:00 [facility] TROPONIN I 2022-01-15 Madhavi Bryan [facility] 16:43:00 Medical Branch THYROID STIMULATING HORMONE 2022-01-15 Ofelia Mondragon [facility] 16:43:00 [facility] [place] HEPATIC FUNCTION PANEL 2022-01-15 Ofelia Mondragon [facility] ([id number]) (ALB,T.PRO,BILI 16:43:00 Medical Branch T,BU/BC,ALT,AST,ALK PHOS) BASIC METABOLIC PANEL (NA, K, 2022-01-15 Madhavi Bryan [facility] CL, CO2, GLUCOSE, BUN, 16:43:00 [facility] [place] CREATININE, CA) CBC WITHOUT DIFF 2022-01-15 Madhvai Bryan [facility] 16:43:00 Medical Branch GLYCOSYLATED HEMOGLOBIN (A1C) 2022-01-[address] [facility] 16:43:00 [facility] [place] PROTHROMBIN TIME / INR 2022-01-15 Madhavi Bryan [facility] 16:43:00 [facility] ACTIVATED PARTIAL THRMPLAS 2022-01-[address] [facility] 16:43:00 [facility] COVID-19 (ID NOW RAPID 2022-01-15 Madhavi Bryan [facility] TESTING) 16:43:00 [facility] [place] LAB ONLY COVID INTERPRETATION 2022-01-15 Madhavi Bryan [facility] 16:43:00 [facility] HB ECG ROUTINE & RHYTHM STRIP 2022-01-15 Madhavi Bryan [facility] 16:37:15 [facility] POCT GLUCOSE (AUTOMATED) 2022-01-15 Madhavi Bryan [facility] 16:37:00 [facility] [place] HOSPITAL ADMISSION 2022-01-15 Doctor Unassigned, [facility] 05:01:00 [place] [facility] POWER OF NEUROSURGERY SPINE PHYSICIAN 2021-10-10 Doctor Unassigned, [facility] 05:01:00 [place] [facility] POCT GLUCOSE (AUTOMATED) 2021-09-23 [facility] 16:16:00 [facility] TRANSTHORACIC ECHO (TTE) 2021-09-23 [facility] COMPLETE W/ CONTRAST 15:51:[address] [facility] POCT GLUCOSE (AUTOMATED) 2021-09-23 [facility] 12:18:00 [facility] [place] POCT GLUCOSE (AUTOMATED) 2021-09-23 Fan Prince [facility] 01:31:00 Medical Branch POCT GLUCOSE (AUTOMATED) 2021-09-22 Sun Princeshua [facility] 21:09:00 Medical Branch POCT GLUCOSE (AUTOMATED) 2021-09-22 Darian Glass [facility] 16:30:00 Medical Branch DUPLEX VENOUS LEGS BILATERAL 2021-09-22 [facility] 15:23:[address] CHEST PULMONARY ANGIOGRAM 2021-09-22 Darian Glass [facility] 10:43:00 [facility] TROPONIN I 2021-09-22 [facility] 10:09[facility]00 [facility] COMP. METABOLIC PANEL ([id number]) 2021-09-[address] [facility] 10:09:00 [facility] N-TERMINAL PRO-BNP 2021-09-22 Quan [facility] 10:09:00 [facility] HB ECG ROUTINE & RHYTHM STRIP 2021-09-[address] [facility] 09:42:38 Medical Branch CBC WITH DIFF 2021-09-22 Quan [facility] 09:34:00 Medical Branch PROTHROMBIN TIME / INR 2021-09-22 Darian Glass [facility] 09:34:00 Medical Branch ACTIVATED PARTIAL THRMPLAS 2021-09-22 Darian Glass [facility] 09:34:00 [facility] XR CHEST 1 VW 2021-09-22 Quan [facility] 09:26:09 Medical Branch NOTICE OF PRIVACY PRACTICES 2021-09-22 Doctor Unassigned, [facility] 08:51:55 [facility] CONSENT/REFUSAL FOR DIAGNOSIS 2021-09-22 Doctor Unassigned, [facility] AND TREATMENT 08:49:29 [place] [facility] XR CHEST 1 VW 2021-04-29 Madhavi Bryan [facility] 16:12:54 Medical [facility] XR FOOT 3+ VW LEFT 2021-04-29 Madhavi Bryan [facility] 16:12:[address] TRAUMA HEAD WO CONTRAST 2021-04-[address] [facility] 16:01:[address] TRAUMA CERVICAL SPINE WO 2021-04-29 Madhavi Bryan [facility] CONTRAST 16:01:35 Medical Branch NOTICE OF PRIVACY PRACTICES 2021-04-29 Doctor Unassigned, [facility] 15:17:27 [place] [place] NOTICE OF PRIVACY PRACTICES 2021-04-29 Doctor Unassigned, [facility] 15:17:01 [place] [place] CONSENT/REFUSAL FOR DIAGNOSIS 2021-04-29 Doctor Unassigned, [facility] AND TREATMENT 15:16:10 [place] [facility] [place] PATIENT QUESTIONNAIRE 2021-02-14 Doctor Unassigned, [facility] 05:01:00 [place] [facility] POCT GLUCOSE (AUTOMATED) 2021-01-24 [facility] 16:23:00 [facility] POCT GLUCOSE (AUTOMATED) 2021-01-24 [facility] 12:34:00 [facility] URINALYSIS 2021-01-24 Mickey chuck [facility] 12:21:00 [facility] CBC WITH DIFF 2021-01-24 [facility] 08:13:00 [facility] GLYCOSYLATED HEMOGLOBIN (A1C) 2021-01-24 [facility] 08:13:00 [facility] BASIC METABOLIC PANEL (NA, K, 2021-01-24 [facility] CL, CO2, GLUCOSE, BUN, 08:02:00 Medical [place] CREATININE, CA) POCT GLUCOSE (AUTOMATED) 2021-01-24 [facility] 01:20:00 [facility] POCT GLUCOSE (AUTOMATED) 2021-01-23 [facility] 21:27:00 [facility] POCT GLUCOSE (AUTOMATED) 2021-01-23 [facility] 16:35:00 [facility] CAROTID DUPLEX BILATERAL - BY 2021-01-23 [facility] VASCULAR LAB 15:19:00 [facility] TRANSTHORACIC ECHO (TTE) 2021-01-23 Carmen Brennan [facility] COMPLETE 14:50:21 [facility] [place] MR BRAIN WO CONTRAST 2021-01-23 Marielle, [facility] 14:06:16 Medical Branch POCT GLUCOSE (AUTOMATED) 2021-01-23 [facility] 12:39:00 Medical Branch BASIC METABOLIC PANEL (NA, K, 2021-01-23 Carmen Brennan [facility] CL, CO2, GLUCOSE, BUN, 08:53:00 [facility] [place] CREATININE, CA) CBC WITH DIFF 2021-01-23 Mika [facility] 08:53:00 Medical Branch POCT GLUCOSE (AUTOMATED) 2021-01-23 [facility] 01:25:00 Medical Branch POCT GLUCOSE (AUTOMATED) 2021-01-22 [facility] 21:35:00 Medical Branch POCT GLUCOSE (AUTOMATED) 2021-01-22 [facility] 17:15:00 Medical Branch POCT GLUCOSE (AUTOMATED) 2021-01-22 [facility] 12:33:00 Medical Branch BASIC METABOLIC PANEL (NA, K, 2021-01-22 [facility] CL, CO2, GLUCOSE, BUN, 08:48:00 [facility] [place] CREATININE, CA) CBC WITH DIFF 2021-01-22 [facility] xa 08:48:00 Medical Branch POCT GLUCOSE (AUTOMATED) 2021-01-22 [facility] 01:06:00 Medical Branch POCT GLUCOSE (AUTOMATED) 2021-01-21 [facility] 22:01:00 Medical Branch XR CHEST 1 VW 2021-01-21 Carmen Brennan [facility] 21:22:59 [facility] [place] POCT GLUCOSE (AUTOMATED) 2021-01-21 [facility] 20:54:00 Medical Branch POCT GLUCOSE (AUTOMATED) 2021-01-21 [facility] 20:48:00 Medical Branch POCT GLUCOSE (AUTOMATED) 2021-01-21 [facility] 16:35:[address] ANGIOGRAM HEAD 2021-01-21 [facility] 15:38:[address] ANGIOGRAM NECK 2021-01-21 [facility] 15:38:50 [facility] POCT GLUCOSE (AUTOMATED) 2021-01-21 [facility] 13:16:00 Medical Branch THYROID STIMULATING HORMONE 2021-01-21 [facility] 11:25:00 Medical Branch BASIC METABOLIC PANEL (NA, K, 2021-01-21 Carmen Brennan [facility] CL, CO2, GLUCOSE, BUN, 11:25:00 [facility] CREATININE, CA) LACTIC ACID WHOLE BLOOD 2021-01-21 [facility] 08:56:[address] ABDOMEN PELVIS W CONTRAST 2021-01-[address] [facility] 00:43:39 Medical Branch XR CHEST 1 VW 2021-01-21 [facility] xas 00:03:[address] HEAD WO CONTRAST 2021-01-20 [facility] 23:13:11 Medical Branch URINALYSIS 2021-01-20 [facility] xa 22:49:00 Medical Branch COVID-19 (ID NOW RAPID 2021-01-20 [facility] TESTING) 22:44:00 [facility] LAB ONLY COVID INTERPRETATION 2021-01-20 [facility] 22:44:00 Medical Branch TROPONIN I 2021-01-20 [facility] xa 22:17:00 Medical Branch COMP. METABOLIC PANEL ([id number]) 2021-01-20 [facility] 22:17:00 Medical Branch CBC WITH DIFF 2021-01-20 [facility] xa 22:17:00 Medical Branch LACTIC ACID WHOLE BLOOD 2021-01-20 [facility] 22:08:00 Medical Branch ED SPLINT APPLICATION 2020-02-14 Jayne Lipscomb [facility] 21:02:00 Medical Branch XR FOOT 3+ VW RIGHT 2020-02-14 Tavia Jayne [facility] 20:06:52 Medical Branch NOTICE OF PRIVACY PRACTICES 2020-02-14 Doctor Unassigned, [facility] 19:17:32 [place] CONSENT/REFUSAL FOR DIAGNOSIS 2020-02-14 Doctor Unassigned, [facility] AND TREATMENT 19:17:05 [place] [facility] COMP. METABOLIC PANEL (30072) 2019-09-20 [facility] URINALYSIS 2019-09-20 Jayne Lipscomb [facility] xa 19:05:00 Medical Branch CBC WITH DIFFERENTIAL 2019-09-20 Jayne Lipscomb [facility] 19:05:00 Medical Branch CORONAVIRUS COVID-19 TESTING 2019-09-20 Jayne Lipscomb [facility] 19:05:00 Medical Branch XR CHEST 1 VW COVID 2019-09-20 Jayne Lipscomb [facility] 18:27:24 Medical Branch POCT GLUCOSE (AUTOMATED) 2019-02-15 Tod Singh [facility] 12:32:00 Medical Branch URINALYSIS 2019-02-15 Darian Glass [facility] xa 04:09:[address] CHEST PULMONARY ANGIOGRAM 2019-02-15 Casa Rivera [facility] 02:31:13 Medical Branch TROPONIN I 2019-02-15 Casa Rivera [facility] 01:14:00 Medical Branch COMP. METABOLIC PANEL (31021) 2019-02-[address] [facility] 01:14:00 Medical Branch CBC WITH DIFFERENTIAL 2019-02-15 Casa Rivera [facility] 01:14:00 Medical Branch PROTHROMBIN TIME / INR 2019-02-15 Casa Rivera [facility] 01:14:00 Medical Branch ACTIVATED PARTIAL THRMPLAS 2019-02-15 Casa Rivera [facility] 01:14:00 Medical Branch N-TERMINAL PRO-BNP 2019-02-15 Casa Rivera [facility] 01:14:00 Medical Branch EKG-12 LEAD 2019-02-15 Casa Rivera [facility] 00:52:44 Medical Branch CONSENT/REFUSAL FOR DIAGNOSIS 2019-02-15 Doctor Unassigned, [facility] AND TREATMENT 00:29:32 [place] [facility] NOTICE OF BILLING PRACTICES 2019-01-31 Doctor Unassigned, [facility] FOR MEDICARE PATIENTS 16:25:34 [place] [facility] anch Stent placement [facility] Plan of Care Planned Activity Planned Date Details Comments Source Future Scheduled 2023-01-03 [facility] 11:34:13 malignant neoplasm of colon (procedure) [code = 663203365] Future Scheduled 2023-01-03 [facility] Test 11:34:13 malignant neoplasm of colon (procedure) [code = 264521382] Future Scheduled 2023-01-03 [facility] Test 11:34:13 malignant neoplasm of colon (procedure) [code = 918829624] Future Scheduled 2023-01-03 Hepatitis C screening [facility] Test 11:34:13 (procedure) [code = 790404614] Future Scheduled 2023-01-03 BREAST CANCER [facility] Test 11:34:13 SCREENING [code = BREAST CANCER SCREENING] Future Scheduled 2023-01-03 Screening for [facility] Test 11:34:13 malignant neoplasm of colon (procedure) [code = 683898498] Future Scheduled 2023-01-03 [facility] Test 11:34:13 malignant neoplasm of colon (procedure) [code = 959683630] Future Scheduled 2023-01-03 SHINGLES VACCINES ([facility] 11:34:13 of 2) [code = SHINGLES VACCINES (1 of 2)] Future Scheduled 2023-01-03 65+ [facility]OCOCCAL [facility] 11:34:13 VACCINE (2 - PPSV23 if available, else PCV20) [code = 65+ PNEUMOCOCCAL VACCINE (2 - PPSV23 if available, else PCV20)] Future Scheduled 2023-01-03 COVID-19 VACCINE (5 - [facility] Test 11:34:13 Moderna series) [code = COVID-19 VACCINE (5 - Moderna series)] Future Scheduled 2023-01-03 INFLUENZA VACCINE [facility] Test 11:34:13 [code = INFLUENZA VACCINE] Future Scheduled 2022-12-20 Screening for [facility] Test 02:13:19 malignant neoplasm of colon (procedure) [code = 439935466] Future Scheduled 2022-12-20 [facility] Test 02:13:19 malignant neoplasm of colon (procedure) [code = 643039621] Future Scheduled 2022-12-20 Screening for [facility] Test 02:13:19 malignant neoplasm of colon (procedure) [code = 538109781] Future Scheduled 2022-12-20 Hepatitis C screening [facility] Test 02:13:19 (procedure) [code = 966157048] Future Scheduled 2022-12-20 BREAST CANCER [facility] Test 02:13:19 SCREENING [code = BREAST CANCER SCREENING] Future Scheduled 2022-12-20 Screening for [facility] Test 02:13:19 malignant neoplasm of colon (procedure) [code = 548200142] Future Scheduled 2022-12-20 Screening for [facility] Test 02:13:19 malignant neoplasm of colon (procedure) [code = 281806037] Future Scheduled 2022-12-20 SHINGLES VACCINES (1 [facility] 02:13:19 of 2) [code = SHINGLES VACCINES (1 of 2)] Future Scheduled 2022-12-20 65+ PNEUMOCOCCAL [facility] Test 02:13:19 VACCINE (2 - PPSV23 if available, else PCV20) [code = 65+ PNEUMOCOCCAL VACCINE (2 - PPSV23 if available, else PCV20)] Future Scheduled 2022-12-20 COVID-19 VACCINE (5 - [facility] Test 02:13:19 Moderna series) [code = COVID-19 VACCINE (5 - Moderna series)] Future Scheduled 2022-12-20 INFLUENZA VACCINE Method [facility] Test 02:13:19 [code = INFLUENZA VACCINE] Future Scheduled 2022-12-20 Screening for [facility] Test 02:13:19 malignant neoplasm of colon (procedure) [code = 534984519] Future Scheduled 2022-12-20 Screening for [facility] Test 02:13:19 malignant neoplasm of colon (procedure) [code = 020242123] Future Scheduled 2022-12-20 Screening for [facility] Test 02:13:19 malignant neoplasm of colon (procedure) [code = 408399806] Future Scheduled 2022-12-20 Hepatitis C screening [facility] Test 02:13:19 (procedure) [code = 477544900] Future Scheduled 2022-12-20 BREAST CANCER [facility] Test 02:13:19 SCREENING [code = BREAST CANCER SCREENING] Future Scheduled 2022-12-20 Screening for [facility] Test 02:13:19 malignant neoplasm of colon (procedure) [code = 627949179] Future Scheduled 2022-12-20 Screening for [facility] Test 02:13:19 malignant neoplasm of colon (procedure) [code = 586506546] Future Scheduled 2022-12-20 SHINGLES VACCINES (1 Met [facility] Test 02:13:19 of 2) [code = SHINGLES VACCINES (1 of 2)] Future Scheduled 2022-12-20 65+ PNEUMOCOCCAL [facility] Test 02:13:19 VACCINE (2 - PPSV23 if available, else PCV20) [code = 65+ PNEUMOCOCCAL VACCINE (2 - PPSV23 if available, else PCV20)] Future Scheduled 2022-12-20 COVID-19 VACCINE (5 - [facility] Test 02:13:19 Moderna series) [code = COVID-19 VACCINE (5 - Moderna series)] Future Scheduled 2022-12-20 INFLUENZA VACCINE [facility] Test 02:13:19 [code = INFLUENZA VACCINE] Future Scheduled 2022-12-13 Screening for [facility] Test 14:58:31 malignant neoplasm of colon (procedure) [code = 838478977] Future Scheduled 2022-12-13 Screening for [facility] Test 14:58:31 malignant neoplasm of colon (procedure) [code = 756577314] Future Scheduled 2022-12-13 Screening for [facility] Test 14:58:31 malignant neoplasm of colon (procedure) [code = 105880071] Future Scheduled 2022-12-13 Hepatitis C screening [facility] Test 14:58:31 (procedure) [code = 767210884] Future Scheduled 2022-12-13 BREAST CANCER [facility] Test 14:58:31 SCREENING [code = BREAST CANCER SCREENING] Future Scheduled 2022-12-13 Screening for [facility] Test 14:58:31 malignant neoplasm of colon (procedure) [code = 419156887] Future Scheduled 2022-12-13 Screening for [facility] Test 14:58:31 malignant neoplasm of colon (procedure) [code = 873894773] Future Scheduled 2022-12-13 SHINGLES VACCINES (1 Met [facility] Test 14:58:31 of 2) [code = SHINGLES VACCINES (1 of 2)] Future Scheduled 2022-12-13 65+ PNEUMOCOCCAL [facility] Test 14:58:31 VACCINE (2 - PPSV23 if available, else PCV20) [code = 65+ PNEUMOCOCCAL VACCINE (2 - PPSV23 if available, else PCV20)] Future Scheduled 2022-12-13 COVID-19 VACCINE (4 - [facility] Test 14:58:31 Moderna series) [code = COVID-19 VACCINE (4 - Moderna series)] Future Scheduled 2022-12-13 INFLUENZA VACCINE [facility] Test 14:58:31 [code = INFLUENZA VACCINE] Future Scheduled 2022-12-03 Screening for [facility] Test 20:48:00 malignant neoplasm of colon (procedure) [code = 418751922] Future Scheduled 2022-12-03 Screening for [facility] Test 20:48:00 malignant neoplasm of colon (procedure) [code = 827876143] Future Scheduled 2022-12-03 Screening for [facility] Test 20:48:00 malignant neoplasm of colon (procedure) [code = 250402709] Future Scheduled 2022-12-03 Hepatitis C screening [facility] Test 20:48:00 (procedure) [code = 212099423] Future Scheduled 2022-12-03 BREAST CANCER [facility] Test 20:48:00 SCREENING [code = BREAST CANCER SCREENING] Future Scheduled 2022-12-03 Screening for [facility] Test 20:48:00 malignant neoplasm of colon (procedure) [code = 642124636] Future Scheduled 2022-12-03 Screening for [facility] Test 20:48:00 malignant neoplasm of colon (procedure) [code = 306378672] Future Scheduled 2022-12-03 SHINGLES VACCINES (1 Met [facility] Test 20:48:00 of 2) [code = SHINGLES VACCINES (1 of 2)] Future Scheduled 2022-12-03 65+ PNEUMOCOCCAL [facility] Hospital Test 20:48:00 VACCINE (2 - PPSV23 if available, else PCV20) [code = 65+ PNEUMOCOCCAL VACCINE (2 - PPSV23 if available, else PCV20)] Future Scheduled 2022-12-03 COVID-19 VACCINE (4 - [facility] Hospital Test 20:48:00 Moderna series) [code = COVID-19 VACCINE (4 - Moderna series)] Future Scheduled 2022-12-03 INFLUENZA VACCINE [facility] Test 20:48:00 [code = INFLUENZA VACCINE] Encounters Start End Encounter Admission Attending Care Care Encounter Source Date/Time Date/Time Type Type Clinicians Facility Department ID 2021-03-31 Emergency [facility] [id number] Univers 17:15:00 ithanna [facility] 2019-08-06 Inpatient Dlel [place] [facility] JEANINE [id number] 14:29:00 Dell [place] [facility] 2022-12-19 2022-12-19 Outpatient [facility] [id number] [place] 10:01:07 10:01:07 [id number] F Harish 2022-12-05 2022-12-05 Transition MARGARETTE Vance 1.2.840.114 [id number] Univers 00:00:00 00:00:00 of [place] GONZALEZ 350.1.13.10 [place] [id number] [facility] [address] [place] 2022-12-02 2022-12-03 Outpatient X MARIELLE [facility] ALTA [id number] Univers 13:56:00 15:40:00 RADHA corona [facility] 2022-12-02 2022-12-03 Emergency Tracefrancisco Maoaleksandra F [facility] 1.2. 840.114 [id number] Univers 13:56:00 15:40:00 Radha Palomares 350.1.13.10 ity of [place] 4.2.7.2.686 [place] [facility] [id number] [facility] [address] 2022-11-20 2022-11-20 Outpatient R SANTOSH GARZA [facility] [id number] Univers 10:00:00 10:00:00 SANTOSH GARZA [facility] 2022-11-06 2022-11-06 Transition MARGARETTE Vance 1.2.840.114 [id number] Univers 00:00:00 00:00:00 of [place] GONZALEZ 350.1.13.10 [place] [id number] [facility] [address] 2022-11-01 2022-11-05 Inpatient U MEDINA, [facility] CELINA [id number] Univers 13:57:00 17:48:00 [facility] ity o f [facility] 2022-11-01 2022-11-05 [facility] Misael Cheema 1.2.840.11 [id number] Univers 13:57:00 17:48:00 Encounter Matt Edwards 350.1.13.10 ity [facility] 4.2.7.2.686 [place] [id number] [facility] [address] 2022-10-08 2022-10-08 Care Christin Christine 2.16.840. 2.16.840.1. [id number] Devoted 14:30:00 15:00:00 [employer] 1.651868. 501295.4.6. R8G Medical 4.6.84794 [id number] 2022-10-06 2022-10-06 [place]patient hpham29 [place] [id number] [id number] Devoted 00:00:00 00:00:00 0506 Medica l Group 2022-09-11 2022-09-11 Care Andreia Poll 2.16.840. 2.16.840.1. C [id number] Devoted 13:30:00 14:00:00 [employer] 1.902478. 326915.4.6. W9H Medical 4.6.04514 [id number] 2022-09-08 2022-09-08 Emergency X [facility] ERT [id number] Univers 00:46:00 05:02:00 MARCIAL ity of [facility] 2022-09-08 2022-09-08 Emergency [facility] 1.2.295.661 [id number] Univers 00:46:00 05:02:00 Marcial HASSAN 350.1.13.10 ity [facility] 4.2.7.2.686 [facility] [id number] [facility] [address] 2022-09-07 2022-09-07 Outpatient SFA [facility] [id number] [place] 15:55:13 15:55:13 [id number] Bonnie Moreira 2022-08-29 2022-08-29 IHC Larisa 2.16.840. 2.16.840.1. CLAC [id number] Devoted 17:30:00 18:00:00 Graduation M[facility] 1.102712. 654403.4.6. F5F Medical 4.6. [id number] 2022-07-05 2022-07-05 Ambulatory MHIE MNA [id number] Memoria 16:30:00 16:30:00 Pre-Reg Neurology 19 l Jarocho Josephann 2022-07-05 2022-07-05 Ambulatory MHIE MNA [id number] Memoria 16:30:00 16:30:00 Pre-Reg Neurology 19 l [place] 2022-07-05 2022-07-05 Outpatient MHIE MHIE [id number] Memoria 10:30:00 10:30:00 19 l Yong 2022-07-05 2022-07-05 [facility] [id number] 10:30:00 10:30:00 Piotrjannet Baker 2022-06-11 2022-06-11 IHC Follow Larisa 2.16.840. 2.16.840.1. C [id number] Devoted 15:30:00 16:30:00 Up [place] 1.020167. 821411.4.6. G8J Medical 4.6 [id number] 2022-05-18 2022-05-18 CAV Nimesh Parra 2.16.840. 2.16.840.1. CLA [id number] [facility]oted 20:00:00 21:00:00 1.883264. 444157.4.6. 2J8 Medical 4.6.71222 [id number] 2022-04-20 2022-04-20 IHC Follow Nimesh Parra 2.16.840. 2.16.840.1. [id number] Devoted 19:30:00 20:00:00 Up 1.932030. 345147.4.6. EZ2 Medical 4.6.15279 [id number] 2022-04-03 2022-04-03 IHC Follow Nimesh Parra 2.16.840. 2.16.840.1. [id number] Devoted 18:30:00 19:00:00 Up 1.210519. 359099.4.6. 487 Medical 4.6.46674 [id number] 2022-03-26 2022-03-26 Outpatient R GONSALO [facility] [id number] [facility] 10:30:00 10:30:00 VERNA corona [facility] 2022-03-13 2022-03-14 Outpatient nullFlavo MNA [id number] Memoria 18:15:00 04:59:59 r Neurology 18 l Vigolitzy Josephann 2022-03-13 2022-03-14 Outpatient nullFlavo MNA [id number] Memoria 18:15:00 04:59:59 r Neurology 18 l [place] 2022-03-13 2022-03-13 Outpatient [facility] [id number] 13:15:00 23:59:59 Piotr Jamar [place] 2022-03-13 2022-03-13 Outpatient MHIE IE [id number] Memoria 13:15:00 13:15:00 18 [place]to [place] 2022-03-08 2022-03-08 IHC Follow Nimesh Parra 2.16.840. 2.16.840.1. [id number] Devoted 14:30:00 15:30:00 Up 1.414817. 192119.4.6. RAG Medical 4.6.73513 [id number] 2022-01-30 2022-01-30 Telephone SARA Tavares 1.2.840.114 [id number] Univers 00:00:00 00:00:00 Coretta SIMPSON 350.1.13.10 i ty of [facility] 4.2.7.2.686 [place] [id number] [address] 2022-01-30 2022-01-30 Orders Doctor RUIZ 1.2.840.114 [id number] Univers 00:00:00 00:00:00 Only UnassCALVIN london 350.1.13.10 ity of [place] [facility] 4.2.7.2.686 [place] [id number] [facility] [address] 2022-01-25 2022-01-25 Telephone SARA Tavares 1.2.840.114 [id number] Univers 00:00:00 00:00:00 Coretta Serrano CALVIN 350.1.13.10 i ty of [facility] 4.2.7.2.686 [place] [id number] [facility] 025 [address] 2022-01-22 2022-01-23 Outpatient nullFlavo MNA [id number] [facility] 18:00:00 04:59:59 r Neurology 17 l Jarocho [place] 2022-01-22 2022-01-23 Outpatient nullFlavo MNA [id number] [facility] 18:[facility]00 04:59:59 r Neurology 17 l [place] 2022-01-22 2022-01-22 Outpatient SHYLA JosueMISCHER MHMISCHER [id number] 13:00:00 23:59:59 Piotr 17 Samuel 2022-01-22 2022-01-22 Outpatient MHIE MHIE [id number] [facility] 13:00:00 13:00:00 17 [place]to [place] 2022-01-22 2022-01-22 Telephone SARA Tavares 1.2.840.114 [id number] Univers 00:00:00 00:00:00 Coretta Serrano CALVIN 350.1.13.10 i ty of [place] [address]96.2.7.2.686 [place] [id number] [facility] [address] [place] 2022-01-22 2022-01-22 Telephone SARA Tavares 1.2.840.114 [id number] Univers 00:00:00 00:00:00 Coretta Serrano CALVIN 350.1.13.10 i ty of [place] [address].7.2.686 [place] [id number] [facility] [address] 2022-01-17 2022-01-17 Transition MARGARETTE Vance 1.2.840.114 [id number] Univers 00:00:00 00:00:00 of Care Nurys CARLOS 350.1.13.10 [place] [id number] [facility] [address] 2022-01-15 2022-01-16 Outpatient U SETH, [facility] CELINA [id number] Univers 11:32:00 17:45:00 SAMUEL ity of [facility] 2022-01-15 2022-01-16 Emergency Madhavi Bryan 1.2.8 40.114 [id number] Univers 11:32:00 17:45:00 Samuel Ann 350.1.13.10 ity of [facility] 4.2.7.2.686 [place] [id number] [facility] [address] 2022-01-11 2022-01-11 IHC Follow Nimesh Parra 2.16.840. 2.16.840.1. [id number] Devoted 16:00:00 17:00:00 Up 1.311018. 194244.4.6. G9U Medical 4.6.52027 [id number] 2022-01-03 2022-01-05 Outside nullFlavo MNA [id number] Memoria 14:11:30 04:59:59 Medical r Neurology 04 l Records Jarocho Josephann 2022-01-03 2022-01-05 Outside nullFlavo MNA [id number] Memoria 14:11:30 04:59:59 Medical r Neurology 04 l Records Jarocho Josephann 2022-01-03 2022-01-04 Outpatient MHMISCHER MHMISCHER [id number] 09:11:30 23:59:59 04 2021-12-15 2021-12-15 Outpatient [email or web address] DMG [facility] [id number] Devoted 03:39:00 03:39:00 0715 Medica l Group 2021-12-15 2021-12-15 Outpatient [email or web address] DMG RODY [id number] Devoted 00:00:00 00:00:00 0404 Medica l Group 2021-12-01 2021-12-01 Outpatient [email or web address] DMG RODY [id number] 022 Devoted 10:00:00 10:00:00 0701 Medica l Group 2021-11-22 2021-11-22 Outpatient [email or web address] DMG RODY [id number] 022 Devoted 01:41:00 01:41:00 0622 Medica l Group 2021-11-07 2021-11-07 IHC Follow Nimesh Parra 2.16.840. 2.16.840.1. [id number] Devoted 20:00:00 20:30:00 Up 1.071953. 336393.4.6. 5K7 Medical 4.6.95841 [id number] 2021-10-10 2021-10-10 Orders Doctor SARA 1.2.840.114 [id number] Univers 00:00:00 00:00:00 Only Unassigned, CALVIN 350.1.13.10 ity of [place] [facility] 4.2.7.2.686 [place] [id number] [facility] [address]9 [address] 2021-09-25 2021-09-25 Transition MARGARETTE Vance 1.2.840.114 [id number] Univers 00:00:00 00:00:00 of Care Nurys GONZALEZ 350.1.13.10 [place] [id number] [facility] [address] 2021-09-22 2021-09-23 Outpatient X FAN PRINCE [facility] [id number] Univers 04:01:00 15:37:00 FAN PRINCE [facility] 2021-09-22 2021-09-23 Emergency Darian Glass [facility] 1.2.840. 114 [id number] Univers 04:01:00 15:37:00 Fan Prince [facility] 350.1.13.10 ity of [facility] 4.2.7.2.686 [place] [phone] [address] ([facility]) 2021-09-19 2021-09-19 IHC Follow Nimesh Parra 2.16.840. 2.16.840.1. [id number] Devoted 18:00:00 19:00:00 Up 1.954539. 240986.4.6. FUC Medical 4.6.40169 [id number] 2021-09-05 2021-09-05 Ambulatory nullFlavo MNA [id number] Memoria 14:30:00 14:30:00 Pre-Reg r Neurology 16 l [place] 2021-09-05 2021-09-05 Ambulatory nullFlavo MNA [id number] Memoria 14:30:00 14:30:00 Pre-Reg r Neurology 16 l [place] 2021-09-05 2021-09-05 Outpatient MHIE SHYLAIE [id number] Memoria 09:30:00 09:30:00 16 l Yong 2021-09-05 2021-09-05 Outpatient JERSEY JosueSCHER MHMISCHER [id number] 09:30:00 09:30:00 Piotr 16 Samuel 2021-08-14 2021-08-14 Outpatient [facility] [id number] [address] [place] 00:00:00 00:00:00 MOHFELIPA 696 Metho martin 2021-08-11 2021-08-11 Outpatient R [facility] [id number] [facility] 12:00:00 12:00:00 [facility] 2021-07-17 2021-07-17 IHC Follow Nimesh Parra 2.16.840. 2.16.840.1. [id number] Devoted 15:30:00 16:30:00 1.360726. 532101.4.6. 8S7 [place] [address].6.00278 [id number] 2021-06-23 2021-06-23 Outpatient Maggie SWAN [facility] [id number] [facility] 11:30:00 11:30:00 STEPHANIE [facility] 2021-06-07 2021-06-08 Outpatient nullFlavo MNA [id number] Memoria 16:15:00 05:59:59 r Neurology 15 l Jarocho Josephann 2021-06-07 2021-06-08 Outpatient nullFlavo MNA [id number] Memoria 16:15:00 05:59:59 r Neurology 15 l Jarocho Josephann 2021-06-07 2021-06-07 Outpatient JERSEY JosueSCHER MHMISCHER [id number] 10:15:00 23:59:59 Piotr 15 Samuel 2021-06-07 2021-06-07 Outpatient MHIE MHIE [id number] Memoria 10:15:00 10:15:00 15 l Yong 2021-05-05 2021-05-05 IHC Follow Nimesh Parra 2.16.840. 2.16.840.1. [id number] Devoted 15:00:00 15:30:00 Up 1.429384. 502146.4.6. 8J9 [facility] 4.6.90905 [id number] 2021-04-29 2021-04-29 Emergency [facility] [id number] Univers 09:31:00 10:59:00 MADHAVI ithanna of [facility] 2021-04-29 2021-04-29 Emergency [facility] 1.2.840.114 [id number] Univers 09:31:00 10:59:00 Madhavi HASSAN 350.1.13.10 ity of [place] 4.2.7.2.686 [place] [facility] [id number] [facility] [address] [place] 2021-04-29 2021-04-29 Outpatient R ROXANN [facility] [id number] Univers 10:00:00 10:00:00 CHAVO corona o f [facility] 2021-04-29 2021-04-29 Telephone [facility] 1.2.840.114 [id number] Univers 00:00:00 00:00:00 [facility] 350.1.13.10 i ty of [place] 4.2.7.2.686 [place] as ANA LAURA?BLEA [id number] Co dic[address] [facility] 2021-04-29 2021-04-29 Orders Doctor SARA 1.2.840.114 [id number] Univers 00:00:00 00:00:00 Only Unassigned, CALVIN 350.1.13.10 ity of [place] [facility] 4.2.7.2.686 [place] as [id number] [facility] [address]9 [address] 2021-04-20 2021-04-20 Ambulatory nullFlavo MNA [id number] Memoria 19:45:00 19:45:00 Pre-Reg r Neurology 14 l Jar[place]o Josephann 2021-04-20 2021-04-20 Ambulatory nullFlavo MNA [id number] Memoria 19:45:00 19:45:00 Pre-Reg r Neurology 14 l [place] 2021-04-20 2021-04-20 Outpatient IE [facility] [id number] Memoria 13:45:00 13:45:00 14 [place] 2021-04-20 2021-04-20 Outpatient Joselo [facility] [id number] 13:45:00 13:45:00 Piotr 14 Samuel 2021-04-12 2021-04-12 IHC Follow Nimesh Parra 2.16.840. 2.16.840.1. [id number] Devoted 22:00:00 22:30:00 Up 1.454379. 964166.4.6. 7CJ Medical 4.6.43784 [id number] 84436 2021-04-07 2021-04-07 IHC Follow Nimesh Parra 2.16.840. 2.16.840.1. [id number] Devoted 20:30:00 21:15:00 Up 1.800223. 764700.4.6. 6JC Medical 4.6.25919 [id number] 35236 2021-03-08 2021-03-08 IHC Follow Nimesh Parra 2.16.840. 2.16.840.1. [id number] Devoted 14:30:00 15:15:00 Up 1.140653. 872570.4.6. Y74 Medical 4.6.46925 [id number] 2021-02-14 2021-02-14 Orders Doctor SARA 1.2.840.114 [id number] Univers 00:00:00 00:00:00 Only Unassigned, CALVIN 350.1.13.10 ity of [place] [facility] 4.2.7.2.686 [place] as [id number] [facility] corby 009 [address] 2021-02-08 2021-02-09 Outpatient nullFlavo MNA [id number] Memoria 19:30:00 04:59:59 r Neurology 13 l [place] 2021-02-08 2021-02-09 Outpatient nullFlavo MNA [id number] Memoria 19:30:00 04:59:59 r Neurology 13 l [place] 2021-02-08 2021-02-08 Outpatient JERSEY JosueSCHER MHMISCHER [id number] 14:30:00 23:59:59 Piotr 13 Samuel 2021-02-08 2021-02-08 Outpatient MHIE MHIE [id number] Memoria 14:30:00 14:30:00 13 [place] 2021-01-25 2021-01-25 Transition Margarette Mccann 1.2.840.114 [id number] Univers 00:00:00 00:00:00 of Care Rebecachang Gonzalez 350.1.13.10 i ty of [place] 4.2.7.2.686 [facility] [id number] [facility] 403 [address] 2021-01-20 2021-01-24 Emergency Sergey Chapin [facility] 1.2.840. 114 [id number] Univers 16:45:00 13:03:00 Marcial Vaughan 350.1.13.10 ity Tod Singh 4.2.7.2.686 [facility] [id number] [facility] 081 [address] 2021-01-20 2021-01-24 Outpatient X FRANCISCO [facility] [id number] Univers 16:45:00 13:03:00 [facility] 2021-01-18 2021-01-19 Outpatient nullFlavo MNA [id number] Memoria 16:30:00 04:59:59 r Neurology 12 l Jarocho Josephann 2021-01-18 2021-01-19 Outpatient nullFlavo MNA [id number] Memoria 16:30:00 04:59:59 r Neurology 12 l Jarocho Josephann 2021-01-18 2021-01-18 Outpatient [facility]IE [id number] 11:30:00 23:59:59 Piotr 12 Samuel 2021-01-18 2021-01-18 Outpatient MHIE MHIE [id number] Memoria 11:30:00 11:30:00 12 l Yong 2020-12-08 2020-12-09 Outpatient nullFlavo MNA [id number] Memoria 14:30:00 04:59:59 r Neurology 11 l [place] 2020-12-08 2020-12-09 Outpatient nullFlavo MNA [id number] Memoria 14:30:00 04:59:59 r Neurology 11 l [place] 2020-12-08 2020-12-08 Outpatient JERSEY JosueSCHER MISCHER [id number] 09:30:00 23:59:59 Piotr 11 Samuel 2020-12-08 2020-12-08 Outpatient MHIE MHIE [id number] Memoria 09:30:00 09:30:00 11 [place] 2020-12-02 2020-12-05 Outpatient SAVANAH ACOSTA [facility] [id number] [place] 00:00:00 00:00:[address] 2020-12-01 2020-12-03 Outside nullFlavo MNA [id number] Memoria 22:29:17 04:59:59 Medical r Neurology 03 l Records [place] 2020-12-01 2020-12-03 Outside nullFlavo MNA [id number] Memoria 22:29:17 04:59:59 Medical r Neurology 03 l Records [place] 2020-12-01 2020-12-02 Outpatient MHMISCHER MHMISCHER [id number] 17:29:17 23:59:59 03 2020-10-05 2020-10-05 Ambulatory nullFlavo MNA [id number] Memoria 15:15:00 15:15:00 Pre-Reg r Neurology 10 l [place] 2020-10-05 2020-10-05 Ambulatory nullFlavo MNA [id number] Memoria 15:15:00 15:15:00 Pre-Reg r Neurology 10 l Vigolitzy Josephann 2020-10-05 2020-10-05 Outpatient MHIE MHIE [id number] Memoria 10:15:00 10:15:00 10 [place] 2020-10-05 2020-10-05 Outpatient [facility]ERSEY [facility]SCHER [facility] [id number] 10:15:00 10:15:00 Piotr 10 Samuel 2020-09-21 2020-09-21 Outpatient [email or web address] DMG DMG [id number] Devoted 04:19:00 04:19:00 0421 Medica l Group 2020-09-20 2020-09-20 Outpatient [email or web address] KAREN [facility] [id number] Devoted 11:40:00 11:40:00 0420 Medica l Group 2020-09-12 2020-09-12 Outpatient [email or web address] KAREN [facility] [id number] Devoted 12:31:00 12:31:00 0412 Medica l Group 2020-09-08 2020-09-08 Outpatient [facility] [id number] Devoted 09:01:00 09:01:00 0408 Medica l Group 2020-09-08 2020-09-08 Outpatient KAREN Ramirez [facility] [id number] 00:00:00 00:00:00 Maribell [id number] Grupo [id number] 2020-09-08 2020-09-08 Maribell JONES MA - [id number] D evoted 00:00:00 00:00:00 Grupo Ramirez, DIE FINISHER: [facility] [address], [place] [address] , Ph. 2020-09-07 2020-09-07 Outpatient [facility] [id number] Devoted 06:03:00 06:03:00 0407 Medica l Group 2020-08-08 2020-08-08 Patient ANTWON Ríos 1.2.840.114 [id number] Univers 00:00:00 00:00:00 Outreach [facility] 350.1.13.10 i ty of [place].2.[place] [id number] Me dical [address] 2020-08-08 2020-08-08 Patient ANTWON Ríos 1.2.840.114 [id number] 00:00:00 00:00:00 Outreach Prudencio PRIMARY 350.1.13.10 [place] CARE 4.2.7.2.686 PAVILLION [id number] 2020-06-14 2020-06-15 Outpatient nullFlavo MNA [id number] Memoria 19:15:00 05:59:59 r Neurology 09 l [place] 2020-06-14 2020-06-15 Outpatient nullFlavo MNA [id number] Memoria 19:15:00 05:59:59 r Neurology 09 l [place] 2020-06-14 2020-06-14 Outpatient Joselo [facility] [id number] 13:15:00 23:59:59 Piotr Desire Samuel 2020-06-14 2020-06-14 Outpatient MHIE MHIE [id number] Memoria 13:15:00 13:15:00 09 [place] 2020-06-12 2020-06-12 Outpatient Maggie REED [facility] [id number] [facility] 10:40:00 10:40:00 CLIFFORD [facility] 2020-06-08 2020-06-08 Ambulatory nullFlavo MNA [id number] Memoria 15:15:00 15:15:00 Pre-Reg r Neurology 08 l [place] 2020-06-08 2020-06-08 Ambulatory nullFlavo MNA [id number] Memoria 15:15:00 15:15:00 Pre-Reg r Neurology 08 [place] 2020-06-08 2020-06-08 Outpatient MHIE MHIE [id number] Memoria 09:15:00 09:15:00 08 [place] 2020-06-08 2020-06-08 Outpatient [facility]elo [facility] [id number] 09:15:00 09:15:00 Piotr 08 Samuel 2020-02-17 2020-02-17 Patient BarbaraMargarette 1.2.840.114 [id number] Univers 00:00:00 00:00:00 Outreach Kelsey Hayward Gonzalez 350.1.13.10 ity of [place] [id number] [address] 2020-02-17 2020-02-17 Patient Barbara Margarette 1.2.840.114 [id number] 00:00:00 00:00:00 Outreach Kelsey Hayward Gonzalez 350.1.13.10 [place] 4.2.7.2.686 [id number] 403 2020-02-14 2020-02-14 Outpatient R DEREK [facility] [id number] Univers 19:40:00 19:40:00 CLIFFORD ity of [facility] 2020-02-14 2020-02-14 Emergency [facility] 1.2.728.730 [id number] Univers 14:26:00 16:05:00 Jayne Hassan 350.1.13.10 i ty of [place] 4.2.7.2.686 [facility] [place] [id number] [address] 2020-02-14 2020-02-14 Emergency [facility] 1.2.564.774 [id number] 14:26:00 16:05:00 Jayne Hassan 350.1.13.10 [place] 4.2.7.2.686 [place] [id number] [facility] 2020-02-14 2020-02-14 Orders Doctor RUIZ 1.2.840.114 [id number] Univers 00:00:00 00:00:00 Only Unassigned, CALVIN 350.1.13.10 ity of [facility] 4.2.7.2.686 [place] [id number] [address] 2020-02-14 2020-02-14 Orders Doctor SARA [id number] [id number] 00:00:00 00:00:00 Only Unassigned, CAVLIN 350.1.13.10 [facility] 4.2.7.2.686 [id number] 2019-12-10 2019-12-10 Ambulatory nullFlavo MNA [id number] Memoria 20:15:00 20:15:00 Pre-Reg r Neurology 07 l [place] 2019-12-10 2019-12-10 Ambulatory nullFlavo MNA [id number] Memoria 20:15:00 20:15:00 Pre-Reg r Neurology 07 l [place] 2019-12-10 2019-12-10 [id number] 15:15:00 15:15:00 Piotr Baker 2019-12-10 2019-12-10 Ambulatory nullFlavo MNA [id number] Memoria 14:00:00 14:00:00 Pre-Reg r Neurology 06 l [place] 2019-12-10 2019-12-10 Ambulatory nullFlavo MNA [id number] Memoria 14:00:00 14:00:00 Pre-Reg r Neurology 06 l [place] 2019-12-10 2019-12-10 Outpatient MHIE MHIE [id number] Memoria 09:00:00 09:00:00 06 l [place] 2019-12-10 2019-12-10 Outpatient MHIE MHIE [id number] Memoria 09:00:00 09:00:00 07 l [place] 2019-12-10 2019-12-10 Outpatient Joselo[facility] [id number] 09:00:00 09:00:00 Piotr Pino [place] 2019-09-20 2019-09-20 Emergency [facility] [id number] Univers 12:46:41 16:25:00 Jayne Hassan 350.1.13.10 i ty [facility] 4.2.7.2.686 [facility] [id number] [address] 2019-09-20 2019-09-20 Emergency X [facility] ERT [id number] Univers 12:46:41 16:25:00 JAYNE [facility] 2019-09-20 2019-09-20 Emergency [facility] [id number] 12:46:41 16:25:00 Jayne Hassan 350.1.13.10 [place] 4.2.7.2.686 [place] [id number] [facility] 2019-09-20 2019-09-20 Outpatient R MARKELL [facility] [id number] Univers 13:00:00 13:00:00 GABINO [facility] 2019-09-18 2019-09-18 [id number] Univers 19:00:00 19:00:00 ZANDER corona [facility] 2019-08-07 2019-08-07 Outpatient 3 [facility] [place] [facility] JEANINE [id number] 13:10:00 13:10:00 [facility] [place] -[id number] [facility] 2019-04-02 2019-04-03 Outpatient nullFlavo MNA [id number] Memoria 14:30:00 04:59:59 r Neurology 05 [place] 2019-04-02 2019-04-03 Outpatient nullFlavo MNA [id number] Memoria 14:30:00 04:59:59 r Neurology 05 l [place] 2019-04-02 2019-04-02 Out[id number] 09:30:00 23:59:59 Piotr Anthony [place] 2019-04-02 2019-04-02 Outpatient MHIE MHIE [id number] Memoria 09:30:00 09:30:00 05 [place] 2019-03-03 2019-03-03 Outpatient Maggie CODY III, [facility] [id number] Univers 15:40:00 16:31:06 NOE [facility] 2019-03-02 2019-03-02 Outpatient Maggie CODY III, [facility] [id number] Univers 16:00:00 16:00:00 NOE [facility] [place] 2019-02-21 2019-02-21 Outpatient Maggie CARTER, [facility] [id number] Univers 11:50:00 23:59:00 [facility] 2019-02-17 2019-02-17 [facility] Margarette Gomez 1.2.840.114 [id number] [facility] 00:00:00 00:00:00 of Care Ivett Gonzalez 350.1.13.10 it y of [place] 4[place]2.7.2.686 [place] [phone] [address] 2019-02-17 2019-02-17 [facility] Margarette Gomez 1.2.840.114 [id number] 00:00:00 00:00:00 of Care Ivett Gonzalez 350.1.13.10 [place] 4.2.7.2.686 [id number] [facility] 2019-02-14 2019-02-15 [facility] [place] [facility] 1.2.840.1 [id number] Univers 19:37:01 10:35:00 Encounter Tod Singh 350.1.13.10 ity of [place] 4.2.7.2.686 [place] [facility] [id number] [facility] 0[address] [place] 2019-02-14 2019-02-15 Hospital [place] [facility] 1.2.840.1 14 [id number] 19:37:01 10:35:00 Encounter Tod Singh [place] 350.1.13.10 [place] 4.2.7.2.686 [place] [id number] [facility] 2019-02-14 2019-02-14 Nurse Nurse, [facility] 1.2 .840.114 [id number] [facility] 19:13:52 19:30:10 Visit Unknown, [facility] [place] 350.1.13.10 ity of Surgical 4.2.7.2.686 [place] as Specialti [id number] [address] 2019-02-14 2019-02-14 Nurse Nurse, Karel [facility] 1.2.840.114 [id number] 19:13:52 19:30:10 Visit Urgent Care [facility] 350.1.13.10 Surgical 4.2.7.2.686 Specialti [id number] [address] 2019-01-31 2019-01-31 Urgent Sara Irwin [facility] 1.2.840.114 [id number] [facility] 11:25:08 11:40:08 Care Unknown, [facility] [place] 350.1.13.10 ity of Surgical 4.2.7.2.686 [place] as Specialti [id number] [address] 2019-01-31 2019-01-31 Urgent Dc [facility] 1.2.840.114 [id number] 11:25:08 11:40:08 Care [facility] 350.1.13.10 Surgical 4.2.7.2.686 Specialti [phone] [address] 2019-01-31 2019-01-31 Orders Doctor SARA Mejía.2.840.114 [id number] Univers 00:00:00 00:00:00 Only Unassigned, CALVIN 350.1.13.10 ity of [place] [facility] 4.2.7.2.686 [place] as [phone] [facility] [address] [place] 2019-01-31 2019-01-31 Orders Doctor SARA Mejía.2.840.114 [id number] 00:00:00 00:00:00 Only Unassigned, [place] 350.1.13.10 [place] [facility] 4.2.7.[id number] [facility] 2018-07-03 2018-07-04 Outpatient nullFlavo MNA [id number] [place] 14:45:00 05:59:59 r Neurology 04 [place] 2018-07-03 2018-07-04 Outpatient nullFlavo MNA [id number] [place] 14:45:00 05:59:59 r Neurology 04 [place] 2018-07-03 2018-07-03 [id number] 08:45:00 23:59:59 Piotr Sam [place] 2018-07-03 2018-07-03 Ambulatory nullFlavo MNA [id number] Mem[place] 14:45:00 14:45:00 Pre-Reg r Neurology 03 [place] 2018-07-03 2018-07-03 Ambulatory nullFlavo MNA [id number] Memoria 14:45:00 14:45:00 Pre-Reg r Neurology 03 [place] 2018-07-03 2018-07-03 Outpatient MHIE MHIE [id number] [place] 08:45:00 08:45:00 Sam casanova [place] 2018-07-03 2018-07-03 [facility] [id number] 08:45:00 08:45:00 Piotr 03 [place] 2018-05-30 2018-05-30 Ambulatory nullFlavo MNA [id number] Memoria 21:45:00 21:45:00 Pre-Reg r Neurology 02 [place] 2018-05-30 2018-05-30 Ambulatory nullFlavo MNA [id number] Memoria 21:45:00 21:45:00 Pre-Reg r Neurology 02 [place] 2018-05-30 2018-05-30 [facility] 455 [id number] 15:45:00 15:45:00 Piotr 02 [place] 2018-05-22 2018-05-24 Phone nullFlavo MNA [id number] Mem[place] 21:49:00 05:59:59 Message r Neurology 01 [place] 2018-05-22 2018-05-24 Phone nullFlavo MNA [id number] [place] 21:49:00 05:59:59 Message r Neurology 01 [place] 2018-05-22 2018-05-23 [id number] 15:49:00 23:59:59 2018-05-22 2018-05-22 Ambulatory nullFlavo MNA 75575 [id number] Mem[place] 20:45:00 20:45:00 Pre-Reg r Neurology 01 [place] 2018-05-22 2018-05-22 Ambulatory nullFlavo MNA 22425 [id number] Memoria 20:45:00 20:45:00 Pre-Reg r Neurology 01 [place] 2018-05-22 2018-05-22 Outpatient Joselo [facility] [id number] 14:45:00 14:45:00 Piotr Jd [place] 2018-05-13 2018-05-13 Ambulatory nullFlavo MNA [id number] Memoria 21:30:00 21:30:00 Pre-Reg r Neurology 00 [place] 2018-05-13 2018-05-13 Ambulatory nullFlavo MNA [id number] Memoria 21:30:00 21:30:00 Pre-Reg r Neurology 00 [place] 2018-05-13 2018-05-13 [facility] [id number] 15:30:00 15:30:00 Piotr Alvin [place] Results Test Description Test Time Test Comments Results Result Comments Source POCT GLUCOSE (AUTOMATED) 2022-12-03 16:34:03 Test Item Value Reference Range Interpretation Comme nts POCT GLU (test code = 1827078697) 160 mg/dL 70-110 H Lab Interpretation (test code = 54105-1) [facility]normal [facility]2022-12-03 13:49:13 Test Item Value Reference Range Interpretation Comments POCT GLU (test code = 9195057833) 169 mg/dL 70-110 H Lab Interpretation (test code = Abnormal 02918-4) [facility] CenterFERR[facility] [id number] 03:44:45 Test Item Value Reference Range Interpretation Comments FERRITIN (test code = 36.3 ng/mL 11.0-264.0 1371773891) CLARICE (test code = CLARICE) Biotin has been reported to cause a negative bias, interpret results relative to patient's use of biotin. Lab Interpretation (test Normal code = 41547-4) [facility] [id number] 03:16:25 Test Item Value Reference Range Interpretation Comments IRON (test code = 4036588223) 66 ug/dL 50-160 TIBC (test code = 3450480641) 364 ug/dL 250-410 % FE SAT (test code = 9916088067) 18 % 20-50 L Lab Interpretation (test code = Abnormal 51919-3) [facility] CenterTHYROID STIMULATING [id number] 02:24:38 Test Item Value Reference Range Interpretation Comments TSH (test code = 1.79 See_Comment Biotin has been 4688892514) reported to cau se a negative bias, interpret resul ts relative to pat ient's use of biotin. [Automated mess age] The system [employer] generated this result transmitted ref erence range: 0.45 - 4 .70 mIU/L. The refe rence range was not u sed to interpret this result as normal/abnor mal. Lab Interpretation (test Normal code = 39985-0) [facility] ([facility]ATED)2022-12-03 01:21:53 Test Item Value Reference Range Interpretation Comments POCT GLU (test code = 6702752077) 124 mg/dL 70-110 H Lab Interpretation (test code = Abnormal 42817-1) [facility] [id number] 00:20:53 Test Item Value Reference Range Interpretation Comments FREE T3 (test code = 1440387855) 3.78 pg/mL 2.77-5.27 Lab Interpretation (test code = Normal 95261-2) [facility] [id number] 00:20:53 Test Item Value Reference Range Interpretation Comments FREE T4 (test code = 1.03 See_Comment [Autom ated message] 9581258913) The system [employer] generated this result transmitted ref erence range: 0.78 - 2 .20 ng/dL:. The ref erence range was not u sed to interpret this result as normal/abnor mal. Lab Interpretation (test Normal code = 90724-8) [facility] CenterLatxic Acid Whole [id number] 23:27:42 Test Item Value Reference Range Interpretation Comments LACTIC ACID (test code = 1.18 mmol/L 0.50-2.20 2770864054) Lab Interpretation (test code = Normal 05660-5) [facility] CenterTROPONIN [id number] 20:44:44 Test Item Value Reference Range Interpretation Comments TROPONIN I (test code = 0.000 ng/mL <=0.034 9433029526) CLARICE (test code = CLARICE) Reference (Normal) [...] biotin. Lab Interpretation Normal (test code = 59501-5) [facility] CenterN-TERMINAL [id number] 20:41:46 Test Item Value Reference Range Interpretation Comments NT-proBNP (test code = 63 pg/mL <=125 6715882037) CLARICE (test code = CLARICE) Biotin has been reported to cause a negative bias, interpret results relative to patient's use of biotin. Lab Interpretation (test Normal code = 44706-3) [facility] CenterCOMP. METABOLIC PANEL (40862)2022-12-02 20:33:07 Test Item Value Reference Range Interpretation Comments NA (test code = 138 mmol/L 135-145 7492853658) K (test code = 4.4 mmol/L 3.5-5.0 5873099828) CL (test code = 103 mmol/L 98-108 2212637588) CO2 TOTAL (test code = 26 mmol/L 23-31 1206221798) AGAP (test code = 9 2-16 6874538126) BUN (test code = 14 mg/dL 7-23 3331403603) GLUCOSE (test code = 178 mg/dL 70-110 H 1569538685) CREATININE (test code = 0.72 mg/dL 0.50-1.04 6389465039) TOTAL BILI (test code = 0.6 mg/dL 0.1-1.8 1318394993) CALCIUM (test code = 8.9 mg/dL 8.6-10.6 3593191137) T PROTEIN (test code = 5.9 g/dL 6.3-8.2 L 1717941659) ALBUMIN (test code = 3.7 g/dL 3.5-5.0 8489185197) ALK PHOS (test code = 90 U/L 34-122 6088111745) ALTv (test code = 27 U/L 5-35 1742-6) AST(SGOT) (test code = 27 U/L 13-40 7355488717) eGFR (test code = 80.3 mL/min/1.73m2 3626595329) CLARICE (test code = CLARICE) Association of [...] tests). Lab Interpretation Abnormal (test code = 66284-4) [facility] CenterLIPASE2023-07-02 20:32:27 Test Item Value Reference Range Interpretation Comments LIPASE (test code = 8841756028) 309 U/L 0-220 H Lab Interpretation (test code = Abnormal 38460-0) [facility] CenterACTIVATED PARTIAL THRMPLAS [id number] 20:06:22 Test Item Value Reference Range Interpretation Comments APTT Patient (test 26 See_Comment [Automat ed code = 3173-2) message] The system which generated this result transmitted reference range : 23 - 38 Seconds . The reference range was not used to interpr et this result as normal/abnormal . CLARICE (test code = CLARICE) The [facility] patient population mean normal value for aPTT is 30 seconds. Lab Interpretation Normal (test code = 05132-1) [facility] CenterPROTHROMBIN TIME / [id number] 20:03:41 Test Item Value Reference Range Interpretation [...] tions. Lab Interpretation (test Abnormal code = 71971-8) [facility] CenterCBC WITH [id number] 19:53:03 Test Item Value Reference Range Interpretation Comments WBC (test code = 7.08 See_Comment [Automated 6590-2) message] The sy stem which generated this result transmitted reference range : 4.30 - 11.10 10*3/?L. The reference range was not used to interpret this result as normal/abnormal . RBC (test code = 3.85 See_Comment L [Automated 058-8) message] The sy stem which generated this [...] RDW-SD (test code = 41.2 fL 39.0-49.9 33505-6) RDW-CV (test code = 13.2 % 12.0-15.5 788-0) PLT (test code = 182 See_Comment [Automated 777-3) message] The sy stem which generated this result transmitted reference range : 166 - 358 10*3/ ?L. The reference r alexus was not used to interpret this result as normal/abnormal . MPV (test code = 9.7 fL 9.5-12.9 11262-5) NRBC/100 WBC (test 0.0 See_Comment [Automat ed code = 2398757855) message] The system which generated this result transmitted reference range : 0.0 - 10.0 /100 WBCs. The refer ence range was not u sed to interpret th is result as normal/abnormal . NRBC x10^3 (test code See_Comment [Auto mated = 9983922897) message] The s ystem which generated this result transmitted reference range : 10*3/?L. The reference range was not used to interpret this result as normal/abnormal . GRAN MAT (NEUT) % 55.7 % (test code = 770-8) IMM GRAN % (test code 0.40 % = 3465318453) LYMPH % (test code = 31.6 % 736-9) MONO % (test code = 8.9 % 5905-5) EOS % (test code = 2.7 % 713-8) BASO % (test code = 0.7 % 706-2) GRAN MAT x10^3(ANC) 3.94 10*3/uL 1.88-7.09 (test code = 6068437989) IMM GRAN x10^3 (test 0.03 10*3/uL 0.00-0.06 code = 8742438905) LYMPH x10^3 (test code 2.24 10*3/uL 1.32-3.29 = 731-0) MONO x10^3 (test code 0.63 10*3/uL 0.33-0.92 = 742-7) EOS x10^3 (test code = 0.19 10*3/uL 0.03-0.39 711-2) BASO x10^3 (test code 0.05 10*3/uL 0.01-0.07 = 704-7) Lab Interpretation Abnormal (test code = 93326-0) [facility] GLUCOSE (AUTOMATED)2022-12-02 19:00:52 Test Item Value Reference Range Interpretation Comments POCT GLU (test code = 0992104395) 213 mg/dL 70-110 H Lab Interpretation (test code = Abnormal 07976-7) [facility] GLUCOSE (AUTOMATED)2022-11-05 16:11:13 Test Item Value Reference Range Interpretation Comments POCT GLU (test code = 8496980634) 358 mg/dL 70-110 H Lab Interpretation (test code = Abnormal 13436-0) [facility] GLUCOSE (AUTOMATED)2022-11-05 12:44:59 Test Item Value Reference Range Interpretation Comments POCT GLU (test code = 7526937384) 229 mg/dL 70-110 H Lab Interpretation (test code = Abnormal 99902-0) [facility] GLUCOSE (AUTOMATED)2022-11-05 00:55:07 Test Item Value Reference Range Interpretation Comments POCT GLU (test code = 1416099382) 253 mg/dL 70-110 H Lab Interpretation (test code = Abnormal 43114-7) [facility] GLUCOSE (AUTOMATED)2022-11-04 22:38:35 Test Item Value Reference Range Interpretation Comments POCT GLU (test code = 7109877909) 206 mg/dL 70-110 H Lab Interpretation (test code = Abnormal 98227-5) [facility] GLUCOSE (AUTOMATED)2022-11-04 16:57:57 Test Item Value Reference Range Interpretation Comments POCT GLU (test code = 9933063584) 200 mg/dL 70-110 H Lab Interpretation (test code = Abnormal 13692-6) [facility] GLUCOSE (AUTOMATED)2022-11-04 13:13:50 Test Item Value Reference Range Interpretation Comments POCT GLU (test code = 8970526737) 203 mg/dL 70-110 H Lab Interpretation (test code = Abnormal 08669-5) [facility] CenterAMMONIA, [id number] 10:59:51 Test Item Value Reference Range Interpretation Comments AMMONIA (test code = 9195911561) 9-33 L Lab Interpretation (test code = Abnormal 26213-1) [facility] GLUCOSE (AUTOMATED)2022-11-04 01:02:48 Test Item Value Reference Range Interpretation Comments POCT GLU (test code = 7846118634) 288 mg/dL 70-110 H Lab Interpretation (test code = Abnormal 13067-7) [facility] GLUCOSE (AUTOMATED)2022-11-03 22:13:20 Test Item Value Reference Range Interpretation Comments POCT GLU (test code = 5720571137) 184 mg/dL 70-110 H Lab Interpretation (test code = Abnormal 15353-7) [facility] GLUCOSE (AUTOMATED)2022-11-03 17:08:39 Test Item Value Reference Range Interpretation Comments POCT GLU (test code = 5801725650) 180 mg/dL 70-110 H Lab Interpretation (test code = Abnormal 31895-7) [facility] CenterHEPATIC FUNCTION PANEL (49877) (ALB,T.PRO,BILI T,BU/BC,ALT,AST,ALK PHOS)2022-11-03 15:50:38 Test Item Value Reference Range Interpretation Comments TOTAL BILI (test code = 6698586292) 0.3 mg/dL 0.1-1.1 BILI UNCON (test code = 7687852761) 0.1 mg/dL 0.1-1.1 BILI CONJ (test code = 3721923961) 0.0 mg/dL 0.0-0.3 T PROTEIN (test code = 5865139194) 6.2 g/dL 6.3-8.2 L ALBUMIN (test code = 7082657788) 4.0 g/dL 3.5-5.0 ALK PHOS (test code = 2506603904) 139 U/L 34-122 H ALTv (test code = 1742-6) 22 U/L 5-35 AST(SGOT) (test code = 5329799131) 23 U/L 13-40 Lab Interpretation (test code = Abnormal 41825-0) [facility] CenterIRON [id number] 14:38:52 Test Item Value Reference Range Interpretation Comments IRON (test code = 1115597600) 62 ug/dL 50-160 TIBC (test code = 2232289630) 393 ug/dL 250-410 % FE SAT (test code = 2939860264) 16 % 20-50 L Lab Interpretation (test code = Abnormal 67010-8) [facility] GLUCOSE (AUTOMATED)2022-11-03 13:28:51 Test Item Value Reference Range Interpretation Comments POCT GLU (test code = 6005498196) 142 mg/dL 70-110 H Lab Interpretation (test code = Abnormal 93305-2) [facility] GLUCOSE (AUTOMATED)2022-11-03 02:34:58 Test Item Value Reference Range Interpretation Comments POCT GLU (test code = 2728747848) 198 mg/dL 70-110 H Lab Interpretation (test code = Abnormal 49432-7) [facility] GLUCOSE (AUTOMATED)2022-11-02 23:08:06 Test Item Value Reference Range Interpretation Comments POCT GLU (test code = 0145943407) 160 mg/dL 70-110 H Lab Interpretation (test code = Abnormal 20176-4) [facility] GLUCOSE (AUTOMATED)2022-11-02 17:29:22 Test Item Value Reference Range Interpretation Comments POCT GLU (test code = 0002197525) 103 mg/dL 70-110 Lab Interpretation (test code = Normal 51297-2) [facility] GLUCOSE (AUTOMATED)2022-11-02 15:12:05 Test Item Value Reference Range Interpretation Comments POCT GLU (test code = 6884133143) 122 mg/dL 70-110 H Lab Interpretation (test code = Abnormal 18901-6) [facility] CenterGLYCOSYLATED HEMOGLOBIN (A1C)2022-11-02 03:31:19 Test Item Value Reference Range Interpretation Comments HGB A1C (test code = 8.4 % 4.0-5.7 H 4548-4) CLARICE (test code = CLARICE) Reference RangesNormal: <5.7%Prediabetes: 5.7 - 6.4%Diabetes: > 6.5% Lab Interpretation (test Abnormal code = 06490-7) [facility] CenterTROPONIN [id number] 20:01:06 Test Item Value Reference Range Interpretation Comments TROPONIN I (test code = 0.006 ng/mL <=0.034 7793124713) CLARICE (test code = CLARICE) Reference (Normal) [...] biotin. Lab Interpretation Normal (test code = 11603-7) [facility] CenterETHANOL2023-06-01 19:43:35 ALCOHOL<10mg/dL11/01/2022 2:43 PM [facility]<10 Txtfskyw71-079 Toxic>100 Depression of [employer]SEM[employer]>400 Fatalities [facility]UnDoctors [facility] LaredoCOM. METABOLIC PANEL (43894) 2022-11-01 19:42:24 Test Item Value Reference Range Interpretation Comments NA (test code = 140 mmol/L 135-145 6406237320) K (test code = 4.1 mmol/L 3.5-5.0 5911675628) CL (test code = 104 mmol/L 98-108 1753609611) CO2 TOTAL (test code = 27 mmol/L 23-31 3746943038) AGAP (test code = 9 2-16 9688694864) BUN (test code = 15 mg/dL 7-23 9978569415) GLUCOSE (test code = 126 mg/dL 70-110 H 5267188717) CREATININE (test code = 0.69 mg/dL 0.50-1.04 8362105564) TOTAL BILI (test code = 0.3 mg/dL 0.1-1.3 7039505102) CALCIUM (test code = 8.8 mg/dL 8.6-10.6 5282905150) T PROTEIN (test code = 6.3 g/dL 6.3-8.2 8026466676) ALBUMIN (test code = 3.9 g/dL 3.5-5.0 8568091834) ALK PHOS (test code = 136 U/L 34-122 H 6023699445) ALTv (test code = 22 U/L 5-35 1742-6) AST(SGOT) (test code = 22 U/L 13-40 2194236232) eGFR (test code = 84.4 mL/min/1.73m2 2590219586) CLARICE (test code = CLARICE) Association of [...] tests). Lab Interpretation Abnormal (test code = 17123-9) [facility] CenterCREATINE [id number] 19:42:24 Test Item Value Reference Range Interpretation Comments CK (test code = 1526172521) 103 U/L 33-194 Lab Interpretation (test code = Normal 15782-8) [facility] WITH [id number] 19:29:23 Test Item Value Reference Range Interpretation [...] RDW-SD (test code = 41.8 fL 39.0-49.9 76997-9) RDW-CV (test code = 13.3 % 12.0-15.5 788-0) PLT (test code = 194 See_Comment [Automated 777-3) message] The sy stem which generated this result transmitted reference range : 166 - 358 10*3/ ?L. The reference r alexus was not used to interpret this result as normal/abnormal . MPV (test code = 10.0 fL 9.5-12.9 52040-5) NRBC/100 WBC (test 0.0 See_Comment [Automat ed code = 2002113141) message] The system which generated this result transmitted reference range : 0.0 - 10.0 /100 WBCs. The refer ence range was not u sed to interpret th is result as normal/abnormal . NRBC x10^3 (test code See_Comment [Auto mated = 5320136961) message] The s ystem which generated this result transmitted reference range : 10*3/?L. The reference range was not used to interpret this result as normal/abnormal . GRAN MAT (NEUT) % 55.0 % (test code = 770-8) IMM GRAN % (test code 0.70 % = 4886046218) LYMPH % (test code = 28.6 % 736-9) MONO % (test code = 10.9 % 5905-5) EOS % (test code = 3.9 % 713-8) BASO % (test code = 0.9 % 706-2) GRAN MAT x10^3(ANC) 3.76 10*3/uL 1.88-7.09 (test code = 2302364459) IMM GRAN x10^3 (test 0.05 10*3/uL 0.00-0.06 code = 7581284076) LYMPH x10^3 (test code 1.96 10*3/uL 1.32-3.29 = 731-0) MONO x10^3 (test code 0.75 10*3/uL 0.33-0.92 = 742-7) EOS x10^3 (test code = 0.27 10*3/uL 0.03-0.39 711-2) BASO x10^3 (test code 0.06 10*3/uL 0.01-0.07 = 704-7) Lab Interpretation Abnormal (test code = 56894-0) [facility]2022-11-01 19:25:25 Test Item Value Reference Range Interpretation Comments POCT GLU (test code = 7492163577) 146 mg/dL 70-110 H Lab Interpretation (test code = Abnormal 25523-8) [facility] CenterTroponin I - Code Ipffet1454-07-02 06:14:08 Test Item Value Reference Range Interpretation Comments TROPONIN I (test code = 0.002 ng/mL <=0.034 1938011904) CLARICE (test code = CLARICE) Reference (Normal) [...] biotin. Lab Interpretation Normal (test code = 48898-5) [facility] Metabolic Panel (NA, K, CL, CO2, Glucose, BUN, Creatinine, CA) - Code [id number] 06:02:29 Test Item Value Reference Range Interpretation Comments NA (test code = 136 mmol/L 135-145 3234078346) K (test code = 4.2 mmol/L 3.5-5.0 6843738664) CL (test code = 99 mmol/L 98-108 1778334319) CO2 TOTAL (test code = 26 mmol/L 23-31 0813451437) AGAP (test code = 11 2-16 7309115169) BUN (test code = 19 mg/dL 7-23 7426219289) GLUCOSE (test code = 203 mg/dL 70-110 H 1844411199) CREATININE (test code = 0.69 mg/dL 0.50-1.04 4205426737) CALCIUM (test code = 9.2 mg/dL 8.6-10.6 9844591484) eGFR (test code = 84.4 mL/min/1.73m2 5842044655) CLARICE (test code = CLARICE) Association of [...] tests). Lab Interpretation Abnormal (test code = 94965-4) [facility] CenteraPTT - Code Tbiarf1510-55-20 05:59:27 Test Item Value Reference Range Interpretation Comments APTT Patient (test 26 See_Comment [Automat ed code = 3173-2) message] The system which generated this result transmitted reference range : 23 - 38 Seconds . The reference range was not used to interpr et this result as normal/abnormal . CLARICE (test code = CLARICE) The [facility] patient population mean normal value for aPTT is 30 seconds. Lab Interpretation Normal (test code = 99685-7) [facility] CenterProthrombin Time / INR - Code Aufmip1601-39-04 05:57:24 Test Item Value Reference Range Interpretation [...] tions. Lab Interpretation (test Normal code = 29015-6) [facility])2022-09-08 05:53:10 Test Item Value Reference Range Interpretation Comments POCT GLU (test code = 2008015874) 210 mg/dL 70-110 H Lab Interpretation (test code = Abnormal 47718-5) [facility] without Diff - Code Kcknoq1926-28-02 05:49:48 Test Item Value Reference Range Interpretation Comments WBC (test code = 7.66 See_Comment [Automated message] The 6690-2) system which ge nerated this result tra nsmitted reference range : 4.30 - 11.10 10*3/?L. The reference range was not used to interpr et this result as normal/abnormal . RBC (test code = 4.63 See_Comment [Automated message] The 789-8) system which ge nerated this result tra [...] See_Comment [Automated message] The 777-3) system which ge nerated this result tra nsmitted reference range : 166 - 358 10*3/?L. Th e reference range was not used to interpr et this result as normal/abnormal . MPV (test code = 9.9 fL 9.5-12.9 95391-0) RDW-CV (test code = 13.5 % 12.0-15.5 788-0) RDW-SD (test code = 41.8 fL 39.0-49.9 58362-2) NRBC x10^3 (test See_Comment [Automated message] The code = 1573816403) system [facility] generated this result tra nsmitted reference range : 10*3/?L. The reference r alexus was not used to int erpret this result as normal/abnormal . NRBC/100 WBC (test 0.0 See_Comment [Automat ed message] The code = 6014503797) system [facility] generated this result tra nsmitted reference range : 0.0 - 10.0 /100 WBCs. The reference range was not used to interpr et this result as normal/abnormal . IPF % (test code = 3265135871) [facility] GLUCOSE (AUTOMATED)2022-01-16 17:47:00 Test Item Value Reference Range Interpretation Comments POCT GLU (test code = 0075687681) 258 mg/dL 70-110 H Lab Interpretation (test code = Abnormal 29113-4) [facility] GLUCOSE (AUTOMATED)2022-01-16 13:54:45 Test Item Value Reference Range Interpretation Comments POCT GLU (test code = 7956845234) 171 mg/dL 70-110 H Lab Interpretation (test code = Abnormal 54075-6) [facility] GLUCOSE (AUTOMATED)2022-01-16 01:32:03 Test Item Value Reference Range Interpretation Comments POCT GLU (test code = 9285753515) 232 mg/dL 70-110 H Lab Interpretation (test code = Abnormal 37060-1) [facility] GLUCOSE (AUTOMATED)2022-01-15 16:47:52 Test Item Value Reference Range Interpretation Comments POCT GLU (test code = 6839668676) 263 mg/dL 70-110 H Lab Interpretation (test code = Abnormal 85711-4) [facility] 18:23:20 Test Item Value Reference Range Interpretation Comments LVOT stroke volume (test 74.90 cm3 code = 3323371655) EF(Teich) (test code = 61.80 % 3162620647) LVIDD (test code = 4.90 cm 2587952236) LVIDS (test code = 3.30 cm 1618183146) IVS (test code = 1.01 cm 7913002533) LVPWD (test code = 1.02 cm 6673434651) LVOT diameter (test code 1.91 cm = 0273955316) FS (test code = 33 % 8051019186) MV Peak E Vamsi (test code 94.6 cm/s = 1695986275) MV Peak A Vamsi (test code 147.7 cm/s = 2907342155) E/A ratio (test code = ratio 6234152558) E wave decelartion time 0.34 s (test code = 9731798781) LA Volume Index (BP) 28.4 mL/m2 (test code = 5362802831) LA volume (BP) (test code 51.8 mL = 2270764530) LVOT peak vamsi (test code 123.1 cm/s = 8298875614) LVOT mn grad (test code = mmHg 5058408572) Left Ventricular Cardiac 4.8 L/min Output (test code = 3648433) LA size (test code = 2.30 cm 8207123221) LAV(MOD-sp2) (test code = 46.40 mL 6729455573) LAV(MOD-sp4) (test code = 57.10 mL 8634288996) Tapse (test code = 2.6 cm 9442425002) Ao peak vamsi (test code = 127.6 cm/s 0184461179) AV LVOT peak gradient mmHg (test code = 2977956234) LVOT peak VTI (test code 26.2 cm = 6738403298) AV area peak vamsi (test 2.8 cm2 code = 6470864832) Aortic HR (test code = BPM 3938980504) LV V1 mean (test code = 80.10 cm/s 3289843212) Ao max PG (test code = 6.50 mm[Hg] 7848585097) MV Prop V (test code = 62.10 cm/s 2492111359) TR Peak Vamsi (test code = 238.9 cm/s 8572155206) Triscuspid Valve mmHg Regurgitation Peak Gradient (test code = 4057523760) Ao root annulus (test 3.4 cm code = 7479455301) Ao root diam (test code = 3.40 cm 2214375325) IVC Diam Exp(MM) (test 1.68 cm code = 2628635924) IVC Diam Ins(MM) (test 1.02 cm code = 5277353902) AV peak gradient (test mmHg code = 6859611013) Aortic root (test code = 3.4 cm 7654550754) PW (test code = 1.02 cm 0.6-1.6 7857011964) EF - 2D (test code = 61.80 % 41918725) Interventricular Septum 1.01 cm Diastolic Thickness by 2D (test code = 4114146) Radiology Study observation (narrative) (test code = 53925-6) CLARICE (test code = CLARICE) ?Left?Ventricle: Left [...] (75.3 kg) 1.86 sq meters 132/[address] [facility] GLUCOSE (AUTOMATED)2021-09-23 16:38:56 Test Item Value Reference Range Interpretation Comments POCT GLU (test code = 9119301086) 146 mg/dL 70-110 H Lab Interpretation (test code = Abnormal 26737-3) [facility] GLUCOSE (AUTOMATED)2021-09-23 13:26:11 Test Item Value Reference Range Interpretation Comments POCT GLU (test code = 5672713655) 158 mg/dL 70-110 H Lab Interpretation (test code = Abnormal 24920-9) [facility] GLUCOSE (AUTOMATED)2021-09-23 01:44:45 Test Item Value Reference Range Interpretation Comments POCT GLU (test code = 7737238336) 129 mg/dL 70-110 H Lab Interpretation (test code = Abnormal 98061-5) [facility] GLUCOSE (AUTOMATED)2021-09-22 21:12:38 Test Item Value Reference Range Interpretation Comments POCT GLU (test code = 7420374597) 146 mg/dL 70-110 H Lab Interpretation (test code = Abnormal 21629-8) [facility] GLUCOSE (AUTOMATED)2021-09-22 16:40:51 Test Item Value Reference Range Interpretation Comments POCT GLU (test code = 6570118108) 197 mg/dL 70-110 H Lab Interpretation (test code = Abnormal 87078-2) [facility] [id number] 10:44:58 Test Item Value Reference Interpretation Comments Range TROPONIN I (test 0.018 ng/mL See_Comment [Automated code = 2384902635) message] The system which generated this result [...] biotin. Lab Interpretation Normal (test code = 31461-8) [facility] [id number] 10:41:16 Test Item Value Reference Range Interpretation Comments NT-proBNP (test code 94 pg/mL See_Comment [Autom ated = 4490339517) message] The system which generated this result transmitted reference range : <=125. The reference range was not used to interpret this result as normal/abnormal . CLARICE (test code = CLARICE) Biotin has been reported to cause a negative bias, interpret results relative to patient's use of biotin. Lab Interpretation Normal (test code = 74483-3) [facility] (64621)2021-09-22 10:31:56 Test Item Value Reference Range Interpretation Comments NA (test code = 136 mmol/L 135-145 5245086150) K (test code = 4.0 mmol/L 3.5-5.0 5564009622) CL (test code = 102 mmol/L 98-108 5226449522) CO2 TOTAL (test code = 23 mmol/L 23-31 9827536720) AGAP (test code = 2-16 6135693055) BUN (test code = 17 mg/dL 7-23 4653302569) GLUCOSE (test code = 179 mg/dL 70-110 H 9271356051) CREATININE (test code = 0.58 mg/dL 0.50-1.04 2089042605) TOTAL BILI (test code = 0.5 mg/dL 0.1-1.6 4800725877) CALCIUM (test code = 8.4 mg/dL 8.6-10.6 L 1949405483) T PROTEIN (test code = 6.7 g/dL 6.3-8.2 6883440581) ALBUMIN (test code = 4.3 g/dL 3.5-5.0 4615631722) ALK PHOS (test code = 185 U/L 34-122 H 3261515785) ALTv (test code = 18 U/L 5-35 1742-6) AST(SGOT) (test code = 20 U/L 13-40 9515669715) eGFR (test code = mL/min/1.73m2 5536315489) CLARICE (test code = CLARICE) Association of [...] tests). Lab Interpretation Abnormal (test code = 93998-5) [facility] [id number] 10:15:14 Test Item Value Reference Range Interpretation Comments APTT Patient (test See_Comment [Automat ed code = 3173-2) message] The system which generated this result transmitted reference range : 23 - 38 Seconds . The reference range was not used to interpr et this result as normal/abnormal . CLARICE (test code = CLARICE) The [facility] patient population mean normal value for aPTT is 30 seconds. Lab Interpretation Normal (test code = 12775-9) [facility] CenterPROTHR[facility] / [id number] 10:13:13 Test Item Value Reference Range Interpretation [...] tions. Lab Interpretation (test Normal code = 17674-9) [facility] WITH [id number] 09:53:12 Test Item Value Reference Range Interpretation Comments WBC (test code = See_Comment [Automated 6290-2) message] The sy stem which generated this result transmitted reference range : 4.30 - 11.10 10*3/?L. The reference range was not used to interpret this result as normal/abnormal . RBC (test code = See_Comment [Automated 999-8) message] The sy stem which generated this [...] RDW-SD (test code = 41.1 fL 39.0-49.9 57442-2) RDW-CV (test code = 13.2 % 12.0-15.5 788-0) PLT (test code = See_Comment [Automated 777-3) message] The sy stem which generated this result transmitted reference range : 166 - 358 10*3/ ?L. The reference r alexus was not used to interpret this result as normal/abnormal . MPV (test code = 9.7 fL 9.5-12.9 63441-2) NRBC/100 WBC (test See_Comment [Automat ed code = 2500335780) message] The system which generated this result transmitted reference range : 0.0 - 10.0 /100 WBCs. The refer ence range was not u sed to interpret th is result as normal/abnormal . NRBC x10^3 (test code <0.01 See_Comment [Auto mated = 4778435145) message] The s ystem which generated this result transmitted reference range : 10*3/?L. The reference range was not used to interpret this result as normal/abnormal . GRAN MAT (NEUT) % 62.5 % (test code = 770-8) IMM GRAN % (test code 0.60 % = 7785982726) LYMPH % (test code = 23.9 % 736-9) MONO % (test code = 10.6 % 5905-5) EOS % (test code = 1.7 % 713-8) BASO % (test code = 0.7 % 706-2) GRAN MAT x10^3(ANC) 6.52 10*3/uL 1.88-7.09 (test code = 7889524204) IMM GRAN x10^3 (test 0.06 10*3/uL 0.00-0.06 code = 8168616425) LYMPH x10^3 (test code 2.49 10*3/uL 1.32-3.29 = 731-0) MONO x10^3 (test code 1.11 10*3/uL 0.33-0.92 H = 742-7) EOS x10^3 (test code = 0.18 10*3/uL 0.03-0.39 711-2) BASO x10^3 (test code 0.07 10*3/uL 0.01-0.07 = 704-7) Lab Interpretation Abnormal (test code = 67530-2) [facility] GLUCOSE (AUTOMATED)2021-01-24 16:46:38 Test Item Value Reference Range Interpretation Comments POCT GLU (test code = 7157214589) 224 mg/dL 70-110 H Lab Interpretation (test code = Abnormal 79293-7) [facility] 16:46:38 Test Item Value Reference Range Interpretation Comments POCT GLU (test code = 1124755783) 224 mg/dL 70-110 H Lab Interpretation (test code = Abnormal 32605-0) [facility] WITH [id number] 15:36:26 Test Item Value Reference Range Interpretation Comments WBC (test code = See_Comment [Automated message] 4090-2) The system [employer] generated this result transmitted ref erence range: 4.30 - 1 1.10 10*3/?L. The re ference range was not u sed to interpret this result as normal/abnor mal. RBC (test code = See_Comment [Automated message] 909-8) The system [employer] generated this result transmitted ref erence range: [...] RDW-SD (test code 42.4 fL 39.0-49.9 = 99148-2) RDW-CV (test code 13.2 % 12.0-15.5 = 788-0) PLT (test code = See_Comment [Automated message] 037-3) The system [employer] generated this result transmitted ref erence range: 166 - 35 8 10*3/?L. The re ference range was not u sed to interpret this result as normal/abnor mal. MPV (test code = 10.0 fL 9.5-12.9 96564-5) NRBC/100 WBC (test See_Comment [Automat ed message] code = 5114598972) The syste m which generated this result transmitted ref erence range: 0.0 - 10 .0 /100 WBCs. The refer ence range was not u sed to interpret this result as normal/abnor mal. NRBC x10^3 (test <0.01 See_Comment [Automated message] code = 8059825024) The syste m which generated this result transmitted ref erence range: 10*3/?L. The reference range was not used to interpr et this result as normal/abnormal . GRAN MAT (NEUT) % 55.6 % (test code = 770-8) IMM GRAN % (test 0.60 % code = 9520621359) LYMPH % (test code 30.0 % = 736-9) MONO % (test code 10.3 % = 5905-5) EOS % (test code = 2.8 % 713-8) BASO % (test code 0.7 % = 706-2) GRAN MAT 3.70 10*3/uL 1.88-7.09 x10^3(ANC) (test code = 0087424700) IMM GRAN x10^3 0.04 10*3/uL 0.00-0.06 (test code = 2458217443) LYMPH x10^3 (test 2.00 10*3/uL 1.32-3.29 code = 731-0) MONO x10^3 (test 0.69 10*3/uL 0.33-0.92 code = 742-7) EOS x10^3 (test 0.19 10*3/uL 0.03-0.39 code = 711-2) BASO x10^3 (test 0.05 10*3/uL 0.01-0.07 code = 704-7) [facility] WITH [id number] 15:36:26 Test Item Value Reference Range Interpretation Comments WBC (test code = See_Comment [Automated message] 6690-2) The system whic h generated this result transmitted ref erence range: 4.30 - 1 1.10 10*3/?L. The re ference range was not u sed to interpret this result as normal/abnor mal. RBC (test code = See_Comment [Automated message] 789-8) The system [employer] generated this result transmitted ref erence range: [...] RDW-SD (test code 42.4 fL 39.0-49.9 = 05324-4) RDW-CV (test code 13.2 % 12.0-15.5 = 788-0) PLT (test code = See_Comment [Automated message] 777-3) The system [employer] generated this result transmitted ref erence range: 166 - 35 8 10*3/?L. The re ference range was not u sed to interpret this result as normal/abnor mal. MPV (test code = 10.0 fL 9.5-12.9 80044-8) NRBC/100 WBC (test See_Comment [Automat ed message] code = 1729353492) The syste [employer] which generated this result transmitted ref erence range: 0.0 - 10 .0 /100 WBCs. The refer ence range was not u sed to interpret this result as normal/abnor mal. NRBC x10^3 (test <0.01 See_Comment [Automated message] code = 1445787864) The syste m which generated this result transmitted ref erence range: 10*3/?L. The reference range was not used to interpr et this result as normal/abnormal . GRAN MAT (NEUT) % 55.6 % (test code = 770-8) IMM GRAN % (test 0.60 % code = 7986510866) LYMPH % (test code 30.0 % = 736-9) MONO % (test code 10.3 % = 5905-5) EOS % (test code = 2.8 % 713-8) BASO % (test code 0.7 % = 706-2) GRAN MAT 3.70 10*3/uL 1.88-7.09 x10^3(ANC) (test code = 0711848603) IMM GRAN x10^3 0.04 10*3/uL 0.00-0.06 (test code = 7468542564) LYMPH x10^3 (test 2.00 10*3/uL 1.32-3.29 code = 731-0) MONO x10^3 (test 0.69 10*3/uL 0.33-0.92 code = 742-7) EOS x10^3 (test 0.19 10*3/uL 0.03-0.39 code = 711-2) BASO x10^3 (test 0.05 10*3/uL 0.01-0.07 code = 704-7) [facility] GLUCOSE (AUTOMATED)2021-01-24 14:34:03 Test Item Value Reference Range Interpretation Comments POCT GLU (test code = 2809120154) 174 mg/dL 70-110 H Lab Interpretation (test code = Abnormal 37030-9) [facility] GLUCOSE (AUTOMATED)2021-01-24 14:34:03 Test Item Value Reference Range Interpretation Comments POCT GLU (test code = 5181337957) 174 mg/dL 70-110 H Lab Interpretation (test code = Abnormal 04378-1) [facility] 13:30:31 Test Item Value Reference Range Interpretation Comments APPEARANCE (test code Clear Clear = 4684484802) COLOR (test code = Yellow Yellow 7097097099) PH (test code = 4.8-8.0 7440381710) SP GRAVITY (test code 1.003-1.030 = 1154486724) GLU U QUAL (test code Normal Normal = 4757530962) BLOOD (test code = Negative Negative 8731889736) KETONES (test code = Negative Negative 1429632976) PROTEIN (test code = Negative Negative 2887-8) UROBILIN (test code = Normal Normal 6990241364) BILIRUBIN (test code = Negative Negative 8389901841) NITRITE (test code = Negative Negative 1325513193) LEUK JONAS (test code Negative Negative = 8306957742) RBC/HPF (test code = See_Comment [Autom ated message] 4951585859) The system [employer] generated this result transmitted ref erence range: 0 - 3 HP F. The reference range was not used to interpr et this result as normal/abnormal . WBC/HPF (test code = <1 See_Comment [Autom ated message] 6592945092) The system [employer] generated this result transmitted ref erence range: 0 - 5 HP F. The reference range was not used to interpr et this result as normal/abnormal . BACTERIA (test code = Negative Negative 7287905752) SQ EPITH (test code = <1 HPF 2131081359) [facility] 13:30:31 Test Item Value Reference Range Interpretation Comments APPEARANCE (test code Clear Clear = 2392415232) COLOR (test code = Yellow Yellow 2244266250) PH (test code = 4.8-8.0 0410484338) SP GRAVITY (test code 1.003-1.030 = 9882616084) GLU U QUAL (test code Normal Normal = 9353449650) BLOOD (test code = Negative Negative 7640774062) KETONES (test code = Negative Negative 0081830405) PROTEIN (test code = Negative Negative 2887-8) UROBILIN (test code = Normal Normal 5635109156) BILIRUBIN (test code = Negative Negative 0022550536) NITRITE (test code = Negative Negative 7370794464) LEUK JONAS (test code Negative Negative = 2491232660) RBC/HPF (test code = See_Comment [Autom ated message] 4347298471) The system [employer] generated this result transmitted ref erence range: 0 - 3 HP F. The reference range was not used to interpr et this result as normal/abnormal . WBC/HPF (test code = <1 See_Comment [Autom ated message] 8879352275) The system [employer] generated this result transmitted ref erence range: 0 - 5 HP F. The reference range was not used to interpr et this result as normal/abnormal . BACTERIA (test code = Negative Negative 3407854005) SQ EPITH (test code = <1 HPF 5658447597) [facility] GLUCOSE (AUTOMATED)2021-01-24 13:14:11 Test Item Value Reference Range Interpretation Comments POCT GLU (test code = 7251220231) 184 mg/dL 70-110 H Lab Interpretation (test code = Abnormal 73441-9) [facility] GLUCOSE (AUTOMATED)2021-01-24 13:14:11 Test Item Value Reference Range Interpretation Comments POCT GLU (test code = 8995107338) 184 mg/dL 70-110 H Lab Interpretation (test code = Abnormal 20343-4) [facility] (A1C)2021-01-24 12:17:17 Test Item Value Reference Range Interpretation Comments HGB A1C (test code = 8.9 % 4.0-5.7 H 4548-4) CLARICE (test code = CLARICE) Reference RangesNormal: <5.7%Prediabetes: 5.7 - 6.4%Diabetes: > 6.5% Lab Interpretation (test Abnormal code = 47939-2) [facility]A1C)2021-01-24 12:17:17 Test Item Value Reference Range Interpretation Comments HGB A1C (test code = 4548-4) 8.9 % 4.0-5.7 H CLARICE (test code = CLARICE) Lab Interpretation (test code = Abnormal 03406-3) [facility] (NA, K, CL, CO2, GLUCOSE, BUN, CREATININE, CA)2021-01-24 11:52:07 Test Item Value Reference Range Interpretation Comments NA (test code = 139 mmol/L 135-145 9404278377) K (test code = 4.0 mmol/L 3.5-5.0 1861514740) CL (test code = 103 mmol/L 98-108 2423203949) CO2 TOTAL (test code = 25 mmol/L 23-31 9099323172) AGAP (test code = 2-16 8611568998) BUN (test code = 14 mg/dL 7-23 1797493507) GLUCOSE (test code = 151 mg/dL 70-110 H 2820308645) CREATININE (test code = 0.70 mg/dL 0.50-1.04 0233192242) CALCIUM (test code = 9.7 mg/dL 8.6-10.6 1538523168) eGFR (test code = mL/min/1.73m2 1906919029) CLARICE (test code = CLARICE) Association of [...] tests). Lab Interpretation Abnormal (test code = 97268-1) [facility] (NA, K, CL, CO2, GLUCOSE, BUN, CREATININE, CA)2021-01-24 11:52:07 Test Item Value Reference Range Interpretation Comments NA (test code = 1818211421) 139 mmol/L 135-145 K (test code = 5695915291) 4.0 mmol/L 3.5-5.0 CL (test code = 8132084978) 103 mmol/L 98-108 CO2 TOTAL (test code = 4946700288) 25 mmol/L 23-31 AGAP (test code = 3691028317) 2-16 BUN (test code = 2408708902) 14 mg/dL 7-23 GLUCOSE (test code = 0190543650) 151 mg/dL 70-110 H CREATININE (test code = 0.70 mg/dL 0.50-1.04 1788381613) CALCIUM (test code = 5983949560) 9.7 mg/dL 8.6-10.6 eGFR (test code = 2884837215) mL/min/1.73m2 CLARICE (test code = CLARICE) Lab Interpretation (test code = Abnormal 73956-1) [facility] GLUCOSE (AUTOMATED)2021-01-23 21:32:29 Test Item Value Reference Range Interpretation Comments POCT GLU (test code = 5089811185) 111 mg/dL 70-110 H Lab Interpretation (test code = Abnormal 12358-5) [facility] GLUCOSE (AUTOMATED)2021-01-23 21:32:29 Test Item Value Reference Range Interpretation Comments POCT GLU (test code = 9671004522) 111 mg/dL 70-110 H Lab Interpretation (test code = Abnormal 65557-3) [facility] GLUCOSE (AUTOMATED)2021-01-23 16:53:41 Test Item Value Reference Range Interpretation Comments POCT GLU (test code = 6882979980) 190 mg/dL 70-110 H Lab Interpretation (test code = Abnormal 76374-8) [facility] GLUCOSE (AUTOMATED)2021-01-23 16:53:41 Test Item Value Reference Range Interpretation Comments POCT GLU (test code = 8048907909) 190 mg/dL 70-110 H Lab Interpretation (test code = Abnormal 10274-4) [facility] BRAIN WO [id number] 15:20:18 No acute intracranial abnormality. Preliminary Report Dictated by Resident: Haroldo Fowler, Laurent Alex MD., have reviewed this study and agree [...] reviewed this study and agree with theabove report.[facility] BRAIN WO [id number] 15:20:18 No acute intracranial abnormality. Preliminary Report [...] reviewed this study and agree with theabove report.[facility] GLUCOSE (AUTOMATED)2021-01-23 13:03:33 Test Item Value Reference Range Interpretation Comments POCT GLU (test code = 1925296212) 177 mg/dL 70-110 H Lab Interpretation (test code = Abnormal 83782-7) [facility] GLUCOSE (AUTOMATED)2021-01-23 13:03:33 Test Item Value Reference Range Interpretation Comments POCT GLU (test code = 0505227237) 177 mg/dL 70-110 H Lab Interpretation (test code = Abnormal 96475-6) [facility] WITH [id number] 10:24:38 Test Item Value Reference Range Interpretation Comments WBC (test code = See_Comment [Automated 1390-2) message] The sy stem which generated this [...] RDW-SD (test code = 41.6 fL 39.0-49.9 11546-2) RDW-CV (test code = 13.3 % 12.0-15.5 788-0) PLT (test code = See_Comment L [Automated 777-3) message] The sy stem which generated this result transmitted reference range : 166 - 358 10*3/ ?L. The reference r alexus was not used to interpret this result as normal/abnormal . MPV (test code = 10.2 fL 9.5-12.9 66036-0) IPF % (test code = 2.7 % 1.3-7.7 Platelet count 1510751503) measured by fluorescence method. NRBC/100 WBC (test See_Comment [Automat ed code = 4493779851) message] The system which generated this result transmitted reference range : 0.0 - 10.0 /100 WBCs. The refer ence range was not u sed to interpret th is result as normal/abnormal . NRBC x10^3 (test code <0.01 See_Comment [Auto mated = 3329491255) message] The s ystem which generated this result transmitted reference range : 10*3/?L. The reference range was not used to interpret this result as normal/abnormal . GRAN MAT (NEUT) % 59.5 % (test code = 770-8) IMM GRAN % (test code 0.60 % = 5628819638) LYMPH % (test code = 27.3 % 736-9) MONO % (test code = 8.8 % 5905-5) EOS % (test code = 3.0 % 713-8) BASO % (test code = 0.8 % 706-2) GRAN MAT x10^3(ANC) 3.70 10*3/uL 1.88-7.09 (test code = 0803975261) IMM GRAN x10^3 (test 0.04 10*3/uL 0.00-0.06 code = 4026141546) LYMPH x10^3 (test code 1.70 10*3/uL 1.32-3.29 = 731-0) MONO x10^3 (test code 0.55 10*3/uL 0.33-0.92 = 742-7) EOS x10^3 (test code = 0.19 10*3/uL 0.03-0.39 711-2) BASO x10^3 (test code 0.05 10*3/uL 0.01-0.07 = 704-7) Lab Interpretation Abnormal (test code = 80860-3) [facility] WITH [id number] 10:24:38 Test Item Value Reference Range Interpretation Comments WBC (test code = See_Comment [Automated 2437-2) message] The sy stem which generated this result transmitted reference range : 4.30 - 11.10 10*3/?L. The reference range was not used to interpret this result as normal/abnormal . RBC (test code = See_Comment [Automated 546-8) message] The sy stem which generated this [...] RDW-SD (test code = 41.6 fL 39.0-49.9 27124-4) RDW-CV (test code = 13.3 % 12.0-15.5 788-0) PLT (test code = See_Comment L [Automated 533-3) message] The sy stem which generated this result transmitted reference range : 166 - 358 10*3/ ?L. The reference r alexus was not used to interpret this result as normal/abnormal . MPV (test code = 10.2 fL 9.5-12.9 23808-9) IPF % (test code = 2.7 % 1.3-7.7 1203381165) NRBC/100 WBC (test See_Comment [Automat ed code = 1202581668) message] The system which generated this result transmitted reference range : 0.0 - 10.0 /100 WBCs. The refer ence range was not u sed to interpret th is result as normal/abnormal . NRBC x10^3 (test code <0.01 See_Comment [Auto mated = 3255834456) message] The s ystem which generated this result transmitted reference range : 10*3/?L. The reference range was not used to interpret this result as normal/abnormal . GRAN MAT (NEUT) % 59.5 % (test code = 770-8) IMM GRAN % (test code 0.60 % = 0165318189) LYMPH % (test code = 27.3 % 736-9) MONO % (test code = 8.8 % 5905-5) EOS % (test code = 3.0 % 713-8) BASO % (test code = 0.8 % 706-2) GRAN MAT x10^3(ANC) 3.70 10*3/uL 1.88-7.09 (test code = 0173874118) IMM GRAN x10^3 (test 0.04 10*3/uL 0.00-0.06 code = 3869982497) LYMPH x10^3 (test code 1.70 10*3/uL 1.32-3.29 = 731-0) MONO x10^3 (test code 0.55 10*3/uL 0.33-0.92 = 742-7) EOS x10^3 (test code = 0.19 10*3/uL 0.03-0.39 711-2) BASO x10^3 (test code 0.05 10*3/uL 0.01-0.07 = 704-7) Lab Interpretation Abnormal (test code = 51266-6) [facility] METABOLIC PANEL (NA, K, CL, CO2, GLUCOSE, BUN, CREATININE, CA)2021-01-23 10:18:59 Test Item Value Reference Range Interpretation Comments NA (test code = 136 mmol/L 135-145 0482667603) K (test code = 4.5 mmol/L 3.5-5.0 7719303586) CL (test code = 105 mmol/L 98-108 1278074910) CO2 TOTAL (test code = 24 mmol/L 23-31 4662824623) AGAP (test code = 2-16 4117842147) BUN (test code = 12 mg/dL 7-23 7680120302) GLUCOSE (test code = 176 mg/dL 70-110 H 1140092598) CREATININE (test code = 0.65 mg/dL 0.50-1.04 9153008756) CALCIUM (test code = 9.2 mg/dL 8.6-10.6 5209775130) eGFR (test code = mL/min/1.73m2 6449025524) CLARICE (test code = CLARICE) Association of [...] tests). Lab Interpretation Abnormal (test code = 49369-0) [facility] METABOLIC PANEL (NA, K, CL, CO2, GLUCOSE, BUN, CREATININE, CA)2021-01-23 10:18:59 Test Item Value Reference Range Interpretation Comments NA (test code = 6273852706) 136 mmol/L 135-145 K (test code = 6338745165) 4.5 mmol/L 3.5-5.0 CL (test code = 6673735965) 105 mmol/L 98-108 CO2 TOTAL (test code = 9686163286) 24 mmol/L 23-31 AGAP (test code = 0566477013) 2-16 BUN (test code = 3685138295) 12 mg/dL 7-23 GLUCOSE (test code = 5871433817) 176 mg/dL 70-110 H CREATININE (test code = 0.65 mg/dL 0.50-1.04 0200933160) CALCIUM (test code = 0196489397) 9.2 mg/dL 8.6-10.6 eGFR (test code = 4378527166) mL/min/1.73m2 CLARICE (test code = CLARICE) Lab Interpretation (test code = Abnormal 31123-0) [facility] GLUCOSE (AUTOMATED)2021-01-23 01:32:46 Test Item Value Reference Range Interpretation Comments POCT GLU (test code = 4957258604) 140 mg/dL 70-110 H Lab Interpretation (test code = Abnormal 79379-3) [facility] GLUCOSE (AUTOMATED)2021-01-23 01:32:46 Test Item Value Reference Range Interpretation Comments POCT GLU (test code = 0064407434) 140 mg/dL 70-110 H Lab Interpretation (test code = Abnormal 73443-1) [facility] GLUCOSE (AUTOMATED)2021-01-22 21:40:24 Test Item Value Reference Range Interpretation Comments POCT GLU (test code = 9294054501) 139 mg/dL 70-110 H Lab Interpretation (test code = Abnormal 04218-1) [facility] GLUCOSE (AUTOMATED)2021-01-22 21:40:24 Test Item Value Reference Range Interpretation Comments POCT GLU (test code = 0240999653) 139 mg/dL 70-110 H Lab Interpretation (test code = Abnormal 55203-3) [facility] GLUCOSE (AUTOMATED)2021-01-22 18:00:29 Test Item Value Reference Range Interpretation Comments POCT GLU (test code = 3434444505) 216 mg/dL 70-110 H Lab Interpretation (test code = Abnormal 02214-8) [facility] GLUCOSE (AUTOMATED)2021-01-22 18:00:29 Test Item Value Reference Range Interpretation Comments POCT GLU (test code = 9564976482) 216 mg/dL 70-110 H Lab Interpretation (test code = Abnormal 66138-8) [facility] GLUCOSE (AUTOMATED)2021-01-22 13:28:29 Test Item Value Reference Range Interpretation Comments POCT GLU (test code = 2851599550) 200 mg/dL 70-110 H Lab Interpretation (test code = Abnormal 52263-0) [facility] GLUCOSE (AUTOMATED)2021-01-22 13:28:29 Test Item Value Reference Range Interpretation Comments POCT GLU (test code = 5535234101) 200 mg/dL 70-110 H Lab Interpretation (test code = Abnormal 93711-8) [facility] Metabolic Panel (NA, K, CL, CO2, GLUCOSE, BUN, CREATININE, CA)2021-01-22 09:27:44 Test Item Value Reference Range Interpretation Comments NA (test code = 137 mmol/L 135-145 5272283602) K (test code = 4.2 mmol/L 3.5-5.0 9687610349) CL (test code = 108 mmol/L 98-108 9242795256) CO2 TOTAL (test code = 26 mmol/L 23-31 3304241975) AGAP (test code = 2-16 1323124191) BUN (test code = 11 mg/dL 7-23 6886453974) GLUCOSE (test code = 161 mg/dL 70-110 H 6474885028) CREATININE (test code = 0.63 mg/dL 0.50-1.04 4743304624) CALCIUM (test code = 8.5 mg/dL 8.6-10.6 L 9383721164) eGFR (test code = mL/min/1.73m2 3822851377) CLARICE (test code = CLARICE) Association of [...] tests). Lab Interpretation Abnormal (test code = 68848-6) [facility] Metabolic Panel (NA, K, CL, CO2, GLUCOSE, BUN, CREATININE, CA)2021-01-22 09:27:44 Test Item Value Reference Range Interpretation Comments NA (test code = 3225374141) 137 mmol/L 135-145 K (test code = 9706142951) 4.2 mmol/L 3.5-5.0 CL (test code = 6842652749) 108 mmol/L 98-108 CO2 TOTAL (test code = 8575236574) 26 mmol/L 23-31 AGAP (test code = 9731578294) 2-16 BUN (test code = 9385316039) 11 mg/dL 7-23 GLUCOSE (test code = 2803056877) 161 mg/dL 70-110 H CREATININE (test code = 0.63 mg/dL 0.50-1.04 5945819812) CALCIUM (test code = 1260114385) 8.5 mg/dL 8.6-10.6 L eGFR (test code = 6730242045) mL/min/1.73m2 CLARICE (test code = CLARICE) Lab Interpretation (test code = Abnormal 73066-7) [facility] with [id number] 09:15:44 Test Item Value Reference Range Interpretation [...] RDW-SD (test code = 42.1 fL 39.0-49.9 37362-6) RDW-CV (test code = 13.4 % 12.0-15.5 788-0) PLT (test code = See_Comment [Automated 777-3) message] The sy stem which generated this result transmitted reference range : 166 - 358 10*3/ ?L. The reference r alexus was not used to interpret this result as normal/abnormal . MPV (test code = 9.4 fL 9.5-12.9 L 48881-2) NRBC/100 WBC (test See_Comment [Automat ed code = 3067249372) message] The system which generated this result transmitted reference range : 0.0 - 10.0 /100 WBCs. The refer ence range was not u sed to interpret th is result as normal/abnormal . NRBC x10^3 (test code <0.01 See_Comment [Auto mated = 5351537938) message] The s ystem which generated this result transmitted reference range : 10*3/?L. The reference range was not used to interpret this result as normal/abnormal . GRAN MAT (NEUT) % 52.5 % (test code = 770-8) IMM GRAN % (test code 0.60 % = 7970824003) LYMPH % (test code = 31.2 % 736-9) MONO % (test code = 11.2 % 5905-5) EOS % (test code = 3.5 % 713-8) BASO % (test code = 1.0 % 706-2) GRAN MAT x10^3(ANC) 2.58 10*3/uL 1.88-7.09 (test code = 6131276482) IMM GRAN x10^3 (test 0.03 10*3/uL 0.00-0.06 code = 8999633004) LYMPH x10^3 (test code 1.53 10*3/uL 1.32-3.29 = 731-0) MONO x10^3 (test code 0.55 10*3/uL 0.33-0.92 = 742-7) EOS x10^3 (test code = 0.17 10*3/uL 0.03-0.39 711-2) BASO x10^3 (test code 0.05 10*3/uL 0.01-0.07 = 704-7) Lab Interpretation Abnormal (test code = 84380-1) [facility] with Jmynugxzkgge5488-32-28 09:15:44 Test Item Value Reference Range Interpretation Comments WBC (test code = See_Comment [Automated 6690-2) message] The sy stem which generated this result transmitted reference range : 4.30 - 11.10 10*3/?L. The reference range was not used to interpret this result as normal/abnormal . RBC (test code = See_Comment L [Automated 079-8) message] The sy stem which generated this [...] RDW-SD (test code = 42.1 fL 39.0-49.9 86905-6) RDW-CV (test code = 13.4 % 12.0-15.5 788-0) PLT (test code = See_Comment [Automated 777-3) message] The sy stem which generated this result transmitted reference range : 166 - 358 10*3/ ?L. The reference r alexus was not used to interpret this result as normal/abnormal . MPV (test code = 9.4 fL 9.5-12.9 L 49760-2) NRBC/100 WBC (test See_Comment [Automat ed code = 0726429973) message] The system which generated this result transmitted reference range : 0.0 - 10.0 /100 WBCs. The refer ence range was not u sed to interpret th is result as normal/abnormal . NRBC x10^3 (test code <0.01 See_Comment [Auto mated = 7652843742) message] The s ystem which generated this result transmitted reference range : 10*3/?L. The reference range was not used to interpret this result as normal/abnormal . GRAN MAT (NEUT) % 52.5 % (test code = 770-8) IMM GRAN % (test code 0.60 % = 3276754534) LYMPH % (test code = 31.2 % 736-9) MONO % (test code = 11.2 % 5905-5) EOS % (test code = 3.5 % 713-8) BASO % (test code = 1.0 % 706-2) GRAN MAT x10^3(ANC) 2.58 10*3/uL 1.88-7.09 (test code = 1101802933) IMM GRAN x10^3 (test 0.03 10*3/uL 0.00-0.06 code = 8923500498) LYMPH x10^3 (test code 1.53 10*3/uL 1.32-3.29 = 731-0) MONO x10^3 (test code 0.55 10*3/uL 0.33-0.92 = 742-7) EOS x10^3 (test code = 0.17 10*3/uL 0.03-0.39 711-2) BASO x10^3 (test code 0.05 10*3/uL 0.01-0.07 = 704-7) Lab Interpretation Abnormal (test code = 81177-1) [facility] GLUCOSE (AUTOMATED)2021-01-22 01:48:46 Test Item Value Reference Range Interpretation Comments POCT GLU (test code = 2020869073) 218 mg/dL 70-110 H Lab Interpretation (test code = Abnormal 29437-7) [facility] GLUCOSE (AUTOMATED)2021-01-22 01:48:46 Test Item Value Reference Range Interpretation Comments POCT GLU (test code = 2620727536) 218 mg/dL 70-110 H Lab Interpretation (test code = Abnormal 27789-8) [facility] [id number] 00:23:56No acute or adverse change compared to the prior exam. AFC: 83691.RL: 8228, I can be reached at [phone]. Ordering Physician: Carmen Brennan History: Shortness of [...] adverse change compared to the prior exam.AFC: 87966.RL: 8228, I can be reached at [phone]. [facility] [id number] 00:23:56No acute or adverse change compared to the prior exam. AFC: 74075.RL: 8228, I can be reached at [phone]. Ordering Physician: Carmen Brennan History: Shortness of [...] adverse change compared to the prior exam.AFC: 14815.RL: 8228, I can be reached at [phone]. [facility] 22:25:03 Test Item Value Reference Range Interpretation Comments POCT GLU (test code = 3515432164) 104 mg/dL 70-110 Lab Interpretation (test code = Normal 64165-2) [facility] GLUCOSE (AUTOMATED)2021-01-21 22:25:03 Test Item Value Reference Range Interpretation Comments POCT GLU (test code = 7899576932) 186 mg/dL 70-110 H Lab Interpretation (test code = Abnormal 30151-3) [facility] GLUCOSE (AUTOMATED)2021-01-21 22:25:03 Test Item Value Reference Range Interpretation Comments POCT GLU (test code = 2712264306) 104 mg/dL 70-110 Lab Interpretation (test code = Normal 54536-2) [facility] GLUCOSE (AUTOMATED)2021-01-21 22:25:03 Test Item Value Reference Range Interpretation Comments POCT GLU (test code = 6366835071) 186 mg/dL 70-110 H Lab Interpretation (test code = Abnormal 27691-9) [facility] GLUCOSE (AUTOMATED)2021-01-21 22:25:02 Test Item Value Reference Range Interpretation Comments POCT GLU (test code = 2903204186) 81 mg/dL 70-110 Lab Interpretation (test code = Normal 15158-4) [facility] GLUCOSE (AUTOMATED)2021-01-21 22:25:02 Test Item Value Reference Range Interpretation Comments POCT GLU (test code = 8914482929) 81 mg/dL 70-110 Lab Interpretation (test code = Normal 55120-9) [facility] GLUCOSE (AUTOMATED)2021-01-21 22:24:57 Test Item Value Reference Range Interpretation Comments POCT GLU (test code = 6685281996) 205 mg/dL 70-110 H Lab Interpretation (test code = Abnormal 54647-1) [facility] GLUCOSE (AUTOMATED)2021-01-21 22:24:57 Test Item Value Reference Range Interpretation Comments POCT GLU (test code = 5892717804) 205 mg/dL 70-110 H Lab Interpretation (test code = Abnormal 81865-1) [facility] ANGIOGRAM [id number] 16:24:55 No intracranial proximal large vessel occlusion. [...] ? COMPARISON: None. FINDINGS: CTA of the [place] reveals no intracranial proximal large [...] injected intravenously. COMPARISON: None.FINDINGS: CTA of the [place] reveals no intracranial proximal large [...] proximal large vessel occlusion.No significant extracranial s tenosis.[facility] [id number] 16:24:55 No intracranial proximal large vessel occlusion. [...] ? COMPARISON: None. FINDINGS: CTA of the [place] reveals no intracranial proximal large [...] injected intravenously. COMPARISON: None.FINDINGS: CTA of the [place] reveals no intracranial proximal large [...] proximal large vessel occlusion.No significant extracranial s tenosis.[facility] [id number] 16:24:55 No intracranial proximal large vessel occlusion. [...] ? COMPARISON: None. FINDINGS: CTA of the [place] reveals no intracranial proximal large [...] injected intravenously. COMPARISON: None.FINDINGS: CTA of the [place] reveals no intracranial proximal large [...] proximal large vessel occlusion.No significant extracranial s tenosis.[facility] [id number] 16:24:55 No intracranial proximal large vessel occlusion. [...] ? COMPARISON: None. FINDINGS: CTA of the [place] reveals no intracranial proximal large [...] injected intravenously. COMPARISON: None.FINDINGS: CTA of the [place] reveals no intracranial proximal large [...] proximal large vessel occlusion.No significant extracranial s tenosis.[facility] (NA, K, CL, CO2, GLUCOSE, BUN, CREATININE, CA)2021-01-21 15:03:17 Test Item Value Reference Range Interpretation Comments NA (test code = 137 mmol/L 135-145 6883791259) K (test code = 4.3 mmol/L 3.5-5.0 3998865884) CL (test code = 102 mmol/L 98-108 1086550392) CO2 TOTAL (test code 25 mmol/L 23-31 = 4382366567) AGAP (test code = 2-16 7505432548) BUN (test code = 15 mg/dL 7-23 3150372886) GLUCOSE (test code = 101 mg/dL 70-110 5093976743) CREATININE (test code 0.67 mg/dL 0.50-1.04 = 9410495691) CALCIUM (test code = 9.2 mg/dL 8.6-10.6 0937238703) eGFR (test code = mL/min/1.73m2 4818395880) CLARICE (test code = CLARICE) Association of [...] or urine or abnormalities in imaging tests). [facility] METABOLIC PANEL (NA, K, CL, CO2, GLUCOSE, BUN, CREATININE, CA)2021-01-21 15:03:17 Test Item Value Reference Range Interpretation Comments NA (test code = 9392870952) 137 mmol/L 135-145 K (test code = 1605158285) 4.3 mmol/L 3.5-5.0 CL (test code = 2740502558) 102 mmol/L 98-108 CO2 TOTAL (test code = 7613837871) 25 mmol/L 23-31 AGAP (test code = 1064826256) 2-16 BUN (test code = 2323478735) 15 mg/dL 7-23 GLUCOSE (test code = 7072192525) 101 mg/dL 70-110 CREATININE (test code = 0.67 mg/dL 0.50-1.04 9084746001) CALCIUM (test code = 4181517100) 9.2 mg/dL 8.6-10.6 eGFR (test code = 1920729333) mL/min/1.73m2 CLARICE (test code = CLARICE) [facility] GLUCOSE (AUTOMATED)2021-01-21 13:20:02 Test Item Value Reference Range Interpretation Comments POCT GLU (test code = 6082220631) 224 mg/dL 70-110 H Lab Interpretation (test code = Abnormal 46514-3) [facility] GLUCOSE (AUTOMATED)2021-01-21 13:20:02 Test Item Value Reference Range Interpretation Comments POCT GLU (test code = 1190177710) 224 mg/dL 70-110 H Lab Interpretation (test code = Abnormal 43488-1) [facility] [id number] 12:28:29 Test Item Value Reference Range Interpretation Comments TSH (test code = See_Comment Biotin has been 9067630500) reported to cau se a negative bias, interpret resul ts relative to pat ient's use of biotin. [Automated mess age] The system [employer] generated this result transmitted ref erence range: 0.45 - 4 .70 mIU/L. The refe rence range was not u sed to interpret this result as normal/abnor mal. Lab Interpretation (test Normal code = 62553-6) [facility] [id number] 12:28:29 Test Item Value Reference Range Interpretation Comments TSH (test code = See_Comment [Automated message] 4363137049) The system [employer] generated this result transmitted ref erence range: 0.45 - 4 .70 mIU/L. The refe rence range was not u sed to interpret this result as normal/abnor mal. Lab Interpretation (test Normal code = 13688-1) [facility] Center[facility] Whole [id number] 09:09:36 Test Item Value Reference Range Interpretation Comments LACTIC ACID (test code = 2.13 mmol/L 0.50-2.20 8295095893) Lab Interpretation (test code = Normal 49749-3) [facility] CenterL[facility] Acid Whole [id number] 09:09:36 Test Item Value Reference Range Interpretation Comments LACTIC ACID (test code = 2.13 mmol/L 0.50-2.20 9296206895) Lab Interpretation (test code = Normal 04534-8) [facility] COVID [id number] 02:31:30COVID DMT InterpretationInterpretation/Recommendations:Molecular NAAT Tests for Active [...] 1-2 weeks prior to antibody testing, any yburorouTYGY-NxL-9 IgG antibody result is likely due to [...] testing the patient has had at [facility], including molecular NAAT testing (more commonly known as PCR testing and Rapid ID Now testing) and antibody testing. It does not take into account any testing that a patient has had outside of the [facility] medical record. [facility] LABORATORY SERVICESCOVID VsbjuepPSRG-RsU-0 Rapid ID NOW (no units) ? ? Date ? Value ? 01/20/2021 ? Not Detected ? ? ? 09/20/2019 ? Not Detected ? [facility] SERVICESUnDo[facility]aredoLAB ONLY COVID [id number] 02:31:30COVID DMT InterpretationInterpretation/Recommendations:Molecular NAAT Tests for Active [...] testing the patient has had at [facility], including molecular NAAT testing (more commonly known as PCR testing and Rapid ID Now testing) and antibody testing. It does not take into account any testing that a patient has had outside of the [facility] medical record. [facility] LABORATORY SERVICESCOVID DingoxfANYB-WtS-7 Rapid ID NOW (no units) ? ? Date ? Value ? 01/20/2021 ? Not Detected ? ? ? 09/20/2019 ? N ot Detected ? [facility]ORATORY SERVICESUnDoctors Hospital [facility] LaredoXR CHEST 1 [id number] 02:12:27Impression: No acute abnormalities evident. RL: 460 [...] post cervical fusion.IMPRESSIONImpression:No acute abnormalities evident.RL: 460 [facility] [id number] 02:12:27Impression: No acute abnormalities evident. RL: 460 [...] post cervical fusion.IMPRESSIONImpression:No acute abnormalities evident.RL: 460 [facility]aredoCT ABDOMEN PELVIS W [id number] 02:03:44Impression: 1. No prior studies available.2. Cholecystectomy [...] Moderate colonic fecal retention.RL: 460End of Report [facility]BDOMEN PELVIS W [id number] 02:03:44Impression: 1. No prior studies available.2. Cholecystectomy [...] Moderate colonic fecal retention.RL: 460[facility] [id number] 23:16:36No acute findings. HISTORY:Neuro deficit, acute, stroke [...] extracranial tissues demonstrate no acute findings.IMPRESSIONNo acute findings.[facility] HEAD WO [id number] 23:16:36No acute findings. HISTORY:Neuro deficit, acute, stroke [...] extracranial tissues demonstrate no acute findings.IMPRESSIONNo acute findings.[facility] Center[facility] (ID NOW RAPID TESTING)2021-01-20 23:07:03 Test Item Value Reference Range Interpretation Comments SARS-CoV-2 Rapid ID NOW Not Detected Not Detected (test code = 16329-4) CLARICE (test code = CLARICE) ID NOW COVID-19 Assay is an isothermal nucleic acid amplification test intended for the qualitative detection of nucleic acid from SARS-CoV-2 viral RNA in nasopharyngeal (DIE FINISHER) specimens. It is used under Emergency Use [...] indicated. Lab Interpretation Normal (test code = 79277-3) [facility] (ID NOW RAPID TESTING)2021-01-20 23:07:03 Test Item Value Reference Range Interpretation Comments SARS-CoV-2 Rapid ID NOW (test Not Detected Not Detected code = 48760-6) CLARICE (test code = CLARICE) Lab Interpretation (test code = Normal 41062-8) [facility] CenterUrinalysis2021-08-20 22:53:37 Test Item Value Reference Range Interpretation Comments APPEARANCE (test code = Hazy Clear A 9626168366) COLOR (test code = Yellow Yellow 3622856637) PH (test code = 4.8-8.0 8573583327) SP GRAVITY (test code = 1.003-1.030 7368150518) GLU U QUAL (test code = Normal Normal 3137657242) BLOOD (test code = Negative Negative 5226680357) KETONES (test code = 5 mg/dL Negative A 9825031609) PROTEIN (test code = Negative Negative 2887-8) UROBILIN (test code = Normal Normal 0105543256) BILIRUBIN (test code = Negative Negative 2250102573) NITRITE (test code = Positive Negative A 1891795070) LEUK JONAS (test code = 75/uL Negative A 6753281109) RBC/HPF (test code = See_Comment [Autom ated message] 0926168875) The system [employer] generated this result transmitted ref erence range: 0 - 3 HP F. The reference range was not used to int erpret this result as normal/abnormal . WBC/HPF (test code = See_Comment [Autom ated message] 4716146771) The system [employer] generated this result transmitted ref erence range: 0 - 5 HP F. The reference range was not used to int erpret this result as normal/abnormal . BACTERIA (test code = Many Negative A 6775404955) MUCOUS (test code = Slight Negative LPF A 3075826506) SQ EPITH (test code = HPF 3917339000) Lab Interpretation (test Abnormal code = 19083-7) [facility] CenterUrinalysis2021-08-20 22:53:37 Test Item Value Reference Range Interpretation Comments APPEARANCE (test code = Hazy Clear A 8386148303) COLOR (test code = Yellow Yellow 9013930804) PH (test code = 4.8-8.0 0472386770) SP GRAVITY (test code = 1.003-1.030 6885155635) GLU U QUAL (test code = Normal Normal 7539691816) BLOOD (test code = Negative Negative 1870966104) KETONES (test code = 5 mg/dL Negative A 4127716506) PROTEIN (test code = Negative Negative 2887-8) UROBILIN (test code = Normal Normal 6695892973) BILIRUBIN (test code = Negative Negative 4907794716) NITRITE (test code = Positive Negative A 9384187677) LEUK JONAS (test code = 75/uL Negative A 2575432372) RBC/HPF (test code = See_Comment [Autom ated message] 9628286587) The system [employer] generated this result transmitted ref erence range: 0 - 3 HP F. The reference range was not used to int erpret this result as normal/abnormal . WBC/HPF (test code = See_Comment [Autom ated message] 3034258553) The system [employer] generated this result transmitted ref erence range: 0 - 5 HP F. The reference range was not used to int erpret this result as normal/abnormal . BACTERIA (test code = Many Negative A 7541535248) MUCOUS (test code = Slight Negative LPF A 4009382720) SQ EPITH (test code = HPF 6538263486) Lab Interpretation (test Abnormal code = 59046-6) [facility] [id number] 22:51:39 Test Item Value Reference Interpretation Comments Range TROPONIN I (test 0.002 ng/mL See_Comment [Automated code = 3385145194) message] The system which generated this result [...] biotin. Lab Interpretation Normal (test code = 48892-8) [facility] [id number] 22:51:39 Test Item Value Reference Range Interpretation Comments TROPONIN I (test code = 0.002 ng/mL See_Comment [Au tomated 7747869565) message] The sy stem which generated this result transmitted reference range : <=0.034. The reference range was not used to interpret this result as normal/abnormal . CLARICE (test code = CLARICE) Lab Interpretation Normal (test code = 85273-3) [facility]. Metabolic Panel (36334)2021-01-20 22:39:56 Test Item Value Reference Range Interpretation Comments NA (test code = 137 mmol/L 135-145 3645400685) K (test code = 4.1 mmol/L 3.5-5.0 8305812540) CL (test code = 100 mmol/L 98-108 2186230123) CO2 TOTAL (test code = 24 mmol/L 23-31 3200884660) AGAP (test code = 2-16 5859836847) BUN (test code = 15 mg/dL 7-23 9970289878) GLUCOSE (test code = 163 mg/dL 70-110 H 4487213002) CREATININE (test code = 0.71 mg/dL 0.50-1.04 9117504373) TOTAL BILI (test code = 0.6 mg/dL 0.1-1.5 0084110223) CALCIUM (test code = 9.7 mg/dL 8.6-10.6 1277318295) T PROTEIN (test code = 7.5 g/dL 6.3-8.2 9400121309) ALBUMIN (test code = 4.6 g/dL 3.5-5.0 9136931888) ALK PHOS (test code = 139 U/L 34-122 H 5066905805) ALTv (test code = 27 U/L 5-35 1742-6) AST(SGOT) (test code = 28 U/L 13-40 0823482990) eGFR (test code = mL/min/1.73m2 4687186781) CLARICE (test code = CLARICE) Association of [...] tests). Lab Interpretation Abnormal (test code = 24356-6) [facility]. Metabolic Panel (33809)2021-01-20 22:39:56 Test Item Value Reference Range Interpretation Comments NA (test code = 0802080160) 137 mmol/L 135-145 K (test code = 4634602988) 4.1 mmol/L 3.5-5.0 CL (test code = 5394267815) 100 mmol/L 98-108 CO2 TOTAL (test code = 1561674842) 24 mmol/L 23-31 AGAP (test code = 1473556641) 2-16 BUN (test code = 6821576321) 15 mg/dL 7-23 GLUCOSE (test code = 4311851189) 163 mg/dL 70-110 H CREATININE (test code = 0.71 mg/dL 0.50-1.04 2434679433) TOTAL BILI (test code = 0.6 mg/dL 0.1-1.0 9826859879) CALCIUM (test code = 2391021514) 9.7 mg/dL 8.6-10.6 T PROTEIN (test code = 4798441525) 7.5 g/dL 6.3-8.2 ALBUMIN (test code = 1017469501) 4.6 g/dL 3.5-5.0 ALK PHOS (test code = 3827811885) 139 U/L 34-122 H ALTv (test code = 1742-6) 27 U/L 5-35 AST(SGOT) (test code = 4618074149) 28 U/L 13-40 eGFR (test code = 0332064043) mL/min/1.73m2 CLARICE (test code = CLARICE) Lab Interpretation (test code = Abnormal 17182-3) [facility] with [id number] 22:27:13 Test Item Value Reference Range Interpretation Comments WBC (test code = See_Comment [Automated message] 6690-2) The system [employer] generated this result transmitted ref erence range: 4.30 - 1 1.10 10*3/?L. The re ference range was not u sed to interpret this result as normal/abnor mal. RBC (test code = See_Comment [Automated message] 789-8) The system [employer] generated this result transmitted ref erence range: [...] RDW-SD (test code 42.1 fL 39.0-49.9 = 55174-6) RDW-CV (test code 13.3 % 12.0-15.5 = 788-0) PLT (test code = See_Comment [Automated message] 777-3) The system [employer] generated this result transmitted ref erence range: 166 - 35 8 10*3/?L. The re ference range was not u sed to interpret this result as normal/abnor mal. MPV (test code = 9.7 fL 9.5-12.9 56781-1) NRBC/100 WBC (test See_Comment [Automat ed message] code = 8196673946) The syste m which generated this result transmitted ref erence range: 0.0 - 10 .0 /100 WBCs. The refer ence range was not u sed to interpret this result as normal/abnor mal. NRBC x10^3 (test <0.01 See_Comment [Automated message] code = 7151770060) The syste m which generated this result transmitted ref erence range: 10*3/?L. The reference range was not used to interpr et this result as normal/abnormal . GRAN MAT (NEUT) % 59.6 % (test code = 770-8) IMM GRAN % (test 0.70 % code = 5954564658) LYMPH % (test code 27.3 % = 736-9) MONO % (test code 9.4 % = 5905-5) EOS % (test code = 2.0 % 713-8) BASO % (test code 1.0 % = 706-2) GRAN MAT 4.39 10*3/uL 1.88-7.09 x10^3(ANC) (test code = 6899669054) IMM GRAN x10^3 0.05 10*3/uL 0.00-0.06 (test code = 1091682373) LYMPH x10^3 (test 2.01 10*3/uL 1.32-3.29 code = 731-0) MONO x10^3 (test 0.69 10*3/uL 0.33-0.92 code = 742-7) EOS x10^3 (test 0.15 10*3/uL 0.03-0.39 code = 711-2) BASO x10^3 (test 0.07 10*3/uL 0.01-0.07 code = 704-7) [facility] with [id number] 22:27:13 Test Item Value Reference Range Interpretation Comments WBC (test code = See_Comment [Automated message] 8790-2) The system [employer] generated this result transmitted ref erence range: 4.30 - 1 1.10 10*3/?L. The re ference range was not u sed to interpret this result as normal/abnor mal. RBC (test code = See_Comment [Automated message] 789-8) The system [employer] generated this result transmitted ref erence range: 3.93 - 5 .25 10*6/?L. The re ference range was not u sed to interpret this result as normal/abnor mal. HGB (test code = 13.2 g/dL 11.6-15.0 258-7) HCT (test code = 39.8 % 35.7-45.2 4544-3) MCV (test code = 86.0 fL 80.6-95.5 787-2) MCH (test code = 28.5 pg 25.9-32.8 785-6) MCHC (test code = 33.2 g/dL 31.6-35.1 786-4) RDW-SD (test code 42.1 fL 39.0-49.9 = 05647-0) RDW-CV (test code 13.3 % 12.0-15.5 = 788-0) PLT (test code = See_Comment [Automated message] 777-3) The system whic h generated this result transmitted ref erence range: 166 - 35 8 10*3/?L. The re ference range was not u sed to interpret this result as normal/abnor mal. MPV (test code = 9.7 fL 9.5-12.9 81673-2) NRBC/100 WBC (test See_Comment [Automat ed message] code = 2796123537) The syste m which generated this result transmitted ref erence range: 0.0 - 10 .0 /100 WBCs. The refer ence range was not u sed to interpret this result as normal/abnor mal. NRBC x10^3 (test <0.01 See_Comment [Automated message] code = 5126308621) The syste m which generated this result transmitted ref erence range: 10*3/?L. The reference range was not used to interpr et this result as normal/abnormal . GRAN MAT (NEUT) % 59.6 % (test code = 770-8) IMM GRAN % (test 0.70 % code = 8357958141) LYMPH % (test code 27.3 % = 736-9) MONO % (test code 9.4 % = 5905-5) EOS % (test code = 2.0 % 713-8) BASO % (test code 1.0 % = 706-2) GRAN MAT 4.39 10*3/uL 1.88-7.09 x10^3(ANC) (test code = 1558446771) IMM GRAN x10^3 0.05 10*3/uL 0.00-0.06 (test code = 1431648471) LYMPH x10^3 (test 2.01 10*3/uL 1.32-3.29 code = 731-0) MONO x10^3 (test 0.69 10*3/uL 0.33-0.92 code = 742-7) EOS x10^3 (test 0.15 10*3/uL 0.03-0.39 code = 711-2) BASO x10^3 (test 0.07 10*3/uL 0.01-0.07 code = 704-7) [id number] 22:15:02 Test Item Value Reference Range Interpretation Comments LACTIC ACID (test code = 3.26 mmol/L 0.50-2.20 H 3469278859) Lab Interpretation (test code = Abnormal 25615-2) [facility] [id number] 22:15:02 Test Item Value Reference Range Interpretation Comments LACTIC ACID (test code = 3.26 mmol/L 0.50-2.20 H 5375091772) Lab Interpretation (test code = Abnormal 52507-4) [facility] [id number] 20:16:00 Test Item Value Reference Range Interpretation Comments SARS-CoV-2 (test code = Not Detected Not Detected 35550-6) CLARICE (test code = CLARICE) ID NOW COVID-19 Assay is an isothermal nucleic acid amplification test intended for the qualitative detection of nucleic acid from SARS-CoV-2 viral RNA in nasopharyngeal (DIE FINISHER) specimens. It is used under Emergency Use [...] indicated. Lab Interpretation Normal (test code = 09676-4) [facility] 20:11[facility]00 Test Item Value Reference Range Interpretation Comments APPEARANCE (test code = Clear Clear 5222933256) COLOR (test code = Yellow Yellow 9842153932) PH (test code = 4.8-8.0 3948074819) SP GRAVITY (test code = 1.003-1.030 6625014446) GLU U QUAL (test code = 500 mg/dL Normal A 8393527027) BLOOD (test code = Negative Negative 1181112688) KETONES (test code = Negative Negative 1351980718) PROTEIN (test code = Negative Negative 2887-8) UROBILIN (test code = Normal Normal 1688944731) BILIRUBIN (test code = Negative Negative 7202376212) NITRITE (test code = Positive Negative A 7668947267) LEUK JONAS (test code = Negative Negative 7167794742) RBC/HPF (test code = <1 See_Comment [Autom ated message] 7976730694) The system [employer] generated this result transmit beth reference range : 0 - 3 HPF. The refe rence range was not u sed to interpret th is result as normal/abnormal . WBC/HPF (test code = See_Comment [Autom ated message] 2844537194) The system [employer] generated this result transmit beth reference range : 0 - 5 HPF. The refe rence range was not u sed to interpret th is result as normal/abnormal . BACTERIA (test code = Few Negative A 1337294988) MUCOUS (test code = Slight Negative LPF A 6877991628) SQ EPITH (test code = HPF 8804399807) Lab Interpretation (test Abnormal code = 64892-4) [facility]. METABOLIC PANEL (10237)2019-09-20 19:54:00 Test Item Value Reference Range Interpretation Comments NA (test code = 138 mmol/L 135-145 5133729187) K (test code = 4.3 mmol/L 3.5-5 3670257614) CL (test code = 100 mmol/L 98-108 0462072212) CO2 TOTAL (test code = 28 mmol/L 23-31 5641506028) AGAP (test code = 2-16 6196448067) BUN (test code = 14 mg/dL 7-23 8382329960) GLUCOSE (test code = 264 mg/dL 70-110 H 1666946636) CREATININE (test code = 0.56 mg/dL 0.5-1.04 9270875936) TOTAL BILI (test code = 0.4 mg/dL 0.1-1.4 0846432302) CALCIUM (test code = 9.4 mg/dL 8.6-10.6 6205134512) T PROTEIN (test code = 7.3 g/dL 6.3-8.2 3075613956) ALBUMIN (test code = 4.3 g/dL 3.5-5 4219102124) ALK PHOS (test code = 189 U/L 34-122 H 9157592816) ALTv (test code = 35 U/L 5-35 1742-6) AST(SGOT) (test code = 36 U/L 13-40 0853160784) eGFR Calculation mL/min/1.73m2 (Non-) (test code = 9505591667) eGFR Calculation mL/min/1.73m2 () (test code = 9834487718) CLARICE (test code = CLARICE) Association of [...] tests). Lab Interpretation Abnormal (test code = 69979-6) [facility] VW [id number] 19:50:26 No acute cardiopulmonary process. Disclaimer: Generally, the findings on chest imaging in COVID-19 are notspecific, and overlap with other infections, including influenza, H1N1,SARS and MERS.Accordingto the Centers for Disease Control (CDC) and the [employer], viral testing remainsthe only specific [...] versus post surgicalchange, unchanged. Right AC osteoarthrosis. [facility], Radiant Results Inft User - 09/20/2019 2:51 [...] Centers for Disease Control (CDC) and the [employer], viral testing remains the only specific method of diagnosiseven if CXR or CT findings are suggestive of COVID-19. Preliminary Report Dictated by Resident: Callum Coy MD., have reviewed this study and agree withthe above report.[facility] WITH [id number] 19:43:00 Test Item Value Reference Range Interpretation Comments WBC (test code = See_Comment [Automated message] 6690-2) The system [employer] generated this result transmitted ref erence range: 4.30 - 1 1.10 10*3/?L. The re ference range was not u sed to interpret this result as normal/abnor mal. RBC (test code = See_Comment [Automated message] 789-8) The system [employer] generated this result transmitted ref erence range: [...] RDW-SD (test code 42.6 fL 39-49.9 = 02514-0) RDW-CV (test code 13.2 % 12-15.5 = 788-0) PLT (test code = See_Comment [Automated message] 777-3) The system [employer] generated this result transmitted ref erence range: 166 - 35 8 10*3/?L. The re ference range was not u sed to interpret this result as normal/abnor mal. MPV (test code = 11.1 fL 9.5-12.9 93785-1) NRBC/100 WBC (test See_Comment [Automat ed message] code = 3775518655) The syste m which generated this result transmitted ref erence range: 0.0 - 10 .0 /100 WBCs. The refer ence range was not u sed to interpret this result as normal/abnor mal. NRBC x10^3 (test <0.01 See_Comment [Automated message] code = 3287061162) The syste m which generated this result transmitted ref erence range: 10*3/?L. The reference range was not used to interpr et this result as normal/abnormal . GRAN MAT (NEUT) % 56.4 % (test code = 770-8) IMM GRAN % (test 0.80 % code = 8501137435) LYMPH % (test code 28.5 % = 736-9) MONO % (test code 8.4 % = 5905-5) EOS % (test code = 5.0 % 713-8) BASO % (test code 0.9 % = 706-2) GRAN MAT 4.28 10*3/uL 1.88-7.09 x10^3(ANC) (test code = 1747788729) IMM GRAN x10^3 0.06 10*3/uL 0-0.06 (test code = 2661022398) LYMPH x10^3 (test 2.16 10*3/uL 1.32-3.29 code = 731-0) MONO x10^3 (test 0.64 10*3/uL 0.33-0.92 code = 742-7) EOS x10^3 (test 0.38 10*3/uL 0.03-0.39 code = 711-2) BASO x10^3 (test 0.07 10*3/uL 0.01-0.07 code = 704-7) [facility] [id number] 14:12:56 Test Item Value Reference Range Interpretation [...] Interpretation Comments POCT GLU (test code = 1563730877) 178 mg/dL 70-110 H Lab Interpretation (test code = Abnormal 68290-3) [facility] 04:56:00 Test Item Value Reference Range Interpretation Comments APPEARANCE (test code = Hazy Clear A 1172831077) COLOR (test code = Yellow Yellow 5189877189) PH (test code = 4.8-8.0 2228489252) SP GRAVITY (test code = 1.003-1.030 H 8603640427) GLU U QUAL (test code = 50 mg/dL Normal A 0252579684) BLOOD (test code = Negative Negative 1922603342) KETONES (test code = Negative Negative 0599710481) PROTEIN (test code = Negative Negative 2887-8) UROBILIN (test code = Normal Normal 6396612038) BILIRUBIN (test code = Negative Negative 5920076146) NITRITE (test code = Negative Negative 6072793456) LEUK JONAS (test code = 500/uL Negative A 4710192534) RBC/HPF (test code = See_Comment H [Autom ated message] 6539999771) The system [employer] generated this result transmitted ref erence range: 0 - 3 HP F. The reference range was not used to int erpret this result as normal/abnormal . WBC/HPF (test code = See_Comment H [Autom ated message] 8145310108) The system [employer] generated this result transmitted ref erence range: 0 - 5 HP F. The reference range was not used to int erpret this result as normal/abnormal . BACTERIA (test code = Negative Negative 6246214245) MUCOUS (test code = Moderate Negative LPF A 5074957958) SQ EPITH (test code = HPF 0096784577) HYAL CAST (test code = See_Comment H [Aut omated message] 0880498433) The system [employer] generated this result transmitted ref erence range: <=2 LPF. The reference range was not used to int erpret this result as normal/abnormal . Lab Interpretation (test Abnormal code = 85701-7) [facility] [id number] 03:35:23 A pulmonary embolism is identified in [...] propagates to the lower lobe segmental branches) [id number] on 02/14/2019. Daria Jackson MD., have reviewed this study and agree [...] propagates to the lower lobe segmental branches) [id number] on 02/14/2019.I, Callum Haynes MD., have reviewed this study and agree withthe above report.[facility]TR[facility] [id number] 02:14:00 Test Item Value Reference Range Interpretation Comments TROPONIN I (test 0.001 ng/mL See_Comment [Automated code = 3342493510) message] The system which generated this result [...] ? Lab Interpretation Normal (test code = 81845-7) [facility]AL [id number] 02:11:00 Test Item Value Reference Range Interpretation Comments NT-proBNP (test code 44 pg/mL See_Comment [Autom ated = 9722690223) message] The system which generated this result transmitted reference range : <=125. The reference range was not used to interpret this result as normal/abnormal . CLARICE (test code = CLARICE) Biotin has been reported to cause a negative bias, interpret results relative to patient's use of biotin. Lab Interpretation Normal (test code = 06913-8) [facility]PTT2019-[facility] 02:06:00 Test Item Value Reference Range Interpretation Comments APTT Patient (test See_Comment [Automat ed code = 3173-2) message] The system which generated this result transmitted reference range : 23 - 38 Seconds . The reference range was not used to interpr et this result as normal/abnormal . CLARICE (test code = CLARICE) The [facility] patient population mean normal value for aPTT is 30 seconds. Lab Interpretation Normal (test code = 11111-5) [facility] CenterPROTHROMBIN TIME / [id number] 02:04:00 Test Item Value Reference Range Interpretation [...] tions. Lab Interpretation (test Normal code = 94928-6) [facility] METABOLIC PANEL (85269)2019-02-15 02:03:00 Test Item Value Reference Range Interpretation Comments NA (test code = 142 mmol/L 135-145 6046113280) K (test code = 4.6 mmol/L 3.5-5 3219634978) CL (test code = 104 mmol/L 98-108 7694286443) CO2 TOTAL (test code = 26 mmol/L 23-31 0033928223) AGAP (test code = 2-16 0115425412) BUN (test code = 20 mg/dL 7-23 1388255628) GLUCOSE (test code = 200 mg/dL 70-110 H 4293367587) CREATININE (test code = 0.65 mg/dL 0.5-1.04 4594008827) TOTAL BILI (test code = 0.3 mg/dL 0.1-1.6 6669602254) CALCIUM (test code = 10.3 mg/dL 8.6-10.6 8503752343) T PROTEIN (test code = 7.6 g/dL 6.3-8.2 3523683054) ALBUMIN (test code = 4.6 g/dL 3.5-5 7612013521) ALK PHOS (test code = 157 U/L 34-122 H 4926235397) ALT(SGPT) (test code = 40 U/L 9-51 4768889542) AST(SGOT) (test code = 37 U/L 13-40 3514418900) eGFR Calculation mL/min/1.73m2 (Non-) (test code = 2851117147) eGFR Calculation mL/min/1.73m2 () (test code = 2925031741) CLARICE (test code = CLARICE) Association of [...] tests). Lab Interpretation Abnormal (test code = 51585-1) [facility] WITH [id number] 01:53:00 Test Item Value Reference Range Interpretation Comments WBC (test code = See_Comment [Automated 8956-2) message] The sy stem which generated this result transmitted reference range : 4.30 - 11.10 10*3/?L. The reference range was not used to interpret this result as normal/abnormal . RBC (test code = See_Comment [Automated 123-8) message] The sy stem which generated this [...] RDW-SD (test code = 42.5 fL 39-49.9 87753-1) RDW-CV (test code = 13.6 % 12-15.5 788-0) PLT (test code = See_Comment [Automated 777-3) message] The sy stem which generated this result transmitted reference range : 166 - 358 10*3/ ?L. The reference r alexus was not used to interpret this result as normal/abnormal . MPV (test code = 10.1 fL 9.5-12.9 14661-0) NRBC/100 WBC (test See_Comment [Automat ed code = 5789264549) message] The system which generated this result transmitted reference range : 0.0 - 10.0 /100 WBCs. The refer ence range was not u sed to interpret th is result as normal/abnormal . NRBC x10^3 (test code <0.01 See_Comment [Auto mated = 6135457468) message] The s ystem which generated this result transmitted reference range : 10*3/?L. The reference range was not used to interpret this result as normal/abnormal . GRAN MAT (NEUT) % 58.3 % (test code = 770-8) IMM GRAN % (test code 0.30 % = 8212274263) LYMPH % (test code = 28.5 % 736-9) MONO % (test code = 9.5 % 5905-5) EOS % (test code = 2.7 % 713-8) BASO % (test code = 0.7 % 706-2) GRAN MAT x10^3(ANC) 5.71 10*3/uL 1.88-7.09 (test code = 7268279636) IMM GRAN x10^3 (test 0.03 10*3/uL 0-0.06 code = 9264534968) LYMPH x10^3 (test code 2.79 10*3/uL 1.32-3.29 = 731-0) MONO x10^3 (test code 0.93 10*3/uL 0.33-0.92 H = 742-7) EOS x10^3 (test code = 0.26 10*3/uL 0.03-0.39 711-2) BASO x10^3 (test code 0.07 10*3/uL 0.01-0.07 = 704-7) Lab Interpretation Abnormal (test code = 05259-8) [facility]
[2023-01-03 12:01] LABS: Potassium 3.8 mEq/L (3.5-5.1)
[2023-01-03] MEDS ORDERED: NA CHLORIDE 0.9% 1,000 ML ONE (12:06)
[2023-01-03] MEDS ORDERED: DIVALPROEX DR 250 MG TAB PO ONE (13:25)
--- NOTE | 2023-01-03 13:57 | EDPHYS ---
Physician Documentation [facility] Name: Christina Isidro Age: 67 yrs Sex: Female : 1955 Arrival Date: 01/03/2023 Time: 11:31 Bed 7 Private MD: ED Physician Kirk Zambrano HPI: 01/03 11:36 This 67 yrs old Female presents to ER via Unassigned with complaints of seizure. rn 11:36 The patient presents with a history of multiple seizures. Seizure onset: 6 days ago. rn Associated injury: The patient did not suffer any apparent associated injury. Current symptoms: decreased level of consciousness. The patient has experienced similar episodes in the past. The patient has been recently seen at the [facility] Emergency Department. Pt seen here yesterday, discharged with neg workup, returns today with another seizure, given 5mg versed IM by EMS. . Historical: - Allergies: 11:42 Lorazepam; ko1 - Home Meds: 11:42 citalopram 40 mg tab every day at bedtime [Active]; clonidine HCl 0.1 mg Oral tab 2 ko1 times per day [Active]; gabapentin 600 mg Oral tab 3 times per day [Active]; eliquis [Active]; Hydroxyzine Oral [Active]; Keppra 500 mg oral tablet 2 times per day [Active]; lamotrigine 200 mg Oral tab every 12 hours [Active]; rosuvastatin 5 mg Oral Capsule, Sprinkle daily [Active]; ropinirole oral [Active]; - PMHx: 11:42 CAD; Diabetes - IDDM; DVT; pulmonary embolus; Seizure; ko1 - Immunization history:: Adult Immunizations unknown. - Social history:: Smoking status: unknown. - Family history:: not pertinent. - Hospitalizations: : No recent hospitalization is reported. ROS: 11:36 Constitutional: Negative for fever, chills, and weight loss, Cardiovascular: Negative rn for chest pain, palpitations, and edema, Respiratory: Negative for shortness of breath, cough, wheezing, and pleuritic chest pain, Abdomen/GI: Negative for abdominal pain, nausea, vomiting, diarrhea, and constipation, MS/Extremity: Negative for injury and deformity, Skin: Negative for injury, rash, and discoloration, Neuro: Negative for weakness, numbness, tingling Exam: 11:36 Constitutional: This is a well developed, well nourished patient who is somnolent, rn easily awakens to voice Head/Face: Normocephalic, atraumatic. Eyes: Periorbital areas with no swelling, redness, or edema. ENT: dry MM Cardiovascular: Regular rate and rhythm. No pulse deficits. Respiratory: No increased work of breathing, no retractions or nasal flaring. Abdomen/GI: soft, non-tender Skin: Warm, dry MS/ Extremity: Pulses equal, no cyanosis. Neuro: Somnolent s/p versed, awakens to voice, moves all 4 extremities, no seizure activity noted at this time. 13:54 ECG was reviewed by the Attending Physician. rn Vital Signs: 11:36 BP 99 / 70; Pulse 63; Resp 16; Pulse Ox 97% on R/A; ko1 11:39 BP 112 / 73; Pulse 71; Resp 16; Temp 99(O); Pulse Ox 95% on R/A; ko1 13:48 BP 107 / 65; Pulse 63; Resp 18; Pulse Ox 99% ; ko1 15:45 BP 109 / 68; Pulse 68; Resp 18; Pulse Ox 99% ; ko1 MDM: 11:33 Patient medically screened. rn 13:55 Differential diagnosis: seizure. Data reviewed: vital signs, nurses notes, lab test rn result(s), EKG, radiologic studies, CT scan, and as a result, I will admit patient. Consideration of Admission/Observation Patient was admitted/placed on observation. Escalation of care including admission/observation considered. Counseling: I had a detailed discussion with the patient and/or guardian regarding: the historical points, exam findings, and any diagnostic results supporting the discharge/admit diagnosis, lab results, radiology results, the need for further work-up and treatment in the hospital, the need to transfer to another facility. ED course: Pt still with some intermittent tremors and stuttering speech, no acute findings yesterday, but back today, consulted with Dr. Love, is out of town and not available to consult, but recommends transfer for EEG and further care given now several seizures each day for 6 days. No neuro here so will transfer. . 01/03 11:34 Order name: CBC with Diff; Complete Time: 12:20 rn 01/03 11:34 Order name: Basic Metabolic Panel; Complete Time: 12:20 rn 01/03 12:04 Order name: Glucose, Ancillary Testing; Complete Time: 12:20 EDMS 01/03 11:34 Order name: EKG; Complete Time: 11:34 rn 01/03 11:34 Order name: IV Start; Complete Time: 11:43 rn 01/03 11:34 Order name: EKG - Nurse/Tech; Complete Time: 11:53 rn 01/03 11:34 Order name: Cardiac monitoring; Complete Time: 11:43 rn 01/03 11:34 Order name: O2 Sat Monitoring; Complete Time: 11:43 rn 01/03 11:34 Order name: Glucose Level; Complete Time: 11:52 rn EC:54 Rate is 69 beats/min. Rhythm is regular. QRS [place] is Normal. AL interval is normal. QRS rn interval is normal. QT interval is normal. No Q waves. T waves are Normal. No ST changes noted. Clinical impression: Normal ECG. Interpreted by me. Reviewed by me. Administered Medications: 11:58 Drug: NS 0.9% IV 1000 ml Route: IV; Rate: 1000 ml; Site: right antecubital; dd1 13:16 Drug: Valproic Acid PO 500 mg Route: PO; ko1 Disposition Summary: 01/03/23 13:57 Transfer Ordered Transfer Location: [facility] rn Reason: Higher level of care rn Condition: Stable rn Problem: an ongoing problem rn Symptoms: have improved rn Accepting Physician: (01/03/23 16:04) eliud Diagnosis - Epileptic seizures related to external causes, not intractable, without status rn epilepticus Forms: - Medication Reconciliation Form rn - SBAR form rn Signatures: Dispatcher [employer] Kirk Kurtz MD MD rn Oliver, Kathy RN RN ko1 Claudio Miller RN RN dd1 Corrections: (The following items were deleted from the chart) 16:04 13:57 rn [email or web address]
--- NOTE | 2023-01-03 13:57 | ER ---
Nurse's Notes [facility] Name: Christina Isidro Age: 67 yrs Sex: Female : 1955 Arrival Date: 01/03/2023 Time: 11:31 Bed 7 Private MD: Diagnosis: Epileptic seizures related to external causes, not intractable, without status epilepticus Presentation: 01/03 11:39 Chief complaint: EMS states: patient was here yesterday and discharged. She had a ko1 seizure this morning at home. Coronavirus screen: At this time, the client does not indicate any symptoms associated with coronavirus-19. Ebola Screen: No symptoms or risks identified at this time. Initial Sepsis Screen: Does the patient meet any 2 criteria? No. Patient's initial sepsis screen is negative. Does the patient have a suspected source of infection? No. Patient's initial sepsis screen is negative. Risk Assessment: Do you want to hurt yourself or someone else? Patient reports no desire to harm self or others. Onset of symptoms was January 03, 2023. Care prior to arrival: Medication(s) given: Versed 5mg IM at 1113. Activity prior to arrival: seizure. 11:39 Method Of Arrival: EMS: [facility] ko1 11:39 Acuity: AARON 3 ko1 Triage Assessment: 11:42 General: Appears in no apparent distress. Behavior is sedated. Pain: Unable to use pain ko1 scale. sedated. Historical: - Allergies: 11:42 Lorazepam; ko1 - Home Meds: 11:42 citalopram 40 mg tab every day at bedtime [Active]; clonidine HCl 0.1 mg Oral tab 2 ko1 times per day [Active]; gabapentin 600 mg Oral tab 3 times per day [Active]; eliquis [Active]; Hydroxyzine Oral [Active]; Keppra 500 mg oral tablet 2 times per day [Active]; lamotrigine 200 mg Oral tab every 12 hours [Active]; rosuvastatin 5 mg Oral Capsule, Sprinkle daily [Active]; ropinirole oral [Active]; - PMHx: 11:42 CAD; Diabetes - IDDM; DVT; pulmonary embolus; Seizure; ko1 - Immunization history:: Adult Immunizations unknown. - Social history:: Smoking status: unknown. - Family history:: not pertinent. - Hospitalizations: : No recent hospitalization is reported. Screenin:36 [facility] ED Fall Risk Assessment (Adult) History of falling in the last 3 months, ko1 including since admission No falls in past 3 months (0 pts) Confusion or Disorientation No (0 pts) Intoxicated or Sedated Yes (3 pts) Impaired Gait No (0 pts) Mobility Assist Device Used No (0 pt) Altered Elimination No (0 pt) Score/Fall Risk Level 3 or more points = High Risk Oriented to surroundings, Maintained a safe environment, Educated pt \T\ family on fall prevention, incl call for assistance when getting out of bed, Assessed \T\ reinforced patient's understanding of fall precautions, Provided non-skid footwear, Hourly rounding (assess needs \T\ fall precautionary measures) done, Used ambulatory aids as needed (educated on \T\ assisted with), Used gait belt as appropriate Implemented a Fall Risk Plan of Care. Abuse screen: Denies threats or abuse. Denies injuries from another. Nutritional screening: No deficits noted. Tuberculosis screening: No symptoms or risk factors identified. Assessment: 11:36 Neuro: Level of Consciousness is sedated. Cardiovascular: No deficits noted. ko1 Respiratory: No deficits noted. GI: No deficits noted. : No deficits noted. EENT: No deficits noted. Derm: No deficits noted. Musculoskeletal: No deficits noted. 13:30 Reassessment: Patient appears in no apparent distress at this time. Patient is alert, bp oriented x 3, equal unlabored respirations, skin warm/dry/pink. 15:30 Reassessment: REPORT TO [facility] FOR TRANSFER. bp 16:03 Reassessment: PT TYRONE WITH EMS. bp Vital Signs: 11:36 BP 99 / 70; Pulse 63; Resp 16; Pulse Ox 97% on R/A; ko1 11:39 BP 112 / 73; Pulse 71; Resp 16; Temp 99(O); Pulse Ox 95% on R/A; ko1 13:48 BP 107 / 65; Pulse 63; Resp 18; Pulse Ox 99% ; ko1 15:45 BP 109 / 68; Pulse 68; Resp 18; Pulse Ox 99% ; ko1 ED Course: 11:33 Patient arrived in ED. rn 11:33 Kirk Zambrano MD is Attending Physician. rn 11:36 Patient has correct armband on for positive identification. Bed in low position. Call ko1 light in reach. Side rails up X 1. Provided Education on: NA. Client placed on continuous cardiac and pulse oximetry monitoring. NIBP monitoring applied. monitoring tech on. Door closed. Noise minimized. Warm blanket given. 11:42 Triage completed. ko1 11:42 Arm band placed on right wrist. Patient placed in an exam room, on a stretcher, on ko1 groundwater monitoring technician, on pulse oximetry, Patient notified of wait time. 11:43 Basic Metabolic Panel Sent. dd1 11:43 CBC with Diff Sent. dd1 11:44 Inserted saline lock: 20 gauge in right antecubital area, using aseptic technique. dd1 11:54 Basic Metabolic Panel Sent. dd1 11:58 Alana Langley, RN is Primary Nurse. ko1 15:45 No provider procedures requiring assistance completed. Patient transferred, IV remains ko1 in place. Administered Medications: 11:58 Drug: NS 0.9% IV 1000 ml Route: IV; Rate: 1000 ml; Site: right antecubital; dd1 13:16 Drug: Valproic Acid PO 500 mg Route: PO; ko1 Medication: 15:45 VIS not applicable for this client. ko1 Outcome: 13:57 ER care complete, transfer ordered by . rn 15:45 Transferred by private ambulance [facility]. [place] [facility] [place] Transfer form completed. X-rays sent w/ patient. 15:45 Condition: stable 15:45 Discharge instructions given to EMS, Instructed on the need for transfer, Demonstrated understanding of 16:04 Patient left the ED. ko1 Signatures: Kirk Zambrano MD MD rn Peltier, Brian, RN RN bp Alana Langley, RN RN ko1 Claudio Miller, RN RN dd1
[2023-01-03 16:43] VITALS: TEMP 99
[2023-01-03 16:48] VITALS: O2SAT 99
[2023-01-03 16:49] VITALS: BP 109/68
--- NOTE | 2023-01-07 13:18 | EKG ---
Test Date: 2023-01-03 Test Time: 11:52:39 Multi Slide Machine Tender: ELSIE MEASUREMENT RESULTS: Intervals: Rate: 69 CT: 170 QRSD: 84 QT: 410 QTc: 439 Luther: P: 42 CT: 170 QRS: -9 T: 36 INTERPRETIVE STATEMENTS: Normal sinus rhythm Normal ECG Compared to ECG 01/02/2023 17:21:49 No significant changes Electronically Signed On 01-07-23 13:11:26 CDT by Paolo Pearson
== END 2023-01-03 16:04 | disposition short-term general hospital (02) ==
LOC: ER 11:31
DX: G40.509 Epileptic seizures related to external causes, not intractable, without status epilepticus (principal); E11.9 Type 2 diabetes mellitus without complications; Z86.718 Personal history of other venous thrombosis and embolism; Z79.01 Long term (current) use of anticoagulants; Z88.8 Allergy status to other drugs, medicaments and biological substances
CPT/HCPCS: 93005; 85025; 80048; 36415; 82947; 99285; J7030

== ENCOUNTER 2024-03-13 21:56 | Emergency (ER) | payer OTHER ==
[2024-03-13 23:17] LABS: PT Prothrombin Time 11.3 SECONDS (9.4-12.5); Protime INR 1.01
[2024-03-13 23:19] LABS: Absolute Basophils 0.1 K/uL (0-0.5); Absolute Eosinophils 0.1 K/uL (0-0.5); Absolute Lymphocytes (CBC) 2.2 K/uL (0.7-4.9); Absolute Monocytes 0.9 K/uL (0.1-1.3); Absolute Neutrophil 6.1 K/uL (1.8-8.0); Basophils % 0.8 % (0-1.3); Eosinophils % 1.2 % (0-4.4); Hemoglobin 12.6 g/dL (12.0-15.0); Lymphocytes % 23.4 % (15.3-44.8); MCH 29.1 pg (27.0-35.0); MCHC 34.1 g/dL (32.0-36.0); MCV 85.1 fL (80-100); MPV 8.3 fL (7.6-11.3); Monocytes % 9.9 % (3.3-12.3); Neutrophils % 64.7 % (41.7-73.7); Nucleated Red Blood Cells % 0.1 % (0-0); Platelets 249 thou/uL (152-406); RBC Red Blood Cell Count 4.35 M/uL (3.86-4.86); Red Cell Distribution Width 13.8 % (12.1-15.2)
[2024-03-13 23:24] LABS: Anion Gap 8.6 mEq/L (5.0-15.0); Potassium 3.6 mEq/L (3.5-5.1)
--- NOTE | 2024-03-14 00:01 | RAD REPORT ---
EXAM DESCRIPTION: Extremity Venous Uni Ltd RadLex: US EXTREMITY VEINS UNILATERAL CLINICAL HISTORY: 68 years Female; Right leg pain TECHNIQUE: Spectral analysis and color/grayscale sonographic images of the right leg were obtained utilizing a h igh-frequency linear array transducer supplemented with color Doppler, compression and augmentation techniques. COMPARISON: None. FINDINGS: Common femoral: normal Greater saphenous: normal Superficial femoral: normal Popliteal: normal Calf Veins: normal IMPRESSION: No sonographic evidence for right lower extremity deep venous thrombosis. Electronically signed by: Serge Mccann MD 03/13/2024 11:55 PM CDT RP Z9 Due to temporary technical issues with the PACS/Whereibe reporting system, reports are being sign ed by the in-house radiologist without review as a courtesy to ensure prompt reporting the interpreting rad iologist is fully responsible for the content of the report. Transcribed Date/Time: 03/14/2024 12:01 AM
--- NOTE | 2024-03-14 01:17 | ER ---
Nurse's Notes [facility] Name: Christina Isidro Age: 68 yrs Sex: Female : 1955 Arrival Date: 03/13/2024 Time: 21:56 Bed DX2 Private MD: Eliud Cage Diagnosis: Pain in right lower leg;Lapse in Anticoagulation Presentation: 03/13 22:12 Chief complaint: Patient states: I HAVE A HISTORY OF DVT AND I FEEL LIKE I HAVE ONE ON ha1 MY RIGHT LEG. 22:12 Coronavirus screen: Vaccine status: Patient reports receiving the 2nd dose of the covid ha1 vaccine. MODERNA. Ebola Screen: No symptoms or risks identified at this time. Initial Sepsis Screen: Does the patient meet any 2 criteria? No. Patient's initial sepsis screen is negative. Does the patient have a suspected source of infection? No. Patient's initial sepsis screen is negative. Risk Assessment: Do you want to hurt yourself or someone else? Patient reports no desire to harm self or others. Onset of symptoms was March 13, 2024. 22:12 Method Of Arrival: Ambulatory ha1 22:12 Acuity: AARON 3 ha1 Triage Assessment: 22:12 General: Appears uncomfortable, Behavior is calm, cooperative. Pain: Complains of pain ha1 in right calf Pain does not radiate. Pain currently is 5 out of 10 on a pain scale. Quality of pain is described as aching, pressure, Pain began suddenly. Neuro: Level of Consciousness is awake, alert, obeys commands, Oriented to person, place, time, situation. Cardiovascular: Capillary refill < 3 seconds Patient's skin is warm and dry. Respiratory: Airway is patent Respiratory effort is even, unlabored, Respiratory pattern is regular, symmetrical. GI: No signs and/or symptoms were reported involving the gastrointestinal system. Abdomen is round non-distended. : No signs and/or symptoms were reported regarding the genitourinary system. Musculoskeletal: Circulation, motion, and sensation intact. Range of motion: intact in all extremities, Reports. Historical: - Allergies: 22:26 Lorazepam; ha1 - Home Meds: 22:26 citalopram 40 mg tab every day at bedtime [Active]; clonidine HCl 0.1 mg Oral tab 2 ha1 times per day [Active]; eliquis [Active]; gabapentin 600 mg Oral tab 3 times per day [Active]; Hydroxyzine Oral [Active]; Keppra 500 mg Oral tablet 2 times per day [Active]; lamotrigine 200 mg Oral tab every 12 hours [Active]; ropinirole oral [Active]; rosuvastatin 5 mg Oral Capsule daily [Active]; - PMHx: 22:26 CAD; Diabetes - IDDM; DVT; pulmonary embolus; Seizure; ha1 - Immunization history:: Adult Immunizations up to date. - Infectious Disease History:: Denies. - Social history:: Smoking status: Patient denies any tobacco usage or history of. - Family history:: not pertinent. Screenin:31 [facility] ED Fall Risk Assessment (Adult) History of falling in the last 3 months, ha1 including since admission No falls in past 3 months (0 pts) Confusion or Disorientation No (0 pts) Intoxicated or Sedated No (0 pts) Impaired Gait No (0 pts) Mobility Assist Device Used No (0 pt) Altered Elimination No (0 pt) Score/Fall Risk Level 0 - 2 = Low Risk Oriented to surroundings, Maintained a safe environment, Educated pt \T\ family on fall prevention, incl call for assistance when getting out of bed, Assessed \T\ reinforced patient's understanding of fall precautions, Hourly rounding (assess needs \T\ fall precautionary measures) done. Abuse screen: Denies threats or abuse. Denies injuries from another. Nutritional screening: No deficits noted. Tuberculosis screening: No symptoms or risk factors identified. Assessment: 00:20 Reassessment: Patient and/or family updated on plan of care and expected duration. Pain ha1 level reassessed. Patient is alert, oriented x 3, equal unlabored respirations, skin warm/dry/pink. 22:12 Reassessment: see triage assessment. ha1 23:15 Reassessment: Patient and/or family updated on plan of care and expected duration. Pain ha1 level reassessed. Patient is alert, oriented x 3, equal unlabored respirations, skin warm/dry/pink. 03/14 01:10 Reassessment: Patient and/or family updated on plan of care and expected duration. Pain ha1 level reassessed. Patient is alert, oriented x 3, equal unlabored respirations, skin warm/dry/pink. Vital Signs: 03/13 22:12 BP 146 / 65; Pulse 69; Resp 16 S; Temp 98.1(T); Pulse Ox 100% on R/A; Weight 72.57 kg; ha1 Height 5 ft. 6 in. ; 03/14 01:32 BP 117 / 56; Pulse 62; Resp 16; Pulse Ox 100% on R/A; jb4 03/13 22:12 Body Mass Index 25.82 (72.57 kg, 167.64 cm) ha1 ED Course: 03/13 21:58 Patient arrived in ED. am2 21:58 Eliud Cage MD is Private Physician. am2 22:12 Patient has correct armband on for positive identification. Bed in low position. Call ha1 light in reach. Side rails up X 1. 22:12 Arm band placed on right wrist. ha1 22:22 No provider procedures requiring assistance completed. Inserted saline lock: 22 gauge ha1 in right forearm, using aseptic technique. Blood collected. Flushed with 10 mL NS. 22:23 Juju Funez, MARIANNE is Primary Nurse. ha1 22:26 Triage completed. ha1 22:28 Nathaniel Jama MD is Attending Physician. sp4 23:41 Extremity Venous Uni Ltd US In Process Unspecified. EDMS 03/14 01:15 Eliud Cage MD is Referral Physician. sp4 01:32 Provided Education on: follow up with PCP and medication administration . ha1 01:32 IV discontinued, intact, bleeding controlled, No redness/swelling at site. Pressure jb4 dressing applied. 01:32 IV discontinued, intact, bleeding controlled, No redness/swelling at site. Pressure ha1 dressing applied. Administered Medications: No medications were administered Medication: 01:31 VIS not applicable for this client. ha1 Outcome: 01:16 Discharge ordered by . sp4 01:31 Discharged to home ambulatory, with family, ha1 01:31 Condition: stable 01:31 Discharge instructions given to patient, family, Instructed on discharge instructions, follow up and referral plans. medication usage, Demonstrated understanding of instructions, follow-up care, medications, Prescriptions given X 1, 01:32 Patient left the ED. jb4 Signatures: Dispatcher [employer] EDMS Neptali Mena RN RN jb4 Britta Suarez am2 Juju Funez RN RN ha1 Nathaniel Jama MD MD sp4
--- NOTE | 2024-03-14 01:17 | EDPHYS ---
Physician Documentation [facility] Name: Christina Isidro Age: 68 yrs Sex: Female : 1955 Arrival Date: 03/13/2024 Time: 21:56 Bed DX2 Private MD: Eliud Cage ED Physician Nathaniel Jama HPI: 03/13 22:28 This 68 yrs old Female presents to ER via Ambulatory with complaints of Leg sp4 Pain, Leg Swelling. 03/14 06:33 15-year-old female presents with complaint of right lower extremity pain and swelling. sp4 Patient is concerned about blood clot , she has been off of her Eliquis for the past 2 weeks. Historical: - Allergies: 03/13 22:26 Lorazepam; ha1 - Home Meds: 22:26 citalopram 40 mg tab every day at bedtime [Active]; clonidine HCl 0.1 mg Oral tab 2 ha1 times per day [Active]; eliquis [Active]; gabapentin 600 mg Oral tab 3 times per day [Active]; Hydroxyzine Oral [Active]; Keppra 500 mg Oral tablet 2 times per day [Active]; lamotrigine 200 mg Oral tab every 12 hours [Active]; ropinirole oral [Active]; rosuvastatin 5 mg Oral Capsule daily [Active]; - PMHx: 22:26 CAD; Diabetes - IDDM; DVT; pulmonary embolus; Seizure; ha1 - Immunization history:: Adult Immunizations up to date. - Infectious Disease History:: Denies. - Social history:: Smoking status: Patient denies any tobacco usage or history of. - Family history:: not pertinent. ROS: 03/14 06:33 Constitutional: Negative for fever, chills, and weight loss, sp4 Constitutional: Negative for fever, chills, and weight loss, positive for right lower extremity pain and swelling All other systems are negative, Exam: 06:33 Constitutional: This is a well developed, well nourished patient who is awake, alert, sp4 and in no acute distress. Head/Face: Normocephalic, atraumatic. Eyes: Pupils equal round and reactive to light, extra-ocular motions intact. Lids and lashes normal. Conjunctiva and sclera are not injected. Cornea within normal limits. Periorbital areas with no swelling, redness, or edema. ENT: Nares patent. No nasal discharge, no septal abnormalities noted. Tympanic membranes are normal and external auditory canals are clear. Oropharynx with no redness, swelling, or masses, exudates, or evidence of obstruction, uvula midline. Mucous membranes moist. Neck: Trachea midline, no thyromegaly or masses palpated, and no cervical lymphadenopathy. Supple, full range of motion without nuchal rigidity, or vertebral point tenderness. Chest/axilla: Normal chest wall appearance and motion. Nontender with no deformity. No lesions are appreciated. Cardiovascular: Regular rate and rhythm with a normal S1 and S2. No gallops, murmurs, or rubs. Normal PMI, no JVD. No pulse deficits. Respiratory: Lungs have equal breath sounds bilaterally, clear to auscultation and percussion. No rales, rhonchi or wheezes noted. No increased work of breathing, no retractions or nasal flaring. Abdomen/GI: Soft, with normal bowel sounds. No distension or tympany. No guarding or rebound. No evidence of tenderness throughout. Back: No spinal tenderness. No costovertebral tenderness. Skin: Warm, dry with normal turgor. Normal color with no rashes, no lesions, and no evidence of cellulitis. MS/ Extremity: Pulses equal, no cyanosis. Neurovascular intact. Full, normal range of motion. Neuro: Awake and alert, GCS 15, oriented to person, place, time, and situation. Cranial nerves II-XII grossly intact. Motor strength 5/5 in all extremities. Sensory grossly intact. Psych: Awake, alert, with orientation to person, place and time. Behavior, mood, and affect are within normal limits Vital Signs: 03/13 22:12 BP 146 / 65; Pulse 69; Resp 16 S; Temp 98.1(T); Pulse Ox 100% on R/A; Weight 72.57 kg; ha1 Height 5 ft. 6 in. ; 03/14 01:32 BP 117 / 56; Pulse 62; Resp 16; Pulse Ox 100% on R/A; jb4 03/13 22:12 Body Mass Index 25.82 (72.57 kg, 167.64 cm) [facility] MDM: 03/13 22:29 Patient medically screened. sp4 03/14 06:34 Differential diagnosis: dislocation, open fracture, closed fracture, contusion, sp4 abrasion, tendonitis. Data reviewed: vital signs, nurses notes, lab test result(s), radiologic studies, ultrasound. 06:35 Consideration of Admission/Observation Escalation of care including sp4 admission/observation considered. ED course: EXAM DESCRIPTION: Extremity Venous Uni Ltd RadLex: US EXTREMITYVEINS UNILATERAL CLINICAL HISTORY: 68 years Female; Right leg pain TECHNIQUE: Spectral analysis and color/grayscale sonographic images of the right leg were obtained utilizing a high-frequency linear array transducer supplemented with color Doppler, compression and augmentation techniques. COMPARISON: None. FINDINGS: Common femoral: normal Greater saphenous: normal Superficial femoral: normal Popliteal: normal Calf Veins: normal IMPRESSION: No sonographic evidence for right lower extremity deep venous thrombosis. . 03/13 22:28 Order name: Basic Metabolic Panel; Complete Time: 01:12 sp4 03/13 22:28 Order name: CBC with Diff; Complete Time: 01:12 sp4 03/13 22:28 Order name: PT-INR; Complete Time: 01:12 sp4 03/13 22:29 Order name: Extremity Venous Uni Ltd sp4 03/13 22:28 Order name: IV Saline Lock; Complete Time: 00:03 sp4 03/13 22:28 Order name: Labs collected and sent; Complete Time: 00:03 sp4 Administered Medications: No medications were administered Disposition Summary: 03/14/24 01:16 Discharge Ordered Notes: Location: Home sp4 Problem: new sp4 Symptoms: have improved sp4 Condition: Stable sp4 Diagnosis - Pain in right lower leg sp4 - Lapse in Anticoagulation sp4 Followup: sp4 - With: Eliud Cage MD - When: 7 - 10 days - Reason: Recheck today's complaints Discharge Instructions: - Discharge Summary Sheet sp4 - Pain Without a Known Cause sp4 Forms: - Patient Portal Instructions sp4 Prescriptions: - Eliquis 5 mg Oral tablet - take 1 tablet ORAL route every 12 hours; 60 tablet; Refills: 0, Product sp4 Selection Permitted Signatures: Dispatcher [employer] Juju Che RN RN ha1 Nathaniel Jama MD MD sp4
[2024-03-14 06:12] VITALS: TEMP 98.1; O2SAT 100
[2024-03-14 06:15] VITALS: BP 117/56
== END 2024-03-14 01:32 | disposition home or self-care (01) ==
LOC: ER 21:56
DX: M79.661 Pain in right lower leg (principal); Z79.01 Long term (current) use of anticoagulants; Z86.718 Personal history of other venous thrombosis and embolism; Z86.711 Personal history of pulmonary embolism
CPT/HCPCS: 36415; 80048; 85025; 85610; 93971; 99284

== ENCOUNTER 2024-04-29 13:11 | Emergency (ER) | payer MEDICARE, OTHER ==
[2024-04-29 13:40] LABS: Absolute Eosinophils 0.1 K/uL (0-0.5); Absolute Lymphocytes (CBC) 1.7 K/uL (0.7-4.9); Absolute Monocytes 0.5 K/uL (0.1-1.3); Absolute Neutrophil 5.1 K/uL (1.8-8.0); Basophils % 0.6 % (0-1.3); Eosinophils % 0.9 % (0-4.4); Hematocrit 34.8 % (36.0-45.0); Hemoglobin 11.4 g/dL (12.0-15.0); Lymphocytes % 22.8 % (15.3-44.8); MCH 28.4 pg (27.0-35.0); MCHC 32.7 g/dL (32.0-36.0); MCV 86.9 fL (80-100); MPV 8.5 fL (7.6-11.3); Monocytes % 7.3 % (3.3-12.3); Neutrophils % 68.4 % (41.7-73.7); Platelets 171 thou/uL (152-406); RBC Red Blood Cell Count 4.01 M/uL (3.86-4.86); Red Cell Distribution Width 13.6 % (12.1-15.2)
[2024-04-29 13:57] LABS: Albumin 3.5 g/dL (3.4-5.0); Albumin/Globulin Ratio 1.2 (1.1-1.8); Anion Gap 10.4 mEq/L (5.0-15.0); Bilirubin Total 0.4 mg/dL (0.2-1.0); Globulin 2.9 g/dL (2.3-3.5); Potassium 3.4 mEq/L (3.5-5.1); Protein, Total 6.4 g/dL (6.4-8.2)
--- NOTE | 2024-04-29 14:42 | RAD REPORT ---
EXAMINATION: CT ABDOMEN AND PELVIS WITH CONTRAST CLINICAL INDICATION: Abdominal pain TECHNIQUE: CT abdomen and pelvis was performed, after the administration of 100 cc Isovue-300.. Sagit lucía and coronal reconstructions were obtained. One or more of the following dose reduction techniques were used: Automated exposure control, adjustment of the mA and kV according to patient si ze, and iterative reconstruction. Unless otherwise specified, incidental findings do not require dedicated imaging follow-up. [id number]. Oral contrast was not given which limits evaluation of bowel and appendix. COMPARISON: .2017 FINDINGS: 4.2 cm hepatic cyst is decreased in size. It contains peripheral dictation. 1.9 cm intermediate density mass extends off the left lobe liver. This is peripherally calcified. It is unchanged in size and is benign.: Several smaller hepatic cysts are present. Hypertrophied caudate lobe. Prominence portal vein. It appears that most of the right lobe of the liver has been resected. Mild hepatic fibrosis suspecte d. Pancreas and spleen unremarkable. The adrenal glands unremarkable Parapelvic renal cysts. Calcified uterine fibroid. Moderate amount of stool present throughout the colon. No evidence of diverticulitis. Cholecystectomy. IMPRESSION: Moderate amount of stool throughout the colon.
[2024-04-29 15:36] LABS: Specific Gravity > 1.030 (1.005-1.030); Sqamous Epithelial <5 /HPF (None Seen); Urine Bacteria None Seen /HPF (<20); Urine Bilirubin NEGATIVE (Negative); Urine Blood Negative (Negative); Urine Clarity Clear (Clear); Urine Color Light-Yellow (Yellow); Urine Culture Reflex Order NOT NEEDED; Urine Glucose NEGATIVE (Negative); Urine Ketones 1+ (Negative); Urine Microscopic Reflex YN ORDER UMIC; Urine Mucus Slight /HPF (None Seen); Urine Nitrite NEGATIVE (Negative); Urine Protein NEGATIVE (Negative); Urine RBC <5 /HPF (None Seen); Urine Urobilinogen Normal (Normal); Urine WBC <5 /HPF (<5); Urine pH 5.5 (5.0-7.0)
--- NOTE | 2024-04-29 16:48 | ER ---
Nurse's Notes [facility] Name: Christina Isidro Age: 68 yrs Sex: Female : 1955 Arrival Date: 04/29/2024 Time: 13:11 Bed 20 Private MD: Diagnosis: Nausea with vomiting, unspecified Presentation: 04/29 13:13 Chief complaint: EMS states: NAUSEA/VOMITING xTODAY. Coronavirus screen: At this time, bp the client does not indicate any symptoms associated with coronavirus-19. Ebola Screen: No symptoms or risks identified at this time. Initial Sepsis Screen: Does the patient meet any 2 criteria? No. Patient's initial sepsis screen is negative. Does the patient have a suspected source of infection? No. Patient's initial sepsis screen is negative. Risk Assessment: Do you want to hurt yourself or someone else? Patient reports no desire to harm self or others. Onset of symptoms was April 29, 2024. Care prior to arrival: Medication(s) given: Normal saline infusion, 500 mL, zofran 4 mg, DIPHENHYDRAMINE 50MG IVP IV initiated. 20 GA, in the right hand, Glucose check: 122. 13:13 Method Of Arrival: EMS: [facility] bp 13:13 Acuity: AARON 3 bp Triage Assessment: 13:15 General: Appears in no apparent distress. Behavior is cooperative, appropriate for age, bp drowsy. Pain: Denies pain. EENT: No deficits noted. Neuro: Level of Consciousness is awake, obeys commands, lethargic, Oriented to Appropriate for age. Cardiovascular: No deficits noted. Respiratory: No deficits noted. GI: Reports nausea, vomiting. : No signs and/or symptoms were reported regarding the genitourinary system. Derm: No deficits noted. Musculoskeletal: No deficits noted. Historical: - Allergies: 13:15 Lorazepam; bp - PMHx: 13:15 CAD; pulmonary embolus; DVT; Seizure; Diabetes - IDDM; bp - Immunization history:: Adult Immunizations up to date. - Infectious Disease History:: Denies. - Social history:: Smoking status: unknown. Vital Signs: 13:13 BP 144 / 93; Pulse 75; Resp 16; Temp 98; Pulse Ox 95% ; bp ED Course: 13:13 Patient arrived in ED. bp 13:13 Taylor Esparza FNP-C is [facility]. kb 13:13 Jesus Elizabeth MD is Attending Physician. kb 13:14 Triage completed. bp 13:15 Arm band placed on. bp 13:16 Maintain EMS IV. Dressing intact. Good blood return noted. Site clean \T\ dry. Gauge \T\ bp site: 20 R HAND. Flushed with 10 mL NS. 13:18 Jony Copeland, RN is Primary Nurse. bp 13:35 Warm blanket given. am7 14:12 CT Abd/Pelvis - IV Contrast Only In Process Unspecified. EDMS Administered Medications: 13:21 Drug: NS 0.9% IV 1000 ml IV at 1 bolus Per protocol; to be given as a bolus over 60 bp minutes Route: IV; Rate: 1 bolus; Site: right hand; Outcome: 16:47 Discharge ordered by MD. kb 18:06 Patient left the ED. eb Signatures: Dispatcher [employer] EDMS Taylor Esparza FNP-C [employer]-Ckb Jony Copeland, RN RN bp Anuradha Hawley eb Stephanie Kim am7 Corrections: (The following items were deleted from the chart) 13:16 13:16 Maintain EMS IV. Dressing intact. Good blood return noted. Site clean \T\ dry. bp Gauge \T\ site: 20 R HAND. bp
--- NOTE | 2024-04-29 16:48 | EDPHYS ---
Physician Documentation [facility] Name: Christina Isidro Age: 68 yrs Sex: Female : 1955 Arrival Date: 04/29/2024 Time: 13:11 Bed 20 Private MD: ED Physician Jesus Elizabeth HPI: 04/29 13:21 This 68 yrs old Female presents to ER via EMS with complaints of Nausea/Vomiting. kb 13:21 Pt is a 68 year old female who presents for nausea and vomiting that started 2 hours kb [employer]. EMS states pt had similar symptoms on Saturday, was seen at [facility] and diagnosed with a UTI. Pt states she was prescribed cephalexin and has been taking it as prescribed. EMS gave Benadryl 50mg IV and zofran 4mg IV prior to arrival. Pt drowsy at this time, but oriented x4 and follows commands. . Historical: - Allergies: 13:15 Lorazepam; bp - PMHx: 13:15 CAD; pulmonary embolus; DVT; Seizure; Diabetes - IDDM; bp - Immunization history:: Adult Immunizations up to date. - Infectious Disease History:: Denies. - Social history:: Smoking status: unknown. ROS: 13:20 Constitutional: As per HPI kb Exam: 13:20 Constitutional: This is a well developed, well nourished patient who is awake, alert, kb and in no acute distress. Head/Face: Normocephalic, atraumatic. ENT: Moist Mucous membranes Cardiovascular: Regular rate Respiratory: Respirations even and unlabored. No increased work of breathing. Talking in full sentences Skin: Warm, dry with normal turgor. Normal color. MS/ Extremity: Pulses equal, no cyanosis. Neurovascular intact. Full, normal range of motion. Neuro: Awake and alert, GCS 15, oriented to person, place, time, and situation. 13:20 Abdomen/GI: Inspection: abdomen appears normal, Bowel sounds: normal, Palpation: soft, in all quadrants, mild abdominal tenderness, in the right lower quadrant, Vital Signs: 13:13 BP 144 / 93; Pulse 75; Resp 16; Temp 98; Pulse Ox 95% ; bp MDM: 13:13 Medical Screening Exam initiated kb 13:23 Data reviewed: vital signs, nurses notes. Historians other than the Patient: EMS: [facility]. 14:51 Differential diagnosis: Nonspecific abd pain, viral gastroenteritis, dehydration, uti. kb Counseling: I had a detailed discussion with the patient and/or guardian regarding the historical points, exam findings, and any diagnostic results supporting the discharge/admit diagnosis, lab results, radiology results, the need for outpatient follow up, a family practitioner, to return to the emergency department if symptoms worsen or persist or if there are any questions or concerns that arise at home. 16:46 ED course: Pt is now awake and ready to go home. States she believes that these kb symptoms are caused by the cephalexin. States she has never had that before. Requests bactrim for her UTI instead because that has worked for her in the past and she hasn't had side effects from it. . 04/29 13:20 Order name: CBC with Diff; Complete Time: 13:43 kb 04/29 13:20 Order name: CMP; Complete Time: 14:00 kb 04/29 13:20 Order name: Lipase; Complete Time: 14:00 kb 04/29 13:20 Order name: Urinalysis w/ reflexes; Complete Time: 15:41 kb 04/29 13:20 Order name: CT Abd/Pelvis - IV Contrast Only; Complete Time: 14:45 kb 04/29 13:20 Order name: IV Saline Lock; Complete Time: 13:21 kb 04/29 13:20 Order name: Labs collected and sent; Complete Time: 13:30 kb 04/29 14:45 Order name: PO challenge; Complete Time: 15:06 kb Administered Medications: 13:21 Drug: NS 0.9% IV 1000 ml IV at 1 bolus Per protocol; to be given as a bolus over 60 bp minutes Route: IV; Rate: 1 bolus; Site: right hand; Disposition Summary: 04/29/24 16:47 Discharge Ordered Notes: Location: Home kb Condition: Stable kb Diagnosis - Nausea with vomiting, unspecified kb Followup: kb - With: Emergency Department - When: As needed - Reason: Worsening of condition Followup: kb - With: Private Physician - When: 2 - 3 days - Reason: Recheck today's complaints, Continuance of care, Re-evaluation by your physician Discharge Instructions: - Discharge Summary Sheet kb - Nausea and Vomiting, Adult, [id number] kb Forms: - Medication Reconciliation Form kb - Antibiotic Education kb - Prescription Opioid Use kb - Patient Portal Instructions kb - Leadership Thank You Letter kb Prescriptions: - Zofran 4 mg Oral tablet - take 1 tablet ORAL route every 6 hours As needed; 12 tablet; Refills: 0, kb Product Selection Permitted Signatures: Dispatcher [employer] Taylor Pardo, SAMANTHAC Jony Finn, RN RN bp
[2024-04-29 19:40] VITALS: BP 144/93; TEMP 98; O2SAT 95
== END 2024-04-29 18:06 | disposition home or self-care (01) ==
LOC: ER 13:11
DX: R11.2 Nausea with vomiting, unspecified (principal); R10.31 Right lower quadrant pain
CPT/HCPCS: 85025; 81001; 36415; 83690; 80053; 74177; 99284; Q9967

== ENCOUNTER 2024-05-23 05:59 | Emergency (ER) | payer MEDICARE ==
[2024-05-23] MEDS ORDERED: ONDANSETRON 4 MG/2 ML VIAL ONE (06:26)
[2024-05-23] MEDS ORDERED: FAMOTIDINE 20 MG/2 ML VIAL IV ONE (06:26)
[2024-05-23] MEDS ORDERED: KETOROLAC 30 MG/ML INJ ONE (06:26)
[2024-05-23] MEDS ORDERED: METOCLOPRAMIDE 10 MG/2mL INJ ONE (06:26)
[2024-05-23] MEDS ORDERED: NA CHLORIDE 0.9% 2,000 ML ONE (06:27)
[2024-05-23 06:34] LABS: Absolute Eosinophils 0.1 K/uL (0-0.5); Absolute Lymphocytes (CBC) 1.6 K/uL (0.7-4.9); Absolute Monocytes 0.5 K/uL (0.1-1.3); Absolute Neutrophil 3.3 K/uL (1.8-8.0); Basophils % 0.8 % (0-1.3); Hemoglobin 13.1 g/dL (12.0-15.0); Lymphocytes % 29.6 % (15.3-44.8); MCHC 33.6 g/dL (32.0-36.0); MCV 86.1 fL (80-100); MPV 7.4 fL (7.6-11.3); Monocytes % 8.4 % (3.3-12.3); Neutrophils % 59.2 % (41.7-73.7); Platelets 235 thou/uL (152-406); RBC Red Blood Cell Count 4.53 M/uL (3.86-4.86); Red Cell Distribution Width 14.6 % (12.1-15.2)
[2024-05-23 06:44] LABS: Albumin 3.7 g/dL (3.4-5.0); Albumin/Globulin Ratio 1.2 (1.1-1.8); Bilirubin Total 0.5 mg/dL (0.2-1.0); Globulin 3.1 g/dL (2.3-3.5); Protein, Total 6.8 g/dL (6.4-8.2)
[2024-05-23 06:47] LABS: Troponin High Sensitivity 5.8 pg/mL (<58.9)
[2024-05-23] MEDS ORDERED: NA CHLORIDE 0.9% 100 ML ONE (07:08)
[2024-05-23] MEDS ORDERED: METHOCARBAMOL 1,000 MG/10 ML VIAL ONE (07:08)
[2024-05-23 08:11] LABS: Sqamous Epithelial <5 /HPF (None Seen); Urine Bacteria None Seen /HPF (<20); Urine Bilirubin NEGATIVE (Negative); Urine Blood Negative (Negative); Urine Clarity Extremely Turbid (Clear); Urine Color Yellow (Yellow); Urine Culture Reflex Order NOT NEEDED; Urine Glucose NEGATIVE (Negative); Urine Ketones NEGATIVE (Negative); Urine Microscopic Reflex YN ORDER UMIC; Urine Mucus 3+ /HPF (None Seen); Urine Nitrite NEGATIVE (Negative); Urine Protein 1+ (Negative); Urine RBC <5 /HPF (None Seen); Urine Urobilinogen 1+ (Normal)
[2024-05-23] MEDS ORDERED: ROPINIROLE HCL 1 MG TAB PO ONE (09:00)
[2024-05-23] MEDS ORDERED: DIAZEPAM 10 MG/2 ML INJ SYRINGE ONE (09:52)
[2024-05-23] MEDS ORDERED: CEFTRIAXONE 1000 MG/VIAL ONE (09:52)
[2024-05-23] MEDS ORDERED: NA CHLORIDE 0.9% 50 ML ONE (09:52)
--- NOTE | 2024-05-23 10:25 | RAD REPORT ---
EXAMINATION: CT ABDOMEN AND PELVIS WITH CONTRAST CLINICAL INDICATION: Female, 68 years old.ABD PAIN TECHNIQUE: CT abdomen and pelvis was performed, after the administration of IV contrast, [facility]. Axial, sagittal and coronal reconstructions were obtained. One or more of the following dose reduction techniques were used: Automated exposure control, adjustment of the mA and/o r kV according to patient size, and/or iterative reconstruction. Unless otherwise specified, incidental findings do not require dedicated imaging follow-up. [id number]. COMPARISON: 04/29/2024 FINDINGS: LOWER CHEST: Mild circumferential thickening of distal esophagus could reflect mild esophagitis. LIVER: Several low-density liver lesions are unchanged. Intrahepatic biliary duct dilatation of the r ight hepatic lobe is unchanged. Partial hepatectomy. Partially calcified exophytic structure off of the inferior medial aspect of the left hepatic lobe is unchanged and presumably benign. GALLBLADDER/BILE DUCT: Cholecystectomy.? PANCREAS: Atrophic body and tail. SPLEEN: Normal size. No focal lesion. ADRENALS: Normal; no mass. KIDNEYS AND URETERS: Bilateral renal lesions which are either benign in appearance or too small to ac curately characterize but statistically benign. GASTROINTESTINAL TRACT: Stomach is non-dilated. Small bowel has normal course and caliber. No colonic wall thickening or pericolonic inflammatory changes. Moderate colonic stool. Nonvisualized appendix. PERITONEUM: No ascites. LYMPH NODES: No lymphadenopathy. ABDOMINAL AORTA AND OTHER VESSELS: Aortic atherosclerosis. URINARY BLADDER: Normal contour. REPRODUCTIVE ORGANS: No pathologic process MUSCULOSKELETAL: No acute or suspicious osseous abnormality. ADDITIONAL FINDINGS: None. IMPRESSION: No acute or significant abnormalities seen in the abdomen or pelvis. Moderate colonic stool could ind icate constipation. Chronic incidental findings as noted above.
--- NOTE | 2024-05-23 10:42 | EDPHYS ---
Physician Documentation [facility] Name: Christina Isidro Age: 68 yrs Sex: Female : 1955 Arrival Date: 05/23/2024 Time: 05:59 Bed 5 Private MD: ED Physician Jesus Elizabeth HPI: 05/23 06:17 This 68 yrs old Female presents to ER via EMS with complaints of vomiting . sp4 06:17 Patient is 68-year-old female with history of coronary artery disease diabetes DVT sp4 pulmonary embolism seizure. Patient presents with acute onset of profuse vomiting starting 2 AM today. Patient reports yesterday she ate at the [employer].. . Historical: - Allergies: 06:08 Lorazepam; dd2 - PMHx: 06:08 CAD; Diabetes - IDDM; DVT; pulmonary embolus; Seizure; dd2 - PSHx: 06:08 Cholecystectomy; dd2 - Immunization history:: Adult Immunizations up to date. - Infectious Disease History:: Denies. - Social history:: Smoking status: Patient denies any tobacco usage or history of. - Family history:: not pertinent. ROS: 06:17 Constitutional: Negative for fever, chills, and weight loss, positive profuse nausea sp4 and vomiting 06:17 All other systems are negative, Exam: 06:17 Constitutional: This is a well developed, well nourished patient who is awake, alert, sp4 and in no acute distress. Head/Face: Normocephalic, atraumatic. Eyes: Pupils equal round and reactive to light, extra-ocular motions intact. Lids and lashes normal. Conjunctiva and sclera are not injected. Cornea within normal limits. Periorbital areas with no swelling, redness, or edema. ENT: Nares patent. No nasal discharge, no septal abnormalities noted. Tympanic membranes are normal and external auditory canals are clear. Oropharynx with no redness, swelling, or masses, exudates, or evidence of obstruction, uvula midline. Mucous membranes moist. Neck: Trachea midline, no thyromegaly or masses palpated, and no cervical lymphadenopathy. Supple, full range of motion without nuchal rigidity, or vertebral point tenderness. Chest/axilla: Normal chest wall appearance and motion. Nontender with no deformity. No lesions are appreciated. Cardiovascular: Regular rate and rhythm with a normal S1 and S2. No gallops, murmurs, or rubs. Normal PMI, no JVD. No pulse deficits. Respiratory: Lungs have equal breath sounds bilaterally, clear to auscultation and percussion. No rales, rhonchi or wheezes noted. No increased work of breathing, no retractions or nasal flaring. Abdomen/GI: Soft, with normal bowel sounds. No distension or tympany. No guarding or rebound. No evidence of tenderness throughout. Back: No spinal tenderness. No costovertebral tenderness. Skin: Warm, dry with normal turgor. Normal color with no rashes, no lesions, and no evidence of cellulitis. MS/ Extremity: Pulses equal, no cyanosis. Neurovascular intact. Full, normal range of motion. Neuro: Awake and alert, GCS 15, oriented to person, place, time, and situation. Cranial nerves II-XII grossly intact. Motor strength 5/5 in all extremities. Sensory grossly intact. Psych: Awake, alert, with orientation to person, place and time. Behavior, mood, and affect are within normal limits 07:17 ECG was reviewed by the Attending Physician. EKG at 0 633 normal sinus rhythm rate 71. sp4 Vital Signs: 06:04 BP 102 / 81; Pulse 72; Resp 16; Temp 98.1(O); Pulse Ox 97% on R/A; Weight 74.84 kg (R); dd2 07:21 BP 122 / 93; Pulse 86; Resp 18; Pulse Ox 98% on R/A; ph 10:54 BP 125 / 74; Pulse 83; Resp 18; Pulse Ox 100% on R/A; ph 11:59 BP 117 / 82; Pulse 86; Resp 18; Temp 97.9; Pulse Ox 98% on R/A; ph Matilde Coma Score: 06:10 Eye Response: spontaneous(4). Motor Response: obeys commands(6). Verbal Response: dd2 oriented(5). Total: 15. 06:17 Eye Response: spontaneous(4). Motor Response: obeys commands(6). Verbal Response: sp4 oriented(5). Total: 15. MDM: 06:20 Differential diagnosis: Nonspecific abd pain, gastritis, diverticulitis, viral sp4 gastroenteritis, gastroenteritis. Data reviewed: vital signs, nurses notes, EMS record, old medical records, lab test result(s), EKG, radiologic studies, CT scan. Consideration of Admission/Observation Escalation of care including admission/observation considered. 06:20 Transition of care: After a detail discussion of the patient's case, care is sp4 transferred to Jesus Elizabeth MD. ED course: Patient will get CT for profuse vomiting and abdominal discomfort.. 07:12 Medical Screening Exam initiated [facility] 05/23 06:16 Order name: CBC with Diff; Complete Time: 07:12 sp4 05/23 06:16 Order name: CMP; Complete Time: 07:12 sp4 05/23 06:16 Order name: Lipase; Complete Time: 07:12 sp4 05/23 06:16 Order name: Urinalysis w/ reflexes; Complete Time: 08:56 sp4 05/23 06:20 Order name: Troponin High Sensitivity; Complete Time: 07:12 sp4 05/23 06:20 Order name: BNP; Complete Time: 07:12 sp4 05/23 08:57 Order name: Urine Culture [facility] 05/23 06:16 Order name: CT Abd/Pelvis - IV Contrast Only; Complete Time: 11:32 sp4 05/23 06:16 Order name: IV Saline Lock; Complete Time: 06:41 sp4 05/23 06:16 Order name: Labs collected and sent; Complete Time: 06:41 sp4 05/23 06:20 Order name: EKG - Nurse/Tech; Complete Time: 06:40 sp4 05/23 07:53 Order name: PO challenge; Complete Time: 08:38 [facility] EC:33 Rate is 71 beats/min. Rhythm is regular, Normal Sinus Rhythm. QRS [place] is Normal. [place] sp4 interval is normal. QRS interval is normal. QT interval is normal. No Q waves. T waves are Normal. No ST changes noted. Clinical impression: Normal ECG. Interpreted by me. Reviewed by me. Administered Medications: 07:53 Discontinued: ns 0.9% 1000 ml IV at 250 ml/hr Per protocol; to be given as a bolus over janneth 60 minutes 06:40 Drug: Famotidine IVP 20 mg IVP once; dilute with 10 mL 0.9% NaCl; give over 2 minutes dd2 Route: IVP; Site: right antecubital; 07:00 Follow up: Response: No adverse reaction ph 06:40 Drug: NS 0.9% IV 1000 ml IV at 250 ml/hr Per protocol; to be given as a bolus over 60 dd2 minutes Route: IV; Rate: 250 ml/hr; Site: right antecubital; 12:01 Follow up: Response: No adverse reaction; IV Status: Order to discontinue infusion ph 06:41 Drug: TORadol - Ketorolac IVP 15 mg IVP once Route: IVP; Site: right antecubital; dd2 07:00 Follow up: Response: No adverse reaction ph 06:41 Drug: Ondansetron IVP 8 mg IVP once; over 2 minutes Route: IVP; Site: right antecubital;dd2 07:00 Follow up: Response: No adverse reaction ph 06:41 Drug: NS 0.9% IV 1000 ml IV at 1 bolus Per protocol; to be given as a bolus over 60 dd2 minutes Route: IV; Rate: 1 bolus; Site: right antecubital; 07:45 Follow up: Response: No adverse reaction; IV Status: Completed infusion; IV Intake: ph 1000ml 06:41 Drug: metoCLOPramide IVP 10 mg IVP once; over 1 to 2 minutes Route: IVP; Site: right dd2 antecubital; 07:00 Follow up: Response: No adverse reaction ph 07:20 Drug: Methocarbamol IVPB 1 grams IVPB once over 1 hrs; (mix in NS 100 mL) Route: IVPB; ph Infused Over: 1 hrs; Site: right antecubital; 08:20 Follow up: Response: No adverse reaction; IV Status: Completed infusion ph 08:08 Drug: NS 0.9% IV 1000 ml IV at 1000 ml once; to be given as a bolus over 60 minutes ph Route: IV; Rate: 1000 ml; Site: right antecubital; 09:10 Follow up: Response: No adverse reaction; IV Status: Completed infusion; IV Intake: ph 1000ml 08:23 Drug: Requip PO 2 mg PO once Route: PO; ph 12:01 Follow up: Response: No adverse reaction ph 10:06 Drug: Rocephin IV 1 grams IV at per protocol once; Given slow IV push per pharmacy ph instructions Route: IV; Rate: per protocol; Site: right antecubital; 12:00 Follow up: Response: No adverse reaction; IV Status: Completed infusion ph 10:06 Drug: Diazepam IVP 2 mg IVP once Route: IVP; Site: right antecubital; ph 12:00 Follow up: Response: No adverse reaction; Marked relief of symptoms ph 10:06 Drug: Diazepam IVP 2 mg IVP once Route: IVP; Site: right antecubital; ph 11:59 Follow up: Response: No adverse reaction ph Disposition Summary: 05/23/24 10:42 Discharge Ordered Notes: Location: Home [facility] Problem: new janneth Symptoms: have improved janneth Condition: Stable janneth Diagnosis - Vomiting janneth - Dehydration janneth - Restless legs syndrome janneth - UTI/ Urinary tract infection, site not specified janneth Followup: janneth - With: Private Physician - When: 2 - 3 days - Reason: Recheck today's complaints, Continuance of care, Re-evaluation by your physician Discharge Instructions: - Discharge Summary Sheet janneth - Dehydration, Adult janneth - Nausea and Vomiting, Adult janneth - Urinary Tract Infection, Adult janneth - Nausea and Vomiting, Adult, Loah-lo-Urit janneth - Urinary Tract Infection, Adult, Dpwl-[id number] janneth - Restless Legs Syndrome janneth - Dehydration, Adult, Pesv-[id number] janneth Forms: - Medication Reconciliation Form janneth - Antibiotic Education janneth - Prescription Opioid Use janneth - Patient Portal Instructions [facility] - Leadership Thank You Letter [facility] Prescriptions: - ondansetron 4 mg Oral Tablet,disintegrating - take 1 tablet ORAL route every 6-8 hours for 5 days as needed for nausea and janneth vomiting; 24 tablet; Refills: 0, Product Selection Permitted - cefdinir 300 mg Oral capsule - take 1 capsule ORAL route 2 times per day; 14 capsule; Refills: 0, Product [facility] Selection Permitted Signatures: Dispatcher [employer] EDJesus North MD MD cha Hall, Patricia, RN RN ph Eva Jackman PA-C PA-C sb4 Nathaniel Jama MD MD sp4 WILFRED VALERIO RN RN dd2 Corrections: (The following items were deleted from the chart) 06:16 06:16 Abdomen Pelvis W Con+CT.RAD.BRZ ordered. EDMS EDMS 06:20 06:20 Troponin High Sensitivity+C.LAB.BRZ ordered. EDMS EDMS 06:20 06:20 PROBNP+C.LAB.BRZ ordered. EDMS EDMS
--- NOTE | 2024-05-23 10:42 | ER ---
Nurse's Notes [facility] Name: Christina Isidro Age: 68 yrs Sex: Female : 1955 Arrival Date: 05/23/2024 Time: 05:59 Bed 5 Private MD: Diagnosis: Vomiting;Dehydration;Restless legs syndrome;UTI/ Urinary tract infection, site not specified Presentation: 05/23 06:04 Chief complaint: EMS states: toned out for c/o Nausea and vomiting. Pt reported not dd2 feeing well yesterday after returning from [place] and at 2am began vomiting 4-5 times. Pt c/o RLQ pain with palpation. Coronavirus screen: At this time, the client does not indicate any symptoms associated with coronavirus-19. Ebola Screen: No symptoms or risks identified at this time. Initial Sepsis Screen: Does the patient meet any 2 criteria? No. Patient's initial sepsis screen is negative. Does the patient have a suspected source of infection? No. Patient's initial sepsis screen is negative. Risk Assessment: Do you want to hurt yourself or someone else? Patient reports no desire to harm self or others. Onset of symptoms was May 22, 2024. Care prior to arrival: Medication(s) given: zofran 4 mg, Glucose check: 164. 06:04 Method Of Arrival: EMS: [facility] dd2 06:04 Acuity: AARON 3 dd2 Triage Assessment: 06:08 General: Appears uncomfortable, Behavior is calm, cooperative, appropriate for age. dd2 Pain: Complains of pain in right lower quadrant Pain does not radiate. Pain currently is 0 out of 10 on a pain scale. Aggravated by palpation. EENT: No deficits noted. No signs and/or symptoms were reported regarding the EENT system. Neuro: Level of Consciousness is awake, alert, obeys commands, Oriented to person, place, time, situation. Cardiovascular: No deficits noted. Patient's skin is warm and dry. Respiratory: No deficits noted. Airway is patent Respiratory effort is even, unlabored, Respiratory pattern is regular, symmetrical. GI: Abdomen is non-distended, Pt is actively vomiting bile, Bowel sounds present X 4 quads. Abdomen is tender to palpation in right lower quadrant Reports upper abdominal pain, nausea, vomiting. : No deficits noted. No signs and/or symptoms were reported regarding the genitourinary system. Derm: No deficits noted. No signs and/or symptoms reported regarding the dermatologic system. Musculoskeletal: No deficits noted. No signs and/or symptoms reported regarding the musculoskeletal system. Circulation, motion, and sensation intact. Range of motion: intact in all extremities. Historical: - Allergies: 06:08 Lorazepam; dd2 - PMHx: 06:08 CAD; Diabetes - IDDM; DVT; pulmonary embolus; Seizure; dd2 - PSHx: 06:08 Cholecystectomy; dd2 - Immunization history:: Adult Immunizations up to date. - Infectious Disease History:: Denies. - Social history:: Smoking status: Patient denies any tobacco usage or history of. - Family history:: not pertinent. Screenin:41 [facility] ED Fall Risk Assessment (Adult) History of falling in the last 3 months, dd2 including since admission No falls in past 3 months (0 pts) Confusion or Disorientation No (0 pts) Intoxicated or Sedated No (0 pts) Impaired Gait Yes (1 pt) Mobility Assist Device Used Yes (1 pt) Altered Elimination No (0 pt) Score/Fall Risk Level 0 - 2 = Low Risk Oriented to surroundings, Maintained a safe environment, Educated pt \T\ family on fall prevention, incl call for assistance when getting out of bed, Assessed \T\ reinforced patient's understanding of fall precautions, Hourly rounding (assess needs \T\ fall precautionary measures) done. Abuse screen: Denies threats or abuse. Nutritional screening: No deficits noted. Tuberculosis screening: No symptoms or risk factors identified. Assessment: 06:10 Reassessment: SEE TRIAGE ASSESSMENT FOR FULL ASSESSMENT. dd2 07:21 Reassessment: Pt requesting medication for restless legs, legs noted to be jerking ph while pt lying in bed, states that she takes Ropinirole at home, ERP notified, see MAR for orders. General: Appears in no apparent distress. comfortable, Behavior is cooperative, appropriate for age. Neuro: Level of Consciousness is awake, alert, obeys commands, Oriented to person, place, time, situation. Respiratory: Airway is patent Respiratory effort is even, unlabored, Respiratory pattern is regular, symmetrical. Derm: Skin is pink, warm \T\ dry. 10:54 Reassessment: Patient appears in no apparent distress at this time. D/C pending ph completion of IV antibiotics. Vital Signs: 06:04 BP 102 / 81; Pulse 72; Resp 16; Temp 98.1(O); Pulse Ox 97% on R/A; Weight 74.84 kg (R); dd2 07:21 BP 122 / 93; Pulse 86; Resp 18; Pulse Ox 98% on R/A; ph 10:54 BP 125 / 74; Pulse 83; Resp 18; Pulse Ox 100% on R/A; ph 11:59 BP 117 / 82; Pulse 86; Resp 18; Temp 97.9; Pulse Ox 98% on R/A; ph Matilde Coma Score: 06:10 Eye Response: spontaneous(4). Motor Response: obeys commands(6). Verbal Response: dd2 oriented(5). Total: 15. 06:17 Eye Response: spontaneous(4). Motor Response: obeys commands(6). Verbal Response: sp4 oriented(5). Total: 15. ED Course: 06:02 Patient arrived in ED. lg3 06:03 Nathaniel Jama MD is Attending Physician. al5 06:08 Triage completed. dd2 06:08 Arm band placed on right wrist. Patient placed in an exam room, on a stretcher, on dd2 pulse oximetry. 06:10 Patient has correct armband on for positive identification. Bed in low position. Call dd2 light in reach. Side rails up X2. Client placed on continuous cardiac and pulse oximetry monitoring. NIBP monitoring applied. Door closed. Noise minimized. Warm blanket given. Pillow given. Verbal reassurance given. 06:10 Patient maintains SpO2 saturation greater than 95% on room air. dd2 06:20 WILFRED VALERIO, RN is Primary Nurse. dd2 06:40 No provider procedures requiring assistance completed. Initial lab(s) drawn, by ky, dd2 sent to lab. EKG done, by ED staff, reviewed by Nathaniel Jama MD. Inserted saline lock: 20 gauge in right antecubital area, using aseptic technique. Blood collected. Flushed with 10 mL NS. 07:12 Attending Physician role handed off by Nathaniel Jama MD janneth 07:12 Jesus Elizabeth MD is Attending Physician. janneth 10:20 CT Abd/Pelvis - IV Contrast Only In Process Unspecified. EDMS 11:59 IV discontinued, intact, bleeding controlled, No redness/swelling at site. Pressure ph dressing applied. Administered Medications: 07:53 Discontinued: ns 0.9% 1000 ml IV at 250 ml/hr Per protocol; to be given as a bolus over janneth 60 minutes 06:40 Drug: Famotidine IVP 20 mg IVP once; dilute with 10 mL 0.9% NaCl; give over 2 minutes dd2 Route: IVP; Site: right antecubital; 07:00 Follow up: Response: No adverse reaction ph 06:40 Drug: NS 0.9% IV 1000 ml IV at 250 ml/hr Per protocol; to be given as a bolus over 60 dd2 minutes Route: IV; Rate: 250 ml/hr; Site: right antecubital; 12:01 Follow up: Response: No adverse reaction; IV Status: Order to discontinue infusion ph 06:41 Drug: TORadol - Ketorolac IVP 15 mg IVP once Route: IVP; Site: right antecubital; dd2 07:00 Follow up: Response: No adverse reaction ph 06:41 Drug: Ondansetron IVP 8 mg IVP once; over 2 minutes Route: IVP; Site: right antecubital;dd2 07:00 Follow up: Response: No adverse reaction ph 06:41 Drug: NS 0.9% IV 1000 ml IV at 1 bolus Per protocol; to be given as a bolus over 60 dd2 minutes Route: IV; Rate: 1 bolus; Site: right antecubital; 07:45 Follow up: Response: No adverse reaction; IV Status: Completed infusion; IV Intake: ph 1000ml 06:41 Drug: metoCLOPramide IVP 10 mg IVP once; over 1 to 2 minutes Route: IVP; Site: right dd2 antecubital; 07:00 Follow up: Response: No adverse reaction ph 07:20 Drug: Methocarbamol IVPB 1 grams IVPB once over 1 hrs; (mix in NS 100 mL) Route: IVPB; ph Infused Over: 1 hrs; Site: right antecubital; 08:20 Follow up: Response: No adverse reaction; IV Status: Completed infusion ph 08:08 Drug: NS 0.9% IV 1000 ml IV at 1000 ml once; to be given as a bolus over 60 minutes ph Route: IV; Rate: 1000 ml; Site: right antecubital; 09:10 Follow up: Response: No adverse reaction; IV Status: Completed infusion; IV Intake: ph 1000ml 08:23 Drug: Requip PO 2 mg PO once Route: PO; ph 12:01 Follow up: Response: No adverse reaction ph 10:06 Drug: Rocephin IV 1 grams IV at per protocol once; Given slow IV push per pharmacy ph instructions Route: IV; Rate: per protocol; Site: right antecubital; 12:00 Follow up: Response: No adverse reaction; IV Status: Completed infusion ph 10:06 Drug: Diazepam IVP 2 mg IVP once Route: IVP; Site: right antecubital; ph 12:00 Follow up: Response: No adverse reaction; Marked relief of symptoms ph 10:06 Drug: Diazepam IVP 2 mg IVP once Route: IVP; Site: right antecubital; ph 11:59 Follow up: Response: No adverse reaction ph Medication: 06:10 VIS not applicable for this client. dd2 Intake: 07:45 IV: 1000ml; Total: 1000ml. ph 09:10 IV: 1000ml; Total: 2000ml. ph Outcome: 10:42 Discharge ordered by . janneth 11:58 Discharged to home via wheelchair, with friend, ph 11:58 Condition: good 11:58 Discharge instructions given to patient, friend, Instructed on discharge instructions, follow up and referral plans. medication usage, Demonstrated understanding of instructions, follow-up care, medications, Prescriptions given X 2, 12:03 Patient left the ED. ph Signatures: Dispatcher [employer] EDMS Jesus Elizabeth MD MD cha Hall, Patricia RN RN ph Danitza Gonzalez RN RN lg3 Nathaniel Jama MD MD sp4 Britta Matamoros RN RN al5 WILFRED VALERIO RN RN dd2
[2024-05-23 12:26] VITALS: BP 117/82; TEMP 97.9; O2SAT 98
--- NOTE | 2024-05-24 13:06 | EKG ---
Test Date: 2024-05-23 Test Time: 06:33:24 Continuing Education Instructor: DORIS MEASUREMENT RESULTS: Intervals: Rate: 71 AR: 182 QRSD: 80 QT: 406 QTc: 441 [place]: P: 63 AR: 182 QRS: 19 T: 53 INTERPRETIVE STATEMENTS: Normal sinus rhythm Normal ECG Compared to ECG 01/03/2023 11:52:39 No significant changes Electronically Signed On 05-24-24 13:04:15 [employer] TECHNICAL OFFICER by Lalit Garcia
== END 2024-05-23 12:03 | disposition home or self-care (01) ==
LOC: ER 05:59
DX: N39.0 Urinary tract infection, site not specified (principal); R11.10 Vomiting, unspecified; E86.0 Dehydration; I25.10 Atherosclerotic heart disease of native coronary artery without angina pectoris; E11.9 Type 2 diabetes mellitus without complications; G25.81 Restless legs syndrome
CPT/HCPCS: 96365; 96367; 96361; 93005; 87088; 85025; 81001; 87086; 36415; 84484; 83690; 80053; 83880; 74177; 96375; 99285; 96366; Q9967; J2765; J3360; J2405; J2800; J7030; J0696

== ENCOUNTER 2024-09-20 11:59 | Emergency (ER) | payer MEDICARE, OTHER ==
[2024-09-20] MEDS ORDERED: NA CHLORIDE 0.9% 500 ML ONE (12:13)
[2024-09-20] MEDS ORDERED: FLUORESCEIN SODIUM 1 MG/WRAP ONE (12:39)
[2024-09-20] MEDS ORDERED: TETRACAINE HCL 0.5% 4ML OPTH ONE (12:39)
--- NOTE | 2024-09-20 13:06 | EDPHYS ---
Physician Documentation [facility] Name: Christina Isidro Age: 69 yrs Sex: Female : 1955 Arrival Date: 09/20/2024 Time: 11:59 Bed 8 Private MD: FORREST Physician Jesus Elizabeth HPI: 09/20 12:24 This 69 yrs old Female presents to ER via Wheelchair with complaints of Chemical sb4 Exposure In Eye. 12:24 patient states she woke up this morning and went to grab her eye drops but accidentally sb4 poured clear nail stateless in her eye. attempted to flush with water prior. complains of pain in left eye. Historical: - Allergies: 12:12 Lorazepam; hb - PMHx: 12:12 Diabetes - IDDM; DVT; pulmonary embolus; CAD; Seizure; hb - PSHx: 12:12 Cholecystectomy; hb - Immunization history:: Adult Immunizations up to date. - Infectious Disease History:: Denies. - Social history:: Smoking status: Patient denies any tobacco usage or history of. ROS: 12:24 Constitutional: Negative for fever, chills, and weight loss, sb4 12:24 Eyes: Positive for foreign body sensation, pain, visual disturbance, of the outer aspect of conjuctiva of right eye, iris of right eye and inner aspect of conjuctiva of right eye, 12:24 All other systems are negative, Exam: 12:24 Constitutional: This is a well developed, well nourished patient who is awake, alert, sb4 and in no acute distress. Head/Face: Normocephalic, atraumatic. ENT: Mucous membranes moist. Respiratory: No increased work of breathing, no retractions or nasal flaring. Skin: Warm, dry with normal turgor. Normal color with no rashes, no lesions, and no evidence of cellulitis. 12:24 Eyes: Periorbital structures: appear normal, Extraocular movements: intact throughout, Corneas: foreign body, on the left, nail stateless, 12:48 Eyes: Corneas: a fluorescein strip employed to appreciate the findings, eye examined sb4 with tetracaine and fluoroscein after irrigation. possible foreign body contents (nail stateless) vs ocular discharge collecting in the lower eyelid. removed with sterile q tip. patient tolerated well, Vital Signs: 12:10 BP 170 / 95; Pulse 87; Resp 16; Temp 97; Pulse Ox 100% on R/A; Weight 65.77 kg; Height hb 5 ft. 6 in. ; Pain 8/10; 12:10 Body Mass Index 23.40 (65.77 kg, 167.64 cm) hb 12:10 Pain Scale: Adult hb Visual Acuity: 13:07 Left Eye Visual acuity 20/50, Pupil size 3 mm, Normal, React To Light, Reactive To kc6 Accomodation; Right Eye Visual acuity 20/15, Pupil size 3 mm, Normal, React To Light, Reactive To Accomodation; Both Eyes Visual acuity 20/20; With Lenses; MDM: 12:04 Medical Screening Exam initiated sb4 12:50 Data reviewed: vital signs, nurses notes, and as a result, I will discharge patient. sb4 Counseling: I had a detailed discussion with the patient and/or guardian regarding the historical points, exam findings, and any diagnostic results supporting the discharge/admit diagnosis, the need for outpatient follow up, an opthalmologist, to return to the emergency department if symptoms worsen or persist or if there are any questions or concerns that arise at home. 09/20 12:10 Order name: Misc. Order: left eye irrigation via harsha lens; Complete Time: 12:23 sb4 09/20 12:37 Order name: Fluoresene Opth strip; Complete Time: 12:37 sb4 09/20 12:48 Order name: Visual Acuity; Complete Time: 13:07 sb4 Administered Medications: 12:23 Drug: NS 0.9% IV 500 ml 500 ml IV at 1 bolus once; harsha lens {Note: left eye.} kc6 Volume: 500 ml; Route: IV; Rate: 1 bolus; Site: Other; 12:37 Follow up: Response: No adverse reaction; IV Status: Completed infusion; IV Intake: kc6 500ml 12:49 Drug: Tetracaine Ophthalmic Drops 0.5 % 1 drops Ophthalmic once Route: Ophthalmic; kc6 Site: left eye; 13:08 Follow up: Response: No adverse reaction; Pain is decreased kc6 Disposition Summary: 09/20/24 13:06 Discharge Ordered Notes: Location: Home sb4 Problem: new sb4 Symptoms: have improved sb4 Condition: Stable sb4 Diagnosis - Foreign body in cornea, left eye - resolved sb4 Followup: sb4 - With: Bruce Carranza MD - When: 2 - 3 days - Reason: Recheck today's complaints, Re-evaluation by your physician Discharge Instructions: - Discharge Summary Sheet sb4 - Corneal Abrasion, [id number] sb4 - Eye Foreign Body, [id number] sb4 Forms: - Patient Portal Instructions sb4 - Leadership Thank You Letter sb4 Addendum: 09/22/2024 14:45 Co-signature as Attending Physician, Jesus Elizabeth MD I agree with the assessment and c steward plan of care. Signatures: Jesus Elizabeth MD MD cha Baxter, Heather, RN RN hb Carito Cordoba RN RN kc6 Eva Jackman PA-C PALuz ElenaC sb4
--- NOTE | 2024-09-20 13:06 | ER ---
Nurse's Notes [facility] Name: Christina Isidro Age: 69 yrs Sex: Female : 1955 Arrival Date: 09/20/2024 Time: 11:59 Bed 8 Private MD: Diagnosis: Foreign body in cornea, left eye-resolved Presentation: 09/20 12:10 Chief complaint: Thought she was putting eye drops in left eye, turned out to be clear hb nail ivorian. Attempted to flush eye at home but ivorian hardened, now c/o left eye pain 01/10. Coronavirus screen: At this time, the client does not indicate any symptoms associated with coronavirus-19. Ebola Screen: No symptoms or risks identified at this time. Initial Sepsis Screen: Does the patient meet any 2 criteria? No. Patient's initial sepsis screen is negative. Does the patient have a suspected source of infection? No. Patient's initial sepsis screen is negative. Risk Assessment: Do you want to hurt yourself or someone else? Patient reports no desire to harm self or others. Onset of symptoms was September 20, 2024. 12:10 Method Of Arrival: Wheelchair hb 12:10 Acuity: AARON 2 hb Historical: - Allergies: 12:12 Lorazepam; hb - PMHx: 12:12 Diabetes - IDDM; DVT; pulmonary embolus; CAD; Seizure; hb - PSHx: 12:12 Cholecystectomy; hb - Immunization history:: Adult Immunizations up to date. - Infectious Disease History:: Denies. - Social history:: Smoking status: Patient denies any tobacco usage or history of. Screenin:24 [facility] ED Fall Risk Assessment (Adult) History of falling in the last 3 months, kc6 including since admission No falls in past 3 months (0 pts) Confusion or Disorientation No (0 pts) Intoxicated or Sedated No (0 pts) Impaired Gait No (0 pts) Mobility Assist Device Used No (0 pt) Altered Elimination No (0 pt) Score/Fall Risk Level 0 - 2 = Low Risk Oriented to surroundings, Maintained a safe environment. Abuse screen: Denies threats or abuse. Denies injuries from another. Nutritional screening: No deficits noted. Tuberculosis screening: No symptoms or risk factors identified. Assessment: 12:24 General: Appears in no apparent distress. comfortable, well groomed, well developed, kc6 Behavior is calm, cooperative, appropriate for age. Pain: Complains of pain in left eye Pain does not radiate. Quality of pain is described as burning, Pain began suddenly, Is continuous. Neuro: Level of Consciousness is awake, alert, obeys commands, Oriented to person, place, time, situation, Appropriate for age Reports blurred vision in left eye. Cardiovascular: Capillary refill < 3 seconds. Respiratory: Airway is patent Trachea midline Respiratory effort is even, unlabored, Respiratory pattern is regular, symmetrical. GI: No signs and/or symptoms were reported involving the gastrointestinal system. : No signs and/or symptoms were reported regarding the genitourinary system. EENT: Sclera/Cornea are reddened in left eye. Derm: No signs and/or symptoms reported regarding the dermatologic system. Skin is intact, is healthy with good turgor, Skin is pink, warm \T\ dry. Musculoskeletal: No signs and/or symptoms reported regarding the musculoskeletal system. Circulation, motion, and sensation intact. Range of motion: intact in all extremities. 13:18 Reassessment: Patient appears in no apparent distress at this time. No changes from kc6 previously documented assessment. Patient and/or family updated on plan of care and expected duration. Pain level reassessed. Patient is alert, oriented x 3, equal unlabored respirations, skin warm/dry/pink. Patient states feeling better. Patient states symptoms have improved. Vital Signs: 12:10 BP 170 / 95; Pulse 87; Resp 16; Temp 97; Pulse Ox 100% on R/A; Weight 65.77 kg; Height hb 5 ft. 6 in. ; Pain 8/10; 12:10 Body Mass Index 23.40 (65.77 kg, 167.64 cm) hb 12:10 Pain Scale: Adult hb Visual Acuity: 13:07 Left Eye Visual acuity 20/50, Pupil size 3 mm, Normal, React To Light, Reactive To kc6 Accomodation; Right Eye Visual acuity 20/15, Pupil size 3 mm, Normal, React To Light, Reactive To Accomodation; Both Eyes Visual acuity 20/20; With Lenses; ED Course: 12:02 Patient arrived in ED. sj2 12:03 Eva Jackman PA-C is PHCP. sb4 12:03 Jesus Elizabeth MD is Attending Physician. sb4 12:10 Carito Cordoba, RN is Primary Nurse. kc6 12:12 Triage completed. hb 12:12 Arm band placed on. hb 12:23 Eye irrigation of left eye w/ Harsha lens IV tubing with 500 ml normal saline, Patient kc6 tolerated well. 12:24 Patient has correct armband on for positive identification. Bed in low position. Call kc6 light in reach. Side rails up X 1. Adult w/ patient. Pulse ox on. NIBP on. Door closed. Noise minimized. Lights dimmed. Pillow given. Verbal reassurance given. 12:24 Patient maintains SpO2 saturation greater than 95% on room air. kc6 12:49 Assist provider with eye exam of left eye. using fluorescein stain, Performed by Eva Jackman PA-C Patient tolerated well. 13:06 Bruce Carranza MD is Referral Physician. sb4 13:18 Patient did not have IV access during this emergency room visit. kc6 Administered Medications: 12:23 Drug: NS 0.9% IV 500 ml 500 ml IV at 1 bolus once; harsha lens {Note: left eye.} kc6 Volume: 500 ml; Route: IV; Rate: 1 bolus; Site: Other; 12:37 Follow up: Response: No adverse reaction; IV Status: Completed infusion; IV Intake: kc6 500ml 12:49 Drug: Tetracaine Ophthalmic Drops 0.5 % 1 drops Ophthalmic once Route: Ophthalmic; kc6 Site: left eye; 13:08 Follow up: Response: No adverse reaction; Pain is decreased kc6 Medication: 13:18 VIS not applicable for this client. kc6 Intake: 12:37 IV: 500ml; Total: 500ml. kc6 Outcome: 13:06 Discharge ordered by . sb4 13:18 Discharged to home ambulatory, with friend, [email or web address] 13:18 Condition: improved 13:18 Discharge instructions given to patient, friend, Instructed on discharge instructions, follow up and referral plans. Demonstrated understanding of instructions, follow-up care, 13:18 Patient left the ED. kc6 Signatures: Venus Mata RN RN Carito Cordoba, MARIANNE RN Eva Blackman PA-C PA-C sb4 Oracio Hunt sj2 Corrections: (The following items were deleted from the chart) 12:13 12:10 Chief complaint: Thought she was putting eye drops in left eye, turned out to be hb clear nail ivorian. hb
[2024-09-20 16:06] VITALS: BP 170/95; TEMP 97; O2SAT 100
== END 2024-09-20 13:18 | disposition home or self-care (01) ==
LOC: ER 11:59
DX: T15.02XA Foreign body in cornea, left eye, initial encounter (principal)
CPT/HCPCS: 99284; 65220; J7040